=== PATIENT | female | born 1945 | race Caucasian/White ===

== ENCOUNTER 2022-12-04 11:36 | Outpatient (OUT) | payer MEDICARE, SELFPAY ==
[2022-12-04 12:27] LABS: Hematocrit 44.1 % (36.0-48.0); Hemoglobin 14.3 g/dL (12.0-16.0); Mean Corpuscular HGB Conc 32.4 g/dL (29.9-35.2); Mean Corpuscular Hemoglobin 29.9 pg (26.7-34.0); Mean Corpuscular Volume 92.3 fL (81.0-99.0); Mean Platelet Volume 10.7 fL (9.5-13.5); Platelet Count 165 10^3/uL (150-450); Red Blood Count 4.78 10^6/uL (4.20-5.40); Red Cell Distribution Width 13.1 % (11.0-15.0); White Blood Count 5.6 10^3/uL (4.0-11.0)
[2022-12-04 13:13] LABS: Bilirubin Urine NEGATIVE (NEGATIVE); Blood Urine MODERATE (NEGATIVE); Clarity Urine CLEAR (CLEAR); Color Urine YELLOW (YELLOW); Glucose Urine UA NEGATIVE (NEGATIVE); Ketones Urine NEGATIVE (NEGATIVE); Leukocyte Esterase Urine TRACE (NEGATIVE); Nitrite Urine NEGATIVE (NEGATIVE); Protein Urine NEGATIVE (NEG/TRACE); Urobilinogen Urine 0.2 EU/dL (0.2-1.0)
[2022-12-04 13:23] LABS: Bacteria Urine NONE SEEN #/HPF (NONE SEEN)
[2022-12-04 13:24] LABS: Mucus Urine NONE SEEN (NONE SEEN); Squamous Epithelial Cell Urine FEW #/LPF (NONE/RARE)
[2022-12-04 15:34] LABS: Albumin Level 3.9 g/dL (3.4-5.0); Anion Gap 12.6; BUN Creatinine Ratio 11.6; Calcium 9.3 mg/dL (8.5-10.1); Carbon Dioxide 29.3 mmol/L (21.0-32.0); Chloride 102 mmol/L (98-107); Estimated GFR (African America 57 (>=60); Estimated GFR (Non-African Ame 47 (>=60); Glucose 96 mg/dL (74-106); Phosphorus 3.5 mg/dL (2.6-4.7); Potassium 3.9 mmol/L (3.5-5.1); Sodium 140 mmol/L (136-145); Uric Acid 6.2 mg/dL (2.6-6.0)
[2022-12-05 11:09] LABS: PTH, Intact 37 pg/mL (15-65)
== END 2022-12-04 11:37 | disposition home or self-care (01) ==
LOC: LAB 11:44
PROVIDERS: PCP Family Medicine; Visit Provider Internal Medicine
DX: N18.30 Chronic kidney disease, stage 3 unspecified (principal); Q61.02 Congenital multiple renal cysts; N20.0 Calculus of kidney; I12.9 Hypertensive chronic kidney disease with stage 1 through stage 4 chronic kidney disease, or unspecified chronic kidney disease; N25.81 Secondary hyperparathyroidism of renal origin; R31.29 Other microscopic hematuria
CPT/HCPCS: 36415; 80069; 81001; 82306; 83735; 83970; 84550; 85027

== ENCOUNTER 2023-02-27 07:12 | Outpatient (RCR) | payer MEDICARE, SELFPAY ==
--- NOTE | 2023-02-20 08:43 | CR1_ITS ---
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
== END 2023-03-01 17:04 | disposition home or self-care (01) ==
LOC: CR 07:12
PROVIDERS: PCP Family Medicine; Visit Provider Internal Medicine
DX: Z95.5 Presence of coronary angioplasty implant and graft (principal)
CPT/HCPCS: 93798

== ENCOUNTER 2023-03-18 13:01 | Outpatient (OUT) | payer MEDICARE, SELFPAY ==
--- OUTSIDE RECORDS SUMMARY | 2023-03-18 13:12 | XMS_ITS | CCD ---
Author Name Unknown Address [email or web address] [place] [address] Organization [facility] Care Team Providers Care Logistics Analytics Manager Name Role Phone Jani Aguilera Unavailable Nicole Vargas Primary Care Provider China Noland Unavailable HARINI ROSA Referring Unavailable SAM, NICOLE MARTINEZ Primary Care Unavailable RUTH ANN GUTIERRES Attending Unavailable HARINI, ROSA Referring Unavailable SAM, NICOLE MARTINEZ Primary Care Unavailable SAM, DR RIVERA Primary Care Unavailable SAM, DR RIVERA Consulting Unavailable SAM, DR RIVERA Attending Unavailable SAM, DR RIVERA Admitting Unavailable ZIEBER, DR PEPPER Fuller Consulting Unavailable NADERER, DR ARY Jauregui Attending Unavailable NADERER, DR ARY Jauregui Admitting Unavailable NADERER, DR ARY Jauregui Consulting Unavailable SAM, DR RIVERA Primary Care Unavailable NEWATIA, TAMIE Consulting Unavailable DIAB ., NETTE Consulting Unavailable NEFCY, PETER Consulting Unavailable SHELLIE JENNINGS Attending Unavailable SHELLIE JENNINGS Admitting Unavailable SAM, DR RIVERA Primary Care Unavailable SHELLIE JENNINGS Consulting Unavailable SAM, DR RIVERA Consulting Unavailable SAM, DR RIVERA Attending Unavailable SAM, DR RIVERA Admitting Unavailable SAM, DR RIVERA Primary Care Unavailable HARINI, ROSA Admitting Unavailable VITORAMSALVADOR, ROSA Attending Unavailable ZIEBER, DR PEPPER Fuller Consulting Unavailable SAM, DR RIVERA Primary Care Unavailable HARINI, ROSA Consulting Unavailable Sam, MD Nicole Napier Primary Care Provider JOHANNA Jennings Attending Provider DO Tamiko Zhou Referring Provider Nicole Vargas MD Primary Care Provider Mary Dasilva RN Unavailable Unavailable Provider, Ordering Unavailable MD Nicole Vargas Primary Care Provider [phone] JOHANNA Jennings Attending Provider DO Tamiko Zhou Referring Provider MD Nani Calloway Attending Provider NANI CALLOWAY Attending Unavailable SAM, RUGEN MABALAY Primary Care Unavailable JACQUELINE CAMPOS Attending Unavailable NIRAJ ZHOU Referring Unavailable SAM, RUGEN MABALAY Primary Care Unavailable CALLOWAYNANI Referring Unavailable SAM, RUGEN MABALAY Primary Care Unavailable Mast, Wan Unavailable Nani Calloway Attending Unavailable Sam, Rugen M Primary Care Unavailable Calloway, Nani Admitting Unavailable [place], Rugen M Primary Care Unavailable Jacqueline Ellis Admitting Unavailable Jacqueline Ellis Attending Unavailable [place], Rugen M Primary Care Unavailable CallowayNani bass Admitting Unavailable Nani Calloway Attending Unavailable Shellie Jennings Attending Unavailable Sam, Rugen M Primary Care Unavailable Tamiko Zhou Referring Unavailable Shellie Jennings Admitting Unavailable BERNADINE DIAZ Attending Unavailable Allergies Allergy Classification Reported Allergen(s) Allergy Type Date of Onset Reaction(s) Facility (7 sources) Ibuprofen Drug Allergy Unknown [facility] Other (14 sources) pregabalin; 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: [PREGABALIN] Drug Allergy 1 Mental Status Change, Confusion [facility] (6 sources) Ibuprofen; 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: [IBUPROFEN] Drug Allergy 7 Intolerance, Other [facility] (3 sources) rofecoxib; 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: [ROFECOXIB] Drug Allergy 7 Swelling [facility] (6 sources) Sulfonamides (Antibiotic); 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: [SULFA (SULFONAMIDE ANTIBIOTICS)] Drug Allergy 7 Vomiting, GI Upset [facility] (1 source) Adhesive agent Drug allergy (disorder) 7 [facility] (1 source) Ibuprofen Drug Allergy 7 [facility] (1 source) pregabalin Drug Allergy 1 [facility] (1 source) rofecoxib Drug Allergy 6 [facility] (1 source) Trimethoprim Drug Allergy 1 [facility] (4 sources) Adhesive Tape Drug allergy rash [facility] Other (1 source) pregabalin Drug Allergy 3 [facility] Medications Current Medications Medication Drug Class(es) Dates Sig (Normalized) Sig (Original) acetaminophen 500 mg oral tablet (8 sources) Start: 01-15-2023 take 1 tablet by mouth once daily Acetaminophen (Tylenol Extra Strength) 500 mg Tablet Active 500 MG PO Daily January 15, 2023 12:00am take 2 tablets by mo uth every eight hours Acetaminophen ER 650 MG 2 tablets as nee ded Orally every 8 hrs Not-Taking/PRN take 2 tablets by mo uth every eight hours as needed Acetaminophen ER 650 MG 2 tablets as nee ded Orally every 8 hrs Active [id number] 200 actuat albuterol 0.09 mg/actuat metered dose inhaler (3 sources) beta2-Adrenergic Agonist Start: 05-31-2022 take 2 puff(s) by inhalation every four to six hours as needed Albuterol Sulfate HFA 108 (90 Base) MCG/ACT 2 puffs as needed Inhalation every 4-6 hours for 14 days May, Active Start: 01-02-2019 take 2 puff(s) by mo uth every six hours as needed VENTOLIN HFA 90 mcg/actuation inhaler INHALE 2 PUFFS BY MOUTH EVERY 6 HOURS NEEDED 5 01/02/2019 Active Comment on above: INHALE 2 PUFFS BY MO UTH EVERY 6 HOURS NEEDED alendronic acid 70 mg oral tablet (7 sources) Bisphosphonate Start: 3 take 70 mg by mouth every week Alendronate Active 70 MG PO every week January 15, 2023 12:00am s Start: 05-15-2021 End: 05-15-2022 take 1 tablet by mouth every week alendronate (FOSAMAX) 70 mg tablet Take 70 mg by mouth one time a week. 0 08/08/2021 Active take 75 mL by mouth in the morning alendronate (Fosamax) 70 mg/75 mL solution Take 75 mL (70 mg) by mouth every 7 days. Take in the morning with a full glass of water, on an empty stomach, and do not take anything else by mouth or lie down for the next 30 min. 0 Active Comment on above: Take 70 mg by mouth one time a week. aspirin 81 mg chewable tablet (14 sources) Platelet Aggregation Inhibitor, Nonsteroidal Anti-inflammatory Drug Start: 01-18-2023 take 1 tablet by mouth once daily Aspirin (Children's Aspirin) 81 mg Tablet,Chewable Active 81 MG PO Daily 0 January 18, 2023 12:00am Start: 01-15-2023 End: 01-22-2023 take 1 tablet by mouth once daily in the morning Aspirin (Елена Aspirin) 325 mg Tablet Discontinued 325 MG PO Every morning January 15, 2023 12:00am January 18, 2023 10:56am take 1 tablet by flori th once daily aspirin 81 mg EC tablet Take 1 tablet (81 mg) by mouth once daily. 0 Active Comment on above: Take 325 mg by mouth once daily. benzonatate 100 mg oral capsule (2 sources) Non-narcotic Antitussive Start: 3 take 1 capsule by mouth every eight hours Tessalon Perles 100 MG 1 capsule as needed Orally Three times a day for 7 days May, Active carvedilol 6.25 mg oral tablet (12 sources) alpha-Adrenergic Stas, beta-Adrenergic Stas Start: 3 take 6.125 mg by mouth twice daily Carvedilol Active 6.125 MG PO Twice daily January 15, 2023 12:00am Start: 04-29-2019 take 1 tablet by flori th twice daily carvedilol (COREG) 6.25 mg tablet Take 6.25 mg by mouth twice daily. 0 04/29/2019 Active Comment on above: Take 6.25 mg by mout h twice daily. cetirizine hydrochloride 10 mg oral tablet (8 sources) Histamine-1 Receptor Antagonist Start: 01-16-20 take 1 tablet by mouth once daily Cetirizine (Zyrtec) 10 mg Tablet Active 10 MG PO Daily January 15, 2023 12:00am 12 hr cetirizine hydrochloride 5 mg / pseudoephedrine hydrochloride 120 mg extended release oral tablet (2 sources) alpha-Adrenergic Agonist, Histamine-1 Receptor Antagonist take 1 tablet by mouth twice daily cetirizine-pseudoephed rine (ZyrTEC-D) 5-120 mg 12 hr tablet Take 1 tablet by mouth 2 times a day. 0 Active cholecalciferol 0.125 mg oral tablet (8 sources) Vitamin D Start: 01-16-20 take 1 tablet by mouth once daily Cholecalciferol (Vitamin D3) (Vitamin D3) 125 mcg (5,000 unit) Tablet Active 125 MCG PO every day at noon January 15, 2023 12:00am Vitamin D3 125 M CG (5000 UT) as directed Orally Active Vitamin D3 125 M CG (5000 UT) as directed Orally Active DULoxetine 60 mg delayed release oral capsule (12 sources) Serotonin and Norepinephrine Reuptake Inhibitor Start: 01-15-2023 take 1 capsule by mouth once daily at bedtime Duloxetine (Cymbalta) 60 mg capsule,delayed release(DR/EC) Active 60 MG PO Daily at bedtime January 15, 2023 12:00am Comment on above: Take 60 mg by mouth once daily. folic acid 1 mg oral tablet (12 sources) Start: 01-15-2023 take 1 mg by mouth once daily in the morning Folic Acid Active 1 MG PO Every morning January 15, 2023 12:00am Comment on above: Take 1 mg by mouth once daily. letrozole 2.5 mg oral tablet (14 sources) Aromatase Inhibitor Start: 01-15-2023 take 2.5 mg by mouth once daily in the morning Letrozole Active 2.5 MG PO Every morning January 15, 2023 12:00am Start: 01-24-2021 End: 05-15-2022 take 1 tablet by mouth once daily letrozole (FEMARA) 2.5 mg tablet Take 1 tablet by mouth once daily. 90 tablet 3 05/15/2022 Active Comment on above: Take 1 tablet by flori th once daily Take 1 tablet by flori th once daily. levothyroxine sodium 0.112 mg oral tablet (13 sources) l-Thyroxine Start: take 112 ug by mouth once daily in the morning Levothyroxine Active 112 MCG PO Every morning January 15, 2023 12:00am take 1 tablet by flori th once daily in the morning Levothyroxine Sodium 112 MCG 1 tablet in the morning on an empty stomach Orally Once a day Active levothyroxine (T irosint) 112 mcg capsule Take by mouth once daily in the morning. Take before meals. 0 Active End: 01-22-2023 take 1 capsule by mouth once daily before mealtime levothyroxine (Tirosint) 25 mcg capsule Take 1 capsule (25 mcg) by mouth once daily in the morning. Take before meals. 0 01/22/2023 Discontinued (Other) Comment on above: Take 112 mcg by mout h once daily. montelukast 10 mg oral tablet (12 sources) Leukotriene Receptor Antagonist Start: 07-05-19 take 10 mg by mouth once daily at bedtime Montelukast Active 10 MG PO Daily at bedtime January 15, 2023 12:00am Comment on above: Take 10 mg by mouth daily at bedtime. nitroglycerin 0.4 mg sublingual tablet (4 sources) Nitrate Vasodilator Start: 01-19-20 nitroglycerin (Nitrostat) 0.[address] 1 tablet (0.4 mg) under the tongue every 5 minutes if needed. 0 01/18/2023 Active Nitroglycerin 0. 4 MG as directed Sublingual Active [place] 3-6-9 - (3 sources) [place] 3-6-9 - as directed Orally Active omega-3 acid ethyl esters (long term) 1000 mg oral capsule (2 sources) omega-3 acid eth yl esters (Lovaza) 1 gram capsule Take 1 capsule (1 g) by mouth once daily. 0 Active [place]-3 Fatty Acids (1 source) Start: 01-16-20 take 1000 mg by mouth twice daily [place]-3 Fatty Acids Active 1000 MG PO Twice daily January 15, 2023 12:00am predniSONE 20 mg oral tablet (1 source) Start: 06-01-19 take 1 tablet by mouth every twelve hours prednisone 20 MG 1 tablet Orally Twice a day for 5 days May, Active ramipril 10 mg oral capsule (12 sources) Angiotensin Converting Enzyme Inhibitor Start: 01-16-20 take 10 mg by mouth once daily Ramipril Active 10 MG PO every day at noon January 15, 2023 12:00am Comment on above: Take 10 mg by mouth once daily. rosuvastatin calcium 20 mg oral tablet (12 sources) HMG-CoA Reductase Inhibitor Start: 05-04-19 take 20 mg by mouth once daily at bedtime Rosuvastatin Active 20 MG PO Daily at bedtime January 15, 2023 12:00am Comment on above: Take 20 mg by mouth once daily. For 30 days ticagrelor 90 mg oral tablet (4 sources) Start: 01-19-20 take 1 tablet by mouth twice daily Ticagrelor (Brilinta) 90 mg Tablet Active 90 MG PO Twice daily 180 90 January 18, 2023 12:00am traMADol hydrochloride 50 mg oral tablet (12 sources) Opioid Agonist Start: 01-16-20 take 50 mg by mouth four times daily Tramadol Active 50 MG PO Four times daily January 15, 2023 12:00am take 1 tablet by flori th every six hours as needed traMADol (Ultram) 50 mg tablet Take 1 tablet (50 mg) by mouth every 6 hours if needed for severe pain (7 - 10). 0 Active Comment on above: Take 50 mg by mouth as needed. Completed/Discontinued Medications Medication Drug Class(es) Dates Sig (Normalized) Sig (Original) amitriptyline hydrochloride 10 mg oral tablet (2 sources) Tricyclic Antidepressant Start: 10-30-2016 amitriptyline (ELAVIL) 10 mg tablet Indications: Malignant neoplasm of right female breast, unspecified estrogen receptor status, unspecified site of breast (HCC) Take 10 mg by mouth. 0 10/30/2016 Active Comment on above: Take 10 mg by mouth. amoxicillin 500 mg oral capsule (9 sources) Penicillin-class Antibacterial Amoxicillin 500 MG 4 capsules Orally BEFORE DENTAL PROCEDURE Not-Taking/PRN ASCORBIC ACID/MULTIVIT-MIN (EMERGEN-C ORAL) (2 sources) ASCORBIC ACID/MULTIVIT-MIN (EMERGEN-C ORAL) Take by mouth. 0 Active Comment on above: Take by mouth. Baclofen (2 sources) gamma-Aminobutyric Acid-ergic Agonist BACLOFEN ORAL Take by mouth. 0 Active Comment on above: Take by mouth. cholecalciferol, vitamin D3, (VITAMIN D3 ORAL) (4 sources) Start: 12-01-2020 cholecalciferol, vitamin D3, (VITAMIN D3 ORAL) Refills(s) 0 0 12/01/2020 Active take 500 [IU] by mouth once emi y cholecalciferol, vitamin D3, (VITAMIN D3 ORAL) Take 500 Units by mouth once daily. 0 Active Comment on above: Refills(s) 0 cyclobenzaprine hydrochloride 10 mg oral tablet (2 sources) Muscle Relaxant Start: 07-11-2018 cyclobenzaprine (FLEXERIL) 10 mg tablet Take 10 mg by mouth as needed. 3 07/11/2018 Active Comment on above: Take 10 mg by mouth as needed. furosemide 20 mg oral tablet (4 sources) Loop Diuretic Start: 03-15-2020 furosemide (LASIX) 20 mg tablet take 1 tablet by flori th every twenty-four hours Furosemide 40 MG 1 tablet Orally Once a day Active Magnesium (2 sources) MAGNESIUM ORAL T delia by mouth. 0 Active Comment on above: Take by mouth. oxaprozin 600 mg oral tablet (2 sources) Nonsteroidal Anti-inflammatory Drug Start: 0 take 1 tablet by mouth twice daily oxaprozin (DAYPRO) 600 mg tablet Take 600 mg by mouth twice daily. 0 04/22/2019 Active Comment on above: Take 600 mg by mouth twice daily. Potassium (2 sources) POTASSIUM ORAL T delia by mouth. 0 Active Comment on above: Take by mouth. Probiotic Acidophilus - (7 sources) Probiotic Acidophilus - as directed Orally Not-Taking/PRN Probiotic Acidop hilus - as directed Orally Active saccharomyces boulardii 250 mg oral capsule (2 sources) End: 01-22-2023 take 1 capsule by mouth once daily saccharomyces boulardii (Florastor) 250 mg capsule Take 1 capsule (250 mg) by mouth once daily. 0 01/22/2023 Discontinued (Other) Problems Active Problems Problem Classification Problem Date Documented Date Episodic/Chronic Acute bronchitis (1 source) Acute bronchitis, unspecified; 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: [ACUTE BRONCHITIS UNSPECIFIED] Onset: 3 Episodic Administrative/social admission (1 source) Persons encountering health services in other specified circumstances Episodic Calculus of urinary tract (10 sources) Kidney stone; 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: [Calculus of kidney] Onset: 3 Episodic Cancer of breast (3 sources) Malignant neoplasm of female breast; 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: [Malignant neoplasm of unspecified site of right female breast] Onset: 7 04-02-2016 Chronic Cancer of breast (3 sources) History of malignant neoplasm of breast; 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: [Personal history of malignant neoplasm of breast] Onset: 9 03-28-2018 Episodic Chronic kidney disease (7 sources) Chronic kidney disease stage 3; 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: [Chronic kidney disease, stage 3 unspecified] Chronic Chronic obstructive pulmonary disease and bronchiectasis (6 sources) Acute exacerbation of chronic obstructive airways disease; 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: [Chronic obstructive pulmonary disease with (acute) exacerbation] Chronic Chronic obstructive pulmonary disease and bronchiectasis (4 sources) Bronchitis, not specified as acute or chronic; 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: [BRONCHITIS NOT SPEC ACUTE/CHRON] Onset: 3 Episodic Congestive heart failure; nonhypertensive (1 source) Acute systolic (congestive) heart failure; 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: [ACUTE SYSTOLIC HEART FAILURE] Onset: 3 Chronic Coronary atherosclerosis and other heart disease (20 sources) Atherosclerotic heart disease of [place] coronary artery without angina pectoris; 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: [Angina pectoris] Onset: 3 12-25-2022 Chronic Diabetes mellitus without complication (1 source) Impaired fasting glucose; 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: [IMPAIRED FASTING GLUCOSE] Onset: 3 Episodic Disorders of lipid metabolism (13 sources) Pure hypercholesterolemia, unspecified; 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: [Pure hyperglyceridemia] Onset: 3 12-25-2022 Chronic Essential hypertension (9 sources) Benign essential hypertension; 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: [Essential (primary) hypertension] Onset: 3 12-25-2022 Chronic Genitourinary congenital anomalies (9 sources) Cyst of kidney; 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] Chronic Genitourinary symptoms and ill-defined conditions (2 sources) Other microscopic hematuria Episodic Hypertension with complications and secondary hypertension (14 sources) Chronic kidney disease due to hypertension; 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: [Hypertensive chronic kidney disease with stage 1 through stage 4 chronic kidney disease, or unspecified chronic kidney disease] Onset: 3 Chronic Immunizations and screening for infectious disease (7 sources) Contact with and (suspected) exposure to other viral communicable diseases; 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: [Encounter for immunization] Episodic Malaise and fatigue (1 source) Other fatigue; 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: [OTHER FATIGUE] Onset: 3 Episodic Menopausal disorders (1 source) Hormone replacement therapy; 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: [HORMONE REPLACEMENT THERAPY] Onset: 3 Episodic Open wounds of head; neck; and trunk (1 source) Laceration without foreign body of left ear, initial encounter Episodic Osteoarthritis (4 sources) Unspecified osteoarthritis, unspecified site; 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: [Degenerative joint disease involving multiple joints] Onset: 3 Chronic Other aftercare (1 source) Other prison (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; 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: [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 THERAPY] Onset: 3 Episodic Other bone disease and musculoskeletal deformities (1 source) Osteopenia; 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: [Other specified disorders of bone density and structure, unspecified site] Episodic Other circulatory disease (1 source) History of angioplasty; 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: [Peripheral vascular angioplasty status with implants and grafts] 01-22-2023 Chronic Other circulatory disease (2 sources) Peripheral vascular angioplasty status with implants and grafts; 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: [Peripheral vascular angioplasty status with implants and grafts] Onset: 3 Chronic Other connective tissue disease (1 source) Fibromyalgia; 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: [FIBROMYALGIA] Onset: 3 Episodic Other connective tissue disease (2 sources) Pain in right leg; 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: [Pain in right leg] Onset: 3 Episodic Other connective tissue disease (2 sources) Other specified soft tissue disorders; 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: [Other specified soft tissue disorders] Onset: 3 Episodic Other connective tissue disease (1 source) Pain in right lower limb; 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: [Pain in right leg] Onset: 3 Episodic Other diseases of kidney and ureters (7 sources) Secondary hyperparathyroidism; 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: [Secondary hyperparathyroidism of renal origin] Chronic Other diseases of kidney and ureters (2 sources) Secondary hyperparathyroidism of renal origin Chronic Other gastrointestinal disorders (1 source) Irritable bowel syndrome without diarrhea; 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: [IRRITABLE BOWEL SYND W/O DIARRHEA] Onset: 3 Chronic Other hereditary and degenerative nervous system conditions (1 source) Degenerative disease of nervous system, unspecified; 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: [DEGENERATIVE DZ NERVOUS SYSTEM UNS] Onset: 2 Chronic Other lower respiratory disease (1 source) Shortness of breath; 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: [SHORTNESS OF BREATH] Onset: 3 Episodic Other nutritional; endocrine; and metabolic disorders (4 sources) Body mass index 40+ - severely obese; 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: [Morbid (severe) obesity due to excess calories] Onset: 7 07-17-2016 Chronic Other nutritional; endocrine; and metabolic disorders (2 sources) Body mass index (BMI) 40.0-44.9, adult; 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: [Body mass index (BMI) 40.0-44.9, adult ([facility])] Onset: 3 Chronic Other screening for suspected conditions (not mental disorders or infectious disease) (17 sources) Patient encounter status; 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: [Encounter for other screening for malignant neoplasm of breast] Onset: 3 Episodic Residual codes; unclassified (1 source) Acquired absence of other genital organ(s); 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: [ACQUIRED ABSENCE OTH GENITAL ORGANS] Onset: 3 Episodic Residual codes; unclassified (1 source) Acquired absence of other specified parts of digestive tract; 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: [ACQ ABSENCE OTH PART DIGESTV TRACT] Onset: 3 Episodic Residual codes; unclassified (1 source) Acquired absence of both cervix and uterus; 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: [ACQUIRED ABSENCE BOTH CERVIX AND UTERUS] Onset: 3 Episodic Residual codes; unclassified (1 source) History of cardiac catheterization; 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: [Other specified postprocedural states] 01-18-2023 Episodic Residual codes; unclassified (2 sources) Other specified postprocedural states; 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: [Other postprocedural status] Onset: 3 01-18-2023 Episodic Residual codes; unclassified (2 sources) Edema, unspecified; 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: [Edema, unspecified] Onset: 3 Episodic Screening and history of mental health and substance abuse codes (1 source) Personal history of nicotine dependence; 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: [PERSONAL HISTORY OF NICOTINE DEPEND] Onset: 3 Episodic Thyroid disorders (2 sources) Thyrotoxicosis, unspecified without thyrotoxic crisis or storm; 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: [Hypothyroidism, unspecified] Onset: 3 Chronic Unclassified (1 source) CONTACT W/AND (SUSP) EXPOS COVID-19; 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: [CONTACT W/AND (SUSP) EXPOS COVID-19] Onset: 3 Unclassified (1 source) COUGH, UNSPECIFIED; 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: [COUGH, UNSPECIFIED] Onset: 3 Unclassified (1 source) Encounter for preprocedural laboratory examination; 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: [Encounter for preprocedural laboratory examination] Onset: 3 Past or Other Problems Problem Classification Problem Date Documented Da te Episodic/Chronic Chronic kidney disease (4 sources) Chronic kidney disease; 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: [CHRONIC KIDNEY DISEASE STAGE 3A] Onset: 06-13-2022 Nonspecific chest pain (5 sources) Chest pain, unspecified; 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: [CHEST PAIN UNSPECIFIED] Onset: 06-10-2022 Episodic Residual codes; unclassified (4 sources) Family history of ischemic heart disease and other diseases of the circulatory system; 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: [FAM HX ISCHEMIC HRT DZ OTH DZ CIRC] Onset: 10-31-2021 Episodic Unclassified (2 sources) Onset: 12-25-2022 Resolved: 01-22-2023 12-25-2022 Results Test Name Value Interpretation Reference Range Facility US venous duplex LE RTon US venous duplex LE RT [facility] [place] [address] Ultrasound Report Signed Patient: Katarina Camara MR#: [id number] 51 : 1945 Acct:[id number] Age/Sex: 77 / F ADM Date: 02/05/23 Loc: Room: Type: [facility] Attending Dr: Jacqueline Campos APRN Ordering Provider: Jacqueline Campos APRN Date of Service: 02/05/23 US/US venous duplex LE RT: R60.9, Z95.820, M79.604, M79.089 Copies to: Jacqueline Campos APRN RIGHT LOWER EXTREMITY VENOUS DUPLEX INDICATION: Pain and swelling in the right leg Unilateral right lower extremity venous duplex Doppler study was obtained utilizing B-mode, color- flow and spectral Doppler. FINDINGS: The right common femoral, femoral, and popliteal veins showed adequate compressibility, color-flow and augmentation. The right posterior tibial and peroneal veins were compressible, as well as proximal greater saphenous vein. The contralateral left common femoral vein was compressible with color-flow and augmentation. Technologist worksheet states that the patient had recent cardiac catheterization in the right groin. There is some hematoma noted anterior to the right common femoral artery with no evidence of pseudoaneurysm at this time. US/US venous duplex LE RT IMPRESSION: NO EVIDENCE OF DEEP VENOUS THROMBOSIS IN THE RIGHT LOWER EXTREMITY. NO SUPERFICIAL THROMBOPHLEBITIS WAS NOTED. Impression dictated by: Jose Eduardo Vallejo M.D.02/06/2023 9:55 AM Dictation Location: [place] [address] Tech: Jahaira Michelle Transcribed By: ITALO 02/06/23954 Dictated By: Jose Eduardo Vallejo MD 02/06/23953 Signed By: 02/06/23954 Normal [facility] Alanine aminotransferase [En zymatic activity/volume] in Serum or PlasmaOrdered By: Tamiko Zhou on 01-18-2023 ALT [Catalytic activity/Vol] 12 U/L 7-52 [facility] Albumin [Mass/volume] in Ser um or Plasma by Bromocresol green (BCG) dye binding methoOrdered By: Tamiko Zhou on 01-18-2023 Albumin BCG dye [Mass/Vol] 3.6 g/dL 3.5-5.7 [facility] Alkaline phosphatase [Enzyma tic activity/volume] in Serum or PlasmaOrdered By: Tamiko Zhou on 01-18-2023 ALP [Catalytic activity/Vol] 59 U/L 34-104 [facility] Aspartate aminotransferase [ Enzymatic activity/volume] in Serum or PlasmaOrdered By: Tamiko Zhou 01-18-2023 AST [Catalytic activity/Vol] 18 U/L 13-39 [facility] Bilirubin.total [Mass/volume ] in Serum or PlasmaOrdered By: Tmaiko Zhou on 01-18-2023 Bilirubin [Mass/Vol] 1.1 mg/dL 0.3-1.0 [facility] Calcium [Mass/volume] in Ser um or PlasmaOrdered By: Tamiko Zhou 01-18-2023 Calcium [Mass/Vol] 8.1 mg/dL 8.6-10.3 [facility] Carbon dioxide, total [Moles /volume] in Serum or PlasmaOrdered By: Tamiko Zhou on 01-18-2023 CO2 [Moles/Vol] 27.6 mmol/L 21.0-31.0 [facility] Chloride [Moles/volume] in S live or PlasmaOrdered By: Tamiko Zhou on 01-18-2023 Chloride [Moles/Vol] 101 mmol/L 98-107 [facility] Comprehensive Metabolic Pane tee 01-18-2023 Albumin [Mass/Vol] 3.6 g/dL Normal 3.5-5.7 [facility] Comment on above: Performed By: #### C MP ####[address] [place] [address] [facility] Albumin/Globulin [Mass ratio] 1.7 {ratio} Normal [facility] Comment on above: Performed By: #### C MP ####[address] [place] [address] [facility] ALP [Catalytic activity/Vol] 59 U/L Normal 34-104 [facility] Comment on above: Performed By: #### C MP ####[address] [place] [address] [facility] ALT [Catalytic activity/Vol] 12 U/L Normal 7-52 [facility] Comment on above: Performed By: #### C MP ####[address] [place] [address] [facility] Anion gap [Moles/Vol] 10.7 mmol/L Normal 6.0-15.0 [facility] Comment on above: Performed By: #### C MP ####[address] [address] [facility] AST [Catalytic activity/Vol] 18 U/L Normal 13-39 [facility] Comment on above: Performed By: #### C MP ####[address] [place] [address] [facility] Bilirubin [Mass/Vol] 1.1 mg/dL High 0.3-1.0 [facility] Comment on above: Performed By: #### C MP ####[address] [place] [address] [facility] Calcium [Mass/Vol] 8.1 mg/dL Low 8.6-10.3 [facility] Comment on above: Performed By: #### C MP ####[facility] [place] [address] [facility] Chloride [Moles/Vol] 101 mmol/L Normal 98-107 [facility] Comment on above: Performed By: #### C MP ####[address] [place] [id number] [facility] CO2 [Moles/Vol] 27.6 mmol/L Normal 21.0-31.0 [facility] Comment on above: Performed By: #### C MP ####[id number] [facility] Creatinine [Mass/Vol] 0.84 mg/dL Normal 0.60-1.20 [facility] Comment on above: Performed By: #### C MP ####[id number] [facility] Creatinine Clr Calc Pharmacy 64.28 [facility] Comment on above: Result Comment: PERF ORMED BY: [facility] [address] [facility] [place] [place] [address] PATHOLOGIST LACE WINDER SHELLI CHARLES M.D. Performed By: #### C MP ####[place] [id number] [facility] GFR/1.73 sq M.predicted MDRD (S/P/Bld) [Vol rate/Area] mL/min/{1.73_m2} [facility] Comment on above: Performed By: #### C MP ####[id number] [facility] Globulin (S) [Mass/Vol] 2.1 g/dL [facility] Comment on above: Performed By: #### C MP ####[place] [id number] [facility] Glucose [Mass/Vol] 115 mg/dL High 70-100 [facility] Comment on above: Result Comment: [place]ears Glucose Reference Range is dependent on time and content of last meal. Glucose of more than 200 mg/dL in a nonstressed, ambulatory subject supports the diagnosis of Diabetes Mellitus. ADA recommended reference range Performed By: #### C MP ####[address] [place] [address] [facility] Potassium [Moles/Vol] 3.3 mmol/L Low 3.5-5.1 [facility] Comment on above: Performed By: #### C MP ####[address] [place] [address] [facility] Protein [Mass/Vol] 5.7 g/dL Low 6.4-8.9 [facility] Comment on above: Performed By: #### C MP ####[address] [address] [facility] Sodium [Moles/Vol] 136 mmol/L Normal 136-145 [facility] Comment on above: Performed By: #### C MP ####[address] [place] [address] [facility] Urea nitrogen [Mass/Vol] 7 mg/dL Normal 7-25 [facility] Comment on above: Performed By: #### C MP ####[address] [address] [facility] Creatinine [Mass/volume] in Serum or PlasmaOrdered By: Tamiko Zhou on 01-18-2023 Creatinine [Mass/Vol] 0.84 mg/dL 0.60-1.20 [facility] ECG 12 lead ECGon 01-18-2023 ECG 12 lead ECG [facility] Main [place] [address] [place] [address] Electrocardiograph Report Signed Patient: Katarina Camara MR#: [id number] [birth year] : 1945 Acct:[id number] Age/Sex: 77 / F ADM Date: 01/17/23 Loc: Room: Type: [facility] Attending Dr: Nani Calloway MD Ordering Provider: Tamiko Zhou DO Date of Service: 01/18/23 ECG/ECG 12 lead ECG: Post Angioplasty Procedure in AM Copies to: Test Reason : Blood Pressure : / mmHG Vent. Rate : 081 BPM Atrial Rate : 081 BPM P-R Int : 132 ms QRS Dur : 088 ms QT Int : 378 ms P-R-T Axes : 050 -29 102 degrees QTc Int : 439 ms Normal sinus rhythm Nonspecific ST and T wave abnormality Abnormal ECG When compared with ECG of 15-JAN-2023 11:42, No significant change was found Confirmed by GARY DOLAN MD ([id number]) on 01/19/2023 7:32:33 AM Referred By: Electronically Signed By:GARY DOLAN MD Transcribed By: MUS Signed By Gary Dolan MD 1 03/21/22 0732 Normal [facility] Globulin Calc (S) [Mass/Vol] Ordered By: Tamiko Zhou on 01-18-2023 Globulin (S) [Mass/Vol] 2.1 g/dL [facility] Glucose [Mass/volume] in Ser um or PlasmaOrdered By: Tamiko Zhou on 01-18-2023 Glucose [Mass/Vol] 115 mg/dL 70-100 [facility] Comment on above: ADA recommended refe rence rangeRandom Glucose Reference Range is dependent on time and content of last meal. Glucose of more than 200 mg/dL in a nonstressed, ambulatory subject supports the diagnosis of Diabetes Mellitus. No Panel InformationOrdered By: Tamiko Zhou on 01-18-2023 Estimated GFR (CKD-EPI) > 60.0 mL/Min [facility] Creatinine Clearance (Chem 64.28 [facility] Potassium [Moles/volume] in Serum or PlasmaOrdered By: Tamiko Zhou on 01-18-2023 Potassium [Moles/Vol] 3.3 mmol/L 3.5-5.1 [facility] Protein [Mass/volume] in Ser um or PlasmaOrdered By: Tamiko Zhou on 01-18-2023 Protein [Mass/Vol] 5.7 g/dL 6.4-8.9 [facility] Serum or plasma albumin/glob ulin mass ratioOrdered By: Tamiko Zhou on 01-18-2023 Albumin/Globulin [Mass ratio] 1.7 {ratio} [facility] Serum or plasma anion gap de terminationOrdered By: Tamiko Zhou on 01-18-2023 Anion gap [Moles/Vol] 10.7 mmol/L 6.0-15.0 [facility] Sodium [Moles/volume] in Ser um or PlasmaOrdered By: Tamiko Zhou on 01-18-2023 Sodium [Moles/Vol] 136 mmol/L 136-145 [facility] Troponin I High Sensitivityo n 01-18-2023 Troponin I High Sensitivity 91.0 pg/mL Off scale high 0.0-15.0 [facility] Comment on above: Result Comment: Crit ical Result : Called to and read back by: QUIANA HUERTA at: 01/18/2023 07:02:29 by:[id number] PERFORMED BY: [address] [address] PATHOLOGIST LACE WINDER SHELLI CHARLES M.D. Performed By: #### H S TROP ####[address] [place] [address] [facility] Troponin I.cardiac [Mass/vol ume] in Serum or Plasma by Detection limit <= 0.01 ng/Ordered By: Tamiko Zhou on 01-18-2023 Troponin I.cardiac DL <= 0.01 ng/mL [Mass/Vol] 91.0 pg/mL 0.0-15.0 [facility] Comment on above: Critical Result : Ca lled to and read back by: QUIANA HUERTA at: 01/18/2023 07:02:29 by:[id number] Urea nitrogen [Mass/volume] in Serum or PlasmaOrdered By: Tamiko Zhou on 01-18-2023 Urea nitrogen [Mass/Vol] 7 mg/dL 7 [facility] ABO/Rh Retypeon 01-17-2023 ABO/RH Recheck Result Positive Normal [facility] Comment on above: Result Comment: PERF ORMED BY: [address] [place] [address] PATHOLOGIST LACE WINDER SHELLI CHARLES M.D. CT abdomen pelvis wo conon 1 03-19-2022 CT abdomen pelvis wo con [facility] Main [place] [address] [place] [address] Scan Report Signed Patient: Katarina Camara MR#: [id number] 51 : 1945 Acct:[id number] Age/Sex: 77 / F ADM Date: 01/17/23 Loc: Room: 7O1038-6 Type: [facility] Attending Dr: Nani Calloway MD Copies to: Nani Calloway MD, [facility] Ordering Provider: Nani Calloway MD, [facility] Date of Service: 01/17/23 CT/CT abdomen pelvis wo con: post cath, back/abdominal pain CT ABDOMEN AND PELVIS WITHOUT INTRAVENOUS CONTRAST: CLINICAL HISTORY: Post heart cath with right groin hematoma. Right lower back and right-sided abdominal pain. COMPARISON: None TECHNIQUE: Spiral images were obtained through the abdomen and pelvis without intravenous contrast. This CT exam was performed using one or more following dose reduction techniques: Automated exposure control, adjustment of the mA and/or kV according to patient size, or use of iterative reconstruction technique. FINDINGS: Lung Bases: [Mild bibasilar atelectasis/scarring.] Organs:Gallbladder has been removed. Liver spleen pancreas and adrenal glands appear unremarkable. Cystic changes involving both kidneys. Previously given IV contrast is seen within the collecting systems. Abdominal aorta appears normal caliber.[ GI: Stomach is grossly unremarkable. Small bowel appears nondilated. Sigmoid diverticulosis.[ Pelvis:[Suboptimal evaluation due to streak hardware artifact from the patient's bilateral hip prostheses. Presumably given IV contrast is seen within urinary bladder. Uterus appears to been removed. No adnexal mass.] Inflammatory changes are seen within the right groin consistent with the history extending superiorly along the iliopsoas muscle into the pelvis. No definitive collection is seen. Peritoneum/Retroperitoneu m:No free air, free fluid or lymphadenopathy.[ Abd wall/Bones:Abdominal wall demonstrates no acute findings. Osseous structures are demonstrate degenerative change.[ CT/CT abdomen pelvis wo con IMPRESSION: Inflammatory changes involving the right groin extending along the right iliopsoas muscle consistent with the history. No measurable collection is seen to suggest hematoma. Impression dictated by: Judd Gonzalez Jr., D.OJuan01/17/2023 7:40 PM Dictation Location: [place] [address] Transcribed By: [facility] 01/17/231939 Dictated By: Judd Gonzalez Jr, DO 01/17/231933 Signed By: 01/17/231939 Normal [facility] ECG 12 lead ECGon 01-17-2023 ECG 12 lead ECG [facility] Main [place] [id number] Electrocardiograph Report Signed Patient: Katarina Camara MR#: [id number] 51 : 1945 Acct:[id number] Age/Sex: 77 / F ADM Date: 01/17/23 Loc: Room: Type: [facility] Attending Dr: Nani Calloway MD Ordering Provider: Tamiko Zhou DO Date of Service: 01/17/23 ECG/ECG 12 lead ECG: Post Angioplasty Procedure Copies to: Test Reason : Blood Pressure : / mmHG Vent. Rate : 068 BPM Atrial Rate : 068 BPM P-R Int : 152 ms QRS Dur : 086 ms QT Int : 420 ms P-R-T Axes : 069 -13 123 degrees QTc Int : 446 ms Normal sinus rhythm Abnormal ECG No previous ECGs available Confirmed by GARY DOLAN MD ([id number]) on 01/19/2023 7:32:27 AM Referred By: Electronically Signed By:GARY DOLAN MD Transcribed By: MUS Signed By Gary Dolan MD 1 03/21/22 0732 [facility] Hematocrit Auto (Bld) [Volum e fraction]Ordered By: Tamiko Zhou on 01-17-2023 Hematocrit (Bld) [Volume fraction] 40.6 % 34.0-46.4 [facility] Hemoglobin [Mass/volume] in BloodOrdered By: Tamiko Zhou on 01-17-2023 Hemoglobin (Bld) [Mass/Vol] 13.4 g/dL 11.8-15.4 [facility] Hemoglobin and Hematocriton 01-17-2023 Hematocrit (Bld) [Volume fraction] 40.6 % Normal 34.0-46.4 [facility] Comment on above: Result Comment: PERF ORMED BY: [address] [address] PATHOLOGIST LACE WINDER SHELLI CHARLES M.D. Performed By: #### H H ####[facility] [id number] [place] [id number] [facility] Hemoglobin (Bld) [Mass/Vol] 13.4 g/dL Normal 11.8-15.4 [facility] Comment on above: Performed By: #### H H ####[facility] Type and Screenon 01-17-2023 ABO and Rh group Nom (Bld) Blood group O Rh(D) positive Normal [facility] Activated partial thrombopla stin time (aPTT) in platelet poor plasma by coagulation aOrdered By: Nani Calloway on 01-15-2023 aPTT Coag (PPP) [Time] 26.9 s 25.1-36.5 [facility] Comment on above: A hematocrit value g reater than 55% may lead to inaccurate results in coagulation testing. Patients having hematocrit values >55% require a special collection tube for coagulation studies. Please contact the laboratory at [phone] for redraw instructions. Basophils Auto (Bld) [#/Vol] Ordered By: Nani Calloway on 01-15-2023 Basophils (Bld) [#/Vol] 0.0 10*3/uL 0.0-0.2 [facility] Basophils/100 WBC Auto (Bld) Ordered By: Nani Calloway on 01-15-2023 Basophils/100 WBC (Bld) 0.6 % . [facility] Blood Urea Nitrogenon 2022 Urea nitrogen [Mass/Vol] 9 mg/dL Normal 7-25 [facility] Comment on above: Performed By: #### P P, BUN, CBC, CREAT, LIPID, LYTES #### [facility] [address] Carbon dioxide, total [Moles /volume] in Serum or PlasmaOrdered By: Nani Calloway on 01-15-2023 CO2 [Moles/Vol] 29.9 mmol/L 21.0-31.0 [facility] Chloride [Moles/volume] in S live or PlasmaOrdered By: Nani Calloway on 01-15-2023 Chloride [Moles/Vol] 105 mmol/L 98-107 [facility] Cholesterol [Mass/volume] in Serum or PlasmaOrdered By: Nani Calloway on 01-15-2023 Cholesterol [Mass/Vol] 155 mg/dL 140-200 [facility] Comment on above: Chol less than 200 m g/dl low riskChol 201-239 mg/dl borderline riskChol 240 mg/dl and greater high risk Cholesterol in LDL Calc [Mas s/Vol]Ordered By: Nani Calloway on 01-15-2023 Cholesterol in LDL [Mass/Vol] 70 mg/dL 0-100 [facility] Comment on above: LDL ATP III CLASSIFI CATIONLDL less than 100 mg/dL OptimalLDL 100-129 mg/dL Near or above optimalLDL 130-159 mg/dL Borderline highLDL 160-189 mg/dL HighLDL greater than 189 mg/dL Very high Cholesterol in VLDL Calc [Ma ss/Vol]Ordered By: Nani Calloway on 01-15-2023 Cholesterol in VLDL [Mass/Vol] 32 mg/dL [facility] Coagulation Profileon 2022 aPTT Coag (Bld) [Time] 26.9 s Normal 25.1-36.5 [facility] Comment on above: Result Comment: A he matocrit value greater than 55% may lead to inaccurate results in coagulation testing. Patients having hematocrit values >55% require a special collection tube for coagulation studies. Please contact the laboratory at [phone] for redraw instructions. PERFORMED BY: [facility] [address] [place] [address] PATHOLOGIST LACE WINDER SHELLI CHARLES M.D. Performed By: #### P P, BUN, CBC, CREAT, LIPID, LYTES ####[facility] [address] [place] [address] [facility] INR Coag (PPP) [Relative time] 0.9 {INR} Normal [facility] Comment on above: Result Comment: INR Therapeutic Range A) Pre- and Peroperative OAT started two weeks before surgery. NOT HIP SURGERY: 1.5 - 2.5 HIP SURGERY: 2 - 3 B) Primary and secondary prevention of venous THROMBOSIS: 2 - 3 C) Active venous thrombosis, pulmonary embolism and prevention of recurrent venous thrombosis: 2 - 3 D) Prevention of arterial thromboembolism including patients with mechanical heart valves: 3 - 4.5 Performed By: #### P P, BUN, CBC, CREAT, LIPID, LYTES ####[address] PT Coag (PPP) [Time] 10.3 s Normal 9.0-12.9 [facility] Comment on above: Result Comment: A he matocrit value greater than 55% may lead to inaccurate results in coagulation testing. Patients having hematocrit values >55% require a special collection tube for coagulation studies. Please contact the laboratory at [phone] for redraw instructions. Performed By: #### P P, BUN, CBC, CREAT, LIPID, LYTES ####[address] Complete Blood Count Auto Di ffon 01-15-2023 Basophils (Bld) [#/Vol] 0.0 10*3/uL Normal 0.0-0.2 [facility] Comment on above: Result Comment: PERF ORMED BY: [place] [address] PATHOLOGIST LACE WINDER SHELLI CHARLES M.D. Performed By: #### P P, BUN, CBC, CREAT, LIPID, LYTES #### [address] Basophils/100 WBC (Bld) 0.6 % Normal . [facility] Comment on above: Performed By: #### P P, BUN, CBC, CREAT, LIPID, LYTES #### [address] Eosinophils (Bld) [#/Vol] 0.2 10*3/uL Normal 0.0-0.45 [facility] Comment on above: Performed By: #### P P, BUN, CBC, CREAT, LIPID, LYTES #### [address] Eosinophils/100 WBC (Bld) 2.5 % Normal . [facility] Comment on above: Performed By: #### P P, BUN, CBC, CREAT, LIPID, LYTES #### [address] Erythrocyte distribution width (RBC) [Ratio] 14.4 % Normal 11.9-15.3 [facility] Comment on above: Performed By: #### P P, BUN, CBC, CREAT, LIPID, LYTES #### [address] Hematocrit (Bld) [Volume fraction] 41.4 % Normal 34.0-46.4 [facility] Comment on above: Performed By: #### P P, BUN, CBC, CREAT, LIPID, LYTES #### [address] Hemoglobin (Bld) [Mass/Vol] 13.8 g/dL Normal 11.8-15.4 [facility] Comment on above: Performed By: #### P P, BUN, CBC, CREAT, LIPID, LYTES #### [address] Lymphocytes (Bld) [#/Vol] 1.6 10*3/uL Normal 1.00-4.8 [facility] Comment on above: Performed By: #### P P, BUN, CBC, CREAT, LIPID, LYTES #### [address] Lymphocytes/100 WBC (Bld) 22.8 % Normal . [facility] Comment on above: Performed By: #### P P, BUN, CBC, CREAT, LIPID, LYTES #### [address] MCH (RBC) [Entitic mass] 30.5 pg Normal 24.7-34.3 [facility] Comment on above: Performed By: #### P P, BUN, CBC, CREAT, LIPID, LYTES #### [address] MCV (RBC) [Entitic vol] 91.4 fL Normal 80-100 [facility] Comment on above: Performed By: #### P P, BUN, CBC, CREAT, LIPID, LYTES #### [address] Mean Corpuscular HGB Conc 33.4 g/dL Normal 32.0-35.0 [facility] Comment on above: Performed By: #### P P, BUN, CBC, CREAT, LIPID, LYTES #### [address] Monocytes (Bld) [#/Vol] 0.6 10*3/uL Normal 0.0-0.8 [facility] Comment on above: Performed By: #### P P, BUN, CBC, CREAT, LIPID, LYTES #### [address] Monocytes/100 WBC (Bld) 8.3 % Normal . [facility] Comment on above: Performed By: #### P P, BUN, CBC, CREAT, LIPID, LYTES #### [address] Neutrophils (Bld) [#/Vol] 4.6 10*3/uL Normal 1.8-7.7 [facility] Comment on above: Performed By: #### P P, BUN, CBC, CREAT, LIPID, LYTES #### [address] Neutrophils/100 WBC (Bld) 65.8 % Normal . [facility] Comment on above: Performed By: #### P P, BUN, CBC, CREAT, LIPID, LYTES #### [address] NRBC% 0.2 /100{WBC} Normal 0-0.5 [facility] Comment on above: Performed By: #### P P, BUN, CBC, CREAT, LIPID, LYTES #### [address] Platelet mean volume (Bld) [Entitic vol] 8.8 fL Normal 6.3-10.7 [facility] Comment on above: Performed By: #### P P, BUN, CBC, CREAT, LIPID, LYTES #### [address] Platelets (Bld) [#/Vol] 181 10*3/uL Normal 150-450 [facility] Comment on above: Performed By: #### P P, BUN, CBC, CREAT, LIPID, LYTES #### [address] RBC (Bld) [#/Vol] 4.53 10*6/uL Normal 3.60-5.00 [facility] Comment on above: Performed By: #### P P, BUN, CBC, CREAT, LIPID, LYTES #### [address] WBC (Bld) [#/Vol] 7.0 10*3/uL Normal 3.8-11.6 [facility] Comment on above: Performed By: #### P P, BUN, CBC, CREAT, LIPID, LYTES #### [address] Creatinineon 01-15-2023 Creatinine [Mass/Vol] 1.02 mg/dL Normal 0.60-1.20 [facility] Comment on above: Performed By: #### P P, BUN, CBC, CREAT, LIPID, LYTES #### [address] GFR/1.73 sq M.predicted MDRD (S/P/Bld) [Vol rate/Area] 57.371 mL/min/{1.73_m2} [facility] Comment on above: Performed By: #### P P, BUN, CBC, CREAT, LIPID, LYTES #### [address] Creatinine [Mass/volume] in Serum or PlasmaOrdered By: Nani Calloway on 01-15-2023 Creatinine [Mass/Vol] 1.02 mg/dL 0.60-1.20 [facility] ECG 12 lead ECGon 01-15-2023 ECG 12 lead ECG [facility] Main [place] [address] [place] [address] Electrocardiograph Report Signed Patient: Katarina Camara MR#: [id number] 51 : 1945 Acct:[id number] Age/Sex: 77 / F ADM Date: 01/15/23 Loc: Room: Type: [facility] Attending Dr: Nani Calloway MD Ordering Provider: Nani Calloway MD, [facility] Date of Service: 01/15/23 ECG/ECG 12 lead ECG: pre op Copies to: Test Reason : Blood Pressure : / mmHG Vent. Rate : 075 BPM Atrial Rate : 075 BPM P-R Int : 144 ms QRS Dur : 084 ms QT Int : 378 ms P-R-T Axes : 063 -22 127 degrees QTc Int : 422 ms Normal sinus rhythm T wave abnormality, consider lateral ischemia Abnormal ECG No previous ECGs available Confirmed by JAD SUH [facility], SHANELL ([id number]) on 01/16/2023 12:23:08 PM Referred By: BRODIE Electronically Signed By:SHANELL ROYAL MD [facility] Transcribed By: MUS Signed By Niraj Royal MD 01/16/23 1223 Normal [facility] Electrolyteson 01-15-2023 Anion gap [Moles/Vol] 9.1 mmol/L Normal 6.0-15.0 [facility] Comment on above: Performed By: #### P P, BUN, CBC, CREAT, LIPID, LYTES #### [facility] [address] [place] [address] [place] Chloride [Moles/Vol] 105 mmol/L Normal 98-107 [facility] Comment on above: Performed By: #### P P, BUN, CBC, CREAT, LIPID, LYTES #### [facility] [address] [place] [address] [place] CO2 [Moles/Vol] 29.9 mmol/L Normal 21.0-31.0 [facility] Comment on above: Performed By: #### P P, BUN, CBC, CREAT, LIPID, LYTES #### [facility] [address] Potassium [Moles/Vol] 4.0 mmol/L Normal 3.5-5.1 [facility] Comment on above: Performed By: #### P P, BUN, CBC, CREAT, LIPID, LYTES #### [facility] [address] Sodium [Moles/Vol] 140 mmol/L Normal 136-145 [facility] Comment on above: Performed By: #### P P, BUN, CBC, CREAT, LIPID, LYTES #### [facility] [address] [address] Eosinophils Auto (Bld) [#/Vo l]Ordered By: Nain Calloway on 01-15-2023 Eosinophils (Bld) [#/Vol] 0.2 10*3/uL 0.0-0.45 [facility] Eosinophils/100 WBC Auto (Bl d)Ordered By: Nani Calloway on 01-15-2023 Eosinophils/100 WBC (Bld) 2.5 % . [facility] Erythrocyte distribution wid th Auto (RBC) [Ratio]Ordered By: Nani Calloway on 01-15-2023 Erythrocyte distribution width (RBC) [Ratio] 14.4 % 11.9-15.3 [facility] Hematocrit Auto (Bld) [Volum e fraction]Ordered By: Nani Calloway on 01-15-2023 Hematocrit (Bld) [Volume fraction] 41.4 % 34.0-46.4 [facility] Hemoglobin [Mass/volume] in BloodOrdered By: Nani Calloway on 01-15-2023 Hemoglobin (Bld) [Mass/Vol] 13.8 g/dL 11.8-15.4 [facility] INR in Platelet poor plasma by Coagulation assayOrdered By: Nani Calloway on 01-15-2023 INR Coag (PPP) [Relative time] 0.9 {INR} [facility] Comment on above: INR Therapeutic Rang e A) Pre- and Peroperative OAT started two weeks before surgery. NOT HIP SURGERY: 1.5 - 2.5 HIP SURGERY: 2 - 3B) Primary and secondary prevention of venous THROMBOSIS: 2 - 3C) Active venous thrombosis, pulmonary embolismand prevention of recurrent venous thrombosis: 2 - 3D) Prevention of arterial thromboembolismincluding patients with mechanical heart valves: 3 - 4.5 Leukocytes [#/volume] correc jamil for nucleated erythrocytes in Blood by Automated counOrdered By: Nani Calloway on 01-15-2023 WBC corrected for nucl RBC Auto (Bld) [#/Vol] 7.0 10*3/uL 3.8-11.6 [facility] Lipid Panelon 01-15-2023 Cholesterol [Mass/Vol] 155 mg/dL Normal 140-200 [facility] Comment on above: Result Comment: Chol less than 200 mg/dl low risk Chol 201-239 mg/dl borderline risk Chol 240 mg/dl and greater high risk Performed By: #### P P, BUN, CBC, CREAT, LIPID, LYTES #### [facility] [address] Cholesterol in HDL [Mass/Vol] 53 mg/dL Normal 23-92 [facility] Comment on above: Result Comment: HDL CHOL ATP-III CLASSIFICATION Cardiovascular Risk HDL > or equal to 60 mg/dL LOW HDL < 40 mg/dL HIGH Performed By: #### P P, BUN, CBC, CREAT, LIPID, LYTES #### [facility] [address] Cholesterol.total/Chol esterol in HDL [Mass ratio] 2.9 {ratio} Normal <5.0 [facility] Comment on above: Result Comment: PERF ORMED BY: [facility] [address] [place] [address] PATHOLOGIST LACE WINDER SHELLI CHARLES M.D. Performed By: #### P P, BUN, CBC, CREAT, LIPID, LYTES #### [facility] [address] LDL Cholesterol,Calculated 70 mg/dL Normal 0-100 [facility] Comment on above: Result Comment: LDL ATP III CLASSIFICATION LDL less than 100 mg/dL Optimal LDL 100-129 mg/dL Near or above optimal LDL 130-159 mg/dL Borderline high LDL 160-189 mg/dL High LDL greater than 189 mg/dL Very high Performed By: #### P P, BUN, CBC, CREAT, LIPID, LYTES #### [facility] [address] Triglyceride w/Reflex 161 mg/dL High 0-149 [facility] Comment on above: Result Comment: TRIG ATP III CLASSIFICATION TRIG less than 150 mg/dL Normal TRIG 150-199 mg/dL Borderline high TRIG 200-500 mg/dL High TRIG greater than 500 mg/dL Very high Standard traceable to the Center for Disease Conrtrol and Prevention (CDC) test method. Performed By: #### P P, BUN, CBC, CREAT, LIPID, LYTES #### [facility] [address] VLDL CHOLESTEROL 32 mg/dL Normal [facility] Comment on above: Performed By: #### P P, BUN, CBC, CREAT, LIPID, LYTES #### [facility] [address] Lymphocytes Auto (Bld) [#/Vo l]Ordered By: Nani Calloway on 01-15-2023 Lymphocytes (Bld) [#/Vol] 1.6 10*3/uL 1.00-4.8 [facility] Lymphocytes/100 WBC Auto (Bl d)Ordered By: Nani Calloway on 01-15-2023 Lymphocytes/100 WBC (Bld) 22.8 % . [facility] MCH Auto (RBC) [Entitic mass ]Ordered By: Nani Calloway on 01-15-2023 MCH (RBC) [Entitic mass] 30.5 pg 24.7-34.3 [facility] MCHC Auto (RBC) [Mass/Vol]Or dered By: Nani Calloway on 01-15-2023 MCHC (RBC) [Mass/Vol] 33.4 g/dL 32.0-35.0 [facility] MCV Auto (RBC) [Entitic vol] Ordered By: Nani Calloway on 01-15-2023 MCV (RBC) [Entitic vol] 91.4 fL 80-100 [facility] Monocytes Auto (Bld) [#/Vol] Ordered By: Nani Calloway on 01-15-2023 Monocytes (Bld) [#/Vol] 0.6 10*3/uL 0.0-0.8 [facility] Monocytes/100 WBC Auto (Bld) Ordered By: Nani Calloway on 01-15-2023 Monocytes/100 WBC (Bld) 8.3 % . [facility] Neutrophils Auto (Bld) [#/Vo l]Ordered By: Nani Calloway on 01-15-2023 Neutrophils (Bld) [#/Vol] 4.6 10*3/uL 1.8-7.7 [facility] Neutrophils/100 WBC Auto (Bl d)Ordered By: Nani Calloway on 01-15-2023 Neutrophils/100 WBC (Bld) 65.8 % . [facility] No Panel InformationOrdered By: Nani Calloway on 01-15-2023 Estimated GFR (CKD-EPI) 57.371 mL/Min [facility] Creatinine Clearance (Chem N/A [facility] Nucleated erythrocytes [Pres ence] in Blood by Automated countOrdered By: Nani Calloway on 01-15-2023 Nucleated RBC Auto Ql (Bld) 0.2 /100{WBC} 0-0.5 [facility] Platelet mean volume Auto (B ld) [Entitic vol]Ordered By: Nani Calloway on 01-15-2023 Platelet mean volume (Bld) [Entitic vol] 8.8 fL 6.3-10.7 [facility] Platelets Auto (Bld) [#/Vol] Ordered By: Nani Calloway on 01-15-2023 Platelets (Bld) [#/Vol] 181 10*3/uL 150-450 [facility] Potassium [Moles/volume] in Serum or PlasmaOrdered By: Nani Calloway on 01-15-2023 Potassium [Moles/Vol] 4.0 mmol/L 3.5-5.1 [facility] Prothrombin time (PT)Ordered By: Nani Calloway on 01-15-2023 PT Coag (PPP) [Time] 10.3 s 9.0-12.9 [facility] Comment on above: A hematocrit value g reater than 55% may lead to inaccurate results in coagulation testing. Patients having hematocrit values >55% require a special collection tube for coagulation studies. Please contact the laboratory at [phone] for redraw instructions. RBC Auto (Bld) [#/Vol]Ordere d By: Nani Calloway on 01-15-2023 RBC (Bld) [#/Vol] 4.53 10*6/uL 3.60-5.00 [facility] Serum or plasma anion gap de terminationOrdered By: Nani Calloway on 01-15-2023 Anion gap [Moles/Vol] 9.1 mmol/L 6.0-15.0 [facility] Serum or plasma high density lipoprotein (HDL) cholesterol measurementOrdered By: Nani Calloway on 01-15-2023 Cholesterol in HDL [Mass/Vol] 53 mg/dL 23-92 [facility] Comment on above: HDL CHOL ATP-III CLA SSIFICATION Cardiovascular RiskHDL > or equal to 60 mg/dL LOWHDL < 40 mg/dL HIGH Serum or plasma total choles terol/high density lipoprotein (HDL) cholesterol mass ratOrdered By: Nani Calloway on 01-15-2023 Cholesterol.total/Chol esterol in HDL [Mass ratio] 2.9 {ratio} <5.0 [facility] Sodium [Moles/volume] in Ser um or PlasmaOrdered By: Nani Calloway on 01-15-2023 Sodium [Moles/Vol] 140 mmol/L 136-145 [facility] Triglyceride [Mass/volume] i n Serum or PlasmaOrdered By: Nani Calloway on 01-15-2023 Triglyceride [Mass/Vol] 161 mg/dL 0-149 [facility] Comment on above: TRIG ATP III CLASSIF ICATIONTRIG less than 150 mg/dL NormalTRIG 150-199 mg/dL Borderline highTRIG 200-500 mg/dL High TRIG greater than 500 mg/dL Very highStandard traceable to the Center for Disease Conrtrol and Prevention (CDC) test method. Urea nitrogen [Mass/volume] in Serum or PlasmaOrdered By: Nani Calloway on 01-15-2023 Urea nitrogen [Mass/Vol] 9 mg/dL 7-25 [facility] WBC Auto (Bld) [#/Vol]Ordere d By: Nani Calloway on 01-15-2023 WBC (Bld) [#/Vol] 7.0 10*3/uL 3.8-11.6 [facility] CARDIAC STRESS TESTon 2022 Ordered by an unspec ified provider. [facility] ECG 12 Leadon 12-25-2022 ECG reveals normal s inus rhythm with diffuse nonspecific ST and T changes [facility] Work Phone: NM ag perf SPECT rest stron 11-02-2022 NM ag perf SPECT rest str [facility] [place] [address] Nuclear Medicine Report Signed Patient: Katarina Camara MR#: [id number] : 1945 Acct:[id number] Age/Sex: 77 / F ADM Date: 10/31/22 Loc: Room: Type: [facility] Attending Dr: Shellie Jennings NP-C Copies to: Nani Calloway MD, [facility] JOHANNA Nolan Ordering Provider: JOHANNA Nolan Date of Service: 10/31/22 NM/NM ag perf SPECT rest str: Chest pain ORDERED BY: Shellie Jennings NP INDICATION: A 77-year-old patient with chest pain. Resting images were obtained after intravenous administration of 28.5 mCi of Cardiolite given on 11/01/2022 and stress images were obtained after intravenous administration of 29.5 mCi of Cardiolite given after Lexiscan administration on 10/31/2022. Subsequently, gated SPECT MPI was obtained. TOMOGRAPHIC DATA: Quality of the study was good. The study demonstrated mildly reduced tracer uptake in the apical segment, which is likely attenuation artifact. No tomographic evidence of myocardial infarction or ischemia. The gated study demonstrated normal ejection fraction of 64%. TID, though, measured 1.67, which is significantly abnormal. CONCLUSION: 1. Small apical perfusion defect is suspected to be attenuation artifact with no convincing evidence of ischemia or prior myocardial infarction. 2. Normal left ventricular ejection fraction at 64%. 3. Abnormal TID at 1.67. COMMENT: Abnormal TID could reflect balanced myocardial ischemia. Please correlate clinically. Transcribed By: ESTEPHANIA 11/02/22 1321 Dictated By: Nani Calloway MD, [facility] 11/02/22 1141 Signed By: 11/10/22 1346 Normal [facility] STR cardiac stress/cardiolon 11-02-2022 STR cardiac stress/cardiol [facility] [place] [address] [place] [address] Cardiac Stress Test Signed Patient: Katarina Camara MR#: [id number] : 1945 Acct:[id number] Age/Sex: 77 / F ADM Date: 10/31/22 Loc: Room: Type: [facility] Attending Dr: Shellie SPENCER Copies to: Nani Calloway MD, [facility] JOHANNA Nolan Ordering Provider: JOHANNA Nolan Date of Service: 10/31/22 STR/STR cardiac stress/cardiol: chest pain, ER recommended stress test in 09/2022 ORDERED BY: JOHANNA Wright INDICATION: A 77-year-old patient with chest pain and ER visit. Resting EKG revealed normal sinus rhythm with diffuse repolarization abnormalities. Resting heart rate was 80 beats per minute. The patient was hypertensive at rest with a pressure of 176/92 mmHg. This was not a treadmill, it was actually a Lexiscan Cardiolite study. Following intravenous administration of 400 mcg of Lexiscan over 10 seconds, the baseline ST segment abnormalities remained unchanged. No chest pain or cardiac arrhythmias were noted. Cardiolite study followed. CONCLUSION: 1. Nondiagnostic electrocardiogram following Lexiscan administration secondary to the presence of diffuse baseline ST segment abnormalities. 2. No chest pain or cardiac arrhythmias noted following Lexiscan administration. 3. Resting hypertension is seen. 4. Cardiolite studies to be reported separately by Nuclear Cardiology. Transcribed By: ESTEPHANIA 11/02/22 1958 Dictated By: Nani Calloway MD, [facility] 11/02/22 1455 Signed By: 11/10/22 1346 Normal [facility] Consultation Noteon 06-28-19 Consultation Note [id number] Normal [facility] CBC AUTO DIFFon 06-11-2022 BASO # 0.1 103/ul Normal 0.0-0.1 [facility] Comment on above: Performed By: #### C BC #### [facility] [address] [place] [address] Dr. Mag Charles Basophils/100 WBC (Bld) 0.7 % Normal 0.2-2.0 [facility] Comment on above: Performed By: #### C BC #### [facility] [address] [place] [address] Dr. Mag Charles EO # 0.1 103/ul Normal 0.0-0.7 [facility] Comment on above: Performed By: #### C BC #### [facility] [address] [place] [address] Dr. Mag Charles Eosinophils/100 WBC (Bld) 1.1 % Normal 0.9-7.0 [facility] Comment on above: Performed By: #### C BC #### [facility] [address] [place] [address] Dr. Mag Charles Erythrocyte distribution width (RBC) [Ratio] 13.4 % Normal 11.0-15.0 [facility] Comment on above: Performed By: #### C BC #### [facility] [address] [place] [address] Dr. Mag Charles Hematocrit (Bld) [Volume fraction] 46.8 % Normal 36.0-48.0 [facility] Comment on above: Performed By: #### C BC #### [facility] [address] [place] [address] Dr. Mag Charles Hemoglobin (Bld) [Mass/Vol] 15.1 g/dL Normal 12.0-16.0 [facility] Comment on above: Performed By: #### C BC #### [facility] [address] [place] [address] Dr. Mag Charles IG # 0.09 10e3/ul Critically high 0.00-0.03 [facility] Comment on above: Performed By: #### C BC #### [facility] [address] [place] [address] Dr. Mag Charles IG % 0.8 % Critically high 0.0-0.5 [facility] Comment on above: Performed By: #### C BC #### [facility] [address] [place] [address] Dr. Mag Charles LYMPH # 3.8 103/ul Normal 1.2-3.8 [facility] Comment on above: Performed By: #### C BC #### [facility] [address] [place] [address] Dr. Mag Charles Lymphocytes/100 WBC (Bld) 32.7 % Normal 20.5-60.0 [facility] Comment on above: Performed By: #### C BC #### [facility] [address] [place] [address] Dr. Mag Charles MANUAL DIFF REQ NO Normal [facility] Comment on above: Performed By: #### C BC #### [facility] [address] [place] [address] Dr. Mag Charles MCH (RBC) [Entitic mass] 30.3 pg Normal 26.7-34.0 [facility] Comment on above: Performed By: #### C BC #### [facility] [address] [place] [address] Dr. Mag Charles MCHC (RBC) [Mass/Vol] 32.3 g/dL Normal 29.9-35.2 [facility] Comment on above: Performed By: #### C BC #### [facility] [address] [place] [address] Dr. Mag Charles MCV (RBC) [Entitic vol] 93.8 fL Normal 81.0-99.0 [facility] Comment on above: Performed By: #### C BC #### [facility] [address] [place] [address] Dr. Mag Charles MONO # 1.1 103/ul Critically high 0.3-0.8 [facility] Comment on above: Performed By: #### C BC #### [facility] [address] [place] [address] Dr. Mag Charles Monocytes/100 WBC (Bld) 9.2 % Normal 1.7-12.0 [facility] Comment on above: Performed By: #### C BC #### [facility] [address] [place] [address] Dr. Mag Charles NEUT # 6.5 103/ul Normal 1.4-6.5 [facility] Comment on above: Performed By: #### C BC #### [facility] [address] [place] [address] Dr. Mag Charles Neutrophils/100 WBC (Bld) 55.5 % Normal 43.0-75.0 [facility] Comment on above: Performed By: #### C BC #### [facility] [address] [place] [address] Dr. Mag Charles Platelet mean volume (Bld) [Entitic vol] 9.9 fL Normal 9.5-13.5 [facility] Comment on above: Performed By: #### C BC #### [facility] [address] [place] [address] Dr. Mag Charles PLT 237 103/ul Normal 150-450 [facility] Comment on above: Performed By: #### C BC #### [facility] [address] [place] [address] Dr. Mag Charles RBC 4.99 106/ul Normal 4.20-5.40 [facility] Comment on above: Performed By: #### C BC #### [facility] [address] [place] [address] Dr. Mag Charles WBC 11.6 103/ul Critically high 4.0-11.0 [facility] Comment on above: Performed By: #### C BC #### [facility] [address] [place] [address] Dr. Mag Charles PROF CHEM 8 (BAS METB)on Anion gap [Moles/Vol] 10.2 mmol/L Normal [facility] Comment on above: Performed By: #### C VDTBH #### [facility] [address] [address] [address] Mag Charles Calcium [Mass/Vol] 8.5 mg/dL Normal 8.5-10.1 [facility] Comment on above: Performed By: #### C VDTBH #### [facility] [address] [place] [address] Dr. Mag Charles Chloride [Moles/Vol] 103 mmol/L Normal 98-107 [facility] Comment on above: Performed By: #### C VDTBH #### [facility] [address] [place] [address] Dr. Mag Charles CO2 [Moles/Vol] 30.7 mmol/L Normal 21.0-32.0 [facility] Comment on above: Performed By: #### C VDTBH #### [facility] [address] [place] [address] Dr. Mag Charles Creatinine [Mass/Vol] 1.01 mg/dL Normal 0.55-1.02 [facility] Comment on above: Performed By: #### C VDTBH #### [facility] [address] [place] [address] Dr. Mag Charles EGFR-AF UKRAINIAN >60 Normal >=60 [facility] Comment on above: Performed By: #### C VDTBH #### [facility] [address] [place] [address] Dr. Mag Charles EGFR-NON AF UKRAINIAN 54 mL/min/1.73m2 Critically low >=60 [facility] Comment on above: Performed By: #### C VDTBH #### [facility] [address] [place] [address] Dr. Mag Charles Glucose [Mass/Vol] 94 mg/dL Normal 74-106 [facility] Comment on above: Performed By: #### C VDTBH #### [facility] [address] [place] [address] Dr. Mag Charles Potassium [Moles/Vol] 3.9 mmol/L Normal 3.5-5.1 [facility] Comment on above: Performed By: #### C VDTBH #### [facility] [address] [place] [address] Dr. Mag Charles Sodium [Moles/Vol] 140 mmol/L Normal 136-145 [facility] Comment on above: Performed By: #### C VDTBH #### [facility] [address] [place] [address] Dr. Mag Charles Urea nitrogen [Mass/Vol] 17.0 mg/dL Normal 7.0-18.0 [facility] Comment on above: Performed By: #### C VDTBH #### [facility] [address] [place] [address] Dr. Mag Charles Urea nitrogen/Creatinine [Mass ratio] 16.8 mg/mg Normal [facility] Comment on above: Performed By: #### C VDTBH #### [facility] [address] [place] [address] Dr. Mag Charles BNPon 06-10-2022 Natriuretic peptide B (Bld) [Mass/Vol] 51.0 pg/mL Normal <=900.0 [facility] Comment on above: Performed By: #### B CAREER PROFESSIONAL #### [facility] [address] [place] [address] Dr. Mag Charles CARDIAC NILO ADMITon 023 CK [Catalytic activity/Vol] 57 U/L Normal 26-192 [facility] Comment on above: Performed By: #### C MADM, CMP #### [facility] [address] [place] [address] Dr. Mag Charles CK.MB [Mass/Vol] 1.72 ng/mL Normal <=3.[address] [facility] Comment on above: Performed By: #### C MADM, CMP #### [facility] [address] [place] [address] Dr. Mag Charles HSTROP 11.3 pg/mL Normal 4.0-51.3 [facility] Comment on above: Result Comment: CUT- OFF POINTS HAVE BEEN ESTABLISHED BASED ON THE FOURTH UNIVERSAL DEFINITIONS OF MYOCARDIAL INFARCTION. THE UPPER REFERENCE LIMIT (URL) OF TROPONIN, DEFINED THE 99TH PERCENTILE OF cTnI DISTRIBUTION IN A REFERENCE POPULATION, HAS BEEN CONFIRMED THE DECISION THRESHOLD FOR CO DIAGNOSIS. Performed By: #### C FIONA, CMP #### [facility] [address] [place] [address] Dr. Mag Charles AG 62 ng/mL Normal 9-82 [facility] Comment on above: Performed By: #### C FIONA CMP #### [facility] [address] [place] [address] Dr. Mag Charles CBC AUTO DIFFon 06-10-2022 BASO # 0.1 103/ul Normal 0.0-0.1 [facility] Comment on above: Performed By: #### C MADISONTB #### [facility] [address] [place] [address] Dr. Mag Charles Basophils/100 WBC (Bld) 0.5 % Normal 0.2-2.0 [facility] Comment on above: Performed By: #### C FELIXH #### [facility] [address] [place] [address] Dr. Mag Charles EO # 0.1 103/ul Normal 0.0-0.7 [facility] Comment on above: Performed By: #### C MADISONTBH #### [facility] [address] [place] [address] Dr. Mag Charles Eosinophils/100 WBC (Bld) 0.8 % Critically low 0.9-7.0 [facility] Comment on above: Performed By: #### C MADISONTBH #### [facility] [address] [place] [address] Dr. Mag Charles Erythrocyte distribution width (RBC) [Ratio] 13.5 % Normal 11.0-15.0 [facility] Comment on above: Performed By: #### C MADISONTBH #### [facility] [address] [place] [address] Dr. Mag Charles Hematocrit (Bld) [Volume fraction] 49.1 % Critically high 36.0-48.0 [facility] Comment on above: Performed By: #### C VDTBH #### [facility] [address] [place] [address] Dr. Mag Charles Hemoglobin (Bld) [Mass/Vol] 15.9 g/dL Normal 12.0-16.0 [facility] [facility] Comment on above: Performed By: #### C VDTBH #### [facility] [address] [place] [address] Dr. Mag Charles IG # 0.12 10e3/ul Critically high 0.00-0.03 [facility] Comment on above: Performed By: #### C VDTBH #### [facility] [address] [place] [address] Dr. Mag Charles IG % 1.1 % Critically high 0.0-0.5 [facility] Comment on above: Performed By: #### C VDTBH #### [facility] [address] [place] [address] Dr. Mag Charles LYMPH # 1.9 103/ul Normal 1.2-3.8 [facility] Comment on above: Performed By: #### C VDTBH #### [facility] [address] [place] [address] Dr. Mag Charles Lymphocytes/100 WBC (Bld) 18.1 % Critically low 20.5-60.0 [facility] Comment on above: Performed By: #### C VDTBH #### [facility] [address] [place] [address] Dr. Mag Charles MANUAL DIFF REQ NO Normal [facility] Comment on above: Performed By: #### C VDTBH #### [facility] [address] [place] [address] Dr. Mag Charles MCH (RBC) [Entitic mass] 30.1 pg Normal 26.7-34.0 [facility] Comment on above: Performed By: #### C VDTBH #### [facility] [address] [place] [address] Dr. Mag Charles MCHC (RBC) [Mass/Vol] 32.4 g/dL Normal 29.9-35.2 [facility] Comment on above: Performed By: #### C VDTBH #### [facility] [address] [place] [address] Dr. Mag Charles MCV (RBC) [Entitic vol] 93.0 fL Normal 81.0-99.0 [facility] Comment on above: Performed By: #### C VDTBH #### [facility] [address] [place] [address] Dr. Mag Charles MONO # 0.8 103/ul Normal 0.3-0.8 [facility] Comment on above: Performed By: #### C VDTBH #### [facility] [address] [place] [address] Dr. Mag Charles Monocytes/100 WBC (Bld) 7.7 % Normal 1.7-12.0 [facility] Comment on above: Performed By: #### C VDTBH #### [facility] [address] [place] [address] Dr. Mag Charles NEUT # 7.6 103/ul Critically high 1.4-6.5 [facility] Comment on above: Performed By: #### C VDTBH #### [facility] [address] [place] [address] Dr. Mag Charles Neutrophils/100 WBC (Bld) 71.8 % Normal 43.0-75.0 [facility] Comment on above: Performed By: #### C VDTBH #### [facility] [address] [place] [address] Dr. Mag Charles Platelet mean volume (Bld) [Entitic vol] 10.4 fL Normal 9.5-13.5 [facility] Comment on above: Performed By: #### C VDTBH #### [facility] [address] [place] [address] Dr. Mag Charles PLT 165 103/ul Normal 150-450 [facility] Comment on above: Performed By: #### C VDTBH #### [facility] [address] [place] [address] Dr. Mag Charles RBC 5.28 106/ul Normal 4.20-5.40 [facility] Comment on above: Performed By: #### C VDTBH #### [facility] [address] [address] [address] Mag Charles WBC 10.6 103/ul Normal 4.0-11.0 [facility] Comment on above: Performed By: #### C VDTBH #### [facility] [address] [address] [address] Mag Charles Covid-19 PCR ([facility])on SARS-CoV-2 (COVID-19) RNA ABIODUN+probe Ql (Unsp spec) Not detected Normal NOT DETECTED [facility] Comment on above: Result Comment: When diagnostic testing is negative, the possibility of a false negative should be considered in the context of a patient's recent exposures and the presence of clinical signs and symptoms consistent with SARS-CoV-2. This test is not yet approved or cleared by the [place] FDA. When there are no FDA-approved or cleared tests available, and other criteria are met, FDA can make tests available under an emergency access mechanism called an Emergency Use Authorization (EUA). The EUA for this test is supported by the [place] of Health and Human Service's declaration that circumstances exist to justify the emergency use of in vitro diagnostics for the detection and/or diagnosis of the virus that causes COVID-19. This EUA will remain in effect for the duration of the COVID-19 declaration justifying emergency of IVDs, unless it is terminated or revoked by the FDA (after which the test may no longer be used). Performed By: #### C VDTBH #### [facility] [address] [place] [address] Dr. Mag Charles D-DIMERon 06-10-2022 D-DIMER 0.49 mg/L FEU Normal <=0.[address] [facility] Comment on above: Performed By: #### C VDTBH #### [facility] [address] [place] [address] Dr. Mag Charles D-DIMER COMMENTS SEE BELOW Normal [facility] Comment on above: Result Comment: Incr eases in D-Dimer concentration observed with thromboembolic events can be variable due to localization, size, and age of the thrombus. Therefore, a thromboembolic event cannot be diagnosed with certainty on the basis of the reference range. D-Dimers may also be elevated for a variety of disorders including: advanced age, , coronary disease, cancer, liver disease, infection, inflammation, hematoma, DIC, trauma, post-surgery, diabetes, thrombolytic or anticoagulant therapy, stress, and generalized hospitalization. Performed By: #### C VDTB #### [facility] [address] [place] [address] Dr. Mag Charles PROF 14(COMP METB)on 023 Albumin [Mass/Vol] 3.5 g/dL Normal 3.4-5.0 [facility] Comment on above: Performed By: #### C FIONA, CMP #### [facility] [address] [place] [address] Dr. Mag Charles Albumin/Globulin [Mass ratio] 1.1 {ratio} Normal [facility] Comment on above: Performed By: #### C FIONA, CMP #### [facility] [address] [place] [address] Dr. Mag Charles ALP [Catalytic activity/Vol] 108 U/L Normal 46-116 [facility] Comment on above: Performed By: #### C FIONA, CMP #### [facility] [address] [place] [address] Dr. Mag Charles ALT [Catalytic activity/Vol] 67 U/L Critically high 14-59 [facility] Comment on above: Performed By: #### C FIONA, CMP #### [facility] [address] [place] [address] Dr. Mag Charles Anion gap [Moles/Vol] 12.6 mmol/L Normal [facility] Comment on above: Performed By: #### C GEOVANIM, CMP #### [facility] [address] [place] [address] Dr. Mag Charles AST [Catalytic activity/Vol] 117 U/L Critically high 15-37 [facility] Comment on above: Performed By: #### C GEOVANIM, CMP #### [facility] [address] [place] [address] Dr. Mag Charles Bilirubin [Mass/Vol] 0.7 mg/dL Normal 0.2-1.0 [facility] Comment on above: Performed By: #### C FIONA, CMP #### [facility] [address] [place] [address] Dr. Mag Charles Calcium [Mass/Vol] 8.5 mg/dL Normal 8.5-10.1 [facility] Comment on above: Performed By: #### C FIONA, CMP #### [facility] [address] [place] [address] Dr. Mag Charles Chloride [Moles/Vol] 99 mmol/L Normal 98-107 [facility] Comment on above: Performed By: #### C FIONA, CMP #### [facility] [address] [place] [address] Dr. Mag Charles CO2 [Moles/Vol] 28.5 mmol/L Normal 21.0-32.0 [facility] Comment on above: Performed By: #### C FIONA, CMP #### [facility] [address] [place] [address] Dr. Mag Charles Creatinine [Mass/Vol] 1.23 mg/dL Critically high 0.55-1.02 [facility] Comment on above: Performed By: #### C FIONA, CMP #### [facility] [address] [place] [address] Dr. Mag Charles EGFR-AF UKRAINIAN 52 mL/min/1.73m2 Critically low >=60 [facility] Comment on above: Performed By: #### C FIONA, CMP #### [facility] [address] [place] [address] Dr. Mag Charles EGFR-NON AF UKRAINIAN 43 mL/min/1.73m2 Critically low >=60 [facility] Comment on above: Performed By: #### C FIONA, CMP #### [facility] [address] [place] [address] Dr. Mag Charles Globulin (S) [Mass/Vol] 3.3 g/dL Normal [facility] Comment on above: Performed By: #### C FIONA, CMP #### [facility] [address] [place] [address] Dr. Mag Charles Glucose [Mass/Vol] 112 mg/dL Critically high 74-106 [facility] Comment on above: Performed By: #### C FIONA, CMP #### [facility] [address] [address] [address] Mag Charles Potassium [Moles/Vol] 4.1 mmol/L Normal 3.5-5.1 [facility] Comment on above: Performed By: #### C FIONA, CMP #### [facility] [address] [address] [address] Mag Charles Protein [Mass/Vol] 6.8 g/dL Normal 6.4-8.2 [facility] Comment on above: Performed By: #### C FIONA, CMP #### [facility] [address] [address] [address] Mag Charles Sodium [Moles/Vol] 136 mmol/L Normal 136-145 [facility] Comment on above: Performed By: #### C FIONA, CMP #### [facility] [address] [address] [address] Mag Charles Urea nitrogen [Mass/Vol] 21.0 mg/dL Critically high 7.0-18.0 [facility] Comment on above: Performed By: #### C FIONA, CMP #### [facility] [address] [address] [address] Mag Charles Urea nitrogen/Creatinine [Mass ratio] 17.1 mg/mg Normal [facility] Comment on above: Performed By: #### C FIONA, CMP #### [facility] [address] [address] [address] Mag Charles TROPONIN, HIGH SENSITIVITYon 06-10-2022 HSTROP 9.3 pg/mL Normal 4.0-51.3 [facility] Comment on above: Result Comment: CUT- OFF POINTS HAVE BEEN ESTABLISHED BASED ON THE FOURTH UNIVERSAL DEFINITIONS OF MYOCARDIAL INFARCTION. THE UPPER REFERENCE LIMIT (URL) OF TROPONIN, DEFINED THE 99TH PERCENTILE OF cTnI DISTRIBUTION IN A REFERENCE POPULATION, HAS BEEN CONFIRMED THE DECISION THRESHOLD FOR CO DIAGNOSIS. Performed By: #### C VDTB #### [facility] [address] [place], [place] [address] Dr. Mag Charles HSTROP 10.4 pg/mL Normal 4.0-51.3 [facility] Comment on above: Result Comment: CUT- OFF POINTS HAVE BEEN ESTABLISHED BASED ON THE FOURTH UNIVERSAL DEFINITIONS OF MYOCARDIAL INFARCTION. THE UPPER REFERENCE LIMIT (URL) OF TROPONIN, DEFINED THE 99TH PERCENTILE OF cTnI DISTRIBUTION IN A REFERENCE POPULATION, HAS BEEN CONFIRMED THE DECISION THRESHOLD FOR CO DIAGNOSIS. Performed By: #### H STRO #### [facility] [address] [place], [place] [address] Dr. Mag Charles HSTROP 11.0 pg/mL Normal 4.0-51.3 [facility] Comment on above: Result Comment: CUT- OFF POINTS HAVE BEEN ESTABLISHED BASED ON THE FOURTH UNIVERSAL DEFINITIONS OF MYOCARDIAL INFARCTION. THE UPPER REFERENCE LIMIT (URL) OF TROPONIN, DEFINED THE 99TH PERCENTILE OF cTnI DISTRIBUTION IN A REFERENCE POPULATION, HAS BEEN CONFIRMED THE DECISION THRESHOLD FOR CO DIAGNOSIS. Performed By: #### C VDTBH #### [facility] [id number] Mag Charles XR CHEST 1 Von 06-10-2022 XR CHEST 1 V EXAM: XR CHEST 1 V HISTORY: CHEST PAIN, UNSPECIFIED COMPARISON: 06/06/2022 TECHNIQUE: Frontal view of the chest. FINDINGS: Previously seen right middle lobe opacity has resolved. Mild bilateral perihilar interstitial prominence. No pleural effusions. Borderline heart size. No acute bony abnormality noted. IMPRESSION: Mild perihilar interstitial prominence which may represent vascular congestion. Electronically authenticated by: TAMIE RICHARDSON Date: 2022-06-10 09:21 Normal [facility] XR CHEST 2 Von 06-06-2022 XR CHEST 2 V EXAM: XR CHEST 2 V HISTORY: FH: Asthma . Cough and shortness of breath for one and half weeks. COMPARISON: 10/25/2017 TECHNIQUE: Upright PA and lateral chest x-ray FINDINGS: A combination of atelectasis and subtle infiltrates are seen in the right mid and lower lung, with mild elevation of the right hemidiaphragm. A small amount of linear atelectasis or scarring is seen at the left costophrenic angle. No acute infiltrate, effusion or pneumothorax is otherwise identified. The heart is not enlarged and the vasculature is not distended. Surgical clips are seen projecting over the right axilla. The osseous structures are grossly intact. IMPRESSION: Atelectasis and subtle infiltrates are seen in the right mid and lower lung, with mild elevation of the hemidiaphragm. There is no evidence of overt cardiac decompensation. Electronically authenticated by: SUZE MARROQUIN Date: 2022-06-06 12:19 Normal [facility] COVID + FLU Quick Testingon 05-31-2022 SARS-CoV-2 (COVID-19) RNA ABIODUN+probe Ql (Unsp spec) Negative [facility] Other COVID + FLU Quick Testing Negative [employer] Other CBC W Auto Differential pane l (Bld)on 05-15-2022 Basophils (Bld) [#/Vol] 0.04 10*3/uL Normal <0.11 [facility] Comment on above: Order Comment: Speci men Type: BLOOD SPECIMEN Ordering Facility: [facility] Address: [address] [address] Performed By: #### 5 7021-8 #### [facility] CLIA [id number] [address] [place] [address] Basophils/100 WBC (Bld) 0.7 % Normal [facility] Comment on above: Order Comment: Speci men Type: BLOOD SPECIMEN Ordering Facility: [facility] Address: [address] [address] Performed By: #### 5 7021-8 #### [facility] CLIA [id number] [address] [place] [address] Differential cell count method Nom (Bld) Auto Normal [facility] Comment on above: Order Comment: Speci men Type: BLOOD SPECIMEN Ordering Facility: [facility] Address: [address] [address] Performed By: #### 5 7021-8 #### [facility] CLIA [id number] [address] [place] [address] Eosinophils (Bld) [#/Vol] 0.15 10*3/uL Normal <0.46 [facility] Comment on above: Order Comment: Speci men Type: BLOOD SPECIMEN Ordering Facility: [facility] Address: [address] [address] Performed By: #### 5 7021-8 #### [facility] CLIA [id number] [address] [place] [address] Eosinophils/100 WBC (Bld) 2.8 % Normal [facility] Comment on above: Order Comment: Speci men Type: BLOOD SPECIMEN Ordering Facility: [facility] Address: [address] [address] Performed By: #### 5 7021-8 #### [facility] CLIA [id number] [address] [place] [address] Erythrocyte distribution width (RBC) [Ratio] 12.7 % Normal 11.5-15.0 [facility] Comment on above: Order Comment: Speci men Type: BLOOD SPECIMEN Ordering Facility: [facility] Address: [address] [address] Performed By: #### 5 7021-8 #### [facility] CLIA [id number] [address] [place] [address] Hematocrit (Bld) [Volume fraction] 47.3 % High 36.0-46.0 [facility] Comment on above: Order Comment: Speci men Type: BLOOD SPECIMEN Ordering Facility: [facility] Address: [address] [address] Performed By: #### 5 7021-8 #### [facility] CLIA [id number] [address] [place] [address] Hemoglobin (Bld) [Mass/Vol] 15.4 g/dL Normal 11.5-15.5 [facility] Comment on above: Order Comment: Speci men Type: BLOOD SPECIMEN Ordering Facility: [facility] Address: [address] [address] Performed By: #### 5 7021-8 #### [facility] CLIA [id number] [address] [place] [address]317 Immature granulocytes (Bld) [#/Vol] 10*3/uL Normal <0.10 [facility] Comment on above: Order Comment: Speci men Type: BLOOD SPECIMEN Ordering Facility: [facility] Address: [address] [address] Performed By: #### 5 7021-8 #### [facility] CLIA [id number] [address] [place] [address]266 Immature granulocytes/100 WBC (Bld) 0.2 % Normal [facility] Comment on above: Order Comment: Speci men Type: BLOOD SPECIMEN Ordering Facility: [facility] Address: [address] [place] [address] Performed By: #### 5 7021-8 #### [facility] CLIA [id number] [address] [place] [address] Lymphocytes (Bld) [#/Vol] 1.42 10*3/uL Normal 1.00-4.00 [facility] Comment on above: Order Comment: Speci men Type: BLOOD SPECIMEN Ordering Facility: [facility] Address: [address] [place] [address] Performed By: #### 5 7021-8 #### [facility] CLIA [id number] [address] [place] [address] 86185 Lymphocytes/100 WBC (Bld) 26.2 % Normal [facility] Comment on above: Order Comment: Speci men Type: BLOOD SPECIMEN Ordering Facility: [facility] Address: [address] [place] [address] Performed By: #### 5 7021-8 #### [facility] CLIA [id number] [address] [place] [address] 21686 MCH (RBC) [Entitic mass] 30.3 pg Normal 26.0-34.0 [facility] Comment on above: Order Comment: Speci men Type: BLOOD SPECIMEN Ordering Facility: [facility] Address: [address] [address] Performed By: #### 5 7021-8 #### [facility] CLIA [id number] [address] [place] [address]1630 MCHC (RBC) [Mass/Vol] 32.6 g/dL Normal 30.5-36.0 [facility] Comment on above: Order Comment: Speci men Type: BLOOD SPECIMEN Ordering Facility: [facility] Address: [address] [address] Performed By: #### 5 7021-8 #### [facility] CLIA [id number] [address] [place] [address]14[address] MCV (RBC) [Entitic vol] 92.9 fL Normal 80.0-100.0 [facility] Comment on above: Order Comment: Speci men Type: BLOOD SPECIMEN Ordering Facility: [facility] Address: [address] [address] Performed By: #### 5 7021-8 #### [facility] CLIA [id number] [address] [place] [address]673 Monocytes (Bld) [#/Vol] 0.61 10*3/uL Normal <0.87 [facility] Comment on above: Order Comment: Speci men Type: BLOOD SPECIMEN Ordering Facility: [facility] Address: [address] [address] Performed By: #### 5 7021-8 #### [facility] CLIA [id number] [address] [place] [address] 78437 Monocytes/100 WBC (Bld) 11.3 % Normal [facility] Comment on above: Order Comment: Speci men Type: BLOOD SPECIMEN Ordering Facility: [facility] Address: [address] [address] Performed By: #### 5 7021-8 #### [facility] CLIA [id number] [address] [place] [address] 13259 Neutrophils (Bld) [#/Vol] 3.19 10*3/uL Normal 1.45-7.50 [facility] Comment on above: Order Comment: Speci men Type: BLOOD SPECIMEN Ordering Facility: [facility] Address: [address] [address] Performed By: #### 5 7021-8 #### [facility] CLIA [id number] [address] [place] [address] 09234 Neutrophils/100 WBC (Bld) 58.8 % Normal [facility] Comment on above: Order Comment: Speci men Type: BLOOD SPECIMEN Ordering Facility: [facility] Address: [address] [address] Performed By: #### 5 7021-8 #### [facility] CLIA [id number] [address] [place] [address] 81940 Nucleated RBC (Bld) [#/Vol] 10*3/uL Normal <0.01 [facility] Comment on above: Order Comment: Speci men Type: BLOOD SPECIMEN Ordering Facility: [facility] Address: [address] [address] Performed By: #### 5 7021-8 #### [facility] CLIA [id number] [address] [place] [address] 02822 Nucleated RBC/100 WBC (Bld) [Ratio] 0.0 /100 WBC Normal [facility] Comment on above: Order Comment: Speci men Type: BLOOD SPECIMEN Ordering Facility: [facility] Address: [address] [address] Performed By: #### 5 7021-8 #### [facility] CLIA [id number] [address] [place] [address] 18445 Platelet mean volume (Bld) [Entitic vol] 10.7 fL Normal 9.0-12.7 [facility] Comment on above: Order Comment: Speci men Type: BLOOD SPECIMEN Ordering Facility: [facility] Address: [address] Performed By: #### 5 7021-8 #### [facility] CLIA [id number] [address] [place] [address] 68541 Platelets (Bld) [#/Vol] 197 10*3/uL Normal 150-400 [facility] Comment on above: Order Comment: Speci men Type: BLOOD SPECIMEN Ordering Facility: [facility] Address: [address] [place] [address] Performed By: #### 5 7021-8 #### [facility] CLIA [id number] [address] [place] [address] 64374 RBC (Bld) [#/Vol] 5.09 10*6/uL Normal 3.90-5.20 [facility] Comment on above: Order Comment: Speci men Type: BLOOD SPECIMEN Ordering Facility: [facility] Address: [address] [place] [address] Performed By: #### 5 7021-8 #### [facility] CLIA [id number] [address] [place] [address] 45787 WBC (Bld) [#/Vol] 5.42 10*3/uL Normal 3.70-11.00 [facility] Comment on above: Order Comment: Speci men Type: BLOOD SPECIMEN Ordering Facility: [facility] Address: [address] [place] [address] Performed By: #### 5 7021-8 #### [facility] [place] [id number] [address] [place] [address] CNOVSPon 05-15-2022 CNOVSP Visit (SP) Office ([place]) ----- KATARINA CAMARA ([id number]) 1945 F Date Time Provider Department 05/15/22 3:00 PM RUTH ANN GUTIERRES During your visit today, we recorded the following information about you: Temperature Pulse Respiration Blood pressure 97.5 degrees 87/minute 18/minute 158/97 Weight Height 101 kg 1.55 m Ruth Ann Gutierres PA-C 05/15/2022 4:24 PM Signed (Elements copied from Dr. Turner's note dated May 16, 2021, have been reviewed and updated where appropriate, and all reflect current assessment and medical decision making during today's encounter, May 15, 2022) CHIEF COMPLAINT: right lower inner breast cancer HISTORY OF PRESENT ILLNESS: Katarina Camara is a 76 year old woman who presents for follow up of above. 01/2016 : Had report of symptoms from 01/2016 with discomfort of the right breast at the 3:00 position. : 01/27/16 screening mammogram with 2cm asymmetry within the posterior lower-inner quadrant. 02/14/16 : imaging with diagnostic mammogram notes 1.7 x 1.0 cm heterogeneous mass at the 3:00 position. Biopsy recommended and completed : biopsy completed 02/2016 noted invasive ductal carcinoma ER/AR positive, HER2 negative. : Lumpectomy completed 03/21/16 noted grade 2 invasive ductal carcinoma, DCIS grade 2, 14 mm : Margins negative (discussed with the pathologist who assured negative margins but that the anterior margin was within 1.0mm anteriorly). : [place] lymph node was positive for involvement. 06/25/16 : completes four cycles of TC, discussed alternative regimens including AC followed by taxol- patient deferred 09/2016 : completes adjuvant radiation : starts arimidex 10/2016 : starts letrozole and remains on therapy 07/2017 : letrozole on brief hold due to increasing symptoms but resumed 11/2017 : completes left hip replacement December 2018: Bone density with osteopenia, lowest T score of -1.4. Mar 2021: Mammogram bilateral- Negative March 2022: Mammogram bilateral -negative Returns today for follow up. Feeling well overall. Remains on femara without any complaints. Her PCP did start her on fosamax in 2021 due to her dexa scan showing osteopenia. She is feeling well and is planning on doing day care in her home. PAST MEDICAL HISTORY Diagnosis Date CHF (congestive heart failure) (HCC) Diabetes mellitus (HCC) Fibromyalgia Hypertension Hypothyroidism Invasive ductal carcinoma of right breast (HCC) ER/AR+ HER2- PAST SURGICAL HISTORY Procedure Laterality Date APPENDECTOMY BREAST BIOPSY CHOLECYSTECTOMY HX HYSTERECTOMY HX PAST SURGICAL HISTORY OF Left cyst removed from ovary TOTAL HIP REPLACEMENT Right Review of Social History includes: Social History Tobacco Use Smoking status: Former Packs/day: 1.00 Years: 15.00 Pack years: 15.00 Types: Cigarettes Quit date: 06/30/1995 Years since quittin.8 Smokeless tobacco: Never Vaping Use Vaping Use: Never used Substance Use Topics Alcohol use: No Drug use: No FAMILY HISTORY Problem Relation Age of Onset other (Bladder Cancer) Brother Current Outpatient Medications Medication Sig alendronate (FOSAMAX) 70 mg tablet Take 70 mg by mouth one time a week. cholecalciferol, vitamin D3, (VITAMIN D3 ORAL) Refills(s) 0 rosuvastatin (CRESTOR) 20 mg tablet Take 20 mg by mouth once daily. For 30 days furosemide (LASIX) 20 mg tablet POTASSIUM ORAL Take by mouth. MAGNESIUM ORAL Take by mouth. BACLOFEN ORAL Take by mouth. oxaprozin (DAYPRO) 600 mg tablet Take 600 mg by mouth twice daily. carvedilol (COREG) 6.25 mg tablet Take 6.25 mg by mouth twice daily. VENTOLIN HFA 90 mcg/actuation inhaler INHALE 2 PUFFS BY MOUTH EVERY 6 HOURS NEEDED levothyroxine (SYNTHROID) 112 mcg tablet Take 112 mcg by mouth once daily. cyclobenzaprine (FLEXERIL) 10 mg tablet Take 10 mg by mouth as needed. traMADol (ULTRAM) 50 mg tablet Take 50 mg by mouth as needed. montelukast (SINGULAIR) 10 mg tablet Take 10 mg by mouth daily at bedtime. ASCORBIC ACID/MULTIVIT-MIN (EMERGEN-C ORAL) Take by mouth. amitriptyline (ELAVIL) 10 mg tablet Take 10 mg by mouth. ramipril (ALTACE) 10 mg capsule Take 10 mg by mouth once daily. aspirin 325 mg cap Take 325 mg by mouth once daily. DULoxetine (CYMBALTA) 60 mg capsule Take 60 mg by mouth once daily. folic acid 1 mg tablet Take 1 mg by mouth once daily. letrozole (FEMARA) 2.5 mg tablet Take 1 tablet by mouth once daily. No current facility-administered medications for this visit. REVIEW OF SYSTEMS: CONSTITUTIONAL: No recent fevers or chills MUSC-SKEL: Left hip feels less painful PSY: Denies depression or anxiety Cardiovascular: No current chest pain or palpitations Pulmonary: No shortness of breath, no cough no hemoptysis Lymph no new lumps or bumps Breast: Denies changes on self breast examination HEENT: No oral sores or (more content not included)... Normal [facility] Comprehensive metabolic 2000 panelon 05-15-2022 Albumin [Mass/Vol] 4.5 g/dL Normal 3.9-4.9 [facility] Comment on above: Order Comment: Speci men Type: BLOOD SPECIMEN Ordering Facility: [facility] Address: [address] [place] [address] Performed By: #### 2 4323-8 #### [facility] CLIA [id number] [address] [place] [address] ALP [Catalytic activity/Vol] 83 U/L Normal 34-123 [facility] Comment on above: Order Comment: Speci men Type: BLOOD SPECIMEN Ordering Facility: [facility] Address: [address] [address] Performed By: #### 2 4323-8 #### [facility] CLIA [id number] [address] [place] [address] ALT [Catalytic activity/Vol] 11 U/L Normal 7-38 [facility] Comment on above: Order Comment: Speci men Type: BLOOD SPECIMEN Ordering Facility: [facility] Address: [address] [address] Performed By: #### 2 4323-8 #### [facility] CLIA [id number] [address] [place] [address] Anion gap [Moles/Vol] 9 mmol/L Normal 9-18 [facility] Comment on above: Order Comment: Speci men Type: BLOOD SPECIMEN Ordering Facility: [facility] Address: [address] [address] Performed By: #### 2 4323-8 #### [facility] CLIA [id number] [address] [place] [address] AST [Catalytic activity/Vol] 20 U/L Normal 13-35 [facility] Comment on above: Order Comment: Speci men Type: BLOOD SPECIMEN Ordering Facility: [facility] Address: [address] [address] Performed By: #### 2 4323-8 #### [facility] CLIA [id number] [address] [place] [address]83 Bilirubin [Mass/Vol] 0.7 mg/dL Normal 0.2-1.3 [facility] Comment on above: Order Comment: Speci men Type: BLOOD SPECIMEN Ordering Facility: [facility] Address: [address] [place] [address] Performed By: #### 2 4323-8 #### [facility] CLIA [id number] [address] [place] [address] Calcium [Mass/Vol] 9.5 mg/dL Normal 8.5-10.2 [facility] Comment on above: Order Comment: Speci men Type: BLOOD SPECIMEN Ordering Facility: [facility] Address: [address] [place] [address] Performed By: #### 2 4323-8 #### [facility] CLIA [id number] [address] [place] [address]83 Chloride [Moles/Vol] 99 mmol/L Normal 97-105 [facility] Comment on above: Order Comment: Speci men Type: BLOOD SPECIMEN Ordering Facility: [facility] Address: [address] [address] Performed By: #### 2 4323-8 #### [facility] CLIA [id number] [address] [place] [address] CO2 [Moles/Vol] 30 mmol/L Normal 22-30 [facility] Comment on above: Order Comment: Speci men Type: BLOOD SPECIMEN Ordering Facility: [facility] Address: [address] [place], [place] [id number] Performed By: #### 2 4323-8 #### [facility] CLIA [id number] [address] [place] [address]17 Creatinine [Mass/Vol] 1.08 mg/dL High 0.58-0.96 [facility] Comment on above: Order Comment: Speci men Type: BLOOD SPECIMEN Ordering Facility: [facility] Address: [address] [address] Performed By: #### 2 4323-8 #### [facility] CLIA [id number] [address] [place] [address] ESTIMATED GLOMERULAR FILTRATION RATE 54 mL/min/1.73m??? Low >=60 [facility] Comment on above: Order Comment: Speci men Type: BLOOD SPECIMEN Ordering Facility: [facility] Address: [address] [address] Result Comment: Cathy mated Glomerular Filtration Rate (eGFR) is calculated using the 2020 CKD-EPI creatinine equation. This equation utilizes serum creatinine, sex, and age as parameters. The creatinine assay has traceable calibration to isotope dilution-mass spectrometry. Refer to KDIGO guidelines for clinical interpretation. In patients with unstable renal function, e.g. those with acute kidney injury, the eGFR may not accurately reflect actual GFR. Performed By: #### 2 4323-8 #### [facility] CLIA [id number] [address] [place] [address]42 Glucose [Mass/Vol] 94 mg/dL Normal 74-99 [facility] Comment on above: Order Comment: Speci men Type: BLOOD SPECIMEN Ordering Facility: [facility] Address: [address] [address] Result Comment: The [place] Diabetes Association (ADA) provides guidance for cutoff values for fasting glucose and random glucose. The ADA defines fasting as no caloric intake for at least 8 hours. Fasting plasma glucose results between 100 to 125 mg/dL indicate increased risk for diabetes (prediabetes). Fasting plasma glucose results greater than or equal to 126 mg/dL meet the criteria for diagnosis of diabetes. In the absence of unequivocal hyperglycemia, results should be confirmed by repeat testing. In a patient with classic symptoms of hyperglycemia or hyperglycemic crisis, random plasma glucose results greater than or equal to 200 mg/dL meet the criteria for diagnosis of diabetes. Reference: Standards of Medical Care in Diabetes 2016, [place] Diabetes Association. Diabetes Care. 2016.39(Suppl 1). Performed By: #### 2 4323-8 #### [facility] CLIA [id number] [address] [place] [address]49 Potassium [Moles/Vol] 4.2 mmol/L Normal 3.7-5.1 [facility] Comment on above: Order Comment: Speci men Type: BLOOD SPECIMEN Ordering Facility: [facility] Address: [address] [address] Performed By: #### 2 432-8 #### [facility] CLIA [id number] [address] [place] [address] 99485 Protein [Mass/Vol] 6.7 g/dL Normal 6.3-8.0 [facility] Comment on above: Order Comment: Speci men Type: BLOOD SPECIMEN Ordering Facility: [facility] Address: [address] [address] Performed By: #### 2 4322-8 #### [facility] CLIA [id number] [address] [place] [address]6662 Sodium [Moles/Vol] 138 mmol/L Normal 136-144 [facility] Comment on above: Order Comment: Speci men Type: BLOOD SPECIMEN Ordering Facility: [facility] Address: [address] [address] Performed By: #### 2 4323-8 #### [facility] CLIA [id number] [address] [place] [address] 29768 Urea nitrogen [Mass/Vol] 15 mg/dL Normal 7-21 [facility] Comment on above: Order Comment: Speci men Type: BLOOD SPECIMEN Ordering Facility: [facility] Address: [address] [address] Performed By: #### 2 4323-8 #### [facility] CLIA [id number] [address] [place] [address] CBC AUTO DIFFon 04-24-2022 BASO # 0.0 103/ul Normal 0.0-0.1 [facility] Comment on above: Performed By: #### C BC #### [facility] [address] [address] [address] Mag Charles Basophils/100 WBC (Bld) 0.7 % Normal 0.2-2.0 [facility] Comment on above: Performed By: #### C BC #### [facility] [address] [address] [address] Mag Charles EO # 0.2 103/ul Normal 0.0-0.7 [facility] Comment on above: Performed By: #### C BC #### [facility] [address] [place] [address] Dr. Mag Charles Eosinophils/100 WBC (Bld) 3.0 % Normal 0.9-7.0 [facility] Comment on above: Performed By: #### C BC #### [facility] [address] [place] [address] Dr. Mag Charles Erythrocyte distribution width (RBC) [Ratio] 13.1 % Normal 11.0-15.0 [facility] Comment on above: Performed By: #### C BC #### [facility] [address] [place] [address] Dr. Mag Charles Hematocrit (Bld) [Volume fraction] 45.7 % Normal 36.0-48.0 [facility] Comment on above: Performed By: #### C BC #### [facility] [address] [address] [address] Mag Charles Hemoglobin (Bld) [Mass/Vol] 15.2 g/dL Normal 12.0-16.0 [facility] Comment on above: Performed By: #### C BC #### [facility] [address] [place] [address] Dr. Mag Charles IG # 0.02 10e3/ul Normal 0.00-0.03 [facility] Comment on above: Performed By: #### C BC #### [facility] [address] [place] [address] Dr. Mag Charles IG % 0.3 % Normal 0.0-0.5 [facility] Comment on above: Performed By: #### C BC #### [facility] [address] [place] [address] Dr. Mag Charles LYMPH # 1.5 103/ul Normal 1.2-3.8 [facility] Comment on above: Performed By: #### C BC #### [facility] [address] [place] [address] Dr. Mag Charles Lymphocytes/100 WBC (Bld) 25.7 % Normal 20.5-60.0 [facility] Comment on above: Performed By: #### C BC #### [facility] [address] [place] [address] Dr. Mag Charles MANUAL DIFF REQ NO Normal [facility] Comment on above: Performed By: #### C BC #### [facility] [address] [place] [address] Dr. Mag Charles MCH (RBC) [Entitic mass] 30.2 pg Normal 26.7-34.0 [facility] Comment on above: Performed By: #### C BC #### [facility] [address] [place] [address] Dr. Mag Charles MCHC (RBC) [Mass/Vol] 33.3 g/dL Normal 29.9-35.2 [facility] Comment on above: Performed By: #### C BC #### [facility] [address] [place] [address] Dr. Mag Charles MCV (RBC) [Entitic vol] 90.7 fL Normal 81.0-99.0 [facility] Comment on above: Performed By: #### C BC #### [facility] [address] [place] [address] Dr. Mag Charles MONO # 0.6 103/ul Normal 0.3-0.8 [facility] Comment on above: Performed By: #### C BC #### [facility] [address] [place] [address] Dr. Mag Charles Monocytes/100 WBC (Bld) 10.4 % Normal 1.7-12.0 [facility] Comment on above: Performed By: #### C BC #### [facility] [address] [place] [address] Dr. Mag Charles NEUT # 3.6 103/ul Normal 1.4-6.5 [facility] Comment on above: Performed By: #### C BC #### [facility] [address] [place] [address] Dr. Mag Charles Neutrophils/100 WBC (Bld) 59.9 % Normal 43.0-75.0 [facility] Comment on above: Performed By: #### C BC #### [facility] [address] [place] [address] Dr. Mag Charles Platelet mean volume (Bld) [Entitic vol] 10.2 fL Normal 9.5-13.5 [facility] Comment on above: Performed By: #### C BC #### [facility] [address] [place] [address] Dr. Mag Charles PLT 175 103/ul Normal 150-450 [facility] Comment on above: Performed By: #### C BC #### [facility] [address] [place] [address] Dr. Mag Charles RBC 5.04 106/ul Normal 4.20-5.40 [facility] Comment on above: Performed By: #### C BC #### [facility] [address] [place] [address] Dr. Mag Charles WBC 6.0 103/ul Normal 4.0-11.0 [facility] Comment on above: Performed By: #### C BC #### [facility] [address] [place] [address] Dr. Mag Charles GLYCOHEMOGLOBIN A1Con 2022 ADA RECOMMENDATION SEE BELOW Normal [facility] Comment on above: Result Comment: ADA RECOMMENDED LIMIT 4.0 - 6.0 ADA THERAPEUTIC TARGET < 7.0 ACTION SUGGESTED > 7.0 Performed By: #### C VDTBH #### [facility] [address] [address] [address] Mag Charles Glucose [Mass/Vol] 123 mg/dL Normal [facility] Comment on above: Performed By: #### C VDTBH #### [facility] [address] [address] [address] Mag Charles HbA1c (Bld) [Mass fraction] 5.9 % Normal 4.5-6.2 [facility] Comment on above: Performed By: #### C VDTBH #### [facility] [address] [address] [address] Mag Charles LIPID PROFILEon 04-24-2022 CHOL-HDL RATIO NORM SEE BELOW Normal [facility] Comment on above: Result Comment: 3.3 - 4.4 LOW RISK 4.4 - 7.1 AVERAGE RISK 7.1 - 11.0 MODERATE RISK >11.0 HIGH RISK Performed By: #### T SH, CMP, LIPID #### [facility] [address] [place] [address] Dr. Mag Charles Cholesterol [Mass/Vol] 169 mg/dL Normal <=200 [facility] Comment on above: Performed By: #### T SH, CMP, LIPID #### [facility] [address] [place] [address] Dr. Mag Charles Cholesterol in HDL [Mass/Vol] 49 mg/dL Normal 40-60 [facility] Comment on above: Performed By: #### T SH, CMP, LIPID #### [facility] [address] [place] [address] Dr. Mag Charles Cholesterol in LDL [Mass/Vol] 83.2 mg/dL Normal [facility] Comment on above: Performed By: #### T SH, CMP, LIPID #### [facility] [address] [place] [address] Dr. Mag Charles Cholesterol.total/Chol esterol in HDL [Mass ratio] 3.4 {ratio} Normal [facility] Comment on above: Performed By: #### T SH, CMP, LIPID #### [facility] [address] [place] [address] Dr. Mag Charles HDL NORMAL > or = 60 mg/dl - LO W CARDIOVASCULAR RISK <40 mg/dl - HIGH CARDIOVASCULAR RISK Normal [facility] Comment on above: Performed By: #### T SH, CMP, LIPID #### [facility] [address] [address] [address] Mag Charles LDL CALC NORMAL SEE BELOW Normal [facility] Comment on above: Result Comment: <100 mg/dl OPTIMAL 100 - 129 mg/dl NEAR OR ABOVE OPTIMAL 130 - 159 mg/dl BORDERLINE HIGH 160 - 189 mg/dl HIGH >190 mg/dl VERY HIGH Performed By: #### T SH, CMP, LIPID #### [facility] [address] [address] [address] Mag Charles Triglyceride [Mass/Vol] 184 mg/dL Critically high <=150 [facility] Comment on above: Performed By: #### T BRENDA, CMP, LIPID #### [facility] [address] [address] [address] Mag Charles VLDL CALC 36.8 mg/dL Normal [facility] Comment on above: Performed By: #### T SH, CMP, LIPID #### [facility] [address] [address] [address] Mag Charles PROF 14(COMP METB)on 023 Albumin [Mass/Vol] 3.9 g/dL Normal 3.4-5.0 [facility] Comment on above: Performed By: #### T SH, CMP, LIPID #### [facility] [address] [address] [address] Mag Charles Albumin/Globulin [Mass ratio] 1.3 {ratio} Normal [facility] Comment on above: Performed By: #### T SH, CMP, LIPID #### [facility] [address] [address] [address] Mag Charles ALP [Catalytic activity/Vol] 71 U/L Normal 46-116 [facility] Comment on above: Performed By: #### T SH, CMP, LIPID #### [facility] [address] [address] [address] Mag Charles ALT [Catalytic activity/Vol] 23 U/L Normal 14-59 [facility] Comment on above: Performed By: #### T SH, CMP, LIPID #### [facility] [address] [place] [address] Dr. Mag Charles Anion gap [Moles/Vol] 7.8 mmol/L Normal [facility] Comment on above: Performed By: #### T SH, CMP, LIPID #### [facility] [address] [place] [address] Dr. Mag Charles AST [Catalytic activity/Vol] 22 U/L Normal 15-37 [facility] Comment on above: Performed By: #### T BRENDA, CMP, LIPID #### [facility] [address] [place] [address] Dr. Mag Charles Bilirubin [Mass/Vol] 0.7 mg/dL Normal 0.2-1.0 [facility] Comment on above: Performed By: #### T SH, CMP, LIPID #### [facility] [address] [place] [address] Dr. Mag Charles Calcium [Mass/Vol] 9.2 mg/dL Normal 8.5-10.1 [facility] Comment on above: Performed By: #### T SH, CMP, LIPID #### [facility] [address] [place] [address] Dr. Mag Charles Chloride [Moles/Vol] 104 mmol/L Normal 98-107 [facility] Comment on above: Performed By: #### T SH, CMP, LIPID #### [facility] [address] [place] [address] Dr. Mag Charles CO2 [Moles/Vol] 32.0 mmol/L Normal 21.0-32.[address] [facility] Comment on above: Performed By: #### T SH, CMP, LIPID #### [facility] [address] [place] [address] Dr. Mag Charles Creatinine [Mass/Vol] 1.15 mg/dL Critically high 0.55-1.02 [facility] Comment on above: Performed By: #### T SH, CMP, LIPID #### [facility] [address] [address] [address] Mag Charles EGFR-AF UKRAINIAN 56 mL/min/1.73m2 Critically low >=60 [facility] Comment on above: Performed By: #### T SH, CMP, LIPID #### [facility] [address] [address] [address] Mag Charles EGFR-NON AF UKRAINIAN 46 mL/min/1.73m2 Critically low >=60 [facility] Comment on above: Performed By: #### T SH, CMP, LIPID #### [facility] [address] [address] [address] Mag Charles Globulin (S) [Mass/Vol] 3.1 g/dL Normal [facility] Comment on above: Performed By: #### T SH, CMP, LIPID #### [facility] [address] [place] [address] Dr. Mag Charles Glucose [Mass/Vol] 102 mg/dL Normal 74-106 [facility] Comment on above: Performed By: #### T SH, CMP, LIPID #### [facility] [address] [place] [address] Dr. Mag Charles Potassium [Moles/Vol] 4.8 mmol/L Normal 3.5-5.1 [facility] Comment on above: Performed By: #### T SH, CMP, LIPID #### [facility] [address] [place] [address] Dr. Mag Charles Protein [Mass/Vol] 7.0 g/dL Normal 6.4-8.2 [facility] Comment on above: Performed By: #### T SH, CMP, LIPID #### [facility] [address] [place] [address] Dr. Mag Charles Sodium [Moles/Vol] 139 mmol/L Normal 136-145 [facility] Comment on above: Performed By: #### T SH, CMP, LIPID #### [facility] [address] [place] [address] Dr. Mag Charles Urea nitrogen [Mass/Vol] 15.0 mg/dL Normal 7.0-18.0 [facility] Comment on above: Performed By: #### T SH, CMP, LIPID #### [facility] [address] [place], [place] [address] Dr. Mag Charles Urea nitrogen/Creatinine [Mass ratio] 13.0 mg/mg Normal [facility] Comment on above: Performed By: #### T SH, CMP, LIPID #### [facility] [address] [place], [place] [address] Dr. Mag Charles TSHon 04-24-2022 TSH 2.057 uIU/mL Normal 0.358-3.74 0 [facility] Comment on above: Performed By: #### T SH, CMP, LIPID #### [facility] [address] [place], [place] [address] Dr. Mag Charles MG MAMM SCREEN 3D DA CADon 04-03-2022 MG MAMM SCREEN 3D DA CAD Patient: KATARINA CAMARA Exam Date: 04/03/2022 : 1945 Gender:F Ordering : ROSA TURNER Admission #: [id number] Family : DR NICOLE VARGAS M.D. Order #: [id number] CLICK HERE TO VIEW EXAM RADIOLOGY REPORT PROCEDURE: MAMMOGRAM SCREENING 3D BILATERAL CAD COMPARISON: MG MAMM DA DIAG W CAD, 04/01/2020. MG MAMM DA DIAG W CAD, 03/31/2019. MG MAMM DA SCRN W CAD DIG, 10/20/2010. MG MAMM DIAGNOSTIC 3D DA CAD, 03/28/2021. INDICATIONS: Screening mammography Calculator Name NCI Breast Cancer Risk Assessment Tool 5 Year Breast Cancer Risk n/a% Lifetime Breast Cancer Risk n/a% Personal Breast Cancer Yes, 69 Personal Ovarian Cancer No Treatments radiation and chemotherapy Family Cancers None LOCATION: [facility] BREAST COMPOSITION: Scattered areas fibroglandular density. FINDINGS: DIAGNOSTIC CATEGORY 2--BENIGN FINDING: RIGHT BREAST: No significant suspicious finding. Scattered benign-appearing calcifications are present. No significant change has occurred. LEFT BREAST: No significant suspicious finding. No significant change has occurred. RECOMMENDATIONS: ROUTINE MAMMOGRAM AND CLINICAL EVALUATION IN 12 MONTHS. PLEASE NOTE: A NORMAL MAMMOGRAM DOES NOT EXCLUDE THE POSSIBILITY OF BREAST CANCER. A CLINICALLY SUSPICIOUS PALPABLE LUMP SHOULD BE BIOPSIED. Dictated by: Pepper Wood M.D. on 04/03/2022 at 15:02 Approved by: Pepper Wood M.D. on 04/03/2022 at 15:05 [facility] MRA HEAD WO CONon 10-31-2021 MRA HEAD WO CON EXAMINATION: MRA HEA D WO CON HISTORY: FH: Cardiovascular disease ; family history of aneurysms COMPARISON: MRI brain 05/07/2017 TECHNIQUE: MR angiography was performed in the usual manner. Multiplanar reconstructed 2D and 3D images of the cerebral arteries were created and interpreted. FINDINGS: INTERNAL CAROTIDS: No visible stenosis or aneurysm. ANTERIOR CEREBRALS: No visible stenosis or aneurysm. MIDDLE CEREBRALS: No visible stenosis or aneurysm. POSTERIOR CEREBRALS: No visible stenosis or aneurysm. BASILAR: No visible stenosis or aneurysm. VERTEBRALS: No visible stenosis or aneurysm. OTHER: Negative with no evidence of a vascular malformation. Brain: No hemorrhage, mass, or abnormal atrophy. IMPRESSION: 1. No aneurysm or suspicious vascular findings. 2. Age consistent atrophy and minimal chronic small vessel ischemic changes. Electronically authenticated by: PEPPER WOOD Date: 2021-10-31 11:01 [facility] Consent Formson 02-14-2021 Consent Forms [id number]#1.00OTGTI [facility] Provider Orderson 02-10-2021 Provider Orders [id number]#1.00OTGTI [facility] Coding Summaryon 02-08-2021 Coding Summary [facility] GbtozxgmMPr9wLq+PGhlYWQ+P A5BGHQzT62qgSIvtT7XQ2wBSG 7BGZVAELPKKF5CTB1jrIL5BMl nC1GatsWx ZdldwHSdUX74MCr7GUN8zPciA ZirvI2klKDfK0n2QdUtDL35fL 32SJgzTWHwIvK5YkHzscxjfXT y L7cgKqHslWFgUtj+PHRhYmxlI HdpZHRoPScxMDAlJyBzdHlsZT 7eTl4uCHPlOWOatZemwUXrQtC j e7fuAUQrRLxdYL4tpCwpM4Jhm SG2DWLtv5e4Ow40mNE+PHRkIH K0jNvxYCzsd782ZsTos1pnTCF 3 nLCfPCftMPI0T36nn6M6PIHdR ANrKRH8bYA6kP8myVzoqtmuB2 OooCYlOjO0TLW4gSQyhZ9boNl n msiwtM9mQvj+F96ALF1YQCRQM Z4UZlh9M7ZtBfixxIQ+PC90YW EhVB16mZUzgSFdj5pgoQy9PiA w WGZyWVZ8hBnsIYljf9NzLRYuT 43wgISmg2L2PQTapQsnqXAjRt FiiXQ0dH7sYCaikvkyg3vfjgm n Rbmhg0bwsi41gH58R38lMVtqZ RDyLWO6ZELwYNVwoBpubv6roJ 9wIi8+VLspt6svh5xdgDb8ToG w HOMiuwMdcJtpTMQ5e3IxHz56A 7MosOmxi6VpKmu0ob51oPPgf1 P7iQU6CMygGEQhsV2bDWpgNsF 6 GMGfSsLwfI22vRCgAZzjFi8va OlufBdaJG4rLLUgzwnsWOIjcG 5tCYFqcMPkuVwcBU1iFYKbafi m h074YbGtVXK7MTSjkMMwE7Hgq B6dXiKiCRVuQCXpH2AtvFSvNF bnQ936LSpnVxD1WQKkzpUgN9S s KZKaqZruMsW9v6G6Qv8Lr1Fua wlrKFI9TKckQOGiLzS1QuGjMu Z9R9PaZhi6DLEdbGpyWV0xV1E h GEAbzwnmamhzeRF9GVOjZFEgh W30eRJxEHdhQl0dp8N9v996DR GjNUDsmG73Og3tqWehAUUbrKN U wJ8zbcdqv2egjsseGlNdNBGiK Yu7BEk8KEMgmVpzUqXmRQX2Tx P4CWB2iGYneB8pvLigdygtbP3 w Oyc+U73inO1mBIE3UMQ5pesmB CLcstUhPO18WQ50Z2UtMonegL FibGU+KAMzmgKitXnpEN4sKrY j r5ano5NlBWyyR8KhOTUtURwlW ff5AGQiMNE9uCU7vB5vARUeOY jyo3N9bSI1V3DamhFssz6pk0s s PEQeUKqvQ18ouHWfx3S6ATTka MO3OCRfgTlgAcNgbN17Ayy+PG LexYvwb8AwEtqam5ezb4przTt 9 ZgEgGBOowpCawDmjVGA3e2MxW z28H36jSFtxDYLkXICeWDCmTN WyyDmddo3oeI9fZi2+PGNvbCB 3 vBF1pJ4bGAXrPpW8GTjtT335L gUoiZInPmbqh4ymu6gkgBs3Vu BoXACpgqUkiBobPZT9q2FgDw7 8 U23oQKyzGGAwENRgABPiOUEpy Dormt9uuO9rIp5+QG5yi7nidn 61cX58cED+FFNuCEQ6tAzmRWm w XHMynD2oVCfjMjY5IWCgRpJtj C20dXPlABfhHk4jwVknkQtqRJ 1iYJFbvfomr158SmZrz6rlBTE w nEDrNKdhWOW9K61bc4P8QTOhE UNgMCH8eUH1nV0orKnavgchfQ BaqEuacpEwdBqrLMltIVtiB29 6 IHRvcDsnPlBhdGllbnQgTmFtZ Qw3Q2XsGci6KGUzfQpvFV4ssH GcJRvmWw5czTtgcIxkRG3xPQY p ijlzu871QcVzd0loSEMjoSUjC JpkFXE5L02fm0V7GCYmCPZfCH B6uLL7dS0lbVswiiwsoATybFv g njYjhWulXKefGDtkR299QMYjt ZkhMtQrsgEgUCTlxZE5GW01MT 66xFYra6B0vSQ3R4QgFHJjcoq t xvcsiFS5RCFaXRUvyM51Rf8ue BzpSp9zKNEaQHQ5QIWlbYAxW1 QxoU6nHnRbMCUyPJVfD5AskNF t ATivH921HPqsSuQ5DOPyfjSkY 6BqATJouXocJhP6r4N0La5JQ8 P0GB08KN51kXFof6J8yKT8G3J h VDVstrmqfuwlvYF0KUTfKIRgj G14Aa6ewDvbCk9zRBMaIDR8PZ MsdQYuC4IdnQ0tNvRcIQKxBEK w U8ChwKVsGZypD122JOutCvJ2M UVbhjPsH0TiIYZbfHbfXgZ3j7 R6Dj9SFJr3LH04PZ05hHTnr5I 5 iOL3O4RfLSQqhvlndtiwqIJ5Q FQaZLTouE33Pp7eyAycUc3iTV RjYZV8HTYblKVmI4IziM0kWdA j HVTwIPUjN5CmqATmSPfxU366Y GdpDtY5LYKuigWtI8YuSPXgfZ mhFzC3l6T1Gc8XMOYrFS03PJT 5 pOK2BX65NC48O5PcRprroNDgo +PHRhYmxlIHdpZHRoPScxMD UjCdEdbOmwUM9bKj5cQWPiXXJ v pKpdnXYvUwTxx1prTUNyJCjaC Q5tcHbvT7DmoEZ3WMIvs3z1Ca 35B66nU4DrhQN+YBJouPA3iMK 0 tR9iVkMuPtO5JLckB648VmApi GVbDtigl5wgd3uusZl5MmE7HP VdwyQjbPowBIE0y1TbRt83R65 s IHdpZHRoPSIxNSUiIHZhbGlnb w5glK5cIa3+OEGlxJI7vAI2oC 4zByAhAjF2OBmwH852YtZujWK v Kqhwd3vhb0dtmBm7WdTyBIJhi xLvqQuuYEJ7y4PhYx05X7WdcS dsv5UbLor3uw52wNMtn5S5hMR 9 O9ArVCTnbatgfNUloLczOB5hV VKysvluIFEnjS9gJLNuS2m3Yu LgWsU0MEqmF6NvtuH1SGOlrJL g YGsbFYB4L16tc7R6WPXbNMBaS IJ8jQF0bW2wbXafelnvaBAhpS jbmtTsmRafDIbwICywV325IPQ v yYtnAHGmhA5vARHdrIIcuQmdT E7fSOXwdthaKo4RDZ0YSAzgJm 6OD1OuCTmdbIG+SZLkTFZ2kSy l XDzvZJPkbI0bDFIwM7w6PiDbU pA8NVpvE0EdZYSukuzuOw83eU 2gSqGjBnF9ARvfW7WrhcT1JWH w hQViMZpvHRU4L94xy1I0PDOdE HEkKQO6gMF5zR4hrCpogkhanT PpjHiesdMhsYpxFVecUXumB21 6 GCRrnIktNrS8XrWyOjZ6VIv4N 9AwRwc2TCNesFpwTS7kqSBuQN wlEa8ujVzoxHdhSE4oEMOcycj w YYVqzE8nCJOkhQTkxAsySL9nD NOzblfuo438EfSyITG9STQarV FeB8ClxQ7fSmDfJUBtTVIbI0G l bAIsNSgeC905HHueLqG1PPHoz aQbE2JvLNUlcFmyIgH2a4V4Le 43MyBZZWFyczwvdGQ+PHRkIHN 0 fXizSJehRZAxaT9cERSuS8u9B mNeDvG2FYgeY3RkCXXpuolzQa 96oM1zGiXeQwQ9UPccV3ArbqJ 6 IHDtdBErTMgnKKD5W64lh7L0V EToDFIzLYR1aNZ4vF7auAtqan ogbGVmdDsgdmVydGljYWwtYWx p S477MBDuqDuxYnXIQKBJOJiaw GQ+KDNfKLO7xLayKDjwEQWonN 8hRQWzZ3e5QgPlImX8YBjpZ6U h MEYlqnbqHe07lI5kFsKmQnX2X NttI4ZlzyD8MLJtrZJxDCytIB U6I87ff3W6KCNbAXNsQQY4eGK 4 cW3rgYkpkiajqDDsnNaogdMjh UfsOLznTKqqP051WRLcuPqfMs 9tz4QhlzL9fJ8gAN57PV49R1W y PjwvdGFibGU+PHRhYmxlIHdpZ AOkMVadDWZxYhWxgOxlDV9pWe 3cDPMpTFDglCulsQHzDfLzn7f s BAGwHXbpRX0cxGaxG2CcnLD9I DUqq5u7Ll51Z79iH0UfsEO+PG WwuSS9hIJ5yG2rUwRkIwR9RWn p I522FxVjoDZqTtwsy9vqj3mzg Bh4LhKnETOcgrQiaWcbBEH4r0 IpHc81Q63rBMfqCFZnFXMyMDP i PFRskSbgnv9dgM7mTk1+PGNvb MG2uII3eC2wZoWzXbU1PPpeC5 41UyBseACzGenrK12xR5PqrLM + JESvKag1FTCpnBteYB2ieDSnV VonUz5mPPB8IwHqEqLsMItwX1 MiEZDxluybblhjsTA9ZPKuNBW w mP40Uh7rpDrsDa8aLCWnHSH4K NHhuNTcX0CpnA4mNgOkMTNrLF MdA1OvcZNqQUddV506TIlmRmV 7 PLIvysZfK0RtANOyuXblLuR7f 5E0Fo8WpEuipEQdYV1hZsHmYD a8G5GfVsw3XZEstGrkKS9vdZO k XCmqBp2xeNiyiOjbNL1vNZFky eqgb863RaOix1tiPQPvyCOwXQ clAPI0F66zu4J5TMBnJGVwQUZ 7 aXG3hR6eaKwoxipfoOWcwBavq aHbtNoaEZblSFmzW171FDTyyW trLkSREak0V8HpBow5BISkvId s SV8sdHWeEJglLz1qnQgdcVqiP K0jNGVsxtpyh589KhIwt5avCA KyxKQwFLviXRA0L81as8U3XKP w TSSfKAC9xCK7vI0yjLtbrxabn GVmdDsgdmVydGljYWwtYWxpZ2 51EKMocHmjXd1SQfi1Q6SlBrt 0 LILfnYvcGQ5bmMTyVKcrGl3aa XdbuDpfKC1jGVWczzmav516Es Xsn4xmEMQugQEbQYqgYZK4F92 s y1G1XPAjSOLnTLA0iVJ5uX8yb GlnbjogbGVmdDsgdmVydGljYW cbCKbkY541KCQswTeoYtCcrQZ y OjwvdGQ+KF06ni01X5IzYpowF pz3ITCiVLF0oBM3cO6mGDMaNC ivv9S1oBO2T3VcczZbqz8na2e s YXB (more content not included)... [facility] Consent Formson 02-08-2021 Consent Forms [id number]#1.00OTGTI [facility] Consent Forms [id number]#1.00OTGTI FF [facility] Discharge Instructionson Discharge Instructions [id number]#1.00OTGTI FF [facility] Inpatient Patient Summaryon 02-08-2021 Inpatient Patient Summary [id number] [place] [address] Patient Discharge Instructions Name: KATARINA CAMARA : 1945 Patient Address: [address] [place] [address] Primary Care Provider: Name: NICOLE VARGAS MD After you are discharged if you find you have any questions, please, call [phone] ext [phone] to speak to a nurse. Discharge Diagnosis: Chronic right hip pain; Other chronic pain; Primary localized osteoarthritis of right hip Prescription Information: If you have been given a prescription for narcotics, seek immediate medical attention if you have any difficulty breathing or any sudden status changes such as confusion and sleepiness. If you or anyone you know is experiencing suicidal thoughts, mental health, alcohol and/or drug addiction problems; contact the [facility] 24/09 Crisis Hotline -Text 4HOPE to 623309. If you received any narcotics, sedation, or any other medication that causes drowsiness for the next 24 hours, unless otherwise directed: ? Do not drive a car. ? Do not operate machinery such as power tools, lawn mowers, drills, sewing machines, or stoves ? Avoid alcoholic beverages and drugs for allergies, nerves, or sleep ? Do not make important personal or business decisions or sign any legal documents [facility] would like to thank you for allowing us to assist you with your healthcare needs. The following includes patient education materials and information regarding your injury/illness. REGINA CAMARAYCStella Douglas has been given the following list of follow-up instructions, prescriptions, and patient education materials: Follow-up Instructions With: Address: When: Bernadine Diaz [address] [place] [id number] Business (1) 12/17/2020 11:00 AM With: Address: When: NICOLE VARGAS [address] [place] [address] [employer] (1) Medications During the course of your visit, your medication list was updated with the most current information. The details of those changes are reflected below: Medications That Were Updated - Follow Below Instructions Other Medications Updated: ramipril (ramipril 10 mg oral capsule) 1 cap(s) Oral every day. Updated: traMADol (traMADol 50 mg oral tablet) 1 tab(s) Oral Every 4 hours as needed as needed for pain. Medications to Continue That Have Not Changed Other Medications acetaminophen (Tylenol Extra Strength 500 mg oral tablet) 2 tab(s) Oral Every 4 hours as needed pain. aspirin (aspirin 81 mg oral delayed release tablet) 1 tab(s) Oral every day. carvedilol (carvedilol 6.25 mg oral tablet) 1 tab(s) Oral 2 times a day. cholecalciferol (Vitamin D3 5000 intl units oral tablet) 1 tab(s) Oral every day. DULoxetine (DULoxetine 60 mg oral delayed release capsule) TAKE 1 CAPSULE BY MOUTH ONCE DAILY. ferrous sulfate (ferrous sulfate 325 mg (65 mg elemental iron) oral tablet) 1 tab(s) Oral every day. folic acid (folic acid 1 mg oral tablet) 1 tab(s) Oral every day. letrozole (letrozole 2.5 mg oral tablet) 1 tab(s) Oral every day for 10 Days. levothyroxine (levothyroxine 112 mcg (0.112 mg) oral tablet) 2 tab(s) Oral Every Saturday. TAKE 2 TABLETS BY MOUTH ONCE DAILY IN THE MORNING ON AN EMPTY STOMACH ON SATURDAY AND 1 TAB ALL OTHER DAYS. levothyroxine (levothyroxine 112 mcg (0.112 mg) oral tablet) 1 tab(s) Oral Saturday, Saturday, Saturday, Saturday, . montelukast (montelukast 10 mg oral tablet) 1 tab(s) Oral once a day (in the evening). oxyCODONE (oxyCODONE 5 mg oral tablet) 1 tab(s) Oral Every 6 hours as needed for pain. rosuvastatin (rosuvastatin 20 mg oral tablet) 1 tab(s) Oral every day. It is important to always keep an active list of medications available so that you can share with other providers and manage your medications appropriately. As an additional courtesy, we are also providing you with your final active medications list that you can keep with you. acetaminophen (Tylenol Extra Strength 500 mg oral tablet) 2 tab(s) Oral Every 4 hours as needed pain. aspirin (aspirin 81 mg oral delayed release tablet) 1 tab(s) Oral every day. carvedilol (carvedilol 6.25 mg oral tablet) 1 tab(s) Oral 2 times a day. cholecalciferol (Vitamin D3 5000 intl units oral tablet) 1 tab(s) Oral every day. DULoxetine (DULoxetine 60 mg oral delayed release capsule) TAKE 1 CAPSULE BY MOUTH ONCE DAILY. ferrous sulfate (ferrous sulfate 325 mg (65 mg elemental iron) oral tablet) 1 tab(s) Oral every day. folic acid (folic acid 1 mg oral tablet) 1 tab(s) Oral every day. letrozole (letrozole 2.5 mg oral tablet) 1 tab(s) Oral every day for 10 Days. levothyroxine (levothyroxine 112 mcg (0.112 mg) oral tablet) 2 tab(s) Oral Every Saturday. TAKE 2 TABLETS BY MOUTH ONCE DAILY IN THE MORNING ON AN EMPTY STOMACH ON SATURDAY AND 1 TAB ALL OTHER DAYS. levothyroxine (levothyroxine 112 mcg (0.112 mg) oral tablet) 1 tab(s) Ora (more content not included)... [facility] Outside Recordson 02-08-2021 Outside Records [id number]#1.00OTGTI FF [facility] POCT Glucose Levelon 021 Glucose [Mass/Vol] 105 mg/dL Normal 74-118 [facility] Comment on above: Performed By: #### [id number] #### [facility] (DEFAULT) [address] [place] [address] Pharmacy Noteon 02-08-2021 Pharmacy Note I have personally reviewed the patient's medication list upon discharge including, prescription medications, OTC products, vitamins and supplements. Below are the following medications the patient is discharged on. Medications That Were Updated - Follow Below Instructions Other Medications Updated: ramipril (ramipril 10 mg oral capsule) 1 cap(s) Oral every day. Updated: traMADol (traMADol 50 mg oral tablet) 1 tab(s) Oral Every 4 hours as needed as needed for pain. Medications to Continue That Have Not Changed Other Medications acetaminophen (Tylenol Extra Strength 500 mg oral tablet) 2 tab(s) Oral Every 4 hours as needed pain. aspirin (aspirin 81 mg oral delayed release tablet) 1 tab(s) Oral every day. carvedilol (carvedilol 6.25 mg oral tablet) 1 tab(s) Oral 2 times a day. cholecalciferol (Vitamin D3 5000 intl units oral tablet) 1 tab(s) Oral every day. DULoxetine (DULoxetine 60 mg oral delayed release capsule) TAKE 1 CAPSULE BY MOUTH ONCE DAILY. ferrous sulfate (ferrous sulfate 325 mg (65 mg elemental iron) oral tablet) 1 tab(s) Oral every day. folic acid (folic acid 1 mg oral tablet) 1 tab(s) Oral every day. letrozole (letrozole 2.5 mg oral tablet) 1 tab(s) Oral every day for 10 Days. levothyroxine (levothyroxine 112 mcg (0.112 mg) oral tablet) 2 tab(s) Oral Every Saturday. TAKE 2 TABLETS BY MOUTH ONCE DAILY IN THE MORNING ON AN EMPTY STOMACH ON SATURDAY AND 1 TAB ALL OTHER DAYS. levothyroxine (levothyroxine 112 mcg (0.112 mg) oral tablet) 1 tab(s) Oral Saturday, Saturday, Saturday, Saturday, . montelukast (montelukast 10 mg oral tablet) 1 tab(s) Oral once a day (in the evening). oxyCODONE (oxyCODONE 5 mg oral tablet) 1 tab(s) Oral Every 6 hours as needed for pain. rosuvastatin (rosuvastatin 20 mg oral tablet) 1 tab(s) Oral every day. [Electronically Signed on: 02/08/2021 09:18 EST] Nury Soto [Verified on: 02/08/2021 09:18 EST] Nury Soto [facility] Telemetry Stripson Telemetry Strips [id number]#[id number] [facility] Consent Formson 02-07-2021 Consent Forms [id number]#1.00OTGTI [facility] Consultation/Specialist Note on 02-07-2021 Consultation/Specialis t Note Patient: KATARINA CAMARA Age: 75 years Sex: FEMALE : 1945 Associated Diagnoses: None Author: THADDEUS GAMING Basic Information 1 day s/p RT ALEA (DOS 02/06/21) Subjective Pt notes she is doing ok, she has been up with therapy, pain 06/11, she is thinking she may go home today or tomorrow depending on how therapy goes Review of Systems Denies chest pain, shortness of breath, nausea Health Status Allergies: Allergic Reactions (All) Severe Lyrica- No reactions were documented. Mild Tape- No reactions were documented. Vioxx- No reactions were documented. Objective dressing clean dry and intact to right hip, negative homans sign bilaterally, JAMIL hose on bilaterally Impression and Plan d/c home once pain well controlled and has been up with therapy at least twice more, f/u within 10 days of surgery in office, change dressing tomorrow or as needed [Electronically Signed on: 02/07/2021 07:57 EST] THADDEUS GAMING [Verified on: 02/07/2021 07:57 EST] THADDEUS GAMING [facility] MAGR Postoperative Recordon 02-07-2021 MAGR Postoperative Record MAGR Phase II Record Summary Primary Physician: Bernadine Diaz DO Finalized Date/Time: 02/07/21 09:54:12 Pt. Name: KATARINA CAMARA/Sex: 1945 FEMALE Med Rec #: [id number] Physician: Bernadine Diaz DO Financial #: [id number] Pt. Type: O Room/Bed: 235/1 Admit/Disch: 02/06/21 08:56:00 - Institution: Phase II Case Times MAGR Pre-Care Text: Patient is free from s/s of injury. Patient remains free from compromised physical state related to surgery or anesthesia. Patient comfort maintained. Patient/family verbalize understanding of discharge instructions. Entry 1 In PACU II 02/06/21 14:56:00 Discharge from PACU 02/06/21 15:45:00 II Last Modified By: Jordyn Young RN 02/07/21 09:54:08 Post-Care Text: The patient remains free from s/s of injury. Patient's vital signs stable, circulation maintained, return to preop mental and physical status, opsite/dressing intact, minimal or absent nausea and vomiting, tolerates po intake. Patient verbalizes adequate pain control. Patient/family express understanding of discharge instructions. General Comments: PHASE II COMPLETED BY 2 SOUTH Finalized By: Jordyn Young RN Document Signatures Signed By: Jordyn Young RN 02/07/21 09:54 [facility] 04-10-2020 MAGR Preoperative Record MAGR Pre-Op Record Summary Primary Physician: Bernadine Diaz DO Finalized Date/Time: 02/07/21 09:20:14 Pt. Name: KATARINA CAMARA/Sex: 1945 FEMALE Med Rec #: [id number] Physician: Bernadine Diaz DO Financial #: [id number] Pt. Type: O Room/Bed: 235/1 Admit/Disch: 02/06/21 08:56:00 - Institution: Pre-Op Case Times MAGR Pre-Care Text: Patient will be optimally prepared for surgery. Patient is free from s/s of injury. Provide information to patient/family related to plan of care. Verify patient allergies. Confirm identity and verify consent before the operative or invasive procedure. Entry 1 Patient Arrival Time 02/06/21 09:08:00 Preop Departure 02/06/21 11:37:00 Last Modified By: Kristina Schulte RN 02/07/21 09:20:05 Post-Care Text: Patient is prepared mentally and physically and is ready for surgery. The patient remains free from s/s of injury. Patient/family express understanding of plan of care and participate in decisions affecting his or her perioperrative plan of care. Allergies documented appropriately. Patient identifiers and consent correct. General Comments: Pt arrives to [facility] ambulatory. Pt has #5 pain in right hip, she denies cp, sob, cough or flu like symptoms. Pt denies pacemaker/defibilaltor or sleep apnea. Finalized By: Kristina Schulte RN Document Signatures Signed By: Kristina Schulte RN 02/07/21 09:20 Normal [facility] POCT Glucose Levelon 021 Glucose [Mass/Vol] 137 mg/dL High 74-118 [facility] [place] Comment on above: Performed By: #### [id number] #### [facility] (DEFAULT) [address] [place] [id number] Glucose [Mass/Vol] 111 mg/dL Normal [address] [place] [address] Comment on above: Performed By: #### [id number] #### [facility] (DEFAULT) [address] [place] [id number] Glucose [Mass/Vol] 151 mg/dL High 74-118 [facility] [place] Comment on above: Performed By: #### 4 [id number] #### [facility] (DEFAULT) [address] [place] [id number] Glucose [Mass/Vol] 126 mg/dL High -118 [facility] [place] Comment on above: Performed By: #### 4 [id number] #### [facility] (DEFAULT) [address] [place] [id number] Anesthesia Noteon 02-06-2021 Anesthesia Note Patient: ROCKY CAMARA Age: 75 years Sex: FEMALE : 1945 Associated Diagnoses: None Author: Jeff Bunn MD Postoperative Information Post Operative Note Health Status Allergies: Allergic Reactions (All) Severe Lyrica- No reactions were documented. Mild Tape- No reactions were documented. Vioxx- No reactions were documented. Problem list (past medical history): All Problems (Selected) Chronic obstructive pulmonary disease (COPD) / SNOMED CT [id number] / Confirmed Hypertension / SNOMED CT 8991324905 / Confirmed Hypothyroidism / SNOMED CT 73601910 / Confirmed Kidney failure / SNOMED CT 00496727 / Confirmed Diabetes type 2, controlled / SNOMED CT 306135562 / Confirmed Physical Examination VS/Measurements Vital Signs (last 24 hrs) Last Charted Heart Rate Monitored 95 bpm (FEB 06 14:50) Resp Rate L 9 br/min (FEB 06 14:50) SBP 132 mmHg (FEB 06 14:50) DBP 77 mmHg (FEB 06 14:50) Weight 98.000 kg (FEB 06 14:46) Assessment Anesthetic outcome No anesthetic complications noted. Plan Transfer/ Discharge: To nursing unit, Patient can be discharged from PACU when criteria met. Condition good. [Electronically Signed on: 02/06/2021 15:15 EST] Jeff Bunn MD [Verified on: 02/06/2021 15:15 EST] Jeff Bunn MD [facility] Anesthesia Note Patient: ROCKY CAMARA Age: 75 years Sex: FEMALE : 1945 Associated Diagnoses: None Author: Jfef Bunn MD Preoperative Information Anesthesia history: Patient history: No difficult intubation, No malignant hyperthermia. Family history: No malignant hyperthermia. Review of Systems Constitutional: Negative. Respiratory: Negative, No shortness of breath. Cardiovascular: Negative, No chest pain. Gastrointestinal: No heartburn. Health Status Allergies: Allergic Reactions (All) Severe Lyrica- No reactions were documented. Mild Tape- No reactions were documented. Vioxx- No reactions were documented. Current medications: Home Medications (15) Active aspirin 81 mg oral delayed release tablet 81 mg = 1 tab(s), PO, Daily carvedilol 6.25 mg oral tablet 6.25 mg = 1 tab(s), PO, BID DULoxetine 60 mg oral delayed release capsule ferrous sulfate 325 mg (65 mg elemental iron) oral tablet 325 mg = 1 tab(s), PO, Daily folic acid 1 mg oral tablet 1 mg = 1 tab(s), PO, Daily letrozole 2.5 mg oral tablet 2.5 mg = 1 tab(s), PO, Daily levothyroxine 112 mcg (0.112 mg) oral tablet 224 mcg = 2 tab(s), PO, qFriday levothyroxine 112 mcg (0.112 mg) oral tablet 112 mcg = 1 tab(s), PO, SuMTuWThSa montelukast 10 mg oral tablet 10 mg = 1 tab(s), PO, qPM ramipril 2.5 mg oral capsule 2.5 mg = 1 cap(s), PO, Daily rosuvastatin 20 mg oral tablet 20 mg = 1 tab(s), PO, Daily traMADol 50 mg oral tablet 50 mg = 1 tab(s), PRN, PO, q4hr traMADol 50 mg oral tablet 100 mg = 2 tab(s), PRN, PO, q4hr Tylenol Extra Strength 500 mg oral tablet 1,000 mg = 2 tab(s), PRN, PO, q4hr Vitamin D3 5000 intl units oral tablet 125 mcg = 1 tab(s), PO, Daily Problem list (past medical history): All Problems Chronic obstructive pulmonary disease (COPD) / SNOMED CT 67793220 / Confirmed Hypertension / SNOMED CT 5130766239 / Confirmed Hypothyroidism / SNOMED CT 42373414 / Confirmed Kidney failure / SNOMED CT 98845403 / Confirmed Diabetes type 2, controlled / SNOMED CT 525783798 / Confirmed Resolved: CHF (congestive heart failure) / SNOMED CT 82264943 Resolved: CAD (coronary artery disease) / SNOMED CT 70849979 Resolved: Breast cancer / SNOMED CT 043863339 Histories Family History: Aneurysm Sister Brother Brain tumor Brother Procedure history: ESWL of kidney ([id number]) on 12/29/2020 at 75 Years. Comments: 01/19/2021 13:20 ESTELA - Kristina Schulte RN Left [place] node ([id number]) in 2016 at 70 Years. Lumpectomy of breast (0151247335) in 2016 at 70 Years. Comments: 11/04/2020 13:16 Chelsi Paniagua RN right ESWL - Extracorporeal shockwave lithotripsy for renal calculus (758778258) in 2007 at 62 Years. Hysterectomy (638037686). Tubal ligation (443508466). Appendectomy (625133836). Ganglion cyst of left wrist ([id number]). Laparoscopic cholecystectomy (47225051). Colonoscopy (906868619). Social History Electronic Cigarette/Vaping Assessment Electronic Cigarette Use: Never. Alcohol Assessment Use: Current. 1-2 times per year Tobacco Assessment Former smoker, quit more than 30 days ago Tobacco Use:. 15 year(s). Stopped age 58 Years. Substance Abuse Assessment Substance use: Never. . Social & Psychosocial Habits Alcohol 01/19/2021 Alcohol Use: Current Frequency: 1-2 times per year Substance Abuse 01/19/2021 Substance use: Never Tobacco 01/19/2021 Smoking tobacco use: Former smoker, quit more Number of years: 15 Stopped at age: 58 Years Electronic Cigarette/Vaping 01/19/2021 Electronic Cigarette Use: Never . Physical Examination VS/Measurements Vital Signs (last 24 hrs) Last Charted Heart Rate Peripheral 73 bpm (FEB 06 09:10) Resp Rate 16 br/min (FEB 06 09:10) SBP 125 mmHg (FEB 06 09:10) DBP L 59 mmHg (FEB 06 09:10) Review / Management Laboratory Results Plan [place] [employer]hesiologists#(ASA) physical status classification: Class III. Anesthetic Preoperative Plan Anesthesia: General. . Anesthetic plan, risks, benefits, and alternatives discussed with the patient and/or family. Patient verbalized understanding. Anesthetic technique: General anesthesia. [Electronically Signed on: 02/06/2021 09:57 EST] Roseau Bob MD [Verified on: 02/06/2021 09:57 EST] Jeff Bunn MD [facility] Coding Summaryon 02-06-2021 Coding Summary HTMLBase 64 RpintklyGPh3zNv+PGhlYWQ+P F5DLTAoG54qiKTqzA2BM3rXUG 6HAHULMEQNLY7BQG8lmMN8VYf xD9WnqkBt QpoikLFoVQ87ERa5HLS1jMetU TwvoK6ulHFnO6x2OnXfAW47mX 06KPpbSDVpZqY1BzWhximbcWP y W9yzAuJgmEAfKce+PHRhYmxlI HdpZHRoPScxMDAlJyBzdHlsZT 5oAj7eNIGxXEYcuCvuyODiKnP j w2iaKWFeICjbRC4axEqzC1Lww EL5YIMjp8p1Uf40yBF+PHRkIH H7uYpbVMwno169YkSwf2qdAYB 3 vXKgMFlgUFI3J42vi5V7ZXGcQ FIaJQF7kEA6iA5ulIvchryzG9 SirRYcAgV4QMX6nECxxO4xtPi n fpwpsU4tDrb+Z44EYC2ZZVEDW L0VIki2B5IvFzxqjLA+PC90YW WgRX38rXFykCUtn4sdoVe3OeE w GIUfSIX1nZiwCOeot2AnYNLpX 46ezFQqq5L7DWRvpAveaZGcNj UofVN0cK6oTWexdpyrc8xjqfq n Qvbtz7vasl59hL12Z26pZTmdI XLxPDD1ZLOlBBLftYumqx3etK 9wIi8+SBccn8bwe2owlPi2HyJ w EITjasKnnGvnPTO2m8UrVi23J 0WsgEdgc5XmEzo4yd14pLCly9 F4yQJ3TGnxVFBpuG0nXScaNeE 6 RNTrVaYnpI94rBOfSXrcSd3nv JcxkEjiAQ7hBGFgdlrhUYZgbC 5kAUNnjJYdsMlqRB5gXMQldgj m k385CcRyNIL8DKYeuFMyW5Xub K0fDfTbQZYnTRCfE3BenIOmSQ vfV457GAgxRgH2TVDhsjLyN8S s SCYzdUlwUyT2x8C3Bh8Ol3Gci txdXZG4DPcwIHPiObN9AyNqOz R6Y4AzNrd4HJOjmPjyXY5nI6Z h HCMmnsiniycjpLE8QDTrBQRfd F51sSErVOzcYr1jm4M8a468NY MhBUYnaV61Ap1snNjtYYDmkTM U gY8guyrsx6srdntlQxZjSBZuF Pj3HNf5DZDvjGyxOcGkLYO5Lq G0WDK6pZErlG2wpCbilbzbcP7 w Oyc+D99uvG4tIFW1YSU2bwxxL HElkaMbWD54WH66B8NnWhpgbD FibGU+GOIpzbPmmLazMH2qYcJ j z2lvy7UxJBnuN7LpXJViNIthP yp5PUJrSGM5mBP4hK8uHDIbNM vsb4N6dRV0B3BpwwGcxd8pt8l s DIKsIFrqH58rsFFaz5I8GEEse CY5XHCzdGjnMuYvgV27Tta+PG UelIcoj8QlEemxh7wjq9fqzSm 9 UnBlXNRhfkWkoBnmFVH6p1YmO k46O03xBFbiVXPrUWFcJIWgJA QoeOhorr8tcD3qIq1+PGNvbCB 3 lMI0dU9mAHCqBnT9CHqyW319J eWlcEBrCozmo4jpv6zwcLw8Yo CnPUZfoxGnlPiuXIW6m7XkQl7 8 I33pKFxjCUUlPGFzGESxCGEpf Xvknj2cvN5zGv4+DE9zr0lyfg 60vZ07rTK+QPXgNXF3lIrbNTm w NBJtsY1nRZnmQuR6EQTtPnJzu F42rWWkJVgfNb6fiDtfdFleTX 7eHHLeildzm220YfMlp6dcORI w aOJjXYbyDGV5E92el9I0JIVoG RJoJBK1jWM5jM2vjFypytryiC OveQbnubOseLkwJLgtRLxeK36 6 IHRvcDsnPlBhdGllbnQgTmFtZ Zh9M4TfGxu8HBNlkVsfXY1axR XfCYphPf8fnDdifCuuHD0qGNC p wxxfi971ZyVau7dvLAUedCMpG FjoFSC7W31tb2D1IYGaGBGlZS F5zHB4iO4nhLbzeefxhLDjnNz g zzNouFknQQfgJIliK704PBQuu KgzAbTrumPnUXSocDN0HW21SB 86iSXzw3J6oQH7A8YnWDHffhq t pwmpfFX5YUJzLFMysZ82Jt9nj VxuOj1oPMXxQVS7IWLoiUWuS2 FpwI5eJiWqGCReENEzA6IhyNY t WEtfX077UNoyFtF3ADKzprPcO 3TpMTVziBekRqP3t3C3Qq3AO5 T6YY35XF13aJSwa5D1wSF7O6V h ZIPpeverdayglPS0LGCbEMThu S11Xf4ziOdcXy8ePIIqOAA1NE OodYQdX3IltZ7rPyUeHOZwJZC w G6QnkITtKGlrG398TOxjVsR1T YZevxFiE6PoRQMyxWymXyA4o0 X4Bs2TBWo6HS01IR13gTQzq0G 5 xEQ5Z4YlBFMuczgazonnvKS6O AMbVIRrrX46Eo8zlGgfCo2yRH CnXNF4ZMJeoZVmE7XwzH2mLaF j TFLiOKHsX9CbqSZeZLkiG447T ArpXzY5ETKzrgZkV4UwKOZqfU tuIvQ6m2X0Jh4PJWNyXP28XEQ 5 xBN4LV63DY04V2DnQesirIPxr +PHRhYmxlIHdpZHRoPScxMD LbTzSfhAcsUP8fSg2fBXWbBIK v cGlbaSAmQiCvd6fpAIDlZFukH Z5mkRadQ7IwgQL4EFEqj1p4Xn 00S56mA1NtpHJ+KBQkxUP6bRB 0 lE9fGxCbGdO0TNwmE810KoOdx XPtGzgjs9kmp2inyIm7QbU7VK MtniMtxRimXCX9r4WxCm69E69 s IHdpZHRoPSIxNSUiIHZhbGlnb l1yuN2yVk6+YJXsnJF8hLQ3vL 2lHvNoFjB8QDroK376YbNtrZZ v Ovjrc0kyv5gdaEy1YeTzAMIcq pCscPciVAG2b0MwXd99Q7BdoR aag8PvDwp1xr54kOQbw7C1oBR 9 M2ZdTJPdctdwgBNxoWdjLM0nD IAzljijTIWvtZ3rFDUiX7p5Zz EgVfZ3MRmjO9QjopJ8UXPiyIN g DKmmHIN9Y59jj2E0MZQiWILtK QT9hMU9yY9wxFypljzvxJNewT botfWjyLhkQNvwNMaxI114DQZ v uJjmFCMgnG7gZCLiwXZwmXvvY K9gUETutfabOu2WRG5WHTqjQm 0OB3FjBGavkXY+UBUcNJF1yTe l NQunDHDmyK6rRXXmG0x4WaYcC eC8CWsyF9HwBUZlgmzsNh61fX 8fXeIkSeW5VBrbR5QedpN1WXR w gQRpPWgyKTB7B07yx2N2FBDnE PElEFI8gEQ5jO4ddHtiszhckS FhwLdmgdPnbBpjFGycVJosQ04 6 LUFfzXqaSqJ8ExRkFjH2GDh3W 8NmNkh2PAYcdAorGY2irGAnTT fuSk3jdWyavDvuFH1pIBCavnq w TYRpaE8cNYJlaLSxiGxoOO5jH ZEjcoltv124MtCtACB8ZADcwF OvE3BhpP2pCgRiOMAeREKtF4Q l zDQqHZgeL333GOdhHbX8TJSeu jPvF9HfNNGivJhkXuM3e4V7Ka 43MyBZZWFyczwvdGQ+PHRkIHN 0 fTaxKZxzEOHsyG1kFJWyN7i0N cRzZeR0FWuiI3IoJAXmtdwrLw 19pI2vGjNfElN6VYyhT8DnhbN 6 STDupYBwHNdyOUL1Q16qt7W7S JDoQSWyHXU5fIM0oM1igGnibq ogbGVmdDsgdmVydGljYWwtYWx p M765WGQfmBvnEtJRQZRUXUnql GQ+NZJbGNY3bEieANgeKWJtjD 1yEMZkV0z3TuXdWaI6KSvrD3Y h KYBgjoheWm75aP2eWsTlSjB5V GziP5BeagT4WDBibXKtUNanRC W9F79ez7Z7LTMhMIQtJGC9kVB 4 xO9fsAzzoqpxhBPunGgomfHlb WckMFczYHfiO461XVGvlMicSv 9UBV83DO47I8WsSpmerDCriGV + PHRhYmxlIHdpZHRoPScxMDAlJ sMryFzxEA6wXm6qTMRwLGHbyC fhvYJyLwUih9bxAIYaVHgnEZ6 w tAmxB4VshBN1IRIpr4r8Vh15G 79cA8SdrYD+CBTztMD3yIS2gF 1yXzFmHnL3OBjiI061SzNmrJG v Artbj4wqs5fdtBo5DrVhHSAtn rXtfSvzDXZ4s2ZrDk08K34wTU dpZHRoPSIyMCUiIHZhbGlnbj0 i yE2bZh1+DLQfgVB4rWI2vL2wG kNiCzC6GWcnZ916PhThdAKlAi ayB34nU3PbpBB+OFYlUbo4BKP z xOpeUK2yeRZlHVtpNc8fGTW6K dMmXoGeVNspQ3SpKDAaxsiaww wqlJN6UTLmSEGkgW69Je8mtCe g Az5nEFIfGDF7HDSpsUKwM2Ugc P5vBsMsMZKtLVNaW1GngICuNU orN139FNkpOpN4DZYazmLtX0L s WZCjxUewLcZ7b2J1Bl7PgUsmx XNdIM0eVqUhEIr3S9EcKma1RA EblPrjMP3zsTTpLHcoNm1akKl o eXzaXF2lEPMmqxmfi716WeNvm 4jrGIPcaTXxIMdnLOW4B55ea0 R1NKDwXWWtBQI3zEJ7bH3fcQp n bjogbGVmdDsgdmVydGljYWwtY UwrC697OKGdqTjrVqHKLqh4J6 NwQdz6NMVnxFqgGK2idGPcXXo u Gt0fhCndeWoxVI2rJDJabkgbf 898JmXgy0wcBPQxyQZfDGalTU W4V64qp8N6IUXlHQKpHWN1jIP 4 lA2bkLscwuvesAMzuPrvmcSko CjaQQaxFPgkK631ZJMjdJluSb 3RXlg8G7BrFjc6STYbtXpeSS6 n hISsQMhcDm9zoFtuxGhbXY3vL UVltiqgx407YpWme0lyGVSoyP ChZDicLLV0F96cj8K7OLCsSJH w HWW7nLD6xX8kxCvdddsbfOQbi QyvgaQjkDnqWRnpFVaiS790XY RvcDsnPlBheWVyOjwvdGQ+PC9 0 tu60N3RlSlstJle9JMAzXPU5a TR2tG4gGSZhQAxzd2Q4qLS9R8 OegnObmc5ky4miMPPiMVqvO35 s bGF (more content not included)... Normal [facility] MAGR Intraoperative Recordon 02-06-2021 [facility] Intraoperative Record MAGR Intra-Op Record Summary Primary Physician: Bernadine Diaz DO Finalized Date/Time: 02/06/21 13:59:40 Pt. Name: VAHEDARINKATARINA/Sex: 1945 FEMALE Med Rec #: [id number] Physician: Bernadine Diaz DO Financial #: [id number] Pt. Type: D Room/Bed: [facility] Admit/Disch: 02/06/21 08:56:00 - Institution: Case Times MAGR Entry 1 Patient In Room Time 02/06/21 11:39:00 Out Room Time 02/06/21 13:54:00 Anesthesia Start Time 02/06/21 11:39:00 Stop Time 02/06/21 13:53:00 Surgery Start Time 02/06/21 12:11:00 Stop Time 02/06/21 13:48:00 Last Modified By: Jordyn Young RN 02/06/21 13:58:02 Case Attendance MAGR Entry 1 Entry 2 Entry 3 Case Attendee Bernadine Diaz John M MD [facility] Role Performed Surgeon - Primary Anesthesiologist of Treasury Analyst Record Time In 02/06/21 11:42:00 02/06/21 11:39:00 02/06/21 11:39:00 Time Out 02/06/21 13:35:00 02/06/21 13:54:00 02/06/21 13:54:00 Procedure Arthroplasty Total Arthroplasty Total Arthroplasty Total Hip(Right) Hip(Right) Hip(Right) Last Modified By: Jordyn Young RN 02/06/21 Jordyn Young RN 02/06/21 Jordyn Young RN 02/06/21 13:59:33 13:58:05 13:58:05 Entry 4 Entry 5 Entry 6 Case Attendee Nanci Blake Kristi L [employer] Jordyn Young RN Role Performed Treasury Analyst Scrub Personnel Scabbler Time In 02/06/21 11:39:00 02/06/21 11:39:00 02/06/21 11:39:00 Time Out 02/06/21 13:54:00 02/06/21 13:54:00 02/06/21 13:54:00 Procedure Arthroplasty Total Arthroplasty Total Arthroplasty Total Hip(Right) Hip(Right) Hip(Right) Last Modified By: Jordyn Young RN 02/06/21 Jordyn Young RN 02/06/21 Jordyn Young RN 02/06/21 13:58:05 13:58:05 13:58:05 General Comments: Julissa Velasco Rep Surgical Procedures MAGR Pre-Care Text: A.20 Verifies operative procedure, surgical site, and laterality Im.150 Develops individualized plan of care Entry 1 Procedure Arthroplasty Total Hip Primary Procedure Yes Primary Surgeon Bernadine Diaz DO Surgeon Comment RIGHT TOTAL HIP Start 02/06/21 12:11:00 Stop 02/06/21 13:48:00 Anesthesia Type General Surgical Service Orthopedics Wound Class Clean Technique Details Closure Technique Primary Entire procedure No was performed via laparoscope or robotic assistance Last Modified By: Jordyn Young RN 02/06/21 13:58:10 Post-Care Text: O.730 The patient's care is consistent with the individualized perioperative plan of care General Case Data MAGR Pre-Care Text: A.350.1 Classifies surgical wound Entry 1 Case Information OR MAGR OR 05 Case Level Level 5 Wound Class Clean Specialty Orthopedics ASA Class 3 Diagnosis Preop Diagnosis DJD RIGHT HIP Postop Same As Preop Yes Postop Diagnosis DJD RIGHT HIP Blunt or No Is the procedure No penetrating injury considered occured prior to Emergent/Urgent? the start of the procedure: Last Modified By: Jordyn Young RN 02/06/21 12:17:26 Post-Care Text: O.760 Patient receives consistent and comparable care regardless of the setting Time Out MAGR Entry 1 Time out date/time 02/06/21 12:10:00 All team members Yes have introduced themselves by name and role Surgeon, Yes Surgeon reviews Yes anesthesia, nurse critical or confirm patient, unexpected steps, site, procedure operative duration, anticipated blood loss Anesthesia team Yes Nursing team Yes reviews any reviews sterility patient-specific (including concerns indicator results) and equipment issues/concerns Antibiotic Antibiotic Yes prophylaxis given within the last 60 minutes Last Modified By: Jordyn Young RN 02/06/21 12:17:48 Patient Positioning MAGR Pre-Care Text: A.280 Identifies baseline musculoskeletal status Im.40 Positions the patient Im.80 Applies safety devices Entry 1 Procedure Arthroplasty Total Body Position Lateral Hip(Right) Left Arm Position Extended on padded arm Right Arm Position Extended board Left Leg Position Extended Right Leg Position Extended Feet Uncrossed? Yes Press Points Checked Yes Positioning Device Arm Boards, Arm Strap, Outcome Met (O.80) Yes Pillow, Peg Board Last Modified By: Jordyn Young RN 02/06/21 12:18:12 Post-Care Text: E.290 Evaluates musculoskeletal status O.80 Patient is free from signs and symptoms of injury related to positioning Skin Prep MAGR Pre-Care Text: A.30 Verifies allergies Im.270 Performs skin preparation Im.270.1 Implements protective measures to prevent skin and tissue injury due to chemical sources Entry 1 Skin Prep Syntegrity Prep Agents (Im.270) Chlorhexidine Gluconate Prep By Jordyn Young RN and Alcohol Prep Area (Im.270) Hip Prep Area Details Right Skin Prep Agent Dry Yes Without Pooling Hair Removal Syntegrity Hair Removal Methods No hair removal performed Outcome Met (O.100) Yes Last Modified By: Jordyn Young RN 02/06/21 12:18:2 (more content not included)... [facility] PACU Record MAGR PACU Record Rogelio aguilar Primary Physician: Bernadine Diaz DO Finalized Date/Time: 02/06/21 15:03:15 Pt. Name: KATARINA CAMARA /Sex: 1945 FEMALE Med Rec #: [id number] Physician: Bernadine Diaz DO Financial #: [id number] Pt. Type: D Room/Bed: [facility]/1 Admit/Disch: 02/06/21 08:56:00 - Institution: PACU Case Times MAGR Entry 1 In PACU I 02/06/21 13:55:00 Discharge from PACU 02/06/21 14:55:00 I Last Modified By: Maria Isabel Lewis RN 02/06/21 15:03:13 Finalized By: Maria sIabel Lewis RN Document Signatures Signed By: Maria Isabel Lewis RN 02/06/21 15:03 [facility] Nutrition Noteon 02-06-2021 Nutrition Note Pt admitted for Rt t otal hip surgery. Pt currently NPO. Pre-op 01/19 wt used for nutrition assessment, minimal change from Nov wt on file. Pre-op labs reviewed and unremarkable. Pt is at high nutrition risk r/t age greater than 65yr and surgery, however, no immediate nutrition concerns at this time. Will monitor need to add oral nutritional supplements, recommend post op vitamins/minerals if not ordered. H&P pending. Per medical hx, Pt positive for DM; no DM meds in place. AM BS 112mg/dl. Once diet advanced, rec'd 1800kcal DM. Will monitor need to adjust as well as for changes in wts, intake and labs. [facility] Operative Report - Surgeon/P mily 02-06-2021 Operative Report - Surgeon/Physician Preoperative diagnosis: Primary osteoarthritis right hip Postoperative diagnosis: Same Procedure: Right total hip arthroplasty Surgeon: Mynor Diaz D.O. Anesthesia: General Indications for surgery: Progressive loss of function and increasing pain with radiographic findings consistent with advanced osteoarthritis of the right hip Estimated blood loss: 200 Complications: None Findings: Tiso-yt-pjza in the right hip joint Procedure summary: Patient was brought to the operative suite she was given a general anesthetic she was then placed in the lateral decubitus position the right hip was prepped and draped in usual fashion a timeout was taken. Incision was centered over the greater trochanter. Dissection was carried down through the deep layer fat to the fascia jimmy which I incised and then I placed a Charnley retractor. The anterior one third of the gluteus medius was detached from the greater trochanter the capsule was incised and the hip was dislocated. It was raw bone on the femoral head with a large inferior osteophyte impinging on the acetabulum. The femoral neck was cut with a reciprocating saw and then the labrum and central soft tissues were excised reaming was performed sequentially up to 52 a 52 mm cup was impacted into place and it was snug and secure. Was further stabilized with 2 30 mm acetabular screws. Next a standard 36 inner diameter liner was clicked into place and checked for integrity. It was stable. My attention was turned towards the femur the canal was opened with a box osteotome and then a hand-held reamer/canal finder and then broaching sequentially up to size 11 Trial reductions were performed and ultimately an extended offset prosthesis produced the best balance with no tendency towards dislocation even at extremes. The trial components were removed and size 11 high offset Corail prosthesis was impacted into place. It was snug and secure. Of the -2 mm x 36 mm femoral head was impacted in place over this and the hip was reduced range of motion was again taken to extremes. The soft tissues were about well balanced. There was no tendency towards dislocation even at extremes. The leg lengths appeared symmetric. The joint was thoroughly irrigated and the gluteus medius was repaired with a #5 Ethibond suture and the fascia jimmy was closed with 0 Vicryl suture. The fat layers were closed with 0 Vicryl the subcutaneous layer was closed with 0 Vicryl and then a running subcuticular stitch with 3-0 Monocryl and Dermabond. Prior to closure I did infiltrate the margins of the wound with 20 cc of half percent Marcaine. Sterile dressings were applied and she was transported to the recovery room in stable condition [Electronically Signed on: 02/06/2021 15:23 EST] Bernadine Diaz DO [Verified on: 02/06/2021 15:23 EST] Bernadine Diaz DO Normal [facility] POCT Glucose Levelon 021 Glucose [Mass/Vol] 207 mg/dL High [address] [place] [address] Comment on above: Performed By: #### [id number] #### [facility] (DEFAULT) [address] [place] [address] Glucose [Mass/Vol] 179 mg/dL [address] Comment on above: Performed By: #### [id number] #### [facility] (DEFAULT) [address] [place] [address] Glucose [Mass/Vol] 112 mg/dL Normal [address] [place] [address] Comment on above: Performed By: #### [id number] #### [facility] (DEFAULT) [address] [place] [address] Patient Handouton 02-06-2021 Patient Handout POST OPERATIVE TOTAL HIP DISCHARGE INTRUCTIONS Physical Therapy: -WBAT to operative hip -focus balance, transfers and steady gait. -use a walker -Do Not Do Active Hip Abduction Exercises On Either Hip -ok to do ROM on knee. SURGEON'S WRITTEN INSTRUCTIONS: Change dressing daily. When clean and dry for 2 days may leave open to air. Jamil hose (compression stockings) for 6 weeks Physical therapy as prescribed May shower, no tub bath. Do not rub/scrub incision. Wash gently Take Aspirin 325mg daily to prevent blood clots, coated or uncoated per patient preference. WHAT YOU SHOULD KNOW AFTER YOUR OPERATION: If you need pain pills, start before the pain becomes intense. Pain pills are frequently less upsetting to your stomach if you take them with food such as crackers or bread. If you have excessive or persistent pain, swelling, bleeding, nausea, vomiting or any other problems, you should first call your surgeon for advice. If you are unable to contact your surgeon, seek help from the emergency room. FOR THE PREVENTION OF DVT AFTER LOWER EXTREMITY SURGERY What is a DVT? There is always the risk of DVT after lower extremity surgery. DVT, or deep vein thrombosis, is a blood blot in a major vein that may partially or completely block the flow of blood. The clot occurs in the legs or pelvis, in areas where blood flow is slow, or in an injured blood vessel. DVT can be life-threatening should pieces of the clot break away and travel to the lungs. This is called pulmonary embolism What are the symptoms of DVT? The area affected by the blood clot may become swollen and painful, and possibly turn red as the normal flow of blood is blocked. You may also develop edema, which is the build up of fluid in the skin tissues surrounding the clot. If the clot is somewhere other than your leg, there may be no physical signs of DVT. If the clot breaks away and travels to your lungs, you may experience shortness of breath and chest pain. If this occurs you should call your doctor immediately or go to the emergency room. How can I prevent DVT? You should keep active. Moving the ankle and foot and bending the knee as tolerated when you are in bed and walking as tolerated. Take medication, especially the Aspirin, as prescribed by your doctor. What should I do if I think I have a DVT? You should call your doctor or go to the emergency room any time you have a sudden and unusual shortness of breath that is not related to exercise, exertion or anxiety. If you have swelling with redness and pain in your leg, you should call your doctor immediately. If there is concern then a test called ?Venous Doppler? can be done to rule of a DVT. Normal [facility] XR Hip Complete Righton 12-0 XR Hip Complete Right EXAM: XR Hip Compl ete Right HISTORY: pain COMPARISON: CT pelvis study dated 12/02/2020 TECHNIQUE: AP and lateral views of the right hip were with portable technique at 2:21 PM. FINDINGS: There is right hip prosthesis which appears unremarkably positioned. Soft tissue swelling and air noted compatible with recent surgery. No definite acute fracture or dislocation. IMPRESSION: Right hip study demonstrates grossly unremarkable post arthroplasty changes as described. Follow-up as needed. Final Dictated by: Adrien SUH, Zac Tao Dictated DT/TM: 02/06/21 3:57 Signed (Electronic Signature): Adrien SUH Zac S 02/06/21 4:53 pm Technologist: AYLA CASIANO [facility] 2019 Novel Coronavirus (CoVI D-19), ABIODUN LCon 02-03-2021 SARS-CoV-2 (COVID-19) RNA ABIODUN+probe Ql (Unsp spec) Not detected Invalid Interpretation Code Not Detected [facility] Comment on above: Order Comment: [id number] Result Comment: This nucleic acid amplification test was developed and its performance characteristics determined by [facility]. Nucleic acid amplification tests include RT- PCR and TMA. This test has not been FDA cleared or approved. This test has been authorized by FDA under an Emergency Use Authorization (EUA). This test is only authorized for the duration of time the declaration that circumstances exist justifying the authorization of the emergency use of in vitro diagnostic tests for detection of SARS-CoV-2 virus and/or diagnosis of COVID-19 infection under section 564(b)(1) of the Act, 21 U.S.C. 360bbb-3(b) (1), unless the authorization is terminated or revoked sooner. When diagnostic testing is negative, the possibility of a false negative result should be considered in the context of a patient's recent exposures and the presence of clinical signs and symptoms consistent with COVID-19. An individual without symptoms of COVID-19 and who is not shedding SARS-CoV-2 virus would expect to have a negative (not detected) result in this assay. Performed At: [address] [id number] Andrews Mchugh PhD Ph:[phone] Performed By: #### 6 [id number] #### [facility] (DEFAULT) [address] [place] [address] Progress Note - Nurseon Progress Note - Nurse Spoke with pt santy vogeling arrival time of 0900 and NPO. Verbalized understanding. [Electronically Signed on: 02/03/2021 12:36 EST] Monalisa Miller RN [Verified on: 02/03/2021 12:36 EST] Paul Monalisa COTTO [facility] Coding Summaryon 01-23-2021 Coding Summary HTMLBase 64 TzzeeyczXYe7iZh+PGhlYWQ+P R1PMLUhM59liAXtoW0JS9kTEF 0CUNLKJVSHCH1ZXJ5xqXV4FEx kA0SgfeXz QppbmHObWQ62XAv9WSI8hYjbQ HoxpY9hnDBvG8e8OkUlGK64tY 12CSbiNUZgKgS5LjDbbqycnRX y C6ftPdHqsPSxIzl+PHRhYmxlI HdpZHRoPScxMDAlJyBzdHlsZT 8yVe5yDTZwHGOrlBeqzIAxVdN j s8znQYSyTHzsHR1fqWjhC3Zpo RT8UOKej9b7Jd65sIQ+PHRkIH I5yGreYMjqp409OpScu9nvHTB 3 qMBtXLzrRNP1B45kc8D5TDXwZ ZIyUOV2qKK7bX5uqBacfnzaJ8 QfdBVtRmA4EBX9fZHziS9mqXh n yknteC9jEvh+V03FFM3MKBDWL S4UQre7Z6PyGiuwvJE+PC90YW PvOA40tSNcvMLgp7yfeJz9UqY w CSXwNWC2iHhvRZqoc9FcUDLkJ 76fwMQly0M9LOTutXgmnAOyDz WqgNV8wF2iMRhvezptj4yzugd n Wcnaz7qjur80cF01C38rMHdjL CUuXGC6WOYiENEinHzuou8gtO 9wIi8+DIkiq1pdo5raaCd3AmK w YDMbhyJyaVsqJQC6n1WgTu65X 1YlzSecs1IlWrx1il50yKJgr2 B6pCQ8KPgoLIMomZ7yTGouIjT 6 BGZkCqUqyV30dPYxQLbtDt1xp KqbfUhrWC6gELHuwluyKDAmyQ 1aXAAvxIDpsDwdMM5xFPTevua m b396BhVhSYK6CLTwbRAcQ8Tlr U9dZqSgKABfMDTjW0QsvYSrNU usP017SEsiLuS3VSByacSyX6J s JPFpiPesZmE8q5K3Tk2Wf0Wnj ommIWG7NVkaGUVqGvIyJhObFb A7W2FmKiz1BSEueQvrPT0vE1Y h AFFnokjezwpbtOS9MZRwRICdi Q20bZWlCUftVm4iq7C0w788VW MvOBCcfT01Ra0gsBwxIVMnuYT U nW0sjaooq8whndjiQvJpZIFpX Ks5SCy0ULMirOawMrJjWIZ2Wv W3CZF7nIGtmL9jtGkcdlvkwA8 w Oyc+C76rzO6aKRM9EXW2cfytS YIexiIxDD45CM15A1HeCutzaG FibGU+FSSfcfWzgHunPZ8mXwN j c8hup3OrEKhaP0XxPLRmFJikS dv3GOAsNLB5uLP7bN9zLFNdZD ljo5P3bVX6W6RxzzNmgr6qe5k s JOBdLYwqU50pqYLaw2O4RWTrj CC8REXpjLfhCfAgmL88Fwu+PG AmhGbso4RfNtiln5yxx7dtvNs 9 YjDaCRLvmzRltEybOKU5w0OjU b11B58qLLhjEZLpKWDaLJYfSU IczGjsbq5swB7oKc5+PGNvbCB 3 dLJ1nL2aJETrVgJ3OVpfN516C lPmpCOeYtshn4bjb6wayMh7Cd HdATRioxCemKksEXW1n1SjIi5 8 X04fJDsxBYVoCHZoSNFeOQYpp Jjmoc0euF7gHo2+HV6pq2ejtv 07eI46sJA+JAHfCCO4eCneRKb w PTDqlH8vPKfxQnV4VXXwDjWvq K52iTHeUJgmTv4buDrcnGrvEH 8hSALcxqajo638AxUam6dmDXO w kUZnRRmeZBD9Z76ci6Y3SJXgE IDcAJZ0iHS4gB5mdMmjcqaprK OrrQgmqpNrlQfwVWqoDNdkJ72 6 IHRvcDsnPlBhdGllbnQgTmFtZ Si9S3UcEgi0FYAwnPgmVS0ryH YkVDvvIy3ylAsriPpoYE7yQCF p inywc039XjMne7nfXWEfvYZwX FzvLZO1R82zw9I2USJkVDAfQE C2wMR9gC6buWvncostkBHnzDl g bsBjcUpkKIhcQLbbW047MUSjk PbsCcUzpmAbGNKlgVC2PH34MT 49fLAag4R0zSN1W6ZcKKYzfhj t gnekxGY3RNBjZBZloB15Yb6fs CejBb6hCPCrDLK2TKAyhTViB2 PdwQ6eEkKvMRPmZQUpA9BanZZ t RWjgR979AReaUkC3GKOlmfAzU 7GfMJEuuPipDhD9e5C5Zz4ST8 K5IG48UX00jFUsq4S3kYX4R1Z h NUZoaddmzksiePR7WVAfXUQin S15Lv6xxWngCq4zDJRjPUJ3UN VhlGDoB5QviQ5bZrBuBDKgVCU w G0IpaUEhREfvF782NYnuPdX6M IGhgbRuY2HfWHKrvYbyRvE5j8 A8Tf5CPAc9QT96WP86dTJdy5J 5 iDY3J1HaSMVfpvhpzchukIW9E TAcGGGdoM73Ya4nfGyfTm1aCP DbEIY9CJOpnTTtV5HakF4oZxB j TZJtIUWmW7ZpyMWeHMitW127O TckLcI4IKVbfzBhY2UbYQNffD egUoY1o0J4Cb9CZOXnYF97ILY 5 mKM6SY13ZQ55A0XnGixnmVEgi +PHRhYmxlIHdpZHRoPScxMD ItYxBiqSyiON2eGe9uAMRjRNM v bSsjvTZnMvOxk0icKCNpOGteQ M1qiJdsM3IvcUG0GRLjl3t2Dr 80B83kX2CwvSF+VRBnoGB4dVF 0 pQ6lSfSoTlE0ZHutJ739QsAwr DVpWenjn6hsl3lheJe7NyO7NN DmziLqxIriOAY5v7YrKs23N70 s IHdpZHRoPSIxNSUiIHZhbGlnb h1lgB5sNl4+LJElhVJ7yBQ9rB 5bUiKqPfB1HIpeJ924BxJfaSY v Ailyi8lgk3vrcEi9WeUqAGAaq wAnrEzbUKE1j3NoBa55E5DsgM foa9JlVuz6xx94kBXgx6L2dAJ 9 S5CrQMAcjfpveAHeuJsoRG6cE VJhgqcdHFKnuR6vUBPrH5g9Mm ZyPmS3XBvxP0DkjaY7LASpnNP g IIcnJUP7F29xi0H4AHEmKOOsK MW9vAQ7iQ9muTmpqcuzjYBsgL qzfySuiYakCPzrSWwjO621FKO v cVweAUMhfL6lKHNmjVEayCniB H0bWYKtkgaqEw5VWY8OGTpqRy 1OQ3SlFKjhfPB+NWVwJBN3iTw l CHwwWREpyT7wANOrD4q3LzSmI hZ7TBskO0NoLHYzqpawXg03kQ 6lMzGkQkB8NEsdN0BjkiM2GVH w aLScXCwcGFP1S12cd6E7OYHsK ANgJKO6tKF2pD2liYtvzoyswV EyqMrslgGmnVsgKOevGVmzY56 6 UUIcmNiuRcH3OkMxTsJ1KJi0S 3TdSpk1MQYofKmoII5lzFCqEJ hdYy3ipOxzcRzbGR6hFFWymwf w CCFpeM7iGEIuoXIrvQamPA3oD PTjikate357GxEyVUY6MKPvrM VfZ4EnkX6gPzYfZRVmTVGlE9A l iPHzSKryP563BQwfFtY5PUEqp bUwN8VnGINwuEmdCgI4m0N5Uk 43MyBZZWFyczwvdGQ+PHRkIHN 0 rKcaBHqvHVCcpP6bCQQbU8c3F aSlTaO7POzqZ4KeLTMvvgngXz 54dN5qRkQkOrI4SMgaH3ShfbD 6 OYWqlZSbRWxfBQL2M26hv0A4B YJsFOOpUME1dJW0iC8moUbqas ogbGVmdDsgdmVydGljYWwtYWx p T179UPOtiTfjFsFBJMKHRMgze GQ+FQQbGSY0vJnuBNvqRYXqvN 7xYKGiP7a8TxRyMcC3BAywH0H h JNFlrqaeVp45tV7mWqNzAwQ8F DqlV3YsanE2UOShxWZxIIddDR Y2B74pb8E6COIbOKKrIEN6kKL 4 xC6ooTqucllhzCLvuTbrfbPak RnwEMqxIDvvL799UWSsmIpyHg 5APV45UY96R9QvGiblfQTudBH + PHRhYmxlIHdpZHRoPScxMDAlJ pHixJolVH3dOj3tVQOzYLSikQ wdrPTqOhKsn4fvCGLbIVglDY6 w vYtsV5NysPI3RCWwr9g2Sx08M 78eZ0YomVY+RXCbnHM3fZF8gU 6xNrBnBkA8ITymK803FpVckMF v Ixhkw2kth9smcHa7CzMxUWUwc mCxvHjrOLG0r6DzXq60D90tTN dpZHRoPSIyMCUiIHZhbGlnbj0 i uJ6aTe8+GCGuzMW3bMD1kN7xX oOhJtE2VMaaL798YxPffVPzAr ffS89fQ2GjyAP+NPEcQxw1FMP z dTveGV3naAUiUCnsYg6zXLY7Y yPvQeIrDChwP8SfZUHqopfngz zgmJH3IZTdZMQotH34Zr7zsBt g Rh4dBXTmZMH7ZPElrNZeY6Uqq D7pYuIpXTTsYCEnX6QnuQGsLP yoJ105XAxvMkF2RRGdvgVuE0L s ILAbjXdbGcS0t6M3Lz5HoMrts HXrIZ0dGtNeABl2P2VjSkx5XG OyiGpzLO8jyCSdMJxaNt1qfDq o gSebBM1hFIKsotyvu655SzLee 4tqQAEflKXwMDlwPAN0I58kx2 B5HYGpXPAoBKS7zTL1eA6jhTa n bjogbGVmdDsgdmVydGljYWwtY YdiH558ZEHidWubNyMXIlk4P8 CtHvh2ZKHvbXapXL4ouMZiPQg u Nh9jkCaopWvuEE6dDGVbbpmiz 826JtYqv9veTJXixZDrKUkzQZ X4U12eh4X9SBLfHDHcGMP2gOJ 4 gX8alOiqvwqlwSYdxEijjpDfk OcnIOqkTFnfS387NCZhmYvhGr 5IMvp8W0BtXwv7JGQmrVlkJJ8 n nPEqVCumNo3oqMrtbOcpWZ1lH PXhvszev062VfLof9xtESRolM JhXWqyFLG1B66wk1Z0LEMgJUR w EMU0iKZ8fF7cyWuutsigaNBly EekhcDiyUhnJMhmRGhvF749TF RvcDsnPlBheWVyOjwvdGQ+PC9 0 es54L0HkBcqjIib0UTUyRVD7g SJ7hU6aHCMqUSrvd3H6vQA4G5 RqkyTjmm3zz0qrEHQgSIekH63 s bGF (more content not included)... [facility] Consent Formson 01-23-2021 Consent Forms [id number] [facility] Progress Note - Nurseon 01-03 Progress Note - Nurse Dr Nicholson reviews p t chart and no new orders were received. [Electronically Signed on: 01/23/2021 12:10 EST] Martha Romero RN [Verified on: 01/23/2021 12:10 EST] Martha Romero RN [facility] C MRSA Screenon 01-20-2021 C MRSA Screen Negative [facility] Comment on above: Performed By: #### 4 [id number] #### [facility] (DEFAULT) [address] [place] [address] Provider Orderson 01-20-2021 Provider Orders [id number] [facility] UA Dnnem7gq 01-19-2021 UA Bacteria None [facility] Comment on above: Order Comment: Urina lysis Microscopic order added on by Dis[employer] Expert Rules system. Performed By: #### 5 [id number], [id number] ####[facility] (DEFAULT)[address] [place] [address] UA RBC 3-5 [facility] Comment on above: Order Comment: Urina lysis Microscopic order added on by [employer] Expert Rules system. Performed By: #### 5 [id number], [id number] ####[facility] (DEFAULT)[address] [place] [address]2017 UA Squam Epi Rare [facility] Comment on above: Order Comment: Urina lysis Microscopic order added on by [employer] Expert Rules system. Performed By: #### 5 [id number], [id number] ####[facility] (DEFAULT)[address] [place] [address] UA WBC 0-2 [facility] Comment on above: Order Comment: Urina lysis Microscopic order added on by [employer] Expert Rules system. Performed By: #### 5 [id number], [id number] ####[facility] (DEFAULT)[address] [place] [address] 85766 UA w Culture if Ind Standard on 01-19-2021 Culture? No [facility] Comment on above: Performed By: #### 5 [id number], [id number] ####[facility] (DEFAULT)[address] [place] [address]67 Breakpoint UA [facility] Comment on above: Performed By: #### 5 [id number], [id number] ####[facility] (DEFAULT)[address] [place] [address] 47319 Color (U) Yellow [facility] Comment on above: Performed By: #### 5 [id number], [id number] ####[facility] (DEFAULT)[address] [place] [address] 77362 Glucose (U) [Mass/Vol] Negative [facility] Comment on above: Performed By: #### 5 [id number], [id number] ####[facility] (DEFAULT)[address] [place] [address] 93632 Ketones Ql (U) Negative Normal [facility] Comment on above: Performed By: #### 5 [id number], [id number] ####[facility] (DEFAULT)[address] [place] [address] 36046 Micro? Indicated Invalid Interpretation Code [facility] Comment on above: Result Comment: Resu lt created by rule GL_MAGR_ADD_UA_MICRO Performed By: #### 5 [id number], [id number] ####[facility] (DEFAULT)[address] [place] [address] 77053 UA Bilirubin Negative Normal [facility] Comment on above: Performed By: #### 5 [id number], [id number] ####[facility] (DEFAULT)[address] [place] [address] 04031 UA Blood MODERATE Abnormal NEGATIVE [facility] Comment on above: Performed By: #### 5 [id number], [id number] ####[facility] (DEFAULT)[address] [place] [address] 08774 UA Clarity CLEAR Normal CLEAR [facility] Comment on above: Performed By: #### 5 [id number], [id number] ####[facility] (DEFAULT)[address] [place] [address] 70279 UA Leuk Est Negative Normal NEGATIVE [facility] Comment on above: Performed By: #### 5 [id number], [id number] ####[facility] (DEFAULT)[address] [place] [address] 93883 UA Nitrite Negative Normal NEGATIVE [facility] Comment on above: Performed By: #### 5 [id number], [id number] ####[facility] (DEFAULT)[address] [place] [address] 54915 UA pH 6.0 Normal 5-8 [facility] Comment on above: Performed By: #### 5 [id number], [id number] ####[facility] (DEFAULT)[address] [place] [address] 09996 UA Protein Negative Normal NEGATIVE [facility] Comment on above: Performed By: #### 5 [id number], [id number] ####[facility] (DEFAULT)[address] [place] [address] UA Spec Grav 1.025 Normal 1.001-1.03 5 [facility] Comment on above: Performed By: #### 5 [id number], [id number] ####[facility] (DEFAULT)[address] [place] [address] UA Urobilinogen <0.2 Normal 0.2-1.0 [facility] Comment on above: Performed By: #### 5 [id number], [id number] ####[facility] (DEFAULT)[address] [place] [address] Urine Source Clean Catch Normal [facility] Comment on above: Performed By: #### 5 [id number], [id number] ####[facility] (DEFAULT)[address] [place] [address]49 Coding Summaryon 11-08-2020 Coding Summary HTMLBase 64 HmehwunrABw8lSp+PGhlYWQ+P A2ZTPQzW10gqLAmyD7PD9aUHS 6KMZBUQIYGIQ4HWH4kaRM5HUv nK7MgswQu ThdapZExXK76IWo9RLQ0nZsvC UkjuN7jnSTlQ8n3WhBuPX55zP 44GPjjMKNwJxS4JiKzsimmjPC y T0yjEuNrlQUhVhl+PHRhYmxlI HdpZHRoPScxMDAlJyBzdHlsZT 8sWl7xTBHqWUPabTcdjFGmFxL j i1joUJWxMXfaPD9bgVjsO7Ptq OQ4LFBzz1h8Ci64dTX+PHRkIH M8rVonSHsva907MiJth9zlITK 3 rMUsPZqfKDE4X71rl3V1ZQDwL FFlIJK5dCM4rR3nrBqqroqmQ7 NlpMHbVjQ0BTQ2rPLzlU0dsNs n caohrY6bZgx+U08UBO2AYGCUT V4DQcb2Y7EaYityfNI+PC90YW FaAK90dKEqaKJhj8iwoQo7FnY w WGGjIAZ8xJemRXdyz5KsPOMxH 46qmKOex7L0EXIooNblcQFjJl XevOX4aB3tGNacdkvly4entld n Ljnmr1tzsc64mF98B05kLAbgZ IVxCCZ7NAXjOFYafWheni3wpW 9wIi8+VBnjx9mau2dfzTt3EbR w CTIaijCguEnsBGR0i7MtFk30B 7EpiQmeg5JaQfd1ui54rBZia4 A6aSV5FBxmEJNlfU7iMWbxAxS 6 KBPqNiOeqE00kIRvARfgLq0dr WnegGhyEJ9iZUYfjzyfAIUefW 0yZKNidOHlgLtsXO6nSJFpabp m w897EtNtXQC1ZZCgfNXkB0Fju U5dMwMsLFLfFVHtY7AorDCeIL whZ845RUnyMgZ8YSFsydKtJ2O s ODXeuXghDcY0j3S3Bd5Qt9Tbr uqbOLD4ZAajBLN3BnY6CiLaBg N5R9LnPku5CTVujIpdGJ2pA4H h BZLoldemljkjxDP5CDRsKXWuw R97uVUkIWqyYe9fh1W9f681VN RcXSXdhL54Cz2loRtbSFKvkAB U uP1iqoxhi4amxwvkIcEzBRLxQ Vd2HAk1DTXgrCiaNbNsIHJ5Nu O9BYB3cTFwkP7taGfvbuskiJ8 w Oyc+H82mhC1aRIC7MLK3ijjqN AQyfiKvNE36TR99X4LmEanxxZ FibGU+ULKvgeKjnKqaBE4aWqU j i2lbm5FsBRaiO5KkCULhGSywY ae0LLLsQFD2iFV6aR7cBZZmPZ jjk2R9cIL5T6WwyyAasz8xn9d s ZCPzBRftH18nhDOmr3L8DJDuc DO8PNQxcIjyXpGlsX26Ajm+PG RyxIrvq4JzEjuut5qni7cnhLx 9 QiWfNXByqeHgfBzlZXN3z5UlA b89G67dENurVLAlZCWgIVIzPW PzeEulyb5qnN1iIv8+PGNvbCB 3 kCJ0wE2sONCtUzP8KAykL383Q qQhvVGqXgife4pba6smcHt6Nx RcAXGpncGirJeaUAE8z4WfWf4 8 C75gKHrcYUYdQLBtUQBfIECrl Vfcro7zmI6xBe2+OZ4iu1evtl 07jD83uHP+GNKuPZP6lUelAXk w ROYdbU9rNMvmQlO2SMDaOtJgd I14tZDeZXkdAn5heSkreJhoIU 6lUKYabuzqx385XaNdb4fwVGC w qQXfCKjnCRT9C43um4J7ZCYiP AJuNLG3mNO1xE7liRrtfeveqH DwwUbomzZrlZuaFJqaKJxlB90 6 IHRvcDsnPlBhdGllbnQgTmFtZ Nf4L3VwWjk6JTYdnGqhQT7vvN SsUGiyWb2btFzjcNoeXL2gCYK p pakih937PgAfp5xnOVGjjHGoK ZahESH3Z43kh1U1FKBgFTSxCL V4rSG9hW8gtHhrlyoctUHfuLu g waQuiTszSMvuZChiS245DZXpy PrgXjNtppNjZNOlaFH9EL68AC 85jODvg2M9cLO2C4IqICZstpu t ewalxLD4GRIeKEZmcQ00Pl1su KsaZs2jYQVsOIS4IABdwHPgI8 UchZ9rVoIoMNIuEGZcQ4GdgSB t NNakF080KWxtHeB5WZNzcyFtN 8VrTRSqaGshPsL2s7K7Wr9BM2 V9AL76QH02jFNtw5U1nTA0R1X h UVHfzoxywbwxyRM2KDSpNTPsj Q24Ls2goHrmTv5tIEGnIFR7BV SwhFZrM5NigC8uRzImJUOxHYK w M0XanOOdJGypH611VLcxIcQ9P PImqaYdW4FnLLLpdBuvXjV8h6 B3Uk8JPTx6RN21LT80pCVqd7I 5 dAN9X4SxVXMzpupsdfsfgLH1K UEfBORieR99Nu3afApiEy0xWE DrIQU4DNSybYLiW3TbbF5tTtM j ZTKpGTVgK9IzlZRkQRfiU495R DauKeS5QFYblmBqV7MtIRJscG mhCyP9z2Z9Bm0RCCJxNB08XIS 5 sLK3QY57PP79D4IzQoaycCPfx +PHRhYmxlIHdpZHRoPScxMD PjTqFroMnvMK3pEr3yAXPtWBD v oBvuvQGsBxLbj2taUERrCLpdI M5anQsrK7HbiPY1RBYft9j2Ld 69D84vH0PswFZ+SMUysXB7qMZ 0 fK5tRmMlOnU4HNyyA402FbPna NAkSnxmm3ivt5vgdIu3KzA2GD NroeZlxFzsNYB7w0UiPv22P44 s IHdpZHRoPSIxNSUiIHZhbGlnb o9rkA5wGp2+EVRiqCH1tHS5wD 9cLvZwWzJ5GEfyM291IlOuxFB v Qdeyl1fhq6vycTa2UjYdWTXgf fKmnTkhLOA7k8DiXa67Y3XklC jhr7WcGlz0xb15mIZzz2Z3yIU 9 R5XxXFUbndnnkHNvmPatFE7gK YDpgyygZOTfkA8eUARbM0f8Dn KdPqS8BKobU5CgdtF2QDFzpIM g SIwqHER8A68bw7X1JTQsGHMhJ NS6fKX5jY0jzYgpswddqOIsvP uyhkHjaQbzBJccUPzlY602HGU v hCciXOYfdQ7hOENbkCKpuFeuY J3tBXFdsetoDl6IWE9QNJnlYd 1SM2DwVEidzBE+NQPlFNY3aEl l ZWyfQFUdvB9kJDXdO6d6KdKqI mV1LVryP3VrBDIvstclYn10kV 4qTdLaZnY9FZdnF9BbsxO1MMR w zPKkSUjkOGB4D46kx2W8EZTxG ROgDLY7yHT2nS7biKxpqqzcuK QsqYnuncJpjAnyZSedOPqiB83 6 BOCpdRgpKoC4FwEhFfC7UUp6S 0DhHby1VHGioRyjMG7gkQKeUC llNz4nuQxbzMgeWD9kWAZdaex w QHYnyH6bDSXveRGmqOeuYH5bU ALeyxfse365WhPmEHF2AZXuwL XtW7AwfK1cLoBaFFUhDPYfX7T l pHLbWMbzT574BGuyZcI9MYPtm yLtP9YwDVHnrRqxNdF5y8V3Pm 43MyBZZWFyczwvdGQ+PHRkIHN 0 bAdgMZktEXJulK0fOARhM9s2C nKhHfK2HZtrG0GhZEQstdbdKr 41iB6qYsDvSdC4ZMmzE4MqutH 6 RBMxxVKiLVsjXPK4O40cg5H7U USwAQMwNQN0mQP3dJ2yhAsvfq ogbGVmdDsgdmVydGljYWwtYWx p X739FEEiiNmtJoAVWQMVVAqjo GQ+ECUqVWP1uUarAOawFPRhhS 0vIVBoA4g7IsSnVlJ7HPlsF6Y h TQWrmemyKd32fN8hWaTdWuU4P OyuM6WzxzR3MAUerGAwUVkbVM S1P98cd1B6HXZmLFWuEIM2iWM 4 mW3ylCwtdhzxoAZibDvgesYbc WpzUBzwAHgiB420ZMEwiEwyYp 7WKR10ZV76V8MmGpumxCBqwLT + PHRhYmxlIHdpZHRoPScxMDAlJ bEvlEmsEN8xPq8zLCTrYYVhyJ zleTRxFkIcg9ndDEToGPccKR8 w dXouL6FjuFD2DHLel5o4Xq40Z 21jV4VgvOH+DCQaeWN7lER5tM 0mBoNcMgF2WSmgZ414LcRnnKR v Rynzq4uup7jucCl5CwVaUUIdm tAooOmhWAO0h2TxHi97Q34vIB dpZHRoPSIyMCUiIHZhbGlnbj0 i hM7gWs9+MWJyoPV8nVH8lA5fU vUwTxO7RKomI666EzBlgGQuNm qlL35zS3CbkCI+YGFrRxx5SEQ z sHalBU4dfQAzRHwyVm5qPSI5S uWvFnWiCCdxH0LzUDTimgggfo uyxKP8CMZkQIKrnK36Mk7vpHn g Br1eVZXkXYY5QTXprRKdH7Peo M8pZcPsWUAlPPJlN4CuxQUqOX kjT654OGnnUbM3JVZqdvUsP1A s QVIzmOmaRlJ7c1Q6Lt5BfOnhn NOkUM1mXbScVNj3N5UwVjm2HM UutNcjOY6zvVPiFGhuHo3wkMq o ySskUW9dWZVuxlzph945FvBxg 1pqPKVkaRHnZKmxHGZ3X05sf0 Q9KLHbXGWbJZZ8xOF4jX8sfHm n bjogbGVmdDsgdmVydGljYWwtY LxrJ250WGNqvPbuPkGLPqn2P2 MgAfd6LHJlkTumTF2xpBRmTOn u Aj1zkKlkcZkcUS2dJUInkfbla 816UsNdd1pfSUPvzKByKFcmRK G1L09kk4A8BIThRDRoVUF9bNS 4 cG5pjXxmdhipqZLygYliedOlg UtwAKckUGidJ273IGDfoZnxPk 0VKjj7Z9SpCtf1ODVijNkrIU4 n sEUnGGxqEd9pdPnrnAmbHW9nT EXqkvtvb613HqQsm8mvNSNqaZ OnLMhoTJA1T85rj0W6HEScSEX w MWS7gTO3jU6bpKxqsfukkECsn ExrgqIzsScsXYqkCXkkT326PU RvcDsnPlBheWVyOjwvdGQ+PC9 0 qe34U9WzYmukUrt2VPOiNQN2c HC2tK7wWBEwJVyoo2Q0jJO9L4 HtlwBprt3ju6pcRPUqYRrkW88 s bGF (more content not included)... [facility] Consent Formson 11-08-2020 Consent Forms [id number]#[id number] [facility] Progress Note - Nurseon Progress Note - Nurse PAT review for jennifer parra on 11-28-2020 done per anesthesiologist, Dr. Arreguin- no additional orders received. [Electronically Signed on: 11/08/2020 14:35 EDT] Kristina Schulte RN [Verified on: 11/08/2020 14:35 EDT] Kristina Schulte RN [facility] Provider Orderson 11-08-2020 Provider Orders [id number]#[id number] FF [facility] C Urineon 11-06-2020 C Urine Urine Culture ordere d as a result of parameters set on specific urine dip and urine microsopic results. <10,000 cfu/ml [facility] Comment on above: Performed By: #### 4 [id number] #### [facility] (DEFAULT) [address] [place] [address]44 .Auto Diff 1on 11-05-2020 Auto [place] % 11 % Normal 12 [facility] Comment on above: Performed By: #### 4 [id number] #### [facility] (DEFAULT) [address] [place] [address] 77047 Baso Abs# 0.0 x10 Normal 0.0-0.2 [facility] Comment on above: Performed By: #### 4 [id number] #### [facility] (DEFAULT) [address] [place] [address] 90098 Basophils/100 WBC (Bld) 0.5 % Normal 0.2-2.0 [facility] Comment on above: Performed By: #### 4 [id number] #### [facility] (DEFAULT) [address] [place] [address] 46278 Eos Abs# 0.2 x10 Normal 0.0-0.4 [facility] Comment on above: Performed By: #### 4 [id number] #### [facility] (DEFAULT) [address] [place] [address] 03670 Eosinophils/100 WBC (Bld) 4.0 % Normal 0.9-4.0 [facility] Comment on above: Performed By: #### 4 [id number] #### [facility] (DEFAULT) [address] [place] [address] 53470 Lymph Abs# 1.4 x10 Normal 1.3-2.9 [facility] Comment on above: Performed By: #### 4 [id number] #### [facility] (DEFAULT) [address] [place] [address] 31283 Lymphocytes/100 WBC (Bld) 24 % Normal 14-48 [facility] Comment on above: Performed By: #### 4 [id number] #### [facility] (DEFAULT) [address] [place] [address]115 Creek Abs# 0.6 x10 Normal 0.0-0.8 [facility] Comment on above: Performed By: #### 4 [id number] #### [facility] (DEFAULT) [address] [place] [address] 84340 Neut Abs# 3.3 x10 Normal 1.5-9.2 [facility] Comment on above: Performed By: #### 4 [id number] #### [facility] (DEFAULT) [address] [place] [address] 90760 Neutrophils/100 WBC (Bld) 60 % Normal 44-88 [facility] Comment on above: Performed By: #### 4 [id number] #### [facility] (DEFAULT) [address] [place] [address] 61965 C MRSA Screenon 11-05-2020 C MRSA Screen Negative Normal [facility] Comment on above: Performed By: #### 1 [id number] ####[facility] (DEFAULT)[address] [place] [address] 76549 CBC w/ Auto Diffon Erythrocyte distribution width (RBC) [Ratio] 13.7 % Normal 11.5-15.0 [facility] Comment on above: Performed By: #### 4 [id number] #### [facility] (DEFAULT) [address] [place] [address] 74540 Hematocrit (Bld) [Volume fraction] 45.4 % High 33.7-40.4 [facility] Comment on above: Performed By: #### 4 [id number] #### [facility] (DEFAULT) [address] [place] [address] 65110 Hemoglobin (Bld) [Mass/Vol] 14.4 g/dL Normal 11.3-15.9 [facility] Comment on above: Performed By: #### 4 [id number] #### [facility] (DEFAULT) [address] [place] [address] 73981 Instr WBC 5.5 x10 Invalid Interpretation Code [facility] Comment on above: Performed By: #### 4 [id number] #### [facility] (DEFAULT) [address] [place] [address] 10185 Man Diff? Auto Normal [facility] Comment on above: Performed By: #### 4 [id number] #### [facility] (DEFAULT) [address] [place] [address] 53766 MCH (RBC) [Entitic mass] 29 pg Normal 24-34 [facility] Comment on above: Performed By: #### 4 [id number] #### [facility] (DEFAULT) [address] [place] [address] MCHC (RBC) [Mass/Vol] 32 g/dL Normal 26-37 [facility] Comment on above: Performed By: #### 4 [id number] #### [facility] (DEFAULT) [address] [place] [address] MCV (RBC) [Entitic vol] 92 fL Normal 81-100 [facility] Comment on above: Performed By: #### 4 [id number] #### [facility] (DEFAULT) [address] [place] [address] 21616 Platelet 261 x10 Normal 138-427 [facility] Comment on above: Performed By: #### 4 [id number] #### [facility] (DEFAULT) [address] [place] [address] 90049 Platelet mean volume (Bld) [Entitic vol] 10.5 fL High 6.3-10.2 [facility] Comment on above: Performed By: #### 4 [id number] #### [facility] (DEFAULT) [address] [place] [address] 40430 RBC 4.91 x10 Normal 3.70-5.30 [facility] Comment on above: Performed By: #### 4 [id number] #### [facility] (DEFAULT) [address] [place] [address] 31852 WBC 5.5 x10 Normal 3.5-10.5 [facility] Comment on above: Performed By: #### 4 [id number] #### [facility] (DEFAULT) [address] [place] [address] 78177 [facility] Standardon 11-04-2020 eGFR Non AA >60 Invalid Interpretation Code [facility] Comment on above: Performed By: #### 4 [id number] #### [facility] (DEFAULT) [address] [place] [address] 12659 eGFR AA >60 Invalid Interpretation Code [facility] Comment on above: Result Comment: [employer] Supervisor pepper Kidney disease could be indicated at eGFRs of less than 60 ml/min/1.73m2. Kidney Failure is indicated at less than 15 ml/min/1.73m2 Performed By: #### 4 [id number] #### [facility] (DEFAULT) [address] [place] [address] 03096 Anion gap [Moles/Vol] 15.0 mmol/L Normal 5.0-19.0 [facility] Comment on above: Performed By: #### 4 [id number] #### [facility] (DEFAULT) [address] [place] [address] 99195 Calcium [Mass/Vol] 9.0 mg/dL Normal 8.9-10.3 [facility] Comment on above: Performed By: #### 4 [id number] #### [facility] (DEFAULT) [address] [place] [address] 65198 Chloride [Moles/Vol] 98 mmol/L Low 101-111 [facility] Comment on above: Performed By: #### 4 [id number] #### [facility] (DEFAULT) [address] [place] [address] [phone] CO2 [Moles/Vol] 28 mmol/L Normal 21-32 [facility] Comment on above: Performed By: #### 4 [id number] #### [facility] (DEFAULT) [address] [place] [address] [phone] Creatinine [Mass/Vol] 0.86 mg/dL Normal 0.60-1.30 [facility] Comment on above: Performed By: #### 4 [id number] #### [facility] (DEFAULT) [address] [place] [address] [phone] Glucose [Mass/Vol] 96.0 mg/dL Normal 74.0-118.0 [facility] Comment on above: Performed By: #### 4 [id number] #### [facility] (DEFAULT) [address] [place] [address] [phone] Osmolality 274 mOsm/L Invalid Interpretation Code [facility] Comment on above: Performed By: #### 4 [id number] #### [facility] (DEFAULT) [address] [place] [address] [phone] Potassium [Moles/Vol] 4.1 mmol/L Normal 3.6-5.1 [facility] Comment on above: Performed By: #### 4 [id number] #### [facility] (DEFAULT) [address] [place] [address] 08533 Sodium [Moles/Vol] 137.0 mmol/L Normal 136.0-144 . 0 [facility] Comment on above: Performed By: #### 4 [id number] #### [facility] (DEFAULT) [address] [place] [address] Urea nitrogen [Mass/Vol] 15 mg/dL Normal 8-26 [facility] Comment on above: Performed By: #### 4 [id number] #### [facility] (DEFAULT) [address] [place] [address] 86037 Urea nitrogen/Creatinine [Mass ratio] 17.0 mg/mg High 4.6-16.2 [facility] Comment on above: Performed By: #### 4 [id number] #### [facility] (DEFAULT) [address] [place] [address] 08978 UA Pwbel9si 11-04-2020 UA Bacteria Trace Normal [facility] Comment on above: Order Comment: Urina lysis Microscopic order added on by [employer] Expert Rules system. Performed By: #### 4 [id number] #### [facility] (DEFAULT) [address] [place] [address] 97893 UA RBC >100 Normal [facility] Comment on above: Order Comment: Urina lysis Microscopic order added on by [employer] Rules system. Performed By: #### 4 [id number] #### [facility] (DEFAULT) [address] [place] [address] 28505 UA Squam Epi Rare Normal [facility] Comment on above: Order Comment: Urina lysis Microscopic order added on by [employer] Expert Rules system. Performed By: #### 4 [id number] #### [facility] (DEFAULT) [address] [place] [address] UA WBC 50-60 [facility] Comment on above: Order Comment: Urina lysis Microscopic order added on by [employer] Rules system. Performed By: #### 4 [id number] #### [facility] (DEFAULT) [address] [place] [address] UA w Culture if Ind Standard on 11-04-2020 Breakpoint UA [facility] Comment on above: Performed By: #### 4 [id number] #### [facility] (DEFAULT) [address] [place] [address] Color (U) Yellow [facility] Comment on above: Performed By: #### 4 [id number] #### [facility] (DEFAULT) [address] [place] [address] Culture? Indicated Invalid Interpretation Code [facility] Comment on above: Result Comment: Resu lt created by rule GL_MAGR_ADD_UA_CULT Result created by rule GL_MAGR_ADD_UA_CULT Result created by rule GL_MAGR_ADD_UA_CULT1 Result created by rule GL_MAGR_ADD_UA_CULT Performed By: #### 4 [id number] #### [facility] (DEFAULT) [address] [place] [address] Glucose (U) [Mass/Vol] Negative [facility] Comment on above: Performed By: #### 4 [id number] #### [facility] (DEFAULT) [address] [place] [address] Ketones Ql (U) Negative [facility] Comment on above: Performed By: #### 4 [id number] #### [facility] (DEFAULT) [address] [place] [address] Micro? Indicated Normal [facility] Comment on above: Result Comment: Resu lt created by rule GL_MAGR_ADD_UA_MICRO Performed By: #### 4 [id number] #### [facility] (DEFAULT) [address] [place] [address] 45932 UA Bilirubin Negative Normal [facility] Comment on above: Performed By: #### 4 [id number] #### [facility] (DEFAULT) [address] [place] [address] 05837 UA Blood LARGE Abnormal NEGATIVE [facility] Comment on above: Performed By: #### 4 [id number] #### [facility] (DEFAULT) [address] [place] [address] 56671 UA Clarity CLOUDY Abnormal CLEAR [facility] Comment on above: Performed By: #### 4 [id number] #### [facility] (DEFAULT) [address] [place] [address] UA Leuk Est LARGE Abnormal NEGATIVE [facility] Comment on above: Performed By: #### 4 [id number] #### [facility] (DEFAULT) [address] [place] [address] UA Nitrite Negative Normal NEGATIVE [facility] Comment on above: Performed By: #### 4 [id number] #### [facility] (DEFAULT) [address] [place] [address] 12837 UA pH 7.0 Normal 5-8 [facility] Comment on above: Performed By: #### 4 [id number] #### [facility] (DEFAULT) [address] [place] [address] UA Protein Negative Normal [facility] Comment on above: Performed By: #### 4 [id number] #### [facility] (DEFAULT) [address] [place] [address] UA Spec Grav 1.015 Normal 1.001-1.[address] [place] [address] Comment on above: Performed By: #### 4 [id number] #### [facility] (DEFAULT) [address] [place] [address] 82074 UA Urobilinogen 0.2 mg/dL Normal 0.2-1.0 [facility] Comment on above: Performed By: #### 4 [id number] #### [facility] (DEFAULT) [address] [place] [address] 26854 Urine Source Clean Catch Normal [facility] Comment on above: Performed By: #### 4 [id number] #### [facility] (DEFAULT) [address] [place] [address] Vital Signs Date Time Vital Sign Value Performing Clinician Facility 02-19-2023 14:45-0500 Body height 154.94 cm Wan Mast Other [facility] Other 02-19-2023 14:45-0500 Body mass index (BMI) [Ratio] 41.36 kg/m2 Wan Mast Other [facility] Other 02-19-2023 14:45-0500 Body temperature 97.3 [degF] Wan Mast Other [facility] Other 02-19-2023 14:45-0500 Body weight 99.29 kg Wan Mast Other [facility] Other 02-19-2023 14:45-0500 Diastolic blood pressure 72 mm[Hg] Wan Mast Other [facility] Other 02-19-2023 14:45-0500 Respiratory rate 18 /min Wan Mast Other [facility] Other 02-19-2023 14:45-0500 SaO2% (BldA) [Mass fraction] 95 % Wan Mast Other [facility] Other 02-19-2023 14:45-0500 Systolic blood pressure 110 mm[Hg] Wan Mast Other [facility] Other 01-22-2023 11:00-0500 Body height 154.9 cm Jacqueline WHITLOCK Work Phone: [facility] 01-22-2023 11:00-0500 Body mass index (BMI) [Ratio] 42.89 kg/m2 Jacqueline Campos CORK INSULATOR-CREDIT CLERK Work Phone: [facility] 01-22-2023 11:00-0500 Body weight 102.97 kg Jacqueline Campos CORK INSULATOR-CREDIT CLERK Work Phone: [facility] 01-22-2023 11:00-0500 Diastolic blood pressure 80 mm[Hg] Jacqueline Campos CORK INSULATOR-CREDIT CLERK Work Phone: [facility] 01-22-2023 11:00-0500 Heart rate 76 /min Jacqueline Campos CORK INSULATOR-CREDIT CLERK Work Phone: [facility] 01-22-2023 11:00-0500 Systolic blood pressure 120 mm[Hg] Jacqueline Campos CORK INSULATOR-CREDIT CLERK Work Phone: [facility] 01-18-2023 12:02-0500 Body temperature 98.3 [degF] MD Nicole Vargas Work Phone: [facility] 01-18-2023 12:02-0500 Heart rate 75 /min MD Nicole Vargas Work Phone: [facility] 01-18-2023 12:02-0500 Respiratory rate 18 /min MD Nicole Vargas Work Phone: [facility] 01-18-2023 12:02-0500 SaO2% (BldA) [Mass fraction] 95 % MD Nicole Vargas Work Phone: [facility] 01-18-2023 07:26-0500 Diastolic blood pressure 71 mm[Hg] MD Nicole Vargas Work Phone: [facility] 01-18-2023 07:26-0500 Systolic blood pressure 141 mm[Hg] MD Nicole Vargas Work Phone: [facility] 01-18-2023 05:31-0500 Body weight 104.2 kg MD Nicole Vargas Work Phone: [facility] 01-17-2023 12:43-0500 Body height 154.94 cm MD Nicole Vargas Work Phone: [facility] 12-25-2022 10:12-0400 Body height 154.9 cm Nani Calloway MD Work Phone: [facility] 12-25-2022 10:12-0400 Body mass index (BMI) [Ratio] 42.14 kg/m2 Nani Calloway MD Work Phone: [facility] 12-25-2022 10:12-0400 Body weight 101.15 kg Nani Calloway MD Work Phone: [facility] 12-25-2022 10:12-0400 Diastolic blood pressure 88 mm[Hg] Nani Calloway MD Work Phone: [facility] 12-25-2022 10:12-0400 Heart rate 77 /min Nani Calloway MD Work Phone: [facility] 12-25-2022 10:12-0400 Systolic blood pressure 132 mm[Hg] Nani Calloway MD Work Phone: [facility] 12-10-2022 11:00-0400 Body height 154.94 cm Jani Willy Other [facility] Other 12-10-2022 11:00-0400 Body mass index (BMI) [Ratio] 42.06 kg/m2 Jani Willy Other [facility] Other 12-10-2022 11:00-0400 Body temperature 96.8 [degF] Jani Willy Other [facility] Other 12-10-2022 11:00-0400 Body weight 100.97 kg Jani Willy Other [facility] Other 12-10-2022 11:00-0400 Diastolic blood pressure 85 mm[Hg] Jani Willy Other [facility] Other 12-10-2022 11:00-0400 Respiratory rate 18 /min Jani Willy Other [facility] Other 12-10-2022 11:00-0400 SaO2% (BldA) [Mass fraction] 95 % Jani Willy Other [facility] Other 12-10-2022 11:00-0400 Systolic blood pressure 130 mm[Hg] Jani Willy Other [facility] Other 10-31-2022 14:21-0400 Body height 154.94 cm MD Nicole Vargas Work Phone: [facility] 10-31-2022 14:21-0400 Body weight 100.24 kg MD Nicole Vargas Work Phone: [facility] 10-31-2022 14:00-0400 Diastolic blood pressure 92 mm[Hg] MD Nicole Vargas Work Phone: [facility] 10-31-2022 14:00-0400 Heart rate 80 /min MD Nicole Vargas Work Phone: [facility] 10-31-2022 14:00-0400 Systolic blood pressure 176 mm[Hg] MD Nicole Vargas Work Phone: [facility] 05-31-2022 10:40-0400 Body height 154.94 cm China Noland Other [facility] Other 05-31-2022 10:40-0400 Body mass index (BMI) [Ratio] 40.81 kg/m2 China Noland Other [facility] Other 03-30-2023 10:40-0400 Body temperature 97.3 [degF] China Noland Other [facility] Other 05-31-2022 10:40-0400 Body weight 97.98 kg China Noland Other [facility] Other 05-31-2022 10:40-0400 Respiratory rate 18 /min China Noland Other [facility] Other 05-31-2022 10:40-0400 SaO2% (BldA) [Mass fraction] 94 % China Noland Other [facility] Other 05-15-2022 14:48-0400 Body height 155 cm Ruth Ann Marlin PA-C Work Phone: [facility] 05-15-2022 14:48-0400 Body temperature 97.5 [degF] Ruth Ann Marlin PA-C Work Phone: [facility] 05-15-2022 14:48-0400 Body weight 100.97 kg Ruth Ann Marlin PA-C Work Phone: [facility] 05-15-2022 14:48-0400 Diastolic blood pressure 97 mm[Hg] Ruth Ann Marlin PA-C Work Phone: [facility] 05-15-2022 14:48-0400 Heart rate 87 /min Ruth Ann Marlin PA-C Work Phone: [facility] 05-15-2022 14:48-0400 Respiratory rate 18 /min Ruth Ann Marlin PA-C Work Phone: [facility] 05-15-2022 14:48-0400 SaO2% (BldA) [Mass fraction] 95 % Ruth Ann Marlin PA-C Work Phone: [facility] 05-15-2022 14:48-0400 Systolic blood pressure 158 mm[Hg] Ruth Ann Malrin PA-C Work Phone: [facility] 03-02-2022 18:15-0500 Body height 154.94 cm China Noland Other [facility] Other 03-02-2022 18:15-0500 Body mass index (BMI) [Ratio] 40.96 kg/m2 China Noland Other [facility] Other 03-02-2022 18:15-0500 Body temperature 97.8 [degF] China Noland Other [facility] Other 03-02-2022 18:15-0500 Body weight 98.34 kg China Noland Other [facility] Other 03-02-2022 18:15-0500 Respiratory rate 18 /min China Noland Other [facility] Other 03-02-2022 18:15-0500 SaO2% (BldA) [Mass fraction] 92 % China Noland Other [facility] Other 12-06-2021 12:00-0400 Body height 154.94 cm Jani Willy Other [facility] Other 12-06-2021 12:00-0400 Body mass index (BMI) [Ratio] 42.13 kg/m2 Jani Willy Other [facility] Other 12-06-2021 12:00-0400 Body temperature 97.1 [degF] Jani Willy Other [facility] Other 12-06-2021 12:00-0400 Body weight 101.15 kg Jani Willy Other [facility] Other 12-06-2021 12:00-0400 Diastolic blood pressure 82 mm[Hg] Jani Willy Other [facility] Other 12-06-2021 12:00-0400 Respiratory rate 20 /min Jani Willy Other [facility] Other 12-06-2021 12:00-0400 SaO2% (BldA) [Mass fraction] 92 % Jani Willy Other [facility] Other 12-06-2021 12:00-0400 Systolic blood pressure 125 mm[Hg] Jani Willy Other [facility] Other Encounters Encounter Date Encounter Type Care Provider Facility Start: 03-05-2023 End: 03-05-2023 ambulatory BERNADINE DIAZ Not Available Start: 02-19-2023 End: 02-19-2023 ambulatory Wan Mast Other [facility] Other Start: 02-19-2023 Office outpatient vi sit 25 minutes Wan Mast [facility] [place] Start: 02-19-2023 Telephone encounter Wan Mast [facility] Start: 02-05-2023 End: 02-05-2023 ambulatory Nicole Minera Facility:[facility] Start: 02-05-2023 End: 02-05-2023 ambulatory [facility] Start: 01-22-2023 Telephone encounter Ordering Provide r [facility] Start: 01-22-2023 End: 01-22-2023 ambulatory JACQUELINE CAMPOS [facility] Other Start: 01-22-2023 End: 01-22-2023 Office outpatient visit 25 minutes Jacqueline Campos CORK INSULATOR-CREDIT CLERK Work Phone: [facility] Comment on above: 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 (Primary Dx); S/P angioplasty with stent; Angina pectoris (CMS/HCC); Essential hypertension, benign; Mixed hyperlipidemia; BMI 40.0-44.9, adult (CMS/HCC) Start: 01-17-2023 End: 01-18-2023 ambulatory Nicole Vargas Facility:[facility] Start: 01-17-2023 End: 01-18-2023 Admission to same day surgery center MD Nicole Vargas Work Phone: [facility] Coordinator Work Phone: Start: 01-17-2023 End: 01-18-2023 ambulatory MD Nicole Vargas Work Phone: [facility] Work Phone: Start: 01-15-2023 End: 01-15-2023 ambulatory [facility] Facility:[facility] Start: 01-15-2023 End: 01-15-2023 Patient encounter procedure MD Nicole Vargas Work Phone: [facility] Testing Work Phone: Start: 12-25-2022 End: 12-25-2022 ambulatory [facility] Start: 12-25-2022 End: 12-25-2022 Office outpatient new 60 minutes Nani Calloway MD Work Phone: [facility] Comment on above: Abnormal stress test ; Angina pectoris ([facility]/HCC); Abnormal EKG; Hyperlipidemia, unspecified hyperlipidemia type; Essential hypertension, benign Start: 12-10-2022 End: 12-10-2022 ambulatory Jani Aguilera Other [facility] Other Start: 12-10-2022 Office outpatient vi sit 15 minutes Jani Willy [facility] Start: 10-31-2022 End: 10-31-2022 ambulatory Shellie Jennings Facility:[facility] Start: 10-31-2022 End: 10-31-2022 ambulatory MD Nicole Vargas Work Phone: [facility] Work Phone: Start: 10-31-2022 End: 10-31-2022 Patient encounter procedure MD Nicole Vargas Work Phone: [facility]Electro[facility] Work Phone: Start: 10-31-2022 ambulatory Facility:[id number] Start: 06-10-2022 End: 06-11-[address] ARY DORADO Facility:[facility] Start: 06-06-2022 End: 06-07-2022 ambulatory SUZE MARROQUIN Facility:[facility] Start: 05-31-2022 End: 05-31-2022 ambulatory China Noland Other [facility] Other Start: 05-31-2022 Office outpatient vi sit 25 minutes China Noland [facility] Start: 05-15-2022 End: 05-15-2022 ambulatory Ruth Ann DIAMOND-C Work Phone: Hematology/Oncology Comment on above: Malignant neoplasm o f lower-inner quadrant of right breast of female, estrogen receptor positive (HCC) (Primary Dx); Breast screening; Encounter for screening mammogram for malignant neoplasm of breast ; Osteopenia, unspecified location Start: 05-15-2022 End: 05-15-2022 Patient encounter procedure Ruth Ann Gutierres PA-C Work Phone: [facility] Start: 04-24-2022 End: 04-25-[address] NICOLE VARGAS Facility:[facility] Start: 04-03-2022 End: 04-04-2022 ambulatory ROSA TURNER Facility:[facility] Start: 03-02-2022 End: 03-02-2022 ambulatory China Noland Other [facility] Other Start: 03-02-2022 Office outpatient vi sit 15 minutes China Noland [facility] Start: 01-23-2022 Refill Ruth Ann Gutierres PA-C Work Phone: Hematology/Oncology Comment on above: Refill Request Start: 12-06-2021 End: 12-06-2021 ambulatory Jani Aguilera Other [facility] Other Start: 12-06-2021 Office outpatient vi sit 25 minutes Jani Hardinr [facility] Start: 10-31-2021 End: 11-01-[address] NICOLE VARGAS Facility:[facility] Procedures Date Procedure Procedure Detail Performing Clinician Start: 02-05-2023 FOLLOW UP IN CARDIOLOGY NANI CALLOWAY Start: 01-22-2023 FOLLOW UP IN CARDIOLOGY NANI CALLOWAY Start: 01-17-2023 Antibody screen Nani Calloway Comment on above: Result Comment: PERF ORMED BY: [facility] [address] [place] [address] PATHOLOGIST LACE WINDER SHELLI CHARLES M.D. Start: 01-17-2023 CT of abdomen and pe lvis without contrast MD Nicole Vargas Work Phone: Start: 01-17-2023 CL Closure Device Placement 0 MD Nicole Vargas Work Phone: Start: 01-17-2023 CL Ivus Initial Vessel MD Nicole Vargas Work Phone: Start: 01-17-2023 CL LHC & COR Angio MD Jonny Vargas Work Phone: Start: 01-17-2023 CL Stent 1st Vessel CX JANICE MD Nicole Vargas Work Phone: Start: 01-17-2023 CL Stent 1st Vessel LAD JANICE MD Nicole Vargas Work Phone: Start: 01-17-2023 CL Stent Ea Add CX JANICE MD Nicole Vargas Work Phone: Start: 01-17-2023 MD Nicole sullivan Work Phone: Start: 12-25-2022 ECG 12-LEAD NANI BASS Start: 12-25-2022 CARDIAC STRESS TEST TIFFANY DIEHL Start: 12-25-2022 Ecg routine ecg w/le ast 12 lds w/i&r Nani Calloway MD Work Phone: Start: 12-25-2022 CARDIAC STRESS TEST Gen wan Provider Scanning Start: 10-31-2022 Radionuclide myocard ial perfusion stress study MD Nicole Vargas Work Phone: Start: 04-11-2018 Colonoscopy Ruth Ann quiñonez PA-C Work Phone: Plan of Treatment Date Care Activity Detail Author Start: 10-23-2025 DTaP/Tdap/Td Vaccine s (2 - Tdap) DTaP/Tdap/Td Vaccines (2 - Tdap) [facility] Start: 10-23-2025 Urine microalbumin profile DTAP,TDAP ,TD (2 - Tdap) [facility] Start: 05-15-2025 DIABETES SCREEN DIABETES SCREEN [facility] Start: 08-08-2023 End: 08-08-2023 Patient encounter procedure 08/08/2023 9:10 AM EDT Office Visit [address] [place] [address] Nani Calloway MD [address] [place] [address] 2, [facility] [address] [place] [address] [facility] Start: 04-02-2023 End: 04-02-2023 Patient encounter procedure 04/02/2023 9:20 AM EST Office Visit [address] [place] [address] Nani Calloway MD [address] [facility] 2, [address] [place] [address] [facility] Start: 01-18-2023 [facility] Start: 01-18-2023 Hospital admission [facility] Start: 01-17-2023 [facility] Start: 11-02-2022 Influenza vaccination Influenza Vacc ine (#1) [facility] Start: 10-31-2022 Radionuclide myocard ial perfusion stress study NM ag perf SPECT rest & str [facility] Start: 10-31-2022 SPECT Heart perfusio n at rest and W stress and W radionuclide IV [facility] Start: 03-04-2022 ADVANCE DIRECTIVE DISCUSSION ADVANCE DIRECTIVE DISCUSSION [facility] Start: 03-04-2022 DEPRESSION ASSESSMENT DEPRESSION ASS ESSMENT [facility] Start: 02-26-2022 COVID-19 Vaccine (3 - Booster for Nicky series) COVID-19 Vaccine (3 - Booster for Nicky series) [facility] Start: 11-02-2021 Influenza vaccination INFLUENZA (#1) [facility] Start: 05-26-2021 COVID-19 VACCINE (3 - Booster for Nicky series) COVID-19 VACCINE (3 - Booster for Nicky series) [facility] Start: 03-28-2021 DIABETES SCREEN DIABETES SCREEN [facility] Start: 03-04-2021 ADVANCE DIRECTIVE DISCUSSION ADVANCE DIRECTIVE DISCUSSION [facility] Start: 03-04-2021 DEPRESSION ASSESSMENT DEPRESSION ASS ESSMENT [facility] Start: 04-11-2019 Colonoscopy COLONOSCOPY [facility] Start: 04-11-2019 COLORECTAL CANCER SCREENING COLORECTAL CANCER SCREENING [facility] Start: 03-12-2018 PNEUMOCOCCAL: 65+ (2 - PCV) PNEUMOCOCCAL: 65+ (2 - PCV) [facility] Start: 09-12-2012 BONE DENSITY BONE DENSITY [facility] Start: 09-12-1997 SHINGRIX VACCINE (1 of 2) GUSTAFSON GRIX VACCINE (1 of 2) [facility] Start: 09-12-1997 Zoster Vaccines (1 of 2) Zoste r Vaccines (1 of 2) [facility] Start: 09-12-1992 COLOGUARD (FIT-DNA) COLOGUARD (FIT-D NA) [facility] Start: 09-12-1992 Colonoscopy COLONOSCOPY [facility] Start: 09-12-1992 COLORECTAL CANCER SCREENING COLORECTAL CANCER SCREENING [facility] Start: 09-12-[address] COLONOGRAPHY [facility] Start: 09-12-1992 FECAL OCCULT BLOOD FECAL OCCULT BLOO D [facility] Start: 09-12-1992 LIPID SCREEN LIPID SCREEN [facility] Start: 09-12-1992 SIGMOIDOSCOPY SIGMOIDOSCOPY [facility] Start: 1987 Mammography MAMMOGRAM [facility] Start: 09-12-1965 Diabetes mellitus screening Diabetes Screening [facility] Start: 09-12-1965 HEPATITIS C SCREENING HEPATITIS C [facility] Start: 09-12-1965 Hepatitis C screening Hepatitis C [facility] Start: 1947 Creatinine measurement Creatinine Le twila [facility] Start: 1947 Echocardiography Echocardiogram [facility] Start: 1947 Lipid panel Lipid Panel [facility] Start: 1947 Medicare Annual Well ness Visit Medicare Annual Wellness Visit (AWV) [facility] Start: 1947 Potassium measurement Potassium Leve l [facility] Start: 1947 Screening for malign ant neoplasm of colon [facility] Start: 1947 Thyroid stimulating hormone measurement TSH Level [facility] End: 06-14-2023 WICHO SCREENING W BETINA WICHO SCREENING W BETINA Radiology Routine Malignant neoplasm of lower-inner quadrant of right breast of female, estrogen receptor positive (HCC) Breast screening Encounter for screening mammogram for malignant neoplasm of breast 1 Occurrences starting 05/15/2022 until 06/14/2023 [facility] Work Phone: Comment on above: 1 Occurrences starti ng 05/15/2022 until 06/14/2023 Patient Education Coronary Angio plasty (DC) Coronary Stenting (DC) Angina (DC) Chest Pain (DC) Drug Eluting Stents [facility] Work Phone: Patient referral [facility] Work Phone: [facility] Immunizations Immunization Date Immunization Notes Care Provider Cindy collado 02-19-2023 influenza, injectabl e, quadrivalent, preservative free Wan Mast Other [employer] Other 01-18-2022 Pneumococcal conjuga te vaccine, 20-valent (PREVNAR 20) Nani Calloway MD Work Phone: [facility] Work Phone: 01-01-2022 Flu vaccine, quadrivalent, high-dose, preservative free, age 65y+ (FLUZONE) Nani Calloway MD Work Phone: [facility] Work Phone: 01-01-2022 Moderna COVID-19 vaccine, bivalent, blue cap/riojas label *Check age/dose* Nani Calloway MD Work Phone: [facility] 01-01-2022 influenza virus vaccine, unspecified formulation Nani Calloway MD Work Phone: [facility] Work Phone: 03-31-2021 COVID-19 original vaccine, full dose, monovalent (MODERNA) Ruth Ann Marlin PA-C Work Phone: [facility] 12-15-2020 influenza, high dose seasonal, preservative-free Ruth Ann Marlin PA-C Work Phone: [facility] 05-07-2020 COVID-19 vaccine (NICKY) Ruth Ann Marlin PA-C Work Phone: [facility] 01-10-2020 influenza, high-dose , quadrivalent vaccine (FLUZONE HIGH DOSE QUADRIVALENT) Ruth Ann Marlin PA-C Work Phone: [facility] 03-01-2019 influenza, high dose seasonal, preservative-free Ruth Ann Marlin PA-C Work Phone: [facility] 03-18-2018 influenza virus vaccine, unspecified formulation Ruth Ann Marlin PA-C Work Phone: [facility] 03-17-2018 influenza, high dose seasonal, preservative-free Ruth Ann Marlin PA-C Work Phone: [facility] 03-12-2017 pneumococcal polysaccharide vaccine, 23 valent Ruth Ann Marlin PA-C Work Phone: [facility] 02-13-2017 influenza, high dose seasonal, preservative-free Ruth Ann Marlin PA-C Work Phone: [facility] 10-24-2015 diphtheria, tetanus toxoids and acellular pertussis vaccine Ruth Ann Marlin PA-C Work Phone: [facility] 10-24-2015 influenza, high dose seasonal, preservative-free Ruth Ann Gutierres PA-C Work Phone: [facility] Payers Date Payer Category Payer Self-pay [id number] 2022 Unknown AARP AARP [id number] 2022-Present [address] [place] [address] [id number] 2013 Private Health Insurance [facility] AARP SUPPLEMENT [id number] 2013-Present [phone] [address] [place] [address] Indemnity [id number] 2012 Medicare [id number] 1959 Medicare [id number] 1959 Unknown [id number] [id number] 1947 Unknown [id number] 2.16.840.1.560447.3.579.2 .593 1947 Unknown [id number] 2.16.840.1.979955.3.579.2 .593 1947 Unknown [id number] 2.16.840.1.708934.3.579.2 .593 1947 Unknown [id number] 2.16.840.1.522869.3.579.2 .593 1947 Unknown [id number] 2.16.840.1.131336.3.579.2 .593 1947 Unknown [id number] 2.16.840.1.703981.3.579.2 .356 1947 Unknown [id number] 2.16.840.1.702999.3.579.2 .1244 1945 Unknown [id number] 2.16.840.1.362666.3.579.2 .1244 1947 Unknown [id number] 2.16.840.1.396768.3.579.2 .1244 1947 Unknown [id number] 2.16.840.1.150185.3.579.2 .1259 Unknown [id number] 2.16.840.1.260729.3.579.2 .531 Unknown [id number] 2.16.840.1.147007.3.579.2 .531 Unknown [id number] 2.16.840.1.435158.3.579.2 .531 Unknown [id number] [id number] .531 Social History Date Type Detail Facility Unknown if ever smoked [employer] Other Start: 12-25-2022 End: 01-22-2023 Sex Assigned At [employer] Other Start: 06-29-2016 End: 01-17-2023 Tobacco smoking status NHIS Ex-smoker [facility] End: 06-30-1995 History of tobacco use Current smoker [facility] End: 06-30-1995 History of tobacco use Cigarette Smoker [facility] Start: 06-29-2016 End: 01-22-2023 Cigarettes smoked current (pack per day) - Reported 1 [facility] Start: 06-29-2016 End: 12-25-2022 Tobacco use and exposure Smokeless tobacco non-user [facility] Start: 05-16-2021 End: 05-15-2022 Alcohol intake Current non-drinker of alcohol (finding) [facility] Start: 1945 Sex Assigned At Not on file [facility] History of tobacco use Passive smoker [facility] Start: 1945 Sex Assigned At Female F [facility] Start: 12-25-2022 End: 01-22-2023 Alcohol intake Lifetime non-drinker (finding) [facility] Work Phone: Start: 12-15-2022 End: 01-22-2023 Exposure to SARS-CoV-2 (event) Not sure [facility] Medical Equipment Procedure Code Equipment Code Equipment Origin al Text Equipment Identifier Dates CL STENT ZEB FRONTIER 2.75 X 18 FDA Start: 01-17-2023 CL STENT ZEB FRONTIER 3.0 X 18 FDA Start: 01-17-2023 CL STENT ZEB FRONTIER 3.5 X 12 FDA Start: 01-17-2023 Femoral artery closure plug/patch, synthetic polymer ([id number] FDA Start: 01-17-2023 Functional Status Date Assessment Result Facility 01-18-2023 Functional status Patient at [facility] Work Phone: Mental Status Date Assessment Result Facility 01-18-2023 Cognitive function Cognitive Sta tus Patient at Baseline [facility] Work Phone: Clinical Notes 02-06-2021 to 02-19-2023 Note Date & Type Note Facility 02-19-2023 Evaluation note Encounter Date Diagnosis Assessment Notes Feb, Flu vaccine need (ICD-10 - Z23) Flu vaccine provided Feb, Encounter to establish care with new doctor (ICD-10 - Z76.89) No medication changes are made today. Old records will be reviewed. I asked her to return in 2 months after I had a chance to review the record and we will identify if there are any care gaps that need addressed. 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 (ICD-10 - I25.10) Continue to follow with cardiology as she is doing, keep working at cardiac rehab and efforts at weight loss Feb, Generalized osteoarthritis (ICD-10 - M15.9) She is already plugged in with orthopedics for this, it sounds as though she may require joint replacement surgery at some point in the future Feb, Chronic kidney disease, stage 3 unspecified (ICD-10 - N18.30) Continue to follow with nephrology as she is doing, continue to avoid NSAIDs [employer] Other 11-22-2023 Evaluation + Plan note* Assessment & Plan Note - CHINYERE Michel - 01/23/2023 12:48 PM ESTAssociated Problem(s): BMI 40.0-44.9, adult (CMS/HCC) Reviewed the merits of healthy lifestyle choices on overall cardiovascular health. [facility] Work Phone: 1(915) 295-174911-22-2023 Evaluation + Plan note* Assessment & Plan Note - CHINYERE Michel - 01/23/2023 12:48 PM ESTAssociated Problem(s): Coronary artery disease involving big sandy coronary artery of big sandy heart with out angina pectoris Jan 17, 2023 cardiac cath (no ACS admit, outpt symptoms) Mid/distal CX PCI/Zeb 2.75/18mm complicated with o/p CX dissection IVUS guided oCX PCI/[place] 3.5/12mm mLAD PCI/Zbe 3/18mm [facility] Work Phone: 1(381) 473-535411-22-2023 Miscellaneous Notes* Assessment & Plan Note - CHINYERE Michel - 01/23/2023 12:48 PM ESTAssociated Problem(s): BMI 40.0-44.9, adult (CMS/HCC) Reviewed the merits of healthy lifestyle choices on overall cardiovascular health. * Assessment & Plan Note - CHINYERE Michel - 01/23/2023 12:48 PM EST Associated Problem(s): Coronary artery disease involving big sandy coronary artery of big sandy heart without angina pectoris Jan 17, 2023 cardiac cath (no ACS admit, outpt symptoms) Mid/distal CX PCI/Zeb 2.75/18mm complicated with o/p CX dissection IVUS guided oCX PCI/[place] 3.5/12mm mLAD PCI/[place] 3/18mm * Assessment & Plan Note - CHINYERE Michel - 01/23/2023 12:45 PM EST Associated Problem(s): Angina pectoris (CMS/HCC) Resolved with recent coronary intervention * Assessment & Plan Note - CHINYERE Michel - 01/23/2023 12:45 PM EST Associated Problem(s): Essential hypertension, benign Optimal in office * Assessment & Plan Note - CHINYERE Michel - 01/23/2023 12:45 PM EST Associated Problem(s): Hyperlipidemia High intensity statin documented [facility] Work Phone: [phone] 173-800311-22-2023 Evaluation + Plan note* Assessment & Plan Note - CHINYERE Michel - 01/23/2023 12:45 PM ESTAssociated Problem(s): Angina pectoris (CMS/HCC) Resolved with recent coronary intervention [facility] Work Phone: [phone]) 191-302311-22-2023 Evaluation + Plan note* Assessment & Plan Note - CHINYERE Michel - 01/23/2023 12:45 PM ESTAssociated Problem(s): Essential hypertension, benign Optimal in office [facility] Work Phone: 1(306) 443-514711-22-2023 Evaluation + Plan note* Assessment & Plan Note - CHINYERE Michel - 01/23/2023 12:45 PM ESTAssociated Problem(s): Hyperlipidemia High intensity statin [facility] Work Phone: 1(807) 898-139511-21-2023 History of Present illness Narrative* CHINYERE Michel - 01/22/2023 10:30 AM EST Chief Complaint I am feeling a little better Reason for Visit Patient presents to the office today for outpatient follow-up for cardiovascular procedure. Last evaluated in clinic by Dr. Calloway December 2022 January 17, 2023 elective cardiac catheterization with subsequent coronary intervention. She was kept overnight postprocedure due to right infrarenal inguinal hematoma, CT of the abdomen unremarkable and hemoglobin remained stable. At time of discharge she was initiated on aspirin and Brilinta. Presents today ambulatory with steady gait. History of Present Illness Patient is an extremely pleasant 77-year-old female who was initially seen in cardiology consultation by Dr. Calloway on an outpatient basis December 25, 2022. She had reported a probable 5-month history of exertional breathlessness and left-sided chest pain. She reports a significant change in exercise capacity and functional tolerance with increased fatigability. She did have in October 2022 perfusion study showing artifact with a TID ratio 1.67. EF 64%. She presents today where she reports breathlessness is a little bit better , denies any recurrenceof left-sided chest discomfort. Her right groin cath site without felt tenderness, resolving ecchymosis. She continues with very mild dyspnea, question related to Brilinta but it seems to be slowly decreasing. She was instructed to contact the office in 2 weeks if symptoms have not abated as we mayneed to transition over to Plavix. New medication: Brilinta: Unclear if current dyspnea is related but will continue to observe, otherwise has insurance coverage. 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 She agrees to begin cardiac rehab. Discussed the importance of secondary prevention. She has been educated that she should notify the office of any recurrent symptoms. Over the course of the next 6 weeks she should notice improvement in overall functional capacity. Patient reports that overall has no complaint(s) of chest pain, chest pressure/discomfort, exertional chest pressure/discomfort, irregular heart beat, near-syncope, orthopnea, and palpitations The importance of secondary prevention reviewed: HTN: Optimal in office HLD: Treated DM: Denies Smoker: Denies BMI: Reviewed the merits of healthy lifestyle choices on overall cardiovascular health. Discussed the dynamic nature of coronary artery disease and the importance of seeking medical attention if new symptoms arise. Review of Systems Cardiovascular: Negative for chest pain, dyspnea on exertion, irregular heartbeat, leg swelling, near-syncope, orthopnea, palpitations, paroxysmal nocturnal dyspnea and syncope. Visit Vitals BP 120/80 (BP Location: Left arm, Patient Position: Sitting) Pulse 76 Ht 1.549 m (5' 1 ) Wt 103 kg (227 lb) BMI 42.89 kg/m Smoking Status Former BSA 2.11 m Physical Exam Vitals and nursing note reviewed. HENT: Head: Normocephalic. Cardiovascular: Rate and Rhythm: Normal rate and regular rhythm. Heart sounds: Normal heart sounds. Pulmonary: Effort: Pulmonary effort is normal. Breath sounds: Normal breath sounds. Abdominal: Palpations: Abdomen is soft. Musculoskeletal: Right lower leg: No edema. Left lower leg: No edema. Skin: General: Skin is warm and dry. Neurological: General: No focal deficit present. Mental Status: She is alert. Psychiatric: Mood and Affect: Mood normal. Behavior: Behavior normal. Allergies Allergen Reactions Ibuprofen Other Lyrica [Pregabalin] Confusion Sulfa (Sulfonamide Antibiotics) GI Upset Current Outpatient Medications Medication Instructions alendronate (FOSAMAX) 70 mg, oral, Every 7 days, Take in the morning with a full glass of water, viridiana empty stomach, and do not take anything else by mouth or lie down for the next 30 min. amoxicillin (AMOXIL) 2,000 mg, oral, As needed aspirin 81 mg, oral, Daily benzonatate (TESSALON) 100 mg, oral, 3 times daily PRN, Do not crush or chew. carvedilol (COREG) 6.25 mg, oral, 2 times daily with meals cetirizine-pseudoephedrine (ZyrTEC-D) 5-120 mg 12 hr tablet 1 tablet, oral, 2 times daily cholecalciferol, vitamin D3, (VITAMIN D3 ORAL) 500 Units, oral, Daily DULoxetine (CYMBALTA) 60 mg, oral, Daily, Do not crush or chew. folic acid (FOLVITE) 1 mg, oral, Daily letrozole (FEMARA) 2.5 mg, oral, Daily, Take with or without food. levothyroxine (Tirosint) 112 mcg capsule oral, Daily before breakfast montelukast (SINGULAIR) 10 mg, oral, Nightly nitroglycerin (NITROSTAT) 0.4 mg, sublingual, Every 5 min PRN omega-3 acid ethyl esters (LOVAZA) 1 g, oral, Daily ramipril (ALTACE) 10 mg, oral, Daily rosuvastatin (CRESTOR) 20 mg, oral, Daily ticagrelor (BRILINTA) 90 mg, oral, 2 times daily traMADol (ULTRAM) 50 mg, oral, Every 6 hours PRN Assessment: Hyperlipidemia High intensity statin Essential hypertension, benign Optimal in office Angina pectoris (CMS/HCC) Resolved with recent coronary intervention Coronary artery disease involving big sandy coronary artery of big sandy heart without angina pectoris Jan 17, 2023 cardiac cath (no ACS admit, outpt symptoms) Mid/distal CX PCI/[place] 2.75/18mm complicated with o/p CX dissection IVUS guided oCX PCI/Zeb 3.5/12mm mLAD PCI/Zeb 3/18mm BMI 40.0-44.9, adult (CMS/HCC) Reviewed the merits of healthy lifestyle choices on overall cardiovascular health. Plan: Current treatment plan is effective, no change in therapy. Reviewed diet, exercise and weight control. Recommended sodium restriction. Use and side effects of nitroglycerine reviewed, call 911 if chest pain unrelieved by 3 tablets. Through informed decision making process incorporating patients unique circumstances, the followingtreatment plan will be initiated: 1. Prescription drug management of cardiovascular medication for efficacy, adherence to treatment, side effect assessment and polypharmacy. Current treatment clinically warranted and to continue without modifications. 2. If the shortness of breath does not resolve over next 2 weeks please call and we can change Brilinta 3. Referral to Cardiac Rehab at [facility] 4. Return for follow-up; in the interim, contact the office if new symptoms arise. Dr. Calloway 6 months Jacqueline Campos MSN, CORK INSULATOR-CREDIT CLERK, PMHNP-[facility] Please excuse any errors in grammar or translation related to this dictation. Voice recognition software was utilized to prepare this document. documented in [facility] Work Phone: 1(387) 282-159811-21-2023 Instructions* Patient Instructions* CHINYERE Michel - 01/22/2023 10:30 AM EST Please bring all medicines, vitamins, and herbal supplements with you when you come to the office. Prescriptions will not be filled unless you are compliant with your follow up appointments or have a follow up appointment scheduled as per instruction of your physician. Refills should be requested at the time of your visit. PLAN: Through informed decision making process incorporating patients unique circumstances, the followingtreatment plan will be initiated: 1. Prescription drug management of cardiovascular medication for efficacy, adherence to treatment, side effect assessment and polypharmacy. Current treatment clinically warranted and to continue without modifications. 2. If the shortness of breath does not resolve over next 2 weeks please call and we can change Brilinta 3. Referral to Cardiac Rehab at [facility] 4. Return for follow-up; in the interim, contact the office if new symptoms arise. Dr. Calloway 6 months [facility] Work Phone: 1(428) 236-640611-16-2023 Consult note Author Tamiko Zhou [facility] January 17, 2023 5:50pm Note Date/Time January 17, 2023 5:51pm [facility] [address] [place] [address] Cardiology Consult Note Signed Patient: Katarina Camara MR#: [id number] : 1945 Acct:[id number] Age/Sex: 77 / F Adm Date: 3 Loc: Room: [address] [place] [address] Type: [facility] Attending Dr: Nani Calloway MD Copies to: Nani Calloway MD, [facility] MD Tamiko Torre DO~ Cardiology HPI History of Present Illness Consult Date: 01/17/23 Reason for Consult: Unstable angina, two-vessel ASHD HPI: Ms. Camara is a 77 year old female seen in interventional cardiology consultation at the request Dr. 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 The remainder of her imaging, history are elucidated in the outpatient EMR that is been reviewed Angiograms are reviewed with Dr. Faulkner this afternoon, revealing subtotal occlusion of the aneurysmal, distal circumflex and 95% stenosis of the mid LAD with poststenotic dilation. Both these lesions are consistent with high risk anatomy especially given the amount of myocardium at risk. Plan at this time isproceed with two-vessel revascularization and possibly admit afterwards if necessary Review of Systems Review of Systems All other systems reviewed & are negative unless noted below or in HPI Constitutional Constitutional: Reports as per HPI [facility] Medical History (Updated 01/17/23 @ 17:50 by Tamiko Zhou DO) Asthma Breast cancer CHF (congestive heart failure) Chronic bronchitis COPD (chronic obstructive pulmonary disease) DDD (degenerative disc disease) Diabetes mellitus, type 2 Emphysema lung Fibromyalgia Ganglion cyst left wrist removed and came back History of cluster headache Hyperlipidemia Hypertension Hypothyroidism Irritable bowel disease Kidney failure stage 3 Kidney stones Migraine history of Osteoarthritis Osteopenia Osteoporosis Ovarian cyst Surgical History History of appendectomy History of cholecystectomy History of dilatation and curettage History of hysterectomy History of lithotripsy History of phacoemulsification of cataract of both eyes with intraocular lens implantation Family History Sister Brain aneurysm Brother Brain aneurysm Brother Brain tumor (benign) Brother Bladder cancer S/P CABG x 1 Sister Colon cancer Sister Retinal micro-aneurysm of right eye Social History Smoking Status: Former smoker Tobacco Type: cigarettes Substance Use Type: None Meds Medications and Allergies Allergies pregabalin [From Lyrica] Adverse Reaction (Verified 01/15/23 12:17) Confusion Home Medications acetaminophen 500 mg tablet (Tylenol Extra Strength) 500 mg PO DAILY PRN Pain 01/15/23 [History Confirmed 01/17/23] alendronate 70 mg tablet 70 mg PO QWEEK 01/15/23 [History Confirmed 01/17/23] aspirin 325 mg tablet (Елена Aspirin) 325 mg PO QAM 01/15/23 [History Confirmed 01/17/23] carvedilol 6.25 mg tablet 6.125 mg PO BID 01/15/23 [History Confirmed 01/17/23] cetirizine 10 mg tablet (Zyrtec) 10 mg PO DAILY PRN allergies 01/15/23 [History Confirmed 01/17/23] cholecalciferol (vitamin D3) 125 mcg (5,000 unit) tablet (Vitamin D3) 125 mcg POQNOON 01/15/23 [History Confirmed 01/17/23] duloxetine 60 mg capsule,delayed release (Cymbalta) 60 mg PO QHS 01/15/23 [History Confirmed 01/17/23] folic acid 1 mg tablet 1 mg PO QAM 01/15/23 [History Confirmed 01/17/23] letrozole 2.5 mg tablet 2.5 mg PO QAM 01/15/23 [History Confirmed 01/17/23] levothyroxine 112 mcg tablet 112 mcg PO QAM 01/15/23 [History Confirmed 01/17/23] montelukast 10 mg tablet 10 mg PO QHS 01/15/23 [History Confirmed 01/17/23] omega-3 fatty acids 1,000 mg PO BID 01/15/23 [History Confirmed 01/17/23] ramipril 10 mg capsule 10 mg PO QNOON 01/15/23 [History Confirmed 01/17/23] rosuvastatin 20 mg tablet 20 mg PO QHS 01/15/23 [History Confirmed 01/17/23] tramadol 50 mg tablet 50 mg PO QID 01/15/23 [History Confirmed 01/17/23] Exam Physical Exam Vital Signs: Temp Pulse Resp BP Pulse Ox O2 Del Method 97.8 F 77 20 156/84 H 96 Room Air 01/17/23 17:42 01/17/23 17:42 01/17/23 17:42 01/17/23 17:42 01/17/23 17:42 01/17/23 17:42 Const General: cooperative, comfortable, no acute distress, well developed and well groomed Nutritional Appearance: overweight Orientation: alert, awake and oriented x3 HEENT Head: normal to inspection Neck Neck: normal visual inspection Chest Chest palpation & inspection: normal inspection of the chest Resp Effort & Inspection: normal respiratory effort Auscultation: clear to auscultation bilaterally Cardio Palpation: normal PMI Rate: regular rate Rhythm: regular rhythm Heart Sounds: S1 normal, S2 normal and no murmurs Pulses: radial pulses present and femoral pulses present GI Inspection: obesity Palpation: soft Skin General: no rashes or lesions noted Neuro General: patient alert, patient awake and patient oriented x3 Cognition: normal cognition Speech: speech normal Extrem General: no clubbing, cyanosis or edema Results Labs Lab results: Intake and Output 01/17/23 01/17/23 01/17/23 07:59 15:59 23:59 Other: Weight 103 kg Patient Weight 01/17/23 23:59 Weight 103 kg EKG Interpretations EKG EKG results cardiology: WNL and sinus rhythm A&P - Cardiology (1) ASHD (arteriosclerotic heart disease): Code(s): I25.10 - Atherosclerotic heart disease of big sandy coronary artery without angina pectoris (2) Hyperlipidemia: Code(s): E78.5 - Hyperlipidemia, unspecified (3) Hypertension: Code(s): I10 - Essential (primary) hypertension (4) Angina pectoris: Code(s): I20.9 - Angina pectoris, unspecified Documented By: Tamiko Zhou DO 01/17/231745 Signed By: <Electronically signed by Tamiko Zhou DO> 01/17/231749 [facility] Work Phone: 1(201) 437-322011-16-2023 Procedure [facility]11-16-2023 Procedure [facility]10-24-2023 History of Present illness Narrative* Nani Calloway MD - 12/25/2022 9:50 AM EDT Subjective Katarina Camara is a 77 y.o. female Chief Complaint Establish Care Chest pain/abnormal nuclear stress test HPI 77-year-old white female with no previous cardiac history who has history of hypertension, hyperlipidemia with no diabetes but with remote history of tobacco abuse who was admitted to [facility] in October 2022 with an episode of substernal chest pain felt as tightness radiating to the neck and to the arm. She was released from the emergency department after having negative work-up subsequently had nuclear stress test which demonstrated what suggests apical attenuation artifact. The patient will continue to have symptoms of exertional chest pain along with left arm pain and dyspnea on exertion. She was advised to follow-up with cardiology for further assessment. She has no family history of premature CAD. She quit smoking in 1990. She has no syncope or vascular disease and no history of cardiac arrhythmias. She has no history of gallbladder disease, peptic ulcer disease or colon disease. She has been compliant medical therapy. Other review of system essentially unremarkable and her physical examination was remarkable for morbid obesity. ECG demonstrated sinus rhythm with diffuse ST and T changes. Assessment/recommendations: 1-symptoms of chest pain suggestive of angina pectoris with multiple risk factor for CAD, abnormal EKG and abnormal nuclear stress test. Patient was advised to proceed with invasive cardiac work-up with cardiac catheterization. She will be kept on aspirin, beta-blockers and high intensity statin. Following cardiac catheterization further recommendations to follow. Lifestyle medication and living healthy from cardiovascular standpoint was strongly recommended 2-hypertension, currently on ramipril and carvedilol under control 3-hyperlipidemia on high intensity statin with rosuvastatin 20 mg daily. Hypothyroidism on replacement therapy managed by PCP 4-morbid obesity, lifestyle changes to lose weight would recommended. Review of Systems Cardiovascular: Positive for chest pain and dyspnea on exertion. Respiratory: Positive for shortness of breath. Skin: Positive for flushing. All other systems reviewed and are negative. Visit Vitals BP 132/88 (BP Location: Left arm, Patient Position: Sitting) Pulse 77 Ht 1.549 m (5' 1 ) Wt 101 kg (223 lb) BMI 42.14 kg/m Smoking Status Former BSA 2.08 m EKG done in office today demonstrated sinus rhythm with nonspecific ST and T changes Objective Physical Exam Constitutional: Appearance: Normal appearance. She is normal weight. HENT: Nose: Nose normal. Neck: Vascular: No carotid bruit. Cardiovascular: Rate and Rhythm: Normal rate. Pulses: Normal pulses. Heart sounds: Normal heart sounds. Pulmonary: Effort: Pulmonary effort is normal. Abdominal: General: Bowel sounds are normal. Palpations: Abdomen is soft. Genitourinary: Rectum: Normal. Musculoskeletal: General: Normal range of motion. Cervical back: Normal range of motion. Right lower leg: No edema. Left lower leg: No edema. Skin: General: Skin is warm and dry. Neurological: General: No focal deficit present. Mental Status: She is alert. Psychiatric: Mood and Affect: Mood normal. Behavior: Behavior normal. Thought Content: Thought content normal. Judgment: Judgment normal. Current Medications Current Outpatient Medications: amoxicillin (Amoxil) 500 mg capsule, Take 4 capsules (2,000 mg) by mouth if needed (before dental)., Disp: , Rfl: aspirin 325 mg tablet, Take 1 tablet (325 mg) by mouth once daily., Disp: , Rfl: carvedilol (Coreg) 6.25 mg tablet, Take 1 tablet (6.25 mg) by mouth 2 times a day with meals., Disp: , Rfl: cetirizine-pseudoephedrine (ZyrTEC-D) 5-120 mg 12 hr tablet, Take 1 tablet by mouth 2 times a day.,Disp: , Rfl: cholecalciferol, vitamin D3, (VITAMIN D3 ORAL), Take 500 Units by mouth once daily., Disp: , Rfl: DULoxetine (Cymbalta) [address] capsule, Take 1 capsule (60 mg) by mouth once daily. Do not crush orchew., Disp: , Rfl: folic acid (Folvite) 1 mg tablet, Take 1 tablet (1 mg) by mouth once daily., Disp: , Rfl: letrozole (Femara) 2.5 mg tablet, Take 1 tablet (2.5 mg total) by mouth once daily. Take with or without food., Disp: , Rfl: levothyroxine (Tirosint) 25 mcg capsule, Take 1 capsule (25 mcg) by mouth once daily in the morning. Take before meals., Disp: , Rfl: montelukast (Singulair) 10 mg tablet, Take 1 tablet (10 mg) by mouth once daily at bedtime., Disp: , Rfl: omega-3 acid ethyl esters (Lovaza) 1 gram capsule, Take 1 capsule (1 g) by mouth once daily., Disp:, Rfl: ramipril (Altace) 10 mg capsule, Take 1 capsule (10 mg) by mouth once daily., Disp: , Rfl: rosuvastatin (Crestor) 20 mg tablet, Take 1 tablet (20 mg) by mouth once daily., Disp: , Rfl: saccharomyces boulardii (Florastor) 250 mg capsule, Take 1 capsule (250 mg) by mouth once daily., Disp: , Rfl: traMADol (Ultram) 50 mg tablet, Take 1 tablet (50 mg) by mouth every 6 hours if needed for severe pain (7 - 10)., Disp: , Rfl: Assessment/Plan 1. Abnormal stress test 2. Angina pectoris (CMS/HCC) 3. Abnormal EKG 4. Hyperlipidemia, unspecified hyperlipidemia type 5. Essential hypertension, benign [facility] Work Phone: [phone]) 692-790910-24-2023 Instructions* Patient Instructions* Deborah Lee LPN - 12/25/2022 9:50 AM EDT Please bring all medicines, vitamins, and herbal supplements with you when you come to the office. Prescriptions will not be filled unless you are compliant with your follow up appointments or have a follow up appointment scheduled as per instruction of your physician. Refills should be requested at the time of your visit. [facility] Work Phone: [phone]) 234-853410-09-2023 Evaluation note* Encounter Date Diagnosis Assessment Notes Treatment Notes Treatment Clinical Notes Dec, Chronic kidney disea se, stage 3 unspecified (ICD-10 - N18.30) She has CKD due to longstanding hypertension. Her b/l serum creatinine is 1.0-1.2 mg/dL. She has bilateral renal cyst on CAT scan. I discussed with the importance of good HTN control to slow down the progression of CKD. I have advised her to avoid NSAIDs or any other nephrotoxic medication. 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 Dec, Nephrolithiasis (ICD -10 - N20.0) She denies any recent passage of the kidney stones. Continue to follow with urology. 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 She appears to be euvolemic. Continue current medications. Dec, Secondary hyperparathyroidism (ICD-10 - N25.81) MBD parameters are within the goal Dec, Microscopic hematuri a (ICD-10 - R31.29) She has microscopic hematuria likely due to Nephrolithiasis [facility] Other 03-30-2023 Evaluation note* Encounter Date Diagnosis Assessment Notes Treatment Notes Treatment Clinical Notes May, Contact with and (suspected) exposure to other viral communicable diseases (ICD-10 - Z20.828) May, COPD exacerbation (ICD-10 - J44.1) Advised patient that rapid COVID/Influenza A/B test was negative today in office. Discussed diagnosis with patient in detail. Will send in rx of prednisone and albuterol inhaler to use as directed. May use rx of Tessalon Perles as needed for cough. Encouraged supportive care as directed, push fluids and rest, may use Tylenol as needed for fever/discomfort, cool mist humidifier. Patient to follow up with PCP in 2-3 days, advised that COPD needs to be managed by PCP. Immediate eval if SOB, difficulty breathing, chest pain, dizziness, or other concerning symptoms. Patient verbalizes understanding and is agreeable to treatment plan [facility] Other 03-14-2023 NoteHNO ID: [id number] Author: Ruth Ann Gutierres PA-C Service: ? Author Type: Physician Timing Inspector Type: Progress Notes Filed: 05/15/2022 4:24 PM Note Text: (Elements copied from Dr. Turner's note dated May 16, 2021, have been reviewed and updated where appropriate, and all reflect current assessment and medical decision making during today's encounter, May 15, 2022) CHIEF COMPLAINT: right lower inner breast cancer HISTORY OF PRESENT ILLNESS: Katarina Camara is a 76 year old woman who presents for follow up of above. 01/2016 : Had report of symptoms from 01/2016 with discomfort of the right breast at the 3:00 position. : 01/27/16 screening mammogram with 2cm asymmetry within the posterior lower-inner quadrant. 02/14/16 : imaging with diagnostic mammogram notes 1.7 x 1.0 cm heterogeneous mass at the 3:00 position. Biopsy recommended and completed : biopsy completed 02/2016 noted invasive ductal carcinoma ER/AR positive, HER2 negative. : Lumpectomy completed 03/21/16 noted grade 2 invasive ductal carcinoma, DCIS grade 2, 14 mm : Margins negative (discussed with the pathologist who assured negative margins but that the anterior margin was within 1.0mm anteriorly). : [place] lymph node was positive for involvement. 06/25/16 : completes four cycles of TC, discussed alternative regimens including AC followed by taxol- patient deferred 09/2016 : completes adjuvant radiation : starts arimidex 10/2016 : starts letrozole and remains on therapy 07/2017 : letrozole on brief hold due to increasing symptoms but resumed 11/2017 : completes left hip replacement December 2018: Bone density with osteopenia, lowest T score of -1.4. Mar 2021: Mammogram bilateral- Negative March 2022: Mammogram bilateral -negative Returns today for follow up. Feeling well overall. Remains on femara without any complaints. Her PCP did start her on fosamax in 2021 due to her dexa scan showing osteopenia. She is feeling well and is planning on doing day care in her home. PAST MEDICAL HISTORY Diagnosis Date CHF (congestive heart failure) (HCC) Diabetes mellitus (HCC) Fibromyalgia Hypertension Hypothyroidism Invasive ductal carcinoma of right breast (HCC) ER/AR+ HER2- PAST SURGICAL HISTORY Procedure Laterality Date APPENDECTOMY BREAST BIOPSY CHOLECYSTECTOMY HX HYSTERECTOMY HX PAST SURGICAL HISTORY OF Left cyst removed from ovary TOTAL HIP REPLACEMENT Right Review of Social History includes: Social History Tobacco Use Smoking status: Former Packs/day: 1.00 Years: 15.00 Pack years: 15.00 Types: Cigarettes Quit date: 06/30/1995 Years since quittin.8 Smokeless tobacco: Never Vaping Use Vaping Use: Never used Substance Use Topics Alcohol use: No Drug use: No FAMILY HISTORY Problem Relation Age of Onset other (Bladder Cancer) Brother Current Outpatient Medications Medication Sig alendronate (FOSAMAX) 70 mg tablet Take 70 mg by mouth one time a week. cholecalciferol, vitamin D3, (VITAMIN D3 ORAL) Refills(s) 0 rosuvastatin (CRESTOR) 20 mg tablet Take 20 mg by mouth once daily. For 30 days furosemide (LASIX) 20 mg tablet POTASSIUM ORAL Take by mouth. MAGNESIUM ORAL Take by mouth. BACLOFEN ORAL Take by mouth. oxaprozin (DAYPRO) 600 mg tablet Take 600 mg by mouth twice daily. carvedilol (COREG) 6.25 mg tablet Take 6.25 mg by mouth twice daily. VENTOLIN HFA 90 mcg/actuation inhaler INHALE 2 PUFFS BY MOUTH EVERY 6 HOURS NEEDED levothyroxine (SYNTHROID) 112 mcg tablet Take 112 mcg by mouth once daily. cyclobenzaprine (FLEXERIL) 10 mg tablet Take 10 mg by mouth as needed. traMADol (ULTRAM) 50 mg tablet Take 50 mg by mouth as needed. montelukast (SINGULAIR) 10 mg tablet Take 10 mg by mouth daily at bedtime. ASCORBIC ACID/MULTIVIT-MIN (EMERGEN-C ORAL) Take by mouth. amitriptyline (ELAVIL) 10 mg tablet Take 10 mg by mouth. ramipril (ALTACE) 10 mg capsule Take 10 mg by mouth once daily. aspirin 325 mg cap Take 325 mg by mouth once daily. DULoxetine (CYMBALTA) 60 mg capsule Take 60 mg by mouth once daily. folic acid 1 mg tablet Take 1 mg by mouth once daily. letrozole (FEMARA) 2.5 mg tablet Take 1 tablet by mouth once daily. No current facility-administered medications for this visit. REVIEW OF SYSTEMS: CONSTITUTIONAL: No recent fevers or chills MUSC-SKEL: Left hip feels less painful PSY: Denies depression or anxiety Cardiovascular: No current chest pain or palpitations Pulmonary: No shortness of breath, no cough no hemoptysis Lymph no new lumps or bumps Breast: Denies changes on self breast examination HEENT: No oral sores or thrush GI: bowel changes, alternating between diarrhea and constipation Psych no mood swings, normal mood and affect PHYSICAL EXAMINATION: BP 158/97 Pulse 87 Temp 36.4 ?C (97.5 ?F) (Temporal) Resp 18 Ht 155 cm (5' 1.02 ) Wt 101 kg (222 lb 9.6 oz) SpO2 95% BMI 42.03 kg/m? General: (more content not included)...[facility]03-14-2023 Nurse Note* Audrey Novoa MA - 05/15/2022 3:07 PM EDT Patient states her upper right breast feels tubular and intermittent pain upper right breast could it be hormonal. She also states that night sweats do come intermittent. Audrey Novoa MA documented [facility]03-[facility] History of Present illness Narrative* uRth Ann Gutierres PA-C - 05/15/2022 3:00 PM EDT Images from the original note were not included. (Elements copied from Dr. Turner's note dated May 16, 2021, have been reviewed and updated where appropriate, and all reflect current assessment and medical decision making during today's encounter, May 15, 2022) CHIEF COMPLAINT: right lower inner breast cancer HISTORY OF PRESENT ILLNESS: Katarina Camara is a 76 year old woman who presents for follow up of above. 01/2016 : Had report of symptoms from 01/2016 with discomfort of the right breast at the 3:00 position. : 01/27/16 screening mammogram with 2cm asymmetry within the posterior lower- inner quadrant. 02/14/16 : imaging with diagnostic mammogram notes 1.7 x 1.0 cm heterogeneous mass at the 3:00 position. Biopsy recommended and completed : biopsy completed 02/2016 noted invasive ductal carcinoma ER/AR positive, HER2 negative. : Lumpectomy completed 03/21/16 noted grade 2 invasive ductal carcinoma, DCIS grade 2, 14 mm : Margins negative (discussed with the pathologist who assured negative margins but that the anterior margin was within 1.0mm anteriorly). : [place] lymph node was positive for involvement. 06/25/16 : completes four cycles of TC, discussed alternative regimens including AC followed by taxol- patient deferred 09/2016 : completes adjuvant radiation : starts arimidex 10/2016 : starts letrozole and remains on therapy 07/2017 : letrozole on brief hold due to increasing symptoms but resumed 11/2017 : completes left hip replacement December 2018: Bone density with osteopenia, lowest T score of -1.4. Mar 2021: Mammogram bilateral- Negative March 2022: Mammogram bilateral -negative Returns today for follow up. Feeling well overall. Remains on femara without any complaints. Her PCP did start her on fosamax in 2021 due to her dexa scan showing osteopenia. She is feeling well and is planning on doing day care in her home. PAST MEDICAL HISTORY Diagnosis Date CHF (congestive heart failure) (HCC) Diabetes mellitus (HCC) Fibromyalgia Hypertension Hypothyroidism Invasive ductal carcinoma of right breast (HCC) ER/AR+ HER2- PAST SURGICAL HISTORY Procedure Laterality Date APPENDECTOMY BREAST BIOPSY CHOLECYSTECTOMY HX HYSTERECTOMY HX PAST SURGICAL HISTORY OF Left cyst removed from ovary TOTAL HIP REPLACEMENT Right Review of Social History includes: Social History Tobacco Use Smoking status: Former Packs/day: 1.00 Years: 15.00 Pack years: 15.00 Types: Cigarettes Quit date: 06/30/1995 Years since quittin.8 Smokeless tobacco: Never Vaping Use Vaping Use: Never used Substance Use Topics Alcohol use: No Drug use: No FAMILY HISTORY Problem Relation Age of Onset other (Bladder Cancer) Brother Current Outpatient Medications Medication Sig alendronate (FOSAMAX) 70 mg tablet Take 70 mg by mouth one time a week. cholecalciferol, vitamin D3, (VITAMIN D3 ORAL) Refills(s) 0 rosuvastatin (CRESTOR) 20 mg tablet Take 20 mg by mouth once daily. For 30 days furosemide (LASIX) 20 mg tablet POTASSIUM ORAL Take by mouth. MAGNESIUM ORAL Take by mouth. BACLOFEN ORAL Take by mouth. oxaprozin (DAYPRO) 600 mg tablet Take 600 mg by mouth twice daily. carvedilol (COREG) 6.25 mg tablet Take 6.25 mg by mouth twice daily. VENTOLIN HFA 90 mcg/actuation inhaler INHALE 2 PUFFS BY MOUTH EVERY 6 HOURS NEEDED levothyroxine (SYNTHROID) 112 mcg tablet Take 112 mcg by mouth once daily. cyclobenzaprine (FLEXERIL) 10 mg tablet Take 10 mg by mouth as needed. traMADol (ULTRAM) 50 mg tablet Take 50 mg by mouth as needed. montelukast (SINGULAIR) 10 mg tablet Take 10 mg by mouth daily at bedtime. ASCORBIC ACID/MULTIVIT-MIN (EMERGEN-C ORAL) Take by mouth. amitriptyline (ELAVIL) 10 mg tablet Take 10 mg by mouth. ramipril (ALTACE) 10 mg capsule Take 10 mg by mouth once daily. aspirin 325 mg cap Take 325 mg by mouth once daily. DULoxetine (CYMBALTA) 60 mg capsule Take 60 mg by mouth once daily. folic acid 1 mg tablet Take 1 mg by mouth once daily. letrozole (FEMARA) 2.5 mg tablet Take 1 tablet by mouth once daily. No current facility-administered medications for this visit. REVIEW OF SYSTEMS: CONSTITUTIONAL: No recent fevers or chills MUSC-SKEL: Left hip feels less painful PSY: Denies depression or anxiety Cardiovascular: No current chest pain or palpitations Pulmonary: No shortness of breath, no cough no hemoptysis Lymph no new lumps or bumps Breast: Denies changes on self breast examination HEENT: No oral sores or thrush GI: bowel changes, alternating between diarrhea and constipation Psych no mood swings, normal mood and affect PHYSICAL EXAMINATION: BP 158/97 Pulse 87 Temp 36.4 C (97.5 F) (Temporal) Resp 18 Ht 155 cm (5' 1.02 ) Wt 101 kg(222 lb 9.6 oz) SpO2 95% BMI 42.03 kg/m General: Alert and oriented, no distress, pleasant and cooperative. Heart: Regular, normal S1 and S2, no murmurs, rubs, or gallops Lungs: Clear to auscultation bilaterally Abdomen: Benign Extremities: Feet/ankles without edema, posterior tibial pulses full and symmetrical Breast: left breast without masses or skin lesions. Rght breast with tenderness over lower inner quadrant scar. No masses or skin lesions. No bilateral axillary nodes. IMAGING Mammogram PATHOLOGY BIOPSY: 02/2016 ASSESSMENT/PLAN: 1. Malignant neoplasm of lower-inner quadrant of right breast of female, estrogen receptor positive(HCC) - ICD9: 174.3, V86.0, ICD10: C50.311, Z17.0 Completed lumpectomy March 2016 [id number]. Reviewed different options for adjuvant chemotherapy andafter careful discussion patient opted for TC. Completed 4 cycles of adjuvant chemotherapy with Taxotere and cyclophosphamide last cycle given on June 26, 2016. Completed adjuvant radiation in September 2016. In September 2016 she was started on anastrozole which she did not tolerate well and since October 2016 has been on letrozole which overall she has done well with. Mammogram 03/2022 was negative, repeat in 1 year Continue femara for a total of 7 years. Return in 1 year. Osteopenia-patient on fosamax per PCP Ruth Ann Gutierres PA-C documented in this [facility]12-30-2022 Evaluation note* Encounter Date Diagnosis Assessment Notes Treatment Notes Treatment Clinical Notes Feb, Laceration of left ear canal, initial encounter (ICD-10 - S01.312A) Discussed diagnosis with patient. Advised that she has laceration in left ear canal, likely due to trauma from q-tips. Area was irrigated, bleeding stopped with silver nitrate stick. Advised to avoid use of q-tips in the future. If bleeding returns, advised patient she needs to go to ER for cauterization. Patient verbalzies understanding and is agreeable with treatment plan [facility] Other 10-05-2022 Evaluation note* Encounter Date Diagnosis Assessment Notes Treatment Notes Treatment Clinical Notes Dec, Chronic kidney disea se, stage 3 unspecified (ICD-10 - N18.30) She has CKD due to longstanding hypertension. Her b/l serum creatinine is 1.0-1.2 mg/dL. She has bilateral renal cyst on CAT scan. I discussed with the importance of good HTN control to slow down the progression of CKD. 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 Dec, Nephrolithiasis (ICD -10 - N20.0) She denies any recent passage of the kidney stones. Continue to follow with urology. 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 She appears to be euvolemic. Continue current medications. Dec, Secondary hyperparathyroidism (ICD-10 - N25.81) MBD parameters are within the goal Dec, Microscopic hematuri a (ICD-10 - R31.29) She has microscopic hematuria likely due to Nephrolithiasis [facility] Other [id number] Note [id number]12-08-2021 NoteEducation Materials POST OPERATIVE TOTAL HIP DISCHARGE INTRUCTIONS Physical Therapy: -WBAT to operative hip -focus balance, transfers and steady gait. -use a walker -Do Not Do Active Hip Abduction Exercises On Either Hip -ok to do ROM on knee. SURGEON'S WRITTEN INSTRUCTIONS: Change dressing daily. When clean and dry for 2 days may leave open to air. Jamil hose (compression stockings) for 6 weeks Physical therapy as prescribed May shower, no tub bath. Do not rub/scrub incision. Wash gently Take Aspirin 325mg daily to prevent blood clots, coated or uncoated per patient preference. WHAT YOU SHOULD KNOW AFTER YOUR OPERATION: If you need pain pills, start before the pain becomes intense. Pain pills are frequently less upsetting to your stomach if you take them with food such as crackers or bread. If you have excessive or persistent pain, swelling, bleeding, nausea, vomiting or any other problems, you should first call your surgeon for advice. If you are unable to contact your surgeon, seek help from the emergency room. FOR THE PREVENTION OF DVT AFTER LOWER EXTREMITY SURGERY What is a DVT? There is always the risk of DVT after lower extremity surgery. DVT, or deep vein thrombosis, is a blood blot in a major vein that may partially or completely block the flow of blood. The clot occurs in the legs or pelvis, in areas where blood flow is slow, or in an injured blood vessel. DVT can be life-threatening should pieces of the clot break away and travel to the lungs. This is called pulmonary embolism What are the symptoms of DVT? The area affected by the blood clot may become swollen and painful, and possibly turn red as the normal flow of blood is blocked. You may also develop edema, which is the build up of fluid in the skin tissues surrounding the clot. If the clot is somewhere other than your leg, there may be no physical signs of DVT. If the clot breaks away and travels to your lungs, you may experience shortness of breath and chest pain. If this occurs you should call your doctor immediately or go to the emergencyroom. How can I prevent DVT? You should keep active. Moving the ankle and foot and bending the knee as tolerated when you are inbed and walking as tolerated. Take medication, especially the Aspirin, as prescribed by your doctor. What should I do if I think I have a DVT? You should call your doctor or go to the emergency room any time you have a sudden and unusual shortness of breath that is not related to exercise, exertion or anxiety. If you have swelling with redness and pain in your leg, you should call your doctor immediately. If there is concern then a test called ?Venous Doppler? can be done to rule of a DVT.[facility] [id number] [facility] Clinical Discharge Summary PERSON INFORMATION Name KATARINA CAMARA Age 75 Years 1945 Sex FEMALE Language Syrian PCP NICOLE VARGAS MD Marital Status Med Service Observation Acct# Arrival 02/06/2021 08:56:00 Visit Reason SURGERY - RIGHT TOTAL HIP Acuity LOS 002 01:34 Address: [address] [place] [address] Comment: PROVIDER INFORMATION VITALS INFORMATION Vital Sign Triage Latest Temp Oral 36.9 DegC 36.7 DegC Temp Temporal Temp Intravascular Temp Axillary Temp Rectal 02 Sat 96 % 94 % Respiratory Rate 20 br/min 18 br/min Peripheral Pulse Rate 73 bpm 83 bpm Apical Heart Rate Blood Pressure 141 mmHg / 85 mmHg 125 mmHg / 60 mmHg Comment: MEDICAL INFORMATION Allergy Info: Lyrica; Tape; Vioxx Medication List: Medications That Were Updated - Follow Below Instructions Other Medications Updated: ramipril (ramipril 10 mg oral capsule) 1 cap(s) Oral every day. Updated: traMADol (traMADol 50 mg oral tablet) 1 tab(s) Oral Every 4 hours as needed as needed for pain. Medications to Continue That Have Not Changed Other Medications acetaminophen (Tylenol Extra Strength 500 mg oral tablet) 2 tab(s) Oral Every 4 hours as needed pain. aspirin (aspirin 81 mg oral delayed release tablet) 1 tab(s) Oral every day. carvedilol (carvedilol 6.25 mg oral tablet) 1 tab(s) Oral 2 times a day. cholecalciferol (Vitamin D3 5000 intl units oral tablet) 1 tab(s) Oral every day. DULoxetine (DULoxetine 60 mg oral delayed release capsule) TAKE 1 CAPSULE BY MOUTH ONCE DAILY. ferrous sulfate (ferrous sulfate 325 mg (65 mg elemental iron) oral tablet) 1 tab(s) Oral every day. folic acid (folic acid 1 mg oral tablet) 1 tab(s) Oral every day. letrozole (letrozole 2.5 mg oral tablet) 1 tab(s) Oral every day for 10 Days. levothyroxine (levothyroxine 112 mcg (0.112 mg) oral tablet) 2 tab(s) Oral Every Saturday. TAKE 2 TABLETS BY MOUTH ONCE DAILY IN THE MORNING ON AN EMPTY STOMACH ON SATURDAY AND 1 TAB ALL OTHER DAYS. levothyroxine (levothyroxine 112 mcg (0.112 mg) oral tablet) 1 tab(s) Oral Saturday, Saturday, Saturday,Saturday, . montelukast (montelukast 10 mg oral tablet) 1 tab(s) Oral once a day (in the evening). oxyCODONE (oxyCODONE 5 mg oral tablet) 1 tab(s) Oral Every 6 hours as needed for pain. rosuvastatin (rosuvastatin 20 mg oral tablet) 1 tab(s) Oral every day. Comment: Lab and Radiology Results Laboratory or Other Results This Visit (last charted value for your 02/06/2021 visit) Hematology 11/05/2020 10:50 AM Hct: 45.4 % -- Normal range between ( 33.7 and 40.4 ) Hgb: 14.4 gm/dL -- Normal range between ( 11.3 and 15.9 ) MCH: 29 pg -- Normal range between ( 24 and 34 ) MCHC: 32 gm/dL -- Normal range between ( 26 and 37 ) MCV: 92 fL -- Normal range between ( 81 and 100 ) MPV: 10.5 fL -- Normal range between ( 6.3 and 10.2 ) Platelet: 261 x103/mcL -- Normal range between ( 138 and 427 ) RBC: 4.91 x106/mcL -- Normal range between ( 3.70 and 5.30 ) RDW: 13.7 % -- Normal range between ( 11.5 and 15.0 ) WBC: 5.5 x103/mcL -- Normal range between ( 3.5 and 10.5 ) Auto Eos %: 4.0 % -- Normal range between ( 0.9 and 4.0 ) Auto Lymph %: 24 % -- Normal range between ( 14 and 48 ) Auto Neut %: 60 % -- Normal range between ( 44 and 88 ) Eos Abs#: 0.2 x103/mcL -- Normal range between ( 0.0 and 0.4 ) Lymph Abs#: 1.4 x103/mcL -- Normal range between ( 1.3 and 2.9 ) Creek Abs#: 0.6 x103/mcL -- Normal range between ( 0.0 and 0.8 ) Auto Baso %: 0.5 % -- Normal range between ( 0.2 and 2.0 ) Auto Creek %: 11 % -- Normal range between ( 1 and 12 ) Baso Abs#: 0.0 x103/mcL -- Normal range between ( 0.0 and 0.2 ) Neut Abs#: 3.3 x103/mcL -- Normal range between ( 1.5 and 9.2 ) Chemistry 02/08/2021 8:00 AM Glucose, POC: 105 mg/dL -- Normal range between ( 74 and 118 ) Diagnostic Radiology 02/06/2021 2:27 PM XR Hip Complete Right: XR Hip Complete Right Radiology Report 02/06/2021 4:53 PM Radiology Report: Radiology Report DIET & ACTIVITY Patient Activity Level: Patient Diet: Regular Patient Activity Restrictions: DISCHARGE INFORMATION Discharge Disposition: Home Discharge Location: Home DEPART REASON INCOMPLETE INFORMATION PATIENT EDUCATION INFORMATION Instructions: [facility] PT instructions ([facility]) Follow up: With: Address: When: Bernadine Diaz [address] [place] [id number] Business (1) 12/17/2020 11:00 AM With: Address: When: NICOLE VARGAS [address] [place] [id number] Business (1) DIAGNOSIS Chronic right hip pain; Other chronic pain; Primary localized osteoarthritis of right hip Comment: PHYS DOC [facility]12-06-2021 Note [id number] [facility]Dis[facility] Author Tamiko Zhou [facility] January 18, 2023 12:54pm Note Date/Time January 18, 2023 12:50pm [facility] [address] [place] [address] Discharge Summary Signed Patient: Katarina Camara MR#: [id number] : 1945 Acct:[id number] Age/Sex: 77 / F Adm Date: 3 Loc: Room: Attending Dr: Nani Calloway MD Copies to: Nani Calloway MD, [facility] MD Tamiko Torre, DO~ Providers Date of Discharge: 01/18/23 Discharging Provider: Tamiko Zhou Primary Care Provider: Nicole Vargas Discharge Diagnosis (1) S/P cardiac catheterization: (2) ASHD (arteriosclerotic heart disease): (3) Hyperlipidemia: (4) Hypertension: (5) Angina pectoris: Final Diagnosis Final Discharge Diagnosis: Severe two-vessel ASHD Two-vessel PCI Small right groin hematoma Obesity Summary Hospital Course Hospital course: 77-year-old presents for outpatient heart catheterization yesterday for unstableanginal symptomatology, abnormal stress testing with severe, critical two-vesselASHD involving mid/distal circumflex and mid LAD; underwent two-vessel revascularization of the distal circumflex with 2.75 x 18 mm [place]; ostial/proximal circumflex with 3.5 x 12 mm Zeb, and mid LAD with 3 x 18 mm [place]. She developed mild right infra inguinal hematoma postoperatively, stayed overnight. CT imaging did not reveal any suprainguinal or retroperitoneal pathology, hemoglobin was stable She has been up and ambulating in the room with moderate infrainguinal ecchymosis but otherwise soft groin. 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 Condition Condition at Discharge: Stable Status at Discharge Functional status at discharge: independent ambulation Overall status at discharge: patient is back to baseline Time Spent with Patient Time spent providing/coordinating discharge services (# min): 30 Surgeries and Procedures Operation Date: 01/17/23 14:15 Actual Procedures p CL Stent 1st Vessel CX JANICE - W Hector Zhou, DO p CL Stent Ea Add CX JANICE - W Hector Zhou, DO p CL Stent 1st Vessel LAD JANICE - W Hector Zhou, DO p CL Ivus Initial Vessel - W Hector Zhou, DO p CL LHC & COR Angio - Nani Calloway MD p CL Closure Device Placement 0 - W Hector Zhou, Complications Complications: Small right groin hematoma Diagnostic Studies Completed and Pending Studies Pending studies at discharge: 01/17/23 15:40 CPR cardiac rehab ed Routine ECG 12 lead ECG Stat Labs on day of discharge: 01/18/23 04:57: PHA Creatinine Clear 64.28, Sodium 136, Potassium 3.3 L, Chloride 101, Carbon Dioxide 27.6, Anion Gap 10.7, BUN 7, Creatinine 0.84, Est GFR (CKD- EPI) > 60.0, Glucose 115 H, Calcium 8.1 L, Total Bilirubin 1.1 H, AST 18, ALT 12, Alkaline Phosphatase 59, Total Protein 5.7 L, Albumin 3.6, Globulin 2.1, Albumin/Globulin Ratio 1.7 01/18/23 04:57: Troponin I High Sens 91.0 H* 01/17/23 20:31: Blood Type Recheck O Positive 01/17/23 18:51: Hgb 13.4, Hct 40.6 01/17/23 18:37: Blood Type O Positive, Antibody Screen Negative Exam Physical Exam Vital Signs: Temp Pulse Resp BP Pulse Ox O2 Del Method 98.3 F 75 18 141/71 H 95 Room Air 01/18/23 12:02 01/18/23 12:02 01/18/23 12:02 01/18/23 07:26 01/18/23 12:02 01/18/23 12:02 Const General: cooperative, comfortable, no acute distress, well developed and well groomed Nutritional Appearance: obese Orientation: alert, awake and oriented x3 HEENT Head: normal to inspection Neck Neck: normal visual inspection Chest Chest palpation & inspection: normal inspection of the chest Resp Effort & Inspection: normal respiratory effort Auscultation: clear to auscultation bilaterally Cardio Palpation: normal PMI Rate: regular rate Rhythm: regular rhythm Heart Sounds: S1 normal and S2 normal Pulses: radial pulses present and femoral pulses present GI Inspection: obesity Palpation: soft Skin General: ecchymosis Neuro General: patient alert, patient awake and patient oriented x3 Cognition: normal cognition Speech: speech normal Extrem General: abnormal to inspection Other: Right groin in for inguinal ecchymosis without bruit, soft, small hematoma Discharge Plan Discharge Plan Patient Disposition: Home Diet: Low-Cholesterol Additional Instructions: DISCHARGE INSTRUCTIONS FOR ANGIOPLASTY/CORONARY/PERIPHERAL/STENT IMPLANT FOR ADULT ANTICOAGULATION -Since the greatest risk of a blood clot forming with the stent occurs in the first 2-3 weeks after implantation, you will need to take anticoagulants for at least 12-18 months. ANTICOAGULATION MEDICATION Aspirin 81mg once a day, Ticagrelor (Brilinta) 90mg twice a day STATIN MEDICATION Rosuvastatin (Crestor) 40mg Drug-Eluting Stent (JANICE) DO NOT discontinue Brilinta/Aspirin during the first few months regardless of what you are advised by your family doctor or pharmacist, without first calling the shop hand who implanted the stent. If you require pain relief during this time, please take only ACETAMINOPHEN (TYLENOL)- NO additional aspirin or ibuprofen. DISCHARGE ACTIVITIES ARE FOLLOWS: First week after discharge: -Take it easy at home, no strenuous activity. -Do not lift or pull objects over 10-15 pounds, including children, and groceries for four weeks. If puncture site is at wrist do NOT lift more than three pounds for three days. - May walk up stairs. -May shower. -No excessive scrubbing of the affected site (groin). -May ride in car. -May resume sexual intercourse after 1-2 weeks. -No MRI for 12 days. -May drive in 4-7 days. -If puncture site is at the wrist do not manipulate the wrist for 24 hours, and no soaking wrist for three days. Second Week: -May take a bath -May start walking 3 times a week for 15-20 minutes at a leisurely pace. You should be able to carry on a conversation comfortably without feeling winded. -No strenuous activity as in jogging, running, weight lifting, stair steppers, etc. until the shop hand approves these activities. Check with the shop hand on your first follow-up visit. CALL YOUR PHYSICIAN at [phone]: -If bleeding should occur from the catheter insertion site- apply pressure to the site then immediately call us. -Report any fever, redness, drainage, increased swelling, or firmness at the catheter insertion site. Some bruising or slight swelling may be present at thetime of discharge. -Should arm or leg become cold, numb, white, or blue, contact the shop hand immediately. -IF you should experience episodes of angina, e.g. chest discomfort, heaviness, tightness, pressure burning with or without radiation to the neck, jaw, arms or back- use 1 Nitrostat tablet under your tongue every 5-10 minutes and up to three tablets. IF NO RELIEF, CALL 911 or GO TO THE NEAREST EMERGENCY ROOM. -Please notify our office if you have recurrent angina. -[Cardiac Rehab Education Provided. Participation in the Cardiopulmonary Rehabilitation program is recommended. Please call Central Scheduling at [phone] to schedule your appointment.] The attending shop hand or [facility] nurse clinician should provide you with specific instructions regarding activity, diet, medications, and further follow up for you. Follow the medication instructions provided on your discharge. If the dosages and instructions on this sheet differ from the dosage and instructions on the bottle, follow the instructions on the bottle. [facility] is not responsible for incorrect prescription information provided by thepatient during their visit. Do not stop your medications without consulting your health care provider. Please take the list with you to your next doctor's appointment. Instructions: Coronary Angioplasty (DC), Coronary Stenting (DC), Angina (DC), Chest Pain (DC), Drug Eluting Stents Prescriptions: New nitroglycerin 0.4 mg Tablet, Sublingual 0.4 mg sublingual Q5M PRN (Reason: Chest Pain) 30 Days Qty: 25 3RF aspirin [Children's Aspirin] 81 mg Tablet,Chewable 81 mg PO DAILY Qty: 0 0RF Brilinta 90 mg Tablet 90 mg PO BID 90 Days Qty: 180 3RF Continued carvedilol 6.25 mg tablet 6.125 mg PO BID Patient Comments: TAKE 1 TABLET BY MOUTH TWICE A DAY cetirizine [Zyrtec] 10 mg Tablet 10 mg PO DAILY PRN (Reason: allergies) alendronate 70 mg tablet 70 mg PO QWEEK Patient Comments: TAKE 1 TABLET BY MOUTH ONCE A WEEK BEFORE THE FIRST FOOD/DRINK/MEDICINE OF THE DAY WITH PLAIN WATER Rx Instructions: tramadol 50 mg Tablet 50 mg PO QID acetaminophen [Tylenol Extra Strength] 500 mg Tablet 500 mg PO DAILY PRN (Reason: Pain) folic acid 1 mg tablet 1 mg PO QAM Patient Comments: TAKE 1 TABLET BY MOUTH EVERY DAY montelukast 10 mg tablet 10 mg PO QHS Patient Comments: TAKE 1 TABLET BY MOUTH ONCE DAILY letrozole 2.5 mg tablet 2.5 mg PO QAM Patient Comments: TAKE 1 TABLET BY MOUTH EVERY DAY ramipril 10 mg Capsule 10 mg PO QNOON levothyroxine 112 mcg tablet 112 mcg PO QAM Patient Comments: TAKE 1 TALBET BY MOUTH IN THE MORNING BEFORE A MEAL omega-3 fatty acids Capsule 1,000 mg PO BID rosuvastatin 20 mg tablet 20 mg PO QHS Patient Comments: TAKE 1 TABLET BY MOUTH EVERY DAY duloxetine [Cymbalta] 60 mg capsule,delayed release(DR/EC) 60 mg PO QHS Patient Comments: TAKE 1 CAPSULE BY MOUTH ONCE DAILY cholecalciferol (vitamin D3) [Vitamin D3] 125 mcg (5,000 unit) Tablet 125 mcg PO QNOON Discontinued aspirin [Леена Aspirin] 325 mg Tablet 325 mg PO QAM Follow Up: [facility] [Outside] - 01/22/23 10:30 am Documented By: Tamiko Zhou DO 01/18/23 1249 Signed By: <Electronically signed by Tamiko Zhou DO> 01/18/23 1254 [facility] Work Phone: Evaluation note* Diagnosis Malignant neoplasm of lower-inner quadrant of right breast of female, estrogen receptor positive (HCC)- Primary Breast screening Breast screening, unspecified Encounter for screening mammogram for malignant neoplasm of breast Other screening mammogram Osteopenia, unspecified location [facility] available[facility] Work Phone: Evaluation note* Diagnosis Abnormal stress test Other nonspecific abnormal cardiovascular system function study Angina pectoris (CMS/HCC) Other and unspecified angina pectoris Abnormal EKG Nonspecific abnormal electrocardiogram (ECG) (EKG) Hyperlipidemia, unspecified hyperlipidemia type Essential hypertension, benign documented in this encounter [facility] Work Phone: Evaluation note* Diagnosis Coronary artery disease involving big sandy coronary artery of big sandy heart without angina pectoris- Primary S/P angioplasty with stent Postsurgical percutaneous transluminal coronary angioplasty status Angina pectoris (CMS/HCC) Other and unspecified angina pectoris Essential hypertension, benign Mixed hyperlipidemia BMI 40.0-44.9, adult (CMS/HCC) documented in this encounter [facility] Work Phone: Evaluation noteNo [facility] Other Evaluation note* Diagnosis Onset Date Resolution Status Angina pectoris acute ASHD (arteriosclerotic heart disease) acute Hyperlipidemia acute Hypertension acute S/P cardiac catheterization acute [facility] Work Phone: Hisqkja general Narrative - Reported* Type Description Date Medical History CHRONIC KIDNEY DISEASE STAGE 3 Medical History KIDNEY STONES Medical History BILATERAL RENAL CYSTS Medical History FAMILY HISTORY OF BLADDER CANCER Medical History STRESS INCONTINENCE Medical History HISTORY OF BREAST CANCER Medical History RIGHT HIP REPLACEMENT Surgical History RIGHT BREAST LUMPECTOMY Surgical History PORT PLACEMENT Surgical History CYST REMOVED FROM LEFT WRIST Surgical History CYST ON RIGHT OVARY Surgical History TUBES TIDED Surgical History PARTIAL HYSTERECTOMY Surgical History LEFT HIP REPLACEMENT Surgical History RIGHT HIP REPLACEMENT 02/06/2021 Hospitalization History SEE ABOVE Hospitalization History CHILD BIRTHS [employer] Other history general Narrative - Reported* Type Description Date Medical History CHRONIC KIDNEY DISEASE STAGE 3 Medical History KIDNEY STONES Medical History BILATERAL RENAL CYSTS Medical History FAMILY HISTORY OF BLADDER CANCER Medical History STRESS INCONTINENCE Medical History HISTORY OF BREAST CANCER Medical History RIGHT HIP REPLACEMENT Medical History PNEUMONIA 05/2022 Medical History URI 08/2022 Medical History URI 10/2022 Surgical History RIGHT BREAST LUMPECTOMY Surgical History PORT PLACEMENT Surgical History CYST REMOVED FROM LEFT WRIST Surgical History CYST ON RIGHT OVARY Surgical History TUBES TIDED Surgical History PARTIAL HYSTERECTOMY Surgical History LEFT HIP REPLACEMENT Surgical History RIGHT HIP REPLACEMENT 02/06/2021 Hospitalization History SEE ABOVE Hospitalization History [facility] [employer] [place] Other history general Narrative - Reported* Type Description Date Medical History CHRONIC KIDNEY DISEASE STAGE 3 Medical History KIDNEY STONES Medical History BILATERAL RENAL CYSTS Medical History FAMILY HISTORY OF BLADDER CANCER Medical History STRESS INCONTINENCE Medical History HISTORY OF BREAST CANCER Medical History RIGHT HIP REPLACEMENT Medical History PNEUMONIA 05/2022 Medical History URI 08/2022 Medical History URI 10/2022 Surgical History RIGHT BREAST LUMPECTOMY Surgical History PORT PLACEMENT Surgical History CYST REMOVED FROM LEFT WRIST Surgical History CYST ON RIGHT OVARY Surgical History TUBES TIDED Surgical History PARTIAL HYSTERECTOMY Surgical History LEFT HIP REPLACEMENT Surgical History RIGHT HIP REPLACEMENT 02/06/2021 Surgical History 3 stents 01/17/23 Surgical History APPENDECTOMY Hospitalization History SEE ABOVE Hospitalization History CHILD BIRTHS Hospitalization History Severe two-vesse l, ASHD Two-vessel, PCI Small right groin hematoma, Obesity 01/17/23-01/18/23 [employer] Other Hospital Discharge instructions Additional Instructions DISCHARGE INSTRUCTIONS FOR ANGIOPLASTY/CORONARY/PERIPHERAL/STENT IMPLANT FOR ADULT ANTICOAGULATION -Since the greatest risk of a blood clot forming with the stent occurs in the first 2-3 weeks after implantation, you will need to take anticoagulants for at least 12-18 months. ANTICOAGULATION MEDICATION Aspirin 81mg once a day, Ticagrelor (Brilinta) 90mg twice a day STATIN MEDICATION Rosuvastatin (Crestor) 40mg Drug-Eluting Stent (JANICE) DO NOT discontinue Brilinta/Aspirin during the first few months regardless of what you are advised by your family doctor or pharmacist, without first calling the shop hand who implanted the stent. If you require pain relief during this time, please take only ACETAMINOPHEN (TYLENOL)- NO additional aspirin or ibuprofen. DISCHARGE ACTIVITIES ARE FOLLOWS: First week after discharge: -Take it easy at home, no strenuous activity. -Do not lift or pull objects over 10-15 pounds, including children, and groceries for four weeks. If puncture site is at wrist do NOT lift more than three pounds for three days. - May walk up stairs. -May shower. -No excessive scrubbing of the affected site (groin). -May ride in car. -May resume sexual intercourse after 1-2 weeks. -No MRI for 12 days. -May drive in 4-7 days. -If puncture site is at the wrist do not manipulate the wrist for 24 hours, and no soaking wrist for three days. Second Week: -May take a bath -May start walking 3 times a week for 15-20 minutes at a leisurely pace. You should be able to carry on a conversation comfortably without feeling winded. -No strenuous activity as in jogging, running, weight lifting, stair steppers, etc. until the shop hand approves these activities. Check with the shop hand on your first follow-up visit. CALL YOUR PHYSICIAN at [phone]: -If bleeding should occur from the catheter insertion site- apply pressure to the site then immediately call us. -Report any fever, redness, drainage, increased swelling, or firmness at the catheter insertion site. Some bruising or slight swelling may be present at the time of discharge. -Should arm or leg become cold, numb, white, or blue, contact the shop hand immediately. -IF you should experience episodes of angina, e.g. chest discomfort, heaviness, tightness, pressure burning with or without radiation to the neck, jaw, arms or back- use 1 Nitrostat tablet under your tongue every 5-10 minutes and up to three tablets. IF NO RELIEF, CALL 911 or GO TO THE NEAREST EMERGENCY ROOM. -Please notify our office if you have recurrent angina. -[Cardiac Rehab Education Provided. Participation in the Cardiopulmonary Rehabilitation program is recommended. Please call Central Scheduling at [phone] to schedule your appointment.] The attending shop hand or [facility] nurse clinician should provide you with specific instructions regarding activity, diet, medications, and further follow up for you. Follow the medication instructions provided on your discharge. If the dosages and instructions on this sheet differ from the dosage and instructions on the bottle, follow the instructions on the bottle. [facility] is not responsible for incorrect prescription information provided by the patient during their visit. Do not stop your medications without consulting your health care provider. Please take the list with you to your next doctor's appointment.[facility] Work Phone: Progress note Author W Abelardo [facility] January 18, 2023 12:55pm Note Date/Time January 18, 2023 12:26pm [facility] [address] [place] [address] Cardiology Progress Note Signed Patient: Katarina Camara MR#: [id number] : 1945 Acct:[id number] Age/Sex: 77 / F Adm Date: 3 Loc: [facility]: [facility]: Nani Calloway MD Copies to: ~ Date of Service: 01/18/2023 Subjective Interval history: Ms. Camara is a 77 year old female seen in interventional cardiology consultation at the request Dr. 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 The remainder of her imaging, history are elucidated in the outpatient EMR that is been reviewed Angiograms are reviewed with Dr. Faulkner this afternoon, revealing subtotal occlusion of the aneurysmal, distal circumflex and 95% stenosis of the mid LAD with poststenotic dilation. Both these lesions are consistent with high risk anatomy especially given the amount of myocardium at risk. Plan at this time isproceed with two-vessel revascularization and possibly admit afterwards if necessary Interval history 01/18: Patient successfully underwent PCI of mid/distal circumflex and ostial circumflex Zeb stents with IVUS guidance, and mid LAD PCIfrom the right femoral artery, for total of 3x stents. After transitioning to the floor yesterday patient complained of right groin and abdominal pain. Stat CT and H&H required. Appropriate orders were placed and the patient improved without further complication overnight. Patient reports feeling well this morning and has been ambulatory in her room without complication. She does haveecchymosis of the right growing without signs of persistent blood loss. Her H&His stable. Plan is to discharge the patient today and have her follow-up with Dr. Hernández outpatient. Patient will be on aspirin and Brilinta. Exam Physical Exam Vital Signs: Temp Pulse Resp BP Pulse Ox O2 Del Method 98.3 F 75 18 141/71 H 95 Room Air 01/18/23 12:02 01/18/23 12:02 01/18/23 12:02 01/18/23 07:26 01/18/23 12:02 01/18/23 12:02 Const General: cooperative, comfortable, no acute distress, well developed and well groomed Nutritional Appearance: overweight Orientation: alert, awake and oriented x3 HEENT Head: normal to inspection Eyes Pupils: PERRL Neck Neck: normal visual inspection Chest Chest palpation & inspection: normal inspection of the chest Resp Effort & Inspection: normal respiratory effort Auscultation: clear to auscultation bilaterally Cardio Palpation: normal PMI Rate: regular rate Rhythm: regular rhythm Heart Sounds: S1 normal, S2 normal and no murmurs Pulses: radial pulses present and femoral pulses present GI Inspection: obesity Palpation: soft Skin General: ecchymosis Neuro General: patient alert, patient awake and patient oriented x3 Cognition: normal cognition Speech: speech normal Extrem General: no clubbing, cyanosis or edema Objective Labs 01/17/23 18:51 01/18/23 04:57 Labs: Laboratory Results - last 24 hr 01/17/23 01/17/23 01/17/23 18:37 18:51 20:31 Hgb 13.4 Hct 40.6 PHA Creatinine Clear Sodium Potassium Chloride Carbon Dioxide Anion Gap BUN Creatinine Est GFR (CKD-EPI) Glucose Calcium Total Bilirubin AST ALT Alkaline Phosphatase Troponin I High Sens Total Protein Albumin Globulin Albumin/Globulin Ratio Blood Type O Positive Blood Type Recheck O Positive Antibody Screen Negative 01/18/23 01/18/23 04:57 04:57 Hgb Hct PHA Creatinine Clear 64.28 Sodium 136 Potassium 3.3 L Chloride 101 Carbon Dioxide 27.6 Anion Gap 10.7 BUN 7 Creatinine 0.84 Est GFR (CKD-EPI) > 60.0 Glucose 115 H Calcium 8.1 L Total Bilirubin 1.1 H AST 18 ALT 12 Alkaline Phosphatase 59 Troponin I High Sens 91.0 H* Total Protein 5.7 L Albumin 3.6 Globulin 2.1 Albumin/Globulin Ratio 1.7 Blood Type Blood Type Recheck Antibody Screen A&P - Cardiology (1) S/P cardiac catheterization: Code(s): Z98.890 - Other specified postprocedural states Status: Acute (2) ASHD (arteriosclerotic heart disease): Code(s): I25.10 - Atherosclerotic heart disease of big sandy coronary artery without angina pectoris Status: Acute (3) Hyperlipidemia: Code(s): E78.5 - Hyperlipidemia, unspecified Status: Acute (4) Hypertension: Code(s): I10 - Essential (primary) hypertension Status: Acute (5) Angina pectoris: Code(s): I20.9 - Angina pectoris, unspecified Status: Acute Documented By: Florencio De La Fuente DO, RES 01/18/23 12 10 Signed By: <Electronically signed by DO FRANCISCO J Matias De La Fuente> 01/18/23 1226 <Electronically signed by Tamiko Zhou DO> 01/18/23 1255 [facility] Work Phone: Reason for referral (narrative)* Diagnostic Procedure Only (Routine) - Pending Review Specialty Diagnoses / Procedures Referred By Contac t Referred To Contact BR IMAGING Diagnoses Malignant neoplasm of lower-inner quadrant of right breast of female, estrogen receptor positive (HCC) Breast screening Encounter for screening mammogram for malignant neoplasm of breast Procedures WICHO SCREENING W BETINA SCREENING DIGITAL BREAST TOMOSYNTHESIS BI SCREENING MAMMOGRAPHY BI 2-VIEW BREAST INC CAD Ruth Ann Gutierres PA-C [address] [place] [address] [place] [address] [facility] Imaging [address] [place] [address] Referral ID Status Reason Start Date Expiration Date Visits Requested Visits Authorized [id number] Pending Review Auto-Generat ed Referral 05/15/2022 06/14/2023 1 [facility] Consultation (Routine) - Authorized Specialty Diagnoses / Procedures Referred By Contac t Referred To Contact Cardiology Diagnoses Abnormal stress test Angina pectoris (CMS/HCC) Procedures Follow Up In Cardiology Nani Calloway MD [address], [address] [address] Nani Calloway MD [address], [facility] [address] [place] [address] Referral ID Status Reason Start Date Expiration Date V isits Requested Visits Authorized [id number] Authorized 12/25/2022 12/25/2023 1 1 * Cardiovascular (Routine) - Pending Review Specialty Diagnoses / Procedures Referred By Contac t Referred To Contact Diagnoses Abnormal stress test Angina pectoris (CMS/HCC) Procedures ECG 12 Lead Nani Calloway MD [address], [address] [place] [address] Referral ID Status Reason Start Date Expiration Date V isits Requested Visits Authorized [id number] Pending Review 12/25/2022 12/25/2023 1 1 [facility] Work Phone: Reason for referral (narrative)* Consultation (Routine) - Authorized Specialty Diagnoses / Procedures Referred By Contac t Referred To Contact Cardiology Diagnoses Coronary artery disease involving big sandy coronary artery of big [place] heart without angina pectoris Procedures Follow Up In Cardiology Jacqueline Campos APRN-CNP [address] [facility] 2, [address] [place] [address] Nani Calloway MD [address] [facility] [address], [address] [place] [address] Referral ID Status Reason Start Date Expiration Date V isits Requested Visits Authorized [id number] Authorized 01/22/2023 01/22/2024 1 1 * Consultation (Routine) - Authorized Specialty Diagnoses / Procedures Referred By Contac t Referred To Contact Cardiac Rehabilitation Diagnoses S/P angioplasty with stent Coronary artery disease involving big sandy coronary artery of big [place] heart without angina pectoris Jacqueline Campos APRN-CNP [address] [facility] 2, [address] [place] [address] Referral ID Status Reason Start Date Expiration Date Visits Requested Visits Authorized [id number] Authorized Specialty Services Required 01/22/2024 1 1 [facility] Work Phone: Summary Purpose Family History No Family History Records Found Relationship Condition Age at Onset Recorded Date/T juany sister Cerebral aneurysm Unknown brother Cerebral aneurysm Unknown brother Benign neoplasm of brain Unknown brother Malignant neoplasm of urinary bladder Unk nown Status post single v essel coronary artery bypass Unknown sister Malignant neoplasm of colon Unknown sister Retinal microaneurysm of right eye Unknow n Advance Directives No Advanced Directives Records Found Advance Directive Response Recorded Date/ Time Advance Directives No September 05 12:36pm Advance Directive Response Recorded Date/ Time Advance Directives No September 05 11:36am Chief Complaint and Reason for Visit Chief Complaint R07.9 Chief Complaint R07.9 Angina, Abnormal Stress Test, Abnormal EKG Angina, Abnormal Stress Test, Abnormal EKG Reason for Visit Angina pectoris ASHD (arteriosclerotic heart disease) Hyperlipidemia Hypertension S/P cardiac catheterization Additional Source Comments INFORMATION SOURCE (unrecogn ized section and content) DATE CREATED AUTHOR 02/15/2021 [facility] DATE CREATED AUTHOR AUTHOR'S ORGANIZ ATION 05/17/2022 [facility] DATE CREATED AUTHOR AUTHOR'S ORGANIZ ATION 06/16/2022 [facility] DATE CREATED AUTHOR AUTHOR'S ORGANIZ ATION 06/28/2022 [facility] ical Center DATE CREATED AUTHOR AUTHOR'S ORGANIZ ATION 11/02/2022 [facility] Center DATE CREATED AUTHOR AUTHOR'S ORGANIZ ATION 02/08/2023 [facility] DATE CREATED AUTHOR AUTHOR'S ORGANIZ ATION 02/28/2023 [facility] DATE CREATED AUTHOR AUTHOR'S ORGANIZ ATION 03/06/2023 [facility] d[facility] Specialists EPIC REASON FOR VISIT (unrecogniz ed section and content) Reason Comments Refill Request Reason Comments Breast Cancer 1 year follow up Reason Comments Establish Care Abnormal stress & SO B Specialty Diagnoses / Procedures Referred By Andrés t Referred To Contact Diagnoses Abnormal stress test Angina pectoris (CMS/HCC) Procedures ECG 12 Lead Nani Calloawy MD [address] [facility] [address], [address] [address] Referral ID Status Reason Start Date Expiration Date V isits Requested Visits Authorized [id number] Pending Review 12/25/2022 12/25/2023 1 1 Reason Comments Follow-up [facility]cm fr, d/c Specialty Diagnoses / Procedures Referred By Andrés t Referred To Contact Cardiology Diagnoses S/P angioplasty with stent Procedures Follow Up In Cardiology Niraj Zhou DO [address] [facility] [address], [address] [place] [address] Nani Calloway MD [address] [facility] [address], [address] [place] [address] Referral ID Status Reason Start Date Expiration Date V isits Requested Visits Authorized [id number] Authorized 01/18/2023 01/18/2024 1 1 Source Comments (unrecognize d section and content) In the event this informatio n is protected by the Federal Confidentiality of Alcohol and Drug Abuse Patient Records regulations: The Federal rules restrict any use of the information to criminally investigate or prosecute any alcohol or drug abuse patient.[facility] the event this information is protected by the Federal Confidentiality of Alcohol and Drug Abuse Patient Records regulations: The Federal rules restrict any use of the information to criminally investigate or prosecute any alcohol or drug abuse patient.[facility] Care Teams (unrecognized sec tion and content) Logistics Analytics Manager Relationship Specialty Start Date End Date Nicole Vargas [address] [facility] [address] [place] [address] PCP - General Family Medicine 07/15/18 Logistics Analytics Manager Relationship Specialty Start Date End Date Nicole Vargas [address] [facility] [address] [place] [address] PCP - General Family Medicine 07/15/18 Team Status: Active Member Role Status Dates Nicole Vargas MD Primary Care Provider Active Team Status: Inactive Member Role Status Dates Nicole Vargas MD Primary Care Provider Active Shellie Jennings , CAREER PROFESSIONAL-C Attending Provider Active Tamiko Zhou DO Referring Provider Active Logistics Analytics Manager Relationship Specialty Start Date End Date Nicole Vargas MD [address] [place] [address] PCP - General Family Medicine 12/25/22 Logistics Analytics Manager Relationship Specialty Start Date End Date Nicole Vargas MD [address] [facility] [address] [place] [address] PCP - General Family Medicine 12/25/22 Mary Dasilva RN Care Ethical Hacker 01/18/23 Team Status: Inactive Member Role Status Dates Nicole Vargas MD Primary Care Provider Active Nani Calloway MD Attending Provider Active Goals (unrecognized section and content) Goals may be documented in a n alternate section FOR RECORDS PERTAINING TO PATIENTS WHO ARE OR HAVE BEEN ENROLLED IN A CHEMICAL DEPENDENCY/SUBSTANCEABUSE PROGRAM, SOME INFORMATION MAY BE OMITTED. This clinical summary was aggregated from multiple sources. Caution should be exercised in using it in the provision of clinical care. This summary normalizes information from multiple sources, and as a consequence, information in this document may materially change the coding, format and clinical context of patient data. In addition, data may be omitted in some cases. CLINICAL DECISIONS SHOULD BE BASED ON THE PRIMARY CLINICAL RECORDS. [facility]. provides no warranty or guarantee of the accuracy or completeness of information in this document.
[2023-03-18 13:14] LABS: Hemoglobin 14.2 g/dL (12.0-16.0)
--- NOTE | 2023-03-18 14:22 | RT_ITS ---
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 Findings were considered accurate and reproducible. No bronchodilator was administered due to normal spirometric values. No prior studies are currently available for comparison. Spirometry: -FEV1/FVC: Normal @ 87% -FEV1: Normal @ 117% -FVC: Normal @ 101% Lung volumes by plethysmography: -RV: Reduced @ 72% -TLC: Normal @ 92% Diffusion capacity: -DLCO: Normal @ 85% when corrected for Hb 14.2g/dL Flow-volume loop: -Normal shape Impressions: -Normal spirometry and diffusion capacity. A reduced RV with normal TLC and diffusion capacity suggests an obesity pattern based on stated BMI of 43.5. No evidence of obstructive lung disease. Clinical correlation required. Electronically Signed On 03-20-2023 18:10:47 EST by Calrence Mayes
== END 2023-03-18 13:02 | disposition home or self-care (01) ==
LOC: CARD 13:01
PROVIDERS: PCP Family Medicine; Visit Provider Family Medicine
DX: R06.02 Shortness of breath (principal)
CPT/HCPCS: 36415; 85018; 94010; 94726; 94729

== ENCOUNTER 2023-04-11 13:46 | Outpatient (OUT) | payer MEDICARE, SELFPAY ==
--- NOTE | 2023-04-11 13:49 | MM_ITS ---
Patient Name: GURJIT CAMARA MR#: [id number] : 1945 Exam Date: 04/11/2023 Ordering Doctor: Non-Staff Physician RADIOLOGY REPORT PROCEDURE: MM TOMOSYNTHESIS SCREENING BI COMPARISON: MG MAMM DIAGNOSTIC 3D DA CAD, 03/28/2021. MG MAMM SCREEN 3D DA CAD, 04/03/2022. INDICATIONS: screening Calculator Name NCI Breast Cancer Risk Assessment Tool 5 Year Breast Cancer Risk n/a% Lifetime Breast Cancer Risk n/a% Personal Breast Cancer Yes, 69 Personal Ovarian Cancer No Treatments radiation and chemotherapy Family Cancers None LOCATION: [facility] BREAST COMPOSITION: Scattered areas fibroglandular density. FINDINGS: DIAGNOSTIC CATEGORY 2--BENIGN FINDING. NO CHANGE FROM COMPARISON. Scattered benign-appearing calcifications are present. Scattered benign-appearing lymph nodes are present. RIGHT BREAST: Asymmetrically small, stable. Coarse calcifications and focal asymmetry lower inner quadrant posterior breast deep to a linear scar marker, stable, postprocedural changes are favored. LEFT BREAST: No significant suspicious finding. RECOMMENDATIONS: ROUTINE MAMMOGRAM AND CLINICAL EVALUATION IN 12 MONTHS. PLEASE NOTE: A NORMAL MAMMOGRAM DOES NOT EXCLUDE THE POSSIBILITY OF BREAST CANCER. A CLINICALLY SUSPICIOUS PALPABLE LUMP SHOULD BE BIOPSIED. Dictated by: Piter Menezes MD on 04/11/2023 at 15:24 Approved by: Piter Menezes MD on 04/11/2023 at 15:26
--- OUTSIDE RECORDS SUMMARY | 2023-04-11 13:55 | XMS_ITS | CCD ---
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 Name Role Phone Jani Aguilera Unavailable Nicole Vargas Primary Care Provider China Noland Unavailable HARINI ROSA Referring Unavailable SAM, NICOLE HOANG Primary Care Unavailable RUTH ANN GUTIERRES Attending Unavailable HARINI, ROSA Referring Unavailable SAM, NICOLE HOANG Primary Care Unavailable SAM, DR RIVERA Primary [...] Primary Care Unavailable HARINI, ROSA Admitting Unavailable ROSA TURNER Attending Unavailable ZIEBER, DR PEPPER Fuller Consulting Unavailable SAM, DR RIVERA Primary Care Unavailable HARINI, ROSA Consulting Unavailable Sam, MD Nicole Napier Primary Care Provider JOHANNA Jennings Attending Provider DO Tamiko Zhou Referring Provider Nicole Vargas MD Primary Care Provider Mary Dasilva RN Unavailable Unavailable Provider, Ordering Unavailable MD Nicole Vargas Primary Care Provider [phone] JOHANNA Jennings Attending Provider DO Tamiko Zhou Referring Provider MD Nani Calloway Attending Provider Mast, Wan Unavailable Nani Calloway Attending Unavailable [place], Rugen M Primary Care Unavailable CallowayNani Admitting Unavailable [place], Rugen M Primary Care Unavailable Jacqueline Ellis Admitting Unavailable Jacqueline Ellis Attending Unavailable [place], Rugen M Primary Care Unavailable CallowayNani Admitting Unavailable Nani Calloway Attending Unavailable Shellie Jennings Attending Unavailable Sam, Rugen M Primary Care Unavailable Tamiko Zhou Referring Unavailable Shellie Jennings Admitting Unavailable BERNADINE DIAZ Attending Unavailable Sam SUH, Nicole Hoang Primary Care Provider NANI CALLOWAY Attending Unavailable SAM, RUGEN MABALAY Primary Care Unavailable JACQUELINE CAMPOS Attending Unavailable NIRAJ ZHOU Referring Unavailable SAM, RUGEN MABALAY Primary Care Unavailable CALLOWAYNANI M Referring Unavailable SAM, RUGEN MABALAY Primary Care Unavailable NANI CALLOWAY Attending Unavailable NANI CALLOWAY Referring Unavailable SAM, RUGEN MABALAY Primary Care Unavailable Allergies Allergy Classification Reported Allergen(s) Allergy Type Date of Onset Reaction(s) Facility (7 sources) Ibuprofen Drug Allergy Unknown [facility] Other (15 sources) pregabalin; 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: [PREGABALIN] Drug Allergy 1 Mental Status Change, Confusion [facility] (7 sources) Ibuprofen; 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: [IBUPROFEN] Drug Allergy 7 Intolerance, Other [facility] (3 sources) rofecoxib; 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: [ROFECOXIB] Drug Allergy 7 Swelling [facility] (7 sources) Sulfonamides (Antibiotic); 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: [SULFA (SULFONAMIDE ANTIBIOTICS)] Drug Allergy 7 Vomiting, GI Upset [facility] (1 source) Adhesive agent Drug allergy (disorder) 7 [facility] (1 source) Ibuprofen Drug Allergy 7 [facility] (1 source) pregabalin Drug Allergy 1 [facility] (1 source) rofecoxib Drug Allergy 6 [facility] (1 source) Trimethoprim Drug Allergy 1 [facility] (4 sources) Adhesive Tape Drug allergy rash [facility] Other (1 source) pregabalin Drug Allergy 3 [facility] Medications Current Medications Medication Drug Class(es) [...] nee ded Orally every 8 hrs Active [id number] actuat albuterol 0.09 mg/actuat metered dose [...] NEEDED alendronic acid 70 mg oral tablet (8 sources) Bisphosphonate Start: 3 take 70 mg by mouth every week Alendronate Active 70 MG PO every week January 15, 2023 12:00am Start: 05-15-2021 End: 05-15-2022 take 1 tablet [...] mg by mouth one time a week. amoxicillin 500 mg oral capsule (10 sources) Penicillin-class Antibacterial amoxicillin (Amoxil) 500 mg capsule Take 4 capsules (2,000 mg) by mouth if needed (before dental). 0 Active aspirin 81 mg chewable tablet (15 sources) Platelet Aggregation Inhibitor, Nonsteroidal Anti-inflammatory Drug Start: 3 take 1 tablet by mouth once daily [...] once daily. benzonatate 100 mg oral capsule (3 sources) Non-narcotic Antitussive Start: 3 take 1 capsule by mouth every eight hours Tessalon Perles 100 MG 1 capsule as needed Orally Three times a day for 7 days May, Active carvedilol 6.25 mg oral tablet (13 sources) alpha-Adrenergic Stas, beta-Adrenergic Stas Start: 3 [...] hydrochloride 120 mg extended release oral tablet (3 sources) alpha-Adrenergic Agonist, Histamine-1 Receptor Antagonist take [...] DULoxetine 60 mg delayed release oral capsule (13 sources) Serotonin and Norepinephrine Reuptake Inhibitor Start: 01-15-2023 take 1 capsule by mouth once daily at bedtime Duloxetine (Cymbalta) 60 mg capsule,delayed release(DR/EC) Active 60 MG PO Daily at bedtime January 15, 2023 12:00am Comment on above: Take 60 mg by mouth once daily. folic acid 1 mg oral tablet (13 sources) Start: 01-15-2023 take 1 mg by mouth once daily in the morning Folic Acid Active 1 MG PO Every morning January 15, 2023 12:00am Comment on above: Take 1 mg by mouth once daily. furosemide 40 mg oral tablet (5 sources) Loop Diuretic Start: 03-06-2023 take 1 tablet by mouth once daily as needed for edema, then take 1 tablet by mouth once daily as needed for edema furosemide (Lasix) 40 mg tablet Indications: Generalized edema Take 1 tablet (40 mg) by mouth once daily as needed (for swelling). take one tablet daily as needed for edema. 90 tablet 1 03/06/2023 Active Start: 03-15-2020 furosemide (LA SIX) 20 mg tablet take 1 tablet by flori th every twenty-four hours Furosemide 40 MG 1 tablet Orally Once a day Active indapamide 1.25 mg oral tablet (1 source) Thiazide-like Diuretic Start: 04-02-2023 End: 04-01-2024 take 1 tablet by mouth once daily in the morning indapamide (Lozol) 1.25 mg tablet Indications: Essential hypertension, benign Take 1 tablet (1.25 mg) by mouth once daily in the morning. 90 tablet 3 04/02/2023 04/01/2024 Active letrozole 2.5 mg oral tablet (15 sources) Aromatase Inhibitor Start: 01-15-2023 take 2.5 [...] daily. levothyroxine sodium 0.112 mg oral tablet (14 sources) l-Thyroxine Start: 9 take 112 ug by mouth once daily in the morning Levothyroxine Active 112 MCG PO Every morning January 15, 2023 12:00am levothyroxine (T irosint) 112 mcg capsule Take by mouth once daily in the morning. Take before meals. 0 Active take 1 tablet by flori th once daily in the morning Levothyroxine Sodium 112 MCG 1 tablet in the morning on an empty stomach Orally Once a day Active End: 01-22-2023 take 1 capsule by mouth once daily before mealtime levothyroxine (Tirosint) 25 mcg capsule Take 1 capsule (25 mcg) by mouth once daily in the morning. Take before meals. 0 01/22/2023 Discontinued (Other) Comment on above: Take 112 mcg by mout h once daily. montelukast 10 mg oral tablet (13 sources) Leukotriene Receptor Antagonist Start: 07-05-19 take 10 mg by mouth once daily at bedtime Montelukast Active 10 MG PO Daily at bedtime January 15, 2023 12:00am Comment on above: Take 10 mg by mouth daily at bedtime. nitroglycerin 0.4 mg sublingual tablet (5 sources) Nitrate Vasodilator Start: 01-19-20 nitroglycerin (Nitrostat) 0.[address] 1 tablet (0.4 mg) under the tongue every 5 minutes if needed. 0 01/18/2023 Active Nitroglycerin 0. 4 MG as directed Sublingual Active [place] 3-6-9 - (3 sources) [place] 3-6-9 - as directed Orally Active omega-3 acid ethyl esters (care home) 1000 mg oral capsule (3 sources) omega-3 acid eth yl esters (Lovaza) 1 gram capsule Take 1 capsule (1 g) by mouth once daily. 0 Active Brisbane-3 Fatty Acids (1 source) Start: 01-16-20 take 1000 mg by mouth twice daily Brisbane-3 Fatty Acids Active 1000 MG PO Twice daily January 15, 2023 12:00am predniSONE 20 mg oral tablet (1 source) Start: 06-01-19 take 1 tablet by mouth every twelve hours prednisone 20 MG 1 tablet Orally Twice a day for 5 days May, Active ramipril 10 mg oral capsule (13 sources) Angiotensin Converting Enzyme Inhibitor Start: 01-16-20 take 10 mg by mouth once daily Ramipril Active 10 MG PO every day at noon January 15, 2023 12:00am Comment on above: Take 10 mg by mouth once daily. rosuvastatin calcium 20 mg oral tablet (13 sources) HMG-CoA Reductase Inhibitor Start: 05-04-19 take 20 mg by mouth once daily at bedtime Rosuvastatin Active 20 MG PO Daily at bedtime January 15, 2023 12:00am Comment on above: Take 20 mg by mouth once daily. For 30 days ticagrelor 90 mg oral tablet (5 sources) Start: 01-19-20 take 1 tablet by mouth twice daily Ticagrelor (Brilinta) 90 mg Tablet Active 90 MG PO Twice daily 180 90 January 18, 2023 12:00am traMADol hydrochloride 50 mg oral tablet (13 sources) Opioid Agonist Start: 01-16-20 take 50 [...] on above: Take 10 mg by mouth. ASCORBIC ACID/MULTIVIT-MIN (EMERGEN-C ORAL) (2 sources) ASCORBIC ACID/MULTIVIT-MIN (EMERGEN-C ORAL) Take by mouth. 0 Active Comment on above: Take by mouth. Baclofen (2 sources) gamma-Aminobutyric Acid-ergic Agonist BACLOFEN ORAL Take by mouth. 0 Active Comment on above: Take by mouth. cholecalciferol, vitamin D3, (VITAMIN D3 ORAL) (5 sources) Start: 12-01-2020 cholecalciferol, vitamin D3, (VITAMIN D3 ORAL) Refills(s) 0 0 12/01/2020 Active take 500 [IU] by mouth once emi y cholecalciferol, vitamin D3, (VITAMIN D3 ORAL) Take 500 Units by mouth once daily. 0 Active Comment on above: Refills(s) 0 cyclobenzaprine hydrochloride 10 mg oral tablet (2 sources) Muscle Relaxant Start: 019 cyclobenzaprine (FLEXERIL) 10 mg tablet Take 10 mg by mouth as needed. 3 07/11/2018 Active Comment on above: Take 10 mg by mouth as needed. Magnesium (2 sources) MAGNESIUM ORAL T delia by mouth. 0 Active Comment on above: Take by mouth. oxaprozin 600 mg oral tablet (2 sources) Nonsteroidal Anti-inflammatory Drug Start: 020 take 1 tablet by mouth twice daily oxaprozin (DAYPRO) 600 mg tablet Take 600 mg by mouth twice daily. 0 04/22/2019 Active Comment on above: Take 600 mg by mouth twice daily. Potassium (2 sources) POTASSIUM ORAL T delia by mouth. 0 Active Comment on above: Take by mouth. Probiotic Acidophilus - (7 sources) Probiotic Acidop hilus - as directed Orally Not-Taking/PRN Probiotic Acidop [...] disease (20 sources) Atherosclerotic heart disease of samish coronary artery without angina pectoris; 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: [Angina pectoris] Onset: 3 12-25-2022 Chronic Coronary atherosclerosis and other heart disease (3 sources) Stented coronary artery; 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: [Presence of coronary angioplasty implant and graft] Onset: 4 04-02-2023 Episodic Diabetes mellitus without complication (1 source) Impaired fasting glucose; 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: [IMPAIRED FASTING GLUCOSE] Onset: 3 Episodic Disorders of lipid metabolism (15 sources) Pure hypercholesterolemia, unspecified; 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: [Pure hyperglyceridemia] Onset: 3 12-25-2022 Chronic Essential hypertension (11 sources) Benign essential hypertension; 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: [Essential (primary) [...] Other prison (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; 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: [OTH 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 THERAPY] Onset: 3 Episodic Other [...] soft tissue disorders] Onset: 3 Episodic Other diseases of kidney [...] Episodic Other nutritional; endocrine; and metabolic disorders (5 sources) Body mass index 40+ - severely obese; 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: [Morbid (severe) obesity due to excess calories] Onset: 7 07-17-2016 Chronic Other nutritional; endocrine; and metabolic disorders (1 source) Morbid obesity; 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: [Morbid (severe) obesity due to excess calories] 04-02-2023 Chronic Other nutritional; endocrine; and metabolic disorders (2 sources) Morbid (severe) obesity due to excess calories; 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: [Morbid (severe) obesity due to excess calories (CMS/HCC)] Onset: 4 Chronic Other nutritional; endocrine; and metabolic disorders (2 sources) Body mass index (BMI) 40.0-44.9, adult; 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: [Body mass index (BMI) 40.0-44.9, adult (CMS/HCC)] Onset: 3 Chronic Residual codes; unclassified (1 source) Acquired absence [...] 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: [CHEST PAIN UNSPECIFIED] Onset: 06-10-2022 Episodic Other screening for suspected conditions (not mental disorders or infectious disease) (20 sources) Patient encounter status; 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: [Encounter for other screening for malignant neoplasm of breast] Onset: 04-03-2022 Episodic Residual codes; unclassified (4 sources) Family history of ischemic heart disease and other diseases of the circulatory system; 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: [FAM HX ISCHEMIC HRT DZ OTH DZ CIRC] Onset: 10-31-2021 Episodic Unclassified (3 sources) Onset: 12-25-2022 Resolved: 01-22-2023 12-25-2022 Results Test Name Value Interpretation Reference Range Facility US venous duplex LE RTon US venous duplex LE RT [facility] [place] [address] Ultrasound Report Signed Patient: Katarina Camara MR#: [id number] 49 : 1945 Acct:[id number] Age/Sex: 77 / F ADM Date: 02/05/23 Loc: Room: Type: [facility] Attending Dr: Jacqueline Campos APRN Ordering Provider: [...] Eduardo Vallejo M.D.02/06/2023 9:55 AM Dictation Location: [place] [address] Tech: Jahaira Martinez Transcribed By: ITALO 02/06/23 0900 Dictated By: Jose Eduardo Vallejo MD 02/06/23 0954 Signed By: 02/06/23 0955 Normal [facility] Alanine aminotransferase [En zymatic activity/volume] in Serum or PlasmaOrdered By: Tamiko Zhou on 01-18-2023 ALT [Catalytic activity/Vol] 12 U/L 7-52 [facility] Albumin [Mass/volume] in Ser um or Plasma by Bromocresol green (BCG) dye binding methoOrdered By: Tamiko Zhou on 01-18-2023 Albumin BCG dye [Mass/Vol] 3.6 g/dL 3.5-5.7 [facility] Alkaline phosphatase [Enzyma tic activity/volume] in Serum or PlasmaOrdered By: Tamiko Zhou on 01-18-2023 ALP [Catalytic activity/Vol] 59 U/L 34-104 [facility] Aspartate aminotransferase [ Enzymatic activity/volume] in Serum or PlasmaOrdered By: Tamiko Zhou on 01-18-2023 AST [Catalytic activity/Vol] 18 U/L 13-39 [facility] Bilirubin.total [Mass/volume ] in Serum or PlasmaOrdered By: Tamiko Zhou on 01-18-2023 Bilirubin [Mass/Vol] 1.1 mg/dL 0.3-1.0 [facility] Calcium [Mass/volume] in Ser um or PlasmaOrdered By: Tamiko Zhou on 01-18-2023 Calcium [Mass/Vol] 8.1 mg/dL 8.6-10.3 [facility] Carbon dioxide, total [Moles /volume] in Serum or PlasmaOrdered By: Tamiko Zhou on 01-18-2023 CO2 [Moles/Vol] 27.6 mmol/L 21.0-31.0 [facility] Chloride [Moles/volume] in S live or PlasmaOrdered By: Tamiko Zhou on 01-18-2023 Chloride [Moles/Vol] 101 mmol/L 98-107 [facility] Comprehensive Metabolic Pane tee 01-18-2023 Albumin [Mass/Vol] 3.6 g/dL Normal 3.5-5.7 [facility] Comment on above: Performed By: #### C MP ####[address] [address] [place] [address] [facility] Albumin/Globulin [Mass ratio] 1.7 {ratio} Normal [facility] Comment on above: Performed By: #### C MP ####[facility] [place] [address] [facility] ALP [Catalytic activity/Vol] 59 U/L Normal 34-104 [facility] Comment on above: Performed By: #### C MP ####[place] [address] [place] [address] [facility] ALT [Catalytic activity/Vol] 12 U/L Normal 7-52 [facility] Comment on above: Performed By: #### C MP ####[address] [address] [facility] Anion gap [Moles/Vol] 10.7 mmol/L Normal 6.0-15.0 [facility] Comment on above: Performed By: #### C MP ####[address] [address] [facility] AST [Catalytic activity/Vol] 18 U/L Normal 13-39 [facility] Comment on above: Performed By: #### C MP ####[address] [address] [facility] Bilirubin [Mass/Vol] 1.1 mg/dL High 0.3-1.0 [facility] Comment on above: Performed By: #### C MP ####[address] [address] [facility] Calcium [Mass/Vol] 8.1 mg/dL Low 8.6-10.3 [facility] Comment on above: Performed By: #### C MP ####[address] [address] [facility] Chloride [Moles/Vol] 101 mmol/L Normal 98-107 [facility] Comment on above: Performed By: #### C MP ####[address] [address] [facility] CO2 [Moles/Vol] 27.6 mmol/L Normal 21.0-31.0 [facility] Comment on above: Performed By: #### C MP ####[address] [place] [address] [facility] Creatinine [Mass/Vol] 0.84 mg/dL Normal 0.60-1.20 [facility] Comment on above: Performed By: #### C MP ####[place] [id number] [facility] Creatinine Clr Calc Pharmacy 64.28 [facility] Comment on above: Result Comment: PERF ORMED BY: [facility] [address] [place] [id number] PATHOLOGIST PIPE COVERER SHELLI CHARLES M.D. Performed By: #### C MP ####[address] GFR/1.73 sq M.predicted MDRD (S/P/Bld) [Vol rate/Area] mL/min/{1.73_m2} [facility] Comment on above: Performed By: #### C MP ####[place] [id number] [facility] Globulin (S) [Mass/Vol] 2.1 g/dL [facility] Comment on above: Performed By: #### C MP ####[place] [id number] [facility] Glucose [Mass/Vol] 115 mg/dL High 70-100 [facility] Comment on above: Result Comment: [place] Glucose Reference Range is dependent on time and content of last meal. Glucose of more than 200 mg/dL in a nonstressed, ambulatory subject supports the diagnosis of Diabetes Mellitus. ADA recommended reference range Performed By: #### C MP ####[place] [id number] [facility] Potassium [Moles/Vol] 3.3 mmol/L Low 3.5-5.1 [facility] Comment on above: Performed By: #### C MP ####[place] [id number] [facility] Protein [Mass/Vol] 5.7 g/dL Low 6.4-8.9 [facility] Comment on above: Performed By: #### C MP ####[place] [address] [place] [id number] [facility] Sodium [Moles/Vol] 136 mmol/L Normal 136-145 [facility] Comment on above: Performed By: #### C MP ####[facility] [place] [id number] [facility] Urea nitrogen [Mass/Vol] 7 mg/dL Normal 7-25 [facility] Comment on above: Performed By: #### C MP ####[place] [address] [place] [id number] [facility] Creatinine [Mass/volume] in Serum or PlasmaOrdered By: Tamiko Zhou on 01-18-2023 Creatinine [Mass/Vol] 0.84 mg/dL 0.60-1.20 [facility] ECG 12 lead ECGon 01-18-2023 ECG 12 lead ECG [facility] [address] [place] [address] [place] [address] Electrocardiograph Report Signed Patient: Katarina Camara MR#: [id number] [birth year] : 1945 Acct:[id number] Age/Sex: 77 / F ADM Date: 01/17/23 Loc: Room: Type: [facility] Attending Dr: Nani Calloway MD Ordering Provider: [...] Gary Dolan MD 1 03/21/22 0732 Normal [facility] Globulin Calc (S) [Mass/Vol] Ordered By: Tamiko Zhou on 01-18-2023 Globulin (S) [Mass/Vol] 2.1 g/dL [facility] Glucose [Mass/volume] in Ser um or PlasmaOrdered By: Tamiko Zhou on 01-18-2023 Glucose [Mass/Vol] 115 mg/dL 70-100 [facility] Comment on above: ADA recommended refe rence rangeRandom Glucose Reference Range is dependent on time and content of last meal. Glucose of more than 200 mg/dL in a nonstressed, ambulatory subject supports the diagnosis of Diabetes Mellitus. No Panel InformationOrdered By: Tamiko Zhou on 01-18-2023 Estimated GFR (CKD-EPI) > 60.0 mL/Min [facility] Creatinine Clearance (Chem 64.28 [facility] Potassium [Moles/volume] in Serum or PlasmaOrdered By: Tamiko Zhou on 01-18-2023 Potassium [Moles/Vol] 3.3 mmol/L 3.5-5.1 [facility] Protein [Mass/volume] in Ser um or PlasmaOrdered By: Tamiko Zhou on 01-18-2023 Protein [Mass/Vol] 5.7 g/dL 6.4-8.9 [facility] Serum or plasma albumin/glob ulin mass ratioOrdered By: Tamiko Zhou on 01-18-2023 Albumin/Globulin [Mass ratio] 1.7 {ratio} [facility] Serum or plasma anion gap de terminationOrdered By: Tamiko Zhou on 01-18-2023 Anion gap [Moles/Vol] 10.7 mmol/L 6.0-15.0 [facility] Sodium [Moles/volume] in Ser um or PlasmaOrdered By: Tamiko Zhou on 01-18-2023 Sodium [Moles/Vol] 136 mmol/L 136-145 [facility] Troponin I High Sensitivityo n 01-18-2023 Troponin I High Sensitivity 91.0 pg/mL Off scale high 0.0-15.0 [facility] Comment on above: Result Comment: Crit ical Result : Called to and read back by: QUIANAKALINA HUERTA at: 01/18/2023 07:02:29 by:[id number] PERFORMED BY: [place] [address] PATHOLOGIST PIPE COVERER SHELLI CHARLES M.D. Performed By: #### H S TROP ####[address] [place] [id number] [facility] Troponin I.cardiac [Mass/vol ume] in Serum or Plasma by Detection limit <= 0.01 ng/Ordered By: Tamiko Zhou on 01-18-2023 Troponin I.cardiac DL <= 0.01 ng/mL [Mass/Vol] 91.0 pg/mL 0.0-15.0 [facility] Comment on above: Critical Result : Ca lled to and read back by: QUIANA HUERTA at: 01/18/2023 07:02:29 by:[id number] Urea nitrogen [Mass/volume] in Serum or PlasmaOrdered By: Tamiko Zhou on 01-18-2023 Urea nitrogen [Mass/Vol] 7 mg/dL 09-25 [facility] ABO/Rh Retypeon 01-17-2023 ABO/RH Recheck Result Positive Normal [facility] Comment on above: Result Comment: PERF ORMED BY: [address] [address] PATHOLOGIST PIPE COVERER SHELLI CHARLES M.D. CT abdomen pelvis wo conon 1 03-19-2022 CT abdomen pelvis wo con [facility] Main [place] [id number] CT Scan Report Signed Patient: Katarina Camara MR#: [id number] [birth year] : 1945 Acct:[id number] Age/Sex: 77 / F ADM Date: 01/17/23 Loc: Room: [address] [place] [address] Type: REG SDC Attending Dr: Nani Calloway MD Copies to: Nani Calloway MD, [facility] Ordering Provider: Nani Calloway MD, [facility] Date of Service: 01/17/23 CT/CT abdomen pelvis [...] hematoma. Impression dictated by: Judd Gonzalez Jr., D.O.01/17/2023 7:40 PM Dictation Location: [place] [address] Transcribed By: [facility] 01/17/231939 Dictated By: Judd Gonzalez Jr, DO 01/17/231933 Signed By: 01/17/231939 Normal [facility] ECG 12 lead ECGon 01-17-2023 ECG 12 lead ECG [facility] [place] [address] Electrocardiograph Report Signed Patient: Katarina Camara MR#: [id number] [birth year] : 1945 Acct:[id number] Age/Sex: 77 / F ADM Date: 01/17/23 Loc: CL Room: Type: [facility] Attending Dr: Nani Calloway MD Ordering Provider: [...] Gary Dolan MD 1 03/21/22 0732 Normal [facility] Hematocrit Auto (Bld) [Volum e fraction]Ordered By: Tamiko Zhou on 01-17-2023 Hematocrit (Bld) [Volume fraction] 40.6 % 34.0-46.4 [facility] Hemoglobin [Mass/volume] in BloodOrdered By: Tamiko Zhou on 01-17-2023 Hemoglobin (Bld) [Mass/Vol] 13.4 g/dL 11.8-15.4 [facility] Hemoglobin and Hematocriton 01-17-2023 Hematocrit (Bld) [Volume fraction] 40.6 % Normal 34.0-46.4 [facility] Comment on above: Result Comment: PERF ORMED BY: [facility] [address] [place] [id number] PATHOLOGIST PIPE COVERER SHELLI CHARLES M.D. Performed By: #### H H ####[facility] [place] [id number] [facility] Hemoglobin (Bld) [Mass/Vol] 13.4 g/dL Normal 11.8-15.4 [facility] Comment on above: Performed By: #### H H ####[place] [address] [place] [id number] [facility] Type and Screenon 11-16-2023 ABO and Rh group Nom (Bld) Blood group O Rh(D) positive Normal [facility] Activated partial thrombopla stin time (aPTT) in platelet poor plasma by coagulation aOrdered By: Nani Calloway on 01-15-2023 aPTT Coag (PPP) [Time] 26.9 s 25.1-36.5 [facility] Comment on above: A hematocrit value g reater than 55% may lead to inaccurate results in coagulation testing. Patients having hematocrit values >55% require a special collection tube for coagulation studies. Please contact the laboratory at [phone] for redraw instructions. Basophils Auto (Bld) [#/Vol] Ordered By: Nani Calloway on 01-15-2023 Basophils (Bld) [#/Vol] 0.0 10*3/uL 0.0-0.2 [facility] Basophils/100 WBC Auto (Bld) Ordered By: Nani Calloway on 01-15-2023 Basophils/100 WBC (Bld) 0.6 % . [facility] [facility] Blood Urea Nitrogenon 2022 Urea nitrogen [Mass/Vol] 9 mg/dL Normal 7-25 [facility] Comment on above: Performed By: #### P P, BUN, CBC, CREAT, LIPID, LYTES #### [address] Carbon dioxide, total [Moles /volume] in Serum or PlasmaOrdered By: Nani Calloway on 01-15-2023 CO2 [Moles/Vol] 29.9 mmol/L 21.0-31.0 [facility] Chloride [Moles/volume] in S live or PlasmaOrdered By: Nani Calloway on 01-15-2023 Chloride [Moles/Vol] 105 mmol/L 98-107 [facility] Cholesterol [Mass/volume] in Serum or PlasmaOrdered By: Nani Calloway on 01-15-2023 Cholesterol [Mass/Vol] 155 mg/dL 140-200 [facility] Comment on above: Chol less than 200 m g/dl low riskChol 201-239 mg/dl borderline riskChol 240 mg/dl and greater high risk Cholesterol in LDL Calc [Mas s/Vol]Ordered By: Nani Calloway on 01-15-2023 Cholesterol in LDL [Mass/Vol] 70 mg/dL 0-100 [facility] Comment on above: LDL ATP III CLASSIFI CATIONLDL less than 100 mg/dL OptimalLDL 100-129 mg/dL Near or above optimalLDL 130-159 mg/dL Borderline highLDL 160-189 mg/dL HighLDL greater than 189 mg/dL Very high Cholesterol in VLDL Calc [Ma ss/Vol]Ordered By: Nani Calloway on 01-15-2023 Cholesterol in VLDL [Mass/Vol] 32 mg/dL [facility] Coagulation Profileon 2022 aPTT Coag (Bld) [Time] 26.9 s Normal 25.1-36.5 [facility] Comment on above: Result Comment: A he matocrit value greater than 55% may lead to inaccurate results in coagulation testing. Patients having hematocrit values >55% require a special collection tube for coagulation studies. Please contact the laboratory at [phone] for redraw instructions. PERFORMED BY: [facility] [address] [place] [address] PATHOLOGIST PIPE COVERER SHELLI CHARLES M.D. Performed By: #### P P, BUN, CBC, CREAT, LIPID, LYTES ####[address] [place] [address] [facility] INR Coag (PPP) [Relative time] 0.9 {INR} Normal [facility] Comment on above: Result Comment: INR Therapeutic [...] P P, BUN, CBC, CREAT, LIPID, LYTES ####[address] [address] [place] [address] [facility] PT Coag (PPP) [Time] 10.3 s Normal 9.0-12.9 [facility] Comment on above: Result Comment: A he matocrit value greater than 55% may lead to inaccurate results in coagulation testing. Patients having hematocrit values >55% require a special collection tube for coagulation studies. Please contact the laboratory at [phone] for redraw instructions. Performed By: #### P P, BUN, CBC, CREAT, LIPID, LYTES ####[facility] Complete Blood Count Auto Di ffon 01-15-2023 Basophils (Bld) [#/Vol] 0.0 10*3/uL Normal 0.0-0.2 [facility] Comment on above: Result Comment: PERF ORMED BY: [place] [address] PATHOLOGIST PIPE COVERER SHELLI CHARELS M.D. Performed By: #### P P, BUN, CBC, CREAT, LIPID, LYTES #### [address] Basophils/100 WBC (Bld) 0.6 % Normal . [facility] Comment on above: Performed By: #### P P, BUN, CBC, CREAT, LIPID, LYTES #### [address] Eosinophils (Bld) [#/Vol] 0.2 10*3/uL Normal 0.0-0.45 [facility] Comment on above: Performed By: #### P P, BUN, CBC, CREAT, LIPID, LYTES #### [address] Eosinophils/100 WBC (Bld) 2.5 % Normal . [facility] Comment on above: Performed By: #### P P, BUN, CBC, CREAT, LIPID, LYTES #### [address] Erythrocyte distribution width (RBC) [Ratio] 14.4 % Normal 11.9-15.3 [facility] Comment on above: Performed By: #### P P, BUN, CBC, CREAT, LIPID, LYTES #### [address] Hematocrit (Bld) [Volume fraction] 41.4 % Normal 34.0-46.4 [facility] Comment on above: Performed By: #### P P, BUN, CBC, CREAT, LIPID, LYTES #### [address] Hemoglobin (Bld) [Mass/Vol] 13.8 g/dL Normal 11.8-15.4 [facility] Comment on above: Performed By: #### P P, BUN, CBC, CREAT, LIPID, LYTES #### [address] Lymphocytes (Bld) [#/Vol] 1.6 10*3/uL Normal 1.00-4.8 [facility] Comment on above: Performed By: #### P P, BUN, CBC, CREAT, LIPID, LYTES #### [address] Lymphocytes/100 WBC (Bld) 22.8 % Normal . [facility] Comment on above: Performed By: #### P P, BUN, CBC, CREAT, LIPID, LYTES #### [address] MCH (RBC) [Entitic mass] 30.5 pg Normal 24.7-34.3 [facility] Comment on above: Performed By: #### P P, BUN, CBC, CREAT, LIPID, LYTES #### [address] MCV (RBC) [Entitic vol] 91.4 fL Normal 80-100 [facility] Comment on above: Performed By: #### P P, BUN, CBC, CREAT, LIPID, LYTES #### [address] Mean Corpuscular HGB Conc 33.4 g/dL Normal 32.0-35.0 [facility] Comment on above: Performed By: #### P P, BUN, CBC, CREAT, LIPID, LYTES #### [address] Monocytes (Bld) [#/Vol] 0.6 10*3/uL Normal 0.0-0.8 [facility] Comment on above: Performed By: #### P P, BUN, CBC, CREAT, LIPID, LYTES #### [address] Monocytes/100 WBC (Bld) 8.3 % Normal . [facility] Comment on above: Performed By: #### P P, BUN, CBC, CREAT, LIPID, LYTES #### [address] Neutrophils (Bld) [#/Vol] 4.6 10*3/uL Normal 1.8-7.7 [facility] Comment on above: Performed By: #### P P, BUN, CBC, CREAT, LIPID, LYTES #### [address] Neutrophils/100 WBC (Bld) 65.8 % Normal . [facility] Comment on above: Performed By: #### P P, BUN, CBC, CREAT, LIPID, LYTES #### [address] NRBC% 0.2 /100{WBC} Normal 0-0.5 [facility] Comment on above: Performed By: #### P P, BUN, CBC, CREAT, LIPID, LYTES #### [address] Platelet mean volume (Bld) [Entitic vol] 8.8 fL Normal 6.3-10.7 [facility] Comment on above: Performed By: #### P P, BUN, CBC, CREAT, LIPID, LYTES #### [address] Platelets (Bld) [#/Vol] 181 10*3/uL Normal 150-450 [facility] Comment on above: Performed By: #### P P, BUN, CBC, CREAT, LIPID, LYTES #### [address] [place] [address] [place] RBC (Bld) [#/Vol] 4.53 10*6/uL Normal 3.60-5.00 [facility] Comment on above: Performed By: #### P P, BUN, CBC, CREAT, LIPID, LYTES #### [address] WBC (Bld) [#/Vol] 7.0 10*3/uL Normal 3.8-11.6 [facility] Comment on above: Performed By: #### P P, BUN, CBC, CREAT, LIPID, LYTES #### [address] Creatinineon 01-15-2023 Creatinine [Mass/Vol] 1.02 mg/dL Normal 0.60-1.20 [facility] Comment on above: Performed By: #### P P, BUN, CBC, CREAT, LIPID, LYTES #### [address] GFR/1.73 sq M.predicted MDRD (S/P/Bld) [Vol rate/Area] 57.371 mL/min/{1.73_m2} Normal [facility] Comment on above: Performed By: #### P P, BUN, CBC, CREAT, LIPID, LYTES #### [address] Creatinine [Mass/volume] in Serum or PlasmaOrdered By: Nani Calloway on 01-15-2023 Creatinine [Mass/Vol] 1.02 mg/dL 0.60-1.20 [facility] ECG 12 lead ECGon 01-15-2023 ECG 12 lead ECG [facility] Main [place] [address] [place] [address] Electrocardiograph Report Signed Patient: Katarina Camara MR#: [id number] : 1945 Acct:[id number] Age/Sex: 77 / F ADM Date: 01/15/23 Loc: Room: Type: [facility] CLI Attending Dr: Nani Calloway MD Ordering Provider: Nani Calloway MD, [facility] Date of Service: 01/15/23 ECG/ECG 12 lead [...] previous ECGs available Confirmed by JAD SUH [facility], SHANELL ([id number]) on 01/16/2023 12:23:08 PM Referred By: BRODIE Electronically Signed By:SHANELL ROYAL MD [facility] Transcribed By: MUS Signed By Niraj Royal MD 01/16/23 1223 Normal [facility] Electrolyteson 01-15-2023 Anion gap [Moles/Vol] 9.1 mmol/L Normal 6.0-15.0 [facility] Comment on above: Performed By: #### P P, BUN, CBC, CREAT, LIPID, LYTES #### [facility] [address] [place] [address] [place] Chloride [Moles/Vol] 105 mmol/L Normal 98-107 [facility] Comment on above: Performed By: #### P P, BUN, CBC, CREAT, LIPID, LYTES #### [facility] [address] [place] [address] [place] CO2 [Moles/Vol] 29.9 mmol/L Normal 21.0-31.0 [facility] Comment on above: Performed By: #### P P, BUN, CBC, CREAT, LIPID, LYTES #### [facility] [address] [place] [address] [place] Potassium [Moles/Vol] 4.0 mmol/L Normal 3.5-5.1 [facility] Comment on above: Performed By: #### P P, BUN, CBC, CREAT, LIPID, LYTES #### [facility] [address] [place] [place] Sodium [Moles/Vol] 140 mmol/L Normal 136-145 [facility] Comment on above: Performed By: #### P P, BUN, CBC, CREAT, LIPID, LYTES #### [facility] [address] Eosinophils Auto (Bld) [#/Vo l]Ordered By: Nani Macdonaldahim on 01-15-2023 Eosinophils (Bld) [#/Vol] 0.2 10*3/uL 0.0-0.45 [facility] Eosinophils/100 WBC Auto (Bl d)Ordered By: [facility] on 01-15-2023 Eosinophils/100 WBC (Bld) 2.5 % . [facility] Erythrocyte distribution wid th Auto (RBC) [Ratio]Ordered By: [facility] on 01-15-2023 Erythrocyte distribution width (RBC) [Ratio] 14.4 % 11.9-15.3 [facility] Hematocrit Auto (Bld) [Volum e fraction]Ordered By: [facility] on 01-15-2023 Hematocrit (Bld) [Volume fraction] 41.4 % 34.0-46.4 [facility] Hemoglobin [Mass/volume] in BloodOrdered By: [facility] on 01-15-2023 Hemoglobin (Bld) [Mass/Vol] 13.8 g/dL 11.8-15.4 [facility] INR in Platelet poor plasma by Coagulation assayOrdered By: [facility] on 01-15-2023 INR Coag (PPP) [Relative time] 0.9 {INR} [facility] Comment on above: INR Therapeutic Rang e [...] erythrocytes in Blood by Automated counOrdered By: Cardoza Calloway on 01-15-2023 WBC corrected for nucl RBC Auto (Bld) [#/Vol] 7.0 10*3/uL 3.8-11.6 [facility] Lipid Panelon 01-15-2023 Cholesterol [Mass/Vol] 155 mg/dL Normal 140-200 [facility] Comment on above: Result Comment: Chol less than 200 mg/dl low risk Chol 201-239 mg/dl borderline risk Chol 240 mg/dl and greater high risk Performed By: #### P P, BUN, CBC, CREAT, LIPID, LYTES #### [facility] [address] Cholesterol in HDL [Mass/Vol] 53 mg/dL Normal 23-92 [facility] Comment on above: Result Comment: HDL CHOL ATP-III CLASSIFICATION Cardiovascular Risk HDL > or equal to 60 mg/dL LOW HDL < 40 mg/dL HIGH Performed By: #### P P, BUN, CBC, CREAT, LIPID, LYTES #### [facility] [address] Cholesterol.total/Chol esterol in HDL [Mass ratio] 2.9 {ratio} Normal <5.0 [facility] Comment on above: Result Comment: PERF ORMED BY: [place] [address] PATHOLOGIST PIPE COVERER SHELLI CHARLES M.D. Performed By: #### P P, BUN, CBC, CREAT, LIPID, LYTES #### [address] LDL Cholesterol,Calculated 70 mg/dL Normal 0-100 [facility] Comment on above: Result Comment: LDL ATP III CLASSIFICATION LDL less than 100 mg/dL Optimal LDL 100-129 mg/dL Near or above optimal LDL 130-159 mg/dL Borderline high LDL 160-189 mg/dL High LDL greater than 189 mg/dL Very high Performed By: #### P P, BUN, CBC, CREAT, LIPID, LYTES #### [facility] [address] Triglyceride w/Reflex 161 mg/dL High 0-149 [facility] Comment on above: Result Comment: TRIG ATP III CLASSIFICATION TRIG less than 150 mg/dL Normal TRIG 150-199 mg/dL Borderline high TRIG 200-500 mg/dL High TRIG greater than 500 mg/dL Very high Standard traceable to the Center for Disease Conrtrol and Prevention (CDC) test method. Performed By: #### P P, BUN, CBC, CREAT, LIPID, LYTES #### [facility] [address] VLDL CHOLESTEROL 32 mg/dL Normal [facility] Comment on above: Performed By: #### P P, BUN, CBC, CREAT, LIPID, LYTES #### [facility] [address] Lymphocytes Auto (Bld) [#/Vo l]Ordered By: Nani Calloway on 01-15-2023 Lymphocytes (Bld) [#/Vol] 1.6 10*3/uL 1.00-4.8 [facility] Lymphocytes/100 WBC Auto (Bl d)Ordered By: Nani Calloway on 01-15-2023 Lymphocytes/100 WBC (Bld) 22.8 % . [facility] MCH Auto (RBC) [Entitic mass ]Ordered By: Nani Calloway on 01-15-2023 MCH (RBC) [Entitic mass] 30.5 pg 24.7-34.3 [facility] MCHC Auto (RBC) [Mass/Vol]Or dered By: Nani Calloway on 01-15-2023 MCHC (RBC) [Mass/Vol] 33.4 g/dL 32.0-35.0 [facility] MCV Auto (RBC) [Entitic vol] Ordered By: Nani Calloway on 01-15-2023 MCV (RBC) [Entitic vol] 91.4 fL 80-100 [facility] Monocytes Auto (Bld) [#/Vol] Ordered By: Nani Calloway on 01-15-2023 Monocytes (Bld) [#/Vol] 0.6 10*3/uL 0.0-0.8 [facility] Monocytes/100 WBC Auto (Bld) Ordered By: Nani Calloway on 01-15-2023 Monocytes/100 WBC (Bld) 8.3 % . [facility] Neutrophils Auto (Bld) [#/Vo l]Ordered By: Nani Calloway on 01-15-2023 Neutrophils (Bld) [#/Vol] 4.6 10*3/uL 1.8-7.7 [facility] Neutrophils/100 WBC Auto (Bl d)Ordered By: Nani Calloway on 01-15-2023 Neutrophils/100 WBC (Bld) 65.8 % . [facility] No Panel InformationOrdered By: Nani Calloway on 01-15-2023 Estimated GFR (CKD-EPI) 57.371 mL/Min [facility] Creatinine Clearance (Chem N/A [facility] Nucleated erythrocytes [Pres ence] in Blood by Automated countOrdered By: Nani Calloway on 01-15-2023 Nucleated RBC Auto Ql (Bld) 0.2 /100{WBC} 0-0.5 [facility] Platelet mean volume Auto (B ld) [Entitic vol]Ordered By: Nani Calloway on 01-15-2023 Platelet mean volume (Bld) [Entitic vol] 8.8 fL 6.3-10.7 [facility] Platelets Auto (Bld) [#/Vol] Ordered By: Nani Calloway on 01-15-2023 Platelets (Bld) [#/Vol] 181 10*3/uL 150-450 [facility] Potassium [Moles/volume] in Serum or PlasmaOrdered By: Nani Calloway on 01-15-2023 Potassium [Moles/Vol] 4.0 mmol/L 3.5-5.1 [facility] Prothrombin time (PT)Ordered By: Nani Calloway on 01-15-2023 PT Coag (PPP) [Time] 10.3 s 9.0-12.9 [facility] Comment on above: A hematocrit value g reater than 55% may lead to inaccurate results in coagulation testing. Patients having hematocrit values >55% require a special collection tube for coagulation studies. Please contact the laboratory at [phone] for redraw instructions. RBC Auto (Bld) [#/Vol]Ordere d By: Nani Calloway on 01-15-2023 RBC (Bld) [#/Vol] 4.53 10*6/uL 3.60-5.00 [facility] Serum or plasma anion gap de terminationOrdered By: Nani Calloway on 01-15-2023 Anion gap [Moles/Vol] 9.1 mmol/L 6.0-15.0 [facility] Serum or plasma high density lipoprotein (HDL) cholesterol measurementOrdered By: Nani Calloway on 01-15-2023 Cholesterol in HDL [Mass/Vol] 53 mg/dL 23-92 [facility] Comment on above: HDL CHOL ATP-III CLA SSIFICATION Cardiovascular RiskHDL > or equal to 60 mg/dL LOWHDL < 40 mg/dL HIGH Serum or plasma total choles terol/high density lipoprotein (HDL) cholesterol mass ratOrdered By: Nani Calloway on 01-15-2023 Cholesterol.total/Chol esterol in HDL [Mass ratio] 2.9 {ratio} <5.0 [facility] Sodium [Moles/volume] in Ser um or PlasmaOrdered By: Nani Calloway on 01-15-2023 Sodium [Moles/Vol] 140 mmol/L 136-145 [facility] Triglyceride [Mass/volume] i n Serum or PlasmaOrdered By: Nani Calloway on 01-15-2023 Triglyceride [Mass/Vol] 161 mg/dL 0-149 [facility] Comment on above: TRIG ATP III CLASSIF ICATIONTRIG less than 150 mg/dL NormalTRIG 150-199 mg/dL Borderline highTRIG 200-500 mg/dL High TRIG greater than 500 mg/dL Very highStandard traceable to the Center for Disease Conrtrol and Prevention (CDC) test method. Urea nitrogen [Mass/volume] in Serum or PlasmaOrdered By: Nani Calloway on 01-15-2023 Urea nitrogen [Mass/Vol] 9 mg/dL 7-25 [facility] WBC Auto (Bld) [#/Vol]Ordere d By: Nani Calloway on 01-15-2023 WBC (Bld) [#/Vol] 7.0 10*3/uL 3.8-11.6 [facility] CARDIAC STRESS TESTon 2022 Ordered by an unspec ified provider. [facility] ECG 12 Leadon 12-25-2022 ECG reveals normal s inus rhythm with diffuse nonspecific ST and T changes [facility] Work Phone: NM ag perf SPECT rest stron 11-02-2022 NM ag perf SPECT rest str [address] [address] Nuclear Medicine Report Signed Patient: Katarina Camara MR#: [id number] : 1945 Acct:[id number] Age/Sex: 77 / F ADM Date: 10/31/22 Loc: Room: Type: [facility] Attending Dr: Shellie Jennings ACTING PROFESSOR-C Copies to: Nani Calloway MD, [facility] JOHANNA Nolan Ordering Provider: JOHANNA Nolan Date [...] myocardial ischemia. Please correlate clinically. Transcribed By: NTS 11/02/22 1321 Dictated By: Nani Calloway MD, [facility] 11/02/22 1141 Signed By: 11/10/22 1346 Normal [facility] STR cardiac stress/cardiolon 11-02-2022 STR cardiac stress/cardiol [facility] [place] [address] Cardiac Stress Test Signed Patient: Katarina Camara MR#: [id number] : 1945 Acct:[id number] Age/Sex: 77 / F ADM Date: 10/31/22 Loc: Room: Type: [facility] Attending Dr: Shellie SPENCER Copies to: Nani Calloway MD, [facility] JOHANNA Nolan Ordering Provider: JOHANNA Nolan Date [...] reported separately by Nuclear Cardiology. Transcribed By: NTS 11/02/221957 Dictated By: Nani Calloway MD, [facility] 11/02/22 1455 Signed By: 11/10/22 1346 [facility] Consultation Noteon 06-28-19 Consultation Note [id number] Normal [facility] CBC AUTO DIFFon 06-11-2022 BASO # 0.1 103/ul Normal 0.0-0.1 [facility] Comment on above: Performed By: #### C BC #### [facility] [address] [address] [address] Mag Charles Basophils/100 WBC (Bld) 0.7 % Normal 0.2-2.0 [facility] Comment on above: Performed By: #### C BC #### [facility] [address] [place] [address] Dr. Mag Charles EO # 0.1 103/ul Normal 0.0-0.7 [facility] Comment on above: Performed By: #### C BC #### [facility] [address] [place] [address] Dr. Mag Charles Eosinophils/100 WBC (Bld) 1.1 % Normal 0.9-7.0 [facility] Comment on above: Performed By: #### C BC #### [facility] [address] [place] [address] Dr. Mag Charles Erythrocyte distribution width (RBC) [Ratio] 13.4 % Normal 11.0-15.0 [facility] Comment on above: Performed By: #### C BC #### [facility] [address] [place] [address] Dr. Mag Charles Hematocrit (Bld) [Volume fraction] 46.8 % Normal 36.0-48.0 [facility] Comment on above: Performed By: #### C BC #### [facility] [address] [place] [address] Dr. Mag Charles Hemoglobin (Bld) [Mass/Vol] 15.1 g/dL Normal 12.0-16.0 [facility] Comment on above: Performed By: #### C BC #### [facility] [address] [place] [address] Dr. Mag Charles IG # 0.09 10e3/ul Critically high 0.00-0.03 [facility] Comment on above: Performed By: #### C BC #### [facility] [address] [place] [address] Dr. Mag Charles IG % 0.8 % Critically high 0.0-0.5 [facility] Comment on above: Performed By: #### C BC #### [facility] [address] [place] [address] Dr. Mag Charles LYMPH # 3.8 103/ul Normal 1.2-3.8 [facility] Comment on above: Performed By: #### C BC #### [facility] [address] [place] [address] Dr. Mag Charles Lymphocytes/100 WBC (Bld) 32.7 % Normal 20.5-60.0 [facility] Comment on above: Performed By: #### C BC #### [facility] [address] [place] [address] Dr. Mag Charles MANUAL DIFF REQ NO Normal [facility] Comment on above: Performed By: #### C BC #### [facility] [address] [place] [address] Dr. Mag Charles MCH (RBC) [Entitic mass] 30.3 pg Normal 26.7-34.0 [facility] Comment on above: Performed By: #### C BC #### [facility] [address] [place] [address] Dr. Mag Charles MCHC (RBC) [Mass/Vol] 32.3 g/dL Normal 29.9-35.2 [facility] Comment on above: Performed By: #### C BC #### [facility] [address] [place] [address] Dr. Mag Charles MCV (RBC) [Entitic vol] 93.8 fL Normal 81.0-99.0 [facility] Comment on above: Performed By: #### C BC #### [facility] [address] [place] [address] Dr. Mag Charles MONO # 1.1 103/ul Critically high 0.3-0.8 [facility] Comment on above: Performed By: #### C BC #### [facility] [address] [place] [address] Dr. Mag Charles Monocytes/100 WBC (Bld) 9.2 % Normal 1.7-12.0 [facility] Comment on above: Performed By: #### C BC #### [facility] [address] [place] [address] Dr. Mag Charles NEUT # 6.5 103/ul Normal 1.4-6.5 [facility] Comment on above: Performed By: #### C BC #### [facility] [address] [address] [address] Mag Charles Neutrophils/100 WBC (Bld) 55.5 % Normal 43.0-75.0 [facility] Comment on above: Performed By: #### C BC #### [facility] [address] [address] [address] Mag Charles Platelet mean volume (Bld) [Entitic vol] 9.9 fL Normal 9.5-13.5 [facility] Comment on above: Performed By: #### C BC #### [facility] [address] [place] [address] Dr. Mag Charles PLT 237 103/ul Normal 150-450 [facility] Comment on above: Performed By: #### C BC #### [facility] [address] [place] [address] Dr. Mag Charles RBC 4.99 106/ul Normal 4.20-5.40 [facility] Comment on above: Performed By: #### C BC #### [facility] [address] [address] [address] Mag Charles WBC 11.6 103/ul Critically high 4.0-11.0 [facility] Comment on above: Performed By: #### C BC #### [facility] [address] [place] [address] Dr. Mag Charles PROF CHEM 8 (BAS METB)on Anion gap [Moles/Vol] 10.2 mmol/L Normal [facility] Comment on above: Performed By: #### C VDTBH #### [facility] [address] [place] [address] Dr. Mag Charles Calcium [Mass/Vol] 8.5 mg/dL Normal 8.5-10.1 [facility] Comment on above: Performed By: #### C VDTBH #### [facility] [address] [address] [address] Mag Charles Chloride [Moles/Vol] 103 mmol/L Normal 98-107 [facility] Comment on above: Performed By: #### C VDTBH #### [facility] [address] [address] [address] Mag Charles CO2 [Moles/Vol] 30.7 mmol/L Normal 21.0-32.0 [facility] Comment on above: Performed By: #### C VDTBH #### [facility] [address] [address] [address] Mag Charles Creatinine [Mass/Vol] 1.01 mg/dL Normal 0.55-1.02 [facility] Comment on above: Performed By: #### C VDTBH #### [facility] [address] [place] [address] Dr. Mag Charles EGFR-AF NICARAGUAN >60 Normal >=60 [facility] Comment on above: Performed By: #### C VDTBH #### [facility] [address] [address] [address] Mag Charles EGFR-NON AF NICARAGUAN 54 mL/min/1.73m2 Critically low >=60 [facility] Comment on above: Performed By: #### C VDTBH #### [facility] [address] [place] [address] Dr. Mag Charles Glucose [Mass/Vol] 94 mg/dL Normal 74-106 [facility] Comment on above: Performed By: #### C VDTBH #### [facility] [address] [address] [address] Mag Charles Potassium [Moles/Vol] 3.9 mmol/L Normal 3.5-5.1 [facility] Comment on above: Performed By: #### C VDTBH #### [facility] [address] [address] [address] Mag Charles Sodium [Moles/Vol] 140 mmol/L Normal 136-145 [facility] Comment on above: Performed By: #### C VDTBH #### [facility] [address] [address] [address] Mag Charles Urea nitrogen [Mass/Vol] 17.0 mg/dL Normal 7.0-18.0 [facility] Comment on above: Performed By: #### C VDTBH #### [facility] [address] [address] Dr. Mag Charles Urea nitrogen/Creatinine [Mass ratio] 16.8 mg/mg Normal [facility] Comment on above: Performed By: #### C VDTBH #### [facility] [address] [place] [address] Dr. Mag Charles BNPon 06-10-2022 Natriuretic peptide B (Bld) [Mass/Vol] 51.0 pg/mL Normal <=900.0 [facility] Comment on above: Performed By: #### B ACTING PROFESSOR #### [facility] [address] [place] [address] Dr. Mag Charles CARDIAC NILO ADMITon 023 CK [Catalytic activity/Vol] 57 U/L Normal 26-192 [facility] Comment on above: Performed By: #### C FIONA, CMP #### [facility] [address] [place] [address] Dr. Mag Charles CK.MB [Mass/Vol] 1.72 ng/mL Normal <=3.60 [facility] Comment on above: Performed By: #### C FIONA, CMP #### [facility] [address] [place] [address] Dr. Mag Charles HSTROP 11.3 pg/mL Normal 4.0-51.3 [facility] Comment on above: Result Comment: CUT- OFF POINTS HAVE BEEN ESTABLISHED BASED ON THE FOURTH UNIVERSAL DEFINITIONS OF MYOCARDIAL INFARCTION. THE UPPER REFERENCE LIMIT (URL) OF TROPONIN, DEFINED THE 99TH PERCENTILE OF cTnI DISTRIBUTION IN A REFERENCE POPULATION, HAS BEEN CONFIRMED THE DECISION THRESHOLD FOR [place] DIAGNOSIS. Performed By: #### C FIONA, CMP #### [facility] [address] [place] [address] Dr. Mag Charles AG 62 ng/mL Normal 9-82 [facility] Comment on above: Performed By: #### C GEOVANIM, CMP #### [facility] [address] [place] [address] Dr. Mag Charles CBC AUTO DIFFon 06-10-2022 BASO # 0.1 103/ul Normal 0.0-0.1 [facility] Comment on above: Performed By: #### C VDTBH #### [facility] [address] [place] [address] Dr. Mag Charles Basophils/100 WBC (Bld) 0.5 % Normal 0.2-2.0 [facility] Comment on above: Performed By: #### C VDTBH #### [facility] [address] [place] [address] Dr. Mag Charles EO # 0.1 103/ul Normal 0.0-0.7 [facility] Comment on above: Performed By: #### C VDTBH #### [facility] [address] [place] [address] Dr. Mag Charles Eosinophils/100 WBC (Bld) 0.8 % Critically low 0.9-7.0 [facility] Comment on above: Performed By: #### C VDTBH #### [facility] [address] [place] [address] Dr. Mag Charles Erythrocyte distribution width (RBC) [Ratio] 13.5 % Normal 11.0-15.0 [facility] Comment on above: Performed By: #### C VDTBH #### [facility] [address] [place] [address] Dr. Mag Charles Hematocrit (Bld) [Volume fraction] 49.1 % Critically high 36.0-48.0 [facility] Comment on above: Performed By: #### C VDTBH #### [facility] [address] [place] [address] Dr. Mag Charles Hemoglobin (Bld) [Mass/Vol] 15.9 g/dL Normal 12.0-16.0 [facility] Comment on above: Performed By: #### C VDTBH #### [facility] [address] [place] [address] Dr. Mag Charles IG # 0.12 10e3/ul Critically high 0.00-0.03 [facility] Comment on above: Performed By: #### C VDTBH #### [facility] [address] [address] [address] Mag Charles IG % 1.1 % Critically high 0.0-0.5 [facility] Comment on above: Performed By: #### C VDTBH #### [facility] [address] [address] [address] Mag Charles LYMPH # 1.9 103/ul Normal 1.2-3.8 [facility] Comment on above: Performed By: #### C VDTBH #### [facility] [address] [place] [address] Dr. Mag Charles Lymphocytes/100 WBC (Bld) 18.1 % Critically low 20.5-60.0 [facility] Comment on above: Performed By: #### C VDTBH #### [facility] [address] [place] [address] Dr. Mag Charles MANUAL DIFF REQ NO Normal [facility] Comment on above: Performed By: #### C VDTBH #### [facility] [address] [place] [address] Dr. Mag Charles MCH (RBC) [Entitic mass] 30.1 pg Normal 26.7-34.0 [facility] Comment on above: Performed By: #### C VDTBH #### [facility] [address] [place] [address] Dr. Mag Charles MCHC (RBC) [Mass/Vol] 32.4 g/dL Normal 29.9-35.2 [facility] Comment on above: Performed By: #### C VDTBH #### [facility] [address] [place] [address] Dr. Mag Charles MCV (RBC) [Entitic vol] 93.0 fL Normal 81.0-99.0 [facility] Comment on above: Performed By: #### C VDTBH #### [facility] [address] [place] [address] Dr. Mag Charles MONO # 0.8 103/ul Normal 0.3-0.8 [facility] Comment on above: Performed By: #### C VDTBH #### [facility] [address] [place] [address] Dr. Mag Charles Monocytes/100 WBC (Bld) 7.7 % Normal 1.7-12.0 [facility] Comment on above: Performed By: #### C VDTBH #### [facility] [address] [place] [address] Dr. Mag Charles NEUT # 7.6 103/ul Critically high 1.4-6.5 [facility] Comment on above: Performed By: #### C VDTBH #### [facility] [address] [place] [address] Dr. Mag Charles Neutrophils/100 WBC (Bld) 71.8 % Normal 43.0-75.0 [facility] Comment on above: Performed By: #### C VDTBH #### [facility] [address] [place] [address] Dr. Mag Charles Platelet mean volume (Bld) [Entitic vol] 10.4 fL Normal 9.5-13.5 [facility] Comment on above: Performed By: #### C VDTBH #### [facility] [address] [place] [address] Dr. Mag Charles PLT 165 103/ul Normal 150-450 [facility] Comment on above: Performed By: #### C VDTBH #### [facility] [address] [place] [address] Dr. Mag Charles RBC 5.28 106/ul Normal 4.20-5.40 [facility] Comment on above: Performed By: #### C VDTBH #### [facility] [address] [place] [address] Dr. Mag Charles WBC 10.6 103/ul Normal 4.0-11.0 [facility] Comment on above: Performed By: #### C VDTBH #### [facility] [address] [place] [address] Dr. Mag Charles [facility]on SARS-CoV-2 (COVID-19) RNA ABIODUN+probe Ql (Unsp spec) Not detected Normal NOT DETECTED [facility] Comment on above: Result Comment: When diagnostic [...] for this test is supported by the [facility] of Health and Human Service's declaration that [...] used). Performed By: #### C VDTBH #### [facility] [address] [place] [address] Dr. Mag Charles D-DIMERon 06-10-2022 D-DIMER 0.49 mg/L FEU Normal <=0.59 [facility] Comment on above: Performed By: #### C VDTBH #### [facility] [address] [place] [address] Dr. Mag Charles D-DIMER COMMENTS SEE BELOW Normal [facility] Comment on above: Result Comment: Incr eases [...] and generalized hospitalization. Performed By: #### C VDTBH #### [facility] [address] [place] [address] Dr. Mag Charles PROF 14(COMP METB)on 023 Albumin [Mass/Vol] 3.5 g/dL Normal 3.4-5.0 [facility] Comment on above: Performed By: #### C MADM, CMP #### [facility] [address] [place] [address] Dr. Mag Charles Albumin/Globulin [Mass ratio] 1.1 {ratio} Normal [facility] Comment on above: Performed By: #### C MADM, CMP #### [facility] [address] [address] [address] Mag Charles ALP [Catalytic activity/Vol] 108 U/L Normal 46-116 [facility] Comment on above: Performed By: #### C MADM, CMP #### [facility] [address] [address] [address] Mag Charles ALT [Catalytic activity/Vol] 67 U/L Critically high 14-59 [facility] Comment on above: Performed By: #### C MADM, CMP #### [facility] [address] [address] [address] Mag Charles Anion gap [Moles/Vol] 12.6 mmol/L Normal [facility] Comment on above: Performed By: #### C MADM, CMP #### [facility] [address] [place] [address] Dr. Mag Charles AST [Catalytic activity/Vol] 117 U/L Critically high 15-37 [facility] Comment on above: Performed By: #### C GEOVANIM, CMP #### [facility] [address] [address] [address] Mag Charles Bilirubin [Mass/Vol] 0.7 mg/dL Normal 0.2-1.0 [facility] Comment on above: Performed By: #### C MADM, CMP #### [facility] [address] [address] [address] Mag Charles Calcium [Mass/Vol] 8.5 mg/dL Normal 8.5-10.1 [facility] Comment on above: Performed By: #### C MADM, CMP #### [facility] [address] [address] [address] Mag Charles Chloride [Moles/Vol] 99 mmol/L Normal 98-107 [facility] Comment on above: Performed By: #### C FIONA, CMP #### [facility] [address] [place] [address] Dr. Mag Charles CO2 [Moles/Vol] 28.5 mmol/L Normal 21.0-32.0 [facility] Comment on above: Performed By: #### C FIONA, CMP #### [facility] [address] [place] [address] Dr. Mag Charles Creatinine [Mass/Vol] 1.23 mg/dL Critically high 0.55-1.02 [facility] Comment on above: Performed By: #### C FIONA, CMP #### [facility] [address] [place] [address] Dr. Mag Charles EGFR-AF NICARAGUAN 52 mL/min/1.73m2 Critically low >=60 [facility] Comment on above: Performed By: #### C FIONA, CMP #### [facility] [address] [place] [address] Dr. Mag Charles EGFR-NON AF NICARAGUAN 43 mL/min/1.73m2 Critically low >=60 [facility] Comment on above: Performed By: #### C FIONA, CMP #### [facility] [address] [place] [address] Dr. Mag Charles Globulin (S) [Mass/Vol] 3.3 g/dL Normal [facility] Comment on above: Performed By: #### C FIONA, CMP #### [facility] [address] [place] [address] Dr. Mag Charles Glucose [Mass/Vol] 112 mg/dL Critically high 74-106 [facility] Comment on above: Performed By: #### C FIONA, CMP #### [facility] [address] [place] [address] Dr. Mag Charles Potassium [Moles/Vol] 4.1 mmol/L Normal 3.5-5.1 [facility] Comment on above: Performed By: #### C FIONA, CMP #### [facility] [address] [place], [place] [address] Dr. Mag Charles Protein [Mass/Vol] 6.8 g/dL Normal 6.4-8.2 [facility] Comment on above: Performed By: #### C FIONA, CMP #### [facility] [address] [place] [address] Dr. Mag Charles Sodium [Moles/Vol] 136 mmol/L Normal 136-145 [facility] Comment on above: Performed By: #### C FIONA, CMP #### [facility] [address] [place] [address] Dr. Mag Charles Urea nitrogen [Mass/Vol] 21.0 mg/dL Critically high 7.0-18.0 [facility] Comment on above: Performed By: #### C FIONA, CMP #### [facility] [address] [place] [address] Dr. Mag Charles Urea nitrogen/Creatinine [Mass ratio] 17.1 mg/mg Normal [facility] Comment on above: Performed By: #### C FIONA, CMP #### [facility] [address] [place] [address] Dr. Mag Charles TROPONIN, HIGH SENSITIVITYon 06-10-2022 HSTROP 9.3 pg/mL Normal 4.0-51.3 [facility] Comment on above: Result Comment: CUT- OFF POINTS HAVE BEEN ESTABLISHED BASED ON THE FOURTH UNIVERSAL DEFINITIONS OF MYOCARDIAL INFARCTION. THE UPPER REFERENCE LIMIT (URL) OF TROPONIN, DEFINED THE 99TH PERCENTILE OF cTnI DISTRIBUTION IN A REFERENCE POPULATION, HAS BEEN CONFIRMED THE DECISION THRESHOLD FOR [place] DIAGNOSIS. Performed By: #### C VDTB #### [facility] [address] [place] [address] Dr. Mag Charles HSTROP 10.4 pg/mL Normal 4.0-51.3 [facility] Comment on above: Result Comment: CUT- OFF POINTS HAVE BEEN ESTABLISHED BASED ON THE FOURTH UNIVERSAL DEFINITIONS OF MYOCARDIAL INFARCTION. THE UPPER REFERENCE LIMIT (URL) OF TROPONIN, DEFINED THE 99TH PERCENTILE OF cTnI DISTRIBUTION IN A REFERENCE POPULATION, HAS BEEN CONFIRMED THE DECISION THRESHOLD FOR [place] DIAGNOSIS. Performed By: #### H STRO #### [facility] [address] [place], [place] [address] Dr. Mag Charles HSTROP 11.0 pg/mL Normal 4.0-51.3 [facility] Comment on above: Result Comment: CUT- OFF POINTS HAVE BEEN ESTABLISHED BASED ON THE FOURTH UNIVERSAL DEFINITIONS OF MYOCARDIAL INFARCTION. THE UPPER REFERENCE LIMIT (URL) OF TROPONIN, DEFINED THE 99TH PERCENTILE OF cTnI DISTRIBUTION IN A REFERENCE POPULATION, HAS BEEN CONFIRMED THE DECISION THRESHOLD FOR [place] DIAGNOSIS. Performed By: #### [facility] #### [facility] [address] [address] [address] Mag Charles XR CHEST 1 Von [...] by: TAMIE RICHARDSON Date: 2022-06-10 09:21 Normal [facility] XR CHEST 2 Von 06-06-2022 XR [...] SUZE MARROQUIN Date: 2022-06-06 12:19 Normal [facility] COVID + FLU Quick Testingon 05-31-2022 SARS-CoV-2 (COVID-19) RNA ABIODUN+probe Ql (Unsp spec) Negative [employer] [facility] [employer] Other COVID + FLU Quick Testing Negative [employer] Other CBC W Auto Differential pane l (Bld)on 05-15-2022 Basophils (Bld) [#/Vol] 0.04 10*3/uL Normal <0.11 [facility] Comment on above: Order Comment: Speci men Type: BLOOD SPECIMEN Ordering Facility: [facility] Address: [address] [place] [address] Performed By: #### 5 7021-8 #### [facility] CLIA [id number] [address] [place] [address] Basophils/100 WBC (Bld) 0.7 % Normal [facility] Comment on above: Order Comment: Speci men Type: BLOOD SPECIMEN Ordering Facility: [facility] Address: [address] [place] [address] Performed By: #### 5 7021-8 #### [facility] CLIA [id number] [address] [place] [address] 15514 Differential cell count method Nom (Bld) Auto Normal [facility] Comment on above: Order Comment: Speci men Type: BLOOD SPECIMEN Ordering Facility: [facility] Address: [address] [place] [address] Performed By: #### 5 7021-8 #### [facility] CLIA [id number] [address] [place] [address]36 Eosinophils (Bld) [#/Vol] 0.15 10*3/uL Normal <0.46 [facility] Comment on above: Order Comment: Speci men Type: BLOOD SPECIMEN Ordering Facility: [facility] Address: [address] [place] [address] Performed By: #### 5 7021-8 #### [facility] CLIA [id number] [address] [place] [address]23 Eosinophils/100 WBC (Bld) 2.8 % Normal [facility] Comment on above: Order Comment: Speci men Type: BLOOD SPECIMEN Ordering Facility: [facility] Address: [address] [address] Performed By: #### 5 7021-8 #### [facility] CLIA [id number] [address] [place] [address]07 Erythrocyte distribution width (RBC) [Ratio] 12.7 % Normal 11.5-15.0 [facility] Comment on above: Order Comment: Speci men Type: BLOOD SPECIMEN Ordering Facility: [facility] Address: [address] [address] Performed By: #### 5 7021-8 #### [facility] CLIA [id number] [address] [place] [address] 01575 Hematocrit (Bld) [Volume fraction] 47.3 % High 36.0-46.0 [facility] Comment on above: Order Comment: Speci men Type: BLOOD SPECIMEN Ordering Facility: [facility] Address: [address] [address] Performed By: #### 5 7021-8 #### [facility] CLIA [id number] [address] [place] [address] 21150 Hemoglobin (Bld) [Mass/Vol] 15.4 g/dL Normal 11.5-15.5 [facility] Comment on above: Order Comment: Speci men Type: BLOOD SPECIMEN Ordering Facility: [facility] Address: [address] [address] Performed By: #### 5 7021-8 #### [facility] CLIA [id number] [address] [place] [address] 21873 Immature granulocytes (Bld) [#/Vol] 10*3/uL Normal <0.10 [facility] Comment on above: Order Comment: Speci men Type: BLOOD SPECIMEN Ordering Facility: [facility] Address: [address] [address] Performed By: #### 5 7021-8 #### [facility] CLIA [id number] [address] [place] [address] 91363 Immature granulocytes/100 WBC (Bld) 0.2 % Normal [facility] Comment on above: Order Comment: Speci men Type: BLOOD SPECIMEN Ordering Facility: [facility] Address: [address] [address] Performed By: #### 5 7021-8 #### [facility] CLIA [id number] [address] [place] [address] 79783 Lymphocytes (Bld) [#/Vol] 1.42 10*3/uL Normal 1.00-4.00 [facility] Comment on above: Order Comment: Speci men Type: BLOOD SPECIMEN Ordering Facility: [facility] Address: [address] [address] Performed By: #### 5 7021-8 #### [facility] CLIA [id number] [address] [place] [address] 16376 Lymphocytes/100 WBC (Bld) 26.2 % Normal [facility] Comment on above: Order Comment: Speci men Type: BLOOD SPECIMEN Ordering Facility: [facility] Address: [address] [address] Performed By: #### 5 7021-8 #### [facility] CLIA [id number] [address] [place] [address] 64036 MCH (RBC) [Entitic mass] 30.3 pg Normal 26.0-34.0 [facility] Comment on above: Order Comment: Speci men Type: BLOOD SPECIMEN Ordering Facility: [facility] Address: [address] [address] Performed By: #### 5 7021-8 #### [facility] CLIA [id number] [address] [place] [address] 90555 MCHC (RBC) [Mass/Vol] 32.6 g/dL Normal 30.5-36.0 [facility] Comment on above: Order Comment: Speci men Type: BLOOD SPECIMEN Ordering Facility: [facility] Address: [address] [place] [address] Performed By: #### 5 7021-8 #### [facility] CLIA [id number] [address] [place] [address] 51564 MCV (RBC) [Entitic vol] 92.9 fL Normal 80.0-100.0 [facility] Comment on above: Order Comment: Speci men Type: BLOOD SPECIMEN Ordering Facility: [facility] Address: [address] [place] [address] Performed By: #### 5 7021-8 #### [facility] CLIA [id number] [address] [place] [address] 66151 Monocytes (Bld) [#/Vol] 0.61 10*3/uL Normal <0.87 [facility] Comment on above: Order Comment: Speci men Type: BLOOD SPECIMEN Ordering Facility: [facility] Address: [address] [place] [address] Performed By: #### 5 7021-8 #### [facility] CLIA [id number] [address] [place] [address] 80365 Monocytes/100 WBC (Bld) 11.3 % Normal [facility] Comment on above: Order Comment: Speci men Type: BLOOD SPECIMEN Ordering Facility: [facility] Address: [address] [place] [address] Performed By: #### 5 7021-8 #### [facility] CLIA [id number] [address] [place] [address] 24383 Neutrophils (Bld) [#/Vol] 3.19 10*3/uL Normal 1.45-7.50 [facility] Comment on above: Order Comment: Speci men Type: BLOOD SPECIMEN Ordering Facility: [facility] Address: [address] [place] [address] Performed By: #### 5 7021-8 #### [facility] CLIA [id number] [address] [place] [address] 59160 Neutrophils/100 WBC (Bld) 58.8 % Normal [facility] Comment on above: Order Comment: Speci men Type: BLOOD SPECIMEN Ordering Facility: [facility] Address: [address] Performed By: #### 5 7021-8 #### [facility] CLIA [id number] [address] [place] [address] 02217 Nucleated RBC (Bld) [#/Vol] 10*3/uL Normal <0.01 [facility] Comment on above: Order Comment: Speci men Type: BLOOD SPECIMEN Ordering Facility: [facility] Address: [address] Performed By: #### 5 7021-8 #### [facility] CLIA [id number] [address] [place] [address] 75309 Nucleated RBC/100 WBC (Bld) [Ratio] 0.0 /100 WBC Normal [facility] Comment on above: Order Comment: Speci men Type: BLOOD SPECIMEN Ordering Facility: [facility] Address: [address] Performed By: #### 5 7021-8 #### [facility] CLIA [id number] [address] [place] [address] 14274 Platelet mean volume (Bld) [Entitic vol] 10.7 fL Normal 9.0-12.7 [facility] Comment on above: Order Comment: Speci men Type: BLOOD SPECIMEN Ordering Facility: [facility] Address: [address] Performed By: #### 5 7021-8 #### [facility] CLIA [id number] [address] [place] [address] 98147 Platelets (Bld) [#/Vol] 197 10*3/uL Normal 150-400 [facility] Comment on above: Order Comment: Speci men Type: BLOOD SPECIMEN Ordering Facility: [facility] Address: [address] Performed By: #### 5 7021-8 #### [facility] CLIA [id number] [address] [place] [address] RBC (Bld) [#/Vol] 5.09 10*6/uL Normal 3.90-5.20 [facility] Comment on above: Order Comment: Speci men Type: BLOOD SPECIMEN Ordering Facility: [facility] Address: [address] [place] [address] Performed By: #### 5 7021-8 #### [facility] IA [id number] [address] [place] [address] 46110 WBC (Bld) [#/Vol] 5.42 10*3/uL Normal 3.70-11.00 [facility] Comment on above: Order Comment: Speci men Type: BLOOD SPECIMEN Ordering Facility: [facility] Address: [address] [place] [address] Performed By: #### 5 7021-8 #### [facility] IA [id number] [address] [place] [address] 85455 CNOVSPon 05-15-2022 CNOVSP Visit (SP) Office ([place]) ----- KATARINA CAMARA ([id number]) 1945 F Date Time Provider Department 05/15/22 [...] biopsy completed 02/2016 noted invasive ductal carcinoma ER/GA positive, HER2 negative. : Lumpectomy completed 03/21/16 noted grade 2 invasive ductal carcinoma, DCIS grade 2, 14 mm : Margins negative (discussed with the pathologist who assured negative margins but that the anterior margin was within 1.0mm anteriorly). : Coin lymph node was positive for involvement. 06/25/16 [...] Invasive ductal carcinoma of right breast (HCC) ER/GA+ HER2- PAST SURGICAL HISTORY Procedure Laterality Date [...] sores or (more content not included)... Normal [facility] Comprehensive metabolic 2000 panelon 05-15-2022 Albumin [Mass/Vol] 4.5 g/dL Normal 3.9-4.9 [facility] Comment on above: Order Comment: Speci men Type: BLOOD SPECIMEN Ordering Facility: [facility] Address: [address] [address] Performed By: #### 2 4323-8 #### [facility] CLIA [id number] [address] [place] [address] ALP [Catalytic activity/Vol] 83 U/L Normal 34-123 [facility] Comment on above: Order Comment: Speci men Type: BLOOD SPECIMEN Ordering Facility: [facility] Address: [address] [address] Performed By: #### 2 4323-8 #### [facility] CLIA [id number] [address] [place] [address] 51158 ALT [Catalytic activity/Vol] 11 U/L Normal 7-38 [facility] Comment on above: Order Comment: Speci men Type: BLOOD SPECIMEN Ordering Facility: [facility] Address: [address] [address] Performed By: #### 2 4323-8 #### [facility] CLIA [id number] [address] [place] [address] 01236 Anion gap [Moles/Vol] 9 mmol/L Normal 9-18 [facility] Comment on above: Order Comment: Speci men Type: BLOOD SPECIMEN Ordering Facility: [facility] Address: [address] [address] Performed By: #### 2 4323-8 #### [facility] CLIA [id number] [address] [place] [address] 61877 AST [Catalytic activity/Vol] 20 U/L Normal 13-35 [facility] Comment on above: Order Comment: Speci men Type: BLOOD SPECIMEN Ordering Facility: [facility] Address: [address] [address] Performed By: #### 2 4323-8 #### [facility] CLIA [id number] [address] [place] [address] 86303 Bilirubin [Mass/Vol] 0.7 mg/dL Normal 0.2-1.3 [facility] Comment on above: Order Comment: Speci men Type: BLOOD SPECIMEN Ordering Facility: [facility] Address: [address] [address] Performed By: #### 2 4323-8 #### [facility] CLIA [id number] [address] [place] [address] 59463 Calcium [Mass/Vol] 9.5 mg/dL Normal 8.5-10.2 [facility] Comment on above: Order Comment: Speci men Type: BLOOD SPECIMEN Ordering Facility: [facility] Address: [address] [address] Performed By: #### 2 4323-8 #### [facility] CLIA [id number] [address] [place] [address] 57064 Chloride [Moles/Vol] 99 mmol/L Normal 97-105 [facility] Comment on above: Order Comment: Speci men Type: BLOOD SPECIMEN Ordering Facility: [facility] Address: [address] [address] Performed By: #### 2 4323-8 #### [facility] CLIA [id number] [address] [place] [address] 89149 CO2 [Moles/Vol] 30 mmol/L Normal 22-30 [facility] Comment on above: Order Comment: Speci men Type: BLOOD SPECIMEN Ordering Facility: [facility] Address: [address] [address] Performed By: #### 2 4323-8 #### [facility] CLIA [id number] [address] [place] [address] 47804 Creatinine [Mass/Vol] 1.08 mg/dL High 0.58-0.96 [facility] Comment on above: Order Comment: Speci men Type: BLOOD SPECIMEN Ordering Facility: [facility] Address: [address] [address] Performed By: #### 2 4323-8 #### [facility] CLIA [id number] [address] [place] [address] 92067 ESTIMATED GLOMERULAR FILTRATION RATE 54 mL/min/1.73m??? Low >=60 [facility] Comment on above: Order Comment: Speccharmaine men Type: BLOOD SPECIMEN Ordering Facility: [facility] Address: [address] [place] [address] Result Comment: Cathy mated Glomerular Filtration Rate [...] GFR. Performed By: #### 2 4323-8 #### [facility] CLIA [id number] [address] [place] [address] 65251 Glucose [Mass/Vol] 94 mg/dL Normal 74-99 [facility] Comment on above: Order Comment: Speci men Type: BLOOD SPECIMEN Ordering Facility: [facility] Address: [address] [place] [address] Result Comment: The [place] [employer] (ADA) provides guidance for cutoff [...] Standards of Medical Care in Diabetes 2016, [place] [employer]. Diabetes Care. 2016.39(Suppl 1). Performed By: #### 2 4323-8 #### [facility] CLIA [id number] [address] [place] [address] 27632 Potassium [Moles/Vol] 4.2 mmol/L Normal 3.7-5.1 [facility] Comment on above: Order Comment: Speci men Type: BLOOD SPECIMEN Ordering Facility: [facility] Address: [address] [address] Performed By: #### 2 4323-8 #### [facility] CLIA [id number] [address] [place] [address] 19408 Protein [Mass/Vol] 6.7 g/dL Normal 6.3-8.0 [facility] Comment on above: Order Comment: Speci men Type: BLOOD SPECIMEN Ordering Facility: [facility] Address: [address] [address] Performed By: #### 2 4323-8 #### [facility] CLIA [id number] [address] [place] [address] 21785 Sodium [Moles/Vol] 138 mmol/L Normal 136-144 [facility] Comment on above: Order Comment: Speci men Type: BLOOD SPECIMEN Ordering Facility: [facility] Address: [address] [address] Performed By: #### 2 432-8 #### [facility] CLIA [id number] [address] [place] [address] 18842 Urea nitrogen [Mass/Vol] 15 mg/dL Normal 7-21 [facility] Comment on above: Order Comment: Speci men Type: BLOOD SPECIMEN Ordering Facility: [facility] Address: [address] [address] Performed By: #### 2 4323-8 #### [facility] CLIA [id number] [address] [place] [address] 19591 CBC AUTO DIFFon 04-24-2022 BASO # 0.0 103/ul Normal 0.0-0.1 [facility] Comment on above: Performed By: #### C BC #### [facility] [address] [place], [place] [address] Dr. Mag Charles Basophils/100 WBC (Bld) 0.7 % Normal 0.2-2.0 [facility] Comment on above: Performed By: #### C BC #### [facility] [address] [place] [address] Dr. Mag Charles EO # 0.2 103/ul Normal 0.0-0.7 [facility] Comment on above: Performed By: #### C BC #### [facility] [address] [place] [address] Dr. Mag Charles Eosinophils/100 WBC (Bld) 3.0 % Normal 0.9-7.0 [facility] Comment on above: Performed By: #### C BC #### [facility] [address] [place] [address] Dr. Mag Charles Erythrocyte distribution width (RBC) [Ratio] 13.1 % Normal 11.0-15.0 [facility] Comment on above: Performed By: #### C BC #### [facility] [address] [place] [address] Dr. Mag Charles Hematocrit (Bld) [Volume fraction] 45.7 % Normal 36.0-48.0 [facility] Comment on above: Performed By: #### C BC #### [facility] [address] [place] [address] Dr. Mag Charles Hemoglobin (Bld) [Mass/Vol] 15.2 g/dL Normal 12.0-16.0 [facility] Comment on above: Performed By: #### C BC #### [facility] [address] [place] [address] Dr. Mag Charles IG # 0.02 10e3/ul Normal 0.00-0.03 [facility] Comment on above: Performed By: #### C BC #### [facility] [address] [place] [address] Dr. Mag Charles IG % 0.3 % Normal 0.0-0.5 [facility] Comment on above: Performed By: #### C BC #### [facility] [address] [place] [address] Dr. Mag Charles LYMPH # 1.5 103/ul Normal 1.2-3.8 [facility] Comment on above: Performed By: #### C BC #### [facility] [address] [address] [address] Mag Charles Lymphocytes/100 WBC (Bld) 25.7 % Normal 20.5-60.0 [facility] Comment on above: Performed By: #### C BC #### [facility] [address] [address] [address] Mag Charles MANUAL DIFF REQ NO Normal [facility] Comment on above: Performed By: #### C BC #### [facility] [address] [place] [address] Dr. Mag Charles MCH (RBC) [Entitic mass] 30.2 pg Normal 26.7-34.0 [facility] Comment on above: Performed By: #### C BC #### [facility] [address] [place] [address] Dr. Mag Charles MCHC (RBC) [Mass/Vol] 33.3 g/dL Normal 29.9-35.2 [facility] Comment on above: Performed By: #### C BC #### [facility] [address] [place] [address] Dr. Mag Charles MCV (RBC) [Entitic vol] 90.7 fL Normal 81.0-99.0 [facility] Comment on above: Performed By: #### C BC #### [facility] [address] [place] [address] Dr. Mag Charles MONO # 0.6 103/ul Normal 0.3-0.8 [facility] Comment on above: Performed By: #### C BC #### [facility] [address] [place] [address] Dr. Mag Charles Monocytes/100 WBC (Bld) 10.4 % Normal 1.7-12.0 [facility] Comment on above: Performed By: #### C BC #### [facility] [address] [place] [address] Dr. Mag Charles NEUT # 3.6 103/ul Normal 1.4-6.5 [facility] Comment on above: Performed By: #### C BC #### [facility] [address] [address] [address] Mag Charles Neutrophils/100 WBC (Bld) 59.9 % Normal 43.0-75.0 [facility] Comment on above: Performed By: #### C BC #### [facility] [address] [place] [address] Dr. Mag Charles Platelet mean volume (Bld) [Entitic vol] 10.2 fL Normal 9.5-13.5 [facility] Comment on above: Performed By: #### C BC #### [facility] [address] [address] [address] Mag Charles PLT 175 103/ul Normal 150-450 [facility] Comment on above: Performed By: #### C BC #### [facility] [address] [place] [address] Dr. Mag Charles RBC 5.04 106/ul Normal 4.20-5.40 [facility] Comment on above: Performed By: #### C BC #### [facility] [address] [place] [address] Dr. Mag Charles WBC 6.0 103/ul Normal 4.0-11.0 [facility] Comment on above: Performed By: #### C BC #### [facility] [address] [place] [address] Dr. Mag Charles GLYCOHEMOGLOBIN A1Con 2022 ADA RECOMMENDATION SEE BELOW Normal [facility] Comment on above: Result Comment: ADA RECOMMENDED LIMIT 4.0 - 6.0 ADA THERAPEUTIC TARGET < 7.0 ACTION SUGGESTED > 7.0 Performed By: #### C VDTBH #### [facility] [address] [place] [address] Dr. Mag Charles Glucose [Mass/Vol] 123 mg/dL Normal [facility] Comment on above: Performed By: #### C VDTBH #### [facility] [address] [place] [address] Dr. Mag Charles HbA1c (Bld) [Mass fraction] 5.9 % Normal 4.5-6.2 [facility] Comment on above: Performed By: #### C VDTBH #### [facility] [address] [address] [address] Mag Charles LIPID PROFILEon 04-24-2022 CHOL-HDL RATIO NORM SEE BELOW Normal [facility] Comment on above: Result Comment: 3.3 - 4.4 LOW RISK 4.4 - 7.1 AVERAGE RISK 7.1 - 11.0 MODERATE RISK >11.0 HIGH RISK Performed By: #### T SH, CMP, LIPID #### [facility] [address] [address] [address] Mag Charles Cholesterol [Mass/Vol] 169 mg/dL Normal <=200 [facility] Comment on above: Performed By: #### T SH, CMP, LIPID #### [facility] [address] [address] [address] Mag Charles Cholesterol in HDL [Mass/Vol] 49 mg/dL Normal 40-60 [facility] Comment on above: Performed By: #### T BRENDA CMP, LIPID #### [facility] [address] [address] [address] Mag Charles Cholesterol in LDL [Mass/Vol] 83.2 mg/dL Normal [facility] Comment on above: Performed By: #### T BRENDA CMP, LIPID #### [facility] [address] [address] [address] Mag Charles Cholesterol.total/Chol esterol in HDL [Mass ratio] 3.4 {ratio} Normal [facility] Comment on above: Performed By: #### T SH, CMP, LIPID #### [facility] [address] [place] [address] Dr. Mag Charles HDL NORMAL > or = 60 mg/dl - LO W CARDIOVASCULAR RISK <40 mg/dl - HIGH CARDIOVASCULAR RISK Normal [facility] Comment on above: Performed By: #### T SH, CMP, LIPID #### [facility] [address] [place] [address] Dr. Mag Charles LDL CALC NORMAL SEE BELOW Normal [facility] Comment on above: Result Comment: <100 mg/dl OPTIMAL 100 - 129 mg/dl NEAR OR ABOVE OPTIMAL 130 - 159 mg/dl BORDERLINE HIGH 160 - 189 mg/dl HIGH >190 mg/dl VERY HIGH Performed By: #### T SH, CMP, LIPID #### [facility] [address] [address] [address] Mag Charles Triglyceride [Mass/Vol] 184 mg/dL Critically high <=150 [facility] Comment on above: Performed By: #### T SH, CMP, LIPID #### [facility] [address] [address] [address] Mag Charles VLDL CALC 36.8 mg/dL Normal [facility] Comment on above: Performed By: #### T SH, CMP, LIPID #### [facility] [address] [place] [address] Dr. Mag Charles PROF 14(COMP METB)on 023 Albumin [Mass/Vol] 3.9 g/dL Normal 3.4-5.0 [facility] Comment on above: Performed By: #### T BRENDA, CMP, LIPID #### [facility] [address] [place] [address] Dr. Mag Charles Albumin/Globulin [Mass ratio] 1.3 {ratio} Normal [facility] Comment on above: Performed By: #### T SH, CMP, LIPID #### [facility] [address] [place] [address] Dr. Mag Charles ALP [Catalytic activity/Vol] 71 U/L Normal 46-116 [facility] Comment on above: Performed By: #### T SH, CMP, LIPID #### [facility] [address] [place] [address] Dr. Mag Charles ALT [Catalytic activity/Vol] 23 U/L Normal 14-59 [facility] Comment on above: Performed By: #### T SH, CMP, LIPID #### [facility] [address] [place] [address] Dr. Mag Charles Anion gap [Moles/Vol] 7.8 mmol/L Normal [facility] Comment on above: Performed By: #### T SH, CMP, LIPID #### [facility] [address] [place] [address] Dr. Mag Charles AST [Catalytic activity/Vol] 22 U/L Normal 15-37 [facility] Comment on above: Performed By: #### T SH, CMP, LIPID #### [facility] [address] [place] [address] Dr. Mag Charles Bilirubin [Mass/Vol] 0.7 mg/dL Normal 0.2-1.0 [facility] Comment on above: Performed By: #### T SH, CMP, LIPID #### [facility] [address] [place] [address] Dr. Mag Charles Calcium [Mass/Vol] 9.2 mg/dL Normal 8.5-10.1 [facility] Comment on above: Performed By: #### T SH, CMP, LIPID #### [facility] [address] [place] [address] Dr. Mag Charles Chloride [Moles/Vol] 104 mmol/L Normal 98-107 [facility] Comment on above: Performed By: #### T SH, CMP, LIPID #### [facility] [address] [place] [address] Dr. Mag Charles CO2 [Moles/Vol] 32.0 mmol/L Normal 21.0-32.0 [facility] Comment on above: Performed By: #### T SH, CMP, LIPID #### [facility] [address] [place] [address] Dr. Mag Charles Creatinine [Mass/Vol] 1.15 mg/dL Critically high 0.55-1.02 [facility] Comment on above: Performed By: #### T SH, CMP, LIPID #### [facility] [address] [place] [address] Dr. Mag Charles EGFR-AF NICARAGUAN 56 mL/min/1.73m2 Critically low >=60 [facility] Comment on above: Performed By: #### T SH, CMP, LIPID #### [facility] [address] [place] [address] Dr. Mag Charles EGFR-NON AF NICARAGUAN 46 mL/min/1.73m2 Critically low >=60 [facility] Comment on above: Performed By: #### T SH, CMP, LIPID #### [facility] [address] [address] [address] Mag Charles Globulin (S) [Mass/Vol] 3.1 g/dL Normal [facility] Comment on above: Performed By: #### T SH, CMP, LIPID #### [facility] [address] [address] [address] Mag Charles Glucose [Mass/Vol] 102 mg/dL Normal 74-106 [facility] Comment on above: Performed By: #### T SH, CMP, LIPID #### [facility] [address] [place] [address] Dr. Mag Charles Potassium [Moles/Vol] 4.8 mmol/L Normal 3.5-5.1 [facility] Comment on above: Performed By: #### T SH, CMP, LIPID #### [facility] [address] [place] [address] Dr. Mag Charles Protein [Mass/Vol] 7.0 g/dL Normal 6.4-8.2 [facility] Comment on above: Performed By: #### T BRENDA, CMP, LIPID #### [facility] [address] [place] [address] Dr. Mag Charles Sodium [Moles/Vol] 139 mmol/L Normal 136-145 [facility] Comment on above: Performed By: #### T BRENDA, CMP, LIPID #### [facility] [address] [place] [address] Dr. Mag Charles Urea nitrogen [Mass/Vol] 15.0 mg/dL Normal 7.0-18.0 [facility] Comment on above: Performed By: #### T BRENDA, CMP, LIPID #### [facility] [address] [place] [address] Dr. Mag Charles Urea nitrogen/Creatinine [Mass ratio] 13.0 mg/mg Normal [facility] Comment on above: Performed By: #### T SH, CMP, LIPID #### [facility] [address] [place] [address] Dr. Mag Charles TSHon 04-24-2022 TSH 2.057 uIU/mL Normal 0.358-3.74 0 [facility] Comment on above: Performed By: #### T SH, CMP, LIPID #### [facility] [address] [address] [address] Mag Charles MG MAMM SCREEN 3D DA CADon 04-03-2022 MG MAMM SCREEN 3D DA CAD Patient: KATARINA CAMARA Exam Date: 04/03/2022 : 1945 Gender:F Ordering : ROSA TURNER Admission #: [id number] Family : DR NICOLE VARGAS M.D. Order #: [id number] CLICK HERE TO VIEW EXAM RADIOLOGY REPORT [...] and chemotherapy Family Cancers None LOCATION: [facility] BREAST COMPOSITION: Scattered areas fibroglandular density. FINDINGS: [...] Pepper Wood M.D. on 04/03/2022 at 15:05 Normal [facility] MRA HEAD WO CONon 10-31-2021 MRA [...] authenticated by: PEPPER WOOD Date: 2021-10-31 11:01 [facility] Consent Formson 02-14-2021 Consent Forms [id number] Provider Orderson 02-10-2021 Provider Orders [id number] Coding Summaryon 02-08-2021 Coding Summary HTMLBase 64 VadtaenaYMy7nEj+PGhlYWQ+P H9ABLElI31kpWJkkY9QG9mPSZ 1GTAYRVFOVCE8QJI0aoRN5EDq mZ1KpoxWf UblbwOElTN93ZZm5LXS2lKklW SoepV5xsHRfF3s3ZdXzZC03dX 52NPwuVXIbVdW5EnLhkiwpgYR y I5njMoXeeAPqWwv+PHRhYmxlI HdpZHRoPScxMDAlJyBzdHlsZT 1wAa4iLNFpNKCinPkglYTsOgM j x9dwMVUfANrjVT0kdJliD1Sdc JO5UZJwn2h3Ib90vNP+PHRkIH K7tCwtWIrxf023ApCyk5ayGPF 3 uGAcQCetYJD8N96qj1N2ENRdK BEtVWV5yNT7dT7qrYswlavkS4 JqdRUhFoC1BHT1vORvdW0rlQk n dlorfA7nDsu+A09FWW7WHSSRI Y6AFgd6W6SfBeqtuVD+PC90YW IvSZ55rXNryVRxm3hkrKs3RrJ w ZJHiNTV0fAzlWIjij5ZaFMLeG 35kmJWet9V2GFPvpZxkmENnXz BeeFX7aF1iDTlyhtxps7kjpfx n Rzsly1invp36jK05F64dPDxwX SAlYOY3ICQvUHMcjVbvpd5qkA 9wIi8+ORuoc6blm4lvqXo6BuP w KYEnpoDpyAxhHBH2g3DwUt20M 1TpiXeuf2GpSro3od34hVDeo1 G1lJM1LRtkSUFvdV2gVXveTfD 6 KQQlVsDncJ97yDEpJGweKb0wh ByzhCcsWT9hUZNsgfkfZAXomD 0dRMZvuANprGsmGX6bYIKmprf m n491BwNvJJH7RVLlwIIiE9Hgs S3oEzFjAKAbAVUrP5GkfJQtBO cyR703ZSmxAyL7IAOyngUmI5M s RWRtfDecJlR0j0Z5Oa3Ew6Pce bilYGH4AIsbUXCxFuC7CxJlJa X4Y4DbDdx7SFBqtYnrLK9pB1A h RWZxvpmrjwqnnBF6MCGcKMIzj F25dCSbSKwoJx5ac2D7w737MI OlYPLzuS33Ll7npOnnRGGagBV U gW2glsuxv6dbyenkMtPqUEPyJ Sd1YHb5SELwwUdcNiSyTPQ3Yv D8NBB9cBTovP4miNolpebwhG0 w Oyc+M46mvF3rIES9MLB2hmhlQ CWescIfEW30LD44U2TtCuhwjK FibGU+FNEhhqJjyKnaSA2lRuF j j3zth6HdHTbhZ8QtEIGcNMynK qz1XZXgBLH0fKG2rI4eYWPqYS qys1O6zVI8P5GicbVwfr9gn5s s HNOqYNkkD08swULkt8Z2MMTaz GG0EGKaaEsfPlLxxX25Ver+PG NemKnxp5GiWceym3jtj8vwbVg 9 BfNiMCCdeuVuuMngFEZ0k3MuO b74D13zZUpnLTDzWEQyCDZhWH VouAkqas6jcR6oMt0+PGNvbCB 3 fDT4oP5hCBXwMhH2CKahW562K uMpnPVjWrtjx9pel4owmJc1Op PtGZDmseAqdGrtWCW3r4ZoGy8 8 V01bFGfeVQZoAUYkLYThZAIsg Optkf0snO1jDy6+KJ0sn7fbja 76qH59cJB+TUIbSKG2xQacQNa w MZUnvF4rBNcjMsP7DITfGrGck C23tXQoOSwkQs9teEloaOtqTS 2eINIxfhjbw512HlUnk2biMUU w dVMuBGaiQDL9P86gi3P8JIMsE CFqUSH6zPU1cA5pdNtrynkhuP EalDvbzxInxOfhTScjWMjtD80 6 IHRvcDsnPlBhdGllbnQgTmFtZ Hk6X6JrHbo6UXEziKctSH9hyQ LgHSwwCk1lbVoapFbgGG0eJCU p tvbgl608AwWwt8lmKSOvuDUjP EbhPHD1D06xi5Q9RTQtLOFqPD F4sIC7kO0erJacynghtXCwfAx g wtQaaRqsLNyfCNxmE819CUZfb WkdIvPnovHvVVImtZC4JF58QO 33mSHpb9W1eBW8U7WwPVExfuh t gbvnpSY5DMQpAVMvqH78Pt1tn HvwNe0jMPKlWFC7DQLodSBoZ3 BkpV5dLrSaAYJqUMKoV8HuxAW t FOjtU918CCsePrT8DWEausBoQ 9AmSOGwqQaiLvS2m2U7Sb4IF0 O6DP99UR93wVNyc1X0sTY0I1I h QITlfbvwjyjfoZK0SJTyXYOsp V80Ly8yqVuvUr3lHDRmCUC6RB DbpXTuX7JoqO4yTdBzWHBoORK w K6TiiTXrBFrpS162AIroUwW4A TEgjbAnT9KuCWSqvZszJiA4o9 X8Dp9LGLt2SJ65OD50yZDir5L 5 kSS6W8NmMSYeicmohxunmDN8P IThPUGwfT07Mc2zoSceRb7aOK MmBCU0WJYtkEJhR4DkfJ7yMgN j KDTjQYPcX6TgvVJyFOogM941A RfxAzB4BOZtcqRbK8QaLCVauE tgCmA4d9Z5Wd7AXOYqDR77CPU 5 hOG4YZ12PL67C1YhMhcagDAew +PHRhYmxlIHdpZHRoPScxMD SrKoYasSnuEL8rVj9kLUBhENG v kLhbfSRqKqFhv4etFKCeGMxoG A1pqJvxY1ApqPP0ORVzy2g4Rt 67M73hK3EqlYX+BSCgeBM5dGP 0 rW5rNxPcTbD4QEviA748ZkDxb FMdNksqw5oid4gibJg9TnM9PX OblkAhgUjfSTX8o2YjHx27G99 s IHdpZHRoPSIxNSUiIHZhbGlnb v9hrI2sGj8+RFRfcRY1kBM2wU 2iUpVsZrY1NJafT843RzImgES v Bllxc9wpt6ptlEk2UnWsFQCup tXprTwhGGA1y3OtZx53L2QiaO emk2YvHus5zi98oZAbb9R8fEF 9 Z6EmFRRqvpuqjHBdgPykAV4bM JYccpbyQTObyY3gYFCbS7g7Ih KtDxC5IJbpB5FlwnS5BHXvnSR g ENesEAG8A57av5Q1RIXiABRvV MK6aGT6fN0lnSatdcvftOLceE uxaoDbpMzmOGimWQtsE834HJX v kPgmYIGyoQ8cQBNbvSCmgJmcU T1cGVTitfxlLx8XJA2LAQrnLv 8AT5QmUCjvsIA+JDUkSDU7gQn l UMsxZLUjjU9lTWLdO4i9NeLaX wV8NHqkD4WsCSNkeotuZx86yJ 9mXfMgBgC0NWnwO6AmrpS6LFO w iEHsJAtpAVS7T30io6J2NFWhJ VCiTPI7wVA4kS7jqGtfuxsgyP SzwFneydNrzHjhOGhoSYphI55 6 JIHecHfwGwI8AaHwVwY3YEe3B 3IqCxr0QMRlgKrpBL7irTBjJD dzDz2lsZiikFgoET1xZPDsmaz w TFIrpO7tZORltMEmeZlkRZ7aZ YHfkpzbf412AuAaMAO8LDXycL SwE0UohJ5rApLoXJOqRSMvQ6N l hJSnIXmpJ642TLquJjZ1SXTas bYiS1ViHDGejZnzZvR3r9J2Od 43MyBZZWFyczwvdGQ+PHRkIHN 0 tOdjPOvhPOAwxY8yESEiZ7c6C oWdFkV5GYyzW1KdEZXanqprSl 82zB4qEpGsNdU4IAjnX7WgdyZ 6 BPBzlZRePGrwCGM2X19mj4K9I RPiMJLzRTA1dYC1iD1tlVpfry ogbGVmdDsgdmVydGljYWwtYWx p J671RRNbvPwqTkTTQBJBLMgcp GQ+PYOvUOY1sJusCVgxCQUkfZ 5iUDLjV1l8CuCkWnP4OEpiB6V h VZVlhywiOg88yG2bMvWaXqQ3L XjrO7YrptZ4WXWvrUDpEFuyXI H3T13ej3V8MGGtQMEiKFE9uNM 4 jB9jnVitjamdiBVkxAjhvuIth BruCBzvSImyA363FMPyfZyaZu 9ap0VfviW6uA5yNX64BC68D9D y PjwvdGFibGU+PHRhYmxlIHdpZ ZEgJIboZXCeTrDgpEdiXR6wNa 2lDVJkVGRgcZskrKCpQpTtf4n s PVYsTNdpLL1ygRpyF9DjxTV3U HPac6l8Zu09B81gI1EjbMD+PG HwlHD5vDN9rN3uKaZrNlK2XQo p N334ZdGxmYHvStkxf0usy3jts Is9ViUaAEMujxMqkPaiTVR9e3 FfOx36R06dFLjpLJPuCJQrBUN i JYQkpSngmb9kxR7iOb5+PGNvb MD9nDT2kJ1aQrChYzC4KDooZ3 21ZpOjpWLnIstrY40hV0EhlUZ + BOOfLvk9SHWheMzaIQ3bxZAvE WelOt5uVNG4FcQoRyIeOYcuW3 AsVHAmmctvlkrpeXQ4QMSiASG w oZ80Qy4yhFweGp5oZVPnVFV3M FIhbHGoG6OreP6iFbPeSKIxLK CgT1RneVCmUViqG492OSeaScZ 7 PNQawbOoX7VuDQImjBpjEfB9m 8Y9Zb4RnGsvaANkRF0jWrNoHS h9N8SmUsr2IAMwrGqnSC4dqSR k MLtiKl7ssJggoFklDE2vTVSfx icpe325QgDkw8xxVCQaaNIcZU cyDVB3E59hm4F1CFSgOZHqZKP 7 tNT4lE4adXtwpsiwlNBhfWric pSbxLjpDWmkQFthY109YFCdrT zuRmMACss2J9ZjKxv9PXKqeKd s KD1gfVYzSZkjLv5yjDkgpZehX Q8wILHppdmmb157CjGxv2rlFE UfxQTeJRdiVHL7G56sn0X6OMH w FGVpSJD2kGO2sI4ixAmdhfxul GVmdDsgdmVydGljYWwtYWxpZ2 42ISXqgLmkQg3SJfi1C1JvCtm 0 WZBygNqfZK8nkYCoXDfqPe4nq KeieMccLW6aWRJneeglv752Pm Qic4fdKOFaeXBkUEwpVON0C38 s n7Z1SNAvFZPjCFO4cZW3cI7hz GlnbjogbGVmdDsgdmVydGljYW frCEwkM942HCQtuIdzZaZdwKG y OjwvdGQ+FR55vq50D9GwJkavA da2KDPcGEK7lOI2uK0tOFPlBD ewz9C4eNY2F6WrqrFofi4ys0v s YXB (more content not included)... [facility] Consent Formson 02-08-2021 Consent Forms [id number][facility] [id number]#1.00OTGTI [facility] Discharge Instructionson Discharge Instructions [id number]#1.00OTGTI [facility] Inpatient Patient Summaryon 02-08-2021 Inpatient Patient Summary [place] [id number] Patient Discharge Instructions Name: KATARINA CAMARA : 1945 Patient Address: [address] [place] [address] Primary Care Provider: Name: NICOLE VARGAS MD After you are discharged if you find you have any questions, please, call [phone] ext [phone] to speak to a nurse. Discharge Diagnosis: [...] alcohol and/or drug addiction problems; contact the [facility] 24/09 Crisis Hotline -Text 4HZNQ io [phone]. If you received any narcotics, sedation, or [...] business decisions or sign any legal documents [facility] would like to thank you for allowing us to assist you with your healthcare needs. The following includes patient education materials and information regarding your injury/illness. KATARINA CAMARA has been given the following list of follow-up instructions, prescriptions, and patient education materials: Follow-up Instructions With: Address: When: Bernadine Diaz [address] [place] [id number] Business (1) 12/17/2020 11:00 AM With: Address: When: NICOLE VARGAS [address] [place] [address] Business (1) Medications During the course of your [...] 1 tab(s) Ora (more content not included)... [facility] Outside Recordson 02-08-2021 Outside Records [id number]#1.00OTGTI FF [facility] POCT Glucose Levelon 021 Glucose [Mass/Vol] 105 mg/dL Normal 74-118 [facility] Comment on above: Performed By: #### 4 [id number] #### [facility] (DEFAULT) [address] [place] [address] Pharmacy Noteon 02-08-2021 Pharmacy Note I have [...] [Verified on: 02/08/2021 09:18 EST] Nury Soto [facility] Telemetry Stripson Telemetry Strips [id number]#1.00OTGTI [facility] Consent Formson 02-07-2021 Consent Forms [id number]#1.00OTGTI FF [facility] Consultation/Specialist Note on 02-07-2021 Consultation/Specialis t Note Patient: KATARINA CAMARA Age: 75 years Sex: FEMALE : 1945 Associated Diagnoses: None Author: THADDEUS GAMING Basic Information 1 day s/p RT ALEA (DOS 02/06/21) Subjective Pt notes she is doing ok, she has been up with therapy, pain /10, she is thinking she may go home [...] needed [Electronically Signed on: 02/07/2021 07:57 EST] MEKHI THADDEUS [Verified on: 02/07/2021 07:57 EST] THADDEUS GAMING [facility] MAGR Postoperative Recordon 02-07-2021 MAGR Postoperative Record MAGR Phase II Record Summary Primary Physician: Bernadine Diaz DO Finalized Date/Time: 02/07/21 09:54:12 Pt. Name: KATARINA CAMARA /Sex: 1945 FEMALE Med Rec #: [id number] Physician: Bernadine Diaz DO Financial #: [id number] Pt. Type: O Room/Bed: [facility]/1 Admit/Disch: 02/06/21 08:56:00 - Institution: Phase II [...] General Comments: PHASE II COMPLETED BY 2 ASHLEY Finalized By: Jordyn Young RN Document Signatures Signed By: Jordyn Young RN 02/07/21 09:54 [facility] Pre-Op Record Summary Primary Physician: Bernadine Diaz DO Finalized Date/Time: 02/07/21 09:20:14 Pt. Name: HOA KATARINA Stella Pope/Sex: 1945 FEMALE Med Rec #: [id number] Physician: Bernadine Diaz DO Financial #: [id number] Pt. Type: O Room/Bed: [facility] Admit/Disch: 02/06/21 08:56:00 - Institution: Pre-Op Case [...] consent correct. General Comments: Pt arrives to [facility] ambulatory. Pt has #5 pain in right hip, she denies cp, sob, cough or flu like symptoms. Pt denies pacemaker/defibilaltor or sleep apnea. Finalized By: Kristina Schulte RN Document Signatures Signed By: Kristina Schulte RN 02/07/21 09:20 Normal [facility] POCT Glucose Levelon 021 Glucose [Mass/Vol] 137 mg/dL High [address] [place] [address] Comment on above: Performed By: #### 4 [id number] #### [facility] (DEFAULT) [address] [place] [address] Glucose [Mass/Vol] 111 mg/dL Normal [address] [place] [address] Comment on above: Performed By: #### 4 [id number] #### [facility] (DEFAULT) [address] [place] [address] Glucose [Mass/Vol] 151 mg/dL High [address] [place] [address] Comment on above: Performed By: #### 4 [id number] #### [facility] (DEFAULT) [address] [place] [address] Glucose [Mass/Vol] 126 mg/dL High [address] [place] [address] Comment on above: Performed By: #### 4 [id number] #### [facility] (DEFAULT) [address] [place] [address] Anesthesia Noteon 02-06-2021 Anesthesia Note Patient: ROCKY [...] obstructive pulmonary disease (COPD) / SNOMED CT 03571544 / Confirmed Hypertension / SNOMED CT 7296481208 / Confirmed Hypothyroidism / SNOMED CT 88767197 / Confirmed Kidney failure / SNOMED CT 52652356 / Confirmed Diabetes type 2, controlled / SNOMED CT 686632403 / Confirmed Physical Examination VS/Measurements Vital Signs [...] on: 02/06/2021 15:15 EST] Jeff Bunn MD [facility] Anesthesia Note Patient: ROCKY CAMARA Age: 75 years Sex: FEMALE : 1945 Associated Diagnoses: None Author: Jeff Bunn MD Preoperative Information Anesthesia history: Patient [...] obstructive pulmonary disease (COPD) / SNOMED CT 40570675 / Confirmed Hypertension / SNOMED CT 8354436848 / Confirmed Hypothyroidism / SNOMED CT 46403490 / Confirmed Kidney failure / SNOMED CT 79887148 / Confirmed Diabetes type 2, controlled / SNOMED CT 655303281 / Confirmed Resolved: CHF (congestive heart failure) / SNOMED CT 12387087 Resolved: CAD (coronary artery disease) / SNOMED CT 23812455 Resolved: Breast cancer / SNOMED CT 773959295 Histories Family History: Aneurysm Sister Brother Brain tumor Brother Procedure history: ESWL of kidney (81067479) on 12/29/2020 at 75 Years. Comments: 01/19/2021 13:20 Kristina Johnson RN Left Coin node (101385192) in 2016 at 70 Years. Lumpectomy of breast (2133472138) in 2016 at 70 Years. Comments: 11/04/2020 13:16 Chelsi Paniagua RN right ESWL - Extracorporeal shockwave lithotripsy for renal calculus (963881942) in 2008 at 62 Years. Hysterectomy (297108021). Tubal ligation (053525797). Appendectomy (912577348). Ganglion cyst of left wrist ([id number]). Laparoscopic cholecystectomy (31661456). Colonoscopy (231286955). Social History Electronic Cigarette/Vaping Assessment Electronic Cigarette [...] 09:10) Review / Management Laboratory Results Plan [place] [employer]#(ASA) physical status classification: Class III. Anesthetic Preoperative Plan Anesthesia: General. . Anesthetic plan, risks, benefits, and alternatives discussed with the patient and/or family. Patient verbalized understanding. Anesthetic technique: General anesthesia. [Electronically Signed on: 02/06/2021 09:57 EST] Jeff Bunn MD [Verified on: 02/06/2021 09:57 EST] Jeff Bunn MD [facility] Coding Summaryon 02-06-2021 Coding Summary HTMLBase 64 DcmzdaaxYGf0hEl+PGhlYWQ+P Y1UCRPrZ17sfLTdhP4UX6aHXB 1LHNKWYFCUNJ2OLB4swYE0MZt hS8MpksRk RooyuIJeKI18ZUl0WTR5zJvdW NrbeL2vkQPvV9g5OhQtCT31sG 24MYhsJIHrYtV4MnUzcexctLY y H9cvPvAbcOBbTmk+PHRhYmxlI HdpZHRoPScxMDAlJyBzdHlsZT 4vQw6pRRTnWTEbuKucyUFvSgW j n7alNJDjVXqeIJ9vuOhxP6Lez EU9ZWWdb9s4Bl45kEO+PHRkIH V5wKfcKQzpk614SkDww5wfEJM 3 sFQmOMmdUYN1G79lg1Q3BWDqR TFyHKM1uMX2gG7vmDtntocaS2 DzbMLeRyG5UXN1uNPjwR0zoIq n tmsucT6uEqp+Y74GOL9VKUFPP V0ANnl8H8QhGccmyGJ+PC90YW LmJS71jLIfpSPud9lncDk5HgV w DZNrXDV4jZokGIbmb6EySLIsW 15efNYbl0N8TPOpvHkgwXPiLt CnaND6iG6fXZgvyjawc4avzjp n Wljwg3rkef47iS85T12eFRpsR DRhGRB3ISYqVZPifZzhqh4owY 9wIi8+CIewx2wzk1nuiBv4SyV w GFMfseEbhNlxKMP6v3FuKx26V 3YlhAccd1SfXzo7si93vKPpf5 P9cMD4FAucTLFokQ0vOXzqUzL 6 ATMfCtDvlG97fLKrSYujAp8yn JsklXxjQC4cJZMqtojwURJlqO 2uYXFqgEUyoZdcCK1mROUqblr m d041YyVyJIO1UOWubPBcN4Bxz R5eHqFhLZCuNBVfK6IhxLQqRX fcC197XXqzPkG5EHDlcbGqL7L s AXWryNnyRsU0l5Y9Sr7Rh0Xeg ctxYSI4KPguBMIdZxM5TjRzIf F6O4ZlRsx9TDHmxVesRO6rS1H h VXUmsfiqwfugpFI1MLReVYElq C11tCSsAMssMw5pk4G9i299GG AcAESlnI55Bv2mxZdgSVXuuOO U mD5sayjvf7edbncaQpWvWKBvK Jf2SMv3DZTsoErnJtAhJQW2Zo G9JEV6oHZblY3sqPafpcvgpO8 w Oyc+F09lwK7hIBS0BAR8ibskB FZghtQfLF04CX97H6NlYxkfvL FibGU+WIJgwcDqvBeoXD1cBaJ j a5ezb4VdMJvdB7ZiISIyPUrsZ gv8NACqYLL5uHY9uQ3hVUSbSH uho6Y6fRU5W1VroxOdtp2rn2h s YGLmLPziF83msRDxc3K1EAOjz CH5KNWtwInzPvFfcV50Cwb+PG TtfFisu6WnEeanm2owg7kueCd 9 FdJbHCOivgCknIdaHGT7n7FnB v87D30mVYfwIKRkFGLtDWOoZD UndKnovg5gxK1bFt7+PGNvbCB 3 hOV8dP5zRYNhLcP0NImlX617P cYidECxGrmlw9jww5zhxPk1Up NjXNAbqqCmySqkDOH4g4YdFl6 8 P59oJCycPTCiNFQxYUGrLFDpx Nkeor6ugX5fTm9+KH8di6jplt 77bP47tZE+NMEnIWM6lRjnQPi w ACRmqS4fKXqmOsD9IZKeWaHxd F20rESlGHngFi8zoUjcmSnjPX 7sXHWyrbwpw935DnOob6cwAQB w eXFdELajQQD7K51gj3J1ARRmJ DItFES1wWG8xG8amXuxzvqqhN FiaSsatlGzdSqlKWedIPvmU03 6 IHRvcDsnPlBhdGllbnQgTmFtZ Nv2I5EnJot1SRLjmCxtQD0tvJ OtHTtlLn0maXvoqBsjNK2wANP p ndtjr584SeXjv7coOPWvdIFmG QffTMM7D65zk5E6DAYhCMFuJA N0fCP8rM6dbRlvqkyarKQpnJq g znUnyLuoJQurNCmqW531JDLxl VikNgMjwpVsMAWruGG7YZ61FE 18mQQvw1Y7iHK9N9SlQMIzaum t hdluxEH7KOGvUPFcxD56In9oo PrtWu0uKJOrWGR9ZZPomQErI6 TrzM4pYiIvLLAyHIGlV3GncTM t CIppK433PCotBcP5LOIgegWhN 8YrPMCcjUvhTtM0x6D9Ou4KZ4 Y0GV46OM59sATlq9J3hEV8Y0Y h YYZhokvampxgrTK2JAIyOZGwb F58Ti1bsJcdLd2dNLPwFMQ4VX EurGOdS8BxlF3gKcIcLYCtOIZ w C5NvoYZrNEnrW438JUccPmQ5J EZirbDcV7HxRJNmgHbjNlO5c1 B8Cn2PACg5IV30YJ98vKVxo8A 5 wSX9E5VdZEJahlpbtwmrqLI6O EIjMICuwW96Yd4kqSccBf7iAJ CwSTG2EGFyvFAnB8YchT5dGfA j BVMdKLIbY7ZpxXOwLOceN871V SmrHlK3FCOueqFtE2IpIJAlwE weMyJ3w2C9Sv0LPPCnWE38PUF 5 rGW0MC86BP61G2LyIhwhgVXpj +PHRhYmxlIHdpZHRoPScxMD ErFsFzlSmmIY7iLe4fGUFfUSG v dPuskQUbYiTds4bkPZFjGTsrW O9ghKpvM7YtdRV7QFNjk5a7Ay 67U86pF0WqiAE+PIWgvBP9yEY 0 nD2bKiFoKgY5LRyqS804AwKsz IJtLbdku2phc1nulZq8VzY7TN GewoRwsHpaIWV2g0LsYu46Z28 s IHdpZHRoPSIxNSUiIHZhbGlnb z9qpU3aOn8+ENQmpSB5lTV1kQ 8fBxCwLuG6BRguR395LtBauQZ v Tcumy2xdw4ctvKo7GtUvRQLrn kOjoLccFKY8f0TsEc81S9RleR gcv7GpFou2zc81rOFew3P7yMD 9 G1RxTHFiffsxdZSqmLjjNC7pB MUobzsfZQQruM7qIIEyN3h3Ey QwCzY5DIefH0IymqP0DONydEW g CHvaOSA2T74nl1M4VHKwRPMzY FA9zPJ7pP5rcMhligmzyFYedH kdbbFpvLwdVJabRLbcQ077NTD v aAziYMZbbE0hDSCmgHAxoDqeU L7yRJMcutlhTm6QRR1GLEonOy 6FJ0JqAPdwjVZ+FXIeXCQ4jVw l NAnbAWKgfP9lGEEgR8t6EgBdU xI8NIiyL0EjUVEnwvzmLg79yU 1bPjMdGoN4URafE1PtoxV9QTV w iICqCBerSBK1J38ks9N4AUScN PVkNFH4gTQ1gB2wfEyplrmoiM KyfXciavKlpMmaVGaxPLtzR00 6 BZFzqFxwVhB8AfOqRjH0PBo7V 0TkRzj6PMPpcMltYA8yvWWjOW loQb1bvPugjEvcGW7qUGHpwxp w IGVixZ0oJVWunOCqvNrqHF8qR IHivikaa223LtUvMOD1NJHhpL MmP7UfwB3vSeMgIBEzZLWpI1W l mPJfOPfnF572RMxkCbS3GBYbx oSjL7AiAIOjpBmzAmY2v2O7Ug 43MyBZZWFyczwvdGQ+PHRkIHN 0 mBhwGPpaJURapB8sSKCvU1d9Z fHjHjG8TRilZ6TvFJOnlvknNi 38zF0qMaArHbO2ZLmdY8LecvK 6 LQOctQWrHWblHCH8E29yu1Y6S VQsVEJpVGU4pGR9xQ6mhXsano ogbGVmdDsgdmVydGljYWwtYWx p I197BUCpkPbeMeBHCTIHRVazl GQ+IWAkKHB0jDojXHvcATUywY 8lMPAuY3m3ZfTpXvN2KLrmE3D h DVKttaroSy83fJ4xTwXdHfL3N WbgQ4IwtwO4PAGiqCKnNOgnIV A5X87pv7K8RRTwLEJqMNE2pZC 4 qL9emValuwtpfPTdyAnmheCcm XvjDViyJJxiC840ZGEwyZemUt 4GMY87RD13R5NgEmqhbQZkdCW + PHRhYmxlIHdpZHRoPScxMDAlJ hQyrTzrQR7cPg9vSNRhBBJzkK pxiLGrQbVag0vdAWRoUIywCQ5 w sBhoM8TgsGM5VZCbu9l2Mi32P 09gS9MdtAX+IRSqvJQ3gEJ3lL 4oMwJrWdX8CTisB063JpUmkTX v Kvfte2pvo0dorMm8ClRlXGZan uLirXapHQW5s5KsVj67S27nSY dpZHRoPSIyMCUiIHZhbGlnbj0 i uR5xRf1+HQPicIT3sOQ2fV1lM qUuZlY9DOrvS974YxTreGAzHa neN31qQ5IstAK+FNWfGlf0EUR z yEzeZH9bnFZnZDbiWx7tPQN1W vIbKiDgHRupA5AfJWLkjxysqa romWL7RYUjSUKvsZ27Kq3asLz g Kw4nEKTsDSO9NUOgpFOlT9Hlw I8cAnIdFMNvGLKjE9CibTXiDQ tqG698VMvzJrK2ASNrcfVoI9G s HIKntYsuQeP1m9D1Fo4BjGtxe OCbNT6fDrMrESp1I8RzBjt6KT OspNreRF2qyETiKRunAg9nuVi o dDbmLK0kBUKuniwup282OlAdr 9frFQAkwJHoCYwnVWD0M63ly2 I4FVSpVILvRIH8nYK3gB2vfMb n bjogbGVmdDsgdmVydGljYWwtY LgkO202NJPytMusBjBIQhz4E4 BkHda4XRTwoPdsNG2tdUKxYBu u Fm2ykFouhQlcJU9zVSPskkdxu 397OtWlq4jmMOCxxBKhFSzoZC V4G83sv5G3AZBxAKIxWFQ7uOT 4 nZ2whVushjdpxVAwnSkmldVxm AulMQpkIFwqC812TUNbpGshEg 0KYkh0W1OnGiy4WGSfoJdxOV4 n qAPdADngGs2seMtxkIgeVZ4lW TStgheqa967MnLos4doGCBkcV XrECwlTTW7Z16dk9M5ASJdXFK w IIO5rZL6wW6snShntxlafPHun OlyomDxjUdmJSnoZExuG686QR RvcDsnPlBheWVyOjwvdGQ+PC9 0 by67Q7JzBgfdLbi6ZVAmFOJ9c EF3kI3cAFNoYHfpm8N2eYA6A3 PutwMwbh1vm5zhLYKmTWjnH27 s bGF (more content not included)... [facility] MAGR Intraoperative Recordon 02-06-2021 MAGR Intraoperative Record MAGR Intra-Op Record Summary Primary Physician: Bernadine Diaz DO Finalized Date/Time: 02/06/21 13:59:40 Pt. Name: KATARINA CAMARAO.B./Sex: 1945 FEMALE Med Rec #: [id number] Physician: Bernadine Diaz DO Financial #: [id number] Pt. Type: D Room/Bed: [facility] Admit/Disch: 02/06/21 08:56:00 - Institution: Case Times MAGR Entry 1 Patient In Room Time 02/06/21 11:39:00 Out Room Time 02/06/21 13:54:00 Anesthesia Start Time 02/06/21 11:39:00 Stop Time 02/06/21 13:53:00 Surgery Start Time 02/06/21 12:11:00 Stop Time 02/06/21 13:48:00 Last Modified By: Jordyn Young RN 02/06/21 13:58:02 Case Attendance MAGR Entry 1 Entry 2 Entry 3 Case Attendee Bernadine Diaz John M MD [place] BLOGS MANAGER/CSFAGómez CST Role Performed Surgeon - Primary Anesthesiologist of Order Filler Record Time In 02/06/21 11:42:00 02/06/21 11:39:00 02/06/21 11:39:00 Time Out 02/06/21 13:35:00 02/06/21 13:54:00 02/06/21 13:54:00 Procedure Arthroplasty Total Arthroplasty Total Arthroplasty Total Hip(Right) Hip(Right) Hip(Right) Last Modified By: Jordyn Young RN 02/06/21 Jordyn Young RN 02/06/21 Jordyn Young RN 02/06/21 13:59:33 13:58:05 13:58:05 Entry 4 Entry 5 Entry 6 Case Attendee Nanci Blake Kristi L CST Scott, Ruth RN Role Performed Order Filler Scrub Personnel Continuity Coordinator Time In 02/06/21 11:39:00 02/06/21 11:39:00 02/06/21 [...] Primary Procedure Yes Primary Surgeon Bernadine Diaz Modifiers Right Gómez DO Surgeon Comment RIGHT TOTAL HIP Start [...] 02/06/21 12:18:2 (more content not included)... [facility] Primary Physician: Bernadine Diaz DO Finalized Date/Time: 02/06/21 15:03:15 Pt. Name: KATARINA CAMARA/Sex: 1945 FEMALE Med Rec #: [id number] Physician: Bernadine Diaz DO Financial #: [id number] Pt. Type: D Room/Bed: [facility]/1 Admit/Disch: 12/06/21 08:56:00 - Institution: PACU Case Times MAGR Entry 1 In PACU I 02/06/21 13:55:00 Discharge from PACU 02/06/21 14:55:00 I Last Modified By: Maria Isabel Lewis RN 02/06/21 15:03:13 Finalized By: Maria Isabel Lewis RN Document Signatures Signed By: Maria Isabel Lewis RN 02/06/21 15:03 [facility] Nutrition Noteon 02-06-2021 Nutrition Note Pt [...] for changes in wts, intake and labs. [facility] Operative Report - Surgeon/P mily 02-06-2021 Operative Report - Surgeon/Physician Preoperative diagnosis: Primary osteoarthritis right hip Postoperative diagnosis: Same Procedure: Right total hip arthroplasty Surgeon: Mynor Diaz D.O. Anesthesia: General Indications for surgery: Progressive loss of function and increasing pain with radiographic findings consistent with advanced osteoarthritis of the right hip Estimated blood loss: 200 Complications: None Findings: Ijgi-sa-tmez in the right hip joint Procedure summary: [...] 02/06/2021 15:23 EST] Bernadine Diaz DO [facility] POCT Glucose Levelon 021 Glucose [Mass/Vol] 207 mg/dL High 74-118 [facility] Comment on above: Performed By: #### [id number] #### [facility] (DEFAULT) [address] [place] [address] Glucose [Mass/Vol] 179 mg/dL High 74-118 [facility] Comment on above: Performed By: #### [id number] #### [facility] (DEFAULT) [address] [place] [address] Glucose [Mass/Vol] 112 mg/dL Normal 74-118 [facility] Comment on above: Performed By: #### 4 [id number] #### [facility] (DEFAULT) [address] [place] [address] Patient Handouton 02-06-2021 Patient Handout POST OPERATIVE [...] done to rule of a DVT. [facility] XR Hip Complete Righton 12-0 XR Hip [...] described. Follow-up as needed. Final Dictated by: Zac Jurado MD Dictated DT/TM: 02/06/21 3:57 Signed (Electronic Signature): Zac Jurado MD 02/06/21 4:53 pm Technologist: AYLA CASIANO [facility] 2019 Novel Coronavirus (CoVI D-19), ABIODUN LCon 02-03-2021 SARS-CoV-2 (COVID-19) RNA ABIODUN+probe Ql (Unsp spec) Not detected Invalid Interpretation Code Not Detected [facility] Comment on above: Order Comment: [id number] Result Comment: This nucleic acid amplification test was developed and its performance characteristics determined by [employer]. Nucleic acid amplification tests include RT- PCR [...] detected) result in this assay. Performed At: [address] [id number] Andrews Mchugh PhD Ph:[phone] Performed By: #### 6 [id number] #### [facility] (DEFAULT) [address] [place] [address] Progress Note - Nurseon Progress Note - Nurse Spoke with pt santy vogeling arrival time of 0900 and NPO. Verbalized understanding. [Electronically Signed on: 02/03/2021 12:36 EST] Monalisa Miller RN [Verified on: 02/03/2021 12:36 EST] Monalisa Miller RN [facility] Coding Summaryon 01-23-2021 Coding Summary HTMLBase 64 OrrcjevxWBy3cIg+PGhlYWQ+P A5KEXZbF26ahPAqpM0CR7iGTV 3XNZRDFZLJJP3XOJ7auAC4FSv sD5QyrmKu XorsnMMaJY52EDe2WAA1vIykL OcnyX3vcMRvR0i5EtDaUX22oG 04EGwrBEUbNqP5YkEvzvwhxCK y N7yyQlLvqGUjUck+PHRhYmxlI HdpZHRoPScxMDAlJyBzdHlsZT 3bUh4fXXUgEZAdyGxnyDZfKsF j u3miCWCyYRrkKS4kyZvzB4How DT7LIWdm9x6Zw57bMK+PHRkIH V1yXjiHKbrj856EoGmo8kxRTU 3 nOEnCKmoMDA0C04kp7Q1ACHvS HPaUHK7lLD0fO2wbPbascavS7 ZerXBeWzM8SGA0kQWuqF6iwBb n qzllaK7gDxg+D65EQI1QDWCPB U0CDvi2O8MdYrfsiHI+PC90YW TbRY51xVNzkNVwa2pfbMk5AzK w CZUwMYW4sPqxCDyty1LkFYCuO 21snHZwj5E6SCPsaKkjbOFrGt KfiSZ3pJ4xLPhttpfkt9gmvlw n Glboq0xqto12vI71J22oBIyuV QCrNRU0UAYmPGEdlErpqv7dnQ 9wIi8+ZEnnr8iee7afsFq2YfV w PZXjcvUuxGdnDWX0i8DnIx96G 3DawCyda6KyMed3ip30sASel9 E4mBF3XQklHTFfwO5kTZyaXaD 6 YUBgQyYfzO92lZNuKWnfCa3of OmwlWikSB6rZAIjzsauMOUoiO 6mVTLeqPVzyNjfHJ8oSFRllxf m b407IbOrCZX5QAQtlIHjF4Pvb S7dMvKjJSPwGFZyN9NtpFLgNX vgD985LAgeTbE3XKCtakHlD7K s YRWsvAknReK4d0O8Dc6Py2Qih hnbBFG1FCnrAGTlImHpHxEyBs H8L7RcFdd8GOEwtEudBW8hO8Z h BGIslmbigaoezRC3MQEeKHLmh N19bMYmOQhuJi8ns4T5o342UB ZcVQBotG91Yw6sqGooQESnfRF U uR2hdnhnh2lmdbehOaWsIAFbP Lq5CTf8KYLldStsLoNoTGX5Md P7QZP2qLQreY8roHxeghanxH4 w Oyc+Y97iaG1aQAZ1HQD7hipqB HGjmxJzCM71JC87D1PgEgaleT FibGU+LJNfgyXcsUplJY0eTfD j b5rju2WbBWzkC3OeQDHbOOyfG ra7IECpXPL5fYR6wF2rSDNhLT erj6N3lKF3Z3RtixOyhi0ad8u s ASWtMWuzO00eqYYlx0T6AMMmw CP2KQKelHiyIcQxuB34Dcc+PG VorQwdx8WgWtszf9ajg6kvmIi 9 PgUdQPCpqmEevIqmBDK8q8WtU e06S45dFPtuFXCeMJBdIYJgCB JguGihxu8swJ4qYh8+PGNvbCB 3 aNT4mZ0fVMGwBkM0BZneM212U dFnaZCjWacnk2wqk7kkeHk1Sx LjUATbffMylNghBHY1v2WvDj0 8 G17vXYbbSXHsTHMtMSBlFAQqr Btbeu5kdH2cOf9+CC3ul2gymd 50sB52rUB+YEFgQIT7qTdiUWd w PZLxuJ9cQCyjBfI0ILJxJmYms I11uMWrXYmcRz6nwXsmiAarCJ 4zGHGswvupy727CjEjp1qoQQS w fOYjFVweCXH0I97uu6G4LAUhC KIfTYU8tMT7gB9vrDbxdxtgwP UidKpnhbPmqXunYSmqCMujG65 6 IHRvcDsnPlBhdGllbnQgTmFtZ Xk3X3EsVxe5POYflBuxPC0xbB SbBAnwXb4xeRgvsDtcUW6eBBF p qzchp272EjXlb2aaYTGhnOOxJ XeeFDC8M16zi1I9WITxJKQxMQ F6kAT5rE0egQxpksfpvCWdiGj g lyKvvNvoCOzoBKnhV994WLOvf XjcAkUqftGjKMTsiHR6LS36SD 84hRTus6V1yUJ9K5BeLYAfouk t qizrmII3FPHrFGZosH66Gy0sb WhgNn5dWFQbBQI6TKOkjNOlH9 MobE4xYfKuOQPjPLOrI0UmnKH t ZLvsY993HCdgKjO4UUSjjaGeU 9FqZKMaaCrwGtJ0u9G0To2IX5 L7ES72NM64oSYtt0L7nZY1M2Y h UGWfqsravzhjgNR7KYXqIAWmf G15Ds2hoVwdDe0nWRJsGHZ4WW ZsuBXfB7HrfM0sRwUfLUTvMHL w K0ZjsHCaEFunN072BXlpUvU2U FWbxpOvQ6BmQNKdiQqiOeJ1w3 Y3Qt2WQNl4HC71SE24vQGeb8K 5 zAD5S5HrGCKbmkdymtxfoPJ5A VVdOHSfgO79Vd4sjQtiUm7lGS WmXWH0NDXqnRFcV9BrwT0yQlS j RSDvPYOeD4OxmRRqOGkuX973T PfqCnX4OEVrzcCpA8DfMKSqnV pdSaW6f5F3Gl4TNMDlCL77ESA 5 gLD9CD51JB06O8QjFrxmsDTtd +PHRhYmxlIHdpZHRoPScxMD RmIiZumTccZA3bPk3uTBKfOHR v iLkqdVRdUvKtz4ppCCSoSHkcE M5vaJncD4PxyIQ7TGHzw0g1Vo 87B43qH4IbyCP+HBAuqBW8yNZ 0 bG6sOaBsTyP2TEvhY427AwVyk MGsSkhzv6snq4msuVq6NbP8LA ZxgmLbvCdoTXV8k3SpZr86S72 s IHdpZHRoPSIxNSUiIHZhbGlnb c1roJ8qEy4+PCRaqWH8zTW4kD 4zAcUcOkV3RWnbX757ToVjkDD v Bgepu7scm6waaOo1MgBkKCIew xErlDzhIJU7o5QbGy96B4TliF shh5QaKyk5zb85fUYaj9Z1rIW 9 G1QyYOCogvgxwNUtxSouHA9qN ZKquihiAAHelX2nNCPuY5n6Za JqGkY1OXsrS6EvusS0LPOadYG g SWecPBG0O15dh8A9TWCyNAWnC PX6kNC8mT4inXcahqzyaNEnmX fmmrFepXzgIHfdJYilH129SMH v cRegBJBazO4rVQJtmIVchIdqC G2yJMHuvxdrUn2BSE9SMBwfOy 3SL6QyVSstsKD+CSJsDEH3yOh l EGtiPYGlqW4wCXVvD9b2IoZhK uU2OSlbL6YvXLQfmgdtEw45eT 0rUwAxVjQ3EXgjS5NwhkO1AHT w xQOrJCmhTGJ2N28ny4H4HJYhM IDuVGZ4nQV9oX9cjUtsudvdtV SsaGjxqyMqaMbtEDnuHEulR25 6 WGKzmLjeDqN2ZvJyCbF6GWh0L 1CiAwo9SQQetSdnXT4ppTSbVA pwKt7lcJowmRasMJ8kMGYerrj w QCSlpJ3iYFQddWWqvNfaBB7sT CGpefwfi065WzHtMNO4YAXanH AzC3SklO7tVfAcROFfZJJhN6O l lAZkKEieJ311BAdfOiX6IKFyb aErR3CpOAJbhGxuMoQ8c1Z9Ow 43MyBZZWFyczwvdGQ+PHRkIHN 0 uEyyKRtnWIDewA5zAFNuE1w5M eVcJwS0MOrtO3CuBEDnenssLc 31xB3iQlTfMlQ0PVzuV7TtqkN 6 SGGvlVQtHNmaNDT6K11eo2B2L PLnMOCzFCS2hXO6hR6thUdqbi ogbGVmdDsgdmVydGljYWwtYWx p Z007HTIktCxnAuJTQXUGCKsbl GQ+AXKbPUA4rPoqEVyvOZQycN 3zIFUiC9z2XfNoSwF3QStdA0M h QTXomsvsUm60xJ9uVlPhApK8D CgzA4NusyI8FIQjcOEyPRkiJY V0V53fw8B6IDGfMEOvEEA4uTW 4 sV8unBnjolfnbQUdxIovcuOam CzdPTmaCKyvL545TNWkyGpqBx 9MIA82PA47U4DvEzopiMVwfKO + PHRhYmxlIHdpZHRoPScxMDAlJ aKfnJnmKX6oTu9lUIIsOLIxhP gkhUDbZySjv8bdZVSfYNqoYO9 w oYfaZ1FddGP8YCMwl6t3Zv77L 77aP2TjwVK+KRDgjJG7xOB1uJ 2wLsIsAaC5CBjbY791VgMyxZQ v Bnnws6trv0jbsHo2WfNgNLYzr iQjyUvxBCY3b5NmWx73E95xKB dpZHRoPSIyMCUiIHZhbGlnbj0 i lW0pRx7+PDIecDB7kTV3lF2uA bDrAhY3EQhhI466WnArbFEtLw gnQ59pK7PrxRC+SPHvJkf9HJB z hTzuOF1tzDVvALupIx0dCZW5O nLxZmKqIBsfP7TkCDCzhbkvoj rjfLW1KSDdMMYllQ27Ez3duQn g Eb2oAWXnUBO7KWWynCHsU7Npy B4zZnIbXHYsPRUuD5TsdJQdGH exZ441KSoqHqS0VBByvfNsY9K s ANXkeEnlQuO3g2O8Je5XgShug IIiKN8nJuDaROp6G0FcSby2CL PlmKgiLE8haENqONyaOe1hoJk o vSygOU5nZDBnsshvo537GeSlb 2aaYJAhsDQjEKrkBDR0M22dj2 M2XCSgVYEkTAC3xIQ8hM2otWd n bjogbGVmdDsgdmVydGljYWwtY ZqdJ123KFLsvRsoIsRWPef0M7 VcZcq8MDOsiWwrSL1enERsQSm u Qu5yuSdyjCslYI2mTTZhrqoom 844TnGyp1apTRAbwJAtDPikHY G6Q37oz7A2YGPqDBNrBFN3tVF 4 nS5klNdeqvbubFWnhMvgucJpq WxrGWyyZXivV353SORxlQnxPp 6LGls3D0FcOev1ESTyzXybDN7 n iNYiVEdrUh2rgEzzrYvvOB1hA SIqcovgv549EaHjd0gzRNJweT TsRSupSCW9K39ds6H1ZGAwWIH w USH8mIW3xX4vcBvssvmhuJWzl SbxwvWfzCruZJwhNRldU804EJ RvcDsnPlBheWVyOjwvdGQ+PC9 0 xv59Z9HfOwrhJxi0QFUtVER7i UU3dG2qJFSeLDffp5N7mDQ8B7 IfgaYtbw9ol9qsLUYhWQyrF73 s [facility] (more content not included)... [facility] Consent Formson 01-23-2021 Consent Forms [id number] [facility] Progress Note - Nurseon 01-03 Progress Note - Nurse Dr Nicholson reviews p t chart and no new orders were received. [Electronically Signed on: 01/23/2021 12:10 EST] Martha Romreo RN [Verified on: 01/23/2021 12:10 EST] Martha Romero RN [facility] C MRSA Screenon 01-20-2021 C MRSA Screen Negative [facility] Comment on above: Performed By: #### 4 [id number] #### [facility] (DEFAULT) [address] [place] [address] Provider Orderson 01-20-2021 Provider Orders [id number]#1.00OTGTI [facility] UA Tmxqy1dd 01-19-2021 UA Bacteria None [facility] Comment on above: Order Comment: Urina lysis Microscopic order added on by FRM Study Course Expert Rules system. Performed By: #### 5 [id number] ####[facility] (DEFAULT)[address] [place] [address] UA RBC 3-5 [facility] Comment on above: Order Comment: Urina lysis Microscopic order added on by FRM Study Course Expert Rules system. Performed By: #### 5 [id number] ####[facility] (DEFAULT)[address] [place] [address] UA Squam Epi Rare [facility] Comment on above: Order Comment: Urina lysis Microscopic order added on by Discern Expert Rules system. Performed By: #### 5 [id number] ####[facility] (DEFAULT)[address] [place] [address] UA WBC 0-2 [facility] Comment on above: Order Comment: Urina lysis Microscopic order added on by Discern Expert Rules system. Performed By: #### 5 [id number] ####[facility] (DEFAULT)[address] [place] [address] UA w Culture if Ind Standard on 01-19-2021 Culture? No [facility] Comment on above: Performed By: #### 5 [id number] ####[facility] (DEFAULT)[address] [place] [address] Breakpoint UA [facility] Comment on above: Performed By: #### 5 [id number], [id number] ####[facility] (DEFAULT)[address] [place] [address] Color (U) Yellow [facility] Comment on above: Performed By: #### 5 [id number] ####[facility] (DEFAULT)[address] [place] [address] Glucose (U) [Mass/Vol] Negative [facility] Comment on above: Performed By: #### 5 [id number] ####[facility] (DEFAULT)[address] [place] [address] Ketones Ql (U) Negative [facility] Comment on above: Performed By: #### 5 [id number] ####[facility] (DEFAULT)[address] [place] [address] Micro? Indicated Invalid Interpretation Code [facility] Comment on above: Result Comment: Resu lt created by rule GL_MAGR_ADD_UA_MICRO Performed By: #### 5 [id number], [id number] ####[facility] (DEFAULT)[address] [place] [address] UA Bilirubin Negative Normal [facility] Comment on above: Performed By: #### 5 [id number] ####[facility] (DEFAULT)[address] [place] [address]990 UA Blood MODERATE Abnormal NEGATIVE [facility] Comment on above: Performed By: #### 5 [id number], [id number] ####[facility] (DEFAULT)[address] [place] [address]94 UA Clarity CLEAR Normal CLEAR [facility] Comment on above: Performed By: #### 5 [id number], [id number] ####[facility] (DEFAULT)[address] [place] [address] 12618 UA Leuk Est Negative Normal NEGATIVE [facility] Comment on above: Performed By: #### 5 [id number], [id number] ####[facility] (DEFAULT)[address] [place] [address]40 UA Nitrite Negative Normal NEGATIVE [facility] Comment on above: Performed By: #### 5 [id number], [id number] ####[facility] (DEFAULT)[address] [place] [address] 60940 UA pH 6.0 Normal 5-8 [facility] Comment on above: Performed By: #### 5 [id number], [id number] ####[facility] (DEFAULT)[address] [place] [address]282 UA Protein Negative Normal NEGATIVE [facility] Comment on above: Performed By: #### 5 [id number], [id number] ####[facility] (DEFAULT)[address] [place] [address]246 UA Spec Grav 1.025 Normal 1.001-1.[address] [place] [address] Comment on above: Performed By: #### 5 [id number], [id number] ####[facility] (DEFAULT)[address] [place] [address] 10077 UA Urobilinogen <0.2 Normal 0.2-1.0 [facility] Comment on above: Performed By: #### 5 [id number], [id number] ####[facility] (DEFAULT)[address] [place] [address] Urine Source Clean Catch Normal [facility] Comment on above: Performed By: #### 5 [id number], [id number] ####[facility] (DEFAULT)[address] [place] [address] Coding Summaryon 11-08-2020 Coding Summary HTMLBase 64 WjxvngycVZb1pWx+PGhlYWQ+P X5WYKUpM64fiKOhyM5IY7mLNW 8VGSMCWPLQPN3VVW4ktTW3QLs zP8HryfSr WqpcrZOmVZ54QJp5FBT4nEgaY JhchX7adHMgU4k9SnAvXV99mQ 89IZpnODTdGgE3GwZavdgavCD y Q9teRkFxyZZjVvq+PHRhYmxlI HdpZHRoPScxMDAlJyBzdHlsZT 3dSf1nDUDgNRPzmGarzJMeMbF j n5juZXUqBIyiVC3bnOfnX1Sqa NN5XSKkh2n8Ly03qJA+PHRkIH O4zKcrAMuvd261ReQhj3szKUG 3 aZIaNNniMSX4Q77ul7T7HEKcD DYdDUQ8wYN3vZ1ecUmilqviF5 CzsRYlQfY3EAE3pTYloH0gePa n owhmqU5fBce+N47UCD6IBVWSE S8KRih6B5VwPcbdaRQ+PC90YW LnLU28nXIrvMKkx4tmzMo9ZcD w UVYsOKH8gSiqBAnbf9CfCIVgR 33ovJOvh7N8UIXkxMeuuBCyOh VupTU3gF4eOWnxjvpgx3tzvuy n Civva8tbox02hR85S49lCFyvN WYwUAJ8HRBjVVRwcKwnff0twK 9wIi8+HYzir9zen0aueVi2LcT w RKWtqcIgxRaaHAW6t4RfIy45R 4TrsFolp2PtEqr3zy67lWEgs9 S3jKK5ODuaZIHibQ3lUFyeIfV 6 HRVcFnMbbH81bKXjLFqmCx4zq HkbbSfuUO7nSYRibklePNRdtZ 5uUZRfjAKdmBmjOC3zZJLzdfo m r937PxJgMKJ8GCIvrUFbQ8Czm V3oYvQhOWHhWZHbV3MamQRvSI cjD693JWsbRoQ3VVDoeqQyW8I s LERtdPhfSeM8z6A6Bb0Ux6Yub hknLLP4XXugGAM7CmH8OrNnLh S2K1AqWec8LWOdwFtiUG7tN8R h UBIfzfskrdevmEB8JQWgILCns I56bCZjWVasZl7nd1S4e264QS BvOJJryR17Yw7lcYfiNONitIW U gP2armalb9yuhrzcJmOpMLAgW Il4MUr0QCYmkPnzMqPrVLX5Gg P6JSB9qWIiiX3nyOpckshhrJ2 w Oyc+R83etJ5nZXF8GSD8istwN EIjsdNfBI57UE63I6FtEiojxS FibGU+NTCfjsLseJohXJ2dSbY j d9zfd5OoTQhbT7JkRENlFKslY ci8FGWuLRZ5mQM7cD0xAJXpZK vcu6N1nTV8R8YtnpWkql4tr1r s STBlCTpzI72gpQGnn5L3BWEev AJ6RQDvkLzsZoMfbP08Drx+PG CvaTmag6GhNuccp0enf3jxwFv 9 NaLbNPEvggJswKgiHHR9f9KeP w64L08kOHhfAVEqACMcEUPuQR JkgAeftx7mpC9wYf9+PGNvbCB 3 jYU6fB7iNSQsAlT3VGbjR206C qUrdFXhSkhrg5jhv0ccoTt9Ay HmSQQefiSvpJrmZDH2t1TuLx5 8 J58rJMemDSOaCZIjEMTdGXLzb Acmzx4umV9eIb7+FB3pd8wjgx 96jL90fQG+XLHmAFL4aFypHQj w HZVrbT5kKXuiOnH3IILhHvLil H96lYJcHBpxIw6ldDveoBlbST 5fZQLoycspn915QbTvi3jpKWF w yVGwYYfnVVT0A94yc7U6KVYjX PWmFFG3oIL1vH4uaHfvlusjwT HncFzczeDusDlgQXbeHZtgX18 6 IHRvcDsnPlBhdGllbnQgTmFtZ Lw5L1HdFty3IEBhyUnpJW5ceA XyFYbjKs2wvLiofMvyTL7yJRW p qigas452OjZkh5usDDEiaIEdD DmaJMD4H81go2U4UFSxWUJaKP G8iVU0wH3ipGyftcuarMMyaPh g tzKxyOgiNWinXYpaN786AWGwj CvkSzXsotDkXUMhwLH6JD88GK 43qBRga9I2sFR4Z6FoBHGmvep t yqmthAS6TYLuBSAanZ89Ds5ox MpcNq6sHCWxTAB6JZFhbPDnF1 KigC8cHtClBQLwINGuC6YdcUH t ZKrrI511LTsjCwR9MJJlbtVeH 5TwRLMypVikRhA8o5C2Li0QZ8 G5QU47WA79pWXhs9Z3yWM9Q7J h FJShmpayxglozVU1DYVrAXTou R51Mq8tkXqdZm0jRDPpALN4QE YiuWRqV7CuqH9pVdWwCEIkGJS w O4NhtHBcXYsjO168HDgaKpX7Y FWdyzEtH1CwEGBnhOnjAwA2w7 Y5Qi4EJCo4SQ92RP98pWCrd9B 5 dGT4T2IrMRBgqcxgqidloUY2G VGsBMYulJ42Pd6rbFjpUp3aXX ZgAZK2UPTqsSBiU0YuaE3pCvN j DMZyPJPrM3AaaNYjZIyaI400O GsePdH8VVGzrzBxI2BmWMVvrK bxYcS4d7Y8Bq6TTDSzVM68BIV 5 vJN0WI98VX70V0PcKkslxUZzc +PHRhYmxlIHdpZHRoPScxMD QrSiWvoCvcLH2aMp5dDILwMLO v eHktlWBlMhRea7cxHQYnPRkzC B9haAmhQ2XrxCE3DMCsw7y2Em 59N84wC7PsyAB+GJBpwQB5dLV 0 zH3bHjSxNaZ9DEtyL260VfSze QEhIfbzj0hiz9pbwIo0WhV4VY HhcgQukShsAUA0b4KkTj31N46 s IHdpZHRoPSIxNSUiIHZhbGlnb b5dvZ0uQx6+ATJbwWP6dMM4cR 0zLhLkOqO1SKynM991DzWkmBQ v Anpuc2bco0pstHt1DkBvNPUot cPyvIxdTSU3j3VlXl18P1NkdJ rtn3UxLmn4om42hJTle6I6wPD 9 G9EpWRSjndojeSJqxCboPA6fL QLrmanzRYHlwO3cEPRbP1v2Zu IoKuR1VDuuI2NcvxM1KDYdrDH g FIojOYK4W05ak3Z7GGAlWEHzJ ZR6zNC7pA8rwNarqzuxnRJgoF daebMaqUiyCBwwTOgoQ842JKB v bXtjDAFhxQ0jQBMixXQnlGktS O1hPOBpoofbUr4XFU7IYDlxLr 0CC2NqRBapcDT+XZApCIV8rRc l ENwnXHDxgD2yOENuP8d3MuYzB cE8UJmkZ2XfSQQkssnrTl85nY 3rDqVfRuN5FUrvU2VvmfH5TBM w lPVjZOkpOIH6I70nb9Y7QFPcI ORaZDM3jSL9gU4fhNrdziiwgI AmqQeraoMqpZvrGBnmFIskC12 6 DUQurKztZzZ6GzVnQrB6BPt8U 5SlFpv2XXCznJdbYT7igLFuCW hpZx4xqDkdgGtxKW2dWILxmpo w OKQozO4zVIZwmQVpmPloHF5tA CYlzoyth128OdIgZXV3YGGqiA AtR5UlwI2eElNsWJTxOMNfT0L l vTNwOHmwB063BRoaRrO4QQJln tFqT4WzFBDbtOwhKkC9n7E3Tp 43MyBZZWFyczwvdGQ+PHRkIHN 0 aWeiXYmmBLSkoG6yTZPqQ9e0Y eZnLtA4DMrwT8VfGSTxuacmHk 67pA8yAeHuXlY3WWnaK0DoeyS 6 KKQvnSViOUtaRPK5Z08kz1I5M TOiAWTgHAI4tTL3pU3msLlojg ogbGVmdDsgdmVydGljYWwtYWx p J759NFEcnVasFrUXEIXDVYmov GQ+WYUeWET8hQqbXCqsVKCfvA 4tKBPuI3j1WrBzNnP3IUepF6P h HHBalibeLg08uI0kYmHsAiY2Z TlyG4BnetN8CBPghMYlEWniPC R8V32pd0X4HARqVJGwHMM9uQJ 4 mX9jfCfztjstbKSxsTztcjKqf FqjLRrxAFugZ468EMQbqBmaXe 9FYV00VI51L4LaEgofsUIvsVK + PHRhYmxlIHdpZHRoPScxMDAlJ tVowFtpJK8qCz7hWNWnDENqpK gtnSMeCvGem1tpOONiXFrlYA2 w cLziT6YprGC1ILTjh0u7Iw69D 23hA2KsiJM+EROcwFR9mRS3hH 6vDvBpErC4KAmrQ610PdLrdFS v Oitvc3zim3afzEa4FmYbGGCtk zZqxFhrZBD0u0JlIy41A14hTT dpZHRoPSIyMCUiIHZhbGlnbj0 i jN4vNl4+AZYngQN3fZM7bK1gM jYdBoN4ALqoW329GhFuyZJgFu rpI58tG2WkbAN+JWZrVel0CJF z iElzOE0ctZBwUKydSh5oIBF0U hMwMhSrHMzjB1EeUPQgdpfrbt bogGI7OQVjFOPeeO89Vr8ymUn g Ln3xHFXaGLR4FSTygYNwC0Lof L8lKlWaROQoIEUhE7PslLNnAZ wxR802YFyrUzN8ZXRjwaXfW3Q s TCVleOzgZeA2i1J4So7HkCscx OGjNN5rCcIdXPm6D1IsJql0MY VurPiyGD4jaOFoEEahRt0psMg o nHjrTA0xBFYjyiafi960XfXqt 1pyYQWpfLTjAPqmEVG1M98lq2 R0LQAyFJXlSPT1vAV9lQ9ybRr n bjogbGVmdDsgdmVydGljYWwtY VldP009FSYkbOctJpQXTei9Y6 PyMdo0QEZmlHpvGU5ljYInEDr u Gv9dpMzmnTpkFT0pCKJuqjgji 550ApKqx5lmFUVpbBQrFXsjQP V2W30ls0O6MGBjKGUtJPK9fKM 4 lS1puEcpufhkkADqoEcobhLnk HpkNUhiEVmhG071QFTtrTvuIg 9JDve7J1IzTbm4XTSuhSwbKW2 n aQLnSOalDb3tuAmrlXwwHK7xY SHlsmbpa241VmQbd7fcUGQliY BeGSkjIMB7V29yu0Z8DIGkVGN w KTE6gPC6lB2jaEpnjosvlNEjt NbnqiAeaFraUGvaZJgmZ819YL RvcDsnPlBheWVyOjwvdGQ+PC9 0 du72R3AoOusuGzf8ZOVyGMR0v RG5dQ4gOKLzMUjws7U9wYR4S1 LejpLfnt3dv3ggPFEyZGknH39 s b[facility] (more content not included)... [facility] Consent Formson 11-08-2020 Consent Forms [id number]#1.00OTGTI [facility] Progress Note - Nurseon Progress Note - Nurse PAT review for jennifer parra on 11-28-2020 done per anesthesiologist, Dr. Arreguin- no additional orders received. [Electronically Signed on: 11/08/2020 14:35 EDT] Kristina Schulte RN [Verified on: 11/08/2020 14:35 EDT] Kristina Schulte RN [facility] Provider Orderson 11-08-2020 Provider Orders [id number]#1.00OTGTI [facility] C Urineon 11-06-2020 C Urine Urine Culture ordere d as a result of parameters set on specific urine dip and urine microsopic results. <10,000 cfu/ml [facility] Comment on above: Performed By: #### 4 [id number] #### [facility] (DEFAULT) [address] [place] [address] .Auto Diff 1on 11-05-2020 Auto Andrews % 11 % Normal 1-12 [facility] Comment on above: Performed By: #### 4 [id number] #### [facility] (DEFAULT) [address] [place] [address] 16496 Baso Abs# 0.0 x10 Normal 0.0-0.2 [facility] Comment on above: Performed By: #### 4 [id number] #### [facility] (DEFAULT) [address] [place] [address] 27112 Basophils/100 WBC (Bld) 0.5 % Normal 0.2-2.0 [facility] Comment on above: Performed By: #### 4 [id number] #### [facility] (DEFAULT) [address] [place] [address] 09215 Eos Abs# 0.2 x10 Normal 0.0-0.4 [facility] Comment on above: Performed By: #### 4 [id number] #### [facility] (DEFAULT) [address] [place] [address] 39924 Eosinophils/100 WBC (Bld) 4.0 % Normal 0.9-4.0 [facility] Comment on above: Performed By: #### 4 [id number] #### [facility] (DEFAULT) [address] [place] [address] 66868 Lymph Abs# 1.4 x10 Normal 1.3-2.9 [facility] Comment on above: Performed By: #### 4 [id number] #### [facility] (DEFAULT) [address] [place] [address] 21505 Lymphocytes/100 WBC (Bld) 24 % Normal 14-48 [facility] Comment on above: Performed By: #### 4 [id number] #### [facility] (DEFAULT) [address] [place] [address] 39405 Andrews Abs# 0.6 x10 Normal 0.0-0.8 [facility] Comment on above: Performed By: #### 4 [id number] #### [facility] (DEFAULT) [address] [place] [address] Neut Abs# 3.3 x10 Normal 1.5-9.2 [facility] Comment on above: Performed By: #### 4 [id number] #### [facility] (DEFAULT) [address] [place] [address] Neutrophils/100 WBC (Bld) 60 % Normal 44-88 [facility] Comment on above: Performed By: #### 4 [id number] #### [facility] (DEFAULT) [address] [place] [address] C MRSA Screenon 11-05-2020 C MRSA Screen Negative Normal [facility] Comment on above: Performed By: #### 1 [id number] ####[facility] (DEFAULT)[address] [place] [address] CBC w/ Auto Diffon Erythrocyte distribution width (RBC) [Ratio] 13.7 % Normal 11.5-15.0 [facility] Comment on above: Performed By: #### 4 [id number] #### [facility] (DEFAULT) [address] [place] [address] Hematocrit (Bld) [Volume fraction] 45.4 % High 33.7-40.4 [facility] Comment on above: Performed By: #### 4 [id number] #### [facility] (DEFAULT) [address] [place] [address] Hemoglobin (Bld) [Mass/Vol] 14.4 g/dL Normal 11.3-15.9 [facility] Comment on above: Performed By: #### 4 [id number] #### [facility] (DEFAULT) [address] [place] [address] Instr WBC 5.5 x10 Invalid Interpretation Code [facility] Comment on above: Performed By: #### 4 [id number] #### [facility] (DEFAULT) [address] [place] [address] Man Diff? Auto Normal [facility] Comment on above: Performed By: #### 4 [id number] #### [facility] (DEFAULT) [address] [place] [address] MCH (RBC) [Entitic mass] 29 pg Normal 24-34 [facility] Comment on above: Performed By: #### 4 [id number] #### [facility] (DEFAULT) [address] [place] [address] MCHC (RBC) [Mass/Vol] 32 g/dL Normal 26-37 [facility] Comment on above: Performed By: #### 4 [id number] #### [facility] (DEFAULT) [address] [place] [address] MCV (RBC) [Entitic vol] 92 fL Normal 81-100 [facility] Comment on above: Performed By: #### 4 [id number] #### [facility] (DEFAULT) [address] [place] [address] Platelet 261 x10 Normal 138-427 [facility] Comment on above: Performed By: #### 4 [id number] #### [facility] (DEFAULT) [address] [place] [address] Platelet mean volume (Bld) [Entitic vol] 10.5 fL High 6.3-10.2 [facility] Comment on above: Performed By: #### 4 [id number] #### [facility] (DEFAULT) [address] [place] [address] RBC 4.91 x10 Normal 3.70-5.30 [facility] Comment on above: Performed By: #### 4 [id number] #### [facility] (DEFAULT) [address] [place] [address] WBC 5.5 x10 Normal 3.5-10.5 [facility] Comment on above: Performed By: #### 4 [id number] #### [facility] (DEFAULT) [address] [place] [address] BMP Standardon 11-04-2020 eGFR Non AA >60 Invalid Interpretation Code [facility] Comment on above: Performed By: #### 4 [id number] #### [facility] (DEFAULT) [address] [place] [address] eGFR AA >60 Invalid Interpretation Code [facility] Comment on above: Result Comment: [employer] Worker pepper Kidney disease could be indicated at eGFRs of less than 60 ml/min/1.73m2. Kidney Failure is indicated at less than 15 ml/min/1.73m2 Performed By: #### 4 [id number] #### [facility] (DEFAULT) [address] [place] [address]181 Anion gap [Moles/Vol] 15.0 mmol/L Normal 5.0-19.0 [facility] Comment on above: Performed By: #### 4 [id number] #### [facility] (DEFAULT) [address] [place] [address]397 Calcium [Mass/Vol] 9.0 mg/dL Normal 8.9-10.3 [facility] Comment on above: Performed By: #### 4 [id number] #### [facility] (DEFAULT) [address] [place] [address]36 Chloride [Moles/Vol] 98 mmol/L Low 101-111 [facility] Comment on above: Performed By: #### 4 [id number] #### [facility] (DEFAULT) [address] [place] [address] 36855 CO2 [Moles/Vol] 28 mmol/L Normal 21-32 [facility] Comment on above: Performed By: #### 4 [id number] #### [facility] (DEFAULT) [address] [place] [address]5947 Creatinine [Mass/Vol] 0.86 mg/dL Normal 0.60-1.30 [facility] Comment on above: Performed By: #### 4 [id number] #### [facility] (DEFAULT) [address] [place] [address]457 Glucose [Mass/Vol] 96.0 mg/dL Normal 74.0-118.0 [facility] Comment on above: Performed By: #### 4 [id number] #### [facility] (DEFAULT) [address] [place] [address]284 Osmolality 274 mOsm/L Invalid Interpretation Code [facility] Comment on above: Performed By: #### 4 [id number] #### [facility] (DEFAULT) [address] [place] [address]372 Potassium [Moles/Vol] 4.1 mmol/L Normal 3.6-5.1 [facility] Comment on above: Performed By: #### 4 [id number] #### [facility] (DEFAULT) [address] [place] [address] Sodium [Moles/Vol] 137.0 mmol/L Normal 136.0-144 . 0 [facility] Comment on above: Performed By: #### 4 [id number] #### [facility] (DEFAULT) [address] [place] [address] Urea nitrogen [Mass/Vol] 15 mg/dL Normal 8-26 [facility] Comment on above: Performed By: #### 4 [id number] #### [facility] (DEFAULT) [address] [place] [address] Urea nitrogen/Creatinine [Mass ratio] 17.0 mg/mg High 4.6-16.2 [facility] Comment on above: Performed By: #### 4 [id number] #### [facility] (DEFAULT) [address] [place] [address] UA Qtusc3tk 11-04-2020 UA Bacteria Trace Normal [facility] Comment on above: Order Comment: Urina lysis Microscopic order added on by FRM Study Course Expert Rules system. Performed By: #### 4 [id number] #### [facility] (DEFAULT) [address] [place] [address] UA RBC >100 Normal [facility] Comment on above: Order Comment: Urina lysis Microscopic order added on by FRM Study Course Expert Rules system. Performed By: #### 4 [id number] #### [facility] (DEFAULT) [address] [place] [address] UA Squam Epi Rare Normal [facility] Comment on above: Order Comment: Urina lysis Microscopic order added on by FRM Study Course Expert Rules system. Performed By: #### 4 [id number] #### [facility] (DEFAULT) [address] [place] [address] UA WBC 50-60 Normal [facility] Comment on above: Order Comment: Urina lysis Microscopic order added on by FRM Study Course Expert Rules system. Performed By: #### 4 [id number] #### [facility] (DEFAULT) [address] [place] [address] UA w Culture if Ind Standard on 11-04-2020 Breakpoint UA [facility] Comment on above: Performed By: #### 4 [id number] #### [facility] (DEFAULT) [address] [place] [address] 38630 Color (U) Yellow [facility] Comment on above: Performed By: #### 4 [id number] #### [facility] (DEFAULT) [address] [place] [address]878 Culture? Indicated Invalid Interpretation Code [facility] Comment on above: Result Comment: Resu lt created by rule GL_MAGR_ADD_UA_CULT Result created by rule GL_MAGR_ADD_UA_CULT Result created by rule GL_MAGR_ADD_UA_CULT1 Result created by rule GL_MAGR_ADD_UA_CULT Performed By: #### 4 [id number] #### [facility] (DEFAULT) [address] [place] [address] [id number] Glucose (U) [Mass/Vol] Negative [facility] Comment on above: Performed By: #### [id number] #### [facility] (DEFAULT) [address] [place] [address] [phone] Ketones Ql (U) Negative [facility] Comment on above: Performed By: #### 4 [id number] #### [facility] (DEFAULT) [address] [place] [address] 59139 Micro? Indicated Normal [facility] Comment on above: Result Comment: Resu lt created by rule GL_MAGR_ADD_UA_MICRO Performed By: #### [id number] #### [facility] (DEFAULT) [address] [place] [address] 64639 UA Bilirubin Negative Normal [facility] Comment on above: Performed By: #### 4 [id number] #### [facility] (DEFAULT) [address] [place] [address] 65439 UA Blood LARGE Abnormal NEGATIVE [facility] Comment on above: Performed By: #### 4 [id number] #### [facility] (DEFAULT) [address] [place] [address] 37882 UA Clarity CLOUDY Abnormal CLEAR [facility] Comment on above: Performed By: #### 4 [id number] #### [facility] (DEFAULT) [address] [place] [address] 71424 UA Leuk Est LARGE Abnormal NEGATIVE [facility] Comment on above: Performed By: #### 4 [id number] #### [facility] (DEFAULT) [address] [place] [address] 75928 UA Nitrite Negative Normal NEGATIVE [facility] Comment on above: Performed By: #### 4 [id number] #### [facility] (DEFAULT) [address] [place] [address] 38948 UA pH 7.0 Normal 5-8 [facility] Comment on above: Performed By: #### 4 [id number] #### [facility] (DEFAULT) [address] [place] [address] 47295 UA Protein Negative Normal [facility] Comment on above: Performed By: #### 4 [id number] #### [facility] (DEFAULT) [address] [place] [address] 37396 UA Spec Grav 1.015 Normal 1.001-1.[address] [place] [address] Comment on above: Performed By: #### 4 [id number] #### [facility] (DEFAULT) [address] [place] [address] 52041 UA Urobilinogen 0.2 mg/dL Normal 0.2-1.0 [facility] Comment on above: Performed By: #### 4 [id number] #### [facility] (DEFAULT) [address] [place] [address] 51709 Urine Source Clean Catch Normal [facility] Comment on above: Performed By: #### 4 [id number] #### [facility] (DEFAULT) [address] [place] [address] 91763 Vital Signs Date Time Vital Sign Value Performing Clinician Facility 04-02-2023 09:16-0500 Body height 152.4 cm Nani Calloway MD Work Phone: [facility] 04-02-2023 09:16-0500 Body mass index (BMI) [Ratio] 42.97 kg/m2 Nani Calloway MD Work Phone: [facility] 04-02-2023 09:16-0500 Body weight 99.79 kg Nani Calloway MD Work Phone: [facility] 04-02-2023 09:16-0500 Diastolic blood pressure 94 mm[Hg] Nani Calloway MD Work Phone: [facility] 04-02-2023 09:16-0500 Heart rate 84 /min Nani Calloway MD Work Phone: [facility] 04-02-2023 09:16-0500 Systolic blood pressure 144 mm[Hg] Nani Calloway MD Work Phone: [facility] 02-19-2023 14:45-0500 Body height 154.94 cm Wan Mast Other [facility] Other 02-19-2023 14:45-0500 Body mass index (BMI) [Ratio] 41.36 kg/m2 Wan Mast Other [facility] Other 02-19-2023 14:45-0500 Body temperature 97.3 [degF] Wan Mast Other [facility] Other 02-19-2023 14:45-0500 Body weight 99.29 kg Wan Mast Other [facility] Other 02-19-2023 14:45-0500 Diastolic blood pressure 72 mm[Hg] Wan Mast Other [facility] Other 02-19-2023 14:45-0500 Respiratory rate 18 /min Wan Mast Other [facility] Other 02-19-2023 14:45-0500 SaO2% (BldA) [Mass fraction] 95 % Wan Mast Other [facility] Other 02-19-2023 14:45-0500 Systolic blood pressure 110 mm[Hg] Wan Gallo Other [facility] Other 01-22-2023 11:00-0500 Body height 154.9 cm Jacqueline Campos [employer]ODU[employer] INSPECTOR-CREDIT RISK MANAGER Work Phone: [facility] 01-22-2023 11:00-0500 Body mass index (BMI) [Ratio] 42.89 kg/m2 Jacqueline Campos [employer]ODU[employer] INSPECTOR-CREDIT RISK MANAGER Work Phone: [facility] 01-22-2023 11:00-0500 Body weight 102.97 kg Jacqueline Campos [employer] INSPECTOR-CREDIT RISK MANAGER Work Phone: [facility] 01-22-2023 11:00-0500 Diastolic blood pressure 80 mm[Hg] Jacqueline Campos [employer] INSPECTOR-CREDIT RISK MANAGER Work Phone: [facility] 01-22-2023 11:00-0500 Heart rate 76 /min Jacqueline Campos [employer] INSPECTOR-CREDIT RISK MANAGER Work Phone: [facility] 01-22-2023 11:00-0500 Systolic blood pressure 120 mm[Hg] Jacqueline Campos [employer] INSPECTOR-CREDIT RISK MANAGER Work Phone: [facility] 01-18-2023 12:02-0500 Body temperature 98.3 [degF] MD Nicole Vargas Work Phone: [facility] 01-18-2023 12:02-0500 Heart rate 75 /min MD Nicole Vargas Work Phone: [facility] 01-18-2023 12:02-0500 Respiratory rate 18 /min MD Nicole Vargas Work Phone: [facility] 01-18-2023 12:02-0500 SaO2% (BldA) [Mass fraction] 95 % MD Nicole Vargas Work Phone: [facility] 01-18-2023 07:26-0500 Diastolic blood pressure 71 mm[Hg] MD Nicole Vargas Work Phone: [facility] 01-18-2023 07:26-0500 Systolic blood pressure 141 mm[Hg] MD Nicole Vargas Work Phone: [facility] 01-18-2023 05:31-0500 Body weight 104.2 kg MD Nicole Vargas Work Phone: [facility] 01-17-2023 12:43-0500 Body height 154.94 cm MD Nicole Vargas Work Phone: [facility] 12-25-2022 10:12-0400 Body height 154.9 cm Nani Calloway MD Work Phone: [facility] 12-25-2022 10:12-0400 Body mass index (BMI) [Ratio] 42.14 kg/m2 Nani Calloway MD Work Phone: [facility] 12-25-2022 10:12-0400 Body weight 101.15 kg Nani Calloway MD Work Phone: [facility] 12-25-2022 10:12-0400 Diastolic blood pressure 88 mm[Hg] Nani Calloway MD Work Phone: [facility] 12-25-2022 10:12-0400 Heart rate 77 /min Nani Calloway MD Work Phone: [facility] 12-25-2022 10:12-0400 Systolic blood pressure 132 mm[Hg] Nani Calloway MD Work Phone: [facility] 12-10-2022 11:00-0400 Body height 154.94 cm Jani Aguilera Other [facility] Other 12-10-2022 11:00-0400 Body mass index (BMI) [Ratio] 42.06 kg/m2 Jani Willy Other [facility] Other 12-10-2022 11:00-0400 Body temperature 96.8 [degF] Jani Willy Other [facility] Other 12-10-2022 11:00-0400 Body weight 100.97 kg Jani Willy Other [facility] Other 12-10-2022 11:00-0400 Diastolic blood pressure 85 mm[Hg] Jani Willy Other [facility] Other 12-10-2022 11:00-0400 Respiratory rate 18 /min Jani Willy Other [facility] Other 12-10-2022 11:00-0400 SaO2% (BldA) [Mass fraction] 95 % Jani Willy Other [facility] Other 12-10-2022 11:00-0400 Systolic blood pressure 130 mm[Hg] Jani Willy Other [facility] Other 10-31-2022 14:21-0400 Body height 154.94 cm MD Nicole Vargas Work Phone: [facility] 10-31-2022 14:21-0400 Body weight 100.24 kg MD Nicole Vargas Work Phone: [facility] 10-31-2022 14:00-0400 Diastolic blood pressure 92 mm[Hg] MD Nicole Vargas Work Phone: [facility] 10-31-2022 14:00-0400 Heart rate 80 /min MD Nicole Vargas Work Phone: [facility] 10-31-2022 14:00-0400 Systolic blood pressure 176 mm[Hg] MD Nicole Vargas Work Phone: [facility] 05-31-2022 10:40-0400 Body height 154.94 cm China Noland Other [facility] Other 05-31-2022 10:40-0400 Body mass index (BMI) [Ratio] 40.81 kg/m2 China Noland Other [facility] Other 05-31-2022 10:40-0400 Body temperature 97.3 [degF] China Noland Other [facility] Other 05-31-2022 10:40-0400 Body weight 97.98 kg China Noland Other [facility] Other 05-31-2022 10:40-0400 Respiratory rate 18 /min China Noland Other [facility] Other 05-31-2022 10:40-0400 SaO2% (BldA) [Mass fraction] 94 % China Noland Other [facility] Other 05-15-2022 14:48-0400 Body height 155 cm Ruth Ann Marlin PA-C Work Phone: [facility] 05-15-2022 14:48-0400 Body temperature 97.5 [degF] Ruth Ann Marlin PA-C Work Phone: [facility] 05-15-2022 14:48-0400 Body weight 100.97 kg Ruth Ann Marlin PA-C Work Phone: [facility] 05-15-2022 14:48-0400 Diastolic blood pressure 97 mm[Hg] Ruth Ann Marlin PA-C Work Phone: [facility] 05-15-2022 14:48-0400 Heart rate 87 /min Ruth Ann Marlin PA-C Work Phone: [facility] 05-15-2022 14:48-0400 Respiratory rate 18 /min Ruth Ann Gutierres PA-C Work Phone: [facility] 05-15-2022 14:48-0400 SaO2% (BldA) [Mass fraction] 95 % Ruth Ann Gutierres PA-C Work Phone: [facility] 05-15-2022 14:48-0400 Systolic blood pressure 158 mm[Hg] Ruth Ann Gutierres PA-C Work Phone: [facility] 03-02-2022 18:15-0500 Body height 154.94 cm China Nloand Other [facility] Other 03-02-2022 18:15-0500 Body mass index (BMI) [Ratio] 40.96 kg/m2 China Noland Other [facility] Other 03-02-2022 18:15-0500 Body temperature 97.8 [degF] China Noland Other [facility] Other 03-02-2022 18:15-0500 Body weight 98.34 kg China Noland Other [facility] Other 03-02-2022 18:15-0500 Respiratory rate 18 /min China Noland Other [facility] Other 03-02-2022 18:15-0500 SaO2% (BldA) [Mass fraction] 92 % China Noland Other [facility] Other 12-06-2021 12:00-0400 Body height 154.94 cm Jani Aguilera Other [facility] Other 12-06-2021 12:00-0400 Body mass index (BMI) [Ratio] 42.13 kg/m2 Jani Willy Other [facility] Other 12-06-2021 12:00-0400 Body temperature 97.1 [degF] Jani Willy Other [facility] Other 12-06-2021 12:00-0400 Body weight 101.15 kg Jani Willy Other [facility] Other 12-06-2021 12:00-0400 Diastolic blood pressure 82 mm[Hg] Jani Willy Other [facility] Other 12-06-2021 12:00-0400 Respiratory rate 20 /min Jani Willy Other [facility] Other 12-06-2021 12:00-0400 SaO2% (BldA) [Mass fraction] 92 % Jani Willy Other [facility] Other 12-06-2021 12:00-0400 Systolic blood pressure 125 mm[Hg] Jani Willy Other [facility] Other Encounters Encounter Date Encounter Type Care Provider Facility Start: 04-02-2023 End: 04-02-2023 ambulatory NANI Napier [facility] Start: 04-02-2023 End: 04-02-2023 Office outpatient visit 25 minutes Nani Calloway MD Work Phone: [facility] Comment on above: Stented coronary art raul (Primary Dx); 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; Essential hypertension, benign; Mixed hyperlipidemia; Abnormal stress test; Morbid obesity ([facility]/HCC) Start: 03-05-2023 End: 01-02-2024 ambulatory BERNADINE DIAZ Not Available Start: 02-19-2023 End: 02-19-2023 ambulatory Wan Mast Other [facility] Other Start: 02-19-2023 Office outpatient vi sit 25 minutes Wan Mast [facility] Start: 02-19-2023 Telephone encounter Wan Mast [facility] [place] Start: 02-05-2023 End: 02-05-2023 ambulatory Nicole Vargas Facility:[facility] Start: 02-05-2023 End: 02-05-2023 ambulatory [facility] Ambulatory Start: 01-22-2023 Telephone encounter Ordering Provide r [facility] [place] Start: 01-22-2023 End: 01-22-2023 ambulatory JACQUELINE CAMPOS [facility] Other Start: 01-22-2023 End: 01-22-2023 Office outpatient visit 25 minutes Jacqueline Campos [employer] INSPECTOR-CREDIT RISK MANAGER Work Phone: [facility] Comment on above: Coronary artery dise ase involving samish coronary artery of samish heart without angina pectoris (Primary Dx); S/P angioplasty with stent; Angina pectoris (CMS/HCC); Essential hypertension, benign; Mixed hyperlipidemia; BMI 40.0-44.9, adult (CMS/HCC) Start: 01-17-2023 End: 01-18-2023 ambulatory Nicole Vargas Facility:[facility] Start: 01-17-2023 End: 01-18-2023 Admission to same day surgery center MD Nicole Vargas Work Phone: [facility] Work Phone: Start: 01-17-2023 End: 01-18-2023 ambulatory MD Nicole Vargas Work Phone: [facility] Work Phone: Start: 01-15-2023 End: 01-15-2023 ambulatory Cardoza Calloway Facility:[facility] Start: 01-15-2023 End: 01-15-2023 Patient encounter procedure MD Nicole Vargas Work Phone: [facility] Work Phone: Start: 12-25-2022 End: 12-25-2022 ambulatory NANI CALLOWAY [facility] Ambulatory Start: 12-25-2022 End: 12-25-2022 Office outpatient new 60 minutes Nani Calloway MD Work Phone: [facility] Comment on above: Abnormal stress test ; Angina pectoris (CMS/HCC); Abnormal EKG; Hyperlipidemia, unspecified hyperlipidemia type; Essential hypertension, benign Start: 12-10-2022 End: 12-10-2022 ambulatory Jani Willy Other [facility] Other Start: 12-10-2022 Office outpatient vi sit 15 minutes Jani Willy [facility] Start: 10-31-2022 End: 10-31-2022 ambulatory Shellie Jennings Facility:[facility] Start: 10-31-2022 End: 10-31-2022 ambulatory MD Nicole Vargas Work Phone: [facility] Work Phone: Start: 10-31-2022 End: 10-31-2022 Patient encounter procedure MD Nicole Vargas Work Phone: [facility] Work Phone: Start: 10-31-2022 ambulatory Facility:[id number] Start: 06-10-2022 End: 06-11-[address] ARY DORADO Facility:[facility] Start: 06-06-2022 End: 06-07-2022 ambulatory SUZE MARROQUIN Facility:[facility] Start: 05-31-2022 End: 05-31-2022 ambulatory China Noland Other [facility] Other Start: 05-31-2022 Office outpatient vi sit 25 minutes China Noland [facility] Start: 05-15-2022 End: 05-15-2022 ambulatory Ruth Ann Gutierres PA-C Work Phone: Hematology/Oncology Comment on above: Malignant [...] 03-02-2022 End: 03-02-2022 ambulatory China Noland Other [facility] Other Start: 03-02-2022 Office outpatient vi sit 15 minutes China Noland [facility] Start: 01-23-2022 Refill Ruth Ann Gutierres PA-C Work Phone: Hematology/Oncology Comment on above: Refill Request Start: 12-06-2021 End: 12-06-2021 ambulatory Jani Willy Other [facility] Other Start: 12-06-2021 Office outpatient vi sit 25 minutes Jani Willy [facility] Start: 10-31-2021 End: 11-01-[address] NICOLE VARGAS Facility:[facility] Procedures Date Procedure Procedure Detail Performing Clinician Start: 04-02-2023 Alanine aminotransfe rase [Enzymatic activity/volume] in Serum or Plasma NANI CALLOWAY Start: 04-02-2023 Aspartate aminotrans ferase [Enzymatic activity/volume] in Serum or Plasma NANI CALLOWAY Start: 04-02-2023 Basic metabolic 2000 panel - Serum or Plasma NANI MACDONALDAHIM Start: 04-02-2023 Lipid panel NANI [facility]DONALD [facility] Start: 04-02-2023 FOLLOW UP IN CARDIOLOGY NANI CALLOWAY Start: 02-05-2023 FOLLOW UP IN CARDIOLOGY NANI CALLOWAY Start: 01-22-2023 FOLLOW UP IN CARDIOLOGY NANI CALLOWAY Start: 01-17-2023 Antibody screen Nani Calloway Comment on above: Result Comment: PERF ORMED BY: [facility] [place] [address] PATHOLOGIST PIPE COVERER SHELLI CHARLES M.D. Start: 01-17-2023 CT of abdomen and pe lvis without contrast MD Nicole Vargas Work Phone: Start: 01-17-[address] acement 0 MD Nicole Vargas Work Phone: Start: [...] NANI BASS Start: 12-25-2022 CARDIAC STRESS TEST HAS DANIEL CALLOWAY Start: 12-25-2022 Ecg routine ecg w/le ast 12 lds w/i&r Nani Calloway MD Work Phone: Start: 12-25-2022 CARDIAC STRESS TEST Gen wan Provider Scanning Start: 10-31-2022 Radionuclide myocard ial perfusion stress study MD Nicole Vargas Work Phone: Start: 04-11-2018 Colonoscopy Ruth Ann quiñonez PA-C Work Phone: Plan of Treatment Date Care Activity Detail Author Start: 10-23-2025 DTaP/Tdap/Td Vaccines (2 - Tdap) DTaP/Tdap/Td Vaccines (2 - Tdap) [facility] Start: 10-23-2025 Urine microalbumin profile DTAP,TDAP,TD (2 - Tdap) [facility] Start: 05-15-2025 DIABETES SCREEN DIABETES SCREEN [facility] Start: 08-08-2023 End: 08-08-2023 Patient encounter procedure 08/08/2023 9:10 AM EDT Office Visit [facility] [address] [place] [id number] Nani Calloway MD [address] [place] [address] [facility] Start: 04-16-2023 End: 04-02-2024 Basic metabolic 2000 panel - Serum or Plasma Basic Metabolic Panel Lab Routine 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 Essential hypertension, benign Expected: 04/16/2023 (Approximate), Expires: 04/02/2024 [facility] Work Phone: Comment on above: Expected: 04/16/2023 (Approximate), Expi res: 04/02/2024 Start: 04-02-2023 End: 04-02-2024 Alanine aminotransferase [Enzymatic activity/volume] in Serum or Plasma by With P-5'-P Alanine Aminotransferase Lab Routine 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 Mixed hyperlipidemia Expected: 04/02/2023 (Approximate), Expires: 04/02/2024 [facility] Work Phone: Comment on above: Expected: 04/02/2023 (Approximate), Expi res: 04/02/2024 Start: 04-02-2023 End: 04-02-2024 Aspartate aminotransferase [Enzymatic activity/volume] in Serum or Plasma by With P-5'-P Aspartate Aminotransferase Lab Routine 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 Service Area Work Phone: Comment on above: Expected: 04/02/2023 (Approximate), Expi res: 04/02/2024 Start: 04-02-2023 End: 04-02-2023 Patient encounter procedure 04/02/2023 9:20 AM EST Office Visit [facility] [address] [place] [address] Nani Calloway MD [address] [place] [address] [facility] Start: 01-18-2023 [facility] Start: 01-18-2023 Hospital admission [facility] Start: 01-17-2023 [facility] Start: 11-02-2022 COVID-19 Vaccine ( season) COVID-19 Vaccine ( season) [facility] Start: 11-02-2022 Influenza vaccination Influenza Vaccine (#1) [facility] Start: 10-31-2022 Radionuclide myocardial perfusion stress study NM ag perf SPECT rest & str [facility] Start: 10-31-2022 SPECT Heart perfusion at rest and W stress and W radionuclide IV [facility] Start: 03-04-2022 ADVANCE DIRECTIVE DISCUSSION ADVANCE DIRECTIVE DISCUSSION [facility] Start: 03-04-2022 DEPRESSION ASSESSMENT DEPRESSION ASSESSMENT [facility] Start: 02-26-2022 COVID-19 Vaccine (3 - Booster for Nicky series) COVID-19 Vaccine (3 - Booster for Nicky series) [facility] Start: 11-02-2021 Influenza vaccination INFLUENZA (#1) [facility] Start: 05-26-2021 COVID-19 VACCINE (3 - Booster for Nicky series) COVID-19 VACCINE (3 - Booster for Nicky series) [facility] Start: 03-28-2021 DIABETES SCREEN DIABETES SCREEN [facility] Start: 03-04-2021 ADVANCE DIRECTIVE DISCUSSION ADVANCE DIRECTIVE DISCUSSION [facility] Start: 03-04-2021 DEPRESSION ASSESSMENT DEPRESSION ASSESSMENT [facility] Start: 04-11-2019 Colonoscopy COLONOSCOPY [facility] Start: 04-11-2019 COLORECTAL CANCER SCREENING COLORECTAL CANCER SCREENING [facility] Start: 03-12-2018 PNEUMOCOCCAL: 65+ (2 - PCV) PNEUMOCOCCAL: 65+ (2 - PCV) [facility] Start: 09-12-2012 BONE DENSITY BONE DENSITY [facility] Start: 09-12-1997 SHINGRIX VACCINE (1 of 2) SHINGRIX VACCINE (1 of 2) [facility] Start: 09-12-1997 Zoster Vaccines (1 of 2) Zoster Vaccines (1 of 2) [facility] Start: 09-12-1992 COLOGUARD (FIT-DNA) COLOGUARD (FIT-DNA) [facility] Start: 09-12-1992 Colonoscopy COLONOSCOPY [facility] Start: 09-12-1992 COLORECTAL CANCER SCREENING COLORECTAL CANCER SCREENING [facility] Start: 09-12-[address] COLONOGRAPHY [facility] Start: 09-12-1992 FECAL OCCULT BLOOD FECAL OCCULT BLOOD [facility] Start: 09-12-1992 LIPID SCREEN LIPID SCREEN [facility] Start: 09-12-1992 SIGMOIDOSCOPY SIGMOIDOSCOPY [facility] Start: 1987 Mammography MAMMOGRAM [facility] Start: 09-12-1965 Diabetes mellitus screening Diabetes Screening [facility] Start: 09-12-1965 HEPATITIS C SCREENING HEPATITIS C SCREENING [facility] Start: 09-12-1965 Hepatitis C screening Hepatitis C Screening [facility] Start: 1947 Creatinine measurement Creatinine Level [facility] Start: 1947 Echocardiography Echocardiogram [facility] Start: 1947 Lipid panel Lipid Panel [facility] Start: 1947 Medicare Annual Wellness Visit Medicare Annual Wellness Visit (AWV) [facility] Start: 1947 Potassium measurement Potassium Level [facility] Start: 1947 Screening for malignant neoplasm of colon [facility] Start: 1947 Thyroid stimulating hormone measurement TSH Level [facility] End: 06-14-2023 WICHO SCREENING W BETINA WICHO SCREENING W BETINA Radiology Routine Malignant neoplasm of lower-inner quadrant of right breast of female, estrogen receptor positive (HCC) Breast screening Encounter for screening mammogram for malignant neoplasm of breast 1 Occurrences starting 05/15/2022 until 06/14/2023 [facility] Work Phone: Comment on above: 1 Occurrences starting 05/15/2022 until 06/14/2023 Patient Education Coronary Angio plasty (DC) Coronary Stenting (DC) Angina (DC) Chest Pain (DC) Drug Eluting Stents [facility] Work Phone: Patient referral [facility] Work Phone: [facility] Immunizations Immunization Date Immunization Notes Care Provider Fa [facility] 02-19-2023 influenza, injectabl e, quadrivalent, preservative free Wan Mast Other [facility] Other 01-18-2022 Pneumococcal conjuga te vaccine, 20-valent (PREVNAR 20) Nani Calloway MD Work Phone: [facility] Work Phone: 01-01-2022 Flu vaccine, quadrivalent, high-dose, preservative free, age 65y+ (FLUZONE) Nani Calloway MD Work Phone: [facility] Work Phone: 01-01-2022 Moderna COVID-19 vaccine, bivalent, blue cap/riojas label *Check age/dose* Nani Calloway MD Work Phone: [facility] 01-01-2022 influenza virus vaccine, unspecified formulation Nani Calloway MD Work Phone: [facility] Work Phone: 03-31-2021 COVID-19 original vaccine, full dose, monovalent (MODERNA) Ruth Ann Gutierres PA-C Work Phone: [facility] 12-15-2020 influenza, high dose seasonal, preservative-free Ruth Ann Gutierres PA-C Work Phone: [facility] 05-07-2020 COVID-19 vaccine (NICKY) Ruth Ann Gutierres PA-C Work Phone: [facility] 01-10-2020 influenza, high-dose , quadrivalent vaccine (FLUZONE HIGH DOSE QUADRIVALENT) Ruth Ann Gutierres PA-C Work Phone: [facility] 03-01-2019 influenza, high dose seasonal, preservative-free Ruth Ann Floyder PA-C Work Phone: [facility] 03-18-2018 influenza virus vaccine, unspecified formulation Ruth Ann Gutierres PA-C Work Phone: [facility] 03-17-2018 influenza, high dose seasonal, preservative-free Ruth Ann Floyder PA-C Work Phone: [facility] 03-12-2017 pneumococcal polysaccharide vaccine, 23 valent Ruth Ann Gutierres PA-C Work Phone: [facility] 02-13-2017 influenza, high dose seasonal, preservative-free Ruth Ann Floyder PA-C Work Phone: [facility] 10-24-2015 diphtheria, tetanus toxoids and acellular pertussis vaccine Ruth Ann Gutierres PA-C Work Phone: [facility] 10-24-2015 influenza, high dose seasonal, preservative-free Ruth Ann Floyder PA-C Work Phone: [facility] Payers Date Payer Category Payer Self-pay [id number] 2022 Unknown AARP AARP [id number] 2022-Present [address] [place] [address] [id number] 2013 Private Health Insurance [facility] AARP SUPPLEMENT [id number] 2013-Present [phone] [address] [place] [address] Indemnity [id number] 2012 Medicare [id number] 1959 Medicare [id number] 2.16.840.1.985488.19 1959 Unknown [id number] 2.16.840.1.054658.19 1947 Unknown [id number] 2.16.840.1.869725.3.579.2 .593 1945 Unknown [id number] 2.16.840.1.026985.3.579.2 .593 1947 Unknown [id number] 2.16.840.1.523535.3.579.2 .593 1947 Unknown [id number] 2.16.840.1.855460.3.579.2 .593 1947 Unknown [id number] 2.16.840.1.423555.3.579.2 .593 1947 Unknown [id number] 2.16.840.1.860520.3.579.2 .356 1947 Unknown [id number] 2.16.840.1.883555.3.579.2 .1259 1945 Unknown [id number] 2.16.840.1.048026.3.579.2 .1244 1945 Unknown [id number] 2.16.840.1.987402.3.579.2 .1244 1947 Unknown [id number] 2.16.840.1.705896.3.579.2 .1244 1945 Unknown [id number] 2.16.840.1.202105.3.579.2 .1244 Unknown [id number] 2.16.840.1.017511.3.579.2 .531 Unknown [id number] 2.16.840.1.609509.3.579.2 .531 Unknown [id number] 2.16.840.1.535511.3.579.2 .531 Unknown [id number] 2.16.840.1.756328.3.579.2 .531 Social History Date Type Detail Facility Unknown if ever smoked [facility] [employer] Other Start: 12-25-2022 End: 01-22-2023 Sex Assigned At [facility] [employer] Other Start: 06-29-2016 End: 12-25-2022 Tobacco smoking status NHIS Ex-smoker [facility] End: 06-30-1995 History of tobacco use Current smoker [facility] End: 06-30-1995 History of tobacco use Cigarette Smoker [facility] Start: 06-29-2016 End: 01-22-2023 Cigarettes smoked current (pack per day) - Reported 1 [facility] Start: 06-29-2016 End: 12-25-2022 Tobacco use and exposure Smokeless tobacco non-user [facility] Start: 05-16-2021 End: 05-15-2022 Alcohol intake Current non-drinker of alcohol (finding) [facility] Start: 1945 Sex Assigned At Not on file [facility] History of tobacco use Passive smoker [facility] Start: 1945 Sex Assigned At Female F [facility] Start: 12-25-2022 End: 04-02-2023 Alcohol intake Lifetime non-drinker (finding) [facility] Work Phone: Start: 12-15-2022 End: 04-02-2023 Exposure to SARS-CoV-2 (event) Not sure [facility] Medical Equipment Procedure Code Equipment Code Equipment Origin al Text Equipment Identifier Dates CL STENT ZEB FRONTIER 2.75 X 18 FDA Start: 01-17-2023 CL STENT ZEB FRONTIER 3.0 X 18 FDA Start: 01-17-2023 CL STENT ZEB FRONTIER 3.5 X 12 FDA Start: 01-17-2023 Femoral artery closure plug/patch, synthetic polymer )[id number] FDA Start: 01-17-2023 Functional Status Date Assessment Result Facility 01-18-2023 Functional status Patient at Baseline [facility] Work Phone: Mental Status Date Assessment Result Facility 01-18-2023 Cognitive function Cognitive Sta tus Patient at Baseline [facility] Work Phone: Clinical Notes 02-06-2021 to 04-02-2023 Nani Calloway MD - 04/02/2023 9:20 AM ESTPatient Instructions Note Date & Type Note Facility 04-02-2023 History of Present illness Narrative Subjective Katarina Camara is a 77 y.o. female Chief Complaint Follow-up; Post-Cath HPI Patient is in the office for follow-up after having two-vessel angioplasty in January 2023 involving LAD and the left circumflex with no complications. She feels great and she has a level of energy that she did not have prior. She had no complications with dual antiplatelet therapy. Pressure is elevated today. She has no orthopnea PND or lower extremity edema. She has significant joint problem in her knees for which she follows with orthopedic surgery. Apart from obesity physical examination was remarkable for hypertension. Medical therapy was reviewed with her. The cardiac cath findings and interventions again was reviewed with her as well. Assessment/recommendations: 1-severe two-vessel coronary artery disease status post PCI of the left circumflex in the anterior descending artery in January 2023. Symptoms have resolved and the patient will continue dual antiplatelet therapy for 1 year. Aggressive modification of risk factor for CAD was emphasized today. Patient has been very compliant. 2-hypertension, currently on ramipril and carvedilol currently not under control, will add indapamide 1.25 mg daily and follow blood pressure readings in few weeks. Low-salt diet, weight control and exercise was emphasized 3-hyperlipidemia on high intensity statin with rosuvastatin 20 mg daily. Will follow lipid profile 4-Hypothyroidism on replacement therapy managed by PCP 5-morbid obesity, lifestyle changes to lose weight would recommended. Review of Systems All other systems reviewed and are negative. Visit Vitals BP (!) 144/94 (BP Location: Left arm, Patient Position: Sitting) Pulse 84 Ht 1.524 m (5') Wt 99.8 kg (220 lb) BMI 42.97 kg/m Smoking Status Former BSA 2.06 m Objective Physical Exam Constitutional: Appearance: Normal appearance. [...] Judgment normal. Current Medications Current Outpatient Medications: alendronate (Fosamax) 70 mg/75 mL solution, Take 75 mL (70 mg) by mouth every 7 days. Take in the morning with a full glass of water, on an empty stomach, and do not take anything else by mouth or lie down for the next 30 min., Disp: , Rfl: amoxicillin (Amoxil) 500 mg capsule, Take 4 capsules (2,000 mg) by mouth if needed (before dental)., Disp: , Rfl: aspirin 81 mg EC tablet, Take 1 tablet (81 mg) by mouth once daily., Disp: , Rfl: benzonatate (Tessalon) 100 mg capsule, Take 1 capsule (100 mg) by mouth 3 times a day as needed for cough. Do not crush or chew., Disp: , Rfl: carvedilol (Coreg) 6.25 mg tablet, Take 1 tablet (6.25 mg) by mouth 2 times a day with meals., Disp: , Rfl: cetirizine-pseudoephedrine (ZyrTEC-D) 5-120 mg 12 hr tablet, Take 1 tablet by mouth 2 times a day., Disp: , Rfl: cholecalciferol, vitamin D3, (VITAMIN D3 ORAL), Take 500 Units by mouth once daily., Disp: , Rfl: DULoxetine (Cymbalta) [address] capsule, Take 1 capsule (60 mg) by mouth once daily. Do not crush or chew., Disp: , Rfl: folic acid (Folvite) 1 mg tablet, Take 1 tablet (1 mg) by mouth once daily., Disp: , Rfl: furosemide (Lasix) 40 mg tablet, Take 1 tablet (40 mg) by mouth once daily as needed (for swelling). take one tablet daily as needed for edema., Disp: 90 tablet, Rfl: 1 letrozole (Femara) 2.5 mg tablet, Take 1 tablet (2.5 mg total) by mouth once daily. Take with or without food., Disp: , Rfl: levothyroxine (Tirosint) 112 mcg capsule, Take by mouth once daily in the morning. Take before meals., Disp: , Rfl: montelukast (Singulair) 10 mg tablet, Take 1 tablet (10 mg) by mouth once daily at bedtime., Disp: , Rfl: nitroglycerin (Nitrostat) 0.4 mg SL tablet, Place 1 tablet (0.4 mg) under the tongue every 5 minutes if needed., Disp: , Rfl: omega-3 acid ethyl esters (Lovaza) 1 gram capsule, Take 1 capsule (1 g) by mouth once daily., Disp: , Rfl: ramipril (Altace) 10 mg capsule, Take 1 capsule (10 mg) by mouth once daily., Disp: , Rfl: rosuvastatin (Crestor) 20 mg tablet, Take 1 tablet (20 mg) by mouth once daily., Disp: , Rfl: ticagrelor (Brilinta) 90 mg tablet, Take 1 tablet (90 mg) by mouth 2 times a day., Disp: , Rfl: traMADol (Ultram) 50 mg tablet, Take 1 tablet (50 mg) by mouth every 6 hours if needed for severe pain (7 - 10)., Disp: , Rfl: indapamide (Lozol) 1.25 mg tablet, Take 1 tablet (1.25 mg) by mouth once daily in the morning., Disp: 90 tablet, Rfl: 3 Assessment/Plan 1. Stented coronary artery 2. 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 Follow Up In Cardiology Lipid Panel Alanine Aminotransferase Aspartate Aminotransferase Basic Metabolic Panel Lipid Panel Alanine Aminotransferase Aspartate Aminotransferase Basic Metabolic Panel 3. Essential hypertension, benign Follow Up In Cardiology indapamide (Lozol) 1.25 mg tablet Follow Up In Cardiology Basic Metabolic Panel Basic Metabolic Panel 4. Mixed hyperlipidemia Lipid Panel Alanine Aminotransferase Aspartate Aminotransferase Lipid Panel Alanine Aminotransferase Aspartate Aminotransferase 5. Abnormal stress test Follow Up In Cardiology 6. Morbid obesity (CMS/HCC) documented in this encounter [facility] Work Phone: 04-02-2023 Instructions Viktoria Terrazas LPN - 04/02/2023 9:20 AM EST Please bring all medicines, vitamins, and herbal supplements with you when you come to the office. Prescriptions will not be filled unless you are compliant with your follow up appointments or have a follow up appointment scheduled as per instruction of your physician. Refills should be requested at the time of your visit. Start Lozol 1.25 mg daily Lab work Follow up 6 months B/p check 2 weeks. documented in this encounter [facility] Work Phone: 02-19-2023 Evaluation note Encounter Date Diagnosis Assessment [...] is doing Feb, 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 (ICD-10 - I25.10) [...] she is doing, continue to avoid NSAIDs [employer] Other 11-22-2023 Evaluation + Plan note* Assessment & Plan Note - CHINYERE Michel - 01/23/2023 12:48 PM ESTAssociated Problem(s): BMI 40.0-44.9, adult ([facility]) Reviewed the merits of healthy lifestyle choices on overall cardiovascular health. [facility] Work Phone: 1(714) 842-823511-22-2023 Evaluation + Plan note* Assessment & Plan Note - CHINYERE Michel - 01/23/2023 12:48 PM ESTAssociated Problem(s): Coronary artery disease involving samish coronary artery of samish heart with out angina pectoris Jan 17, 2023 cardiac cath (no ACS admit, outpt symptoms) Mid/distal CX PCI/Zeb 2.75/18mm complicated with o/p CX dissection IVUS guided oCX PCI/Zeb 3.5/12mm mLAD PCI/Zeb 3/18mm [facility] Work Phone: 1(134) 270-817711-22-2023 Miscellaneous Notes* Assessment & Plan Note - CHINYERE Michel - 01/23/2023 12:48 PM ESTAssociated Problem(s): BMI 40.0-44.9, adult (CMS/[facility]) Reviewed the merits of healthy lifestyle choices on overall cardiovascular health. * Assessment & Plan Note - CHINYERE Michel - 01/23/2023 12:48 PM EST Associated Problem(s): 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 Jan 17, 2023 cardiac cath (no ACS admit, outpt symptoms) Mid/distal CX PCI/Hancock 2.75/18mm complicated with o/p CX dissection IVUS guided oCX PCI/Zeb 3.5/12mm mLAD PCI/Zeb 3/18mm * Assessment & Plan Note - [...] Hyperlipidemia High intensity statin [facility] Phone: 1(634) 743-330911-22-2023 Evaluation + Plan note* Assessment & Plan Note - CHINYERE Michel - 01/23/2023 12:45 PM ESTAssociated Problem(s): Angina pectoris (CMS/HCC) Resolved with recent coronary intervention [facility] Work Phone: 1(225) 998-460111-22-2023 Evaluation + Plan note* Assessment & Plan Note - CHINYERE Michel - 01/23/2023 12:45 PM ESTAssociated Problem(s): Essential hypertension, benign Optimal in office [facility] Work Phone: 1(112) 904-368711-22-2023 Evaluation + Plan note* Assessment & Plan Note - CHINYERE Michel - 01/23/2023 12:45 PM ESTAssociated Problem(s): Hyperlipidemia High intensity statin [facility] Work Phone: 1(855) 223-673211-21-2023 History of Present illness Narrative* CHINYERE Michel [...] recent coronary intervention 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 Jan 17, 2023 cardiac cath (no ACS admit, outpt symptoms) Mid/distal CX PCI/Hancock 2.75/18mm complicated with o/p CX dissection IVUS guided oCX PCI/Hancock 3.5/12mm mLAD PCI/Hancock 3/18mm BMI 40.0-44.9, adult (CMS/HCC) Reviewed the [...] Brilinta 3. Referral to Cardiac Rehab at [facility] 4. Return for follow-up; in the interim, contact the office if new symptoms arise. Dr. Calloway 6 months Jacqueline Campos MSN, [employer] INSPECTOR-CREDIT RISK MANAGER, PMHNP-[facility] Please excuse any errors in grammar or translation related to this dictation. Voice recognition software was utilized to prepare this document. [facility] Work Phone: 1(510) 601-338211-21-2023 Instructions* Patient Instructions* CHINYERE Michel - 01/22/2023 [...] Brilinta 3. Referral to Cardiac Rehab at [facility] 4. Return for follow-up; in the interim, contact the office if new symptoms arise. Dr. Calloway 6 months [facility] Work Phone: 1(391) 986-866011-16-2023 Consult note Author Tamiko Zhou [facility] January 17, 2023 5:50pm Note Date/Time January 17, 2023 5:51pm [facility] [address] [place] [address] Cardiology Consult Note Signed Patient: MeiKatarina henderson MR#: [id number] : 1945 Acct:[id number] Age/Sex: 77 / F Adm Date: 3 Loc: Room: 2C0632-4 Type: [facility] Attending Dr: Nani Calloway MD Copies to: Nani Calloway MD, [facility] MD Tamiko Torre DO~ Cardiology HPI History [...] stress testing from discussion with her primary financial assistant There is no prior history of myocardial [...] HPI Constitutional Constitutional: Reports as per HPI [facility] Medical History (Updated 01/17/23 @ 17:50 by [...] Code(s): I25.10 - Atherosclerotic heart disease of samish coronary artery without angina pectoris (2) Hyperlipidemia: Code(s): E78.5 - Hyperlipidemia, unspecified (3) Hypertension: Code(s): I10 - Essential (primary) hypertension (4) Angina pectoris: Code(s): I20.9 - Angina pectoris, unspecified Documented By: Taimko Zhou DO 01/17/231745 Signed By: <Electronically signed by Tamiko Zhou DO> 01/17/231749 [facility] Work Phone: 1(108) 287-955811-16-2023 [facility]10-24-2023 History of Present illness Narrative* Nani Calloway MD - 12/25/2022 9:50 AM EDT Subjective Katarina Camara is a 77 y.o. female Chief Complaint Establish Care Chest pain/abnormal nuclear stress test HPI 77-year-old white female with no previous cardiac history who has history of hypertension, hyperlipidemia with no diabetes but with remote history of tobacco abuse who was admitted to [facility] in October 2022 with an episode of [...] 5. Essential hypertension, benign [facility] Work Phone: [phone]) 887-275610-24-2023 Instructions* Patient Instructions* Deborah Lee LPN - [...] time of your visit. [facility] Work Phone: 1(961) 372-235110-09-2023 Evaluation note* Encounter Date Diagnosis Assessment Notes [...] has microscopic hematuria likely due to Nephrolithiasis [employer] Other 03-30-2023 Evaluation note* Encounter Date Diagnosis [...] understanding and is agreeable to treatment plan [employer] Other 03-14-2023 NoteHNO ID: [id number] Author: Ruth Ann Gutierres PA-C Service: ? Author Type: Physician Hopper Filler Type: Progress Notes Filed: 05/15/2022 4:24 PM [...] biopsy completed 02/2016 noted invasive ductal carcinoma ER/GA positive, HER2 negative. : Lumpectomy completed 03/21/16 noted grade 2 invasive ductal carcinoma, DCIS grade 2, 14 mm : Margins negative (discussed with the pathologist who assured negative margins but that the anterior margin was within 1.0mm anteriorly). : Coin lymph node was positive for involvement. 06/25/16 [...] Invasive ductal carcinoma of right breast (HCC) ER/GA+ HER2- PAST SURGICAL HISTORY Procedure Laterality Date [...] BMI 42.03 kg/m? General: (more content not included)...[facility]03-14-2023 Nurse Note* Audrey Novoa MA - 05/15/2022 3:07 PM EDT Patient states her upper right breast feels tubular and intermittent pain upper right breast could it be hormonal. She also states that night sweats do come intermittent. Audrey Novoa MA [facility] History of Present illness Narrative* Ruth Ann Gutierres PA-C - 05/15/2022 3:00 PM [...] biopsy completed 02/2016 noted invasive ductal carcinoma ER/GA positive, HER2 negative. : Lumpectomy completed 03/21/16 noted grade 2 invasive ductal carcinoma, DCIS grade 2, 14 mm : Margins negative (discussed with the pathologist who assured negative margins but that the anterior margin was within 1.0mm anteriorly). : Coin lymph node was positive for involvement. 06/25/16 [...] Invasive ductal carcinoma of right breast (HCC) ER/GA+ HER2- PAST SURGICAL HISTORY Procedure Laterality Date [...] ICD10: C50.311, Z17.0 Completed lumpectomy March 2016 [id number]. Reviewed different options for adjuvant chemotherapy andafter [...] Ruth Ann Gutierres PA-C [facility]12[facility] Evaluation note* Encounter Date Diagnosis Assessment [...] understanding and is agreeable with treatment plan [facility] Other 10-05-2022 Evaluation note* Encounter Date Diagnosis [...] has microscopic hematuria likely due to Nephrolithiasis [employer] Other [id number] Note [id number]12-08-2021 NoteEducation Materials POST OPERATIVE TOTAL HIP DISCHARGE [...] can be done to rule of a DVT.[facility] [id number] [facility] Clinical Discharge Summary PERSON INFORMATION Name KATARINA CAMARA Age 75 Years 1945 Sex FEMALE Language Albanian PCP NICOLE VARGAS MD Marital Status Med Service Observation Acct# Arrival 02/06/2021 08:56:00 Visit Reason SURGERY - RIGHT TOTAL HIP Acuity LOS 002 01:34 Address: [address] [place] [address] Comment: PROVIDER INFORMATION VITALS INFORMATION Vital Sign [...] range between ( 1.3 and 2.9 ) Andrews Abs#: 0.6 x103/mcL -- Normal range between ( 0.0 and 0.8 ) Auto Baso %: 0.5 % -- Normal range between ( 0.2 and 2.0 ) Auto Andrews %: 11 % -- Normal range between [...] INCOMPLETE INFORMATION PATIENT EDUCATION INFORMATION Instructions: [facility] PT instructions ([facility]ER[facility]) Follow up: With: Address: When: Bernadine Diaz [facility] [place] [address] Business (1) 12/17/2020 11:00 AM With: Address: When: NICOLE VARGAS [address] [place] [address] Business (1) DIAGNOSIS Chronic right hip pain; Other chronic pain; Primary localized osteoarthritis of right hip Comment: PHYS DOC [place] [address]-06-2021 Note [id number] HealthDischarge summary Author Tamiko Zhou [facility] January 18, 2023 12:54pm Note Date/Time January 18, 2023 12:50pm [facility] [address] [place] [address] Discharge Summary Signed Patient: Katarina Camara MR#: [id number] : 1945 Acct:[id number] Age/Sex: 77 / F Adm Date: 3 Loc: CL Room: Attending Dr: Nani Calloway MD Copies to: Nani Calloway MD, [facility] MD Tamiko Torre, DO~ Providers Date of [...] distal circumflex with 2.75 x 18 mm Zeb; ostial/proximal circumflex with 3.5 x 12 mm Zeb, and mid LAD with 3 x 18 mm Hancock. She developed mild right infra inguinal hematoma postoperatively, stayed overnight. CT imaging did not reveal any suprainguinal or retroperitoneal pathology, hemoglobin was stable She has been up and ambulating in the room with moderate infrainguinal ecchymosis but otherwise soft groin. She will be discharged today on current therapies to follow-up with her primary financial assistant Condition Condition at Discharge: Stable Status at [...] Device Placement 0 - W Hector Zhou, DO Complications Complications: Small right groin hematoma Diagnostic [...] doctor or pharmacist, without first calling the financial assistant who implanted the stent. If you require [...] weight lifting, stair steppers, etc. until the financial assistant approves these activities. Check with the financial assistant on your first follow-up visit. CALL YOUR PHYSICIAN at [phone]: -If bleeding should occur from the catheter insertion site- apply pressure to the site then immediately call us. -Report any fever, redness, drainage, increased swelling, or firmness at the catheter insertion site. Some bruising or slight swelling may be present at thetime of discharge. -Should arm or leg become cold, numb, white, or blue, contact the financial assistant immediately. -IF you should experience episodes of [...] is recommended. Please call Central Scheduling at [phone] to schedule your appointment.] The attending financial assistant or [facility] nurse clinician should provide you with specific instructions regarding activity, diet, medications, and further follow up for you. Follow the medication instructions provided on your discharge. If the dosages and instructions on this sheet differ from the dosage and instructions on the bottle, follow the instructions on the bottle. [facility] is not responsible for incorrect prescription information [...] Tablet 125 mcg PO QNOON Discontinued aspirin [Елена Aspirin] 325 mg Tablet 325 mg PO QAM Follow Up: [facility] [Outside] - 01/22/23 10:30 am Documented By: Tamiko Zhou DO 01/18/23 1249 Signed By: <Electronically signed by Tamiko Zhou DO> 01/18/23 1254 [facility] Work Phone: Evaluation note* Diagnosis Malignant neoplasm of lower-inner quadrant of right breast of female, estrogen receptor positive (HCC)- Primary Breast screening Breast screening, unspecified Encounter for screening mammogram for malignant neoplasm of breast Other screening mammogram Osteopenia, unspecified location [facility] information available[facility] Work Phone: Evaluation note* Diagnosis Abnormal stress test Other nonspecific abnormal cardiovascular system function study Angina pectoris (CMS/HCC) Other and unspecified angina pectoris Abnormal EKG Nonspecific abnormal electrocardiogram (ECG) (EKG) Hyperlipidemia, unspecified hyperlipidemia type Essential hypertension, benign documented in this encounter [facility] Work Phone: Evaluation note* Diagnosis 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- Primary S/P angioplasty with stent Postsurgical percutaneous transluminal coronary angioplasty status Angina pectoris ([facility]/HCC) Other and unspecified angina pectoris Essential hypertension, benign Mixed hyperlipidemia BMI 40.0-44.9, adult (CMS/HCC) documented in this encounter [facility] Work Phone: Evaluation noteNo InformationLapel [employer] Other Evaluation note* Diagnosis Onset Date Resolution Status Angina pectoris acute ASHD (arteriosclerotic heart disease) acute Hyperlipidemia acute Hypertension acute S/P cardiac catheterization [facility] Work Phone: Evaluation note* Diagnosis Stented coronary artery- Primary Postsurgical percutaneous transluminal coronary angioplasty status 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 Essential hypertension, benign Mixed hyperlipidemia Abnormal stress test Other nonspecific abnormal cardiovascular system function study Morbid obesity ([facility]) Morbid obesity documented in this encounter [facility] Work Phone: Hisdiya general Narrative - Reported* Type Description Date [...] History SEE ABOVE Hospitalization History CHILD BIRTHS [facility] Other Hisgxrn general Narrative - Reported* Type Description Date [...] History SEE ABOVE Hospitalization History CHILD BIRTHS [facility] Other History general Narrative - Reported* Type Description Date [...] PCI Small right groin hematoma, Obesity 01/17/23-01/18/23 [facility] Other Hospital Discharge instructions Additional Instructions DISCHARGE [...] doctor or pharmacist, without first calling the financial assistant who implanted the stent. If you require [...] weight lifting, stair steppers, etc. until the financial assistant approves these activities. Check with the financial assistant on your first follow-up visit. CALL YOUR PHYSICIAN at [phone]: -If bleeding should occur from the catheter insertion site- apply pressure to the site then immediately call us. -Report any fever, redness, drainage, increased swelling, or firmness at the catheter insertion site. Some bruising or slight swelling may be present at the time of discharge. -Should arm or leg become cold, numb, white, or blue, contact the financial assistant immediately. -IF you should experience episodes of [...] is recommended. Please call Central Scheduling at [phone] to schedule your appointment.] The attending financial assistant or [facility] nurse clinician should provide you with specific instructions regarding activity, diet, medications, and further follow up for you. Follow the medication instructions provided on your discharge. If the dosages and instructions on this sheet differ from the dosage and instructions on the bottle, follow the instructions on the bottle. [facility] is not responsible for incorrect prescription information provided by the patient during their visit. Do not stop your medications without consulting your health care provider. Please take the list with you to your next doctor's appointment.[facility] Work Phone: Progress note Author Tamiko Zhou [facility] January 18, 2023 12:55pm Note Date/Time January 18, 2023 12:26pm [facility] [address] [place] [address] Cardiology Progress Note Signed Patient: Katarina Camara MR#: [id number] : 1945 Acct:[id number] Age/Sex: 77 / F Adm Date: 3 Loc: Room: Type: [facility] Attending Dr: Nani Calloway MD Copies to: [...] stress testing from discussion with her primary financial assistant There is no prior history of myocardial [...] PCI of mid/distal circumflex and ostial circumflex Hancock stents with IVUS guidance, and mid LAD [...] Code(s): I25.10 - Atherosclerotic heart disease of samish coronary artery without angina pectoris Status: Acute (3) Hyperlipidemia: Code(s): E78.5 - Hyperlipidemia, unspecified Status: Acute (4) Hypertension: Code(s): I10 - Essential (primary) hypertension Status: Acute (5) Angina pectoris: Code(s): I20.9 - Angina pectoris, unspecified Status: Acute Documented By: Florencio De La Fuente DO, RES 01/18/23 12 10 Signed By: <Electronically signed by DO FRANCISCO J De La Fuente> 01/18/23 1226 <Electronically signed by Tamiko Zhou DO> 01/18/23 1255 [facility] Work Phone: Reason for referral (narrative)* [...] BREAST INC CAD Ruth Ann Gutierres PA-C [address] [place] [address] [place] [address] [facility] Imaging [address] [place] [address] Referral ID Status Reason Start Date Expiration Date Visits Requested Visits Authorized [id number] Pending Review Auto-Generat ed Referral 05/15/2022 06/14/2023 1 1 [facility] for referral (narrative)* Consultation (Routine) - Authorized Specialty Diagnoses / Procedures Referred By Contac t Referred To Contact Cardiology Diagnoses Abnormal stress test Angina pectoris (CMS/HCC) Procedures Follow Up In Cardiology Nani Calloway MD [address] [facility] 2, [address] [address] Nani Calloway MD [address] [facility] [address], [address] [place] [address] Referral ID Status Reason Start Date Expiration Date V isits Requested Visits Authorized [id number] Authorized 12/25/2022 12/25/2023 1 1 * Cardiovascular (Routine) - Pending Review Specialty Diagnoses / Procedures Referred By Contac t Referred To Contact Diagnoses Abnormal stress test Angina pectoris (CMS/HCC) Procedures ECG 12 Lead Nani Calloway MD [address] [place] [address] Referral ID Status Reason Start Date Expiration Date V isits Requested Visits Authorized [id number] Pending Review 12/25/2022 12/25/2023 1 1 [facility] Work Phone: Reason for referral (narrative)* Consultation (Routine) - Authorized Specialty Diagnoses / Procedures Referred By Contac t Referred To Contact Cardiology Diagnoses 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 Procedures Follow Up In Cardiology Jacqueline Campos APRN-CREDIT RISK MANAGER [address] [place] [address] Nani Calloway MD [address] [place] [address] Referral ID Status Reason Start Date Expiration Date V isits Requested Visits Authorized [id number] Authorized 01/22/2023 01/22/2024 1 1 * Consultation (Routine) - Authorized Specialty Diagnoses / Procedures Referred By Contac t Referred To Contact Cardiac Rehabilitation Diagnoses S/P angioplasty with stent 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 Jacqueline Campos APRN-CREDIT RISK MANAGER [address] [place] [address] Referral ID Status Reason Start Date Expiration Date Visits Requested Visits Authorized [id number] Authorized Specialty Services Required 01/22/2024 1 1 [facility] Work Phone: Reason for referral (narrative)* Consultation (Routine) - Authorized Specialty Diagnoses / Procedures Referred By Andrés pereyra Referred To Contact Cardiology Diagnoses Essential hypertension, benign Procedures Follow Up In Cardiology Nani Calloway MD [address] [place] [address] 2, [address] [address] Nani Calloway MD [address] [place] [address] [address], [address] [place] [id number] Referral ID Status Reason Start Date Expiration Date V isits Requested Visits Authorized [id number] Authorized 04/02/2023 04/01/2024 1 1 * Consultation (Routine) - Authorized Specialty Diagnoses / Procedures Referred By Andrés pereyra Referred To Contact Cardiology Diagnoses 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 Essential hypertension, benign Procedures Follow Up In Cardiology Nani Calloway MD [address] [place] [address] 2, [address] [address] Referral ID Status Reason Start Date Expiration Date V isits Requested Visits Authorized [id number] Authorized 04/02/2023 04/01/2024 1 1 [facility] Work Phone: Summary Purpose Family History No [...] section and content) DATE CREATED AUTHOR 02/15/2021 [facility] DATE CREATED AUTHOR AUTHOR'S ORGANIZ ATION 05/17/2022 [facility] DATE CREATED AUTHOR AUTHOR'S ORGANIZ ATION 06/16/2022 [facility] DATE CREATED AUTHOR AUTHOR'S ORGANIZ ATION 06/28/2022 [facility] ical Center DATE CREATED AUTHOR AUTHOR'S ORGANIZ ATION 11/02/2022 [facility] DATE CREATED AUTHOR AUTHOR'S ORGANIZ ATION 02/28/2023 [facility] DATE CREATED AUTHOR AUTHOR'S ORGANIZ ATION 03/06/2023 [facility] EPIC DATE CREATED AUTHOR AUTHOR'S ORGANIZ ATION 04/05/2023 [facility] Ambulatory REASON FOR VISIT (unrecogniz ed section and content) Reason Comments Refill Request Reason Comments Breast Cancer 1 year follow up Reason Comments Establish Care Abnormal stress & SO B Specialty Diagnoses / Procedures Referred By Contac t Referred To Contact Diagnoses Abnormal stress test Angina pectoris ([facility]) Procedures ECG 12 Lead Nani Calloway MD [address] [facility] 2, [address] [address] Referral ID Status Reason Start Date Expiration Date V isits Requested Visits Authorized [id number] Pending Review 12/25/2022 12/25/2023 1 1 Reason Comments Follow-up [facility], d/c Specialty Diagnoses / Procedures Referred By Contac t Referred To Contact Cardiology Diagnoses S/P angioplasty with stent Procedures Follow Up In Cardiology Niraj Zhou DO [address] [facility] 2, [address] [address] Nani Calloway MD [address] [facility] 2, [address] [address] Referral ID Status Reason Start Date Expiration Date V isits Requested Visits Authorized [id number] Authorized 01/18/2023 01/18/2024 1 1 Reason Comments Follow-up 3 month Post-Cath Specialty Diagnoses / Procedures Referred By Contac t Referred To Contact Cardiology Diagnoses Abnormal stress test Angina pectoris ([facility]) Procedures Follow Up In Cardiology Nani Calloway MD [address] [facility] 2, [address] [place] [address] Nani Calloway MD [address] [place] [address] Referral ID Status Reason Start Date Expiration Date V isits Requested Visits Authorized [id number] Authorized 12/25/2022 12/25/2023 1 1 Source Comments (unrecognize d section and content) In the event this informatio n is protected by the Federal Confidentiality of Alcohol and Drug Abuse Patient Records regulations: The Federal rules restrict any use of the information to criminally investigate or prosecute any alcohol or drug abuse patient.[facility] the event this information is protected by the Federal Confidentiality of Alcohol and Drug Abuse Patient Records regulations: The Federal rules restrict any use of the information to criminally investigate or prosecute any alcohol or drug abuse patient.[facility] Care Teams (unrecognized sec tion and content) Dry Cans Operator Relationship Specialty Start Date End Date Nicole Vargas [address] [facility] [address] [place] [address] PCP - General Family Medicine 07/15/18 Dry Cans Operator Relationship Specialty Start Date End Date SamNicole [address] [facility] [address] [place] [address] PCP - General Family Medicine 07/15/18 Team Status: Active Member Role Status Dates Nicole Vargas MD Primary Care Provider Active Team Status: Inactive Member Role Status Dates Nicole Vargas MD Primary Care Provider Active Shellie Jennings , ACTING PROFESSOR-C Attending Provider Active Tamiko Zhou DO Referring Provider Active Dry Cans Operator Relationship Specialty Start Date End Date Nicole Vargas MD [address] [facility] [address] [place] [address] PCP - General Family Medicine 12/25/22 Dry Cans Operator Relationship Specialty Start Date End Date Nicole Vargas MD [address] [facility] [address] [place] [address] PCP - General Family Medicine 12/25/22 Mary Dasilva RN Care Elementary Instructional Coach 01/18/23 Team Status: Inactive Member Role Status Dates Nicole Vargas MD Primary Care Provider Active Nani Calloway MD Attending Provider Active Dry Cans Operator Relationship Specialty Start Date End Date Nicole Vargas MD [address] [facility] [address] [place] [address] PCP - General Family Medicine 02/05/23 Mary Dasilva RN Care Elementary Instructional Coach 01/18/23 Goals (unrecognized section and content) Goals may [...] BE BASED ON THE PRIMARY CLINICAL RECORDS. [employer] [facility]. provides no warranty or guarantee of the accuracy or completeness of information in this document.
== END 2023-04-11 13:47 | disposition home or self-care (01) ==
LOC: MAMMO 13:46
PROVIDERS: PCP Family Medicine
DX: Z12.31 Encounter for screening mammogram for malignant neoplasm of breast (principal)
CPT/HCPCS: 77063; 77067

== ENCOUNTER 2023-08-13 07:06 | Outpatient (RCR) | payer MEDICARE, SELFPAY ==
--- NOTE | 2023-03-20 13:42 | CR1_ITS ---
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
--- NOTE | 2023-04-17 11:02 | CR1_ITS ---
The [facility] Test Date: 2023-04-17 Pat Name: GURJIT CAMARA Department: Room: - Gender: Female Suction Drum Drier Operator: : 1945 Requested By: CYRIL PARKS Order Number: [id number] Mae MD: CYRLI PARKS Interpretive Statements Session Date: Electronically Signed On 04-22-2023 23:30:48 EST by CYRIL PARKS
--- NOTE | 2023-05-15 11:01 | CR1_ITS ---
The [facility] Test Date: 2023-05-15 Pat Name: GURJIT CAMARA Department: Room: - Gender: Female Reproduction Production Manager: : 1945 Requested By: CYRIL PARKS Order Number: [id number] Reading MD: CYRIL PARKS Interpretive Statements Session Date: Electronically Signed On 05-15-2023 23:18:56 EDT by CYRIL PARKS
--- NOTE | 2023-06-11 12:20 | CR1_ITS ---
The [facility] Test Date: 2023-06-11 Pat Name: GURJIT CAMARA Department: Room: - Gender: Female Post Closing Specialist: : 1945 Requested By: CYRIL PARKS Order Number: [id number] Reading MD: CYRIL PARKS Interpretive Statements Session Date: Electronically Signed On 06-11-2023 23:20:40 EDT by CYRIL PARKS
--- NOTE | 2023-07-08 14:50 | PC.NURSE ---
Called to outreach patient as she has not been seen in cardiac rehab in the better part of a month. Patient states she hasn't been feeling well the last few weeks, but does plan to come back this week. Patient does not want to be discharged from the program at this time.
--- NOTE | 2023-07-11 08:42 | CR1_ITS ---
The [facility] Test Date: 2023-07-11 Pat Name: GURJIT CAMARA Department: Room: - Gender: Female Stitcher Standard Machine: : 1945 Requested By: CYRIL PARKS Order Number: [id number] Reading MD: CYRIL PARKS Interpretive Statements Session Date: Electronically Signed On 07-13-2023 8:25:38 EDT by CYRIL PARKS
--- NOTE | 2023-08-12 13:19 | CR1_ITS ---
The [facility] Test Date: 2023-08-12 Pat Name: GURJIT CAMARA Department: Room: - Gender: Female Certified Medical Aide: : 1945 Requested By: CYRIL PARKS Order Number: [id number] Reading MD: CYRIL PARKS Interpretive Statements Session Date: Electronically Signed On 08-12-2023 22:54:37 EDT by CYRIL PARKS
--- NOTE | 2023-09-03 07:03 | PC.NURSE ---
Outreach letter due to lack of attendance and copy of attendance policy mailed to patient on this date. Patient has been outreached by phone prior to this letter to help facilitate their attendance in cardiac rehab.
--- NOTE | 2023-09-11 15:08 | CR1_ITS ---
The [facility] Test Date: 2023-09-11 Pat Name: GURJIT CAMARA Department: Room: - Gender: Female Crime Prevention Police Officer: : 1945 Requested By: CYRIL PARKS Order Number: [id number] Reading MD: CYRIL PARKS Interpretive Statements Session Date: Electronically Signed On 09-11-2023 18:38:54 EDT by CYRIL PARKS
== END 2023-09-11 15:05 | disposition home or self-care (01) ==
LOC: CR 07:06
PROVIDERS: PCP Family Medicine; Visit Provider Internal Medicine
DX: Z98.61 Coronary angioplasty status (principal)
CPT/HCPCS: 93798

== ENCOUNTER 2024-03-03 08:11 | Emergency (ER) | payer MEDICARE, SELFPAY ==
[2024-03-03] VITALS (25 sets, daily range): BP systolic 110–138; BP diastolic 59–97; PULSE 90–104; TEMP 36.9; O2SAT 88–97; BMI 40.6
--- NOTE | 2024-03-03 08:07 | XR_ITS ---
The [address] [address] Patient Name: GURJIT CAMARA MRN: [id number] date: 1945 Sex: F Assigned Patient Location: ER Current Patient Location: ER Accession/Order Number: [id number] Exam Date: 03/03/2024 08:45 Report Date: 03/03/2024 09:12 At the request of: FADUMO WEBSTER Procedure: XR knee RT 3V PROCEDURE: XR knee RT 3V COMPARISON: None. HISTORY: fall FINDINGS: BONES:No acute fracture or dislocation. Moderate tricompartmental osteoarthropathy with joint space narrowing and marginal osteophyte formation SOFT TISSUES:Negative. No visible soft tissue swelling. EFFUSION:None visible. OTHER: Negative. XR/XR knee RT 3V IMPRESSION: Moderate osteoarthritis Electronically authenticated by: JASON RAMON Date: 03/03/2024 09:12
--- NOTE | 2024-03-03 08:07 | XR_ITS ---
The [address] [address] Patient Name: GURJIT CAMARA MRN: [id number] date: 1945 Sex: F Assigned Patient Location: ER Current Patient Location: ER Accession/Order Number: [id number] Exam Date: 03/03/2024 08:45 Report Date: 03/03/2024 09:11 At the request of: FADUMO WEBSTER Procedure: XR wrist RT min 3V PROCEDURE: XR wrist RT min 3V COMPARISON: None. HISTORY: fall FINDINGS: BONES:No acute fracture or dislocation. Degenerative changes with joint space narrowing and marginal osteophyte formation SOFT TISSUES:Extensive soft tissue swelling EFFUSION:None visible. OTHER: Negative. XR/XR wrist RT min 3V IMPRESSION: Soft tissue swelling, no acute fracture Electronically authenticated by: JASON RAMON Date: 03/03/2024 09:11
--- NOTE | 2024-03-03 08:07 | CT_ITS ---
The [address] [address] Patient Name: GURJIT CAMARA MRN: [facility]:[id number] date: 1945 Sex: F Assigned Patient Location: ER Current Patient Location: Accession/Order Number: [id number] Exam Date: 03/03/2024 08:30 Report Date: 03/03/2024 09:18 At the request of: SEAN WEBSTER Procedure: CT facial bones wo con EXAM: CT head/brain wo con, CT facial bones wo con, CT cervical spine wo con HISTORY: fall COMPARISON: Cervical spine radiographs 07/11/2018, CT head 05/05/2017, MR brain 05/07/2017. TECHNIQUE: Axial noncontrast CT imaging of the head, facial bones and cervical spine was performed without intravenous contrast. Coronal and sagittal reformats were performed. This CT exam was performed using one or more of the following dose reduction techniques: Automated exposure control, adjustment of the MA and/or kV according to patient size, or use of iterative reconstruction technique. FINDINGS: CT head and facial bones Soft tissues: Unremarkable. Orbits: Globes intact. Bilateral [place] ocular lens replacements. No fractures or masses. Sinuses: Air-fluid levels involving the right greater than left maxillary sinus with diffuse mild to moderate mucosal thickening involving maxillary and ethmoid sinuses and to a lesser extent inferior frontal sinuses. Frothy material is present within the posterior right nasal passage possibly relating to blood products. Midface/nasal cavity: Acute minimally medially displaced fracture involving the anterior right nasal bone. Mandible: There is fracture involving the anterior nasal septum with mild rightward angulation along the posterior margin of the fracture with associated presumed small nasal septal hematoma. Calvarium/skull base: No evidence of acute fracture or destructive lesion. Brain: Small volume subarachnoid hemorrhage suspected along the interhemispheric fissure anteriorly. No acute large vascular territory infarct. No mass lesion or mass effect. No hydrocephalus. CT cervical spine Alignment: Reversal of normal cervical lordosis without substantial subluxation. Vertebrae: Vertebral body heights are maintained. No fracture. Craniocervical junction: No focal abnormality. Degenerative changes: Moderate degenerative change of the cervical spine with multilevel moderate disc height loss, prominent anterior and posterior osteophytic spurring and multilevel advanced uncovertebral and moderate facet arthropathy. There is multilevel bixp-ac-ipylvrwn canal stenosis. Multilevel nway-nc-mtqwqkib foraminal stenosis greater involving the lower cervical spine with moderate to advanced foraminal stenosis bilaterally at C5-C6. Additional Comments: Vascular sclerosis. CT/CT facial bones wo con IMPRESSION: 1. Small volume subarachnoid hemorrhage along the interhemispheric fissure anteriorly. 2. Mildly displaced rightward angulated fracture involving the anterior nasal septum. Minimally displaced fracture involving the anterior right nasal bone. Associated blood products within the posterior right nasal passage and presumed small nasal septum hematoma. 3. No acute fracture or traumatic malalignment of the cervical spine. Notification of Results Provider/Agent notified: Dr. Sean Webster Time/Date notified: 03/03/2024 7:17 AM MST Notifying Staff: Dr. Guzman Electronically authenticated by: DHARA GUZMAN Date: 03/03/2024 09:18
--- NOTE | 2024-03-03 08:08 | CT_ITS ---
The [address] [address] Patient Name: GURJIT CAMARA MRN: [facility]:[id number] date: 1945 Sex: F Assigned Patient Location: ER Current Patient Location: Accession/Order Number: [id number] Exam Date: 03/03/2024 08:30 Report Date: 03/03/2024 09:18 At the request of: SEAN WEBSTER Procedure: CT head/brain wo con EXAM: CT head/brain wo con, CT facial bones wo con, CT cervical spine wo con HISTORY: fall COMPARISON: Cervical spine radiographs 07/11/2018, CT head 05/05/2017, MR brain 05/07/2017. TECHNIQUE: Axial noncontrast CT imaging of the head, facial bones and cervical spine was performed without intravenous contrast. Coronal and sagittal reformats were performed. This CT exam was performed using one or more of the following dose reduction techniques: Automated exposure control, adjustment of the MA and/or kV according to patient size, or use of iterative reconstruction technique. FINDINGS: CT head and facial bones Soft tissues: Unremarkable. Orbits: Globes intact. Bilateral [place] ocular lens replacements. No fractures or masses. Sinuses: Air-fluid levels involving the right greater than left maxillary sinus with diffuse mild to moderate mucosal thickening involving maxillary and ethmoid sinuses and to a lesser extent inferior frontal sinuses. Frothy material is present within the posterior right nasal passage possibly relating to blood products. Midface/nasal cavity: Acute minimally medially displaced fracture involving the anterior right nasal bone. Mandible: There is fracture involving the anterior nasal septum with mild rightward angulation along the posterior margin of the fracture with associated presumed small nasal septal hematoma. Calvarium/skull base: No evidence of acute fracture or destructive lesion. Brain: Small volume subarachnoid hemorrhage suspected along the interhemispheric fissure anteriorly. No acute large vascular territory infarct. No mass lesion or mass effect. No hydrocephalus. CT cervical spine Alignment: Reversal of normal cervical lordosis without substantial subluxation. Vertebrae: Vertebral body heights are maintained. No fracture. Craniocervical junction: No focal abnormality. Degenerative changes: Moderate degenerative change of the cervical spine with multilevel moderate disc height loss, prominent anterior and posterior osteophytic spurring and multilevel advanced uncovertebral and moderate facet arthropathy. There is multilevel ykny-ol-fumvnmxn canal stenosis. Multilevel ofpy-hv-gutwdihl foraminal stenosis greater involving the lower cervical spine with moderate to advanced foraminal stenosis bilaterally at C5-C6. Additional Comments: Vascular sclerosis. CT/CT head/brain wo con IMPRESSION: 1. Small volume subarachnoid hemorrhage along the interhemispheric fissure anteriorly. 2. Mildly displaced rightward angulated fracture involving the anterior nasal septum. Minimally displaced fracture involving the anterior right nasal bone. Associated blood products within the posterior right nasal passage and presumed small nasal septum hematoma. 3. No acute fracture or traumatic malalignment of the cervical spine. Notification of Results Provider/Agent notified: Dr. Sean Webster Time/Date notified: 03/03/2024 7:17 AM MST Notifying Staff: Dr. Guzman Electronically authenticated by: DHARA GUZMAN Date: 03/03/2024 09:18
--- NOTE | 2024-03-03 08:08 | CT_ITS ---
The [address] [address] Patient Name: GURJIT CAMARA MRN: [facility]:[id number] date: 1945 Sex: F Assigned Patient Location: ER Current Patient Location: Accession/Order Number: [id number] Exam Date: 03/03/2024 08:30 Report Date: 03/03/2024 09:18 At the request of: SEAN WEBSTER Procedure: CT cervical spine wo con EXAM: CT head/brain wo con, CT facial bones wo con, CT cervical spine wo con HISTORY: fall COMPARISON: Cervical spine radiographs 07/11/2018, CT head 05/05/2017, MR brain 05/07/2017. TECHNIQUE: Axial noncontrast CT imaging of the head, facial bones and cervical spine was performed without intravenous contrast. Coronal and sagittal reformats were performed. This CT exam was performed using one or more of the following dose reduction techniques: Automated exposure control, adjustment of the MA and/or kV according to patient size, or use of iterative reconstruction technique. FINDINGS: CT head and facial bones Soft tissues: Unremarkable. Orbits: Globes intact. Bilateral knik ocular lens replacements. No fractures or masses. Sinuses: Air-fluid levels involving the right greater than left maxillary sinus with diffuse mild to moderate mucosal thickening involving maxillary and ethmoid sinuses and to a lesser extent inferior frontal sinuses. Frothy material is present within the posterior right nasal passage possibly relating to blood products. Midface/nasal cavity: Acute minimally medially displaced fracture involving the anterior right nasal bone. Mandible: There is fracture involving the anterior nasal septum with mild rightward angulation along the posterior margin of the fracture with associated presumed small nasal septal hematoma. Calvarium/skull base: No evidence of acute fracture or destructive lesion. Brain: Small volume subarachnoid hemorrhage suspected along the interhemispheric fissure anteriorly. No acute large vascular territory infarct. No mass lesion or mass effect. No hydrocephalus. CT cervical spine Alignment: Reversal of normal cervical lordosis without substantial subluxation. Vertebrae: Vertebral body heights are maintained. No fracture. Craniocervical junction: No focal abnormality. Degenerative changes: Moderate degenerative change of the cervical spine with multilevel moderate disc height loss, prominent anterior and posterior osteophytic spurring and multilevel advanced uncovertebral and moderate facet arthropathy. There is multilevel [id number] canal stenosis. Multilevel mkkx-os-yrbsmbti foraminal stenosis greater involving the lower cervical spine with moderate to advanced foraminal stenosis bilaterally at C5-C6. Additional Comments: Vascular sclerosis. CT/CT cervical spine wo con IMPRESSION: 1. Small volume subarachnoid hemorrhage along the interhemispheric fissure anteriorly. 2. Mildly displaced rightward angulated fracture involving the anterior nasal septum. Minimally displaced fracture involving the anterior right nasal bone. Associated blood products within the posterior right nasal passage and presumed small nasal septum hematoma. 3. No acute fracture or traumatic malalignment of the cervical spine. Notification of Results Provider/Agent notified: Dr. Sean Webster Time/Date notified: 03/03/2024 7:17 AM MST Notifying Staff: Dr. Guzman Electronically authenticated by: DHARA GUZMAN Date: 03/03/2024 09:18
--- NOTE | 2024-03-03 08:08 | ECG_ITS ---
The [facility] Test Date: 2024-03-03 Pat Name: GURJIT CAMARA Department: Room: - Gender: Female [employer]: : 1945 Requested By: NICOLE VARGAS Order Number: [id number] Reading MD: CYRIL PARKS Measurements Intervals [place] Rate: 96 P: 64 AK: 148 QRS: -43 QRSD: 88 T: 150 QT: 288 QTc: 342 Interpretive Statements 1100 Sinus rhythm 2420 RSR (QR) in lead V1/V2, consistent with right ventricular conduction delay [address] & Twave abnormality, can't exclude lateral ischemia 7200 Abnormal left axis deviation Low voltage across the precordium 8305 Short QTc interval 9150 abnormal ECG Electronically Signed On 03-05-2024 16:29:45 EST by CYRIL PARKS
--- NOTE | 2024-03-03 08:09 | ED_ITS ---
HPI HPI - General Adult General Chief complaint: Fall Stated complaint: fall Time Seen by Provider: 03/03/24 08:12 History of Present Illness HPI narrative: 78-year-old female presents to the emergency department for injuries sustained in a fall. She was in her kitchen and she leaned forward and she lost her balance and she fell hitting her face. She was then able to get herself up for about an hour and ultimately did so. She called her granddaughter and rodney trevizo brought the patient in. She lives by herself. She is complaining of pain to the right wrist and right knee and her face. She takes aspirin but no other blood thinners. Related Data Home Medications ?Medication ?Instructions ?Recorded ?Confirmed acetaminophen 500 mg capsule 500 mg PO Q6H PRN fever or pain 03/03/24 03/03/24 alendronate 70 mg tablet 70 mg PO DAILY 03/03/24 03/03/24 carvedilol 6.25 mg tablet 6.25 mg PO Q12H 03/03/24 03/03/24 duloxetine 60 mg capsule,delayed 60 mg PO DAILY 03/03/24 03/03/24 release folic acid 1 mg tablet 1 mg PO DAILY 03/03/24 03/03/24 indapamide 1.25 mg tablet 1.25 mg PO DAILY 03/03/24 03/03/24 letrozole 2.5 mg tablet 2.5 mg PO Q24H 03/03/24 03/03/24 levothyroxine 112 mcg tablet 112 mcg PO DAILY 03/03/24 03/03/24 montelukast 10 mg tablet 10 mg PO DAILY 03/03/24 03/03/24 potassium chloride 20 mEq 20 meq PO DAILY 03/03/24 03/03/24 tablet,extended release rosuvastatin 20 mg tablet 20 mg PO DAILY 03/03/24 03/03/24 ticagrelor 90 mg tablet (Brilinta) 90 mg PO Q12H 03/03/24 03/03/24 Allergies Allergy/AdvReac Type Severity Reaction Status Date / Time pregabalin (From Lyrica) Allergy Severe Confusion Verified 03/03/24 08:11 Opioid HPI Opioid Management Most Recent Opioid Data: No Data to Display Review of Systems ROS Narrative A ten point review of systems is negative except as noted above. PFSH PFSH Social History Little interest or pleasure in doing things: not at all Feeling down, depressed, or hopeless: not at all Exam Narrative Exam Narrative: Nurses note and vital signs reviewed and patient is not hypoxic. General: The patient appears well and in no apparent distress. Patient is resting comfortably on cart. Skin: Warm, dry, no pallor noted. There is no rash noted. Head: Normocephalic, bruising and swelling and dried blood present on the nose. Eye: Normal conjunctiva, no drainage Ears, Nose, Mouth, and Throat: oral mucosa is moist. Nares patent. Cardiovascular: Regular Rate and Rhythm Respiratory: Patient is in no distress, no accessory muscle use, lungs are clear to auscultation, no wheezing, rales or rhonchi Back: Cervical spine has mild tenderness GI: Soft and nontender Musculoskeletal: Swelling present in the right wrist area but the wrist has good range of motion. Right knee has no obvious deformity or swelling or abrasion but has she has pain on range of motion Neurological: A&O, normal speech Psychiatric: Cooperative Constitutional Vital Signs, click to edit/add: Last Vital Signs Temp 98.4 F 03/03/24 08:06 Pulse 96 H 03/03/24 09:04 Resp 18 03/03/24 08:06 BP 112/97 H 03/03/24 08:06 Pulse Ox 93 L 03/03/24 09:04 O2 Del Method Nasal Cannula 03/03/24 09:04 O2 Flow Rate 2 03/03/24 09:04 Course Vital Signs Vital signs: Vital Signs Temperature 98.4 F 03/03/24 08:06 Pulse Rate 100 H 03/03/24 08:06 Respiratory Rate 18 03/03/24 08:06 Blood Pressure 112/97 H 03/03/24 08:06 Pulse Oximetry 90 L 03/03/24 08:06 Oxygen Delivery Method Room Air 03/03/24 08:06 Temperature 98.4 F 03/03/24 08:06 Pulse Rate 96 H 03/03/24 09:04 Respiratory Rate 18 03/03/24 08:06 Blood Pressure 112/97 H 03/03/24 08:06 Pulse Oximetry 93 L 03/03/24 09:04 Oxygen Delivery Method Nasal Cannula 03/03/24 09:04 Oxygen Delivery Flow Rate 2 03/03/24 09:04 Medical Decision Making MDM Narrative Medical decision making narrative: Subarachnoid hemorrhage is identified as well as a displaced nasal bone fra cture. She also has mild rhabdomyolysis. She is going to be transferred to [facility]. I have spoken to Dr. Patel in the emergency department there who accepts the patient. The patient is agreeable and stable for transfer. She was given IV fluids for the rhabdomyolysis. She has a normal neurologic exam. Differential Diagnosis Differential Diagnosis: Facial contusion, facial fracture, intracranial hemorrhage Lab Data Lab results reviewed: Yes I reviewed the patient's lab results Labs: Lab Results 03/03/24 03/03/24 Range/Units 08:21 09:00 WBC 11.5 H (4.0-11.0) 10^3/uL RBC 4.69 (4.20-5.40) 10^6/uL Hgb 14.3 (12.0-16.0) g/dL Hct 43.2 (36.0-48.0) % MCV 92.1 (81.0-99.0) fL MCH 30.5 (26.7-34.0) pg MCHC 33.1 (29.9-35.2) g/dL RDW 13.2 (11.0-15.0) % Plt Count 155 (150-450) 10^3/uL MPV 10.4 (9.5-13.5) fL Neut % (Auto) 81.0 H (43.0-75.0) % Lymph % (Auto) 8.6 L (20.5-60.0) % Candler % (Auto) 9.6 (1.7-12.0) % Eos % (Auto) 0.1 L (0.9-7.0) % Baso % (Auto) 0.3 (0.2-2.0) % Neut # (Auto) 9.3 H (1.4-6.5) 10^3/uL Lymph # (Auto) 1.0 L (1.2-3.8) 10^3/uL Candler # (Auto) 1.1 H (0.3-0.8) 10^3/uL Eos # (Auto) 0.0 (0.0-0.7) 10^3/uL Baso # (Auto) 0.0 (0.0-0.1) 10^3/uL Abs Immat Gran (auto) 0.05 H (0.00-0.03) 10^3/uL Imm/Tot Granulo (auto) 0.4 (0.0-0.5) % Sodium 135 L (136-145) mmol/L Potassium 3.7 (3.5-5.1) mmol/L Chloride 96 L (98-107) mmol/L Carbon Dioxide 31.0 (21.0-32.0) mmol/L Anion Gap 11.7 BUN 12.0 (7.0-18.0) mg/dL Creatinine 1.29 H (0.55-1.02) mg/dL Est GFR ( Amer) 49 L (>=60 mL/min/1.73m^2) Est GFR (Non-Af Amer) 40 L (>=60 mL/min/1.73m^2) BUN/Creatinine Ratio 9.3 Glucose 157 H (74-106) mg/dL Calcium 8.8 (8.5-10.1) mg/dL Total Creatine Kinase 398 H* (26-192) U/L Influenza Type A Ag Negative Influenza Type B Ag Negative SARS-CoV-2 Ag (CV2AG) Negative (NEGATIVE) Imaging Data CT scan - head: Radiologist's impression: ITS Impressions Facial Bones CT 03/03/24 08:07 IMPRESSION: 1. Small volume subarachnoid hemorrhage along the interhemispheric fissure anteriorly. 2. Mildly displaced rightward angulated fracture involving the anterior nasal septum. Minimally displaced fracture involving the anterior right nasal bone. Associated blood products within the posterior right nasal passage and presumed small nasal septum hematoma. 3. No acute fracture or traumatic malalignment of the cervical spine. Notification of Results Provider/Agent notified: Dr. Sean Jose Time/Date notified: 03/03/2024 7:17 AM MST Notifying Staff: Dr. Guzman Electronically authenticated by: DHARA GUZMAN Date: 03/03/2024 09:18 Knee X-Ray 03/03/24 08:07 IMPRESSION: Moderate osteoarthritis Electronically authenticated by: JASON RAMON Date: 03/03/2024 09:12 Wrist X-Ray 03/03/24 08:07 IMPRESSION: Soft tissue swelling, no acute fracture Electronically authenticated by: JASON RAMON Date: 03/03/2024 09:[address] 03/03/24 08:08 IMPRESSION: 1. Small volume subarachnoid hemorrhage along the interhemispheric fissure anteriorly. 2. Mildly displaced rightward angulated fracture involving the anterior nasal septum. Minimally displaced fracture involving the anterior right nasal bone. Associated blood products within the posterior right nasal passage and presumed small nasal septum hematoma. 3. No acute fracture or traumatic malalignment of the cervical spine. Notification of Results Provider/Agent notified: Dr. Sean Jose Time/Date notified: 03/03/2024 7:17 AM [facility] Notifying Staff: Dr. Guzman Electronically authenticated by: DHARA GUZMAN Date: 03/03/2024 09:[address] 03/03/24 08:08 IMPRESSION: 1. Small volume subarachnoid hemorrhage along the interhemispheric fissure anteriorly. 2. Mildly displaced rightward angulated fracture involving the anterior nasal septum. Minimally displaced fracture involving the anterior right nasal bone. Associated blood products within the posterior right nasal passage and presumed small nasal septum hematoma. 3. No acute fracture or traumatic malalignment of the cervical spine. Notification of Results Provider/Agent notified: Dr. Sean Jose Time/Date notified: 03/03/2024 7:17 AM [facility] Notifying Staff: Dr. Guzman Electronically authenticated by: DHARA GUZMAN Date: 03/03/2024 09:18 Chest X-Ray 03/03/24 08:26 IMPRESSION: No acute cardiopulmonary process Electronically authenticated by: JASON RAMON Date: 03/03/2024 09:10 Critical Care Time Critical Care Time Critical Care Time: Yes Total Critical Care Time: 40 Attestation: Due to the high probability of sudden and clinically significant deterioration in the patient's condition he/she required the highest level of my preparedness to intervene urgently I provided critical care time including documentation time, medication orders and management, reevaluation, vital sign assessment, ordering and reviewing of lab tests, ordering and reviewing of x-ray studies, and admission orders. Aggregate critical care time is 40 minutes including only time during which I was engaged in work directly related to his/her care and did not include time spent treating other patients simultaneously. Discharge Plan Discharge Chief Complaint: Fall Clinical Impression: Subarachnoid hemorrhage, Fracture, nasal, Rhabdomyolysis Patient Disposition: [facility] Time of Disposition Decision: 09:51 Discharge Location: [facility] Condition: Fair Mode of Transportation: EMS
--- NOTE | 2024-03-03 08:26 | XR_ITS ---
The [address] [address] Patient Name: GURJIT CAMARA MRN: [id number] date: 1945 Sex: F Assigned Patient Location: ER Current Patient Location: ER Accession/Order Number: [id number] Exam Date: 03/03/2024 08:45 Report Date: 03/03/2024 09:10 At the request of: FADUMO WEBSTER Procedure: XR chest 1V EXAMINATION: XR chest 1V HISTORY: SOB COMPARISON: 06/10/2022 TECHNIQUE: AP portable FINDINGS: LUNGS: No significant pulmonary parenchymal abnormalities. Elevation the right hemidiaphragm VASCULATURE: No increased pulmonary vasculature. PLEURA: No pneumothorax, effusion, or pleural thickening. CARDIAC: No cardiomegaly or cardiac silhouette abnormality. MEDIASTINUM: No visible mass or adenopathy. Aortic atherosclerosis BONES: No fracture or visible bone lesion. Severe bilateral glenohumeral joint osteoarthropathy, left greater than right OTHER: Negative. XR/XR chest 1V IMPRESSION: No acute cardiopulmonary process Electronically authenticated by: JASON RAMON Date: 03/03/2024 09:10
[2024-03-03 08:31] LABS: Basophils Percent Auto 0.3 % (0.2-2.0); Eosinophils Percent Auto 0.1 % (0.9-7.0); Hematocrit 43.2 % (36.0-48.0); Hemoglobin 14.3 g/dL (12.0-16.0); Immature Granulocytes Abs Auto 0.05 10^3/uL (0.00-0.03); Immature Granulocytes Pct Auto 0.4 % (0.0-0.5); Lymphocytes Percent Auto 8.6 % (20.5-60.0); Mean Corpuscular HGB Conc 33.1 g/dL (29.9-35.2); Mean Corpuscular Hemoglobin 30.5 pg (26.7-34.0); Mean Corpuscular Volume 92.1 fL (81.0-99.0); Mean Platelet Volume 10.4 fL (9.5-13.5); Monocytes Absolute Auto 1.1 10^3/uL (0.3-0.8); Monocytes Percent Auto 9.6 % (1.7-12.0); Neutrophils Absolute Auto 9.3 10^3/uL (1.4-6.5); Platelet Count 155 10^3/uL (150-450); Red Blood Count 4.69 10^6/uL (4.20-5.40); Red Cell Distribution Width 13.2 % (11.0-15.0); White Blood Count 11.5 10^3/uL (4.0-11.0)
[2024-03-03 08:45] LABS: Anion Gap 11.7; BUN Creatinine Ratio 9.3; Calcium 8.8 mg/dL (8.5-10.1); Chloride 96 mmol/L (98-107); Estimated GFR (African America 49 (>=60 mL/min/1.73m^2); Estimated GFR (Non-African Ame 40 (>=60 mL/min/1.73m^2); Glucose 157 mg/dL (74-106); Potassium 3.7 mmol/L (3.5-5.1); Sodium 135 mmol/L (136-145)
[2024-03-03 08:54] LABS: Creatine Kinase 398 U/L (26-192)
[2024-03-03] MEDS: ALBUTEROL SULFATE 2.5 MG/3 ML VIAL NEB IH (09:04)
[2024-03-03 09:29] LABS: Influenza Virus A Antigen Negative; Influenza Virus B Antigen Negative; Internal Control Within Normal Limits; SARS-CoV-2 Ag NEGATIVE (NEGATIVE)
[2024-03-03] MEDS: 0.9 % SODIUM CHLORIDE 1,000 ML 100 ML IV (09:43)
[2024-03-03] MEDS: MORPHINE SULFATE 4 MG/ML VIAL IV (12:33)
== END 2024-03-03 13:30 | disposition short-term general hospital (02) ==
PROVIDERS: Emergency Provider Emergency Medicine; PCP Family Medicine
DX: S06.6X0A Traumatic subarachnoid hemorrhage without loss of consciousness, initial encounter (principal); S02.2XXA Fracture of nasal bones, initial encounter for closed fracture; M62.82 Rhabdomyolysis; W18.39XA Other fall on same level, initial encounter; Z79.82 Long term (current) use of aspirin
CPT/HCPCS: 36415; 70450; 70486; 71045; 72125; 73110; 73562; 80048; 82550; 85025; 87804; 87811; 93005; 94640; 96374; 99285; J2270

== ENCOUNTER 2024-03-16 18:20 | Inpatient (IN) | payer MEDICARE, SELFPAY ==
[2024-03-16] VITALS (20 sets, daily range): BP systolic 99–102; BP diastolic 38–58; PULSE 42–88; TEMP 36.5–36.6; O2SAT 89–97; BMI 39.3; BMI 39.8
--- NOTE | 2024-03-16 18:35 | XR_ITS ---
The [address] [address] Patient Name: GURJIT CAMARA MRN: [id number] date: 1945 Sex: F Assigned Patient Location: ER Current Patient Location: ER Accession/Order Number: [id number] Exam Date: 03/16/2024 19:31 Report Date: 03/16/2024 20:37 At the request of: ELAINE TURCIOS Procedure: XR chest 1V EXAMINATION: XR chest 1V HISTORY: Syncope COMPARISON: XR chest 03/03/2024 FINDINGS: LUNGS: No significant pulmonary parenchymal abnormalities. VASCULATURE: No increased pulmonary vasculature. PLEURA: No pneumothorax, effusion, or pleural thickening. CARDIAC: No cardiomegaly or cardiac silhouette abnormality. MEDIASTINUM: No visible mass or adenopathy. BONES: Marked degenerative changes of the glenohumeral joints and acromioclavicular joints. OTHER: Negative. XR/XR chest 1V IMPRESSION: 1. Underexpanded lungs. No acute cardiopulmonary process. Electronically authenticated by: PEPPER WOOD Date: 03/16/2024 20:37
--- NOTE | 2024-03-16 18:35 | CT_ITS ---
The [address] [address] Patient Name: GURJIT CAMARA MRN: [id number] date: 1945 Sex: F Assigned Patient Location: ER Current Patient Location: Accession/Order Number: [id number] Exam Date: 03/16/2024 19:31 Report Date: 03/16/2024 20:46 At the request of: ELAINE TURCIOS Procedure: CT head/brain wo con EXAMINATION: CT head/brain wo con HISTORY: Syncope COMPARISON: CT head 03/03/2024 TECHNIQUE: Axial CT images were obtained without IV contrast. Dose reduction techniques were achieved by using automated exposure control and/or adjustment of mA and/or kV according to patient size and/or use of iterative reconstruction technique. FINDINGS: BRAIN: No edema, hemorrhage, mass, acute infarction, or inappropriate atrophy. CSF SPACES: No hydrocephalus, subarachnoid hemorrhage, or mass. Chronic, prominent choroid plexus within the posterior horns of the lateral ventricles; symmetric bilaterally.. SKULL: No fracture, mass, or other significant visible lesion. SINUSES: Mucosal thickening within the small visible portion of the maxillary sinuses bilaterally. ORBITS: No appreciable abnormality on the limited views. OTHER: Negative CT/CT head/brain wo con IMPRESSION: 1. No intracranial hemorrhage or appreciable acute abnormality. 2. Age consistent atrophy and chronic small vessel ischemic changes. 3. No fracture of the calvarium or scalp hematoma. 4. Bilateral maxillary sinusitis. Very limited views on today's study. Electronically authenticated by: PEPPER WOOD Date: 03/16/2024 20:46
--- OUTSIDE RECORDS SUMMARY | 2024-03-16 18:35 | XMS_ITS | CCD ---
Author Organization [facility] Care Team Providers Care Stunt Performer Name Role Phone Jani Aguilera Unavailable Nicole Vargas Primary Care Provider China Noland Unavailable SAM, DR RIVERA Primary Care Unavailable [...] NETTE Consulting Unavailable NEFCY, PETER Consulting Unavailable MICHAELA, SHELLIE Attending Unavailable MICHAELA, SHELLIE Admitting Unavailable SAM, DR RIVERA Primary Care Unavailable MICHAELA, SHELLIE Consulting Unavailable SAM, DR RIVERA Consulting Unavailable SAM, DR RIVERA Attending Unavailable SAM, DR RIVERA Admitting Unavailable SAM, DR RIVERA Primary Care Unavailable KARAMLOU, ROSA Admitting Unavailable KARAMLOUROSA Attending Unavailable ZIEBER, DR PEPPER Fuller Consulting Unavailable SAM, DR RIVERA Primary Care Unavailable KARAMLOU, ROSA Consulting Unavailable Sam, MD Nicole Napier Primary Care Provider JOHANNA Fan Attending Provider DO Tamiko Zhou Referring Provider Nicole Vargas MD Primary Care Provider [phone] Mary Dasilva RN Unavailable Unavailable Provider, Ordering Unavailable MD Nicole Vargas Primary Care Provider [phone] JOHANNA Fan Attending Provider DO Tamiko Zhou Referring Provider MD Nani Calloway Attending Provider Mast, Hilario Unavailable Nicole Vargas MD Primary Care Provider MD Nicole Vargas Primary Care Provider MD Nani Calloway Attending Provider ANDRÉS Ellis Attending Provider Mast DO, Hilario E Primary Care Provider Nicole Vargas MD Primary Care Provider [facility] Unavailable KARAMLOU, ROSA Referring Unavailable SMA, [facility] Primary Care Unavailable VITORAMLOU, ROSA Referring Unavailable RUTH ANN GUTIERRES Attending Unavailable SAM, NICOLE [facility] Primary Care Unavailable VITORAMLOU, ROSA Referring Unavailable RUTH ANN GUTIERRES Attending Unavailable SAM, [facility] Primary Care Unavailable VITORAMLOU, ROSA Referring Unavailable MD Nicole Vargas Primary Care Provider [phone] MD Nani Calloway Attending Provider Mast, DO Hilario Primary Care Provider [phone] Mast, DO Hilario Attending Provider Mast, DO Hilario Primary Care Provider [phone] Mast, DO Hilario Attending Provider BERNADINE DIAZ Attending Unavailable PARUL PERRY Attending Unavailable BERNADINE DIAZ Attending Unavailable BERNADINE DIAZ Referring Unavailable MD Jani Aguilera Attending Provider Mast, Hilario Primary Care Unavailable Nani Calloway Attending Unavailable Nani Calloway Admitting Unavailable Mast, Hilario Primary Care Unavailable Jani Aguilera Attending Unavailable Jani Aguilera Admitting Unavailable Mast, Hilario Attending Unavailable Mast, Hilario Primary Care Unavailable Mast, Hilario Admitting Unavailable Mast, Hilario Primary Care Unavailable Mast, Hilario Admitting Unavailable Mast, Hilario Attending Unavailable Calloway, Cardoza Attending Unavailable Nani Calloway Admitting Unavailable Elmont, Rugen M Primary Care Unavailable ALFREDO STAPLES Consulting Unavailable TONA AVENDAÑO Admitting Unavailable TONA AVENDAÑO Attending Unavailable MAST, HILARIO Primary Care Unavailable JAS MAGUIRE Consulting Unavailable MASHALEH I, MOHAMMAD Consulting Unavailable YOLANDA, ALTAGRACIA L Consulting Unavailable Mast DO, Hilario Primary Care Provider NANI CALLOWAY Attending Unavailable NANI CALLOWAY Referring Unavailable SAM, RUGEN MABALAY Primary Care Unavailable NANI CALLOWAY Attending Unavailable JACQUELINE CAMPOS Referring Unavailable SAM, RUGEN MABALAY Primary Care Unavailable ALFREDO STAPLES Consulting Unavailable TONA AVENDAÑO Admitting Unavailable TONA AVENDAÑO Attending Unavailable MAST, HILARIO Primary Care Unavailable JAS MAGUIRE Consulting Unavailable MASHALEH I, MOHAMMAD Consulting Unavailable YOLANDA, ALTAGRACIA L Consulting Unavailable OBDULIA, TARIF A Consulting Unavailable Allergies Allergy Classification Reported Allergen(s) Allergy Type Date of Onset Reaction(s) Facility Adhesive Tape (1 source) Adhesive Tape Substance Allergy 4 [facility] NSAIDs (2 sources) Ibuprofen Drug Allergy 3 Anaphylaxis [facility] pregabalin (2 sources) pregabalin Drug Allergy 3 Confusion [facility] Work Phone: Sulfonamides (antibiotic) (1 source) Sulfonamides (Antibiotic) Drug Allergy 3 GI Upset [facility] Work Phone: (7 sources) Ibuprofen Drug Allergy Unknown [facility] Other (20 sources) pregabalin; 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: [PREGABALIN] Drug Allergy 1 Mental Status Change, Confusion, Other (See Comments) [facility] (16 sources) Ibuprofen; 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: [IBUPROFEN] Drug Allergy 7 Intolerance, Other [facility] (5 sources) rofecoxib; 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: [ROFECOXIB] Drug Allergy 7 Swelling [facility] (7 sources) Sulfonamides (Antibiotic); 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: [SULFA (SULFONAMIDE ANTIBIOTICS)] Drug Allergy 7 Vomiting, GI Upset [facility] (1 source) Adhesive agent Drug allergy (disorder) 7 [facility] (1 source) Ibuprofen Drug Allergy 7 [facility] (1 source) pregabalin Drug Allergy 1 [facility] (1 source) rofecoxib Drug Allergy 6 [facility] (1 source) Trimethoprim Drug Allergy 1 [facility] (4 sources) Adhesive Tape Drug allergy rash [facility] Other (8 sources) Adhesive Tape; 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: [adhesive tape] Allergy to substance 3 [facility] (4 sources) Ramipril; 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: [ramipril] Drug Allergy 4 [facility] (1 source) Ibuprofen Drug Allergy 4 [facility] (1 source) pregabalin Drug Allergy 4 [facility] Medications Current Medications Medication Drug Class(es) Dates Sig (Normalized) Sig (Original) [id number] 200 actuat albuterol 0.09 mg/actuat metered dose inhaler (5 sources) beta2-Adrenergic Agonist Start: 05-31-2022 take 2 [...] NEEDED alendronic acid 70 mg oral tablet (20 sources) Bisphosphonate Start: 3 take 70 mg by mouth every week Alendronate Active 70 MG PO every week January 15, 2023 1:00am Saturday's Start: 05-15-2021 End: 05-15-2022 take 1 tablet by mouth every week alendronate (FOSAMAX) 70 mg tablet Take 70 mg by mouth one time a week. 0 08/08/2021 Active alendronate (FOS AMAX) 70 MG tablet Take 1 tablet by mouth every 7 days Active take 75 mL by mouth in the morning alendronate (Fosamax) 70 mg/75 mL solution Take 75 mL (70 mg) by mouth every 7 days. Take in the morning with a full glass of water, on an empty stomach, and do not take anything else by mouth or lie down for the next 30 min. Active Comment on above: Take 70 mg by mouth one time a week. amoxicillin 500 mg oral capsule (11 sources) Penicillin-class Antibacterial amoxicillin (Amoxil) 500 mg capsule Take 4 capsules (2,000 mg) by mouth if needed (before dental). Active aspirin 81 mg delayed release oral tablet (20 sources) Platelet Aggregation Inhibitor, Nonsteroidal Anti-inflammatory Drug Start: take 1 tablet by mouth once daily aspirin 81 MG EC tablet Take 1 tablet by mouth daily 30 tablet 3 03/07/2024 Active Start: 03-05-2024 take 81 mg by mouth once daily 81 mg, Oral, DAILY, First dose on Annie 03/05/24 at 1015, Until Discontinued, Do not crush or break. Start: 01-18-2023 End: 03-06-2024 take 1 tablet by mouth once daily Aspirin (Children's Aspirin) 81 mg Tablet,Chewable Active 81 MG PO Daily 0 January 18, 2023 1:00am Start: 01-15-2023 End: 03-03-2024 take 1 tablet by mouth once daily in the morning Aspirin (Елена Aspirin) 325 mg Tablet Discontinued 325 MG PO Every morning January 15, 2023 1:00am January 18, 2023 11:56am take 1 tablet by flori th once daily aspirin 81 mg EC tablet Take 1 tablet (81 mg) by mouth once daily. Active aspirin 81 mg ca p Take 325 mg by mouth once daily. 0 Active Comment on above: Take 325 mg by mouth once daily. cetirizine hydrochloride 10 mg oral tablet (16 sources) Histamine-1 Receptor Antagonist Start: 01-16-20 take 1 tablet by mouth once daily Cetirizine (Zyrtec) 10 mg Tablet Active 10 MG PO Daily January 15, 2023 1:00am 12 hr cetirizine hydrochloride 5 mg / pseudoephedrine hydrochloride 120 mg extended release oral tablet (4 sources) alpha-Adrenergic Agonist, Histamine-1 Receptor Antagonist take 1 tablet by mouth twice daily cetirizine-pseudoephed rine (ZyrTEC-D) 5-120 mg 12 hr tablet Take 1 tablet by mouth 2 times a day. Active cholecalciferol 0.125 mg oral tablet (16 sources) Vitamin D Start: 01-16-20 take 1 tablet by mouth once daily Cholecalciferol (Vitamin D3) (Vitamin D3) 125 mcg (5,000 unit) Tablet Active 125 MCG PO every day at noon January 15, 2023 1:00am Vitamin D3 125 M CG (5000 UT) as directed Orally Active Vitamin D3 125 M CG (5000 UT) as directed Orally Active folic acid 1 mg oral tablet (20 sources) Start: 01-15-2023 take 1 mg by mouth once daily in the morning Folic Acid Active 1 MG PO Every morning January 15, 2023 1:00am Comment on above: Take 1 mg by mouth o nce daily. nitroglycerin 0.4 mg sublingual tablet (14 sources) Nitrate Vasodilator Start: 01-18-2023 Nitroglycerin Active 0.4 MG SUBLINGUAL Q5M 25 January 18, 2023 1:00am Nitroglycerin 0. 4 MG as directed Sublingual Active [place] 3-6-9 - (3 sources) [place] 3-6-9 - as directed Orally Active omega-3 acid ethyl esters (penitentiary) 1000 mg oral capsule (4 sources) omega-3 acid eth yl esters (Lovaza) 1 gram capsule Take 1 capsule (1 g) by mouth once daily. Active [place]-3 Fatty Acids (9 sources) Start: 01-15-2023 take 1000 mg by mouth twice daily [place]-3 Fatty Acids Active 1000 MG PO Twice daily January 15, 2023 1:00am Start: 01-15-2023 take 1000 mg by mout h twice daily [place]-3 Fatty Acids Active 1000 MG PO Twice daily January 15, 2023 12:00am ondansetron (ZOFRAN-ODT) disintegrating tablet 4 mg (1 source) Start: 03-03-2024 ondansetron (ZOFRAN-ODT) disintegrating tablet 4 mg polyethylene glycol [id number] mg powder for oral solution (1 source) Osmotic Laxative Start: 03-03-2024 17 g, Oral, DAILY, First dose on Sat03/03/24 at 1630, Until Discontinued, Stir and dissolve one packet of powder (17 g) in any 4 to 8 ounces of beverage (cold, hot or room temperature) then drink predniSONE 20 mg oral tablet (1 source) Start: 05-31-2022 take 1 tablet by mouth every twelve hours prednisone 20 MG 1 tablet Orally Twice a day for 5 days May, Active ticagrelor 90 mg oral tablet (16 sources) Start: 03-11-2024 take 90 mg by mouth twice daily 90 mg, Oral, 2 TIMES DAILY, First dose on Sat03/11/24 at 0900, Until Discontinued, ANTIPLATELET! Start: 01-18-2023 End: 03-06-2024 take 1 tablet by mouth twice daily Ticagrelor (Brilinta) 90 mg Tablet Active 90 MG PO Twice daily 180 90 January 18, 2023 1:00am traMADol hydrochloride 50 mg oral tablet (20 sources) Opioid Agonist Start: 01-15-2023 End: 12-02-2023 take 50 mg by mouth four times daily Tramadol Active 50 MG PO Four times daily December 02, 2023 1:14pm take 1 tablet by flori th every six hours as needed traMADol (Ultram) 50 mg tablet Take 1 tablet (50 mg) by mouth every 6 hours if needed for severe pain (7 - 10). Active Comment on above: Take 50 mg by mouth as needed. Completed/Discontinued Medications Medication Drug Class(es) Dates Sig (Normalized) Sig (Original) acetaminophen 500 mg oral tablet (17 sources) Start: 03-03-2024 take 1 dose by mouth three times daily, then take 4000 mg by mouth every twenty-four hours 1,000 mg, Oral, EVERY 8 HOURS SCHEDULED (3 times per day), First dose on Sat03/03/24 at 1515, Until Discontinued, Maximum dose of acetaminophen is 4000 mg from all sources in 24 hours. Start: 01-15-2023 End: 12-09-2023 take 1 tablet by mouth once daily Acetaminophen (Tylenol Extra Strength) 500 mg Tablet Discontinued 500 MG PO Daily January 15, 2023 1:00am December 09, 2023 1:09pm [facility] 2 [facility] hours Acetaminophen ER 650 MG 2 tablets as needed Orally every 8 hrs Not-Taking/PRN take 2 tablets by mo ut every eight hours as needed Acetaminophen ER 650 MG 2 tablets as needed Orally every 8 hrs Active amitriptyline hydrochloride 10 mg oral tablet (4 sources) Tricyclic Antidepressant Start: 10-30-2016 End: 05-13-2023 amitriptyline (ELAVIL) 10 mg tablet Indications: Malignant neoplasm of right female breast, unspecified estrogen receptor status, unspecified site of breast (HCC) Take 10 mg by mouth. 0 10/30/2016 05/13/2023 Discontinued (Discontinued by Patient) Comment on above: Take 10 mg by mouth. amoxicillin 875 mg / clavulanate 125 mg oral tablet (6 sources) Penicillin-class Antibacterial Start: 09-02-2023 End: 12-02-2023 take 1 tablet by mouth twice daily Amoxicillin-Pot Clavulanate Discontinued 1 TAB PO Twice daily September 02, 2023 12:00am December 02, 2023 1:12pm ASCORBIC ACID/MULTIVIT-MIN (EMERGEN-C ORAL) (4 sources) ASCORBIC ACID/MULTIVIT-MIN (EMERGEN-C ORAL) Take by mouth. 0 Active Comment on above: Take by mouth. azithromycin 250 mg oral tablet (5 sources) Macrolide Antimicrobial Start: 09-16-2023 End: 11-08-2023 Azithromycin (Zithromax Z-Rupert) 250 mg tablet Discontinued 0 PO .COMPLEX September 16, 2023 12:00am November 08, 2023 9:05am For 250 mg dose pack: take 500 mg today (day 1), then 250 mg for 4 days (days 2-5) PO Baclofen (4 sources) gamma-Aminobutyric Acid-ergic Agonist BACLOFEN ORAL Take by mouth as needed. 0 Active BACLOFEN ORAL Ta ke by mouth. 0 Active Comment on above: Take by mouth. Take by mouth as nee ded. benzocaine 15 mg / menthol 3.6 mg oral lozenge (1 source) Standardized Chemical Allergen Start: 5 1 lozenge, Oral, EVERY 2 HOURS PRN, Starting on Sat03/06/24 at 1101, Until Discontinued, Sore Throat benzonatate 200 mg oral capsule (7 sources) Non-narcotic Antitussive Start: 4 End: 4 take 200 mg by mouth three times daily Benzonatate Discontinued 200 MG PO Three times daily November 12, 2023 12:00am December 09, 2023 1:09pm Start: 05-31-2022 take 1 capsule by mo [facility] every eight hours Tessalon Perles 100 MG 1 capsule as needed Orally Three times a day for 7 days May, Active carvedilol 6.25 mg oral tablet (20 sources) alpha-Adrenergic Stas, beta-Adrenergic Stas Start: 03-03-2024 take 3.125 mg by mouth twice daily at mealtime 3.125 mg, Oral, 2 TIMES DAILY WITH MEALS, First dose on Sat03/03/24 at 2100, Until Discontinued, Administer with food to minimize the risk of orthostatic hypotension Start: 01-15-2023 take 6.125 mg by flori twice daily Carvedilol Active 6.125 MG PO Twice daily January 15, 2023 1:00am Start: 04-29-2019 take 1 tablet by flori th twice daily carvedilol (COREG) 6.25 mg tablet Take 6.25 mg by mouth twice daily. 0 04/29/2019 Active take 1 tablet by flori twice daily at mealtime carvedilol (COREG) 3.125 MG tablet Take 1 tablet by mouth 2 times daily (with meals) Active Comment on above: Take 6.25 mg by mout h twice daily. cetirizine HCl/pseudoephedrine (ZYRTEC-D ORAL) (1 source) cetirizine HCl/pseudoephedrine (ZYRTEC-D ORAL) Take by mouth. 0 Active Comment on above: Take by mouth. cholecalciferol, vitamin D3, (VITAMIN D3 ORAL) (8 sources) Start: 12-01-2020 cholecalciferol, vitamin D3, (VITAMIN D3 ORAL) Refills(s) 0 0 12/01/2020 Active take 500 [IU] by mouth once emi y cholecalciferol, vitamin D3, (VITAMIN D3 ORAL) Take 500 Units by mouth once daily. Active take 500 [IU] by mouth once emi y cholecalciferol, vitamin D3, (VITAMIN D3 ORAL) Take 500 Units by mouth once daily. 0 Active Comment on above: Refills(s) 0 cyclobenzaprine hydrochloride 10 mg oral tablet (4 sources) Muscle Relaxant Start: End: cyclobenzaprine (FLEXERIL) 10 mg tablet Take 10 mg by mouth as needed. 3 07/11/2018 05/13/2023 Discontinued (Discontinued by Patient) Comment on above: Take 10 mg by mouth as needed. DULoxetine 30 mg delayed release oral capsule (20 sources) Serotonin and Norepinephrine Reuptake Inhibitor Start: take 1 capsule by mouth once daily 60 mg, Oral, DAILY, First dose on Sat03/03/24 at 2100, Until Discontinued, Do not crush or break. May add contents of capsule to apple juice or apple sauce, but not chocolate. Start: 01-15-2023 take 1 capsule by [facility] once daily at bedtime Duloxetine (Cymbalta) 60 mg capsule,delayed release(DR/EC) Active 60 MG PO Daily at bedtime January 15, 2023 1:00am Comment on above: Take 60 mg by mouth once daily. 0.3 ml enoxaparin sodium 100 mg/ml prefilled syringe (1 source) Low Molecular Weight Heparin Start: 03-04-19 inject 30 mg by subcutaneous injection twice daily 30 mg, SubCUTAneous, 2 TIMES DAILY, First dose on Sat03/04/24 at 1400, Until Discontinued, Indication of Use: Prophylaxis-DVT/PE, Administer by deep subCUTAneous injection with pt lying down. Alternate injection sites on abdominal wall. Do not rub site after injection. Check with provider prior to any invasive procedure. famotidine 20 mg oral tablet (2 sources) Histamine-2 Receptor Antagonist Start: 03-06-19 take 20 mg by mouth once daily 20 mg, Oral, DAILY, First dose (after last modification) on Sat03/06/24 at 0900, Until Discontinued, Renal dose adjustment per P&T Guidelines Start: 03-03-2024 End: 03-05-2024 take 20 mg by mouth twice daily 20 mg, Oral, 2 TIMES DAILY, First dose on Sat03/03/24 at 2100, Until Discontinued furosemide 40 mg oral tablet (15 sources) Loop Diuretic Start: 03-03-2024 take 40 mg by mouth twice daily 40 mg, Oral, 2 TIMES DAILY, First dose on Sat03/03/24 at 2100, Until Discontinued Start: 03-06-2023 take 40 mg by mouth once daily Furosemide Active 40 MG PO Daily November 08, 2023 12:00am Start: 03-15-2020 furosemide (LA SIX) 20 mg tablet hydroCHLOROthiazide 25 mg oral tablet (1 source) Thiazide Diuretic Start: 03-03-2024 take 25 mg by mouth once daily 25 mg, Oral, DAILY, First dose on Sat03/03/24 at 2100, Until Discontinued, Substituted for Indapamide (LOZOL). indapamide 1.25 mg oral tablet (14 sources) Thiazide-like Diuretic Start: 04-02-2023 End: 04-01-2024 Indapamide Discontinued 1.25 MG PO May 06, 2023 1:00am December 02, 2023 1:15pm Comment on above: Take 1.25 mg by mout h every morning. iopamidol (ISOVUE-370) 76 % injection 130 mL (1 source) Start: 03-03-2024 End: 03-03-2024 take 1 dose intravenously once 130 mL, IntraVENous, IMG ONCE PRN, 1 dose, Starting on Sat03/03/24 at 1511, Until Sat03/03/24 at 1543, Other letrozole 2.5 mg oral tablet (20 sources) Aromatase Inhibitor Start: 01-15-2023 End: 12-02-2023 take 2.5 mg by mouth once daily in the morning Letrozole Discontinued 2.5 MG PO Every morning January 15, 2023 1:00am December 02, 2023 1:14pm Start: 01-24-2021 End: 05-15-2022 take 1 tablet by mouth once daily letrozole (FEMARA) 2.5 mg tablet Take 1 tablet by mouth once daily. 90 tablet 3 05/15/2022 Active Comment on above: Take 1 tablet by flori th once daily Take 1 tablet by flori th once daily. take 1 tablet by flori th every day levothyroxine sodium 0.112 mg oral tablet (20 sources) l-Thyroxine Start: 06-26-2018 take 112 ug by mouth once daily 112 mcg, Oral, DAILY, First dose on Sat03/04/24 at 0700, Until Discontinued, Tube feeding (TF) interaction, obtain physician order to manage, recommend holding TF for 30 minutes before and after dose. levothyroxine (T irosint) 112 mcg capsule Take by mouth once daily in the morning. Take before meals. Active take 1 tablet by flori th [...] 112 mcg by mout h once daily. Magnesium (4 sources) End: 05-13-2023 MAGNESIUM ORAL Take by mouth. 0 05/13/2023 Discontinued (Discontinued by Patient) MAGNESIUM ORAL T delia by mouth. 0 Active Comment on above: Take by mouth. montelukast 10 mg oral tablet (20 sources) Leukotriene Receptor Antagonist Start: take 10 mg by mouth once daily 10 mg, Oral, NIGHTLY, First dose on Sat03/03/24 at 2100, Until Discontinued Comment on above: Take 10 mg by mouth daily at bedtime. oxaprozin 600 mg oral tablet (4 sources) Nonsteroidal Anti-inflammatory Drug Start: 020 End: take 1 tablet by mouth twice daily oxaprozin (DAYPRO) 600 mg tablet Take 600 mg by mouth twice daily. 0 04/22/2019 05/13/2023 Discontinued (Discontinued by Patient) Comment on above: Take 600 mg by mouth twice daily. Potassium (4 sources) POTASSIUM ORAL T delia by mouth. 0 Active Comment on above: Take by mouth. potassium bicarbonate 20 meq effervescent oral tablet (1 source) Start: 025 End: take 3-4 tablets by mouth once 40 mEq, Oral, ONCE, 1 dose, On Sat03/06/24 at 0915, Do not chew or crush. Dissolve flavored tablets completely in 3 to 4 ounces of cold water; unflavored tablets may be dissolved in 3 to 4 ounces of cold juice. Patient to sip slowly over a 5 to 10 minute period. May further dilute if GI adverse effects occur. microencapsulated potassium chloride 20 meq extended release oral tablet (3 sources) Start: 025 End: 025 40 mEq, Oral, 2 TIMES DAILY, First dose on Sat03/04/24 at 0900, Until Discontinued, Do not crush or break. Do not crush, chew, or suck on tablet. Tablet may also be broken in half and each half swallowed separately. Start: 12-03-2023 take 20 mEq by mouth once emi y Potassium Chloride Active 20 MEQ PO Daily 90 December 03, 2023 12:00am take 20 mEq by mouth twice daily potassium chloride (KLOR-CON) 20 MEQ packet Take 20 mEq by mouth 2 times daily Active Probiotic Acidophilus - (7 sources) Probiotic Acidop hilus - as directed Orally Not-Taking/PRN Probiotic Acidop hilus - as directed Orally Active ramipril 10 mg oral capsule (20 sources) Angiotensin Converting Enzyme Inhibitor Start: 01-15-2023 End: 04-28-2024 take 10 mg by mouth once daily Ramipril Discontinued 10 MG PO every day at noon January 15, 2023 1:00am December 02, 2023 1:11pm Comment on above: Take 10 mg by mouth once daily. rosuvastatin calcium 20 mg oral tablet (20 sources) HMG-CoA Reductase Inhibitor Start: 05-03-2020 take 20 mg by mouth once daily 20 mg, Oral, DAILY, First dose on Sat03/03/24 at 2100, Until Discontinued Comment on above: Take 20 mg by mouth once daily. For 30 days saccharomyces boulardii 250 mg oral capsule (2 sources) End: 01-22-2023 take 1 capsule by mouth once daily saccharomyces boulardii (Florastor) 250 mg capsule Take 1 capsule (250 mg) by mouth once daily. 0 01/22/2023 Discontinued (Other) 5 ml sodium chloride 9 mg/ml injection (2 sources) Start: 03-03-2024 End: 03-05-2024 5-40 mL, IntraVENous, EVERY 12 HOURS SCHEDULED (2 times per day), First dose on Sat03/03/24 at 2100, Until Discontinued, For Line Patency: Peripheral IV = 5 mL; Midline or Central Line = 10 mL/lumen. If following IV push medication, administer flush at same rate as the IV push. Flush volume is determined by type of infusion therapy being given. For non-viscous solutions use: Peripheral IV = 5 mL Midline or Central Line = 10 mL/lumen For viscous solutions (i.e. blood components, parenteral nutrition, contrast media, or after obtaining blood sample) use: Peripheral IV = 10 mL Midline or Central Line = 20 mL/lumen Start: 03-03-2024 take 10 mL intraveno usly once as needed 10 mL, IntraVENous, PRN, Starting on Sat03/03/24 at 1612, Until Discontinued, Line Care, After every IV line use Problems Active Problems Problem Classification Problem Date Documented Date Episodic/Chronic Acute bronchitis (1 source) Acute bronchitis, unspecified; 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: [ACUTE BRONCHITIS UNSPECIFIED] Onset: 3 Episodic Acute cerebrovascular disease (5 sources) Nontraumatic subarachnoid hemorrhage, unspecified; 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: [Hemorrhage into subarachnoid space of neuraxis] Onset: 4 03-03-2024 Chronic Administrative/social admission (1 source) Persons encountering health services in other specified circumstances Episodic Calculus of urinary tract (17 sources) Kidney stone; 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: [Calculus of kidney] Onset: 3 Episodic Cancer of breast (7 sources) Malignant neoplasm of female breast; 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: [Malignant neoplasm of unspecified site of right female breast] Onset: 7 04-02-2016 Chronic Cancer of breast (7 sources) History of malignant neoplasm of breast; 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: [Personal history of malignant neoplasm of breast] Onset: 9 03-28-2018 Episodic Chronic kidney disease (13 sources) Chronic kidney disease stage 3; 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: [Chronic kidney disease, stage 3 unspecified] 12-02-2023 Chronic Chronic kidney disease (5 sources) Chronic kidney disease; 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: [CHRONIC KIDNEY DISEASE STAGE 3A] Onset: 3 Chronic obstructive pulmonary disease and bronchiectasis (6 [...] disease (20 sources) Atherosclerotic heart disease of [place] coronary artery without angina pectoris; 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: [Angina pectoris] Onset: 3 12-25-2022 Chronic Diabetes mellitus without complication (1 source) Impaired fasting glucose; 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: [IMPAIRED FASTING GLUCOSE] Onset: 3 Episodic Disorders of lipid metabolism (20 sources) Pure hypercholesterolemia, unspecified; 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: [Pure hyperglyceridemia] Onset: 3 12-25-2022 Chronic Essential hypertension (20 sources) Benign essential hypertension; 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: [Essential (primary) hypertension] Onset: 3 12-25-2022 Chronic Fluid and electrolyte disorders (2 sources) Hypokalemia; 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: [Hypokalemia] 12-03-2023 Episodic Genitourinary congenital anomalies (9 sources) Cyst of kidney; 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] Chronic Genitourinary symptoms and ill-defined conditions (9 sources) Other microscopic hematuria; 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: [Microscopic hematuria] Onset: 4 Episodic Hypertension with complications and secondary hypertension (20 sources) Chronic kidney disease due to hypertension; [...] 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: [HORMONE REPLACEMENT THERAPY] Onset: 3 Episodic Nonspecific chest pain (4 sources) Chest pain, unspecified; 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: [CHEST PAIN UNSPECIFIED] Onset: 3 Episodic Nutritional deficiencies (2 sources) Vitamin D deficiency; 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: [Vitamin D deficiency, unspecified] Onset: 3 03-05-2024 Chronic Open wounds of head; neck; and trunk (1 source) Laceration without foreign body of left ear, initial encounter Episodic Osteoarthritis (4 sources) Unspecified osteoarthritis, unspecified site; 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: [Degenerative joint disease involving multiple joints] Onset: 3 Chronic Osteoporosis (3 sources) Osteoporosis; 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: [Age-related osteoporosis without current pathological fracture] Onset: 4 05-06-2023 Chronic Other aftercare (1 source) Other 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 (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; 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: [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] Onset: 3 Episodic Other bone disease and musculoskeletal deformities (8 sources) Osteopenia; 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: [Other specified disorders of bone density and structure, unspecified site] Episodic Other bone disease and musculoskeletal deformities (5 sources) Other specified disorders of bone density and structure, unspecified site; 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: [Disorder of bone and cartilage, unspecified] 09-09-2023 Episodic Other circulatory disease (1 source) History of angioplasty; 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: [Peripheral vascular angioplasty status with implants and grafts] 01-22-2023 Chronic Other connective tissue disease (1 source) Fibromyalgia; 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: [FIBROMYALGIA] Onset: 3 Episodic Other diseases of kidney and ureters (10 sources) Secondary hyperparathyroidism; 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: [Secondary hyperparathyroidism of renal origin] 12-02-2023 Chronic Other diseases of kidney and ureters (6 sources) Secondary hyperparathyroidism of renal origin; 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: [Secondary hyperparathyroidism (of renal origin)] Onset: 4 Chronic Other diseases of kidney and ureters (3 sources) Cyst of kidney; 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: [Cyst of kidney, acquired] 12-02-2023 Episodic Other diseases of kidney and ureters (4 sources) Cyst of kidney, acquired; 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: [Cystic kidney disease, unspecified] Onset: 4 12-02-2023 Episodic Other gastrointestinal disorders (1 source) Irritable bowel syndrome without diarrhea; 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: [IRRITABLE BOWEL SYND W/O DIARRHEA] Onset: 3 Chronic Other hereditary and degenerative nervous system conditions (1 source) Degenerative disease of nervous system, unspecified; 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: [DEGENERATIVE DZ NERVOUS SYSTEM UNS] Onset: 2 Chronic Other lower respiratory disease (1 source) Shortness of breath; 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: [SHORTNESS OF BREATH] Onset: 3 Episodic Other lower respiratory disease (10 sources) Cough; 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: [Cough] 11-08-2023 Episodic Other lower respiratory disease (2 sources) Iesdnqmiehu-lfzbwuzolz-r nzyme inhibitor adverse reaction; 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: [Cough due to angiotensin-converting enzyme inhibitor] 12-09-2023 Episodic Other nutritional; endocrine; and metabolic disorders (3 sources) Morbid obesity; 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: [Morbid (severe) obesity due to excess calories] Onset: 3 04-02-2023 Chronic Other nutritional; endocrine; and metabolic disorders (3 sources) Morbid (severe) obesity due to excess calories; 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: [Obesity, Class III, BMI 40-49.9 (morbid obesity) (HCC)] Onset: 7 Chronic Other nutritional; endocrine; and metabolic disorders (2 sources) Body mass index 30+ - obesity; 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: [Body mass index (BMI) 39.0-39.9, adult] Onset: 4 08-08-2023 Chronic Other nutritional; endocrine; and metabolic disorders (1 source) Obese class II; 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: [Obesity, unspecified] 08-08-2023 Chronic Other nutritional; endocrine; and metabolic disorders (2 sources) Body mass index (BMI) 39.0-39.9, adult; 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: [Body mass index (BMI) 39.0-39.9, adult] Onset: 4 Chronic Other nutritional; endocrine; and metabolic disorders (1 source) Hyperuricemia; 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: [Hyperuricemia without signs of inflammatory arthritis and tophaceous disease] 12-03-2023 Episodic Other nutritional; endocrine; and metabolic disorders (1 source) Hyperuricemia without signs of inflammatory arthritis and tophaceous disease; 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: [Other abnormal blood chemistry] 12-02-2023 Episodic Other upper respiratory infections (13 sources) Chronic sinusitis; 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: [Chronic sinusitis, unspecified] 09-02-2023 Chronic Residual codes; unclassified (1 source) Acquired [...] UTERUS] Onset: 3 Episodic Residual codes; unclassified (9 sources) History of cardiac catheterization; 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: [Other specified postprocedural states] 01-18-2023 Episodic Residual codes; unclassified (1 source) Other specified postprocedural states; 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: [Other postprocedural status] 01-18-2023 Episodic Superficial injury; contusion (10 sources) Contusion of left eyelid and periocular area, initial encounter; 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: [Periorbital ecchymosis of left eye] 09-09-2023 Episodic Syncope (10 sources) Tussive syncope; 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: [Syncope and collapse] 09-09-2023 Episodic Thyroid disorders (4 sources) Thyrotoxicosis, unspecified without thyrotoxic crisis or storm; 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: [Hypothyroidism, unspecified] Onset: 3 03-05-2024 Chronic Unclassified (1 source) CONTACT W/AND (SUSP) EXPOS COVID-19; 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: [CONTACT W/AND (SUSP) EXPOS COVID-19] Onset: 3 Unclassified (1 source) COUGH, UNSPECIFIED; 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: [COUGH, UNSPECIFIED] Onset: 3 Unclassified (1 source) Cough, unspecified; 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: [Cough, unspecified] Onset: 4 Past or Other Problems Problem Classification Problem Date Documented Da te Episodic/Chronic Coronary atherosclerosis and other heart disease (9 sources) Stented coronary artery; 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: [Presence of coronary angioplasty implant and graft] Onset: 04-02-2023 04-02-2023 Episodic Other nutritional; endocrine; and metabolic disorders (9 sources) Body mass index 40+ - severely obese; 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: [Morbid (severe) obesity due to excess calories] Onset: 07-17-2016 Resolved: 08-08-2023 07-17-2016 Chronic Other screening for suspected conditions (not mental disorders or infectious disease) (20 sources) Patient encounter status; 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: [Encounter for other screening for malignant neoplasm of breast] Onset: 04-03-2022 Episodic Residual codes; unclassified (4 sources) Family history of ischemic heart disease and other diseases of the circulatory system; 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: [FAM HX ISCHEMIC HRT DZ OTH DZ CIRC] Onset: 10-31-2021 Episodic Screening and history of mental health and substance abuse codes (13 sources) Personal history of nicotine dependence; 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: [Ex-smoker] Onset: 06-13-2022 05-06-2023 Episodic Unclassified (4 sources) Onset: 12-25-2022 Resolved: 08-08-2023 12-25-2022 Results Test Name Value Interpretation Reference Range Facility Basic Metabolic Panelon Anion gap [Moles/Vol] 12 mmol/L 9 - 16 mmol/L [facility] [employer] [facility] Calcium [Mass/Vol] 9.4 mg/dL 8.6 - 10. 4 mg/dL [facility] Chloride [Moles/Vol] 93 mmol/L Low 98 - 10 7 mmol/L [facility] CO2 [Moles/Vol] 30 mmol/L 20 - 31 mmol/L [facility] Creatinine [Mass/Vol] 1.1 mg/dL High 0.6 - 0.9 mg/dL [facility] [employer] Est, Glom Filt Rate 52 Low - PINF [facility] Comment on above: These results are not intended for use in patients <18 years of age. eGFR results are calculated without a race factor using the 2020 CKD-EPI equation. Careful clinical correlation is recommended, particularly when comparing to results calculated using previous equations. The CKD-EPI equation is less accurate in patients with extremes of muscle mass, extra-renal metabolism of creatine, excessive creatine ingestion, or following therapy that affects renal tubular secretion. Glucose [Mass/Vol] 120 mg/dL High 74 - 99 mg/dL [facility] Interpretation and review of laboratory results Abnormal [facility] [employer] [facility] Potassium [Moles/Vol] 3.7 mmol/L 3.7 - 5.3 mmol/L [facility] Sodium [Moles/Vol] 135 mmol/L Low 136 - 145 mmol/L [facility] [employer] [facility] Urea nitrogen [Mass/Vol] 12 mg/dL 8 - 23 mg/dL [facility] Basic Metabolic Profon 03-06 Anion gap [Moles/Vol] 12 mmol/L Normal 9-16 [facility] Comment on above: Performed By: #### B MP, CDP #### [facility] [place] [address] Efficiency Engineer: Kristian Garcia MD Calcium [Mass/Vol] 9.4 mg/dL Normal 8.6-10.4 [facility] Comment on above: Performed By: #### B MISA, CDP #### [address] [address] Efficiency Engineer: Kristian Garcia MD Chloride [Moles/Vol] 93 mmol/L Low 98-107 [facility] Comment on above: Performed By: #### B MISA, CDP #### [facility] [address] [place] [address] Efficiency Engineer: Kristian Garcia MD CO2 [Moles/Vol] 30 mmol/L Normal 20-31 [facility] Comment on above: Performed By: #### B MISA, CDP #### [facility] [employer] [address] [place] [address] Efficiency Engineer: Kristian Garcia MD Creatinine [Mass/Vol] 1.1 mg/dL High 0.6-0.9 [facility] Comment on above: Performed By: #### B MISA, CDP #### [address] [address] Efficiency Engineer: Kristian Garcia MD GFR/1.73 sq M.predicted among non-blacks MDRD (S/P/Bld) [Vol rate/Area] 52 mL/min/{1.73_m2} Low >60 [facility] Comment on above: Result Comment: These results are not intended for use in patients <18 years of age. eGFR results are calculated without a race factor using the 2020 CKD-EPI equation. Careful clinical correlation is recommended, particularly when comparing to results calculated using previous equations. The CKD-EPI equation is less accurate in patients with extremes of muscle mass, extra-renal metabolism of creatine, excessive creatine ingestion, or following therapy that affects renal tubular secretion. Performed By: #### B MISA, CDP #### [facility] [employer] [address] [place] [address] Efficiency Engineer: Kristian Garcia MD Glucose [Mass/Vol] 120 mg/dL High 74-99 [facility] Comment on above: Performed By: #### B MISA, CDP #### [facility] [address] [place] [address] Efficiency Engineer: Kristian Garcia MD Potassium [Moles/Vol] 3.7 mmol/L Normal 3.7-5.3 [facility] Comment on above: Performed By: #### B MISA, CDP #### [facility] [address] [place] [address] Efficiency Engineer: Kristian Garcia MD Sodium [Moles/Vol] 135 mmol/L Low 136-145 [facility] Comment on above: Performed By: #### B MISA, CDP #### [facility] [address] [place] [address] Efficiency Engineer: Kristian Garcia MD Urea nitrogen [Mass/Vol] 12 mg/dL Normal 8-23 [facility] Comment on above: Performed By: #### B MISA, CDP #### [facility] [address] [place] [address] Efficiency Engineer: Kristian Garcia MD CBC with Auto Differentialon 03-06-2024 Basophils (Bld) [#/Vol] 0.03 10*3/uL [facility] Basophils/100 WBC (Bld) 1 % 0 - 2 % [facility] Eosinophils (Bld) [#/Vol] 0.08 10*3/uL [facility] Eosinophils/100 WBC (Bld) 1 % 1 - 4 % [facility] Erythrocyte distribution width (RBC) [Ratio] 12.6 % 11.8 - 14.4 % [facility] Hematocrit (Bld) [Volume fraction] 43.7 % 36.3 - 47.1 % [facility] Hemoglobin (Bld) [Mass/Vol] 14.2 g/dL 11.9 - 15.1 g/dL [facility] Immature granulocytes (Bld) [#/Vol] [facility] Immature granulocytes/100 WBC (Bld) 0 % 0 [facility] Interpretation and review of laboratory results Abnormal [facility] Lymphocytes/100 WBC (Bld) 20 % Low 24 - 43 % [facility] Lymphocytes/100 WBC (Bld) 1.31 % [facility] MCH (RBC) [Entitic mass] 29.9 pg 25.2 - 33.5 pg [facility] MCHC (RBC) [Mass/Vol] 32.5 g/dL 28.4 - 34.8 g/dL [facility] MCV (RBC) [Entitic vol] 92.0 fL 82.6 - 102.9 fL [facility] Monocytes/100 WBC (Bld) 10 % 3 - 12 % [facility] Monocytes/100 WBC (Bld) 0.69 % [facility] Neutrophils/100 WBC (Bld) 68 % High 36 - 65 % [facility] Nucleated RBC/100 WBC (Bld) [Ratio] 0.0 % 0.0 per 100 WBC [facility] Platelet mean volume (Bld) [Entitic vol] 10.7 fL 8.1 - 13.5 fL [facility] Platelets (Bld) [#/Vol] 200 10*3/uL [facility] RBC (Bld) [#/Vol] 4.75 10*6/uL 3.95 - 5.11 m/uL [facility] Segmented neutrophils/100 WBC (Bld) 4.49 % [facility] WBC other (Bld) [#/Vol] 6.6 [facility] CBC with Diffon 03-06-2024 Abs. Basophil 0.03 k/uL Normal 0.00-0.20 [facility] Comment on above: Performed By: #### B MP, CDP #### [facility] [address] [place], [place] [id number] Efficiency Engineer: Kristian Garcia MD Abs.Imm.Granulocyte <0.03 Normal 0.00-0.30 [facility] Comment on above: Performed By: #### B MP, CDP #### [address] [address] Efficiency Engineer: Kristian Garcia MD Abs.Neutrophil (Seg) 4.49 k/uL Normal 1.50-8.10 [facility] Comment on above: Performed By: #### B MP, CDP #### [address] [address] Efficiency Engineer: Kristian Garcia MD Basophils/100 WBC (Bld) 1 % Normal 0-2 [facility] Comment on above: Performed By: #### B MP, CDP #### [address] [address] Efficiency Engineer: Kristian Garcia MD Eosinophils (Bld) [#/Vol] 0.08 10*3/uL Normal 0.00-0.44 [facility] Comment on above: Performed By: #### B MP, CDP #### [address] [address] Efficiency Engineer: Kristian Garcia MD Eosinophils/100 WBC (Bld) 1 % Normal 1-4 [facility] Comment on above: Performed By: #### B MP, CDP #### [address] [address] Efficiency Engineer: Kristian Garcia MD Erythrocyte distribution width (RBC) [Ratio] 12.6 % Normal 11.8-14.4 [facility] Comment on above: Performed By: #### B MP, CDP #### [place] [address] Efficiency Engineer: Kristian Garcia MD Hematocrit (Bld) [Volume fraction] 43.7 % Normal 36.3-47.1 [facility] Comment on above: Performed By: #### B MP, CDP #### [address] [address] Efficiency Engineer: Kristian Garcia MD Hemoglobin (Bld) [Mass/Vol] 14.2 g/dL Normal 11.9-15.1 [facility] Comment on above: Performed By: #### B MP, CDP #### [address] [address] Efficiency Engineer: Kristian Garcia MD Immature granulocytes/100 WBC (Bld) 0 % Normal 0 [facility] Comment on above: Performed By: #### B MP, CDP #### [address] [address] Efficiency Engineer: Kristian Garcia MD Lymphocytes (Bld) [#/Vol] 1.31 10*3/uL Normal 1.10-3.70 [facility] Comment on above: Performed By: #### B MP, CDP #### [address] [address] Efficiency Engineer: Kristian Garcia MD Lymphocytes/100 WBC (Bld) 20 % Low 24-43 [facility] Comment on above: Performed By: #### B MP, CDP #### [address] [address] Efficiency Engineer: Kristian Garcia MD MCH (RBC) [Entitic mass] 29.9 pg Normal 25.2-33.5 [facility] Comment on above: Performed By: #### B MP, CDP #### [address] [address] Efficiency Engineer: Kristian Garcia MD MCHC (RBC) [Mass/Vol] 32.5 g/dL Normal 28.4-34.8 [facility] Comment on above: Performed By: #### B MP, CDP #### [address] [address] Efficiency Engineer: Kristian Garcia MD MCV (RBC) [Entitic vol] 92.0 fL Normal 82.6-102.9 [facility] Comment on above: Performed By: #### B MP, CDP #### [address] [address] Efficiency Engineer: Kristian Garcia MD Monocytes (Bld) [#/Vol] 0.69 10*3/uL Normal 0.10-1.20 [facility] Comment on above: Performed By: #### B MP, CDP #### [address] [address] Efficiency Engineer: Kristian Garcia MD Monocytes/100 WBC (Bld) 10 % Normal 3-12 [facility] Comment on above: Performed By: #### B MP, CDP #### [place] [address] Efficiency Engineer: Kristian Garcia MD Neutrophil (Seg) 68 % High 36-65 [facility] Comment on above: Performed By: #### B MP, CDP #### [address] [address] Efficiency Engineer: Kristian Garcia MD NRBC Automated 0.0 per 100 WBC Normal 0.0 [facility] Comment on above: Performed By: #### B MP, CDP #### [address] [address] Efficiency Engineer: Kristian Garcia MD Platelet mean volume (Bld) [Entitic vol] 10.7 fL Normal 8.1-13.5 [facility] Comment on above: Performed By: #### B MP, CDP #### [address] [address] Efficiency Engineer: Kristian Garcia MD Platelets (Bld) [#/Vol] 200 10*3/uL Normal 138-453 [facility] Comment on above: Performed By: #### B MP, CDP #### [facility] [address] [place] [address] Efficiency Engineer: Kristian Garcia MD RBC (Bld) [#/Vol] 4.75 10*6/uL Normal 3.95-5.11 [facility] Comment on above: Performed By: #### B MP, CDP #### [facility] [address] [place] [address] Efficiency Engineer: Kristian Garcia MD WBC (Bld) [#/Vol] 6.6 10*3/uL Normal 3.5-11.3 [facility] Comment on above: Performed By: #### B MISA, CDP #### [facility] [address] [place] [address] Efficiency Engineer: Kristian Garcia MD Basic Metabolic Panelon 0 Anion gap [Moles/Vol] 13 mmol/L 9 - 16 mmol/L [facility] Calcium [Mass/Vol] 8.9 mg/dL 8.6 - 10. 4 mg/dL [facility] Chloride [Moles/Vol] 93 mmol/L Low 98 - 10 7 mmol/L [facility] CO2 [Moles/Vol] 26 mmol/L 20 - 31 mmol/L [facility] Creatinine [Mass/Vol] 1.1 mg/dL High 0.6 - 0.9 mg/dL [facility] Est, Glom Filt Rate 52 Low - PINF [facility] [employer] Comment on above: These results are not intended for use in patients <18 years of age. eGFR results are calculated without a race factor using the 2020 CKD-EPI equation. Careful clinical correlation is recommended, particularly when comparing to results calculated using previous equations. The CKD-EPI equation is less accurate in patients with extremes of muscle mass, extra-renal metabolism of creatine, excessive creatine ingestion, or following therapy that affects renal tubular secretion. Glucose [Mass/Vol] 104 mg/dL High 74 - 99 mg/dL [facility] Interpretation and review of laboratory results Abnormal [facility] Potassium [Moles/Vol] 3.3 mmol/L Low 3.7 - 5.3 mmol/L [facility] Comment on above: Specimen hemolysis h as exceeded the interference as defined by Bal. Value may be falsely increased. Suggest recollection if clinically indicated. Sodium [Moles/Vol] 132 mmol/L Low 136 - 145 mmol/L [facility] Urea nitrogen [Mass/Vol] 14 mg/dL 8 - 23 mg/dL [facility] Basic Metabolic Profon 03-05 Anion gap [Moles/Vol] 13 mmol/L Normal 9-16 [facility] Comment on above: Performed By: #### B MP, CDP, TSHX ####[facility] RoboticsLahjffuq[address] [place] [address] Lab Director: Kristian Garcia MD Performed By: #### B MP, CDP, TSHX #### [facility] [address] [place] [address] Efficiency Engineer: Kristian Garcia MD Calcium [Mass/Vol] 8.9 mg/dL Normal 8.6-10.4 [facility] Comment on above: Performed By: #### B MP, CDP, TSHX ####[facility] [address] [place] [address] Lab Director: Kristian Garcia MD Performed By: #### B MP, CDP, TSHX #### [facility] [address] [place] [address] Efficiency Engineer: Kristian Garcia MD Chloride [Moles/Vol] 93 mmol/L Low 98-107 [facility] Comment on above: Performed By: #### B MP, CDP, TSHX ####[facility] [address] [place] [address] Lab Director: Kristian Garcia MD Performed By: #### B MP, CDP, TSHX #### [facility] [place] [address] Efficiency Engineer: Kristian Garcia MD CO2 [Moles/Vol] 26 mmol/L Normal 20-31 [facility] Comment on above: Performed By: #### B TOBIAS BYNUM, TSHX ####[facility] [address] [place] [address] Lab Director: Kristian Garcia MD Performed By: #### B TOBIAS BYNUM, TSHX #### [facility] [address] [place] [address] Efficiency Engineer: Kristian Garcia MD Creatinine [Mass/Vol] 1.1 mg/dL High 0.6-0.9 [facility] Comment on above: Performed By: #### B TOBIAS BYNUM, TSHX ####[facility] [address] [place] [address] Lab Director: Kristian Garcia MD Performed By: #### B TOBIAS BYNUM, TSHX #### [address] [address] Efficiency Engineer: Kristian Garcia MD GFR/1.73 sq M.predicted among non-blacks MDRD (S/P/Bld) [Vol rate/Area] 52 mL/min/{1.73_m2} Low >60 [facility] Comment on above: Result Comment: These results are not intended for use in patients <18 years of age. eGFR results are calculated without a race factor using the 2020 CKD-EPI equation. Careful clinical correlation is recommended, particularly when comparing to results calculated using previous equations. The CKD-EPI equation is less accurate in patients with extremes of muscle mass, extra-renal metabolism of creatine, excessive creatine ingestion, or following therapy that affects renal tubular secretion. Performed By: #### B TOBIAS BYNUM, TSHX ####[facility] [address] [place] [address] Lab Director: Kristian Garcia MD Performed By: #### B TOBIAS BYNUM, TSHX #### [place] [address] [place] [address] Efficiency Engineer: Kristian Garcia MD Glucose [Mass/Vol] 104 mg/dL High 74-99 [facility] Comment on above: Performed By: #### B MP, CDP, TSHX ####[facility] [address] [place], [place] [phone] Director: Kristian Garcia MD Performed By: #### B MP, CDP, TSHX #### [facility] [place] [address] Efficiency Engineer: Kristian Garcia MD Potassium [Moles/Vol] 3.3 mmol/L Low 3.7-5.3 [facility] Comment on above: Result Comment: Spec imen hemolysis has exceeded the interference as defined by Bal. Value may be falsely increased. Suggest recollection if clinically indicated. Performed By: #### B MP, CDP, TSHX ####[facility] [address] [place] [address] [phone] Director: Kristian Garcia MD Performed By: #### B MP, CDP, TSHX #### [facility] [address] [place] [phone] Efficiency Engineer: Kristian Garcia MD Sodium [Moles/Vol] 132 mmol/L Low 136-145 [facility] Comment on above: Performed By: #### B MP, CDP, TSHX ####[facility] [address] [place] [address] [phone] Director: Kristian Garcia MD Performed By: #### B MP, CDP, TSHX #### [facility] [address] [place] [address] Efficiency Engineer: Kristian Garcia MD Urea nitrogen [Mass/Vol] 14 mg/dL Normal 8-23 [facility] Comment on above: Performed By: #### B MP, CDP, TSHX ####[facility] [address] [place] [address] [phone] Director: Kristian Garcia MD Performed By: #### B MP, CDP, TSHX #### [facility] [address] [place] [address] Efficiency Engineer: Kristian Garcia MD CBC with Auto Differentialon 03-05-2024 Basophils (Bld) [#/Vol] 0.03 10*3/uL [facility] Basophils/100 WBC (Bld) 1 % 0 - 2 % [facility] Eosinophils (Bld) [#/Vol] 0.17 10*3/uL [facility] Eosinophils/100 WBC (Bld) 3 % 1 - 4 % [facility] Erythrocyte distribution width (RBC) [Ratio] 12.8 % 11.8 - 14.4 % [facility] Hematocrit (Bld) [Volume fraction] 39.8 % 36.3 - 47.1 % [facility] Hemoglobin (Bld) [Mass/Vol] 12.7 g/dL 11.9 - 15.1 g/dL [facility] Immature granulocytes (Bld) [#/Vol] [facility] Immature granulocytes/100 WBC (Bld) 0 % 0 [facility] Lymphocytes/100 WBC (Bld) 30 % 24 - 43 % [facility] Lymphocytes/100 WBC (Bld) 1.99 % [facility] MCH (RBC) [Entitic mass] 30.2 pg 25.2 - 33.5 pg [facility] MCHC (RBC) [Mass/Vol] 31.9 g/dL 28.4 - 34.8 g/dL [facility] MCV (RBC) [Entitic vol] 94.5 fL 82.6 - 102.9 fL [facility] Monocytes/100 WBC (Bld) 12 % 3 - 12 % [facility] Monocytes/100 WBC (Bld) 0.78 % [facility] Neutrophils/100 WBC (Bld) 54 % 36 - 65 % [facility] Nucleated RBC/100 WBC (Bld) [Ratio] 0.0 % 0.0 per 100 WBC [facility] Platelet mean volume (Bld) [Entitic vol] 11.3 fL 8.1 - 13.5 fL [facility] Platelets (Bld) [#/Vol] 167 10*3/uL [facility] RBC (Bld) [#/Vol] 4.21 10*6/uL 3.95 - 5.11 m/uL [facility] Segmented neutrophils/100 WBC (Bld) 3.57 % [facility] WBC other (Bld) [#/Vol] 6.6 [facility] CBC with Diffon 03-05-2024 Abs. Basophil 0.03 k/uL Normal 0.00-0.20 [facility] Comment on above: Performed By: #### B MP, CDP, TSHX ####[place], [place] [address])[phone] Director: Kristian Garcia MD Performed By: #### B MP, CDP, TSHX #### [facility] [employer] [address] [place] [address] Efficiency Engineer: Kristian Garcia MD Abs.Imm.Granulocyte <0.03 Normal 0.00-0.30 [facility] Comment on above: Performed By: #### B MP, CDP, TSHX ####[address] [address] Lab Director: Kristian Garcia MD Performed By: #### B MP, CDP, TSHX #### [facility] [employer] [address] [place] [address] Efficiency Engineer: Kristian Garcia MD Abs.Neutrophil (Seg) 3.57 k/uL Normal 1.50-8.10 [facility] Comment on above: Performed By: #### B MP, CDP, TSHX ####[facility] [address] [place], [place] [address])[phone] Director: Kristian Garcia MD Performed By: #### B MP, CDP, TSHX #### [facility] [employer] [address] [place] [address] Efficiency Engineer: Kristian Garcia MD Basophils/100 WBC (Bld) 1 % Normal 0-2 [facility] Comment on above: Performed By: #### B MP, CDP, TSHX ####[facility] [address] [place] [address] [phone] Director: Kristian Garcia MD Performed By: #### B MP, CDP, TSHX #### [facility] [address] [place] [address] Efficiency Engineer: Kristian Garcia MD Eosinophils (Bld) [#/Vol] 0.17 10*3/uL Normal 0.00-0.44 [facility] Comment on above: Performed By: #### B MP, CDP, TSHX ####[address] [phone] Director: Kristian Garcia MD Performed By: #### B MP, CDP, TSHX #### [address] [address] Efficiency Engineer: Kristian Garcia MD Eosinophils/100 WBC (Bld) 3 % Normal 1-4 [facility] Comment on above: Performed By: #### B MP, CDP, TSHX ####[address] [phone] Director: Kristian Garcia MD Performed By: #### B MP, CDP, TSHX #### [facility] [address] [place] [address] Efficiency Engineer: Kristian Garcia MD Erythrocyte distribution width (RBC) [Ratio] 12.8 % Normal 11.8-14.4 [facility] Comment on above: Performed By: #### B MP, CDP, TSHX ####[facility] [address] [place] [address] Lab Director: Kristian Garcia MD Performed By: #### B MP, CDP, TSHX #### [facility] [employer] [facility] [place] [address] Efficiency Engineer: Kristian Garcia MD Hematocrit (Bld) [Volume fraction] 39.8 % Normal 36.3-47.1 [facility] Comment on above: Performed By: #### B MP, CDP, TSHX ####[facility] [address] [place] [address] Lab Director: Kristian Garcia MD Performed By: #### B MP, CDP, TSHX #### [facility] [address] [place] [address] Efficiency Engineer: Kristian Garcia MD Hemoglobin (Bld) [Mass/Vol] 12.7 g/dL Normal 11.9-15.1 [facility] Comment on above: Performed By: #### B MP, CDP, TSHX ####[facility] [address] [place] [address] Lab Director: Kristian Garcia MD Performed By: #### B MP, CDP, TSHX #### [address] [address] Efficiency Engineer: Kristian Garcia MD Immature granulocytes/100 WBC (Bld) 0 % Normal 0 [facility] Comment on above: Performed By: #### B MP, CDP, TSHX ####[facility] [address] [place] [address] Lab Director: Kristian Garcia MD Performed By: #### B MP, CDP, TSHX #### [facility] [address] [place] [address] Efficiency Engineer: Kristian Garcia MD Lymphocytes (Bld) [#/Vol] 1.99 10*3/uL Normal 1.10-3.70 [facility] Comment on above: Performed By: #### B MP, CDP, TSHX ####[facility] [address] [place] [address] Lab Director: Kristian Garcia MD Performed By: #### B MP, CDP, TSHX #### [facility] [address] [place] [address] Efficiency Engineer: Kristian Garcia MD Lymphocytes/100 WBC (Bld) 30 % Normal 24-43 [facility] Comment on above: Performed By: #### B MP, CDP, TSHX ####[facility] [address] [place] [address] Lab Director: Kristian Garcia MD Performed By: #### B MP, CDP, TSHX #### [place] [address] Efficiency Engineer: Kristian Garcia MD MCH (RBC) [Entitic mass] 30.2 pg Normal 25.2-33.5 [facility] Comment on above: Performed By: #### B MP, CDP, TSHX ####[facility] [address] [place] [address] Lab Director: Kristian Garcia MD Performed By: #### B MP, CDP, TSHX #### [facility] [employer] [address] [place] [address] Efficiency Engineer: Kristian Garcia MD MCHC (RBC) [Mass/Vol] 31.9 g/dL Normal 28.4-34.8 [facility] Comment on above: Performed By: #### B MP, CDP, TSHX ####[facility] [address] [place] [address] Lab Director: Kristian Garcia MD Performed By: #### B MP, CDP, TSHX #### [facility] [employer] [address] [place] [address] Efficiency Engineer: Kristian Garcia MD MCV (RBC) [Entitic vol] 94.5 fL Normal 82.6-102.9 [facility] Comment on above: Performed By: #### B MP, CDP, TSHX ####[facility] [address] [place] [address] Lab Director: Kristian Garcia MD Performed By: #### B MP, CDP, TSHX #### [facility] [place] [address] Efficiency Engineer: Kristian Garcia MD Monocytes (Bld) [#/Vol] 0.78 10*3/uL Normal 0.10-1.20 [facility] Comment on above: Performed By: #### B MP, CDP, TSHX ####[facility] [address] [place] [address] [phone] Director: Kristian Garcia MD Performed By: #### B MP, CDP, TSHX #### [address] [address] Efficiency Engineer: Kristian Garcia MD Monocytes/100 WBC (Bld) 12 % Normal 3-12 [facility] Comment on above: Performed By: #### B MP, CDP, TSHX ####[facility] [address] [place] [address] [phone] Director: Kristian Garcia MD Performed By: #### B MP, CDP, TSHX #### [address] [address] Efficiency Engineer: Kristian Garcia MD Neutrophil (Seg) 54 % Normal 36-65 [facility] Comment on above: Performed By: #### B MP, CDP, TSHX ####[facility] [address] [place] [address] [phone] Director: Kristian Garcia MD Performed By: #### B MP, CDP, TSHX #### [facility] [address] [place] [address] Efficiency Engineer: Kristian Garcia MD NRBC Automated 0.0 per 100 WBC Normal 0.0 [facility] Comment on above: Performed By: #### B MP, CDP, TSHX ####[facility] [address] [place] [address] Lab Director: Kristian Garcia MD Performed By: #### B MP, CDP, TSHX #### [facility] [address] [place] [address] Efficiency Engineer: Kristian Garcia MD Platelet mean volume (Bld) [Entitic vol] 11.3 fL Normal 8.1-13.5 [facility] Comment on above: Performed By: #### B MP, CDP, TSHX ####[facility] [address] [place] [address] Lab Director: Krisitan Garcia MD Performed By: #### B MP, CDP, TSHX #### [address] [address] Efficiency Engineer: Kristian Garcia MD Platelets (Bld) [#/Vol] 167 10*3/uL Normal 138-453 [facility] Comment on above: Performed By: #### B MP, CDP, TSHX ####[facility] [address] [place] [address] Lab Director: Kristian Garcia MD Performed By: #### B MP, CDP, TSHX #### [facility] [address] [place] [address] Efficiency Engineer: Kristian Garcia MD RBC (Bld) [#/Vol] 4.21 10*6/uL Normal 3.95-5.11 [facility] Comment on above: Performed By: #### B MP, CDP, TSHX ####[facility] [address] [place] [address] Lab Director: Kristian Garcia MD Performed By: #### B MP, CDP, TSHX #### [facility] [address] [place] [address] [phone] Efficiency Engineer: Kristian Garcia MD WBC (Bld) [#/Vol] 6.6 10*3/uL Normal 3.5-11.3 [facility] Comment on above: Performed By: #### B TOBIAS BYNUM, TSHX ####[facility] [address] [place], [place] [phone] Lab Director: Kristian Garcia MD Performed By: #### B TOBIAS BYNUM, TSHX #### [facility] [employer] [address] [place] [address] Efficiency Engineer: Kristian Garcia MD CT CHEST ABDOMEN PELVIS W CO NTRASTon 03-05-2024 CT CHEST ABDOMEN PELVIS W CONTRAST EXAMINATION: CT OF THE CHEST, ABDOMEN, AND PELVIS WITH CONTRAST; CT OF THE THORACIC SPINE WITHOUT CONTRAST; CT OF THE LUMBAR SPINE WITHOUT CONTRAST 03/03/2024 3:20 pm TECHNIQUE: CT of the chest, abdomen and pelvis was performed with the administration of intravenous contrast. Multiplanar reformatted images are provided for review. Automated exposure control, iterative reconstruction, and/or weight based adjustment of the mA/kV was utilized to reduce the radiation dose to as low as reasonably achievable.; CT of the thoracic spine was performed without the administration of intravenous contrast. Multiplanar reformatted images are provided for review. Automated exposure control, iterative reconstruction, and/or weight based adjustment of the mA/kV was utilized to reduce the radiation dose to as low as reasonably achievable.; CT of the lumbar spine was performed without the administration of intravenous contrast. Multiplanar reformatted images are provided for review. Adjustment of mA and/or kV according to patient size was utilized. Automated exposure control, iterative reconstruction, and/or weight based adjustment of the mA/kV was utilized to reduce the radiation dose to as low as reasonably achievable. COMPARISON: None HISTORY: ORDERING SYSTEM PROVIDED HISTORY: trauma TECHNOLOGIST PROVIDED HISTORY: trauma Reason for Exam: SAH (subarachnoid hemorrhage) (HCC) FINDINGS: Chest: Mediastinum: No acute aortic abnormality identified. Calcified coronary atheromatous plaque. No mediastinal hematoma. No pericardial effusion. Lungs/pleura: No acute airspace disease, pneumothorax or effusion. Findings consistent with scarring in the anterior right upper lobe and in the left lung base. Soft Tissues/Bones: No acute osseous abnormality identified in this region. No soft tissue hematoma. Surgical clips in the right axilla and findings compatible with fat necrosis in the medial right breast. Abdomen/Pelvis: Organs: No solid organ injury identified. No acute inflammatory process. Findings compatible with hepatic steatosis. Cholecystectomy. No suspicious renal lesion identified. GI/Bowel: There is no bowel dilatation or wall thickening identified. Diverticulosis. Pelvis: No acute findings. The bladder is well distended. Peritoneum/Retroperitoneu m: No free air. No free fluid. The aorta is normal in caliber. The visceral branches are patent. Bones/Soft Tissues: Pelvic alignment maintained. No fracture identified. No soft tissue hematoma. Partially visualized bilateral total hip arthroplasties. *Unless otherwise specified, incidental findings do not require dedicated imaging follow-up. Thoracic: BONES/ALIGNMENT: There is normal alignment of the spine. The vertebral body heights are maintained. No osseous destructive lesion is seen. DEGENERATIVE CHANGES: No gross spinal canal stenosis or bony neural foraminal narrowing of the thoracic spine. Lumbar: BONES/ALIGNMENT: There is normal alignment of the spine. The vertebral body heights are maintained. No osseous destructive lesion is seen. DEGENERATIVE CHANGES: No gross spinal canal stenosis or bony neural foraminal narrowing of the lumbar spine. * Please note that the spinal canal contents are not adequately assessed on this exam. If further evaluation of the spinal canal, spinal cord or nerve roots is necessary, MRI is recommended. IMPRESSION: 1. No acute traumatic injury identified in the chest, abdomen or pelvis. 2. No acute osseous abnormality identified in the thoracic or lumbar spine. 3. Chronic findings, as described. Interpreted by: Gómez Valencia MD Signed by: Gómez Valencia MD 03/05/24 Final result Normal [facility] CT LUMBAR SPINE BONY RECONST RUCTIONon 03-05-2024 CT LUMBAR SPINE BONY RECONSTRUCTION EXAMINATION: CT OF THE CHEST, ABDOMEN, AND PELVIS WITH CONTRAST; CT OF THE THORACIC SPINE WITHOUT CONTRAST; CT OF THE LUMBAR SPINE WITHOUT CONTRAST 03/03/2024 3:20 pm TECHNIQUE: CT of the chest, abdomen and pelvis was performed with the administration of intravenous contrast. Multiplanar reformatted images are provided for review. Automated exposure control, iterative reconstruction, and/or weight based adjustment of the mA/kV was utilized to reduce the radiation dose to as low as reasonably achievable.; CT of the thoracic spine was performed without the administration of intravenous contrast. Multiplanar reformatted images are provided for review. Automated exposure control, iterative reconstruction, and/or weight based adjustment of the mA/kV was utilized to reduce the radiation dose to as low as reasonably achievable.; CT of the lumbar spine was performed without the administration of intravenous contrast. Multiplanar reformatted images are provided for review. Adjustment of mA and/or kV according to patient size was utilized. Automated exposure control, iterative reconstruction, and/or weight based adjustment of the mA/kV was utilized to reduce the radiation dose to as low as reasonably achievable. COMPARISON: None HISTORY: ORDERING SYSTEM PROVIDED HISTORY: trauma TECHNOLOGIST PROVIDED HISTORY: trauma Reason for Exam: SAH (subarachnoid hemorrhage) (HCC) FINDINGS: Chest: Mediastinum: No acute aortic abnormality identified. Calcified coronary atheromatous plaque. No mediastinal hematoma. No pericardial effusion. Lungs/pleura: No acute airspace disease, pneumothorax or effusion. Findings consistent with scarring in the anterior right upper lobe and in the left lung base. Soft Tissues/Bones: No acute osseous abnormality identified in this region. No soft tissue hematoma. Surgical clips in the right axilla and findings compatible with fat necrosis in the medial right breast. Abdomen/Pelvis: Organs: No solid organ injury identified. No acute inflammatory process. Findings compatible with hepatic steatosis. Cholecystectomy. No suspicious renal lesion identified. GI/Bowel: There is no bowel dilatation or wall thickening identified. Diverticulosis. Pelvis: No acute findings. The bladder is well distended. Peritoneum/Retroperitoneu m: No free air. No free fluid. The aorta is normal in caliber. The visceral branches are patent. Bones/Soft Tissues: Pelvic alignment maintained. No fracture identified. No soft tissue hematoma. Partially visualized bilateral total hip arthroplasties. *Unless otherwise specified, incidental findings do not require dedicated imaging follow-up. Thoracic: BONES/ALIGNMENT: There is normal alignment of the spine. The vertebral body heights are maintained. No osseous destructive lesion is seen. DEGENERATIVE CHANGES: No gross spinal canal stenosis or bony neural foraminal narrowing of the thoracic spine. Lumbar: BONES/ALIGNMENT: There is normal alignment of the spine. The vertebral body heights are maintained. No osseous destructive lesion is seen. DEGENERATIVE CHANGES: No gross spinal canal stenosis or bony neural foraminal narrowing of the lumbar spine. * Please note that the spinal canal contents are not adequately assessed on this exam. If further evaluation of the spinal canal, spinal cord or nerve roots is necessary, MRI is recommended. IMPRESSION: 1. No acute traumatic injury identified in the chest, abdomen or pelvis. 2. No acute osseous abnormality identified in the thoracic or lumbar spine. 3. Chronic findings, as described. Interpreted by: Gómez Valencia MD Signed by: Gómez Valencia MD 03/05/24 Final result Normal [facility] CT THORACIC SPINE BONY RECON STRUCTIONon 03-05-2024 CT THORACIC SPINE BONY RECONSTRUCTION EXAMINATION: CT OF THE CHEST, ABDOMEN, AND PELVIS WITH CONTRAST; CT OF THE THORACIC SPINE WITHOUT CONTRAST; CT OF THE LUMBAR SPINE WITHOUT CONTRAST 03/03/2024 3:20 pm TECHNIQUE: CT of the chest, abdomen and pelvis was performed with the administration of intravenous contrast. Multiplanar reformatted images are provided for review. Automated exposure control, iterative reconstruction, and/or weight based adjustment of the mA/kV was utilized to reduce the radiation dose to as low as reasonably achievable.; CT of the thoracic spine was performed without the administration of intravenous contrast. Multiplanar reformatted images are provided for review. Automated exposure control, iterative reconstruction, and/or weight based adjustment of the mA/kV was utilized to reduce the radiation dose to as low as reasonably achievable.; CT of the lumbar spine was performed without the administration of intravenous contrast. Multiplanar reformatted images are provided for review. Adjustment of mA and/or kV according to patient size was utilized. Automated exposure control, iterative reconstruction, and/or weight based adjustment of the mA/kV was utilized to reduce the radiation dose to as low as reasonably achievable. COMPARISON: None HISTORY: ORDERING SYSTEM PROVIDED HISTORY: trauma TECHNOLOGIST PROVIDED HISTORY: trauma Reason for Exam: SAH (subarachnoid hemorrhage) (HCC) FINDINGS: Chest: Mediastinum: No acute aortic abnormality identified. Calcified coronary atheromatous plaque. No mediastinal hematoma. No pericardial effusion. Lungs/pleura: No acute airspace disease, pneumothorax or effusion. Findings consistent with scarring in the anterior right upper lobe and in the left lung base. Soft Tissues/Bones: No acute osseous abnormality identified in this region. No soft tissue hematoma. Surgical clips in the right axilla and findings compatible with fat necrosis in the medial right breast. Abdomen/Pelvis: Organs: No solid organ injury identified. No acute inflammatory process. Findings compatible with hepatic steatosis. Cholecystectomy. No suspicious renal lesion identified. GI/Bowel: There is no bowel dilatation or wall thickening identified. Diverticulosis. Pelvis: No acute findings. The bladder is well distended. Peritoneum/Retroperitoneu m: No free air. No free fluid. The aorta is normal in caliber. The visceral branches are patent. Bones/Soft Tissues: Pelvic alignment maintained. No fracture identified. No soft tissue hematoma. Partially visualized bilateral total hip arthroplasties. *Unless otherwise specified, incidental findings do not require dedicated imaging follow-up. Thoracic: BONES/ALIGNMENT: There is normal alignment of the spine. The vertebral body heights are maintained. No osseous destructive lesion is seen. DEGENERATIVE CHANGES: No gross spinal canal stenosis or bony neural foraminal narrowing of the thoracic spine. Lumbar: BONES/ALIGNMENT: There is normal alignment of the spine. The vertebral body heights are maintained. No osseous destructive lesion is seen. DEGENERATIVE CHANGES: No gross spinal canal stenosis or bony neural foraminal narrowing of the lumbar spine. * Please note that the spinal canal contents are not adequately assessed on this exam. If further evaluation of the spinal canal, spinal cord or nerve roots is necessary, MRI is recommended. IMPRESSION: 1. No acute traumatic injury identified in the chest, abdomen or pelvis. 2. No acute osseous abnormality identified in the thoracic or lumbar spine. 3. Chronic findings, as described. Interpreted by: Gómez Valencia MD Signed by: Gómez Valencia MD 03/05/24 Final result Normal [facility] No Panel Informationon 03-05 1. No acute traumati c injury identified in the chest, abdomen or pelvis. 2. No acute osseous abnormality identified in the thoracic or lumbar spine. 3. Chronic findings, as described. [facility] RIS CONSOLIDATED EXAMINATION: CT OF THE CHEST, ABDOMEN, AND PELVIS WITH CONTRAST; CT OF THE THORACIC SPINE WITHOUT CONTRAST; CT OF THE LUMBAR SPINE WITHOUT CONTRAST 03/03/2024 3:20 pm TECHNIQUE: CT of the chest, abdomen and pelvis was performed with the administration of intravenous contrast. Multiplanar reformatted images are provided for review. Automated exposure control, iterative reconstruction, and/or weight based adjustment of the mA/kV was utilized to reduce the radiation dose to as low as reasonably achievable.; CT of the thoracic spine was performed without the administration of intravenous contrast. Multiplanar reformatted images are provided for review. Automated exposure control, iterative reconstruction, and/or weight based adjustment of the mA/kV was utilized to reduce the radiation dose to as low as reasonably achievable.; CT of the lumbar spine was performed without the administration of intravenous contrast. Multiplanar reformatted images are provided for review. Adjustment of mA and/or kV according to patient size was utilized. Automated exposure control, iterative reconstruction, and/or weight based adjustment of the mA/kV was utilized to reduce the radiation dose to as low as reasonably achievable. COMPARISON: None HISTORY: ORDERING SYSTEM PROVIDED HISTORY: trauma TECHNOLOGIST PROVIDED HISTORY: trauma Reason for Exam: SAH (subarachnoid hemorrhage) (HCC) FINDINGS: Chest: Mediastinum: No acute aortic abnormality identified. Calcified coronary atheromatous plaque. No mediastinal hematoma. No pericardial effusion. Lungs/pleura: No acute airspace disease, pneumothorax or effusion. Findings consistent with scarring in the anterior right upper lobe and in the left lung base. Soft Tissues/Bones: No acute osseous abnormality identified in this region. No soft tissue hematoma. Surgical clips in the right axilla and findings compatible with fat necrosis in the medial right breast. Abdomen/Pelvis: Organs: No solid organ injury identified. No acute inflammatory process. Findings compatible with hepatic steatosis. Cholecystectomy. No suspicious renal lesion identified. GI/Bowel: There is no bowel dilatation or wall thickening identified. Diverticulosis. Pelvis: No acute findings. The bladder is well distended. Peritoneum/Retroperitoneu m: No free air. No free fluid. The aorta is normal in caliber. The visceral branches are patent. Bones/Soft Tissues: Pelvic alignment maintained. No fracture identified. No soft tissue hematoma. Partially visualized bilateral total hip arthroplasties. *Unless otherwise specified, incidental findings do not require dedicated imaging follow-up. Thoracic: BONES/ALIGNMENT: There is normal alignment of the spine. The vertebral body heights are maintained. No osseous destructive lesion is seen. DEGENERATIVE CHANGES: No gross spinal canal stenosis or bony neural foraminal narrowing of the thoracic spine. Lumbar: BONES/ALIGNMENT: There is normal alignment of the spine. The vertebral body heights are maintained. No osseous destructive lesion is seen. DEGENERATIVE CHANGES: No gross spinal canal stenosis or bony neural foraminal narrowing of the lumbar spine. * Please note that the spinal canal contents are not adequately assessed on this exam. If further evaluation of the spinal canal, spinal cord or nerve roots is necessary, MRI is recommended. [facility] RIS CONSOLIDATED Gómez Valencia MD - 03/05/2024 EXAMINATION: CT OF THE CHEST, ABDOMEN, AND PELVIS WITH CONTRAST; CT OF THE THORACIC SPINE WITHOUT CONTRAST; CT OF THE LUMBAR SPINE WITHOUT CONTRAST 03/03/2024 3:20 pm TECHNIQUE: CT of the chest, abdomen and pelvis was performed with the administration of intravenous contrast. Multiplanar reformatted images are provided for review. Automated exposure control, iterative reconstruction, and/or weight based adjustment of the mA/kV was utilized to reduce the radiation dose to as low as reasonably achievable.; CT of the thoracic spine was performed without the administration of intravenous contrast. Multiplanar reformatted images are provided for review. Automated exposure control, iterative reconstruction, and/or weight based adjustment of the mA/kV was utilized to reduce the radiation dose to as low as reasonably achievable.; CT of the lumbar spine was performed without the administration of intravenous contrast. Multiplanar reformatted images are provided for review. Adjustment of mA and/or kV according to patient size was utilized. Automated exposure control, iterative reconstruction, and/or weight based adjustment of the mA/kV was utilized to reduce the radiation dose to as low as reasonably achievable. COMPARISON: None HISTORY: ORDERING SYSTEM PROVIDED HISTORY: trauma TECHNOLOGIST PROVIDED HISTORY: trauma Reason for Exam: SAH (subarachnoid hemorrhage) (HCC) FINDINGS: Chest: Mediastinum: No acute aortic abnormality identified. Calcified coronary atheromatous plaque. No mediastinal hematoma. No pericardial effusion. Lungs/pleura: No acute airspace disease, pneumothorax or effusion. Findings consistent with scarring in the anterior right upper lobe and in the left lung base. Soft Tissues/Bones: No acute osseous abnormality identified in this region. No soft tissue hematoma. Surgical clips in the right axilla and findings compatible with fat necrosis in the medial right breast. Abdomen/Pelvis: Organs: No solid organ injury identified. No acute inflammatory process. Findings compatible with hepatic steatosis. Cholecystectomy. No suspicious renal lesion identified. GI/Bowel: There is no bowel dilatation or wall thickening identified. Diverticulosis. Pelvis: No acute findings. The bladder is well distended. Peritoneum/Retroperitoneu m: No free air. No free fluid. The aorta is normal in caliber. The visceral branches are patent. Bones/Soft Tissues: Pelvic alignment maintained. No fracture identified. No soft tissue hematoma. Partially visualized bilateral total hip arthroplasties. *Unless otherwise specified, incidental findings do not require dedicated imaging follow-up. Thoracic: BONES/ALIGNMENT: There is normal alignment of the spine. The vertebral body heights are maintained. No osseous destructive lesion is seen. DEGENERATIVE CHANGES: No gross spinal canal stenosis or bony neural foraminal narrowing of the thoracic spine. Lumbar: BONES/ALIGNMENT: There is normal alignment of the spine. The vertebral body heights are maintained. No osseous destructive lesion is seen. DEGENERATIVE CHANGES: No gross spinal canal stenosis or bony neural foraminal narrowing of the lumbar spine. * Please note that the spinal canal contents are not adequately assessed on this exam. If further evaluation of the spinal canal, spinal cord or nerve roots is necessary, MRI is recommended. IMPRESSION: 1. No acute traumatic injury identified in the chest, abdomen or pelvis. 2. No acute osseous abnormality identified in the thoracic or lumbar spine. 3. Chronic findings, as described. [facility] No Panel InformationOrdered By: Gómez Valencia on 03-05-2024 [facility] Work Phone: TSH reflex to FT4on 03-05-19 25 TSH Qn 1.70 m[IU]/L [facility] TSH w/reflex to FT4on 2024 Thyroid Stim. Horm. 1.70 uIU/mL Normal 0.27-4.20 [facility] Comment on above: Performed By: #### B TOBIAS BYNUM, TSHX ####[id number] [place] [address] Lab Director: Kristian Garcia MD Performed By: #### B TOBIAS BYNUM, TSHX #### [address] [place] [address] Efficiency Engineer: Kristian Garcia MD Basic Metabolic Panelon Anion gap [Moles/Vol] 10 mmol/L 9 - 16 mmol/L [facility] Calcium [Mass/Vol] 8.4 mg/dL Low 8.6 - 10. 4 mg/dL [facility] Chloride [Moles/Vol] 99 mmol/L 98 - 10 7 mmol/L [facility] CO2 [Moles/Vol] 28 mmol/L 20 - 31 mmol/L [facility] Creatinine [Mass/Vol] 0.9 mg/dL 0.6 - 0.9 mg/dL [facility] Glom Filt Rate 66 - PINF [facility] Comment on above: These results are not intended for use in patients <18 years of age. eGFR results are calculated without a race factor using the 2020 CKD-EPI equation. Careful clinical correlation is recommended, particularly when comparing to results calculated using previous equations. The CKD-EPI equation is less accurate in patients with extremes of muscle mass, extra-renal metabolism of creatine, excessive creatine ingestion, or following therapy that affects renal tubular secretion. Glucose [Mass/Vol] 106 mg/dL High 74 - 99 mg/dL [facility] Interpretation and review of laboratory results Abnormal [facility] Potassium [Moles/Vol] 3.0 mmol/L Low 3.7 - 5.3 mmol/L [facility] Sodium [Moles/Vol] 137 mmol/L 136 - 145 mmol/L [facility] Urea nitrogen [Mass/Vol] 11 mg/dL 8 - 23 mg/dL [facility] Anion gap [Moles/Vol] 11 mmol/L 9 - 16 mmol/L [facility] Calcium [Mass/Vol] 8.4 mg/dL Low 8.6 - 10. 4 mg/dL [facility] Chloride [Moles/Vol] 99 mmol/L 98 - 10 7 mmol/L [facility] CO2 [Moles/Vol] 26 mmol/L 20 - 31 mmol/L [facility] Creatinine [Mass/Vol] 0.9 mg/dL 0.6 - 0.9 mg/dL [facility] Est, Glom Filt Rate 66 - PINF [facility] [place] [facility] Comment on above: These results are not intended for use in patients <18 years of age. eGFR results are calculated without a race factor using the 2020 CKD-EPI equation. Careful clinical correlation is recommended, particularly when comparing to results calculated using previous equations. The CKD-EPI equation is less accurate in patients with extremes of muscle mass, extra-renal metabolism of creatine, excessive creatine ingestion, or following therapy that affects renal tubular secretion. Glucose [Mass/Vol] 110 mg/dL High 74 - 99 mg/dL [facility] Interpretation and review of laboratory results Abnormal [facility] Potassium [Moles/Vol] 2.9 mmol/L Critically low 3.7 - 5.3 mmol/L [facility] Comment on above: Specimen hemolysis h as exceeded the interference as defined by Bal. Value may be falsely increased. Suggest recollection if clinically indicated. Sodium [Moles/Vol] 136 mmol/L 136 - 145 mmol/L [facility] Urea nitrogen [Mass/Vol] 11 mg/dL 8 - 23 mg/dL [facility] Basic Metabolic Profon 03-04 Anion gap [Moles/Vol] 10 mmol/L Normal 9-16 [facility] Comment on above: Performed By: #### P HO, MG, BMP #### [address] [place] [address] Efficiency Engineer: Kristian Garcia MD Performed By: #### P HO, BMP, MG ####[address] [place] [address] Lab Director: Kristian Garcia MD Calcium [Mass/Vol] 8.4 mg/dL Low 8.6-10.4 [facility] Comment on above: Performed By: #### P HO, MG, BMP #### [address] [place] [address] Efficiency Engineer: Kristian Garcia MD Performed By: #### P HO, BMP, MG ####[address] [place] [address] Lab Director: Kristian Garcia MD Chloride [Moles/Vol] 99 mmol/L Normal 98-107 [facility] Comment on above: Performed By: #### P HO, MG, BMP #### [address] [place] [address] Efficiency Engineer: Kristian Garcia MD Performed By: #### P HO, BMP, MG ####[facility] [id number] [place] [address] Lab Director: Kristian Garcia MD CO2 [Moles/Vol] 28 mmol/L Normal 20-31 [facility] Comment on above: Performed By: #### P HO, MG, BMP #### [facility] [address] [place] [address] Efficiency Engineer: Kristian Garcia MD Performed By: #### P HO, BMP, MG ####[facility] [id number] [place] [address] Lab Director: Kristian Garcia MD Creatinine [Mass/Vol] 0.9 mg/dL Normal 0.6-0.9 [facility] Comment on above: Performed By: #### P HO, MG, BMP #### [facility] [address] [place] [address] Efficiency Engineer: Kristian Garcia MD Performed By: #### P HO, BMP, MG ####[facility] [id number] [place] [address] Lab Director: Kristian Garcia MD GFR/1.73 sq M.predicted among non-blacks MDRD (S/P/Bld) [Vol rate/Area] 66 mL/min/{1.73_m2} Normal >60 [facility] Comment on above: Result Comment: These results are not intended for use in patients <18 years of age. eGFR results are calculated without a race factor using the 2020 CKD-EPI equation. Careful clinical correlation is recommended, particularly when comparing to results calculated using previous equations. The CKD-EPI equation is less accurate in patients with extremes of muscle mass, extra-renal metabolism of creatine, excessive creatine ingestion, or following therapy that affects renal tubular secretion. Performed By: #### P HO, MG, BMP #### [facility] [address] [place] [address] Efficiency Engineer: Kristian Garcia MD Performed By: #### P HO, BMP, MG ####[facility] [id number] [place] [address] Lab Director: Kristian Garcia MD Glucose [Mass/Vol] 106 mg/dL High 74-99 [facility] Comment on above: Performed By: #### P HO, MG, BMP #### [facility] [address] [place] [address] Efficiency Engineer: Kristian Garcia MD Performed By: #### P HO, BMP, MG ####[facility] [address] [place] [address] Lab Director: Kristian Garcia MD Potassium [Moles/Vol] 3.0 mmol/L Low 3.7-5.3 [facility] Comment on above: Performed By: #### P HO, MG, BMP #### [facility] [address] [place] [address] Efficiency Engineer: Kristian Garcia MD Performed By: #### P HO, BMP, MG ####[facility] [address] [place] [address] Lab Director: Kristian Garcia MD Sodium [Moles/Vol] 137 mmol/L Normal 136-145 [facility] Comment on above: Performed By: #### P HO, MG, BMP #### [facility] [employer] [address] [place] [address] Efficiency Engineer: Kristian Garcia MD Performed By: #### P HO, BMP, MG ####[facility] [address] [place] [address] Lab Director: Kristian Garcia MD Urea nitrogen [Mass/Vol] 11 mg/dL Normal 8-23 [facility] Comment on above: Performed By: #### P HO, MG, BMP #### [facility] [address] [place] [address] Efficiency Engineer: Kristian Garcia MD Performed By: #### P HO, BMP, MG ####[facility] [address] [place] [address] Lab Director: Kristian Garcia MD Anion gap [Moles/Vol] 11 mmol/L Normal 9-16 [facility] Comment on above: Performed By: #### B MP, CDP #### [address] [address] Efficiency Engineer: Kristian Garcia MD Performed By: #### C DP, BMP #### [facility] [address] [place] [address] Efficiency Engineer: Kristian Garcia MD Calcium [Mass/Vol] 8.4 mg/dL Low 8.6-10.4 [facility] Comment on above: Performed By: #### B MP, CDP #### [facility] [employer] [address] [place] [address] Efficiency Engineer: Kristian Garcia MD Performed By: #### C DP, BMP #### [facility] [address] [place] [address] Efficiency Engineer: Kristian Garcia MD Chloride [Moles/Vol] 99 mmol/L Normal 98-107 [facility] Comment on above: Performed By: #### B MP, CDP #### [facility] [employer] [address] [place] [address] Efficiency Engineer: Kristian Garcia MD Performed By: #### C DP, BMP #### [facility] [address] [place] [address] Efficiency Engineer: Kristian Garcia MD CO2 [Moles/Vol] 26 mmol/L Normal 20-31 [facility] Comment on above: Performed By: #### B MP, CDP #### [facility] [address] [place] [address] Efficiency Engineer: Kristian Garcia MD Performed By: #### C DP, BMP #### [address] [address] Efficiency Engineer: Kristian Garcia MD Creatinine [Mass/Vol] 0.9 mg/dL Normal 0.6-0.9 [facility] Comment on above: Performed By: #### B MP, CDP #### [address] [address] Efficiency Engineer: Kristian Garcia MD Performed By: #### C DP, BMP #### [address] [address] Efficiency Engineer: Kristian Garcia MD GFR/1.73 sq M.predicted among non-blacks MDRD (S/P/Bld) [Vol rate/Area] 66 mL/min/{1.73_m2} Normal >60 [facility] Comment on above: Result Comment: These results are not intended for use in patients <18 years of age. eGFR results are calculated without a race factor using the 2020 CKD-EPI equation. Careful clinical correlation is recommended, particularly when comparing to results calculated using previous equations. The CKD-EPI equation is less accurate in patients with extremes of muscle mass, extra-renal metabolism of creatine, excessive creatine ingestion, or following therapy that affects renal tubular secretion. Performed By: #### B MISA, CDP #### [address] [address] Efficiency Engineer: Kristian Garcia MD Performed By: #### C DP, BMP #### [address] [address] Efficiency Engineer: Kristian Garcia MD Glucose [Mass/Vol] 110 mg/dL High 74-99 [facility] Comment on above: Performed By: #### B MP, CDP #### [address] [address] Efficiency Engineer: Kristian Garcia MD Performed By: #### C DP, BMP #### [address] [address] Efficiency Engineer: Kristian Garcia MD Potassium [Moles/Vol] 2.9 mmol/L Critically low 3.7-5.3 [facility] Comment on above: Result Comment: Spec imen hemolysis has exceeded the interference as defined by Bal. Value may be falsely increased. Suggest recollection if clinically indicated. Performed By: #### B MP, CDP #### [facility] [address] [place] [address] Efficiency Engineer: Kristian Garcia MD Performed By: #### C DP, BMP #### [address] [place] [address] Efficiency Engineer: Kristian Garcia MD Sodium [Moles/Vol] 136 mmol/L Normal 136-145 [facility] Comment on above: Performed By: #### B MP, CDP #### [facility] [address] [place] [address] Efficiency Engineer: Kristian Garcia MD Performed By: #### C DP, BMP #### [facility] [address] [place] [address] Efficiency Engineer: Kristian Garcia MD Urea nitrogen [Mass/Vol] 11 mg/dL Normal 8-23 [facility] Comment on above: Performed By: #### B MP, CDP #### [facility] [address] [place] [address] Efficiency Engineer: Kristian Garcia MD Performed By: #### C DP, BMP #### [facility] [address] [place] [address] Efficiency Engineer: Kristian Garcia MD CBC with Auto Differentialon 03-04-2024 Basophils (Bld) [#/Vol] 0.03 10*3/uL [facility] Basophils/100 WBC (Bld) 1 % 0 - 2 % [facility] Eosinophils (Bld) [#/Vol] 0.09 10*3/uL [facility] Eosinophils/100 WBC (Bld) 2 % 1 - 4 % [facility] Erythrocyte distribution width (RBC) [Ratio] 13.3 % 11.8 - 14.4 % [facility] Hematocrit (Bld) [Volume fraction] 40.4 % 36.3 - 47.1 % [facility] Hemoglobin (Bld) [Mass/Vol] 12.6 g/dL 11.9 - 15.1 g/dL [facility] Immature granulocytes (Bld) [#/Vol] [facility] Immature granulocytes/100 WBC (Bld) 0 % 0 [facility] Interpretation and review of laboratory results Abnormal [facility] Lymphocytes/100 WBC (Bld) 24 % 24 - 43 % [facility] Lymphocytes/100 WBC (Bld) 1.43 % [facility] MCH (RBC) [Entitic mass] 29.9 pg 25.2 - 33.5 pg [facility] MCHC (RBC) [Mass/Vol] 31.2 g/dL 28.4 - 34.8 g/dL [facility] MCV (RBC) [Entitic vol] 95.7 fL 82.6 - 102.9 fL [facility] Monocytes/100 WBC (Bld) 17 % High 3 - 12 % [facility] Monocytes/100 WBC (Bld) 1.02 % [facility] Neutrophils/100 WBC (Bld) 57 % 36 - 65 % [facility] Nucleated RBC/100 WBC (Bld) [Ratio] 0.0 % 0.0 per 100 WBC [facility] Platelet, Fluorescence [address] [facility] Platelets (Bld) [#/Vol] See Reflexed IPF Result [facility] Platelets reticulated/100 platelets Auto (Bld) 3.9 % 1.1 - 10.3 % [facility] RBC (Bld) [#/Vol] 4.22 10*6/uL 3.95 - 5.11 m/uL [facility] Segmented neutrophils/100 WBC (Bld) 3.40 % [facility] WBC other (Bld) [#/Vol] 6.0 [facility] CBC with Diffon 03-04-2024 Abs. Basophil 0.03 k/uL Normal 0.00-0.20 [facility] Comment on above: Performed By: #### B MP, CDP #### [address] [address] Efficiency Engineer: Kristian Garcia MD Performed By: #### C DP, BMP #### [address] [address] Efficiency Engineer: Kristian Garcia MD Abs.Imm.Granulocyte <0.03 Normal 0.00-0.30 [facility] Comment on above: Performed By: #### B MP, CDP #### [address] [address] Efficiency Engineer: Kristian Garcia MD Performed By: #### C DP, BMP #### [place] [address] Efficiency Engineer: Kristian Garcia MD Abs.Neutrophil (Seg) 3.40 k/uL Normal 1.50-8.10 [facility] Comment on above: Performed By: #### B MP, CDP #### [address] [address] Efficiency Engineer: Kristian Garcia MD Performed By: #### C DP, BMP #### [address] [address] Efficiency Engineer: Kristian Garcia MD Basophils/100 WBC (Bld) 1 % Normal 0-2 [facility] Comment on above: Performed By: #### B MP, CDP #### [address] [address] Efficiency Engineer: Kristian Garcia MD Performed By: #### C DP, BMP #### [address] [address] Efficiency Engineer: Kristian Garcia MD Eosinophils (Bld) [#/Vol] 0.09 10*3/uL Normal 0.00-0.44 [facility] Comment on above: Performed By: #### B MP, CDP #### [address] [address] Efficiency Engineer: Kristian Garcia MD Performed By: #### C DP, BMP #### [address] [address] Efficiency Engineer: Kristian Garcia MD Eosinophils/100 WBC (Bld) 2 % Normal 1-4 [facility] Comment on above: Performed By: #### B MP, CDP #### [address] [address] Efficiency Engineer: Kristian Garcia MD Performed By: #### C DP, BMP #### [address] [address] Efficiency Engineer: Kristian Garcia MD Erythrocyte distribution width (RBC) [Ratio] 13.3 % Normal 11.8-14.4 [facility] Comment on above: Performed By: #### B MP, CDP #### [address] [address] Efficiency Engineer: Kristian Garcia MD Performed By: #### C DP, BMP #### [address] [address] Efficiency Engineer: Kristian Garcia MD Hematocrit (Bld) [Volume fraction] 40.4 % Normal 36.3-47.1 [facility] Comment on above: Performed By: #### B MP, CDP #### [address] [address] Efficiency Engineer: Kristian Garcia MD Performed By: #### C DP, BMP #### [address] [address] Efficiency Engineer: Kristian Garcia MD Hemoglobin (Bld) [Mass/Vol] 12.6 g/dL Normal 11.9-15.1 [facility] Comment on above: Performed By: #### B MP, CDP #### [address] [address] Efficiency Engineer: Kristian Garcia MD Performed By: #### C DP, BMP #### [address] [address] Efficiency Engineer: Kristian Garcia MD Immature granulocytes/100 WBC (Bld) 0 % Normal 0 [facility] Comment on above: Performed By: #### B MP, CDP #### [address] [address] Efficiency Engineer: Kristian Garcai MD Performed By: #### C DP, BMP #### [address] [address] Efficiency Engineer: Kristian Garcia MD Lymphocytes (Bld) [#/Vol] 1.43 10*3/uL Normal 1.10-3.70 [facility] Comment on above: Performed By: #### B MP, CDP #### [address] [address] Efficiency Engineer: Kristian Garcia MD Performed By: #### C DP, BMP #### [address] [address] Efficiency Engineer: Kristian Garcia MD Lymphocytes/100 WBC (Bld) 24 % Normal 24-43 [facility] Comment on above: Performed By: #### B MP, CDP #### [address] [address] Efficiency Engineer: Kristian Garcia MD Performed By: #### C DP, BMP #### [address] [address] Efficiency Engineer: Kristian Garcia MD MCH (RBC) [Entitic mass] 29.9 pg Normal 25.2-33.5 [facility] Comment on above: Performed By: #### B MP, CDP #### [address] [address] Efficiency Engineer: Kristian Garcia MD Performed By: #### C DP, BMP #### [address] [address] Efficiency Engineer: Kristian Garcia MD MCHC (RBC) [Mass/Vol] 31.2 g/dL Normal 28.4-34.8 [facility] Comment on above: Performed By: #### B MP, CDP #### [address] [address] Efficiency Engineer: Kristian Garcia MD Performed By: #### C DP, BMP #### [address] [address] Efficiency Engineer: Kristian Garcia MD MCV (RBC) [Entitic vol] 95.7 fL Normal 82.6-102.9 [facility] Comment on above: Performed By: #### B MP, CDP #### [address] [address] Efficiency Engineer: Kristian Garcia MD Performed By: #### C DP, BMP #### [address] [address] Efficiency Engineer: Kristian Garcia MD Monocytes (Bld) [#/Vol] 1.02 10*3/uL Normal 0.10-1.20 [facility] Comment on above: Performed By: #### B MP, CDP #### [address] [address] Efficiency Engineer: Kristian Garcia MD Performed By: #### C DP, BMP #### [address] [address] Efficiency Engineer: Kristian Garcia MD Monocytes/100 WBC (Bld) 17 % High 3-12 [facility] Comment on above: Performed By: #### B MP, CDP #### [address] [address] Efficiency Engineer: Kristian Garcia MD Performed By: #### C DP, BMP #### [address] [address] Efficiency Engineer: Kristian Garcia MD Neutrophil (Seg) 57 % Normal 36-65 [facility] Comment on above: Performed By: #### B MP, CDP #### [address] [address] Efficiency Engineer: Kristian Garcia MD Performed By: #### C DP, BMP #### [address] [address] Efficiency Engineer: Kristian Garcia MD NRBC Automated 0.0 per 100 WBC Normal 0.0 [facility] Comment on above: Performed By: #### B MP, CDP #### [address] [address] Efficiency Engineer: Kristian Garcia MD Performed By: #### C DP, BMP #### [address] [address] Efficiency Engineer: Kristian Garcia MD Platelet Count See Reflexed IPF Result Normal 138-453 [facility] Comment on above: Performed By: #### B MP, CDP #### [address] [address] Efficiency Engineer: Kristian Garcia MD Performed By: #### C DP, BMP #### [address] [address] Efficiency Engineer: Kristian Garcia MD Platelet, Fluoresc. 138 k/uL Normal 138-453 [facility] Comment on above: Performed By: #### B MP, CDP #### [address] [address] Efficiency Engineer: Kristian Garcia MD Performed By: #### C DP, BMP #### [address] [address] Efficiency Engineer: Kristian Garcia MD PLT, Immature Fract. 3.9 % Normal 1.1-10.3 [facility] Comment on above: Performed By: #### B MP, CDP #### [address] [address] Efficiency Engineer: Kristian Garcia MD Performed By: #### C DP, BMP #### [address] [address] Efficiency Engineer: Kristian Garcia MD RBC (Bld) [#/Vol] 4.22 10*6/uL Normal 3.95-5.11 [facility] Comment on above: Performed By: #### B MP, CDP #### [address] [address] Efficiency Engineer: Kristian Garcia MD Performed By: #### C DP, BMP #### [address] [address] Efficiency Engineer: Kristian Garcia MD WBC (Bld) [#/Vol] 6.0 10*3/uL Normal 3.5-11.3 [facility] Comment on above: Performed By: #### B MP, CDP #### [address] [address] Efficiency Engineer: Kristian Garcia MD Performed By: #### C DP, BMP #### [address] [address] Efficiency Engineer: Kristian Garcia MD CT HEAD WO CONTRASTon 2024 CT HEAD WO CONTRAST EXAMINATION: CT OF THE HEAD WITHOUT CONTRAST 03/04/2024 9:25 am TECHNIQUE: CT of the head was performed without the administration of intravenous contrast. Automated exposure control, iterative reconstruction, and/or weight based adjustment of the mA/kV was utilized to reduce the radiation dose to as low as reasonably achievable. COMPARISON: 03/03/2024 HISTORY: ORDERING SYSTEM PROVIDED HISTORY: FU TECHNOLOGIST PROVIDED HISTORY: FU Reason for Exam: fall, follow up subarachnoid hemorrhage FINDINGS: BRAIN/VENTRICLES: There is persistent but improving subarachnoid hemorrhage adjacent to the anterior aspect of the interhemispheric falx. There is no new hemorrhage or acute infarct. No mass effect or midline shift. No ventriculomegaly. ORBITS: Limited evaluation of the orbits is unremarkable. SINUSES: There is layering fluid within the paranasal sinuses. SOFT TISSUES/SKULL: No skull fracture. IMPRESSION: Persistent but improving small volume of subarachnoid hemorrhage. Interpreted by: Alber Dodson MD Signed by: Alber Dodson MD 03/04/24 Final result Normal [facility] CT Head WO contraston 2024 Persistent but impro ving small volume of subarachnoid hemorrhage. [facility] RIS CONSOLIDATED EXAMINATION: CT OF THE HEAD WITHOUT CONTRAST 03/04/2024 9:25 am TECHNIQUE: CT of the head was performed without the administration of intravenous contrast. Automated exposure control, iterative reconstruction, and/or weight based adjustment of the mA/kV was utilized to reduce the radiation dose to as low as reasonably achievable. COMPARISON: 03/03/2024 HISTORY: ORDERING SYSTEM PROVIDED HISTORY: FU TECHNOLOGIST PROVIDED HISTORY: FU Reason for Exam: fall, follow up subarachnoid hemorrhage FINDINGS: BRAIN/VENTRICLES: There is persistent but improving subarachnoid hemorrhage adjacent to the anterior aspect of the interhemispheric falx. There is no new hemorrhage or acute infarct. No mass effect or midline shift. No ventriculomegaly. ORBITS: Limited evaluation of the orbits is unremarkable. SINUSES: There is layering fluid within the paranasal sinuses. SOFT TISSUES/SKULL: No skull fracture. [facility] CONSOLIDATED Alber Dodson MD - 03/04/2024 EXAMINATION: CT OF THE HEAD WITHOUT CONTRAST 03/04/2024 9:25 am TECHNIQUE: CT of the head was performed without the administration of intravenous contrast. Automated exposure control, iterative reconstruction, and/or weight based adjustment of the mA/kV was utilized to reduce the radiation dose to as low as reasonably achievable. COMPARISON: 03/03/2024 HISTORY: ORDERING SYSTEM PROVIDED HISTORY: FU TECHNOLOGIST PROVIDED HISTORY: Reason for Exam: fall, follow up subarachnoid hemorrhage FINDINGS: BRAIN/VENTRICLES: There is persistent but improving subarachnoid hemorrhage adjacent to the anterior aspect of the interhemispheric falx. There is no new hemorrhage or acute infarct. No mass effect or midline shift. No ventriculomegaly. ORBITS: Limited evaluation of the orbits is unremarkable. SINUSES: There is layering fluid within the paranasal sinuses. SOFT TISSUES/SKULL: No skull fracture. IMPRESSION: Persistent but improving small volume of subarachnoid hemorrhage. [facility] Radiology Study observation (narrative) [facility] Magnesiumon 03-04-2024 Magnesium [Mass/Vol] 2.4 mg/dL 1.6 - 2 .4 mg/dL [facility] Magnesium [Mass/Vol] 2.4 mg/dL Normal 1.6-2.4 [facility] Comment on above: Performed By: #### P HO, MG, BMP #### [facility] [address] [place] [address] Efficiency Engineer: Kristian Garcia MD Performed By: #### P HO, BMP, MG ####[employer] [id number] [place] [address] Lab Director: Kristian Garcia MD No Panel Informationon 03-04 [facility] Phosphoruson 03-04-2024 Phosphate [Mass/Vol] 2.9 mg/dL 2.5 - 4 .5 mg/dL [facility] Phosphorus, Inorg.on 025 Phosphorus, Inorg. 2.9 mg/dL Normal 2.5-4.5 [facility] Comment on above: Performed By: #### P HO, MG, BMP #### [facility] [address] [place] [address] Efficiency Engineer: Kristian Garcia MD Performed By: #### P , [facility], ####[place] [id number] [place] [id number] Lab Director: Kristian Garcia MD CT HEAD WO CONTRASTon 2023 CT HEAD WO CONTRAST EXAMINATION: CT OF THE HEAD WITHOUT CONTRAST 03/03/2024 3:20 pm TECHNIQUE: CT of the head was performed without the administration of intravenous contrast. Automated exposure control, iterative reconstruction, and/or weight based adjustment of the mA/kV was utilized to reduce the radiation dose to as low as reasonably achievable. COMPARISON: The patient reportedly has known subarachnoid hemorrhage on outside imaging which is not available for direct comparison. HISTORY: ORDERING SYSTEM PROVIDED HISTORY: trauma, re eval TECHNOLOGIST PROVIDED HISTORY: trauma, re eval Reason for Exam: SAH (subarachnoid hemorrhage) (HCC) FINDINGS: BRAIN/VENTRICLES: There is a trace volume of subarachnoid hemorrhage along the anterior aspect of the interhemispheric falx. There is no mass effect or midline shift. There is no ventriculomegaly. No acute infarct. ORBITS: Limited evaluation of the orbits is unremarkable. SINUSES: There is fluid within the maxillary sinuses and a suspected nondisplaced right nasal fracture. SOFT TISSUES/SKULL: No skull fracture. IMPRESSION: Trace subarachnoid hemorrhage along the interhemispheric falx. The findings were sent to the Radiology Results Communication Center at 4:37 pm on 03/03/2024 to be communicated to a licensed caregiver. Interpreted by: Alber Dodson MD Signed by: Alber Dodson MD 03/03/24 Final result Normal [facility] CT Head WO contraston 2023 Trace subarachnoid hemorrhage along the interhemispheric falx. The findings were sent to the Radiology Results Communication Center at 4:37 pm on 03/03/2024 to be communicated to a licensed caregiver. [facility] RIS CONSOLIDATED EXAMINATION: CT OF THE HEAD WITHOUT CONTRAST 03/03/2024 3:20 pm TECHNIQUE: CT of the head was performed without the administration of intravenous contrast. Automated exposure control, iterative reconstruction, and/or weight based adjustment of the mA/kV was utilized to reduce the radiation dose to as low as reasonably achievable. COMPARISON: The patient reportedly has known subarachnoid hemorrhage on outside imaging which is not available for direct comparison. HISTORY: ORDERING SYSTEM PROVIDED HISTORY: trauma, re eval TECHNOLOGIST PROVIDED HISTORY: trauma, re eval Reason for Exam: SAH (subarachnoid hemorrhage) (HCC) FINDINGS: BRAIN/VENTRICLES: There is a trace volume of subarachnoid hemorrhage along the anterior aspect of the interhemispheric falx. There is no mass effect or midline shift. There is no ventriculomegaly. No acute infarct. ORBITS: Limited evaluation of the orbits is unremarkable. SINUSES: There is fluid within the maxillary sinuses and a suspected nondisplaced right nasal fracture. SOFT TISSUES/SKULL: No skull fracture. [facility] Alber Abdul MD - 03/03/2024 EXAMINATION: CT OF THE HEAD WITHOUT CONTRAST 03/03/2024 3:20 pm TECHNIQUE: CT of the head was performed without the administration of intravenous contrast. Automated exposure control, iterative reconstruction, and/or weight based adjustment of the mA/kV was utilized to reduce the radiation dose to as low as reasonably achievable. COMPARISON: The patient reportedly has known subarachnoid hemorrhage on outside imaging which is not available for direct comparison. HISTORY: ORDERING SYSTEM PROVIDED HISTORY: trauma, re eval TECHNOLOGIST PROVIDED HISTORY: trauma, re eval Reason for Exam: SAH (subarachnoid hemorrhage) (HCC) FINDINGS: BRAIN/VENTRICLES: There is a trace volume of subarachnoid hemorrhage along the anterior aspect of the interhemispheric falx. There is no mass effect or midline shift. There is no ventriculomegaly. No acute infarct. ORBITS: Limited evaluation of the orbits is unremarkable. SINUSES: There is fluid within the maxillary sinuses and a suspected nondisplaced right nasal fracture. SOFT TISSUES/SKULL: No skull fracture. IMPRESSION: Trace subarachnoid hemorrhage along the interhemispheric falx. The findings were sent to the Radiology Results Communication Center at 4:37 pm on 03/03/2024 to be communicated to a licensed caregiver. Gen9 CT Head WO contrastOrdered B y: Alber Dodson on 03-03-2024 Gen9 Work Phone: No Panel Informationon 03-03 Radiology Study observation (narrative) [facility] Medio TYPE AND SCREENon 03-03-2024 ABO and Rh group Nom (Bld) Blood group O Rh(D) positive [facility] Arm Band Number BE [id number] [facility] Blood Bank Sample Expiration 03/06/2024,2359 [facility] Blood group antibodies identified Nom Negative [facility] Trauma Panelon 03-03-2024 Anion gap [Moles/Vol] 11 mmol/L 9 - 16 mmol/L [facility] aPTT Coag (Bld) [Time] 25.1 s [facility] Comment on above: IV Heparin Therapy Range: 66.0-92.0 sec Blood Bank Specimen BILL FOR SERVICES PERFORMED [facility] Carboxyhemoglobin (Bld) [Mass fraction] 2.3 % 0 - 5 % [facility] Comment on above: Reference Range: Non-Smokers 0-2% Average Smoker 2-4% Heavy Smoker <10% Chloride [Moles/Vol] 95 mmol/L Low 98 - 10 7 mmol/L [facility] CO2 [Moles/Vol] 29 mmol/L 20 - 31 mmol/L [facility] Creatinine [Mass/Vol] 1.1 mg/dL High 0.6 - 0.9 mg/dL [facility] Erythrocyte distribution width (RBC) [Ratio] 13.4 % 11.8 - 14.4 % [facility] Est, Glom Filt Rate 34 Low - PINF [facility] Comment on above: These results are not intended for use in patients <18 years of age. eGFR results are calculated without a race factor using the 2020 CKD-EPI equation. Careful clinical correlation is recommended, particularly when comparing to results calculated using previous equations. The CKD-EPI equation is less accurate in patients with extremes of muscle mass, extra-renal metabolism of creatine, excessive creatine ingestion, or following therapy that affects renal tubular secretion. Ethanol percent <0.010 NINF - 0.010 % [facility] Ethanolamine [Mass/Vol] <10 NINF - 10 mg/dL [facility] Glucose [Mass/Vol] 129 mg/dL High 74 - 99 mg/dL [facility] HCG ( test) Ql Negative NEGATIVE [facility] Comment on above: Specimens with hCG l evels near the threshold of the test (25 mIU/mL) may give a negative or indeterminate result. In such cases, another test should be performed with a new specimen in 48-72 hours. If early is suspected clinically in this setting, correlation with quantitative serum b-hCG level is suggested. [facility] has confirmed the use of plasma for this test. This has not been cleared or approved by the U.S. Food and Drug Administration. The FDA has determined that such clearance is not necessary. HCO3 (Bld) [Moles/Vol] 29.9 mmol/L 24 - 30 mmol/L [facility] Hematocrit (Bld) [Volume fraction] 41.7 % 36.3 - 47.1 % [facility] Hemoglobin (Bld) [Mass/Vol] 13.7 g/dL 11.9 - 15.1 g/dL [facility] INR Coag (PPP) [Relative time] 1.0 {INR} [facility] Comment on above: Therapeutic Range: Moderate Anticoagulant Intensity: INR = 2.0-3.0 High Anticoagulant Intensity: INR = 2.5-3.5 Interpretation and review of laboratory results Abnormal [facility] MCH (RBC) [Entitic mass] 30.2 pg 25.2 - 33.5 pg [facility] MCHC (RBC) [Mass/Vol] 32.9 g/dL 28.4 - 34.8 g/dL [facility] MCV (RBC) [Entitic vol] 92.1 fL 82.6 - 102.9 fL [facility] Nucleated RBC/100 WBC (Bld) [Ratio] 0.0 % 0.0 per 100 WBC [facility] Oxygen saturation in Blood 82.7 % 60.0 - 85.0 % [facility] Oxygen/Inspired gas Respiratory system --on ventilator INFORMATION NOT PROVIDED [facility] pCO2, Michael 50.7 [facility] pH, Michael 7.389 7.320 - 7.420 [facility] Platelet mean volume (Bld) [Entitic vol] 10.3 fL 8.1 - 13.5 fL [facility] Platelets (Bld) [#/Vol] 141 10*3/uL [facility] PO2, Michael 47.8 [facility] Positive Base Excess, Michael 3.8 mmol/L High 0.0 - 2.0 mmol/L [facility] Potassium [Moles/Vol] 3.3 mmol/L Low 3.7 - 5.3 mmol/L [facility] PT Coag (PPP) [Time] 13.0 s [facility] RBC (Bld) [#/Vol] 4.53 10*6/uL 3.95 - 5.11 m/uL [facility] Sodium [Moles/Vol] 135 mmol/L Low 136 - 145 mmol/L [facility] Urea nitrogen [Mass/Vol] 11 mg/dL 8 - 23 mg/dL [facility] WBC other (Bld) [#/Vol] 8.9 [facility] Trauma Profileon 03-03-2024 Anion gap [Moles/Vol] 11 mmol/L Normal 9-16 [facility] Comment on above: Performed By: #### E RTPF #### [facility] [address] [place] [address] Efficiency Engineer: Kristian Garcia MD Performed By: #### E RTPF ####[facility] RoboticsAbttgkofuhbo[address] [place], [place] [address])[phone] Director: Kristian Garcia MD Chloride [Moles/Vol] 95 mmol/L Low 98-107 [facility] Comment on above: Performed By: #### E RTPF #### [facility] [address] [place] [address] Efficiency Engineer: Kristian Garcia MD Performed By: #### E RTPF ####[facility] RoboticsTiyhdz[address]msg[address] [place] [address] Lab Director: Kristian Garcia MD CO2 [Moles/Vol] 29 mmol/L Normal - [facility] Comment on above: Performed By: #### E RTPF #### [facility] [address] [place], [place] [id number] Efficiency Engineer: Kristian Garcia MD Performed By: #### E RTPF ####[address] [address] Lab Director: Kristian Garcia MD Creatinine [Mass/Vol] 1.1 mg/dL High 0.6-0.9 [facility] Comment on above: Performed By: #### E RTPF #### [address] [address] Efficiency Engineer: Kristian Garcia MD Performed By: #### E RTPF ####[address] [address] Lab Director: Kristian Garcia MD Ethanol [Mass/Vol] mg/dL Normal <10 [facility] Comment on above: Performed By: #### E RTPF #### [address] [address] Efficiency Engineer: Krsitian Garcia MD Performed By: #### E RTPF ####[address] [address] Lab Director: Kristian Garcia MD Ethanol percent <0.010 Normal <0.010 [facility] Comment on above: Performed By: #### E RTPF #### [address] [address] Efficiency Engineer: Kristian Garcia MD Performed By: #### E RTPF ####[facility] [address] [place] [address] Lab Director: Kristian Garcia MD GFR/1.73 sq M.predicted among non-blacks MDRD (S/P/Bld) [Vol rate/Area] 34 mL/min/{1.73_m2} Low >60 [facility] Comment on above: Result Comment: These results are not intended for use in patients <18 years of age. eGFR results are calculated without a race factor using the 2020 CKD-EPI equation. Careful clinical correlation is recommended, particularly when comparing to results calculated using previous equations. The CKD-EPI equation is less accurate in patients with extremes of muscle mass, extra-renal metabolism of creatine, excessive creatine ingestion, or following therapy that affects renal tubular secretion. Performed By: #### E RTPF #### [address] [address] Efficiency Engineer: Kristian Garcia MD Performed By: #### E RTPF ####[address] [address] Lab Director: Kristian Garcia MD Glucose [Mass/Vol] 129 mg/dL High 74-99 [facility] Comment on above: Performed By: #### E RTPF #### [address] [address] Efficiency Engineer: Kristian Garcia MD Performed By: #### E RTPF ####[address] [address] Lab Director: Kristian Garcia MD Potassium [Moles/Vol] 3.3 mmol/L Low 3.7-5.3 [facility] Comment on above: Performed By: #### E RTPF #### [address] [address] Efficiency Engineer: Kristian Garcia MD Performed By: #### E RTPF ####[address] [address] Lab Director: Kristian Garcia MD Sodium [Moles/Vol] 135 mmol/L Low 136-145 [facility] Comment on above: Performed By: #### E RTPF #### [address] [address] Efficiency Engineer: Kristian Garcia MD Performed By: #### E RTPF ####[address] [address] Lab Director: Kristian Garcia MD Urea nitrogen [Mass/Vol] 11 mg/dL Normal 8-23 [facility] Comment on above: Performed By: #### E RTPF #### [address] [address] Efficiency Engineer: Kristian Garcia MD Performed By: #### E RTPF ####[address] [phone] Director: Kristian Garcia MD aPTT Coag (Bld) [Time] 25.1 s Normal 23.0-36.5 [facility] Comment on above: Result Comment: IV Heparin Therapy Range: 66.0-92.0 sec Performed By: #### E RTPF #### [address] [address] Efficiency Engineer: Kristian Garcia MD Performed By: #### E RTPF ####[address] [phone] Director: Kristian Garcia MD INR Coag (PPP) [Relative time] 1.0 {INR} Normal [facility] Comment on above: Result Comment: Therapeutic Range: Moderate Anticoagulant Intensity: INR = 2.0-3.0 High Anticoagulant Intensity: INR = 2.5-3.5 Performed By: #### E RTPF #### [address] [address] Efficiency Engineer: Kristian Garcia MD Performed By: #### E RTPF ####[address] [phone] Director: Kristina Garcia MD PT Coag (PPP) [Time] 13.0 s Normal 11.7-14.9 [facility] Comment on above: Performed By: #### E RTPF #### [address] [place] [address] Efficiency Engineer: Kristian Garcia MD Performed By: #### E RTPF ####[address] [address] Lab Director: Kristian Garcia MD Erythrocyte distribution width (RBC) [Ratio] 13.4 % Normal 11.8-14.4 [facility] Comment on above: Performed By: #### E RTPF #### [address] [address] Efficiency Engineer: Kristian Garcia MD Performed By: #### E RTPF ####[address] [address] Lab Director: Kristian Garcia MD Hematocrit (Bld) [Volume fraction] 41.7 % Normal 36.3-47.1 [facility] Comment on above: Performed By: #### E RTPF #### [address] [address] Efficiency Engineer: Kristian Garcia MD Performed By: #### E RTPF ####[address] [address] Lab Director: Kristian Garcia MD Hemoglobin (Bld) [Mass/Vol] 13.7 g/dL Normal 11.9-15.1 [facility] Comment on above: Performed By: #### E RTPF #### [address] [address] Efficiency Engineer: Kristian Garcia MD Performed By: #### E RTPF ####[address] [address] Lab Director: Kristian Garcia MD MCH (RBC) [Entitic mass] 30.2 pg Normal 25.2-33.5 [facility] Comment on above: Performed By: #### E RTPF #### [address] [address] Efficiency Engineer: Kristian Garcia MD Performed By: #### E RTPF ####[address] [phone] Director: Kristian Garcia MD MCHC (RBC) [Mass/Vol] 32.9 g/dL Normal 28.4-34.8 [facility] Comment on above: Performed By: #### E RTPF #### [address] [address] Efficiency Engineer: Kristian Garcia MD Performed By: #### E RTPF ####[address] [phone] Director: Kristian Garcia MD MCV (RBC) [Entitic vol] 92.1 fL Normal 82.6-102.9 [facility] Comment on above: Performed By: #### E RTPF #### [address] [address] [address] Efficiency Engineer: Kristian Garcia MD Performed By: #### E RTPF ####[address] [phone] Director: Kristian Garcia MD NRBC Automated 0.0 per 100 WBC Normal 0.0 [facility] Comment on above: Performed By: #### E RTPF #### [address] [address] Efficiency Engineer: Kristian Garcia MD Performed By: #### E RTPF ####[address] [phone] Director: Kristian Garcia MD Platelet mean volume (Bld) [Entitic vol] 10.3 fL Normal 8.1-13.5 [facility] Comment on above: Performed By: #### E RTPF #### [facility] [address] [place] [address] Efficiency Engineer: Kristian Garcia MD Performed By: #### E RTPF ####[facility] [place], [place] [phone] Director: Kristian Garcia MD Platelets (Bld) [#/Vol] 141 10*3/uL Normal 138-453 [facility] Comment on above: Performed By: #### E RTPF #### [id number] [place] [address] Efficiency Engineer: Kristian Garcia MD Performed By: #### E RTPF ####[address] [phone] Director: Kristian Garcia MD RBC (Bld) [#/Vol] 4.53 10*6/uL Normal 3.95-5.11 [facility] Comment on above: Performed By: #### E RTPF #### [facility] [address] [place] [address] Efficiency Engineer: Kristian Garcia MD Performed By: #### E RTPF ####[address] [phone] Director: Kristian Garcia MD WBC (Bld) [#/Vol] 8.9 10*3/uL Normal 3.5-11.3 [facility] Comment on above: Performed By: #### E RTPF #### [facility] [address] [place] [address] Efficiency Engineer: Kristian Garcia MD Performed By: #### E RTPF ####[id number] [place], [place] [phone] Director: Kristian Garcia MD HCG Screen, Blood Negative Normal [facility] Comment on above: Result Comment: Spec imens with hCG levels near the threshold of the test (25 mIU/mL) may give a negative or indeterminate result. In such cases, another test should be performed with a new specimen in 48-72 hours. If early is suspected clinically in this setting, correlation with quantitative serum b-hCG level is suggested. [facility] has confirmed the use of plasma for this test. This has not been cleared or approved by the U.S. Food and Drug Administration. The FDA has determined that such clearance is not necessary. Performed By: #### E RTPF #### [facility] [address] [place] [address] Efficiency Engineer: Kristian Garcia MD Performed By: #### E RTPF ####[facility] [place] [address] Lab Director: Kristian Garcia MD Body Temp. 37.0 Normal [facility] Comment on above: Performed By: #### E RTPF #### [facility] [address] [place] [address] Efficiency Engineer: Kristian Garcia MD Performed By: #### E RTPF ####[facility] [place] [address] Lab Director: Kristian Garcia MD Carboxy Hgb 2.3 % Normal 0-5 [facility] Comment on above: Result Comment: Reference Range: Non-Smokers 0-2% Average Smoker 2-4% Heavy Smoker <10% Performed By: #### E RTPF #### [facility] [address] [address] Efficiency Engineer: Kristian Garcia MD Performed By: #### E RTPF ####[facility] [place] [address] Lab Director: Kristian Garcia MD FIO2 INFORMATION NOT PROVIDED Normal [facility] Comment on above: Performed By: #### E RTPF #### [facility] [address] [place] [address] [place] [address] Efficiency Engineer: Kristian Garcia MD Performed By: #### E RTPF ####[address] [address] Lab Director: Kristian Garcia MD HCO3 (Bld) [Moles/Vol] 29.9 mmol/L Normal 24-30 [facility] Comment on above: Performed By: #### E RTPF #### [address] [address] Efficiency Engineer: Kristian Garcia MD Performed By: #### E RTPF ####[address] [address] Lab Director: Kristian Garcia MD Oxygen saturation in Blood 82.7 % Normal 60.0-85.0 [facility] Comment on above: Performed By: #### E RTPF #### [address] [address] Efficiency Engineer: Kristian Garcia MD Performed By: #### E RTPF ####[address] [address] Lab Director: Kristian Garcia MD pCO2 50.7 mm Hg Normal 39-55 [facility] Comment on above: Performed By: #### E RTPF #### [address] [address] Efficiency Engineer: Kristian Garcia MD Performed By: #### E RTPF ####[address] [address] Lab Director: Kristian Garcia MD pH (Bld) 7.389 [pH] Normal 7.320-7.42 0 [facility] Comment on above: Performed By: #### E RTPF #### [address] [address] Efficiency Engineer: Kristian Garcia MD Performed By: #### E RTPF ####[address] [phone] Director: Kristian Garcia MD pO2 47.8 mm Hg Normal 30-50 [facility] Comment on above: Performed By: #### E RTPF #### [address] [address] Efficiency Engineer: Kristian Garcia MD Performed By: #### E RTPF ####[address] [address] Lab Director: Kristian Garcia MD Positive Base Excess 3.8 mmol/L High 0.0-2.0 [facility] Comment on above: Performed By: #### E RTPF #### [address] [address] Efficiency Engineer: Kristian Garcia MD Performed By: #### E RTPF ####[address] [phone] Director: Kristian Garcia MD Blood Bank BILL FOR SERVICES PERFORMED Normal [facility] Comment on above: Performed By: #### E RTPF #### [address] [address] Efficiency Engineer: Kristian Garcia MD Performed By: #### E RTPF ####[address] [phone] Director: Kristian Garcia MD Type + Screenon 03-03-2024 Type + Screen Sample Expiration 03/06/2024,2359 Arm Band Number BE [id number] ABO/Rh(D) O POSITIVE Antibody Screen NEGATIVE Normal [facility] Comment on above: Performed By: #### T YS #### [address] [address] Efficiency Engineer: Kristian Garcia MD Alanine Aminotransferaseon 1 04-12-2023 ALT [Catalytic activity/Vol] 14 U/L Normal 7-52 [facility] Comment on above: Performed By: #### B MP, ALT, AST, LIPID #### [address] Aspartate Amino Transferaseo n 02-10-2024 AST [Catalytic activity/Vol] 21 U/L Normal 13-39 [facility] Comment on above: Performed By: #### B MP, ALT, AST, LIPID #### [address] Basic Metabolic Panelon Anion gap [Moles/Vol] 10.9 mmol/L Normal 6.0-15.0 [facility] Comment on above: Performed By: #### B MP, ALT, AST, LIPID #### [address] Calcium [Mass/Vol] 9.9 mg/dL Normal 8.6-10.3 [facility] Comment on above: Performed By: #### B MP, ALT, AST, LIPID #### [address] Chloride [Moles/Vol] 98 mmol/L Normal 98-107 [facility] Comment on above: Performed By: #### B MP, ALT, AST, LIPID #### [address] CO2 [Moles/Vol] 33.9 mmol/L High 21.0-31.0 [facility] Comment on above: Performed By: #### B MP, ALT, AST, LIPID #### [place] [address] [place] Creatinine [Mass/Vol] 1.10 mg/dL Normal 0.60-1.20 [facility] Comment on above: Performed By: #### B MP, ALT, AST, LIPID #### [address] Estimated GFR 52.076 mL/Min Normal [facility] Comment on above: Performed By: #### B MP, ALT, AST, LIPID #### [address] Glucose [Mass/Vol] 116 mg/dL High 70-100 [facility] Comment on above: Result Comment: [facility] Glucose Reference Range is dependent on time and content of last meal. Glucose of more than 200 mg/dL in a nonstressed, ambulatory subject supports the diagnosis of Diabetes Mellitus. ADA recommended reference range Performed By: #### B MP, ALT, AST, LIPID #### [address] Potassium [Moles/Vol] 3.8 mmol/L Normal 3.5-5.1 [facility] Comment on above: Performed By: #### B MP, ALT, AST, LIPID #### [address] Sodium [Moles/Vol] 139 mmol/L Normal 136-145 [facility] Comment on above: Performed By: #### B MP, ALT, AST, LIPID #### [place] [address] [place] Urea nitrogen [Mass/Vol] 13 mg/dL Normal 7-25 [facility] Comment on above: Performed By: #### B MP, ALT, AST, LIPID #### [address] Complete Blood Count Auto Di ffon 02-10-2024 Basophils (Bld) [#/Vol] 0.0 10*3/uL Normal 0.0-0.2 [facility] Comment on above: Result Comment: PERF ORMED BY: [place] [address] PATHOLOGIST CATEGORY MANAGER SELIN HOYT M.D. Performed By: #### B MP, ALT, AST, LIPID #### [place] [address] [place] Basophils/100 WBC (Bld) 0.7 % Normal . [facility] Comment on above: Performed By: #### B MP, ALT, AST, LIPID #### [address] Eosinophils (Bld) [#/Vol] 0.2 10*3/uL Normal 0.0-0.45 [facility] Comment on above: Performed By: #### B MP, ALT, AST, LIPID #### [address] Eosinophils/100 WBC (Bld) 2.6 % Normal . [facility] Comment on above: Performed By: #### B MP, ALT, AST, LIPID #### [address] Erythrocyte distribution width (RBC) [Ratio] 14.0 % Normal 11.9-15.3 [facility] Comment on above: Performed By: #### B MP, ALT, AST, LIPID #### [address] Hematocrit (Bld) [Volume fraction] 46.2 % Normal 34.0-46.4 [facility] Comment on above: Performed By: #### B MP, ALT, AST, LIPID #### [address] Hemoglobin (Bld) [Mass/Vol] 15.3 g/dL Normal 11.8-15.4 [facility] Comment on above: Performed By: #### B MP, ALT, AST, LIPID #### [address] Lymphocytes (Bld) [#/Vol] 1.5 10*3/uL Normal 1.00-4.8 [facility] Comment on above: Performed By: #### B MP, ALT, AST, LIPID #### [address] Lymphocytes/100 WBC (Bld) 25.0 % Normal . [facility] Comment on above: Performed By: #### B MP, ALT, AST, LIPID #### [address] MCH (RBC) [Entitic mass] 30.6 pg Normal 24.7-34.3 [facility] Comment on above: Performed By: #### B MP, ALT, AST, LIPID #### [address] MCV (RBC) [Entitic vol] 92.2 fL Normal 80-100 [facility] Comment on above: Performed By: #### B MP, ALT, AST, LIPID #### [address] Mean Corpuscular HGB Conc 33.1 g/dL Normal 32.0-35.0 [facility] Comment on above: Performed By: #### B MP, ALT, AST, LIPID #### [address] Monocytes (Bld) [#/Vol] 0.6 10*3/uL Normal 0.0-0.8 [facility] Comment on above: Performed By: #### B MP, ALT, AST, LIPID #### [address] Monocytes/100 WBC (Bld) 9.3 % Normal . [facility] Comment on above: Performed By: #### B MP, ALT, AST, LIPID #### [address] Neutrophils (Bld) [#/Vol] 3.9 10*3/uL Normal 1.8-7.7 [facility] Comment on above: Performed By: #### B MP, ALT, AST, LIPID #### [address] Neutrophils/100 WBC (Bld) 62.4 % Normal . [facility] Comment on above: Performed By: #### B MP, ALT, AST, LIPID #### [address] NRBC% 0.1 /100{WBC} Normal 0-0.5 [facility] Comment on above: Performed By: #### B MP, ALT, AST, LIPID #### [address] [place] [address] [place] Platelet mean volume (Bld) [Entitic vol] 9.6 fL Normal 6.3-10.7 [facility] Comment on above: Performed By: #### B MP, ALT, AST, LIPID #### [facility] [address] Platelets (Bld) [#/Vol] 214 10*3/uL Normal 150-450 [facility] Comment on above: Performed By: #### B MP, ALT, AST, LIPID #### [facility] [address] RBC (Bld) [#/Vol] 5.01 10*6/uL High 3.60-5.00 [facility] Comment on above: Performed By: #### B MP, ALT, AST, LIPID #### [facility] [address] WBC (Bld) [#/Vol] 6.2 10*3/uL Normal 3.8-11.6 [facility] Comment on above: Performed By: #### B MP, ALT, AST, LIPID #### [address] Lipid Panelon 02-10-2024 Cholesterol [Mass/Vol] 135 mg/dL Low 140-200 [facility] Comment on above: Result Comment: Chol less than 200 mg/dl low risk Chol 201-239 mg/dl borderline risk Chol 240 mg/dl and greater high risk Performed By: #### B MP, ALT, AST, LIPID #### [address] Cholesterol in HDL [Mass/Vol] 49 mg/dL Normal 23-92 [facility] Comment on above: Result Comment: HDL CHOL ATP-III CLASSIFICATION Cardiovascular Risk HDL > or equal to 60 mg/dL LOW HDL < 40 mg/dL HIGH Performed By: #### B MP, ALT, AST, LIPID #### [address] Cholesterol.total/Chol esterol in HDL [Mass ratio] 2.8 {ratio} Normal <5.0 [facility] Comment on above: Result Comment: PERF ORMED BY: [place] [address] PATHOLOGIST CATEGORY MANAGER SELIN HOYT M.D. Performed By: #### B MP, ALT, AST, LIPID #### [address] LDL Cholesterol,Calculated 42 mg/dL Normal 0-100 [facility] Comment on above: Result Comment: LDL ATP III CLASSIFICATION LDL less than 100 mg/dL Optimal LDL 100-129 mg/dL Near or above optimal LDL 130-159 mg/dL Borderline high LDL 160-189 mg/dL High LDL greater than 189 mg/dL Very high Performed By: #### B MP, ALT, AST, LIPID #### [address] Triglyceride w/Reflex 218 mg/dL High 0-149 [facility] Comment on above: Result Comment: TRIG ATP III CLASSIFICATION TRIG less than 150 mg/dL Normal TRIG 150-199 mg/dL Borderline high TRIG 200-500 mg/dL High TRIG greater than 500 mg/dL Very high Standard traceable to the Center for Disease Conrtrol and Prevention (CDC) test method. Performed By: #### B MP, ALT, AST, LIPID #### [address] VLDL CHOLESTEROL 43 mg/dL Normal [facility] Comment on above: Performed By: #### B MP, ALT, AST, LIPID #### [address] Albumin [Mass/volume] in Ser um or Plasma by Bromocresol green (BCG) dye binding methoOrdered By: Jani Aguilera on 12-02-2023 Albumin BCG dye [Mass/Vol] 4.1 g/dL 3.5-5.7 [facility] Bacteria [Presence] in Urine by AutomatedOrdered By: Jani Aguilera on 12-02-2023 Bacteria Auto Ql (U) Rare [HPF] None Seen [facility] Bilirubin Test strip Ql (U)O rdered By: Jani Aguilera on 12-02-2023 Bilirubin Ql (U) Negative Negative [facility] Calcium [Mass/volume] in Ser um or PlasmaOrdered By: Jani Aguilera on 12-02-2023 Calcium [Mass/Vol] 9.1 mg/dL Normal 8.6-10.3 [facility] Comment on above: Performed By: #### M G, RENAL, CUU, [id number], CBCNO, URIC, ADDONUAPLUS, PROCRERAT, PTH #### [facility] [phone] [place] Carbon dioxide, total [Moles /volume] in Serum or PlasmaOrdered By: Jani Aguilera on 12-02-2023 CO2 [Moles/Vol] 32.3 mmol/L High 21.0-31.0 [facility] Comment on above: Performed By: #### M G, RENAL, CUU, [id number], CBCNO, URIC, ADDONUAPLUS, PROCRERAT, PTH #### [facility] [address] [phone] [place] Chloride [Moles/volume] in S live or PlasmaOrdered By: Jani Aguilera on 12-02-2023 Chloride [Moles/Vol] 101 mmol/L Normal 98-107 [facility] Comment on above: Performed By: #### M G, RENAL, CUU, [id number], CBCNO, URIC, ADDONUAPLUS, PROCRERAT, PTH #### [facility] [address] [phone] [place] Color of Urine by AutoOrdere d By: Jani Aguilera on 12-02-2023 Color (U) Light-yellow Normal Yellow [facility] Comment on above: Order Comment: Name Collection Type:: Clean-Voided Midstream Performed By: #### M G, RENAL, CUU, [id number], CBCNO, URIC, ADDONUAPLUS, PROCRERAT, PTH #### [facility] [address] [place] [address] [place] Creatinine [Mass/volume] in Serum or PlasmaOrdered By: Jani Aguilera on 12-02-2023 Creatinine [Mass/Vol] 1.12 mg/dL Normal 0.60-1.20 [facility] Comment on above: Performed By: #### M G, RENAL, CUU, [id number], CBCNO, URIC, ADDONUAPLUS, PROCRERAT, PTH #### [facility] [address] Creatinine [Mass/volume] in UrineOrdered By: Jani Aguilera on 12-02-2023 Creatinine (U) [Mass/Vol] 105.00 mg/dL [facility] Comment on above: No reference range e stablished Dipstick and Microscopicon 0 12-02-2023 Bacteria,Urine Rare Normal None Seen [facility] Comment on above: Order Comment: Name Collection Type:: Clean-Voided Midstream Performed By: #### M G, RENAL, CUU, [id number], CBCNO, URIC, ADDONUAPLUS, PROCRERAT, PTH #### [facility] [address] Bilirubin,Urine Negative Normal Negative [facility] Comment on above: Order Comment: Name Collection Type:: Clean-Voided Midstream Performed By: #### M G, RENAL, CUU, [id number], CBCNO, URIC, ADDONUAPLUS, PROCRERAT, PTH #### [facility] [address] Glucose Ql (U) Normal Normal Normal [facility] Comment on above: Order Comment: Name Collection Type:: Clean-Voided Midstream Performed By: #### M G, RENAL, CUU, [id number], CBCNO, URIC, ADDONUAPLUS, PROCRERAT, PTH #### [facility] [address] Hyaline Casts,Urine None Normal 0-8 [facility] Comment on above: Order Comment: Name Collection Type:: Clean-Voided Midstream Result Comment: PERF ORMED BY: [address] [place] [address] PATHOLOGIST CATEGORY MANAGER SHELLI CHARLES M.D. Performed By: #### M G, RENAL, CUU, [id number], CBCNO, URIC, ADDONUAPLUS, PROCRERAT, PTH #### [place] [address] [place] Nitrite,Urine Negative Normal Negative [facility] Comment on above: Order Comment: Name Collection Type:: Clean-Voided Midstream Performed By: #### M G, RENAL, CUU, [id number], CBCNO, URIC, ADDONUAPLUS, PROCRERAT, PTH #### [address] Occult Blood,Urine 2+ High Negative [facility] Comment on above: Order Comment: Name Collection Type:: Clean-Voided Midstream Performed By: #### M G, RENAL, CUU, [id number], CBCNO, URIC, ADDONUAPLUS, PROCRERAT, PTH #### [place] [address] [place] Protein,Urine Negative Normal Negative [facility] Comment on above: Order Comment: Name Collection Type:: Clean-Voided Midstream Performed By: #### M G, RENAL, CUU, [id number], CBCNO, URIC, ADDONUAPLUS, PROCRERAT, PTH #### [address] RBC,Urine 10-19 High 0-4 [facility] Comment on above: Order Comment: Name Collection Type:: Clean-Voided Midstream Performed By: #### M G, RENAL, CUU, [id number], CBCNO, URIC, ADDONUAPLUS, PROCRERAT, PTH #### [place] [address] [place] Specificy Hoffman,Urine 1.018 Normal 1.001-1.03 0 [facility] Comment on above: Order Comment: Name Collection Type:: Clean-Voided Midstream Performed By: #### M G, RENAL, CUU, [id number], CBCNO, URIC, ADDONUAPLUS, PROCRERAT, PTH #### [address] Squamous Epithelial Cell,Urine 3-4 High 0-2 [facility] Comment on above: Order Comment: Name Collection Type:: Clean-Voided Midstream Performed By: #### M G, RENAL, CUU, [id number], CBCNO, URIC, ADDONUAPLUS, PROCRERAT, PTH #### [address] Urobilinogen,Urine 2 mg/dL High Normal [facility] Comment on above: Order Comment: Name Collection Type:: Clean-Voided Midstream Performed By: #### M G, RENAL, CUU, [id number], CBCNO, URIC, ADDONUAPLUS, PROCRERAT, PTH #### [address] WBC CLUMP, Urine Occasional High None Seen [facility] Comment on above: Order Comment: Name Collection Type:: Clean-Voided Midstream Performed By: #### M G, RENAL, CUU, [id number], CBCNO, URIC, ADDONUAPLUS, PROCRERAT, PTH #### [address] WBC,Urine 10-19 High 0-4 [facility] Comment on above: Order Comment: Name Collection Type:: Clean-Voided Midstream Performed By: #### M G, RENAL, CUU, [id number], CBCNO, URIC, ADDONUAPLUS, PROCRERAT, PTH #### [address] Epithelial cells.squamous [# /area] in Urine sediment by Automated countOrdered By: Jani Hardinr on 12-02-2023 Epithelial cells.squamous Auto (Urine sed) [#/Area] 3-4 [HPF] High 0-2 [facility] Erythrocyte distribution wid th [Ratio] by Automated countOrdered By: Jani Willy on 12-02-2023 Erythrocyte distribution width (RBC) [Ratio] 13.5 % Normal 11.9-15.3 [facility] Comment on above: Performed By: #### M G, RENAL, CUU, [id number], CBCNO, URIC, ADDONUAPLUS, PROCRERAT, PTH #### [facility] [address] [phone] [place] Erythrocytes [#/area] in Uri ne sediment by Automated countOrdered By: Jani Aguilera on 12-02-2023 RBC Auto (Urine sed) [#/Area] 10-19 [HPF] High 0-4 [facility] Erythrocytes [#/volume] in B lood by Automated countOrdered By: Jani Aguilera on 12-02-2023 RBC (Bld) [#/Vol] 4.78 10*6/uL Normal 3.60-5.00 [facility] Comment on above: Performed By: #### M G, RENAL, CUU, [id number], CBCNO, URIC, ADDONUAPLUS, PROCRERAT, PTH #### [facility] [address] [place] [phone] [place] Glucose [Mass/volume] in Ser um or PlasmaOrdered By: Jani Aguilera on 12-02-2023 Glucose [Mass/Vol] 96 mg/dL Normal 70-100 [facility] Comment on above: ADA recommended refe rence rangeRandom Glucose Reference Range is dependent on time and content of last meal. Glucose of more than 200 mg/dL in a nonstressed, ambulatory subject supports the diagnosis of Diabetes Mellitus. Result Comment: [facility] Glucose Reference Range is dependent on time and content of last meal. Glucose of more than 200 mg/dL in a nonstressed, ambulatory subject supports the diagnosis of Diabetes Mellitus. ADA recommended reference range Performed By: #### M G, RENAL, CUU, [id number], CBCNO, URIC, ADDONUAPLUS, PROCRERAT, PTH #### [facility] [address] [place] [phone] [place] Glucose [Mass/volume] in Uri ne by Test stripOrdered By: Jani Aguilera on 12-02-2023 Glucose Test strip (U) [Mass/Vol] Normal mg/dL Normal [facility] Hematocrit [Volume Fraction] of Blood by Automated countOrdered By: Jani Aguilera on 12-02-2023 Hematocrit (Bld) [Volume fraction] 43.1 % Normal 34.0-46.4 [facility] Comment on above: Performed By: #### M G, RENAL, CUU, [id number], CBCNO, URIC, ADDONUAPLUS, PROCRERAT, PTH #### [address] Hemoglobin Test strip Ql (U) Ordered By: Jani Aguilera on 12-02-2023 Hemoglobin Ql (U) 2+ High Negative [facility] Hemoglobin [Mass/volume] in BloodOrdered By: Jani Aguilera on 12-02-2023 Hemoglobin (Bld) [Mass/Vol] 14.4 g/dL Normal 11.8-15.4 [facility] Comment on above: Performed By: #### M G, RENAL, CUU, [id number], CBCNO, URIC, ADDONUAPLUS, PROCRERAT, PTH #### [address] Hemogram CBC Without Diffon 12-02-2023 Mean Corpuscular HGB Conc 33.4 g/dL Normal 32.0-35.0 [facility] Comment on above: Performed By: #### M G, RENAL, CUU, [id number], CBCNO, URIC, ADDONUAPLUS, PROCRERAT, PTH #### [address] WBC (Bld) [#/Vol] 6.7 10*3/uL Normal 3.8-11.6 [facility] Comment on above: Performed By: #### M G, RENAL, CUU, [id number], CBCNO, URIC, ADDONUAPLUS, PROCRERAT, PTH #### [address] Hyaline casts [#/area] in Ur ine sediment by Automated countOrdered By: Jani Aguilera on 12-02-2023 Hyaline casts Auto (Urine sed) [#/Area] None [LPF] 0-8 [facility] Ketones [Presence] in Urine by Test stripOrdered By: Jani Aguilera on 12-02-2023 Ketones Ql (U) Negative Normal Negative [facility] Comment on above: Order Comment: Name Collection Type:: Clean-Voided Midstream Performed By: #### M G, RENAL, CUU, [id number], CBCNO, URIC, ADDONUAPLUS, PROCRERAT, PTH #### [facility] [address] Laboratory - Microbiology an d Antimicrobial susceptibilityOrdered By: Jani Aguilera on 12-02-2023 Bacteria identified Cx Nom (U) 2 Days [facility] Leukocyte clumps [Presence] in Urine by AutomatedOrdered By: Jani Aguilera on 12-02-2023 Leukocyte clumps Auto Ql (U) Occasional [LPF] High None Seen [facility] Leukocyte esterase [Presence ] in Urine by Test stripOrdered By: Jani Aguilera on 12-02-2023 Leukocyte esterase Test strip Ql (U) 3+ High Negative [facility] Comment on above: Order Comment: Name Collection Type:: Clean-Voided Midstream Performed By: #### M G, RENAL, CUU, [id number], CBCNO, URIC, ADDONUAPLUS, PROCRERAT, PTH #### [facility] [address] Leukocytes [#/area] in Urine sediment by Automated countOrdered By: Jani Aguilera on 12-02-2023 WBC Auto (Urine sed) [#/Area] 10-19 [HPF] High 0-4 [facility] Leukocytes [#/volume] correc jamil for nucleated erythrocytes in Blood by Automated counOrdered By: Jani Aguilera on 12-02-2023 WBC corrected for nucl RBC Auto (Bld) [#/Vol] 6.7 10*3/uL 3.8-11.6 [facility] MCH [Entitic mass] by Automa jamil countOrdered By: Jani Aguilera on 12-02-2023 MCH (RBC) [Entitic mass] 30.1 pg Normal 24.7-34.3 [facility] Comment on above: Performed By: #### M G, RENAL, CUU, [id number], CBCNO, URIC, ADDONUAPLUS, PROCRERAT, PTH #### [facility] [address] MCHC Auto (RBC) [Mass/Vol]Or dered By: Jani Aguilera on 12-02-2023 MCHC (RBC) [Mass/Vol] 33.4 g/dL 32.0-35.0 [facility] MCV [Entitic volume] by Auto mated countOrdered By: Jani Aguilera on 12-02-2023 MCV (RBC) [Entitic vol] 90.3 fL Normal 80-100 [facility] Comment on above: Performed By: #### M G, RENAL, CUU, [id number], CBCNO, URIC, ADDONUAPLUS, PROCRERAT, PTH #### [facility] [address] [place] [address] Magnesium [Mass/volume] in S live or PlasmaOrdered By: Jani Aguilera on 12-02-2023 Magnesium [Mass/Vol] 1.9 mg/dL Normal 1.9-2.7 [facility] Comment on above: Performed By: #### M G, RENAL, CUU, [id number], CBCNO, URIC, ADDONUAPLUS, PROCRERAT, PTH #### [facility] [address] [place] [address] Nitrite Test strip Ql (U)Ord ered By: Jani Aguilera on 12-02-2023 Nitrite Ql (U) Negative Negative [facility] No Panel InformationOrdered By: Jani Aguilera on 12-02-2023 Estimated GFR (CKD-EPI) 50.963 mL/Min [facility] Creatinine Clearance (Chem N/A [facility] Parathyrin.intact [Mass/volu me] in Serum or PlasmaOrdered By: Jani Aguilera on 12-02-2023 Parathyrin.intact [Mass/Vol] 53.6 pg/mL [facility] Parathyroid Hormone Intacton 12-02-2023 Parathyroid Hormone Intact 53.6 pg/mL Normal [facility] Comment on above: Result Comment: PERF ORMED BY: [place] [address] PATHOLOGIST CATEGORY MANAGER SHELLI CHARLES M.D. Performed By: #### M G, RENAL, CUU, [id number], CBCNO, URIC, ADDONUAPLUS, PROCRERAT, PTH #### [place] [address] [place] Phosphate [Mass/volume] in S live or PlasmaOrdered By: Jani Willy on 12-02-2023 Phosphate [Mass/Vol] 2.5 mg/dL Normal 2.5-4.5 [facility] Comment on above: Performed By: #### M G, RENAL, CUU, [id number], CBCNO, URIC, ADDONUAPLUS, PROCRERAT, PTH #### [address] Platelet mean volume [Entiti c volume] in Blood by Automated countOrdered By: Jani Willy on 12-02-2023 Platelet mean volume (Bld) [Entitic vol] 9.5 fL Normal 6.3-10.7 [facility] Comment on above: Result Comment: PERF ORMED BY: [place] [address] PATHOLOGIST CATEGORY MANAGER SHELLI CHARLES M.D. Performed By: #### M G, RENAL, CUU, [id number], CBCNO, URIC, ADDONUAPLUS, PROCRERAT, PTH #### [place] [address] [place] Platelets [#/volume] in Bloo d by Automated countOrdered By: Jani Willy on 12-02-2023 Platelets (Bld) [#/Vol] 203 10*3/uL Normal 150-450 [facility] Comment on above: Performed By: #### M G, RENAL, CUU, [id number], CBCNO, URIC, ADDONUAPLUS, PROCRERAT, PTH #### [place] [address] [place] Potassium [Moles/volume] in Serum or PlasmaOrdered By: Jani Aguilera on 12-02-2023 Potassium [Moles/Vol] 3.1 mmol/L Low 3.5-5.1 [facility] Comment on above: Performed By: #### M G, RENAL, CUU, [id number], CBCNO, URIC, ADDONUAPLUS, PROCRERAT, PTH #### [address] Protein Creat Ratio Ur Rando mon 12-02-2023 Creatinine, Urine (Random) 105.00 mg/dL Normal [facility] Comment on above: Result Comment: No r eference range established Performed By: #### M G, RENAL, CUU, [id number], CBCNO, URIC, ADDONUAPLUS, PROCRERAT, PTH #### [address] Urine Protein/Creatinine Ratio 124 mg/g{Cre} Normal 0-200 [facility] Comment on above: Result Comment: PERF ORMED BY: [place] [address] PATHOLOGIST CATEGORY MANAGER SHELLI CHARLES M.D. Performed By: #### M G, RENAL, CUU, [id number], CBCNO, URIC, ADDONUAPLUS, PROCRERAT, PTH #### [address] Protein Test strip (U) [Mass /Vol]Ordered By: Jani Aguilera on 12-02-2023 Protein (U) [Mass/Vol] Negative Negative [facility] Protein [Mass/volume] in Uri neOrdered By: Jani Aguilera on 12-02-2023 Protein (U) [Mass/Vol] 13 mg/dL High 0-9 [facility] Comment on above: Performed By: #### M G, RENAL, CUU, [id number], CBCNO, URIC, ADDONUAPLUS, PROCRERAT, PTH #### [address] Renal Function Panelon 12-01 Albumin [Mass/Vol] 4.1 g/dL Normal 3.5-5.7 [facility] Comment on above: Performed By: #### M G, RENAL, CUU, [id number], CBCNO, URIC, ADDONUAPLUS, PROCRERAT, PTH #### [facility] [address] GFR/1.73 sq M.predicted MDRD (S/P/Bld) [Vol rate/Area] 50.963 mL/min/{1.73_m2} Normal [facility] Comment on above: Performed By: #### M G, RENAL, CUU, [id number], CBCNO, URIC, ADDONUAPLUS, PROCRERAT, PTH #### [address] Serum or plasma anion gap de terminationOrdered By: Jani Aguilera on 12-02-2023 Anion gap [Moles/Vol] 10.8 mmol/L Normal 6.0-15.0 [facility] Comment on above: Performed By: #### M G, RENAL, CUU, [id number], CBCNO, URIC, ADDONUAPLUS, PROCRERAT, PTH #### [address] Sodium [Moles/volume] in Ser um or PlasmaOrdered By: Jani Aguilera on 12-02-2023 Sodium [Moles/Vol] 141 mmol/L Normal 136-145 [facility] Comment on above: Performed By: #### M G, RENAL, CUU, [id number], CBCNO, URIC, ADDONUAPLUS, PROCRERAT, PTH #### [facility] [address] [place] [address] Specific gravity Test strip (U) [Rel density]Ordered By: Jani Aguilera on 12-02-2023 Specific gravity (U) [Rel density] 1.018 1.001-1.03 0 [facility] Urate [Mass/volume] in Serum or PlasmaOrdered By: Jani Aguilera on 12-02-2023 Urate [Mass/Vol] 7.3 mg/dL High 2.3-6.6 [facility] Comment on above: Performed By: #### B MP, ALT, AST, LIPID #### [facility] [address] Urea nitrogen [Mass/volume] in Serum or PlasmaOrdered By: Jani Willy on 12-02-2023 Urea nitrogen [Mass/Vol] 12 mg/dL Normal 7-25 [facility] Comment on above: Performed By: #### M G, RENAL, CUU, [id number], CBCNO, URIC, ADDONUAPLUS, PROCRERAT, PTH #### [facility] [address] Urine Cultureon 12-02-2023 Bacteria identified Cx Nom (U) 20,000 colonies/ml mixed bacterial skin contaminants 2 Days PERFORMED BY: [place] [address] PATHOLOGIST CATEGORY MANAGER SHELLI CHARLES M.D. Normal [facility] Comment on above: Performed By: #### B MP, ALT, AST, LIPID #### [facility] [address] [place] [address] Urine appearanceOrdered By: Jani Aguilera on 12-02-2023 Appearance (U) Clear Normal Clear [facility] Comment on above: Order Comment: Name Collection Type:: Clean-Voided Midstream Performed By: #### M G, RENAL, CUU, [id number], CBCNO, URIC, ADDONUAPLUS, PROCRERAT, PTH #### [facility] [address] Urine protein/creatinine rat ioOrdered By: Jani Willy on 12-02-2023 Protein/Creatinine (U) [Ratio] 124 mg/g{Cre} 0-200 [facility] Urobilinogen Test strip (U) [Mass/Vol]Ordered By: Jani Willy on 12-02-2023 Urobilinogen (U) [Mass/Vol] 2 mg/dL High Normal [facility] Vitamin D 25 Hydroxy Totalon 12-02-2023 Vitamin D 25 Hydroxy Total 41.2 ng/mL Normal 30-100 [facility] Comment on above: Result Comment: FABRICIO MIN D STATUS 25(OH)VITAMIN D RANGE (ng/mL) Deficient <20 Insufficient 20 to <30 Sufficient 30 to 100 Reference: [place] Wells, Alber HERNANDEZ, et al. Evaluation,treatment, and prevention of vitamin D deficiency; an Endocrine Society clinical practice guideline. JCEM. 2010; 96(7):191-. PERFORMED BY: [place] [address] PATHOLOGIST CATEGORY MANAGER SHELLI CHARLES M.D. Performed By: #### B MP, ALT, AST, LIPID #### [address] Vitamin D+Metabolites [Mass/ volume] in Serum or PlasmaOrdered By: Jani Aguilera on 12-02-2023 Vitamin D+Metabolites [Mass/Vol] 41.2 ng/mL 30-100 [facility] Comment on above: VITAMIN D STATUS 25( OH)VITAMIN D RANGE (ng/mL) Deficient <20 Insufficient 20 to <30Sufficient 30 to 100Reference: [place] Wells, Alber HERNANDEZ, et al. Evaluation,treatment, and prevention of vitamin D deficiency; an Endocrine Society clinical practice guideline. JCEM. 2010; 96(7):1911-. pH of Urine by Test stripOrd ered By: Jani Aguilera on 12-02-2023 pH (U) 7.0 [pH] Normal 5.0-9.0 [facility] Comment on above: Order Comment: Name Collection Type:: Clean-Voided Midstream Performed By: #### M G, RENAL, CUU, [id number], CBCNO, URIC, ADDONUAPLUS, PROCRERAT, PTH #### [facility] [address] [place] [address] XR chest 2V*on 11-08-2023 XR chest 2V* [facility] [place] [address] [place] [address] XRay Report Signed Patient: Katarina Camara MR#: [id number] 51 : 1945 Acct:[id number] Age/Sex: 78 / F ADM Date: 11/08/23 Loc: [facility] Room: Type: [facility] Attending Dr: Hilario Gallo DO Copies to: Hilario Gallo DO Ordering Provider: Hilario Gallo DO Date of Service: 11/08/23 XR/XR chest 2V*: R05.9 - Cough, unspecified PA AND LATERAL CHEST: CLINICAL HISTORY: Nonproductive cough COMPARISON: 06/10/2022 There is no focal parenchymal consolidation, effusion or pneumothorax. The cardiac, hilar and mediastinal silhouettes are within normal limits. There is no vascular congestion. The visualized bony thorax is intact. There is slight levoscoliotic curvature and endplate spurring at this spine. Degenerative changes are present at the shoulders. XR/XR chest 2V* IMPRESSION: NO ACUTE CARDIOPULMONARY ABNORMALITY. Impression dictated by: Eloina Camacho M.D.11/08/2023 3:08 PM Dictation Location: [place] [address] Transcribed By: [facility] 11/08/23 1508 Dictated By: Eloina Camacho MD 11/08/23 1507 Signed By: 11/08/23 1508 Normal [facility] CBC W Auto Differential pane l (Bld)on 05-13-2023 Basophils (Bld) [#/Vol] 0.04 10*3/uL Normal <0.11 [facility] Comment on above: Order Comment: Hortencia harper Type: BLOOD SPECIMEN Ordering Facility: [facility] Address: [address] [place] [address] Performed By: #### 5 7021-8 #### [facility] CLIA [id number] [address] [place] [address] Basophils/100 WBC (Bld) 0.7 % Normal [facility] Comment on above: Order Comment: Hortencia harper Type: BLOOD SPECIMEN Ordering Facility: [facility] Address: [address] [place] [address] Performed By: #### 5 7021-8 #### [facility] CLIA [id number] [address] [place] [address] Differential cell count method Nom (Bld) Auto Normal [facility] Comment on above: Order Comment: Speci men Type: BLOOD SPECIMEN Ordering Facility: [facility] Address: [address] [place] [address] Performed By: #### 5 7021-8 #### [facility] CLIA [id number] [address] [place] [address] Eosinophils (Bld) [#/Vol] 0.14 10*3/uL Normal <0.46 [facility] Comment on above: Order Comment: Speci men Type: BLOOD SPECIMEN Ordering Facility: [facility] Address: [address] [place] [address] Performed By: #### 5 7021-8 #### [facility] CLIA [id number] [address] [place] [address] Eosinophils/100 WBC (Bld) 2.4 % Normal [facility] Comment on above: Order Comment: Speci men Type: BLOOD SPECIMEN Ordering Facility: [facility] Address: [address] [place] [address] Performed By: #### 5 7021-8 #### [facility] CLIA [id number] [address] [place] [address] Erythrocyte distribution width (RBC) [Ratio] 12.6 % Normal 11.5-15.0 [facility] Comment on above: Order Comment: Speci men Type: BLOOD SPECIMEN Ordering Facility: [facility] Address: [address] [place] [address] Performed By: #### 5 7021-8 #### [facility] CLIA [id number] [address] [place] [address] Hematocrit (Bld) [Volume fraction] 46.9 % High 36.0-46.0 [facility] Comment on above: Order Comment: Speci men Type: BLOOD SPECIMEN Ordering Facility: [facility] Address: [address] [place] [address] Performed By: #### 5 7021-8 #### [facility] CLIA [id number] [address] [place] [address] Hemoglobin (Bld) [Mass/Vol] 15.2 g/dL Normal 11.5-15.5 [facility] Comment on above: Order Comment: Speci men Type: BLOOD SPECIMEN Ordering Facility: [facility] Address: [address] [place] [address] Performed By: #### 5 7021-8 #### [facility] CLIA [id number] [address] [place] [address] Immature granulocytes (Bld) [#/Vol] 10*3/uL Normal <0.10 [facility] Comment on above: Order Comment: Speci men Type: BLOOD SPECIMEN Ordering Facility: [facility] Address: [address] [place] [address] Performed By: #### 5 7021-8 #### [facility] CLIA [id number] [address] [place] [address] Immature granulocytes/100 WBC (Bld) 0.2 % Normal [facility] Comment on above: Order Comment: Speci men Type: BLOOD SPECIMEN Ordering Facility: [facility] Address: [address] [place] [address] Performed By: #### 5 7021-8 #### [facility] CLIA [id number] [address] [place] [address] Lymphocytes (Bld) [#/Vol] 1.77 10*3/uL Normal 1.00-4.00 [facility] Comment on above: Order Comment: Speci men Type: BLOOD SPECIMEN Ordering Facility: [facility] Address: [address] [place] [address] Performed By: #### 5 7021-8 #### [facility] CLIA [id number] [address] [place] [address] Lymphocytes/100 WBC (Bld) 30.6 % Normal [facility] Comment on above: Order Comment: Speci men Type: BLOOD SPECIMEN Ordering Facility: [facility] Address: [address] [place] [address] Performed By: #### 5 7021-8 #### [facility] CLIA [id number] [address] [place] [address] MCH (RBC) [Entitic mass] 29.4 pg Normal 26.0-34.0 [facility] Comment on above: Order Comment: Speci men Type: BLOOD SPECIMEN Ordering Facility: [facility] Address: [address] [place] [address] Performed By: #### 5 7021-8 #### [facility] CLIA [id number] [address] [place] [address] MCHC (RBC) [Mass/Vol] 32.4 g/dL Normal 30.5-36.0 [facility] Comment on above: Order Comment: Speci men Type: BLOOD SPECIMEN Ordering Facility: [facility] Address: [address] [place] [address] Performed By: #### 5 7021-8 #### [facility] CLIA [id number] [address] [place] [address] MCV (RBC) [Entitic vol] 90.7 fL Normal 80.0-100.0 [facility] Comment on above: Order Comment: Speci men Type: BLOOD SPECIMEN Ordering Facility: [facility] Address: [address] [place] [address] Performed By: #### 5 7021-8 #### [facility] CLIA [id number] [address] [place] [address] Monocytes (Bld) [#/Vol] 0.50 10*3/uL Normal <0.87 [facility] Comment on above: Order Comment: Speci men Type: BLOOD SPECIMEN Ordering Facility: [facility] Address: [address] [place] [address] Performed By: #### 5 7021-8 #### [facility] CLIA [id number] [address] [place] [address] Monocytes/100 WBC (Bld) 8.6 % Normal [facility] Comment on above: Order Comment: Speci men Type: BLOOD SPECIMEN Ordering Facility: [facility] Address: [address] [place] [address] Performed By: #### 5 7021-8 #### [facility] CLIA [id number] [address] [place] [address] Neutrophils (Bld) [#/Vol] 3.33 10*3/uL Normal 1.45-7.50 [facility] Comment on above: Order Comment: Speci men Type: BLOOD SPECIMEN Ordering Facility: [facility] Address: [address] [place] [address] Performed By: #### 5 7021-8 #### [facility] CLIA [id number] [address] [place] [address] Neutrophils/100 WBC (Bld) 57.5 % Normal [facility] Comment on above: Order Comment: Speci men Type: BLOOD SPECIMEN Ordering Facility: [facility] Address: [address] [place] [address] Performed By: #### 5 7021-8 #### [facility] CLIA [id number] [address] [place] [address] Nucleated RBC (Bld) [#/Vol] 10*3/uL Normal <0.01 [facility] Comment on above: Order Comment: Speci men Type: BLOOD SPECIMEN Ordering Facility: [facility] Address: [address] [place] [address] Performed By: #### 5 7021-8 #### [facility] CLIA [id number] [address] [place] [address] Nucleated RBC/100 WBC (Bld) [Ratio] 0.0 /100 WBC Normal [facility] Comment on above: Order Comment: Speci men Type: BLOOD SPECIMEN Ordering Facility: [facility] Address: [address] [place] [address] Performed By: #### 5 7021-8 #### [facility] CLIA [id number] [address] [place] [address] Platelet mean volume (Bld) [Entitic vol] 10.4 fL Normal 9.0-12.7 [facility] Comment on above: Order Comment: Speci men Type: BLOOD SPECIMEN Ordering Facility: [facility] Address: [address] [place] [address] Performed By: #### 5 7021-8 #### [facility] CLIA [id number] [address] [place] [address] Platelets (Bld) [#/Vol] 216 10*3/uL Normal 150-400 [facility] Comment on above: Order Comment: Speci men Type: BLOOD SPECIMEN Ordering Facility: [facility] Address: [address] [place] [address] Performed By: #### 5 7021-8 #### [facility] CLIA [id number] [address] [place] [address] RBC (Bld) [#/Vol] 5.17 10*6/uL Normal 3.90-5.20 [facility] Comment on above: Order Comment: Speci men Type: BLOOD SPECIMEN Ordering Facility: [facility] Address: [address] [place] [address] Performed By: #### 5 7021-8 #### [facility] CLIA [id number] [address] [place] [address] WBC (Bld) [#/Vol] 5.79 10*3/uL Normal 3.70-11.00 [facility] Comment on above: Order Comment: Speci men Type: BLOOD SPECIMEN Ordering Facility: [facility] Address: [address] [place] [address] Performed By: #### 5 7021-8 #### [facility] CLIA [id number] [address] [place] [address] Basophils (Bld) [#/Vol] 0.04 10*3/uL <0.11 k/uL [facility] Basophils/100 WBC (Bld) 0.7 % [facility] Differential cell count method Nom (Bld) Auto [facility] Eosinophils (Bld) [#/Vol] 0.14 10*3/uL <0.46 k/uL [facility] Eosinophils/100 WBC (Bld) 2.4 % [facility] Erythrocyte distribution width (RBC) [Ratio] 12.6 % 11.5 - 15.0 % [facility] Hematocrit (Bld) [Volume fraction] 46.9 % High 36.0 - 46.0 % [facility] Hemoglobin (Bld) [Mass/Vol] 15.2 g/dL 11.5 - 15.5 g/dL [facility] Immature granulocytes (Bld) [#/Vol] <0.10 k/uL [facility] Immature granulocytes/100 WBC (Bld) 0.2 % [facility] Lymphocytes (Bld) [#/Vol] 1.77 10*3/uL 1.00 - 4.00 k/uL [facility] Lymphocytes/100 WBC (Bld) 30.6 % [facility] MCH (RBC) [Entitic mass] 29.4 pg 26.0 - 34.0 pg [facility] MCHC (RBC) [Mass/Vol] 32.4 g/dL 30.5 - 36.0 g/dL [facility] MCV (RBC) [Entitic vol] 90.7 fL 80.0 - 100.0 fL [facility] Monocytes (Bld) [#/Vol] 0.50 10*3/uL <0.87 k/uL [facility] Monocytes/100 WBC (Bld) 8.6 % [facility] Neutrophils (Bld) [#/Vol] 3.33 10*3/uL 1.45 - 7.50 k/uL [facility] Neutrophils/100 WBC (Bld) 57.5 % [facility] Nucleated RBC (Bld) [#/Vol] <0.01 k/uL [facility] Nucleated RBC/100 WBC (Bld) [Ratio] 0.0 /100 WBC [facility] Platelet mean volume (Bld) [Entitic vol] 10.4 fL 9.0 - 12.7 fL [facility] Platelets (Bld) [#/Vol] 216 10*3/uL 150 - 400 k/uL [facility] RBC (Bld) [#/Vol] 5.17 10*6/uL 3.90 - 5.20 m/uL [facility] WBC (Bld) [#/Vol] 5.79 10*3/uL 3.70 - 11.00 k/uL [facility] CNOVSPon 05-13-2023 CNOVSP Visit (SP) Office ([place]) ----- KATARINA CAMARA ([id number]) 1945 F Date Time Provider Department 05/13/23 1:00 PM RUTH ANN GUTIERRES During your visit today, we recorded the following information about you: Temperature Pulse Respiration Blood pressure 97.7 degrees 109/minute 18/minute 141/62 Weight Height 98.3 kg 1.55 m Ruth Ann Gutierres PA-C 05/13/2023 1:48 PM Signed (Elements copied from my note dated May 15, 2022, have been reviewed and updated where appropriate, and all reflect current assessment and medical decision making during today's encounter, May 13, 2023) CHIEF COMPLAINT: right lower inner breast cancer HISTORY OF PRESENT ILLNESS: Katarina Douglas Tyrone is a 77 year old woman who presents for follow [...] biopsy completed 02/2016 noted invasive ductal carcinoma ER/UT positive, HER2 negative. : Lumpectomy completed 03/21/16 noted grade 2 invasive ductal carcinoma, DCIS grade 2, 14 mm : Margins negative (discussed with the pathologist who assured negative margins but that the anterior margin was within 1.0mm anteriorly). : [place] lymph node was positive for involvement. 06/25/16 [...] bilateral- Negative March 2022: Mammogram bilateral -negative April 2023: mammogram bilateral-negative Katarina returns for a 1 year follow up. Since her last visit she has remained on Femara. Doing well. Generalized joint aches, but none are severe. She did require 3 cardiac stents placed in January 2023. Remains on Fosamax for her osteopenia although it makes her bones hurt every time she takes it. She is working at a [employer] program with [employer]. PAST MEDICAL HISTORY Diagnosis Date CHF (congestive heart failure) (HCC) Diabetes mellitus (HCC) Fibromyalgia Hypertension Hypothyroidism Invasive ductal carcinoma of right breast (HCC) ER/UT+ HER2- PAST SURGICAL HISTORY Procedure Laterality Date APPENDECTOMY BREAST BIOPSY CHOLECYSTECTOMY HX HYSTERECTOMY HX PAST SURGICAL HISTORY OF Left cyst removed from ovary TOTAL HIP REPLACEMENT Right Review of Social History includes: Social History Tobacco Use Smoking status: Former Packs/day: 1.00 Years: 15.00 Additional pack years: 0.00 Total pack years: 15.00 Types: Cigarettes Quit date: 06/30/1995 Years since quittin.8 Passive exposure: Past Smokeless tobacco: Never Vaping Use Vaping Use: Never used Substance Use Topics Alcohol use: No Drug use: No FAMILY HISTORY Problem Relation Age of Onset other (Bladder Cancer) Brother Current Outpatient Medications Medication Sig letrozole (FEMARA) 2.5 mg tablet take 1 tablet by mouth every day alendronate (FOSAMAX) 70 mg tablet Take 70 [...] Take 1 mg by mouth once daily. No current facility-administered medications for this visit. REVIEW OF SYSTEMS: CONSTITUTIONAL: No recent fevers or chills MUSC-SKEL: generalized aches, knees are the worse PSY: Denies depression or anxiety Cardiovasc (more content not included)... Normal [facility] Comprehensive metabolic 2000 panelon 05-13-2023 Albumin [Mass/Vol] 4.7 g/dL Normal 3.9-4.9 [facility] Comment on above: Order Comment: Speci men Type: BLOOD SPECIMEN Ordering Facility: [facility] Address: [address] [place] [address] Performed By: #### 2 4323-8 #### [facility] CLIA [id number] [address] [place] [address] ALP [Catalytic activity/Vol] 77 U/L Normal 34-123 [facility] Comment on above: Order Comment: Speci men Type: BLOOD SPECIMEN Ordering Facility: [facility] Address: [address] [place] [address] Performed By: #### 2 4323-8 #### [facility] CLIA [id number] [address] [place] [address] ALT [Catalytic activity/Vol] 19 U/L Normal 7-38 [facility] Comment on above: Order Comment: Speci men Type: BLOOD SPECIMEN Ordering Facility: [facility] Address: [address] [place] [address] Performed By: #### 2 4323-8 #### [facility] CLIA [id number] [address] [place] [address] Anion gap [Moles/Vol] 12 mmol/L Normal 9-18 [facility] Comment on above: Order Comment: Speci men Type: BLOOD SPECIMEN Ordering Facility: [facility] Address: [address] [place] [address] Performed By: #### 2 4323-8 #### [facility] CLIA [id number] [address] [place] [address] AST [Catalytic activity/Vol] 24 U/L Normal 13-35 [facility] Comment on above: Order Comment: Speci men Type: BLOOD SPECIMEN Ordering Facility: [facility] Address: [address] [place] [address] Performed By: #### 2 4323-8 #### [facility] CLIA [id number] [address] [place] [address] Bilirubin [Mass/Vol] 1.2 mg/dL Normal 0.2-1.3 [facility] Comment on above: Order Comment: Speci men Type: BLOOD SPECIMEN Ordering Facility: [facility] Address: [address] [place] [address] Performed By: #### 2 4323-8 #### [facility] CLIA [id number] [address] [place] [address] Calcium [Mass/Vol] 10.1 mg/dL Normal 8.5-10.2 [facility] Comment on above: Order Comment: Speci men Type: BLOOD SPECIMEN Ordering Facility: [facility] Address: [address] [place] [address] Performed By: #### 2 4323-8 #### [facility] CLIA [id number] [address] [place] [address] Chloride [Moles/Vol] 100 mmol/L Normal 97-105 [facility] Comment on above: Order Comment: Speci men Type: BLOOD SPECIMEN Ordering Facility: [facility] Address: [address] [place] [address] Performed By: #### 2 4323-8 #### [facility] CLIA [id number] [address] [place] [address] CO2 [Moles/Vol] 30 mmol/L Normal 22-30 [facility] Comment on above: Order Comment: Speci men Type: BLOOD SPECIMEN Ordering Facility: [facility] Address: [address] [place] [address] Performed By: #### 2 4323-8 #### [facility] CLIA [id number] [address] [place] [address] Creatinine [Mass/Vol] 1.18 mg/dL High 0.58-0.96 [facility] Comment on above: Order Comment: Speci men Type: BLOOD SPECIMEN Ordering Facility: [facility] Address: [address] [place] [address] Performed By: #### 2 4323-8 #### [facility] CLIA [id number] [address] [place] [address] Creatinine and Glomerular filtration rate.predicted panel (S/P/Bld) 48 mL/min/1.73m??? Low >=60 [facility] Comment on above: Order Comment: Speci men Type: BLOOD SPECIMEN Ordering Facility: [facility] Address: [address] [place] [address] Result Comment: Cathy mated Glomerular Filtration Rate [...] GFR. Performed By: #### 2 4323-8 #### [facility] CLIA [id number] [address] [place] [address] Glucose [Mass/Vol] 120 mg/dL High 74-99 [facility] Comment on above: Order Comment: Speci men Type: BLOOD SPECIMEN Ordering Facility: [facility] Address: [address] [place], [place] [id number] Result Comment: The [place] Diabetes Association (ADA) provides guidance for cutoff [...] Standards of Medical Care in Diabetes 2016, [place] [employer]. Diabetes Care. 2016.39(Suppl 1). Performed By: #### 2 4323-8 #### [facility] CLIA [id number] [address] [place] [address] Potassium [Moles/Vol] 3.5 mmol/L Low 3.7-5.1 [facility] Comment on above: Order Comment: Speci men Type: BLOOD SPECIMEN Ordering Facility: [facility] Address: [address] [place] [address] Performed By: #### 2 4323-8 #### [facility] CLIA [id number] [address] [place] [address] Protein [Mass/Vol] 7.1 g/dL Normal 6.3-8.0 [facility] Comment on above: Order Comment: Speci men Type: BLOOD SPECIMEN Ordering Facility: [facility] Address: [address] [place] [address] Performed By: #### 2 4323-8 #### [facility] CLIA [id number] [address] [place] [address] Sodium [Moles/Vol] 142 mmol/L Normal 136-144 [facility] Comment on above: Order Comment: Speci men Type: BLOOD SPECIMEN Ordering Facility: [facility] Address: [address] [place] [address] Performed By: #### 2 4323-8 #### [facility] CLIA [id number] [address] [place] [address] Urea nitrogen [Mass/Vol] 12 mg/dL Normal 7-21 [facility] Comment on above: Order Comment: Speci men Type: BLOOD SPECIMEN Ordering Facility: [facility] Address: [address] [place] [address] Performed By: #### 2 4323-8 #### [facility] CLIA [id number] [address] [place] [address] Albumin [Mass/Vol] 4.7 g/dL 3.9 - 4.9 g/dL [facility] ALP [Catalytic activity/Vol] 77 U/L 34 - 123 U/L [facility] ALT [Catalytic activity/Vol] 19 U/L 7 - 38 U/L [facility] Anion gap [Moles/Vol] 12 mmol/L 9 - 18 mmol/L [facility] AST [Catalytic activity/Vol] 24 U/L 13 - 35 U/L [facility] Bilirubin [Mass/Vol] 1.2 mg/dL 0.2 - 1 .3 mg/dL [facility] Calcium [Mass/Vol] 10.1 mg/dL 8.5 - 10. 2 mg/dL [facility] Chloride [Moles/Vol] 100 mmol/L 97 - 10 5 mmol/L [facility] CO2 [Moles/Vol] 30 mmol/L 22 - 30 mmol/L [facility] Creatinine [Mass/Vol] 1.18 mg/dL High 0.58 - 0.96 mg/dL [facility] Estimated Glomerular Filtration Rate 48 mL/min/1.73m Low >=60 mL/min/1.7 3m [facility] Glucose [Mass/Vol] 120 mg/dL High 74 - 99 mg/dL [facility] Potassium [Moles/Vol] 3.5 mmol/L Low 3.7 - 5.1 mmol/L [facility] Protein [Mass/Vol] 7.1 g/dL 6.3 - 8.0 g/dL [facility] Sodium [Moles/Vol] 142 mmol/L 136 - 144 mmol/L [facility] Urea nitrogen [Mass/Vol] 12 mg/dL 7 - 21 mg/dL [facility] CNPNon 05-06-2023 CNPN Telephone (HEMASA) ----- KATARINA CAMARA ([id number]) 1945 F Date Time Provider Department 05/06/23 ROSA TURNER During your visit today, we recorded the following information about you: Taylor Barnett 05/06/2023 11:[address] labs for follow up on 05/13 per last note. Taylor Barnett Allergies As of Date: 05/06/2023 Noted Allergy Reaction IBUPROFEN 03/13/2016 5 - Intolerance LYRICA (PREGABALIN) 05/13/2020 1 - Mental Status Change DELETED: SULFA (SULFONAMIDE ANTIB*03/14/2016 11 - Vomiting VIOXX (ROFECOXIB) 04/02/2016 7 - Swelling Date Reviewed: 05/06/2023 Reviewed by: Ruth Ann Gutierres PAIkerC - Fully Assessed Reason for Visit: Lab Orders [1688] Primary Visit Diagnosis:Malignant neoplasm of lower-inner quadrant of right breast of female, estrogen receptor positive (HCC) [C50.311, Z17.0] Order(s):COMP METABOLIC PANEL [SQCMP] Order #: [id number] FUTURE CBC + DIFF [SQCBCDIF] Order #: [id number] FUTURE Prescriptions as of 05/14/2023 - indapamide (LOZOL) 1.25 mg tablet Take 1.25 mg by mouth every morning. - cetirizine HCl/pseudoephedrine (ZYRTEC-D ORAL) Take by mouth. - letrozole (FEMARA) 2.5 mg tablet take 1 tablet by mouth every day - alendronate (FOSAMAX) 70 mg tablet Take 70 mg by mouth one time a week. - cholecalciferol, vitamin D3, (VITAMIN D3 ORAL) Refills(s) 0 - rosuvastatin (CRESTOR) 20 mg tablet Take 20 mg by mouth once daily. For 30 days - furosemide (LASIX) 20 mg tablet - POTASSIUM ORAL Take by mouth. - BACLOFEN ORAL Take by mouth as needed. - carvedilol (COREG) 6.25 mg tablet Take 6.25 mg by mouth twice daily. - VENTOLIN HFA 90 mcg/actuation inhaler INHALE 2 PUFFS BY MOUTH EVERY 6 HOURS NEEDED - levothyroxine (SYNTHROID) 112 mcg tablet Take 112 mcg by mouth once daily. - traMADol (ULTRAM) 50 mg tablet Take 50 mg by mouth as needed. - montelukast (SINGULAIR) 10 mg tablet Take 10 mg by mouth daily at bedtime. - ASCORBIC ACID/MULTIVIT-MIN (EMERGEN-C ORAL) Take by mouth. - ramipril (ALTACE) 10 mg capsule Take 10 mg by mouth once daily. - aspirin 81 mg cap Take 325 mg by mouth once daily. - DULoxetine (CYMBALTA) 60 mg capsule Take 60 mg by mouth once daily. - folic acid 1 mg tablet Take 1 mg by mouth once daily. Problem List As Of Date 05/06/2023 Noted Resolved Malignant neoplasm of right female breast (HCC)*04/02/2016 Obesity, Class III, BMI >= 40 (morbid obesity) *07/17/2016 History of breast cancer [Z85.3] 03/28/2018 Encounter Status:Closed by TAYLOR BANRETT on 05/14/23 Normal [facility] Alanine aminotransferase [En zymatic activity/volume] in Serum or PlasmaOrdered By: Nani Calloway on 04-16-2023 ALT [Catalytic activity/Vol] 16 U/L Normal 7 [facility] Comment on above: Performed By: #### B MP, ALT, AST, LIPID #### [facility] [address] Aspartate aminotransferase [ Enzymatic activity/volume] in Serum or PlasmaOrdered By: Nani Calloway on 04-16-2023 AST [Catalytic activity/Vol] 21 U/L Normal 13-39 [facility] Comment on above: Performed By: #### B MP, ALT, AST, LIPID #### [facility] [address] Basic Metabolic Panelon 04-04 GFR/1.73 sq M.predicted MDRD (S/P/Bld) [Vol rate/Area] 55.410 mL/min/{1.73_m2} Normal [facility] Comment on above: Performed By: #### B MP, ALT, AST, LIPID #### [facility] [address] [place] [address] Calcium [Mass/volume] in Ser um or PlasmaOrdered By: Nani Calloway on 04-16-2023 Calcium [Mass/Vol] 9.9 mg/dL Normal 8.6-10.3 [facility] Comment on above: Performed By: #### B MP, ALT, AST, LIPID #### [facility] [address] [place] [address] Carbon dioxide, total [Moles /volume] in Serum or PlasmaOrdered By: Nani Calloawy on 04-16-2023 CO2 [Moles/Vol] 33.6 mmol/L High 21.0-31.0 [facility] Comment on above: Performed By: #### B MP, ALT, AST, LIPID #### [facility] [address] [place] [address] [place] Chloride [Moles/volume] in S live or PlasmaOrdered By: Nani Calloway on 04-16-2023 Chloride [Moles/Vol] 99 mmol/L Normal 98-107 [facility] Comment on above: Performed By: #### B MP, ALT, AST, LIPID #### [facility] [address] [place] [address] Cholesterol [Mass/volume] in Serum or PlasmaOrdered By: Nani Calloway on 04-16-2023 Cholesterol [Mass/Vol] 139 mg/dL Low 140-200 [facility] Comment on above: Chol less than 200 m g/dl low riskChol 201-239 mg/dl borderline riskChol 240 mg/dl and greater high risk Result Comment: Chol less than 200 mg/dl low risk Chol 201-239 mg/dl borderline risk Chol 240 mg/dl and greater high risk Performed By: #### B MP, ALT, AST, LIPID #### [facility] [address] Cholesterol in LDL Calc [Mas s/Vol]Ordered By: Nani Calloway on 04-16-2023 Cholesterol in LDL [Mass/Vol] 52 mg/dL 0-100 [facility] Comment on above: LDL ATP III CLASSIFI CATIONLDL less than 100 mg/dL OptimalLDL 100-129 mg/dL Near or above optimalLDL 130-159 mg/dL Borderline highLDL 160-189 mg/dL HighLDL greater than 189 mg/dL Very high Cholesterol in VLDL Calc [Ma ss/Vol]Ordered By: Nani Calloway on 04-16-2023 Cholesterol in VLDL [Mass/Vol] 42 mg/dL [facility] Creatinine [Mass/volume] in Serum or PlasmaOrdered By: Nani Calloway on 04-16-2023 Creatinine [Mass/Vol] 1.05 mg/dL Normal 0.60-1.20 [facility] Comment on above: Performed By: #### B MP, ALT, AST, LIPID #### [facility] [address] Glucose [Mass/volume] in Ser um or PlasmaOrdered By: Nani Calloway on 04-16-2023 Glucose [Mass/Vol] 112 mg/dL High 70-100 [facility] Comment on above: ADA recommended refe rence rangeRandom Glucose Reference Range is dependent on time and content of last meal. Glucose of more than 200 mg/dL in a nonstressed, ambulatory subject supports the diagnosis of Diabetes Mellitus. Result Comment: [place] om Glucose Reference Range is dependent on time and content of last meal. Glucose of more than 200 mg/dL in a nonstressed, ambulatory subject supports the diagnosis of Diabetes Mellitus. ADA recommended reference range Performed By: #### B MP, ALT, AST, LIPID #### [facility] [address] Lipid Panelon 04-16-2023 LDL Cholesterol,Calculated 52 mg/dL Normal 0-100 [facility] Comment on above: Result Comment: LDL ATP III CLASSIFICATION LDL less than 100 mg/dL Optimal LDL 100-129 mg/dL Near or above optimal LDL 130-159 mg/dL Borderline high LDL 160-189 mg/dL High LDL greater than 189 mg/dL Very high Performed By: #### B MP, ALT, AST, LIPID #### [facility] [address] Triglyceride w/Reflex 212 mg/dL High 0-149 [facility] Comment on above: Result Comment: TRIG ATP III CLASSIFICATION TRIG less than 150 mg/dL Normal TRIG 150-199 mg/dL Borderline high TRIG 200-500 mg/dL High TRIG greater than 500 mg/dL Very high Standard traceable to the Center for Disease Conrtrol and Prevention (CDC) test method. Performed By: #### B MP, ALT, AST, LIPID #### [facility] [address] [place] [address] VLDL CHOLESTEROL 42 mg/dL Normal [facility] Comment on above: Performed By: #### B MP, ALT, AST, LIPID #### [facility] [address] [place] [address] No Panel InformationOrdered By: Nani Calloway on 04-16-2023 Estimated GFR (CKD-EPI) 55.410 mL/Min [facility] Creatinine Clearance (Chem N/A [facility] Potassium [Moles/volume] in Serum or PlasmaOrdered By: Nani Calloway on 04-16-2023 Potassium [Moles/Vol] 4.0 mmol/L Normal 3.5-5.1 [facility] Comment on above: Performed By: #### B MP, ALT, AST, LIPID #### [facility] [address] Serum or plasma anion gap de terminationOrdered By: Nani Calloway on 04-16-2023 Anion gap [Moles/Vol] 10.4 mmol/L Normal 6.0-15.0 [facility] Comment on above: Performed By: #### B MP, ALT, AST, LIPID #### [facility] [address] Serum or plasma high density lipoprotein (HDL) cholesterol measurementOrdered By: Nani Calloway on 04-16-2023 Cholesterol in HDL [Mass/Vol] 45 mg/dL Normal 23-92 [facility] Comment on above: HDL CHOL ATP-III CLA SSIFICATION Cardiovascular RiskHDL > or equal to 60 mg/dL LOWHDL < 40 mg/dL HIGH Result Comment: HDL CHOL ATP-III CLASSIFICATION Cardiovascular Risk HDL > or equal to 60 mg/dL LOW HDL < 40 mg/dL HIGH Performed By: #### B MP, ALT, AST, LIPID #### [facility] [address] Serum or plasma total choles terol/high density lipoprotein (HDL) cholesterol mass ratOrdered By: Nani Calloway on 04-16-2023 Cholesterol.total/Chol esterol in HDL [Mass ratio] 3.1 {ratio} Normal <5.0 [facility] Comment on above: Result Comment: PERF ORMED BY: [place] [address] PATHOLOGIST CATEGORY MANAGER SHELLI CHARLES M.D. Performed By: #### B MP, ALT, AST, LIPID #### [address] Sodium [Moles/volume] in Ser um or PlasmaOrdered By: Nani Calloway on 04-16-2023 Sodium [Moles/Vol] 139 mmol/L Normal 136-145 [facility] Comment on above: Performed By: #### B MP, ALT, AST, LIPID #### [facility] [address] Triglyceride [Mass/volume] i n Serum or PlasmaOrdered By: Nani Calloway on 04-16-2023 Triglyceride [Mass/Vol] 212 mg/dL 0-149 [facility] Comment on above: TRIG ATP III CLASSIF ICATIONTRIG less than 150 mg/dL NormalTRIG 150-199 mg/dL Borderline highTRIG 200-500 mg/dL High TRIG greater than 500 mg/dL Very highStandard traceable to the Center for Disease Conrtrol and Prevention (CDC) test method. Urea nitrogen [Mass/volume] in Serum or PlasmaOrdered By: Nani Calloway on 04-16-2023 Urea nitrogen [Mass/Vol] 16 mg/dL Normal 7-25 [facility] Comment on above: Performed By: #### B MP, ALT, AST, LIPID #### [facility] [address] Alanine aminotransferase [En zymatic activity/volume] in Serum or PlasmaOrdered By: Tamiko Zhou on 01-18-2023 ALT [Catalytic activity/Vol] 12 U/L 7-52 [facility] Albumin [Mass/volume] in Ser um or Plasma by Bromocresol green (BCG) dye binding methoOrdered By: Tamiko Zhou on 01-18-2023 Albumin BCG dye [Mass/Vol] 3.6 g/dL 3.5-5.7 [facility] Alkaline phosphatase [Enzyma tic activity/volume] in Serum or PlasmaOrdered By: Tamiko Zhou on 01-18-2023 ALP [Catalytic activity/Vol] 59 U/L 34-104 [facility] Aspartate aminotransferase [ Enzymatic activity/volume] in Serum or PlasmaOrdered By: Tamiko Zhou on 01-18-2023 AST [Catalytic activity/Vol] 18 U/L 13-39 [facility] Bilirubin.total [Mass/volume ] in Serum or PlasmaOrdered By: Tamiko Zhou on 01-18-2023 Bilirubin [Mass/Vol] 1.1 mg/dL 0.3-1.0 [facility] Calcium [Mass/volume] in Ser um or PlasmaOrdered By: Tamiko Zhou on 01-18-2023 Calcium [Mass/Vol] 8.1 mg/dL 8.6-10.3 [facility] Carbon dioxide, total [Moles /volume] in Serum or PlasmaOrdered By: Tamiko Zhou on 01-18-2023 CO2 [Moles/Vol] 27.6 mmol/L 21.0-31.0 [facility] Chloride [Moles/volume] in S live or PlasmaOrdered By: Tamiko Zhou on 01-18-2023 Chloride [Moles/Vol] 101 mmol/L 98-107 [facility] Creatinine [Mass/volume] in Serum or PlasmaOrdered By: Tamiko Zhou on 01-18-2023 Creatinine [Mass/Vol] 0.84 mg/dL 0.60-1.20 [facility] Globulin Calc (S) [Mass/Vol] Ordered By: Tamiko Zhou on 01-18-2023 Globulin (S) [Mass/Vol] 2.1 g/dL [facility] Glucose [Mass/volume] in Ser um or PlasmaOrdered By: Tamiko Zhou on 01-18-2023 Glucose [Mass/Vol] 115 mg/dL 70-100 [facility] Comment on above: ADA recommended refe rence rangeRandom Glucose Reference Range is dependent on time and content of last meal. Glucose of more than 200 mg/dL in a nonstressed, ambulatory subject supports the diagnosis of Diabetes Mellitus. No Panel InformationOrdered By: Tamiko Zhou on 01-18-2023 Estimated GFR (CKD-EPI) > 60.0 mL/Min [facility] Creatinine Clearance (Chem 64.28 [facility] Potassium [Moles/volume] in Serum or PlasmaOrdered By: Tamiko Zhou on 01-18-2023 Potassium [Moles/Vol] 3.3 mmol/L 3.5-5.1 [facility] Protein [Mass/volume] in Ser um or PlasmaOrdered By: Tamiko Zhou on 01-18-2023 Protein [Mass/Vol] 5.7 g/dL 6.4-8.9 [facility] Serum or plasma albumin/glob ulin mass ratioOrdered By: Tamiko Zhou on 01-18-2023 Albumin/Globulin [Mass ratio] 1.7 {ratio} [facility] Serum or plasma anion gap de terminationOrdered By: Tamiko Zhou on 01-18-2023 Anion gap [Moles/Vol] 10.7 mmol/L 6.0-15.0 [facility] Sodium [Moles/volume] in Ser um or PlasmaOrdered By: Tamiko Zhou on 01-18-2023 Sodium [Moles/Vol] 136 mmol/L 136-145 [facility] Troponin I.cardiac [Mass/vol ume] in Serum or Plasma by Detection limit <= 0.01 ng/Ordered By: Tamiko Zhou on 01-18-2023 Troponin I.cardiac DL <= 0.01 ng/mL [Mass/Vol] 91.0 pg/mL 0.0-15.0 [facility] Comment on above: Critical Result : Ca lled to and read back by: QUIANA HUERTA at: 01/18/2023 07:02:29 by:[id number] Urea nitrogen [Mass/volume] in Serum or PlasmaOrdered By: Tamiko Zhou on 01-18-2023 Urea nitrogen [Mass/Vol] 7 mg/dL 7-25 [facility] Hematocrit Auto (Bld) [Volum e fraction]Ordered By: Tamiko Zhou on 01-17-2023 Hematocrit (Bld) [Volume fraction] 40.6 % 34.0-46.4 [facility] Hemoglobin [Mass/volume] in BloodOrdered By: Tamiko Zhou on 01-17-2023 Hemoglobin (Bld) [Mass/Vol] 13.4 g/dL 11.8-15.4 [facility] Activated partial thrombopla stin time (aPTT) in platelet poor plasma by coagulation aOrdered By: Nani Calloway on 01-15-2023 aPTT Coag (PPP) [Time] 26.9 s 25.1-36.5 [facility] Comment on above: A hematocrit value g reater than 55% may lead to inaccurate results in coagulation testing. Patients having hematocrit values >55% require a special collection tube for coagulation studies. Please contact the laboratory at [phone] for redraw instructions. Basophils Auto (Bld) [#/Vol] Ordered By: Nani Calloway on 01-15-2023 Basophils (Bld) [#/Vol] 0.0 10*3/uL 0.0-0.2 [facility] Basophils/100 WBC Auto (Bld) Ordered By: Nani Calloway on 01-15-2023 Basophils/100 WBC (Bld) 0.6 % . [facility] Carbon dioxide, total [Moles /volume] in Serum or PlasmaOrdered By: Nani Calloway on 01-15-2023 CO2 [Moles/Vol] 29.9 mmol/L 21.0-31.0 [facility] Chloride [Moles/volume] in S live or PlasmaOrdered By: Nani Calloway on 01-15-2023 Chloride [Moles/Vol] 105 mmol/L 98-107 [facility] Cholesterol [Mass/volume] in Serum or PlasmaOrdered By: Nani Calloway on 01-15-2023 Cholesterol [Mass/Vol] 155 mg/dL 140-200 [facility] Comment on above: Chol less than 200 m g/dl low riskChol 201-239 mg/dl borderline riskChol 240 mg/dl and greater high risk Cholesterol in LDL Calc [Mas s/Vol]Ordered By: Nani Calloway on 01-15-2023 Cholesterol in LDL [Mass/Vol] 70 mg/dL 0-100 [facility] Comment on above: LDL ATP III CLASSIFI CATIONLDL less than 100 mg/dL OptimalLDL 100-129 mg/dL Near or above optimalLDL 130-159 mg/dL Borderline highLDL 160-189 mg/dL HighLDL greater than 189 mg/dL Very high Cholesterol in VLDL Calc [Ma ss/Vol]Ordered By: Nani Calloway on 01-15-2023 Cholesterol in VLDL [Mass/Vol] 32 mg/dL [facility] Creatinine [Mass/volume] in Serum or PlasmaOrdered By: Nani Calloway on 01-15-2023 Creatinine [Mass/Vol] 1.02 mg/dL 0.60-1.20 [facility] Eosinophils Auto (Bld) [#/Vo l]Ordered By: Nani Calloway on 01-15-2023 Eosinophils (Bld) [#/Vol] 0.2 10*3/uL 0.0-0.45 [facility] Eosinophils/100 WBC Auto (Bl d)Ordered By: Nani Calloway on 01-15-2023 Eosinophils/100 WBC (Bld) 2.5 % . [facility] Erythrocyte distribution wid th Auto (RBC) [Ratio]Ordered By: Nani Calloway on 01-15-2023 Erythrocyte distribution width (RBC) [Ratio] 14.4 % 11.9-15.3 [facility] Hematocrit Auto (Bld) [Volum e fraction]Ordered By: Nani Calloway on 01-15-2023 Hematocrit (Bld) [Volume fraction] 41.4 % 34.0-46.4 [facility] Hemoglobin [Mass/volume] in BloodOrdered By: Nani Calloway on 01-15-2023 Hemoglobin (Bld) [Mass/Vol] 13.8 g/dL 11.8-15.4 [facility] INR in Platelet poor plasma by Coagulation assayOrdered By: Nani Calloway on 01-15-2023 INR Coag (PPP) [Relative time] 0.9 {INR} [facility] Comment on above: INR Therapeutic Rang e [...] RBC Auto (Bld) [#/Vol] 7.0 10*3/uL 3.8-11.6 [facility] Lymphocytes Auto (Bld) [#/Vo l]Ordered By: Nani Calloway on 01-15-2023 Lymphocytes (Bld) [#/Vol] 1.6 10*3/uL 1.00-4.8 [facility] Lymphocytes/100 WBC Auto (Bl d)Ordered By: Nani Calloway on 01-15-2023 Lymphocytes/100 WBC (Bld) 22.8 % . [facility] MCH Auto (RBC) [Entitic mass ]Ordered By: Nani Calloway on 01-15-2023 MCH (RBC) [Entitic mass] 30.5 pg 24.7-34.3 [facility] MCHC Auto (RBC) [Mass/Vol]Or dered By: Nani Calloway on 01-15-2023 MCHC (RBC) [Mass/Vol] 33.4 g/dL 32.0-35.0 [facility] MCV Auto (RBC) [Entitic vol] Ordered By: Nani Calloway on 01-15-2023 MCV (RBC) [Entitic vol] 91.4 fL 80-100 [facility] Monocytes Auto (Bld) [#/Vol] Ordered By: Nani Calloway on 01-15-2023 Monocytes (Bld) [#/Vol] 0.6 10*3/uL 0.0-0.8 [facility] Monocytes/100 WBC Auto (Bld) Ordered By: Nani Calloway on 01-15-2023 Monocytes/100 WBC (Bld) 8.3 % . [facility] Neutrophils Auto (Bld) [#/Vo l]Ordered By: Nani Calloway on 01-15-2023 Neutrophils (Bld) [#/Vol] 4.6 10*3/uL 1.8-7.7 [facility] Neutrophils/100 WBC Auto (Bl d)Ordered By: Nani Calloway on 01-15-2023 Neutrophils/100 WBC (Bld) 65.8 % . [facility] No Panel InformationOrdered By: Nani Calloway on 01-15-2023 Estimated GFR (CKD-EPI) 57.371 mL/Min [facility] Creatinine Clearance (Chem N/A [facility] Nucleated erythrocytes [Pres ence] in Blood by Automated countOrdered By: Nani Calloway on 01-15-2023 Nucleated RBC Auto Ql (Bld) 0.2 /100{WBC} 0-0.5 [facility] Platelet mean volume Auto (B ld) [Entitic vol]Ordered By: Nani Calloway on 01-15-2023 Platelet mean volume (Bld) [Entitic vol] 8.8 fL 6.3-10.7 [facility] Platelets Auto (Bld) [#/Vol] Ordered By: Nani Calloway on 01-15-2023 Platelets (Bld) [#/Vol] 181 10*3/uL 150-450 [facility] Potassium [Moles/volume] in Serum or PlasmaOrdered By: Nani Calloway on 01-15-2023 Potassium [Moles/Vol] 4.0 mmol/L 3.5-5.1 [facility] Prothrombin time (PT)Ordered By: Nani Calloway on 01-15-2023 PT Coag (PPP) [Time] 10.3 s 9.0-12.9 [facility] Comment on above: A hematocrit value g reater than 55% may lead to inaccurate results in coagulation testing. Patients having hematocrit values >55% require a special collection tube for coagulation studies. Please contact the laboratory at [phone] for redraw instructions. RBC Auto (Bld) [#/Vol]Ordere d By: Nani Calloway on 01-15-2023 RBC (Bld) [#/Vol] 4.53 10*6/uL 3.60-5.00 [facility] Serum or plasma anion gap de terminationOrdered By: Nani Calloway on 01-15-2023 Anion gap [Moles/Vol] 9.1 mmol/L 6.0-15.0 [facility] Serum or plasma high density lipoprotein (HDL) cholesterol measurementOrdered By: Nani Calloway on 01-15-2023 Cholesterol in HDL [Mass/Vol] 53 mg/dL 23-92 [facility] Comment on above: HDL CHOL ATP-III CLA SSIFICATION Cardiovascular RiskHDL > or equal to 60 mg/dL LOWHDL < 40 mg/dL HIGH Serum or plasma total choles terol/high density lipoprotein (HDL) cholesterol mass ratOrdered By: Nani Calloway on 01-15-2023 Cholesterol.total/Chol esterol in HDL [Mass ratio] 2.9 {ratio} <5.0 [facility] Sodium [Moles/volume] in Ser um or PlasmaOrdered By: Nani Calloway on 01-15-2023 Sodium [Moles/Vol] 140 mmol/L 136-145 [facility] Triglyceride [Mass/volume] i n Serum or PlasmaOrdered By: Nani Calloway on 01-15-2023 Triglyceride [Mass/Vol] 161 mg/dL 0-149 [facility] Comment on above: TRIG ATP III CLASSIF ICATIONTRIG less than 150 mg/dL NormalTRIG 150-199 mg/dL Borderline highTRIG 200-500 mg/dL High TRIG greater than 500 mg/dL Very highStandard traceable to the Center for Disease Conrtrol and Prevention (CDC) test method. Urea nitrogen [Mass/volume] in Serum or PlasmaOrdered By: Nani Calloway on 01-15-2023 Urea nitrogen [Mass/Vol] 9 mg/dL 09-25 [facility] WBC Auto (Bld) [#/Vol]Ordere d By: Nani Calloway on 01-15-2023 WBC (Bld) [#/Vol] 7.0 10*3/uL 3.8-11.6 [facility] CARDIAC STRESS TESTon 2022 Ordered by an unspec ified provider. [facility] ECG 12 Leadon 12-25-2022 ECG reveals normal s inus rhythm with diffuse nonspecific ST and T changes [facility] Work Phone: Consultation Noteon 06-28-19 Consultation Note [id number]:12 [id number] Normal [facility] CBC AUTO DIFFon 06-11-2022 BASO # 0.1 103/ul Normal 0.0-0.1 [facility] Comment on above: Performed By: #### C BC #### [facility] [address] [place] [address] Dr. Mag Charles Basophils/100 WBC (Bld) 0.7 % Normal 0.2-2.0 [facility] Comment on above: Performed By: #### C BC #### [facility] [address] [place] [address] Dr. Mag Charles EO # 0.1 103/ul Normal 0.0-0.7 [facility] Comment on above: Performed By: #### C BC #### [facility] [address] [place] [address] Dr. Mag Charles Eosinophils/100 WBC (Bld) 1.1 % Normal 0.9-7.0 [facility] Comment on above: Performed By: #### C BC #### [facility] [address] [place] [address] Dr. Mag Charles Erythrocyte distribution width (RBC) [Ratio] 13.4 % Normal 11.0-15.0 [facility] Comment on above: Performed By: #### C BC #### [facility] [address] [place] [address] Dr. Mga Charles Hematocrit (Bld) [Volume fraction] 46.8 % Normal 36.0-48.0 [facility] Comment on above: Performed By: #### C BC #### [facility] [address] [place] [address] Dr. Mag Charles Hemoglobin (Bld) [Mass/Vol] 15.1 g/dL Normal 12.0-16.0 [facility] Comment on above: Performed By: #### C BC #### [facility] [address] [place] [address] Dr. Mag Charles IG # 0.09 10e3/ul Critically high 0.00-0.03 [facility] Comment on above: Performed By: #### C BC #### [facility] [address] [place] [address] Dr. Mag Charles IG % 0.8 % Critically high 0.0-0.5 [facility] Comment on above: Performed By: #### C BC #### [facility] [address] [place] [address] Dr. Mag Charles LYMPH # 3.8 103/ul Normal 1.2-3.8 [facility] Comment on above: Performed By: #### C BC #### [facility] [address] [place] [address] Dr. Mag Charles Lymphocytes/100 WBC (Bld) 32.7 % Normal 20.5-60.0 [facility] Comment on above: Performed By: #### C BC #### [facility] [address] [place] [address] Dr. Mag Charles MANUAL DIFF REQ NO Normal [facility] Comment on above: Performed By: #### C BC #### [facility] [address] [place] [address] Dr. Mag Charles MCH (RBC) [Entitic mass] 30.3 pg Normal 26.7-34.0 [facility] Comment on above: Performed By: #### C BC #### [facility] [address] [place] [address] Dr. Mag Charles MCHC (RBC) [Mass/Vol] 32.3 g/dL Normal 29.9-35.2 [facility] Comment on above: Performed By: #### C BC #### [facility] [address] [place] [address] Dr. Mag Charles MCV (RBC) [Entitic vol] 93.8 fL Normal 81.0-99.0 [facility] Comment on above: Performed By: #### C BC #### [facility] [address] [place] [address] Dr. Mag Charles MONO # 1.1 103/ul Critically high 0.3-0.8 [facility] Comment on above: Performed By: #### C BC #### [facility] [address] [place] [address] Dr. Mag Charles Monocytes/100 WBC (Bld) 9.2 % Normal 1.7-12.0 [facility] Comment on above: Performed By: #### C BC #### [facility] [address] [place] [address] Dr. Mag Charles NEUT # 6.5 103/ul Normal 1.4-6.5 [facility] Comment on above: Performed By: #### C BC #### [facility] [address] [place] [address] Dr. Mag Charles Neutrophils/100 WBC (Bld) 55.5 % Normal 43.0-75.0 [facility] Comment on above: Performed By: #### C BC #### [facility] [address] [place] [address] Dr. Mag Charles Platelet mean volume (Bld) [Entitic vol] 9.9 fL Normal 9.5-13.5 [facility] Comment on above: Performed By: #### C BC #### [facility] [address] [place] [address] Dr. Mag Charles PLT 237 103/ul Normal 150-450 [facility] Comment on above: Performed By: #### C BC #### [facility] [address] [place] [address] Dr. Mag Chrales RBC 4.99 106/ul Normal 4.20-5.40 [facility] Comment on above: Performed By: #### C BC #### [facility] [address] [place] [address] Dr. Mag Charles WBC 11.6 103/ul Critically high 4.0-11.0 [facility] Comment on above: Performed By: #### C BC #### [facility] [address] [place] [address] Dr. Mag Charles PROF CHEM 8 (BAS METB)on Anion gap [Moles/Vol] 10.2 mmol/L Normal [facility] Comment on above: Performed By: #### C VDTBH #### [facility] [address] [place] [address] Dr. Mag Charles Calcium [Mass/Vol] 8.5 mg/dL Normal 8.5-10.1 [facility] Comment on above: Performed By: #### C VDTBH #### [facility] [address] [place] [address] Dr. Mag Charles Chloride [Moles/Vol] 103 mmol/L Normal 98-107 [facility] Comment on above: Performed By: #### C VDTBH #### [facility] [address] [place] [address] Dr. Mag Charles CO2 [Moles/Vol] 30.7 mmol/L Normal 21.0-32.0 [facility] Comment on above: Performed By: #### C VDTBH #### [facility] [address] [place] [address] Dr. Mag Charles Creatinine [Mass/Vol] 1.01 mg/dL Normal 0.55-1.02 [facility] Comment on above: Performed By: #### C VDTBH #### [facility] [address] [place] [address] Dr. Mag Charles EGFR-AF AUSTRALIAN >60 Normal >=60 [facility] Comment on above: Performed By: #### C VDTBH #### [facility] [address] [place] [address] Dr. Mag Charles EGFR-NON AF AUSTRALIAN 54 mL/min/1.73m2 Critically low >=60 [facility] Comment on above: Performed By: #### C VDTBH #### [facility] [address] [place] [address] Dr. Mag Charles Glucose [Mass/Vol] 94 mg/dL Normal 74-106 [facility] Comment on above: Performed By: #### C VDTBH #### [facility] [address] [place] [address] Dr. Mag Charles Potassium [Moles/Vol] 3.9 mmol/L Normal 3.5-5.1 [facility] Comment on above: Performed By: #### C VDTBH #### [facility] [address] [place] [address] Dr. Mag Charles Sodium [Moles/Vol] 140 mmol/L Normal 136-145 [facility] Comment on above: Performed By: #### C VDTBH #### [facility] [address] [place] [address] Dr. Mag Charles Urea nitrogen [Mass/Vol] 17.0 mg/dL Normal 7.0-18.0 [facility] Comment on above: Performed By: #### C VDTBH #### [facility] [address] [place] [address] Dr. Mag Charles Urea nitrogen/Creatinine [Mass ratio] 16.8 mg/mg Normal [facility] Comment on above: Performed By: #### C VDTBH #### [facility] [address] [place] [address] Dr. Mag Charles BNPon 06-10-2022 Natriuretic peptide B (Bld) [Mass/Vol] 51.0 pg/mL Normal <=900.0 [facility] Comment on above: Performed By: #### B FINANCE ADVISOR #### [facility] [address] [place] [address] Dr. Mag Charles CARDIAC NILO ADMITon 023 CK [Catalytic activity/Vol] 57 U/L Normal 26-192 [facility] Comment on above: Performed By: #### C FIONA, CMP #### [facility] [address] [place] [address] Dr. Mag Charles CK.MB [Mass/Vol] 1.72 ng/mL Normal <=3.60 [facility] Comment on above: Performed By: #### C FIONA, CMP #### [facility] [address] [place] [address] Dr. Mag Charles HSTROP 11.3 pg/mL Normal 4.0-51.3 [facility] Comment on above: Result Comment: CUT- OFF POINTS HAVE BEEN ESTABLISHED BASED ON THE FOURTH UNIVERSAL DEFINITIONS OF MYOCARDIAL INFARCTION. THE UPPER REFERENCE LIMIT (URL) OF TROPONIN, DEFINED THE 99TH PERCENTILE OF cTnI DISTRIBUTION IN A REFERENCE POPULATION, HAS BEEN CONFIRMED THE DECISION THRESHOLD FOR RI DIAGNOSIS. Performed By: #### C FIONA, CMP #### [facility] [address] [place] [address] Dr. Mag Charles AG 62 ng/mL Normal 9-82 [facility] Comment on above: Performed By: #### C FIONA, CMP #### [facility] [address] [place] [address] Dr. Mag Charles CBC AUTO DIFFon 06-10-2022 BASO # 0.1 103/ul Normal 0.0-0.1 [facility] Comment on above: Performed By: #### C VDTBH #### [facility] [address] [place] [address] Dr. Mag Charles Basophils/100 WBC (Bld) 0.5 % Normal 0.2-2.0 [facility] Comment on above: Performed By: #### C VDTBH #### [facility] [address] [place] [address] Dr. Mag Charles EO # 0.1 103/ul Normal 0.0-0.7 [facility] Comment on above: Performed By: #### Fawn WALLACETBH #### [facility] [address] [address] [address] Mag Charles Eosinophils/100 WBC (Bld) 0.8 % Critically low 0.9-7.0 [facility] Comment on above: Performed By: #### C VDTBH #### [facility] [address] [place] [address] Dr. Mag Charles Erythrocyte distribution width (RBC) [Ratio] 13.5 % Normal 11.0-15.0 [facility] Comment on above: Performed By: #### C VDTBH #### [facility] [address] [place] [address] Dr. Mag Charles Hematocrit (Bld) [Volume fraction] 49.1 % Critically high 36.0-48.0 [facility] Comment on above: Performed By: #### C VDTBH #### [facility] [address] [place] [address] Dr. Mag Charles Hemoglobin (Bld) [Mass/Vol] 15.9 g/dL Normal 12.0-16.0 [facility] Comment on above: Performed By: #### C VDTBH #### [facility] [address] [place] [address] Dr. Mag Charles IG # 0.12 10e3/ul Critically high 0.00-0.03 [facility] Comment on above: Performed By: #### C VDTBH #### [facility] [address] [place] [address] Dr. Mag Charles IG % 1.1 % Critically high 0.0-0.5 [facility] Comment on above: Performed By: #### C VDTBH #### [facility] [address] [place] [address] Dr. Mag Charles LYMPH # 1.9 103/ul Normal 1.2-3.8 [facility] Comment on above: Performed By: #### C VDTBH #### [facility] [address] [place] [address] Dr. Mag Charles Lymphocytes/100 WBC (Bld) 18.1 % Critically low 20.5-60.0 [facility] Comment on above: Performed By: #### C VDTBH #### [facility] [address] [place] [address] Dr. Mag Charles MANUAL DIFF REQ NO Normal [facility] Comment on above: Performed By: #### C VDTBH #### [facility] [address] [place] [address] Dr. Mag Charles MCH (RBC) [Entitic mass] 30.1 pg Normal 26.7-34.0 [facility] Comment on above: Performed By: #### C VDTBH #### [facility] [address] [place] [address] Dr. Mag Charles MCHC (RBC) [Mass/Vol] 32.4 g/dL Normal 29.9-35.2 [facility] Comment on above: Performed By: #### C VDTBH #### [facility] [address] [place] [address] Dr. Mag Charles MCV (RBC) [Entitic vol] 93.0 fL Normal 81.0-99.0 [facility] Comment on above: Performed By: #### C VDTBH #### [facility] [address] [place] [address] Dr. Mag Charles MONO # 0.8 103/ul Normal 0.3-0.8 [facility] Comment on above: Performed By: #### C VDTBH #### [facility] [address] [place] [address] Dr. Mag Charles Monocytes/100 WBC (Bld) 7.7 % Normal 1.7-12.0 [facility] Comment on above: Performed By: #### C VDTBH #### [facility] [address] [place] [address] Dr. Mag Charles NEUT # 7.6 103/ul Critically high 1.4-6.5 [facility] Comment on above: Performed By: #### C VDTBH #### [facility] [address] [place] [address] Dr. Mag Charles Neutrophils/100 WBC (Bld) 71.8 % Normal 43.0-75.0 [facility] Comment on above: Performed By: #### C VDTBH #### [facility] [address] [address] [address] Mag Charles Platelet mean volume (Bld) [Entitic vol] 10.4 fL Normal 9.5-13.5 [facility] Comment on above: Performed By: #### C VDTBH #### [facility] [address] [address] [address] Mag Charles PLT 165 103/ul Normal 150-450 [facility] Comment on above: Performed By: #### C VDTBH #### [facility] [address] [address] [address] Mag Charles RBC 5.28 106/ul Normal 4.20-5.40 [facility] Comment on above: Performed By: #### C VDTBH #### [facility] [address] [place] [address] Dr. Mag Charles WBC 10.6 103/ul Normal 4.0-11.0 [facility] Comment on above: Performed By: #### C VDTBH #### [facility] [address] [address] [address] Mag Charles Covid-19 PCR ([facility])on SARS-CoV-2 (COVID-19) RNA ABIODUN+probe Ql (Unsp spec) Not detected Normal NOT DETECTED [facility] Comment on above: Result Comment: When [...] for this test is supported by the [place] of Health and Human Service's declaration that [...] used). Performed By: #### C VDTBH #### [facility] [address] [place] [address] Dr. Mag Charles D-DIMERon 06-10-2022 D-DIMER 0.49 mg/L FEU Normal <=0.59 [facility] Comment on above: Performed By: #### C VDTBH #### [facility] [address] [place] [address] Dr. Mag Charles D-DIMER COMMENTS SEE BELOW Normal [facility] Comment on above: Result Comment: [...] and generalized hospitalization. Performed By: #### C FELIX #### [facility] [address] [place] [address] Dr. Mag Charles PROF 14(COMP METB)on 023 Albumin [Mass/Vol] 3.5 g/dL Normal 3.4-5.0 [facility] Comment on above: Performed By: #### C FIONA, CMP #### [facility] [address] [place] [address] Dr. Mag Charles Albumin/Globulin [Mass ratio] 1.1 {ratio} Normal [facility] Comment on above: Performed By: #### C FIONA, CMP #### [facility] [address] [place] [address] Dr. Mag Charles ALP [Catalytic activity/Vol] 108 U/L Normal 46-116 [facility] Comment on above: Performed By: #### C FIONA, CMP #### [facility] [address] [place] [address] Dr. Mag Charles ALT [Catalytic activity/Vol] 67 U/L Critically high 14-59 [facility] Comment on above: Performed By: #### C GEOVANIM, CMP #### [facility] [address] [place] [address] Dr. Mag Charles Anion gap [Moles/Vol] 12.6 mmol/L Normal [facility] Comment on above: Performed By: #### C GEOVANIM, CMP #### [facility] [address] [place] [address] Dr. Mag Charles AST [Catalytic activity/Vol] 117 U/L Critically high 15-37 [facility] Comment on above: Performed By: #### C FIONA, CMP #### [facility] [address] [place] [address] Dr. Mag Charles Bilirubin [Mass/Vol] 0.7 mg/dL Normal 0.2-1.0 [facility] Comment on above: Performed By: #### C FIONA, CMP #### [facility] [address] [place] [address] Dr. Mag Charles Calcium [Mass/Vol] 8.5 mg/dL Normal 8.5-10.1 [facility] Comment on above: Performed By: #### C FIONA, CMP #### [facility] [address] [place] [address] Dr. Mag Charles Chloride [Moles/Vol] 99 mmol/L Normal 98-107 [facility] Comment on above: Performed By: #### C FIONA, CMP #### [facility] [address] [place] [address] Dr. Mag Charles CO2 [Moles/Vol] 28.5 mmol/L Normal 21.0-32.0 [facility] Comment on above: Performed By: #### C FIONA, CMP #### [facility] [address] [place] [address] Dr. Mag Charles Creatinine [Mass/Vol] 1.23 mg/dL Critically high 0.55-1.02 [facility] Comment on above: Performed By: #### C FIONA, CMP #### [facility] [address] [place] [address] Dr. Mag Charles EGFR-AF AUSTRALIAN 52 mL/min/1.73m2 Critically low >=60 [facility] Comment on above: Performed By: #### C GEOVANIM, CMP #### [facility] [address] [address] [address] Mag Charles EGFR-NON AF AUSTRALIAN 43 mL/min/1.73m2 Critically low >=60 [facility] Comment on above: Performed By: #### C GEOVANIM, CMP #### [facility] [address] [address] [address] Mag Charles Globulin (S) [Mass/Vol] 3.3 g/dL Normal [facility] Comment on above: Performed By: #### C FIONA, CMP #### [facility] [address] [address] [address] Mag Charles Glucose [Mass/Vol] 112 mg/dL Critically high 74-106 [facility] Comment on above: Performed By: #### C FIONA, CMP #### [facility] [address] [address] [address] Mag Charles Potassium [Moles/Vol] 4.1 mmol/L Normal 3.5-5.1 [facility] Comment on above: Performed By: #### C FIONA, CMP #### [facility] [address] [place] [address] Dr. Mag Charles Protein [Mass/Vol] 6.8 g/dL Normal 6.4-8.2 [facility] Comment on above: Performed By: #### C FIONA, CMP #### [facility] [address] [address] [address] Mag Charles Sodium [Moles/Vol] 136 mmol/L Normal 136-145 [facility] Comment on above: Performed By: #### C FIONA, CMP #### [facility] [address] [address] [address] Mag Charles Urea nitrogen [Mass/Vol] 21.0 mg/dL Critically high 7.0-18.0 [facility] [facility] Comment on above: Performed By: #### C FIONA, CMP #### [facility] [address] [address] [address] Mag Charles Urea nitrogen/Creatinine [Mass ratio] 17.1 mg/mg Normal [facility] Comment on above: Performed By: #### C FIONA, CMP #### [facility] [address] [address] [address] Mag Charles TROPONIN, HIGH SENSITIVITYon 06-10-2022 HSTROP 9.3 pg/mL Normal 4.0-51.3 [facility] Comment on above: Result Comment: CUT- OFF POINTS HAVE BEEN ESTABLISHED BASED ON THE FOURTH UNIVERSAL DEFINITIONS OF MYOCARDIAL INFARCTION. THE UPPER REFERENCE LIMIT (URL) OF TROPONIN, DEFINED THE 99TH PERCENTILE OF cTnI DISTRIBUTION IN A REFERENCE POPULATION, HAS BEEN CONFIRMED THE DECISION THRESHOLD FOR RI DIAGNOSIS. Performed By: #### C VDTB #### [facility] [address] [place] [address] Dr. Mag Charles HSTROP 10.4 pg/mL Normal 4.0-51.3 [facility] Comment on above: Result Comment: CUT- OFF POINTS HAVE BEEN ESTABLISHED BASED ON THE FOURTH UNIVERSAL DEFINITIONS OF MYOCARDIAL INFARCTION. THE UPPER REFERENCE LIMIT (URL) OF TROPONIN, DEFINED THE 99TH PERCENTILE OF cTnI DISTRIBUTION IN A REFERENCE POPULATION, HAS BEEN CONFIRMED THE DECISION THRESHOLD FOR RI DIAGNOSIS. Performed By: #### H STRO #### [facility] [address] [place] [address] Dr. Mag Charles HSTROP 11.0 pg/mL Normal 4.0-51.3 [facility] Comment on above: Result Comment: CUT- OFF POINTS HAVE BEEN ESTABLISHED BASED ON THE FOURTH UNIVERSAL DEFINITIONS OF MYOCARDIAL INFARCTION. THE UPPER REFERENCE LIMIT (URL) OF TROPONIN, DEFINED THE 99TH PERCENTILE OF cTnI DISTRIBUTION IN A REFERENCE POPULATION, HAS BEEN CONFIRMED THE DECISION THRESHOLD FOR RI DIAGNOSIS. Performed By: #### C VDTB #### [facility] [address] [place] [address] Dr. Mag Charles XR CHEST 1 Von [...] TAMIE RICHARDSON Date: 2022-06-10 09:21 Normal [facility] XR CHEST 2 Von 06-06-2022 XR [...] SUZE MARROQUIN Date: 2022-06-06 12:19 Normal [facility] COVID + FLU Quick Testingon 05-31-2022 SARS-CoV-2 (COVID-19) RNA ABIODUN+probe Ql (Unsp spec) Negative [facility] Other COVID + FLU Quick Testing Negative [facility] Other CBC W Auto Differential pane l (Bld)on 05-15-2022 Basophils (Bld) [#/Vol] 0.04 10*3/uL Normal <0.11 [facility] Comment on above: Order Comment: Speci men Type: BLOOD SPECIMEN Ordering Facility: [facility] Address: [address] [place] [address] Performed By: #### 5 7021-8 #### [facility] CLIA [id number] [address] [place] [address] Basophils/100 WBC (Bld) 0.7 % Normal [facility] Comment on above: Order Comment: Speci men Type: BLOOD SPECIMEN Ordering Facility: [facility] Address: [address] [address] Performed By: #### 5 7021-8 #### [facility] CLIA [id number] [address] [place] [address] Differential cell count method Nom (Bld) Auto Normal [facility] Comment on above: Order Comment: Speci men Type: BLOOD SPECIMEN Ordering Facility: [facility] Address: [address] [address] Performed By: #### 5 7021-8 #### [facility] CLIA [id number] [address] [place] [address] Eosinophils (Bld) [#/Vol] 0.15 10*3/uL Normal <0.46 [facility] Comment on above: Order Comment: Speci men Type: BLOOD SPECIMEN Ordering Facility: [facility] Address: [address] [address] Performed By: #### 5 7021-8 #### [facility] CLIA [id number] [address] [place] [address] Eosinophils/100 WBC (Bld) 2.8 % Normal [facility] Comment on above: Order Comment: Speci men Type: BLOOD SPECIMEN Ordering Facility: [facility] Address: [address] [address] Performed By: #### 5 7021-8 #### [facility] CLIA [id number] [address] [place] [address] Erythrocyte distribution width (RBC) [Ratio] 12.7 % Normal 11.5-15.0 [facility] Comment on above: Order Comment: Speci men Type: BLOOD SPECIMEN Ordering Facility: [facility] Address: [address] [address] Performed By: #### 5 7021-8 #### [facility] CLIA [id number] [address] [place] [address] Hematocrit (Bld) [Volume fraction] 47.3 % High 36.0-46.0 [facility] Comment on above: Order Comment: Speci men Type: BLOOD SPECIMEN Ordering Facility: [facility] Address: [address] [place] [address] Performed By: #### 5 7021-8 #### [facility] CLIA [id number] [address] [place] [address] Hemoglobin (Bld) [Mass/Vol] 15.4 g/dL Normal 11.5-15.5 [facility] Comment on above: Order Comment: Speci men Type: BLOOD SPECIMEN Ordering Facility: [facility] Address: [address] [place] [address] Performed By: #### 5 7021-8 #### [facility] CLIA [id number] [address] [place] [address] Immature granulocytes (Bld) [#/Vol] 10*3/uL Normal <0.10 [facility] Comment on above: Order Comment: Speci men Type: BLOOD SPECIMEN Ordering Facility: [facility] Address: [address] [place] [address] Performed By: #### 5 7021-8 #### [facility] CLIA [id number] [address] [place] [address] Immature granulocytes/100 WBC (Bld) 0.2 % Normal [facility] Comment on above: Order Comment: Speci men Type: BLOOD SPECIMEN Ordering Facility: [facility] Address: [address] [address] Performed By: #### 5 7021-8 #### [facility] CLIA [id number] [address] [place] [address] Lymphocytes (Bld) [#/Vol] 1.42 10*3/uL Normal 1.00-4.00 [facility] Comment on above: Order Comment: Speci men Type: BLOOD SPECIMEN Ordering Facility: [facility] Address: [address] [place] [address] Performed By: #### 5 7021-8 #### [facility] CLIA [id number] [address] [place] [address] Lymphocytes/100 WBC (Bld) 26.2 % Normal [facility] Comment on above: Order Comment: Speci men Type: BLOOD SPECIMEN Ordering Facility: [facility] Address: [address] [place] [address] Performed By: #### 5 7021-8 #### [facility] CLIA [id number] [address] [place] [address]85 MCH (RBC) [Entitic mass] 30.3 pg Normal 26.0-34.0 [facility] Comment on above: Order Comment: Speci men Type: BLOOD SPECIMEN Ordering Facility: [facility] Address: [address] [place] [address] Performed By: #### 5 7021-8 #### [facility] CLIA [id number] [address] [place] [address]663 MCHC (RBC) [Mass/Vol] 32.6 g/dL Normal 30.5-36.0 [facility] Comment on above: Order Comment: Speci men Type: BLOOD SPECIMEN Ordering Facility: [facility] Address: [address] [place] [address] Performed By: #### 5 7021-8 #### [facility] CLIA [id number] [address] [place] [address] MCV (RBC) [Entitic vol] 92.9 fL Normal 80.0-100.0 [facility] Comment on above: Order Comment: Speci men Type: BLOOD SPECIMEN Ordering Facility: [facility] Address: [address] [place] [address] Performed By: #### 5 7021-8 #### [facility] CLIA [id number] [address] [place] [address]773 Monocytes (Bld) [#/Vol] 0.61 10*3/uL Normal <0.87 [facility] Comment on above: Order Comment: Speci men Type: BLOOD SPECIMEN Ordering Facility: [facility] Address: [address] [address] Performed By: #### 5 7021-8 #### [facility] CLIA [id number] [address] [place] [address]04[address] Monocytes/100 WBC (Bld) 11.3 % Normal [facility] Comment on above: Order Comment: Speci men Type: BLOOD SPECIMEN Ordering Facility: [facility] Address: [address] [address] Performed By: #### 5 7021-8 #### [facility] CLIA [id number] [address] [place] [address]25 Neutrophils (Bld) [#/Vol] 3.19 10*3/uL Normal 1.45-7.50 [facility] Comment on above: Order Comment: Speci men Type: BLOOD SPECIMEN Ordering Facility: [facility] Address: [address] [address] Performed By: #### 5 7021-8 #### [facility] CLIA [id number] [address] [place] [address] 77568 Neutrophils/100 WBC (Bld) 58.8 % Normal [facility] Comment on above: Order Comment: Speci men Type: BLOOD SPECIMEN Ordering Facility: [facility] Address: [address] [address] Performed By: #### 5 7021-8 #### [facility] CLIA [id number] [address] [place] [address]200 Nucleated RBC (Bld) [#/Vol] 10*3/uL Normal <0.01 [facility] Comment on above: Order Comment: Speci men Type: BLOOD SPECIMEN Ordering Facility: [facility] Address: [address] [address] Performed By: #### 5 7021-8 #### [facility] CLIA [id number] [address] [place] [address]288 Nucleated RBC/100 WBC (Bld) [Ratio] 0.0 /100 WBC Normal [facility] Comment on above: Order Comment: Speci men Type: BLOOD SPECIMEN Ordering Facility: [facility] Address: [address] [place] [address] Performed By: #### 5 7021-8 #### [facility] CLIA [id number] [address] [place] [address] Platelet mean volume (Bld) [Entitic vol] 10.7 fL Normal 9.0-12.7 [facility] Comment on above: Order Comment: Speci men Type: BLOOD SPECIMEN Ordering Facility: [facility] Address: [address] [place] [address] Performed By: #### 5 7021-8 #### [facility] CLIA [id number] [address] [place] [address] 35980 Platelets (Bld) [#/Vol] 197 10*3/uL Normal 150-400 [facility] Comment on above: Order Comment: Speci men Type: BLOOD SPECIMEN Ordering Facility: [facility] Address: [address] [place] [address] Performed By: #### 5 7021-8 #### [facility] CLIA [id number] [address] [place] [address] 59273 RBC (Bld) [#/Vol] 5.09 10*6/uL Normal 3.90-5.20 [facility] Comment on above: Order Comment: Speci men Type: BLOOD SPECIMEN Ordering Facility: [facility] Address: [address] [address] Performed By: #### 5 7021-8 #### [facility] CLIA [id number] [address] [place] [address] 41152 WBC (Bld) [#/Vol] 5.42 10*3/uL Normal 3.70-11.00 [facility] Comment on above: Order Comment: Speci men Type: BLOOD SPECIMEN Ordering Facility: [facility] Address: [address] [place] [address], [place] [address] Performed By: #### 5 7021-8 #### [facility] CLIA [id number] [address] [place] [address] 16361 CNOVSPon 05-15-2022 CNOVSP Visit (SP) Office ([place]) ----- KATARINA CAMARA ([id number]) 1945 F Date Time Provider Department 05/15/22 [...] breast cancer HISTORY OF PRESENT ILLNESS: Katarina E Tyrone is a 76 year old woman who [...] biopsy completed 02/2016 noted invasive ductal carcinoma ER/UT positive, HER2 negative. : Lumpectomy completed 03/21/16 noted grade 2 invasive ductal carcinoma, DCIS grade 2, 14 mm : Margins negative (discussed with the pathologist who assured negative margins but that the anterior margin was within 1.0mm anteriorly). : [place] lymph node was positive for involvement. 06/25/16 [...] Invasive ductal carcinoma of right breast (HCC) ER/UT+ HER2- PAST SURGICAL HISTORY Procedure Laterality Date [...] sores or (more content not included)... Normal [facility] Comprehensive metabolic 2000 panelon 05-15-2022 Albumin [Mass/Vol] 4.5 g/dL Normal 3.9-4.9 [facility] Comment on above: Order Comment: Speci men Type: BLOOD SPECIMEN Ordering Facility: [facility] Address: [address] [place] [address] Performed By: #### 2 4323-8 #### [facility] CLIA [id number] [address] [place] [address] 48442 ALP [Catalytic activity/Vol] 83 U/L Normal 34-123 [facility] Comment on above: Order Comment: Speci men Type: BLOOD SPECIMEN Ordering Facility: [facility] Address: [address] [place] [address] Performed By: #### 2 4323-8 #### [facility] CLIA [id number] [address] [place] [address] 41924 ALT [Catalytic activity/Vol] 11 U/L Normal 7-38 [facility] Comment on above: Order Comment: Speci men Type: BLOOD SPECIMEN Ordering Facility: [facility] Address: [address] [address] Performed By: #### 2 4323-8 #### [facility] CLIA [id number] [address] [place] [address]15 Anion gap [Moles/Vol] 9 mmol/L Normal 9-18 [facility] Comment on above: Order Comment: Speci men Type: BLOOD SPECIMEN Ordering Facility: [facility] Address: [address] [address] Performed By: #### 2 432-8 #### [facility] CLIA [id number] [address] [place] [address]013 AST [Catalytic activity/Vol] 20 U/L Normal 13-35 [facility] Comment on above: Order Comment: Speci men Type: BLOOD SPECIMEN Ordering Facility: [facility] Address: [address] [address] Performed By: #### 2 432-8 #### [facility] CLIA [id number] [address] [place] [address]43 Bilirubin [Mass/Vol] 0.7 mg/dL Normal 0.2-1.3 [facility] Comment on above: Order Comment: Speci men Type: BLOOD SPECIMEN Ordering Facility: [facility] Address: [address] [address] Performed By: #### 2 432-8 #### [facility] CLIA [id number] [address] [place] [address]9515 Calcium [Mass/Vol] 9.5 mg/dL Normal 8.5-10.2 [facility] Comment on above: Order Comment: Speci men Type: BLOOD SPECIMEN Ordering Facility: [facility] Address: [address] [address] Performed By: #### 2 4322-8 #### [facility] CLIA [id number] [address] [place] [address] Chloride [Moles/Vol] 99 mmol/L Normal 97-105 [facility] Comment on above: Order Comment: Speci men Type: BLOOD SPECIMEN Ordering Facility: [facility] Address: [address] [place] [address] Performed By: #### 2 4323-8 #### [facility] CLIA [id number] [address] [place] [address] 37842 CO2 [Moles/Vol] 30 mmol/L Normal 22-30 [facility] Comment on above: Order Comment: Speci men Type: BLOOD SPECIMEN Ordering Facility: [facility] Address: [address] [place] [address] Performed By: #### 2 4323-8 #### [facility] CLIA [id number] [address] [place] [address]289 Creatinine [Mass/Vol] 1.08 mg/dL High 0.58-0.96 [facility] Comment on above: Order Comment: Speci men Type: BLOOD SPECIMEN Ordering Facility: [facility] Address: [address] [place] [address] Performed By: #### 2 4323-8 #### [facility] CLIA [id number] [address] [place] [address]327 ESTIMATED GLOMERULAR FILTRATION RATE 54 mL/min/1.73m??? Low >=60 [facility] Comment on above: Order Comment: Speci men Type: BLOOD SPECIMEN Ordering Facility: [facility] Address: [address] [place] [address] Result Comment: Cathy mated Glomerular Filtration Rate [...] GFR. Performed By: #### 2 4323-8 #### [facility] CLIA [id number] [address] [place] [address] Glucose [Mass/Vol] 94 mg/dL Normal 74-99 [facility] Comment on above: Order Comment: Speci men Type: BLOOD SPECIMEN Ordering Facility: [facility] Address: [address] [place] [address] Result Comment: The [place] [employer] (ADA) provides guidance for cutoff [...] Standards of Medical Care in Diabetes 2016, [place] [employer]. Diabetes Care. 2016.39(Suppl 1). Performed By: #### 2 4323-8 #### [facility] CLIA [id number] [address] [place] [address]85 Potassium [Moles/Vol] 4.2 mmol/L Normal 3.7-5.1 [facility] Comment on above: Order Comment: Speci men Type: BLOOD SPECIMEN Ordering Facility: [facility] Address: [address] [place] [address] Performed By: #### 2 4323-8 #### [facility] CLIA [id number] [address] [place] [address]9430 Protein [Mass/Vol] 6.7 g/dL Normal 6.3-8.0 [facility] Comment on above: Order Comment: Speci men Type: BLOOD SPECIMEN Ordering Facility: [facility] Address: [address] [place] [address] Performed By: #### 2 4323-8 #### [facility] CLIA [id number] [address] [place], [place] [address] Sodium [Moles/Vol] 138 mmol/L Normal 136-144 [facility] Comment on above: Order Comment: Speci men Type: BLOOD SPECIMEN Ordering Facility: [facility] Address: [address] [id number] Performed By: #### 2 4323-8 #### [facility] CLIA [id number] [address] [place] [address] Urea nitrogen [Mass/Vol] 15 mg/dL Normal 7-21 [facility] Comment on above: Order Comment: Speci men Type: BLOOD SPECIMEN Ordering Facility: [facility] Address: [address] [address] Performed By: #### 2 4323-8 #### [facility] CLIA [id number] [address] [place], [place] [address] CBC AUTO DIFFon 04-24-2022 BASO # 0.0 103/ul Normal 0.0-0.1 [facility] Comment on above: Performed By: #### C BC #### [facility] [address] [address] [address] Mag Charles Basophils/100 WBC (Bld) 0.7 % Normal 0.2-2.0 [facility] Comment on above: Performed By: #### C BC #### [facility] [address] [address] [address] Mag Charles EO # 0.2 103/ul Normal 0.0-0.7 [facility] Comment on above: Performed By: #### C BC #### [facility] [address] [address] [address] Mag Charles Eosinophils/100 WBC (Bld) 3.0 % Normal 0.9-7.0 [facility] Comment on above: Performed By: #### C BC #### [facility] [address] [address] [address] Mag Charles Erythrocyte distribution width (RBC) [Ratio] 13.1 % Normal 11.0-15.0 [facility] Comment on above: Performed By: #### C BC #### [facility] [address] [place] [address] Dr. Mag Charles Hematocrit (Bld) [Volume fraction] 45.7 % Normal 36.0-48.0 [facility] Comment on above: Performed By: #### C BC #### [facility] [address] [place] [address] Dr. Mag Charles Hemoglobin (Bld) [Mass/Vol] 15.2 g/dL Normal 12.0-16.0 [facility] Comment on above: Performed By: #### C BC #### [facility] [address] [place] [address] Dr. Mag Charles IG # 0.02 10e3/ul Normal 0.00-0.03 [facility] Comment on above: Performed By: #### C BC #### [facility] [address] [place] [address] Dr. Mag Charles IG % 0.3 % Normal 0.0-0.5 [facility] Comment on above: Performed By: #### C BC #### [facility] [address] [place] [address] Dr. Mag Charles LYMPH # 1.5 103/ul Normal 1.2-3.8 [facility] Comment on above: Performed By: #### C BC #### [facility] [address] [place] [address] Dr. Mag Charles Lymphocytes/100 WBC (Bld) 25.7 % Normal 20.5-60.0 [facility] Comment on above: Performed By: #### C BC #### [facility] [address] [place] [address] Dr. Mag Charles MANUAL DIFF REQ NO Normal [facility] Comment on above: Performed By: #### C BC #### [facility] [address] [place] [address] Dr. Mag Charles MCH (RBC) [Entitic mass] 30.2 pg Normal 26.7-34.0 [facility] Comment on above: Performed By: #### C BC #### [facility] [address] [address] [address] Mag Charles MCHC (RBC) [Mass/Vol] 33.3 g/dL Normal 29.9-35.2 [facility] Comment on above: Performed By: #### C BC #### [facility] [address] [address] [address] Mag Charles MCV (RBC) [Entitic vol] 90.7 fL Normal 81.0-99.0 [facility] Comment on above: Performed By: #### C BC #### [facility] [address] [address] [address] Mag Charles MONO # 0.6 103/ul Normal 0.3-0.8 [facility] Comment on above: Performed By: #### C BC #### [facility] [address] [place] [address] Dr. Mag Charles Monocytes/100 WBC (Bld) 10.4 % Normal 1.7-12.0 [facility] Comment on above: Performed By: #### C BC #### [facility] [address] [place] [address] Dr. Mag Charles NEUT # 3.6 103/ul Normal 1.4-6.5 [facility] Comment on above: Performed By: #### C BC #### [facility] [address] [place] [address] Dr. Mag Charles Neutrophils/100 WBC (Bld) 59.9 % Normal 43.0-75.0 [facility] Comment on above: Performed By: #### C BC #### [facility] [address] [place] [address] Dr. Mag Charles Platelet mean volume (Bld) [Entitic vol] 10.2 fL Normal 9.5-13.5 [facility] Comment on above: Performed By: #### C BC #### [facility] [address] [place] [address] Dr. Mag Charles PLT 175 103/ul Normal 150-450 [facility] Comment on above: Performed By: #### C BC #### [facility] [address] [address] [address] Mag Charles RBC 5.04 106/ul Normal 4.20-5.40 [facility] Comment on above: Performed By: #### C BC #### [facility] [address] [place] [address] Dr. Mag Charles WBC 6.0 103/ul Normal 4.0-11.0 [facility] Comment on above: Performed By: #### C BC #### [facility] [address] [place] [address] Dr. aMg Charles GLYCOHEMOGLOBIN A1Con 2022 ADA RECOMMENDATION SEE BELOW Normal [facility] Comment on above: Result Comment: ADA RECOMMENDED LIMIT 4.0 - 6.0 ADA THERAPEUTIC TARGET < 7.0 ACTION SUGGESTED > 7.0 Performed By: #### C VDTBH #### [facility] [address] [place] [address] Dr. Mag Charles Glucose [Mass/Vol] 123 mg/dL Normal [facility] Comment on above: Performed By: #### C VDTBH #### [facility] [address] [place] [address] Dr. Mag Charles HbA1c (Bld) [Mass fraction] 5.9 % Normal 4.5-6.2 [facility] Comment on above: Performed By: #### C VDTBH #### [facility] [address] [place] [address] Dr. Mag Charles LIPID PROFILEon 04-24-2022 CHOL-HDL RATIO NORM SEE BELOW Normal [facility] Comment on above: Result Comment: 3.3 - 4.4 LOW RISK 4.4 - 7.1 AVERAGE RISK 7.1 - 11.0 MODERATE RISK >11.0 HIGH RISK Performed By: #### T SH, CMP, LIPID #### [facility] [address] [place] [address] Dr. Mag Charles Cholesterol [Mass/Vol] 169 mg/dL Normal <=200 [facility] Comment on above: Performed By: #### T SH, CMP, LIPID #### [facility] Laboratory [address] [place] [address] Dr. Mag Charles Cholesterol in HDL [Mass/Vol] 49 mg/dL Normal 40-60 [facility] Comment on above: Performed By: #### T BRENDA CMP, LIPID #### [facility] Laboratory [address] [address] [address] Mag Charles Cholesterol in LDL [Mass/Vol] 83.2 mg/dL Normal [facility] Comment on above: Performed By: #### T BRENDA CMP, LIPID #### [facility] [address] [place] [address] Dr. Mag Charles Cholesterol.total/Chol esterol in HDL [Mass ratio] 3.4 {ratio} Normal [facility] Comment on above: Performed By: #### T BRENDA CMP, LIPID #### [facility] [address] [place] [address] Dr. Mag Charles HDL NORMAL > or = 60 mg/dl - LO W CARDIOVASCULAR RISK <40 mg/dl - HIGH CARDIOVASCULAR RISK Normal [facility] Comment on above: Performed By: #### T BRENDA CMP, LIPID #### [facility] [address] [place] [address] Dr. Mag Charles LDL CALC NORMAL SEE BELOW Normal [facility] Comment on above: Result Comment: <100 mg/dl OPTIMAL 100 - 129 mg/dl NEAR OR ABOVE OPTIMAL 130 - 159 mg/dl BORDERLINE HIGH 160 - 189 mg/dl HIGH >190 mg/dl VERY HIGH Performed By: #### T BRENDA CMP, LIPID #### [facility] [address] [place] [address] Dr. Mag Charles Triglyceride [Mass/Vol] 184 mg/dL Critically high <=150 [facility] Comment on above: Performed By: #### T SH, CMP, LIPID #### [facility] [address] [place] [address] Dr. Mag Charles VLDL CALC 36.8 mg/dL Normal [facility] Comment on above: Performed By: #### T SH, CMP, LIPID #### [facility] [address] [place] [address] Dr. Mag Charles PROF 14(COMP METB)on 02-21-2 023 Albumin [Mass/Vol] 3.9 g/dL Normal 3.4-5.0 [facility] Comment on above: Performed By: #### T SH, CMP, LIPID #### [facility] [address] [address] [address] Mag Charles Albumin/Globulin [Mass ratio] 1.3 {ratio} Normal [facility] Comment on above: Performed By: #### T SH, CMP, LIPID #### [facility] [address] [address] [address] Mag Charles ALP [Catalytic activity/Vol] 71 U/L Normal 46-116 [facility] Comment on above: Performed By: #### T BRENDA, CMP, LIPID #### [facility] [address] [address] [address] Mag Charles ALT [Catalytic activity/Vol] 23 U/L Normal 14-59 [facility] Comment on above: Performed By: #### T BRENDA, CMP, LIPID #### [facility] [address] [address] [address] Mag Charles Anion gap [Moles/Vol] 7.8 mmol/L Normal [facility] Comment on above: Performed By: #### T BRENDA, CMP, LIPID #### [facility] [address] [address] [address] Mag Charles AST [Catalytic activity/Vol] 22 U/L Normal 15-37 [facility] Comment on above: Performed By: #### T BRENDA, CMP, LIPID #### [facility] [address] [address] [address] Mag Charles Bilirubin [Mass/Vol] 0.7 mg/dL Normal 0.2-1.0 [facility] Comment on above: Performed By: #### T SH, CMP, LIPID #### [facility] [address] [address] [address] Mag Charles Calcium [Mass/Vol] 9.2 mg/dL Normal 8.5-10.1 [facility] Comment on above: Performed By: #### T SH, CMP, LIPID #### [facility] [address] [address] [address] Mag Charles Chloride [Moles/Vol] 104 mmol/L Normal 98-107 [facility] Comment on above: Performed By: #### T SH, CMP, LIPID #### [facility] [address] [address] [address] Mag Charles CO2 [Moles/Vol] 32.0 mmol/L Normal 21.0-32.0 [facility] Comment on above: Performed By: #### T SH, CMP, LIPID #### [facility] [address] [place] [address] Dr. Mag Charles Creatinine [Mass/Vol] 1.15 mg/dL Critically high 0.55-1.02 [facility] Comment on above: Performed By: #### T SH, CMP, LIPID #### [facility] [address] [place] [address] Dr. Mag Charles EGFR-AF AUSTRALIAN 56 mL/min/1.73m2 Critically low >=60 [facility] Comment on above: Performed By: #### T SH, CMP, LIPID #### [facility] [address] [place] [address] Dr. Mag Charles EGFR-NON AF AUSTRALIAN 46 mL/min/1.73m2 Critically low >=60 [facility] Comment on above: Performed By: #### T SH, CMP, LIPID #### [facility] [address] [place] [address] Dr. Mag Charles Globulin (S) [Mass/Vol] 3.1 g/dL Normal [facility] Comment on above: Performed By: #### T SH, CMP, LIPID #### [facility] [address] [place] [address] Dr. Mag Charles Glucose [Mass/Vol] 102 mg/dL Normal 74-106 [facility] Comment on above: Performed By: #### T SH, CMP, LIPID #### [facility] [address] [place] [address] Dr. Mag Charles Potassium [Moles/Vol] 4.8 mmol/L Normal 3.5-5.1 [facility] Comment on above: Performed By: #### T SH, CMP, LIPID #### [facility] [address] [address] [address] Mag Charles Protein [Mass/Vol] 7.0 g/dL Normal 6.4-8.2 [facility] Comment on above: Performed By: #### T SH, CMP, LIPID #### [facility] [address] [address] [address] Mag Charles Sodium [Moles/Vol] 139 mmol/L Normal 136-145 [facility] Comment on above: Performed By: #### T SH, CMP, LIPID #### [facility] [address] [place] [address] Dr. Mag Charles Urea nitrogen [Mass/Vol] 15.0 mg/dL Normal 7.0-18.0 [facility] Comment on above: Performed By: #### T SH, CMP, LIPID #### [facility] [address] [place] [address] Dr. Mag Charles Urea nitrogen/Creatinine [Mass ratio] 13.0 mg/mg Normal [facility] Comment on above: Performed By: #### T SH, CMP, LIPID #### [facility] [address] [place] [address] Dr. Mag Charles TSHon 04-24-2022 TSH 2.057 uIU/mL Normal 0.358-3.74 0 [facility] Comment on above: Performed By: #### T SH, CMP, LIPID #### [facility] [address] [place] [address] Dr. Mag Charles MG MAMM SCREEN 3D DA CADon 04-03-2022 MG MAMM SCREEN 3D DA CAD Patient: KATARINA CAMARA Exam Date: 04/03/2022 : 1945 Gender:F Ordering : ROSA TURNER Admission #: [id number] Family : DR NICOLE VARGAS M.D. Order #: [id number] CLICK HERE TO VIEW EXAM RADIOLOGY REPORT [...] and chemotherapy Family Cancers None LOCATION: [facility] BREAST COMPOSITION: Scattered areas fibroglandular density. [...] Pepper Wood M.D. on 04/03/2022 at 15:05 [facility] MRA HEAD WO CONon 10-31-2021 MRA HEAD [...] authenticated by: PEPPER WOOD Date: 2021-10-31 11:01 [facility] Consent Formson 02-14-2021 Consent Forms [id number]#1.00OTGTI FF [facility] Provider Orderson 02-10-2021 Provider Orders [id number]#1.00OTGTI [facility] Coding Summaryon 02-08-2021 Coding Summary HTMLBase 64 LkwnnmzwHUh0dMj+PGhlYWQ+P Z7ISAMjA13cjCZojF1XV9zVVK 2SUSPRNZCHIE1QKQ2mnAR1FRe uI8KjpmYz SbhgnUIyMF67HRz6NQJ0zBnqV MxdeH8hcPSyL6g7WxOgIU32sY 24FOprMVYsUtQ6ZyNhxkexgIC y M3feLsJuaSNvYcf+PHRhYmxlI HdpZHRoPScxMDAlJyBzdHlsZT 9sKp3lYGFtPMLhbHctcJFoVlY j e7pbYLVtCFxxKP7epPoxZ6Qjf KL7QFAnj9o7Do80zCE+PHRkIH K7uJyoEDzab155BnIkd5spJAK 3 zEJbFZmlQTL0D02pe9F3AEPoN VSmVJM3sUF8aH6rzMdpeutjA7 VtaFRyKpP1FFI0xHQsnX8ndXa n dsgqjM5fLde+W14XDN0TVWPJG J8HSba1O9WoYfryoVO+PC90YW JmUF82qKDxqMPph2bvkXh7IgB w HGQmGHB2cKddTXbwa6CdXULdI 16gdMSea3Q7RJOkmVmzxVIhEp HqxSQ9tH6pIAccvypnj7tyyrd n Gocvr2ydio81zM68B57dSSraI VNnNOL3CPNpIUHjiOvsre4czR 9wIi8+XVatw1vxr5ptpXb5DmP w LMRxhsHpyQuwJZU8m7YiEt00O 8RlqAvpw3SvEqg5vq89gPFbt7 J1wBY9LNwxJNPmnC2mSUhpZvB 6 SOPoSwHmuE74wNFuLWvtAq0kf FnwcQobIU3uCIIbyghoZBBhpK 6fYDRlwERopLpaZP1oOUImjag m y425ZbXiRJV0RKVfnTEvK7Myp S7iBxLzZVQxQGLhF0WezOZxOC nvA103TLfgDtB9ZKTjtaZbQ3S s IVNhhOdnDkK4r4Z6Os0Pl4Emk ewnDAD0RHhgSCDgXaL0AuLyDs L4B8IuQcz0QOIrrXkrTV6fN8L h ZZImeokwkjpycXV2WRTiPQMft U76dECmPUduKy7cy0P6u078RI XdRKUxiE85Wm3ztKxsRSYsuAO U cL1yulpom0mkdplmYyZaEQFsK Yk3GAv9AYZkkFpqRwHdEAA5Gc P2RZT6iMOpgF7juCvhffjxwA4 w Oyc+X85bvM6lPJR1YQG4qbnqO RMihqItPF63XQ24I2UjYcayeP FibGU+MDHqiuRohOamKA9aTwP j n5buu1XaACtuY7NiHZLnLWwhQ nq5FPZkJTK3uJJ2mC4iOFUsSE gjy8W0hTJ0D3HcbvOspi0et9p s GMMhXBfeA81ezVWhx1I9HQDtf GO3VEGjjFkfZrJybR68Kis+PG OqcMzcx9VaVydap2dul1peqFt 9 NmRkKYIoauAwxDfuVKQ7r0CeM s71P81tMEivAHYwMKQfNCIqCH OgoJxtef9fuU2oVs4+PGNvbCB 3 nGC0fK9cIOWmLaZ3PRyfP042P qQxkKUqKafns7hru2jcsHh3Du EvJZOxkdVqgIyqBVM9x4NdCp1 8 W44sEOxhLGYfYUWmWYMuQFWud Mcufj2rvU0iRm8+RM8ob3xjoi 40hE19wYW+VBOjVRG7mWguMOu w EYOxmN2aGNcqUqS1VVCcOnWby S57cVPcKUorZc1cbFhkxLrfAI 4dPWWgopbmh801ZcWom1tiPKG w hBKgMImoYJD5I85vo0T8QYDbP IAjPSV2hMD4oI7nbOrcbdnjdO JayGaapkKamQpyMSuvLZqiX30 6 IHRvcDsnPlBhdGllbnQgTmFtZ My2N9QcYat1NGTnkDklQC8nyY IxHQccAy5qdAdnmHgzLN7mXPW p nzelk096PeJrj6ckYWLvsBJjQ HtaFGR1I51qp8B4AMJnMRWrOE D8zUV2uF3ccMktbgdwqJKcuFk g tlMjwDamDDlaMOfrF739UHUax FbiHlYknaJeVYDpvTS2UO77LI 34mOCrl2T9vST8Y0ZaVRJslyg t bovgtSX1ECLuYTNsoX49Xe6ju PtpVz7vQIRiYVZ2JBYtrJAiG5 AdaJ6rXxWsCBZpTWJzI6WqdSF t WVglK348PUnhJfL2MFJfjfDhQ 5SaIURkpUqbGsA8i8O8Tm7OP1 A9PQ64MI35tGTvb2O4nIY8P7S h VXMrxnxikqsfgVG5WPAlNNWht Q44Ff4ypOtcWa3pFLTwKIP2LQ HvuTQjR4SgqD1gEbAvYMPkKXO w M7CpgAPbONqzV309IPubXvK4H ENixmBdA3ZpIVMvfPeyAaQ6f1 L0Ar5KATq4YZ37RP80iTCtv7L 5 pMG3V0FwXESonirmvhkldBD3N MTvGTLbcJ46Eq1uuZsfTb4qQG CuNAK5JMGiyTBlA5VyaO2dEtQ j VSNzMTToM5JcmCWlBZegI163T XivQdW2ZHByyrAeS6AuZEJyoI yeNlF5g5Y3Cr1OFHZqSG33WLP 5 tDM7ED22SS89N4EzEzcblXOxk +PHRhYmxlIHdpZHRoPScxMD SuFsZtyZsxGP5zPs0dDGLsPDH v hZmvsUGyOrGws9enOFNtLTfvL K9fgZcsV9YpmBJ3EZIfc6v0Cf 47C64gF8NfjTA+XIKceTM0uZK 0 eG6rKnEkPnY8SPkrV568CjRjd YCjIwhft8aiu0ohlWc5ZzG7GE MwmnMnuLnmJEJ9y5YkJs07Q84 s IHdpZHRoPSIxNSUiIHZhbGlnb g6dkH1hZm1+HRYmdJE9nRT1lX 0qWaVtVjE8HTmrB544EjBpxSV v Ojlyt3acr0mguDl2HxDmYGMff sDlqNzlJKU6t1RoGo87V9SufQ jub9YjNeq3ot94nRAyq7W0bWB 9 X2OtNQDcudbleREmcPpvFY0vV LEoubfxRDVcaY5rIRMuO8t8Fr IdOfT6FIwbU4KcpwL3PGEonIH g XFqbPBH5G42wc2S1QCZrQRNqZ YO5kWC8rI0jlCfvnuejgFFbcI bnntMrvWxqGZjcUCycB841NBB v bKamMQVrlL5pQCRmsWRmkUutE Y7pEMDlklspFs1GYY0LFBhyZa 2AG4VyMQsmzRT+ILVpKJQ7fLh l NOlyYXAadO2kCTHuQ0j5PiAyZ cI5UUghF0KrKMUftdmoUi92nN 5rGqSsVpO0LZcmU0MmgqE2JFZ w aAMtHFwwHZQ3I45lm5L2QGQtP UUeUVM5vRA0rG2piJcmdlqviD CmdGlgkwOwbNsaWXjhQOziY87 6 MFDzvCyeWqR8ZbDwElX3TYp8D 6CtZzf0JUJtdTtiYX9fcKYzAV mrFw7bqQuscMtaBG8aYJBkcft w IFVzqD4oUFKtuMHqbFirSZ1wT NIyalqlc616CmBsSKU0WAAmrU RtG3OvaH5fMkOsHQDyYMDpA1K l yLXbDEorC195XMypSrP7UVAyb bRwE6WsFBUnwXkgVmN6n2M2Wy 43MyBZZWFyczwvdGQ+PHRkIHN 0 rHtsPNofQGLutA8dLRYaD0q4X lZlHmO5FJelB1XfNXIqzmddKd 68vD4vVsMnHqG3LYybD2EvcnO 6 UMIfvTJkVJchGPS7Z34zi8M0N EWfITAxWWH3rPT9vV7nwWbhzz ogbGVmdDsgdmVydGljYWwtYWx p C683XVWrtUkhXzEVSNKLWDonk GQ+DZSrDGL7tOqiPKdaSLNmaC 9fBQGyA9i3OpXtHmF9TAwcJ4U h AWZjllarGg65cH1cMxAbKxM4E ZpgR7LcjmW2KROsmTXbIEeiQP G0S70ee7K3XZMtLHWkVIP5jDY 4 sT2idSqtbgzjwEBjqUnxmmOhs RdvJJbgILocN224ZRSfhLszZn 6mr1PprfU6lN2oWN07SY06D9S y PjwvdGFibGU+PHRhYmxlIHdpZ JEgULobFZVpZjLukWscHZ0fFu 0sVWPrBSHyfMpfnSDjCvArg3y s RHDgYDddEJ6ahOgcZ4OlsSG2E UYrq7m5Rg43P12pV7EacQN+PG TmdAV0yCY1sW0pXiHgJdC0NMo p K183NtBiyGMnSnzxq6rgb2qng Ja9VgGtWGSgywVdmDvcQOW5g2 MjEl16S82gJOvgMXMbAQNfLOC i IUKfoByzae4jiA3kFa7+PGNvb FM8jAW4jE3nKmFoJlZ1ORgtK1 98QuQqiAQrAuqmS55dY5EptNU + FTQmBay7CFDoyJvtAI7mbIFwY RwzJh2bQSK2IzGeVtKlAXwqC6 FtAPWvxlyllwyilJU4EEXwXHE w aG20Dq2vfYcqCo5kULFeNBQ2Y GGuqGGkF8QjdJ2kVtFuMCYjLB JqH9KksMJeKYwvX514LDiyJuG 7 FGKroyOeU8KrXVEizVnjBsY4j 7F1Db0XbOyomHCaLW2jTiQgYB g2C7JrYpz1QNGluSyfFS5gzEE k ZHqiMh2ccMkobBpnNF1wXJHxg vrnp999AjWtx5xvWWBiqQBrMO snHCU6Q39ri3U4XTVgIZBiUAL 7 dBG0sY1vdLhcxtngtBZlgWwwz jXxzWunOEqeQSyhF409LIRjsD hcPgXPIim5Y5WzUqm7XQOcjGb s WH0dkWZrKStjRu1cxTaugMvtL A9nINUnthoqo818ZmCuy5yjSV EjdIZxVDbfIIW8E96rx8L8ONV w FRGxPII1bVJ8sS5quOwvedrmc GVmdDsgdmVydGljYWwtYWxpZ2 40AYLphPeqCo8UAbl4W4ScVjr 0 DTKawWvzVH6iwOTaXSgwAb2bm PbozPqzZI2bDFFpiacct920Qt Ohr3dpOIOorUAaMAhlOXU0T70 s a2U2XURfEPNwUGK1hHK9oF2yc GlnbjogbGVmdDsgdmVydGljYW wgOGraC656CLUmzTlkPgWjlWW y OjwvdGQ+EU48pi75N9EgCxcdZ ib2VVPsJPC7xSL1sM4hMMCuXR lmz8A4hXA9B0CrjsMuzo3ic1r s YXB (more content not included)... [facility] Consent Formson 02-08-2021 Consent Forms [id number]#1.00OTGTI [facility] Consent Forms [id number]#1.00OTGTI [facility] Discharge Instructionson Discharge Instructions [id number]#1.00OTGTI [facility] Inpatient Patient Summaryon 02-08-2021 [place] [address] Patient Discharge Instructions Name: KATARINA CAMARA : 1945 Patient Address: [address] [place] [address] Primary Care Provider: Name: NICOLE VARGAS MD After you are discharged if you find you have any questions, please, call [phone] ext [phone] to speak to a nurse. Discharge Diagnosis: [...] alcohol and/or drug addiction problems; contact the [facility] 24/09 Crisis Hotline -Text 4HOPE to 695806. If you received any narcotics, sedation, or [...] business decisions or sign any legal documents [facility] would like to thank you for allowing us to assist you with your healthcare needs. The following includes patient education materials and information regarding your injury/illness. KATARINA CAMARA has been given the following list of follow-up instructions, prescriptions, and patient education materials: Follow-up Instructions With: Address: When: Bernadine Diaz [address] [place] [address] Business (1) 12/17/2020 11:00 AM With: Address: When: NICOLE MCCULLOUGH[address] [address] Business (1) Medications During the course [...] 1 tab(s) Ora (more content not included)... Normal [facility] Outside Recordson 02-08-2021 Outside Records [id number]#1.00OTGTI FF [facility] POCT Glucose Levelon 021 Glucose [Mass/Vol] 105 mg/dL Normal 74-118 [facility] Comment on above: Performed By: #### 4 [id number] #### [facility] (DEFAULT) [address] [place] [address] Pharmacy Noteon 02-08-2021 Pharmacy Note I have [...] [Verified on: 02/08/2021 09:18 EST] Nury Soto [facility] Telemetry Stripson Telemetry Strips [id number]#1.00OTGTI [facility] Consent Formson 02-07-2021 Consent Forms [id number]#1.00OTGTI [facility] Consultation/Specialist Note on 02-07-2021 Consultation/Specialis t [...] [Verified on: 02/07/2021 07:57 EST] THADDEUS GAMING [facility] MAGR Postoperative Recordon 02-07-2021 MAGR Postoperative Record MAGR Phase II Record Summary Primary Physician: Bernadine Diaz DO Finalized Date/Time: 02/07/21 09:54:12 Pt. Name: REGINA CAMARAMALINI Landry./Sex: 1945 FEMALE Med Rec #: [id number] Physician: Bernadine Diaz DO Financial #: [id number] Pt. Type: O Room/Bed: [facility] Admit/Disch: 02/06/21 08:56:00 - Institution: Phase II [...] Signed By: Jordyn Young RN 02/07/21 09:54 [facility] MAGR Preoperative Recordon 1 04-10-2020 MAGR Preoperative Record MAGR Pre-Op Record Summary Primary Physician: Bernadine Diaz DO Finalized Date/Time: 02/07/21 09:20:14 Pt. Name: KATARINA CAMARA /Sex: 1945 FEMALE Med Rec #: [id number] Physician: Bernadine Diaz DO Financial #: [id number] Pt. Type: O Room/Bed: [facility] Admit/Disch: 02/06/21 08:56:00 - Institution: Pre-Op Case [...] consent correct. General Comments: Pt arrives to [facility] ambulatory. Pt has #5 pain in right hip, she denies cp, sob, cough or flu like symptoms. Pt denies pacemaker/defibilaltor or sleep apnea. Finalized By: Kristina Schulte RN Document Signatures Signed By: Kristina Schulte RN 02/07/21 09:20 [facility] POCT Glucose Levelon 021 Glucose [Mass/Vol] 137 mg/dL High 74-118 [facility] Comment on above: Performed By: #### 4 [id number] #### [facility] (DEFAULT) [address] [place] [address] Glucose [Mass/Vol] 111 mg/dL Normal 74-118 [facility] Comment on above: Performed By: #### 4 [id number] #### [facility] (DEFAULT) [address] [place] [address] Glucose [Mass/Vol] 151 mg/dL High 74-118 [facility] Comment on above: Performed By: #### 4 [id number] #### [facility] [address] [place] [address] Glucose [Mass/Vol] 126 mg/dL High [facility]118 [facility] Comment on above: Performed By: #### 4 [id number] #### [facility] (DEFAULT) [address] [place] [address] Anesthesia Noteon 02-06-2021 Anesthesia Note Patient: ROCKY [...] obstructive pulmonary disease (COPD) / SNOMED CT 05824818 / Confirmed Hypertension / SNOMED CT 9713371377 / Confirmed Hypothyroidism / SNOMED CT 07045404 / Confirmed Kidney failure / SNOMED CT 65640335 / Confirmed Diabetes type 2, controlled / SNOMED CT 560927717 / Confirmed Physical Examination VS/Measurements Vital Signs [...] on: 02/06/2021 15:15 EST] Jeff Bunn MD [facility] Anesthesia Note Patient: ROCKY CAMARA Age: [...] obstructive pulmonary disease (COPD) / SNOMED CT 04738818 / Confirmed Hypertension / SNOMED CT 7667192168 / Confirmed Hypothyroidism / SNOMED CT 24244298 / Confirmed Kidney failure / SNOMED CT 97082813 / Confirmed Diabetes type 2, controlled / SNOMED CT 213076296 / Confirmed Resolved: CHF (congestive heart failure) / SNOMED CT 31705122 Resolved: CAD (coronary artery disease) / SNOMED CT 21036130 Resolved: Breast cancer / SNOMED CT 940242106 Histories Family History: Aneurysm Sister Brother Brain tumor Brother Procedure history: ESWL of kidney ([id number]) on 12/29/2020 at 75 Years. Comments: 01/19/2021 13:20 Kristina Johnson RN Left [place] node ([id number]) in 2016 at 70 Years. Lumpectomy of breast (9266304809) in 2016 at 70 Years. Comments: 11/04/2020 13:16 Chelsi Paniagua RN right ESWL - Extracorporeal shockwave lithotripsy for renal calculus (915669201) in 2007 at 62 Years. Hysterectomy (459329008). Tubal ligation (196403117). Appendectomy (518604738). Ganglion cyst of left wrist ([id number]). Laparoscopic cholecystectomy (67288271). Colonoscopy (303867856). Social History Electronic Cigarette/Vaping Assessment Electronic Cigarette [...] 09:10) Review / Management Laboratory Results Plan [place] [employer]#(ASA) physical status classification: Class III. Anesthetic Preoperative Plan Anesthesia: General. . Anesthetic plan, risks, benefits, and alternatives discussed with the patient and/or family. Patient verbalized understanding. Anesthetic technique: General anesthesia. [Electronically Signed on: 02/06/2021 09:57 EST] Jeff Bunn MD [Verified on: 02/06/2021 09:57 EST] Jeff Bunn MD [facility] Coding Summaryon 02-06-2021 Coding Summary HTMLBase 64 PwcusintLIz3wSe+PGhlYWQ+P Z8ZZHBlW48oxRMkwE9ZT7dBXH 3NZVPKHGSSLE1FBZ8zyFY7YHy xK5FuiqWn EdtffYZaHM99PAt6BFI1yRilA DefsY3ypNMuT8i7CqGpBE95uA 58AEofYSQuZvZ0HbYeizukfUN y J9naCwGvwRPmGzl+PHRhYmxlI HdpZHRoPScxMDAlJyBzdHlsZT 7sGz8wYMUmELFjgWdtdSSgRqY j l7nxUFXnWTggNR1fbIcrT6Sdt BM6DQOsi4h3En65lBH+PHRkIH U1fJgdDLjos694ZbKbk4leNWX 3 sYWwLTzqXFD4L22ve3N9CHKfB PFxREX5hTM7sC7syDwwesylK3 DajCNfApO0DHB5nLLgkU0rqLk n xmmaaX3mMdc+L44IWU2ZVOHSP R9FIkt2N4LlXhxksTQ+PC90YW JbQK12gUCkiWIvb3uraJm8OlZ w QCFlCLV0tClyGIzhb0OpRVCcV 77xtDXpy3I3WHEtnQdorWDdNp OckKT0hI4zEVwirnjnb8ukhnb n Zsfzk8rrbi26nI29W02aWOszZ SBsOXW1GRJhPXQksLltuu3vnU 9wIi8+ULxfv0whc3vdyHz2HfV w KGPjukDtuVebDSS2b9ImPo79J 8KsoNrjp0CmMxp7gf61aKOta2 B4hEQ2JUwwWKAzeH7kPKgcVsN 6 MUYiSqCfhN81dXOpVErnDd1tm RttgXbpMP5yWCNlqkrtJMOfmD 8zLMQekIPwaDcxTL0zYSEndfy m j159XrJkVWZ1DTBvqXToA1Dgi N0xPbJyWWUgEXMfJ8MjpTTsUE xtC624REnyQyM4VAXyvvCzD7A s VOOibGbmCuD5r5F7Yv4Wi7Mba etuWQB3HDwtZYBzXjU9HeZwVi B4W3VaJup2RMWgdOwsHC4eO2N h MXXplfyefwmjcKV0FXQyHKThu I26pAQlQMrtOf0hq1V9c627GY ZzDUNpeL32Dn6oqWoiQTOhwSO U pO9quobtx3bderowGtJxCVSbS Sc1EVt4MPOqwKbfOdIoYPH8On B5FLL8pKBowL1afRbytxwbzV4 w Oyc+N55qkM3kRSK3RJD3odniC UCokoUuIA12SR84R9WfVlhgoY FibGU+GGEjrkNxuFmzHO4bPaQ j w3lhc8PrCOqlE4VfRPInYPhhR nr1YOCaCON8sXU4aP4jZUIeHU enn4C4gCO1D8BuxnAicq4px4n s KXQuOIkxL24ayTGpy3D0UWFon EY7VJYrdJnqZnCedU33Ffs+PG AacNcyd4ImGopzd3kdv2aawNu 9 YiUbFJUfkbXwaQsaULD0l4RmS j01X83yQScxIMEkLQZkUMLwHD FxvNmxqj3ioO8zEd6+PGNvbCB 3 xWN3kB0lJOGxOlM8XQtrR428W pJvxIHlIqehr1zil5pkbIt9Yb NyXPAynnMgwBlkJCW5o1BnMu3 8 A61uLObdTVNlITHkXBEeXPQgh Fdqes4rrP1wYw4+ZY1qa7appw 31sO29fAO+HSVmQJR8iHldMDu w LFCqwL2iEWkrXhM5PEJkSwIpz N54cLWmAWptKw2bsQnukCgaLM 6eQSOuazqbk933CmOoi9daQGP w eWSdNWnqPTI0Z79xm2O7FGRkT JAnGRF7dNX8dE3nvBzldvxkcX DbwZnekpYomJipAYieCNauK42 6 IHRvcDsnPlBhdGllbnQgTmFtZ Xa4H5BfOvu7ZOQkjElgZM2ebP RrDNjmFb0onElkdIkwAN7vZXM p qdbsb155HiClp0zyDTUobZPmV UjbUNE2J68jt3J0XICvUMUsBV J7yTW4mM5srVcnuunxdOJddIs g atQvtAnwGFznLOqjH037AZShh SpdWiImdlIiKQXapPP4FL78UC 78sOSqq6X1yVE4X7UcOXMexrk t setnhZF8HQVaUKAwxC78Wu1bd AgqDw0yZFOoZAE2DFRtzSKvG6 GbhI9vZdLjGDHeDNUrZ1DotVC t OHxtB298FZblQuA2UGMcfpZvO 7VvFFUeaVazOcF8j9P7Ne8XS9 Z5WY52ES13jMJky5I5pOC4A9V h OSYydmonkmjlfMZ7BXBuMDNrz N93Fm8kvGcxOi4nIQBcDNS4PD GojADoP6TdqL1rGvWbVMSnSKI w Y5HxrHAbNAtbM632ELhyVbF3D CEddpMnN0RmHWXjcRavEsN5f5 G8Js6PUTo8EA02TM13bBNmh3Y 5 iOC0Q3YwARFpzudfiizpbFP7M TIcNIWqzF97Yp8abGbgDm2bUU NwMQA5JQMicAHvU1HixM9tBxK j TIXkOEDbB3VjgHOlWLayY966D NjfVuK3JWXfofIyQ3ZcZRZagZ ygHzD5w1J6Zc1NPZNhZC66BBW 5 cFX4IG85ZI89G6TkWwbocSXjj +PHRhYmxlIHdpZHRoPScxMD VpCvBmoMqmQB5zDe0jHOTuDMX v mOjlhGErNyQqn0noEIHiFAriP F5vuTpqU3RrgIA0GQKhp3d2Gx 31Y20dK0JqgHN+KOLarIN4bIY 0 oU7iTyUfFnG5ZKjjG554YmEay RQjSsxza8ijo9fsyCq3GfC8BP DygpIewDxxPPE8v4HlYt57N83 s IHdpZHRoPSIxNSUiIHZhbGlnb f8coV3fUr8+KODjaIA7zFO9nL 9nLeAmXyP7ZGujX467PaDrmAB v Fppba8htt6reuFx1AcOyPCIro jArtHkgBSB2m0DsMv19S5CopV htl1YpGpi5hq58qXGgp5X8xIL 9 I1VpLMMwevjwyQDgiAkfSS1bP ZSackuwROWzhH6uYZEmP1b3Tm HuMsQ0HXhyE8XgiyL6PHHgbQB g CSojBNS6R39zj6T7FGAiCLFwV SS5iNI3sO3ndKctmgxduKZsrK fvuhTgxXjjAGhlLNqaH702VQV v nNobNHYqaG6cMTTcbUUygDjzS Y8lOTFuflxiKl1WMF1MKZwgUx 1JS6VjCBtxvCN+IKTgHDZ5mLj l KAciFLXqyW9lVUYuR9g3FaGcN zN3QUshA4XgTKCdjqjvHc53dA 6jSbYzNzQ6JVwlJ0MwytY8JCC w uTDjFWspCWZ8H79kf4T6QNWiK BJiUKO5kFC5aQ2jhDjtvldyuW WehDcpcaWrvPkyFRvuSKtcD14 6 FYRxmThrAeI2RdLiKaT2OOk5D 9LwUvq0SUNgfHfeSF7jtEPmRV hdWq7nvJurjRznCE0wLUAwrcn w HQLkgW8vQYPkhEIizQwqTI6iE IVsqxvfi175SjPcWJN3XTPmbU IvJ8QdaF0xSpRhNCUvDAQpT3X l fHAcVUlwG337RBgiQoI6STHmv lUxY0SgKARveDenYwG1c3Y5Ay 43MyBZZWFyczwvdGQ+PHRkIHN 0 cOzxCYmhLCCkcZ6oUFTgB2c0N wEiBhI7FDujP3LpBCYdxxaeMe 85tD3lPlTfAfH0OBmbJ4IczkG 6 GDJecITzXBbrBWA4H94us9H9Q LTeCVZaKTG4iUF6fA5xiPiqpl ogbGVmdDsgdmVydGljYWwtYWx p H077WAMorWunMnAKBHHMAKgsl GQ+WBLmNTU1sXpiFItbHZGxaW 6sPMLoX2e0IaOpMeJ7CFphE7M h PJKpjjwxJf73cI4dBxJoTtU3Z ZgcY7UrbkK5KCYyeUWxPOgoHJ M7Q91bq8E9KAKjSQYjFDD3nUG 4 tO5sgIefounbaNWdsVpjnnFrd VwgVTfdHWnxE745ODMbnImiHx 2TRP22ID27I9CgRrscrQBcbAA + PHRhYmxlIHdpZHRoPScxMDAlJ vBowIcdSF9wJw8nXALfTJSgdS trxJShSpHlk3dmQCYaCAkrMD3 w fYzcH4SwqGB9KIDqe8i9Ca75Z 04jI8FxqUX+RIImeQV6bHA5yE 2sGeLpAgY9FRohC142CfDwpPZ v Hqrlj1hfm7ulwHp0KoTeDRPin oQfaAqdIMH8o3BoFc82M79aQI dpZHRoPSIyMCUiIHZhbGlnbj0 i nG6kMc5+NCVngWS6uUU6zJ4tV dBgJoX8FNtyA231IiYgjAVtXc brM59lX0CulEE+WDOpSxc1BXN z tGbnZY6dvNNjEApdQg6ySUT8R yFlKuSwXWaeY1KeUYEazlropq okxCV3DIBaBVGcpG87Lx6qhDz g Yj0jFWWnVMS6WLZvtJNnY3Ric X4oPiFxIWAaZMGoI3IkfQRxZR thF896BYzlMuW5LOVvasZeF0T s JHVzrSjbRrE8m1D2Xn9WaMaqz BOgAD0aCqSvLYz5D3AlDkq5MJ ZieJpoGU8wgYFtOVijWw9boFb o vVojUL3xPLCcwfhcw387JwGhz 2sqKOKuzZQuQKxyOHW8D11bp8 X2KEPzTLWwSGN7wXK9oZ7rwWu n bjogbGVmdDsgdmVydGljYWwtY LgfM348HVVjcRzpYpADLuj7Q9 DtWer0KUBuqYibNC6afFMkVYk u Aj3ogKlhwBgaAN2gDVQhjnnug 072LxFxn8aoKTBbbJFfEDjhRB H1O96dh6Z0VKLzCMNuCRA6bBR 4 kX5gaMmndlvnyJKqeGwvzjDwa QzfKQkmUVxyY923JIGvfYtnAq 5IAhn8F5KsKca3VTDjuValNQ1 n rPWkSAysTt6hbVcaeDiyCX6bD CVweecdg746PhBpz0fqYSDjkV WrNHlsTPE2X52cw1F6NOBdQUR w FBB2aQE6fM9sqVxhwodewAOfd AskwsPiwSahQWkaFHmgE802CV RvcDsnPlBheWVyOjwvdGQ+PC9 0 ki75E8EgAwcyNcw1VZUlKQM2m SV4vO6jWGXzSWaok7U2dRO8J4 RjizXiua5gs7vkLHFzWPpmG47 s bGF (more content not included)... [facility] Intraoperative Record [facility] Intra-Op Record Summary Primary Physician: Bernadine Daiz DO Finalized Date/Time: 02/06/21 13:59:40 Pt. Name: KATARINA CAMARA/Sex: 1945 FEMALE Med Rec #: [id number] Physician: Bernadine Diaz DO Financial #: [id number] Pt. Type: D Room/Bed: [facility] Admit/Disch: 02/06/21 08:56:00 - Institution: Case Times MAGR Entry 1 Patient In Room Time 02/06/21 11:39:00 Out Room Time 02/06/21 13:54:00 Anesthesia Start Time 02/06/21 11:39:00 Stop Time 02/06/21 13:53:00 Surgery Start Time 02/06/21 12:11:00 Stop Time 02/06/21 13:48:00 Last Modified By: Jordyn Young RN 02/06/21 13:58:02 Case Attendance MAGR Entry 1 Entry 2 Entry 3 Case Attendee Bernadine Diaz John M MD McMurray CST/Gómez COE MANAGER RELIABILITY Role Performed Surgeon - Primary Anesthesiologist of Elevator Dispatcher Record Time In 02/06/21 11:42:00 02/06/21 11:39:00 02/06/21 11:39:00 Time Out 02/06/21 13:35:00 02/06/21 13:54:00 02/06/21 13:54:00 Procedure Arthroplasty Total Arthroplasty Total Arthroplasty Total Hip(Right) Hip(Right) Hip(Right) Last Modified By: Jordyn Young RN 02/06/21 Jordyn Young RN 02/06/21 Jordyn Young RN 02/06/21 13:59:33 13:58:05 13:58:05 Entry 4 Entry 5 Entry 6 Case Attendee Nanci Blake Kristi L MANAGER RELIABILITY Jordyn Young RN Role Performed Elevator Dispatcher Scrub Personnel Converter Skimmer Time In 02/06/21 11:39:00 02/06/21 11:39:00 02/06/21 [...] Primary Procedure Yes Primary Surgeon Bernadine Diaz Right Gómez DO Surgeon Comment RIGHT TOTAL [...] RN 02/06/21 12:18:2 (more content not included)... [facility] MAGR PACU Recordon MAGR PACU Record MAGR PACU Record [facility] Physician: Bernadine Diaz DO Finalized Date/Time: 02/06/21 15:03:15 Pt. Name: REGINA CAMARAYCE Stella Vo/Sex: 1945 FEMALE Med Rec #: [id number] Physician: Bernadine Diaz DO Financial #: [id number] Pt. Type: D Room/Bed: [facility] Admit/Disch: 02/06/21 08:56:00 - Institution: PACU Case Times MAGR Entry 1 In PACU I 02/06/21 13:55:00 Discharge from PACU 02/06/21 14:55:00 I Last Modified By: Maria Isabel Lewis RN 02/06/21 15:03:13 Finalized By: Maria Isabel Lewis RN Document Signatures Signed By: MariaI sabel Lewis RN 02/06/21 15:03 [facility] Nutrition Noteon 02-06-2021 Nutrition Note Pt [...] for changes in wts, intake and labs. Normal [facility] Operative Report - Surgeon/P mily 02-06-2021 Operative Report - Surgeon/Physician Preoperative diagnosis: Primary osteoarthritis right hip Postoperative diagnosis: Same Procedure: Right total hip arthroplasty Surgeon: Mynor Diaz D.O. Anesthesia: General Indications for surgery: Progressive loss of function and increasing pain with radiographic findings consistent with advanced osteoarthritis of the right hip Estimated blood loss: 200 Complications: None Findings: Ohxo-xk-xizn in the right hip joint Procedure summary: [...] on: 02/06/2021 15:23 EST] Bernadine Diaz DO [facility] POCT Glucose Levelon 021 Glucose [Mass/Vol] 207 mg/dL High [address] [place] [address] Comment on above: Performed By: #### 4 [id number] #### [facility] (DEFAULT) [address] [place] [address] 38949 Glucose [Mass/Vol] 179 mg/dL High [address] [place] [address] Comment on above: Performed By: #### 4 [id number] #### [facility] (DEFAULT) [address] [place] [address] 02402 Glucose [Mass/Vol] 112 mg/dL Normal [address] [place] [address] Comment on above: Performed By: #### 4 [id number] #### [facility] (DEFAULT) [address] [place] [address] Patient Handouton 02-06-2021 Patient Handout POST OPERATIVE [...] done to rule of a DVT. Normal [facility] XR Hip Complete Righton 12-0 XR [...] 02/06/21 4:53 pm Technologist: AYLA CASIANO Normal [facility] 2018 Novel Coronavirus (CoVI D-19), ABIODUN LCon 02-03-2021 SARS-CoV-2 (COVID-19) RNA ABIODUN+probe Ql (Unsp spec) Not detected Invalid Interpretation Code Not Detected [facility] Comment on above: Order Comment: [id number] Result Comment: This nucleic acid amplification test was developed and its performance characteristics determined by [employer]. Nucleic acid amplification tests include RT- PCR [...] detected) result in this assay. Performed At: [facility] [id number] [place], [place] [id number] Andrews Mchugh PhD Ph:[phone] Performed By: #### 6 [id number] #### [facility] (DEFAULT) [address] [place] [address] Progress Note - Nurseon - Progress Note - Nurse Spoke with pt rega rding arrival time of 0900 and NPO. Verbalized understanding. [Electronically Signed on: 02/03/2021 12:36 EST] Monalisa Miller RN [Verified on: 02/03/2021 12:36 EST] Monalisa Miller RN [facility] Coding Summaryon 01-23-2021 Coding Summary HTMLBase 64 NhznhkebIXi9lKt+PGhlYWQ+P J3FGNCvV89qwZVwzJ2FU4mUID 9SPUNLQZLOEU7DRL3mjZH7DDl gT4BnnwGb YcktdSSlPZ30NXq0GWN8mJyfJ RgjzG2hmNPkM0r8BbUxXQ70gO 79GKfiQSUlGlT8KrFehrvlzCJ y K8rqJjTyxUHyOsh+PHRhYmxlI HdpZHRoPScxMDAlJyBzdHlsZT 9pIr2mEMZdRGCdaBcrjBHsVoW j u4ppWLQzWOjgML1anIkkG3Gaq VP1BZMaf9g7Wv55nQS+PHRkIH M4zNofDJpvh848QmCxk2ryCAU 3 wQIwVYuwACK4I03ac2U6RKReV LNqYJX2mZY8xQ0ccBoximrxB3 DggXJhWqO1CKJ4rOAjoE2sjDr n oshynP0tWqv+J78POS5HNVFXW K5BHis6U0XoSuyaqEW+PC90YW HcIW91kBGggFAby7fjlDr8NiN w ZOVcPJV7nXtpYImsj6ZmRAGfI 47tvSTcd2V5FCMyaOetbNJoCv VjwUJ2iG3hPMwqqkdgr1uwpzu n Mtvrn0zbiv12oW76G62mQYxmZ TOaMLS7EBCsLCDysWjako7mzL 9wIi8+ONbpk3ctv7ramFz9CaR w LEFclnMjcAioILS0h1DvOr57L 5XypKllh8ZqYcc6ix12qOXhz1 W4zJU5OMdxHVBncO1sQStmSvT 6 KYJjZjOqpO89iJNkWHttVq0tx GaesRbxBW3nDMRffsyuYQCahB 7rAFSukTLgxTivRZ7hEUFjsfh m s455ZuJnROV7QRTrrPFxS2Tgc Q9tCeGvCMBwRJCdL1TemJFrKU cfS720TOrlCkP0MNPttxDiH3X s PJNrzDjmWkZ4v0W8Ay0Ml0Hjv zudWXL4QYbyCHKhKdFhMlAbEt N2Y5HzQta7HUHywVynNZ1sH8L h MPJpwoqeqrvqyAL6GBIcFBCzi B63iSRmYWenZw7xm7I6x103GA ZuGHCwnW46Nb3qeAytZELfiJL U uM7lsitxa0xpabaiLyZhOGYmU Eb0OJu8EBRajOtyFdSjIHG7Ea E5GXF3qGWjzD6szYibvukhlB9 w Oyc+W74xbA6qPIY4FCD5cbmtY DVwcoLjJB62FG28Q3OpNpuvwA FibGU+QYOwrnMkmNczUC0cVtC j v8qml6GaGGxmL3NxXTIwSEdzZ eu5SYBdVPO1rNS9jD1uDABaQO yer4I4lVT3G1PqckXlyh6ya3o s XDCkRIssT64cwLYdx0K9HGRjl NQ7NSVjbAknUeVrxB62Ufg+PG HzrLomv2MdQttrw4mzs1cgvVr 9 QdUcOXAxuvXrxUuvIRX2o7FeG m37E21hCYgbAZGeFVTjYWGcQK ZabHxfbr3dkL7gVp7+PGNvbCB 3 uVS1zO9qXMIuSkS4YPqmT859S uFacROwWurps3lrb1ccuZg3Il HeTCFhikCfgPumGCP4m3AbQi6 8 W89vQTwiRYMcZGVyEBWpSCUqu Fqcdh5iaI0aMd5+DP6lk4qlbj 55eM95tES+ZIDaMQA4zTfuWGg w WCJjfU8dGMilUbS4JNLpRrAkm Q36sGPzRLjjHz9mkFdhiGtgCE 1xQAWtuedoa621SnSjw6daBJQ w eFGoNXmpUSQ3A63yk1S0XFPeJ CMmUBM5wWT6wJ9wmGhaaxqdgH VrdKgswoLmsHjxMKtyASzbE61 6 IHRvcDsnPlBhdGllbnQgTmFtZ Iu4X1ZbBql2RGZinRsnVR8fgT SxBCgnNy8mnTofvUevQD5sDCH p hjqgg201BxOwo1ulPVTbxOUoX IrnJUD3M97nf1Q9CNOkCELaHP R7jGB2nQ1jkYpiljtbnJDvgXb g igLowClxKTvuMJajY625HSMwt XveWaBoppLbRJUmmEB9RJ68XU 07jLDdd4Z6jVZ6T8WzXLTfqjc t kksuiVB9TZVjIUYcxU88Zb4ah OqmTm7mLHFcHFG7UBWlfIXkS9 OpwM1rOxEtCOUnMDLnR2JdlES t LKjyR291GFiyNoE6FUUknuXjP 1UoNCWjqOblJxZ3b9A4Wl1RY0 Q0XP29YX03pQJqa5C9fIL4V2T h LIAszrodifyuwDG4YBJqGCEmv S00Hx1snKfaRx1fYLFdPEJ4QI FgdTDiO2TwdU3pJfKjEJBdNMD w W0AgoWXkEIfgH269QWakMyW5V CGvipElN9RpHLYyfJnrFvX3f8 X1Sy3PAUr8YW19EB90hFPwx2N 5 jLX7O3NyBRUgpnojuzhbvLH5B ZVmZVKldX75Am6hnNytSp1dHI WkZFH7EMBriIYxA1JizC6xAhU j EFIuFPSgE6MrvMDtOWtwX651B GulJbP5KKFzgzRrG7MaQIEnmB pqNlN7t7M1Td0ZMUYmKV78MTH 5 tAU9HC40TU20B3CbGsifzPWvr +PHRhYmxlIHdpZHRoPScxMD HqMmCzxRxrIY0pJx7kZQDoDCB v wGovaACfVbSli0mnVMLoDOldN E6gdOvgA8HcgKL0TYPve9n7Rn 23X76cE9LreGP+KLCxjNT9rPX 0 sK1zHbAiFjV9JYasN062NfTux GXfAkrgc9ktv6jobLi3VsU9UG RstmSkrAteSQU1i4CmEh80X62 s IHdpZHRoPSIxNSUiIHZhbGlnb t4ngL9qBi7+YRGksVG8iZK0eE 6aVrYjBpN7LYrrR354LzOzfJE v Yuppu3qzg3bjyDe0SnCoSGExp gEirMljVCL5v9JbXr55K6IihQ qkm9JrZyo8zu83lBIwt8U5gMQ 9 N1ImVAHeoirywCLqsUogKD3sG JXkdkzwUOXhqS7zGDSzR1m1Zq MvSsG1LBuwL0ElqmW5SVKahIY g YGcuRHR2X48ft5L5CQHzCKPuX OX5jXX5uN8jzJlkuahgmZWeoB vsofPfiScwRLwlDItbP823RXE v wVzfGTCmqT4kKMYjlKZmvLafM Z8kBMHrrijyIf3EJL1ICOfvWh 6YB9EwOCykeJL+XTTwAMB3sBb l JNrpIINjkB5rITRxX7w7VsBcA cY5QTuqR7SrOEOnzsjzKt18gI 8gHfPbBwE7HOkiV1WjcxD0KWK w yRWqBLnaGUV2Z50qk2E6KJRcP LTkFHG4qMF4kF0bcUszztckwH EweLolliKfdVgjRCpiYPajB49 6 EMJuqJxdRzA6GcGlJfI9QHe3G 4StWhz2NVGiqUbwEJ2ysALjRH gkEx4gsYwroUalGR3vFJCndyg w LVOfhN1kVZUahMHooDbvMA2xP YHkrwxkb792WkCiTPN0GQOmyY MnO1TzxN7aUtXqIEEaJFNuT2L l rHLgMYstZ993LTukCvC7NWBrd pPbG6KgDJXwjJwvKbX7w7J3Qf 43MyBZZWFyczwvdGQ+PHRkIHN 0 zFduEDvfMDSgvT4eYOTgZ6q8D vBlOdK4HWzxN0VsHHUseacjXf 69jX7nJfPeNpP4SOmxJ9MvkhZ 6 MYStrQXdTOwmRDW0Y67cs9I1Q JMqVZKkPJZ5xET4sL0hlPrfdn ogbGVmdDsgdmVydGljYWwtYWx p O609EJVvzUmpKpUXFPWYAMyqj GQ+OKRmJPN7fZtrVPjmMWRcrD 0uRZLqT3c5StHaQhO7TFuvA7P h HRRbriypQo56aW2fEhTlJcP8D MtvR1FthpT3RAYxcZQoYYztQL C1L07ts6A7XGUoTCGzIUC7xXE 4 hP1wqKwukipptUYtjIdukxUba JzrXFckRZzzK805DDYbuIyvDi 0DTY73HU85J7WoNdoziLQscTY + PHRhYmxlIHdpZHRoPScxMDAlJ qEehWojQZ5eNz6lPUHrZAZzvZ fmkPCyKtKki9wnVDWeGTwhQF2 w qZggF3LqgEL4QYQcb0y3Wo86I 78jR7VxuZS+JUDhrWH2dNA6cU 8uIePvElO0WNyrI791QyRifQL v Rdsdj2zny4ptlJv6ExAsVEDtf dOxoObuYSP5h1MfDr23B66kSC dpZHRoPSIyMCUiIHZhbGlnbj0 i gK9pJo8+CLNvbWZ1iNA1mG6uG oQgQmI3BTjhJ335RcFnyGFkNr wvJ84zB5JrhQS+FNAcJoy7PXA z mJupCV1cwGMiDTrbZi2jLYV1B lZiYeDxLBpmC0TdCBPsmaiyea iekDQ3EWRoKOCnmT24Gx2wkDe g Uz3uVUCgWLP6FREkjCJdF7Aba Z6zReBpAOFfJVSnN0TuyBZhNJ taY016YIdxRhU1KIGmuyOlQ9H s YYVycKijMpI3u9I6Sz2QpRplh NBeDT7hEgZrLIb5H0WvKiz9LP QkgBxjHM6rdMKpWRdqQn3hnLa o zFmeVL3dRTRzdfgww341DqSch 8loJSDtiEQjYXjlJYC6P08iw4 B0WMTwWZEnXWA2cPD7yK1ijQw n bjogbGVmdDsgdmVydGljYWwtY YmnR478HVJfwTmsTwAEKvt8P4 VbQsr3DWThkGqwVW1kzWBwTNc u Og1yuGoflUpaFD4hPETpeanna 835SvPib5eqELMdqZZxZSccPC F4B80yj7N8GPAtEABaRNZ1jXZ 4 vB0xbAbcihsubQFkzZnwziVtg PbsWQlzCTmhN955MCCotVzoIu 4SDci4G3UuSdh4ILAhwAfoJK2 n jCToGTagYj8glAaviLigDK3wZ PLgunpqh531MwYif8pjCWTjhU JfLWdvTMF0A37ug4V1QYBzZOZ w KAJ2oTV8oU1cxIpqdxtimFNle FasqlFtcPhvVAcoMNfsU861PO RvcDsnPlBheWVyOjwvdGQ+PC9 0 ug37N8OgTckcVxd1WHMcNXD2i ZC4mK5kONMeBXtvc6G6dRB3M3 ZqjhAvrb4ze4ahPQCuQTenC33 s bGF (more content not included)... [facility] Consent Formson 01-23-2021 Consent Forms [id number] FF [facility] Progress Note - Nurseon 01-03 Progress Note - Nurse Dr Nicholson reviews p t chart and no new orders were received. [Electronically Signed on: 01/23/2021 12:10 EST] Halblaub, Sidsel RN [Verified on: 01/23/2021 12:10 EST] Martha Romero RN [facility] C MRSA Screenon 01-20-2021 C MRSA Screen Negative [facility] Comment on above: Performed By: #### 4 [id number] #### [facility] (DEFAULT) [address] [place] [address] Provider Orderson 01-20-2021 Provider Orders [id number] FF [facility] UA Qcykz4ej 01-19-2021 UA Bacteria None [facility] Comment on above: Order Comment: Urina lysis Microscopic order added on by [employer] Rules system. Performed By: #### 5 [id number], [id number] ####[facility] (DEFAULT)[address] [place] [address] UA RBC 3-5 [facility] Comment on above: Order Comment: Urina lysis Microscopic order added on by [employer] Rules system. Performed By: #### 5 [id number], [id number] ####[facility] (DEFAULT)[address] [place] [address] UA Squam Epi Rare [facility] Comment on above: Order Comment: Urina lysis Microscopic order added on by [employer] Rules system. Performed By: #### 5 [id number], [id number] ####[facility] (DEFAULT)[address] [place] [address] UA WBC 0-2 [facility] Comment on above: Order Comment: Urina lysis Microscopic order added on by [employer] Rules system. Performed By: #### 5 [id number], [id number] ####[facility] (DEFAULT)[address] [place] [address] UA w Culture if Ind Standard on 01-19-2021 Culture? No [facility] Comment on above: Performed By: #### 5 [id number], [id number] ####[facility] (DEFAULT)[address] [place] [address] Breakpoint UA Normal [facility] Comment on above: Performed By: #### 5 [id number], [id number] ####[facility] (DEFAULT)[address] [place] [address] 02935 Color (U) Yellow Normal [facility] Comment on above: Performed By: #### 5 [id number], [id number] ####[facility] (DEFAULT)[address] [place] [address] 70003 Glucose (U) [Mass/Vol] Negative Normal [facility] Comment on above: Performed By: #### 5 [id number], [id number] ####[facility] (DEFAULT)[address] [place] [address] 01515 Ketones Ql (U) Negative Normal [facility] Comment on above: Performed By: #### 5 [id number], [id number] ####[facility] (DEFAULT)[address] [place] [address] 25671 Micro? Indicated Invalid Interpretation Code [facility] Comment on above: Result Comment: Resu lt created by rule GL_MAGR_ADD_UA_MICRO Performed By: #### 5 [id number], [id number] ####[facility] (DEFAULT)[address] [place] [address] 31825 UA Bilirubin Negative Normal [facility] Comment on above: Performed By: #### 5 [id number], [id number] ####[facility] (DEFAULT)[address] [place] [address] 83895 UA Blood MODERATE Abnormal NEGATIVE [facility] Comment on above: Performed By: #### 5 [id number], [id number] ####[facility] (DEFAULT)[address] [place] [address] 67922 UA Clarity CLEAR Normal CLEAR [facility] Comment on above: Performed By: #### 5 [id number], [id number] ####[facility] (DEFAULT)[address] [place] [address] 85708 UA Leuk Est Negative Normal NEGATIVE [facility] Comment on above: Performed By: #### 5 [id number], [id number] ####[facility] (DEFAULT)[address] [place] [address] 82690 UA Nitrite Negative Normal NEGATIVE [facility] Comment on above: Performed By: #### 5 [id number], [id number] ####[facility] (DEFAULT)[address] [place] [address] 48537 UA pH 6.0 Normal 5-8 [facility] Comment on above: Performed By: #### 5 [id number], [id number] ####[facility] (DEFAULT)[address] [place] [address] 88950 UA Protein Negative Normal NEGATIVE [facility] Comment on above: Performed By: #### 5 [id number], [id number] ####[facility] (DEFAULT)[address] [place] [address]206 UA Spec Grav 1.025 Normal 1.001-1.[address] [place] [address] Comment on above: Performed By: #### 5 [id number], [id number] ####[facility] (DEFAULT)[address] [place] [address]4518 UA Urobilinogen <0.2 Normal 0.2-1.0 [facility] Comment on above: Performed By: #### 5 [id number], [id number] ####[facility] (DEFAULT)[address] [place] [address] 07936 Urine Source Clean Catch Normal [facility] Comment on above: Performed By: #### 5 [id number], [id number] ####[facility] (DEFAULT)[address] [place] [address]341 Coding Summaryon 11-08-2020 Coding Summary HTMLBase 64 SscemikeGVd2rIp+PGhlYWQ+P D1KYOElM36ooJVrqH2KE7fUYN 4KQUXJQKIJYZ8MZD0ncOR6LIb kP2OnhhNp OznukKBdAZ51FVv5PJZ8yQmcN PbjgE2yxYIsO3q0FzCuZH73mX 16WOyxPROaMrL9FfVnqtahtNA y M6phSuWfkPHrYie+PHRhYmxlI HdpZHRoPScxMDAlJyBzdHlsZT 8yIn9kWIRxFYIkeWgguCYzWxM j s4guODGfQNbsOP0dfNoiT1Thp MR3BGXcg2k9Yd62xMX+PHRkIH M5tOjkXXnqq273CmUbo9qgCBK 3 jJOdCNonTUE6V34qw6P1YBCeM WMiWGB2mHB4mX3jiAoxdkvvY9 JbhDKwAbO1VYH6tYGpfW6ktKk n cxmhpD5iQhx+Y79ORB0BOEXMN S6NDhy9N7LuXayyxOO+PC90YW ZjRT70vLEgfQNgo5npgFk3TgO w FWWjKBM3gVrgEOdri9CvYYYgZ 00pmXKhe9V5NWQqqYuylFBcRt VxtTZ0mA9hJVsggxvya2dyewu n Rinpk2ndtl96fZ93E66gBLuvZ GXzVOR7QERzTYZylWvxkz0kyC 9wIi8+QBcwv2zyl2grzHq0DcF w FISzgzZoxHmlFHV2z1GsWy97K 7BddQgqb5PmQtl1kf41pOFrm5 B0nPW9JGzeDEAoeI0sMXewFpB 6 UKAvYuOupS21qPJuTUtfCz2zh YgtwFxpHL9eHFVjvipqLUWxsO 7eNVNlnHXwiBblZU2hKISsiyf m t027YbZyHRC4WOWpeCEaZ9Oed V9yZlDqKLAfLILaN0IqwAXyLD tqI140LLagAaY4NSWapaLdV9U s IQWgaEdmBfA5d7I1Du1Xv7Lmu cdbKAT6JOzdXWJ8UkW0VlBnOs W3P6GbTzm5UFSgaRpbKE1gJ0O h OQEkzzjspclwkRF3GEYsIFRdp Z84wMHxCKdhJc3zi8P4n942WT TlJWHwrD33Qq9npJluQRXylPK U zT2eenjdb5uspcqwUiUwQZKjR Uf1KAy5UKZpaXwzNfRnLYE5Tu V7BGQ1rKOjsF2egMavbtkupK6 w Oyc+X43eqJ0wGZP4CIA6odqrU MIqexLmUZ48XJ58U9OzAsehwZ FibGU+PHOyghIjyAwmKC1vDtI j g6mch4SnBSwtL1WeWERmQVbeK ta2BEQvYRJ6xME5rK2gFMDbHM oau1L8yID5J3KdasEqgu6ts8h s TIPxAIihM38bwJQai8T2JWLbp ZX7UYGhcAnuCfWldX26Wfu+PG SeeQrkd7VoVzzra3vzg0hyzUf 9 YwEwHVYssdWziVtmHIT8i8McI q61O02uXCvgFSLoGKNgHERvOG BjqYkrks0lcZ3dWh5+PGNvbCB 3 lOT4cM6mZFIhBjO7RNbjK034Y yItlBXaIpedy6oia6srwUr1By ViVLWmuvBzuRivSVF7v8FnXu7 8 P07wYEndMYHsTCTeSEGcQFYor Fuvae2hrP2eYd5+AN2ic4nafe 05nK07uHA+YOTtYVY4aPdcZYy w GKWymF1xCZmfXfO7CVEqUtOtk Q22kGRyUHbvFv8dkKfjlOozFP 7mUJEmrlcty709EuLws9ziQPD w uGEcESenQDS6K00tu9U8VJXmF MGzBEF0gXS6rV5rmUwovamtnA JybZxbndAqjXmvLVloTVepB35 6 IHRvcDsnPlBhdGllbnQgTmFtZ Ba6L0PmEki1MITzqYgwMJ3niU MqNOpwDr1qoMbshQxkIM3tNZQ p ipdnn505QwEqk4mrBOJijJHyY FjpGDH4B43ed2S3TTMbBWExMV L1tHT8vC0ftIpjbslzsAXkpDc g agIcdStoZGqpSLrwR381YQNms QpvInAxkdKaTMZhoBV6FP13XM 38bYPia9Q3zAD2D3NtHUQeepp t ynljrSK7CEIxIATcvG13Zz3ms QbkHa5nYUUoMYD9VHZwaNOtR5 AgcQ0lShSmJOSoFXTfV8FxgGC t GJznT167VGzhOjI0ZCIuamLkX 6AsETOslQamVoM6z8O1Nj8XE0 E0VW46PV13mRYwx0Q2fYK0J8E h CNSdtqknkvfnyBP2DTTnKVKff H32Nx5xbGpiVt1fOBCuDLI5KH GkoRUvH5ExpU1oUvVgLSTqFDR w J4HjtRRmWVniM972AXbhVnR5U MOhjpEaZ4CgYNCeaJhbIoX9p4 L7Mk4WOWk3UX94YK82vDMes2I 5 bBX9W0OnZSCxglwkojqcrHF6O AWpANQkvZ75Qy8ufHnqAr2mCC SfEBN1TCMluKMpV5FcgE1pJrZ j SYCkCNJlY2OeaWIaDJtxA019C MznOpC5SFKlzsDgQ6LvMENucM zbGnQ5b4C4Lu6YTTIsHD93DQI 5 eLF7DF05MR15J9VgLubhuKNti +PHRhYmxlIHdpZHRoPScxMD NfYfEcwLfhUE8lQy7uKDLhWHI v lVhicIHsNpKli4xcLWLzAUzvB B9ocEczR8DqpOQ8EQRzs8t5Vz 23T79rG7FyfOM+DJIuvMA1aHO 0 dH4yUlOeEyW6MWczB309EgXje BCfHwkrn3sak6ziyDv4GlS5QA KbuqQpuTcwVXO3a3JuGx89W16 s IHdpZHRoPSIxNSUiIHZhbGlnb c0maL4tFn9+QQTeiKH2sAH4iL 1cFbVzSzP4FSahQ305HyOwkQX v Yohfx3caw5ceqBx2AkDtEMDik xZmsKpvEUS6p1BrZb01A4BgsR bic3YdJyg7hr30hYXfi1V1rIA 9 P3ZeYOErpefffFGpxEqkAT4oG ZObxsjxBLYpmG2fXNGyM9k7Ic JpVzV2BWmaL5OatzQ3MNBxuMW g RDnfSND2U64ti8C5HQDrJAWpJ MZ3dVN1tM2ucEjdlxqupYNaaG fumjSecOqnTMmzIIbuT387NIP v oHsqAZUhfP3yGLQppJMkxOcqM J3lWWLihthvRq0HDO3MGOhiYd 9HE1BgFXjivYE+LTZcJPL7oKl l BUyxPKKmvS6tZUFyG4a2DhPyA vI6FWujG0QtEBEzvghwQk82qX 3iDtPiOvD5HAcvS8MumaY0COJ w pMRaLLpkTXM0R46oj8L5OCCqC QXwSRU9rJR1pX2lbAhkwfvofT TftQaoqxYdsOtcHYvsFRftX33 6 IVAgbChxRfI9UoWpOyK0UEu0M 8IdYtf6WDWptRhyFY6ouHObXW ufVy9ujOokqZwtKC2zGUFosuu w UVCftH2mJMZdaXRjxIctUM5pL MDbxuumk142JqAdJOM4IFZmsF VwD8RsdW6wTmYiUWCtSXGpZ7Y l eSAzUUopV322NAayQiL5OJUta aGrT5JvIPIwjZzlJzP5j1C4Za 43MyBZZWFyczwvdGQ+PHRkIHN 0 oMxePMuhTYQsaH1dFMXnM4a7S sDwUdO2PIvzL9CdANVudxobGk 39jR1iObCiWnW9IDdxY4QymnW 6 BUAhtZBkEAewJUN8C04su3V2O OLkWWEcSLN6eBH7kB4imJdhmp ogbGVmdDsgdmVydGljYWwtYWx p E399HGCgzMhuMqCPOZZWUYgpp GQ+EYRpCGH7dHgxQKgeWVCzyM 1tQNDlH2t2MhBiFcA1VTkuS3U h PRTijxkiFe90hI4hCbXpEhU9A OqvW9PubeH5EYVsvMYjKMvwTB L8X07mo7W2PSLyHXPrYHQ6lWE 4 xJ2hzQbfebfwmKDasBgqinWrl RasXLdtXNcpB920NGFxfHvxGd 4FGQ94PD95C2MbSqetiZWgfUQ + PHRhYmxlIHdpZHRoPScxMDAlJ kPfgLxjAN4gJr6sHSUdMLOdkA faxJFsStAzv7ekKTLjFLnqLX8 w iTmoP3GybME5EJVpj9f8Hf04E 82hD1XcwOU+FVPhhST2cUR4aO 4jAcOuXeC8LZjmR891ToIkgNQ v Zqhbm7kgg5otqMa3RdAkDNIkx dGvlTwbWPP0v4YmPh84S95gVA dpZHRoPSIyMCUiIHZhbGlnbj0 i lP8tId1+SKVojMK5hSM6qR4hY oByVfO5EZkiW367OcHzaEBiAw peF90hJ9UocGZ+ATJwUnr2WLG z cUztVL5rzKLxZRnuEv0mNAU4W rJlHkXwDWnxG0XvOEMywfdtjb czmHD9LVBnSOSyeS37Ef4gfUd g Tj6zPIMfSFD6LFJteUQmH6Oos Z1hUvDaTWVbBIFgA4YmzCCaUW amV745ONydBsL4BOBuuqGnD5X s CYXgsEnoSsJ4l5D3Az5YvDhsb TEpNV0iDwTeRAv6Q4NgUzw4CS DhzWzdDI5pbWXkGGvdDr2wmAp o sNvbKR8eNUFyimuct781GoLlf 4yfZDXuwPMdCJaaXFR7Q47qx6 W7MOQaCYKePNU1qOU6dR6ynLy n bjogbGVmdDsgdmVydGljYWwtY GgdN197AMNmrAkbKzUEAef7K9 JbRdx4NRZhePtxSU9zuWSgKFi u Zl3ssFmkeCawXK8nOEOctahzb 530YoIqc1jxKFPmyYQeYLtbSG Q9O98gl2M6SDKaRWMcZLI7oHD 4 mR5unDqravitoQTaiSjyzyTjy LkdOLitESdcV558ZFMfwMrkIx 4XXua3A6BuTmh2ZSTajDniVE7 n kKJyAGaqCs2efKsugXesSB6qA DDifdlmv792YdDve0utOTPgiD IhNHoiPKZ3N70he0M2HSIrAGY w COD1yRI1kO0xqGhguhaznTAvd NmmifWieFvyLIqwXRmmX201LV RvcDsnPlBheWVyOjwvdGQ+PC9 0 lx22S9JsKaceRvy3BTIaJXH9b FK0kR3rEASvQGnty4A4aMN0S5 YkfxJiwr0kg3ehKKXhXHbcG92 s bGF (more content not included)... [facility] Consent Formson 11-08-2020 Consent Forms [id number]#1.00OTGTI [facility] Progress Note - Nurseon Progress Note - Nurse PAT review for jennifer parra on 11-28-2020 done per anesthesiologist, Dr. Arreguin- no additional orders received. [Electronically Signed on: 11/08/2020 14:35 EDT] Kristina Schulte RN [Verified on: 11/08/2020 14:35 EDT] Kristina Schulte RN [facility] Provider Orderson 11-08-2020 Provider Orders [id number]#1.00OTGTI [facility] C Urineon 11-06-2020 C Urine Urine Culture ordere d as a result of parameters set on specific urine dip and urine microsopic results. <10,000 cfu/ml [facility] Comment on above: Performed By: #### 4 [id number] #### [facility] (DEFAULT) [address] [place] [address] .Auto Diff 1on 11-05-2020 Auto Wetzel % 11 % Normal 1-12 [facility] Comment on above: Performed By: #### 4 [id number] #### [facility] (DEFAULT) [address] [place] [address] Baso Abs# 0.0 x10 Normal 0.0-0.2 [facility] Comment on above: Performed By: #### 4 [id number] #### [facility] (DEFAULT) [address] [place] [address] Basophils/100 WBC (Bld) 0.5 % Normal 0.2-2.0 [facility] Comment on above: Performed By: #### 4 [id number] #### [facility] (DEFAULT) [address] [place] [address] Eos Abs# 0.2 x10 Normal 0.0-0.4 [facility] Comment on above: Performed By: #### 4 [id number] #### [facility] (DEFAULT) [address] [place] [address] 85148 Eosinophils/100 WBC (Bld) 4.0 % Normal 0.9-4.0 [facility] Comment on above: Performed By: #### 4 [id number] #### [facility] (DEFAULT) [address] [place] [address] 33748 Lymph Abs# 1.4 x10 Normal 1.3-2.9 [facility] Comment on above: Performed By: #### 4 [id number] #### [facility] (DEFAULT) [address] [place] [address] [id number] Lymphocytes/100 WBC (Bld) 24 % Normal 14-48 [facility] Comment on above: Performed By: #### 4 [id number] #### [facility] (DEFAULT) [address] [place] [address] 29925 Wetzel Abs# 0.6 x10 Normal 0.0-0.8 [facility] Comment on above: Performed By: #### 4 [id number] #### [facility] (DEFAULT) [address] [place] [address] 76727 Neut Abs# 3.3 x10 Normal 1.5-9.2 [facility] Comment on above: Performed By: #### 4 [id number] #### [facility] (DEFAULT) [address] [place] [address] 70363 Neutrophils/100 WBC (Bld) 60 % Normal 44-88 [facility] Comment on above: Performed By: #### 4 [id number] #### [facility] (DEFAULT) [address] [place] [address]238 C MRSA Screenon 11-05-2020 C MRSA Screen Negative Normal [facility] Comment on above: Performed By: #### 1 [id number] ####[facility] (DEFAULT)[address] [place] [address] [id number] CBC w/ Auto Diffon 1 Erythrocyte distribution width (RBC) [Ratio] 13.7 % Normal 11.5-15.0 [facility] Comment on above: Performed By: #### 4 [id number] #### [facility] (DEFAULT) [address] [place] [address] Hematocrit (Bld) [Volume fraction] 45.4 % High 33.7-40.4 [facility] Comment on above: Performed By: #### 4 [id number] #### [facility] (DEFAULT) [address] [place] [address] Hemoglobin (Bld) [Mass/Vol] 14.4 g/dL Normal 11.3-15.9 [facility] Comment on above: Performed By: #### 4 [id number] #### [facility] (DEFAULT) [address] [place] [address] Instr WBC 5.5 x10 Invalid Interpretation Code [facility] Comment on above: Performed By: #### 4 [id number] #### [facility] (DEFAULT) [address] [place] [address] Man Diff? Auto Normal [facility] Comment on above: Performed By: #### 4 [id number] #### [facility] (DEFAULT) [address] [place] [address] MCH (RBC) [Entitic mass] 29 pg Normal 24-34 [facility] Comment on above: Performed By: #### 4 [id number] #### [facility] (DEFAULT) [address] [place] [address] MCHC (RBC) [Mass/Vol] 32 g/dL Normal 26-37 [facility] Comment on above: Performed By: #### 4 [id number] #### [facility] (DEFAULT) [address] [place] [address] MCV (RBC) [Entitic vol] 92 fL Normal 81-100 [facility] Comment on above: Performed By: #### 4 [id number] #### [facility] (DEFAULT) [address] [place] [address] 81746 Platelet 261 x10 Normal 138-427 [facility] Comment on above: Performed By: #### 4 [id number] #### [facility] (DEFAULT) [address] [place] [address] 99386 Platelet mean volume (Bld) [Entitic vol] 10.5 fL High 6.3-10.2 [facility] Comment on above: Performed By: #### 4 [id number] #### [facility] (DEFAULT) [address] [place] [address] 87203 RBC 4.91 x10 Normal 3.70-5.30 [facility] Comment on above: Performed By: #### 4 [id number] #### [facility] (DEFAULT) [address] [place] [address] 26136 WBC 5.5 x10 Normal 3.5-10.5 [facility] Comment on above: Performed By: #### 4 [id number] #### [facility] (DEFAULT) [address] [place] [address] [address] Standardon 11-04-2020 eGFR Non AA >60 Invalid Interpretation Code [facility] Comment on above: Performed By: #### 4 [id number] #### [facility] (DEFAULT) [address] [place] [address] 66681 eGFR AA >60 Invalid Interpretation Code [facility] Comment on above: Result Comment: Soda Dialyzer pepper Kidney disease could be indicated at eGFRs of less than 60 ml/min/1.73m2. Kidney Failure is indicated at less than 15 ml/min/1.73m2 Performed By: #### 4 [id number] #### [facility] (DEFAULT) [address] [place] [address] 55723 Anion gap [Moles/Vol] 15.0 mmol/L Normal 5.0-19.0 [facility] Comment on above: Performed By: #### 4 [id number] #### [facility] (DEFAULT) [address] [place] [address] 73984 Calcium [Mass/Vol] 9.0 mg/dL Normal 8.9-10.3 [facility] Comment on above: Performed By: #### 4 [id number] #### [facility] (DEFAULT) [address] [place] [address] 53122 Chloride [Moles/Vol] 98 mmol/L Low 101-[address] [facility] Comment on above: Performed By: #### 4 [id number] #### [facility] (DEFAULT) [address] [place] [address] 82200 CO2 [Moles/Vol] 28 mmol/L Normal 21-32 [facility] Comment on above: Performed By: #### 4 [id number] #### [facility] (DEFAULT) [address] [place] [address] 00179 Creatinine [Mass/Vol] 0.86 mg/dL Normal 0.60-1.30 [facility] Comment on above: Performed By: #### 4 [id number] #### [facility] (DEFAULT) [address] [place] [address] 11554 Glucose [Mass/Vol] 96.0 mg/dL Normal 74.0-118.0 [facility] Comment on above: Performed By: #### 4 [id number] #### [facility] (DEFAULT) [address] [place] [address] 23042 Osmolality 274 mOsm/L Invalid Interpretation Code [facility] Comment on above: Performed By: #### 4 [id number] #### [facility] (DEFAULT) [address] [place] [address] 14635 Potassium [Moles/Vol] 4.1 mmol/L Normal 3.6-5.1 [facility] Comment on above: Performed By: #### 4 [id number] #### [facility] (DEFAULT) [address] [place] [address] 82302 Sodium [Moles/Vol] 137.0 mmol/L Normal 136.0-144 . 0 [facility] Comment on above: Performed By: #### 4 [id number] #### [facility] (DEFAULT) [address] [place] [address] 00762 Urea nitrogen [Mass/Vol] 15 mg/dL Normal 8-26 [facility] Comment on above: Performed By: #### 4 [id number] #### [facility] (DEFAULT) [address] [place] [address] 17981 Urea nitrogen/Creatinine [Mass ratio] 17.0 mg/mg High 4.6-16.2 [facility] Comment on above: Performed By: #### 4 [id number] #### [facility] (DEFAULT) [address] [place] [address] UA Tohza4mt 11-04-2020 UA Bacteria Trace [facility] Comment on above: Order Comment: Urina lysis Microscopic order added on by [employer] Expert Rules system. Performed By: #### 4 [id number] #### [facility] (DEFAULT) [address] [place] [address] UA RBC >100 [facility] Comment on above: Order Comment: Urina lysis Microscopic order added on by [employer] Expert Rules system. Performed By: #### 4 [id number] #### [facility] (DEFAULT) [address] [place] [address] UA Squam Epi Rare [facility] Comment on above: Order Comment: Urina lysis Microscopic order added on by [employer] Rules system. Performed By: #### 4 [id number] #### [facility] (DEFAULT) [address] [place] [address] UA WBC 50-60 [facility] Comment on above: Order Comment: Urina lysis Microscopic order added on by [employer] Rules system. Performed By: #### 4 [id number] #### [facility] (DEFAULT) [address] [place] [address] UA w Culture if Ind Standard on 11-04-2020 Breakpoint UA [facility] Comment on above: Performed By: #### 4 [id number] #### [facility] (DEFAULT) [address] [place] [address] Color (U) Yellow [facility] Comment on above: Performed By: #### 4 [id number] #### [facility] (DEFAULT) [address] [place] [address] Culture? Indicated Invalid Interpretation Code [facility] Comment on above: Result Comment: Resu lt created by rule GL_MAGR_ADD_UA_CULT Result created by rule GL_MAGR_ADD_UA_CULT Result created by rule GL_MAGR_ADD_UA_CULT1 Result created by rule GL_MAGR_ADD_UA_CULT Performed By: #### 4 [id number] #### [facility] (DEFAULT) [address] [place] [address] 91492 Glucose (U) [Mass/Vol] Negative Normal [facility] Comment on above: Performed By: #### 4 [id number] #### [facility] (DEFAULT) [address] [place] [address] 62105 Ketones Ql (U) Negative Normal [facility] Comment on above: Performed By: #### 4 [id number] #### [facility] (DEFAULT) [address] [place] [address] 32692 Micro? Indicated Normal [facility] Comment on above: Result Comment: Resu lt created by rule GL_MAGR_ADD_UA_MICRO Performed By: #### 4 [id number] #### [facility] (DEFAULT) [address] [place] [address] 16443 UA Bilirubin Negative Normal [facility] Comment on above: Performed By: #### 4 [id number] #### [facility] (DEFAULT) [address] [place] [address] 08037 UA Blood LARGE Abnormal NEGATIVE [facility] Comment on above: Performed By: #### 4 [id number] #### [facility] (DEFAULT) [address] [place] [address] 69949 UA Clarity CLOUDY Abnormal CLEAR [facility] Comment on above: Performed By: #### 4 [id number] #### [facility] (DEFAULT) [address] [place] [address] 40070 UA Leuk Est LARGE Abnormal NEGATIVE [facility] Comment on above: Performed By: #### 4 [id number] #### [facility] (DEFAULT) [address] [place] [address] 83329 UA Nitrite Negative Normal [facility] Comment on above: Performed By: #### 4 [id number] #### [facility] (DEFAULT) [address] [place] [address] 55017 UA pH 7.0 Normal 5-8 [facility] Comment on above: Performed By: #### 4 [id number] #### [facility] (DEFAULT) [address] [place] [address] UA Protein Negative Normal NEGATIVE [facility] Comment on above: Performed By: #### 4 [id number] #### [facility] (DEFAULT) [address] [place] [address] UA Spec Grav 1.015 Normal 1.001-1.03 5 [facility] Comment on above: Performed By: #### 4 [id number] #### [facility] (DEFAULT) [address] [place] [address] UA Urobilinogen 0.2 mg/dL Normal 0.2-1.0 [facility] Comment on above: Performed By: #### 4 [id number] #### [facility] (DEFAULT) [address] [place] [address] Urine Source Clean Catch Normal [facility] Comment on above: Performed By: #### 4 [id number] #### [facility] (DEFAULT) [address] [place] [address] Vital Signs Date Time Vital Sign Value Performing Clinician Facility 03-06-2024 11:45-0500 Body temperature 97.59 [degF] Frandy Patel MD [facility] 03-06-2024 11:45-0500 Diastolic blood pressure 77 mm[Hg] Frandy Patel MD [facility] 03-06-2024 11:45-0500 Heart rate 95 /min Frandy Patel MD [facility] 03-06-2024 11:45-0500 Respiratory rate 24 /min Frandy Patel MD [facility] 03-06-2024 11:45-0500 SaO2% (BldA) [Mass fraction] 97 % Frandy Patel MD [facility] 03-06-2024 11:45-0500 Systolic blood pressure 127 mm[Hg] Frandy Patel MD [facility] 03-06-2024 06:00-0500 Body mass index (BMI) [Ratio] 41.97 kg/m2 [facility] 03-06-2024 06:00-0500 Body weight 99.1 kg [facility] 03-05-2024 18:45-0500 Body height 153.7 cm Frandy [facility]guy[facility]n [facility] 03-03-2024 15:19-0500 Body temperature 37.0 Frandy Patel MD [facility] 12-09-2023 13:07-0400 Body height 154.94 cm DO Hilario Mast Work Phone: [facility] 12-09-2023 13:07-0400 Body mass index (BMI) [Ratio] 39.9 kg/m2 DO Hilario Mast Work Phone: [facility] 12-09-2023 13:07-0400 Body temperature 96 [degF] DO Hilario Mast Work Phone: [facility] 12-09-2023 13:07-0400 Body weight 95.84 kg DO Hilario Mast Work Phone: [facility] 12-09-2023 13:07-0400 Diastolic blood pressure 64 mm[Hg] DO Hilario Mast Work Phone: [facility] 12-09-2023 13:07-0400 Heart rate 95 /min DO Hilario Mast Work Phone: [facility] 12-09-2023 13:07-0400 SaO2% (BldA) [Mass fraction] 96 % DO Hilario Mast Work Phone: [facility] 12-09-2023 13:07-0400 Systolic blood pressure 104 mm[Hg] DO Hilario Mast Work Phone: [facility] 12-02-2023 08:54-0400 Body height 154.94 cm DO Hilario Mast Work Phone: [facility] 12-02-2023 08:54-0400 Body mass index (BMI) [Ratio] 39.7 kg/m2 DO Hilario Mast Work Phone: [facility] 12-02-2023 08:54-0400 Body temperature 96.4 [degF] DO Hilario Mast Work Phone: [facility] 12-02-2023 08:54-0400 Body weight 95.48 kg DO Hilario Mast Work Phone: [facility] 12-02-2023 08:54-0400 Diastolic blood pressure 62 mm[Hg] DO Hilario Mast Work Phone: [facility] 12-02-2023 08:54-0400 Heart rate 95 /min DO Hilario Mast Work Phone: [facility] 12-02-2023 08:54-0400 Respiratory rate 16 /min DO Hilario Mast Work Phone: [facility] 12-02-2023 08:54-0400 SaO2% (BldA) [Mass fraction] 95 % DO Hilario Mast Work Phone: [facility] 12-02-2023 08:54-0400 Systolic blood pressure 94 mm[Hg] DO Hilario Mast Work Phone: [facility] 11-08-2023 09:06-0400 Body height 154.94 cm [facility] 11-08-2023 09:06-0400 Body mass index (BMI) [Ratio] 39.6 kg/m2 [facility] 11-08-2023 09:06-0400 Body temperature 96.5 [degF] [facility] 11-08-2023 09:06-0400 Body weight 95.25 kg [facility] 11-08-2023 09:06-0400 Diastolic blood pressure 72 mm[Hg] [facility] 11-08-2023 09:06-0400 Heart rate 78 /min [facility] 11-08-2023 09:06-0400 SaO2% (BldA) [Mass fraction] 97 % [facility] 11-08-2023 09:06-0400 Systolic blood pressure 114 mm[Hg] [facility] 09-09-2023 14:00-0400 Body height 154.94 cm DO Hilario Mast Work Phone: [facility] 09-09-2023 14:00-0400 Body mass index (BMI) [Ratio] 39.6 kg/m2 DO Hilario Mast Work Phone: [facility] 09-09-2023 14:00-0400 Body temperature 96.1 [degF] DO Hilario Mast Work Phone: [facility] 09-09-2023 14:00-0400 Body weight 95.25 kg DO Hilario Mast Work Phone: [facility] 09-09-2023 14:00-0400 Diastolic blood pressure 74 mm[Hg] DO Hilario Mast Work Phone: [facility] 09-09-2023 14:00-0400 Heart rate 98 /min DO Hilario Mast Work Phone: [facility] 09-09-2023 14:00-0400 SaO2% (BldA) [Mass fraction] 95 % DO Hilario Mast Work Phone: [facility] 09-09-2023 14:00-0400 Systolic blood pressure 110 mm[Hg] DO Hilario Mast Work Phone: [facility] 09-02-2023 15:50-0400 Body height 154.94 cm DO Hilario Mast Work Phone: [facility] 09-02-2023 15:50-0400 Body mass index (BMI) [Ratio] 39.5 kg/m2 DO Hilario Mast Work Phone: [facility] 09-02-2023 15:50-0400 Body temperature 97.7 [degF] DO Hilario Mast Work Phone: [facility] 09-02-2023 15:50-0400 Body weight 94.85 kg DO Hilario Mast Work Phone: [facility] 09-02-2023 15:50-0400 Diastolic blood pressure 68 mm[Hg] DO Hilario Mast Work Phone: [facility] 09-02-2023 15:50-0400 Heart rate 89 /min DO Hilario Mast Work Phone: [facility] 09-02-2023 15:50-0400 SaO2% (BldA) [Mass fraction] 97 % DO Hilario Mast Work Phone: [facility] 09-02-2023 15:50-0400 Systolic blood pressure 128 mm[Hg] DO Hilario Mast Work Phone: [facility] 08-08-2023 09:18-0400 Body height 154.9 cm Nani Calloway MD Work Phone: [facility] 08-08-2023 09:18-0400 Body mass index (BMI) [Ratio] 39.87 kg/m2 Nani Calloway MD Work Phone: [facility] 08-08-2023 09:18-0400 Body weight 95.71 kg Nani Calloway MD Work Phone: [facility] 08-08-2023 09:18-0400 Diastolic blood pressure 58 mm[Hg] Nani Calloway MD Work Phone: [facility] 08-08-2023 09:18-0400 Heart rate 72 /min Nani Calloway MD Work Phone: [facility] 08-08-2023 09:18-0400 Systolic blood pressure 102 mm[Hg] Nani Calloway MD Work Phone: [facility] 05-13-2023 12:58-0400 Body height 155 cm Ruth Ann Gutierres PA-C Work Phone: [facility] 05-13-2023 12:58-0400 Body temperature 97.7 [degF] Ruth Ann Gutierres PA-C Work Phone: [facility] 05-13-2023 12:58-0400 Body weight 98.3 kg Ruth Annbrandy Floyder PA-C Work Phone: [facility] 05-13-2023 12:58-0400 Diastolic blood pressure 62 mm[Hg] Ruth Ann Marlin PA-C Work Phone: [facility] 05-13-2023 12:58-0400 Heart rate 109 /min Ruth Ann Marlin PA-C Work Phone: [facility] 05-13-2023 12:58-0400 Respiratory rate 18 /min Ruth Ann Marlin PA-C Work Phone: [facility] 05-13-2023 12:58-0400 SaO2% (BldA) [Mass fraction] 93 % Ruth Annbrandy Floyder PA-C Work Phone: [facility] 05-13-2023 12:58-0400 Systolic blood pressure 141 mm[Hg] Ruth Ann Marlin PA-C Work Phone: [facility] 05-06-2023 14:11-0500 Body height 154.94 cm MD Nicole Vargas Work Phone: [facility] 05-06-2023 14:11-0500 Body mass index (BMI) [Ratio] 41.2 kg/m2 MD Nicole Vargas Work Phone: [facility] 05-06-2023 14:11-0500 Body temperature 97.5 [degF] MD Nicole Vargas Work Phone: [facility] 05-06-2023 14:11-0500 Body weight 98.93 kg MD Nicole Vargas Work Phone: [facility] 05-06-2023 14:11-0500 Diastolic blood pressure 68 mm[Hg] MD Nicole Vargas Work Phone: [facility] 05-06-2023 14:11-0500 Heart rate 99 /min MD Nicole Vargas Work Phone: [facility] 05-06-2023 14:11-0500 SaO2% (BldA) [Mass fraction] 97 % MD Nicole Vargas Work Phone: [facility] 05-06-2023 14:11-0500 Systolic blood pressure 132 mm[Hg] MD Nicole Vargas Work Phone: [facility] 04-02-2023 09:16-0500 Body height 152.4 cm Nani Calloway MD Work Phone: [facility] 04-02-2023 09:16-0500 Body mass index (BMI) [Ratio] 42.97 kg/m2 Nani Calloway MD Work Phone: [facility] 04-02-2023 09:16-0500 Body weight 99.79 kg Nani Calloway MD Work Phone: [facility] 04-02-2023 09:16-0500 Diastolic blood pressure 94 mm[Hg] Nani Calloway MD Work Phone: [facility] 04-02-2023 09:16-0500 Heart rate 84 /min Nani Calloway MD Work Phone: [facility] 04-02-2023 09:16-0500 Systolic blood pressure 144 mm[Hg] Nani Calloway MD Work Phone: [facility] 02-19-2023 14:45-0500 Body height 154.94 cm Hilario Mast Other [facility] 02-19-2023 14:45-0500 Body mass index (BMI) [Ratio] 41.36 kg/m2 Hilario Mast Other [facility] Other 02-19-2023 14:45-0500 Body temperature 97.3 [degF] Hilario Mast Other [facility] [employer] Other 02-19-2023 14:45-0500 Body weight 99.29 kg Hilario Mast Other [facility] 02-19-2023 14:45-0500 Diastolic blood pressure 72 mm[Hg] Hilario Mast Other [facility] 02-19-2023 14:45-0500 Respiratory rate 18 /min Hilario Mast Other [facility] [employer] Other 02-19-2023 14:45-0500 SaO2% (BldA) [Mass fraction] 95 % Hilario Mast Other [facility] [employer] Other 02-19-2023 14:45-0500 Systolic blood pressure 110 mm[Hg] Hilario Mast Other [facility] 01-22-2023 11:00-0500 Body height 154.9 cm Jacqueline Campos 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 Work Phone: [facility] 01-22-2023 11:00-0500 Body mass index (BMI) [Ratio] 42.89 kg/m2 Jacqueline Campos 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 Work Phone: [facility] 01-22-2023 11:00-0500 Body weight 102.97 kg Jacqueline Campos 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 Work Phone: [facility] 01-22-2023 11:00-0500 Diastolic blood pressure 80 mm[Hg] Jacqueline Campos 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 Work Phone: [facility] 01-22-2023 11:00-0500 Heart rate 76 /min Jacqueline Campos 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 Work Phone: [facility] 01-22-2023 11:00-0500 Systolic blood pressure 120 mm[Hg] Jacqueline Campos 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 Work Phone: [facility] 01-18-2023 12:02-0500 Body temperature 98.3 [degF] MD Nicole Vargas Work Phone: [facility] 01-18-2023 12:02-0500 Heart rate 75 /min MD Nicole Vargas Work Phone: [facility] 01-18-2023 12:02-0500 Respiratory rate 18 /min MD Nicole Vargas Work Phone: [facility] 01-18-2023 12:02-0500 SaO2% (BldA) [Mass fraction] 95 % MD Nicole Vargas Work Phone: [facility] 01-18-2023 07:26-0500 Diastolic blood pressure 71 mm[Hg] MD Nicole Vargas Work Phone: [facility] 01-18-2023 07:26-0500 Systolic blood pressure 141 mm[Hg] MD Nicole Vargas Work Phone: [facility] 01-18-2023 05:31-0500 Body weight 104.2 kg MD Nicole Vargas Work Phone: [facility] 01-17-2023 12:43-0500 Body height 154.94 cm MD Nicole Vargas Work Phone: [facility] 12-25-2022 10:12-0400 Body height 154.9 cm Nani Calloway MD Work Phone: [facility] 12-25-2022 10:12-0400 Body mass index (BMI) [Ratio] 42.14 kg/m2 Nani Calloway MD Work Phone: [facility] 12-25-2022 10:12-0400 Body weight 101.15 kg Nani Calloway MD Work Phone: [facility] 12-25-2022 10:12-0400 Diastolic blood pressure 88 mm[Hg] Nani Calloway MD Work Phone: [facility] 12-25-2022 10:12-0400 Heart rate 77 /min Nani Calloway MD Work Phone: [facility] 12-25-2022 10:12-0400 Systolic blood pressure 132 mm[Hg] Nani Calloway MD Work Phone: [facility] 12-10-2022 11:00-0400 Body height 154.94 cm Jani Willy Other [facility] Other 12-10-2022 11:00-0400 Body mass index (BMI) [Ratio] 42.06 kg/m2 Jani Willy Other [facility] Other 12-10-2022 11:00-0400 Body temperature 96.8 [degF] Jani Willy Other [facility] Other 12-10-2022 11:00-0400 Body weight 100.97 kg Jani Willy Other [facility] Other 12-10-2022 11:00-0400 Diastolic blood pressure 85 mm[Hg] Jani Willy Other [facility] Other 12-10-2022 11:00-0400 Respiratory rate 18 /min Jani Willy Other [facility] Other 12-10-2022 11:00-0400 SaO2% (BldA) [Mass fraction] 95 % Jani Willy Other [facility] Other 12-10-2022 11:00-0400 Systolic blood pressure 130 mm[Hg] Jani Willy Other [facility] Other 10-31-2022 14:21-0400 Body height 154.94 cm MD Nicole Vargas Work Phone: [facility] 10-31-2022 14:21-0400 Body weight 100.24 kg MD Nicole Vargas Work Phone: [facility] 10-31-2022 14:00-0400 Diastolic blood pressure 92 mm[Hg] MD Nicole Vargas Work Phone: [facility] 10-31-2022 14:00-0400 Heart rate 80 /min MD Nicole Vargas Work Phone: [facility] 10-31-2022 14:00-0400 Systolic blood pressure 176 mm[Hg] MD Nicole Vargas Work Phone: [facility] 05-31-2022 10:40-0400 Body height 154.94 cm China Noland Other [facility] Other 05-31-2022 10:40-0400 Body mass index (BMI) [Ratio] 40.81 kg/m2 China Noland Other [facility] Other 05-31-2022 10:40-0400 Body temperature 97.3 [degF] China Noland Other [facility] Other 05-31-2022 10:40-0400 Body weight 97.98 kg China Noland Other [facility] Other 05-31-2022 10:40-0400 Respiratory rate 18 /min China Noland Other [facility] Other 05-31-2022 10:40-0400 SaO2% (BldA) [Mass fraction] 94 % China Noland Other [facility] Other 05-15-2022 14:48-0400 Body height 155 cm Ruth Ann Floyder PA-C Work Phone: [facility] 05-15-2022 14:48-0400 Body temperature 97.5 [degF] Ruth Ann Floyder PA-C Work Phone: [facility] 05-15-2022 14:48-0400 Body weight 100.97 kg Ruth Ann Marlin PA-C Work Phone: [facility] 05-15-2022 14:48-0400 Diastolic blood pressure 97 mm[Hg] Ruth Ann Marlin PA-C Work Phone: [facility] 05-15-2022 14:48-0400 Heart rate 87 /min Ruth Ann Marlin PA-C Work Phone: [facility] 05-15-2022 14:48-0400 Respiratory rate 18 /min Ruth Ann Marlin PA-C Work Phone: [facility] 05-15-2022 14:48-0400 SaO2% (BldA) [Mass fraction] 95 % Ruth Ann Marlin PA-C Work Phone: [facility] 05-15-2022 14:48-0400 Systolic blood pressure 158 mm[Hg] Ruth Ann Marlin PA-C Work Phone: [facility] 03-02-2022 18:15-0500 Body height 154.94 cm China Noland Other [facility] Other 03-02-2022 18:15-0500 Body mass index (BMI) [Ratio] 40.96 kg/m2 China Noland Other [facility] Other 03-02-2022 18:15-0500 Body temperature 97.8 [degF] China Noland Other [facility] Other 03-02-2022 18:15-0500 Body weight 98.34 kg China Noland Other [facility] Other 03-02-2022 18:15-0500 Respiratory rate 18 /min China Noland Other [facility] Other 03-02-2022 18:15-0500 SaO2% (BldA) [Mass fraction] 92 % [place] Noland Other [facility] Other 12-06-2021 12:00-0400 Body height 154.94 cm Jani Willy Other [facility] Other 12-06-2021 12:00-0400 Body mass index (BMI) [Ratio] 42.13 kg/m2 Jani Willy Other [facility] Other 12-06-2021 12:00-0400 Body temperature 97.1 [degF] Jani Willy Other [facility] Other 12-06-2021 12:00-0400 Body weight 101.15 kg Jani Willy Other [facility] Other 12-06-2021 12:00-0400 Diastolic blood pressure 82 mm[Hg] Jani Willy Other [facility] Other 12-06-2021 12:00-0400 Respiratory rate 20 /min Jani Willy Other [facility] Other 12-06-2021 12:00-0400 SaO2% (BldA) [Mass fraction] 92 % Jani Willy Other [facility] Other 12-06-2021 12:00-0400 Systolic blood pressure 125 mm[Hg] Jani Willy Other [facility] Other Encounters Encounter Date Encounter Type Care Provider Facility Start: 03-03-2024 End: 03-06-2024 Evaluation and management of inpatient ALFREDO STAPLES [facility] Comment on above: 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 Work Phone: Start: 12-09-2023 End: 12-09-2023 Patient encounter procedure DO Hilario Mast Work Phone: [facility] Family Medicine [place] Work Phone: Start: 12-02-2023 End: 12-02-2023 ambulatory DO Hilario Mast Work Phone: [facility] Work Phone: Start: 12-02-2023 End: 12-02-2023 Patient encounter procedure DO Hilario Mast Work Phone: [facility] Nephrology [place] Work Phone: Start: 11-26-2023 End: 11-26-2023 ambulatory BERNADINE DIAZ Not Available Start: 11-18-2023 End: 11-18-2023 ambulatory PARUL PERRY Not Available Start: 11-08-2023 End: 11-08-2023 ambulatory DO Hilario Mast Work Phone: [facility] Work Phone: Start: 11-08-2023 End: 11-08-2023 Patient encounter procedure [facility] Family Medicine [place] Work Phone: Start: 09-09-2023 End: 09-09-2023 ambulatory DO Hilario Mast Work Phone: [facility] Work Phone: Start: 09-09-2023 End: 09-09-2023 Patient encounter procedure DO Hilario Mast Work Phone: [facility] Family Medicine [place] Work Phone: Start: 09-02-2023 End: 09-02-2023 Patient encounter procedure DO Hilario Mast Work Phone: [facility] [place] Work Phone: Start: 08-08-2023 End: 08-08-2023 Office outpatient visit 25 minutes Nani Calloway MD Work Phone: [facility] Comment on above: 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 (Primary Dx); S/P PTCA (percutaneous transluminal coronary angioplasty); Mixed hyperlipidemia; Essential hypertension, benign; BMI 39.0-39.9,adult; Former smoker; Class 2 obesity Start: 08-08-2023 End: 08-08-2023 ambulatory CARDOZA M [facility] Ambulatory Start: 06-24-2023 End: 06-24-2023 Patient encounter procedure MD Nicole Vargas Work Phone: [facility] Work Phone: Start: 06-24-2023 End: 06-24-2023 ambulatory MD Nicole Vargas Work Phone: [facility] Work Phone: Start: 05-13-2023 End: 05-13-2023 ambulatory Ruth Ann Gutierres PA-C Work Phone: Hematology/Oncology Comment on above: Malignant neoplasm o f lower-inner quadrant of right breast of female, estrogen receptor positive (HCC) (Primary Dx); Obesity, Class III, BMI 40-49.9 (morbid obesity) (HCC); Breast screening; Encounter for screening mammogram for malignant neoplasm of breast; Osteopenia, unspecified location Start: 05-13-2023 End: 05-13-2023 Patient encounter procedure Ruth Ann Gutierres PA-C Work Phone: [facility] Start: 05-06-2023 Telephone encounter Rosa downs MD Work Phone: Hematology/Oncology Comment on above: Lab Orders Start: 05-06-2023 End: 05-06-2023 Patient encounter procedure MD Nicole Vargas Work Phone: [facility] Family Medicine [place] Work Phone: Start: 04-16-2023 End: 04-16-2023 Patient encounter procedure MD Nicole Vargas Work Phone: [facility] [place] Work Phone: Start: 04-16-2023 End: 04-16-2023 ambulatory MD Nicole Vargas Work Phone: [facility] Work Phone: Start: 04-02-2023 End: 04-02-2023 Office outpatient visit 25 minutes Nani Calloway MD Work Phone: [facility] Comment on above: Stented coronary art raul (Primary Dx); Coronary artery disease involving swinomish coronary artery 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 angina pectoris; Essential hypertension, benign; Mixed hyperlipidemia; Abnormal stress test; Morbid obesity ([facility] Start: 04-02-2023 End: 04-02-2023 ambulatory [facility] Ambulatory Start: 03-05-2023 End: 03-05-2023 ambulatory BERNADINE DIAZ Not Available Start: 02-19-2023 End: 02-19-2023 ambulatory Hilario Mast Other [facility] Other Start: 02-19-2023 Office outpatient vi sit 25 minutes Hilario Mast [facility] Family Medicine [place] Start: 02-19-2023 Telephone encounter Hilario Mast [facility] Family [facility] [place] Start: 02-19-2023 End: 02-19-2023 Patient encounter procedure MD Nicole Vargas Work Phone: [facility] Family Medicine [place] Work Phone: Start: 02-05-2023 End: 02-05-2023 Patient encounter procedure MD Nicole Vargas Work Phone: [facility] [place] Work Phone: Start: 01-22-2023 End: 01-22-2023 ambulatory Ordering Provider Other [facility] Other Start: 01-22-2023 Telephone encounter Ordering Provide [facility] [place] Start: 01-22-2023 End: 01-22-2023 Office outpatient visit 25 minutes Jacqueline Campos [employer]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[employer] Work Phone: [facility] Comment on above: 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 (Primary Dx); S/P angioplasty with stent; Angina pectoris (CMS/HCC); Essential hypertension, benign; Mixed hyperlipidemia; BMI 40.0-44.9, adult (CMS/HCC) Start: 01-17-2023 End: 01-18-2023 Admission to same day surgery center MD Nicole Vargas Work Phone: [facility] [employer] Work Phone: Start: 01-17-2023 End: 01-18-2023 ambulatory MD Nicole Vargas Work Phone: [facility] Work Phone: Start: 01-15-2023 End: 01-15-2023 Patient encounter procedure MD Nicole Vargas Work Phone: [facility]Pre-Surgical [facility] Work Phone: Start: 12-25-2022 End: 12-25-2022 Office outpatient new 60 minutes Nani Calloway MD Work Phone: [facility] Comment on above: Abnormal stress test ; Angina pectoris (CMS/HCC); Abnormal EKG; Hyperlipidemia, unspecified hyperlipidemia type; Essential hypertension, benign Start: 12-10-2022 End: 12-10-2022 ambulatory Jani Aguilera Other [facility] Other Start: 12-10-2022 Office outpatient vi sit 15 minutes Jani Aguilera [facility] Start: 10-31-2022 End: 10-31-2022 ambulatory MD Nicole Vargas Work Phone: [facility] Work Phone: Start: 10-31-2022 End: 10-31-2022 Patient encounter procedure MD Nicole Vargas Work Phone: [facility]Electro[facility] Work Phone: Start: 10-31-2022 ambulatory Facility:[id number] Start: 06-10-2022 End: 06-11-[address] ARY DORADO Facility:[facility] Start: 06-06-2022 End: 06-07-2022 ambulatory SUZE MARROQUIN Facility:[facility] Start: 05-31-2022 End: 05-31-2022 ambulatory China Noland Other [facility] Other Start: 05-31-2022 Office outpatient vi sit [...] 03-02-2022 End: 03-02-2022 ambulatory China Noland Other [facility] Other Start: 03-02-2022 Office outpatient vi sit 15 minutes China Noland [facility] Start: 01-23-2022 Refill Ruth Ann Gutierres PA-C Work Phone: Hematology/Oncology Comment on above: Refill Request Start: 12-06-2021 End: 12-06-2021 ambulatory Jani Willy Other [facility] Other Start: 12-06-2021 Office outpatient vi sit 25 minutes Jani Willy [facility] Start: 10-31-2021 End: 11-01-[address] NICOLE VARGAS Facility: Procedures Date Procedure Procedure Detail Performing Clinician Start: 03-06-2024 Basic metabolic pane l calcium total Hanny R Baer DO Work Phone: Start: 03-05-2024 Basic metabolic pane l calcium total Hanny R Keyur DO Work Phone: Start: 03-04-2024 Ct head/brain w/o co ntrast material Hanny R Baer DO Work Phone: Start: 03-04-2024 Basic metabolic pane l calcium total Johny Ricks MD Work Phone: Start: 03-04-2024 Basic metabolic pane l calcium total Hanny R Baer DO Work Phone: Start: 03-03-2024 Ct head/brain w/o co ntrast material Hnany R Baer DO Work Phone: Start: 03-03-2024 Ct lumbar spine w/o contrast material Hanny R Baer DO Work Phone: Start: 03-03-2024 Ct thorax w/contrast material Hanny R Baer DO Work Phone: Start: 03-03-2024 Blood typing serologic abo Frandy Patel MD Start: 03-03-2024 TRAUMA PANEL Frandy Patel MD Start: 12-02-2023 Bacteria identified in Urine by Culture DO Hilario Mast Work Phone: Start: 11-08-2023 Plain chest X-ray DO Er ic Mast Work Phone: Start: 06-24-2023 Dual energy X-ray absorptiometry MD Nicole Vargas Work Phone: Start: 04-16-2023 Lipid 1996 panel - S live or Plasma Ruth Ann Gutierres PA-C Work Phone: Start: 04-02-2023 Alanine aminotransfe rase [Enzymatic activity/volume] in Serum or Plasma [facility] Start: 04-02-2023 Aspartate aminotrans ferase [Enzymatic activity/volume] in Serum or Plasma [facility]ARD[facility] Start: 04-02-2023 Basic metabolic 2000 panel - Serum or Plasma [facility] Start: 04-02-2023 Lipid panel [facility]ARD[facility]ZA [facility] Start: 04-02-2023 FOLLOW UP IN CARDIOLOGY CARDOZA [place] Start: 02-05-2023 Duplex scan of lower limb veins MD Nicole Vargas Work Phone: Start: 01-17-2023 CT of abdomen and pe [...] MD Nicole sullivan Work Phone: Start: 12-25-2022 Ecg routine ecg w/le ast 12 lds w/i&r Nani Calloway MD Work Phone: Start: 12-25-2022 CARDIAC STRESS TEST Gen hilario Provider Scanning Start: 10-31-2022 Radionuclide myocard ial perfusion stress study MD Nicole Vargas Work Phone: Start: 04-11-2018 Kevin quiñonez PA-C Work Phone: Plan of Treatment Date Care Activity Detail Author Start: 04-16-2028 Lipid panel Lipid Screening [facility] Start: 05-12-2026 Diabetes Screening Diabetes Screening [facility] Start: 10-23-2025 DTaP/Tdap/Td vaccine (2 - Tdap) DTaP/Tdap/Td vaccine (2 - Tdap) [facility] Start: 10-23-2025 DTaP/Tdap/Td Vaccines (2 - Tdap) DTaP/Tdap/Td Vaccines (2 - Tdap) [facility] Start: 10-23-2025 Urine microalbumin profile [facility] Start: 05-15-2025 DIABETES SCREEN DIABETES SCREEN [facility] Start: 05-12-2024 End: 08-11-2024 CBC W Auto Differential panel - Blood CBC + DIFF Lab Routine Obesity, Class III, BMI 40-49.9 (morbid obesity) (HCC) Malignant neoplasm of lower-inner quadrant of right breast of female, estrogen receptor positive (HCC) Breast screening Encounter for screening mammogram for malignant neoplasm of breast Osteopenia, unspecified location Expected: 05/12/2024 (Approximate), Expires: 08/11/2024 [facility] Work Phone: Comment on above: Expected: 05/12/2024 (Approximate), Expi res: 08/11/2024 Start: 05-12-2024 End: 08-11-2024 Comprehensive metabolic 2000 panel - Serum or Plasma COMP METABOLIC PANEL Lab Routine Obesity, Class III, BMI 40-49.9 (morbid obesity) (HCC) Malignant neoplasm of lower-inner quadrant of right breast of female, estrogen receptor positive (HCC) Breast screening Encounter for screening mammogram for malignant neoplasm of breast Osteopenia, unspecified location Expected: 05/12/2024 (Approximate), Expires: 08/11/2024 [facility] Work Phone: Comment on above: Expected: 05/12/2024 (Approximate), Expi res: 08/11/2024 Start: 04-14-2024 End: 06-11-2024 DBT Breast - bilateral screening WICHO SCREENING W [facility] Radiology Routine Obesity, Class III, BMI 40-49.9 (morbid obesity) (HCC) Malignant neoplasm of lower-inner quadrant of right breast of female, estrogen receptor positive (HCC) Breast screening Encounter for screening mammogram for malignant neoplasm of breast Osteopenia, unspecified location Expected: 04/14/2024, Expires: 06/11/2024 [facility] Work Phone: Comment on above: Expected: 04/14/2024, Expires: Start: 03-13-2024 End: 03-13-2024 Patient encounter procedure 03/13/2024 1:30 PM EST Office Visit [facility] [address] [place] [address] Nani Calloway MD [address] [place] [address] [facility] Start: 03-03-2024 Annual Wellness Visit (Medicare) Annual Wellness Visit (Medicare) [facility] Start: 02-07-2024 End: 08-07-2024 Alanine aminotransferase [Enzymatic activity/volume] in Serum or Plasma by With P-5'-P Alanine Aminotransferase Lab Routine Mixed hyperlipidemia Expected: 02/07/2024 (Approximate), Expires: 08/07/[address] [facility] Service Area Work Phone: Comment on above: Expected: 02/07/2024 (Approximate), Expi res: 08/07/2024 Start: 02-07-2024 End: 08-07-2024 Aspartate aminotransferase [Enzymatic activity/volume] in Serum or Plasma by With P-5'-P Aspartate Aminotransferase Lab Routine Mixed hyperlipidemia Expected: 02/07/2024 (Approximate), Expires: 08/07/2024 [facility] Work Phone: Comment on above: Expected: 02/07/2024 (Approximate), Expi res: 08/07/2024 Start: 02-07-2024 End: 08-07-2024 Basic metabolic 2000 panel - Serum or Plasma Basic Metabolic Panel Lab Routine Essential hypertension, benign Expected: 02/07/2024 (Approximate), Expires: 08/07/2024 [facility] Work Phone: Comment on above: Expected: 02/07/2024 (Approximate), Expi res: 08/07/2024 Start: 02-07-2024 End: 08-07-2024 CBC panel - Blood by Automated count CBC Lab Routine Coronary artery disease involving swinomish coronary artery 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 angina pectoris S/P PTCA (percutaneous transluminal coronary angioplasty) Expected: 02/07/2024 (Approximate), Expires: 08/07/2024 [facility] Work Phone: Comment on above: Expected: 02/07/2024 (Approximate), Expi res: 08/07/2024 Start: 02-07-2024 End: 08-07-2024 Lipid 1996 panel - Serum or Plasma Lipid Panel Lab Routine Mixed hyperlipidemia Expected: 02/07/2024 (Approximate), Expires: 08/07/2024 [facility] Work Phone: Comment on above: Expected: 02/07/2024 (Approximate), Expi res: 08/07/2024 Start: 12-02-2023 Bacteria identified in Urine by Culture [facility] Start: 11-03-2023 COVID-19 Vaccine ( season) COVID-19 Vaccine () [facility] Start: 08-08-2023 End: 08-08-2023 Patient encounter procedure 08/08/2023 9:10 AM EDT Office Visit [facility] [address] [place] [id number] Nani Calloway MD [address] [place] [address] [facility] Start: 04-16-2023 End: 04-02-2024 Basic metabolic 2000 panel - Serum or Plasma Basic Metabolic Panel Lab Routine Coronary artery disease involving swinomish coronary artery 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 angina pectoris Essential hypertension, benign Expected: 04/16/2023 (Approximate), Expires: 04/02/2024 [facility] Work Phone: Comment on above: Expected: 04/16/2023 (Approximate), Expi res: 04/02/2024 Start: 04-02-2023 End: 04-02-2024 Alanine aminotransferase [Enzymatic activity/volume] in Serum or Plasma by With P-5'-P Alanine Aminotransferase Lab Routine Coronary artery disease involving swinomish coronary artery 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 angina pectoris Mixed hyperlipidemia Expected: 04/02/2023 (Approximate), Expires: 04/02/2024 [facility] Work Phone: Comment on above: Expected: 04/02/2023 (Approximate), Expi res: 04/02/2024 Start: 04-02-2023 End: 04-02-2024 Aspartate aminotransferase [Enzymatic activity/volume] in Serum or Plasma by With P-5'-P Aspartate Aminotransferase Lab Routine Coronary artery disease involving swinomish coronary artery 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 Service Area Work Phone: Comment on above: Expected: 04/02/2023 (Approximate), Expi res: 04/02/2024 Start: 04-02-2023 End: 04-02-2023 Patient encounter procedure 04/02/2023 9:20 AM EST Office Visit [facility] [address] [place] [phone] Nani Calloway MD [address] [facility] [address] [facility] Start: 03-28-2023 Screening for osteoporosis Bone Density Scan [facility] Start: 03-04-2023 Advance Directive Discussion Advance Directive Discussion [facility] Start: 03-04-2023 Depression Assessment Depression Assessment [facility] Start: 01-18-2023 [facility] Start: 01-18-2023 Hospital admission [facility] Start: 01-17-2023 [facility] Start: 11-02-2022 COVID-19 Vaccine () COVID-19 Vaccine () [facility] Start: 11-02-2022 COVID-19 Vaccine () COVID-19 Vaccine () [facility] Start: 11-02-2022 Influenza vaccination Influenza Vaccine (#1) [facility] Start: 10-31-2022 Radionuclide myocardial perfusion stress study NM ag perf SPECT rest & str [facility] Start: 10-31-2022 SPECT Heart perfusion at rest and W stress and W radionuclide IV [facility] Start: 09-12-2022 Respiratory Syncytial Virus (RSV) or age 60 yrs+ (1 - 1-dose 75+ series) Respiratory Syncytial Virus (RSV) or age 60 yrs+ (1 - 1-dose 75+ series) [facility] Start: 03-04-2022 ADVANCE DIRECTIVE DISCUSSION ADVANCE DIRECTIVE DISCUSSION [facility] Start: 03-04-2022 DEPRESSION ASSESSMENT DEPRESSION ASSESSMENT [facility] Start: 02-26-2022 COVID-19 Vaccine (3 - Booster for Nicky series) COVID-19 Vaccine (3 - Booster for Nicky series) [facility] Start: 11-02-2021 Influenza vaccination INFLUENZA (#1) [facility] Start: 05-26-2021 COVID-19 VACCINE (3 - Booster for Nicky series) COVID-19 VACCINE (3 - Booster for Nicky series) [facility] Start: 03-28-2021 DIABETES SCREEN DIABETES SCREEN [facility] Start: 03-04-2021 ADVANCE DIRECTIVE DISCUSSION ADVANCE DIRECTIVE DISCUSSION [facility] Start: 01-01-2022 DEPRESSION ASSESSMENT DEPRESSION ASSESSMENT [facility] Start: 04-11-2019 Colonoscopy COLONOSCOPY [facility] Start: 04-11-2019 COLORECTAL CANCER SCREENING COLORECTAL CANCER SCREENING [facility] Start: 03-12-2018 PNEUMOCOCCAL: 65+ (2 - PCV) PNEUMOCOCCAL: 65+ (2 - PCV) [facility] Start: 09-12-2012 BONE DENSITY BONE DENSITY [facility] Start: 2007 RSV patients and/or patients aged 60+ years (1 - 1-dose 60+ series) RSV patients and/or patients aged 60+ years (1 - 1-dose 60+ series) [facility] Start: 2007 RSV Vaccine (1 - 1-dose 60+ series) RSV Vaccine (1 - 1-dose 60+ series) [facility] Start: 09-12-1997 Shingles vaccine (1 of 2) Shingles vaccine (1 of 2) [facility] Start: 09-12-1997 SHINGRIX VACCINE (1 of 2) SHINGRIX VACCINE (1 of 2) [facility] Start: 09-12-1997 Zoster Vaccines (1 of 2) Zoster Vaccines (1 of 2) [facility] Start: 09-12-1992 COLOGUARD (FIT-DNA) COLOGUARD (FIT-DNA) [facility] Start: 09-12-1992 Colonoscopy COLONOSCOPY [facility] Start: 09-12-1992 COLORECTAL CANCER SCREENING COLORECTAL CANCER SCREENING [facility] Start: 09-12-[address] COLONOGRAPHY [facility] Start: 09-12-1992 FECAL OCCULT BLOOD FECAL OCCULT BLOOD [facility] Start: 09-12-1992 LIPID SCREEN LIPID SCREEN [facility] Start: 09-12-1992 Screening for malignant neoplasm of colon [facility] Start: 09-12-1992 SIGMOIDOSCOPY SIGMOIDOSCOPY [facility] Start: 1987 Mammography MAMMOGRAM [facility] Start: 09-12-1965 Diabetes mellitus screening Diabetes Screening [facility] Start: 09-12-1965 HEPATITIS C SCREENING HEPATITIS C SCREENING [facility] Start: 09-12-1965 Hepatitis C screening [facility] Start: 1959 Depression Screen Depression Screen [facility]9 Start: 09-12-1957 Lipid panel Lipids [facility] Start: 1947 Creatinine measurement Creatinine Level [facility] Start: 1947 Echocardiography Echocardiogram [facility] Start: 1947 Lipid panel Lipid Panel [facility] Start: 1947 Medicare Annual Wellness Visit Medicare Annual Wellness Visit (AWV) [facility] Start: 1947 Potassium measurement Potassium Level [facility] Start: 1947 Screening for malignant neoplasm of colon [facility] Start: 1947 Thyroid stimulating hormone measurement TSH Level [facility] End: 03-08-2024 Basic metabolic 2000 panel - Serum or Plasma Basic Metabolic Panel Lab Routine Daily for 5 Days starting 03/04/2024 until 03/08/2024, 3 completed [facility]9 Comment on above: Daily for 5 Days starting 03/04/2024 unt il 03/08/2024, 3 completed End: 03-08-2024 CBC W Auto Differential panel - Blood CBC with Auto Differential Lab Routine Daily for 5 Days starting 03/04/2024 until 03/08/2024, 3 completed [facility] Work Phone: Comment on above: Daily for 5 Days starting 03/04/2024 unt il 03/08/2024, 3 completed Continuous pulse oximetry Pulse oximetry, continuous Respiratory Care Routine Every 4hr until discontinued starting 03/05/2024 Gen9 Comment on above: Every 4hr until discontinued starting Intermittent pulse oximetry Acapella Respiratory Care Routine As Needed until discontinued starting 03/03/2024 Gen9 Comment on above: As Needed until discontinued starting End: 06-14-2023 WICHO SCREENING W BETINA WICHO SCREENING W BETINA Radiology Routine Malignant neoplasm of lower-inner quadrant of right breast of female, estrogen receptor positive (HCC) Breast screening Encounter for screening mammogram for malignant neoplasm of breast 1 Occurrences starting 05/15/2022 until 06/14/2023 [facility] Work Phone: Comment on above: 1 Occurrences starting 05/15/2022 until 06/14/2023 Oxygen therapy [[facility] Initiate Oxygen Therapy Protocol Respiratory Care Routine As Needed until discontinued starting 03/03/2024 Gen9 Comment on above: As Needed until discontinued starting Oxygen therapy [[facility] Data Set] Initiate Oxygen Therapy Protocol Respiratory Care Routine Daily until discontinued starting 03/03/2024 Gen9 Comment on above: Daily until discontinued starting 2023 Patient Education Coronary Angio plasty (DC) Coronary Stenting (DC) Angina (DC) Chest Pain (DC) Drug Eluting Stents [facility] Ctr Work Phone: Patient referral [facility] Work Phone: Renal function 2000 panel - Serum or Plasma [facility] Spirometry panel Incentive althea metry Respiratory Care Routine As Needed until discontinued starting 03/03/2024 Gen9 Comment on above: As Needed until discontinued starting XR Chest 2 Views [facility] Immunizations Immunization Date Immunization Notes Care Provider Fa cility 02-19-2023 influenza, injectabl e, quadrivalent, preservative free Hilario Mast Other [facility] 01-18-2022 Pneumococcal conjuga te vaccine, 20-valent (PREVNAR 20) Nani Calloway MD Work Phone: [facility] Work Phone: 01-01-2022 Flu vaccine, quadrivalent, high-dose, preservative free, age 65y+ (FLUZONE) Nani Calloway MD Work Phone: [facility] Work Phone: 01-01-2022 Moderna COVID-19 vaccine, bivalent, blue cap/riojas label *Check age/dose* Nani Calloway MD Work Phone: [facility] 01-01-2022 influenza virus vacc ine, unspecified formulation Nani Calloway MD Work Phone: [facility] Work Phone: 03-31-2021 COVID-19 (Moderna), Age 12+ MD Nicole Vargas Work Phone: [facility] 03-31-2021 COVID-19 original vaccine, full dose, monovalent (MODERNA) Ruth Ann Marlin PA-C Work Phone: [facility] 12-15-2020 influenza, high dose seasonal, preservative-free Ruth Ann Marlin PA-C Work Phone: [facility] 05-07-2020 COVID-19 (J&J) MD Nicole Vargas Work Phone: [facility] 05-07-2020 COVID-19 vaccine (NICKY) Ruth Ann Marlin PA-C Work Phone: [facility] 01-10-2020 influenza, high-dose , quadrivalent vaccine (FLUZONE HIGH DOSE QUADRIVALENT) Ruth Ann Marlin PA-C Work Phone: [facility] 03-01-2019 influenza, high dose seasonal, preservative-free Ruth Ann Marlin PA-C Work Phone: [facility] 03-18-2018 influenza nasal, unspecified formulation Ruth Ann Marlin PA-C Work Phone: [facility] 03-18-2018 influenza virus vacc ine, unspecified formulation Ruth Ann Marlin PA-C Work Phone: [facility] 03-17-2018 influenza, high dose seasonal, preservative-free Ruth Ann Marlin PA-C Work Phone: [facility] 03-12-2017 pneumococcal polysaccharide vaccine, 23 valent Ruth Ann Marlin PA-C Work Phone: [facility] 02-13-2017 influenza, high dose seasonal, preservative-free Ruth Ann Marlin PA-C Work Phone: [facility] 11-14-2015 influenza, injectabl e, quadrivalent, preservative free Ruth Ann Marlin PA-C Work Phone: [facility] 10-24-2015 diphtheria, tetanus toxoids and acellular pertussis vaccine Ruth Ann Marlin PA-C Work Phone: [facility] 10-24-2015 influenza, high dose seasonal, preservative-free Ruth Ann Gutierres PA-C Work Phone: [facility] Payers Date Payer Category Payer Self-pay [id number] 2022 Unknown AARP AARP [id number] 2022-Present [address] [place] [address] [id number] 2013 Private Health Insurance [facility] AARP SUPPLEMENT [id number] 2013-Present [phone] [address] [place] [address] Indemnity [id number] 2012 Medicare [id number] 1959 Medicare [id number] 1959 Unknown [id number] [id number] 1947 Unknown [id number] 2.16.840.1.629720.3.579.2 .593 1947 Unknown [id number] 2.16.840.1.294669.3.579.2 .593 1947 Unknown [id number] 2.16.840.1.958172.3.579.2 .593 1947 Unknown [id number] 2.16.840.1.674428.3.579.2 .593 1947 Unknown [id number] 2.16.840.1.442591.3.579.2 .593 1947 Unknown [id number] 2.16.840.1.068613.3.579.2 .356 1947 Unknown [id number] 2.16.840.1.064686.3.579.2 .1259 1947 Unknown [id number] 2.16.840.1.533372.3.579.2 .9 1947 Unknown [id number] 2.16.840.1.648243.3.579.2 .125 1947 Unknown [id number] 2.16.840.1.196806.3.579.2 .125 1945 Unknown [id number] 2.16.840.1.858682.3.579.2 .175 1947 Unknown [id number] 2.16.840.1.411939.3.579.2 .1244 1947 Unknown [id number] 2.16.840.1.678861.3.579.2 .124 1947 Unknown [id number] 2.16.840.1.416509.3.579.2 .175 Unknown [id number] 2.16.840.1.994679.3.579.2 .531 Unknown [id number] 2.16.840.1.678274.3.579.2 .531 Unknown [id number] 2.16.840.1.922507.3.579.2 .531 Unknown [id number] 2.16.840.1.519064.3.579.2 .531 Unknown [id number] 2.16840.1.454859.3.579.2 .531 Social History Date Type Detail Facility Unknown if ever smoked [facility] Other Start: 12-25-2022 End: 03-03-2024 Sex Assigned At [facility] Start: 06-29-2016 End: 05-06-2023 Tobacco smoking status NHIS Ex-smoker [facility] End: 06-30-1995 History of tobacco use Current smoker [facility] End: 06-30-1995 History of tobacco use Cigarette Smoker [facility] Start: 06-29-2016 End: 03-03-2024 Cigarettes smoked current (pack per day) - Reported 1 [facility] Start: 06-29-2016 End: 08-08-2023 Tobacco use and exposure Smokeless tobacco non-user [facility] Start: 05-16-2021 End: 05-15-2022 Alcohol intake Current non-drinker of alcohol (finding) [facility] Start: 1945 Sex Assigned At Not on file [facility] History of tobacco use Passive smoker [facility] Start: 1945 Sex Assigned At Female [facility] Start: 12-25-2022 End: 08-08-2023 Alcohol intake Lifetime non-drinker (finding) [facility] Work Phone: Start: 12-15-2022 End: 08-08-2023 Exposure to SARS-CoV-2 (event) Not sure [facility] Adult Depression Screening Assessment 0 [facility] [employer] How often to you hav e a drink containing alcohol? [facility] Procedure Code Equipment Code Equipment Origin al Text Equipment Identifier Dates CL STENT ZEB FRONTIER 2.75 X 18 FDA Start: 01-17-2023 CL STENT ZEB FRONTIER 3.0 X 18 FDA Start: 01-17-2023 CL STENT EZB FRONTIER 3.5 X 12 FDA Start: 01-17-2023 Femoral artery closure plug/patch, synthetic polymer [id number] FDA Start: 01-17-2023 CL STENT ZEB FRONTIER 2.75 X 18 FDA Start: 01-17-2023 CL STENT ZEB FRONTIER 3.0 X 18 FDA Start: 01-17-2023 CL STENT ZEB FRONTIER 3.5 X 12 FDA Start: 01-17-2023 CL STENT ZEB FRONTIER 2.75 X 18 FDA Start: 01-17-2023 CL STENT ZEB FRONTIER 3.0 X 18 FDA Start: 01-17-2023 CL STENT ZEB FRONTIER 3.5 X 12 FDA Start: 01-17-2023 CL STENT ZEB FRONTIER 2.75 X 18 FDA Start: 01-17-2023 CL STENT ZEB FRONTIER 3.0 X 18 FDA Start: 01-17-2023 CL STENT ZEB FRONTIER 3.5 X 12 FDA Start: 01-17-2023 CL STENT ZEB FRONTIER 2.75 X 18 FDA Start: 01-17-2023 CL STENT ZEB FRONTIER 3.0 X 18 FDA Start: 01-17-2023 CL STENT ZEB FRONTIER 3.5 X 12 FDA Start: 01-17-2023 CL STENT ZEB FRONTIER 2.75 X 18 FDA Start: 01-17-2023 CL STENT ZEB FRONTIER 3.0 X 18 FDA Start: 01-17-2023 CL STENT ZEB FRONTIER 3.5 X 12 FDA Start: 01-17-2023 CL STENT ZEB FRONTIER 2.75 X 18 FDA Start: 01-17-2023 CL STENT ZEB FRONTIER 3.0 X 18 FDA Start: 01-17-2023 CL STENT ZEB FRONTIER 3.5 X 12 FDA Start: 01-17-2023 CL STENT ZEB FRONTIER 2.75 X 18 FDA Start: 01-17-2023 CL STENT ZEB FRONTIER 3.0 X 18 FDA Start: 01-17-2023 CL STENT ZEB FRONTIER 3.5 X 12 FDA Start: 01-17-2023 CL STENT ZEB FRONTIER 2.75 X 18 FDA Start: 01-17-2023 CL STENT ZEB FRONTIER 3.0 X 18 FDA Start: 01-17-2023 CL STENT ZEB FRONTIER 3.5 X 12 FDA Start: 01-17-2023 Functional Status Date Assessment Result Facility 01-18-2023 Functional status Patient at Baseline [facility] Work Phone: Mental Status Date Assessment Result Facility 01-18-2023 Cognitive function Cognitive Sta tus Patient at Baseline [facility] Work Phone: Clinical Notes 02-06-2021 to 03-06-2024 Parul Banks APRN - [facility] - 03/06/2024 10:47 AM ESTDischarge Radha - Ondina Akers MD - 03/05/2024 10:00 PM Kisha Longoria RP - 03/05/2024 3:24 PM ESTPatient Instructions Note Date & Type Note Facility 03-06-2024 Hospital course Narrative Images from the original note were not included. DISCHARGE SUMMARY: PATIENT NAME: Katarina Camara BIRTHDATE: 1945 DATE: 03/06/24 PRIMARY CARE PHYSICIAN: Hilario Gallo DO ADMIT DATE: 03/03/2024 DISCHARGE DATE: 03/06/2024 DISPOSITION: SNF ADMITTING DIAGNOSIS: Fall DIAGNOSIS: Patient Active Problem List Diagnosis Subarachnoid hemorrhage (HCC) Arteriosclerosis of coronary artery Essential hypertension, benign History of malignant neoplasm of breast Hyperlipidemia Hypothyroidism Morbid obesity S/P PTCA (percutaneous transluminal coronary angioplasty) Vitamin D deficiency CONSULTANTS: NS, IM PROCEDURES: None HOSPITAL COURSE: Katarina Camara is a 78 y.o. female who was admitted on 03/03/2024 Hospital Course: CC: FFSH, +brilinta. Injuries: SAH, nasal fracture Hospital Course: 03/03/2024:Admission to TICU 03/04/24: rCT shows improving SAH. Transfer to Stepdown 03/06: medically stable for discharge to facility Labs and imaging were followed. On day of discharge Katarina Camara was tolerating a regular diet She was deemed medically stable for discharge to Skilled Facility PHYSICAL EXAMINATION: Discharge Vitals: height is 1.537 m (5' 0.5 ) and weight is 99.1 kg (218 lb 7.6 oz). Her oral temperature is 98.2 F (36.8 C). Her blood pressure is 139/67 and her pulse is 90. Her respiration is 19 and oxygen saturation is 87% (abnormal). Exam on day of discharge: Physical Exam Constitutional: General: She is awake. HENT: Head: Normocephalic. Raccoon eyes present. Comments: Bilateral periorbital bruising Cardiovascular: Rate and Rhythm: Normal rate. Pulmonary: Effort: Pulmonary effort is normal. Neurological: Mental Status: She is alert and oriented to person, place, and time. GCS: GCS eye subscore is 4. GCS verbal subscore is 5. GCS motor subscore is 6. LABS: Recent Labs 03/04/24 0327 03/04/24 0746 03/05/24 0219 03/06/24 0624 WBC 6.0 -- 6.6 6.6 HGB 12.6 -- 12.7 14.2 HCT 40.4 -- 39.8 43.7 PLT See Reflexed IPF Result -- 167 200 NA 136 137 132* 135* K 2.9* 3.0* 3.3* 3.7 CL 99 99 93* 93* CO2 26 28 26 30 BUN 11 11 14 12 CREATININE 0.9 0.9 1.1* 1.1* DIAGNOSTIC TESTS: CT CHEST ABDOMEN PELVIS W CONTRAST Additional Contrast? None Result Date: 03/05/2024 EXAMINATION: CT OF THE CHEST, ABDOMEN, AND PELVIS WITH CONTRAST; CT OF THE THORACIC SPINE WITHOUT CONTRAST; CT OF THE LUMBAR SPINE WITHOUT CONTRAST 03/03/2024 3:20 pm TECHNIQUE: CT of the chest, abdomen and pelvis was performed with the administration of intravenous contrast. Multiplanar reformatted images are provided for review. Automated exposure control, iterative reconstruction, and/or weight based adjustment of the mA/kV was utilized to reduce the radiation dose to as low as reasonably achievable.; CT of the thoracic spine was performed without the administration of intravenous contrast. Multiplanar reformatted images are provided for review. Automated exposure control, iterative reconstruction, and/or weight based adjustment of the mA/kV was utilized to reduce the radiation dose to as low as reasonably achievable.; CT of the lumbar spine was performed without the administration of intravenous contrast. Multiplanar reformatted images are provided for review. Adjustment of mA and/or kV according to patient size was utilized. Automated exposure control, iterative reconstruction, and/or weight based adjustment of the mA/kV was utilized to reduce the radiation dose to as low as reasonably achievable. COMPARISON: None HISTORY: ORDERING SYSTEM PROVIDED HISTORY: trauma TECHNOLOGIST PROVIDED HISTORY: trauma Reason for Exam: SAH (subarachnoid hemorrhage) (HCC) FINDINGS: Chest: Mediastinum: No acute aortic abnormality identified. Calcified coronary atheromatous plaque. No mediastinal hematoma. No pericardial effusion. Lungs/pleura: No acute airspace disease, pneumothorax or effusion. Findings consistent with scarring in the anterior right upper lobe and in the left lung base. Soft Tissues/Bones: No acute osseous abnormality identified in this region. No soft tissue hematoma. Surgical clips in the right axilla and findings compatible with fat necrosis in the medial right breast. Abdomen/Pelvis: Organs: No solid organ injury identified. No acute inflammatory process. Findings compatible with hepatic steatosis. Cholecystectomy. No suspicious renal lesion identified. GI/Bowel: There is no bowel dilatation or wall thickening identified. Diverticulosis. Pelvis: No acute findings. The bladder is well distended. Peritoneum/Retroperitoneum: No free air. No free fluid. The aorta is normal in caliber. The visceral branches are patent. Bones/Soft Tissues: Pelvic alignment maintained. No fracture identified. No soft tissue hematoma. Partially visualized bilateral total hip arthroplasties. *Unless otherwise specified, incidental findings do not require dedicated imaging follow-up. Thoracic: BONES/ALIGNMENT: There is normal alignment of the spine. The vertebral body heights are maintained. No osseous destructive lesion is seen. DEGENERATIVE CHANGES: No gross spinal canal stenosis or bony neural foraminal narrowing of the thoracic spine. Lumbar: BONES/ALIGNMENT: There is normal alignment of the spine. The vertebral body heights are maintained. No osseous destructive lesion is seen. DEGENERATIVE CHANGES: No gross spinal canal stenosis or bony neural foraminal narrowing of the lumbar spine. * Please note that the spinal canal contents are not adequately assessed on this exam. If further evaluation of the spinal canal, spinal cord or nerve roots is necessary, MRI is recommended. 1. No acute traumatic injury identified in the chest, abdomen or pelvis. 2. No acute osseous abnormality identified in the thoracic or lumbar spine. 3. Chronic findings, as described. CT THORACIC SPINE BONY RECONSTRUCTION Result Date: 03/05/2024 EXAMINATION: CT OF THE CHEST, ABDOMEN, AND PELVIS WITH CONTRAST; CT OF THE THORACIC SPINE WITHOUT CONTRAST; CT OF THE LUMBAR SPINE WITHOUT CONTRAST 03/03/2024 3:20 pm TECHNIQUE: CT of the chest, abdomen and pelvis was performed with the administration of intravenous contrast. Multiplanar reformatted images are provided for review. Automated exposure control, iterative reconstruction, and/or weight based adjustment of the mA/kV was utilized to reduce the radiation dose to as low as reasonably achievable.; CT of the thoracic spine was performed without the administration of intravenous contrast. Multiplanar reformatted images are provided for review. Automated exposure control, iterative reconstruction, and/or weight based adjustment of the mA/kV was utilized to reduce the radiation dose to as low as reasonably achievable.; CT of the lumbar spine was performed without the administration of intravenous contrast. Multiplanar reformatted images are provided for review. Adjustment of mA and/or kV according to patient size was utilized. Automated exposure control, iterative reconstruction, and/or weight based adjustment of the mA/kV was utilized to reduce the radiation dose to as low as reasonably achievable. COMPARISON: None HISTORY: ORDERING SYSTEM PROVIDED HISTORY: trauma TECHNOLOGIST PROVIDED HISTORY: trauma Reason for Exam: SAH (subarachnoid hemorrhage) (HCC) FINDINGS: Chest: Mediastinum: No acute aortic abnormality identified. Calcified coronary atheromatous plaque. No mediastinal hematoma. No pericardial effusion. Lungs/pleura: No acute airspace disease, pneumothorax or effusion. Findings consistent with scarring in the anterior right upper lobe and in the left lung base. Soft Tissues/Bones: No acute osseous abnormality identified in this region. No soft tissue hematoma. Surgical clips in the right axilla and findings compatible with fat necrosis in the medial right breast. Abdomen/Pelvis: Organs: No solid organ injury identified. No acute inflammatory process. Findings compatible with hepatic steatosis. Cholecystectomy. No suspicious renal lesion identified. GI/Bowel: There is no bowel dilatation or wall thickening identified. Diverticulosis. Pelvis: No acute findings. The bladder is well distended. Peritoneum/Retroperitoneum: No free air. No free fluid. The aorta is normal in caliber. The visceral branches are patent. Bones/Soft Tissues: Pelvic alignment maintained. No fracture identified. No soft tissue hematoma. Partially visualized bilateral total hip arthroplasties. *Unless otherwise specified, incidental findings do not require dedicated imaging follow-up. Thoracic: BONES/ALIGNMENT: There is normal alignment of the spine. The vertebral body heights are maintained. No osseous destructive lesion is seen. DEGENERATIVE CHANGES: No gross spinal canal stenosis or bony neural foraminal narrowing of the thoracic spine. Lumbar: BONES/ALIGNMENT: There is normal alignment of the spine. The vertebral body heights are maintained. No osseous destructive lesion is seen. DEGENERATIVE CHANGES: No gross spinal canal stenosis or bony neural foraminal narrowing of the lumbar spine. * Please note that the spinal canal contents are not adequately assessed on this exam. If further evaluation of the spinal canal, spinal cord or nerve roots is necessary, MRI is recommended. 1. No acute traumatic injury identified in the chest, abdomen or pelvis. 2. No acute osseous abnormality identified in the thoracic or lumbar spine. 3. Chronic findings, as described. CT LUMBAR SPINE BONY RECONSTRUCTION Result Date: 03/05/2024 EXAMINATION: CT OF THE CHEST, ABDOMEN, AND PELVIS WITH CONTRAST; CT OF THE THORACIC SPINE WITHOUT CONTRAST; CT OF THE LUMBAR SPINE WITHOUT CONTRAST 03/03/2024 3:20 pm TECHNIQUE: CT of the chest, abdomen and pelvis was performed with the administration of intravenous contrast. Multiplanar reformatted images are provided for review. Automated exposure control, iterative reconstruction, and/or weight based adjustment of the mA/kV was utilized to reduce the radiation dose to as low as reasonably achievable.; CT of the thoracic spine was performed without the administration of intravenous contrast. Multiplanar reformatted images are provided for review. Automated exposure control, iterative reconstruction, and/or weight based adjustment of the mA/kV was utilized to reduce the radiation dose to as low as reasonably achievable.; CT of the lumbar spine was performed without the administration of intravenous contrast. Multiplanar reformatted images are provided for review. Adjustment of mA and/or kV according to patient size was utilized. Automated exposure control, iterative reconstruction, and/or weight based adjustment of the mA/kV was utilized to reduce the radiation dose to as low as reasonably achievable. COMPARISON: None HISTORY: ORDERING SYSTEM PROVIDED HISTORY: trauma TECHNOLOGIST PROVIDED HISTORY: trauma Reason for Exam: SAH (subarachnoid hemorrhage) (HCC) FINDINGS: Chest: Mediastinum: No acute aortic abnormality identified. Calcified coronary atheromatous plaque. No mediastinal hematoma. No pericardial effusion. Lungs/pleura: No acute airspace disease, pneumothorax or effusion. Findings consistent with scarring in the anterior right upper lobe and in the left lung base. Soft Tissues/Bones: No acute osseous abnormality identified in this region. No soft tissue hematoma. Surgical clips in the right axilla and findings compatible with fat necrosis in the medial right breast. Abdomen/Pelvis: Organs: No solid organ injury identified. No acute inflammatory process. Findings compatible with hepatic steatosis. Cholecystectomy. No suspicious renal lesion identified. GI/Bowel: There is no bowel dilatation or wall thickening identified. Diverticulosis. Pelvis: No acute findings. The bladder is well distended. Peritoneum/Retroperitoneum: No free air. No free fluid. The aorta is normal in caliber. The visceral branches are patent. Bones/Soft Tissues: Pelvic alignment maintained. No fracture identified. No soft tissue hematoma. Partially visualized bilateral total hip arthroplasties. *Unless otherwise specified, incidental findings do not require dedicated imaging follow-up. Thoracic: BONES/ALIGNMENT: There is normal alignment of the spine. The vertebral body heights are maintained. No osseous destructive lesion is seen. DEGENERATIVE CHANGES: No gross spinal canal stenosis or bony neural foraminal narrowing of the thoracic spine. Lumbar: BONES/ALIGNMENT: There is normal alignment of the spine. The vertebral body heights are maintained. No osseous destructive lesion is seen. DEGENERATIVE CHANGES: No gross spinal canal stenosis or bony neural foraminal narrowing of the lumbar spine. * Please note that the spinal canal contents are not adequately assessed on this exam. If further evaluation of the spinal canal, spinal cord or nerve roots is necessary, MRI is recommended. 1. No acute traumatic injury identified in the chest, abdomen or pelvis. 2. No acute osseous abnormality identified in the thoracic or lumbar spine. 3. Chronic findings, as described. CT HEAD WO CONTRAST Result Date: 03/04/2024 EXAMINATION: CT OF THE HEAD WITHOUT CONTRAST 03/04/2024 9:25 am TECHNIQUE: CT of the head was performed without the administration of intravenous contrast. Automated exposure control, iterative reconstruction, and/or weight based adjustment of the mA/kV was utilized to reduce the radiation dose to as low as reasonably achievable. COMPARISON: 03/03/2024 HISTORY: ORDERING SYSTEM PROVIDED HISTORY: TECHNOLOGIST PROVIDED HISTORY: Reason for Exam: fall, follow up subarachnoid hemorrhage FINDINGS: BRAIN/VENTRICLES: There is persistent but improving subarachnoid hemorrhage adjacent to the anterior aspect of the interhemispheric falx. There is no new hemorrhage or acute infarct. No mass effect or midline shift. No ventriculomegaly. ORBITS: Limited evaluation of the orbits is unremarkable. SINUSES: There is layering fluid within the paranasal sinuses. SOFT TISSUES/SKULL: No skull fracture. Persistent but improving small volume of subarachnoid hemorrhage. CT HEAD WO CONTRAST Result Date: 03/03/2024 EXAMINATION: CT OF THE HEAD WITHOUT CONTRAST 03/03/2024 3:20 pm TECHNIQUE: CT of the head was performed without the administration of intravenous contrast. Automated exposure control, iterative reconstruction, and/or weight based adjustment of the mA/kV was utilized to reduce the radiation dose to as low as reasonably achievable. COMPARISON: The patient reportedly has known subarachnoid hemorrhage on outside imaging which is not available for direct comparison. HISTORY: ORDERING SYSTEM PROVIDED HISTORY: trauma, re eval TECHNOLOGIST PROVIDED HISTORY: trauma, re eval Reason for Exam: SAH (subarachnoid hemorrhage) (HCC) FINDINGS: BRAIN/VENTRICLES: There is a trace volume of subarachnoid hemorrhage along the anterior aspect of the interhemispheric falx. There is no mass effect or midline shift. There is no ventriculomegaly. No acute infarct. ORBITS: Limited evaluation of the orbits is unremarkable. SINUSES: There is fluid within the maxillary sinuses and a suspected nondisplaced right nasal fracture. SOFT TISSUES/SKULL: No skull fracture. Trace subarachnoid hemorrhage along the interhemispheric falx. The findings were sent to the [facility]iology [facility] at 4:37 pm on 03/03/2024 to be communicated to a licensed caregiver. DISCHARGE INSTRUCTIONS Discharge Medications: Medication List START taking these medications aspirin 81 MG EC tablet Take 1 tablet by mouth daily Start taking on: March 07, 2024 Replaces: aspirin 81 MG chewable tablet CONTINUE taking these medications alendronate 70 MG tablet Commonly known as: FOSAMAX carvedilol 3.125 MG tablet Commonly known as: COREG Crestor 20 MG tablet Generic drug: rosuvastatin DULoxetine 60 MG extended release capsule Commonly known as: CYMBALTA furosemide 40 MG tablet Commonly known as: LASIX indapamide 1.25 MG tablet Commonly known as: LOZOL levothyroxine 112 MCG tablet Commonly known as: SYNTHROID montelukast 10 MG tablet Commonly known as: SINGULAIR potassium chloride 20 MEQ packet Commonly known as: KLOR-CON STOP taking these medications aspirin 81 MG chewable tablet Replaced by: aspirin 81 MG EC tablet ticagrelor 90 MG Tabs tablet Commonly known as: BRILINTA Where to Get Your Medications Information about where to get these medications is not yet available Ask your nurse or doctor about these medications aspirin 81 MG EC tablet Diet: ADULT DIET; Regular; 3 carb choices (45 gm/meal) diet as tolerated Activity: As instructed WEIGHT BEARING STATUS: Weight bearing as tolerated Wound Care: Daily and as needed. DISPOSITION: Skilled Facility Follow-up: Jas Maguire MD [address] [address] Follow up Follow up as needed Niraj Zhou, [address] [facility], [address] [place] [id number] Schedule an appointment as soon as possible for a visit to discuss need for restarting brilinta SIGNED: ANDRÉS Marin CNP 03/06/2024, 10:49 AM Time Spent for discharge: 35 minutes documented in this encounter [facility] 03-06-2024 Hospital Discharg e Bernadette Branch RN - 03/06/2024 10:47 AM EST Continuity of Care Form Patient Name: Katarina Camara : 1945 Admit date: 03/03/2024 Discharge date: 03/06/24 Code Status Order: Full Code Advance Directives: Advance Care Flowsheet Documentation Admitting Physician: Tona Avendaño MD PCP: Hilario Gallo DO Discharging Nurse: Francie Correa RN Discharging Hospital Unit/Room#: 0106/0106-01 Discharging Unit Phone Number: [phone] Emergency Contact: Extended Emergency Contact Information Primary Emergency Contact: Saundra Cunningham Relation: Child Preferred language: Guyanese Body Mechanic Apprentice needed? No Secondary Emergency Contact: Fawn Lowery Relation: Grandchild Preferred language: Guyanese Body Mechanic Apprentice needed? No Past Surgical History: No past surgical history on file. Immunization History: Immunization History Administered Date(s) Administered COVID-19, J&J, (age 18y+), IM, 0.5 mL 05/07/2020 COVID-19, MODERNA Bivalent, (age 12y+), IM, 50 mcg/0.5 mL 01/01/2022 Active Problems: Patient Active Problem List Diagnosis Code Subarachnoid hemorrhage (HCC) I60.9 Arteriosclerosis of coronary artery I25.10 Essential hypertension, benign I10 History of malignant neoplasm of breast Z85.3 Hyperlipidemia E78.5 Hypothyroidism E03.9 Morbid obesity E66.01 S/P PTCA (percutaneous transluminal coronary angioplasty) Z98.61 Vitamin D deficiency E55.9 Isolation/Infection: Isolation No Isolation Patient Infection Status None to display Nurse Assessment: Last Vital Signs: BP 139/67 Pulse 90 Temp 98.2 F (36.8 C) (Oral) Resp 19 Ht 1.537 m (5' 0.5 ) Wt 99.1 kg (218 lb 7.6 oz) SpO2 (!) 87% BMI 41.97 kg/m Last documented pain score (0-10 scale): Pain Level: 4 Last Weight: Wt Readings from Last 1 Encounters: 03/06/24 99.1 kg (218 lb 7.6 oz) Mental Status: oriented, alert, thought processes intact, and able to concentrate and follow conversation IV Access: - None Nursing Mobility/ADLs: Walking Assisted Transfer Assisted Bathing Assisted Dressing Assisted Toileting Assisted Feeding Independent Geologic Technician Assisted Med Delivery whole Wound Care Documentation and Therapy: Elimination: Continence: Bowel: Yes Bladder: Yes Urinary Catheter: None Colostomy/Ileostomy/Ileal Conduit: No Date of Last BM: 03/06/24 Intake/Output Summary (Last 24 hours) at 03/06/2024 1047 Last data filed at 03/06/2024 0405 Gross per 24 hour Intake 10 ml Output 1501 ml Net -1491 ml I/O last 3 completed shifts: In: 10 [I.V.:10] Out: 2201 [Urine:2201] Safety Concerns: History of Falls (last 30 days) and At Risk for Falls Impairments/Disabilities: None Nutrition Therapy: Current Nutrition Therapy: - Oral Diet: General Routes of Feeding: Oral Liquids: No Restrictions Daily Fluid Restriction: no Last Modified Barium Swallow with Video (Video Swallowing Test): not done Treatments at the Time of Hospital Discharge: Respiratory Treatments: no Oxygen Therapy: on 2l nc at night Ventilator: - No ventilator support Rehab Therapies: Physical Therapy and Occupational Therapy Weight Bearing Status/Restrictions: No weight bearing restrictions Other Medical Equipment (for information only, NOT a DME order): walker Other Treatments: no Patient's personal belongings (please select all that are sent with patient): None RN SIGNATURE: CASE MANAGEMENT/SOCIAL WORK SECTION Inpatient Status Date: Readmission Risk Assessment Score: [facility] RISK OF UNPLANNED READMISSION 2.0 12.4 Total Score Discharging to Facility/ Agency Name: [facility] Alexis Address: Phone: Fax: Dialysis Facility (if applicable) Name: Address: Dialysis Schedule: Phone: Fax: Full Service Vending Driver/Director Surface Transportation signature: PHYSICIAN SECTION Prognosis: Fair Condition at Discharge: Stable Rehab Potential (if transferring to Rehab): Recommended Labs or Other Treatments After Discharge: Physician Certification: I certify the above information and transfer of Katarina Camara is necessary for the continuing treatment of the diagnosis listed and that she requires [facility] Facility for less then 30 days. Update Admission H&P: No change in H&P PHYSICIAN SIGNATURE: documented in this encounter [facility] 03-05-2024 History of Presen t illness Narrative Images from the original note were not included. POST ICU TRANSFER NOTE DIAGNOSES: - Trace SDH d/t FFSH, -LOC, +Brilinta - Nondisplaced Right nasal fracture Chronic - HTN, - CAD s/p stents 01/24 on Brilinta - CKD - Asthma During admission - Nil SUBJECTIVE Patient reviewed in room, Patient is alert and oriented x 4, GCS 15/15. Patient has no complaints at this time and is in no acute distress. Patient stated she did have epistaxis earlier on blowing her nose but stopped in less than 30 seconds. Has been having intermittent epistaxis on blowing her nose since the fall. Checklist: [x] Oxygen saturation is > 90% on FiO2< 50% (exceptions may be made for patient pathophysiology) [x] Vital signs remain at or near baseline without pharmaceutical adjuncts, blood products, or > 2L fluid bolus since transfer [x] No suspicion or evidence of a new untreated infection (confusion, cool or cyanotic extremities, poor capillary refill, metabolic acidosis, low urine output) [x] Stable GCS, seizures controlled, no invasive neurological monitoring [x] No alteration in mental status after transfer from ICU [x] No deterioration in renal function since transfer [x] Patient care needs do not exceed the capabilities of the unit they were transferred to (suctioning needs, glucose monitoring, neurological monitoring, neurovascular checks, vital sign monitoring, I&O monitoring, drain management Ondina Botello MD Trauma/Surgery Service 03/05/2024 at 10:00 PM Pharmacy Note Renal Dose Adjustment Katarina Camara is a 78 y.o. female. Pharmacist assessment of renally cleared medications. Recent Labs 03/04/24 0746 03/05/24 0219 BUN 11 14 Recent Labs 03/04/24 0746 03/05/24 0219 CREATININE 0.9 1.1* Estimated Creatinine Clearance: 30 mL/min (A) (based on SCr of 1.1 mg/dL (H)). Height: Ht Readings from Last 1 Encounters: 03/03/24 0.6 m (1' 11.62 ) Weight: Wt Readings from Last 1 Encounters: 03/04/24 98.9 kg (218 lb 0.6 oz) The following medication dose has been adjusted based upon renal function per P&T Guidelines: Famotidine 20mg PO BID to daily Kisha Mcbride PharmD [facility] 03/05/2024 3:23 PM Neurosurgery ALVARO/Resident Daily Progress Note Chief Complaint Patient presents with Fall 03/05/2024 9:26 AM Chart reviewed. No acute events overnight. No new complaints. Denies headache. Ambulating. Reports she feels ready to go home. Vitals: 03/05/24 0820 03/05/24 0830 03/05/24 0858 03/05/24 0900 BP: (!) 122/102 Pulse: 91 79 83 88 Resp: 19 19 21 Temp: TempSrc: SpO2: 96% 96% 95% 95% Weight: Height: PE: AOx3 CNII-XII intact PERRL, EOMI Motor L deltoid 5/5; R deltoid 5/5 L biceps 5/5; R biceps 5/5 L triceps 5/5; R triceps 5/5 L intrinsics 5/5; R intrinsics 5/5 L iliopsoas 5/5 , R iliopsoas 5/5 L quadriceps 5/5; R quadriceps 5/5 L Dorsiflexion 5/5; R dorsiflexion 5/5 L Plantarflexion 5/5; R plantarflexion 5/5 Sensation intact Lab Results Component Value Date WBC 6.6 03/05/2024 HGB 12.7 03/05/2024 HCT 39.8 03/05/2024 PLT 167 03/05/2024 NA 132 (L) 03/05/2024 K 3.3 (L) 03/05/2024 CL 93 (L) 03/05/2024 CREATININE 1.1 (H) 03/05/2024 BUN 14 03/05/2024 CO2 26 03/05/2024 INR 1.0 03/03/[address] HEAD WO CONTRAST Result Date: 03/04/2024 EXAMINATION: CT OF THE HEAD WITHOUT CONTRAST 03/04/2024 9:25 am TECHNIQUE: CT of the head was performed without the administration of intravenous contrast. Automated exposure control, iterative reconstruction, and/or weight based adjustment of the mA/kV was utilized to reduce the radiation dose to as low as reasonably achievable. COMPARISON: 03/03/2024 HISTORY: ORDERING SYSTEM PROVIDED HISTORY: FU TECHNOLOGIST PROVIDED HISTORY: Reason for Exam: fall, follow up subarachnoid hemorrhage FINDINGS: BRAIN/VENTRICLES: There is persistent but improving subarachnoid hemorrhage adjacent to the anterior aspect of the interhemispheric falx. There is no new hemorrhage or acute infarct. No mass effect or midline shift. No ventriculomegaly. ORBITS: Limited evaluation of the orbits is unremarkable. SINUSES: There is layering fluid within the paranasal sinuses. SOFT TISSUES/SKULL: No skull fracture. Persistent but improving small volume of subarachnoid hemorrhage. CT HEAD WO CONTRAST Result Date: 03/03/2024 EXAMINATION: CT OF THE HEAD WITHOUT CONTRAST 03/03/2024 3:20 pm TECHNIQUE: CT of the head was performed without the administration of intravenous contrast. Automated exposure control, iterative reconstruction, and/or weight based adjustment of the mA/kV was utilized to reduce the radiation dose to as low as reasonably achievable. COMPARISON: The patient reportedly has known subarachnoid hemorrhage on outside imaging which is not available for direct comparison. HISTORY: ORDERING SYSTEM PROVIDED HISTORY: trauma, re eval TECHNOLOGIST PROVIDED HISTORY: trauma, re eval Reason for Exam: SAH (subarachnoid hemorrhage) ([facility]) FINDINGS: BRAIN/VENTRICLES: There is a trace volume of subarachnoid hemorrhage along the anterior aspect of the interhemispheric falx. There is no mass effect or midline shift. There is no ventriculomegaly. No acute infarct. ORBITS: Limited evaluation of the orbits is unremarkable. SINUSES: There is fluid within the maxillary sinuses and a suspected nondisplaced right nasal fracture. SOFT TISSUES/SKULL: No skull fracture. Trace subarachnoid hemorrhage along the interhemispheric falx. The findings were sent to the Radiology Results Communication Center at 4:37 pm on 03/03/2024 to be communicated to a licensed caregiver. A/P 78 y.o. female who presents with intracranial hemorrhage located within the anterior interhemispheric fissure - No neurosurgical interventions needed. F/u CTH shows stable to improving bleed - okay to resume ASA 81 mg now, resume brilinta in 1 week - follow up as needed, call with any questions Please contact neurosurgery with any changes in patients neurologic status. Ray Viera CNP 03/05/24 9:26 AM Associated attestation - Jas Maguire MD - 03/05/2024 9:57 AM EST Attending Supervising Physician s Attestation Statement I was present with the neurosurgery ALVARO during the follow up interview and exam. I discussed the findings and plans with the nurse practitioner and agree as documented in the note. Patient continues to do very well. She is sitting up in bed with no complaints. She describes no headache, nausea or vomiting. Neurologic examination remains normal. She is awake, alert, following all commands briskly with clear fluent speech. Comprehension is normal. She has good strength of the upper and lower extremities. Patient did undergo a follow-up head CT which demonstrates near complete resolution of previously noted anterior interhemispheric subdural bleed. No new hemorrhage has been noted. I did review these imaging results at the bedside with the patient. Cardiology indicated that would be fine for the patient to be off her blood thinners for 1 week's time. I have no further recommendations currently from a neurosurgical perspective. I would have the patient follow-up with her primary doctor as required. Occupational Therapy Occupational Therapy Initial Evaluation Facility/Department: [facility] Patient Name: Katarina Camara : 1945 Date of Service: 03/05/2024 Chief Complaint Patient presents with Fall Past Medical History: has no past medical history on file. Past Surgical History: has no past surgical history on file. Discharge Recommendations Discharge Recommendations: Patient would benefit from continued therapy after discharge OT Equipment Recommendations Equipment Needed: No Assessment Performance deficits / Impairments: Decreased functional mobility ;Decreased ADL status;Decreased endurance;Decreased balance;Decreased high-level IADLs Assessment: Pt agreed to occupational therapy evaluation with education provided on purpose and role of occupational therapy services in the acute care setting. OT facilitated assessing functional mobility and ADL performance to pt's tolerance this visit. Pt exhibited requiring CGA for functional sit<>stand transfers and SBA-CGA for functional moiblity. Transfers/mobility completed utilizing RW initially w/ SBA-CGA and progressing to no device w/ CGA. Increased effort and cautious walk w/out device. Greatest limitations exhibited during these activities include overall decreased endurance and high level balance. Per report, pt is typically IND for ADLs, IADLs and functional mobility tasks with cane occasionally. Based on the patients occupational performance throughout this evaluation, it is expected they are to require continued skilled OT services during their acute hospitilization to increase safety and promote increased independence throughout ADLs, IADLs and functional mobility tasks. Pt is currently unsafe to return to their prior living arrangements without 24/7 assist/supervision PRN to safely engage in all aspects of ADLs, IADLs and functional mobility tasks. Prognosis: Good Decision Making: Medium Complexity REQUIRES OT FOLLOW-UP: Yes Activity Tolerance Activity Tolerance: Patient Tolerated treatment well Safety Devices Type of Devices: Call light within reach;Gait belt;Patient at risk for falls;Left in chair;Nurse notified Restraints Restraints Initially in Place: No AM-PAC AM-PAC Daily Activity - Inpatient How much help is needed for putting on and taking off regular lower body clothing?: A Little How much help is needed for bathing (which includes washing, rinsing, drying)?: A Little How much help is needed for toileting (which includes using toilet, bedpan, or urinal)?: A Little How much help is needed for putting on and taking off regular upper body clothing?: A Little How much help is needed for taking care of personal grooming?: None How much help for eating meals?: None AM-PAC Inpatient Daily Activity Raw Score: 20 AM-PAC Inpatient ADL T-Scale Score : 42.03 ADL Inpatient CMS 0-100% Score: 38.32 ADL Inpatient CMS G-Code Modifier : CJ Restrictions/Precautions Restrictions/Precautions Restrictions/Precautions: Fall Risk Activity Level: Up as Tolerated;Up with Assist Required Braces or Orthoses?: No Subjective General Patient assessed for rehabilitation services?: Yes Family / Caregiver Present: No General Comment Comments: RN ok'd for OT evaluation today. Pt agreeable to session, pleasent/cooperative throughout. Pain Pre-Pain: 0 Post-Pain: 0 Home Setup/Prior Level of Function Social/Functional History Lives With: Alone Type of Home: House Home Layout: One level Home Access: Stairs to enter with rails Entrance Stairs - Number of Steps: 3 Entrance Stairs - Rails: Left Bathroom Shower/Tub: Walk-in shower Bathroom Toilet: Standard Bathroom Equipment: Toilet raiser;Shower chair;Tub transfer bench;Hand-held shower;Grab bars in shower;Commode Home Equipment: Cane;Lift chair;Walker - Rolling (Uses cane outside and in the community.) Has the patient had two or more falls in the past year or any fall with injury in the past year?: Yes (2 falls since may) Prior Level of Assist for ADLs: Independent Prior Level of Assist for Homemaking: Independent Homemaking Responsibilities: Yes Meal Prep Responsibility: Primary Laundry Responsibility: Primary Cleaning Responsibility: Primary Bill Paying/Finance Responsibility: Primary Shopping Responsibility: Primary Prior Level of Assist for Ambulation: Independent household ambulator, with or without device;Independent community ambulator, with or without device Prior Level of Assist for Transfers: Independent Active Accounting Software Specialist: Yes Mode of Transportation: SUV 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 Distal to WNL.) Strength: Generally decreased, functional (B shoulders 3-/5. B elbows 4-/5. B hands 4/5.) Coordination: Within functional limits Tone: Normal Sensation: Intact (Pt denies any numbness/tingling) Hand Dominance: Right Objective Orientation Overall Orientation Status: Within Functional Limits Orientation Level: Oriented X4 Cognition Overall Cognitive Status: WNL Activities of Daily Living Feeding: Independent Grooming: Independent Grooming Skilled Clinical Factors: Pt stood sinkside to complete hand hygiene, able to demo uni/B hand use w/out support for balance using device. UE Bathing: Supervision;Based on clinical judgement LE Bathing: Contact guard assistance;Increased time to complete;Based on clinical judgement UE Dressing: Supervision;Based on clinical judgement LE Dressing: Contact guard assistance;Increased time to complete;Based on clinical judgement Toileting: Contact guard assistance;Increased time to complete;Based on clinical judgement Balance Balance Sitting: Without support (SUP-static/dynamic sitting balance today EOB ~8 min) Standing: With support (Pt completed static standing balance w/ RW at SBA. Completed static/dynamic standing balance w/out device at CGA. Pt up ~15 minutes standing throughout ADLs and mobility.) Transfers/Mobility Bed mobility Bed Mobility Comments: Pt seated at bedside recliner upon therapist entrance and exit. Transfers Sit to stand: Contact guard assistance Stand to sit: Contact guard assistance Transfer Comments: Completed 1x transfer on/off EOB w/ RW ,1x w/out RW and 1x transfer on/off couch w/out. Increased time, pt cautious. No LOB. Functional Mobility: Contact guard assistance Functional Mobility Skilled Clinical Factors: Pt completed functional mobility w/ RW at SBA-CGA and w/out device at CGA .W/out RW pt exhibits more cautious mobility, but no LOB. Pt educated on benefit of using device to improve safety. Took rest break between bouts of using walker and then transitioning to no device. Patient Education Patient Education Education Given To: Patient Education Provided: Role of Therapy;Plan of Care;ADL Adaptive Strategies;Transfer Training;Energy Conservation;Equipment Education Provided Comments: activity promotion, safety awareness, home safety/setup-good return Education Method: Demonstration;Verbal Barriers to Learning: None Education Outcome: Demonstrated understanding;Continued education needed;Verbalized understanding Goals Short Term Goals Time Frame for Short Term Goals: By discharge, pt will: Short Term Goal 1: Demo functional sit<>stand transfers and functional mobility with Mod IND and use of LRAD PRN to promote increased independence throughout ADLs Short Term Goal 2: Demo reaching/retrieving 8+ objects from high/low surface levels around room at SUP to promote increased independence throughout ADLs Short Term Goal 3: Demo ADLs with Mod IND and use of DME/adaptive strategies PRN Short Term Goal 4: Identify 2+ fall risk prevention strategies to promote increased safety throughout ADLs/IADLs Plan Occupational Therapy Plan Times Per Week: 3-4x/wk Current Treatment Recommendations: Balance training, Functional mobility training, Endurance training, Safety education & training, Patient/Caregiver education & training, Equipment evaluation, education, & procurement, Self-Care / ADL, Strengthening Minutes OT Individual Minutes Time In: 0754 Time Out: 0824 Minutes: 30 Time Code Minutes Timed Code Treatment Minutes: 25 Minutes Images from the original note were not included. ICU PROGRESS NOTE PATIENT NAME: Katarina Camara DATE: 03/05/2024 HD: # 2 ACUTE DIAGNOSES/PLAN Neuro: GCS 15 SAH on Birlinta (BIG 3) Repeat Head CT 03/04/24: Persistent but improving small volume SAH Nsx: Neurochecks per protocol SBP<140 Holding anticogulants/antiplatlets Tylenol 1g TID Duloxetine 60mg QD CV SBP/DBP 101-119/44-73 MAP 67-87 HR 60-103 No pressor support Coreg 3.125mg BID Hydrochlorothiazide 25mg QD Lasix 40mg BID(hold) Crestor 20mg QD Pulm RA satting 89-96% No home oxygen H/o Asthma on Monteleukast 10mg GI/Nutrition Glycolax 17g Pepcid 20mg BID Regular diet (carb control) Renal/lytes Na/K 132/3.3(replacement ordered) Mg/Phos pending U/O -1900 I/O -1900cc Heme DVT prophylaxis-NA Hb 12.7 7. Endocrine 1. Levothyroxine 112 mcg No h/o DM, BG 104 Musculoskeletal PT/OT Skin Will continue to monitor Micro WBC 6.6 Family/dispo Transfer to stepdown if rCT head stable Lines PIV x 2 EUC CHECKLIST CAM-ICU RASS: NA RESTRAINTS: NA IVF: NA NUTRITION: Regular diet ANTIBIOTICS: NA GI: Pepcid DVT: NA GLYCEMIC CONTROL: NA HOB >45: YES MOBILITY: As tolerated SBT: NA IS: NA Wound care: NA Chief Complaint: great SUBJECTIVE Katarina Camara with a pmh of hypertension, CAD, CKD, ASthma presents to the SICU as a trauma priority s/p fall on Brilinta(BIG 3). Patient was at an outlying facility and found to have a SAH on CT scan. Repeat CT scan upon ED arrival showed Trace subarachnoid hemorrhage along the interhemispheric falx. Patient is currently being followed by Nsx, repeat CT head showed Persistent but improving small volume SAH. Plan to have patient moved to stepdown today. Overnight patient did well. VSS, afebrile tolerating diet and urinating without any difficulties, denies any bowel movements. OBJECTIVE VITALS: Vitals: 03/05/24 0400 BP: (!) 119/44 Pulse: 78 Resp: 20 Temp: 98 F (36.7 C) SpO2: 91% Physical Exam Vitals and nursing note reviewed. Constitutional: General: She is not in acute distress. Appearance: She is well-developed. She is not diaphoretic. HENT: Head: Normocephalic and atraumatic. Comments: Bilateral periorbital ecchymosis Nose: Nose normal. Eyes: Pupils: Pupils are equal, round, and reactive to light. Cardiovascular: Rate and Rhythm: Normal rate and regular rhythm. Pulses: Radial pulses are 2+ on the right side and 2+ on the left side. Dorsalis pedis pulses are 2+ on the right side and 2+ on the left side. Heart sounds: Normal heart sounds. Pulmonary: Effort: Pulmonary effort is normal. No respiratory distress. Breath sounds: Normal breath sounds. Abdominal: Palpations: Abdomen is soft. Tenderness: There is no abdominal tenderness. Musculoskeletal: General: No tenderness. Normal range of motion. Skin: General: Skin is warm and dry. Findings: No rash. Neurological: Mental Status: She is alert and oriented to person, place, and time. LAB: CBC: Recent Labs 03/03/24 1452 03/04/24 0327 03/05/24 0219 WBC 8.9 6.0 6.6 HGB 13.7 12.6 12.7 HCT 41.7 40.4 39.8 MCV 92.1 95.7 94.5 PLT 141 See Reflexed IPF Result 167 BMP: Recent Labs 03/04/24 0327 03/04/24 0746 03/05/24 0219 NA 136 137 132* K 2.9* 3.0* 3.3* CL 99 99 93* CO2 26 28 26 BUN 11 11 14 CREATININE 0.9 0.9 1.1* GLUCOSE 110* 106* 104* Vilma Ward MD 03/05/2024, 8:14 AM Associated attestation - Tona Avendaño MD - 03/05/2024 10:01 AM EST I personally evaluated the patient and directed the medical decision making with Resident/ALVARO after the physical/radiologic exam and laboratory values were reviewed and confirmed. 78yo female HTN, CAD s/p stents 01/24 (on Brillinta) CKD, asthma s/p fall with trace SAH. Neuro: N/S appreciated - improvement in SAH CV: N/S would like to hold Brillinta if able - will d/w cardio Code Status: Full Lines: PIVs Ppx: no DVT ppx, pepcid Dispo: discharge home vs facility Tona Avendaño MD 15 Variable Trauma-Specific Frailty Index Comorbidities Cancer History Yes (1) No (0) Coronary Heart Disease RI (1) CABG (0.75) Mild (0.25) No (0) Dementia Severe (1) Moderate (0.5) Mild (0.25) No (0) Daily Activities Help With Grooming Yes (1) No (0) Help with Managing Money Yes (1) No (0) Help doing Housework Yes (1) No (0) Help with Toileting Yes (1) No (0) Help Walking Wheelchair (1) Walker (0.75) Cane (0.5) No (0) Health Attitude Feel Less Useful Most Time (1) Sometimes (0.5) Never (0) Feel Sad Most Time (1) Sometimes (0.5) Never (0) Feel Effort to Do Everything Most Time (1) Sometimes (0.5) Never (0) Feels Lonely Most Time (1) Sometimes (0.5) Never (0) Falls Most Time (1) Sometimes (0.5) Never (0) Function Sexually Active Yes (0) No(1) Nutrition Albumin < 3g/dL (1) > 3g/dL Scoring Score FI (Score/15) > 0.25 = Frail *Based on 2-weeks prior to hospital admission Trauma Specific Fraility Index > or = to 4 (4/15 = 0.26) Trauma Specific Fraility Index Score: 4.75/15=.316 Images from the original note were not included. Trauma Tertiary Survey Admit Date: 03/03/2024 Hospital day 1 Chief Complaint: Fall Subjective: Katarina Camara with a pmh of hypertension, CAD, CKD, ASthma presents to the SICU as a trauma priority s/p fall on Brilinta(BIG 3). Patient was at an outlying facility and found to have a SAH on CT scan. Repeat CT scan upon ED arrival showed Trace subarachnoid hemorrhage along the interhemispheric falx. Patient is currently being followed by Nsx and has a repeat CT head shows improvement in underlying SAH. Objective: PHYSICAL EXAM: Vitals and nursing note reviewed. Constitutional: General: She is not in acute distress. Appearance: She is well-developed. She is not diaphoretic. HENT: Head: Normocephalic and atraumatic. Comments: Bilateral periorbital ecchymosis Nose: Nose normal. Eyes: Pupils: Pupils are equal, round, and reactive to light. Cardiovascular: Rate and Rhythm: Normal rate and regular rhythm. Pulses: Radial pulses are 2+ on the right side and 2+ on the left side. Dorsalis pedis pulses are 2+ on the right side and 2+ on the left side. Heart sounds: Normal heart sounds. Pulmonary: Effort: Pulmonary effort is normal. No respiratory distress. Breath sounds: Normal breath sounds. Abdominal: Palpations: Abdomen is soft. Tenderness: There is no abdominal tenderness. Musculoskeletal: General: No tenderness. Normal range of motion. Skin: General: Skin is warm and dry. Findings: No rash. Neurological: Mental Status: She is alert and oriented to person, place, and time. Spine: Spine Tenderness ROM Cervical 0 /10 Normal Thoracic 0 /10 Normal Lumbar 0 /10 Normal Musculoskeletal Joint Tenderness Swelling ROM Right shoulder absent absent normal Left shoulder absent absent normal Right elbow absent absent normal Left elbow absent absent normal Right wrist absent absent normal Left wrist absent absent normal Right hand grasp absent absent normal Left hand grasp absent absent normal Right hip absent absent normal Left hip absent absent normal Right knee absent absent normal Left knee absent absent normal Right ankle absent absent normal Left ankle absent absent normal Right foot absent absent normal Left foot absent absent normal CONSULTS: PROCEDURES: [] Reviewed radiology reports (All radiology findings correlate to diagnoses/problem list) [] Incidental findings: [] Patient/family notified and letter given Assessment/Plan: 1. SAH improvement on repeat Head CT 1. Stepdown Unit Physical Therapy Facility/Department: [facility] CAR 1- SICU Physical Therapy Initial Assessment Name: Katarina Camara : 1945 Date of Service: 03/04/2024 78 yr old female that presented to the Emergency Department following a fall. She was in her kitchen and she leaned forward and she lost her balance, fell hitting her face. She says she was able to get herself after about an hour. She does live by herself. She is on Brilinta. Discharge Recommendations: In my professional opinion, this patient could tolerate a total of 3 hours of combined therapies post-acute care. PT Equipment Recommendations Equipment Needed: No (pt has rwalker at home, normally doesn't use it) Patient Diagnosis(es): The encounter diagnosis was Subarachnoid hemorrhage (HCC). Past Medical History: has no past medical history on file. Past Surgical History: has no past surgical history on file. Assessment Pt cooperative, motivated; has had 2 falls since May of this year and frequent LOB with near misses ; transfers min A, gait w/o device min Ax 60', gait with rwalker SBA+1. Pt is currently unsafe for home DC alone she's expected to benefit from continued aggressive therapies to improve her functional independence to return home independently. Body Structures, Functions, Activity Limitations Requiring Skilled Therapeutic Intervention: Decreased functional mobility ;Decreased ROM;Decreased body mechanics;Decreased strength;Decreased safe awareness;Decreased balance;Increased pain;Decreased posture Therapy Prognosis: Good Decision Making: Medium Complexity Requires PT Follow-Up: Yes Activity Tolerance Activity Tolerance: Patient tolerated treatment well Plan Physical Therapy Plan General Plan: (5-6 visits weekly) Current Treatment Recommendations: Strengthening, ROM, Balance training, Functional mobility training, Transfer training, Endurance training, Gait training, Stair training, Pain management, Home exercise program, Safety education & training, Patient/Caregiver education & training, Equipment evaluation, education, & procurement, Positioning, Therapeutic activities Safety Devices Type of Devices: Call light within reach, Gait belt, Patient at risk for falls, Left in chair, Nurse notified Restraints Restraints Initially in Place: No Restrictions Restrictions/Precautions Restrictions/Precautions: Fall Risk Activity Level: Up as Tolerated, Up with Assist Required Braces or Orthoses?: No Subjective General Patient assessed for rehabilitation services?: Yes Response To Previous Treatment: Not applicable Family/Caregiver Present: Yes (granddaughter) Follows Commands: Within Functional Limits Subjective Subjective: c/o 06/11 R knee pain s/p fall at home; she states normally her L knee hurts more than her R (chronic) Social/Functional History Social/Functional History Lives With: Alone Type of Home: House Home Layout: One level Home Access: Stairs to enter with rails Entrance Stairs - Number of Steps: 3 Entrance Stairs - Rails: Left Bathroom Equipment: Commode Home Equipment: Cane, Lift chair, Walker - Rolling Has the patient had two or more falls in the past year or any fall with injury in the past year?: Yes (2 falls since May, and a lot of near misses per granddaughter ie fell onto the couch, fell but wall kept her from going down to the floor) Receives Help From: Family Prior Level of Assist for ADLs: Independent Prior Level of Assist for Ambulation: Independent household ambulator, with or without device, Independent community ambulator, with or without device (occasionally uses a cane, but infrequently per pt--uses more frequently when going out) Prior Level of Assist for Transfers: Independent Active Accounting Software Specialist: Yes Additional Comments: able to go to the [employer], [employer] cart; stress incontinence so uses lift chair to stand Vision/Hearing Vision Vision: Impaired Vision Exceptions: Wears glasses for reading Hearing Hearing: Within functional limits Cognition Orientation Overall Orientation Status: Within Functional Limits Orientation Level: Oriented X4 Cognition Overall Cognitive Status: Exceptions Arousal/Alertness: Appears intact Following Commands: Follows multistep commands with increased time;Follows multistep commands with repitition Attention Span: Appears intact Memory: Decreased recall of biographical Information;Decreased recall of recent events Safety Judgement: Decreased awareness of need for assistance;Decreased awareness of need for safety Problem Solving: Assistance required to generate solutions;Assistance required to correct errors made;Decreased awareness of errors Insights: Decreased awareness of deficits Initiation: Requires cues for some Sequencing: Requires cues for some Objective Temp: 98 F (36.7 C) Pulse: (!) 103 Heart Rate Source: Monitor Respirations: 22 SpO2: 94 % O2 Device: None (Room air) BP: 116/73 MAP (Calculated): 87 BP Location: Left upper arm BP Method: Automatic Patient Position: Up in chair Observation/Palpation Posture: Fair Observation: flexed posture, notable limp noted RLE when ambulating w/o device PROM RLE (degrees) RLE PROM: WFL PROM LLE (degrees) LLE PROM: WFL PROM RUE (degrees) RUE PROM: Exceptions--shoulder elevation ~90 degrees; elbow distal WFL PROM LUE (degrees) LUE PROM: Exceptions--shoulder elevation ~90 degrees; elbow flexion ~90 degrees and limited by IV, wrist/hand WFL Strength RLE Strength RLE: Exception--grossly 3+/5 Strength LLE Strength LLE: Exception--grossly 3+/5 Strength RUE Strength RUE: Exception--shoulder 2+/5; elbow distal 3+/5 Strength LUE Strength LUE: Exception--shoulder 2+/5; elbow distal 3+/5 Bed mobility Bed Mobility Comments: pt up in chair upon PT arrival and retired to chair at end of PT session Transfers Sit to Stand: Minimal Assistance Stand to Sit: Minimal Assistance Stand Pivot Transfers: Minimal Assistance Comment: pt unsteady with one LOB requiring min A to correct Ambulation Surface: Level tile Device: No Device Assistance: Minimal assistance Gait Deviations: Slow Nae;Increased RAYMUNDO;Decreased step length;Decreased step height;Decreased arm swing;Staggers Distance: 60'x1 More Ambulation?: Yes Ambulation 2 Surface - 2: level tile Device 2: Rolling Walker Assistance 2: Supervision Gait Deviations: Slow Nae Distance: 60'x2 Balance Posture: Fair Sitting - Static: Good Sitting - Dynamic: Good Standing - Static: Fair Standing - Dynamic: Fair;- Exercise Treatment: ankle pumps A/AROM Exercises: AROM x 4 AM-PAC - Mobility [facility] Basic Mobility - Inpatient How much help is needed turning from your back to your side while in a flat bed without using bedrails?: A Little How much help is needed moving from lying on your back to sitting on the side of a flat bed without using bedrails?: A Lot How much help is needed moving to and from a bed to a chair?: A Little How much help is needed standing up from a chair using your arms?: A Little How much help is needed walking in hospital room?: A Little How much help is needed climbing 3-5 steps with a railing?: A Lot [facility] Inpatient Mobility Raw Score : 16 [facility] Inpatient T-Scale Score : 40.78 Mobility Inpatient CMS 0-100% Score: 54.16 Mobility Inpatient CMS G-Code Modifier : CK Goals Short Term Goals Time Frame for Short Term Goals: 12 visits Short Term Goal 1: independent bed mobility Short Term Goal 2: independent transfers Short Term Goal 3: independent gait with appropriate device vs none x 300' Short Term Goal 4: independent stair ambulation x 3 steps with 1 HR Patient Goals Patient Goals : get stronger, move better, return home Education Patient Education Education Given To: Patient;Family Education Provided: Role of Therapy;Plan of Care;Home Exercise Program;Precautions;Transfer Training;Mobility Training;Equipment;Fall Prevention Strategies Education Method: Verbal Education Outcome: Continued education needed;Verbalized understanding Therapy Time Individual Concurrent Group Co-treatment Time In 1327 Time Out 1408 Minutes 41 Timed Code Treatment Minutes: 27 Minutes Ryne Amaro PT Images from the original note were not included. ICU PROGRESS NOTE PATIENT NAME: Katarina Camara DATE: 03/04/2024 HD: # 1 ACUTE DIAGNOSES/PLAN Neuro: GCS 15 SAH on Birlinta (BIG 3) Repeat Head CT 03/04/24: Nsx: Neurochecks per protocol SBP<140 Holding anticogulants/antiplatlets Tylenol 1g TID Duloxetine 60mg QD CV SBP/DBP 101-130/45-66 MAP 68-90 HR 60-70s No pressor support Coreg 3.125mg BID Hydrochlorothiazide 25mg QD Lasix 40mg BID(hold) Crestor 20mg QD Pulm 2l NC No home oxygen H/o Asthma on Monteleukast 10mg GI/Nutrition Glycolax 17g Pepcid 20mg BID Regular diet (carb control) Renal/lytes Na/K 136/2.9(replacement ordered) Mg/Phos U/o 1L x 12hrs I/O -600cc Heme DVT prophylaxis-NA Hb 12.6 7. Endocrine 1. Levothyroxine 112 mcg No h/o DM, BG 110 Musculoskeletal PT/OT Skin Will continue to monitor Micro WBC 6 Family/dispo Transfer to stepdown if rCT head stable Lines PIV x 2 EUC CHECKLIST CAM-ICU RASS: NA RESTRAINTS: NA IVF: NA NUTRITION: Regular diet ANTIBIOTICS: NA GI: Pepcid DVT: NA GLYCEMIC CONTROL: NA HOB >45: YES MOBILITY: As tolerated SBT: NA IS: NA Wound care: NA Chief Complaint: great SUBJECTIVE Katarina Camara with a pmh of hypertension, CAD, CKD, ASthma presents to the SICU as a trauma priority s/p fall on Brilinta(BIG 3). Patient was at an outlying facility and found to have a SAH on CT scan. Repeat CT scan upon ED arrival showed Trace subarachnoid hemorrhage along the interhemispheric falx. Patient is currently being followed by Nsx and has a repeat CT head scheduled today. Overnight patient did well. VSS, afebrile tolerating diet and urinating without any difficulties, denies any bowel movements. OBJECTIVE VITALS: Vitals: 03/04/24 0700 BP: (!) 115/45 Pulse: 68 Resp: 18 Temp: SpO2: Physical Exam Vitals and nursing note reviewed. Constitutional: General: She is not in acute distress. Appearance: She is well-developed. She is not diaphoretic. HENT: Head: Normocephalic and atraumatic. Comments: Bilateral periorbital ecchymosis Nose: Nose normal. Eyes: Pupils: Pupils are equal, round, and reactive to light. Cardiovascular: Rate and Rhythm: Normal rate and regular rhythm. Pulses: Radial pulses are 2+ on the right side and 2+ on the left side. Dorsalis pedis pulses are 2+ on the right side and 2+ on the left side. Heart sounds: Normal heart sounds. Pulmonary: Effort: Pulmonary effort is normal. No respiratory distress. Breath sounds: Normal breath sounds. Abdominal: Palpations: Abdomen is soft. Tenderness: There is no abdominal tenderness. Musculoskeletal: General: No tenderness. Normal range of motion. Skin: General: Skin is warm and dry. Findings: No rash. Neurological: Mental Status: She is alert and oriented to person, place, and time. LAB: CBC: Recent Labs 03/03/24 1452 03/04/24 0327 WBC 8.9 6.0 HGB 13.7 12.6 HCT 41.7 40.4 MCV 92.1 95.7 PLT 141 See Reflexed IPF Result BMP: Recent Labs 03/03/24 1452 03/04/24 0327 NA 135* 136 K 3.3* 2.9* CL 95* 99 CO2 29 26 BUN 11 11 CREATININE 1.1* 0.9 GLUCOSE 129* 110* Johny Ricks MD 03/04/2024, 7:31 AM Associated attestation - Tona Avendaño MD - 03/04/2024 12:36 PM EST I personally evaluated the patient and directed the medical decision making with Resident/ALVARO after the physical/radiologic exam and laboratory values were reviewed and confirmed. 78yo female HTN, CAD s/p stents 01/24 (on Brillinta) CKD, asthma s/p fall with trace SAH. Neuro: N/S appreciated - improvement in SAH - transfer to stepdown CV: N/S would like to hold Brillinta if able - will d/w cardio Code Status: Full Lines: PIVs Ppx: no DVT ppx, pepcid Dispo: transfer to stepdown Tona Avendaño MD [facility] Emergency/Trauma Note PATIENT NAME: Katarina Camara ([id number]) Shift date: 03.03.2024 Shift day: Saturday Shift # 1 Room # 1002/1002-01 Name: Michael Sterling Age: 78 y.o. Gender: female Language: Guyanese Sabianist: No christianity on file Principal Problem: SAH (subarachnoid hemorrhage) ([facility]) Trauma/Incident type: Adult Trauma Priority Admit Date & Time: 03/03/2024 2:37 PM TRAUMA NAME: JADYN ADVANCE DIRECTIVES IN CHART? No NAME OF DECISION MAKER: None RELATIONSHIP OF DECISION MAKER TO PATIENT: None EMERGENCY CONTACTS IN CHART: No emergency contact information on file. PATIENT/EVENT DESCRIPTION: Michael Sterling is a 78 y.o. female who arrived via EMT from Home as a Adult Trauma Priority due to Fall. Pt to be admitted to [facility]1001-03. SPIRITUAL ASSESSMENT: Patient Assessment: Available for assessment Patient appears to show low distress at this time, appearing Calm and Coping. Support Assessment: a congruent response Daughter appears to show low distress at this time, appearing Calm and Coping with an immediate hope of seeing the patient and ultimate hope of a medical update. Relational Resources appear average. Relational resources include daughter . Emotional Resources appear average. Emotional resources include daughter . Spiritual Resources appear unknown at this time. . Perceived Needs Assessment: Build a relationship of care and support, Receive care and concern, and Recieve hospitality. INTERVENTION: Per Diem Registered Nurse Acknowledged current situation, Actively listened, and Coordinated support with Nurse. OUTCOME: Built relationships of care and support, Calming presence provided, and Demonstrated caring concern with an incongruent response given the current situation and/or circumstances. PATIENT BELONGINGS: No belongings noted ANY BELONGINGS OF SIGNIFICANT VALUE NOTED: None REGISTRATION STAFF NOTIFIED? Yes WHAT IS YOUR SPIRITUAL CARE PLAN FOR THIS PATIENT?: [facility] will follow up as needed [facility] [phone] 03/03/24 1648 Encounter Summary Encounter Overview/Reason Crisis Service Provided For Family Referral/Consult From Multi-disciplinary team Support System Children Last Encounter 03/03/24 Complexity of Encounter High Begin Time 1437 End Time 1505 Total Time Calculated 28 min Crisis Type Trauma (Priority) Assessment/Intervention/Outcome Assessment Calm;Coping Intervention Active listening;Discussed illness injury and it s impact;Explored/Affirmed feelings, thoughts, concerns Outcome Coping;Expressed feelings, needs, and concerns;Engaged in conversation documented in this encounter [facility] 08-08-2023 History of Presen t illness Narrative Subjective Katarina Camara is a 77 y.o. female Chief Complaint Follow-up HPI Patient is in the office for follow-up for the problems noted below. 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 She denies any symptoms of angina pectoris orthopnea PND she does have occasional fatigue at the end of the day. Her medical therapy was reviewed and I did not feel a change will be necessary. She is compliant with aspirin and Brilinta with no bleeding complications. Her lab data from recent testing were reviewed and everything looks okay. Her weight is down 9 pounds from last visit which is great. She is working on getting her weight further down. Assessment/recommendations: 1-severe two-vessel coronary artery disease status post PCI of the left circumflex in the anterior descending artery in January 2023. Will continue dual antiplatelet therapy for 1 year from the angioplasty date. After that she can stop the Brilinta in preparation for the surgery. 2-essential hypertension, currently on ramipril and carvedilol and indapamide under control with normal kidney function 3-hyperlipidemia on high intensity statin with rosuvastatin 20 mg daily. Will follow lipid profile 4-Hypothyroidism on replacement therapy managed by PCP 5-class II obesity, lifestyle changes to lose weight would recommended. She has lost 9 pounds since her last visit Review of Systems Constitutional: Positive for malaise/fatigue. Respiratory: Positive for shortness of breath. Neurological: Positive for dizziness. All other systems reviewed and are negative. Vitals: 08/08/23 0918 BP: 102/58 BP Location: Left arm Patient Position: Sitting Pulse: 72 Weight: 95.7 kg (211 lb) Height: 1.549 m (5' 1 ) Objective Physical Exam Constitutional: Appearance: Normal appearance. HENT: Nose: Nose normal. Neck: Vascular: No carotid bruit. Cardiovascular: Rate and Rhythm: Normal rate. Pulses: Normal pulses. Heart sounds: Normal heart sounds. Pulmonary: Effort: Pulmonary effort is normal. Abdominal: General: Bowel sounds are normal. Palpations: Abdomen is soft. Musculoskeletal: General: Normal range of motion. Cervical back: Normal range of motion. Right lower leg: No edema. Left lower leg: No edema. Skin: General: Skin is warm and dry. Neurological: General: No focal deficit present. Mental Status: She is alert. Psychiatric: Mood and Affect: Mood normal. Behavior: Behavior normal. Thought Content: Thought content normal. Judgment: Judgment normal. Allergies Ibuprofen, Lyrica [pregabalin], and Sulfa (sulfonamide antibiotics) Current Medications Current Outpatient Medications: alendronate (Fosamax) [...] tablet (6.25 mg) by mouth 2 times daily (morning and late afternoon)., Disp: , Rfl: cetirizine-pseudoephedrine (ZyrTEC-D) 5-120 mg [...] for edema., Disp: 90 tablet, Rfl: 1 indapamide (Lozol) 1.25 mg tablet, Take 1 tablet (1.25 mg) by mouth once daily in the morning., Disp: 90 tablet, Rfl: 3 letrozole (Femara) 2.5 mg tablet, Take 1 [...] (10 mg) by mouth once daily., Disp: 90 capsule, Rfl: 3 rosuvastatin (Crestor) 20 mg tablet, Take 1 [...] - 10)., Disp: , Rfl: Assessment/Plan 1. Coronary artery disease involving swinomish coronary artery 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 angina pectoris Follow Up In Cardiology Follow Up In Cardiology CBC CBC 2. S/P PTCA (percutaneous transluminal coronary angioplasty) CBC CBC 3. Mixed hyperlipidemia Alanine Aminotransferase Aspartate Aminotransferase Lipid Panel Alanine Aminotransferase Aspartate Aminotransferase Lipid Panel 4. Essential hypertension, benign Basic Metabolic Panel Basic Metabolic Panel 5. BMI 39.0-39.9,adult 6. Former smoker Scribe Attestation By signing my name below, Tabby Quan LPN, Scribe attest that this documentation has been prepared under the direction and in the presence of Nani Calloway MD. Provider Attestation - Scribe documentation All medical record entries made by the Scribe were at my direction and personally dictated by me. I have reviewed the chart and agree that the record accurately reflects my personal performance of the history, physical exam, discussion and plan. documented in this encounter [facility] Work Phone: 08-08-2023 Instructions Tabby Lopez LPN - 08/08/2023 9:10 AM EDT Please bring all medicines, vitamins, and herbal supplements with you when you come to the office. Prescriptions will not be filled unless you are compliant with your follow up appointments or have a follow up appointment scheduled as per instruction of your physician. Refills should be requested at the time of your visit. BMI was above normal measurement. Current weight: 95.7 kg (211 lb) Weight change since last visit (-) denotes wt loss -9 lbs Weight loss needed to achieve BMI 25: 79 Lbs Weight loss needed to achieve BMI 30: 52.6 Lbs Provided instructions on dietary changes Provided instructions on exercise. The following attachments cannot be sent through Care Everywhere.Mediterranean Diet (Guyanese)documented in this encounter [facility] Work Phone: 05-13-2023 Note HNO ID: [id number] Author: RUTH ANN GUTIERRES PA-C Service: ? Author Type: Physician Plexiglas Former Type: Progress Notes Filed: 05/13/2023 13:48 Note Text: (Elements copied from my note dated May 15, 2022, have been reviewed and updated where appropriate, and all reflect current assessment and medical decision making during today's encounter, May 13, 2023) CHIEF COMPLAINT: right lower inner breast cancer HISTORY OF PRESENT ILLNESS: Katarina Camara is a 77 year old woman who presents for follow [...] biopsy completed 02/2016 noted invasive ductal carcinoma ER/UT positive, HER2 negative. : Lumpectomy completed 03/21/16 noted grade 2 invasive ductal carcinoma, DCIS grade 2, 14 mm : Margins negative (discussed with the pathologist who assured negative margins but that the anterior margin was within 1.0mm anteriorly). : [place] lymph node was positive for involvement. 06/25/16 [...] bilateral- Negative March 2022: Mammogram bilateral -negative April 2023: mammogram bilateral-negative Katarina returns for a 1 year follow up. Since her last visit she has remained on Femara. Doing well. Generalized joint aches, but none are severe. She did require 3 cardiac stents placed in January 2023. Remains on Fosamax for her osteopenia although it makes her bones hurt every time she takes it. 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 PAST MEDICAL HISTORY Diagnosis Date CHF (congestive heart failure) (HCC) Diabetes mellitus (HCC) Fibromyalgia Hypertension Hypothyroidism Invasive ductal carcinoma of right breast (HCC) ER/UT+ HER2- PAST SURGICAL HISTORY Procedure Laterality Date APPENDECTOMY BREAST BIOPSY CHOLECYSTECTOMY HX HYSTERECTOMY HX PAST SURGICAL HISTORY OF Left cyst removed from ovary TOTAL HIP REPLACEMENT Right Review of Social History includes: Social History Tobacco Use Smoking status: Former Packs/day: 1.00 Years: 15.00 Additional pack years: 0.00 Total pack years: 15.00 Types: Cigarettes Quit date: 06/30/1995 Years since quittin.8 Passive exposure: Past Smokeless tobacco: Never Vaping Use Vaping Use: Never used Substance Use Topics Alcohol use: No Drug use: No FAMILY HISTORY Problem Relation Age of Onset other (Bladder Cancer) Brother Current Outpatient Medications Medication Sig letrozole (FEMARA) 2.5 mg tablet take 1 tablet by mouth every day alendronate (FOSAMAX) 70 mg tablet Take 70 [...] Take 1 mg by mouth once daily. No current facility-administered medications for this visit. REVIEW OF SYSTEMS: CONSTITUTIONAL: No recent fevers or chills MUSC-SKEL: generalized aches, knees are the worse PSY: Denies depression or anxiety Cardiovascular: No current chest pain or palpitations Pulmonary: No shortness of breath, no cough no hemoptysis Lymph no new lumps or bumps Breast: Denies changes on self breast examination HEENT: No oral sores or thrush GI: bowel changes, alternating between diarrhea and constipation Psych no mood swings, norm (more content not included)... [facility] 05-13-2023 History of Presen t illness Narrative Images from the original note were not included. (Elements copied from my note dated May 15, 2022, have been reviewed and updated where appropriate, and all reflect current assessment and medical decision making during today's encounter, May 13, 2023) CHIEF COMPLAINT: right lower inner breast cancer HISTORY OF PRESENT ILLNESS: Katarina Camara is a 77 year old woman who presents for follow [...] biopsy completed 02/2016 noted invasive ductal carcinoma ER/UT positive, HER2 negative. : Lumpectomy completed 03/21/16 noted grade 2 invasive ductal carcinoma, DCIS grade 2, 14 mm : Margins negative (discussed with the pathologist who assured negative margins but that the anterior margin was within 1.0mm anteriorly). : [place] lymph node was positive for involvement. 06/25/16 [...] bilateral- Negative March 2022: Mammogram bilateral -negative April 2023: mammogram bilateral-negative Katarina returns for a 1 year follow up. Since her last visit she has remained on Femara. Doing well. Generalized joint aches, but none are severe. She did require 3 cardiac stents placed in January 2023. Remains on Fosamax for her osteopenia although it makes her bones hurt every time she takes it. 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 PAST MEDICAL HISTORY Diagnosis Date CHF (congestive heart failure) (HCC) Diabetes mellitus (HCC) Fibromyalgia Hypertension Hypothyroidism Invasive ductal carcinoma of right breast (HCC) ER/UT+ HER2- PAST SURGICAL HISTORY Procedure Laterality Date APPENDECTOMY BREAST BIOPSY CHOLECYSTECTOMY HX HYSTERECTOMY HX PAST SURGICAL HISTORY OF Left cyst removed from ovary TOTAL HIP REPLACEMENT Right Review of Social History includes: Social History Tobacco Use Smoking status: Former Packs/day: 1.00 Years: 15.00 Additional pack years: 0.00 Total pack years: 15.00 Types: Cigarettes Quit date: 06/30/1995 Years since quittin.8 Passive exposure: Past Smokeless tobacco: Never Vaping Use Vaping Use: Never used Substance Use Topics Alcohol use: No Drug use: No FAMILY HISTORY Problem Relation Age of Onset other (Bladder Cancer) Brother Current Outpatient Medications Medication Sig letrozole (FEMARA) 2.5 mg tablet take 1 tablet by mouth every day alendronate (FOSAMAX) 70 mg tablet Take 70 [...] Take 1 mg by mouth once daily. No current facility-administered medications for this visit. REVIEW OF SYSTEMS: CONSTITUTIONAL: No recent fevers or chills MUSC-SKEL: generalized aches, knees are the worse PSY: Denies depression or anxiety Cardiovascular: No current chest pain or palpitations Pulmonary: No shortness of breath, no cough no hemoptysis Lymph no new lumps or bumps Breast: Denies changes on self breast examination HEENT: No oral sores or thrush GI: bowel changes, alternating between diarrhea and constipation Psych no mood swings, normal mood and affect PHYSICAL EXAMINATION: BP 141/62 Pulse 109 Temp 36.5 C (97.7 F) (Temporal) Resp 18 Ht 155 cm (5' 1.02 ) Wt 98.3 kg (216 lb 11.4 oz) SpO2 93% BMI 40.92 kg/m General: Alert and oriented, no distress, pleasant and cooperative. Heart: Regular, normal S1 and S2, no murmurs, rubs, or gallops Lungs: Clear to auscultation bilaterally Abdomen: Benign Extremities: Feet/ankles without edema, posterior tibial pulses full and symmetrical Breast:Left breat without mass. Actinic keratoses on left outer quadrant. No masses. Right breast without mass of skin changes. No bilateral axillary nodes, cervical nodes, or SC nodes. IMAGING Mammogram 04/11/2023 PATHOLOGY BIOPSY: 02/2016 ASSESSMENT/PLAN: 1. Malignant neoplasm of lower-inner quadrant of right breast of female, estrogen receptor positive (HCC) - ICD9: 174.3, V86.0, ICD10: C50.311, Z17.0 Completed lumpectomy March 2016 [id number]. Reviewed different options for adjuvant chemotherapy and after careful discussion patient opted for TC. Completed 4 cycles of adjuvant chemotherapy with Taxotere and cyclophosphamide last cycle given on June 26, 2016. Completed adjuvant radiation in September 2016. In September 2016 she was started on anastrozole which she did not tolerate well and since October 2016 has been on letrozole which overall she has done well with. Mammogram 04/2023 was negative, repeat in 1 year Continue femara for a total of 7 years (September 2023). Return in 1 year. Osteopenia-patient on fosamax per PCP Ruth Ann Gutierres PA-C CC: Hilario Gallo DO documented in this encounter [facility] 05-06-[address] labs for follow up on 05/13 per last note. Taylor Barnett documented in this encounter [facility] 04-02-2023 History of Presen t illness Narrative Subjective Katarina Camara is a [...] coronary artery 2. Coronary artery disease involving swinomish coronary artery 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 angina pectoris Follow Up In [...] Morbid obesity (CMS/HCC) documented in this encounter [facility] Work Phone: 04-02-2023 Instructions Viktoria Terrazas [...] check 2 weeks. documented in this encounter [facility] Work Phone: 02-19-2023 Evaluation note Encounter [...] is doing Feb, Coronary artery disease involving swinomish coronary artery 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 angina pectoris (ICD-10 - I25.10) [...] she is doing, continue to avoid NSAIDs [facility] Other 11-22-2023 Evaluation + Plan note* Assessment & Plan Note - CHINYERE Michel - 01/23/2023 12:48 PM ESTAssociated Problem(s): BMI 40.0-44.9, adult ([facility]) Reviewed the merits of healthy lifestyle choices on overall cardiovascular health. [facility] Work Phone: 1(996) 998-907311-22-2023 Evaluation + Plan note* Assessment & Plan Note - CHINYERE Michel - 01/23/2023 12:48 PM ESTAssociated Problem(s): Coronary artery disease involving swinomish coronary artery of swinomish heart with out angina pectoris Jan 17, 2023 cardiac cath (no ACS admit, outpt symptoms) Mid/distal CX PCI/Zeb 2.75/18mm complicated with o/p CX dissection IVUS guided oCX PCI/Zeb 3.5/12mm mLAD PCI/Zeb 3/18mm [facility] Work Phone: [phone]) 620-881511-22-2023 Miscellaneous Notes* Assessment & Plan Note - CHINYERE Michel - 01/23/2023 12:48 PM ESTAssociated Problem(s): BMI 40.0-44.9, adult ([facility]) Reviewed the merits of healthy lifestyle choices on overall cardiovascular health. * Assessment & Plan Note - CHINYERE Michel - 01/23/2023 12:48 PM EST Associated Problem(s): Coronary artery disease involving swinomish coronary artery 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 angina pectoris Jan 17, 2023 cardiac cath (no ACS admit, outpt symptoms) Mid/distal CX PCI/Zeb 2.75/18mm complicated with o/p CX dissection IVUS guided oCX PCI/[place] 3.5/12mm mLAD PCI/[place] 3/18mm * Assessment & Plan Note - [...] intensity statin [facility] 1(542) 258-165811-22-2023 Evaluation + Plan note* Assessment & Plan Note - CHINYERE Michel - 01/23/2023 12:45 PM ESTAssociated Problem(s): Angina pectoris (CMS/HCC) Resolved with recent coronary intervention [facility] Work Phone: [phone]) 450-452011-22-2023 Evaluation + Plan note* Assessment & Plan Note - CHINYERE Michel - 01/23/2023 12:45 PM ESTAssociated Problem(s): Essential hypertension, benign Optimal in office [facility] Work Phone: 1(902) 775-579611-22-2023 Evaluation + Plan note* Assessment & Plan Note - CHINYERE Michel - 01/23/2023 12:45 PM ESTAssociated Problem(s): Hyperlipidemia High intensity statin [facility] Work Phone: 1(997) 503-663811-21-2023 History of Present illness Narrative* CHINYERE Michel [...] recent coronary intervention Coronary artery disease involving swinomish coronary artery 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 angina pectoris Jan 17, 2023 cardiac cath (no ACS admit, outpt symptoms) Mid/distal CX PCI/Zeb 2.75/18mm complicated with o/p CX dissection IVUS guided oCX PCI/[place] 3.5/12mm mLAD PCI/[place] 3/18mm BMI 40.0-44.9, adult (CMS/HCC) Reviewed the [...] Brilinta 3. Referral to Cardiac Rehab at [facility] 4. Return for follow-up; in the interim, contact the office if new symptoms arise. Dr. Calloway 6 months Jacqueline Campos MSN, 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, PMHNP-BC [facility] Please excuse any errors in grammar or translation related to this dictation. Voice recognition software was utilized to prepare this document. [facility]: 1(655) 290-407311-21-2023 Instructions* Patient Instructions* CHINYERE Michel - 01/22/2023 [...] Brilinta 3. Referral to Cardiac Rehab at [facility] 4. Return for follow-up; in the interim, contact the office if new symptoms arise. Dr. Calloway 6 months [facility] Phone: 1(894) 260-196011-16-2023 Consult note Author Tamiko Zhou [facility] January 17, 2023 5:50pm Note Date/Time January 17, 2023 5:51pm [facility] [address] [place] [address] Cardiology Consult Note Signed Patient: Katarina Camara MR#: [id number] : 1945 Acct:[id number] Age/Sex: 77 / F Adm Date: 3 Loc: 4P Room: [address] [place] [address] Type: [facility] SDC Attending Dr: Nani Calloway MD Copies to: Nani Calloway MD, FACC MD Tamiko Torre, DO~ Cardiology HPI History of Present Illness [...] stress testing from discussion with her primary airline reservation agent There is no prior history of myocardial [...] Constitutional: Reports as per HPI [facility] Medical History (Updated 01/17/23 @ 17:50 by [...] Code(s): I25.10 - Atherosclerotic heart disease of swinomish coronary artery without angina pectoris (2) Hyperlipidemia: Code(s): E78.5 - Hyperlipidemia, unspecified (3) Hypertension: Code(s): I10 - Essential (primary) hypertension (4) Angina pectoris: Code(s): I20.9 - Angina pectoris, unspecified Documented By: Tamiko Zhou DO 01/17/231745 Signed By: <Electronically signed by Tamiko Zhou DO> 01/17/231749 [facility] Work Phone: [phone]) 568-183711-16-2023 Procedure [facility]11-16-2023 Procedure [facility]10-24-2023 History of Present illness Narrative* Nani Calloway MD - 12/25/2022 9:50 AM EDT Alvin Camara is a 77 y.o. female Chief Complaint Establish Care Chest pain/abnormal nuclear stress test HPI 77-year-old white female with no previous cardiac history who has history of hypertension, hyperlipidemia with no diabetes but with remote history of tobacco abuse who was admitted to [facility] in October 2022 with an episode [...] hypertension, benign [facility] [phone]) 461-667910-24-2023 Instructions* Patient Instructions* Deborah Lee LPN - [...] your visit. [facility]: [phone]) 396-586210-09-2023 Evaluation note* Encounter Date Diagnosis Assessment Notes [...] has microscopic hematuria likely due to Nephrolithiasis [facility] Other 03-30-2023 Evaluation note* Encounter Date Diagnosis [...] understanding and is agreeable to treatment plan [facility] Other 03-14-2023 NoteHNO ID: [id number] Author: Ruth Ann Gutierres PA-C Service: ? Author Type: Physician Plexiglas Former Type: Progress Notes Filed: 05/15/2022 4:24 PM [...] biopsy completed 02/2016 noted invasive ductal carcinoma ER/UT positive, HER2 negative. : Lumpectomy completed 03/21/16 noted grade 2 invasive ductal carcinoma, DCIS grade 2, 14 mm : Margins negative (discussed with the pathologist who assured negative margins but that the anterior margin was within 1.0mm anteriorly). : [place] lymph node was positive for involvement. 06/25/16 [...] Invasive ductal carcinoma of right breast (HCC) ER/UT+ HER2- PAST SURGICAL HISTORY Procedure Laterality Date [...] BMI 42.03 kg/m? General: (more content not included)...[facility]03-14-2023 Nurse Note* Audrey Novoa MA - 05/15/2022 3:07 PM EDT Patient states her upper right breast feels tubular and intermittent pain upper right breast could it be hormonal. She also states that night sweats do come intermittent. Aud[facility] Novoa MA [facility] History of Present illness Narrative* Ruth [...] biopsy completed 02/2016 noted invasive ductal carcinoma ER/UT positive, HER2 negative. : Lumpectomy completed 03/21/16 noted grade 2 invasive ductal carcinoma, DCIS grade 2, 14 mm : Margins negative (discussed with the pathologist who assured negative margins but that the anterior margin was within 1.0mm anteriorly). : [place] lymph node was positive for involvement. 06/25/16 [...] Invasive ductal carcinoma of right breast (HCC) ER/UT+ HER2- PAST SURGICAL HISTORY Procedure Laterality Date [...] ICD10: C50.311, Z17.0 Completed lumpectomy March 2016 [id number]. Reviewed different options for adjuvant chemotherapy andafter [...] Ruth Ann Gutierres PA-C [facility] Evaluation note* Encounter Date Diagnosis Assessment [...] understanding and is agreeable with treatment plan [facility] Other 10-05-2022 Evaluation note* Encounter Date Diagnosis [...] has microscopic hematuria likely due to Nephrolithiasis [facility] Other 12-08-2021 Note [id number]12-08-2021 NoteEducation Materials POST OPERATIVE TOTAL HIP DISCHARGE [...] can be done to rule of a DVT.[facility] [id number] [facility] Clinical Discharge Summary PERSON INFORMATION Name KATARINA CAMARA Age 75 Years 1945 Sex FEMALE Language Guyanese PCP NICOLE VARGAS MD Marital Status Med Service Observation Acct# Arrival 02/06/2021 08:56:00 Visit Reason SURGERY - RIGHT TOTAL HIP Acuity LOS 002 01:34 Address: [address] [place] [address] Comment: PROVIDER INFORMATION VITALS INFORMATION Vital Sign [...] range between ( 1.3 and 2.9 ) Wetzel Abs#: 0.6 x103/mcL -- Normal range between ( 0.0 and 0.8 ) Auto Baso %: 0.5 % -- Normal range between ( 0.2 and 2.0 ) Auto Wetzel %: 11 % -- Normal range between [...] INCOMPLETE INFORMATION PATIENT EDUCATION INFORMATION Instructions: Emily [facility] Extended [facility] Follow up: With: Address: When: Bernadine Diaz [address] [place] [id number] Business (1) 12/17/2020 11:00 AM With: Address: When: NICOLE VARGAS [address] [place] [id number] Business (1) DIAGNOSIS Chronic right hip pain; Other chronic pain; Primary localized osteoarthritis of right hip Comment: PHYS [facility]12-06-2021 Note [id number] HospitalDischarge summary Author Tamiko Zhou [facility] January 18, 2023 12:54pm Note Date/Time January 18, 2023 12:50pm [address] [address] Discharge Summary Signed Patient: Katarina Camara MR#: [id number] : 1945 Acct:[id number] Age/Sex: 77 / F Adm Date: 3 Loc: CL Room: Attending Dr: Nani Calloway MD Copies to: Nani Calloway MD, [facility] MD Tamiko Torre DO~ Providers Date of Discharge: 01/18/23 Discharging [...] distal circumflex with 2.75 x 18 mm [place]; ostial/proximal circumflex with 3.5 x 12 mm [place], and mid LAD with 3 x 18 mm [place]. She developed mild right infra inguinal hematoma postoperatively, stayed overnight. CT imaging did not reveal any suprainguinal or retroperitoneal pathology, hemoglobin was stable She has been up and ambulating in the room with moderate infrainguinal ecchymosis but otherwise soft groin. She will be discharged today on current therapies to follow-up with her primary airline reservation agent Condition Condition at Discharge: Stable Status at Discharge Functional status at discharge: independent ambulation Overall status at discharge: patient is back to baseline Time Spent with Patient Time spent providing/coordinating discharge services (# min): 30 Surgeries and Procedures Operation Date: 01/17/23 14:15 Actual Procedures p CL Stent 1st Vessel CX JANICE - W Hector Zhou DO p CL Stent Ea Add CX JANICE - W Hector Zhou DO p CL Stent 1st Vessel LAD JANICE - W Hector Zhou DO p CL Ivus Initial Vessel - W Hector Zhou DO p CL LHC & COR Angio - Nani Calloway MD p CL Closure Device Placement 0 - W Hector Abelardo, DO Complications Complications: Small right groin hematoma [...] doctor or pharmacist, without first calling the airline reservation agent who implanted the stent. If you require [...] weight lifting, stair steppers, etc. until the airline reservation agent approves these activities. Check with the airline reservation agent on your first follow-up visit. CALL YOUR PHYSICIAN at [phone]: -If bleeding should occur from the catheter insertion site- apply pressure to the site then immediately call us. -Report any fever, redness, drainage, increased swelling, or firmness at the catheter insertion site. Some bruising or slight swelling may be present at thetime of discharge. -Should arm or leg become cold, numb, white, or blue, contact the airline reservation agent immediately. -IF you should experience episodes of [...] is recommended. Please call Central Scheduling at [phone] to schedule your appointment.] The attending airline reservation agent or [facility] nurse clinician should provide you with specific instructions regarding activity, diet, medications, and further follow up for you. Follow the medication instructions provided on your discharge. If the dosages and instructions on this sheet differ from the dosage and instructions on the bottle, follow the instructions on the bottle. [facility] is not responsible for incorrect prescription information [...] THE DAY WITH PLAIN WATER Rx Instructions: Saturday' tramadol 50 mg Tablet 50 mg PO [...] Tablet 325 mg PO QAM Follow Up: [facility] [Outside] - 01/22/23 10:30 am Documented By: Tamiko Zhou DO 01/18/23 1249 Signed By: <Electronically signed by Tamiko Zhou DO> 01/18/23 1258 [facility] Work Phone: Evaluation note* Diagnosis Malignant neoplasm of lower-inner quadrant of right breast of female, estrogen receptor positive (HCC)- Primary Breast screening Breast screening, unspecified Encounter for screening mammogram for malignant neoplasm of breast Other screening mammogram Osteopenia, unspecified location [facility] information [facility] Work Phone: Evaluation note* Diagnosis Abnormal stress test Other nonspecific abnormal cardiovascular system function study Angina pectoris (CMS/HCC) Other and unspecified angina pectoris Abnormal EKG Nonspecific abnormal electrocardiogram (ECG) (EKG) Hyperlipidemia, unspecified hyperlipidemia type Essential hypertension, benign documented in this encounter [facility] Work Phone: Evaluation note* Diagnosis Coronary artery disease involving swinomish coronary artery 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 angina pectoris- Primary S/P angioplasty with stent Postsurgical percutaneous transluminal coronary angioplasty status Angina pectoris (CMS/HCC) Other and unspecified angina pectoris Essential hypertension, benign Mixed hyperlipidemia BMI 40.0-44.9, adult (CMS/HCC) documented in this encounter [facility] Work Phone: Evaluation noteNo InformationNost. luke[facility] Other Evaluation note* Diagnosis Onset Date Resolution Status Angina pectoris acute ASHD (arteriosclerotic heart disease) acute Hyperlipidemia acute Hypertension acute S/P cardiac catheterization acute [facility] Work Phone: Evaluation note* Diagnosis Stented coronary artery- Primary Postsurgical percutaneous transluminal coronary angioplasty status Coronary artery disease involving swinomish coronary artery 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 angina pectoris Essential hypertension, benign Mixed hyperlipidemia Abnormal stress test Other nonspecific abnormal cardiovascular system function study Morbid obesity (CMS/HCC) Morbid obesity documented in this encounter [facility] Work Phone: Evaluation note* Diagnosis Malignant neoplasm of lower-inner quadrant of right breast of female, estrogen receptor positive (HCC)- Primary Obesity, Class III, BMI 40-49.9 (morbid obesity) (HCC) Morbid obesity Breast screening Breast screening, unspecified Encounter for screening mammogram for malignant neoplasm of breast Other screening mammogram Osteopenia, unspecified location [facility] Diagnosis Malignant neoplasm of lower-inner quadrant of right breast of female, estrogen receptor positive (HCC)- Primary [facility] Diagnosis Onset Date Resolution Status Coronary artery disease invo lving swinomish coronary artery of swinomish heart acute Former smoker acute Osteoporosis acute [facility] Work Phone: Evaluation note* Diagnosis Coronary artery disease involving swinomish coronary artery 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 angina pectoris- Primary S/P PTCA (percutaneous transluminal coronary angioplasty) Postsurgical percutaneous transluminal coronary angioplasty status Mixed hyperlipidemia Essential hypertension, benign BMI 39.0-39.9,adult Former smoker Personal history of tobacco use, presenting hazards to health Class 2 obesity documented in this encounter [facility] Work Phone: Evaluation note* Diagnosis Onset Date Resolution Status Sinobronchitis acute Osteopenia acute [facility] Work Phone: Evaluation note* Diagnosis Onset Date Resolution Status Sinobronchitis acute Coronary artery disease invo lving swinomish coronary artery of [place] heart acute Cough syncope acute Osteopenia acute Periorbital ecchymosis of left eye acute Sinobronchitis acute Cough acute [facility] Work Phone: Evaluation note* Diagnosis Onset Date Resolution Status Coronary artery disease invo lving sw[place] coronary artery of [place] heart acute Cough syncope acute Osteopenia acute Periorbital ecchymosis of left eye acute Sinobronchitis acute Cough acute Bilateral renal cysts acute CKD (chronic kidney disease) stage 3, GFR 30-59 ml/min acute [id number] acute Kidney stones acute Microscopic hematuria acute Secondary hyperparathyroidism [facility] Work Phone: Evaluation note* Diagnosis Onset Date Resolution Status Cough acute Bilateral renal cysts acute CKD (chronic kidney disease) stage 3, GFR 30-59 ml/min acute [id number] acute Hyperuricemia acute Hypokalemia acute Kidney stones acute Microscopic hematuria acute Secondary hyperparathyroidism acute Cough due to NIURKA inhibitor a cute [facility] Work Phone: evaluation note* Diagnosis Subarachnoid hemorrhage (HCC)- Primary Subarachnoid hemorrhage Subarachnoid hemorrhage (HCC) Subarachnoid hemorrhage Vitamin D deficiency Unspecified vitamin D deficiency S/P PTCA (percutaneous transluminal coronary angioplasty) Postsurgical percutaneous transluminal coronary angioplasty status Morbid obesity Hypothyroidism Unspecified hypothyroidism Hyperlipidemia Other and unspecified hyperlipidemia History of malignant neoplasm of breast Personal history of malignant neoplasm of breast Essential hypertension, benign Arteriosclerosis of coronary artery Coronary atherosclerosis of unspecified type of vessel, [place] or graft documented in this encounter [facility] general Narrative - Reported* Type Description Date [...] History SEE ABOVE Hospitalization History CHILD B[facility] Other [facility] general Narrative - Reported* Type Description Date [...] History SEE ABOVE Hospitalization History CHILD BIR[facility] Other History general Narrative - Reported* Type [...] PCI Small right groin hematoma, Obesity 01/17/23-01/18/23 [facility] Other Hospital Discharge instructions Additional Instructions DISCHARGE [...] doctor or pharmacist, without first calling the airline reservation agent who implanted the stent. If you require [...] weight lifting, stair steppers, etc. until the airline reservation agent approves these activities. Check with the airline reservation agent on your first follow-up visit. CALL YOUR PHYSICIAN at [phone]: -If bleeding should occur from the catheter insertion site- apply pressure to the site then immediately call us. -Report any fever, redness, drainage, increased swelling, or firmness at the catheter insertion site. Some bruising or slight swelling may be present at the time of discharge. -Should arm or leg become cold, numb, white, or blue, contact the airline reservation agent immediately. -IF you should experience episodes of [...] is recommended. Please call Central Scheduling at [phone] to schedule your appointment.] The attending airline reservation agent or [facility] nurse clinician should provide you with specific instructions regarding activity, diet, medications, and further follow up for you. Follow the medication instructions provided on your discharge. If the dosages and instructions on this sheet differ from the dosage and instructions on the bottle, follow the instructions on the bottle. [facility] is not responsible for incorrect prescription information provided by the patient during their visit. Do not stop your medications without consulting your health care provider. Please take the list with you to your next doctor's appointment.[facility] Work Phone: Progress note Author [facility] January 18, 2023 12:55pm Note Date/Time January 18, 2023 12:26pm [facility] [address] [place] [address] Cardiology Progress Note Signed Patient: Katarina Camara MR#: [id number] : 1945 Acct:[id number] Age/Sex: 77 / F Adm Date: 3 Loc: Room: Type: [facility] Attending Dr: Nani Calloway MD Copies [...] stress testing from discussion with her primary airline reservation agent There is no prior history of myocardial [...] PCI of mid/distal circumflex and ostial circumflex [place] stents with IVUS guidance, and mid LAD [...] Code(s): I25.10 - Atherosclerotic heart disease of [place] coronary artery without angina pectoris Status: Acute (3) Hyperlipidemia: Code(s): E78.5 - Hyperlipidemia, unspecified Status: Acute (4) Hypertension: Code(s): I10 - Essential (primary) hypertension Status: Acute (5) Angina pectoris: Code(s): I20.9 - Angina pectoris, unspecified Status: Acute Documented By: Florencio De La Fuente DO, RES 01/18/23 12 10 Signed By: <Electronically signed by RES Florencio De La Fuente> 01/18/23 1226 <Electronically signed by Tamiko Zhou DO> 01/18/23 1255 [facility] Work Phone: Reason for referral (narrative)* Diagnostic Procedure Only (Routine) - Pending Review Specialty Diagnoses / Procedures Referred By Andrés pereyra Referred To Contact [facility] Diagnoses Malignant neoplasm of lower-inner quadrant of right breast of female, estrogen receptor positive (HCC) Breast screening Encounter for screening mammogram for malignant neoplasm of breast Procedures WICHO SCREENING W BETINA SCREENING DIGITAL BREAST TOMOSYNTHESIS BI SCREENING MAMMOGRAPHY BI 2-VIEW BREAST INC CAD Ruth Ann Gutierres PA-C [address] [place] [address] [place] [address] [facility] [address] [place] [address] Referral ID Status Reason Start Date Expiration Date Visits Requested Visits Authorized [id number] Pending Review Auto-Generat ed Referral 05/15/2022 06/14/2023 1 1 [facility] for referral (narrative)* Consultation (Routine) - Authorized Specialty Diagnoses / Procedures Referred By Andrés pereyra Referred To Contact Cardiology Diagnoses Abnormal stress test Angina pectoris (CMS/HCC) Procedures Follow Up In Cardiology Nani Calloway MD [address] [facility] [address], [address] [address] Nani Calloway MD [address] [place] [address] Referral ID Status Reason Start Date Expiration Date V isits Requested Visits Authorized [id number] Authorized 12/25/2022 12/25/2023 1 1 * Cardiovascular (Routine) - Pending Review Specialty Diagnoses / Procedures Referred By Contac t Referred To Contact Diagnoses Abnormal stress test Angina pectoris (CMS/HCC) Procedures ECG 12 Lead Nani Calloway MD [address] [place] [address] Referral ID Status Reason Start Date Expiration Date V isits Requested Visits Authorized [id number] Pending Review 12/25/2022 12/25/2023 1 1 [facility] Work Phone: Reason for referral (narrative)* Consultation (Routine) - Authorized Specialty Diagnoses / Procedures Referred By Contac t Referred To Contact Cardiology Diagnoses Coronary artery disease involving [place] coronary artery 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 angina pectoris Procedures Follow Up In Cardiology Jacqueline Campos APRN-NUT SIFTER [address] [place] [address] Nani Calloway MD [address] [place] [address] Referral ID Status Reason Start Date Expiration Date V isits Requested Visits Authorized [id number] Authorized 01/22/2023 01/22/2024 1 1 * Consultation (Routine) - Authorized Specialty Diagnoses / Procedures Referred By Contac t Referred To Contact Cardiac Rehabilitation Diagnoses S/P angioplasty with stent Coronary artery disease involving [place] coronary artery 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 angina pectoris Jacqueline Campos APRN-NUT SIFTER [address] [place] [address] Referral ID Status Reason Start Date Expiration Date Visits Requested Visits Authorized [id number] Authorized Specialty Services Required 01/22/2024 1 1 [facility] Work Phone: [place] for referral (narrative)* Consultation (Routine) - Authorized Specialty Diagnoses / Procedures Referred By Contac t Referred To Contact Cardiology Diagnoses Essential hypertension, benign Procedures Follow Up In Cardiology Nani Calloway MD [address] [facility] 2, [address] [address] Nani Calloway MD [address] [facility] 2, [address] [address] Referral ID Status Reason Start Date Expiration Date V isits Requested Visits Authorized [id number] Authorized 04/02/2023 04/01/2024 1 1 * Consultation (Routine) - Authorized Specialty Diagnoses / Procedures Referred By Contac t Referred To Contact Cardiology Diagnoses Coronary artery disease involving [place] coronary artery 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 angina pectoris Essential hypertension, benign Procedures Follow Up In Cardiology Nani Calloway MD [address] [facility] 2, [address] [address] Referral ID Status Reason Start Date Expiration Date V isits Requested Visits Authorized [id number] Authorized 04/02/2023 04/01/2024 1 1 [facility] Work Phone: reason for referral (narrative)* Diagnostic Procedure Only (Routine) - Pending Review Specialty Diagnoses / Procedures Referred By Contac t Referred To Contact [facility] IMAGING Diagnoses Obesity, Class III, BMI 40-49.9 (morbid obesity) (HCC) Malignant neoplasm of lower-inner quadrant of right breast of female, estrogen receptor positive (HCC) Breast screening Encounter for screening mammogram for malignant neoplasm of breast Osteopenia, unspecified location Procedures WICHO SCREENING W BETINA SCREENING DIGITAL BREAST TOMOSYNTHESIS BI SCREENING MAMMOGRAPHY BI 2-VIEW BREAST INC CAD Ruth Ann Gutierres PA-C [address] [place] [address] [place] [address] [facility] [address] [place] [address] Referral ID Status Reason Start Date Expiration Date Visits Requested Visits Authorized [id number] Pending Review Auto-Generat ed Referral 04/14/2024 06/11/2024 1 1 [facility] for referral (narrative)* Consultation (Routine) - Authorized Specialty Diagnoses / Procedures Referred By Contac t Referred To Contact Cardiology Diagnoses Coronary artery disease involving [place] coronary artery 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 angina pectoris Procedures Follow Up In Cardiology Nani Calloway MD [address] [place] [address], [address] [address] Nani Calloway MD [address] [place] [address] 2, [address] [address] Referral ID Status Reason Start Date Expiration Date V isits Requested Visits Authorized [id number] Authorized 08/08/2023 08/07/2024 1 1 [facility] Work Phone: Summary Purpose Family History [...] Retinal microaneurysm of right eye Unknow n Relationship Condition Age at Onset Recorded Date/T juany sister Cerebral aneurysm Unknown brother Cerebral aneurysm Unknown brother Benign neoplasm of brain Unknown brother Malignant neoplasm of urinary bladder Unk nown Status post single v essel coronary artery bypass Unknown sister Malignant neoplasm of colon Unknown sister Retinal microaneurysm of right eye Unknow n brother Malignant neoplasm Unknown Hypertension Unknown father Unknown family member Unknown Not Specified Heart disease Unknown Unknown natural son Malignant neoplasm Unknown sister Family history of mental disorder Unknown Malignant neoplasm Unknown Relationship Condition Age at Onset Recorded Date/T juany sister Cerebral aneurysm Unknown brother Cerebral aneurysm Unknown brother Benign neoplasm of brain Unknown brother Malignant neoplasm of urinary bladder Unk nown Status post single v essel coronary artery bypass Unknown sister Malignant neoplasm of colon Unknown sister Retinal microaneurysm of right eye Unknow n brother Malignant neoplasm Unknown Hypertension Unknown father Unknown family member Unknown mother Heart disease Unknown Unknown son Malignant neoplasm Unknown sister Family history of mental disorder Unknown Malignant neoplasm Unknown Advance Directives No Advanced Directives Records Found Advance Directive Response Recorded Date/ Time Advance Directives No September 05 12:36pm Advance Directive Response Recorded Date/ Time Advance Directives No September 05 11:36am Date Activated Date Inactivated Comments 03/03/2024 3:02 PM Healthcare Agents on File Name Relationship Healthcare Agent Relationshi p Communication Saundra Octavio Child Primary Decision Maker Fawn Beverley Grandchild Secondary Decision Maker Carol Cunningham Grandchild Supplemental (Other) Ish n Maker Chief Complaint and Reason for Visit Chief Complaint R07.9 Chief Complaint R07.9 Angina, Abnormal Stress Test, Abnormal EKG Angina, Abnormal Stress Test, Abnormal EKG Reason for Visit Angina pectoris ASHD (arteriosclerotic heart disease) Hyperlipidemia Hypertension S/P cardiac catheterization Chief Complaint Angina, Abnormal Str ess Test, Abnormal EKG R60.9 Z95.820 M79.604 M79.089 Est Care Chief Complaint i10 i25.10 e78.2 8 week follow up z13.820 m81.0 Reason for Visit Coronary artery dise ase involving [place] coronary artery of [place] heart Former smoker Osteoporosis Chief Complaint z13.820 m81.0 cough 4 month follow up Reason for Visit Sinobronchitis Osteopenia Chief Complaint cough 4 month follow up Ongoing cough Reason for Visit Sinobronchitis Coronary artery disease involving [place] coronary artery of [place] heart Cough syncope Osteopenia Periorbital ecchymosis of left eye Sinobronchitis Cough Chief Complaint cough 4 month follow up Ongoing cough r05.9 Reason for Visit Sinobronchitis Coronary artery disease involving [place] coronary artery of [place] heart Cough syncope Osteopenia Periorbital ecchymosis of left eye Sinobronchitis Cough Chief Complaint 4 month follow up Ongoing cough r05.9 RENAL 1 year follow up Reason for Visit Coronary artery dise ase involving [place] coronary artery of [place] heart Cough syncope Osteopenia Periorbital ecchymosis of left eye Sinobronchitis Cough Bilateral renal cysts CKD (chronic kidney disease) stage 3, GFR 30-59 ml/min [id number] Kidney stones Microscopic hematuria Secondary hyperparathyroidism Chief Complaint 4 month follow up Ongoing cough r05.9 RENAL 1 year follow up r31.9 n25.81 i12.9 q61.02 n18.30 Reason for Visit Coronary artery dise ase involving [place] coronary artery of [place] heart Cough syncope Osteopenia Periorbital ecchymosis of left eye Sinobronchitis Cough Bilateral renal cysts CKD (chronic kidney disease) stage 3, GFR 30-59 ml/min [id number] Kidney stones Microscopic hematuria Secondary hyperparathyroidism Chief Complaint Ongoing cough r05.9 RENAL 1 year follow up r31.9 n25.81 i12.9 q61.02 n18.30 1 month follow up Reason for Visit Cough Bilateral renal cysts CKD (chronic kidney disease) stage 3, GFR 30-59 ml/min [id number] Hyperuricemia Hypokalemia Kidney stones Microscopic hematuria Secondary hyperparathyroidism Cough due to NIURKA inhibitor Additional Source Comments INFORMATION SOURCE (unrecogn ized section and content) DATE CREATED AUTHOR 02/15/2021 [facility] DATE CREATED AUTHOR AUTHOR'S ORGANIZ ATION 06/16/2022 [facility] DATE CREATED AUTHOR AUTHOR'S ORGANIZ ATION 06/28/2022 [facility] DATE CREATED AUTHOR AUTHOR'S ORGANIZ ATION 11/02/2022 [facility] DATE CREATED AUTHOR AUTHOR'S ORGANIZ ATION 05/15/2023 [facility] DATE CREATED AUTHOR AUTHOR'S ORGANIZ ATION 12/01/2023 [facility] DATE CREATED AUTHOR AUTHOR'S ORGANIZ ATION 02/18/2024 [facility] DATE CREATED AUTHOR AUTHOR'S ORGANIZ ATION 03/05/2024 [facility] DATE CREATED AUTHOR AUTHOR'S ORGANIZ ATION 03/12/2024 [facility] DATE CREATED AUTHOR AUTHOR'S ORGANIZ ATION 03/14/2024 [facility] REASON FOR VISIT (unrecogniz ed section and content) Reason Comments Refill Request Reason Comments Breast Cancer 1 year follow up Reason Comments Establish Care Abnormal stress & SO B Specialty Diagnoses / Procedures Referred By Contac t Referred To Contact Diagnoses Abnormal stress test Angina pectoris (CMS/HCC) Procedures ECG 12 Lead Nani Calloway MD [address] [place] [address] Referral ID Status Reason Start Date Expiration Date V isits Requested Visits Authorized [id number] Pending Review 12/25/2022 12/25/2023 1 1 Reason Comments Follow-up [facility], d/c Specialty Diagnoses / Procedures Referred By Contac t Referred To Contact Cardiology Diagnoses S/P angioplasty with stent Procedures Follow Up In Cardiology Niraj Zhou DO [address] [place] [address] Nani Calloway MD [address] [place] [address] Referral ID Status Reason Start Date Expiration Date V isits Requested Visits Authorized [id number] Authorized 01/18/2023 01/18/2024 1 1 Reason Comments Follow-up 3 month Post-Cath Specialty Diagnoses / Procedures Referred By Contac t Referred To Contact Cardiology Diagnoses Abnormal stress test Angina pectoris (CMS/HCC) Procedures Follow Up In Cardiology Nani Calloway MD [address] [place] [address] Nani Calloway MD [address] [place] [address] Referral ID Status Reason Start Date Expiration Date V isits Requested Visits Authorized [id number] Authorized 12/25/2022 12/25/2023 1 1 Reason Comments Breast Cancer Follow up Reason Comments Lab Orders Reason Comments Follow-up 6 month Specialty Diagnoses / Procedures Referred By Contac t Referred To Contact Cardiology Diagnoses Coronary artery disease involving [place] coronary artery 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 angina pectoris Procedures Follow Up In Cardiology Jacqueline Campos, T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NUT SIFTER [address] [facility] 2, [facility] [address] [place] [address] Nani Calloway MD [address] [facility] 2, [address] [place] [address] Referral ID Status Reason Start Date Expiration Date V isits Requested Visits Authorized [id number] Authorized 01/22/2023 01/22/2024 1 1 Reason Comments Fall Specialty Diagnoses / Procedures Referred By Contac t Referred To Contact Diagnoses SAH (subarachnoid hemorrhage) (HCC) Tona Avendaño MD [address] [place] [address] [facility] [address] [place] [address] Referral ID Status Reason Start Date Expiration Date Visits Re quested Visits Authorized [id number] 1 1 Source Comments (unrecognize d section and content) In the event this informatio n is protected by the Federal Confidentiality of Alcohol and Drug Abuse Patient Records regulations: The Federal rules restrict any use of the information to criminally investigate or prosecute any alcohol or drug abuse patient[facility] the event this information is protected by the Federal Confidentiality of Alcohol and Drug Abuse Patient Records regulations: The Federal rules restrict any use of the information to criminally investigate or prosecute any alcohol or drug abuse patient.[facility] the event this information is protected by the Federal Confidentiality of Alcohol and Drug Abuse Patient Records regulations: The Federal rules restrict any use of the information to criminally investigate or prosecute any alcohol or drug abuse patient.[facility] the event this information is protected by the Federal Confidentiality of Alcohol and Drug Abuse Patient Records regulations: The Federal rules restrict any use of the information to criminally investigate or prosecute any alcohol or drug abuse patient.[facility] Care Teams (unrecognized sec tion and content) Stunt Performer Relationship Specialty Start Date End Date Nicole Vargas [address] [address] PCP - General Family Medicine 07/15/18 Stunt Performer Relationship Specialty Start Date End Date Nicole Vargas [address] [facility] [address] [place] [address] PCP - General Family Medicine 07/15/18 Team Status: Active Member Role Status Dates Nicole Vargas MD Primary Care Provider Active Team Status: Inactive Member Role Status Dates Nicole Vargas MD Primary Care Provider Active Shellie Fan , FINANCE ADVISOR-C Attending Provider Active Tamiko Zhou DO Referring Provider Active Stunt Performer Relationship Specialty Start Date End Date Nicole Vargas MD [address] [facility] [address] [place] [address] PCP - General Family Medicine 12/25/22 Stunt Performer Relationship Specialty Start Date End Date Nicole Vargas MD [address] [facility] [address] [place] [address] PCP - General Family Medicine 12/25/22 Mary Dasilva, entry level installation technicianFinal Cigar And Box Examiner 01/18/23 Team Status: Inactive Member Role Status Dates Nicole Vargas MD Primary Care Provider Active Nani Calloway MD Attending Provider Active Stunt Performer Relationship Specialty Start Date End Date Nicole Vargas MD [address] [facility] [address] [place] [address] PCP - General Family Medicine 02/05/23 Mary Dasilva, entry level installation technicianFinal Cigar And Box Examiner 01/18/23 Team Status: Inactive Member Role Status Dates Nicole Vargas MD Primary Care Provider Active S tart: January 17, 2023 End: January 18, 2023 Nani Calloway MD Attending Provider Active St art: January 17, 2023 End: January 18, 2023 Team Status: Inactive Member Role Status Dates Nicole Vargas MD Primary Care Provider Active S tart: February 05, 2023 End: February 05, 2023 Jacqueline Campos APRN Attending Provider Active Start: February 05, 2023 End: February 05, 2023 Team Status: Inactive Member Role Status Dates Hilario Gallo DO Attending Provider Active Start: February 19, 2023 End: February 19, 2023 Team Status: Inactive Member Role Status Dates Nicole Vargas MD Primary Care Provider Active S tart: April 16, 2023 End: April 16, 2023 Nani Calloway MD Attending Provider Active St art: April 16, 2023 End: April 16, 2023 Stunt Performer Relationship Specialty Start Date End Date Mast Hilario E, DO [address] [facility] [address] PCP - General Family Medicine 05/13/23 Stunt Performer Relationship Specialty Start Date End Date Nicole Vargas MD [address] [address] PCP - General Family Medicine 07/15/18 05/12/23 Mast, Hilario E, DO [address] [place] [place] [address] PCP - General Family Medicine 05/13/23 Team Status: Active Member Role Status Dates Hilario Mast , DO Primary Care Provider Active Team Status: Inactive Member Role Status Dates Hilario Mast , DO Primary Care Provide r, Attending Provider Active Start: May 06, 2023 End: May 06, 2023 Team Status: Inactive Member Role Status Dates Hilario Mast , DO Primary Care Provide r, Attending Provider Active Start: June 24, 2023 End: June 24, 2023 Stunt Performer Relationship Specialty Start Date End Date Nicole Vargas MD [address] [facility] [address] [place] [address] PCP - General Family Medicine 02/05/23 Team Status: Inactive Member Role Status Dates Hilario Mast , DO Primary Care Provide r, Attending Provider Active Start: September 02, 2023 End: September 02, 2023 Team Status: Inactive Member Role Status Dates Hilario Mast , DO Primary Care Provide r, Attending Provider Active Start: September 09, 2023 End: September 09, 2023 Team Status: Inactive Member Role Status Dates Hilario Mast , DO Primary Care Provide r, Attending Provider Active Start: November 08, 2023 End: November 08, 2023 Team Status: Inactive Member Role Status Dates Jani Aguilera MD Attending Provider Active Start : December 02, 2023 End: December 02, 2023 Hilario Gallo DO Primary Care Provider Active Star t: December 02, 2023 End: December 02, 2023 Team Status: Inactive Member Role Status Dates Hilario Gallo DO Primary Care Provider Active Star t: December 02, 2023 End: December 02, 2023 Jani Aguilera MD Attending Provider Active Start : December 02, 2023 End: December 02, 2023 Team Status: Inactive Member Role Status Dates Hilario Gallo DO Primary Care Provide r, Attending Provider Active Start: December 09, 2023 End: December 09, 2023 Stunt Performer Relationship Specialty Start Date End Date CleoHilario [address] [place] [address], [facility] [place] [address] PCP - General Family Medicine 03/03/24 Goals (unrecognized section and content) Goals may be documented in a n alternate section Ordered Prescriptions (unrec ognized section and content) Prescription Sig Dispensed Refills Start Date End Da te aspirin 81 MG EC tablet Take 1 tablet by mouth daily 30 tablet 3 03/07/2024 Scheduled Active and Recently Administ ered Medications (unrecognized section and content) Medication Order 03/04/2024 03/05/2024 03/06/2024 acetaminophen (TYLENOL) tablet 1,000 mg 1,000 mg, Oral, EVERY 8 HOURS SCHEDULED (3 times per day), First dose on Sat03/03/24 at 1515, Until Discontinued, Maximum dose of acetaminophen is 4000 mg from all sources in 24 hours. 0638 (Given - Provider: Za Harris RN)1517 (Given - Provider: Ольга Kee RN)2100 (Given - Provider: Ольга Oliveros RN) 0624 (Given - Provider: Ольга Oliveros RN)1357 (Given - Provider: Tanya Higgins RN)2130 (Given - Provider: Maria Isabel Harris RN) 0649 (Given - Provider: Maria Isabel Harris RN)1543 (Not Given - Provider: Francie Liz RN - Reason: Other)2200 (Due) aspirin EC tablet 81 mg 81 mg, Oral, DAILY, First dose on Sat03/05/24 at 1015, Until Discontinued, Do not crush or break. 1049 (Given - Provider: Tanya Higgins RN) 0946 (Given - Provider: Francie Liz, YADIEL) carvedilol (COREG) tablet 3.125 mg 3.125 mg, Oral, 2 TIMES DAILY WITH MEALS, First dose on Sat03/03/24 at 2100, Until Discontinued, Administer with food to minimize the risk of orthostatic hypotension 0750 (Given - Provider: Ольга Kee RN)1517 (Given - Provider: Ольга Kee RN) 0756 (Given - Provider: Shayla Omalley RN)1641 (Given - Provider: Tanya Higgins RN) 0946 (Given - Provider: Francie Liz RN)1700 (Due) DULoxetine (CYMBALTA) extended release capsule 60 mg 60 mg, Oral, DAILY, First dose on Sat03/03/24 at 2100, Until Discontinued, Do not crush or break. May add contents of capsule to apple juice or apple sauce, but not chocolate. 0750 (Given - Provider: Ольга Kee RN) 0756 (Given - Provider: Shayla Omalley RN) 0947 (Given - Provider: Francie Liz, YADIEL) enoxaparin Sodium (LOVENOX) injection 30 mg 30 mg, SubCUTAneous, 2 TIMES DAILY, First dose on Sat03/04/24 at 1400, Until Discontinued, Indication of Use: Prophylaxis-DVT/PE, Administer by deep subCUTAneous injection with pt lying down. Alternate injection sites on abdominal wall. Do not rub site after injection. Check with provider prior to any invasive procedure. 1517 (Given - Provider: Ольга Kee RN)2101 (Given - Provider: Ольга Oliveros RN) 0756 (Given - Provider: Shayla Omalley RN)2137 (Given - Provider: Maria Isabel Harris RN) 0948 (Given - Provider: Francie Liz RN)2100 (Due) famotidine (PEPCID) tablet 20 mg (CANCELED) 20 mg, Oral, 2 TIMES DAILY, First dose on Sat03/03/24 at 2100, Until Discontinued 0750 (Given - Provider: Ольга Kee RN)2100 (Given - Provider: Ольга Oliveros RN) 0756 (Given - Provider: Shayla Omalley, YADIEL) famotidine (PEPCID) tablet 20 mg 20 mg, Oral, DAILY, First dose (after last modification) on Sat03/06/24 at 0900, Until Discontinued, Renal dose adjustment per P&T Guidelines 0946 (Given - Provider: Francie Liz, YADIEL) furosemide (LASIX) tablet 40 mg 40 mg, Oral, 2 TIMES DAILY, First dose on Sat03/03/24 at 2100, Until Discontinued 0750 (Given - Provider: Ольга Kee RN)0757 (Held by provider - Provider: Johny Ricks MD - Reason: Other)1730 (Automatically Held - Provider: Johny Ricks MD) 0800 (Automatically Held - Provider: Johny Ricks MD)0958 (Unheld by provider - Provider: Maria E Sweeney APRN - NUT SIFTER)1641 (Given - Provider: Tanya Higgins RN) 0947 (Given - Provider: Francie Liz RN)1730 (Due) hydroCHLOROthiazide (HYDRODIURIL) tablet 25 mg 25 mg, Oral, DAILY, First dose on Sat03/03/24 at 2100, Until Discontinued, Substituted for Indapamide (LOZOL). 0750 (Given - Provider: Ольга Kee RN) 0756 (Given - Provider: Shayla Omlaley RN) 1140 (Given - Provider: Francie Liz RN) levothyroxine (SYNTHROID) tablet 112 mcg 112 mcg, Oral, DAILY, First dose on Sat03/04/24 at 0700, Until Discontinued, Tube feeding (TF) interaction, obtain physician order to manage, recommend holding TF for 30 minutes before and after dose. 0638 (Given - Provider: Za Harris RN) 0624 (Given - Provider: Ольга Oliveros, YADIEL) 0950 (Given - Provider: Francie Liz, YADIEL) montelukast (SINGULAIR) tablet 10 mg 10 mg, Oral, NIGHTLY, First dose on Sat03/03/24 at 2100, Until Discontinued 2100 (Given - Provider: Ольга Oliveros RN) 2130 (Given - Provider: Maria Isabel Harris RN) 2100 (Due) polyethylene glycol (GLYCOLAX) packet 17 g 17 g, Oral, DAILY, First dose on Sat03/03/24 at 1630, Until Discontinued, Stir and dissolve one packet of powder (17 g) in any 4 to 8 ounces of beverage (cold, hot or room temperature) then drink 0854 (Not Given - Provider: Ольга Kee RN - Reason: Patient/family refused) 0756 (Given - Provider: Shayla Omalley RN) 0951 (Not Given - Provider: Francie Liz RN - Reason: Patient/family refused - Comment: normal bm this am) potassium bicarb-citric acid (EFFER-K) effervescent tablet 40 mEq (COMPLETED) 40 mEq, Oral, ONCE, 1 dose, On Sat03/06/24 at 0915, Do not chew or crush. Dissolve flavored tablets completely in 3 to 4 ounces of cold water; unflavored tablets may be dissolved in 3 to 4 ounces of cold juice. Patient to sip slowly over a 5 to 10 minute period. May further dilute if GI adverse effects occur. 0946 (Given - Provider: Francie Liz RN) potassium chloride (KLOR-CON M) extended release tablet 40 mEq (CANCELED) 40 mEq, Oral, 2 TIMES DAILY, First dose on Sat03/04/24 at 0900, Until Discontinued, Do not crush or break. Do not crush, chew, or suck on tablet. Tablet may also be broken in half and each half swallowed separately. 0847 (Given - Provider: Ольга Kee RN)2100 (Given - Provider: Ольга Oliveros, YADIEL) 0756 (Given - Provider: Shayla Omalley, YADIEL)2130 (Given - Provider: Maria Isabel Harris RN) rosuvastatin (CRESTOR) tablet 20 mg 20 mg, Oral, DAILY, First dose on Sat03/03/24 at 2100, Until Discontinued 0750 (Given - Provider: Ольаг Kee RN) 0756 (Given - Provider: Shayla Omalley RN) 0946 (Given - Provider: Francie Liz RN) sodium chloride flush 0.9 % injection 5-40 mL (CANCELED) 5-40 mL, IntraVENous, EVERY 12 HOURS SCHEDULED (2 times per day), First dose on Sat03/03/24 at 2100, Until Discontinued, For Line Patency: Peripheral IV = 5 mL; Midline or Central Line = 10 mL/lumen. If following IV push medication, administer flush at same rate as the IV push. Flush volume is determined by type of infusion therapy being given. For non-viscous solutions use: Peripheral IV = 5 mL Midline or Central Line = 10 mL/lumen For viscous solutions (i.e. blood components, parenteral nutrition, contrast media, or after obtaining blood sample) use: Peripheral IV = 10 mL Midline or Central Line = 20 mL/lumen 0719 (Not Given - Provider: Ольга Kee RN - Reason: IV Fluid Infusing)2100 (Given - Provider: Ольга Oliveros RN) 075 (Given - Provider: Shayla Omalley RN) ticagrelor (BRILINTA) tablet 90 mg 90 mg, Oral, 2 TIMES DAILY, First dose on Sat03/11/24 at 0900, Until Discontinued, ANTIPLATELET! PRN Medication Order 03/04/2024 03/05/2024 03/06/2024 benzocaine-menthol (CEPACOL SORE THROAT) lozenge 1 lozenge 1 lozenge, Oral, EVERY 2 HOURS PRN, Starting on Sat03/06/24 at 1101, Until Discontinued, Sore Throat 1140 (Given - Provid er: Francie Liz RN) ondansetron (ZOFRAN) injection 4 mg(Linked Group 1) 4 mg, IntraVENous, EVERY 6 HOURS PRN, Starting on Sat03/03/24 at 1612, Until Discontinued, Nausea, Vomiting, Administer if oral route cannot be used. ondansetron (ZOFRAN-ODT) disintegrating tablet 4 mg(Linked Group 1) 4 mg, Oral, EVERY 8 HOURS PRN, Starting on Sat03/03/24 at 1612, Until Discontinued, Nausea, Vomiting sodium chloride flush 0.9 % injection 10 mL 10 mL, IntraVENous, PRN, Starting on Sat03/03/24 at 1612, Until Discontinued, Line Care, After every IV line use 2129 (Given - Provider: Maria Isabel Harris RN) Linked Groups Order Group 1: ondansetron (ZOFRAN-ODT) disintegrating tablet 4 mgJump to med 4 mg, Oral, EVERY 8 HOURS PRN, Starting on 12/31/24 at 1612, Until Discontinued, Nausea, Vomiting Or ondansetron (ZOFRAN) injection 4 mgJump to med 4 mg, IntraVENous, EVERY 6 HOURS PRN, Starting on Sat03/03/24 at 1612, Until Discontinued, Nausea, Vomiting, Administer if oral route cannot be used. FOR RECORDS PERTAINING TO PATIENTS WHO ARE [...] BE BASED ON THE PRIMARY CLINICAL RECORDS. [employer] [facility]. provides no warranty or guarantee of the accuracy or completeness of information in this document.
--- NOTE | 2024-03-16 18:36 | ECG_ITS ---
The 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
--- NOTE | 2024-03-16 18:36 | ED.GENADUL1 ---
HPI HPI - General Adult General Chief complaint: Fall Stated complaint: syncope Time Seen by Provider: 03/16/24 18:31 Source: patient and medical record Mode of arrival: ambulance Limitations: physical limitation History of Present Illness HPI narrative: 78 year old female presents to the ED via EMS for a syncopal episode today. She was sitting on the commode at her nursing facility when the episode occurred. She was lowered to the floor by staff. She did not hit her head. She was responsive upon arrival to the floor, but did have another brief syncopal episode. Pt is alert and oriented at this time. Pt denies pain. Pt denies pain to her head, neck, back, chest, abdomen, extremities. Denies dizziness, vision changes. Denies SOB, N/V/D, urinary sx. Pt was evaluated 03/03/24 for a fall; she was diagnosed with a subarachnoid hemorrhage, a displaced nasal bone fracture, and mild rhabdomyolysis. Related Data Home Medications ?Medication ?Instructions ?Recorded ?Confirmed acetaminophen 500 mg capsule 500 mg PO Q6H PRN fever or pain 03/03/24 03/03/24 alendronate 70 mg tablet 70 mg PO DAILY 03/03/24 03/03/24 carvedilol 6.25 mg tablet 6.25 mg PO Q12H 03/03/24 03/03/24 duloxetine 60 mg capsule,delayed 60 mg PO DAILY 03/03/24 03/03/24 release folic acid 1 mg tablet 1 mg PO DAILY 03/03/24 03/03/24 indapamide 1.25 mg tablet 1.25 mg PO DAILY 03/03/24 03/03/24 letrozole 2.5 mg tablet 2.5 mg PO Q24H 03/03/24 03/03/24 levothyroxine 112 mcg tablet 112 mcg PO DAILY 03/03/24 03/03/24 montelukast 10 mg tablet 10 mg PO DAILY 03/03/24 03/03/24 potassium chloride 20 mEq 20 meq PO DAILY 03/03/24 03/03/24 tablet,extended release rosuvastatin 20 mg tablet 20 mg PO DAILY 03/03/24 03/03/24 ticagrelor 90 mg tablet (Brilinta) 90 mg PO Q12H 03/03/24 03/03/24 Allergies Allergy/AdvReac Type Severity Reaction Status Date / Time pregabalin (From Lyrica) Allergy Severe Confusion Verified 03/16/24 18:29 Opioid HPI Opioid Management Most Recent Opioid Data: Last Pain Scale 6 03/03/24 12:33 03/03/24 Review of Systems ROS Constitutional Denies: fever or chills Ears, nose, mouth, and throat Denies: throat pain or neck pain Cardiovascular Denies: chest pain Respiratory Denies: shortness of breath or cough Gastrointestinal Denies: abdominal pain, nausea, vomiting or diarrhea Genitourinary Denies: painful urination, urinary frequency or urinary urgency Musculoskeletal Denies: back pain or neck pain Integumentary/Breast Denies: rash Neurological Denies: headache, numbness in extremities, weakness in extremities or dizziness PFSH PFSH Social History Little interest or pleasure in doing things: not at all Feeling down, depressed, or hopeless: not at all Exam Constitutional Vital Signs, click to edit/add: Last Vital Signs Temp 97.7 F 03/16/24 18:26 Pulse 82 03/16/24 20:30 Resp 17 03/16/24 20:30 BP 101/52 03/16/24 20:01 Pulse Ox 97 03/16/24 20:30 O2 Del Method Nasal Cannula 03/16/24 18:26 O2 Flow Rate 2 03/16/24 18:26 Common normals: no apparent distress and oriented x3 General appearance: cooperative Eye Common normals: PERRL, EOMs intact bilaterally, conjunctivae normal and no scleral icterus Other: Healing bruising below both eyes. Neck & C-Spine Common normals: supple General: trachea midline Cervical spine: no cervical spine tenderness, no paracervical muscle tenderness and no paracervical muscle spasm Chest Common normals: palpation of chest normal Chest: symmetrical chest wall rise Respiratory Common normals: normal respiratory effort and clear to auscultation bilaterally Effort & inspection: able to speak in complete sentences and symmetric chest movement Cardio Common normals: regular rate and regular rhythm GI Common normals: Normal to inspection, nondistended, normoactive bowel sounds present, soft to palpation and non-tender Back & Pelvis Thoracic spine/upper back: no thoracic spinal tenderness, no paraspinal muscle tenderness and no paraspinal muscle spasm Lumbar spine/lower back: no lumbar spinal tenderness, no paraspinal muscle tenderness and no paraspinal muscle spasm Extremity Other: Bruising in various stages of healing below eyes and to right forearm/wrist. Neuro Common normals: oriented x3, CN's II-XII intact bilaterally and moves all extremities Sensorium/orientation: awake and alert Course Vital Signs Vital signs: Vital Signs Blood Pressure 102/58 03/16/24 18:25 Temperature 97.7 F 03/16/24 18:26 Pulse Rate 82 03/16/24 20:30 Respiratory Rate 17 03/16/24 20:30 Blood Pressure 101/52 03/16/24 20:01 Pulse Oximetry 97 03/16/24 20:30 Oxygen Delivery Method Nasal Cannula 03/16/24 18:26 Oxygen Delivery Flow Rate 2 03/16/24 18:26 Medical Decision Making MDM Narrative Medical decision making narrative: Imaging was negative for acute findings; see official report for additional information. Potassium was 1.9, chloride 79. Urinalysis showed infection; culture was pending. Findings were discussed with the patient and her family. The patient was started on IV potassium and IV antibiotics. I spoke with Gretel LENNON who accepted the patient for admission on behalf of Dr. Lowery. Medical Records Medical records reviewed: Yes I reviewed the patient's medical records Lab Data Lab results reviewed: Yes I reviewed the patient's lab results Labs: Lab Results 03/16/24 03/16/24 Range/Units 20:20 21:00 WBC 12.7 H (4.0-11.0) 10^3/uL RBC 4.94 (4.20-5.40) 10^6/uL Hgb 15.0 (12.0-16.0) g/dL Hct 42.5 (36.0-48.0) % MCV 86.0 (81.0-99.0) fL MCH 30.4 (26.7-34.0) pg MCHC 35.3 H (29.9-35.2) g/dL RDW 12.0 (11.0-15.0) % Plt Count 358 (150-450) 10^3/uL MPV 10.2 (9.5-13.5) fL Neut % (Auto) 77.2 H (43.0-75.0) % Lymph % (Auto) 9.7 L (20.5-60.0) % Love % (Auto) 11.8 (1.7-12.0) % Eos % (Auto) 0.6 L (0.9-7.0) % Baso % (Auto) 0.2 (0.2-2.0) % Neut # (Auto) 9.8 H (1.4-6.5) 10^3/uL Lymph # (Auto) 1.2 (1.2-3.8) 10^3/uL Love # (Auto) 1.5 H (0.3-0.8) 10^3/uL Eos # (Auto) 0.1 (0.0-0.7) 10^3/uL Baso # (Auto) 0.0 (0.0-0.1) 10^3/uL Abs Immat Gran (auto) 0.06 H (0.00-0.03) 10^3/uL Imm/Tot Granulo (auto) 0.5 (0.0-0.5) % Sodium 126 L (136-145) mmol/L Potassium 1.9 L* (3.5-5.1) mmol/L Chloride 79 L* (98-107) mmol/L Carbon Dioxide 44.7 H (21.0-32.0) mmol/L Anion Gap 4.2 BUN 25.0 H (7.0-18.0) mg/dL Creatinine 1.10 H (0.55-1.02) mg/dL Est GFR ( Amer) 58 L (>=60 mL/min/1.73m^2) Est GFR (Non-Af Amer) 48 L (>=60 mL/min/1.73m^2) BUN/Creatinine Ratio 22.7 Glucose 129 H (74-106) mg/dL Calcium 8.2 L (8.5-10.1) mg/dL Total Bilirubin 1.0 (0.2-1.0) mg/dL AST 32 (15-37) U/L ALT 28 (14-59) U/L Alkaline Phosphatase 106 (46-116) U/L Total Protein 6.6 (6.4-8.2) g/dL Albumin 3.2 L (3.4-5.0) g/dL Globulin 3.4 g/dL Albumin/Globulin Ratio 0.9 Urine Color Lt. yellow (YELLOW) Urine Clarity Clear (CLEAR) Urine pH 6.0 (5.0-9.0) Ur Specific [place] 1.015 (1.005-1.025) Urine Protein Trace (NEG/TRACE) mg/dL Urine Glucose (UA) Negative (NEGATIVE) mg/dL Urine Ketones Negative (NEGATIVE) mg/dL Urine Occult Blood Large A (NEGATIVE) Urine Nitrite Negative (NEGATIVE) Urine Bilirubin Negative (NEGATIVE) Urine Urobilinogen 0.2 (0.2-1.0) EU/dL Ur Leukocyte Esterase Moderate A (NEGATIVE) Urine RBC 0-2 (0-2) #/HPF Urine WBC 10-20 A (NONE SEEN) #/HPF Ur Squamous Epith Cells Moderate A (NONE/RARE) #/LPF Urine Crystals None seen (None Seen) #/HPF Urine Bacteria Moderate A (NONE SEEN) #/HPF Urine Casts None seen (NONE SEEN) #/LPF Urine Mucus None seen (NONE SEEN) Ur Culture Indicated? Yes Imaging Data Chest x-ray: Attestation: I have reviewed the pertinent imaging results. Radiologist's impression: ITS Impressions Chest X-Ray 03/16/24 18:35 IMPRESSION: 1. Underexpanded lungs. No acute cardiopulmonary process. Electronically authenticated by: PEPPER WOOD Date: 03/16/2024 20:[address] 03/16/24 18:35 IMPRESSION: 1. No intracranial hemorrhage or appreciable acute abnormality. 2. Age consistent atrophy and chronic small vessel ischemic changes. 3. No fracture of the calvarium or scalp hematoma. 4. Bilateral maxillary sinusitis. Very limited views on today's study. Electronically authenticated by: PEPPER WOOD Date: 03/16/2024 20:46 ECG Data Attestation: ?I have reviewed the pertinent ECG results. (EKG was reviewed by the attending physician. It showed sinus rhythm at a rate of 72. No STEMI.) Interpretation: Measurements Intervals [place] Rate: 72 P: 66 [place]: 156 QRS: -40 QRSD: 110 T: 95 QT: 492 QTc: 515 Interpretive Statements 1100 Sinus rhythm 1974 with frequent ectopic premature complexes [address] depression [address] & Twave abnormality 7200 Abnormal left axis deviation 8304 Long QTc interval 9150 abnormal ECG No previous ECG available for comparison Critical Care Time Critical Care Time Total Critical Care Time: 35 Attestation: Due to the high probability of sudden and clinically significant deterioration in the patient's condition she required the highest level of my preparedness to intervene urgently I provided critical care time including documentation time, medication orders and management, reevaluation, vital sign assessment, ordering and reviewing of lab tests, ordering and reviewing of x-ray studies, and admission orders. Discharge Plan Discharge Chief Complaint: Fall Clinical Impression: Syncope, Hypokalemia, Hypochloremia, Acute UTI Patient Disposition: Admitted As Inpatient Time of Disposition Decision: 21:31 Condition: Fair
[2024-03-16 20:39] LABS: Basophils Percent Auto 0.2 % (0.2-2.0); Eosinophils Absolute Auto 0.1 10^3/uL (0.0-0.7); Eosinophils Percent Auto 0.6 % (0.9-7.0); Hematocrit 42.5 % (36.0-48.0); Immature Granulocytes Abs Auto 0.06 10^3/uL (0.00-0.03); Immature Granulocytes Pct Auto 0.5 % (0.0-0.5); Lymphocytes Absolute Auto 1.2 10^3/uL (1.2-3.8); Lymphocytes Percent Auto 9.7 % (20.5-60.0); Mean Corpuscular HGB Conc 35.3 g/dL (29.9-35.2); Mean Corpuscular Hemoglobin 30.4 pg (26.7-34.0); Mean Platelet Volume 10.2 fL (9.5-13.5); Monocytes Absolute Auto 1.5 10^3/uL (0.3-0.8); Monocytes Percent Auto 11.8 % (1.7-12.0); Neutrophils Absolute Auto 9.8 10^3/uL (1.4-6.5); Neutrophils Percent Auto 77.2 % (43.0-75.0); Platelet Count 358 10^3/uL (150-450); Red Blood Count 4.94 10^6/uL (4.20-5.40); White Blood Count 12.7 10^3/uL (4.0-11.0)
[2024-03-16 21:20] LABS: Bilirubin Urine NEGATIVE (NEGATIVE); Blood Urine LARGE (NEGATIVE); Clarity Urine CLEAR (CLEAR); Color Urine LT. YELLOW (YELLOW); Glucose Urine UA NEGATIVE (NEGATIVE); Ketones Urine NEGATIVE (NEGATIVE); Leukocyte Esterase Urine MODERATE (NEGATIVE); Nitrite Urine NEGATIVE (NEGATIVE); Protein Urine TRACE mg/dL (NEG/TRACE); Specific Gravity Urine 1.015 (1.005-1.025); Urobilinogen Urine 0.2 EU/dL (0.2-1.0)
[2024-03-16 21:21] LABS: Alanine Aminotransferase 28 U/L (14-59); Albumin Globulin Ratio 0.9; Albumin Level 3.2 g/dL (3.4-5.0); Alkaline Phosphatase 106 U/L (46-116); Anion Gap 4.2; Aspartate Amino Transferase 32 U/L (15-37); BUN Creatinine Ratio 22.7; Calcium 8.2 mg/dL (8.5-10.1); Carbon Dioxide 44.7 mmol/L (21.0-32.0); Estimated GFR (African America 58 (>=60 mL/min/1.73m^2); Estimated GFR (Non-African Ame 48 (>=60 mL/min/1.73m^2); Globulin 3.4 g/dL; Glucose 129 mg/dL (74-106); Sodium 126 mmol/L (136-145); Total Protein 6.6 g/dL (6.4-8.2)
[2024-03-16 21:22] LABS: Chloride 79 mmol/L (98-107); Potassium 1.9 mmol/L (3.5-5.1)
[2024-03-16 21:31] LABS: Bacteria Urine MODERATE #/HPF (NONE SEEN); Cast Seen? NONE SEEN #/LPF (NONE SEEN); Crystals Seen? None Seen #/HPF (None Seen); Mucus Urine NONE SEEN (NONE SEEN); RBC Urine 0-2 #/HPF (0-2); Squamous Epithelial Cell Urine MODERATE #/LPF (NONE/RARE); Urine Culture Indicated YES
[2024-03-16] MEDS: CEFTRIAXONE 1,000 MG in 0.9 % SODIUM CHLORIDE 50 ML 100 MG IV (22:07)
--- OUTSIDE RECORDS SUMMARY | 2024-03-16 22:56 | XMS_ITS | CCD ---
Author Organization [facility] [employer] Care Team Providers Care Computer Aided Design Technician Name Role Phone Jani Aguilera Unavailable Nicole [...] Sam, MD Nicole Napier Primary Care Provider [phone] JOHANNA Fan Attending Provider DO Tamiko Zhou Referring Provider Nicole Vargas MD Primary Care Provider Mary Dasilva RN Unavailable Unavailable Provider, Ordering Unavailable MD Nicole Vargas Primary Care Provider JOHANNA Fan Attending Provider DO Tamiko Zhou Referring Provider MD Nani Calloway Attending Provider Mast, Hilario Unavailable Nicole Vargas MD Primary Care Provider MD Nicole Vargas Primary Care Provider MD Nani Calloway Attending Provider ANDRÉS Ellis Attending Provider Mast DO, Hilario E Primary Care Provider [phone] Nicole Vargas MD Primary Care Provider SAM[facility] Unavailable KARAMLOU, ROSA Referring Unavailable SAM, [facility] Primary [facility] Unavailable VITORAMLOU, ROSA Referring Unavailable RUTH ANN GUTIERRES Attending Unavailable SAM, NICOLE [facility] Primary Care Unavailable VITORAMLOU, ROSA Referring Unavailable RUTH ANN GUTIERRES Attending Unavailable SAM, [facility] Primary Care Unavailable VITORAMLOU, ROSA Referring Unavailable MD Nicole Vargas Primary Care Provider [phone] MD Nani Calloway Attending Provider Mast, DO Hilario Primary Care Provider Mast, DO Hilario Attending Provider Mast, DO Hilario Primary Care Provider [phone] Mast, DO Hilario Attending Provider [phone] BERNADINE DIAZ Attending Unavailable PARUL PERRY Attending [...] Cardoza Attending Unavailable Nani Calloway Admitting Unavailable Cache, Rugen M Primary Care Unavailable ALFREDO STAPLES [...] (1 source) Adhesive Tape Substance Allergy 4 [facility] NSAIDs (2 sources) Ibuprofen Drug Allergy 3 Anaphylaxis [facility] pregabalin (2 sources) pregabalin Drug Allergy 3 Confusion [facility] Work Phone: Sulfonamides (antibiotic) (1 source) Sulfonamides (Antibiotic) Drug Allergy 3 GI Upset [facility] Work Phone: (7 sources) Ibuprofen Drug Allergy Unknown [employer] Other (20 sources) pregabalin; 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: [PREGABALIN] Drug Allergy 1 Mental Status Change, Confusion, Other (See Comments) [facility] (16 sources) Ibuprofen; 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: [IBUPROFEN] Drug Allergy 7 Intolerance, Other [facility] (5 sources) rofecoxib; 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: [ROFECOXIB] Drug Allergy 7 Swelling [facility] (7 sources) Sulfonamides (Antibiotic); 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: [SULFA (SULFONAMIDE ANTIBIOTICS)] Drug Allergy 7 Vomiting, GI Upset [facility] (1 source) Adhesive agent Drug allergy (disorder) 7 [facility] (1 source) Ibuprofen Drug Allergy 7 [facility] (1 source) pregabalin Drug Allergy 1 [facility] (1 source) rofecoxib Drug Allergy 6 [facility] (1 source) Trimethoprim Drug Allergy 1 [facility] (4 sources) Adhesive Tape Drug allergy rash [employer] Other (8 sources) Adhesive Tape; 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: [adhesive tape] Allergy to substance 3 [facility] (4 sources) Ramipril; 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: [ramipril] Drug Allergy 4 [facility] (1 source) Ibuprofen Drug Allergy 4 [facility] (1 source) pregabalin Drug Allergy 4 [facility] Medications Current Medications Medication Drug Class(es) Dates Sig (Normalized) Sig (Original) [id number] 200 actuat albuterol 0.09 mg/actuat metered dose [...] 0. 4 MG as directed Sublingual Active [place] 3-6-9 - (3 sources) [place] 3-6-9 - as directed Orally Active omega-3 acid ethyl esters (jail) 1000 mg oral capsule (4 sources) omega-3 acid eth yl esters (Lovaza) 1 gram capsule Take 1 capsule (1 g) by mouth once daily. Active [place]-3 Fatty Acids (9 sources) Start: 01-15-2023 take 1000 mg by mouth twice daily [place]-3 Fatty Acids Active 1000 MG PO Twice daily January 15, 2023 1:00am Start: 01-15-2023 take 1000 mg by mout h twice daily [place]-3 Fatty Acids Active 1000 MG PO Twice daily January 15, 2023 12:00am ondansetron (ZOFRAN-ODT) disintegrating tablet 4 mg (1 source) Start: 03-03-2024 ondansetron (ZOFRAN-ODT) disintegrating tablet 4 mg polyethylene glycol [id number] [id number] mg powder for oral solution (1 source) [...] 09, 2023 1:09pm take 2 tablets by [facility] every eight hours Acetaminophen ER 650 MG [...] Start: 05-31-2022 take 1 capsule by [facility] every eight hours Tessalon Perles 100 [...] chocolate. 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 4 mg/dL [facility] Chloride [Moles/Vol] 93 mmol/L Low 98 - 10 7 mmol/L [facility] CO2 [Moles/Vol] 30 mmol/L 20 - 31 mmol/L [facility] Creatinine [Mass/Vol] 1.1 mg/dL High 0.6 - 0.9 mg/dL [facility] Alleantia Est, Glom Filt Rate 52 Low - PINF [facility] Comment on above: These results are not [...] 120 mg/dL High 74 - 99 mg/dL [facility] Interpretation and review of laboratory results Abnormal [facility] Potassium [Moles/Vol] 3.7 mmol/L 3.7 - 5.3 mmol/L [facility] Sodium [Moles/Vol] 135 mmol/L Low 136 - 145 mmol/L [facility] Urea nitrogen [Mass/Vol] 12 mg/dL 8 - 23 mg/dL [facility] Basic Metabolic Profon 03-06 Anion gap [Moles/Vol] 12 mmol/L Normal 9-16 [facility] Comment on above: Performed By: #### B MP, CDP #### [employer] [facility] [place] [address] Cigar Packing Examiner: Kristian Garcia MD Calcium [Mass/Vol] 9.4 mg/dL Normal 8.6-10.4 [facility] Comment on above: Performed By: #### B MISA, CDP #### [address] [address] Cigar Packing Examiner: Kristian Garcia MD Chloride [Moles/Vol] 93 mmol/L Low 98-107 [facility] Comment on above: Performed By: #### B MISA, CDP #### [facility] [address] [place] [address] Cigar Packing Examiner: Kristian Garcia MD CO2 [Moles/Vol] 30 mmol/L Normal 20-31 [facility] Comment on above: Performed By: #### B MISA, CDP #### [facility] [address] [place] [phone] Cigar Packing Examiner: Kristian Garcia MD Creatinine [Mass/Vol] 1.1 mg/dL High 0.6-0.9 [facility] Comment on above: Performed By: #### B MISA, CDP #### [address] [address] Cigar Packing Examiner: Kristian Garcia MD GFR/1.73 sq M.predicted among non-blacks MDRD (S/P/Bld) [Vol rate/Area] 52 mL/min/{1.73_m2} Low >60 [facility] Comment on above: Result Comment: These [...] Performed By: #### B MISA, CDP #### [facility] [address] [place] [address] Cigar Packing Examiner: Kristian Garcia MD Glucose [Mass/Vol] 120 mg/dL High 74-99 [facility] Comment on above: Performed By: #### B MISA, CDP #### [facility] [address] [place] [address] Cigar Packing Examiner: Kristian Garcia MD Potassium [Moles/Vol] 3.7 mmol/L Normal 3.7-5.3 [facility] Comment on above: Performed By: #### B MISA, CDP #### [facility] [address] [place] [address] Cigar Packing Examiner: Kristian Garcia MD Sodium [Moles/Vol] 135 mmol/L Low 136-145 [facility] Comment on above: Performed By: #### B MISA, CDP #### [facility] [address] [place] [address] Cigar Packing Examiner: Kristian Garcia MD Urea nitrogen [Mass/Vol] 12 mg/dL Normal 8-23 [facility] Comment on above: Performed By: #### B MISA, CDP #### [facility] [address] [place] [address] Cigar Packing Examiner: Kristian Garcia MD CBC with Auto Differentialon 03-06-2024 Basophils (Bld) [#/Vol] 0.03 10*3/uL [facility] Basophils/100 WBC (Bld) 1 % 0 - 2 % [facility] Eosinophils (Bld) [#/Vol] 0.08 10*3/uL [facility] Eosinophils/100 WBC (Bld) 1 % 1 - 4 % [facility] Erythrocyte distribution width (RBC) [Ratio] 12.6 % 11.8 - 14.4 % [facility] Hematocrit (Bld) [Volume fraction] 43.7 % 36.3 - 47.1 % [facility] Hemoglobin (Bld) [Mass/Vol] 14.2 g/dL 11.9 - 15.1 g/dL [facility] Immature granulocytes (Bld) [#/Vol] [facility] Immature granulocytes/100 WBC (Bld) 0 % 0 [facility] Interpretation and review of laboratory results Abnormal [facility] Lymphocytes/100 WBC (Bld) 20 % Low 24 - 43 % [facility] Lymphocytes/100 WBC (Bld) 1.31 % [facility] MCH (RBC) [Entitic mass] 29.9 pg 25.2 - 33.5 pg [facility] MCHC (RBC) [Mass/Vol] 32.5 g/dL 28.4 - 34.8 g/dL [facility] MCV (RBC) [Entitic vol] 92.0 fL 82.6 - 102.9 fL [facility] Monocytes/100 WBC (Bld) 10 % 3 - 12 % [facility] Monocytes/100 WBC (Bld) 0.69 % [facility] Neutrophils/100 WBC (Bld) 68 % High 36 - 65 % [facility] Nucleated RBC/100 WBC (Bld) [Ratio] 0.0 % 0.0 per 100 WBC [facility] Platelet mean volume (Bld) [Entitic vol] 10.7 fL 8.1 - 13.5 fL [facility] Platelets (Bld) [#/Vol] 200 10*3/uL [facility] RBC (Bld) [#/Vol] 4.75 10*6/uL 3.95 - 5.11 m/uL [facility] Segmented neutrophils/100 WBC (Bld) 4.49 % [facility] WBC other (Bld) [#/Vol] 6.6 [facility] CBC with Diffon 03-06-2024 Abs. Basophil 0.03 k/uL Normal 0.00-0.20 [facility] Comment on above: Performed By: #### B MP, CDP #### [employer] [address] [place], [place] [phone] Cigar Packing Examiner: Kristian Garcia MD Abs.Imm.Granulocyte <0.03 Normal 0.00-0.30 [facility] Comment on above: Performed By: #### B MP, CDP #### [address] [address] Cigar Packing Examiner: Kristian Garcia MD Abs.Neutrophil (Seg) 4.49 k/uL Normal 1.50-8.10 [facility] Comment on above: Performed By: #### B MP, CDP #### [address] [address] Cigar Packing Examiner: Kristian Garcia MD Basophils/100 WBC (Bld) 1 % Normal 0-2 [facility] Comment on above: Performed By: #### B MP, CDP #### [address] [address] Cigar Packing Examiner: Kristian Garcia MD Eosinophils (Bld) [#/Vol] 0.08 10*3/uL Normal 0.00-0.44 [facility] Comment on above: Performed By: #### B MP, CDP #### [address] [address] Cigar Packing Examiner: Kristian Garcia MD Eosinophils/100 WBC (Bld) 1 % Normal 1-4 [facility] Comment on above: Performed By: #### B MP, CDP #### [address] [address] Cigar Packing Examiner: Kristian Garcia MD Erythrocyte distribution width (RBC) [Ratio] 12.6 % Normal 11.8-14.4 [facility] Comment on above: Performed By: #### B MP, CDP #### [place] [address] Cigar Packing Examiner: Kristian Garcia MD Hematocrit (Bld) [Volume fraction] 43.7 % Normal 36.3-47.1 [facility] Comment on above: Performed By: #### B MP, CDP #### [address] [address] Cigar Packing Examiner: Kristian Garcia MD Hemoglobin (Bld) [Mass/Vol] 14.2 g/dL Normal 11.9-15.1 [facility] Comment on above: Performed By: #### B MP, CDP #### [address] [address] Cigar Packing Examiner: Kristian Garcia MD Immature granulocytes/100 WBC (Bld) 0 % Normal 0 [facility] Comment on above: Performed By: #### B MP, CDP #### [address] [address] Cigar Packing Examiner: Kristian Garcia MD Lymphocytes (Bld) [#/Vol] 1.31 10*3/uL Normal 1.10-3.70 [facility] Comment on above: Performed By: #### B MP, CDP #### [address] [address] Cigar Packing Examiner: Kristian Garcia MD Lymphocytes/100 WBC (Bld) 20 % Low 24-43 [facility] Comment on above: Performed By: #### B MP, CDP #### [address] [address] Cigar Packing Examiner: Kristian Garcia MD MCH (RBC) [Entitic mass] 29.9 pg Normal 25.2-33.5 [facility] Comment on above: Performed By: #### B MP, CDP #### [address] [address] Cigar Packing Examiner: Kristian Garcia MD MCHC (RBC) [Mass/Vol] 32.5 g/dL Normal 28.4-34.8 [facility] Comment on above: Performed By: #### B MP, CDP #### [address] [address] Cigar Packing Examiner: Kristian Garcia MD MCV (RBC) [Entitic vol] 92.0 fL Normal 82.6-102.9 [facility] Comment on above: Performed By: #### B MP, CDP #### [address] [address] Cigar Packing Examiner: Kristian Garcia MD Monocytes (Bld) [#/Vol] 0.69 10*3/uL Normal 0.10-1.20 [facility] Comment on above: Performed By: #### B MP, CDP #### [address] [address] Cigar Packing Examiner: Kristian Garcia MD Monocytes/100 WBC (Bld) 10 % Normal 3-12 [facility] Comment on above: Performed By: #### B MP, CDP #### [place] [address] Cigar Packing Examiner: Kristian Garcia MD Neutrophil (Seg) 68 % High 36-65 [facility] Comment on above: Performed By: #### B MP, CDP #### [address] [address] Cigar Packing Examiner: Kristain Garcia MD NRBC Automated 0.0 per 100 WBC Normal 0.0 [facility] Comment on above: Performed By: #### B MP, CDP #### [address] [address] Cigar Packing Examiner: Kristian Garcia MD Platelet mean volume (Bld) [Entitic vol] 10.7 fL Normal 8.1-13.5 [facility] Comment on above: Performed By: #### B MP, CDP #### [address] [address] Cigar Packing Examiner: Kristian Garcia MD Platelets (Bld) [#/Vol] 200 10*3/uL Normal 138-453 [facility] Comment on above: Performed By: #### B MP, CDP #### [facility] [address] [place] [address] Cigar Packing Examiner: Kristian Garcia MD RBC (Bld) [#/Vol] 4.75 10*6/uL Normal 3.95-5.11 [facility] Comment on above: Performed By: #### B MP, CDP #### [facility] [address] [place] [address] Cigar Packing Examiner: Kristian Garcia MD WBC (Bld) [#/Vol] 6.6 10*3/uL Normal 3.5-11.3 [facility] Comment on above: Performed By: #### B MISA, CDP #### [facility] [address] [place] [address] Cigar Packing Examiner: Kristian Garcia MD Basic Metabolic Panelon 0 Anion gap [Moles/Vol] 13 mmol/L 9 - 16 mmol/L [employer] Calcium [Mass/Vol] 8.9 mg/dL 8.6 - 10. 4 mg/dL [employer] [facility] [employer] Chloride [Moles/Vol] 93 mmol/L Low 98 - 10 7 mmol/L [employer] [facility] [employer] CO2 [Moles/Vol] 26 mmol/L 20 - 31 mmol/L [facility] Creatinine [Mass/Vol] 1.1 mg/dL High 0.6 - 0.9 mg/dL [employer] Est, Glom Filt Rate 52 Low - PINF [facility] [employer] Comment on above: These results are not [...] 104 mg/dL High 74 - 99 mg/dL [employer] Interpretation and review of laboratory results Abnormal [facility] [employer] Potassium [Moles/Vol] 3.3 mmol/L Low 3.7 - 5.3 mmol/L [facility] Comment on above: Specimen hemolysis h as exceeded the interference as defined by Bal. Value may be falsely increased. Suggest recollection if clinically indicated. Sodium [Moles/Vol] 132 mmol/L Low 136 - 145 mmol/L [facility] Urea nitrogen [Mass/Vol] 14 mg/dL 8 - 23 mg/dL [facility] Basic Metabolic Profon 03-05 Anion gap [Moles/Vol] 13 mmol/L Normal 9-16 [facility] Comment on above: Performed By: #### B MP, CDP, TSHX ####[facility] MobileNcqeayjfrckp[address] [place] [address] Lab Director: Kristian Garcia MD Performed By: #### B MP, CDP, TSHX #### [facility] [address] [place] [address] Cigar Packing Examiner: Kristian Garcia MD Calcium [Mass/Vol] 8.9 mg/dL Normal 8.6-10.4 [facility] Comment on above: Performed By: #### B MP, CDP, TSHX ####[facility] [address] [place] [address] Lab Director: Kristian Garcia MD Performed By: #### B MP, CDP, TSHX #### [facility] [address] [place] [address] Cigar Packing Examiner: Kristian Garcia MD Chloride [Moles/Vol] 93 mmol/L Low 98-107 [facility] Comment on above: Performed By: #### B MP, CDP, TSHX ####[facility] E[address] [place] [address] Lab Director: Kristian Garcia MD Performed By: #### B MP, CDP, TSHX #### [facility] [place] [address] Cigar Packing Examiner: Kristian Garcia MD CO2 [Moles/Vol] 26 mmol/L Normal 20-31 [facility] Comment on above: Performed By: #### B TOBIAS BYNUM, TSHX ####[facility] [address] [place] [address] Lab Director: Kristian Garcia MD Performed By: #### B TOBIAS BYNUM, TSHX #### [facility] [address] [place] [address] Cigar Packing Examiner: Kristian Garcia MD Creatinine [Mass/Vol] 1.1 mg/dL High 0.6-0.9 [facility] Comment on above: Performed By: #### B TOBIAS BYNUM, TSHX ####[facility] [address] [place] [address] Lab Director: Kristian Garcia MD Performed By: #### B TOBIAS BYNUM, TSHX #### [address] [address] Cigar Packing Examiner: Kristian Garcia MD GFR/1.73 sq M.predicted among non-blacks MDRD (S/P/Bld) [Vol rate/Area] 52 mL/min/{1.73_m2} Low >60 [facility] Comment on above: Result Comment: These [...] Performed By: #### B TOBIAS BYNUM, TSHX ####[facility] [address] [place] [address] Lab Director: Kristian Garcia MD Performed By: #### B TOBIAS BYNUM, TSHX #### [place] [address] [place] [address] Cigar Packing Examiner: Kristian Garcia MD Glucose [Mass/Vol] 104 mg/dL High 74-99 [facility] Comment on above: Performed By: #### B MP, CDP, TSHX ####[facility] [address] [place], [place] [phone] Director: Kristian Garcia MD Performed By: #### B MP, CDP, TSHX #### [facility] [place] [address] Cigar Packing Examiner: Kristian Garcia MD Potassium [Moles/Vol] 3.3 mmol/L Low 3.7-5.3 [facility] Comment on above: Result Comment: Spec imen hemolysis has exceeded the interference as defined by Bal. Value may be falsely increased. Suggest recollection if clinically indicated. Performed By: #### B MP, CDP, TSHX ####[facility] [address] [place] [address] [phone] Director: Kristian Garcia MD Performed By: #### B MP, CDP, TSHX #### [facility] [address] [place] [address] Cigar Packing Examiner: Kristian Garcia MD Sodium [Moles/Vol] 132 mmol/L Low 136-145 [facility] Comment on above: Performed By: #### B MP, CDP, TSHX ####[facility] [address] [place] [address] [phone] Director: Kristian Garcia MD Performed By: #### B MP, CDP, TSHX #### [facility] [address] [place] [address] Cigar Packing Examiner: Kristian Garcia MD Urea nitrogen [Mass/Vol] 14 mg/dL Normal 8-23 [facility] Comment on above: Performed By: #### B MP, CDP, TSHX ####[facility] [address] [place] [address] [phone] Director: Kristian Garcia MD Performed By: #### B MP, CDP, TSHX #### [facility] [address] [place] [address] Cigar Packing Examiner: Kristian Garcia MD CBC with Auto Differentialon [...] vol] 11.3 fL 8.1 - 13.5 fL [facility] Platelets (Bld) [#/Vol] 167 10*3/uL [facility] RBC (Bld) [#/Vol] 4.21 10*6/uL 3.95 - 5.11 m/uL [facility] Segmented neutrophils/100 WBC (Bld) 3.57 % [facility] WBC other (Bld) [#/Vol] 6.6 [facility] CBC with Diffon 03-05-2024 Abs. Basophil 0.03 k/uL Normal 0.00-0.20 [facility] Comment on above: Performed By: #### B MP, CDP, TSHX ####[place], [place] [address])[phone] Director: Kristian Garcia MD Performed By: #### B MP, CDP, TSHX #### [facility] [address] [place] [address] Cigar Packing Examiner: Kristian Garcia MD Abs.Imm.Granulocyte <0.03 Normal 0.00-0.30 [facility] Comment on above: Performed By: #### B MP, CDP, TSHX ####[address] [address] Lab Director: Kristian Garcia MD Performed By: #### B MP, CDP, TSHX #### [facility] [address] [place] [address] Cigar Packing Examiner: Kristian Garcia MD Abs.Neutrophil (Seg) 3.57 k/uL Normal 1.50-8.10 [facility] Comment on above: Performed By: #### B MP, CDP, TSHX ####[facility] [address] [place], [place] [address])[phone] Director: Kristian Garcia MD Performed By: #### B MP, CDP, TSHX #### [facility] [address] [place] [address] Cigar Packing Examiner: Kristian Garcia MD Basophils/100 WBC (Bld) 1 % Normal 0-2 [facility] Comment on above: Performed By: #### B MP, CDP, TSHX ####[facility] [address] [place] [address] [phone] Director: Kristian Garcia MD Performed By: #### B MP, CDP, TSHX #### [facility] [address] [place] [address] Cigar Packing Examiner: Kristian Garcia MD Eosinophils (Bld) [#/Vol] 0.17 10*3/uL Normal 0.00-0.44 [facility] Comment on above: Performed By: #### B MP, CDP, TSHX ####[address] [phone] Director: Kristian Garcia MD Performed By: #### B MP, CDP, TSHX #### [address] [address] Cigar Packing Examiner: Kristian Garcia MD Eosinophils/100 WBC (Bld) 3 % Normal 1-4 [facility] Comment on above: Performed By: #### B MP, CDP, TSHX ####[address] [phone] Director: Kristian Garcia MD Performed By: #### B MP, CDP, TSHX #### [facility] [address] [place] [phone] Cigar Packing Examiner: Kristian Garcia MD Erythrocyte distribution width (RBC) [Ratio] 12.8 % Normal 11.8-14.4 [facility] Comment on above: Performed By: #### B MP, CDP, TSHX ####[facility] [address] [place] [address] Lab Director: Kristian Garcia MD Performed By: #### B MP, CDP, TSHX #### [facility] [place] [address] Cigar Packing Examiner: Kristian Garcia MD Hematocrit (Bld) [Volume fraction] 39.8 % Normal 36.3-47.1 [facility] Comment on above: Performed By: #### B MP, CDP, TSHX ####[facility] [address] [place] [address] Lab Director: Kristian Garcia MD Performed By: #### B MP, CDP, TSHX #### [facility] [address] [place] [address] Cigar Packing Examiner: Kristian Garcia MD Hemoglobin (Bld) [Mass/Vol] 12.7 g/dL Normal 11.9-15.1 [facility] Comment on above: Performed By: #### B MP, CDP, TSHX ####[facility] [address] [place] [address] 32717 Lab Director: Kristian Garcia MD Performed By: #### B MP, CDP, TSHX #### [address] [address] Cigar Packing Examiner: Kristian Garcia MD Immature granulocytes/100 WBC (Bld) 0 % Normal 0 [facility] Comment on above: Performed By: #### B MP, CDP, TSHX ####[facility] [address] [place] [address] Lab Director: Kristian Garcia MD Performed By: #### B MP, CDP, TSHX #### [facility] [address] [place] [address] Cigar Packing Examiner: Kristian Garcia MD Lymphocytes (Bld) [#/Vol] 1.99 10*3/uL Normal 1.10-3.70 [facility] Comment on above: Performed By: #### B MP, CDP, TSHX ####[facility] [address] [place] [address] 27882 Lab Director: Kristian Garcia MD Performed By: #### B MP, CDP, TSHX #### [facility] [address] [place] [address] Cigar Packing Examiner: Kristian Garcia MD Lymphocytes/100 WBC (Bld) 30 % Normal 24-43 [facility] Comment on above: Performed By: #### B MP, CDP, TSHX ####[facility] [address] [place] [address] Lab Director: Kristian Garcia MD Performed By: #### B MP, CDP, TSHX #### [place] [address] Cigar Packing Examiner: Kristian Garcia MD MCH (RBC) [Entitic mass] 30.2 pg Normal 25.2-33.5 [facility] Comment on above: Performed By: #### B MP, CDP, TSHX ####[facility] [address] [place] [address] Lab Director: Kristian Garcia MD Performed By: #### B MP, CDP, TSHX #### [facility] [address] [place] [address] Cigar Packing Examiner: Kristian Garcia MD MCHC (RBC) [Mass/Vol] 31.9 g/dL Normal 28.4-34.8 [facility] Comment on above: Performed By: #### B MP, CDP, TSHX ####[facility] [address] [place] [address] 43855 Lab Director: Kristian Garcia MD Performed By: #### B MP, CDP, TSHX #### [facility] [address] [place] [address] Cigar Packing Examiner: Kristian Garcia MD MCV (RBC) [Entitic vol] 94.5 fL Normal 82.6-102.9 [facility] Comment on above: Performed By: #### B MP, CDP, TSHX ####[facility] [address] [place] [address] Lab Director: Kristian Garcia MD Performed By: #### B MP, CDP, TSHX #### [facility] [place] [address] Cigar Packing Examiner: Kristian Garcia MD Monocytes (Bld) [#/Vol] 0.78 10*3/uL Normal 0.10-1.20 [facility] Comment on above: Performed By: #### B MP, CDP, TSHX ####[facility] [address] [place] [address] [phone] Director: Kristian Garcia MD Performed By: #### B MP, CDP, TSHX #### [address] [address] Cigar Packing Examiner: Kristian Garcia MD Monocytes/100 WBC (Bld) 12 % Normal 3-12 [facility] Comment on above: Performed By: #### B MP, CDP, TSHX ####[facility] [address] [place] [address] [phone] Director: Kristian Garcia MD Performed By: #### B MP, CDP, TSHX #### [address] [address] Cigar Packing Examiner: Kristian Garcia MD Neutrophil (Seg) 54 % Normal 36-65 [facility] Comment on above: Performed By: #### B MP, CDP, TSHX ####[facility] [address] [place] [address] [phone] Director: Kristian Garcia MD Performed By: #### B MP, CDP, TSHX #### [facility] [address] [place] [address] Cigar Packing Examiner: Kristian Garcia MD NRBC Automated 0.0 per 100 WBC Normal 0.0 [facility] Comment on above: Performed By: #### B MP, CDP, TSHX ####[facility] [address] [place] [address] Lab Director: Kristian Garcia MD Performed By: #### B MP, CDP, TSHX #### [facility] [address] [place] [address] Cig[employer] Packing Examiner: Kristian Garcia MD Platelet mean volume (Bld) [Entitic vol] 11.3 fL Normal 8.1-13.5 [facility] Comment on above: Performed By: #### B MP, CDP, TSHX ####[facility] [address] [place] [address] Lab Director: Kristian Garcia MD Performed By: #### B MP, CDP, TSHX #### [address] [address] Cigar Packing Examiner: Kristian Garcia MD Platelets (Bld) [#/Vol] 167 10*3/uL Normal 138-453 [facility] Comment on above: Performed By: #### B MP, CDP, TSHX ####[facility] [address] [place] [address] Lab Director: Kristian Garcia MD Performed By: #### B MP, CDP, TSHX #### [facility] [address] [place] [address] Cigar Packing Examiner: Kristian Garcia MD RBC (Bld) [#/Vol] 4.21 10*6/uL Normal 3.95-5.11 [facility] Comment on above: Performed By: #### B MP, CDP, TSHX ####[facility] [address] [place] [address] Lab Director: Kristian Garcia MD Performed By: #### B MP, CDP, TSHX #### [facility] [address] [place] [address] [phone] Cigar Packing Examiner: Kristian Garcia MD WBC (Bld) [#/Vol] 6.6 10*3/uL Normal 3.5-11.3 [facility] Comment on above: Performed By: #### B TOBIAS BYNUM, TSHX ####[facility] [address] [place], [place] [phone] Lab Director: Kristian Garica MD Performed By: #### B TOBIAS BYNUM, TSHX #### [facility] [place] [address] Cigar Packing Examiner: Kristian Garcia MD CT CHEST ABDOMEN PELVIS [...] Gómez Valencia MD 03/05/24 Final result Normal [facility] CT LUMBAR SPINE BONY RECONST RUCTIONon [...] Gómez Valencia MD 03/05/24 Final result Normal [facility] CT THORACIC SPINE BONY RECON STRUCTIONon [...] Gómez Valencia MD 03/05/24 Final result Normal [facility] No Panel Informationon 03-05 1. No [...] nerve roots is necessary, MRI is recommended. [facility] RIS CONSOLIDATED Gómez Valencia MD - [...] lumbar spine. 3. Chronic findings, as described. [facility] No Panel InformationOrdered By: Gómez Valencia on 03-05-2024 [facility] Work Phone: TSH reflex to FT4on 03-05-19 25 TSH Qn 1.70 m[IU]/L [facility] TSH w/reflex to FT4on 2024 Thyroid Stim. Horm. 1.70 uIU/mL Normal 0.27-4.20 [facility] Comment on above: Performed By: #### B TOBIAS BYNUM, TSHX ####[employer] [place] [address] Lab Director: Kristian Garcia MD Performed By: #### B TOBIAS BYNUM, TSHX #### [employer] [address] [place] [address] Cigar Packing Examiner: Kristian Garcia MD Basic Metabolic Panelon Anion gap [Moles/Vol] 10 mmol/L 9 - 16 mmol/L [facility] Calcium [Mass/Vol] 8.4 mg/dL Low 8.6 - 10. 4 mg/dL [facility] Chloride [Moles/Vol] 99 mmol/L 98 - 10 7 mmol/L [facility] CO2 [Moles/Vol] 28 mmol/L 20 - 31 mmol/L [facility] Creatinine [Mass/Vol] 0.9 mg/dL 0.6 - 0.9 mg/dL [facility] Glom Filt Rate 66 - PINF [employer] [facility] Comment on above: These results are not [...] 106 mg/dL High 74 - 99 mg/dL [facility] Interpretation and review of laboratory results Abnormal [facility] Potassium [Moles/Vol] 3.0 mmol/L Low 3.7 - 5.3 mmol/L [facility] Sodium [Moles/Vol] 137 mmol/L 136 - 145 mmol/L [facility] Urea nitrogen [Mass/Vol] 11 mg/dL 8 - 23 mg/dL [facility] Anion gap [Moles/Vol] 11 mmol/L 9 - 16 mmol/L [facility] Calcium [Mass/Vol] 8.4 mg/dL Low 8.6 - 10. 4 mg/dL [facility] Chloride [Moles/Vol] 99 mmol/L 98 - 10 7 mmol/L [facility] CO2 [Moles/Vol] 26 mmol/L 20 - 31 mmol/L [facility] Creatinine [Mass/Vol] 0.9 mg/dL 0.6 - 0.9 mg/dL [facility] Est, Glom Filt Rate 66 - PINF [facility] [facility] Comment on above: These results are [...] 110 mg/dL High 74 - 99 mg/dL [facility] Interpretation and review of laboratory results Abnormal [facility] Potassium [Moles/Vol] 2.9 mmol/L Critically low 3.7 - 5.3 mmol/L [facility] Comment on above: Specimen hemolysis h as exceeded the interference as defined by Bal. Value may be falsely increased. Suggest recollection if clinically indicated. Sodium [Moles/Vol] 136 mmol/L 136 - 145 mmol/L [facility] Urea nitrogen [Mass/Vol] 11 mg/dL 8 - 23 mg/dL [facility] Basic Metabolic Profon 03-04 Anion gap [Moles/Vol] 10 mmol/L Normal 9-16 [facility] Comment on above: Performed By: #### P HO, MG, BMP #### [employer] [address] [place] [phone] Cigar Packing Examiner: Kristian Garcia MD Performed By: #### P HO, BMP, MG ####[employer] [place] [address] Lab Director: Kristian Garcia MD Calcium [Mass/Vol] 8.4 mg/dL Low 8.6-10.4 [facility] Comment on above: Performed By: #### P HO, MG, BMP #### [employer] [address] [place] [address] Cigar Packing Examiner: Kristian Garcia MD Performed By: #### P HO, BMP, MG ####[employer] [place] [address] 478[address] Lab Director: Kristian Garcia MD Chloride [Moles/Vol] 99 mmol/L Normal 98-107 [facility] Comment on above: Performed By: #### P HO, MG, BMP #### [employer] [address] [place] [phone] Cigar Packing Examiner: Kristian Garcia MD Performed By: #### P HO, BMP, MG ####[facility] [address] [place] [address] Lab Director: Kristian Garcia MD CO2 [Moles/Vol] 28 mmol/L Normal 20-31 [facility] Comment on above: Performed By: #### P HO, MG, BMP #### [facility] [address] [place] [address] Cigar Packing Examiner: Kristian Garcia MD Performed By: #### P HO, BMP, MG ####[facility] [address] [place] [address] Lab Director: Kristian Garcia MD Creatinine [Mass/Vol] 0.9 mg/dL Normal 0.6-0.9 [facility] Comment on above: Performed By: #### P HO, MG, BMP #### [facility] [address] [place] [address] Cigar Packing Examiner: Kristian Garcia MD Performed By: #### P HO, BMP, MG ####[facility] [address] [place] [address] Lab Director: Kristian Garcia MD GFR/1.73 sq M.predicted among non-blacks MDRD (S/P/Bld) [Vol rate/Area] 66 mL/min/{1.73_m2} Normal >60 [facility] Comment on above: Result Comment: These [...] HO, MG, BMP #### [facility] [address] [place] [address] Cigar Packing Examiner: Kristian Garcia MD Performed By: #### P HO, BMP, MG ####[facility] [address] [place] [address] Lab Director: Kristian Garcia MD Glucose [Mass/Vol] 106 mg/dL High 74-99 [facility] Comment on above: Performed By: #### P HO, MG, BMP #### [facility] [address] [place] [address] Cigar Packing Examiner: Kristian Garcia MD Performed By: #### P HO, BMP, MG ####[facility] [address] [place] [address] 82865 Lab Director: Kristian Garcia MD Potassium [Moles/Vol] 3.0 mmol/L Low 3.7-5.3 [facility] Comment on above: Performed By: #### P HO, MG, BMP #### [facility] [address] [place] [address] Cigar Packing Examiner: Kristian Garcia MD Performed By: #### P HO, BMP, MG ####[facility] [address] [place] [address] Lab Director: Kristian Garcia MD Sodium [Moles/Vol] 137 mmol/L Normal 136-145 [facility] Comment on above: Performed By: #### P HO, MG, BMP #### [facility] [address] [place] [address] Cigar Packing Examiner: Kristian Garcia MD Performed By: #### P HO, BMP, MG ####[facility] [address] [place] [address] Lab Director: Kristian Garcia MD Urea nitrogen [Mass/Vol] 11 mg/dL Normal 8-23 [facility] Comment on above: Performed By: #### P HO, MG, BMP #### [facility] [address] [place] [address] Cigar Packing Examiner: Kristian Garcia MD Performed By: #### P HO, BMP, MG ####[facility] [address] [place] [address] Lab Director: Kristian Garcia MD Anion gap [Moles/Vol] 11 mmol/L Normal 9-16 [facility] Comment on above: Performed By: #### B MP, CDP #### [address] [address] Cigar Packing Examiner: Kristian Garcia MD Performed By: #### C DP, BMP #### [facility] [address] [place] [address] Cigar Packing Examiner: Kristian Garcia MD Calcium [Mass/Vol] 8.4 mg/dL Low 8.6-10.4 [facility] Comment on above: Performed By: #### B MP, CDP #### [facility] [address] [place] [address] Cigar Packing Examiner: Kristian Garcia MD Performed By: #### C DP, BMP #### [facility] [address] [place] [address] Cigar Packing Examiner: Kristian Garcia MD Chloride [Moles/Vol] 99 mmol/L Normal 98-107 [facility] Comment on above: Performed By: #### B MP, CDP #### [facility] [address] [place] [address] Cigar Packing Examiner: Kristian Garcia MD Performed By: #### C DP, BMP #### [facility] [address] [place] [address] Cigar Packing Examiner: Kristian Garcia MD CO2 [Moles/Vol] 26 mmol/L Normal 20-31 [facility] Comment on above: Performed By: #### B MP, CDP #### [facility] [address] [place] [address] Cigar Packing Examiner: Kristian Garcia MD Performed By: #### C DP, BMP #### [address] [address] Cigar Packing Examiner: Kristian Garcia MD Creatinine [Mass/Vol] 0.9 mg/dL Normal 0.6-0.9 [facility] Comment on above: Performed By: #### B MP, CDP #### [address] [address] Cigar Packing Examiner: Kristian Garcia MD Performed By: #### C DP, BMP #### [address] [address] Cig[employer] Packing Examiner: Kristian Garcia MD GFR/1.73 sq M.predicted among non-blacks MDRD (S/P/Bld) [Vol rate/Area] 66 mL/min/{1.73_m2} Normal >60 [facility] Comment on above: Result Comment: These [...] Performed By: #### B MISA, CDP #### [address] [address] Cigar Packing Examiner: Kristian Garcia MD Performed By: #### C DP, BMP #### [address] [address] Cigar Packing Examiner: Kristian Garcia MD Glucose [Mass/Vol] 110 mg/dL High 74-99 [facility] Comment on above: Performed By: #### B MP, CDP #### [address] [address] Cigar Packing Examiner: Kristian Garcia MD Performed By: #### C DP, BMP #### [address] [address] Cigar Packing Examiner: Kristian Garcia MD Potassium [Moles/Vol] 2.9 mmol/L Critically low 3.7-5.3 [facility] Comment on above: Result Comment: Spec imen hemolysis has exceeded the interference as defined by Bal. Value may be falsely increased. Suggest recollection if clinically indicated. Performed By: #### B MP, CDP #### [facility] [address] [place] [phone] Cigar Packing Examiner: Kristian Garcia MD Performed By: #### C DP, BMP #### [employer] [address] [place] [address] Cig[employer] Packing Examiner: Kristian Garcia MD Sodium [Moles/Vol] 136 mmol/L Normal 136-145 [facility] Comment on above: Performed By: #### B MP, CDP #### [facility] [address] [place] [address] Cigar Packing Examiner: Kristian Garcia MD Performed By: #### C DP, BMP #### [employer] [address] [place] [address] Cigar Packing Examiner: Kristian Garcia MD Urea nitrogen [Mass/Vol] 11 mg/dL Normal 8-23 [facility] Comment on above: Performed By: #### B MP, CDP #### [employer] [address] [place] [address] Cigar Packing Examiner: Kristian Garcia MD Performed By: #### C DP, BMP #### [employer] [address] [place] [address] Cigar Packing Examiner: Kristian aGrcia MD CBC with Auto Differentialon 03-04-2024 Basophils (Bld) [#/Vol] 0.03 10*3/uL [facility] Basophils/100 WBC (Bld) 1 % 0 - 2 % [facility] Eosinophils (Bld) [#/Vol] 0.09 10*3/uL [facility] Eosinophils/100 WBC (Bld) 2 % 1 - 4 % [facility] Erythrocyte distribution width (RBC) [Ratio] 13.3 % 11.8 - 14.4 % [facility] Hematocrit (Bld) [Volume fraction] 40.4 % 36.3 - 47.1 % [facility] Hemoglobin (Bld) [Mass/Vol] 12.6 g/dL 11.9 - 15.1 g/dL [facility] Immature granulocytes (Bld) [#/Vol] [facility] Immature granulocytes/100 WBC (Bld) 0 % 0 [facility] Interpretation and review of laboratory results Abnormal [facility] Lymphocytes/100 WBC (Bld) 24 % 24 - 43 % [facility] Lymphocytes/100 WBC (Bld) 1.43 % [facility] MCH (RBC) [Entitic mass] 29.9 pg 25.2 - 33.5 pg [facility] MCHC (RBC) [Mass/Vol] 31.2 g/dL 28.4 - 34.8 g/dL [facility] MCV (RBC) [Entitic vol] 95.7 fL 82.6 - 102.9 fL [facility] Monocytes/100 WBC (Bld) 17 % High 3 - 12 % [facility] Monocytes/100 WBC (Bld) 1.02 % [facility] Neutrophils/100 WBC (Bld) 57 % 36 - 65 % [facility] Nucleated RBC/100 WBC (Bld) [Ratio] 0.0 % 0.0 per 100 WBC [facility] Platelet, Fluorescence 138 [facility] Platelets (Bld) [#/Vol] See Reflexed IPF Result [facility] Platelets reticulated/100 platelets Auto (Bld) 3.9 % 1.1 - 10.3 % [facility] RBC (Bld) [#/Vol] 4.22 10*6/uL 3.95 - 5.11 m/uL [facility] Segmented neutrophils/100 WBC (Bld) 3.40 % [facility] WBC other (Bld) [#/Vol] 6.0 [facility] CBC with Diffon 03-04-2024 Abs. Basophil 0.03 k/uL Normal 0.00-0.20 [facility] Comment on above: Performed By: #### B MP, CDP #### [address] [address] Cigar Packing Examiner: Kristian Garcia MD Performed By: #### C DP, BMP #### [address] [address] Cig[employer] Packing Examiner: Kristian Garcia MD Abs.Imm.Granulocyte <0.03 Normal 0.00-0.30 [facility] Comment on above: Performed By: #### B MP, CDP #### [address] [address] Cigar Packing Examiner: Kristian Garcia MD Performed By: #### C DP, BMP #### [place] [address] Cigar Packing Examiner: Kristian Garcia MD Abs.Neutrophil (Seg) 3.40 k/uL Normal 1.50-8.10 [facility] Comment on above: Performed By: #### B MP, CDP #### [address] [address] Cigar Packing Examiner: Kristian Garcia MD Performed By: #### C DP, BMP #### [address] [address] Cig[employer] Packing Examiner: Kristian Garcia MD Basophils/100 WBC (Bld) 1 % Normal 0-2 [facility] Comment on above: Performed By: #### B MP, CDP #### [address] [address] Cig[employer] Packing Examiner: Kristian Garcia MD Performed By: #### C DP, BMP #### [address] [address] Cig[employer] Packing Examiner: Kristian Garcia MD Eosinophils (Bld) [#/Vol] 0.09 10*3/uL Normal 0.00-0.44 [facility] Comment on above: Performed By: #### B MP, CDP #### [address] [address] Cigar Packing Examiner: Kristian Garcia MD Performed By: #### C DP, BMP #### [address] [address] Cig[employer] Packing Examiner: Kristian Garcia MD Eosinophils/100 WBC (Bld) 2 % Normal 1-4 [facility] Comment on above: Performed By: #### B MP, CDP #### [address] [address] Cigar Packing Examiner: Kristian Garcia MD Performed By: #### C DP, BMP #### [address] [address] Cig[employer] Packing Examiner: Kristian Garcia MD Erythrocyte distribution width (RBC) [Ratio] 13.3 % Normal 11.8-14.4 [facility] Comment on above: Performed By: #### B MP, CDP #### [address] [address] Cig[employer] Packing Examiner: Kristian Garcia MD Performed By: #### C DP, BMP #### [address] [address] Cig[employer] Packing Examiner: Kristian Garcia MD Hematocrit (Bld) [Volume fraction] 40.4 % Normal 36.3-47.1 [facility] Comment on above: Performed By: #### B MP, CDP #### [address] [address] Cig[employer] Packing Examiner: Kristian Garcia MD Performed By: #### C DP, BMP #### [address] [address] Cig[employer] Packing Examiner: Kristian Garcia MD Hemoglobin (Bld) [Mass/Vol] 12.6 g/dL Normal 11.9-15.1 [facility] Comment on above: Performed By: #### B MP, CDP #### [address] [address] Cigar Packing Examiner: Kristian Garcia MD Performed By: #### C DP, BMP #### [address] [address] Cig[employer] Packing Examiner: Kristian Garcia MD Immature granulocytes/100 WBC (Bld) 0 % Normal 0 [facility] Comment on above: Performed By: #### B MP, CDP #### [address] [address] Cigar Packing Examiner: Kristian Garcia MD Performed By: #### C DP, BMP #### [address] [address] Cig[employer] Packing Examiner: Kristian Garcia MD Lymphocytes (Bld) [#/Vol] 1.43 10*3/uL Normal 1.10-3.70 [facility] Comment on above: Performed By: #### B MP, CDP #### [address] [address] Cigar Packing Examiner: Kristian Garcia MD Performed By: #### C DP, BMP #### [address] [address] Cig[employer] Packing Examiner: Kristian Garcia MD Lymphocytes/100 WBC (Bld) 24 % Normal 24-43 [facility] Comment on above: Performed By: #### B MP, CDP #### [address] [address] Cig[employer] Packing Examiner: Kristian Garcia MD Performed By: #### C DP, BMP #### [address] [address] Cig[employer] Packing Examiner: Kristian Garcia MD MCH (RBC) [Entitic mass] 29.9 pg Normal 25.2-33.5 [facility] Comment on above: Performed By: #### B MP, CDP #### [address] [address] Cigar Packing Examiner: Kristian Garcia MD Performed By: #### C DP, BMP #### [address] [address] Cigar Packing Examiner: Kristian Garcia MD MCHC (RBC) [Mass/Vol] 31.2 g/dL Normal 28.4-34.8 [facility] Comment on above: Performed By: #### B MP, CDP #### [address] [address] Cigar Packing Examiner: Kristian Garcia MD Performed By: #### C DP, BMP #### [address] [address] Cigar Packing Examiner: Kristian Garcia MD MCV (RBC) [Entitic vol] 95.7 fL Normal 82.6-102.9 [facility] Comment on above: Performed By: #### B MP, CDP #### [address] [address] Cigar Packing Examiner: Kristian Garcia MD Performed By: #### C DP, BMP #### [address] [address] Cigar Packing Examiner: Kristian Garcia MD Monocytes (Bld) [#/Vol] 1.02 10*3/uL Normal 0.10-1.20 [facility] Comment on above: Performed By: #### B MP, CDP #### [address] [address] Cigar Packing Examiner: Kristian Garcia MD Performed By: #### C DP, BMP #### [address] [address] Cigar Packing Examiner: Kristian Garcia MD Monocytes/100 WBC (Bld) 17 % High 3-12 [facility] Comment on above: Performed By: #### B MP, CDP #### [address] [address] Cigar Packing Examiner: Kristian Garcia MD Performed By: #### C DP, BMP #### [address] [address] Cigar Packing Examiner: Kristian Garcia MD Neutrophil (Seg) 57 % Normal 36-65 [facility] Comment on above: Performed By: #### B MP, CDP #### [address] [address] Cigar Packing Examiner: Kristian Garcia MD Performed By: #### C DP, BMP #### [address] [address] Cigar Packing Examiner: Kristian Garcia MD NRBC Automated 0.0 per 100 WBC Normal 0.0 [facility] Comment on above: Performed By: #### B MP, CDP #### [address] [address] Cigar Packing Examiner: Kristian Garcia MD Performed By: #### C DP, BMP #### [address] [address] Cigar Packing Examiner: Kristian Garcia MD Platelet Count See Reflexed IPF Result Normal 138-453 [facility] Comment on above: Performed By: #### B MP, CDP #### [address] [address] Cigar Packing Examiner: Kristian Garcia MD Performed By: #### C DP, BMP #### [address] [address] Cigar Packing Examiner: Kristian Garcia MD Platelet, Fluoresc. 138 k/uL Normal 138-453 [facility] Comment on above: Performed By: #### B MP, CDP #### [address] [address] Cigar Packing Examiner: Kristian Garcia MD Performed By: #### C DP, BMP #### [address] [address] Cigar Packing Examiner: Kristian Garcia MD PLT, Immature Fract. 3.9 % Normal 1.1-10.3 [facility] Comment on above: Performed By: #### B MP, CDP #### [address] [address] Cigar Packing Examiner: Kristian Garcia MD Performed By: #### C DP, BMP #### [address] [address] Cigar Packing Examiner: Kristian Garcia MD RBC (Bld) [#/Vol] 4.22 10*6/uL Normal 3.95-5.11 [facility] Comment on above: Performed By: #### B MP, CDP #### [address] [address] Cigar Packing Examiner: Kristian Garcia MD Performed By: #### C DP, BMP #### [address] [address] Cigar Packing Examiner: Kristian Garcia MD WBC (Bld) [#/Vol] 6.0 10*3/uL Normal 3.5-11.3 [facility] Comment on above: Performed By: #### B MP, CDP #### [address] [address] Cigar Packing Examiner: Kristian Garcia MD Performed By: #### C DP, BMP #### [address] [address] Cigar Packing Examiner: Kristian Garcia MD CT HEAD WO CONTRASTon [...] Alber Dodson MD 03/04/24 Final result Normal [facility] CT Head WO contraston 2024 Persistent but impro ving small volume of subarachnoid hemorrhage. [facility] RIS CONSOLIDATED EXAMINATION: CT OF THE [...] paranasal sinuses. SOFT TISSUES/SKULL: No skull fracture. [facility] CONSOLIDATED Alber Dodson MD - [...] but improving small volume of subarachnoid hemorrhage. [facility] Radiology Study observation (narrative) [facility] Magnesiumon 03-04-2024 Magnesium [Mass/Vol] 2.4 mg/dL 1.6 - 2 .4 mg/dL [facility] Magnesium [Mass/Vol] 2.4 mg/dL Normal 1.6-2.4 [facility] Comment on above: Performed By: #### P HO, MG, BMP #### [employer] [address] [place] [address] Cigar Packing Examiner: Kristian Garcia MD Performed By: #### P HO, BMP, MG ####[employer] [address] [place] [address] Lab Director: Kristian Garcia MD No Panel Informationon 03-04 [facility] Phosphoruson 03-04-2024 Phosphate [Mass/Vol] 2.9 mg/dL 2.5 - 4 .5 mg/dL [facility] Phosphorus, Inorg.on 025 Phosphorus, Inorg. 2.9 mg/dL Normal 2.5-4.5 [facility] Comment on above: Performed By: #### P HO, MG, BMP #### [employer] [address] [place] [address] Cigar Packing Examiner: Kristian Garcia MD Performed By: #### P , [facility], ####[place] [address] [place] [phone] Lab Director: Kristian Garcia MD CT HEAD [...] Alber Dodson MD 03/03/24 Final result Normal [facility] CT Head WO contraston 2023 Trace subarachnoid hemorrhage along the interhemispheric falx. The findings were sent to the Radiology Results Communication Center at 4:37 pm on 03/03/2024 to be communicated to a licensed caregiver. [facility] RIS CONSOLIDATED EXAMINATION: CT OF THE [...] nasal fracture. SOFT TISSUES/SKULL: No skull fracture. [facility] Alber Abdul MD - 03/03/2024 [...] to be communicated to a licensed caregiver. [facility] CT Head WO contrastOrdered B y: Alber Dodson on 03-03-2024 [employer] Work Phone: No Panel Informationon 03-03 Radiology Study observation (narrative) [facility] XATA TYPE AND SCREENon 03-03-2024 ABO and Rh group Nom (Bld) Blood group O Rh(D) positive [facility] Arm Band Number [id number] [facility] Blood Bank Sample Expiration 03/06/2024,2359 [facility] Blood group antibodies identified Nom Negative [facility] Trauma Panelon 03-03-2024 Anion gap [Moles/Vol] 11 mmol/L 9 - 16 mmol/L [facility] aPTT Coag (Bld) [Time] 25.1 s [facility] Comment on above: IV Heparin Therapy Range: 66.0-92.0 sec Blood Bank Specimen BILL FOR SERVICES PERFORMED [facility] Carboxyhemoglobin (Bld) [Mass fraction] 2.3 % 0 - 5 % [facility] Comment on above: Reference Range: Non-Smokers 0-2% Average Smoker 2-4% Heavy Smoker <10% Chloride [Moles/Vol] 95 mmol/L Low 98 - 10 7 mmol/L [facility] CO2 [Moles/Vol] 29 mmol/L 20 - 31 mmol/L [facility] Creatinine [Mass/Vol] 1.1 mg/dL High 0.6 - 0.9 mg/dL [facility] Erythrocyte distribution width (RBC) [Ratio] 13.4 % 11.8 - 14.4 % [facility] Est, Glom Filt Rate 34 Low - PINF [facility] Comment on above: These results are not [...] Ethanol percent <0.010 NINF - 0.010 % [facility] Ethanolamine [Mass/Vol] <10 NINF - 10 mg/dL [facility] Glucose [Mass/Vol] 129 mg/dL High 74 - 99 mg/dL [facility] HCG ( test) Ql Negative NEGATIVE [facility] Comment on above: Specimens with hCG l evels near the threshold of the test (25 mIU/mL) may give a negative or indeterminate result. In such cases, another test should be performed with a new specimen in 48-72 hours. If early is suspected clinically in this setting, correlation with quantitative serum b-hCG level is suggested. [employer] has confirmed the use of plasma for this test. This has not been cleared or approved by the U.S. Food and Drug Administration. The FDA has determined that such clearance is not necessary. HCO3 (Bld) [Moles/Vol] 29.9 mmol/L 24 - 30 mmol/L [facility] Hematocrit (Bld) [Volume fraction] 41.7 % 36.3 - 47.1 % [facility] Hemoglobin (Bld) [Mass/Vol] 13.7 g/dL 11.9 - 15.1 g/dL [facility] INR Coag (PPP) [Relative time] 1.0 {INR} [facility] Comment on above: Therapeutic Range: Moderate Anticoagulant Intensity: INR = 2.0-3.0 High Anticoagulant Intensity: INR = 2.5-3.5 Interpretation and review of laboratory results Abnormal [facility] MCH (RBC) [Entitic mass] 30.2 pg 25.2 - 33.5 pg [facility] MCHC (RBC) [Mass/Vol] 32.9 g/dL 28.4 - 34.8 g/dL [facility] MCV (RBC) [Entitic vol] 92.1 fL 82.6 - 102.9 fL [facility] Nucleated RBC/100 WBC (Bld) [Ratio] 0.0 % 0.0 per 100 WBC [facility] Oxygen saturation in Blood 82.7 % 60.0 - 85.0 % [facility] Oxygen/Inspired gas Respiratory system --on ventilator INFORMATION NOT PROVIDED [facility] pCO2, Michael 50.7 [facility] pH, Michael 7.389 7.320 - 7.420 [facility] Platelet mean volume (Bld) [Entitic vol] 10.3 fL 8.1 - 13.5 fL [facility] Platelets (Bld) [#/Vol] 141 10*3/uL [facility] PO2, Michael 47.8 [facility] Positive Base Excess, Michael 3.8 mmol/L High 0.0 - 2.0 mmol/L [facility] Potassium [Moles/Vol] 3.3 mmol/L Low 3.7 - 5.3 mmol/L [facility] PT Coag (PPP) [Time] 13.0 s [facility] RBC (Bld) [#/Vol] 4.53 10*6/uL 3.95 - 5.11 m/uL [facility] Sodium [Moles/Vol] 135 mmol/L Low 136 - 145 mmol/L [facility] Urea nitrogen [Mass/Vol] 11 mg/dL 8 - 23 mg/dL [facility] WBC other (Bld) [#/Vol] 8.9 [facility] Trauma Profileon 03-03-2024 Anion gap [Moles/Vol] 11 mmol/L Normal 9-16 [facility] Comment on above: Performed By: #### E RTPF #### [facility] [address] [place] [address] Cigar Packing Examiner: Kristian Garcia MD Performed By: #### E RTPF ####[facility] Mobile[address]ln[address] [place], [place] [address])[phone] Director: Kristian Garcia MD Chloride [Moles/Vol] 95 mmol/L Low 98-107 [facility] Comment on above: Performed By: #### E RTPF #### [facility] [address] [place] [address] Cigar Packing Examiner: Kristian Garcia MD Performed By: #### E RTPF ####[facility] MobileL[address] [place] [address] Lab Director: Kristian Garcia MD CO2 [Moles/Vol] 29 mmol/L Normal - [facility] Comment on above: Performed By: #### E RTPF #### [facility] [address] [place], [place] [phone] Cigar Packing Examiner: Kristian Garcia MD Performed By: #### E RTPF ####[address] [address] Lab Director: Kristian Garcia MD Creatinine [Mass/Vol] 1.1 mg/dL High 0.6-0.9 [facility] Comment on above: Performed By: #### E RTPF #### [address] [address] Cigar Packing Examiner: Kristian Garcia MD Performed By: #### E RTPF ####[address] [address] Lab Director: Kristian Garcia MD Ethanol [Mass/Vol] mg/dL Normal <10 [facility] Comment on above: Performed By: #### E RTPF #### [address] [address] Cigar Packing Examiner: Kristian Garcia MD Performed By: #### E RTPF ####[address] [address] Lab Director: Kristian Garcia MD Ethanol percent <0.010 Normal <0.010 [facility] Comment on above: Performed By: #### E RTPF #### [address] [address] Cigar Packing Examiner: Kristian Garcia MD Performed By: #### E RTPF ####[facility] [address] [place] [address] Lab Director: Kristian Garcia MD GFR/1.73 sq M.predicted among non-blacks MDRD (S/P/Bld) [Vol rate/Area] 34 mL/min/{1.73_m2} Low >60 [facility] Comment on above: Result Comment: These [...] secretion. Performed By: #### E RTPF #### [address] [address] Cigar Packing Examiner: Kristian Garcia MD Performed By: #### E RTPF ####[address] [address] Lab Director: Kristian Garcia MD Glucose [Mass/Vol] 129 mg/dL High 74-99 [facility] Comment on above: Performed By: #### E RTPF #### [address] [address] Cigar Packing Examiner: Kristian Garcia MD Performed By: #### E RTPF ####[address] [address] Lab Director: Kristian Garcia MD Potassium [Moles/Vol] 3.3 mmol/L Low 3.7-5.3 [facility] Comment on above: Performed By: #### E RTPF #### [address] [address] Cigar Packing Examiner: Kristian Garcia MD Performed By: #### E RTPF ####[address] [address] Lab Director: Kristian Garcia MD Sodium [Moles/Vol] 135 mmol/L Low 136-145 [facility] Comment on above: Performed By: #### E RTPF #### [address] [address] Cigar Packing Examiner: Kristian Garcia MD Performed By: #### E RTPF ####[address] [address] Lab Director: Kristian Garcia MD Urea nitrogen [Mass/Vol] 11 mg/dL Normal 8-23 [facility] Comment on above: Performed By: #### E RTPF #### [address] [address] Cigar Packing Examiner: Kristian Garcia MD Performed By: #### E RTPF ####[address] [phone] Director: Kristian Garcia MD aPTT Coag (Bld) [Time] 25.1 s Normal 23.0-36.5 [facility] Comment on above: Result Comment: IV Heparin Therapy Range: 66.0-92.0 sec Performed By: #### E RTPF #### [address] [address] Cigar Packing Examiner: Kristian Garcia MD Performed By: #### E RTPF ####[address] [phone] Director: Kristian Garcia MD INR Coag (PPP) [Relative time] 1.0 {INR} Normal [facility] Comment on above: Result Comment: Therapeutic Range: Moderate Anticoagulant Intensity: INR = 2.0-3.0 High Anticoagulant Intensity: INR = 2.5-3.5 Performed By: #### E RTPF #### [address] [address] Cigar Packing Examiner: Kristian Garcia MD Performed By: #### E RTPF ####[address] [phone] Director: Kristian Garcia MD PT Coag (PPP) [Time] 13.0 s Normal 11.7-14.9 [facility] Comment on above: Performed By: #### E RTPF #### [address] [place] [address] Cigar Packing Examiner: Kristian Garcia MD Performed By: #### E RTPF ####[address] [address] Lab Director: Kristian Garcia MD Erythrocyte distribution width (RBC) [Ratio] 13.4 % Normal 11.8-14.4 [facility] Comment on above: Performed By: #### E RTPF #### [address] [address] Cigar Packing Examiner: Kristian Garcia MD Performed By: #### E RTPF ####[address] [address] Lab Director: Kristian Garcia MD Hematocrit (Bld) [Volume fraction] 41.7 % Normal 36.3-47.1 [facility] Comment on above: Performed By: #### E RTPF #### [address] [address] Cigar Packing Examiner: Kristian Garcia MD Performed By: #### E RTPF ####[address] [address] Lab Director: Kristian Garcia MD Hemoglobin (Bld) [Mass/Vol] 13.7 g/dL Normal 11.9-15.1 [facility] Comment on above: Performed By: #### E RTPF #### [address] [address] Cigar Packing Examiner: Kristian Garcia MD Performed By: #### E RTPF ####[address] [address] Lab Director: Kristian Garcia MD MCH (RBC) [Entitic mass] 30.2 pg Normal 25.2-33.5 [facility] Comment on above: Performed By: #### E RTPF #### [address] [address] Cigar Packing Examiner: Kristian Garcia MD Performed By: #### E RTPF ####[address] [phone] Director: Kristian Garcia MD MCHC (RBC) [Mass/Vol] 32.9 g/dL Normal 28.4-34.8 [facility] Comment on above: Performed By: #### E RTPF #### [address] [address] Cigar Packing Examiner: Kristian Garcia MD Performed By: #### E RTPF ####[address] [phone] Director: Kristian Garcia MD MCV (RBC) [Entitic vol] 92.1 fL Normal 82.6-102.9 [facility] Comment on above: Performed By: #### E RTPF #### [address] [address] Cigar Packing Examiner: Kristian Garcia MD Performed By: #### E RTPF ####[address] [phone] Director: Kristian Garcia MD NRBC Automated 0.0 per 100 WBC Normal 0.0 [facility] Comment on above: Performed By: #### E RTPF #### [address] [address] Cigar Packing Examiner: Kristian Garcia MD Performed By: #### E RTPF ####[address] [phone] Director: Kristian Garcia MD Platelet mean volume (Bld) [Entitic vol] 10.3 fL Normal 8.1-13.5 [facility] Comment on above: Performed By: #### E RTPF #### [facility] [address] [place] [address] Cigar Packing Examiner: Kristian Garcia MD Performed By: #### E RTPF ####[facility] [place], [place] [phone] Director: Kristian Garcia MD Platelets (Bld) [#/Vol] 141 10*3/uL Normal 138-453 [facility] Comment on above: Performed By: #### E RTPF #### [place] [address] [place] [address] Cigar Packing Examiner: Kristian Garica MD Performed By: #### E RTPF ####[address] [phone] Director: Kristian Garcia MD RBC (Bld) [#/Vol] 4.53 10*6/uL Normal 3.95-5.11 [facility] Comment on above: Performed By: #### E RTPF #### [facility] [address] [place] [address] Cigar Packing Examiner: Kristian Garcia MD Performed By: #### E RTPF ####[address] [phone] Director: Kristian Garcia MD WBC (Bld) [#/Vol] 8.9 10*3/uL Normal 3.5-11.3 [facility] Comment on above: Performed By: #### E RTPF #### [facility] [address] [place] [address] Cigar Packing Examiner: Kristian Garcia MD Performed By: #### E RTPF ####[place] [address] [place], [place] [phone] Director: Kristian Garcia MD HCG Screen, Blood Negative Normal [facility]G [facility] Comment on above: Result Comment: Spec imens with hCG levels near the threshold of the test (25 mIU/mL) may give a negative or indeterminate result. In such cases, another test should be performed with a new specimen in 48-72 hours. If early is suspected clinically in this setting, correlation with quantitative serum b-hCG level is suggested. [employer] has confirmed the use of plasma for this test. This has not been cleared or approved by the U.S. Food and Drug Administration. The FDA has determined that such clearance is not necessary. Performed By: #### E RTPF #### [employer] [address] [place] [address] Cigar Packing Examiner: Kristian Garcia MD Performed By: #### E RTPF ####[employer] [place] [address] Lab Director: Kristian Garcia MD Body Temp. 37.0 Normal [facility] Comment on above: Performed By: #### E RTPF #### [employer] [address] [place] [address] Cigar Packing Examiner: Kristian Garcia MD Performed By: #### E RTPF ####[employer] [place] [address] Lab Director: Kristian Garcia MD Carboxy Hgb 2.3 % Normal 0-5 [facility] Comment on above: Result Comment: Reference Range: Non-Smokers 0-2% Average Smoker 2-4% Heavy Smoker <10% Performed By: #### E RTPF #### [facility] [address] [address] Cigar Packing Examiner: Kristian Garcia MD Performed By: #### E RTPF ####[employer] [place] [address] Lab Director: Kristian Garcia MD FIO2 INFORMATION NOT PROVIDED Normal [facility] Comment on above: Performed By: #### E RTPF #### [employer] [address] [place] [address] [place] [address] Cigar Packing Examiner: Kristian Garcia MD Performed By: #### E RTPF ####[address] [address] Lab Director: Kristian Garcia MD HCO3 (Bld) [Moles/Vol] 29.9 mmol/L Normal 24-30 [facility] Comment on above: Performed By: #### E RTPF #### [address] [address] Cigar Packing Examiner: Kristian Garcia MD Performed By: #### E RTPF ####[address] [address] Lab Director: Kristian Garcia MD Oxygen saturation in Blood 82.7 % Normal 60.0-85.0 [facility] Comment on above: Performed By: #### E RTPF #### [address] [address] Cigar Packing Examiner: Kristian Garcia MD Performed By: #### E RTPF ####[address] [address] Lab Director: Kristian Garcia MD pCO2 50.7 mm Hg Normal 39-55 [facility] Comment on above: Performed By: #### E RTPF #### [address] [address] Cigar Packing Examiner: Kristian Garcia MD Performed By: #### E RTPF ####[address] [address] Lab Director: Krisitan Garcia MD pH (Bld) 7.389 [pH] Normal 7.320-7.42 0 [facility] Comment on above: Performed By: #### E RTPF #### [address] [address] Cigar Packing Examiner: Kristian Garcia MD Performed By: #### E RTPF ####[address] [phone] Director: Kristian Garcia MD pO2 47.8 mm Hg Normal 30-50 [facility] Comment on above: Performed By: #### E RTPF #### [address] [address] Cigar Packing Examiner: Kristian Garcia MD Performed By: #### E RTPF ####[address] [address] Lab Director: Kristian Garcia MD Positive Base Excess 3.8 mmol/L High 0.0-2.0 [facility] Comment on above: Performed By: #### E RTPF #### [address] [address] Cigar Packing Examiner: Kristian Garcia MD Performed By: #### E RTPF ####[address] [phone] Director: Kristian Garcia MD Blood Bank BILL FOR SERVICES PERFORMED Normal [facility] Comment on above: Performed By: #### E RTPF #### [address] [address] Cigar Packing Examiner: Kristian Garcia MD Performed By: #### E RTPF ####[address] [phone] Director: Kristian Garcia MD Type + Screenon 03-03-2024 Type + Screen Sample Expiration 03/06/2024,2359 Arm Band Number [id number] ABO/Rh(D) O POSITIVE Antibody Screen NEGATIVE Normal [facility] Comment on above: Performed By: #### T YS #### [address] [address] Cigar Packing Examiner: Kristian Garcia MD Alanine Aminotransferaseon 1 04-12-2023 ALT [Catalytic activity/Vol] 14 U/L Normal 7-52 [facility] Comment on above: Performed By: #### B MP, ALT, AST, LIPID #### [address] Aspartate Amino Transferaseo n 02-10-2024 AST [Catalytic activity/Vol] 21 U/L Normal 13-39 [facility] Comment on above: Performed By: #### B MP, ALT, AST, LIPID #### [address] Basic Metabolic Panelon Anion gap [Moles/Vol] 10.9 mmol/L Normal 6.0-15.0 [facility] Comment on above: Performed By: #### B MP, ALT, AST, LIPID #### [address] Calcium [Mass/Vol] 9.9 mg/dL Normal 8.6-10.3 [facility] Comment on above: Performed By: #### B MP, ALT, AST, LIPID #### [address] Chloride [Moles/Vol] 98 mmol/L Normal 98-107 [facility] Comment on above: Performed By: #### B MP, ALT, AST, LIPID #### [address] CO2 [Moles/Vol] 33.9 mmol/L High 21.0-31.0 [facility] Comment on above: Performed By: #### B MP, ALT, AST, LIPID #### [place] [address] [place] Creatinine [Mass/Vol] 1.10 mg/dL Normal 0.60-1.20 [facility] Comment on above: Performed By: #### B MP, ALT, AST, LIPID #### [address] Estimated GFR 52.076 mL/Min Normal [facility] Comment on above: Performed By: #### B MP, ALT, AST, LIPID #### [address] Glucose [Mass/Vol] 116 mg/dL High 70-100 [facility] Comment on above: Result Comment: [facility] Glucose Reference Range is dependent on time and content of last meal. Glucose of more than 200 mg/dL in a nonstressed, ambulatory subject supports the diagnosis of Diabetes Mellitus. ADA recommended reference range Performed By: #### B MP, ALT, AST, LIPID #### [address] Potassium [Moles/Vol] 3.8 mmol/L Normal 3.5-5.1 [facility] Comment on above: Performed By: #### B MP, ALT, AST, LIPID #### [address] Sodium [Moles/Vol] 139 mmol/L Normal 136-145 [facility] Comment on above: Performed By: #### B MP, ALT, AST, LIPID #### [place] [address] [place] Urea nitrogen [Mass/Vol] 13 mg/dL Normal 7-25 [facility] Comment on above: Performed By: #### B MP, ALT, AST, LIPID #### [address] Complete Blood Count Auto Di ffon 02-10-2024 Basophils (Bld) [#/Vol] 0.0 10*3/uL Normal 0.0-0.2 [facility] Comment on above: Result Comment: PERF ORMED BY: [place] [address] PATHOLOGIST PREFORMS LAMINATOR SELIN HOYT M.D. Performed By: #### B MP, ALT, AST, LIPID #### [place] [address] [place] Basophils/100 WBC (Bld) 0.7 % Normal . [facility] Comment on above: Performed By: #### B MP, ALT, AST, LIPID #### [address] Eosinophils (Bld) [#/Vol] 0.2 10*3/uL Normal 0.0-0.45 [facility] Comment on above: Performed By: #### B MP, ALT, AST, LIPID #### [address] Eosinophils/100 WBC (Bld) 2.6 % Normal . [facility] Comment on above: Performed By: #### B MP, ALT, AST, LIPID #### [address] Erythrocyte distribution width (RBC) [Ratio] 14.0 % Normal 11.9-15.3 [facility] Comment on above: Performed By: #### B MP, ALT, AST, LIPID #### [address] Hematocrit (Bld) [Volume fraction] 46.2 % Normal 34.0-46.4 [facility] Comment on above: Performed By: #### B MP, ALT, AST, LIPID #### [address] Hemoglobin (Bld) [Mass/Vol] 15.3 g/dL Normal 11.8-15.4 [facility] Comment on above: Performed By: #### B MP, ALT, AST, LIPID #### [address] Lymphocytes (Bld) [#/Vol] 1.5 10*3/uL Normal 1.00-4.8 [facility] Comment on above: Performed By: #### B MP, ALT, AST, LIPID #### [address] Lymphocytes/100 WBC (Bld) 25.0 % Normal . [facility] Comment on above: Performed By: #### B MP, ALT, AST, LIPID #### [address] MCH (RBC) [Entitic mass] 30.6 pg Normal 24.7-34.3 [facility] Comment on above: Performed By: #### B MP, ALT, AST, LIPID #### [address] MCV (RBC) [Entitic vol] 92.2 fL Normal 80-100 [facility] Comment on above: Performed By: #### B MP, ALT, AST, LIPID #### [address] Mean Corpuscular HGB Conc 33.1 g/dL Normal 32.0-35.0 [facility] Comment on above: Performed By: #### B MP, ALT, AST, LIPID #### [address] Monocytes (Bld) [#/Vol] 0.6 10*3/uL Normal 0.0-0.8 [facility] Comment on above: Performed By: #### B MP, ALT, AST, LIPID #### [address] Monocytes/100 WBC (Bld) 9.3 % Normal . [facility] Comment on above: Performed By: #### B MP, ALT, AST, LIPID #### [address] Neutrophils (Bld) [#/Vol] 3.9 10*3/uL Normal 1.8-7.7 [facility] Comment on above: Performed By: #### B MP, ALT, AST, LIPID #### [address] Neutrophils/100 WBC (Bld) 62.4 % Normal . [facility] Comment on above: Performed By: #### B MP, ALT, AST, LIPID #### [address] NRBC% 0.1 /100{WBC} Normal 0-0.5 [facility] Comment on above: Performed By: #### B MP, ALT, AST, LIPID #### [address] [place] [address] [place] Platelet mean volume (Bld) [Entitic vol] 9.6 fL Normal 6.3-10.7 [facility] Comment on above: Performed By: #### B MP, ALT, AST, LIPID #### [facility] [address] Platelets (Bld) [#/Vol] 214 10*3/uL Normal 150-450 [facility] Comment on above: Performed By: #### B MP, ALT, AST, LIPID #### [facility] [address] RBC (Bld) [#/Vol] 5.01 10*6/uL High 3.60-5.00 [facility] Comment on above: Performed By: #### B MP, ALT, AST, LIPID #### [facility] [address] WBC (Bld) [#/Vol] 6.2 10*3/uL Normal 3.8-11.6 [facility] Comment on above: Performed By: #### B MP, ALT, AST, LIPID #### [address] Lipid Panelon 02-10-2024 Cholesterol [Mass/Vol] 135 mg/dL Low 140-200 [facility] Comment on above: Result Comment: Chol less than 200 mg/dl low risk Chol 201-239 mg/dl borderline risk Chol 240 mg/dl and greater high risk Performed By: #### B MP, ALT, AST, LIPID #### [address] Cholesterol in HDL [Mass/Vol] 49 mg/dL Normal 23-92 [facility] Comment on above: Result Comment: HDL CHOL ATP-III CLASSIFICATION Cardiovascular Risk HDL > or equal to 60 mg/dL LOW HDL < 40 mg/dL HIGH Performed By: #### B MP, ALT, AST, LIPID #### [address] Cholesterol.total/Chol esterol in HDL [Mass ratio] 2.8 {ratio} Normal <5.0 [facility] Comment on above: Result Comment: PERF ORMED BY: [place] [address] PATHOLOGIST PREFORMS LAMINATOR SELIN HOYT M.D. Performed By: #### B MP, ALT, AST, LIPID #### [address] LDL Cholesterol,Calculated 42 mg/dL Normal 0-100 [facility] Comment on above: Result Comment: LDL ATP III CLASSIFICATION LDL less than 100 mg/dL Optimal LDL 100-129 mg/dL Near or above optimal LDL 130-159 mg/dL Borderline high LDL 160-189 mg/dL High LDL greater than 189 mg/dL Very high Performed By: #### B MP, ALT, AST, LIPID #### [address] Triglyceride w/Reflex 218 mg/dL High 0-149 [facility] Comment on above: Result Comment: TRIG ATP III CLASSIFICATION TRIG less than 150 mg/dL Normal TRIG 150-199 mg/dL Borderline high TRIG 200-500 mg/dL High TRIG greater than 500 mg/dL Very high Standard traceable to the Center for Disease Conrtrol and Prevention (CDC) test method. Performed By: #### B MP, ALT, AST, LIPID #### [address] VLDL CHOLESTEROL 43 mg/dL Normal [facility] Comment on above: Performed By: #### B MP, ALT, AST, LIPID #### [address] Albumin [Mass/volume] in Ser um or Plasma by Bromocresol green (BCG) dye binding methoOrdered By: Jani Aguilera on 12-02-2023 Albumin BCG dye [Mass/Vol] 4.1 g/dL 3.5-5.7 [facility] Bacteria [Presence] in Urine by AutomatedOrdered By: Jani Aguilera on 12-02-2023 Bacteria Auto Ql (U) Rare [HPF] None Seen [facility] Bilirubin Test strip Ql (U)O rdered By: Jani Aguilera on 12-02-2023 Bilirubin Ql (U) Negative Negative [facility] Calcium [Mass/volume] in Ser um or PlasmaOrdered By: Jani Aguilera on 12-02-2023 Calcium [Mass/Vol] 9.1 mg/dL Normal 8.6-10.3 [facility] Comment on above: Performed By: #### M G, RENAL, CUU, [id number], CBCNO, URIC, ADDONUAPLUS, PROCRERAT, PTH #### [facility] [address] [place] [id number] [place] Carbon dioxide, total [Moles /volume] in Serum or PlasmaOrdered By: Jani Aguilera on 12-02-2023 CO2 [Moles/Vol] 32.3 mmol/L High 21.0-31.0 [facility] Comment on above: Performed By: #### M G, RENAL, CUU, [id number], CBCNO, URIC, ADDONUAPLUS, PROCRERAT, PTH #### [facility] [address] [place] [id number] [place] Chloride [Moles/volume] in S live or PlasmaOrdered By: Jani Aguilera on 12-02-2023 Chloride [Moles/Vol] 101 mmol/L Normal 98-107 [facility] Comment on above: Performed By: #### M G, RENAL, CUU, [id number], CBCNO, URIC, ADDONUAPLUS, PROCRERAT, PTH #### [facility] [address] [place] [id number] [place] Color of Urine by AutoOrdere d By: Jani Aguilera on 12-02-2023 Color (U) Light-yellow Normal Yellow [facility] Comment on above: Order Comment: Name Collection Type:: Clean-Voided Midstream Performed By: #### M G, RENAL, CUU, [id number], CBCNO, URIC, ADDONUAPLUS, PROCRERAT, PTH #### [facility] [address] [place] [address] [place] Creatinine [Mass/volume] in Serum or PlasmaOrdered By: Jani Aguilera on 12-02-2023 Creatinine [Mass/Vol] 1.12 mg/dL Normal 0.60-1.20 [facility] Comment on above: Performed By: #### M G, RENAL, CUU, [id number], CBCNO, URIC, ADDONUAPLUS, PROCRERAT, PTH #### [facility] [address] Creatinine [Mass/volume] in UrineOrdered By: Jani Aguilera on 12-02-2023 Creatinine (U) [Mass/Vol] 105.00 mg/dL [facility] Comment on above: No reference range e stablished Dipstick and Microscopicon 0 12-02-2023 Bacteria,Urine Rare Normal None Seen [facility] Comment on above: Order Comment: Name Collection Type:: Clean-Voided Midstream Performed By: #### M G, RENAL, CUU, [id number], CBCNO, URIC, ADDONUAPLUS, PROCRERAT, PTH #### [facility] [address] Bilirubin,Urine Negative Normal Negative [facility] Comment on above: Order Comment: Name Collection Type:: Clean-Voided Midstream Performed By: #### M G, RENAL, CUU, [id number], CBCNO, URIC, ADDONUAPLUS, PROCRERAT, PTH #### [facility] [address] Glucose Ql (U) Normal Normal Normal [facility] Comment on above: Order Comment: Name Collection Type:: Clean-Voided Midstream Performed By: #### M G, RENAL, CUU, [id number], CBCNO, URIC, ADDONUAPLUS, PROCRERAT, PTH #### [facility] [address] Hyaline Casts,Urine None Normal 0-8 [facility] Comment on above: Order Comment: Name Collection Type:: Clean-Voided Midstream Result Comment: PERF ORMED BY: [address] [place] [address] PATHOLOGIST PREFORMS LAMINATOR SHELLI CHARLES M.D. Performed By: #### M G, RENAL, CUU, [id number], CBCNO, URIC, ADDONUAPLUS, PROCRERAT, PTH #### [place] [address] [place] Nitrite,Urine Negative Normal Negative [facility] Comment on above: Order Comment: Name Collection Type:: Clean-Voided Midstream Performed By: #### M G, RENAL, CUU, [id number], CBCNO, URIC, ADDONUAPLUS, PROCRERAT, PTH #### [address] Occult Blood,Urine 2+ High Negative [facility] Comment on above: Order Comment: Name Collection Type:: Clean-Voided Midstream Performed By: #### M G, RENAL, CUU, [id number], CBCNO, URIC, ADDONUAPLUS, PROCRERAT, PTH #### [place] [address] [place] Protein,Urine Negative Normal Negative [facility] Comment on above: Order Comment: Name Collection Type:: Clean-Voided Midstream Performed By: #### M G, RENAL, CUU, [id number], CBCNO, URIC, ADDONUAPLUS, PROCRERAT, PTH #### [address] RBC,Urine 10-19 High 0-4 [facility] Comment on above: Order Comment: Name Collection Type:: Clean-Voided Midstream Performed By: #### M G, RENAL, CUU, [id number], CBCNO, URIC, ADDONUAPLUS, PROCRERAT, PTH #### [place] [address] [place] Specificy [place],Urine 1.018 Normal 1.001-1.03 0 [facility] Comment on above: Order Comment: Name Collection Type:: Clean-Voided Midstream Performed By: #### M G, RENAL, CUU, [id number], CBCNO, URIC, ADDONUAPLUS, PROCRERAT, PTH #### [address] Squamous Epithelial Cell,Urine 3-4 High 0-2 [facility] Comment on above: Order Comment: Name Collection Type:: Clean-Voided Midstream Performed By: #### M G, RENAL, CUU, [id number], CBCNO, URIC, ADDONUAPLUS, PROCRERAT, PTH #### [address] Urobilinogen,Urine 2 mg/dL High Normal [facility] Comment on above: Order Comment: Name Collection Type:: Clean-Voided Midstream Performed By: #### M G, RENAL, CUU, [id number], CBCNO, URIC, ADDONUAPLUS, PROCRERAT, PTH #### [address] WBC CLUMP, Urine Occasional High None Seen [facility] Comment on above: Order Comment: Name Collection Type:: Clean-Voided Midstream Performed By: #### M G, RENAL, CUU, [id number], CBCNO, URIC, ADDONUAPLUS, PROCRERAT, PTH #### [address] WBC,Urine 10-19 High 0-4 [facility] Comment on above: Order Comment: Name Collection Type:: Clean-Voided Midstream Performed By: #### M G, RENAL, CUU, [id number], CBCNO, URIC, ADDONUAPLUS, PROCRERAT, PTH #### [address] Epithelial cells.squamous [# /area] in Urine sediment by Automated countOrdered By: Jani Hardinr on 12-02-2023 Epithelial cells.squamous Auto (Urine sed) [#/Area] 3-4 [HPF] High 0-2 [facility] Erythrocyte distribution wid th [Ratio] by Automated countOrdered By: Jani Willy on 12-02-2023 Erythrocyte distribution width (RBC) [Ratio] 13.5 % Normal 11.9-15.3 [facility] Comment on above: Performed By: #### M G, RENAL, CUU, [id number], CBCNO, URIC, ADDONUAPLUS, PROCRERAT, PTH #### [facility] [address] [place] [id number] [place] Erythrocytes [#/area] in Uri ne sediment by Automated countOrdered By: Jani Aguilera on 12-02-2023 RBC Auto (Urine sed) [#/Area] 10-19 [HPF] High 0-4 [facility] Erythrocytes [#/volume] in B lood by Automated countOrdered By: Jani Aguilera on 12-02-2023 RBC (Bld) [#/Vol] 4.78 10*6/uL Normal 3.60-5.00 [facility] Comment on above: Performed By: #### M G, RENAL, CUU, [id number], CBCNO, URIC, ADDONUAPLUS, PROCRERAT, PTH #### [facility] [address] [place] [id number] [place] Glucose [Mass/volume] in Ser um or PlasmaOrdered By: Jani Aguilera on 12-02-2023 Glucose [Mass/Vol] 96 mg/dL Normal 70-100 [facility] Comment on above: ADA recommended refe rence rangeRandom Glucose Reference Range is dependent on time and content of last meal. Glucose of more than 200 mg/dL in a nonstressed, ambulatory subject supports the diagnosis of Diabetes Mellitus. Result Comment: [place] om Glucose Reference Range is dependent on time and content of last meal. Glucose of more than 200 mg/dL in a nonstressed, ambulatory subject supports the diagnosis of Diabetes Mellitus. ADA recommended reference range Performed By: #### M G, RENAL, CUU, [id number], CBCNO, URIC, ADDONUAPLUS, PROCRERAT, PTH #### [facility] [address] [place] [phone] [place] Glucose [Mass/volume] in Uri ne by Test stripOrdered By: Jani Agiulera on 12-02-2023 Glucose Test strip (U) [Mass/Vol] Normal mg/dL Normal [facility] Hematocrit [Volume Fraction] of Blood by Automated countOrdered By: Jani Aguilera on 12-02-2023 Hematocrit (Bld) [Volume fraction] 43.1 % Normal 34.0-46.4 [facility] Comment on above: Performed By: #### M G, RENAL, CUU, [id number], CBCNO, URIC, ADDONUAPLUS, PROCRERAT, PTH #### [address] Hemoglobin Test strip Ql (U) Ordered By: Jani Aguilera on 12-02-2023 Hemoglobin Ql (U) 2+ High Negative [facility] Hemoglobin [Mass/volume] in BloodOrdered By: Jani Aguilera on 12-02-2023 Hemoglobin (Bld) [Mass/Vol] 14.4 g/dL Normal 11.8-15.4 [facility] Comment on above: Performed By: #### M G, RENAL, CUU, [id number], CBCNO, URIC, ADDONUAPLUS, PROCRERAT, PTH #### [address] Hemogram CBC Without Diffon 12-02-2023 Mean Corpuscular HGB Conc 33.4 g/dL Normal 32.0-35.0 [facility] Comment on above: Performed By: #### M G, RENAL, CUU, [id number], CBCNO, URIC, ADDONUAPLUS, PROCRERAT, PTH #### [address] WBC (Bld) [#/Vol] 6.7 10*3/uL Normal 3.8-11.6 [facility] Comment on above: Performed By: #### M G, RENAL, CUU, [id number], CBCNO, URIC, ADDONUAPLUS, PROCRERAT, PTH #### [address] Hyaline casts [#/area] in Ur ine sediment by Automated countOrdered By: Jani Aguilera on 12-02-2023 Hyaline casts Auto (Urine sed) [#/Area] None [LPF] 0-8 [facility] Ketones [Presence] in Urine by Test stripOrdered By: Jani Aguilera on 12-02-2023 Ketones Ql (U) Negative Normal Negative [facility] Comment on above: Order Comment: Name Collection Type:: Clean-Voided Midstream Performed By: #### M G, RENAL, CUU, [id number], CBCNO, URIC, ADDONUAPLUS, PROCRERAT, PTH #### [facility] [address] Laboratory - Microbiology an d Antimicrobial susceptibilityOrdered By: Jani Aguilera on 12-02-2023 Bacteria identified Cx Nom (U) 2 Days [facility] Leukocyte clumps [Presence] in Urine by AutomatedOrdered By: Jani Aguilera on 12-02-2023 Leukocyte clumps Auto Ql (U) Occasional [LPF] High None Seen [facility] Leukocyte esterase [Presence ] in Urine by Test stripOrdered By: Jani Aguilera on 12-02-2023 Leukocyte esterase Test strip Ql (U) 3+ High Negative [facility] Comment on above: Order Comment: Name Collection Type:: Clean-Voided Midstream Performed By: #### M G, RENAL, CUU, [id number], CBCNO, URIC, ADDONUAPLUS, PROCRERAT, PTH #### [facility] [address] Leukocytes [#/area] in Urine sediment by Automated countOrdered By: Jani Aguilera on 12-02-2023 WBC Auto (Urine sed) [#/Area] 10-19 [HPF] High 0-4 [facility] Leukocytes [#/volume] correc jamil for nucleated erythrocytes in Blood by Automated counOrdered By: Jani Aguilera on 12-02-2023 WBC corrected for nucl RBC Auto (Bld) [#/Vol] 6.7 10*3/uL 3.8-11.6 [facility] MCH [Entitic mass] by Automa jamil countOrdered By: Jani Aguilera on 12-02-2023 MCH (RBC) [Entitic mass] 30.1 pg Normal 24.7-34.3 [facility] Comment on above: Performed By: #### M G, RENAL, CUU, [id number], CBCNO, URIC, ADDONUAPLUS, PROCRERAT, PTH #### [facility] [address] MCHC Auto (RBC) [Mass/Vol]Or dered By: Jani Aguilera on 12-02-2023 MCHC (RBC) [Mass/Vol] 33.4 g/dL 32.0-35.0 [facility] MCV [Entitic volume] by Auto mated countOrdered By: Jani Aguilera on 12-02-2023 MCV (RBC) [Entitic vol] 90.3 fL Normal 80-100 [facility] Comment on above: Performed By: #### M G, RENAL, CUU, [id number], CBCNO, URIC, ADDONUAPLUS, PROCRERAT, PTH #### [facility] [address] [place] [address] Magnesium [Mass/volume] in S live or PlasmaOrdered By: Jani Aguilera on 12-02-2023 Magnesium [Mass/Vol] 1.9 mg/dL Normal 1.9-2.7 [facility] Comment on above: Performed By: #### M G, RENAL, CUU, [id number], CBCNO, URIC, ADDONUAPLUS, PROCRERAT, PTH #### [facility] [address] [place] [address] Nitrite Test strip Ql (U)Ord ered By: Jani Aguilera on 12-02-2023 Nitrite Ql (U) Negative Negative [facility] No Panel InformationOrdered By: Jani Aguilera on 12-02-2023 Estimated GFR (CKD-EPI) 50.963 mL/Min [facility] Creatinine Clearance (Chem N/A [facility] Parathyrin.intact [Mass/volu me] in Serum or PlasmaOrdered By: Jani Aguilera on 12-02-2023 Parathyrin.intact [Mass/Vol] 53.6 pg/mL [facility] Parathyroid Hormone Intacton 12-02-2023 Parathyroid Hormone Intact 53.6 pg/mL Normal [facility] Comment on above: Result Comment: PERF ORMED BY: [place] [address] PATHOLOGIST PREFORMS LAMINATOR SHELLI CHARLES M.D. Performed By: #### M G, RENAL, CUU, [id number], CBCNO, URIC, ADDONUAPLUS, PROCRERAT, PTH #### [place] [address] [place] Phosphate [Mass/volume] in S live or PlasmaOrdered By: Jani Willy on 12-02-2023 Phosphate [Mass/Vol] 2.5 mg/dL Normal 2.5-4.5 [facility] Comment on above: Performed By: #### M G, RENAL, CUU, [id number], CBCNO, URIC, ADDONUAPLUS, PROCRERAT, PTH #### [address] Platelet mean volume [Entiti c volume] in Blood by Automated countOrdered By: Jani Willy on 12-02-2023 Platelet mean volume (Bld) [Entitic vol] 9.5 fL Normal 6.3-10.7 [facility] Comment on above: Result Comment: PERF ORMED BY: [place] [address] PATHOLOGIST PREFORMS LAMINATOR SHELLI CHARLES M.D. Performed By: #### M G, RENAL, CUU, [id number], CBCNO, URIC, ADDONUAPLUS, PROCRERAT, PTH #### [place] [address] [place] Platelets [#/volume] in Bloo d by Automated countOrdered By: Jani Willy on 12-02-2023 Platelets (Bld) [#/Vol] 203 10*3/uL Normal 150-450 [facility] Comment on above: Performed By: #### M G, RENAL, CUU, [id number], CBCNO, URIC, ADDONUAPLUS, PROCRERAT, PTH #### [place] [address] [place] Potassium [Moles/volume] in Serum or PlasmaOrdered By: Jani Aguilera on 12-02-2023 Potassium [Moles/Vol] 3.1 mmol/L Low 3.5-5.1 [facility] Comment on above: Performed By: #### M G, RENAL, CUU, [id number], CBCNO, URIC, ADDONUAPLUS, PROCRERAT, PTH #### [address] Protein Creat Ratio Ur Rando mon 12-02-2023 Creatinine, Urine (Random) 105.00 mg/dL Normal [facility] Comment on above: Result Comment: No r eference range established Performed By: #### M G, RENAL, CUU, [id number], CBCNO, URIC, ADDONUAPLUS, PROCRERAT, PTH #### [address] Urine Protein/Creatinine Ratio 124 mg/g{Cre} Normal 0-200 [facility] Comment on above: Result Comment: PERF ORMED BY: [place] [address] PATHOLOGIST PREFORMS LAMINATOR SHELLI CHARLES M.D. Performed By: #### M G, RENAL, CUU, [id number], CBCNO, URIC, ADDONUAPLUS, PROCRERAT, PTH #### [address] Protein Test strip (U) [Mass /Vol]Ordered By: Jani Aguilera on 12-02-2023 Protein (U) [Mass/Vol] Negative Negative [facility] Protein [Mass/volume] in Uri neOrdered By: Jani Aguilera on 12-02-2023 Protein (U) [Mass/Vol] 13 mg/dL High 0-9 [facility] Comment on above: Performed By: #### M G, RENAL, CUU, [id number], CBCNO, URIC, ADDONUAPLUS, PROCRERAT, PTH #### [address] Renal Function Panelon 12-01 Albumin [Mass/Vol] 4.1 g/dL Normal 3.5-5.7 [facility] Comment on above: Performed By: #### M G, RENAL, CUU, [id number], CBCNO, URIC, ADDONUAPLUS, PROCRERAT, PTH #### [facility] [address] GFR/1.73 sq M.predicted MDRD (S/P/Bld) [Vol rate/Area] 50.963 mL/min/{1.73_m2} Normal [facility] Comment on above: Performed By: #### M G, RENAL, CUU, [id number], CBCNO, URIC, ADDONUAPLUS, PROCRERAT, PTH #### [address] Serum or plasma anion gap de terminationOrdered By: Jani Aguilera on 12-02-2023 Anion gap [Moles/Vol] 10.8 mmol/L Normal 6.0-15.0 [facility] Comment on above: Performed By: #### M G, RENAL, CUU, [id number], CBCNO, URIC, ADDONUAPLUS, PROCRERAT, PTH #### [address] Sodium [Moles/volume] in Ser um or PlasmaOrdered By: Jani Aguilera on 12-02-2023 Sodium [Moles/Vol] 141 mmol/L Normal 136-145 [facility] Comment on above: Performed By: #### M G, RENAL, CUU, [id number], CBCNO, URIC, ADDONUAPLUS, PROCRERAT, PTH #### [facility] [address] [place] [address] Specific gravity Test strip (U) [Rel density]Ordered By: Jani Aguilera on 12-02-2023 Specific gravity (U) [Rel density] 1.018 1.001-1.03 0 [facility] Urate [Mass/volume] in Serum or PlasmaOrdered By: Jani Aguilera on 12-02-2023 Urate [Mass/Vol] 7.3 mg/dL High 2.3-6.6 [facility] Comment on above: Performed By: #### B MP, ALT, AST, LIPID #### [facility] [address] Urea nitrogen [Mass/volume] in Serum or PlasmaOrdered By: Jani Willy on 12-02-2023 Urea nitrogen [Mass/Vol] 12 mg/dL Normal 7-25 [facility] Comment on above: Performed By: #### M G, RENAL, CUU, [id number], CBCNO, URIC, ADDONUAPLUS, PROCRERAT, PTH #### [facility] [address] Urine Cultureon 12-02-2023 Bacteria identified Cx Nom (U) 20,000 colonies/ml mixed bacterial skin contaminants 2 Days PERFORMED BY: [place] [address] PATHOLOGIST PREFORMS LAMINATOR SHELLI CHARLES M.D. Normal [facility] Comment on above: Performed By: #### B MP, ALT, AST, LIPID #### [facility] [address] [place] [address] Urine appearanceOrdered By: Jani Aguilera on 12-02-2023 Appearance (U) Clear Normal Clear [facility] Comment on above: Order Comment: Name Collection Type:: Clean-Voided Midstream Performed By: #### M G, RENAL, CUU, [id number], CBCNO, URIC, ADDONUAPLUS, PROCRERAT, PTH #### [facility] [address] Urine protein/creatinine rat ioOrdered By: Jani Willy on 12-02-2023 Protein/Creatinine (U) [Ratio] 124 mg/g{Cre} 0-200 [facility] Urobilinogen Test strip (U) [Mass/Vol]Ordered By: Jani Willy on 12-02-2023 Urobilinogen (U) [Mass/Vol] 2 mg/dL High Normal [facility] Vitamin D 25 Hydroxy Totalon 12-02-2023 Vitamin D 25 Hydroxy Total 41.2 ng/mL Normal 30-100 [facility] Comment on above: Result Comment: FABRICIO MIN D STATUS 25(OH)VITAMIN D RANGE (ng/mL) Deficient <20 Insufficient 20 to <30 Sufficient 30 to 100 Reference: [place] Wells, Alber HERNANDEZ, et al. Evaluation,treatment, and prevention of vitamin D deficiency; an Endocrine Society clinical practice guideline. JCEM. 2010; 96(7):191-. PERFORMED BY: [place] [address] PATHOLOGIST PREFORMS LAMINATOR SHELLI CHARLES M.D. Performed By: #### B MP, ALT, AST, LIPID #### [address] Vitamin D+Metabolites [Mass/ volume] in Serum or PlasmaOrdered By: Jani Aguilera on 12-02-2023 Vitamin D+Metabolites [Mass/Vol] 41.2 ng/mL 30-100 [facility] Comment on above: VITAMIN D STATUS 25( [place])VITAMIN D RANGE (ng/mL) Deficient <20 Insufficient 20 to <30Sufficient 30 to 100Reference: Socorro Wells, Alber HERNANDEZ, et al. Evaluation,treatment, and prevention of vitamin D deficiency; an Endocrine Society clinical practice guideline. JCEM. 2010; 96(7):1911-. pH of Urine by Test stripOrd ered By: Jani Aguilera on 12-02-2023 pH (U) 7.0 [pH] Normal 5.0-9.0 [facility] Comment on above: Order Comment: Name Collection Type:: Clean-Voided Midstream Performed By: #### M G, RENAL, CUU, [id number], CBCNO, URIC, ADDONUAPLUS, PROCRERAT, PTH #### [facility] [address] [place] [address] XR chest 2V*on 11-08-2023 XR chest 2V* [facility] [address] [place] [address] [place] [address] XRay Report Signed Patient: Katarina Camara MR#: [id number] 49 : 1945 Acct:[id number] Age/Sex: 78 / F ADM Date: 11/08/23 Loc: [facility] Room: Type: [facility] Attending Dr: Hilario Gallo DO Copies to: [...] Eloina Camacho M.D.11/08/2023 3:08 PM Dictation Location: [place] [address] Transcribed By: [facility] 11/08/23 1508 Dictated By: Eloina Camacho MD 11/08/23 1507 Signed By: 11/08/23 1508 Normal [facility] CBC W Auto Differential pane l (Bld)on 05-13-2023 Basophils (Bld) [#/Vol] 0.04 10*3/uL Normal <0.11 [facility] Comment on above: Order Comment: Hortencia harper Type: BLOOD SPECIMEN Order[facility] Address: [address] [place] [address] Performed By: #### 5 7021-8 #### [facility] CLIA [id number] [address] [place] [address] Basophils/100 WBC (Bld) 0.7 % Normal [facility] Comment on above: Order Comment: Hortencia harper Type: BLOOD SPECIMEN Ordering Facility: [facility] Address: [address] [place] [address] Performed By: #### 5 7021-8 #### [facility] CLIA [id number] [address] [place] [address] Differential cell count method Nom (Bld) Auto Normal [facility] Comment on above: Order Comment: Speci men Type: BLOOD SPECIMEN Ordering Facility[facility] Address: [address] [place] [address] Performed By: #### 5 7021-8 #### [facility] CLIA [id number] [address] [place] [address] Eosinophils (Bld) [#/Vol] 0.14 10*3/uL Normal <0.46 [facility] Comment on above: Order Comment: Speci men Type: BLOOD SPECIMEN Ordering Facility: [facility] Address: [address] [place] [address] Performed By: #### 5 7021-8 #### [facility] CLIA [id number] [address] [place] [address]1353 Eosinophils/100 WBC (Bld) 2.4 % Normal [facility] Comment on above: Order Comment: Speci men Type: BLOOD SPECIMEN Ordering Facility: [facility] Address: [address] [place] [address] Performed By: #### 5 7021-8 #### [facility] CLIA [id number] [address] [place] [address]605 Erythrocyte distribution width (RBC) [Ratio] 12.6 % Normal 11.5-15.0 [facility] Comment on above: Order Comment: Speci men Type: BLOOD SPECIMEN Order[facility] Address: [address] [place] [address] Performed By: #### 5 7021-8 #### [facility] CLIA [id number] [address] [place] [address] 47688 Hematocrit (Bld) [Volume fraction] 46.9 % High 36.0-46.0 [facility] Comment on above: Order Comment: Speci men Type: BLOOD SPECIMEN Ordering Facility[facility] Address: [address] [place] [address] Performed By: #### 5 7021-8 #### [facility] CLIA [id number] [address] [place] [address]32 Hemoglobin (Bld) [Mass/Vol] 15.2 g/dL Normal 11.5-15.5 [facility] Comment on above: Order Comment: Speci men Type: BLOOD SPECIMEN [facility] Address: [address] [place] [address] Performed By: #### 5 7021-8 #### [facility] CLIA [id number] [address] [place] [address] 79934 Immature granulocytes (Bld) [#/Vol] 10*3/uL Normal <0.10 [facility] Comment on above: Order Comment: Speci men Type: BLOOD SPECIMEN [facility] Address: [address] [place] [address] Performed By: #### 5 7021-8 #### [facility] CLIA [id number] [address] [place] [address] 69355 Immature granulocytes/100 WBC (Bld) 0.2 % Normal [facility] Comment on above: Order Comment: Speci men Type: BLOOD SPECIMEN Order[facility] Address: [address] [place] [address] Performed By: #### 5 7021-8 #### [facility] CLIA [id number] [address] [place] [address] 51162 Lymphocytes (Bld) [#/Vol] 1.77 10*3/uL Normal 1.00-4.00 [facility] Comment on above: Order Comment: Speci men Type: BLOOD SPECIMEN [facility] Address: [address] [place] [address] Performed By: #### 5 7021-8 #### [facility] CLIA [id number] [address] [place] [address] 20025 Lymphocytes/100 WBC (Bld) 30.6 % Normal [facility] Comment on above: Order Comment: Speci men Type: BLOOD SPECIMEN Order[facility] Address: [address] [place] [address] Performed By: #### 5 7021-8 #### [facility] CLIA [id number] [address] [place] [address] MCH (RBC) [Entitic mass] 29.4 pg Normal 26.0-34.0 [facility] Comment on above: Order Comment: Speci men Type: BLOOD SPECIMEN Ordering Facility[facility] Address: [address] [place] [address] Performed By: #### 5 7021-8 #### [facility] CLIA [id number] [address] [place] [address] 41827 MCHC (RBC) [Mass/Vol] 32.4 g/dL Normal 30.5-36.0 [facility] Comment on above: Order Comment: Speci men Type: BLOOD SPECIMEN Order[facility] Address: [address] [place] [address] Performed By: #### 5 7021-8 #### [facility] CLIA [id number] [address] [place] [address]508 MCV (RBC) [Entitic vol] 90.7 fL Normal 80.0-100.0 [facility] Comment on above: Order Comment: Speci men Type: BLOOD SPECIMEN Ordering Facility[facility] Address: [address] [place] [address] Performed By: #### 5 7021-8 #### [facility] CLIA [id number] [address] [place] [address] 74866 Monocytes (Bld) [#/Vol] 0.50 10*3/uL Normal <0.87 [facility] Comment on above: Order Comment: Speci men Type: BLOOD SPECIMEN [facility] Address: [address] [place] [address] Performed By: #### 5 7021-8 #### [facility] CLIA [id number] [address] [place] [address] 51820 Monocytes/100 WBC (Bld) 8.6 % Normal [facility] Comment on above: Order Comment: Speci men Type: BLOOD SPECIMEN Order[facility] Address: [address] [place] [address] Performed By: #### 5 7021-8 #### [facility] CLIA [id number] [address] [place] [address] 81669 Neutrophils (Bld) [#/Vol] 3.33 10*3/uL Normal 1.45-7.50 [facility] Comment on above: Order Comment: Speci men Type: BLOOD SPECIMEN [facility] Address: [address] [place] [address] Performed By: #### 5 7021-8 #### [facility] CLIA [id number] [address] [place] [address] 70873 Neutrophils/100 WBC (Bld) 57.5 % Normal [facility] Comment on above: Order Comment: Speci men Type: BLOOD SPECIMEN [facility] Address: [address] [place] [address] Performed By: #### 5 7021-8 #### [facility] CLIA [id number] [address] [place] [address] 44970 Nucleated RBC (Bld) [#/Vol] 10*3/uL Normal <0.01 [facility] Comment on above: Order Comment: Speci men Type: BLOOD SPECIMEN [facility] Address: [address] [place] [address] Performed By: #### 5 7021-8 #### [facility] CLIA [id number] [address] [place] [address] 12594 Nucleated RBC/100 WBC (Bld) [Ratio] 0.0 /100 WBC Normal [facility] Comment on above: Order Comment: Speci men Type: BLOOD SPECIMEN [facility] Address: [address] [place] [address] Performed By: #### 5 7021-8 #### [facility] CLIA [id number] [address] [place] [address] Platelet mean volume (Bld) [Entitic vol] 10.4 fL Normal 9.0-12.7 [facility] Comment on above: Order Comment: Speci men Type: BLOOD SPECIMEN [facility] Address: [address] [place] [address] Performed By: #### 5 7021-8 #### [facility] CLIA [id number] [address] [place] [address] 22436 Platelets (Bld) [#/Vol] 216 10*3/uL Normal 150-400 [facility] Comment on above: Order Comment: Speci men Type: BLOOD SPECIMEN [facility] Address: [address] [place] [address] Performed By: #### 5 7021-8 #### [facility] CLIA [id number] [address] [place] [address] 41878 RBC (Bld) [#/Vol] 5.17 10*6/uL Normal 3.90-5.20 [facility] Comment on above: Order Comment: Speci men Type: BLOOD SPECIMEN [facility] Address: [address] [place] [address] Performed By: #### 5 7021-8 #### [facility] CLIA [id number] [address] [place] [address] 10278 WBC (Bld) [#/Vol] 5.79 10*3/uL Normal 3.70-11.00 [facility] Comment on above: Order Comment: Speci men Type: BLOOD SPECIMEN [facility] Address: [address] [place] [address] Performed By: #### 5 7021-8 #### [facility] CLIA [id number] [address] [place] [address] 10499 Basophils (Bld) [#/Vol] 0.04 10*3/uL <0.11 k/uL [facility] Basophils/100 WBC (Bld) 0.7 % [facility] Differential cell count method Nom (Bld) Auto [facility] Eosinophils (Bld) [#/Vol] 0.14 10*3/uL <0.46 k/uL [facility] Eosinophils/100 WBC (Bld) 2.4 % [facility] Erythrocyte distribution width (RBC) [Ratio] 12.6 % 11.5 - 15.0 % [facility] Hematocrit (Bld) [Volume fraction] 46.9 % High 36.0 - 46.0 % [facility] Hemoglobin (Bld) [Mass/Vol] 15.2 g/dL 11.5 - 15.5 g/dL [facility] Immature granulocytes (Bld) [#/Vol] <0.10 k/uL [facility] Immature granulocytes/100 WBC (Bld) 0.2 % [facility] Lymphocytes (Bld) [#/Vol] 1.77 10*3/uL 1.00 - 4.00 k/uL [facility] Lymphocytes/100 WBC (Bld) 30.6 % [facility] MCH (RBC) [Entitic mass] 29.4 pg 26.0 - 34.0 pg [facility] MCHC (RBC) [Mass/Vol] 32.4 g/dL 30.5 - 36.0 g/dL [facility] MCV (RBC) [Entitic vol] 90.7 fL 80.0 - 100.0 fL [facility] Monocytes (Bld) [#/Vol] 0.50 10*3/uL <0.87 k/uL [facility] Monocytes/100 WBC (Bld) 8.6 % [facility] Neutrophils (Bld) [#/Vol] 3.33 10*3/uL 1.45 - 7.50 k/uL [facility] Neutrophils/100 WBC (Bld) 57.5 % [facility] Nucleated RBC (Bld) [#/Vol] <0.01 k/uL [facility] Nucleated RBC/100 WBC (Bld) [Ratio] 0.0 /100 WBC [facility] Platelet mean volume (Bld) [Entitic vol] 10.4 fL 9.0 - 12.7 fL [facility] Platelets (Bld) [#/Vol] 216 10*3/uL 150 - 400 k/uL [facility] RBC (Bld) [#/Vol] 5.17 10*6/uL 3.90 - 5.20 m/uL [facility] WBC (Bld) [#/Vol] 5.79 10*3/uL 3.70 - 11.00 k/uL [facility] CNOVSPon 05-13-2023 CNOVSP Visit (SP) Office ([facility]) ----- KATARINA CAMARA ([id number]) 1945 F Date Time Provider Department 05/13/23 [...] biopsy completed 02/2016 noted invasive ductal carcinoma ER/WV positive, HER2 negative. : Lumpectomy completed 03/21/16 noted grade 2 invasive ductal carcinoma, DCIS grade 2, 14 mm : Margins negative (discussed with the pathologist who assured negative margins but that the anterior margin was within 1.0mm anteriorly). : Robeline lymph node was positive for involvement. 06/25/16 [...] takes it. She is working at a [employer] program with [employer]. PAST MEDICAL HISTORY Diagnosis Date CHF (congestive heart failure) (HCC) Diabetes mellitus (HCC) Fibromyalgia Hypertension Hypothyroidism Invasive ductal carcinoma of right breast (HCC) ER/WV+ HER2- PAST SURGICAL HISTORY Procedure Laterality Date [...] anxiety Cardiovasc (more content not included)... Normal [facility] Comprehensive metabolic 2000 panelon 05-13-2023 Albumin [Mass/Vol] 4.7 g/dL Normal 3.9-4.9 [facility] Comment on above: Order Comment: Speci men Type: BLOOD SPECIMEN [facility] Address: [address] [place] [address] Performed By: #### 2 4323-8 #### [facility] CLIA [id number] [address] [place] [address] 38252 ALP [Catalytic activity/Vol] 77 U/L Normal 34-123 [facility] Comment on above: Order Comment: Speci men Type: BLOOD SPECIMEN Order[facility] Address: [address] [place] [address] Performed By: #### 2 4323-8 #### [facility] CLIA [id number] [address] [place] [address] 00290 ALT [Catalytic activity/Vol] 19 U/L Normal 7-38 [facility] Comment on above: Order Comment: Speci men Type: BLOOD SPECIMEN [facility] Address: [address] [place] [address] Performed By: #### 2 4323-8 #### [facility] CLIA [id number] [address] [place] [address] Anion gap [Moles/Vol] 12 mmol/L Normal 9-18 [facility] Comment on above: Order Comment: Speci men Type: BLOOD SPECIMEN [facility] Address: [address] [place] [address] Performed By: #### 2 4323-8 #### [facility] CLIA [id number] [address] [place] [address] 40170 AST [Catalytic activity/Vol] 24 U/L Normal 13-35 [facility] Comment on above: Order Comment: Speci men Type: BLOOD SPECIMEN [facility] Address: [address] [place] [address] Performed By: #### 2 4323-8 #### [facility] CLIA [id number] [address] [place] [address] 90676 Bilirubin [Mass/Vol] 1.2 mg/dL Normal 0.2-1.3 [facility] Comment on above: Order Comment: Speci men Type: BLOOD SPECIMEN [facility] Address: [address] [place] [address] Performed By: #### 2 4323-8 #### [facility] CLIA [id number] [address] [place] [address] Calcium [Mass/Vol] 10.1 mg/dL Normal 8.5-10.2 [facility] Comment on above: Order Comment: Speci men Type: BLOOD SPECIMEN [facility] Address: [address] [place] [address] Performed By: #### 2 4323-8 #### [facility] CLIA [id number] [address] [place] [address] Chloride [Moles/Vol] 100 mmol/L Normal 97-105 [facility] Comment on above: Order Comment: Speci men Type: BLOOD SPECIMEN [facility] Address: [address] [place] [address] Performed By: #### 2 4323-8 #### [facility] CLIA [id number] [address] [place] [address] CO2 [Moles/Vol] 30 mmol/L Normal 22-30 [facility] Comment on above: Order Comment: Speci men Type: BLOOD SPECIMEN [facility] Address: [address] [place] [address] Performed By: #### 2 4323-8 #### [facility] CLIA [id number] [address] [place] [address] Creatinine [Mass/Vol] 1.18 mg/dL High 0.58-0.96 [facility] Comment on above: Order Comment: Speci men Type: BLOOD SPECIMEN [facility] Address: [address] [place] [address] Performed By: #### 2 4323-8 #### [facility] CLIA [id number] [address] [place] [address] Creatinine and Glomerular filtration rate.predicted panel (S/P/Bld) 48 mL/min/1.73m??? Low >=60 [facility] Comment on above: Order Comment: Speci men Type: BLOOD SPECIMEN [facility] Address: [address] [place] [address] Result Comment: Cathy mated Glomerular Filtration Rate [...] GFR. Performed By: #### 2 4323-8 #### [facility] CLIA [id number] [address] [place] [address] Glucose [Mass/Vol] 120 mg/dL High 74-99 [facility] Comment on above: Order Comment: Speci men Type: BLOOD SPECIMEN [facility] Address: [address] [place], [place] [address] Result Comment: The [place] [employer] (ADA) provides guidance for cutoff [...] Standards of Medical Care in Diabetes 2016, [place] [employer]. Diabetes Care. 2016.39(Suppl 1). Performed By: #### 2 4323-8 #### [facility] CLIA [id number] [address] [place] [address]69 Potassium [Moles/Vol] 3.5 mmol/L Low 3.7-5.1 [facility] Comment on above: Order Comment: Speci men Type: BLOOD SPECIMEN [facility] Address: [address] [place] [address] Performed By: #### 2 4323-8 #### [facility] CLIA [id number] [address] [place] [address] 12600 Protein [Mass/Vol] 7.1 g/dL Normal 6.3-8.0 [facility] Comment on above: Order Comment: Speci men Type: BLOOD SPECIMEN [facility] Address: [address] [place] [address] Performed By: #### 2 4323-8 #### [facility] CLIA [id number] [address] [place] [address] 45085 Sodium [Moles/Vol] 142 mmol/L Normal 136-144 [facility] Comment on above: Order Comment: Speci men Type: BLOOD SPECIMEN [facility] Address: [address] [place] [address] Performed By: #### 2 4323-8 #### [facility] CLIA [id number] [address] [place] [address] Urea nitrogen [Mass/Vol] 12 mg/dL Normal 7-21 [facility] Comment on above: Order Comment: Speci men Type: BLOOD SPECIMEN [facility] Address: [address] [place] [address] Performed By: #### 2 4323-8 #### [facility] CLIA [id number] [address] [place] [address] 15335 Albumin [Mass/Vol] 4.7 g/dL 3.9 - 4.9 g/dL [facility] ALP [Catalytic activity/Vol] 77 U/L 34 - 123 U/L [facility] ALT [Catalytic activity/Vol] 19 U/L 7 - 38 U/L [facility] Anion gap [Moles/Vol] 12 mmol/L 9 - 18 mmol/L [facility] AST [Catalytic activity/Vol] 24 U/L 13 - 35 U/L [facility] Bilirubin [Mass/Vol] 1.2 mg/dL 0.2 - 1 .3 mg/dL [facility] Calcium [Mass/Vol] 10.1 mg/dL 8.5 - 10. 2 mg/dL [facility] Chloride [Moles/Vol] 100 mmol/L 97 - 10 5 mmol/L [facility] CO2 [Moles/Vol] 30 mmol/L 22 - 30 mmol/L [facility] Creatinine [Mass/Vol] 1.18 mg/dL High 0.58 - 0.96 mg/dL [facility] Estimated Glomerular Filtration Rate 48 mL/min/1.73m Low >=60 mL/min/1.7 3m [facility] Glucose [Mass/Vol] 120 mg/dL High 74 - 99 mg/dL [facility] Potassium [Moles/Vol] 3.5 mmol/L Low 3.7 - 5.1 mmol/L [facility] Protein [Mass/Vol] 7.1 g/dL 6.3 - 8.0 g/dL [facility] Sodium [Moles/Vol] 142 mmol/L 136 - 144 mmol/L [facility] Urea nitrogen [Mass/Vol] 12 mg/dL 7 - 21 mg/dL [facility] CNPNon 05-06-2023 CNPN Telephone ([facility]) ----- KATARINA CAMARA ([id number]) 1945 F Date Time Provider Department 05/06/23 [...] Z17.0] Order(s):COMP METABOLIC PANEL [SQCMP] Order #: [id number] FUTURE CBC + DIFF [SQCBCDIF] Order #: [id number] FUTURE Prescriptions as of 05/14/2023 - indapamide [...] cancer [Z85.3] 03/28/2018 Encounter Status:Closed by TAYLOR BARNETT on 05/14/23 Normal [facility] Alanine aminotransferase [En zymatic activity/volume] in Serum or PlasmaOrdered By: Nani Calloway on 04-16-2023 ALT [Catalytic activity/Vol] 16 U/L Normal 7 [facility] Comment on above: Performed By: #### B MP, ALT, AST, LIPID #### [facility] [address] Aspartate aminotransferase [ Enzymatic activity/volume] in Serum or PlasmaOrdered By: Nani Calloway on 04-16-2023 AST [Catalytic activity/Vol] 21 U/L Normal 13-39 [facility] Comment on above: Performed By: #### B MP, ALT, AST, LIPID #### [facility] [address] Basic Metabolic Panelon 04-04 GFR/1.73 sq M.predicted MDRD (S/P/Bld) [Vol rate/Area] 55.410 mL/min/{1.73_m2} Normal [facility] Comment on above: Performed By: #### B MP, ALT, AST, LIPID #### [facility] [address] [place] [address] Calcium [Mass/volume] in Ser um or PlasmaOrdered By: Nani Calloway on 04-16-2023 Calcium [Mass/Vol] 9.9 mg/dL Normal 8.6-10.3 [facility] Comment on above: Performed By: #### B MP, ALT, AST, LIPID #### [facility] [address] [place] [address] Carbon dioxide, total [Moles /volume] in Serum or PlasmaOrdered By: Nani Calloway on 04-16-2023 CO2 [Moles/Vol] 33.6 mmol/L High 21.0-31.0 [facility] Comment on above: Performed By: #### B MP, ALT, AST, LIPID #### [facility] [address] [place] [address] [place] Chloride [Moles/volume] in S live or PlasmaOrdered By: Nani Calloway on 04-16-2023 Chloride [Moles/Vol] 99 mmol/L Normal 98-107 [facility] Comment on above: Performed By: #### B MP, ALT, AST, LIPID #### [facility] [address] [place] [address] Cholesterol [Mass/volume] in Serum or PlasmaOrdered By: Nani Calloway on 04-16-2023 Cholesterol [Mass/Vol] 139 mg/dL Low 140-200 [facility] Comment on above: Chol less than 200 m g/dl low riskChol 201-239 mg/dl borderline riskChol 240 mg/dl and greater high risk Result Comment: Chol less than 200 mg/dl low risk Chol 201-239 mg/dl borderline risk Chol 240 mg/dl and greater high risk Performed By: #### B MP, ALT, AST, LIPID #### [facility] [address] Cholesterol in LDL Calc [Mas s/Vol]Ordered By: Nani Calloway on 04-16-2023 Cholesterol in LDL [Mass/Vol] 52 mg/dL 0-100 [facility] Comment on above: LDL ATP III CLASSIFI CATIONLDL less than 100 mg/dL OptimalLDL 100-129 mg/dL Near or above optimalLDL 130-159 mg/dL Borderline highLDL 160-189 mg/dL HighLDL greater than 189 mg/dL Very high Cholesterol in VLDL Calc [Ma ss/Vol]Ordered By: Nani Calloway on 04-16-2023 Cholesterol in VLDL [Mass/Vol] 42 mg/dL [facility] Creatinine [Mass/volume] in Serum or PlasmaOrdered By: Nani Calloway on 04-16-2023 Creatinine [Mass/Vol] 1.05 mg/dL Normal 0.60-1.20 [facility] Comment on above: Performed By: #### B MP, ALT, AST, LIPID #### [facility] [address] Glucose [Mass/volume] in Ser um or PlasmaOrdered By: Nani Calloway on 04-16-2023 Glucose [Mass/Vol] 112 mg/dL High 70-100 [facility] Comment on above: ADA recommended refe rence rangeRandom Glucose Reference Range is dependent on time and content of last meal. Glucose of more than 200 mg/dL in a nonstressed, ambulatory subject supports the diagnosis of Diabetes Mellitus. Result Comment: [place] om Glucose Reference Range is dependent on time and content of last meal. Glucose of more than 200 mg/dL in a nonstressed, ambulatory subject supports the diagnosis of Diabetes Mellitus. ADA recommended reference range Performed By: #### B MP, ALT, AST, LIPID #### [facility] [address] Lipid Panelon 04-16-2023 LDL Cholesterol,Calculated 52 mg/dL Normal 0-100 [facility] Comment on above: Result Comment: LDL ATP III CLASSIFICATION LDL less than 100 mg/dL Optimal LDL 100-129 mg/dL Near or above optimal LDL 130-159 mg/dL Borderline high LDL 160-189 mg/dL High LDL greater than 189 mg/dL Very high Performed By: #### B MP, ALT, AST, LIPID #### [facility] [address] Triglyceride w/Reflex 212 mg/dL High 0-149 [facility] Comment on above: Result Comment: TRIG ATP III CLASSIFICATION TRIG less than 150 mg/dL Normal TRIG 150-199 mg/dL Borderline high TRIG 200-500 mg/dL High TRIG greater than 500 mg/dL Very high Standard traceable to the Center for Disease Conrtrol and Prevention (CDC) test method. Performed By: #### B MP, ALT, AST, LIPID #### [facility] [address] [place] [address] VLDL CHOLESTEROL 42 mg/dL Normal [facility] Comment on above: Performed By: #### B MP, ALT, AST, LIPID #### [facility] [address] [place] [address] No Panel InformationOrdered By: Nani Calloway on 04-16-2023 Estimated GFR (CKD-EPI) 55.410 mL/Min [facility] Creatinine Clearance (Chem N/A [facility] Potassium [Moles/volume] in Serum or PlasmaOrdered By: Nani Calloway on 04-16-2023 Potassium [Moles/Vol] 4.0 mmol/L Normal 3.5-5.1 [facility] Comment on above: Performed By: #### B MP, ALT, AST, LIPID #### [facility] [address] Serum or plasma anion gap de terminationOrdered By: Nani Calloway on 04-16-2023 Anion gap [Moles/Vol] 10.4 mmol/L Normal 6.0-15.0 [facility] Comment on above: Performed By: #### B MP, ALT, AST, LIPID #### [facility] [address] Serum or plasma high density lipoprotein (HDL) cholesterol measurementOrdered By: Nani Calloway on 04-16-2023 Cholesterol in HDL [Mass/Vol] 45 mg/dL Normal 23-92 [facility] Comment on above: HDL CHOL ATP-III CLA SSIFICATION Cardiovascular RiskHDL > or equal to 60 mg/dL LOWHDL < 40 mg/dL HIGH Result Comment: HDL CHOL ATP-III CLASSIFICATION Cardiovascular Risk HDL > or equal to 60 mg/dL LOW HDL < 40 mg/dL HIGH Performed By: #### B MP, ALT, AST, LIPID #### [facility] [address] Serum or plasma total choles terol/high density lipoprotein (HDL) cholesterol mass ratOrdered By: Nani Calloway on 04-16-2023 Cholesterol.total/Chol esterol in HDL [Mass ratio] 3.1 {ratio} Normal <5.0 [facility] Comment on above: Result Comment: PERF ORMED BY: [place] [address] PATHOLOGIST PREFORMS LAMINATOR SHELLI CHARLES M.D. Performed By: #### B MP, ALT, AST, LIPID #### [address] Sodium [Moles/volume] in Ser um or PlasmaOrdered By: Nani Calloway on 04-16-2023 Sodium [Moles/Vol] 139 mmol/L Normal 136-145 [facility] Comment on above: Performed By: #### B MP, ALT, AST, LIPID #### [facility] [address] Triglyceride [Mass/volume] i n Serum or PlasmaOrdered By: Nani Calloway on 04-16-2023 Triglyceride [Mass/Vol] 212 mg/dL 0-149 [facility] Comment on above: TRIG ATP III CLASSIF ICATIONTRIG less than 150 mg/dL NormalTRIG 150-199 mg/dL Borderline highTRIG 200-500 mg/dL High TRIG greater than 500 mg/dL Very highStandard traceable to the Center for Disease Conrtrol and Prevention (CDC) test method. Urea nitrogen [Mass/volume] in Serum or PlasmaOrdered By: Nani Calloway on 04-16-2023 Urea nitrogen [Mass/Vol] 16 mg/dL Normal 7-25 [facility] Comment on above: Performed By: #### B MP, ALT, AST, LIPID #### [facility] [address] Alanine aminotransferase [En zymatic activity/volume] in Serum or PlasmaOrdered By: Tamiko Zhou on 01-18-2023 ALT [Catalytic activity/Vol] 12 U/L 7-52 [facility] Albumin [Mass/volume] in Ser um or Plasma by Bromocresol green (BCG) dye binding methoOrdered By: aTmiko Zhou on 01-18-2023 Albumin BCG dye [Mass/Vol] 3.6 g/dL 3.5-5.7 [facility] Alkaline phosphatase [Enzyma tic activity/volume] in Serum or PlasmaOrdered By: Tamiko Zhou on 01-18-2023 ALP [Catalytic activity/Vol] 59 U/L 34-104 [facility] Aspartate aminotransferase [ Enzymatic activity/volume] in Serum or PlasmaOrdered By: Tamiko Zhou on 01-18-2023 AST [Catalytic activity/Vol] 18 U/L 13-39 [facility] Bilirubin.total [Mass/volume ] in Serum or PlasmaOrdered By: Tamiko Zhou on 01-18-2023 Bilirubin [Mass/Vol] 1.1 mg/dL 0.3-1.0 [facility] Calcium [Mass/volume] in Ser um or PlasmaOrdered By: Tamiko Zhou on 01-18-2023 Calcium [Mass/Vol] 8.1 mg/dL 8.6-10.3 [facility] Carbon dioxide, total [Moles /volume] in Serum or PlasmaOrdered By: Tamiko Zhou on 01-18-2023 CO2 [Moles/Vol] 27.6 mmol/L 21.0-31.0 [facility] Chloride [Moles/volume] in S live or PlasmaOrdered By: Tamiko Zhou on 01-18-2023 Chloride [Moles/Vol] 101 mmol/L 98-107 [facility] Creatinine [Mass/volume] in Serum or PlasmaOrdered By: Tamiko Zhou on 01-18-2023 Creatinine [Mass/Vol] 0.84 mg/dL 0.60-1.20 [facility] Globulin Calc (S) [Mass/Vol] Ordered By: Tamiko Zhou on 01-18-2023 Globulin (S) [Mass/Vol] 2.1 g/dL [facility] Glucose [Mass/volume] in Ser um or PlasmaOrdered By: Tamiko Zhou on 01-18-2023 Glucose [Mass/Vol] 115 mg/dL 70-100 [facility] Comment on above: ADA recommended refe rence rangeRandom Glucose Reference Range is dependent on time and content of last meal. Glucose of more than 200 mg/dL in a nonstressed, ambulatory subject supports the diagnosis of Diabetes Mellitus. No Panel InformationOrdered By: Tamiko Zhou on 01-18-2023 Estimated GFR (CKD-EPI) > 60.0 mL/Min [facility] Creatinine Clearance (Chem 64.28 [facility] Potassium [Moles/volume] in Serum or PlasmaOrdered By: Tamiko Zhou on 01-18-2023 Potassium [Moles/Vol] 3.3 mmol/L 3.5-5.1 [facility] Protein [Mass/volume] in Ser um or PlasmaOrdered By: Tamiko Zhou on 01-18-2023 Protein [Mass/Vol] 5.7 g/dL 6.4-8.9 [facility] Serum or plasma albumin/glob ulin mass ratioOrdered By: Tamiko Zhou on 01-18-2023 Albumin/Globulin [Mass ratio] 1.7 {ratio} [facility] Serum or plasma anion gap de terminationOrdered By: Tamiko Zhou on 01-18-2023 Anion gap [Moles/Vol] 10.7 mmol/L 6.0-15.0 [facility] Sodium [Moles/volume] in Ser um or PlasmaOrdered By: Tamiko Zhou on 01-18-2023 Sodium [Moles/Vol] 136 mmol/L 136-145 [facility] Troponin I.cardiac [Mass/vol ume] in Serum or Plasma by Detection limit <= 0.01 ng/Ordered By: Tamiko Zhou on 01-18-2023 Troponin I.cardiac DL <= 0.01 ng/mL [Mass/Vol] 91.0 pg/mL 0.0-15.0 [facility] Comment on above: Critical Result : Ca lled to and read back by: QUIANA HUERTA at: 01/18/2023 07:02:29 by:[id number] Urea nitrogen [Mass/volume] in Serum or PlasmaOrdered By: Tamiko Zhou on 01-18-2023 Urea nitrogen [Mass/Vol] 7 mg/dL 7-25 [facility] Hematocrit Auto (Bld) [Volum e fraction]Ordered By: Tamiko Zhou on 01-17-2023 Hematocrit (Bld) [Volume fraction] 40.6 % 34.0-46.4 [facility] Hemoglobin [Mass/volume] in BloodOrdered By: Tamiko Zhou on 01-17-2023 Hemoglobin (Bld) [Mass/Vol] 13.4 g/dL 11.8-15.4 [facility] Activated partial thrombopla stin time (aPTT) in platelet poor plasma by coagulation aOrdered By: Nani Calloway on 01-15-2023 aPTT Coag (PPP) [Time] 26.9 s 25.1-36.5 [facility] Comment on above: A hematocrit value g reater than 55% may lead to inaccurate results in coagulation testing. Patients having hematocrit values >55% require a special collection tube for coagulation studies. Please contact the laboratory at [phone] for redraw instructions. Basophils Auto (Bld) [#/Vol] Ordered By: Nani Calloway on 01-15-2023 Basophils (Bld) [#/Vol] 0.0 10*3/uL 0.0-0.2 [facility] Basophils/100 WBC Auto (Bld) Ordered By: Nani Calloway on 01-15-2023 Basophils/100 WBC (Bld) 0.6 % . [facility] Carbon dioxide, total [Moles /volume] in Serum or PlasmaOrdered By: Nani Calloway on 01-15-2023 CO2 [Moles/Vol] 29.9 mmol/L 21.0-31.0 [facility] Chloride [Moles/volume] in S live or PlasmaOrdered By: Nani Calloway on 01-15-2023 Chloride [Moles/Vol] 105 mmol/L 98-107 [facility] Cholesterol [Mass/volume] in Serum or PlasmaOrdered By: Nani Calloway on 01-15-2023 Cholesterol [Mass/Vol] 155 mg/dL 140-200 [facility] Comment on above: Chol less than 200 m g/dl low riskChol 201-239 mg/dl borderline riskChol 240 mg/dl and greater high risk Cholesterol in LDL Calc [Mas s/Vol]Ordered By: Nani Calloway on 01-15-2023 Cholesterol in LDL [Mass/Vol] 70 mg/dL 0-100 [facility] Comment on above: LDL ATP III CLASSIFI CATIONLDL less than 100 mg/dL OptimalLDL 100-129 mg/dL Near or above optimalLDL 130-159 mg/dL Borderline highLDL 160-189 mg/dL HighLDL greater than 189 mg/dL Very high Cholesterol in VLDL Calc [Ma ss/Vol]Ordered By: Nani Calloway on 01-15-2023 Cholesterol in VLDL [Mass/Vol] 32 mg/dL [facility] Creatinine [Mass/volume] in Serum or PlasmaOrdered By: Nani Calloway on 01-15-2023 Creatinine [Mass/Vol] 1.02 mg/dL 0.60-1.20 [facility] Eosinophils Auto (Bld) [#/Vo l]Ordered By: Nani Calloway on 01-15-2023 Eosinophils (Bld) [#/Vol] 0.2 10*3/uL 0.0-0.45 [facility] Eosinophils/100 WBC Auto (Bl d)Ordered By: Nani Calloway on 01-15-2023 Eosinophils/100 WBC (Bld) 2.5 % . [facility] Erythrocyte distribution wid th Auto (RBC) [Ratio]Ordered By: Nani Calloway on 01-15-2023 Erythrocyte distribution width (RBC) [Ratio] 14.4 % 11.9-15.3 [facility] Hematocrit Auto (Bld) [Volum e fraction]Ordered By: Nani Calloway on 01-15-2023 Hematocrit (Bld) [Volume fraction] 41.4 % 34.0-46.4 [facility] Hemoglobin [Mass/volume] in BloodOrdered By: Nani Calloway on 01-15-2023 Hemoglobin (Bld) [Mass/Vol] 13.8 g/dL 11.8-15.4 [facility] INR in Platelet poor plasma by Coagulation assayOrdered By: Nani Calloway on 01-15-2023 INR Coag (PPP) [Relative time] 0.9 {INR} [facility] Comment on above: INR Therapeutic Rang e [...] RBC Auto (Bld) [#/Vol] 7.0 10*3/uL 3.8-11.6 [facility] Lymphocytes Auto (Bld) [#/Vo l]Ordered By: Nani Calloway on 01-15-2023 Lymphocytes (Bld) [#/Vol] 1.6 10*3/uL 1.00-4.8 [facility] Lymphocytes/100 WBC Auto (Bl d)Ordered By: Nani Calloway on 01-15-2023 Lymphocytes/100 WBC (Bld) 22.8 % . [facility] MCH Auto (RBC) [Entitic mass ]Ordered By: Nani Calloway on 01-15-2023 MCH (RBC) [Entitic mass] 30.5 pg 24.7-34.3 [facility] MCHC Auto (RBC) [Mass/Vol]Or dered By: Nani Calloway on 01-15-2023 MCHC (RBC) [Mass/Vol] 33.4 g/dL 32.0-35.0 [facility] MCV Auto (RBC) [Entitic vol] Ordered By: Nani Calloway on 01-15-2023 MCV (RBC) [Entitic vol] 91.4 fL 80-100 [facility] Monocytes Auto (Bld) [#/Vol] Ordered By: Nani Calloway on 01-15-2023 Monocytes (Bld) [#/Vol] 0.6 10*3/uL 0.0-0.8 [facility] Monocytes/100 WBC Auto (Bld) Ordered By: Nani Calloway on 01-15-2023 Monocytes/100 WBC (Bld) 8.3 % . [facility] Neutrophils Auto (Bld) [#/Vo l]Ordered By: Nani Calloway on 01-15-2023 Neutrophils (Bld) [#/Vol] 4.6 10*3/uL 1.8-7.7 [facility] Neutrophils/100 WBC Auto (Bl d)Ordered By: Nani Calloway on 01-15-2023 Neutrophils/100 WBC (Bld) 65.8 % . [facility] No Panel InformationOrdered By: Nani Calloway on 01-15-2023 Estimated GFR (CKD-EPI) 57.371 mL/Min [facility] Creatinine Clearance (Chem N/A [facility] Nucleated erythrocytes [Pres ence] in Blood by Automated countOrdered By: Nani Calloway on 01-15-2023 Nucleated RBC Auto Ql (Bld) 0.2 /100{WBC} 0-0.5 [facility] Platelet mean volume Auto (B ld) [Entitic vol]Ordered By: Nani Calloway on 01-15-2023 Platelet mean volume (Bld) [Entitic vol] 8.8 fL 6.3-10.7 [facility] Platelets Auto (Bld) [#/Vol] Ordered By: Nani Calloway on 01-15-2023 Platelets (Bld) [#/Vol] 181 10*3/uL 150-450 [facility] Potassium [Moles/volume] in Serum or PlasmaOrdered By: Nani Calloway on 01-15-2023 Potassium [Moles/Vol] 4.0 mmol/L 3.5-5.1 [facility] Prothrombin time (PT)Ordered By: Nani Calloway on 01-15-2023 PT Coag (PPP) [Time] 10.3 s 9.0-12.9 [facility] Comment on above: A hematocrit value g reater than 55% may lead to inaccurate results in coagulation testing. Patients having hematocrit values >55% require a special collection tube for coagulation studies. Please contact the laboratory at [phone] for redraw instructions. RBC Auto (Bld) [#/Vol]Ordere d By: Nani Calloway on 01-15-2023 RBC (Bld) [#/Vol] 4.53 10*6/uL 3.60-5.00 [facility] Serum or plasma anion gap de terminationOrdered By: Nani Calloway on 01-15-2023 Anion gap [Moles/Vol] 9.1 mmol/L 6.0-15.0 [facility] Serum or plasma high density lipoprotein (HDL) cholesterol measurementOrdered By: Nani Calloway on 01-15-2023 Cholesterol in HDL [Mass/Vol] 53 mg/dL 23-92 [facility] Comment on above: HDL CHOL ATP-III CLA SSIFICATION Cardiovascular RiskHDL > or equal to 60 mg/dL LOWHDL < 40 mg/dL HIGH Serum or plasma total choles terol/high density lipoprotein (HDL) cholesterol mass ratOrdered By: Nani Calloway on 01-15-2023 Cholesterol.total/Chol esterol in HDL [Mass ratio] 2.9 {ratio} <5.0 [facility] Sodium [Moles/volume] in Ser um or PlasmaOrdered By: Nani Calloway on 01-15-2023 Sodium [Moles/Vol] 140 mmol/L 136-145 [facility] Triglyceride [Mass/volume] i n Serum or PlasmaOrdered By: Nani Calloway on 01-15-2023 Triglyceride [Mass/Vol] 161 mg/dL 0-149 [facility] Comment on above: TRIG ATP III CLASSIF ICATIONTRIG less than 150 mg/dL NormalTRIG 150-199 mg/dL Borderline highTRIG 200-500 mg/dL High TRIG greater than 500 mg/dL Very highStandard traceable to the Center for Disease Conrtrol and Prevention (CDC) test method. Urea nitrogen [Mass/volume] in Serum or PlasmaOrdered By: Nani Calloway on 01-15-2023 Urea nitrogen [Mass/Vol] 9 mg/dL 09-25 [facility] WBC Auto (Bld) [#/Vol]Ordere d By: Nani Calloway on 01-15-2023 WBC (Bld) [#/Vol] 7.0 10*3/uL 3.8-11.6 [facility] CARDIAC STRESS TESTon 2022 Ordered by an unspec ified provider. [facility] ECG 12 Leadon 12-25-2022 ECG reveals normal s inus rhythm with diffuse nonspecific ST and T changes [facility] Work Phone: Consultation Noteon 06-28-19 Consultation Note [id number] Normal [facility] CBC AUTO DIFFon 06-11-2022 BASO # 0.1 103/ul Normal 0.0-0.1 [facility] Comment on above: Performed By: #### C BC #### [facility] [address] [place] [address] Dr. Mag Charles Basophils/100 WBC (Bld) 0.7 % Normal 0.2-2.0 [facility] Comment on above: Performed By: #### C BC #### [facility] [address] [place] [address] Dr. Mag Charles EO # 0.1 103/ul Normal 0.0-0.7 [facility] Comment on above: Performed By: #### C BC #### [facility] [address] [place] [address] Dr. Mag Charles Eosinophils/100 WBC (Bld) 1.1 % Normal 0.9-7.0 [facility] Comment on above: Performed By: #### C BC #### [facility] [address] [place] [address] Dr. Mag Charles Erythrocyte distribution width (RBC) [Ratio] 13.4 % Normal 11.0-15.0 [facility] Comment on above: Performed By: #### C BC #### [facility] [address] [place] [address] Dr. Mag Charles Hematocrit (Bld) [Volume fraction] 46.8 % Normal 36.0-48.0 [facility] Comment on above: Performed By: #### C BC #### [facility] [address] [place] [address] Dr. Mag Charles Hemoglobin (Bld) [Mass/Vol] 15.1 g/dL Normal 12.0-16.0 [facility] Comment on above: Performed By: #### C BC #### [facility] [address] [place] [address] Dr. Mag Charles IG # 0.09 10e3/ul Critically high 0.00-0.[address] [facility] Comment on above: Performed By: #### C BC #### [facility] [address] [place] [address] Dr. Mag Charles IG % 0.8 % Critically high 0.0-0.5 [facility] Comment on above: Performed By: #### C BC #### [facility] [address] [place] [address] Dr. Mag Charles LYMPH # 3.8 103/ul Normal 1.2-3.8 [facility] Comment on above: Performed By: #### C BC #### [facility] [address] [place] [address] Dr. Mag Charles Lymphocytes/100 WBC (Bld) 32.7 % Normal 20.5-60.0 [facility] Comment on above: Performed By: #### C BC #### [facility] [address] [place] [address] Dr. Mag Charles MANUAL DIFF REQ NO Normal [facility] Comment on above: Performed By: #### C BC #### [facility] [address] [place] [address] Dr. Mag Charles MCH (RBC) [Entitic mass] 30.3 pg Normal 26.7-34.0 [facility] Comment on above: Performed By: #### C BC #### [facility] [address] [place] [address] Dr. Mag Charles MCHC (RBC) [Mass/Vol] 32.3 g/dL Normal 29.9-35.2 [facility] Comment on above: Performed By: #### C BC #### [facility] [address] [place] [address] Dr. Mag Charles MCV (RBC) [Entitic vol] 93.8 fL Normal 81.0-99.0 [facility] Comment on above: Performed By: #### C BC #### [facility] [address] [place] [address] Dr. Mag Charles MONO # 1.1 103/ul Critically high 0.3-0.8 [facility] Comment on above: Performed By: #### C BC #### [facility] [address] [place] [address] Dr. Mag Charles Monocytes/100 WBC (Bld) 9.2 % Normal 1.7-12.0 [facility] Comment on above: Performed By: #### C BC #### [facility] [address] [place] [address] Dr. Mag Charles NEUT # 6.5 103/ul Normal 1.4-6.5 [facility] Comment on above: Performed By: #### C BC #### [facility] [address] [place] [address] Dr. Mag Charles Neutrophils/100 WBC (Bld) 55.5 % Normal 43.0-75.0 [facility] Comment on above: Performed By: #### C BC #### [facility] [address] [place] [address] Dr. Mag Charles Platelet mean volume (Bld) [Entitic vol] 9.9 fL Normal 9.5-13.5 [facility] Comment on above: Performed By: #### C BC #### [facility] [address] [place] [address] Dr. Mag Charles PLT 237 103/ul Normal 150-450 [facility] Comment on above: Performed By: #### C BC #### [facility] [address] [place] [address] Dr. Mag Charles RBC 4.99 106/ul Normal 4.20-5.40 [facility] Comment on above: Performed By: #### C BC #### [facility] [address] [place] [address] Dr. Mag Charles WBC 11.6 103/ul Critically high 4.0-11.0 [facility] Comment on above: Performed By: #### C BC #### [facility] [address] [place] [address] Dr. Mag Charles PROF CHEM 8 (BAS METB)on Anion gap [Moles/Vol] 10.2 mmol/L Normal [facility] Comment on above: Performed By: #### C VDTBH #### [facility] [address] [place] [address] Dr. Mag Charles Calcium [Mass/Vol] 8.5 mg/dL Normal 8.5-10.1 [facility] Comment on above: Performed By: #### C VDTBH #### [facility] [address] [place] [address] Dr. Mag Charles Chloride [Moles/Vol] 103 mmol/L Normal 98-107 [facility] Comment on above: Performed By: #### C VDTBH #### [facility] [address] [place] [address] Dr. Mag Charles CO2 [Moles/Vol] 30.7 mmol/L Normal 21.0-32.0 [facility] Comment on above: Performed By: #### C VDTBH #### [facility] [address] [place] [address] Dr. Mag Charles Creatinine [Mass/Vol] 1.01 mg/dL Normal 0.55-1.02 [facility] Comment on above: Performed By: #### C VDTBH #### [facility] [address] [place] [address] Dr. Mag Charles EGFR-AF ERITREAN >60 Normal >=60 [facility] Comment on above: Performed By: #### C VDTBH #### [facility] [address] [place] [address] Dr. Mag Charles EGFR-NON AF ERITREAN 54 mL/min/1.73m2 Critically low >=60 [facility] Comment on above: Performed By: #### C VDTBH #### [facility] [address] [place] [address] Dr. Mag Charles Glucose [Mass/Vol] 94 mg/dL Normal 74-106 [facility] Comment on above: Performed By: #### C VDTBH #### [facility] [address] [place] [address] Dr. Mag Charles Potassium [Moles/Vol] 3.9 mmol/L Normal 3.5-5.1 [facility] Comment on above: Performed By: #### C VDTBH #### [facility] [address] [place] [address] Dr. Mag Charles Sodium [Moles/Vol] 140 mmol/L Normal 136-145 [facility] Comment on above: Performed By: #### C VDTBH #### [facility] [address] [place] [address] Dr. Mag Charles Urea nitrogen [Mass/Vol] 17.0 mg/dL Normal 7.0-18.0 [facility] Comment on above: Performed By: #### C VDTBH #### [facility] [address] [place] [address] Dr. Mag Charles Urea nitrogen/Creatinine [Mass ratio] 16.8 mg/mg Normal [facility] Comment on above: Performed By: #### C VDTBH #### [facility] [address] [place] [address] Dr. Mag Charles BNPon 06-10-2022 Natriuretic peptide B (Bld) [Mass/Vol] 51.0 pg/mL Normal <=900.0 [facility] Comment on above: Performed By: #### B ECHO TECH #### [facility] [address] [place] [address] Dr. Mag Charles CARDIAC NILO ADMITon 023 CK [Catalytic activity/Vol] 57 U/L Normal 26-192 [facility] Comment on above: Performed By: #### C FIONA, CMP #### [facility] [address] [place] [address] Dr. Mag Charles CK.MB [Mass/Vol] 1.72 ng/mL Normal <=3.60 [facility] Comment on above: Performed By: #### C FIONA, CMP #### [facility] [address] [place] [address] Dr. Mag Charles HSTROP 11.3 pg/mL Normal 4.0-51.3 [facility] Comment on above: Result Comment: CUT- OFF POINTS HAVE BEEN ESTABLISHED BASED ON THE FOURTH UNIVERSAL DEFINITIONS OF MYOCARDIAL INFARCTION. THE UPPER REFERENCE LIMIT (URL) OF TROPONIN, DEFINED THE 99TH PERCENTILE OF cTnI DISTRIBUTION IN A REFERENCE POPULATION, HAS BEEN CONFIRMED THE DECISION THRESHOLD FOR GA DIAGNOSIS. Performed By: #### C FIONA, CMP #### [facility] [address] [place] [address] Dr. Mag Charles AG 62 ng/mL Normal 9-82 [facility] [facility] Comment on above: Performed By: #### C FIONA, CMP #### [facility] [address] [place] [address] Dr. Mag Charles CBC AUTO DIFFon 06-10-2022 BASO # 0.1 103/ul Normal 0.0-0.1 [facility] Comment on above: Performed By: #### C VDTBH #### [facility] [address] [place] [address] Dr. Mag Charles Basophils/100 WBC (Bld) 0.5 % Normal 0.2-2.0 [facility] Comment on above: Performed By: #### C VDTBH #### [facility] [address] [place] [address] Dr. Mag Charles EO # 0.1 103/ul Normal 0.0-0.7 [facility] Comment on above: Performed By: #### Fawn WALLACETBH #### [facility] [address] [address] [address] Mag Charles Eosinophils/100 WBC (Bld) 0.8 % Critically low 0.9-7.0 [facility] Comment on above: Performed By: #### C VDTBH #### [facility] [address] [place] [address] Dr. Mag Charles Erythrocyte distribution width (RBC) [Ratio] 13.5 % Normal 11.0-15.0 [facility] Comment on above: Performed By: #### C VDTBH #### [facility] [address] [place] [address] Dr. Mag Charles Hematocrit (Bld) [Volume fraction] 49.1 % Critically high 36.0-48.0 [facility] Comment on above: Performed By: #### C VDTBH #### [facility] [address] [place] [address] Dr. Mag Charles Hemoglobin (Bld) [Mass/Vol] 15.9 g/dL Normal 12.0-16.0 [facility] Comment on above: Performed By: #### C VDTBH #### [facility] [address] [place] [address] Dr. Mag Charles IG # 0.12 10e3/ul Critically high 0.00-0.[address] [facility] Comment on above: Performed By: #### C VDTBH #### [facility] [address] [place] [address] Dr. Mag Charles IG % 1.1 % Critically high 0.0-0.5 [facility] Comment on above: Performed By: #### C VDTBH #### [facility] [address] [place] [address] Dr. Mag Charles LYMPH # 1.9 103/ul Normal 1.2-3.8 [facility] Comment on above: Performed By: #### C VDTBH #### [facility] [address] [place] [address] Dr. Mag Charles Lymphocytes/100 WBC (Bld) 18.1 % Critically low 20.5-60.0 [facility] Comment on above: Performed By: #### C VDTBH #### [facility] [address] [place] [address] Dr. Mag Charles MANUAL DIFF REQ NO Normal [facility] Comment on above: Performed By: #### C VDTBH #### [facility] [address] [place] [address] Dr. Mag Charles MCH (RBC) [Entitic mass] 30.1 pg Normal 26.7-34.0 [facility] Comment on above: Performed By: #### C VDTBH #### [facility] [address] [place] [address] Dr. Mag Charles MCHC (RBC) [Mass/Vol] 32.4 g/dL Normal 29.9-35.2 [facility] Comment on above: Performed By: #### C VDTBH #### [facility] [address] [place] [address] Dr. Mag Charles MCV (RBC) [Entitic vol] 93.0 fL Normal 81.0-99.0 [facility] Comment on above: Performed By: #### C VDTBH #### [facility] [address] [place] [address] Dr. Mag Charles MONO # 0.8 103/ul Normal 0.3-0.8 [facility] Comment on above: Performed By: #### C VDTBH #### [facility] [address] [place] [address] Dr. Mag Charles Monocytes/100 WBC (Bld) 7.7 % Normal 1.7-12.0 [facility] Comment on above: Performed By: #### C VDTBH #### [facility] [address] [place] [address] Dr. Mag Charles NEUT # 7.6 103/ul Critically high 1.4-6.5 [facility] Comment on above: Performed By: #### C VDTBH #### [facility] [address] [place] [address] Dr. Mag Charles Neutrophils/100 WBC (Bld) 71.8 % Normal 43.0-75.0 [facility] Comment on above: Performed By: #### C VDTBH #### [facility] [address] [address] [address] Mag Charles Platelet mean volume (Bld) [Entitic vol] 10.4 fL Normal 9.5-13.5 [facility] Comment on above: Performed By: #### C VDTBH #### [facility] [address] [address] [address] Mag Charles PLT 165 103/ul Normal 150-450 [facility] Comment on above: Performed By: #### C VDTBH #### [facility] [address] [address] [address] Mag Charles RBC 5.28 106/ul Normal 4.20-5.40 [facility] Comment on above: Performed By: #### C VDTBH #### [facility] [address] [place] [address] Dr. Mag Cahrles WBC 10.6 103/ul Normal 4.0-11.0 [facility] Comment on above: Performed By: #### C VDTBH #### [facility] [address] [address] [address] Mag Charles Covid-19 PCR ([facility])on SARS-CoV-2 (COVID-19) RNA ABIODUN+probe Ql (Unsp spec) Not detected Normal NOT DETECTED [facility] Comment on above: Result Comment: When diagnostic [...] for this test is supported by the [place] of Health and Human Service's declaration that [...] used). Performed By: #### C VDTBH #### [facility] [address] [place] [address] Dr. Mag Charles D-DIMERon 06-10-2022 D-DIMER 0.49 mg/L FEU Normal <=0.59 [facility] Comment on above: Performed By: #### C VDTBH #### [facility] [address] [place] [address] Dr. Mag Charles D-DIMER COMMENTS SEE BELOW Normal [facility] Comment on above: Result Comment: Incr [...] hospitalization. Performed By: #### C FELIX #### [facility] [address] [place] [address] Dr. Mag Charles PROF 14(COMP METB)on 023 Albumin [Mass/Vol] 3.5 g/dL Normal 3.4-5.0 [facility] Comment on above: Performed By: #### C FIONA, CMP #### [facility] [address] [place] [address] Dr. Mag Charles Albumin/Globulin [Mass ratio] 1.1 {ratio} Normal [facility] Comment on above: Performed By: #### C FIONA, CMP #### [facility] [address] [place] [address] Dr. Mag Charles ALP [Catalytic activity/Vol] 108 U/L Normal 46-116 [facility] Comment on above: Performed By: #### C FIONA, CMP #### [facility] [address] [place] [address] Dr. Mag Charles ALT [Catalytic activity/Vol] 67 U/L Critically high 14-59 [facility] Comment on above: Performed By: #### C GEOVANIM, CMP #### [facility] [address] [place] [address] Dr. Mag Charles Anion gap [Moles/Vol] 12.6 mmol/L Normal [facility] Comment on above: Performed By: #### C GEOVANIM, CMP #### [facility] [address] [place] [address] Dr. Mag Charles AST [Catalytic activity/Vol] 117 U/L Critically high 15-37 [facility] Comment on above: Performed By: #### C FIONA, CMP #### [facility] [address] [place] [address] Dr. Mag Charles Bilirubin [Mass/Vol] 0.7 mg/dL Normal 0.2-1.0 [facility] Comment on above: Performed By: #### C FIONA, CMP #### [facility] [address] [place] [address] Dr. Mag Charles Calcium [Mass/Vol] 8.5 mg/dL Normal 8.5-10.1 [facility] Comment on above: Performed By: #### C FIONA, CMP #### [facility] [address] [place] [address] Dr. Mag Charles Chloride [Moles/Vol] 99 mmol/L Normal 98-107 [facility] Comment on above: Performed By: #### C FIONA, CMP #### [facility] [address] [place] [address] Dr. Mag Charles CO2 [Moles/Vol] 28.5 mmol/L Normal 21.0-32.0 [facility] Comment on above: Performed By: #### C FIONA, CMP #### [facility] [address] [place] [address] Dr. Mag Charles Creatinine [Mass/Vol] 1.23 mg/dL Critically high 0.55-1.02 [facility] Comment on above: Performed By: #### C FIONA, CMP #### [facility] [address] [place] [address] Dr. Mag Charles EGFR-AF ERITREAN 52 mL/min/1.73m2 Critically low >=60 [facility] Comment on above: Performed By: #### C GEOVANIM, CMP #### [facility] [address] [address] [address] Mag Charles EGFR-NON AF ERITREAN 43 mL/min/1.73m2 Critically low >=60 [facility] Comment on above: Performed By: #### C GEOVANIM, CMP #### [facility] [address] [address] [address] Mag Charles Globulin (S) [Mass/Vol] 3.3 g/dL Normal [facility] Comment on above: Performed By: #### C FIONA, CMP #### [facility] [address] [address] [address] Mag Charles Glucose [Mass/Vol] 112 mg/dL Critically high 74-[address] [facility] Comment on above: Performed By: #### C FIONA, CMP #### [facility] [address] [address] [address] Mag Charles Potassium [Moles/Vol] 4.1 mmol/L Normal 3.5-5.1 [facility] Comment on above: Performed By: #### C FIONA, CMP #### [facility] [address] [place] [address] Dr. Mag Charles Protein [Mass/Vol] 6.8 g/dL Normal 6.4-8.2 [facility] Comment on above: Performed By: #### C FIONA, CMP #### [facility] [address] [address] [address] Mag Charles Sodium [Moles/Vol] 136 mmol/L Normal 136-145 [facility] Comment on above: Performed By: #### C FIONA, CMP #### [facility] [address] [address] [address] Mag Charles Urea nitrogen [Mass/Vol] 21.0 mg/dL Critically high 7.0-18.0 [facility] Comment on above: Performed By: #### C FIONA, CMP #### [facility] [address] [address] [address] Mag Charles Urea nitrogen/Creatinine [Mass ratio] 17.1 mg/mg Normal [facility] Comment on above: Performed By: #### C FIONA, CMP #### [facility] [address] [address] [address] Mag Charles TROPONIN, HIGH SENSITIVITYon 06-10-2022 HSTROP 9.3 pg/mL Normal 4.0-51.3 [facility] Comment on above: Result Comment: CUT- OFF POINTS HAVE BEEN ESTABLISHED BASED ON THE FOURTH UNIVERSAL DEFINITIONS OF MYOCARDIAL INFARCTION. THE UPPER REFERENCE LIMIT (URL) OF TROPONIN, DEFINED THE 99TH PERCENTILE OF cTnI DISTRIBUTION IN A REFERENCE POPULATION, HAS BEEN CONFIRMED THE DECISION THRESHOLD FOR [place] DIAGNOSIS. Performed By: #### C VDTB #### [facility] [address] [place] [address] Dr. Mag Charles HSTROP 10.4 pg/mL Normal 4.0-51.3 [facility] Comment on above: Result Comment: CUT- OFF POINTS HAVE BEEN ESTABLISHED BASED ON THE FOURTH UNIVERSAL DEFINITIONS OF MYOCARDIAL INFARCTION. THE UPPER REFERENCE LIMIT (URL) OF TROPONIN, DEFINED THE 99TH PERCENTILE OF cTnI DISTRIBUTION IN A REFERENCE POPULATION, HAS BEEN CONFIRMED THE DECISION THRESHOLD FOR [place] DIAGNOSIS. Performed By: #### H STRO #### [facility] [address] [place] [address] Dr. Mag Charles HSTROP 11.0 pg/mL Normal 4.0-51.3 [facility] Comment on above: Result Comment: CUT- OFF POINTS HAVE BEEN ESTABLISHED BASED ON THE FOURTH UNIVERSAL DEFINITIONS OF MYOCARDIAL INFARCTION. THE UPPER REFERENCE LIMIT (URL) OF TROPONIN, DEFINED THE 99TH PERCENTILE OF cTnI DISTRIBUTION IN A REFERENCE POPULATION, HAS BEEN CONFIRMED THE DECISION THRESHOLD FOR [place] DIAGNOSIS. Performed By: #### C VDTB #### [facility] [address] [place] [address] Dr. Mag Charles XR CHEST 1 Von [...] TAMIE RICHARDSON Date: 2022-06-10 09:21 Normal [facility] XR CHEST 2 Von 06-06-2022 XR CHEST [...] SUZE MARROQUIN Date: 2022-06-06 12:19 Normal [facility] COVID + FLU Quick Testingon 05-31-2022 SARS-CoV-2 (COVID-19) RNA ABIODUN+probe Ql (Unsp spec) Negative [employer] Other COVID + FLU Quick Testing Negative [employer] Other CBC W Auto Differential pane l (Bld)on 05-15-2022 Basophils (Bld) [#/Vol] 0.04 10*3/uL Normal <0.11 [facility] Comment on above: Order Comment: Speci men Type: BLOOD SPECIMEN [facility] Address: [address] [place] [address] Performed By: #### 5 7021-8 #### [facility] CLIA [id number] [address] [place] [address] Basophils/100 WBC (Bld) 0.7 % Normal [facility] Comment on above: Order Comment: Speci men Type: BLOOD SPECIMEN Ordering Facility: [facility] Address: [address] [address] Performed By: #### 5 7021-8 #### [facility] CLIA [id number] [address] [place] [address] Differential cell count method Nom (Bld) Auto Normal [facility] Comment on above: Order Comment: Speci men Type: BLOOD SPECIMEN Ordering Facility: [facility] Address: [address] [address] Performed By: #### 5 7021-8 #### [facility] CLIA [id number] [address] [place] [address] Eosinophils (Bld) [#/Vol] 0.15 10*3/uL Normal <0.46 [facility] Comment on above: Order Comment: Speci men Type: BLOOD SPECIMEN Ordering Facility[facility] Address: [address] [address] Performed By: #### 5 7021-8 #### [facility] CLIA [id number] [address] [place] [address] Eosinophils/100 WBC (Bld) 2.8 % Normal [facility] Comment on above: Order Comment: Speci men Type: BLOOD SPECIMEN Ordering Facility[facility] Address: [address] [address] Performed By: #### 5 7021-8 #### [facility] CLIA [id number] [address] [place] [address] Erythrocyte distribution width (RBC) [Ratio] 12.7 % Normal 11.5-15.0 [facility] Comment on above: Order Comment: Speci men Type: BLOOD SPECIMEN Order[facility] Facility[facility] Address: [address] [address] Performed By: #### 5 7021-8 #### [facility] CLIA [id number] [address] [place] [address] Hematocrit (Bld) [Volume fraction] 47.3 % High 36.0-46.0 [facility] Comment on above: Order Comment: Speci men Type: BLOOD SPECIMEN Ordering Facility[facility] Address: [address] [place] [address] Performed By: #### 5 7021-8 #### [facility] CLIA [id number] [address] [place] [address] Hemoglobin (Bld) [Mass/Vol] 15.4 g/dL Normal 11.5-15.5 [facility] Comment on above: Order Comment: Speci men Type: BLOOD SPECIMEN Order[facility] Address: [address] [place] [address] Performed By: #### 5 7021-8 #### [facility] CLIA [id number] [address] [place] [address] Immature granulocytes (Bld) [#/Vol] 10*3/uL Normal <0.10 [facility] Comment on above: Order Comment: Speci men Type: BLOOD SPECIMEN Order[facility] Address: [address] [place] [address] Performed By: #### 5 7021-8 #### [facility] CLIA [id number] [address] [place] [address] Immature granulocytes/100 WBC (Bld) 0.2 % Normal [facility] Comment on above: Order Comment: Speci men Type: BLOOD SPECIMEN Order[facility] Address: [address] [address] Performed By: #### 5 7021-8 #### [facility] CLIA [id number] [address] [place] [address] Lymphocytes (Bld) [#/Vol] 1.42 10*3/uL Normal 1.00-4.00 [facility] Comment on above: Order Comment: Speci men Type: BLOOD SPECIMEN Order[facility] Address: [address] [place] [address] Performed By: #### 5 7021-8 #### [facility] CLIA [id number] [address] [place] [address] Lymphocytes/100 WBC (Bld) 26.2 % Normal [facility] Comment on above: Order Comment: Speci men Type: BLOOD SPECIMEN Order[facility] Address: [address] [place] [address] Performed By: #### 5 7021-8 #### [facility] CLIA [id number] [address] [place] [address]2892 MCH (RBC) [Entitic mass] 30.3 pg Normal 26.0-34.0 [facility] Comment on above: Order Comment: Speci men Type: BLOOD SPECIMEN Order[facility] Address: [address] [place] [address] Performed By: #### 5 7021-8 #### [facility] CLIA [id number] [address] [place] [address] MCHC (RBC) [Mass/Vol] 32.6 g/dL Normal 30.5-36.0 [facility] Comment on above: Order Comment: Speci men Type: BLOOD SPECIMEN [facility] Address: [address] [place] [address] Performed By: #### 5 7021-8 #### [facility] CLIA [id number] [address] [place] [address] MCV (RBC) [Entitic vol] 92.9 fL Normal 80.0-100.0 [facility] Comment on above: Order Comment: Speci men Type: BLOOD SPECIMEN Order[facility] Address: [address] [place] [address] Performed By: #### 5 7021-8 #### [facility] CLIA [id number] [address] [place] [address] Monocytes (Bld) [#/Vol] 0.61 10*3/uL Normal <0.87 [facility] Comment on above: Order Comment: Speci men Type: BLOOD SPECIMEN Order[facility] Address: [address] [address] Performed By: #### 5 7021-8 #### [facility] CLIA [id number] [address] [place] [address]80 Monocytes/100 WBC (Bld) 11.3 % Normal [facility] Comment on above: Order Comment: Speci men Type: BLOOD SPECIMEN Order[facility] Address: [address] [address] Performed By: #### 5 7021-8 #### [facility] CLIA [id number] [address] [place] [address] Neutrophils (Bld) [#/Vol] 3.19 10*3/uL Normal 1.45-7.50 [facility] Comment on above: Order Comment: Speci men Type: BLOOD SPECIMEN Order[facility] Address: [address] [address] Performed By: #### 5 7021-8 #### [facility] CLIA [id number] [address] [place] [address] 01896 Neutrophils/100 WBC (Bld) 58.8 % Normal [facility] Comment on above: Order Comment: Speci men Type: BLOOD SPECIMEN Order[facility] Address: [address] [address] Performed By: #### 5 7021-8 #### [facility] CLIA [id number] [address] [place] [address]14 Nucleated RBC (Bld) [#/Vol] 10*3/uL Normal <0.01 [facility] Comment on above: Order Comment: Speci men Type: BLOOD SPECIMEN Order[facility] Address: [address] [address] Performed By: #### 5 7021-8 #### [facility] CLIA [id number] [address] [place] [address] 55453 Nucleated RBC/100 WBC (Bld) [Ratio] 0.0 /100 WBC Normal [facility] Comment on above: Order Comment: Speci men Type: BLOOD SPECIMEN [facility] Address: [address] [place] [address] Performed By: #### 5 7021-8 #### [facility] CLIA [id number] [address] [place] [address] Platelet mean volume (Bld) [Entitic vol] 10.7 fL Normal 9.0-12.7 [facility] Comment on above: Order Comment: Speci men Type: BLOOD SPECIMEN [facility] Address: [address] [place] [address] Performed By: #### 5 7021-8 #### [facility] CLIA [id number] [address] [place] [address] 10284 Platelets (Bld) [#/Vol] 197 10*3/uL Normal 150-400 [facility] Comment on above: Order Comment: Speci men Type: BLOOD SPECIMEN [facility] Address: [address] [place] [address] Performed By: #### 5 7021-8 #### [facility] CLIA [id number] [address] [place] [address] 30718 RBC (Bld) [#/Vol] 5.09 10*6/uL Normal 3.90-5.20 [facility] Comment on above: Order Comment: Speci men Type: BLOOD SPECIMEN Order[facility] Address: [address] [address] Performed By: #### 5 7021-8 #### [facility] CLIA [id number] [address] [place] [address] 30965 WBC (Bld) [#/Vol] 5.42 10*3/uL Normal 3.70-11.00 [facility] Comment on above: Order Comment: Speci men Type: BLOOD SPECIMEN Order[facility] Address: [address] [place], [place] [address] [address] Performed By: #### 5 7021-8 #### [facility] CLIA [id number] [address] [place] [address] 37756 CNOVSPon 05-15-2022 CNOVSP Visit (SP) Office ([facility]) ----- KATARINA CAMARA ([id number]) 1945 F Date Time Provider Department 05/15/22 [...] biopsy completed 02/2016 noted invasive ductal carcinoma ER/WV positive, HER2 negative. : Lumpectomy completed 03/21/16 noted grade 2 invasive ductal carcinoma, DCIS grade 2, 14 mm : Margins negative (discussed with the pathologist who assured negative margins but that the anterior margin was within 1.0mm anteriorly). : Robeline lymph node was positive for involvement. 06/25/16 [...] Invasive ductal carcinoma of right breast (HCC) ER/WV+ HER2- PAST SURGICAL HISTORY Procedure Laterality Date [...] sores or (more content not included)... Normal [facility] Comprehensive metabolic 2000 panelon 05-15-2022 Albumin [Mass/Vol] 4.5 g/dL Normal 3.9-4.9 [facility] Comment on above: Order Comment: Speci men Type: BLOOD SPECIMEN [facility] Address: [address] [place] [address] Performed By: #### 2 4323-8 #### [facility] CLIA [id number] [address] [place] [address] 59496 ALP [Catalytic activity/Vol] 83 U/L Normal 34-123 [facility] Comment on above: Order Comment: Speci men Type: BLOOD SPECIMEN Order[facility] Address: [address] [place] [address] Performed By: #### 2 4323-8 #### [facility] CLIA [id number] [address] [place] [address] 50438 ALT [Catalytic activity/Vol] 11 U/L Normal 7-38 [facility] Comment on above: Order Comment: Speci men Type: BLOOD SPECIMEN Ordering [facility] Address: [address] [address] Performed By: #### 2 4323-8 #### [facility] CLIA [id number] [address] [place] [address]9601 Anion gap [Moles/Vol] 9 mmol/L Normal 9-18 [facility] Comment on above: Order Comment: Speci men Type: BLOOD SPECIMEN Order[facility] Address: [address] [address] Performed By: #### 2 432-8 #### [facility] CLIA [id number] [address] [place] [address] 69535 AST [Catalytic activity/Vol] 20 U/L Normal 13-35 [facility] Comment on above: Order Comment: Speci men Type: BLOOD SPECIMEN Order[facility] Address: [address] [address] Performed By: #### 2 432-8 #### [facility] CLIA [id number] [address] [place] [address]7688 Bilirubin [Mass/Vol] 0.7 mg/dL Normal 0.2-1.3 [facility] [facility] Comment on above: Order Comment: Speci men Type: BLOOD SPECIMEN [facility]ing Facility[facility] Address: [address] [address] Performed By: #### 2 432-8 #### [facility] CLIA [id number] [address] [place] [address] Calcium [Mass/Vol] 9.5 mg/dL Normal 8.5-10.2 [facility] Comment on above: Order Comment: Speci men Type: BLOOD SPECIMEN Ordering Facility: [facility] Address: [address] [address] Performed By: #### 2 4322-8 #### [facility] CLIA [id number] [address] [place] [address] Chloride [Moles/Vol] 99 mmol/L Normal 97-105 [facility] Comment on above: Order Comment: Speci men Type: BLOOD SPECIMEN Ordering Facility[facility] Address: [address] [place] [address] Performed By: #### 2 4323-8 #### [facility] CLIA [id number] [address] [place] [address] CO2 [Moles/Vol] 30 mmol/L Normal 22-30 [facility] Comment on above: Order Comment: Speci men Type: BLOOD SPECIMEN [facility]ing Facility[facility] Address: [address] [place] [address] Performed By: #### 2 4323-8 #### [facility] CLIA [id number] [address] [place] [address] Creatinine [Mass/Vol] 1.08 mg/dL High 0.58-0.96 [facility] Comment on above: Order Comment: Speci men Type: BLOOD SPECIMEN [facility]ing [facility] Address: [address] [place] [address] Performed By: #### 2 4323-8 #### [facility] CLIA [id number] [address] [place] [address] ESTIMATED GLOMERULAR FILTRATION RATE 54 mL/min/1.73m??? Low >=60 [facility] Comment on above: Order Comment: Speci men Type: BLOOD SPECIMEN [facility]ing [facility] Address: [address] [place] [address] Result Comment: Cathy mated Glomerular Filtration Rate [...] GFR. Performed By: #### 2 4323-8 #### [facility] CLIA [id number] [address] [place] [address] Glucose [Mass/Vol] 94 mg/dL Normal 74-99 [facility] Comment on above: Order Comment: Speci men Type: BLOOD SPECIMEN [facility]ing [facility] Address: [address] [place] [address] Result Comment: The [place] [employer] (ADA) provides guidance for cutoff [...] Standards of Medical Care in Diabetes 2016, [place] [employer]. Diabetes Care. 2016.39(Suppl 1). Performed By: #### 2 4323-8 #### [facility] CLIA [id number] [address] [place] [address] Potassium [Moles/Vol] 4.2 mmol/L Normal 3.7-5.1 [facility] Comment on above: Order Comment: Speci men Type: BLOOD SPECIMEN [facility] Address: [address] [place] [address] Performed By: #### 2 4323-8 #### [facility] CLIA [id number] [address] [place] [address] Protein [Mass/Vol] 6.7 g/dL Normal 6.3-8.0 [facility] Comment on above: Order Comment: Speci men Type: BLOOD SPECIMEN [facility] Address: [address] [place] [address] Performed By: #### 2 4323-8 #### [facility] CLIA [id number] [address] [place], [place] [id number] Sodium [Moles/Vol] 138 mmol/L Normal 136-144 [facility] Comment on above: Order Comment: Speci men Type: BLOOD SPECIMEN Ordering Facility[facility] Address: [address] [id number] Performed By: #### 2 4323-8 #### [facility] CLIA [id number] [address] [place] [address] Urea nitrogen [Mass/Vol] 15 mg/dL Normal 7-21 [facility] Comment on above: Order Comment: Speci men Type: BLOOD SPECIMEN Ordering Facility[facility] Address: [address] [address] Performed By: #### 2 4323-8 #### [facility] CLIA [id number] [address] [place], [place] [id number] CBC AUTO DIFFon 04-24-2022 BASO # 0.0 103/ul Normal 0.0-0.1 [facility] Comment on above: Performed By: #### C BC #### [facility] [address] [address] [address] Mag Charles Basophils/100 WBC (Bld) 0.7 % Normal 0.2-2.0 [facility] Comment on above: Performed By: #### C BC #### [facility] [address] [address] [address] Mag Charles EO # 0.2 103/ul Normal 0.0-0.7 [facility] Comment on above: Performed By: #### C BC #### [facility] [address] [address] [address] Mag Charles Eosinophils/100 WBC (Bld) 3.0 % Normal 0.9-7.0 [facility] Comment on above: Performed By: #### C BC #### [facility] [address] [address] [address] Mag Charles Erythrocyte distribution width (RBC) [Ratio] 13.1 % Normal 11.0-15.0 [facility] Comment on above: Performed By: #### C BC #### [facility] [address] [place] [address] Dr. Mag Charles Hematocrit (Bld) [Volume fraction] 45.7 % Normal 36.0-48.0 [facility] Comment on above: Performed By: #### C BC #### [facility] [address] [place] [address] Dr. Mag Charles Hemoglobin (Bld) [Mass/Vol] 15.2 g/dL Normal 12.0-16.0 [facility] Comment on above: Performed By: #### C BC #### [facility] [address] [place] [address] Dr. Mag Charles IG # 0.02 10e3/ul Normal 0.00-0.03 [facility] Comment on above: Performed By: #### C BC #### [facility] [address] [place] [address] Dr. Mag Charles IG % 0.3 % Normal 0.0-0.5 [facility] Comment on above: Performed By: #### C BC #### [facility] [address] [place] [address] Dr. Mag Charles LYMPH # 1.5 103/ul Normal 1.2-3.8 [facility] Comment on above: Performed By: #### C BC #### [facility] [address] [place] [address] Dr. Mag Charles Lymphocytes/100 WBC (Bld) 25.7 % Normal 20.5-60.0 [facility] Comment on above: Performed By: #### C BC #### [facility] [address] [place] [address] Dr. Mag Charles MANUAL DIFF REQ NO Normal [facility] Comment on above: Performed By: #### C BC #### [facility] [address] [place] [address] Dr. Mag Charles MCH (RBC) [Entitic mass] 30.2 pg Normal 26.7-34.0 [facility] Comment on above: Performed By: #### C BC #### [facility] [address] [address] [address] Mag Charles MCHC (RBC) [Mass/Vol] 33.3 g/dL Normal 29.9-35.2 [facility] Comment on above: Performed By: #### C BC #### [facility] [address] [address] [address] Mag Charles MCV (RBC) [Entitic vol] 90.7 fL Normal 81.0-99.0 [facility] Comment on above: Performed By: #### C BC #### [facility] [address] [address] [address] Mag Charles MONO # 0.6 103/ul Normal 0.3-0.8 [facility] Comment on above: Performed By: #### C BC #### [facility] [address] [place] [address] Dr. Mag Charles Monocytes/100 WBC (Bld) 10.4 % Normal 1.7-12.0 [facility] Comment on above: Performed By: #### C BC #### [facility] [address] [place] [address] Dr. Mag Charles NEUT # 3.6 103/ul Normal 1.4-6.5 [facility] Comment on above: Performed By: #### C BC #### [facility] [address] [place] [address] Dr. Mag Charles Neutrophils/100 WBC (Bld) 59.9 % Normal 43.0-75.0 [facility] Comment on above: Performed By: #### C BC #### [facility] [address] [place] [address] Dr. Mag Charles Platelet mean volume (Bld) [Entitic vol] 10.2 fL Normal 9.5-13.5 [facility] Comment on above: Performed By: #### C BC #### [facility] [address] [place] [address] Dr. Mag Charles PLT 175 103/ul Normal 150-450 [facility] Comment on above: Performed By: #### C BC #### [facility] [address] [address] [address] Mag hCarles RBC 5.04 106/ul Normal 4.20-5.40 [facility] Comment on above: Performed By: #### C BC #### [facility] [address] [place] [address] Dr. Mag Charles WBC 6.0 103/ul Normal 4.0-11.0 [facility] Comment on above: Performed By: #### C BC #### [facility] [address] [place] [address] Dr. Mag Charles GLYCOHEMOGLOBIN A1Con 2022 ADA RECOMMENDATION SEE BELOW Normal [facility] Comment on above: Result Comment: ADA RECOMMENDED LIMIT 4.0 - 6.0 ADA THERAPEUTIC TARGET < 7.0 ACTION SUGGESTED > 7.0 Performed By: #### C VDTBH #### [facility] [address] [place] [address] Dr. Mag Charles Glucose [Mass/Vol] 123 mg/dL Normal [facility] Comment on above: Performed By: #### C VDTBH #### [facility] [address] [place] [address] Dr. Mag Charles HbA1c (Bld) [Mass fraction] 5.9 % Normal 4.5-6.2 [facility] Comment on above: Performed By: #### C VDTBH #### [facility] [address] [place] [address] Dr. Mag Charles LIPID PROFILEon 04-24-2022 CHOL-HDL RATIO NORM SEE BELOW Normal [facility] Comment on above: Result Comment: 3.3 - 4.4 LOW RISK 4.4 - 7.1 AVERAGE RISK 7.1 - 11.0 MODERATE RISK >11.0 HIGH RISK Performed By: #### T SH, CMP, LIPID #### [facility] [address] [place] [address] Dr. Mag Charles Cholesterol [Mass/Vol] 169 mg/dL Normal <=200 [facility] Comment on above: Performed By: #### T SH, CMP, LIPID #### [facility] [address] [place] [address] Dr. Mag Charles Cholesterol in HDL [Mass/Vol] 49 mg/dL Normal 40-60 [facility] Comment on above: Performed By: #### T BRENDA CMP, LIPID #### [facility] [address] [address] [address] Mag Charles Cholesterol in LDL [Mass/Vol] 83.2 mg/dL Normal [facility] Comment on above: Performed By: #### T BRENDA CMP, LIPID #### [facility] [address] [place] [address] Dr. Mag Charles Cholesterol.total/Chol esterol in HDL [Mass ratio] 3.4 {ratio} Normal [facility] Comment on above: Performed By: #### T BRENDA CMP, LIPID #### [facility] [address] [place] [address] Dr. Mag Charles HDL NORMAL > or = 60 mg/dl - LO W CARDIOVASCULAR RISK <40 mg/dl - HIGH CARDIOVASCULAR RISK Normal [facility] Comment on above: Performed By: #### T BRENDA CMP, LIPID #### [facility] [address] [place] [address] Dr. Mag Charles LDL CALC NORMAL SEE BELOW Normal [facility] Comment on above: Result Comment: <100 mg/dl OPTIMAL 100 - 129 mg/dl NEAR OR ABOVE OPTIMAL 130 - 159 mg/dl BORDERLINE HIGH 160 - 189 mg/dl HIGH >190 mg/dl VERY HIGH Performed By: #### T BRENDA CMP, LIPID #### [facility] [address] [place] [address] Dr. Mag Charles Triglyceride [Mass/Vol] 184 mg/dL Critically high <=150 [facility] Comment on above: Performed By: #### T SH, CMP, LIPID #### [facility] [address] [place] [address] Dr. Mag Charles VLDL CALC 36.8 mg/dL Normal [facility] Comment on above: Performed By: #### T SH, CMP, LIPID #### [facility] [address] [place] [address] Dr. Mag Charles PROF 14(COMP METB)on 02-21-2 023 Albumin [Mass/Vol] 3.9 g/dL Normal 3.4-5.0 [facility] Comment on above: Performed By: #### T SH, CMP, LIPID #### [facility] [address] [address] [address] Mag Charles Albumin/Globulin [Mass ratio] 1.3 {ratio} Normal [facility] Comment on above: Performed By: #### T SH, CMP, LIPID #### [facility] [address] [address] [address] Mag Charles ALP [Catalytic activity/Vol] 71 U/L Normal 46-116 [facility] Comment on above: Performed By: #### T BRENDA, CMP, LIPID #### [facility] [address] [address] [address] Mag Charles ALT [Catalytic activity/Vol] 23 U/L Normal 14-59 [facility] Comment on above: Performed By: #### T BRENDA, CMP, LIPID #### [facility] [address] [address] [address] Mag Charles Anion gap [Moles/Vol] 7.8 mmol/L Normal [facility] Comment on above: Performed By: #### T BRENDA, CMP, LIPID #### [facility] [address] [address] [address] Mag Charles AST [Catalytic activity/Vol] 22 U/L Normal 15-37 [facility] Comment on above: Performed By: #### T BRENDA, CMP, LIPID #### [facility] [address] [address] [address] Mag Charles Bilirubin [Mass/Vol] 0.7 mg/dL Normal 0.2-1.0 [facility] Comment on above: Performed By: #### T SH, CMP, LIPID #### [facility] [address] [address] [address] Mag Charles Calcium [Mass/Vol] 9.2 mg/dL Normal 8.5-10.1 [facility] Comment on above: Performed By: #### T SH, CMP, LIPID #### [facility] [address] [address] [address] Mag Charles Chloride [Moles/Vol] 104 mmol/L Normal 98-107 [facility] Comment on above: Performed By: #### T SH, CMP, LIPID #### [facility] [address] [address] [address] Mag Charles CO2 [Moles/Vol] 32.0 mmol/L Normal 21.0-32.0 [facility] Comment on above: Performed By: #### T SH, CMP, LIPID #### [facility] [address] [place] [address] Dr. Mag Charles Creatinine [Mass/Vol] 1.15 mg/dL Critically high 0.55-1.02 [facility] Comment on above: Performed By: #### T SH, CMP, LIPID #### [facility] [address] [place] [address] Dr. Mag Charles EGFR-AF ERITREAN 56 mL/min/1.73m2 Critically low >=60 [facility] Comment on above: Performed By: #### T SH, CMP, LIPID #### [facility] [address] [place] [address] Dr. Mag Charles EGFR-NON AF ERITREAN 46 mL/min/1.73m2 Critically low >=60 [facility] Comment on above: Performed By: #### T SH, CMP, LIPID #### [facility] [address] [place] [address] Dr. Mag Charles Globulin (S) [Mass/Vol] 3.1 g/dL Normal [facility] Comment on above: Performed By: #### T SH, CMP, LIPID #### [facility] [address] [place] [address] Dr. Mag Charles Glucose [Mass/Vol] 102 mg/dL Normal 74-106 [facility] Comment on above: Performed By: #### T SH, CMP, LIPID #### [facility] [address] [place] [address] Dr. Mag Charles Potassium [Moles/Vol] 4.8 mmol/L Normal 3.5-5.1 [facility] Comment on above: Performed By: #### T SH, CMP, LIPID #### [facility] [address] [address] [address] Mag Charles Protein [Mass/Vol] 7.0 g/dL Normal 6.4-8.2 [facility] Comment on above: Performed By: #### T SH, CMP, LIPID #### [facility] [address] [address] [address] Mag Charles Sodium [Moles/Vol] 139 mmol/L Normal 136-145 [facility] Comment on above: Performed By: #### T SH, CMP, LIPID #### [facility] [address] [place] [address] Dr. Mag Charles Urea nitrogen [Mass/Vol] 15.0 mg/dL Normal 7.0-18.0 [facility] Comment on above: Performed By: #### T SH, CMP, LIPID #### [facility] [address] [place] [address] Dr. Mag Charles Urea nitrogen/Creatinine [Mass ratio] 13.0 mg/mg Normal [facility] Comment on above: Performed By: #### T SH, CMP, LIPID #### [facility] [address] [place] [address] Dr. Mag Charles TSHon 04-24-2022 TSH 2.057 uIU/mL Normal 0.358-3.74 0 [facility] Comment on above: Performed By: #### T SH, CMP, LIPID #### [facility] [address] [place] [address] Dr. Mag Charles MG MAMM SCREEN 3D DA CADon 04-03-2022 MG MAMM SCREEN 3D DA CAD Patient: KATARINA CAMARA Exam Date: 04/03/2022 : 1945 Gender:F Ordering : ROSA TURNER Admission #: [id number] Family : DR NICOLE VARGAS M.D. Order #: [id number] CLICK HERE TO VIEW EXAM RADIOLOGY REPORT [...] and chemotherapy Family Cancers None LOCATION: [facility] BREAST COMPOSITION: Scattered areas fibroglandular density. FINDINGS: [...] Pepper Wood M.D. on 04/03/2022 at 15:05 [facility] MRA HEAD WO CONon 10-31-2021 MRA [...] authenticated by: PEPPER WOOD Date: 2021-10-31 11:01 [facility] Consent Formson 02-14-2021 Consent Forms [id number]#[id number] FF [facility] Provider Orderson 02-10-2021 Provider Orders [id number]#1.00OTGTI [facility] Coding Summaryon 02-08-2021 Coding Summary HTMLBase 64 HihepvikFQo6cIx+PGhlYWQ+P M7AXKRgJ85gxICqjE6GQ1pBJB 0DQIREGILSAR8ZRC8ikVK3NMv hC6IorsHn JxkcgNHaFU00QLi3BRW7wGheO BiqcA1ufKGqO3s6FfPySO50kQ 72GSsyFOKhVpY6AgIxnrsxvDA y Y1ciFzJgaLOyEem+PHRhYmxlI HdpZHRoPScxMDAlJyBzdHlsZT 6oLj3wPTSsGONmwAziuTLtSpB j z7tePFBbXZknYI4veQnmS4Iui WU1OEWge8x5Ai87wHL+PHRkIH Z8fSxsDDmxp835RmFyh8inBML 3 uEHnKFxiLWT9F41lc0R4ESRyL CPoUWK4qKH4cP5mdMswgihuS1 AozKXhVaY9LEW7yFTvlB9vsZu n mbyxhC0yPrk+D89WZU8LOTBZC W4ABxh4Y2XnDwpcnBF+PC90YW BrMF41aGJbyYGxx9zgqKi5PkV w IKErTZP4wZitOBwfb7FaDWPkI 91lxTLze3D5SHNtfTlbxCOmLh JdjAB5zU7yQXhhpduwd1vuccl n Kjmjr5mpeq36gV91B03jSFetX KKaUYF7PYUtSOKulNrgeq9lqJ 9wIi8+CWujh8hnl0fsmTy2FdW w LITmweJwcQorTXI6z9OdVk39Z 4AjtKurw0EsSws8eg45hFNxx8 G9sTS9NIgbSGZboU5oOJrgKcW 6 TJOsVuPxgL39zTEwQAwiBz4pi WmmfRtcPQ8hWEAhlzeaGRDakX 7tYLRpdIVvkPwbCR2hBPFrtcl m k225MgOxBGC2HZXgvDFqO8Cwm M7gRkSmERYuIUHeQ2PipIXhQF gzL064YRebQiR0SMQkxbIgS9W s YAZewOpcUpY0l7I3Si2Zt4Wak snzBJY2JLaxDSLwOlN0OiXnVt N4I6RdApl3BTRwaLlcZP6hE1D h TZQekishgwaqeWT9GXPqNHWlg V74tANkAGhdAu1vx7J1b560RA HuPMUyyC52Ty2ewKmdPTGvvTK U hR8jmzbnl8yxucgxSyStREXeJ Lh2RVr9DICwjNlfJkHjXLA5Ni X2BXZ1fNMhkJ4vsNtiolirnV9 w Oyc+N62wmE2fZWN7OSU9mhzzC ETnagIpOP54HI33H5BePhxzkT FibGU+DIVgfrPnbEuuGO8sKrT j c5lkw8NfDQgbV7ZaNGKwHMumQ pa1UDGdOBL7mMV4pO2lLTEdHJ nyk7Q4cMG2K0QfytNufo7uo0c s DRPgPQcbS51wfNEgt2V2XHFud HF1OTHhfKmeVlSkfW95Eoe+PG EcnQynr6QlJjikv0thf1ntyDm 9 FgUoDHXifyCxaXmsOHL5u3GgL o64V28lIVweQLIaDSAzMYVwSK DqhQszvd1ulN2xWz1+PGNvbCB 3 tOK8dL5yQKDpYfE3BYtxO558A gSvdITiNpcor9fpc7jbyFq5Yl ZbCHSwkaEzuKqhXHL9v4StNj8 8 V61gJZaeKLHkFBOfJJMyYZTzz Bnjrd0swE6cNx3+YP4uz6vuta 33sQ97pBD+CWWwAYS5gYclKOh w GXJndS0tAJapJaY9RZYnGfSqv J37lLFyOPunCw0kyOkjbZthQO 3tRZHkgoxho298OoJfp3izIMI w xDFhZYocLZD9U59qd4Y7MSOdW QCjXCB6mNK1oI1esFtshihsxW CmxPqyfoCdfDgxUQtlGHsiV66 6 IHRvcDsnPlBhdGllbnQgTmFtZ Wz6V3VhBsq7XKTxvZqzJM2svM ExQOptEj5dmLybzDdvLU7sRCZ p cqrke702OrWig1caWYKwiOXhI IjtPQU4T35cw7F6UARzKTLqSO U6xOT3yC5klWtswgrtvJOmtPr g siLawRznCAcpYYzaM223CMJsq LalFqRvzfMuNMVqoMY7WZ88LX 41eNKaj4O5bBG2V6KiWJElxkk t tcejmOQ3KAUcYMZtkR35Gj0iw JsqTy7kKETlQAS7QUQfrMFeM9 NttO1wXkPjTOHfKIIqL6LatHA t LBorC184MUbsGpV6QXDgfpHqT 5JrZIGivMocFvM2z6N3Jv3PA2 I9LG97OG98tCXro1I6oID3H0Q h QOXcndpjbwugrLT5WIVjITPql B82Dm6fhOulWd5tZNNrHCL4GN MprSNzL6UvrO9fFaVrYWCvHPA w U2KaiCAaLNeoY181XApuNtZ2D XBxglRfB5WeTFHzvLqfOsW2y7 R4Fh5NXLy8SD25KI64xCKld9U 5 fEE7G7OkXOWcwmvhzuvokPU1M DNjQYOwfY35Lw9lyUwwSy4hUH XuMDA3TXUxaPAgA5MvhT7pUmQ j XJPxNPPoD8UrmFWqFVqvE744L CucKsT9ETMwweTpL0DdSDAhxN toGnG8f7D4Tr2LRONrZW00SSX 5 zIC5UQ41QL74W1UbWrkplIVdf +PHRhYmxlIHdpZHRoPScxMD IpGwHcwVmpAH1vCy8dAAJrIGO v wEgpaRQjTwXdp1vpYTZeMSsjS R9fuBacS9KhsER2VJPsy4l0Jt 52I93vN2BmbJG+YFUavCK5jIN 0 aO0aSuRxCaR9RHprS700RlJcv JSwIvzrp2veb8qsnMe6EvK2UX VgswAzaDoeIZX8w2TvUy73I39 s IHdpZHRoPSIxNSUiIHZhbGlnb f2iyS9mRv1+THVwcMI5oMD1eI 4kQnYrFmA5ZKcjS882PnFkyRN v Nnxsy4kvs1lpcDd8SaDsIUEfd lOhdUqeSSG7y1GbVf14Z6IlgC tao8VrIja6pp85sTQtq8M9mUR 9 C1PpJMFxbcxubLAhaGxyUA8rU TOstwanEMHxfP2hWTSxI7s7La UzTqD2YVbcO3BjwlS3UGQnrCQ g BMmcOPL9Z90oz0I3DASyGJAvN SE5uXO2oO9ncVwqoohlrWKdcN ydwhOnvAtpLFyrCUopG250ISP v yNjbFEMazT2xBWRqtDTwwQrsO L6uHVQzuvrmRu1DNW9UOBtaIl 2GX2YoILqvqFI+FJGgRKX7oMg l AEtaIDInpL4bLMMyU7w9SuRpB fT7BRbsQ0ZjEGLdmhidLl46iE 7sFtSeDyB9TNmpG8MkpsQ6HRP w iSXnQDukEHV7O10rf9D9HSSuQ KGiQBH1cMO4iQ8drMidnprtbI WukLexzqVyjGbvSLhePCcgM93 6 DPYbmWsyWaO7JhAgKzB3MFt8L 3QxRym6MEFlwJczHW5alKIrNF cvNm8roStjzJzsUM0wFUOrzeb w LETvdN4lIVOdzUMtfGwrOE2lE ZDmjwxak491YeJnAWI3ONWdaW SuH2MwwS3cFaAbFPVhMPUmZ4V l hBLfXYnpE138YGzoUrX1FTHwf sQoH3MjRDAmhRvwCeX1i2P9Vu 43MyBZZWFyczwvdGQ+PHRkIHN 0 eSyoVEjjOKEwiS0yBLEfU5j9E qTcAlH2WTdwS3AmHPDfluvwSw 86yG2nUoQqTpG5TMobM7YvcnZ 6 IQZsrCXaFHeuFSE5T49az2K2F ZIiXLQtDNC4nZU4dY1yoDtbwi ogbGVmdDsgdmVydGljYWwtYWx p E972CHKtbHvaIdDDMEATWYpac GQ+KSXoCDI8yBtoVCnsMHKcbH 9vRIXiB1m9KqWuUsH2KPveY0T h QQXoezgcWj26yG9vGjFeDaS2L UlgO0QlctS5OXHvfBXvBErzCO V8C61sr4D9WUEgWSPkBNA3zYZ 4 jM0kzMbyeidxcEOaqOprnyIiw OnwYVizUWefH023GNEptAhvXm 6un0FaqhG2gR4qAK60MK02J6Z y PjwvdGFibGU+PHRhYmxlIHdpZ WBbLThxRNRnZwSwdVhxGD5cIa 8bEBFaKJTzzEommCHlVzGme6a s ZDVkQRpmJQ6dtVssB5VebDD9R IEwx5o9Vc81F07nO7MbkPU+PG HkzHQ8cIU9nS8uWqQjKjW0HHz p L699ZkZztOVzKetqr2wsb8ihf Wn3YoDcDJUwpaDmbLeyLZV9q4 ZeEf25C26qCTmsUGVbECYmZFO i PTZixHdnjs4cnB2wPg7+PGNvb VK0lAJ5vG1tKjTwKlL3JExfU8 52ZcFjxMIbFdaeK58rL3ZeuRB + VXTaPoj2PUXkyXzrRK8mcFOrB VumAt5bSJO0HyJdWvFgWJjtQ7 YwWIXzcmvjplgahGW1KKZeIJK w qC29Du4dqWnqPz7cSTIkCNJ3Q JNsyKWlL4PulJ3nNtLuCNOdBA NlK1QmlRCvOUfxO987HPucOjT 7 FGHftsUqT0XfGZIgjMiwGqX3u 6P8Ri4XsYljiBDlVA4dUwIaCC o9J4NbZxf4MFLclGfbII2arYX k CEciQl4xkUsuzMilVH7fPURld dfrv098KkMfu2paNRKrqFErEH mmOYG4D48xh9K2QCOtYFPvHJW 7 wIK0zJ4dvIaxnukuzEHndMixj aGoxLybKDaxGQzfI647DZCibY fjQyRGEuz0R3XsRtt0HHEzoUy s UK6bcSNnGRfiQz9piLedvEjbF Z5aZAIhxhjby706EbWha6tnPB ClfZMrXMiuPBY8B99tx8W5YHX w ZUQyAVF9nBA1iO5caEebunkzx GVmdDsgdmVydGljYWwtYWxpZ2 09RBLrdOknOj6XGzs2W4SnJzn 0 UMWqtTtwUS2noGJxENrxGe9vw JgqtBodDV7uBKIxdgzdz797Uo Uuj7gvEDNodLLsNTftOBD0W45 s u1O5KNYrWAXdRWO5nKQ0jS9mi GlnbjogbGVmdDsgdmVydGljYW cgVFiqU949TYMtkXknCnRlvAN y OjwvdGQ+LN70na95B7DtYolxT yu3WGDhTSH0zBZ4uJ8iUXNxHR lwk5A6mLS0G7RgnlYroj7ns3b s YXB (more content not included)... [facility] Consent Formson 02-08-2021 Consent Forms [id number]#1.00OTGTI [facility] Consent Forms [id number]#1.00OTGTI [facility] Discharge Instructionson Discharge Instructions [id number]#1.00OTGTI [facility] Inpatient Patient Summaryon 02-08-2021 [place] [address] Patient Discharge Instructions Name: KATARINA CAMARA : 1945 Patient Address: [address] [place] [address] Primary Care Provider: Name: NICOLE VARGAS MD After you are discharged if you find you have any questions, please, call [phone] ext [phone] to speak to a nurse. Discharge Diagnosis: [...] alcohol and/or drug addiction problems; contact the [facility] 24/09 Crisis Hotline -Text 4HOPE to 322798. If you received any narcotics, sedation, or [...] business decisions or sign any legal documents [facility] would like to thank you for allowing us to assist you with your healthcare needs. The following includes patient education materials and information regarding your injury/illness. KATARINA CAMARA has been given the following list of follow-up instructions, prescriptions, and patient education materials: Follow-up Instructions With: Address: When: Bernadine Diaz [address] [place] [address] Business (1) 12/17/2020 11:00 AM With: Address: When: NICOLE MCCULLOUGH[address] [address] Business (1) Medications During the [...] tab(s) Ora (more content not included)... Normal [facility] Outside Recordson 02-08-2021 Outside Records [id number] FF [facility] POCT Glucose Levelon 021 Glucose [Mass/Vol] 105 mg/dL Normal 74-118 [facility] Comment on above: Performed By: #### 4 [id number] #### [facility] (DEFAULT) [address] [place] [address] Pharmacy Noteon 02-08-2021 Pharmacy Note I have [...] [Verified on: 02/08/2021 09:18 EST] Nury Soto [facility] Telemetry Stripson Telemetry Strips [id number] [facility] Consent Formson 02-07-2021 Consent Forms [id number] [facility] Consultation/Specialist Note on 02-07-2021 Consultation/Specialis t [...] [Verified on: 02/07/2021 07:57 EST] THADDEUS GAMING [facility] MAGR Postoperative Recordon 02-07-2021 MAGR Postoperative Record MAGR Phase II Record Summary Primary Physician: Bernadine Diaz DO Finalized Date/Time: 02/07/21 09:54:12 Pt. Name: REGINA CAMARAMALINI Landry./Sex: 1945 FEMALE Med Rec #: [id number] Physician: Bernadine Diaz DO Financial #: [id number] Pt. Type: O Room/Bed: [facility] Admit/Disch: 02/06/21 08:56:00 - Institution: Phase II [...] Signed By: Jordyn Young RN 02/07/21 09:54 [facility] MAGR Preoperative Recordon 1 04-10-2020 MAGR Preoperative Record MAGR Pre-Op Record Summary Primary Physician: Bernadine Diaz DO Finalized Date/Time: 02/07/21 09:20:14 Pt. Name: KATARINA CAMARA /Sex: 1945 FEMALE Med Rec #: [id number] Physician: Bernadine Diaz DO Financial #: [id number] Pt. Type: O Room/Bed: [facility] Admit/Disch: 02/06/21 08:56:00 - Institution: Pre-Op Case [...] consent correct. General Comments: Pt arrives to [facility] ambulatory. Pt has #5 pain in right hip, she denies cp, sob, cough or flu like symptoms. Pt denies pacemaker/defibilaltor or sleep apnea. Finalized By: Kristina Schulte RN Document Signatures Signed By: Kristina Schulte RN 02/07/21 09:20 [facility] POCT Glucose Levelon 021 Glucose [Mass/Vol] 137 mg/dL High 74-118 [facility] Comment on above: Performed By: #### 4 [id number] #### [facility] (DEFAULT) [address] [place] [address] Glucose [Mass/Vol] 111 mg/dL Normal 74-118 [facility] Comment on above: Performed By: #### 4 [id number] #### [facility] (DEFAULT) [address] [place] [address] Glucose [Mass/Vol] 151 mg/dL High 74-118 [facility] Comment on above: Performed By: #### 4 [id number] #### [facility] (DEFAULT) [address] [place] [address] Glucose [Mass/Vol] 126 mg/dL High [facility]118 [facility] Comment on above: Performed By: #### 4 [id number] #### [facility] (DEFAULT) [address] [place] [address] Anesthesia Noteon 02-06-2021 Anesthesia Note Patient: ROCKY [...] obstructive pulmonary disease (COPD) / SNOMED CT 21894225 / Confirmed Hypertension / SNOMED CT 5221957571 / Confirmed Hypothyroidism / SNOMED CT 98994751 / Confirmed Kidney failure / SNOMED CT 54883662 / Confirmed Diabetes type 2, controlled / SNOMED CT 721617867 / Confirmed Physical Examination VS/Measurements Vital Signs [...] on: 02/06/2021 15:15 EST] Jeff Bunn MD [facility] Anesthesia Note Patient: ROCKY CAMARA Age: 75 [...] obstructive pulmonary disease (COPD) / SNOMED CT 23771118 / Confirmed Hypertension / SNOMED CT 1569221163 / Confirmed Hypothyroidism / SNOMED CT 59370814 / Confirmed Kidney failure / SNOMED CT 38324971 / Confirmed Diabetes type 2, controlled / SNOMED CT 872076654 / Confirmed Resolved: CHF (congestive heart failure) / SNOMED CT 38496032 Resolved: CAD (coronary artery disease) / SNOMED CT 49704178 Resolved: Breast cancer / SNOMED CT 674520491 Histories Family History: Aneurysm Sister Brother Brain tumor Brother Procedure history: ESWL of kidney ([id number]) on 12/29/2020 at 75 Years. Comments: 01/19/2021 13:20 Kristina Johnson RN Left Robeline node ([id number]) in 2016 at 70 Years. Lumpectomy of breast (1151261041) in 2016 at 70 Years. Comments: 11/04/2020 13:16 Chelsi Paniagua RN right ESWL - Extracorporeal shockwave lithotripsy for renal calculus (521382392) in 2007 at 62 Years. Hysterectomy (522183983). Tubal ligation (709459124). Appendectomy (855382429). Ganglion cyst of left wrist ([id number]). Laparoscopic cholecystectomy (54475471). Colonoscopy (045590213). Social History Electronic Cigarette/Vaping Assessment Electronic Cigarette [...] 09:10) Review / Management Laboratory Results Plan [employer]#(ASA) physical status classification: Class III. Anesthetic Preoperative Plan Anesthesia: General. . Anesthetic plan, risks, benefits, and alternatives discussed with the patient and/or family. Patient verbalized understanding. Anesthetic technique: General anesthesia. [Electronically Signed on: 02/06/2021 09:57 EST] Jeff Bunn MD [Verified on: 02/06/2021 09:57 EST] Jeff Bunn MD [facility] Coding Summaryon 02-06-2021 Coding Summary HTMLBase 64 AvzbjvfpGEd7sXk+PGhlYWQ+P V5NIVDjV90ocOAtmE5HO3fIWS 7WOVVWXRXZVU1TAD4mxPP1OTh gG6UvmrGp AbapjYFjEY49LZn0AHX4xEzdR IzzjI7awULjA0a8KqWhKP08eU 44WSzvUTRsDrW3CaHnxqfbbXE y R1tiIkAroMQpYgn+PHRhYmxlI HdpZHRoPScxMDAlJyBzdHlsZT 9oJm5wIYZxPDNdvWnafDNlSiV j i9qfBMFsBSjxFA6qsAxdP1Bgs YZ0ASUjs9a9Ex73kBD+PHRkIH N6dPdjKQgiu457DbBwc3hqLOF 3 kXYhEYbfWKW8W47bp9Z4GDHsR IHnTYQ1uCT1lA9zvEbhahetO5 NdsBIlKcP7DFE2eIBzwA1oqVt n iddrdO3oYqm+F97DPK8TYNEQT U6TXis6M7CdDkujqMA+PC90YW FeBZ12uHDnkTWlc7wgnLp8DpR w FYGxZLA5nNuuKUmss5ElKKVjN 13zyNHxj2O1XZGjpKsghWArDn XjrGS1xQ3qUDpxzbtan1mvzsy n Lgice5nyok68gI52L72yDOtmX CXrQFJ0CNUwTTZhzMtgey9grY 9wIi8+JWvgc5thc0uxqRa8VhY w KSBrllHdbPjwAGW2z0KbMd78H 3OkzBgit5HhGjf3sf03lGDxz5 G4lVJ1LTnaMVYdhC1aEJemQuG 6 XBYwXrUfrR58tTVxKShrUg7pr GurbUkmYG0aQXPkocxkDBZpjV 7pDOOivOCjnIgoIT8aRKVvbcp m r364RsWwMRN9EGYqlINcM3Zib P4qCnLkNEJlGVQkD7HyeJWlVB mpL370PUlsZuH8WYNfnqVeZ1O s STLseUxuOoZ9x5L6Ma4Xk3Com uqhSBO7TEzdJRBcWvJ9KjHiOg S9O8TiGou6HDGdiUedXE4eF2P h VKXevpqzbgkmqIC9PMZuAUIpz G18mUNnADviZs4cc3T9a762VF StSQBbjT72Sh9exOcfQXGrvEK U rI2zpxvxz8zdndloGmNnDOJkS Hx0BYc4BZXtrBqyYyRlDVJ8Xp N0TDO0bUUjoZ0ujXkogyovfC1 w Oyc+R22jgX8eDFG5ZRP6jlrzD YCbveSyXK91PY94H8ZoQvpuoO FibGU+YNBrtbMgcCouZH4tZdI j h3tzc6PzHCmuB0CcTFOeGKigT dn9VWWfUFA4fZA5nX5yZYRgSN oyk0Q1pAJ8X9VjkkOedh8gd4w s GKMiUFibN03ntWXvb6Q2UGVkt KH1EDMwrLpgMrRdcV58Rsv+PG XemHomy0WjHkxop6igt4lmmTc 9 XqRmUWHfevXrfHpfQKD4i9GeL g69S77zQZvqJEExAWJrNLQiMZ NjfQgbce7rgN5fMz0+PGNvbCB 3 mRF0bU3wYKKyOgQ5YHjoU961M mVmrIZvAscsz7egl5plqUj3Jq GnQUHtyrCvlTbeAKI4y5AtRl0 8 S12aUVoaAGXhAQJwXXXeWCUer Ctxzw7xpZ0pYd5+TN1kp2kgvl 21hQ50hIO+DXPsFFD7dAkvMFk w QPUkwE0uYKxuBgJ4JJQdAqZjj Y43qRUnNWpoAh3ujVrwrLxhGE 4tTWRlumuol095XhFul8zpYKI w zTTaCPjxLZQ8P02px8X3LOTtW CEmEQT2qNU8vZ5vmSzukurbkG LpaPcajkJkhRacAVimHNliY00 6 IHRvcDsnPlBhdGllbnQgTmFtZ Pj7G0DqLam4FTDnmYloPT0siH PgPWjhGh6xeDktaZewQH2mGPT p bnhcx862BnFba1dcVUYxqRNqG MbjLOL7T69nj1H3ZHBtLLNlXN F9jTZ9yF8fxKghhyhbkGMvuVf g jcZtyWlkPQalOMfsA430CBFfu OhmGjSpswJnCOKjmEI6XP83RB 97gSHlp1Y7fAL3Z9OtZXBcxjn t obfncKS0EIQyKODoyG37Wq6on VycVe2rWHOsHRI8BQXdxHDlQ8 IwgY3xFgLnPJCgJVSkW7TzrLZ t MOcrI529XZhfRhO9IZOnbaXgQ 7QeLOMwlXlxWdH5m3L3Dp9QX4 L3JT78BD22gNCez8B2oVB1I9B h ROHcsifbedmzqAL1BEHiOGXen I35Te3jbIrhVh5cSRBnGJF2SD TeiCNdS2EgfC5mYzLlPLFwFEN w R2LdvWUuHEbbU584DZecOvS3E BKnpzIjP6BjPAUheOizCbS0k6 L7Ij7JJUl6TB95CK58jEIpi0G 5 rXD1R1UvBCVmtozguomfsEQ0V GNlANFrqL38Wp4dkQjhVa2pRL TzUNV5REGuuIMjH3GqmY0tQkR j IOSbWTFgA9SizGRjDVwcZ160E MhjHaH6HFPlbmHqY5VyYUWraA bwBiA4g0J7Wx1LUOLzZT96JMC 5 oNZ2NK76YJ54R1UzGjfexPMcd +PHRhYmxlIHdpZHRoPScxMD QrWrVqvDlrMI8eEr3rDEDnIGV v iLhifARqEqVlw0vrZWLtJFexE E9ljDqyB9PrqZX1HIEnk4t0Rp 32E93pL0RysQZ+PVQhrSD9kAZ 0 tJ6iNdItKaZ1NSarS244ArZgc YKmTlzji0tlr9pfgWf9JqE9CM HyatAjxDiuPXC2d6DmMt25O03 s IHdpZHRoPSIxNSUiIHZhbGlnb q5swN8aZo0+DFCfkYB0cFX4zY 5zJuXnElH2UYbdS917MtCnoUM v Rhhnn6gwh6kvdJa4BfSfQEHcs xXqhMblMAB8x9PxBc85Q0MpuE lbq3CgGop8kr18eOXcy0J6pJM 9 D9PyBIWvlpzbdOPcyNvwRL5qF DWftujyOTMkaP1uXRNeY9z6Vo OxJbH4MIgoY1XyzpC1IQFlgHJ g PXprDGM1K59be3A3IWTqYTFlB DI7jVT3rU6fiRfzlqvwhVCbkA ssnpLjpHwlXVcaKQxmW096QLH v aIttRVQkiO9dODTqqJKwzQmnW I9gFGUokmbtSq4PGP6RZXkfMd 8IZ4TnVXzxkVU+ZNQaDNK5qHg l FTffDPDvzQ3zSSGxU9d1DvSeH mM4IOutT7AwRWCytbteEk38wI 8cGaTzFfS4AIioZ1EkzfG6VUH w eUEeWZtvHIV3R17zo4K3SCRxL BKyUQA1sRB3eT4leAvihxmshS QgiNddmxLniJicQIhzIXruJ36 6 AVNfqMgoXvC5EgFsBwC2HZg7J 1FyCqt1MNAjaBbcSP3uaPKbHZ joBg5flSnecXggPI5fJHEkdxs w KFNqyF1fFIFpaOSvxNnvGN7uI SGlcjniq600ByImIBM3DOGopO IhK8ShgW1jQdItTVLoYZFyH3I l gKOsRLqhN841WApfQkA0LQIhv nFcK1NbFRPvfZvyCwB9v5O7Qk 43MyBZZWFyczwvdGQ+PHRkIHN 0 aAfnTJkoQUClwL5nNEChS9j6T vBpNxB2IShiU1StIUKjgzadBy 92pP5cWxHtHcV7TYatX7MupsF 6 TPApoFOwZOapUTA9D15wb0T5S HNgXEEmWKS5aEY6lR2zmYqdrc ogbGVmdDsgdmVydGljYWwtYWx p N117EKTjcKocAsGNKNYCTAzgn GQ+IYYxFFH0eSvaFDexUPKrnJ 2oEBOyV2m4KqKqAmV5WNfmP9Z h LEPbqpthGh83qD9gFyXhNmJ0W AekA4CqyjX4VUSiuPPkNBdwOC K3Q94da0J9BGZwUNFoKMP8lRG 4 lS8nhUqojvrupGBicQzjpzApp XcoMHllGLtiQ920QSDxxHptKd 1UAJ57JD90N0TiGuagpWJgwSC + PHRhYmxlIHdpZHRoPScxMDAlJ aYlcEgiLJ0mCo5fBDDePJOfsN tliHJsOwVag6zbJRRsVYnzIA8 w bYsbG6NcgVL5TDDbd9d2Sf92K 50yV7ReyGE+FDZleSZ7eBZ1oS 5iCpXwWkV1CFuwP028MiEprWZ v Jogmt5goh5djbTz5CiYwIZBam yCkdDtlSYZ4h8FbJk14L21nOI dpZHRoPSIyMCUiIHZhbGlnbj0 i aW6xDi5+CXNdkUK6eDL2dN3hI uTlQxL8ONxcS032BsKnkYDtUh jsV17lF9GoiDF+TIEpRmg9PHY z jBxyQR9jxJCfLTidWa2hDGX7U dCfDeDiFPwyQ9QnWJXncwuuxh hixMK4DSSmJZPzvI76Gv7gzTi g Ad0yDNSaEEI1PXSpuYQdS7Vmm D7oHfVaTZYzATDuK0AucFZoXO fxX308LRutVaV7JKVusoXoQ8S s CDVjiBhnLvI1r6W3Vz1CuLnha JTqJU3uDuYvIMt8N1GjQaw6CW PibEnvDT7geBMqQFpgSo1koWp o uSxlQE9uIUEvyfcjz196JjIpc 2kcUMEggPJwWPoeEKL2K53qa2 O0QBWzAYVxREY1uUC1aN7yaNf n bjogbGVmdDsgdmVydGljYWwtY AvtS287CVXgcLxqMpKIIne9Z8 HcXpy7OBSutVrlQT9ezSBvRVi u Kt5bnYwxxNhsOE1zQTHjzavjs 795RdTsr1lrKIQfpQQgNDonAF Y4D24bt5G0DCWqHMOlBVJ2nVI 4 nI7yqHjpakutrJCkpZcanyZbg GskDGxjDHbxO991OXOuwWspGs 8OSkj4F7NnKdr7IBXruYcfYG9 n dRXfNAanYa2yeYfriHgpFS6pV CWjqjsys414TkYdv1uyONEuhT XiOOraGJK9J79ew8V5MFSrJOF w PWW2oKF6oA0pxMilzcapzJLob QrcruZxlZikKKzcXYxdX793KM RvcDsnPlBheWVyOjwvdGQ+PC9 0 is81S6KxWntaNjw6RKPyVDR5f UI0wC6jAKUySRiuv2M4tSL0E7 YtidGrzo4cx6jsMFLtFFcxC00 s bGF (more content not included)... [facility] [place] [facility] [place] Summary Primary Physician: Bernadine Diaz DO Finalized Date/Time: 02/06/21 13:59:40 Pt. Name: KATARINA CAMARA/Sex: 1945 FEMALE Med Rec #: [id number] Physician: Bernadine Diaz DO Financial #: [id number] Pt. Type: D Room/Bed: [facility] Admit/Disch: 02/06/21 08:56:00 - Institution: Case Times [...] Diaz John M MD McMurray CST/Gómez COE PROVIDER RELATIONS MANAGER Role Performed Surgeon - Primary Anesthesiologist of Creamery Worker Record Time In 02/06/21 11:42:00 02/06/21 11:39:00 02/06/21 11:39:00 Time Out 02/06/21 13:35:00 02/06/21 13:54:00 02/06/21 13:54:00 Procedure Arthroplasty Total Arthroplasty Total Arthroplasty Total Hip(Right) Hip(Right) Hip(Right) Last Modified By: Jordyn Young RN 02/06/21 Jordyn Young RN 02/06/21 Jordyn Young RN 02/06/21 13:59:33 13:58:05 13:58:05 Entry 4 Entry 5 Entry 6 Case Attendee Nanci Blake Kristi L PROVIDER RELATIONS MANAGER Jordyn Young RN Role Performed Creamery Worker Scrub Personnel Refrigeration Plant Cork Insulator Time In 02/06/21 11:39:00 02/06/21 11:39:00 02/06/21 [...] RN 02/06/21 12:18:2 (more content not included)... [facility] MAGR PACU Recordon MAGR PACU Record MAGR PACU Record [facility] Physician: Bernadine Diaz DO Finalized Date/Time: 02/06/21 15:03:15 Pt. Name: REGINA CAMARAYCE Stella Vo/Sex: 1945 FEMALE Med Rec #: [id number] Physician: Bernadine Diaz DO Financial #: [id number] Pt. Type: D Room/Bed: [facility] Admit/Disch: 02/06/21 08:56:00 - Institution: PACU Case Times MAGR Entry 1 In PACU I 02/06/21 13:55:00 Discharge from PACU 02/06/21 14:55:00 I Last Modified By: Maria Isabel Lewis RN 02/06/21 15:03:13 Finalized By: Maria Isabel Lewis RN Document Signatures Signed By: Maria Isabel Lewis RN 02/06/21 15:03 [facility] Nutrition Noteon 02-06-2021 Nutrition Note Pt admitted [...] changes in wts, intake and labs. Normal [facility] Operative Report - Surgeon/P mily 02-06-2021 Operative Report - Surgeon/Physician Preoperative diagnosis: Primary osteoarthritis right hip Postoperative diagnosis: Same Procedure: Right total hip arthroplasty Surgeon: Mynor Diaz D.O. Anesthesia: General Indications for surgery: Progressive loss of function and increasing pain with radiographic findings consistent with advanced osteoarthritis of the right hip Estimated blood loss: 200 Complications: None Findings: Zcrd-tw-mrlj in the right hip joint Procedure summary: [...] on: 02/06/2021 15:23 EST] Bernadine Diaz DO [facility] POCT Glucose Levelon 021 Glucose [Mass/Vol] 207 mg/dL High [address] [place] [address] Comment on above: Performed By: #### 4 [id number] #### [facility] (DEFAULT) [address] [place] [address] Glucose [Mass/Vol] 179 mg/dL High [address] [place] [address] Comment on above: Performed By: #### 4 [id number] #### [facility] (DEFAULT) [address] [place] [address] Glucose [Mass/Vol] 112 mg/dL Normal [address] [place] [address] Comment on above: Performed By: #### 4 [id number] #### [facility] (DEFAULT) [address] [place] [address] Patient Handouton 02-06-2021 Patient Handout POST OPERATIVE [...] done to rule of a DVT. Normal [facility] XR Hip Complete Righton 12-0 XR [...] 02/06/21 4:53 pm Technologist: AYLA CASIANO Normal [facility] 2018 Novel Coronavirus (CoVI D-19), [facility] LCon 02-03-2021 SARS-CoV-2 (COVID-19) RNA ABIODUN+probe Ql (Unsp spec) Not detected Invalid Interpretation Code Not Detected [facility] Comment on above: Order Comment: [id number] Result Comment: This nucleic acid amplification test was developed and its performance characteristics determined by [employer]. Nucleic acid amplification tests include RT- PCR [...] detected) result in this assay. Performed At: [facility] [id number] [place], [place] [id number] Andrews Mchugh PhD Ph:[phone] Performed By: #### 6 [id number] #### [facility] (DEFAULT) [address] [place] [address] Progress Note - Nurseon - Progress Note - Nurse Spoke with pt rega rding arrival time of 0900 and NPO. Verbalized understanding. [Electronically Signed on: 02/03/2021 12:36 EST] Monalisa Miller RN [Verified on: 02/03/2021 12:36 EST] Monalisa Miller RN [facility] Coding Summaryon 01-23-2021 Coding Summary HTMLBase 64 GonwgpxeRQv5gEh+PGhlYWQ+P W9LNBGtY05ryWRiqI8FB8jNPH 0GGRBLAOSPRD2KRD3eiJA7CGs qL4VfidDf TpnifVEzJM05UZe5QJP0sWylG IhzqA2fvHCkE5b3ZtHjKE62mC 57PZydTEQdJaS6HgJgyrpujNE y G5fnYcWedBIpTst+PHRhYmxlI HdpZHRoPScxMDAlJyBzdHlsZT 4uYk4wBOIcRXOivFskqBIuBmU j d3bbUZFrMNpeOS3tuQyyZ5Ymp RP7NXCpb9o7Nw64dMG+PHRkIH U1kYxiHJkqv010RtQkw9dwSVJ 3 cINnXWukYNO0M86da8K4JYPsS UTqZWB7zNN7uH1xoYrjqllbU7 TziJLdMpP3WAJ2nWBtsQ0oqDx n caqubV6qQqj+O39AUQ5QXSKWH W1VLtf4S3JuHkbhtYZ+PC90YW UvWL54wADjqOSzi9ypbMo3FdR w WSIvLCC2dTfdNXuml2DeMJWhN 02njYLft7B1XXWohWwdcIEdCk JkkWO3sN1jVLugnurlh5amlbp n Hmfmb8yuxp67mZ94O80zHXpcB NRcIIB6CLDvVQWgeNytwf3vyA 9wIi8+GPnie3tjp8nkqRo8YoN w TQTwduNwcRfrIEB8b6AqSp79K 6BpcQmbd9FjJbk0iv28bYSfy7 B8vCH6ZNhkZLGftX3hDEucHfI 6 OQVlAmNceU16kZWgELfxLh5qw LwekMywBC3zLDOotwmyUZUlpK 7tUPSzqFIllOixZS9dYOPoiiq m p998LmMcRIL2UXGlqFGjU2Mnh R7yJcJaSUKmOXZwQ2OqaLAlQH adA362NOovFpL0NHEhxsZdA0T s GCYoqTkkFnK4m9U0Ix0Hc9Qth ohySCN4NNdrGETgLoIeJlUtDc B1L7VjWil3OJPaqVhfFA4fM7F h MYWkqsmipclgzLZ6CSEjNBKtj K41fFBsTXkdEp1wk4D7p638BE MaEPObiI59Jm9cbJpxRJDxeNX U zO6tkqxnf2shkoluJzXtGKYcY Bu5SJr0KYCmkZmkCvPmRDB9Ec H4ZNH2nJRdlO7lkPgtzjmqyM3 w Oyc+C22viE9uBSX8XGE5ncfwU RRidiDuYJ44QV68W7FoLcmpjO FibGU+ODBavmLzeUjpRO7lBlQ j t6qnz5TaGDlbC8PqMQXkGIneR uj8UOXuECX8cWV1sO1gQIBaDV emy5M6yRA6K8XbwoHkki5eu2f s WFSmURinZ01zpNTxl6Y9SWChl XD5RIGdgKyhPcXoqD42Eku+PG PmfFvfa4IfXhnvx3tdl3tszDy 9 HoIyEJMtgpNutYtmWRH3o7BgA m46G21nFOiqCQVaAZBbFFBjDZ NqaVztog7oyK6zXp9+PGNvbCB 3 aUN1pU2mDGFwFyN4UMucL643O dVytZOnZsjcs5hyd0rmxVx6Cm WhENIqueXsfSieFKY0p5SsFa4 8 H48hUEmqQKFlRQMrCOIvUBNgt Qwydr3cwB5fCz2+AR5cv8cdoj 52mK40kXJ+FZCxDFE0bZktARr w ENCtoZ1xNRfgGxP2ZNDoAjYie Y21lZMpEHemOm3tiXgjmEaxEN 9gYLGlisucn906XsSvr1ybFKL w vMCiIMgeXRO1F20xh1I2PVHyF BLzBLN8eWU7tT8edIpwlbrboS UrtSqcbxKcpUbqGPmrTQabP31 6 IHRvcDsnPlBhdGllbnQgTmFtZ Rv7G6UvHwk4FDPmeKlzKX1niW NmMDcdAr0mpXwpgAzmQX8nAVD p krofo055KmAcz8asAQPiuZVmP MujOEM6N82ye1C6LFLaWNDbTW U6zCF4cJ7alJcbabholWCgyFj g bgDetLqfGRbkWIqnR607KDVzm EfmEeHfznNsSHDkhGV5MG11NV 67gDOdz2A5jBP3Y1DqCPIjgmh t bkanuNT3ZUBbDTMuoY33Ek8wz RxdKg6cYBGfDXT8GWYnxLMqR7 UuuR1jZjWrPOXxOLQnX2MmfUG t CYdcM210GTjfKkB6ZRIevqZgK 0NsDVRxkDmtWcZ9c8G0Pk0KQ2 Y6UD26BK51qYRak6S4gOM2M4C h YMUpkonnitsoxMF5JOZeREFfx E69Ek3fdFxdZh8nYBTiOSX6ON KfvKPnS8FkjN4nAjOjDUUrVWT w X6XvvYFfJZpfM895UFftRgO1J ZComhRlY4SjGTKxzVyjDkS7i6 O6Tb3ADXr1JJ87PT29yLFrw5E 5 fZN9B4IuLNYchcgetfmyzQF4C ZXjJTQmwD17Ly4deDxiDd6nGW ObCUG9RUBhnEElV7PxyN5qRaB j QHDbRAWjP0ZjaVRgZHfgD630F ScaZsZ2FMFtbzUyA3AzYYBepU vpKwW7d2Q6Cn2BTMBbGA39NUY 5 uQY2ET41ML66M1DsYimdnYOou +PHRhYmxlIHdpZHRoPScxMD HoIyAciPiwHU3yUm7kRIZiIAQ v nYyglNWcXbVay8eaSPLxZEfxR B2zjYznL8WxwAV1NAQnd0j8Gf 04I74vH3AidWV+WLSjpNE1aDK 0 mS8vNmDsHcA8PFgvE019JwYmo PCgLezap6ubp3fhjGe0NrH5RP TnjlNmlPhbOEO1p0UwGi11X51 s IHdpZHRoPSIxNSUiIHZhbGlnb f1zdV1iAb0+FCOubZM4mNU2dD 2eHyDbZeX8JTsmR842HeTzsVS v Ifhwj4hgo4dqgUa5WbUyXIJwq yJadZtcTIH7v9OsWe13U3FydB alt0OxBqv2xv61bWNec8O2fSA 9 C6DlDNGrcrywtELecEgdNU9eH CLcjskzCDKzeB8hXCEtL2u0Yk MnEdM4FFnsQ2IxhpC6WYTfjHX g QNwdZCK6O84vw2Y2VGQbWXWtC XI2xBW9uA1tlOvzwftxwZHveL jbqwWqlWmeMMgbCPrwF430OHP v yDseSMVvxB3pXTIacQGrqFemQ Q7cNQQwuaevBh8LND0HGUwcVl 5ZJ9TjKKnlsRW+GZXqGKA2vZb l GVijAPLuzM8rLQNbZ4r4AlSuY wT7HTcgF4SaBAFujinhYj87cC 9xLpOeMyE0HKczN8WxeqK5RMU w xNTiBEtwBON6H05pq6M1LQVwE DHwBNB8gFF3qZ8xaQfskkireJ TbgEeqypPdhBwlUCyeMIdgT38 6 SKTnhNohPpI2RkNgIeL6RIz4U 7ZgWnk6LFLwpDamEM2qoNUyKS hvKs8pwQvhqWvaTL7rHVCfscr w OAAibD9nKYRfoHMujYcqLP0dD NXigsjuh630VlIkRVK6HFYtwV LjD2IzcL6wEiCsTBKjUQAdD9Q l hPHxGSynM670EQziTkX9TFCwb tNkK1RoWWPaqKioVpW9x2D4Vh 43MyBZZWFyczwvdGQ+PHRkIHN 0 kZpdJSijUKIioW6tSYQkW6w5C aAzQwF4YEarV3BqABEykberGi 15pH3kBuPhXoP5PGveY5DdqkT 6 ZNOkmXXsOVygWCI0G59zp4J7F JWqUPNdRRV9hKV0dO0jnHmgrb ogbGVmdDsgdmVydGljYWwtYWx p Y732TDCsiKfsAnEJJOLLGZnqk GQ+CVWuYEI9wZuvPSulPMBrhT 5lDROdA6t7PtLfGfN2QXyyN5U h TPHejlduLe82gF4cDbBfAlN3T VryK9CfjrF4JUArpYItOAzjKC P5H11dy4V6GHFwYJTuHZS1rCY 4 vM0sqBkwjtjzcFZewCuyxoWko AjaBEimFHdlY267WPDbjSnmIm 5FBP32AY15A9WuPmtdoBAptYK + PHRhYmxlIHdpZHRoPScxMDAlJ hUosRlaNO1fPp4aTBRfXPIjkE rrtMNjDdQcy4lqSJMsIUowDU7 w nDkkE4WfqMT6DQAhw2v1Kr49Q 08qW0XoxEV+EQDbdDN0nYC1hM 3lUqGdTsI4LFqyZ859UlOwiVK v Niptz8amw2ohyLx2XkOdPSJfh mQonMcuZBK6h1ZmRf56C94mDZ dpZHRoPSIyMCUiIHZhbGlnbj0 i dD7yPi1+EGByqWV5dLM6sA4qE bHpZaV5OZmvM317CxIuoXEsNh hdV30dW2TcjAU+XIOkNou2KMH z dNorBA9moBHhQGjdOw5aUYO7S aZiYhJaFAgpL5HwGSDggehloj ztePR0JZAjOTTauW90Wr9bdRt g Zl0fROQdCBY0BFSalMIaE2Txb G8kFePqRDLcPLFfV4HsgTCuLM psE801YKibGwF9WOBfiaCvY1E s YKPucVocCrC9i6J7Wk2GmMcck EWeAK0jZfRsHCb5A3PoMzg7IS VpfLljGO3afHIeDKvfZp3boJo o bQpvQH7vFWZrwgmcm548OvQfe 5ezLMVjaYUjSEnjHLQ4J93bm1 W9COHdESHtBSJ1gDL7jH7qwOb n bjogbGVmdDsgdmVydGljYWwtY ZjlQ445WEXsqHafHbIURtd0U8 CjUnw0MCHtbBmtWO5ibKBaBDh u Hn0xqZfxcDfeCU0tVEOlhiort 396RbKzr5ydQMNkyNUoQQlqMK V4X40am5W7PLIeKFJxNPW4fVO 4 sB9ehRrqiqxsdRCjkJuwwrQwk FodFFhcWOnyT691XZEcmUefBh 8LDce2G1NkFev4PNAzrMasZW0 n aEKjYSgqRv0mhUyjnOgxOU2bG XJnikswc332WaLrk7phXRWhuU AsLBiqREH2J56jo6U9WDHoBBM w KGX4bRE9wC5qxAkgqwkqmZFwm BkjbnEzcYhvWLwkIIwiV927FU RvcDsnPlBheWVyOjwvdGQ+PC9 0 dk52J8EyUieuUey2PAZwVLN7g LQ1rL3fQEUsBIjos7G2rYE5T4 ChcpDqei9gr1qmAENzKQvyZ99 s bGF (more content not included)... [facility] Consent Formson 01-23-2021 Consent Forms [id number] FF [facility] Progress Note - Nurseon 01-03 Progress Note - Nurse Dr Nicholson reviews p t chart and no new orders were received. [Electronically Signed on: 01/23/2021 12:10 EST] Halblaub, Sidsel RN [Verified on: 01/23/2021 12:10 EST] Martha Romero RN [facility] C MRSA Screenon 01-20-2021 C MRSA Screen Negative [facility] Comment on above: Performed By: #### 4 [id number] #### [facility] (DEFAULT) [address] [place] [address] Provider Orderson 01-20-2021 Provider Orders [id number] FF [facility] UA Inxqu0wg 01-19-2021 UA Bacteria None [facility] Comment on above: Order Comment: Urina lysis Microscopic order added on by [employer] system. Performed By: #### 5 [id number] ####[facility] (DEFAULT)[address] [place] [address] UA RBC 3-5 [facility] Comment on above: Order Comment: Urina lysis Microscopic order added on by [employer] system. Performed By: #### 5 [id number] ####[facility] (DEFAULT)[address] [place] [address] UA Squam Epi Rare [facility] Comment on above: Order Comment: Urina lysis Microscopic order added on by [employer] system. Performed By: #### 5 [id number] ####[facility] (DEFAULT)[address] [place] [address] UA WBC 0-2 [facility] Comment on above: Order Comment: Urina lysis Microscopic order added on by [employer] system. Performed By: #### 5 [id number], [id number] ####[facility] (DEFAULT)[address] [place] [address] UA w Culture if Ind Standard on 01-19-2021 Culture? No [facility] Comment on above: Performed By: #### 5 [id number] ####[facility] (DEFAULT)[address] [place] [address] Breakpoint UA Normal [facility] Comment on above: Performed By: #### 5 [id number] ####[facility] (DEFAULT)[address] [place] [address] Color (U) Yellow Normal [facility] Comment on above: Performed By: #### 5 [id number], [id number] ####[facility] (DEFAULT)[address] [place] [address] 18065 Glucose (U) [Mass/Vol] Negative Normal [facility] Comment on above: Performed By: #### 5 [id number] ####[facility] (DEFAULT)[address] [place] [address]160 Ketones Ql (U) Negative Normal [facility] Comment on above: Performed By: #### 5 [id number] ####[facility] (DEFAULT)[address] [place] [address]376 Micro? Indicated Invalid Interpretation Code [facility] Comment on above: Result Comment: Resu lt created by rule GL_MAGR_ADD_UA_MICRO Performed By: #### 5 [id number], [id number] ####[facility] (DEFAULT)[address] [place] [address]334 UA Bilirubin Negative Normal [facility] Comment on above: Performed By: #### 5 [id number], [id number] ####[facility] (DEFAULT)[address] [place] [address] 33256 UA Blood MODERATE Abnormal NEGATIVE [facility] Comment on above: Performed By: #### 5 [id number] ####[facility] (DEFAULT)[address] [place] [address] 29818 UA Clarity CLEAR Normal CLEAR [facility] Comment on above: Performed By: #### 5 [id number] ####[facility] (DEFAULT)[address] [place] [address] 02532 UA Leuk Est Negative Normal NEGATIVE [facility] Comment on above: Performed By: #### 5 [id number] ####[facility] (DEFAULT)[address] [place] [address] 96932 UA Nitrite Negative Normal NEGATIVE [facility] Comment on above: Performed By: #### 5 [id number] ####[facility] (DEFAULT)[address] [place] [address] 41453 UA pH 6.0 Normal 5-8 [facility] Comment on above: Performed By: #### 5 [id number] ####[facility] (DEFAULT)[address] [place] [address] 90449 UA Protein Negative Normal NEGATIVE [facility] Comment on above: Performed By: #### 5 [id number] ####[facility] (DEFAULT)[address] [place] [address] 96025 UA Spec Grav 1.025 Normal 1.001-1.[address] [place] [address] Comment on above: Performed By: #### 5 [id number] ####[facility] (DEFAULT)[address] [place] [address] 21593 UA Urobilinogen <0.2 Normal 0.2-1.0 [facility] Comment on above: Performed By: #### 5 [id number] ####[facility] (DEFAULT)[address] [place] [address] 20133 Urine Source Clean Catch Normal [facility] Comment on above: Performed By: #### 5 [id number] ####[facility] (DEFAULT)[address] [place] [address] 68522 Coding Summaryon 11-08-2020 Coding Summary HTMLBase 64 CftxjhmzSWi7fDl+PGhlYWQ+P Z7QUWTxD60qdEYyaC3XO1uYRK 5SGVDDFOVLQF9XGA0rvOM1COy qT9OneoEl ZchoqVBtPC49DKf2IPE9oTklB EeoqO4gwWXhB1h5QaDvDX05xW 16IApdQTArKgP2XoEnwbwbcON y G0tpHtUviFJeSkz+PHRhYmxlI HdpZHRoPScxMDAlJyBzdHlsZT 6bMc0zYGTbDFYkpEpxtUEoDkK j f4jsYYIhOBmrEN0fiBqwK6Kkw AY3UNCln8q5Bo80hYR+PHRkIH P5fQctSXrri912JeEwz3qgFHG 3 uJZzTQjeHSY2V80gg1S7KRTsJ JDvZDA8yTG7yQ1mnVkxmqoyO1 PbzBSjYnU5JSG6iTRudZ6wpAk n slfnsF6dBbh+U23BQX9HVIBZM D2OPbq1I9RmQqvbxXA+PC90YW TgET13cXZgjWPzj9orbYj3GfR w LBAbGFY1hFefWOssb3ZmJZSkS 39swLKyu9X2SCGabCwqtHZeUi ZgxOW2fJ8jHLvcgmbgd6umybi n Ujjmt0fpiq12qT10Z44nQWtsR HUbPUI2TBZgKGIxsEodxm5ekN 9wIi8+DPqyj1rmm9mtcGl6JfC w FHNlreMrsQyvDCY6p5BpLx58Z 3VsvUqis1MnPtv5hp19bEGyo9 I1dYI9JDyyLKUxlH9mLKzuAmG 6 SSTyMcWayF02pGSkLLmeDt0tm NskrBpoYB4vYUOfccpxTNItpY 6wJZSmeTQdoNydYL4qLREktfv m u112FdFyMEJ7AEKefPKsU2Lan B2uMoWdJJNmIHYdU8XikUDgCM jaX154YIkcCxF8ZCPlwqJgP0K s IPMbpJqsEaZ4h1G4Si9Du8Izt gqlLLY5ZAkgTNM5WtN0PaJmUw F3V7YtDwm0DVNzeVluDQ8yM6R h ZTCjffjyttpfiFY3WQXcLGEuk J85cANlOYqpMp3lb4Z4d687OS IzQKQgmV04Kz2juFuoDCAkdWE U jL9asgrgu2nrkhswToGwJTPgV Cy9YXf1BSJdwNjeQqVwZVM2Lp J2BPJ2lTOyuC3muKxhlzyawV0 w Oyc+P59fxK8vHBG1HIA6pbpvZ QVcpeYrQC25HW61T0DoRhdkaT FibGU+RLGdnlVkhMgkEB6gNsI j m6dlx5NiWVmlF1KkERVyFFqoJ ka4PGQjRRN7rHY9mA5xPFHwBV wwa8K1gON7D3XzdbYihb1lg8s s TLVzMWyeY11zpAFke5Y5OCGfs JT6XJLqjDalPiIluK15Zue+PG RjbZcrd3XaLldbt6mis9lgaRp 9 UxLkSMLvuhVetOfbDCK0q9PpB o76M47mSJlfZSKzAOEsFIZqSU LmvEqqll1opO3lYr6+PGNvbCB 3 pBA1lT6aWHUpKqV1MEgyS048B cUywMTaMljhf8wqv2txkVv5Nt ZuWPFxruYdiKleNNG5t3MyRr5 8 A15eIIzoAQSeBCChYJYgFTOrw Phaaa6zjA9hGs2+YE7nq8hnvw 60gH80xCF+SDUsWVJ1zIbhUEx w GIQtjD0dDOpaPcT5QTIsFwOpl T32zCGkVOlvZi9xvUpohHkoWG 8rOHCwqhumi458LnXqs1zpGAK w qOKoNEznNNZ2J61lp9D6XXFrW BGrIPI6lMM7cA4vnGlrgtsjqJ ZqiVdmcvFdhFenYYyrXVsjV02 6 IHRvcDsnPlBhdGllbnQgTmFtZ Lz8T9QcYnt3ZSOchPfnPA1mnL PaXPwmEu5cwHadbUwpNW7rDBJ p kseiu226BeVvt0rbMQYqcORvI ZieVPQ2B63bi2J5LPPdZOXqWB L2zWY8oL4hwHeqobwnhQUuaIn g ttKtlFgoQNfsJPljL742UBLaa JdsGuRyqwNoDUBmxRK7PQ88EY 00nSHoj8P1qUZ9Q3NaYHBgzxb t ailyeBQ1AMCdRQNcgZ37Eb7fk GytKz4qCMWlUUW3QCDcgTSxI4 ApqO8cZfFkPIXnPYSgJ5HrxPO t GZdpJ639QAhhReC5KKEgxaXfF 7XvYWKbxRtyHsF2h4M5Af9GJ7 D4YQ75PK45sRJno4H0cKD4C5D h AYGtxjuhqgojoFB1EFSzUDArf T21Gg7oeIxsAl2aDMGsQLB1QC IaqHGrQ7IqhW1uAvCaSWBjJZU w N8IkvPPtAEcpS661FGhrCnY7I LGzeoFwX3GwEBJfbOmhRfV0a3 F9Na1GDDh4XJ46GB21bDVnu5Z 5 gHP5H4CnIAMgdynnubtdjUM3C VXyRYEoeQ35Ot3joGxbUp6uLP AyWVV7TTKgvHZxV9XhcS1xAnI j AIYlWZQcX1TweEFsWNpuI528M DhuCkH8ILOtjvVuW3AgLFNtaQ fvZaZ9k4M7Ub2HRLRnYD17KCN 5 rSR3HW54PS35Z5LsUlblqFGcj +PHRhYmxlIHdpZHRoPScxMD EdGcVkoYtfNZ2sRw2xXFMnUTZ v uNwloHGqIwTmv7bkEHQcBJcfD M5egMoyP7DlvBL0MQMrt2u0Re 79R45nI2RhtQV+QKQlwDD0sQG 0 uJ9gYsGnMoE4MVdsQ976XlAvz KMoUtvas5usf2vowKk2OxX2LG WyypDdwXafDMB3l1KtJo30D49 s IHdpZHRoPSIxNSUiIHZhbGlnb x9vjT5kWe5+ILSysTW3kYY8vE 0tAcEzNyN6TLwhM108JnRiuSU v Nhkhu3czl2qnnRh7LeWvOKXqz jFboDskETJ1s9DaCy79G2QpsF qsp5DsPkh1qh22fYPgf4I2qFD 9 D7CeKCTspeczjJUapPvxRA0cG GQdjpzkULTdsB0qRCOlW7v9Gf DiKgU0ELijC8SxvtI6IMHbjFT g URnoCGO2G88aq6C7IHBxLTTnG RZ7rFN4fO4jtIukmoxucHFqgF yavtJadLfkKHfgDGqoM259JQK v qUjiNSRvpX5dAVNarKRxoPnhU B5kHCJmnyciCe2EDV8KJOrlYf 6UI3VbGXxbyHZ+JGOaFYS6hUj l NZvwVSPrsO0vSMNlS4e3WlXuQ cC4NHtwR2IxQUUnijzkFh72fR 3jAjOrCjP1MWteB8WezpI7TDU w sCAoAXfxQIB7R47pn8Z9NUDfQ QLwEYK3rCX4oU8mlCplcpzabZ LmuEowdwFrgMaqVMnhDAhiR08 6 CMDemTipHhL7TdFvNzY3URq6H 9PsLqx8ZWOivRnaLP9pqZGyAG bhDg4vtBqtvXntHO6jHLHztxp w LULyyS3dKPNgvTXppUepTE9cH ONupunda410QdKaVPB8ENQogH DnI5UkpQ5dEbNyIJUaMSBnC8O l aLBqVMxqX012DWbnHzM9EETps nTrD1HuNQOaqXnuTeF2i3X4Hj 43MyBZZWFyczwvdGQ+PHRkIHN 0 zYvzECspRBPpvP0fEPRlK1p1Z qOvGxI4PXndK7ZgVACsbwbsLn 12sP9pSdMrNmG0GWnnQ3IropH 6 DQOlfOChFDjhZIQ2J01fs3U9V XAdJZFmWNJ3qSG0uK2mcEqhjv ogbGVmdDsgdmVydGljYWwtYWx p W056ZXSquMxbAmETFBBBEAlxm GQ+DZZkROS6sPfxDVycCKMdnZ 2vOOMsH9d1VmBmHaN8WXxmA3K h TBTzdgjoWb35sT5fPtHjKlZ4E CoaI4TrjgJ5BHXmrRXeTNrkQV E6H67uh4N8BUQzEVMdSMX1kDR 4 aL3nqBcjoiedjBAwdFdrrdJkq LywXKgsZCjfX225GUQzkImzEt 6CCJ40FC69G7IgRxtsvDSotOY + PHRhYmxlIHdpZHRoPScxMDAlJ vMisZrcQX9oVm0tGQQhCEKcaO citHNrUyWfu0loNKMtTAohRK2 w yGotW5MvaUY4YURoy6a0Qj92B 93cN9KgdDQ+EYEcbNZ4vIS7mK 0vFzCpEqQ8EDrdL809EbEznFT v Kntss7lhy7emkNs2DhQtWCLob aFzoPfnMVU1k2ObTu72G75fQJ dpZHRoPSIyMCUiIHZhbGlnbj0 i aC8zLz7+PZWutPI6sKG7gC1qK lKqBjV4UBjjQ980RgCzjIVzDj gfB78mP7VlrTJ+WMDzEnl7TFZ z mRbpYC0okVRoTBehVk0cOPF9V bKbEnBgRPdkQ7QwMRIuxkemeu fouHW4GNZpQJZheB32Az3miHw g Mi7cOVNpRNE9DZCrlYKtZ9Con M4fUhDeWYRyLYSbA7MmePBtDG flY056TRfpYaI4BHHgaaBqE5U s DRWkmVrcLcP3s6V3Kk4DwDril CFxON7fRfIkEPh9Q1FhShw3YG BrxOkrLX3cvGLcLOrtWw7xcEs o cRejYH1eUZBqgeiwe805PePxf 2eoZVXzaAJrFYqnZXD5F59ph8 O5TGAwONXqGWY5kIY9kB1ngSt n bjogbGVmdDsgdmVydGljYWwtY RbsP685JXSzwIqjIkCMJtg7N3 NeWii5VUOqkOrwAW6lgQIiSAi u Mj6icKtelAhrLU6iOUEmbshzh 334XnFwx2dxVASatCEzOLodBL M7O45vu2X2CUPnREIfTYK3hQM 4 tW4wcKvflrlekQTifQpcclVzi KcxFJqrLNjeI124SMDwsQtsCm 5WVzs4X7OyXdh1YXYdsFxpXL3 n gRFmEMfgOh4jdYamsObdBK0uM WQyfyidg063ZiPlt3ukKAUfsN HnMCmvPYB0R76fa0D1OGFgGEP w CTA8gOR5oI7ezTsrafmvqAXbg NanilYrgGrtXBhpLQnnI568TC RvcDsnPlBheWVyOjwvdGQ+PC9 0 ew29X7LeEjxdXep4ICYmPWF9z TA1iI6gBOXnPZlti7H6lKV1T3 IdnsSxhe9eh6zuQQNpQJkjK46 s bGF (more content not included)... [facility] Consent Formson 11-08-2020 Consent Forms [id number] [facility] Progress Note - Nurseon Progress Note - Nurse PAT review for jennifer parra on 11-28-2020 done per anesthesiologist, Dr. Arreguin- no additional orders received. [Electronically Signed on: 11/08/2020 14:35 EDT] Kristina Schulte RN [Verified on: 11/08/2020 14:35 EDT] Kristina Schulte RN [facility] Provider Orderson 11-08-2020 Provider Orders [id number] [facility] C Urineon 11-06-2020 C Urine Urine Culture ordere d as a result of parameters set on specific urine dip and urine microsopic results. <10,000 cfu/ml [facility] Comment on above: Performed By: #### 4 [id number] #### [facility] (DEFAULT) [address] [place] [address] .Auto Diff 1on 11-05-2020 Auto Cataño % 11 % Normal 1-12 [facility] Comment on above: Performed By: #### 4 [id number] #### [facility] (DEFAULT) [address] [place] [address] Baso Abs# 0.0 x10 Normal 0.0-0.2 [facility] Comment on above: Performed By: #### 4 [id number] #### [facility] (DEFAULT) [address] [place] [address] Basophils/100 WBC (Bld) 0.5 % Normal 0.2-2.0 [facility] Comment on above: Performed By: #### 4 [id number] #### [facility] (DEFAULT) [address] [place] [address] 37747 Eos Abs# 0.2 x10 Normal 0.0-0.4 [facility] Comment on above: Performed By: #### 4 [id number] #### [facility] (DEFAULT) [address] [place] [address] 34154 Eosinophils/100 WBC (Bld) 4.0 % Normal 0.9-4.0 [facility] Comment on above: Performed By: #### 4 [id number] #### [facility] (DEFAULT) [address] [place] [address] 74733 Lymph Abs# 1.4 x10 Normal 1.3-2.9 [facility] Comment on above: Performed By: #### 4 [id number] #### [facility] (DEFAULT) [address] [place] [address] 62722 Lymphocytes/100 WBC (Bld) 24 % Normal 14-48 [facility] Comment on above: Performed By: #### 4 [id number] #### [facility] (DEFAULT) [address] [place] [address] 19601 Cataño Abs# 0.6 x10 Normal 0.0-0.8 [facility] Comment on above: Performed By: #### 4 [id number] #### [facility] (DEFAULT) [address] [place] [address] 19355 Neut Abs# 3.3 x10 Normal 1.5-9.2 [facility] Comment on above: Performed By: #### 4 [id number] #### [facility] (DEFAULT) [address] [place] [address] 30912 Neutrophils/100 WBC (Bld) 60 % Normal 44-88 [facility] Comment on above: Performed By: #### 4 [id number] #### [facility] (DEFAULT) [address] [place] [address] 47173 C MRSA Screenon 11-05-2020 C MRSA Screen Negative Normal [facility] Comment on above: Performed By: #### 1 [id number] ####[facility] (DEFAULT)[address] [place] [address] 30933 CBC w/ Auto Diffon 1 Erythrocyte distribution width (RBC) [Ratio] 13.7 % Normal 11.5-15.0 [facility] Comment on above: Performed By: #### 4 [id number] #### [facility] (DEFAULT) [address] [place] [address] Hematocrit (Bld) [Volume fraction] 45.4 % High 33.7-40.4 [facility] Comment on above: Performed By: #### 4 [id number] #### [facility] (DEFAULT) [address] [place] [address] Hemoglobin (Bld) [Mass/Vol] 14.4 g/dL Normal 11.3-15.9 [facility] Comment on above: Performed By: #### 4 [id number] #### [facility] (DEFAULT) [address] [place] [address] Instr WBC 5.5 x10 Invalid Interpretation Code [facility] Comment on above: Performed By: #### 4 [id number] #### [facility] (DEFAULT) [address] [place] [address] Man Diff? Auto Normal [facility] Comment on above: Performed By: #### 4 [id number] #### [facility] (DEFAULT) [address] [place] [address] MCH (RBC) [Entitic mass] 29 pg Normal 24-34 [facility] Comment on above: Performed By: #### 4 [id number] #### [facility] (DEFAULT) [address] [place] [address] MCHC (RBC) [Mass/Vol] 32 g/dL Normal 26-37 [facility] Comment on above: Performed By: #### 4 [id number] #### [facility] (DEFAULT) [address] [place] [address] MCV (RBC) [Entitic vol] 92 fL Normal 81-100 [facility] Comment on above: Performed By: #### 4 [id number] #### [facility] (DEFAULT) [address] [place] [address] 39781 Platelet 261 x10 Normal 138-427 [facility] Comment on above: Performed By: #### 4 [id number] #### [facility] (DEFAULT) [address] [place] [address] 67488 Platelet mean volume (Bld) [Entitic vol] 10.5 fL High 6.3-10.2 [facility] Comment on above: Performed By: #### 4 [id number] #### [facility] (DEFAULT) [address] [place] [address] 81180 RBC 4.91 x10 Normal 3.70-5.30 [facility] Comment on above: Performed By: #### 4 [id number] #### [facility] (DEFAULT) [address] [place] [address] 06865 WBC 5.5 x10 Normal 3.5-10.5 [facility] Comment on above: Performed By: #### 4 [id number] #### [facility] (DEFAULT) [address] [place] [address] Standardon 11-04-2020 eGFR Non AA >60 Invalid Interpretation Code [facility] Comment on above: Performed By: #### 4 [id number] #### [facility] (DEFAULT) [address] [place] [address] 13987 eGFR AA >60 Invalid Interpretation Code [facility] Comment on above: Result Comment: Card Hand pepper Kidney disease could be indicated at eGFRs of less than 60 ml/min/1.73m2. Kidney Failure is indicated at less than 15 ml/min/1.73m2 Performed By: #### 4 [id number] #### [facility] (DEFAULT) [address] [place] [address] 73485 Anion gap [Moles/Vol] 15.0 mmol/L Normal 5.0-19.0 [facility] Comment on above: Performed By: #### 4 [id number] #### [facility] (DEFAULT) [address] [place] [address] 05528 Calcium [Mass/Vol] 9.0 mg/dL Normal 8.9-10.3 [facility] Comment on above: Performed By: #### 4 [id number] #### [facility] (DEFAULT) [address] [place] [address] 16525 Chloride [Moles/Vol] 98 mmol/L Low 101-111 [facility] Comment on above: Performed By: #### 4 [id number] #### [facility] (DEFAULT) [address] [place] [address] 72917 CO2 [Moles/Vol] 28 mmol/L Normal 21-32 [facility] Comment on above: Performed By: #### 4 [id number] #### [facility] (DEFAULT) [address] [place] [address] 76498 Creatinine [Mass/Vol] 0.86 mg/dL Normal 0.60-1.30 [facility] Comment on above: Performed By: #### 4 [id number] #### [facility] (DEFAULT) [address] [place] [address] 25787 Glucose [Mass/Vol] 96.0 mg/dL Normal 74.0-118.0 [facility] Comment on above: Performed By: #### 4 [id number] #### [facility] (DEFAULT) [address] [place] [address] 86597 Osmolality 274 mOsm/L Invalid Interpretation Code [facility] Comment on above: Performed By: #### 4 [id number] #### [facility] (DEFAULT) [address] [place] [address] 88305 Potassium [Moles/Vol] 4.1 mmol/L Normal 3.6-5.1 [facility] Comment on above: Performed By: #### 4 [id number] #### [facility] (DEFAULT) [address] [place] [address] 37160 Sodium [Moles/Vol] 137.0 mmol/L Normal 136.0-144 . 0 [facility] Comment on above: Performed By: #### 4 [id number] #### [facility] (DEFAULT) [address] [place] [address] 62565 Urea nitrogen [Mass/Vol] 15 mg/dL Normal 8-26 [facility] Comment on above: Performed By: #### 4 [id number] #### [facility] (DEFAULT) [address] [place] [address] 23419 Urea nitrogen/Creatinine [Mass ratio] 17.0 mg/mg High 4.6-16.2 [facility] Comment on above: Performed By: #### 4 [id number] #### [facility] (DEFAULT) [address] [place] [address] UA Huzuy7be 11-04-2020 UA Bacteria Trace [facility] Comment on above: Order Comment: Urina lysis Microscopic order added on by [employer] Rules system. Performed By: #### 4 [id number] #### [facility] (DEFAULT) [address] [place] [address] UA RBC >100 [facility] Comment on above: Order Comment: Urina lysis Microscopic order added on by [employer] system. Performed By: #### 4 [id number] #### [facility] (DEFAULT) [address] [place] [address] UA Squam Epi Rare [facility] Comment on above: Order Comment: Urina lysis Microscopic order added on by [employer] system. Performed By: #### 4 [id number] #### [facility] (DEFAULT) [address] [place] [address] UA WBC 50-60 [facility] Comment on above: Order Comment: Urina lysis Microscopic order added on by [employer] system. Performed By: #### 4 [id number] #### [facility] (DEFAULT) [address] [place] [address] UA w Culture if Ind Standard on 11-04-2020 Breakpoint UA [facility] Comment on above: Performed By: #### 4 [id number] #### [facility] (DEFAULT) [address] [place] [address] Color (U) Yellow [facility] Comment on above: Performed By: #### 4 [id number] #### [facility] (DEFAULT) [address] [place] [address] Culture? Indicated Invalid Interpretation Code [facility] Comment on above: Result Comment: Resu lt created by rule GL_MAGR_ADD_UA_CULT Result created by rule GL_MAGR_ADD_UA_CULT Result created by rule GL_MAGR_ADD_UA_CULT1 Result created by rule GL_MAGR_ADD_UA_CULT Performed By: #### 4 [id number] #### [facility] (DEFAULT) [address] [place] [address] 60205 Glucose (U) [Mass/Vol] Negative Normal [facility] Comment on above: Performed By: #### 4 [id number] #### [facility] (DEFAULT) [address] [place] [address] 09820 Ketones Ql (U) Negative Normal [facility] Comment on above: Performed By: #### 4 [id number] #### [facility] (DEFAULT) [address] [place] [phone] Micro? Indicated Normal [facility] Comment on above: Result Comment: Resu lt created by rule [id number]_ADD_UA_MICRO Performed By: #### [id number] #### [facility] (DEFAULT) [address] [place] [phone] UA Bilirubin Negative Normal [facility] Comment on above: Performed By: #### [id number] #### [facility] (DEFAULT) [address] [place] [id number] UA Blood LARGE Abnormal NEGATIVE [facility] Comment on above: Performed By: #### [id number] #### [facility] (DEFAULT) [address] [place] [phone] UA Clarity CLOUDY Abnormal CLEAR [facility] Comment on above: Performed By: #### [id number] #### [facility] (DEFAULT) [address] [place] [id number] UA Leuk Est LARGE Abnormal NEGATIVE [facility] Comment on above: Performed By: #### [id number] #### [facility] (DEFAULT) [address] [place] [id number] UA Nitrite Negative Normal [facility] Comment on above: Performed By: #### 4 [id number] #### [facility] (DEFAULT) [address] [place] [address] [id number] UA pH 7.0 Normal 5-8 [facility] Comment on above: Performed By: #### [id number] #### [facility] (DEFAULT) [address] [place] [address] UA Protein Negative Normal NEGATIVE [facility] Comment on above: Performed By: #### [id number] #### [facility] (DEFAULT) [address] [place] [address] UA Spec Grav 1.015 Normal 1.001-1.03 5 [facility] Comment on above: Performed By: #### 4 [id number] #### [facility] (DEFAULT) [address] [place] [address] UA Urobilinogen 0.2 mg/dL Normal 0.2-1.0 [facility] Comment on above: Performed By: #### 4 [id number] #### [facility] (DEFAULT) [address] [place] [address] Urine Source Clean Catch Normal [facility] Comment on above: Performed By: #### 4 [id number] #### [facility] (DEFAULT) [address] [place] [address] Vital Signs Date Time Vital Sign Value Performing Clinician Facility 03-06-2024 11:45-0500 Body temperature 97.59 [degF] Frandy Patel MD [facility] 03-06-2024 11:45-0500 Diastolic blood pressure 77 mm[Hg] Frandy Patel MD [facility] 03-06-2024 11:45-0500 Heart rate 95 /min Frandy Patel MD [facility] 03-06-2024 11:45-0500 Respiratory rate 24 /min Frandy Patel MD [facility] 03-06-2024 11:45-0500 SaO2% (BldA) [Mass fraction] 97 % Frandy Patel MD [facility] 03-06-2024 11:45-0500 Systolic blood pressure 127 mm[Hg] Frandy Patel MD [facility] 03-06-2024 06:00-0500 Body mass index (BMI) [Ratio] 41.97 kg/m2 [facility] 03-06-2024 06:00-0500 Body weight 99.1 kg [facility] 03-05-2024 18:45-0500 Body height 153.7 cm Frandy [facility]guyễn [facility] 03-03-2024 15:19-0500 Body temperature 37.0 Frandy Patel MD [facility] 12-09-2023 13:07-0400 Body height 154.94 cm DO Hilario Mast Work Phone: [facility] 12-09-2023 13:07-0400 Body mass index (BMI) [Ratio] 39.9 kg/m2 DO Hilario Mast Work Phone: [facility] 12-09-2023 13:07-0400 Body temperature 96 [degF] DO Hilario Mast Work Phone: [facility] 12-09-2023 13:07-0400 Body weight 95.84 kg DO Hilario Mast Work Phone: [facility] 12-09-2023 13:07-0400 Diastolic blood pressure 64 mm[Hg] DO Hilario Mast Work Phone: [facility] 12-09-2023 13:07-0400 Heart rate 95 /min DO Hilario Mast Work Phone: [facility] 12-09-2023 13:07-0400 SaO2% (BldA) [Mass fraction] 96 % DO Hilario Mast Work Phone: [facility] 12-09-2023 13:07-0400 Systolic blood pressure 104 mm[Hg] DO Hilario Mast Work Phone: [facility] 12-02-2023 08:54-0400 Body height 154.94 cm DO Hilario Mast Work Phone: [facility] 12-02-2023 08:54-0400 Body mass index (BMI) [Ratio] 39.7 kg/m2 DO Hilario Mast Work Phone: [facility] 12-02-2023 08:54-0400 Body temperature 96.4 [degF] DO Hilario Mast Work Phone: [facility] 12-02-2023 08:54-0400 Body weight 95.48 kg DO Hilario Mast Work Phone: [facility] 12-02-2023 08:54-0400 Diastolic blood pressure 62 mm[Hg] DO Hilario Mast Work Phone: [facility] 12-02-2023 08:54-0400 Heart rate 95 /min DO Hilario Mast Work Phone: [facility] 12-02-2023 08:54-0400 Respiratory rate 16 /min DO Hilario Mast Work Phone: [facility] 12-02-2023 08:54-0400 SaO2% (BldA) [Mass fraction] 95 % DO Hilario Mast Work Phone: [facility] 12-02-2023 08:54-0400 Systolic blood pressure 94 mm[Hg] DO Hilario Mast Work Phone: [facility] 11-08-2023 09:06-0400 Body height 154.94 cm [facility] 11-08-2023 09:06-0400 Body mass index (BMI) [Ratio] 39.6 kg/m2 [facility] 11-08-2023 09:06-0400 Body temperature 96.5 [degF] [facility] 11-08-2023 09:06-0400 Body weight 95.25 kg [facility] 11-08-2023 09:06-0400 Diastolic blood pressure 72 mm[Hg] [facility] 11-08-2023 09:06-0400 Heart rate 78 /min [facility] 11-08-2023 09:06-0400 SaO2% (BldA) [Mass fraction] 97 % [facility] 11-08-2023 09:06-0400 Systolic blood pressure 114 mm[Hg] [facility] 09-09-2023 14:00-0400 Body height 154.94 cm DO Hilario Mast Work Phone: [facility] 09-09-2023 14:00-0400 Body mass index (BMI) [Ratio] 39.6 kg/m2 DO Hilario Mast Work Phone: [facility] 09-09-2023 14:00-0400 Body temperature 96.1 [degF] DO Hilario Mast Work Phone: [facility] 09-09-2023 14:00-0400 Body weight 95.25 kg DO Hilario Mast Work Phone: [facility] 09-09-2023 14:00-0400 Diastolic blood pressure 74 mm[Hg] DO Hilario Mast Work Phone: [facility] 09-09-2023 14:00-0400 Heart rate 98 /min DO Hilario Mast Work Phone: [facility] 09-09-2023 14:00-0400 SaO2% (BldA) [Mass fraction] 95 % DO Ihlario Mast Work Phone: [facility] 09-09-2023 14:00-0400 Systolic blood pressure 110 mm[Hg] DO Hilario Mast Work Phone: [facility] 09-02-2023 15:50-0400 Body height 154.94 cm DO Hilario Mast Work Phone: [facility] 09-02-2023 15:50-0400 Body mass index (BMI) [Ratio] 39.5 kg/m2 DO Hilario Mast Work Phone: [facility] 09-02-2023 15:50-0400 Body temperature 97.7 [degF] DO Hilario Mast Work Phone: [facility] 09-02-2023 15:50-0400 Body weight 94.85 kg DO Hilario Mast Work Phone: [facility] 09-02-2023 15:50-0400 Diastolic blood pressure 68 mm[Hg] DO Hilario Mast Work Phone: [facility] 09-02-2023 15:50-0400 Heart rate 89 /min DO Hilario Mast Work Phone: [facility] 09-02-2023 15:50-0400 SaO2% (BldA) [Mass fraction] 97 % DO Hilairo Mast Work Phone: [facility] 09-02-2023 15:50-0400 Systolic blood pressure 128 mm[Hg] DO Hilario Mast Work Phone: [facility] 08-08-2023 09:18-0400 Body height 154.9 cm Nani Calloway MD Work Phone: [facility] 08-08-2023 09:18-0400 Body mass index (BMI) [Ratio] 39.87 kg/m2 Nani Calloway MD Work Phone: [facility] 08-08-2023 09:18-0400 Body weight 95.71 kg Nani Calloway MD Work Phone: [facility] 08-08-2023 09:18-0400 Diastolic blood pressure 58 mm[Hg] Nani Calloway MD Work Phone: [facility] 08-08-2023 09:18-0400 Heart rate 72 /min Nani Calloway MD Work Phone: [facility] 08-08-2023 09:18-0400 Systolic blood pressure 102 mm[Hg] Nani Calloway MD Work Phone: [facility] 05-13-2023 12:58-0400 Body height 155 cm Ruth Ann Gutierres PA-C Work Phone: [facility] 05-13-2023 12:58-0400 Body temperature 97.7 [degF] Ruth Ann Gutierres PA-C Work Phone: [facility] 05-13-2023 12:58-0400 Body weight 98.3 kg Ruth Annbrandy Floyder PA-C Work Phone: [facility] 05-13-2023 12:58-0400 Diastolic blood pressure 62 mm[Hg] Ruth Ann Marlin PA-C Work Phone: [facility] 05-13-2023 12:58-0400 Heart rate 109 /min Ruth Ann Marlin PA-C Work Phone: [facility] 05-13-2023 12:58-0400 Respiratory rate 18 /min Ruth Ann Marlin PA-C Work Phone: [facility] 05-13-2023 12:58-0400 SaO2% (BldA) [Mass fraction] 93 % Ruth Annbrandy Floyder PA-C Work Phone: [facility] 05-13-2023 12:58-0400 Systolic blood pressure 141 mm[Hg] Ruth Ann Marlin PA-C Work Phone: [facility] 05-06-2023 14:11-0500 Body height 154.94 cm MD Nicole Vargas Work Phone: [facility] 05-06-2023 14:11-0500 Body mass index (BMI) [Ratio] 41.2 kg/m2 MD Nicole Vargas Work Phone: [facility] 05-06-2023 14:11-0500 Body temperature 97.5 [degF] MD Nicole Vargas Work Phone: [facility] 05-06-2023 14:11-0500 Body weight 98.93 kg MD Nicole Vargas Work Phone: [facility] 05-06-2023 14:11-0500 Diastolic blood pressure 68 mm[Hg] MD Nicole Vargas Work Phone: [facility] 05-06-2023 14:11-0500 Heart rate 99 /min MD Nicole Vargas Work Phone: [facility] 05-06-2023 14:11-0500 SaO2% (BldA) [Mass fraction] 97 % MD Nicole Vargas Work Phone: [facility] 05-06-2023 14:11-0500 Systolic blood pressure 132 mm[Hg] MD Nicole Vargas Work Phone: [facility] 04-02-2023 09:16-0500 Body height 152.4 cm Nani [...] Body height 154.94 cm Hilario Mast Other [facility] 02-19-2023 14:45-0500 Body mass index (BMI) [Ratio] 41.36 kg/m2 Hilario Mast Other [employer] Other 02-19-2023 14:45-0500 Body temperature 97.3 [degF] Hilario Mast Other [facility] Other 02-19-2023 14:45-0500 Body weight 99.29 kg Hilario Mast Other [facility] 02-19-2023 14:45-0500 Diastolic blood pressure 72 mm[Hg] Hilario Mast Other [facility] 02-19-2023 14:45-0500 Respiratory rate 18 /min Hilario Mast Other [facility] [employer] Other 02-19-2023 14:45-0500 SaO2% (BldA) [Mass fraction] 95 % Hilario Mast Other [facility] [employer] Other 02-19-2023 14:45-0500 Systolic blood pressure 110 mm[Hg] Hilario Mast Other [facility] 01-22-2023 11:00-0500 Body height 154.9 cm Jacqueline Campos PROJECT MANAGER-MOTION STUDY ANALYST Work Phone: [facility] 01-22-2023 11:00-0500 Body mass index (BMI) [Ratio] 42.89 kg/m2 Jacqueline Campos PROJECT MANAGER-MOTION STUDY ANALYST Work Phone: [facility] 01-22-2023 11:00-0500 Body weight 102.97 kg Jacqueline Campos PROJECT MANAGER-MOTION STUDY ANALYST Work Phone: [facility] 01-22-2023 11:00-0500 Diastolic blood pressure 80 mm[Hg] Jacqueline Campos PROJECT MANAGER-MOTION STUDY ANALYST Work Phone: [facility] 01-22-2023 11:00-0500 Heart rate 76 /min Jacqueline Campos PROJECT MANAGER-MOTION STUDY ANALYST Work Phone: [facility] 01-22-2023 11:00-0500 Systolic blood pressure 120 mm[Hg] Jacqueline Campos PROJECT MANAGER-MOTION STUDY ANALYST Work Phone: [facility] 01-18-2023 12:02-0500 Body temperature 98.3 [degF] MD Nicole Vargas Work Phone: [facility] 01-18-2023 12:02-0500 Heart rate 75 /min MD Nicole Vargas Work Phone: [facility] 01-18-2023 12:02-0500 Respiratory rate 18 /min MD Nicole Vargas Work Phone: [facility] 01-18-2023 12:02-0500 SaO2% (BldA) [Mass fraction] 95 % MD Nicole Vargas Work Phone: [facility] 01-18-2023 07:26-0500 Diastolic blood pressure 71 mm[Hg] MD Nicole Vargas Work Phone: [facility] 01-18-2023 07:26-0500 Systolic blood pressure 141 mm[Hg] MD Nicole Vargas Work Phone: [facility] 01-18-2023 05:31-0500 Body weight 104.2 kg MD Nicole Vargas Work Phone: [facility] 01-17-2023 12:43-0500 Body height 154.94 cm MD Nicole Vargas Work Phone: [facility] 12-25-2022 10:12-0400 Body height 154.9 cm Nani [...] Body height 154.94 cm Jani Willy Other [employer] Other 12-10-2022 11:00-0400 Body mass index (BMI) [Ratio] 42.06 kg/m2 Jani Willy Other [employer] Other 12-10-2022 11:00-0400 Body temperature 96.8 [degF] Jani Willy Other [employer] Other 12-10-2022 11:00-0400 Body weight 100.97 kg Jani Willy Other [employer] Other 12-10-2022 11:00-0400 Diastolic blood pressure 85 mm[Hg] Jani Willy Other [employer] Other 12-10-2022 11:00-0400 Respiratory rate 18 /min Jani Willy Other [employer] Other 12-10-2022 11:00-0400 SaO2% (BldA) [Mass fraction] 95 % Jani Willy Other [employer] Other 12-10-2022 11:00-0400 Systolic blood pressure 130 mm[Hg] Jani Willy Other [employer] Other 10-31-2022 14:21-0400 Body height 154.94 cm MD Nicole Vargas Work Phone: [facility] 10-31-2022 14:21-0400 Body weight 100.24 kg MD Nicole Vargas Work Phone: [facility] 10-31-2022 14:00-0400 Diastolic blood pressure 92 mm[Hg] MD Nicole Vargas Work Phone: [facility] 10-31-2022 14:00-0400 Heart rate 80 /min MD Nicole Vargas Work Phone: [facility] 10-31-2022 14:00-0400 Systolic blood pressure 176 mm[Hg] MD Nicole Vargas Work Phone: [facility] 05-31-2022 10:40-0400 Body height 154.94 cm China Noland Other [employer] Other 05-31-2022 10:40-0400 Body mass index (BMI) [Ratio] 40.81 kg/m2 China Noland Other [employer] Other 05-31-2022 10:40-0400 Body temperature 97.3 [degF] China Noland Other [employer] Other 05-31-2022 10:40-0400 Body weight 97.98 kg China Noland Other [employer] Other 05-31-2022 10:40-0400 Respiratory rate 18 /min China Noland Other [employer] Other 05-31-2022 10:40-0400 SaO2% (BldA) [Mass fraction] 94 % China Noland Other [employer] Other 05-15-2022 14:48-0400 Body height 155 cm Ruth Ann Floyder PA-C Work Phone: [facility] 05-15-2022 14:48-0400 Body temperature 97.5 [degF] Ruth Ann Floyder PA-C Work Phone: [facility] 05-15-2022 14:48-0400 Body weight 100.97 kg Ruth Ann Marlin PA-C Work Phone: [facility] 05-15-2022 14:48-0400 Diastolic blood pressure 97 mm[Hg] Ruth Ann Marlin PA-C Work Phone: [facility] 05-15-2022 14:48-0400 Heart rate 87 /min Ruth Ann Marlin PA-C Work Phone: [facility] 05-15-2022 14:48-0400 Respiratory rate 18 /min Ruth Ann Marlin PA-C Work Phone: [facility] 05-15-2022 14:48-0400 SaO2% (BldA) [Mass fraction] 95 % Ruth Ann Marlin PA-C Work Phone: [facility] 05-15-2022 14:48-0400 Systolic blood pressure 158 mm[Hg] Ruth Ann Marlin PA-C Work Phone: [facility] 03-02-2022 18:15-0500 Body height 154.94 cm China Noland Other [employer] Other 03-02-2022 18:15-0500 Body mass index (BMI) [Ratio] 40.96 kg/m2 China Noland Other [employer] Other 03-02-2022 18:15-0500 Body temperature 97.8 [degF] China Noland Other [employer] Other 03-02-2022 18:15-0500 Body weight 98.34 kg China Noland Other [employer] Other 03-02-2022 18:15-0500 Respiratory rate 18 /min China Noland Other [employer] Other 03-02-2022 18:15-0500 SaO2% (BldA) [Mass fraction] 92 % China Noland Other [employer] Other 12-06-2021 12:00-0400 Body height 154.94 cm Jani Willy Other [employer] Other 12-06-2021 12:00-0400 Body mass index (BMI) [Ratio] 42.13 kg/m2 Jani Willy Other [employer] Other 12-06-2021 12:00-0400 Body temperature 97.1 [degF] Jani Willy Other [employer] Other 12-06-2021 12:00-0400 Body weight 101.15 kg Jani Willy Other [employer] Other 12-06-2021 12:00-0400 Diastolic blood pressure 82 mm[Hg] Jani Willy Other [employer] Other 12-06-2021 12:00-0400 Respiratory rate 20 /min Jani Willy Other [employer] Other 12-06-2021 12:00-0400 SaO2% (BldA) [Mass fraction] 92 % Jani Willy Other [employer] Other 12-06-2021 12:00-0400 Systolic blood pressure 125 mm[Hg] Jani Willy Other [employer] Other Encounters Encounter Date Encounter Type Care Provider Facility Start: 03-03-2024 End: 03-06-2024 Evaluation and management of inpatient ALFREDO STAPLES [facility] Comment on above: 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 Family Medicine [place] Work Phone: Start: 12-02-2023 End: 12-02-2023 ambulatory DO Hilario Mast Work Phone: [facility] Work Phone: Start: 12-02-2023 End: 12-02-2023 Patient encounter procedure DO Hilario Mast Work Phone: [facility] Nephrology [place] Work Phone: Start: 11-26-2023 End: 11-26-2023 ambulatory BERNADINE DIAZ Not Available Start: 11-18-2023 End: 11-18-2023 ambulatory PARUL PERRY Not Available Start: 11-08-2023 End: 11-08-2023 ambulatory DO Hilario Mast Work Phone: [facility] Work Phone: Start: 11-08-2023 End: 11-08-2023 Patient encounter procedure [facility] [place] Work Phone: Start: 09-09-2023 End: 09-09-2023 ambulatory DO Hilario Mast Work Phone: [facility] Work Phone: Start: 09-09-2023 End: 09-09-2023 Patient encounter procedure DO Hilario Mast Work Phone: [facility] [place] Work Phone: Start: 09-02-2023 End: 09-02-2023 Patient encounter procedure DO Hilario Mast Work Phone: [facility] [place] Work Phone: Start: 08-08-2023 End: 08-08-2023 Office outpatient visit 25 minutes Nani Calloway MD Work Phone: [facility] Comment on above: Coronary artery dise ase involving [place] coronary artery of [place] heart without angina pectoris (Primary Dx); S/P PTCA (percutaneous transluminal coronary angioplasty); Mixed hyperlipidemia; Essential hypertension, benign; BMI 39.0-39.9,adult; Former smoker; Class 2 obesity Start: 08-08-2023 End: 08-08-[address] [facility] Ambulatory Start: 06-24-2023 End: 06-24-2023 Patient encounter procedure MD Nicole Vargas Work Phone: [facility] Work Phone: Start: 06-24-2023 End: 06-24-2023 ambulatory MD Nicole Vargas Work Phone: [facility] Work Phone: Start: 05-13-2023 End: 05-13-2023 [...] encounter procedure MD Nicole Vargas Work Phone: [facility] [place] Work Phone: Start: 04-16-2023 End: 04-16-2023 Patient encounter procedure MD Nicole Vargas Work Phone: [facility]Lab [place] Work Phone: Start: 04-16-2023 End: 04-16-2023 ambulatory MD Nicole Vargas Work Phone: [facility] Work Phone: Start: 04-02-2023 End: 04-02-2023 Office outpatient visit 25 minutes Nani Calloway MD Work Phone: [facility] Comment on above: Stented coronary art raul (Primary Dx); Coronary artery disease involving [place] coronary artery of [place] heart without angina pectoris; Essential hypertension, benign; Mixed hyperlipidemia; Abnormal stress test; Morbid obesity ([facility]) Start: 04-02-2023 End: 04-02-2023 ambulatory [facility] Ambulatory Start: 03-05-2023 End: 03-05-2023 ambulatory BERNADINE DIAZ Not Available Start: 02-19-2023 End: 02-19-2023 ambulatory Hilario Mast Other [employer] Other Start: 02-19-2023 Office outpatient vi sit [address] [facility] [place] Start: 02-19-2023 [address]ilario Mast [facility] [place] Start: 02-19-2023 End: 02-19-2023 Patient encounter procedure MD Nicole Vargas Work Phone: [facility] [place] Work Phone: Start: 02-05-2023 End: 02-05-2023 Patient encounter procedure MD Nicole Vargas Work Phone: [facility]-Ultrasound Main [place] Work Phone: Start: 01-22-2023 End: 01-22-2023 ambulatory Ordering Provider Other [employer] Other Start: 01-22-2023 Telephone encounter Ordering Provide [facility] [place] Start: 01-22-2023 End: 01-22-2023 Office outpatient visit 25 minutes Jacqueline Campos PROJECT MANAGER-MOTION STUDY ANALYST Work Phone: [facility] Comment on above: Coronary artery dise ase involving [place] coronary artery of [place] heart without angina pectoris (Primary Dx); S/P angioplasty with stent; Angina pectoris (CMS/HCC); Essential hypertension, benign; Mixed hyperlipidemia; BMI 40.0-44.9, adult (CMS/HCC) Start: 01-17-2023 End: 01-18-2023 Admission to same day surgery center MD Nicole Vargas Work Phone: [facility]-[employer] Work Phone: Start: 01-17-2023 End: 01-18-2023 ambulatory MD Nicole Vargas Work Phone: [facility] Work Phone: Start: 01-15-2023 End: 01-15-2023 Patient encounter procedure MD Nicole Vargas Work Phone: [facility]-Pre-Surgical Testing Work Phone: Start: 12-25-2022 End: 12-25-2022 Office outpatient new 60 minutes Nani Calloway MD Work Phone: [facility] Comment on above: Abnormal stress test ; Angina pectoris (CMS/HCC); Abnormal EKG; Hyperlipidemia, unspecified hyperlipidemia type; Essential hypertension, benign Start: 12-10-2022 End: 12-10-2022 ambulatory Jani Aguilera Other [employer] Other Start: 12-10-2022 Office outpatient vi sit 15 minutes Jani Aguilera [facility] Start: 10-31-2022 End: 10-31-2022 ambulatory MD Nicole Vargas Work Phone: [facility] Work Phone: Start: 10-31-2022 End: 10-31-2022 Patient encounter procedure MD Nicole Vargas Work Phone: [facility]-Electrodiagnostics Work Phone: Start: 10-31-2022 ambulatory Facility:[id number] Start: 06-10-2022 End: 06-11-[address] ARY DORADO Facility:[facility] Start: 06-06-2022 End: 06-07-2022 ambulatory SUZE MARROQUIN Facility:[facility] Start: 05-31-2022 End: 05-31-2022 ambulatory China Noland Other [employer] Other Start: 05-31-2022 Office outpatient vi sit [...] 03-02-2022 End: 03-02-2022 ambulatory China Noland Other [employer] Other Start: 03-02-2022 Office outpatient vi sit 15 minutes China Noland [facility] Start: 01-23-2022 Refill Ruth Ann Gutierres PA-C Work Phone: Hematology/Oncology Comment on above: Refill Request Start: 12-06-2021 End: 12-06-2021 ambulatory Jani Willy Other [employer] Other Start: 12-06-2021 Office outpatient vi sit [...] 03-03-2024 Ct head/brain w/o co ntrast material Hanny [...] [Enzymatic activity/volume] in Serum or Plasma CARDOZA [facility] Start: 04-02-2023 Aspartate aminotrans ferase [Enzymatic activity/volume] in Serum or Plasma CARDOZA [facility] Start: 04-02-2023 Basic metabolic 2000 panel - Serum or Plasma CARDOZA [facility] Start: 04-02-2023 Lipid panel CARDOZA [facility] Start: 04-02-2023 FOLLOW UP IN CARDIOLOGY CARDOZA [...] Author Start: 04-16-2028 Lipid panel Lipid Screening [facility] Start: 05-12-2026 Diabetes Screening Diabetes Screening [facility] Start: 10-23-2025 DTaP/Tdap/Td vaccine (2 - Tdap) DTaP/Tdap/Td vaccine (2 - Tdap) [facility] Start: 10-23-2025 DTaP/Tdap/Td Vaccines (2 - Tdap) DTaP/Tdap/Td Vaccines (2 - Tdap) [facility] Start: 10-23-2025 Urine microalbumin profile [facility] Start: 05-15-2025 DIABETES SCREEN DIABETES SCREEN [facility] Start: 05-12-2024 End: 08-11-2024 CBC W Auto Differential panel - Blood CBC + DIFF Lab Routine Obesity, Class III, BMI 40-49.9 (morbid obesity) (HCC) Malignant neoplasm of lower-inner quadrant of right breast of female, estrogen receptor positive (HCC) Breast screening Encounter for screening mammogram for malignant neoplasm of breast Osteopenia, unspecified location Expected: 05/12/2024 (Approximate), Expires: 08/11/2024 [facility] Work Phone: Comment on above: [...] unspecified location Expected: 05/12/2024 (Approximate), Expires: 08/11/2024 [facility] Work Phone: Comment on above: [...] Osteopenia, unspecified location Expected: 04/14/2024, Expires: 06/11/2024 [facility] Work Phone: Comment on above: Expected: 04/14/2024, Expires: Start: 03-13-2024 End: 03-13-2024 Patient encounter procedure 03/13/2024 1:30 PM EST Office Visit [facility] [address] [place] [address] Nani Calloway MD [address] [place] [address] [facility] Start: 03-03-2024 Annual Wellness Visit (Medicare) Annual Wellness Visit (Medicare) [facility] Start: 02-07-2024 End: 08-07-2024 Alanine aminotransferase [Enzymatic activity/volume] in Serum or Plasma by With P-5'-P Alanine Aminotransferase Lab Routine Mixed hyperlipidemia Expected: 02/07/2024 (Approximate), Expires: 08/07/2024 [facility] Service Area Work Phone: Comment on above: Expected: 02/07/2024 (Approximate), Expi res: 08/07/2024 Start: 02-07-2024 End: 08-07-2024 Aspartate aminotransferase [Enzymatic activity/volume] in Serum or Plasma by With P-5'-P Aspartate Aminotransferase Lab Routine Mixed hyperlipidemia Expected: 02/07/2024 (Approximate), Expires: 08/07/2024 [facility] Work Phone: Comment on above: Expected: 02/07/2024 (Approximate), Expi res: 08/07/2024 Start: 02-07-2024 End: 08-07-2024 Basic metabolic 2000 panel - Serum or Plasma Basic Metabolic Panel Lab Routine Essential hypertension, benign Expected: 02/07/2024 (Approximate), Expires: 08/07/2024 [facility] Work Phone: Comment on above: Expected: 02/07/2024 (Approximate), Expi res: 08/07/2024 Start: 02-07-2024 End: 08-07-2024 CBC panel - Blood by Automated count CBC Lab Routine Coronary artery disease involving [place] coronary artery of [place] heart without angina pectoris S/P PTCA (percutaneous transluminal coronary angioplasty) Expected: 02/07/2024 (Approximate), Expires: 08/07/2024 [facility] Work Phone: Comment on above: Expected: 02/07/2024 (Approximate), Expi res: 08/07/2024 Start: 02-07-2024 End: 08-07-2024 Lipid 1996 panel - Serum or Plasma Lipid Panel Lab Routine Mixed hyperlipidemia Expected: 02/07/2024 (Approximate), Expires: 08/07/2024 [facility] Work Phone: Comment on above: Expected: 02/07/2024 (Approximate), Expi res: 08/07/2024 Start: 12-02-2023 Bacteria identified in Urine by Culture [facility] Start: 11-03-2023 COVID-19 Vaccine ( season) COVID-19 Vaccine () [facility] Start: 08-08-2023 End: 08-08-2023 Patient encounter procedure 08/08/2023 9:10 AM EDT Office Visit [facility] [address] [place] [id number] Nani Calloway MD [address] [place] [address] [facility] Start: 04-16-2023 End: 04-02-2024 Basic metabolic 2000 panel - Serum or Plasma Basic Metabolic Panel Lab Routine Coronary artery disease involving [place] coronary artery of [place] heart without angina pectoris Essential hypertension, benign Expected: 04/16/2023 (Approximate), Expires: 04/02/2024 [facility] Work Phone: Comment on above: Expected: 04/16/2023 (Approximate), Expi res: 04/02/2024 Start: 04-02-2023 End: 04-02-2024 Alanine aminotransferase [Enzymatic activity/volume] in Serum or Plasma by With P-5'-P Alanine Aminotransferase Lab Routine Coronary artery disease involving [place] coronary artery of [place] heart without angina pectoris Mixed hyperlipidemia Expected: 04/02/2023 (Approximate), Expires: 04/02/2024 [facility] Work Phone: Comment on above: Expected: 04/02/2023 (Approximate), Expi res: 04/02/2024 Start: 04-02-2023 End: 04-02-2024 Aspartate aminotransferase [Enzymatic activity/volume] in Serum or Plasma by With P-5'-P Aspartate Aminotransferase Lab Routine Coronary artery disease involving potter [place] coronary artery of [place]ter [place] heart without angina pectoris Mixed hyperlipidemia Expected: 04/02/2023 (Approximate), Expires: 04/02/2024 [facility] Work Phone: Comment on above: Expected: 04/02/2023 (Approximate), Expi res: 04/02/2024 Start: 04-02-2023 End: 04-02-2024 Lipid 1996 panel - Serum or Plasma Lipid Panel Lab Routine Coronary artery disease involving potter [place] coronary artery of [place] heart without angina pectoris Mixed hyperlipidemia Expected: 04/02/2023 (Approximate), Expires: 04/02/2024 [facility] Service Area Work Phone: Comment on above: Expected: 04/02/2023 (Approximate), Expi res: 04/02/2024 Start: 04-02-2023 End: 04-02-2023 Patient encounter procedure 04/02/2023 9:20 AM EST Office Visit [facility] [address] [facility] [address] [place] [id number] Nani Calloway MD [facility] [facility], [address] [address] [facility] Start: 03-28-2023 Screening for osteoporosis Bone Density Scan [facility] Start: 03-04-2023 Advance Directive Discussion Advance Directive Discussion [facility] Start: 03-04-2023 Depression Assessment Depression Assessment [facility] Start: 01-18-2023 [facility] Start: 01-18-2023 Hospital admission [facility] Start: 01-17-2023 [facility] Start: 11-02-2022 COVID-19 Vaccine () COVID-19 Vaccine () [facility] Start: 11-02-2022 COVID-19 Vaccine () COVID-19 Vaccine () [facility] Start: 11-02-2022 Influenza vaccination Influenza Vaccine (#1) [facility] Start: 10-31-2022 Radionuclide myocardial perfusion stress study NM ag perf SPECT rest & str [facility] Start: 10-31-2022 SPECT Heart perfusion at rest and W stress and W radionuclide IV [facility] Start: 09-12-2022 Respiratory Syncytial Virus (RSV) or age 60 yrs+ (1 - 1-dose 75+ series) Respiratory Syncytial Virus (RSV) or age 60 yrs+ (1 - 1-dose 75+ series) [facility] Start: 03-04-2022 ADVANCE DIRECTIVE DISCUSSION ADVANCE DIRECTIVE DISCUSSION [facility] Start: 03-04-2022 DEPRESSION ASSESSMENT DEPRESSION ASSESSMENT [facility] Start: 02-26-2022 COVID-19 Vaccine (3 - Booster for Nicky series) COVID-19 Vaccine (3 - Booster for Nicky series) [facility] Start: 11-02-2021 Influenza vaccination INFLUENZA (#1) [facility] Start: 05-26-2021 COVID-19 VACCINE (3 - Booster for Nicky series) COVID-19 VACCINE (3 - Booster for Nicky series) [facility] Start: 03-28-2021 DIABETES SCREEN DIABETES SCREEN [facility] Start: 03-04-2021 ADVANCE DIRECTIVE DISCUSSION ADVANCE DIRECTIVE DISCUSSION [facility] Start: 01-01-2022 DEPRESSION ASSESSMENT DEPRESSION ASSESSMENT [facility] Start: 04-11-2019 Colonoscopy COLONOSCOPY [facility] Start: 04-11-2019 COLORECTAL CANCER SCREENING COLORECTAL CANCER SCREENING [facility] Start: 03-12-2018 PNEUMOCOCCAL: 65+ (2 - PCV) PNEUMOCOCCAL: 65+ (2 - PCV) [facility] Start: 09-12-2012 BONE DENSITY BONE DENSITY [facility] Start: 2007 RSV patients and/or patients aged 60+ years (1 - 1-dose 60+ series) RSV patients and/or patients aged 60+ years (1 - 1-dose 60+ series) [facility] Start: 2007 RSV Vaccine (1 - 1-dose 60+ series) RSV Vaccine (1 - 1-dose 60+ series) [facility] Start: 09-12-1997 Shingles vaccine (1 of 2) Shingles vaccine (1 of 2) [facility] Start: 09-12-1997 SHINGRIX VACCINE (1 of 2) SHINGRIX VACCINE (1 of 2) [facility] Start: 09-12-1997 Zoster Vaccines (1 of 2) Zoster Vaccines (1 of 2) [facility] Start: 09-12-1992 COLOGUARD (FIT-DNA) COLOGUARD (FIT-DNA) [facility] Start: 09-12-1992 Colonoscopy COLONOSCOPY [facility] Start: 09-12-1992 COLORECTAL CANCER SCREENING COLORECTAL CANCER SCREENING [facility] Start: 09-12-[address] COLONOGRAPHY [facility] Start: 09-12-1992 FECAL OCCULT BLOOD FECAL OCCULT BLOOD [facility] Start: 09-12-1992 LIPID SCREEN LIPID SCREEN [facility] Start: 09-12-1992 Screening for malignant neoplasm of colon [facility] Start: 09-12-1992 SIGMOIDOSCOPY SIGMOIDOSCOPY [facility] Start: 1987 Mammography MAMMOGRAM [facility] Start: 09-12-1965 Diabetes mellitus screening Diabetes Screening [facility] Start: 09-12-1965 HEPATITIS C SCREENING HEPATITIS C SCREENING [facility] Start: 09-12-1965 Hepatitis C screening [facility] Start: 1959 Depression Screen Depression Screen [facility] Start: 09-12-1957 Lipid panel Lipids [facility] Start: 1945 Creatinine measurement Creatinine Level [facility] [...] TSH Level [facility] End: 03-08-2024 Basic metabolic 2000 panel - Serum or Plasma Basic Metabolic Panel Lab Routine Daily for 5 Days starting 03/04/2024 until 03/08/2024, 3 completed [facility] Comment on above: Daily for 5 Days starting 03/04/2024 unt il 03/08/2024, 3 completed End: 03-08-2024 CBC W Auto Differential panel - Blood CBC with Auto Differential Lab Routine Daily for 5 Days starting 03/04/2024 until 03/08/2024, 3 completed [facility] Work Phone: Comment on above: Daily for 5 Days starting 03/04/2024 unt il 03/08/2024, 3 completed Continuous pulse oximetry Pulse oximetry, continuous Respiratory Care Routine Every 4hr until discontinued starting 03/05/2024 [facility] Comment on above: Every 4hr until discontinued starting Intermittent pulse oximetry [employer] Respiratory Care Routine As Needed until discontinued starting 03/03/2024 [facility] Comment on above: As Needed until discontinued starting End: 06-14-2023 WICHO SCREENING W BETINA WICHO SCREENING W BETINA Radiology Routine Malignant neoplasm of lower-inner quadrant of right breast of female, estrogen receptor positive (HCC) Breast screening Encounter for screening mammogram for malignant neoplasm of breast 1 Occurrences starting 05/15/2022 until 06/14/2023 [facility] Work Phone: Comment on above: 1 Occurrences starting 05/15/2022 until 06/14/2023 Oxygen therapy [[facility] Data Set] Initiate Oxygen Therapy Protocol Respiratory Care Routine As Needed until discontinued starting 03/03/2024 [facility] Comment on above: As Needed until discontinued starting Oxygen therapy [[facility] Data Set] Initiate Oxygen Therapy Protocol Respiratory Care Routine Daily until discontinued starting 03/03/2024 [facility] Comment on above: Daily until discontinued starting 2023 Patient Education Coronary Angio plasty (DC) Coronary Stenting (DC) Angina (DC) Chest Pain (DC) Drug Eluting Stents [facility] Work Phone: Patient referral [facility] Work Phone: Renal function 2000 panel - Serum or Plasma [facility] Spirometry panel Incentive althea metry Respiratory Care Routine As Needed until discontinued starting 03/03/2024 [facility] Comment on above: As Needed until discontinued starting XR Chest 2 Views [facility] Immunizations Immunization Date Immunization Notes Care Provider Fa cility 02-19-2023 influenza, injectabl e, quadrivalent, preservative free Hilario Mast Other [facility] 01-18-2022 Pneumococcal conjuga te vaccine, 20-valent (PREVNAR 20) Nani Calloway MD Work Phone: [facility] Work Phone: 01-01-2022 Flu vaccine, quadrivalent, high-dose, preservative free, age 65y+ (FLUZONE) Nani Calloway MD Work Phone: [facility] Work Phone: 01-01-2022 Moderna COVID-19 vaccine, bivalent, blue cap/riojas label *Check age/dose* Nani Calloway MD Work Phone: [facility] 01-01-2022 influenza virus vacc ine, unspecified formulation Nani Callwoay MD Work Phone: [facility] Work Phone: 03-31-2021 COVID-19 (Moderna), Age 12+ MD Nicole Vargas Work Phone: [facility] 03-31-2021 COVID-19 original vaccine, full dose, monovalent (MODERNA) Ruth Ann Marlin PA-C Work Phone: [facility] 12-15-2020 influenza, high dose seasonal, preservative-free Ruth Ann Marlin PA-C Work Phone: [facility] 05-07-2020 COVID-19 (J&J) MD Nicole Vargas Work Phone: [facility] 05-07-2020 COVID-19 vaccine (NICKY) Ruth Ann Marlin PA-C Work Phone: [facility] 01-10-2020 influenza, high-dose , quadrivalent vaccine (FLUZONE HIGH DOSE QUADRIVALENT) Ruth Ann Marlin PA-C Work Phone: [facility] 03-01-2019 influenza, high dose seasonal, preservative-free Ruth Ann Marlin PA-C Work Phone: [facility] 03-18-2018 influenza nasal, unspecified formulation Ruth Ann Marlin PA-C Work Phone: [facility] 03-18-2018 influenza virus vacc ine, unspecified formulation Ruth Ann Marlin PA-C Work Phone: [facility] 03-17-2018 influenza, high dose seasonal, preservative-free Ruth Ann Marlin PA-C Work Phone: [facility] 03-12-2017 pneumococcal polysaccharide vaccine, 23 valent Ruth Ann Marlin PA-C Work Phone: [facility] 02-13-2017 influenza, high dose seasonal, preservative-free Ruth Ann Marlin PA-C Work Phone: [facility] 11-14-2015 influenza, injectabl e, quadrivalent, preservative free Ruth Ann Marlin PA-C Work Phone: [facility] 10-24-2015 diphtheria, tetanus toxoids and acellular pertussis vaccine Ruth Ann Marlin PA-C Work Phone: [facility] 10-24-2015 influenza, high dose seasonal, preservative-free Ruth Ann Gutierres PA-C Work Phone: [facility] Payers Date Payer Category Payer Self-pay [id number] 2022 Unknown AARP AARP [id number] 2022-Present [address] [place] [address] [id number] 2013 Private Health Insurance [facility] AARP SUPPLEMENT [id number] 2013-Present [phone] [address] [place] [address] Indemnity [id number] 2012 Medicare [id number] 1959 Medicare [id number] [id number] 1959 Unknown [id number] 2.16.840.1.249695.19 1947 Unknown [id number] 2.16.840.1.314810.3.579.2 .593 1947 Unknown [id number] 2.16.840.1.998842.3.579.2 .593 1947 Unknown [id number] 2.16.840.1.215902.3.579.2 .593 1947 Unknown [id number] 2.16.840.1.354074.3.579.2 .593 1947 Unknown [id number] 2.16.840.1.421093.3.579.2 .593 1947 Unknown [id number] 2.16.840.1.981355.3.579.2 .356 1947 Unknown [id number] 2.16.840.1.112494.3.579.2 .1259 1947 Unknown [id number] 2.16.840.1.059089.3.579.2 .9 1947 Unknown [id number] 2.16.840.1.792134.3.579.2 .125 1947 Unknown [id number] 2.16.840.1.496828.3.579.2 .125 1947 Unknown [id number] 2.16.840.1.060634.3.579.2 .175 1947 Unknown [id number] 2.16.840.1.629767.3.579.2 .1244 1947 Unknown [id number] 2.16.840.1.793906.3.579.2 .124 1947 Unknown [id number] 2.16.840.1.425598.3.579.2 .175 Unknown [id number] 2.16.840.1.123603.3.579.2 .531 Unknown [id number] 2.16.840.1.904562.3.579.2 .531 Unknown [id number] 2.16.840.1.365435.3.579.2 .531 Unknown [id number] 2.16.840.1.348375.3.579.2 .531 Unknown [id number] 2.16840.1.748358.3.579.2 .531 Social History Date Type Detail Facility Unknown if ever smoked [facility] Other Start: 12-25-2022 End: 03-03-2024 Sex Assigned At [facility] Start: 06-29-2016 End: 05-06-2023 Tobacco smoking status NHIS Ex-smoker [facility] End: 06-30-1995 History of tobacco use Current smoker [facility] End: 06-30-1995 History of tobacco use Cigarette Smoker [facility] Start: 06-29-2016 End: 03-03-2024 Cigarettes smoked current (pack per day) - Reported 1 [facility] Start: 06-29-2016 End: 08-08-2023 Tobacco use and exposure Smokeless tobacco non-user [facility] Start: 05-16-2021 End: 05-15-2022 Alcohol intake Current non-drinker of alcohol (finding) [facility] Start: 1945 Sex Assigned At Not on file [facility] History of tobacco use Passive smoker [facility] Start: 1945 Sex Assigned At Female [facility] Start: 12-25-2022 End: 08-08-2023 Alcohol intake Lifetime non-drinker (finding) [facility] Work Phone: Start: 12-15-2022 End: 08-08-2023 Exposure to SARS-CoV-2 (event) Not sure [facility] Adult Depression Screening Assessment 0 [facility] consumption unknown [facility] Alleantia How often to you hav e a drink containing alcohol? [facility] Procedure Code Equipment Code Equipment Origin al Text Equipment Identifier Dates CL STENT ZEB FRONTIER 2.75 X 18 FDA Start: 01-17-2023 CL STENT ZEB FRONTIER 3.0 X 18 FDA Start: 01-17-2023 CL STENT ZEB FRONTIER 3.5 X 12 FDA Start: 01-17-2023 Femoral artery closure plug/patch, synthetic polymer ()[id number] FDA Start: 01-17-2023 CL STENT ZEB FRONTIER [...] Facility 01-18-2023 Functional status Patient at Baseline [facility] Work Phone: Mental Status Date Assessment Result Facility 01-18-2023 Cognitive function Cognitive Sta tus Patient at Baseline [facility] Work Phone: Clinical Notes 02-06-2021 to [...] DISPOSITION: Skilled Facility Follow-up: Jas Maguire MD [address] [address] Follow up Follow up as needed Niraj Zhou, [address] [facility], [address] [place] [address] Schedule an appointment as soon as possible for a visit to discuss need for restarting brilinta SIGNED: ANDRÉS Marin CNP 03/06/2024, 10:49 AM Time Spent for discharge: 35 minutes documented in this encounter [facility] 03-06-2024 Hospital Discharg e Bernadette Branch RN - 03/06/2024 10:47 AM EST Continuity of Care Form Patient Name: Katarina Camara : 1945 Admit date: 03/03/2024 Discharge date: 03/06/24 Code Status Order: Full Code Advance Directives: Advance Care Flowsheet Documentation Admitting Physician: Tona Avendaño MD PCP: Hilario Gallo DO Discharging Nurse: Francie Correa RN Discharging Hospital Unit/Room#: 0106/0106-01 Discharging Unit Phone Number: [phone] Emergency Contact: Extended Emergency Contact Information Primary Emergency Contact: Saundra Cunningham Relation: Child Preferred language: Guamanian Production Team Advisor needed? No Secondary Emergency Contact: Fawn Lowery Relation: Grandchild Preferred language: Guamanian Production Team Advisor needed? No Past Surgical History: No past [...] Assisted Dressing Assisted Toileting Assisted Feeding Independent Custom Stock Maker Assisted Med Delivery whole Wound Care Documentation [...] Inpatient Status Date: Readmission Risk Assessment Score: [facility] RISK OF UNPLANNED READMISSION 2.0 12.4 Total Score Discharging to Facility/ Agency Name: Jerry Alexis Address: Phone: Fax: Dialysis Facility (if applicable) Name: Address: Dialysis Schedule: Phone: Fax: Internship Coordinator/Paper Finisher signature: PHYSICIAN SECTION Prognosis: Fair Condition at Discharge: Stable Rehab Potential (if transferring to Rehab): Recommended Labs or Other Treatments After Discharge: Physician Certification: I certify the above information and transfer of Katarina Camara is necessary for the continuing treatment of the diagnosis listed and that she requires Jail Facility for less then 30 days. Update Admission H&P: No change in H&P PHYSICIAN SIGNATURE: documented in this encounter [facility] 03-05-2024 History of Presen t illness Narrative [...] BID to daily Kisha Mcbride PharmD BCPS [facility] 03/05/2024 3:23 PM Neurosurgery ALVARO/Resident Daily Progress [...] eval Reason for Exam: SAH (subarachnoid hemorrhage) ([facility]) FINDINGS: BRAIN/VENTRICLES: There is a trace volume [...] Occupational Therapy Occupational Therapy Initial Evaluation Facility/Department: 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 ICU PROGRESS NOTE PATIENT NAME: Ktaarina Camara DATE: 03/05/2024 HD: # 2 ACUTE [...] Yes (1) No (0) Coronary Heart Disease [place] (1) CABG (0.75) Mild (0.25) No (0) [...] CT 1. Stepdown Unit Physical Therapy Facility/Department: [facility] CAR 1- SICU Physical [...] Level of Assist for Transfers: Independent Active Marking Room Supervisor: Yes Additional Comments: able to go to the [employer] cart; stress incontinence so uses lift chair [...] Exercises: AROM x 4 AM-PAC - Mobility AM-[facility] Basic Mobility - Inpatient How much help [...] 3-5 steps with a railing?: A Lot AM-[facility] Inpatient Mobility Raw Score : 16 AM-[facility] Inpatient T-Scale Score : 40.78 Mobility Inpatient [...] Dispo: transfer to stepdown Tona Avendaño MD [facility] Emergency/Trauma Note PATIENT NAME: Katarina Camara ([birth year]) Shift date: 03.03.2024 Shift day: Saturday Shift # 1 Room # 1002/1002-01 Name: Michael Sterling Age: 78 y.o. Gender: female Language: Guamanian Sikhism: No orthodox on file Principal Problem: SAH (subarachnoid hemorrhage) ([facility]) Trauma/Incident type: Adult Trauma Priority Admit Date [...] to Fall. Pt to be admitted [facility]-03. SPIRITUAL ASSESSMENT: Patient Assessment: Available for assessment [...] care and concern, and Recieve hospitality. INTERVENTION: Inspector Agricultural Commodities Acknowledged current situation, Actively listened, and Coordinated [...] PATIENT?: Chaplains will follow up as needed [facility] [phone] 03/03/24 1643 Encounter Summary Encounter Overview/Reason Crisis Service Provided [...] in conversation documented in this encounter Bon [facility] 08-08-2023 History of Presen t illness Narrative [...] Rfl: Assessment/Plan 1. Coronary artery disease involving potter [place] coronary artery of [place] heart without angina pectoris Follow Up In [...] discussion and plan. documented in this encounter [facility] Work Phone: 08-08-2023 Instructions Tabby Lopez [...] cannot be sent through Care Everywhere.Mediterranean Diet (Guamanian)documented in this encounter [facility] Work Phone: 05-13-2023 Note HNO ID: [id number] Author: RUTH ANN GUTIERRES PA-C Service: ? Author Type: Physician Communications Associate Type: Progress Notes Filed: 05/13/2023 13:48 Note [...] biopsy completed 02/2016 noted invasive ductal carcinoma ER/WV positive, HER2 negative. : Lumpectomy completed 03/21/16 noted grade 2 invasive ductal carcinoma, DCIS grade 2, 14 mm : Margins negative (discussed with the pathologist who assured negative margins but that the anterior margin was within 1.0mm anteriorly). : Robeline lymph node was positive for involvement. 06/25/16 [...] Invasive ductal carcinoma of right breast (HCC) ER/WV+ HER2- PAST SURGICAL HISTORY Procedure Laterality Date [...] mood swings, norm (more content not included)... [facility] 05-13-2023 History of Presen t illness [...] biopsy completed 02/2016 noted invasive ductal carcinoma ER/WV positive, HER2 negative. : Lumpectomy completed 03/21/16 noted grade 2 invasive ductal carcinoma, DCIS grade 2, 14 mm : Margins negative (discussed with the pathologist who assured negative margins but that the anterior margin was within 1.0mm anteriorly). : Robeline lymph node was positive for involvement. 06/25/16 [...] Invasive ductal carcinoma of right breast (HCC) ER/WV+ HER2- PAST SURGICAL HISTORY Procedure Laterality Date [...] ICD10: C50.311, Z17.0 Completed lumpectomy March 2016 [id number]. Reviewed different options for adjuvant chemotherapy and [...] Hilario Gallo DO documented in this encounter [facility] 05-06-[address] Please [address] labs for follow up on 05/13 per last note. Taylor Barnett documented in this encounter [facility] 04-02-2023 History of Presen t illness [...] coronary artery 2. Coronary artery disease involving pot[place] coronary artery of [place] heart without angina pectoris Follow Up In [...] is doing Feb, Coronary artery disease involving [place] coronary artery of [place] heart without angina pectoris (ICD-10 - I25.10) [...] she is doing, continue to avoid NSAIDs [facility] Other 11-22-2023 Evaluation + Plan note* Assessment & Plan Note - CHINYERE Michel - 01/23/2023 12:48 PM ESTAssociated Problem(s): BMI 40.0-44.9, adult ([facility]) Reviewed the merits of healthy lifestyle choices on overall cardiovascular health. 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 * Assessment & Plan Note - CHINYERE Michel - 01/23/2023 12:48 PM EST Associated Problem(s): Coronary artery disease involving [place] coronary artery of [place] heart without angina pectoris Jan 17, 2023 cardiac cath (no ACS admit, outpt symptoms) Mid/distal CX PCI/Zeb 2.75/18mm complicated with o/p CX dissection IVUS guided oCX PCI/Thorndike 3.5/12mm mLAD PCI/Thorndike 3/18mm * Assessment & Plan Note - [...] [facility] Phone: 1(462) 427-688311-22-2023 Evaluation + Plan note* Assessment & Plan Note - CHINYERE Michel - 01/23/2023 12:45 PM ESTAssociated Problem(s): Angina pectoris (CMS/HCC) Resolved with recent coronary intervention [facility] Work Phone: 1(437) 476-274911-22-2023 Evaluation + Plan note* Assessment & Plan Note - CHINYERE Michel - 01/23/2023 12:45 PM ESTAssociated Problem(s): Essential hypertension, benign Optimal in office [facility] Work Phone: 1(950) 658-803011-22-2023 Evaluation + Plan note* Assessment & Plan Note - CHINYERE Michel - 01/23/2023 12:45 PM ESTAssociated Problem(s): Hyperlipidemia High intensity statin [facility] Work Phone: 1(631) 379-547111-21-2023 History of Present illness Narrative* CHINYERE Michel [...] recent coronary intervention Coronary artery disease involving [place] coronary artery of [place] heart without angina pectoris Jan 17, 2023 cardiac cath (no ACS admit, outpt symptoms) Mid/distal CX PCI/Zeb 2.75/18mm complicated with o/p CX dissection IVUS guided oCX PCI/Thorndike 3.5/12mm mLAD PCI/Thorndike 3/18mm BMI 40.0-44.9, adult (CMS/HCC) Reviewed the [...] Brilinta 3. Referral to Cardiac Rehab at [facility] 4. Return for follow-up; in the interim, contact the office if new symptoms arise. Dr. Calloway 6 months Jacqueline Campos MSN, PROJECT MANAGER-MOTION STUDY ANALYST, PMHNP-BC [facility] Please excuse any errors in grammar or translation related to this dictation. Voice recognition software was utilized to prepare this document. [facility] Work Phone: 1(672) 622-193911-21-2023 Instructions* Patient Instructions* CHINYERE Michel - 01/22/2023 [...] Brilinta 3. Referral to Cardiac Rehab at [facility] 4. Return for follow-up; in the interim, contact the office if new symptoms arise. Dr. Calloway 6 months [facility] Work Phone: 1(293) 940-648911-16-2023 Consult note Author Tamiko Zhou [facility] January 17, 2023 5:50pm Note Date/Time January 17, 2023 5:51pm [facility] [address] [place] [address] Cardiology Consult Note Signed Patient: Katarina Camara MR#: [id number] : 1945 Acct:[id number] Age/Sex: 77 / F Adm Date: 3 Loc: 4P Room: [address] [place] [address] Type: [facility] SDC Attending Dr: Nani Calloway MD [...] stress testing from discussion with her primary allied health professional There is no prior history of myocardial [...] HPI Constitutional Constitutional: Reports as per HPI [facility] Medical History (Updated 01/17/23 @ 17:50 by [...] Code(s): I25.10 - Atherosclerotic heart disease of [place] coronary artery without angina pectoris (2) Hyperlipidemia: Code(s): E78.5 - Hyperlipidemia, unspecified (3) Hypertension: Code(s): I10 - Essential (primary) hypertension (4) Angina pectoris: Code(s): I20.9 - Angina pectoris, unspecified Documented By: Tamiko Zhou DO 01/17/231745 Signed By: <Electronically signed by Tamiko Zhou DO> 01/17/231749 [facility] Work Phone: 1(395) 355-832111-16-2023 Procedure [facility]11-16-2023 Procedure [facility]10-24-2023 History of Present illness Narrative* Nani Calloway MD - 12/25/2022 9:50 AM EDT Alvin Camara is a 77 y.o. female Chief Complaint Establish Care Chest pain/abnormal nuclear stress test HPI 77-year-old white female with no previous cardiac history who has history of hypertension, hyperlipidemia with no diabetes but with remote history of tobacco abuse who was admitted to [facility] in October 2022 with an episode of [...] [facility] Work Phone: 1(875) 892-899710-24-2023 Instructions* Patient Instructions* Deborah Lee LPN - [...] this encounterC[facility] Work Phone: 1(496) 328-302410-09-2023 Evaluation note* Encounter Date Diagnosis Assessment Notes [...] has microscopic hematuria likely due to Nephrolithiasis [facility] Other 03-30-2023 Evaluation note* Encounter Date Diagnosis [...] understanding and is agreeable to treatment plan [facility] Other 03-14-2023 NoteHNO ID: [id number] Author: Ruth Ann Gutierres PA-C Service: ? Author Type: Physician Communications Associate Type: Progress Notes Filed: 05/15/2022 4:24 PM [...] biopsy completed 02/2016 noted invasive ductal carcinoma ER/WV positive, HER2 negative. : Lumpectomy completed 03/21/16 noted grade 2 invasive ductal carcinoma, DCIS grade 2, 14 mm : Margins negative (discussed with the pathologist who assured negative margins but that the anterior margin was within 1.0mm anteriorly). : Robeline lymph node was positive for involvement. 06/25/16 [...] Invasive ductal carcinoma of right breast (HCC) ER/WV+ HER2- PAST SURGICAL HISTORY Procedure Laterality Date [...] BMI 42.03 kg/m? General: (more content not included)...[facility]03-14-2023 Nurse Note* Audrey Novoa MA - 05/15/2022 3:07 PM EDT Patient states her upper right breast feels tubular and intermittent pain upper right breast could it be hormonal. She also states that night sweats do come intermittent. Audrey Novoa MA [facility] History of Present illness Narrative* Ruth [...] biopsy completed 02/2016 noted invasive ductal carcinoma ER/WV positive, HER2 negative. : Lumpectomy completed 03/21/16 noted grade 2 invasive ductal carcinoma, DCIS grade 2, 14 mm : Margins negative (discussed with the pathologist who assured negative margins but that the anterior margin was within 1.0mm anteriorly). : Robeline lymph node was positive for involvement. 06/25/16 [...] Invasive ductal carcinoma of right breast (HCC) ER/WV+ HER2- PAST SURGICAL HISTORY Procedure Laterality Date [...] ICD10: C50.311, Z17.0 Completed lumpectomy March 2016 [id number]. Reviewed different options for adjuvant chemotherapy andafter [...] Ruth Ann Gutierres PA-C documented [facility] Evaluation note* Encounter Date Diagnosis Assessment [...] understanding and is agreeable with treatment plan [facility] 10-05-2022 Evaluation note* Encounter Date Diagnosis [...] has microscopic hematuria likely due to Nephrolithiasis [facility] Other 12-08-2021 Note [id number]12-08-2021 NoteEducation Materials POST OPERATIVE TOTAL HIP [...] can be done to rule of a DVT.[facility] [id number] [facility] 2[facility] Dis[facility] Summary PERSON INFORMATION Name KATARINA CAMARA Age 75 Years 1945 Sex FEMALE Language Guamanian PCP NICOLE VARGAS MD Marital Status Med Service Observation Acct# Arrival 02/06/2021 08:56:00 Visit Reason SURGERY - RIGHT TOTAL HIP Acuity LOS 002 01:34 Address: [address] [place] [address] Comment: PROVIDER INFORMATION VITALS INFORMATION Vital Sign [...] range between ( 1.3 and 2.9 ) Cataño Abs#: 0.6 x103/mcL -- Normal range between ( 0.0 and 0.8 ) Auto Baso %: 0.5 % -- Normal range between ( 0.2 and 2.0 ) Auto Cataño %: 11 % -- Normal range between [...] INCOMPLETE INFORMATION PATIENT EDUCATION INFORMATION Instructions: Emily [facility] Extended Care PT instructions ([id number]) Follow up: With: Address: When: Bernadine Diaz [address] [place] [address] Business (1) 12/17/2020 11:00 AM With: Address: When: NICOLE VARGAS [address] [place] [address] Business (1) DIAGNOSIS Chronic right hip pain; Other chronic pain; Primary localized osteoarthritis of right hip Comment: PHYS [facility]12-06-2021 Note [id number] HospitalDis[facility] summary Author Tamiko Zhou [facility] January 18, 2023 12:54pm Note Date/Time January 18, 2023 12:50pm [address] [address] Discharge Summary Signed Patient: Katarina Camara MR#: [id number] : 1945 Acct:[id number] Age/Sex: 77 / F Adm Date: 3 Loc: CL Room: Attending Dr: Nani Calloway MD Copies to: Nani Calloway MD, [facility] MD Tamiko Torre DO~ Providers Date of [...] distal circumflex with 2.75 x 18 mm Thorndike; ostial/proximal circumflex with 3.5 x 12 mm Thorndike, and mid LAD with 3 x 18 mm Thorndike. She developed mild right infra inguinal hematoma postoperatively, stayed overnight. CT imaging did not reveal any suprainguinal or retroperitoneal pathology, hemoglobin was stable She has been up and ambulating in the room with moderate infrainguinal ecchymosis but otherwise soft groin. She will be discharged today on current therapies to follow-up with her primary allied health professional Condition Condition at Discharge: Stable Status at [...] doctor or pharmacist, without first calling the allied health professional who implanted the stent. If you require [...] weight lifting, stair steppers, etc. until the allied health professional approves these activities. Check with the allied health professional on your first follow-up visit. CALL YOUR PHYSICIAN at [phone]: -If bleeding should occur from the catheter insertion site- apply pressure to the site then immediately call us. -Report any fever, redness, drainage, increased swelling, or firmness at the catheter insertion site. Some bruising or slight swelling may be present at thetime of discharge. -Should arm or leg become cold, numb, white, or blue, contact the allied health professional immediately. -IF you should experience episodes of [...] is recommended. Please call Central Scheduling at [phone] to schedule your appointment.] The attending allied health professional or [facility] nurse clinician should provide you with specific instructions regarding activity, diet, medications, and further follow up for you. Follow the medication instructions provided on your discharge. If the dosages and instructions on this sheet differ from the dosage and instructions on the bottle, follow the instructions on the bottle. [facility] is not responsible for incorrect prescription information [...] Tablet 325 mg PO QAM Follow Up: [facility] [Outside] - 01/22/23 10:30 am Documented By: Tamiko Zhou DO 01/18/23 1249 Signed By: <Electronically signed by Tamiko Zhou DO> 01/18/23 125 [facility] Work Phone: Evaluation note* Diagnosis Malignant neoplasm of lower-inner quadrant of right breast of female, estrogen receptor positive (HCC)- Primary Breast screening Breast screening, unspecified Encounter for screening mammogram for malignant neoplasm of breast Other screening mammogram Osteopenia, unspecified location documented in this encounter [facility] assessment information [facility] Work Phone: Evaluation note* Diagnosis Abnormal stress test Other nonspecific abnormal cardiovascular system function study Angina pectoris (CMS/HCC) Other and unspecified angina pectoris Abnormal EKG Nonspecific abnormal electrocardiogram (ECG) (EKG) Hyperlipidemia, unspecified hyperlipidemia type Essential hypertension, benign documented in this encounter [facility] Work Phone: Evaluation note* Diagnosis Coronary artery disease involving [place] coronary artery of [place] heart without angina pectoris- Primary S/P angioplasty with stent Postsurgical percutaneous transluminal coronary angioplasty status Angina pectoris (CMS/HCC) Other and unspecified angina pectoris Essential hypertension, benign Mixed hyperlipidemia BMI 40.0-44.9, adult (CMS/HCC) documented in this encounter [facility] Work Phone: Evaluation noteNo InformationNonorth [facility] [employer] Other Evaluation note* Diagnosis Onset Date Resolution Status Angina pectoris acute ASHD (arteriosclerotic heart disease) acute Hyperlipidemia acute Hypertension acute S/P cardiac catheterization acute [facility] Work Phone: Evaluation note* Diagnosis Stented coronary artery- Primary Postsurgical percutaneous transluminal coronary angioplasty status Coronary artery disease involving [place] coronary artery of [place] heart without angina pectoris Essential hypertension, benign Mixed hyperlipidemia Abnormal stress test Other nonspecific abnormal cardiovascular system function study Morbid obesity (CMS/HCC) Morbid obesity documented in this encounter [facility] Work Phone: Evaluation note* Diagnosis Malignant neoplasm of lower-inner quadrant of right breast of female, estrogen receptor positive (HCC)- Primary Obesity, Class III, BMI 40-49.9 (morbid obesity) (HCC) Morbid obesity Breast screening Breast screening, unspecified Encounter for screening mammogram for malignant neoplasm of breast Other screening mammogram Osteopenia, unspecified location [facility] Diagnosis Malignant neoplasm of lower-inner quadrant of right breast of female, estrogen receptor positive (HCC)- Primary [facility]* Diagnosis Onset Date Resolution Status Coronary artery disease invo lving [place] coronary artery of [place] heart acute Former smoker acute Osteoporosis acute [facility] Work Phone: Evaluation note* Diagnosis Coronary artery disease involving [place] coronary artery of [place] heart without angina pectoris- Primary S/P PTCA (percutaneous transluminal coronary angioplasty) Postsurgical percutaneous transluminal coronary angioplasty status Mixed hyperlipidemia Essential hypertension, benign BMI 39.0-39.9,adult Former smoker Personal history of tobacco use, presenting hazards to health Class 2 obesity documented in this encounter [facility] Work Phone: Evaluation note* Diagnosis Onset Date Resolution Status Sinobronchitis acute Osteopenia acute [facility] Work Phone: Evaluation note* Diagnosis Onset Date Resolution Status Sinobronchitis acute Coronary artery disease invo lving [place] coronary artery of [place] heart acute Cough syncope acute Osteopenia acute Periorbital ecchymosis of left eye acute Sinobronchitis acute Cough acute [facility] Work Phone: Evaluation note* Diagnosis Onset Date Resolution Status Coronary artery disease invo lving [place] coronary artery of [place] heart acute Cough syncope acute Osteopenia acute Periorbital ecchymosis of left eye acute Sinobronchitis acute Cough acute Bilateral renal cysts acute CKD (chronic kidney disease) stage 3, GFR 30-59 ml/min acute [id number] acute Kidney stones acute Microscopic hematuria acute Secondary hyperparathyroidism [facility] Work Phone: Evaluation note* Diagnosis Onset Date Resolution Status Cough acute Bilateral renal cysts acute CKD (chronic kidney disease) stage 3, GFR 30-59 ml/min acute [id number] acute Hyperuricemia acute Hypokalemia acute Kidney stones acute Microscopic hematuria acute Secondary hyperparathyroidism acute Cough due to NIURKA inhibitor a cute [facility] Work Phone: evaluation note* Diagnosis Subarachnoid hemorrhage [...] Coronary atherosclerosis of unspecified type of vessel, [place] or graft documented in this encounter Gopi Fernando [facility] general Narrative - Reported* Type Description [...] History SEE ABOVE Hospitalization History CHILD BIRTHS [facility] Other [facility] general Narrative - Reported* Type Description Date [...] History SEE ABOVE Hospitalization History CHILD BIRTHS [facility] Other History general Narrative - Reported* Type [...] PCI Small right groin hematoma, Obesity 01/17/23-01/18/23 [facility] Other Hospital Discharge instructions Additional Instructions DISCHARGE [...] doctor or pharmacist, without first calling the allied health professional who implanted the stent. If you require [...] weight lifting, stair steppers, etc. until the allied health professional approves these activities. Check with the allied health professional on your first follow-up visit. CALL YOUR PHYSICIAN at [phone]: -If bleeding should occur from the catheter insertion site- apply pressure to the site then immediately call us. -Report any fever, redness, drainage, increased swelling, or firmness at the catheter insertion site. Some bruising or slight swelling may be present at the time of discharge. -Should arm or leg become cold, numb, white, or blue, contact the allied health professional immediately. -IF you should experience episodes of [...] is recommended. Please call Central Scheduling at [phone] to schedule your appointment.] The attending allied health professional or [facility] nurse clinician should provide you with specific instructions regarding activity, diet, medications, and further follow up for you. Follow the medication instructions provided on your discharge. If the dosages and instructions on this sheet differ from the dosage and instructions on the bottle, follow the instructions on the bottle. [facility] is not responsible for incorrect prescription information provided by the patient during their visit. Do not stop your medications without consulting your health care provider. Please take the list with you to your next doctor's appointment.[facility] Work Phone: Progress note Author W Abelardo [facility] January 18, 2023 12:55pm Note Date/Time January 18, 2023 12:26pm [facility] [address] [place] [address] Cardiology Progress Note Signed Patient: Katarina Camara MR#: [id number] : 1945 Acct:[id number] Age/Sex: 77 / F Adm Date: 3 Loc: Room: Type: [facility] Attending Dr: Nani Calloway [...] stress testing from discussion with her primary allied health professional There is no prior history of myocardial [...] PCI of mid/distal circumflex and ostial circumflex Thorndike stents with IVUS guidance, and mid LAD [...] Code(s): I25.10 - Atherosclerotic heart disease of [place] coronary artery without angina pectoris Status: Acute [...] signed by Tamiko Zhou DO> 01/18/23 1255 [facility] Work Phone: Reason for referral [...] BREAST INC CAD Ruth Ann Gutierres PA-C [address] [place] [address] [place] [address] [facility] Imaging [address] [place] [address] Referral ID Status Reason Start Date Expiration Date Visits Requested Visits Authorized [id number] Pending Review Auto-Generat ed Referral 05/15/2022 06/14/2023 1 1 [facility] for referral (narrative)* Consultation (Routine) - Authorized Specialty Diagnoses / Procedures Referred By Andrés pereyra Referred To Contact Cardiology Diagnoses Abnormal stress test Angina pectoris (CMS/HCC) Procedures Follow Up In Cardiology Nani Calloway MD [address] [facility] 2, [address] [address] Nani Calloway MD [address] [place] [address] Referral ID Status Reason Start Date Expiration Date V isits Requested Visits Authorized [id number] Authorized 12/25/2022 12/25/2023 1 1 * Cardiovascular (Routine) - Pending Review Specialty Diagnoses / Procedures Referred By Contac t Referred To Contact Diagnoses Abnormal stress test Angina pectoris (CMS/HCC) Procedures ECG 12 Lead Nani Calloway MD [address] [place] [address] Referral ID Status Reason Start Date Expiration Date V isits Requested Visits Authorized [id number] Pending Review 12/25/2022 12/25/2023 1 1 [facility] Work Phone: Reason for referral (narrative)* Consultation (Routine) - Authorized Specialty Diagnoses / Procedures Referred By Contac t Referred To Contact Cardiology Diagnoses Coronary artery disease involving [place] coronary artery of [place] heart without angina pectoris Procedures Follow Up In Cardiology Jacqueline Campos APRN-MOTION STUDY ANALYST [address] [place] [address] Nani Calloway MD [address] [place] [address] Referral ID Status Reason Start Date Expiration Date V isits Requested Visits Authorized [id number] Authorized 01/22/2023 01/22/2024 1 1 * Consultation (Routine) - Authorized Specialty Diagnoses / Procedures Referred By Contac t Referred To Contact Cardiac Rehabilitation Diagnoses S/P angioplasty with stent Coronary artery disease involving [place] coronary artery of [place] heart without angina pectoris Jacqueline Campos APRN-MOTION STUDY ANALYST [address] [place] [address] Referral ID Status Reason Start Date Expiration Date Visits Requested Visits Authorized [id number] Authorized Specialty Services Required 01/22/2024 1 1 [facility] Work Phone: [facility] for referral (narrative)* Consultation (Routine) - Authorized Specialty Diagnoses / Procedures Referred By Contac t Referred To Contact Cardiology Diagnoses Essential hypertension, benign Procedures Follow Up In Cardiology Nani Calloway MD [address] [facility] 2, [address] [address] Nani Calloway MD 7[address] [facility] 2, [address] [address] Referral ID Status Reason Start Date Expiration Date V isits Requested Visits Authorized [id number] Authorized 04/02/2023 04/01/2024 1 1 * Consultation (Routine) - Authorized Specialty Diagnoses / Procedures Referred By Contac t Referred To Contact Cardiology Diagnoses Coronary artery disease involving [place] coronary artery of [place] heart without angina pectoris Essential hypertension, benign Procedures Follow Up In Cardiology Nani Calloway MD 7[address] [facility] 2, [address] [address] Referral ID Status Reason Start Date Expiration Date V isits Requested Visits Authorized [id number] Authorized 04/02/2023 04/01/2024 1 1 [facility] Work Phone: reason for referral (narrative)* [...] BREAST INC CAD Ruth Ann Gutierres PA-C [address] [place] [address] [place] [address] [facility] Imaging [address] [place] [address] Referral ID Status Reason Start Date Expiration Date Visits Requested Visits Authorized [id number] Pending Review Auto-Generat ed Referral 04/14/2024 06/11/2024 1 1 [facility] for referral (narrative)* Consultation (Routine) - Authorized Specialty Diagnoses / Procedures Referred By Contac t Referred To Contact Cardiology Diagnoses Coronary artery disease involving [place] coronary artery of [place] heart without angina pectoris Procedures Follow Up In Cardiology Nani Calloway MD [address] [place] [address], [address] [address] Nani Calloway MD [address] [place] [address] 2, [address] [address] Referral ID Status Reason Start Date Expiration Date V isits Requested Visits Authorized [id number] Authorized 08/08/2023 08/07/2024 1 1 [facility] Work [...] for Visit Coronary artery dise ase involving [place] coronary artery of [place] heart Former smoker Osteoporosis Chief Complaint z13.820 m81.0 cough 4 month follow up Reason for Visit Sinobronchitis Osteopenia Chief Complaint cough 4 month follow up Ongoing cough Reason for Visit Sinobronchitis Coronary artery disease involving [place] coronary artery of [place] heart Cough syncope Osteopenia Periorbital ecchymosis of left eye Sinobronchitis Cough Chief Complaint cough 4 month follow up Ongoing cough r05.9 Reason for Visit Sinobronchitis Coronary artery disease involving [place] coronary artery of [place] heart Cough syncope Osteopenia Periorbital ecchymosis of left eye Sinobronchitis Cough Chief Complaint 4 month follow up Ongoing cough r05.9 RENAL 1 year follow up Reason for Visit Coronary artery dise ase involving [place] coronary artery of [place] heart Cough syncope Osteopenia Periorbital ecchymosis of left eye Sinobronchitis Cough Bilateral renal cysts CKD (chronic kidney disease) stage 3, GFR 30-59 ml/min [id number] Kidney stones Microscopic hematuria Secondary hyperparathyroidism Chief Complaint 4 month follow up Ongoing cough r05.9 RENAL 1 year follow up r31.9 n25.81 i12.9 q61.02 n18.30 Reason for Visit Coronary artery dise ase involving [place] coronary artery of [place] heart Cough syncope Osteopenia Periorbital ecchymosis of left eye Sinobronchitis Cough Bilateral renal cysts CKD (chronic kidney disease) stage 3, GFR 30-59 ml/min [id number] Kidney stones Microscopic hematuria Secondary hyperparathyroidism Chief Complaint Ongoing cough r05.9 RENAL 1 year follow up r31.9 n25.81 i12.9 q61.02 n18.30 1 month follow up Reason for Visit Cough Bilateral renal cysts CKD (chronic kidney disease) stage 3, GFR 30-59 ml/min [id number] Hyperuricemia Hypokalemia Kidney stones Microscopic hematuria Secondary hyperparathyroidism Cough due to NIURKA inhibitor Additional Source Comments INFORMATION SOURCE (unrecogn ized section and content) DATE CREATED AUTHOR 02/15/2021 [facility] DATE CREATED AUTHOR AUTHOR'S ORGANIZ ATION 06/16/2022 [facility] DATE CREATED AUTHOR AUTHOR'S ORGANIZ ATION 06/28/2022 [facility] DATE CREATED AUTHOR AUTHOR'S ORGANIZ ATION 11/02/2022 [facility] ical Center DATE CREATED AUTHOR AUTHOR'S ORGANIZ ATION 05/15/2023 [facility] DATE CREATED AUTHOR AUTHOR'S ORGANIZ ATION 12/01/2023 [facility] DATE CREATED AUTHOR AUTHOR'S ORGANIZ ATION 02/18/2024 [facility] DATE CREATED AUTHOR AUTHOR'S ORGANIZ ATION 03/05/2024 [facility] DATE CREATED AUTHOR AUTHOR'S ORGANIZ ATION 03/12/2024 [facility] DATE CREATED AUTHOR AUTHOR'S ORGANIZ ATION 03/14/2024 [facility] REASON FOR VISIT (unrecogniz ed section and content) Reason Comments Refill Request Reason Comments Breast Cancer 1 year follow up Reason Comments Establish Care Abnormal stress & SO B Specialty Diagnoses / Procedures Referred By Contac t Referred To Contact Diagnoses Abnormal stress test Angina pectoris (CMS/HCC) Procedures ECG 12 Lead Nani Calloway MD [address] [place] [address] Referral ID Status Reason Start Date Expiration Date V isits Requested Visits Authorized [id number] Pending Review 12/25/2022 12/25/2023 1 1 Reason Comments Follow-up [facility], d/c Specialty Diagnoses / Procedures Referred By Contac t Referred To Contact Cardiology Diagnoses S/P angioplasty with stent Procedures Follow Up In Cardiology Niraj Zhou DO [address] [place] [address] Nani Calloway MD [address] [place] [address] Referral ID Status Reason Start Date Expiration Date V isits Requested Visits Authorized [id number] Authorized 01/18/2023 01/18/2024 1 1 Reason Comments Follow-up 3 month Post-Cath Specialty Diagnoses / Procedures Referred By Contac t Referred To Contact Cardiology Diagnoses Abnormal stress test Angina pectoris (CMS/HCC) Procedures Follow Up In Cardiology Nani Calloway MD [address] [place] [address] Nani Calloway MD [address] [place] [address] Referral ID Status Reason Start Date Expiration Date V isits Requested Visits Authorized [id number] Authorized 12/25/2022 12/25/2023 1 1 Reason Comments Breast Cancer Follow up Reason Comments Lab Orders Reason Comments Follow-up 6 month Specialty Diagnoses / Procedures Referred By Contac t Referred To Contact Cardiology Diagnoses Coronary artery disease involving [place] coronary artery of [place] heart without angina pectoris Procedures Follow Up In Cardiology Jacqueline Campos, PROJECT MANAGER-MOTION STUDY ANALYST [address] [facility] [address], [facility] [address] [place] [address] Nani Calloway MD [address] [facility] [address] [place] [address] Referral ID Status Reason Start Date Expiration Date V isits Requested Visits Authorized [id number] Authorized 01/22/2023 01/22/2024 1 1 Reason Comments Fall Specialty Diagnoses / Procedures Referred By Contac t Referred To Contact Diagnoses SAH (subarachnoid hemorrhage) (HCC) Tona Avendaño MD [address] [place] [address] [facility] [address] [place] [address] Referral ID Status Reason Start Date Expiration Date Visits Re quested Visits Authorized [id number] 1 1 Source Comments (unrecognize d section and content) In the event this informatio n is protected by the Federal Confidentiality of Alcohol and Drug Abuse Patient Records regulations: The Federal rules restrict any use of the information to criminally investigate or prosecute any alcohol or drug abuse patient.[facility] the event this information is protected by the Federal Confidentiality of Alcohol and Drug Abuse Patient Records regulations: The Federal rules restrict any use of the information to criminally investigate or prosecute any alcohol or drug abuse patient.[facility] the event this information is protected by the Federal Confidentiality of Alcohol and Drug Abuse Patient Records regulations: The Federal rules restrict any use of the information to criminally investigate or prosecute any alcohol or drug abuse patient.[facility] the event this information is protected by the Federal Confidentiality of Alcohol and Drug Abuse Patient Records regulations: The Federal rules restrict any use of the information to criminally investigate or prosecute any alcohol or drug abuse patient.[facility] Care Teams (unrecognized sec tion and content) Computer Aided Design Technician Relationship Specialty Start Date End Date Nicole Vargas [address] [address] PCP - General Family Medicine 07/15/18 Computer Aided Design Technician Relationship Specialty Start Date End Date Nicole Vargas [address] [facility] [address] [place] [address] PCP - General Family Medicine 07/15/18 Team Status: Active Member Role Status Dates Nicole Vargas MD Primary Care Provider Active Team Status: Inactive Member Role Status Dates Nicole Vargas MD Primary Care Provider Active Shellie Fan , ECHO TECH-C Attending Provider Active Tamiko Zhou DO Referring Provider Active Computer Aided Design Technician Relationship Specialty Start Date End Date Nicole Vargas MD [address] [facility] [address] [place] [address] PCP - General Family Medicine 12/25/22 Computer Aided Design Technician Relationship Specialty Start Date End Date Nicole Vargas MD [address] [facility] [address] [place] [address] PCP - General Family Medicine 12/25/22 Mary Dasilva, instructor trainer canine serviceLife Skills Instructor 01/18/23 Team Status: Inactive Member Role Status Dates Nicole Vargas MD Primary Care Provider Active Nani Calloway MD Attending Provider Active Computer Aided Design Technician Relationship Specialty Start Date End Date Nicole Vargas MD [address] [facility] [address] [place] [address] PCP - General Family Medicine 02/05/23 Mary Dasilva, instructor trainer canine serviceLife Skills Instructor 01/18/23 Team Status: Inactive Member Role Status [...] April 16, 2023 End: April 16, 2023 Computer Aided Design Technician Relationship Specialty Start Date End Date Mast Hilario E, DO [address] [facility] [place] [address] PCP - General Family Medicine 05/13/23 Computer Aided Design Technician Relationship Specialty Start Date End Date Nicole Vargas MD [address] [address] PCP - General Family Medicine 07/15/18 05/12/23 Mast, Hilario E, DO [address] [facility] [place] [address] PCP - General Family Medicine 05/13/23 Team [...] June 24, 2023 End: June 24, 2023 Computer Aided Design Technician Relationship Specialty Start Date End Date Nicole Vargas MD [address] [facility] [address] [place] [address] PCP - General Family Medicine 02/05/23 Team [...] December 09, 2023 End: December 09, 2023 Computer Aided Design Technician Relationship Specialty Start Date End Date CleoHilario [address] [place] [address], [facility] [address] PCP - General Family Medicine 03/03/24 Goals [...] - Provider: Maria E Sweeney APRN - MOTION STUDY ANALYST)1641 (Given - Provider: Tanya Higgins RN) 0947 (Given - Provider: Francie Liz RN)1730 (Due) hydroCHLOROthiazide (HYDRODIURIL) tablet 25 mg 25 mg, Oral, DAILY, First dose on Sat03/03/24 at 2100, Until Discontinued, Substituted for Indapamide (LOZOL). 0750 (Given - Provider: Ольга Kee RN) 0756 (Given - Provider: Shayla Omalley RN) 1140 (Given - Provider: Francie Liz [...] Discontinued 0750 (Given - Provider: Ольга Kee RN) [...] BE BASED ON THE PRIMARY CLINICAL RECORDS. [employer] [facility]. provides no warranty or guarantee of the accuracy or completeness of information in this document."
[2024-03-16] MEDS: POTASSIUM CHLORIDE IN WATER 10 MEQ/100 ML PREMIX 100 MEQ IV (23:14)
[2024-03-17] VITALS (23 sets, daily range): BP systolic 54–114; BP diastolic 38–71; PULSE 72–101; TEMP 36.4–36.6; O2SAT 90–95
[2024-03-17] MEDS: POTASSIUM CHLORIDE IN WATER 10 MEQ/100 ML PREMIX 100 MEQ IV ×3 (00:24→02:38)
[2024-03-17] MEDS: POTASSIUM CHLORIDE/D5-0.9%NACL 1,000 ML 100 ML IV (04:07)
[2024-03-17 05:20] LABS: Basophils Absolute Auto 0.1 10^3/uL (0.0-0.1); Basophils Percent Auto 0.4 % (0.2-2.0); Eosinophils Absolute Auto 0.1 10^3/uL (0.0-0.7); Eosinophils Percent Auto 0.8 % (0.9-7.0); Hematocrit 43.4 % (36.0-48.0); Hemoglobin 15.1 g/dL (12.0-16.0); Immature Granulocytes Abs Auto 0.07 10^3/uL (0.00-0.03); Immature Granulocytes Pct Auto 0.6 % (0.0-0.5); Lymphocytes Absolute Auto 1.8 10^3/uL (1.2-3.8); Lymphocytes Percent Auto 14.9 % (20.5-60.0); Mean Corpuscular HGB Conc 34.8 g/dL (29.9-35.2); Mean Corpuscular Hemoglobin 29.9 pg (26.7-34.0); Mean Corpuscular Volume 85.9 fL (81.0-99.0); Mean Platelet Volume 10.2 fL (9.5-13.5); Monocytes Absolute Auto 1.4 10^3/uL (0.3-0.8); Monocytes Percent Auto 12.2 % (1.7-12.0); Neutrophils Absolute Auto 8.4 10^3/uL (1.4-6.5); Neutrophils Percent Auto 71.1 % (43.0-75.0); Platelet Count 323 10^3/uL (150-450); Red Blood Count 5.05 10^6/uL (4.20-5.40); Red Cell Distribution Width 12.1 % (11.0-15.0); White Blood Count 11.7 10^3/uL (4.0-11.0)
[2024-03-17 05:39] LABS: Alanine Aminotransferase 25 U/L (14-59); Albumin Globulin Ratio 0.9; Albumin Level 3.1 g/dL (3.4-5.0); Alkaline Phosphatase 98 U/L (46-116); Anion Gap 5.8; Aspartate Amino Transferase 30 U/L (15-37); BUN Creatinine Ratio 21.4; Bilirubin Total 0.9 mg/dL (0.2-1.0); Calcium 8.6 mg/dL (8.5-10.1); Carbon Dioxide 42.5 mmol/L (21.0-32.0); Estimated GFR (African America >60 (>=60 mL/min/1.73m^2); Estimated GFR (Non-African Ame 52 (>=60 mL/min/1.73m^2); Globulin 3.3 g/dL; Glucose 136 mg/dL (74-106); Magnesium 2.5 mg/dL (1.8-2.4); Total Protein 6.4 g/dL (6.4-8.2)
[2024-03-17 05:59] LABS: Chloride 78 mmol/L (98-107); Potassium 2.3 mmol/L (3.5-5.1); Sodium 124 mmol/L (136-145)
--- NOTE | 2024-03-17 08:47 | PM.HP ---
HPI H&P: HPI History of Present Illness Chief complaint: syncope, hypokalemia, hypochloremia, uti Narrative: Patient is a 78 y.o white female with past medical history of Hypertension, hypothyroidism, osteoporosis, depression, CAD and hyperlipidemia who presented to the ER last night with syncopal event while toileting. Of note patient was seen in the ER on 03/03/25 after a fall and had nasal fracture had a Small subarachnoid Hemorrhage and was sent to [facility] in [place] where she was discharged on 03/06/24 and was sent to the [facility]. Her daughter is present at bedside, she notes she has not been doing well with rehab. No improvement in functional status since being admitted to the [facility] several weeks ago. patient reports when she bends over is when she gets dizzy and passes out. I have reviewed finding from [email or web address] They stopped Brilinta and aspirin due to the SAH. CT of abd/pelvis showed no acute findings and normal Aorta. She has been having diarrhea. ER findings: repeat CT head did not show any acute hemorrhages, chest X-ray showed no acute processes, She had several severe electrolyte abnormalities, potassium was 1.9, Sodium 124, Creatinine 1.10, WBC's 11.7, UA was positive for UTI. She was given IV potassium and fluids. Also given Rocephin for UTI and was admitted to the hospital service for further plan of care. Opioid HPI Opioid Management Most Recent Pain and Opioid Data: Last Pain Scale 6 03/03/24 12:33 03/03/24 Last Pain Assessment 03/17/24 13:38 Last ORT Total Score 0 03/16/24 22:53 03/16/24 Last ORT Risk Category Low Risk 03/16/24 22:53 03/16/24 Review of Systems ROS Narrative ROS: a complete review of systems were reviewed with patient and are positive as below or listed in History of Chief Complaint. General: no fever, chills, night sweats Head: no headache, trauma, visual changes, nausea or vomiting Skin: no reported rashes, itching or sores Eyes: no blurriness of vision Ears: no reported hearing loss, vertigo, earache, or tinnitus Throat: no sore throat, hoarseness, swelling of neck, or tongue pain Heart: no chest pain Lungs: no shortness of breath or cough GI: no diarrhea or vomiting/nausea Urinary: no urinary urgency, frequency or pain Neuro: no numbness or tingling HEM: no bleeding issues or bruising ENDO: no thyroid problems Psych: no anxiety or depression PFSH PFS Medical History (Updated 03/17/24 @ 14:24 by Shayla Lowery DO) Hyperlipidemia ?E78.5 - Hyperlipidemia, unspecified (ICD-10) Malignant neoplasm of right breast ?C50.911 - Malignant neoplasm of unspecified site of right female breast (ICD-10) Primary hypertension ?I10 - Essential (primary) hypertension (ICD-10) Hypothyroidism ?E03.9 - Hypothyroidism, unspecified (ICD-10) Fibromyalgia ?M79.7 - Fibromyalgia (ICD-10) Surgical History Presence of left artificial hip joint ?Z96.642 - Presence of left artificial hip joint (ICD-10) Social History Within the past year, how often did you have a drink containing alcohol: never Score interpretation: A score less than 3 is consistent with normal alcohol consumption. Smoking status: Former smoker Non-prescribed substance use: denies use Previous occupational history: retired Little interest or pleasure in doing things: not at all Feeling down, depressed, or hopeless: not at all Feel stressed/tense/nervous/anxious/difficulty sleeping: not at all Do you think of yourself as: straight/heterosexual Gender Identity: female Meds Home Medications and Allergies Home Medications ?Medication ?Instructions ?Recorded ?Confirmed ?Type acetaminophen 500 mg capsule 500 mg PO Q6H PRN fever or pain 03/03/24 03/16/24 History alendronate 70 mg tablet 70 mg PO .QWEEKLY 03/03/24 03/17/24 History carvedilol 6.25 mg tablet 3.125 mg PO Q12H 03/03/24 03/17/24 History duloxetine 60 mg capsule,delayed 60 mg PO DAILY 03/03/24 03/17/24 History release indapamide 1.25 mg tablet 1.25 mg PO DAILY 03/03/24 03/16/24 History levothyroxine 112 mcg tablet 112 mcg PO DAILY 03/03/24 03/16/24 History montelukast 10 mg tablet 10 mg PO DAILY 03/03/24 03/17/24 History potassium chloride 20 mEq 20 meq PO Q12H 03/03/24 03/17/24 History tablet,extended release rosuvastatin 20 mg tablet 20 mg PO DAILY 03/03/24 03/16/24 History aspirin 81 mg capsule 81 mg PO DAILY 03/16/24 03/16/24 History furosemide 40 mg tablet 40 mg PO Q12H edema 03/16/24 03/17/24 History albuterol sulfate 90 mcg/actuation 1 puff inhalation Q6H PRN 03/17/24 03/17/24 History aerosol inhaler shortness of breath or wheezing Allergies Allergy/AdvReac Type Severity Reaction Status Date / Time pregabalin (From Lyrica) Allergy Severe Confusion Verified 03/16/24 18:29 ibuprofen Allergy CKD Verified 03/17/24 10:07 Exam Narrative Exam Narrative: General: Patient is alert, and oriented to person, place and time with normal affect, proper hygiene Skin: some bruising under eyes residual from nasal fracture Eyes: PERRLA, no nystagmus present, conjunctiva clear, no scleral icterus Ears: normal gross auditory acuity Nose: symmetric, no discharge, no maxillary or frontal sinus tenderness Neck: no masses palpated, normal thyroid, no JVD or audible carotid bruits Heart: Normal rate and rhythm, no murmurs/rubs/gallops Lungs: no audible wheezes, crackles and normal breath sounds all lung weller Abdomen: Normal audible bowel sounds, no distension, No palpable masses, no organomegaly, no rebound/guarding/ or rigidity Musculoskeletal: no swelling bilateral lower extremities Neuro: CN II-X grossly intact Constitutional Vital Signs, click to edit/add: Last Vital Signs Temp 97.8 F 03/17/24 07:50 Pulse 74 03/17/24 08:00 Resp 24 H 03/17/24 07:50 BP 105/71 03/17/24 07:50 Pulse Ox 91 L 03/17/24 07:50 O2 Del Method Nasal Cannula 03/17/24 07:50 O2 Flow Rate 3 03/17/24 07:50 Results Labs Labs: Short CBC 03/16/24 03/17/24 Range/Units 20:20 05:06 WBC 12.7 H 11.7 H (4.0-11.0) 10^3/uL Hgb 15.0 15.1 (12.0-16.0) g/dL Hct 42.5 43.4 (36.0-48.0) % Plt Count 358 323 (150-450) 10^3/uL BMP 03/16/24 03/17/24 20:20 05:06 Sodium 126 L 124 L* Potassium 1.9 L* 2.3 L* Chloride 79 L* 78 L* Carbon Dioxide 44.7 H 42.5 H BUN 25.0 H 22.0 H Creatinine 1.10 H 1.03 H Glucose 129 H 136 H Calcium 8.2 L 8.6 Liver Function 03/16/24 03/17/24 Range/Units 20:20 05:06 Total Bilirubin 1.0 0.9 (0.2-1.0) mg/dL AST 32 30 (15-37) U/L ALT 28 25 (14-59) U/L Alkaline Phosphatase 106 98 (46-116) U/L Albumin 3.2 L 3.1 L (3.4-5.0) g/dL Urine 03/16/24 Range/Units 21:00 Urine Color Lt. yellow (YELLOW) Urine Clarity Clear (CLEAR) Urine pH 6.0 (5.0-9.0) Ur Specific [place] 1.015 (1.005-1.025) Urine Protein Trace (NEG/TRACE) mg/dL Urine Glucose (UA) Negative (NEGATIVE) mg/dL Assessment and Plan Assessment and Plan (1) Syncope and collapse: Assessment and Plan: check Caroid dopplers and Echo. I have requested information from [facility] to see what work up showed there and after review it was just CT's that i received. She has many factors that can be contributing to this including electrolyte abnormalities, acute UTI, hypothyrodisim, CELSA. Repeat CT head showed no acute bleeds or acute strokes. Will need Event or holter monitor at discharge. PT/OT evaluations (2) Hypokalemia: Assessment and Plan: replace IV and orally, hold diuretics for now, recheck bmp. Diarrhea related, possible C Diff, check stool cultures (3) Hyponatremia: Assessment and Plan: monitor for fluid overload. elevated proBNP, would improve with diuretics but have to monitor potassium carefully (4) CELSA (acute kidney injury): Assessment and Plan: check CK level, treat UTI. avoid nephrotoxins (5) Acute UTI: Assessment and Plan: continue treatment with Rocephin, urine culture pending (6) Hypochloremia: (7) Hyperlipidemia: Assessment and Plan: will hold statin for now, recheck CK level Qualifiers: Hyperlipidemia type: unspecified Qualified Code(s): E78.5 - Hyperlipidemia, unspecified (8) Primary hypertension: Assessment and Plan: will check orthostatics, decrease Coreg, Hold lasix and Indapamide for potassium issues (9) Hypothyroidism: Assessment and Plan: recheck TFT's, continue levothyroxine Qualifiers: Hypothyroidism type: unspecified Qualified Code(s): E03.9 - Hypothyroidism, unspecified (10) Fibromyalgia: Assessment and Plan: Hold cymbalta for electrolyte abnormalities (11) Diarrhea: Assessment and Plan: check cultures Qualifiers: Diarrhea type: unspecified type Qualified Code(s): R19.7 - Diarrhea, unspecified Plan patient is a full code continue SCD's Patient is inpatient status and is expected to cross 2 midnights for her severe electrolyte abnormalities, work up of syncope and high risk of deterioration and cardiac complications.
--- NOTE | 2024-03-17 09:04 | US_ITS ---
[address] [address] Patient Name: GURJIT CAMARA MRN: [id number] date: 1945 Sex: F Assigned Patient Location: [place] Current Patient Location: [place] Accession/Order Number: [id number] Exam Date: 03/17/2024 09:26 Report Date: 03/17/2024 10:08 At the request of: BEAR TRAN Procedure: US carotid duplex BI EXAMINATION: US carotid duplex BI HISTORY: syncope with collapse COMPARISON: No relevant comparison available. TECHNIQUE: Duplex Doppler ultrasound analysis of carotid and vertebral arteries. . Bilateral carotid arterial duplex examination was performed using B-mode, color flow and spectral analysis. Carotid stenosis is reported according to validated velocity parameters, similar to NASCET criteria. FINDINGS: RIGHT CAROTID ARTERY : Moderate plaque within bulb. Subclavian: 143.12 cm/s / 0 cm/s CCA: Prox: 135.03 cm/s / 18.74 cm/s Mid: 136.65 cm/s / 18.74 cm/s Distal: 104.34 cm/s / 17.12 cm/s BULB: 65.58 cm/s / 10.66 cm/s ICA: Prox: 115.51 cm/s / 9.07 cm/s Mid: 53.42 cm/s / 12.75 cm/s Distal: 55.62 cm/s / 11.65 cm/s ECA: 149.01 cm/s / 9.07 cm/s VERTEBRAL: 48.47 cm/s / 7.09 cm/s ICA/CCA ratio: 1.1 LEFT CAROTID ARTERY: Moderate plaque within bulb. Subclavian: 169.80 cm/s / 5.90 cm/s CCA: Prox: 130.19 cm/s / 18.74 cm/s Mid: 128.57 cm/s / 18.74 cm/s Distal: 118.88 cm/s / 17.12 cm/s BULB: 57.50 cm/s / 10.66 cm/s ICA: Prox: 68.81 cm/s / 13.89 cm/s Mid: 96.27 cm/s / 17.12 cm/s Distal: 93.04 cm/s / 21.97 cm/s ECA: 115.65 cm/s / 5.81 cm/s VERTEBRAL: 39.57 cm/s / 7.54 cm/s ICA/CCA ratio: 0.8 US/US carotid duplex BI IMPRESSION: 1. 0-49% flow stenosis within the right left carotid arteries. 2. Moderate amount of atherosclerotic plaque within carotid bulb bilaterally. Electronically authenticated by: PEPPER WOOD Date: 03/17/2024 10:08
--- NOTE | 2024-03-17 09:04 | CA_ITS ---
Patient Name: GURJIT CAMARA MR#: [id number] : 1945 Exam Date: 03/17/2024 Ordering Doctor: BEAR TRAN . ECHOCARDIOGRAM REPORT PROCEDURE: CA ECHO DOPPLER COMPLETE INDICATIONS: syncope with collapse, hypertension COMPARISON: None. DESCRIPTION: COMPLETE ECHOCARDIOGRAM Real-time transthoracic echocardiography with 2D, M-mode, spectral and color flow Doppler performed. QUALITY: Technically difficult due to patients condition. LEFT VENTRICLE: Small chamber size. Mild concentric left ventricular hypertrophy. Hyperdynamic systolic function. LV EF: Hyperdynamic left ventricular ejection fraction, (75%). DIASTOLIC: ATRIAL SEPTUM: LEFT ATRIUM: Normal chamber size. RIGHT ATRIUM: Normal chamber size. RIGHT VENTRICLE: Normal chamber size. Normal right ventricular systolic function. TRICUSPID VALVE: Normal mobility and thickness. No stenosis with trivial regurgitation. MITRAL VALVE: Normal mobility and thickness. No evidence of mitral valve stenosis. There is no mitral annular calcification. No mitral regurgitation. AORTIC VALVE: Not well visualized. No evidence of aortic valve stenosis. No aortic regurgitation. AORTIC ROOT: Normal diameter and appearance. Ascending aorta is normal in size. PULMONIC VALVE: Not well visualized. PERICARDIUM: No evidence of pericardial effusion. IVC: Collapses with inspirations. IVC is normal in size. PLEURA: CONCLUSION: 1. The left ventricle is small in size with hyperdynamic systolic function. LVEF is 75%. 2. Normal right ventricular size and systolic function. 3. No significant valvular dysfunction. 4. No pericardial effusion. Adult Echocardiography Procedure Report Left Ventricle LVEDD (3.7 - 5.6 cm): 3.10 cm LVESD (2.2 - 4.0 cm): 2.35 cm LVIVS thickness (0.6 - 1.2 cm): 1.31 cm LVPW thickness (0.5 - 1.0 cm): 1.34 cm LVOT Max Gradient: 3.81 mm[Hg] LVOT Area (cm2): 0.98 m/s Peak Velocity (LVOT): 0.98 m/s Mean Velocity (LVOT): 0.63 m/s LVOT Diameter 1.97 cm Left Atrium LA Volume Index (2D A2C): 19.05 ml/m2 Left Atrium Systolic Dimension: 2.62 cm Mitral Valve MV E to A Ratio: 0.64 Mitral Valve A-Wave Peak Velocity: 0.52 m/s Mitral Valve E-Wave Peak Velocity: 0.33 m/s Right Ventricle Aorta AO Root Diam: 2.60 cm Ascending Ao Diam: 2.57 cm Aortic Valve AoV Area (Peak Akbar): 2.90 cm2, 2.90 cm2 AoV Area (VTI): 2.91 cm2, 2.91 cm2 Peak Velocity(Antegrade Flow): 1.02 m/s Peak Gradient(Antegrade Flow): 4.20 mm[Hg] Mean Velocity(Antegrade Flow): 0.72 m/s Mean Gradient(Antegrade Flow): 2.43 mm[Hg] Velocity Time Integral: 19.17 cm Tricuspid Valve Pulmonic Valve Mean Gradient: 1.27 mm[Hg] Mean Velocity: 0.52 m/s Peak Velocity: 0.78 m/s, 0.93 m/s Peak Gradient: 3.49 mm[Hg], 2.44 mm[Hg] Right Atrium Right Atrium Systolic Pressure: 26.69 ml, 26.69 ml Dictated by: Crescencio Rinaldi M.D. on 03/21/2024 at 13:09 Approved by: Crescencio Rinaldi M.D. on 03/21/2024 at 13:17
[2024-03-17] MEDS: CARVEDILOL 6.25 MG TABLET 3.125 MG PO ×2 (09:22→21:29)
[2024-03-17 09:38] LABS: Chol HDL Ratio 3.2; Cholesterol 175 mg/dL (<=200); Creatine Kinase 82 U/L (26-192); HDL Cholesterol 55 mg/dL (40-60); Triglycerides 120 mg/dL (<=150)
[2024-03-17 10:00] LABS: TSH W/ REFLEX FT4 2.289 uIU/mL (0.358-3.740)
--- NOTE | 2024-03-17 10:07 | CM.NOTE ---
Rounds made with Dr. Lowery, plan of care discussed with pt and daughter. No discharge today. Pt came from [facility] bed. SW at bedside answering questions about bed hold at [facility] and discharge planning.
--- NOTE | 2024-03-17 10:12 | SWNOTE1 ---
Pt is from the [facility]. SW, doctor, case management, and nurse in room speaking with daughter and patient. Pt's daughter did get phone call from [facility] about paying to hold the bed. SW and case management did explain that they do nothave to pay to hold the bed, but there is a chance they will not have a bed available for her once she is stable for discharge. Paying to hold the bed guarantees she will have a bed at [facility] once she is stable for discharge. If they don't pay and [facility] does not have a bed, SW will be able to find her a [facility] facility that will have a bed for rehab. Daughter voiced understanding.
--- NOTE | 2024-03-17 13:19 | SWNOTE1 ---
SW did send updates to [facility]. As of now that is families first choice for rehab. [facility] will keep an eye on bed status and SW to evaluate closer to discharge.
[2024-03-17] MEDS: POTASSIUM CHLORIDE 10 MEQ ER TABLET 20 MEQ PO ×2 (13:38→21:29)
[2024-03-17 14:23] LABS: Anion Gap 2.7; Calcium 8.6 mg/dL (8.5-10.1); Carbon Dioxide 44.4 mmol/L (21.0-32.0); Estimated GFR (African America >60 (>=60 mL/min/1.73m^2); Estimated GFR (Non-African Ame 54 (>=60 mL/min/1.73m^2); Glucose 158 mg/dL (74-106); Sodium 125 mmol/L (136-145)
[2024-03-17 14:26] LABS: Chloride 80 mmol/L (98-107); Potassium 2.1 mmol/L (3.5-5.1)
--- NOTE | 2024-03-17 14:33 | CM.NOTE ---
Important Message From Medicare discussed with pt, pt verbalizes understanding and signs paper. Original given to pt and copy placed on pt's chart.
[2024-03-17] MEDS: POTASSIUM CHLORIDE 40 MEQ in 0.9 % SODIUM CHLORIDE 250 ML 67.5 MEQ IV (15:04)
[2024-03-17 18:44] LABS: Creatinine Urine Random 78.17 mg/dL (20.00-300.00); Sodium Urine Random 19 mmol/L (30-90)
[2024-03-17 21:21] LABS: Anion Gap 6.9; BUN Creatinine Ratio 18.4; Calcium 8.7 mg/dL (8.5-10.1); Carbon Dioxide 36.4 mmol/L (21.0-32.0); Estimated GFR (African America >60 (>=60 mL/min/1.73m^2); Estimated GFR (Non-African Ame 55 (>=60 mL/min/1.73m^2); Glucose 122 mg/dL (74-106); Potassium 3.3 mmol/L (3.5-5.1)
[2024-03-17 21:24] LABS: Sodium 124 mmol/L (136-145)
[2024-03-17 21:25] LABS: Chloride 84 mmol/L (98-107)
[2024-03-17] MEDS: CEFTRIAXONE 1,000 MG in 0.9 % SODIUM CHLORIDE 50 ML 100 MG IV (21:29)
[2024-03-17] MEDS: POTASSIUM CHLORIDE 10 MEQ ER TABLET 40 MEQ PO (23:30)
[2024-03-18] VITALS (18 sets, daily range): BP systolic 93–121; BP diastolic 60–69; PULSE 54–94; TEMP 36.1–36.7; O2SAT 90–96
[2024-03-18] MEDS: POTASSIUM CHLORIDE 10 MEQ ER TABLET 20 MEQ PO ×2 (06:06→09:30)
[2024-03-18 06:46] LABS: Basophils Absolute Auto 0.1 10^3/uL (0.0-0.1); Basophils Percent Auto 0.9 % (0.2-2.0); Eosinophils Absolute Auto 0.2 10^3/uL (0.0-0.7); Eosinophils Percent Auto 2.3 % (0.9-7.0); Hematocrit 43.4 % (36.0-48.0); Hemoglobin 14.7 g/dL (12.0-16.0); Immature Granulocytes Abs Auto 0.02 10^3/uL (0.00-0.03); Immature Granulocytes Pct Auto 0.3 % (0.0-0.5); Lymphocytes Absolute Auto 1.6 10^3/uL (1.2-3.8); Lymphocytes Percent Auto 20.3 % (20.5-60.0); Mean Corpuscular HGB Conc 33.9 g/dL (29.9-35.2); Mean Corpuscular Hemoglobin 30.1 pg (26.7-34.0); Mean Corpuscular Volume 88.8 fL (81.0-99.0); Mean Platelet Volume 9.9 fL (9.5-13.5); Monocytes Percent Auto 12.6 % (1.7-12.0); Neutrophils Absolute Auto 4.9 10^3/uL (1.4-6.5); Neutrophils Percent Auto 63.6 % (43.0-75.0); Platelet Count 304 10^3/uL (150-450); Red Blood Count 4.89 10^6/uL (4.20-5.40); Red Cell Distribution Width 12.6 % (11.0-15.0); White Blood Count 7.7 10^3/uL (4.0-11.0)
[2024-03-18 07:01] LABS: Alanine Aminotransferase 25 U/L (14-59); Albumin Globulin Ratio 0.9; Alkaline Phosphatase 90 U/L (46-116); Anion Gap 5.2; Aspartate Amino Transferase 26 U/L (15-37); BUN Creatinine Ratio 14.7; Bilirubin Total 0.9 mg/dL (0.2-1.0); Carbon Dioxide 40.7 mmol/L (21.0-32.0); Chloride 87 mmol/L (98-107); Estimated GFR (African America >60 (>=60 mL/min/1.73m^2); Estimated GFR (Non-African Ame 57 (>=60 mL/min/1.73m^2); Globulin 3.2 g/dL; Glucose 134 mg/dL (74-106); Magnesium 2.6 mg/dL (1.8-2.4); Sodium 130 mmol/L (136-145); Total Protein 6.2 g/dL (6.4-8.2)
[2024-03-18 07:02] LABS: Potassium 2.9 mmol/L (3.5-5.1)
--- NOTE | 2024-03-18 09:00 | PM.PN ---
Progress Note: Subjective Subjective Interval history: Patient is more alert today and seems less tired. She denies any issues or complaints. Still with diarrhea. No fevers or chills. C Diff came back positive. Patient placed in contact precautions and started on Oral Vancomycin. We discussed Carotid artery ultrasounds. She got dizzy when standing yesterday. Positive orthostatic blood pressures. I have also stopped Coreg today. Exam Narrative Exam Narrative: General: Patient is alert, and oriented to person, place and time with normal affect, proper hygiene Skin: some bruising under eyes residual from nasal fracture Eyes: PERRLA, no nystagmus present, conjunctiva clear, no scleral icterus Ears: normal gross auditory acuity Nose: symmetric, no discharge, no maxillary or frontal sinus tenderness Neck: no masses palpated, normal thyroid, no JVD or audible carotid bruits Heart: Normal rate and rhythm, no murmurs/rubs/gallops Lungs: no audible wheezes, crackles and normal breath sounds all lung weller Abdomen: Normal audible bowel sounds, no distension, No palpable masses, no organomegaly, no rebound/guarding/ or rigidity Musculoskeletal: no swelling bilateral lower extremities Neuro: CN II-X grossly intact Constitutional Vital Signs, click to edit/add: Last Vital Signs Temp 98.0 F 03/18/24 04:00 Pulse 81 03/18/24 08:00 Resp 18 03/18/24 07:53 BP 99/64 03/18/24 07:53 Pulse Ox 95 03/18/24 07:53 O2 Del Method Room Air 03/18/24 07:53 O2 Flow Rate 0.5 03/18/24 04:00 Progress Note: Objective Labs Labs: Short CBC 03/18/24 Range/Units 06:40 WBC 7.7 (4.0-11.0) 10^3/uL Hgb 14.7 (12.0-16.0) g/dL Hct 43.4 (36.0-48.0) % Plt Count 304 (150-450) 10^3/uL BMP 03/17/24 03/17/24 03/18/24 14:01 20:41 06:40 Sodium 125 L 124 L* 130 L Potassium 2.1 L* 3.3 L 2.9 L* Chloride 80 L* 84 L* 87 L Carbon Dioxide 44.4 H 36.4 H 40.7 H BUN 19.0 H 18.0 14.0 Creatinine 1.00 0.98 0.95 Glucose 158 H 122 H 134 H Calcium 8.6 8.7 9.0 Cardiac Enzymes 03/17/24 Range/Units 05:06 Total Creatine Kinase 82 (26-192) U/L Liver Function 03/18/24 Range/Units 06:40 Total Bilirubin 0.9 (0.2-1.0) mg/dL AST 26 (15-37) U/L ALT 25 (14-59) U/L Alkaline Phosphatase 90 (46-116) U/L Albumin 3.0 L (3.4-5.0) g/dL Progress Note: A&P Assessment and Plan (1) Syncope and collapse: Assessment and Plan: Caroid dopplers showed some plaque formation but < 50% stenosis and Echo is pending. She has many factors that can be contributing to this including electrolyte abnormalities, acute UTI, hypothyroidism, CELSA and now C Diff infection. Repeat CT head showed no acute bleeds or acute strokes. Will need Event or holter monitor at discharge. I have also ordered a Cardiology consult but we have no one doing consults until saturday. (2) Clostridial infection: Assessment and Plan: contact precautions, start Oral Vancomycin 125mg QID x 10 days (3) Hypokalemia: Assessment and Plan: replace IV and orally, hold diuretics for now. Diarrhea related, C Diff from GI losses (4) Hyponatremia: Assessment and Plan: improving on oral fluid restriction. was 130 today. FENA calculated at 0.2% Showing pre-renal cause, hypovolemia, or chronic heart failure. She is not fluid overloaded on exam. (5) CELSA (acute kidney injury): Assessment and Plan: Cr was normal 0.95. (6) Acute UTI: Assessment and Plan: awaiting urine culture but most likely from Cdiff infection. Continue rocephin for now, WBC's normal. (7) Hypochloremia: Assessment and Plan: improving on fluid restriction (8) Hyperlipidemia: Assessment and Plan: history of rhabdo, CK normal this admission. Will restart statin once patient's diarrhea has improved. Qualifiers: Hyperlipidemia type: unspecified Qualified Code(s): E78.5 - Hyperlipidemia, unspecified (9) Primary hypertension: Assessment and Plan: holding BP meds due to hypotension. (10) Hypothyroidism: Assessment and Plan: Normal TSH, continue levothyroxine Qualifiers: Hypothyroidism type: unspecified Qualified Code(s): E03.9 - Hypothyroidism, unspecified (11) Fibromyalgia: Assessment and Plan: Holding Cymbalta for now due to electrolyte disturbances Plan patient is a full code continue SCD's Patient is inpatient status and expected to stay 1-2 more days
[2024-03-18] MEDS: LEVOTHYROXINE SODIUM 112 MCG TABLET PO (09:30)
--- NOTE | 2024-03-18 10:00 | CM.NOTE ---
Rounds made with Dr. Lowery, discussed with pt about medication changes and orthostatic hypotension. Dr. Lowery continues to adjust medications and awaiting c-diff culture. No discharge today.
--- NOTE | 2024-03-18 11:35 | PT.DAILY ---
Physical Therapy Daily Note PT Daily Note/Assess Start: 03/18/24 11:30 Freq: Status: Active Protocol: Document 03/18/24 11:30 LUKE (Rec: 03/18/24 11:35 LUKE [id number]) Physical Therapy Daily Note/Assessment Time In/Time Out Time In 10:03 Time Out 10:20 Pain In Pain N/A Pain Out Pain N/A Subjective Subjective Pt is sitting in BS chair upon arrival. Just walked with OT to get to chair. Pt agrees to chair level and and will go from there. Therapeutic Exercise Time Therapeutic Exercise 5 Minutes (minutes) Therapeutic Exercise 0 Units Therapeutic Exercise Treatment Therapeutic Exercise Pt instructed to complete bilat LE strengthening ex 10x Treatment while sitting in BS chair. Therapeutic Activity Time Therapeutic Activity 7 Minutes (minutes) Therapeutic Activity 1 Units Therapeutic Activity Treatment Chair Transfer Contact Guard Assist,Minimum Assist Ability Therapeutic Activity Pt sit>stand 5x with static standing 1-1.5 min first 3 Comments standing attempts. Takes f-b stepping 3x with RW, CGA/ ELELN with last 2 standing attempts. Pt returned to BS chair upon completion with call light within reach and needs met. Total Physical Therapy Time Total Therapy 12 Minutes Total Physical 1 Therapy Units Summary Daily Note Summary Improved sit>stand transfer ability and static standing tolerance. Ellen with retro stepping.
[2024-03-18 11:58] LABS: C. Difficile PCR POSITIVE
[2024-03-18] MEDS: VANCOMYCIN HCL 7,500 MG/150 ML BOTTLE 125 MG PO ×3 (12:24→21:42)
[2024-03-18] MEDS: POTASSIUM CHLORIDE 10 MEQ ER TABLET 40 MEQ PO ×2 (13:06→21:42)
--- NOTE | 2024-03-18 13:46 | SWNOTE1 ---
MIRIAM spoke to Jacklyn at [facility] and family did not pay to hold the bed. Jacklyn voiced they do have some discharges tomorrow and Saturday so more than likely they will have a bed. MIRIAM to send updates.
--- NOTE | 2024-03-18 15:26 | SWNOTE1 ---
MIRIAM spoke with Arin from the [facility] and she also voiced they do have a bed for patient when she is ready for dc. MIRIAM sent updates to Arin and Ray at [facility].
[2024-03-19] VITALS (19 sets, daily range): BP systolic 110–118; BP diastolic 66–75; PULSE 79–96; TEMP 36.6–36.9; O2SAT 94–98
[2024-03-19] MEDS: POTASSIUM CHLORIDE 10 MEQ ER TABLET 40 MEQ PO ×3 (05:28→21:34)
[2024-03-19] MEDS: VANCOMYCIN HCL 7,500 MG/150 ML BOTTLE 125 MG PO ×4 (05:28→21:35)
[2024-03-19] MEDS: LEVOTHYROXINE SODIUM 112 MCG TABLET PO (05:30)
[2024-03-19 05:46] LABS: Basophils Percent Auto 0.5 % (0.2-2.0); Eosinophils Absolute Auto 0.2 10^3/uL (0.0-0.7); Eosinophils Percent Auto 2.8 % (0.9-7.0); Hematocrit 43.8 % (36.0-48.0); Hemoglobin 14.6 g/dL (12.0-16.0); Immature Granulocytes Abs Auto 0.03 10^3/uL (0.00-0.03); Immature Granulocytes Pct Auto 0.4 % (0.0-0.5); Lymphocytes Absolute Auto 1.8 10^3/uL (1.2-3.8); Lymphocytes Percent Auto 23.1 % (20.5-60.0); Mean Corpuscular HGB Conc 33.3 g/dL (29.9-35.2); Mean Corpuscular Hemoglobin 30.3 pg (26.7-34.0); Mean Corpuscular Volume 90.9 fL (81.0-99.0); Mean Platelet Volume 9.9 fL (9.5-13.5); Monocytes Percent Auto 12.5 % (1.7-12.0); Neutrophils Absolute Auto 4.6 10^3/uL (1.4-6.5); Neutrophils Percent Auto 60.7 % (43.0-75.0); Platelet Count 302 10^3/uL (150-450); Red Blood Count 4.82 10^6/uL (4.20-5.40); Red Cell Distribution Width 12.9 % (11.0-15.0); White Blood Count 7.6 10^3/uL (4.0-11.0)
[2024-03-19 05:57] LABS: Anion Gap 4.7; BUN Creatinine Ratio 15.2; Calcium 9.4 mg/dL (8.5-10.1); Carbon Dioxide 39.1 mmol/L (21.0-32.0); Chloride 93 mmol/L (98-107); Estimated GFR (African America >60 (>=60 mL/min/1.73m^2); Estimated GFR (Non-African Ame 51 (>=60 mL/min/1.73m^2); Glucose 122 mg/dL (74-106); Potassium 3.8 mmol/L (3.5-5.1); Sodium 133 mmol/L (136-145)
--- NOTE | 2024-03-19 08:26 | PM.PN ---
Progress Note: Subjective Subjective Interval history: Patient is sitting up in chair this morning. I observed her getting up with PT, still unsteady on her feet and with walker. She denies any issues or complaints. diarrhea has slowed down, discussed positive C diff. No fevers or chills. Still awaiting Echo results. Exam Narrative Exam Narrative: General: Patient is alert, and oriented to person, place and time with normal affect, proper hygiene Skin: some bruising under eyes residual from nasal fracture Eyes: PERRLA, no nystagmus present, conjunctiva clear, no scleral icterus Ears: normal gross auditory acuity Nose: symmetric, no discharge, no maxillary or frontal sinus tenderness Neck: no masses palpated, normal thyroid, no JVD or audible carotid bruits Heart: Normal rate and rhythm, no murmurs/rubs/gallops Lungs: no audible wheezes, crackles and normal breath sounds all lung weller Abdomen: Normal audible bowel sounds, no distension, No palpable masses, no organomegaly, no rebound/guarding/ or rigidity Musculoskeletal: no swelling bilateral lower extremities Neuro: CN II-X grossly intact Constitutional Vital Signs, click to edit/add: Last Vital Signs Temp 97.8 F 03/19/24 07:42 Pulse 88 03/19/24 08:00 Resp 18 03/19/24 07:49 BP 111/71 03/19/24 07:42 Pulse Ox 96 03/19/24 07:42 O2 Del Method Room Air 03/19/24 07:42 O2 Flow Rate 0.5 03/18/24 04:00 Progress Note: Objective Labs Labs: Short CBC 03/19/24 Range/Units 05:14 WBC 7.6 (4.0-11.0) 10^3/uL Hgb 14.6 (12.0-16.0) g/dL Hct 43.8 (36.0-48.0) % Plt Count 302 (150-450) 10^3/uL BMP 03/19/24 05:14 Sodium 133 L Potassium 3.8 Chloride 93 L Carbon Dioxide 39.1 H BUN 16.0 Creatinine 1.05 H Glucose 122 H Calcium 9.4 Progress Note: A&P Assessment and Plan (1) Syncope and collapse: Assessment and Plan: Caroid dopplers showed some plaque formation but < 50% stenosis and Echo is pending. She has many factors that can be contributing to this. Repeat CT head showed no acute bleeds or acute strokes. Will need Event or holter monitor at discharge. (2) Clostridial infection: Assessment and Plan: contact precautions, start Oral Vancomycin 125mg QID x 10 days (3) Hypokalemia: Assessment and Plan: replace orally, hold diuretics for now. Diarrhea related, C Diff from GI losses; up to 3.8 today (4) Hyponatremia: Assessment and Plan: improving on oral fluid restriction. was 133 today. FENA calculated at 0.2% Showing pre-renal cause, hypovolemia, or chronic heart failure. She is not fluid overloaded on exam (5) CELSA (acute kidney injury): Assessment and Plan: Cr to baseline at 1.05 (6) Acute UTI: Assessment and Plan: due to Ecoli, Continue rocephin for now, WBC's normal. total of 3 days of rocephin. I may consider very short treatment at discharge given acute C Diff infection and the risks outweigh the benefits of oral treatment for this. Keflex 500mg BID x 5 more days. (7) Hypochloremia: Assessment and Plan: improving on fluid restriction (8) Hyperlipidemia: Assessment and Plan: Will restart statin Qualifiers: Hyperlipidemia type: unspecified Qualified Code(s): E78.5 - Hyperlipidemia, unspecified (9) Primary hypertension: Assessment and Plan: holding BP meds due to hypotension. (10) Hypothyroidism: Assessment and Plan: Normal TSH, continue levothyroxine Qualifiers: Hypothyroidism type: unspecified Qualified Code(s): E03.9 - Hypothyroidism, unspecified (11) Fibromyalgia: Assessment and Plan: Holding Cymbalta for now due to electrolyte disturbances Plan patient is a full code continue SCD's awaiting echo results, otherwise medically stable for inpatient rehab once approved. Will need Holter/event monitor and follow up with Cardiology at discharge.
--- NOTE | 2024-03-19 09:53 | SWNOTE1 ---
SW had message from nurse and daughter wants pt to go to [facility]. SW called and left voicemail for admissions at [facility] to see if they have opening, waiting to hear back.
--- NOTE | 2024-03-19 09:54 | SWNOTE1 ---
SW called daughter. She did voice she was surprised pt was being discharged. MIRIAM did review with her the facilities in [place] and surrounding area. She would like [facility] and [facility] as last choice.
--- NOTE | 2024-03-19 10:45 | SWNOTE1 ---
MIRIAM spoke to Yanely at [facility] and she will review, but only 2 pages went through on fax. MIRIAM sent to her email securely.
--- NOTE | 2024-03-19 11:50 | CM.NOTE ---
Rounds made with Dr. Lowery. Potential plan for discharge to [facility].
--- NOTE | 2024-03-19 12:49 | REH.PTDLY ---
Physical Therapy Daily Note PT Daily Note/Assess Start: 03/18/24 11:30 Freq: Status: Active Protocol: Document 03/19/24 11:05 [email or web address] ([facility]24 12[id number] Physical Therapy Daily Note/Assessment Time In 10:44 Time Out 11:05 Subjective Pt up in chair upon arrival, states she is feeling better today. Denies any dizziness sitting in chair. Therapeutic Exercise 7 Minutes (minutes) Therapeutic Exercise 0 Units Therapeutic Exercise Instructed in B LE seated exs 12-15x ea with cues and Treatment demo. Exs included AP, LAQ, marching, hip add squeeze and hip abd step outs Therapeutic Activity 11 Minutes (minutes) Therapeutic Activity 1 Units Therapeutic Activity Sit to stand transfers 2x with cues for hand placement Comments for safety. Pt needs Min A to stand from chair. Pt denies dizziness upon standing. Gait training with RW CGA and occasional Min A to turn RW, with pt ambulating 15 feet around bed and sits on side of bed to rest. Pt reports a bit of a head alejandre upon sitting down. Pt took brief rest break and then ambulated another 15 feet back around bed CGA-Min A and pt denying any increase in dizziness. Pt ambulates at slower pace and is easily fatigued. Total Therapy 18 Minutes Total Physical 1 Therapy Units Daily Note Summary Progressed gait distance today with pt denying any dizziness once standing and ambulating. Does have some when returning to sit. Pt will need SNF stay as she needs assistance with transfers and gait for safety. Pt easily becomes fatigued as well with gait.
--- NOTE | 2024-03-19 12:50 | SWNOTE1 ---
MIRIAM called Yanely at [facility] and she did not receive, SW confirmed email, but it was not right as there was an extra S added. SW sent to the correct email and they will review and let SW know rut.
--- NOTE | 2024-03-19 15:08 | SWNOTE1 ---
MIRIAM spoke to Yanely at [facility] and she had a few questions, MIRIAM answered questions and she will report back to her clinical team and call MIRIAM back once she has an answer.
--- NOTE | 2024-03-19 16:14 | OT.DAILY ---
Occupational Therapy Daily Note OT Inpatient Daily Visit Note Start: 03/17/24 10:08 Freq: Status: Active Protocol: Document 03/19/24 16:06 [id number] (Rec: 03/19/24 16:14 [id number]) OT Visit Details Time In/Time Out Time In 03:30 Time Out 04:04 OT Treatment Plan Subjective Subjective Pt sitting up in bed doing well, maintaining O2 on RA. Reports body aches and generalized weakness. Objective Objective Pt agreeable to self-care tasks while sitting up in bed . Min A UB bathing due to frequent fatigue. Min A LB bathing at ankles/feet. Hair hygiene completed I, combed correctly. Able to maintain seated balance and posture reaching outside RAYMUNDO. Pt required assist to open bottle of lotion, poor hand strength. With set-up Pt applied anti-perspirant, no complications twisting the opening. Pt reports she feels better after completing tasks. Pt reports that she is generally feeling unsteady when seated on EOB and ambulating with walker. Assessment Assessment Pt tolerated treatment well. Agreeable and cooperative with all tasks. She is comfortable returning to SNF. Continue OT POC. OT [place] Timed Codes Self-Jail 34 Management minutes ( minutes) Self-Jail 2 Management units
--- NOTE | 2024-03-19 16:29 | SWNOTE1 ---
MIRIAM spoke to Yanely at [facility] and they are good to accept. MIRIAM asked if pt medically stable for discharge today can she come tonight? June stated no as they do not have the staff. MIRIAM to let doctor know. MIRIAM let Dr. Lowery know. Pt's Echo has not been read at this time either.
--- NOTE | 2024-03-19 16:31 | SWNOTE1 ---
SW called and updated daughter.
--- NOTE | 2024-03-19 19:43 | PC.NURSE ---
urine mixed with soft stool
[2024-03-20] VITALS (9 sets, daily range): BP systolic 112–128; BP diastolic 64–77; PULSE 85–97; TEMP 36.2–36.6; O2SAT 92–95
--- NOTE | 2024-03-20 03:27 | PC.NURSE ---
soft stool mixed with urine
[2024-03-20 05:43] LABS: Basophils Percent Auto 0.4 % (0.2-2.0); Eosinophils Absolute Auto 0.2 10^3/uL (0.0-0.7); Eosinophils Percent Auto 2.1 % (0.9-7.0); Hematocrit 44.7 % (36.0-48.0); Hemoglobin 14.6 g/dL (12.0-16.0); Immature Granulocytes Abs Auto 0.04 10^3/uL (0.00-0.03); Immature Granulocytes Pct Auto 0.4 % (0.0-0.5); Lymphocytes Absolute Auto 1.5 10^3/uL (1.2-3.8); Lymphocytes Percent Auto 14.9 % (20.5-60.0); Mean Corpuscular HGB Conc 32.7 g/dL (29.9-35.2); Mean Corpuscular Hemoglobin 30.3 pg (26.7-34.0); Mean Corpuscular Volume 92.7 fL (81.0-99.0); Mean Platelet Volume 9.7 fL (9.5-13.5); Monocytes Percent Auto 9.3 % (1.7-12.0); Neutrophils Absolute Auto 7.4 10^3/uL (1.4-6.5); Neutrophils Percent Auto 72.9 % (43.0-75.0); Platelet Count 291 10^3/uL (150-450); Red Blood Count 4.82 10^6/uL (4.20-5.40); Red Cell Distribution Width 13.2 % (11.0-15.0); White Blood Count 10.2 10^3/uL (4.0-11.0)
[2024-03-20 05:58] LABS: Anion Gap 5.5; BUN Creatinine Ratio 15.9; Calcium 9.6 mg/dL (8.5-10.1); Carbon Dioxide 35.2 mmol/L (21.0-32.0); Chloride 98 mmol/L (98-107); Estimated GFR (African America 57 (>=60 mL/min/1.73m^2); Estimated GFR (Non-African Ame 47 (>=60 mL/min/1.73m^2); Glucose 130 mg/dL (74-106); Potassium 4.7 mmol/L (3.5-5.1); Sodium 134 mmol/L (136-145)
[2024-03-20] MEDS: VANCOMYCIN HCL 7,500 MG/150 ML BOTTLE 125 MG PO ×2 (06:54→12:23)
[2024-03-20] MEDS: LEVOTHYROXINE SODIUM 112 MCG TABLET PO (06:55)
[2024-03-20] MEDS: POTASSIUM CHLORIDE 10 MEQ ER TABLET 40 MEQ PO (06:55)
--- NOTE | 2024-03-20 09:28 | CM.NOTE ---
2nd Notice of Important Message From Medicare discussed with pt, pt denies any questions or concerns.
--- NOTE | 2024-03-20 10:30 | CM.NOTE ---
Rounds made with Dr. Foley, pt will discharge today to [facility] for skilled therapy.
--- NOTE | 2024-03-20 11:24 | PT.DAILY ---
Physical Therapy Daily Note PT Daily Note/Assess Start: 03/18/24 11:30 Freq: Status: Active Protocol: Document 03/20/24 11:18 LUKE (Rec: 03/20/24 11:24 [id number]) Physical Therapy Daily Note/Assessment Time In/Time Out Time In 11:02 Time Out 11:15 Pain In Pain N/A Pain Out Pain N/A Subjective Subjective Pt sitting in BS chair upon arrival. Agrees to PT. Planned dc to SNF sometime today. Therapeutic Exercise Time Therapeutic Exercise 3 Minutes (minutes) Therapeutic Exercise 0 Units Therapeutic Exercise Treatment Therapeutic Exercise Seated bilat LE strengthening ex complete in BS chair Treatment 10x ea to improve functional mobility prior to gait and transfers. Therapeutic Activity Time Therapeutic Activity 8 Minutes (minutes) Therapeutic Activity 1 Units Therapeutic Activity Treatment Chair Transfer Contact Guard Assist Ability Therapeutic Activity Sit>stand 5x from BS chair with focus on pushing from Comments arm rest vs pulling RW. Pt then amb 10' with CGA using RW - very short step length noticed with increased time required. Sits EOB for seated rest break. Sit>stand from EOB CGA and amb 10' back to BS chair. Pt remains in BS chair upon completion with call light within reach. Total Physical Therapy Time Total Therapy 11 Minutes Total Physical 1 Therapy Units Summary Daily Note Summary Improved gait and transfer ability on this date.
--- NOTE | 2024-03-20 12:26 | SWNOTE1 ---
Pt is stable for discharge today to [facility]. MIRIAM spoke to daughter and she is in agreement. She would like transport set up. MIRIAM called trips and they will be here between 1:45-2:15. MIRIAM notified daughter, [facility], and nurse of time. MIRIAM took packet to the floor. Pt is going skilled to [facility]. MIRIAM emailed and faxed [place] med rec to June at [facility]. MIRIAM completed HENS online.
--- NOTE | 2024-03-20 13:49 | P.DS_ITS ---
DS: Providers Provider Date of admission: 03/16/24 22:49 Primary care physician: Warren Gallo DO Consults: 03/17/24 09:05 Occupational Therapy Eval and Treat Routine Reason for consultation: syncope with collapse Has provider been notified: No Physical Therapy Eval and Treat Routine Reason for consultation: syncope with collapse Has provider been notified: No 03/18/24 11:14 Consult to Cardiology Routine Reason for consultation: syncope with collapse, orthostatic hypotension Has provider been notified: No DS: Diagnosis Discharge Diagnosis (1) Syncope and collapse: (2) Clostridial infection: (3) Hyponatremia: (4) Hypokalemia: (5) Acute UTI: (6) CELSA (acute kidney injury): (7) Primary hypertension: (8) Subarachnoid hemorrhage: DS: Summary Hospital Course Hospital Course: Reason for admission: See ER note and H&P for details. Patient fell at SNF and c/o dizziness. Fell 03/03 and developed subarachnoid hemorrhage and nasal fracture. Admitted at [facility] then sent to SNF. Not doing well at SNF and c/o dizziness and weakness. To ER and labs showed abnormal electrolytes. UA with UTI and admitted. Hospital course: Started rocephin for UTI. Replaced electrolytes and started PT. Resumed home medication. Continued to have diarrhea and C. diff positive. Started oral vancomycin. Improved and BP stable. Working with PT for weakness. Not as lightheaded or dizzy. Carotid doppler without significant stenosis. Echo pending. Transferred to SNF in stable condition. Will take oral vanco and keflex x 8 days. Resume home medication as directed. Time Spent with Patient Time attestation: Total time spent providing and/or coordinating discharge services: Time spent: greater than 30 minutes Exam Constitutional Vital Signs, click to edit/add: Last Vital Signs Temp 97.1 F L 03/20/24 08:00 Pulse 94 H 03/20/24 11:57 Resp 18 03/20/24 08:00 BP 128/65 03/20/24 08:00 Pulse Ox 95 03/20/24 11:17 O2 Del Method Room Air 03/20/24 11:17 O2 Flow Rate 0.5 03/18/24 04:00 Documenting provider has reviewed patient's vital signs: yes Common normals: no apparent distress, oriented x3 and alert HENMT Common normals: normocephalic Eye Common normals: PERRL and EOMs intact bilaterally Respiratory Common normals: normal respiratory effort and clear to auscultation bilaterally Cardio Common normals: regular rate, regular rhythm, no gallops, no murmurs and no rub GI Common normals: Normal to inspection, nondistended, normoactive bowel sounds present and non-tender Extremity Common normals: no pedal edema DS: Data Data Completed and Pending Labs on day of discharge: Labs from last 24 hours 03/20/24 05:18 WBC 10.2 RBC 4.82 Hgb 14.6 Hct 44.7 MCV 92.7 MCH 30.3 MCHC 32.7 RDW 13.2 Plt Count 291 MPV 9.7 Neut % (Auto) 72.9 Lymph % (Auto) 14.9 L [place] % (Auto) 9.3 Eos % (Auto) 2.1 Baso % (Auto) 0.4 Neut # (Auto) 7.4 H Lymph # (Auto) 1.5 [place] # (Auto) 1.0 H Eos # (Auto) 0.2 Baso # (Auto) 0.0 Abs Immat Gran (auto) 0.04 H Imm/Tot Granulo (auto) 0.4 Sodium 134 L Potassium 4.7 Chloride 98 Carbon Dioxide 35.2 H Anion Gap 5.5 BUN 18.0 Creatinine 1.13 H Est GFR ( Amer) 57 L Est GFR (Non-Af Amer) 47 L BUN/Creatinine Ratio 15.9 Glucose 130 H Calcium 9.6 Discharge Plan Discharge Disposition: er SNF Condition: Fair Discharge Medications: New vancomycin [Firvanq] 50 mg/mL Recon Soln 125 mg PO QID 8 Days Qty: 80 0RF cephalexin 500 mg capsule 500 mg PO QID 7 Days Qty: 28 0RF Continued alendronate 70 mg tablet 70 mg PO .QWEEKLY Patient Comments: saturdays only carvedilol 6.25 mg tablet 3.125 mg PO Q12H duloxetine 60 mg capsule,delayed release(DR/EC) 60 mg PO DAILY indapamide 1.25 mg tablet 1.25 mg PO DAILY levothyroxine 112 mcg tablet 112 mcg PO DAILY montelukast 10 mg tablet 10 mg PO DAILY potassium chloride 20 mEq tablet extended release 20 meq PO Q12H rosuvastatin 20 mg tablet 20 mg PO DAILY acetaminophen 500 mg capsule 500 mg PO Q6H PRN (Reason: fever or pain) furosemide 40 mg tablet 40 mg PO Q12H aspirin 81 mg capsule 81 mg PO DAILY albuterol sulfate 90 mcg/actuation HFA aerosol inhaler 1 puff INHALATION Q6H PRN (Reason: shortness of breath or wheezing) Print Language: Uzbek Aerodynamic Consultant/Radio Program Director Instructions: Discharge to [facility] skilled. Forms: Portal Instructions Follow Up Appointments: Please call Dr. Greenwood (cardiology) to schedule a follow up appt. [phone]
[2024-03-22 01:06] LABS: Osmolality, Urine 371 mOsmol/kg (.)
== END 2024-03-20 14:25 | DRG 641 ==
LOC: ER 21:31 → MS 03-20 08:55
PROVIDERS: Nurse Practitioner Family; Registered Nurse; Admitting Provider Family Medicine; Emergency Provider Emergency Medicine; PCP Family Medicine; Visit Provider Family Medicine
DX: E87.6 Hypokalemia (principal); N39.0 Urinary tract infection, site not specified; N17.9 Acute kidney failure, unspecified; A04.72 Enterocolitis due to Clostridium difficile, not specified as recurrent; E87.8 Other disorders of electrolyte and fluid balance, not elsewhere classified; Z91.81 History of falling; E87.1 Hypo-osmolality and hyponatremia; I10 Essential (primary) hypertension; E03.9 Hypothyroidism, unspecified; M81.0 Age-related osteoporosis without current pathological fracture; I25.10 Atherosclerotic heart disease of native coronary artery without angina pectoris; E78.5 Hyperlipidemia, unspecified; C50.911 Malignant neoplasm of unspecified site of right female breast; M79.7 Fibromyalgia; Z96.642 Presence of left artificial hip joint; Z87.891 Personal history of nicotine dependence; Z79.890 Hormone replacement therapy; Z79.82 Long term (current) use of aspirin; S02.2XXD Fracture of nasal bones, subsequent encounter for fracture with routine healing; W19.XXXD Unspecified fall, subsequent encounter; B96.20 Unspecified Escherichia coli [E. coli] as the cause of diseases classified elsewhere; I95.1 Orthostatic hypotension; Z87.898 Personal history of other specified conditions
CPT/HCPCS: 36415; 70450; 71045; 80048; 80053; 80061; 81001; 82550; 82570; 83735; 83880; 83935; 84300; 84443; 85025; 87045; 87046; 87086; 87150; 87186; 87427; 87493; 93005; 93306; 93880; 94761; 96365; 97165; 97530; 97535; 99285; J0696; J3480

== ENCOUNTER 2024-06-03 12:50 | Outpatient (OUT) | payer MEDICARE, SELFPAY ==
--- NOTE | 2024-06-03 13:06 | MM_ITS ---
Patient Name: GURJIT CAMARA MR#: [id number] : 1945 Exam Date: 06/03/2024 Ordering Doctor: DR Ruth Ann Isaac TEAM SUPERVISOR RADIOLOGY REPORT PROCEDURE: MM TOMOSYNTHESIS SCREENING BI COMPARISON: MM TOMOSYNTHESIS SCREENING BI, 04/11/2023. MG MAMM SCREEN 3D DA CAD, 04/03/2022. MG MAMM DIAGNOSTIC 3D DA CAD, 03/28/2021. MG MAMM DA SCRN W CAD DIG, 10/20/2010. INDICATIONS: Screening Calculator Name NCI Breast Cancer Risk Assessment Tool 5 Year Breast Cancer Risk n/a% Lifetime Breast Cancer Risk n/a% Personal Breast Cancer Yes, 69 Personal Ovarian Cancer No Treatments radiation and chemotherapy Family Cancers None LOCATION: [facility] BREAST COMPOSITION: The breasts are almost entirely fatty. FINDINGS: DIAGNOSTIC CATEGORY 1--NEGATIVE. LEFT BREAST: No significant suspicious finding. RIGHT BREAST: No significant suspicious finding. RECOMMENDATIONS: ROUTINE MAMMOGRAM AND CLINICAL EVALUATION IN 12 MONTHS. PLEASE NOTE: A NORMAL MAMMOGRAM DOES NOT EXCLUDE THE POSSIBILITY OF BREAST CANCER. A CLINICALLY SUSPICIOUS PALPABLE LUMP SHOULD BE BIOPSIED. Dictated by: Judd Gonzalez DO on 06/03/2024 at 16:02 Approved by: Judd Gonzalez DO on 06/03/2024 at 16:04
[2024-06-03 13:47] LABS: Basophils Percent Auto 0.6 % (0.2-2.0); Eosinophils Absolute Auto 0.2 10^3/uL (0.0-0.7); Eosinophils Percent Auto 2.3 % (0.9-7.0); Hematocrit 44.5 % (36.0-48.0); Hemoglobin 14.8 g/dL (12.0-16.0); Immature Granulocytes Abs Auto 0.01 10^3/uL (0.00-0.03); Immature Granulocytes Pct Auto 0.2 % (0.0-0.5); Lymphocytes Absolute Auto 1.7 10^3/uL (1.2-3.8); Mean Corpuscular HGB Conc 33.3 g/dL (29.9-35.2); Mean Corpuscular Hemoglobin 30.1 pg (26.7-34.0); Mean Corpuscular Volume 90.4 fL (81.0-99.0); Mean Platelet Volume 10.1 fL (9.5-13.5); Monocytes Absolute Auto 0.9 10^3/uL (0.3-0.8); Monocytes Percent Auto 13.5 % (1.7-12.0); Neutrophils Absolute Auto 3.7 10^3/uL (1.4-6.5); Neutrophils Percent Auto 57.4 % (43.0-75.0); Platelet Count 269 10^3/uL (150-450); Red Blood Count 4.92 10^6/uL (4.20-5.40); Red Cell Distribution Width 13.3 % (11.0-15.0); White Blood Count 6.5 10^3/uL (4.0-11.0)
[2024-06-03 15:04] LABS: Alanine Aminotransferase 15 U/L (14-59); Albumin Globulin Ratio 1.1; Albumin Level 3.7 g/dL (3.4-5.0); Alkaline Phosphatase 93 U/L (46-116); Aspartate Amino Transferase 21 U/L (15-37); Bilirubin Total 0.9 mg/dL (0.2-1.0); Calcium 9.2 mg/dL (8.5-10.1); Carbon Dioxide 36.6 mmol/L (21.0-32.0); Chloride 96 mmol/L (98-107); Estimated GFR (African America 57 (>=60 mL/min/1.73m^2); Estimated GFR (Non-African Ame 47 (>=60 mL/min/1.73m^2); Globulin 3.4 g/dL; Glucose 75 mg/dL (74-106); Sodium 140 mmol/L (136-145); Total Protein 7.1 g/dL (6.4-8.2)
[2024-06-03 15:16] LABS: Potassium 2.6 mmol/L (3.5-5.1)
== END 2024-06-03 12:51 | disposition home or self-care (01) ==
LOC: MAMMO 12:52
PROVIDERS: PCP Family Medicine; Visit Provider Physician Assistant Medical
DX: Z12.31 Encounter for screening mammogram for malignant neoplasm of breast (principal); E66.01 Morbid (severe) obesity due to excess calories; C50.311 Malignant neoplasm of lower-inner quadrant of right female breast; Z17.0 Estrogen receptor positive status [ER+]; M85.80 Other specified disorders of bone density and structure, unspecified site
CPT/HCPCS: 36415; 77063; 77067; 80053; 85025

== ENCOUNTER 2024-06-03 16:01 | Observation (INO) | payer MEDICARE, SELFPAY ==
[2024-06-03 16:09] VITALS: BP 110/74; PULSE 96; TEMP 36.8; O2SAT 94
--- NOTE | 2024-06-03 16:24 | ECG_ITS ---
[facility] Test Date: 2024-06-03 Pat Name: GURJIT CAMARA Department: Room: - Gender: Female Clinical Reimbursement Specialist: : 1945 Requested By: [id number] Order Number: [id number] Reading MD: BUCK MARI M.D. Measurements Intervals [place] Rate: 90 P: 63 WV: 136 QRS: -47 QRSD: 98 T: 72 QT: 402 QTc: 449 Interpretive Statements 1100 Sinus rhythm 2440 Incomplete right bundle branch block 4068 Nonspecific Twave abnormality 7200 Abnormal left axis deviation 9130 borderline ECG Compared to ECG 03/16/2024 18:29:21 Premature ventricular complexes are no longer seen Electronically Signed On 06-03-2024 17:31:27 EDT by BUCK MARI M.D.
--- NOTE | 2024-06-03 16:25 | ED_ITS ---
HPI HPI - General Adult General Chief complaint: Recheck/Abnormal Lab/Rx Stated complaint: low potassium levels Time Seen by Provider: 06/03/24 16:04 Source: patient Mode of arrival: walk-in History of Present Illness HPI narrative: Patient is a 78-year-old female with a history of chronic kidney disease who presents to the emergency department for evaluation of critically low potassium that was noted on a blood draw today. She states she was having routine outpatient labs and her primary care office called her. She has had ongoing issues with low potassium since March. She states ibuprofen caused her c hronic kidney disease. She does also take Lasix. Her granddaughter at bedside states that the patient has been adjusted on multiple different medications and oral potassium, her physician determined that her Lasix was not the cause of her low potassium and no explanation has been found. She currently takes potassium supplementation. She has no significant focal medical complaints today although she states she felt slightly lightheaded. She has no chest pain or shortness of breath. No upper respiratory illness. She has chronic pain to the shoulders and knees that she attributes to arthritis. Related Data Home Medications ?Medication ?Instructions ?Recorded ?Confirmed acetaminophen 500 mg capsule 500 mg PO Q6H PRN fever or pain 03/03/24 06/03/24 carvedilol 6.25 mg tablet 3.125 mg PO Q12H 03/03/24 06/03/24 duloxetine 60 mg capsule,delayed 60 mg PO DAILY 03/03/24 06/03/24 release indapamide 1.25 mg tablet 1.25 mg PO DAILY 03/03/24 06/03/24 levothyroxine 112 mcg tablet 112 mcg PO DAILY 03/03/24 06/03/24 montelukast 10 mg tablet 10 mg PO DAILY 03/03/24 06/03/24 potassium chloride 20 mEq 20 meq PO Q12H 03/03/24 06/03/24 tablet,extended release rosuvastatin 20 mg tablet 20 mg PO DAILY 03/03/24 06/03/24 aspirin 81 mg capsule 81 mg PO DAILY 03/16/24 06/03/24 furosemide 40 mg tablet 40 mg PO Q12H edema 03/16/24 06/03/24 albuterol sulfate 90 mcg/actuation 1 puff inhalation Q6H PRN 03/17/24 06/03/24 aerosol inhaler shortness of breath or wheezing Allergies Allergy/AdvReac Type Severity Reaction Status Date / Time pregabalin (From Lyrica) Allergy Severe Confusion Verified 06/03/24 16:08 ibuprofen Allergy CKD Verified 06/03/24 16:08 Opioid HPI Opioid Management Most Recent Opioid Data: Last Pain Scale 6 03/03/24 12:33 03/03/24 Last ORT Total Score 0 03/16/24 22:53 03/16/24 Last ORT Risk Category Low Risk 03/16/24 22:53 03/16/24 Review of Systems ROS Constitutional Denies: fever or chills Ears, nose, mouth, and throat Denies: throat pain or nasal congestion Cardiovascular Reports: lightheadedness; Denies: chest pain Respiratory Denies: shortness of breath Gastrointestinal Denies: nausea or vomiting Integumentary/Breast Denies: rash Neurological Denies: numbness in extremities or weakness in extremities Hematologic/Lymphatic Denies: easy bruising or easy bleeding PFSH PFSH Medical History (Updated 06/03/24 @ 17:23 by LOBO Lewis) Hyponatremia ?E87.1 - Hypo-osmolality and hyponatremia (ICD-10) Primary hypertension ?I10 - Essential (primary) hypertension (ICD-10) Hypokalemia ?E87.6 - Hypokalemia (ICD-10) Hypochloremia ?E87.8 - Other disorders of electrolyte and fluid balance, not elsewhere classified (ICD-10) Diarrhea ?R19.7 - Diarrhea, unspecified (ICD-10) Fracture, nasal ?S02.2XXA - Fracture of nasal bones, initial encounter for closed fracture (ICD-10) Rhabdomyolysis ?M62.82 - Rhabdomyolysis (ICD-10) Syncope ?R55 - Syncope and collapse (ICD-10) Hyperlipidemia ?E78.5 - Hyperlipidemia, unspecified (ICD-10) Malignant neoplasm of right breast ?C50.911 - Malignant neoplasm of unspecified site of right female breast (ICD-10) Hypothyroidism ?E03.9 - Hypothyroidism, unspecified (ICD-10) Fibromyalgia ?M79.7 - Fibromyalgia (ICD-10) Surgical History Presence of left artificial hip joint ?Z96.642 - Presence of left artificial hip joint (ICD-10) Social History Within the past year, how often did you have a drink containing alcohol: never Score interpretation: A score less than 3 is consistent with normal alcohol consumption. Smoking status: Former smoker Non-prescribed substance use: denies use Previous occupational history: retired Little interest or pleasure in doing things: not at all Feeling down, depressed, or hopeless: not at all Feel stressed/tense/nervous/anxious/difficulty sleeping: not at all Do you think of yourself as: straight/heterosexual Gender Identity: female Exam Narrative Exam Narrative: Gen.: Awake, alert, in no distress Head: Normocephalic, atraumatic ENT: Moist mucous membranes Respiratory: No respiratory distress, lungs clear bilaterally Cardio: Regular rate and rhythm Gastrointestinal: Abdomen is soft, nondistended and nontender to palpation Extremities: Moves extremities equally Psych: Normal mood and affect Neuro: No focal neuro deficit Skin: Warm, dry, intact Constitutional Vital Signs, click to edit/add: Last Vital Signs Temp 98.2 F 06/03/24 16:09 Pulse 96 H 06/03/24 16:09 Resp 18 06/03/24 16:09 BP 110/74 06/03/24 16:09 Pulse Ox 94 L 06/03/24 16:09 O2 Del Method Room Air 06/03/24 16:09 Course Vital Signs Vital signs: Vital Signs Temperature 98.2 F 06/03/24 16:09 Pulse Rate 96 H 06/03/24 16:09 Respiratory Rate 18 06/03/24 16:09 Blood Pressure 110/74 06/03/24 16:09 Pulse Oximetry 94 L 06/03/24 16:09 Oxygen Delivery Method Room Air 06/03/24 16:09 Temperature 98.2 F 06/03/24 16:09 Pulse Rate 96 H 06/03/24 16:09 Respiratory Rate 18 06/03/24 16:09 Blood Pressure 110/74 06/03/24 16:09 Pulse Oximetry 94 L 06/03/24 16:09 Oxygen Delivery Method Room Air 06/03/24 16:09 Medical Decision Making MDM Narrative Medical decision making narrative: Labs, EKG and chest x-ray were obtained due to the patient's lightheadedness and critical potassium from earlier today. On recheck, the potassium is 2.2. Patient has no EKG changes or complaints of shortness of breath or chest pain. 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 We went over the patient's medications, she is currently prescribed indapamide, furosemide and potassium supplementation. He recommended stopping the indapamide and switching her to spironolactone 25 mg daily. He recommended with a potassium of 2.2 that the patient be admitted for observation. Oral and IV potassium were initiated for the patient and she is admitted to the hospitalist service with telemetry overnight for observation. She is stable at this time. SUPERVISED APC VISIT, PHYSICIAN ATTESTATION: Based on the medical record the care appears appropriate. ? Medical Records Medical records reviewed: Yes I reviewed the patient's medical records Lab Data Lab results reviewed: Yes I reviewed the patient's lab results Labs: Lab Results 06/03/24 Range/Units 16:30 WBC 6.7 (4.0-11.0) 10^3/uL RBC 4.65 (4.20-5.40) 10^6/uL Hgb 14.1 (12.0-16.0) g/dL Hct 42.0 (36.0-48.0) % MCV 90.3 (81.0-99.0) fL MCH 30.3 (26.7-34.0) pg MCHC 33.6 (29.9-35.2) g/dL RDW 13.3 (11.0-15.0) % Plt Count 255 (150-450) 10^3/uL MPV 10.4 (9.5-13.5) fL Neut % (Auto) 65.0 (43.0-75.0) % Lymph % (Auto) 22.7 (20.5-60.0) % Mitchell % (Auto) 9.2 (1.7-12.0) % Eos % (Auto) 2.4 (0.9-7.0) % Baso % (Auto) 0.6 (0.2-2.0) % Neut # (Auto) 4.4 (1.4-6.5) 10^3/uL Lymph # (Auto) 1.5 (1.2-3.8) 10^3/uL Mitchell # (Auto) 0.6 (0.3-0.8) 10^3/uL Eos # (Auto) 0.2 (0.0-0.7) 10^3/uL Baso # (Auto) 0.0 (0.0-0.1) 10^3/uL Abs Immat Gran (auto) 0.01 (0.00-0.03) 10^3/uL Imm/Tot Granulo (auto) 0.1 (0.0-0.5) % Sodium 137 (136-145) mmol/L Potassium 2.2 L* (3.5-5.1) mmol/L Chloride 96 L (98-107) mmol/L Carbon Dioxide 35.7 H (21.0-32.0) mmol/L Anion Gap 7.5 BUN 17.0 (7.0-18.0) mg/dL Creatinine 1.32 H (0.55-1.02) mg/dL Est GFR ( Amer) 47 L (>=60 mL/min/1.73m^2) Est GFR (Non-Af Amer) 39 L (>=60 mL/min/1.73m^2) BUN/Creatinine Ratio 12.9 Glucose 156 H (74-106) mg/dL Calcium 9.1 (8.5-10.1) mg/dL Magnesium 2.1 (1.8-2.4) mg/dL Total Bilirubin 0.8 (0.2-1.0) mg/dL AST 19 (15-37) U/L ALT 18 (14-59) U/L Alkaline Phosphatase 90 (46-116) U/L Troponin I High Sens 10.4 (4.0-51.3) pg/mL Total Protein 6.6 (6.4-8.2) g/dL Albumin 3.3 L (3.4-5.0) g/dL Globulin 3.3 g/dL Albumin/Globulin Ratio 1.0 Imaging Data Chest x-ray: Attestation: I have reviewed the pertinent imaging results. ECG Data Attestation: I personally reviewed and interpreted this ECG as follows: (Sinus rhythm at a rate of 90 with an incomplete right bundle branch block, no acute ST elevation or ectopy. Artifact noted. EKG reviewed by attending physician) Discharge Plan Discharge Chief Complaint: Recheck/Abnormal Lab/Rx Clinical Impression: Acute hypokalemia, Chronic kidney disease Patient Disposition: Admitted as Observation Time of Disposition Decision: 17:23 Condition: Good
[2024-06-03 16:43] LABS: Basophils Percent Auto 0.6 % (0.2-2.0); Eosinophils Absolute Auto 0.2 10^3/uL (0.0-0.7); Eosinophils Percent Auto 2.4 % (0.9-7.0); Hemoglobin 14.1 g/dL (12.0-16.0); Immature Granulocytes Abs Auto 0.01 10^3/uL (0.00-0.03); Immature Granulocytes Pct Auto 0.1 % (0.0-0.5); Lymphocytes Absolute Auto 1.5 10^3/uL (1.2-3.8); Lymphocytes Percent Auto 22.7 % (20.5-60.0); Mean Corpuscular HGB Conc 33.6 g/dL (29.9-35.2); Mean Corpuscular Hemoglobin 30.3 pg (26.7-34.0); Mean Corpuscular Volume 90.3 fL (81.0-99.0); Mean Platelet Volume 10.4 fL (9.5-13.5); Monocytes Absolute Auto 0.6 10^3/uL (0.3-0.8); Monocytes Percent Auto 9.2 % (1.7-12.0); Neutrophils Absolute Auto 4.4 10^3/uL (1.4-6.5); Platelet Count 255 10^3/uL (150-450); Red Blood Count 4.65 10^6/uL (4.20-5.40); Red Cell Distribution Width 13.3 % (11.0-15.0); White Blood Count 6.7 10^3/uL (4.0-11.0)
[2024-06-03 17:01] LABS: Alanine Aminotransferase 18 U/L (14-59); Albumin Level 3.3 g/dL (3.4-5.0); Alkaline Phosphatase 90 U/L (46-116); Anion Gap 7.5; Aspartate Amino Transferase 19 U/L (15-37); BUN Creatinine Ratio 12.9; Bilirubin Total 0.8 mg/dL (0.2-1.0); Calcium 9.1 mg/dL (8.5-10.1); Carbon Dioxide 35.7 mmol/L (21.0-32.0); Chloride 96 mmol/L (98-107); Estimated GFR (African America 47 (>=60 mL/min/1.73m^2); Estimated GFR (Non-African Ame 39 (>=60 mL/min/1.73m^2); Globulin 3.3 g/dL; Glucose 156 mg/dL (74-106); Magnesium 2.1 mg/dL (1.8-2.4); Sodium 137 mmol/L (136-145); Total Protein 6.6 g/dL (6.4-8.2); Troponin I High Sensitivity 10.4 pg/mL (4.0-51.3)
[2024-06-03 17:06] LABS: Potassium 2.2 mmol/L (3.5-5.1)
[2024-06-03] MEDS: POTASSIUM CHLORIDE IN 0.9%NACL 1,000 ML 250 ML IV (17:19)
[2024-06-03] MEDS: POTASSIUM BICARBONATE/CIT 25 MEQ TABLET EFF 50 MEQ PO (17:21)
[2024-06-03 17:30] VITALS: BP 109/58; PULSE 84; O2SAT 95
[2024-06-03 18:07] LABS: Bilirubin Urine NEGATIVE (NEGATIVE); Blood Urine SMALL (NEGATIVE); Clarity Urine CLEAR (CLEAR); Color Urine LT. YELLOW (YELLOW); Glucose Urine UA NEGATIVE (NEGATIVE); Ketones Urine NEGATIVE (NEGATIVE); Leukocyte Esterase Urine NEGATIVE (NEGATIVE); Nitrite Urine NEGATIVE (NEGATIVE); Protein Urine NEGATIVE (NEG/TRACE); Urobilinogen Urine 0.2 EU/dL (0.2-1.0)
[2024-06-03 18:32] LABS: WBC Urine 0-2 #/HPF (NONE SEEN)
[2024-06-03 18:33] LABS: Bacteria Urine TRACE #/HPF (NONE SEEN); Cast Seen? NONE SEEN #/LPF (NONE SEEN); Crystals Seen? None Seen #/HPF (None Seen); Mucus Urine NONE SEEN (NONE SEEN); Squamous Epithelial Cell Urine FEW #/LPF (NONE/RARE); Urine Culture Indicated NO
[2024-06-03 18:51] VITALS: BP 107/67; PULSE 88; TEMP 36.8; O2SAT 93; BMI 39.2
--- OUTSIDE RECORDS SUMMARY | 2024-06-03 19:02 | XMS_ITS | CCD ---
Author Organization [facility] Care Team Providers Care Anatomy Teacher Name Role Phone Jani Aguilera Unavailable Nicole [...] Primary Care Unavailable KARAMLOU, ROSA Admitting Unavailable KARAMLOUMOERA Attending Unavailable ZIEBER, DR PEPPER Fuller Consulting Unavailable SAM, DR RIVERA Primary Care Unavailable KARAMLOU, ROSA Consulting Unavailable MD Nicole Vargas Primary Care Provider [...] Provider MD Nicole Vargas Primary Care Provider [phone] MD Nani Calloway Attending Provider ANDRÉS Ellis Attending Provider [phone] Mast DO, Hilario E Primary Care Provider [phone] Nicole Vargas MD Primary Care Provider NICOLE VARGAS MIGUELJLUIS Primary Care Unavailable KARAMLOU, ROSA Referring Unavailable [facility] Primary [facility] Unavailable JOSLYNLOU, ROSA Referring Unavailable RUTH ANN GUTIERRES Attending Unavailable SAM [facility] Primary Care Unavailable VITORAMLOU, ROSA Referring Unavailable RUTH ANN GUTIERRES Attending Unavailable SAM [facility]LE [facility] Primary Care Unavailable VITORAMLOU, ROSA Referring Unavailable MD Nicole Vargas Primary Care Provider MD Nani Calloway Attending Provider Mast, DO Hilario Primary Care Provider Mast, DO Hilario Attending Provider Mast, DO Hilario Primary Care Provider Mast, DO Hilario Attending Provider [phone] BERNADINE DIAZ Attending Unavailable PARUL FREEMAN Attending Unavailable BERNADINE DIAZ Attending Unavailable BERNADINE DIAZ Referring Unavailable MD Jani Aguilera Attending Provider Nicole Vargas MD Unavailable Hilario Gallo MD Primary Care Provider [phone] ALFREDO STAPLES Consulting Unavailable TONA AVENDAÑO Admitting Unavailable TONA AVENDAÑO Attending Unavailable MAST, HILARIO Primary Care Unavailable JAS MAGUIRE Consulting Unavailable MASHALEH I, MOHAMMAD Consulting Unavailable YOLANDA, ALTAGRACIA L Consulting Unavailable Mast DO, Hilario Primary Care Provider ALFREDO STAPLES Consulting Unavailable TONA AVENDAÑO Admitting Unavailable TONA AVENDAÑO Attending Unavailable MAST, HILARIO Primary Care Unavailable JAS MAGUIRE Consulting Unavailable MASHALEH I, MOHAMMAD Consulting Unavailable YOLANDA, ALTAGRACIA L Consulting Unavailable CARMEN STEINER Consulting Unavailable Mast DO, Hilario Primary Care Provider Nani Calloway MD Attending Provider Bunting DO, Wesley R Attending Provider Jeremiah Rodriguez DO Emergency Provider [phone] Bunting DO, Wesley Primary Care Provider [phone] Kb Tavares MD Admit Provider Kb Tavares MD Attending Provider NANI CALLOWAY Attending Unavailable JACQUELINE CAMPOS Referring Unavailable SAMNICOLE Primary Care Unavailable Roberto Carlos Mohr MD Other Provider Mast DO, Hilario E Primary Care Provider Nani Calloway Admitting Unavailable Nani Calloway Attending Unavailable Mast, Hilario Primary Care Unavailable Chaitanya, Kb Admitting Unavailable Chaitanya, bK Attending Unavailable Roberto Carlos Mohr Consulting Unavailable Bunting, Wesley Primary Care Unavailable Bunting, Wesley R Admitting Unavailable Bunting, Wesley R Attending Unavailable Bunting, Wesley R Admitting Unavailable Bunting, Wesley R Attending Unavailable Mast, Hilario Admitting Unavailable Mast, Hilario Primary Care Unavailable Mast, Hilario Attending Unavailable Mast, Hilario Primary Care Unavailable Mast, Hilario Attending Unavailable Mast, Hilario Admitting Unavailable Willy, Jani Admitting Unavailable Willy, Jani Attending Unavailable Mast, Hilario Primary Care Unavailable Bunting DO, Wesley R Attending Provider [phone] Jeremiah Rodriguez DO Emergency Provider [phone] Bunting DO, Wesley Primary Care Provider [phone] Kb Tavares MD Admit Provider Kb Tavares MD Attending Provider Roberto Carlos Mohr MD Other Provider Allergies Allergy Classification Reported Allergen(s) Allergy Type Date of Onset Reaction(s) Facility Adhesive Tape (1 source) Adhesive Tape Substance Allergy 09-09-19 24 [facility] NSAIDs (2 sources) Ibuprofen Drug Allergy 12-26-19 23 Anaphylaxis [facility] pregabalin (2 sources) pregabalin Drug Allergy 12-26-19 23 Confusion [facility] Work Phone: Sulfonamides (antibiotic) (1 source) Sulfonamides (Antibiotic) Drug Allergy 12-26-19 23 GI Upset [facility] Work Phone: (7 sources) Ibuprofen Drug Allergy Unknown [employer] Other (20 sources) pregabalin; 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: [PREGABALIN] Drug Allergy 05-14-19 21 Mental Status Change, Confusion, Other (See Comments) [facility] (20 sources) Ibuprofen; 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: [IBUPROFEN] Drug Allergy 03-13-19 17 Intolerance, Other [facility] (6 sources) rofecoxib; 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: [ROFECOXIB] Drug Allergy 04-02-19 17 Swelling [facility] (14 sources) Sulfonamides (Antibiotic); 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: [SULFA (SULFONAMIDE ANTIBIOTICS)] Drug Allergy 03-14-19 17 Vomiting, GI Upset, GI intolerance [facility] (1 source) Adhesive agent Drug allergy (disorder) 03-13-19 17 [facility] (1 source) Ibuprofen Drug Allergy 03-13-19 17 [facility] (1 source) pregabalin Drug Allergy 12-28-19 21 [facility] (1 source) rofecoxib Drug Allergy 02-13-20 16 [facility] (1 source) Trimethoprim Drug Allergy 12-28-19 21 [facility] (4 sources) Adhesive Tape Drug allergy rash [facility] [employer] Other (13 sources) Adhesive Tape; 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: [adhesive tape] Allergy to substance 02-20-20 23 rash [facility] (9 sources) Ramipril; 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: [ramipril] Drug Allergy 12-02-19 24 Cough [facility] (7 sources) Pregabalin Propensity to adverse reactions 05-13-19 21 [facility] Work Phone: (7 sources) rofecoxib Drug Allergy 02-12-20 16 Swelling, Unknown [facility] (7 sources) Sulfamethoxazole / Trimethoprim Drug Allergy 10-11-19 23 [facility] (7 sources) Wound Dressing Adhesive Drug Allergy 10-11-19 23 [facility] (1 source) Ibuprofen Drug Allergy 04-14-19 [facility] (1 source) pregabalin Drug Allergy 04-14-19 [facility] Medications Current Medications Medication Drug Class(es) Dates Sig (Normalized) Sig (Original) acetaminophen 500 mg oral tablet (20 sources) Start: 04-14-2024 take 1 tablet by mouth every six hours as needed for pain Acetaminophen 500 mg tablet Active 500 MG PO Every 6 hours as needed for pain April 14, 2024 1:00am Start: 03-03-2024 take 1 dose by mouth [...] by mouth once daily as needed for pain Acetaminophen (Tylenol Extra Strength) 500 mg Tablet Discontinued 500 MG PO Daily as needed for Pain January 15, 2023 1:00am December 09, 2023 1:09pm take 2 tablets by mo uth every eight hours Acetaminophen ER 650 MG 2 tablets as needed Orally every 8 hrs Not-Taking/PRN take 2 tablets by mo uth every eight hours as needed Acetaminophen ER 650 MG 2 tablets as needed Orally every 8 hrs Active [id number] 200 actuat albuterol 0.09 mg/actuat metered dose inhaler (20 sources) beta2-Adrenergic Agonist Start: 04-14-2024 take 1 puff(s) by inhalation every six hours as needed for wheezing Albuterol Sulfate 90 mcg/actuation HFA aerosol inhaler Active 1 PUFF INHALATION Every 6 hours as needed for shortness of breath or wheezing April 14, 2024 1:00am Start: 12-09-2023 End: 04-14-2024 take 1 puff(s) by inhalation every four to six hours as needed for wheezing Albuterol Sulfate 90 mcg/actuation HFA aerosol inhaler Discontinued 2 PUFF INHALATION EVERY 4-6 HOURS as needed for shortness of breath or wheezing 8.5 December 09, 2023 12:00am April 14, 2024 2:31pm Start: 01-04-2023 take 2 puff(s) by mo uth every four to six hours as needed albuterol HFA 90 mcg/act inhaler Indications: Acute bronchitis, unspecified organism INHALE 2 PUFFS BY MOUTH EVERY 4 TO 6 HOURS NEEDED FOR 14 DAYS 18 g 3 01/04/2023 Active Start: 05-31-2022 take 2 puff(s) by in halation every four to six hours as needed [...] mg oral tablet (20 sources) Bisphosphonate Start: 01-15-2023 Alendronate 70 mg tablet Active 70 MG PO FR@899January 15, 2023 1:00am Start: 05-15-2021 End: 05-15-2022 Alendronate 70 mg tablet Act valentin 70 MG PO FR@899January 15, 2023 12:00am alendronate (FOS AMAX) 70 MG tablet Take [...] by mouth if needed (before dental). Active ASCORBIC ACID/MULTIVIT-MIN (EMERGEN-C ORAL) (5 sources) ASCORBIC ACID/MU LTIVIT-MIN (EMERGEN-C ORAL) Take by mouth. Active ASCORBIC ACID/MU LTIVIT-MIN (EMERGEN-C ORAL) Take by mouth. 0 Active Comment on above: Take by mouth. aspirin 81 mg delayed release oral tablet (20 sources) Platelet Aggregation Inhibitor, Nonsteroidal Anti-inflammatory Drug Start: 04-14-2024 Aspirin (Adult Low Dose Aspirin) 81 mg tablet,delayed release (DR/EC) Active 81 MG PO Daily April 14, 2024 1:00am Start: 03-07-2024 take 1 tablet by flori th once daily aspirin 81 MG EC tablet Take 1 tablet by mouth daily 30 tablet 3 03/07/2024 Active Start: 03-05-2024 take 81 mg by mouth once daily 81 mg, Oral, DAILY, First dose on Annie 03/05/24 at 1015, Until Discontinued, Do not crush or break. Start: 01-18-2023 End: 04-14-2024 take 1 tablet by mouth once daily Aspirin (Children's Aspirin) 81 mg Tablet,Chewable Discontinued 81 MG PO Daily 0 January 18, 2023 1:00am April 14, 2024 1:45pm Start: 01-15-2023 End: 03-03-2024 take 1 tablet by mouth once daily in the morning Aspirin (Елена Aspirin) 325 mg Tablet Discontinued 325 MG PO Every morning January 15, 2023 1:00am January 18, 2023 11:56am aspirin 81 mg ca p Take 325 mg by mouth once daily. Active take 1 tablet by flori th once daily aspirin 81 mg EC tablet Take 1 tablet (81 mg) by mouth once daily. Active Comment on above: Take 325 mg by mouth once daily. Baclofen (5 sources) gamma-Aminobutyric Acid-ergic Agonist BACLOFEN ORAL Take b y mouth as needed. Active BACLOFEN ORAL Ta ke by mouth as needed. 0 Active BACLOFEN ORAL Ta ke by mouth. 0 Active Comment on above: Take by mouth. Take by mouth as nee ded. carvedilol 3.125 mg oral tablet (20 sources) alpha-Adrenergic Stas, beta-Adrenergic Stas Start: 04-14-2024 take 1 tablet by mouth twice daily at mealtime Carvedilol 3.125 mg tablet Active 3.125 MG PO Twice daily April 14, 2024 1:00am must administer with a meal/food Start: 03-03-2024 take 3.125 mg by flori th twice daily at mealtime 3.125 mg, Oral, 2 TIMES DAILY WITH MEALS, First dose on Sat03/03/24 at 2100, Until Discontinued, Administer with food to minimize the risk of orthostatic hypotension Start: 01-15-2023 End: 04-14-2024 take 6.125 mg by mouth twice daily Carvedilol 6.25 mg tablet Discontinued 6.125 MG PO Twice daily January 15, 2023 1:00am April 14, 2024 2:27pm Start: 01-15-2023 take 6.125 mg by flori th twice daily Carvedilol Active 6.125 MG PO Twice daily January 15, 2023 1:00am Start: 04-29-2019 take 1 tablet by flori th twice daily carvedilol (Coreg) 6.25 MG tablet Indications: Secondary hypertension (CMS/HCC) TAKE 1 TABLET BY MOUTH TWICE A DAY 180 tablet 1 03/16/2024 Active take 1 tablet by flori th twice daily at mealtime carvedilol (COREG) 3.125 MG tablet Take 1 tablet by mouth 2 times daily (with meals) Active Comment on above: Take 6.25 mg by mout h twice daily. 12 hr cetirizine hydrochloride 5 mg / pseudoephedrine hydrochloride 120 mg extended release oral tablet (4 sources) alpha-Adrenergic Agonist, Histamine-1 Receptor Antagonist take 1 tablet by mouth twice daily cetirizine-pseudoeph edrine (ZyrTEC-D) 5-120 mg 12 hr tablet Take 1 tablet by mouth 2 times a day. Active cetirizine HCl/pseudoephedrine (ZYRTEC-D ORAL) (2 sources) cetirizine HCl/pseudoephedrine (ZYRTEC-D ORAL) Take by mouth. Active cetirizine HCl/p seudoephedrine (ZYRTEC-D ORAL) Take by mouth. 0 Active Comment on above: Take by mouth. cholecalciferol, vitamin D3, (VITAMIN D3 ORAL) (9 sources) Start: 12-01-2020 cholecalcifero l, vitamin D3, (VITAMIN D3 ORAL) Refills(s) 0 12/01/2020 Active Start: 12-01-2020 cholecalcifero l, vitamin D3, (VITAMIN D3 ORAL) Refills(s) 0 0 12/01/2020 Active take 500 [IU] by flori th once daily cholecalciferol, vitamin D3, (VITAMIN D3 ORAL) Take 500 Units by mouth once daily. Active take 500 [IU] by flori th once daily cholecalciferol, vitamin D3, (VITAMIN D3 ORAL) Take 500 Units by mouth once daily. 0 Active Comment on above: Refills(s) 0 ergocalciferol 1.25 mg oral capsule (7 sources) Provitamin D2 Compound ergocalciferol (Vitamin D-2) 1.25 MG (21708 UT) capsule 1 capsule. Active furosemide 20 mg oral tablet (20 sources) Loop Diuretic Start: 05-15-19 take 1 tablet by mouth once daily Furosemide 20 mg tablet Active 20 MG PO Daily May 14, 2024 12:00am Start: 04-14-2024 End: 05-14-2024 take 1 tablet by mouth twice daily Furosemide (Lasix) 40 mg tablet Discontinued 40 MG PO Twice daily April 14, 2024 1:00am May 14, 2024 2:10pm On Hold: Resume on 04/25/24. Please hold Lasix until seen by your PCP/clinical laboratory director. Start: 03-03-2024 take 40 mg by mouth twice daily 40 mg, Oral, 2 TIMES DAILY, First dose on Sat03/03/24 at 2100, Until Discontinued Start: 03-06-2023 End: 04-14-2024 take 1 tablet by mouth once daily as needed Furosemide 40 mg tablet Discontinued 40 MG PO Daily as needed November 08, 2023 12:00am April 14, 2024 1:47pm Start: 03-15-2020 furosemide (LA SIX) 20 mg tablet 03/15/2020 Active levothyroxine sodium 0.112 mg oral tablet (20 sources) l-Thyroxine Start: 06-26-2018 take 1 tablet by mouth once daily in the morning Levothyroxine 112 mcg tablet Active 112 MCG PO Every morning January 15, 2023 1:00am levothyroxine (T irosint) 112 mcg capsule Take [...] once daily. montelukast 10 mg oral tablet (20 sources) Leukotriene Receptor Antagonist Start: take 1 tablet by mouth once daily at bedtime Montelukast 10 mg tablet Active 10 MG PO Daily at bedtime January 15, 2023 1:00am Comment on above: Take 10 mg by mouth daily at bedtime. [place] 3-6-9 - (3 sources) [place] 3-6-9 - as directed Orally Active omega-3 acid ethyl esters (half-way) 1000 mg oral capsule (4 sources) omega-3 acid eth yl esters (Lovaza) 1 gram capsule Take 1 capsule (1 g) by mouth once daily. Active [place]-3 Fatty Acids (9 sources) Start: take 1000 mg by mouth twice daily [place]-3 Fatty Acids Active 1000 MG PO Twice daily January 15, 2023 1:00am Start: 01-15-2023 take 1000 mg by mout h twice daily [place]-3 Fatty Acids Active 1000 MG PO Twice daily January 15, 2023 12:00am ondansetron (ZOFRAN-ODT) disintegrating tablet 4 mg (1 source) Start: 03-03-2024 ondansetron (Z OFRAN-ODT) disintegrating tablet 4 mg polyethylene glycol [id number] mg powder for oral solution (1 source) Osmotic Laxative Start: 03-03-2024 17 g, Oral, D AILColette, First dose on Sat03/03/24 at 1630, Until Discontinued, Stir and dissolve one packet of powder (17 g) in any 4 to 8 ounces of beverage (cold, hot or room temperature) then drink Potassium (5 sources) POTASSIUM ORAL T delia by mouth. Active POTASSIUM ORAL T delia by mouth. 0 Active Comment on above: Take by mouth. potassium chloride 20 meq extended release oral tablet (12 sources) Start: 04-14-2024 take 1 tablet by mouth twice daily Potassium Chloride 20 mEq tablet extended release Active 20 MEQ PO Twice daily April 14, 2024 1:00am Start: 03-04-2024 End: 03-06-2024 40 mEq, Oral, 2 TIMES DAILY, First dose on Sat03/04/24 at 0900, Until Discontinued, Do not crush or break. Do not crush, chew, or suck on tablet. Tablet may also be broken in half and each half swallowed separately. Start: 12-03-2023 End: 04-14-2024 take 1 tablet by mouth once daily Potassium Chloride 20 mEq tablet extended release Discontinued 20 MEQ PO Daily December 03, 2023 12:00am April 14, 2024 2:31pm take 20 mEq by mouth twice daily potassium chloride (KLOR-CON) 20 MEQ packet Take 20 mEq by mouth 2 times daily Active predniSONE 20 mg oral tablet (1 source) Start: 05-31-2022 take 1 tablet by mouth every twelve hours prednisone 20 MG 1 tablet Orally Twice a day for 5 days May, Active rosuvastatin calcium 20 mg oral tablet (20 sources) HMG-CoA Reductase Inhibitor Start: 05-03-2020 take 1 tablet by mouth once daily at bedtime Rosuvastatin 20 mg tablet Active 20 MG PO Daily at bedtime January 15, 2023 1:00am Comment on above: Take 20 mg by mouth once daily. For 30 days saccharomyces boulardii 250 mg oral capsule (5 sources) Start: 04-18-2024 take 1 capsule by mouth once daily Saccharomyces Boulardii 250 mg Capsule Active 250 MG PO Daily April 18, 2024 1:00am End: 01-22-2023 take 1 capsule by mouth once daily saccharomyces boulardii (Florastor) 250 mg capsule Take 1 capsule (250 mg) by mouth once daily. 0 01/22/2023 Discontinued (Other) ticagrelor 90 mg oral tablet (20 sources) Start: 03-11-2024 take 90 mg by mouth twice daily 90 mg, Oral, 2 TIMES DAILY, First dose on Sat03/11/24 at 0900, Until Discontinued, ANTIPLATELET! Start: 01-18-2023 End: 04-14-2024 take 1 tablet by mouth twice daily Ticagrelor (Brilinta) 90 mg Tablet Discontinued 90 MG PO Twice daily 180 90 January 18, 2023 1:00am April 14, 2024 1:52pm triamcinolone acetonide 1 mg/ml topical cream (5 sources) Corticosteroid Start: 04-14-2024 End: 05-14-2024 Triamcinolone Acetonide 0.1 % cream Active 1 APPLIC TOPICAL Three times daily as needed May 14, 2024 2:12pm Completed/Discontinued Medications Medication Drug Class(es) Dates Sig (Normalized) Sig (Original) amitriptyline hydrochloride 10 mg oral tablet (4 [...] mg / clavulanate 125 mg oral tablet (11 sources) Penicillin-class Antibacterial Start: 09-02-2023 End: 12-02-2023 take 1 tablet by mouth twice daily Amoxicillin-Pot Clavulanate 875-125 mg tablet Discontinued 1 TAB PO Twice daily September 02, 2023 12:00am December 02, 2023 1:12pm azithromycin 250 mg oral tablet (10 sources) Macrolide Antimicrobial Start: 09-16-2023 End: 11-08-2023 Azithromycin (Zithromax Z-Rupert) 250 mg tablet Discontinued 0 PO .COMPLEX 6 September 16, 2023 12:00am November 08, 2023 9:05am For 250 mg dose pack: take 500 mg today (day 1), then 250 mg for 4 days (days 2-5) PO benzocaine 15 mg / menthol 3.6 mg oral lozenge (1 source) Standardized Chemical Allergen Start: 03-06-2024 1 lozenge, Oral, EVERY 2 HOURS PRN, Starting on Sat03/06/24 at 1101, Until Discontinued, Sore Throat benzonatate 200 mg oral capsule (19 sources) Non-narcotic Antitussive Start: 11-12-2023 End: 12-09-2023 take 1 capsule by mouth three times daily as needed for cough Benzonatate 200 mg capsule Discontinued 200 MG PO Three times daily as needed for cough November 12, 2023 12:00am December 09, 2023 1:09pm Start: 05-31-2022 take 1 capsule by [facility] three times daily as needed benzonatate (Tessalon) 100 MG capsule Indications: Acute cough TAKE 1 CAPSULE BY MOUTH THREE TIMES A DAY NEEDED FOR 10 DAYS 30 capsule 01/07/2023 Active cetirizine hydrochloride 10 mg oral tablet (20 sources) Histamine-1 Receptor Antagonist Start: 01-15-2023 End: 04-14-2024 take 1 tablet by mouth once daily as needed Cetirizine (Zyrtec) 10 mg Tablet Discontinued 10 MG PO Daily as needed for allergies January 15, 2023 1:00am April 14, 2024 2:31pm Cetirizine HCl ( ZyrTEC ALLERGY) 10 MG capsule Active cholecalciferol 0.125 mg oral tablet (20 sources) Vitamin D Start: 01-15-2023 End: 04-14-2024 take 1 tablet by mouth once daily Cholecalciferol (Vitamin D3) (Vitamin D3) 125 mcg (5,000 unit) Tablet Discontinued 125 MCG PO every day at noon January 15, 2023 1:00am April 14, 2024 2:31pm Vitamin D3 125 M CG (5000 UT) as directed Orally Active Vitamin D3 125 M CG (5000 UT) as directed Orally Active cyclobenzaprine hydrochloride 10 mg oral tablet (4 sources) Muscle Relaxant Start: 07-11-2018 End: 05-13-2023 cyclobenzaprine (FLEXERIL) 10 mg tablet Take 10 mg by mouth as needed. 3 07/11/2018 05/13/2023 Discontinued (Discontinued by Patient) Comment on above: Take 10 mg by mouth as needed. DULoxetine 30 mg delayed release oral capsule (20 sources) Serotonin and Norepinephrine Reuptake Inhibitor Start: 03-03-2024 take 1 capsule by mouth once daily 60 mg, Oral, DAILY, First dose on Sat03/03/24 at 2100, Until Discontinued, Do not crush or break. May add contents of capsule to apple juice or apple sauce, but not chocolate. Start: 01-15-2023 take 1 capsule by [facility] once daily Duloxetine (Cymbalta) 60 mg capsule,delayed release(DR/EC) Active 60 MG PO Daily January 15, 2023 1:00am Comment on above: [...] dose on Sat03/03/24 at 2100, Until Discontinued folic acid 1 mg oral tablet (20 sources) Start: 01-02-2023 End: 04-14-2024 take 1 tablet by mouth once daily in the morning Folic Acid 1 mg tablet Discontinued 1 MG PO Every morning January 15, 2023 1:00am April 14, 2024 2:28pm Comment on above: Take 1 mg by mouth o nce daily. hydroCHLOROthiazide 25 mg oral tablet (1 source) Thiazide Diuretic Start: 03-03-2024 take 25 mg by mouth once daily 25 mg, Oral, DAILY, First dose on Sat03/03/24 at 2100, Until Discontinued, Substituted for Indapamide (LOZOL). indapamide 1.25 mg oral tablet (20 sources) Thiazide-like Diuretic Start: 04-02-2023 End: 01-29-2025 Indapamide 1.25 mg tablet Discontinued 1.25 MG PO May 06, 2023 [...] oral tablet (20 sources) Aromatase Inhibitor Start: 01-24-2021 End: 12-02-2023 take 1 tablet by mouth once daily in the morning Letrozole 2.5 mg tablet Discontinued 2.5 MG PO Every morning January 15, 2023 1:00am December 02, 2023 1:14pm Comment on above: Take 1 tablet by flori th once daily Take 1 tablet by flori th once daily. take 1 tablet by flori th every day Magnesium (4 sources) End: 05-13-2023 MAGNESIUM ORAL Take by mouth. 0 05/13/2023 Discontinued (Discontinued by Patient) MAGNESIUM ORAL T delia by mouth. 0 Active Comment on above: Take by mouth. 1 ml methylPREDNISolone acetate 40 mg/ml injection (4 sources) Corticosteroid Start: 11-27-2023 End: 11-27-2023 methylPREDNISolone acetate (DEPO-Medrol) injection 40 mg Start: 11-27-2023 End: 11-27-2023 40 mg, Intra-articular, Once PRN Procedure, Starting on Sat11/27/23 at 0718, For 1 dose nitroglycerin 0.4 mg sublingual tablet (19 sources) Nitrate Vasodilator Start: 01-18-2023 End: 04-14-2024 Nitroglycerin 0.4 mg Tablet, Sublingual Discontinued 0.4 MG SUBLINGUAL Q5M as needed for Chest Pain January 18, 2023 1:00am April 14, 2024 2:29pm Nitroglycerin 0. 4 MG as directed Sublingual Active [place]-3 Fatty Acids Capsule (5 sources) Start: 01-15-2023 End: 04-14-2024 take 1 capsule by mouth twice daily [place]-3 Fatty Acids Capsule Discontinued 1000 MG PO Twice daily January 15, 2023 1:00am April 14, 2024 1:43pm Start: 01-15-2023 End: 04-14-2024 take 1 capsule by mouth twice daily [place]-3 Fatty Acids Capsule Discontinued 1000 MG PO Twice daily January 15, 2023 12:00am April 14, 2024 12:43pm Start: 01-15-2023 take 1 capsule by mo [facility] twice daily [place]-3 Fatty Acids Capsule Active 1000 MG PO Twice daily January 15, 2023 12:00am oxaprozin 600 mg oral tablet (4 sources) Nonsteroidal Anti-inflammatory Drug Start: 04-22-2019 End: 05-13-2023 take 1 tablet by mouth twice daily oxaprozin (DAYPRO) 600 mg tablet Take 600 mg by mouth twice daily. 0 04/22/2019 05/13/2023 Discontinued (Discontinued by Patient) Comment on above: Take 600 mg by mouth twice daily. potassium bicarbonate 20 meq effervescent oral tablet (1 source) Start: 03-06-2024 End: 03-06-2024 take 3-4 tablets by mouth once 40 [...] further dilute if GI adverse effects occur. Probiotic Acidophilus - (7 sources) Probiotic Acidophilus - as directed Orally Not-Taking/PRN Probiotic Acidop hilus - as directed Orally Active ramipril 10 mg oral capsule (20 sources) Angiotensin Converting Enzyme Inhibitor Start: 01-15-2023 End: 04-28-2024 Ramipril 10 mg capsule Discontinued MG April 14, 2024 1:00am April 14, 2024 1:49pm Comment on above: Take 10 mg by mouth once daily. 5 ml sodium chloride 9 mg/ml injection [...] Line Care, After every IV line use traMADol hydrochloride 50 mg oral tablet (20 sources) Opioid Agonist Start: 01-15-2023 End: 04-14-2024 take 1 tablet by mouth four times daily as needed Tramadol 50 mg tablet Discontinued 50 MG PO Four times daily as needed December 02, 2023 1:14pm April 14, 2024 12:49pm Start: 10-24-2021 traMADol (Ultr am) 50 MG tablet every 6 (six) hours. 10/24/2021 Active Comment on above: Take 50 mg by mouth as needed. vancomycin 125 mg oral capsule (4 sources) Glycopeptide Antibacterial Start: 5 End: 5 take 1 capsule by mouth three times daily Vancomycin 125 mg capsule Discontinued 125 MG PO Three times daily April 14, 2024 1:00am May 14, 2024 2:12pm Problems Active Problems Problem Classification Problem Date Documented Date Episodic/Chronic Acute and unspecified renal failure (7 sources) Acute renal failure syndrome; 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: [Acute kidney failure, unspecified] Onset: 5 04-15-2024 Episodic Acute bronchitis (1 source) Acute bronchitis, unspecified; 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: [ACUTE BRONCHITIS UNSPECIFIED] Onset: 3 Episodic Acute cerebrovascular disease (5 sources) Nontraumatic subarachnoid hemorrhage, unspecified; 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: [Hemorrhage into subarachnoid space of neuraxis] Onset: 4 03-03-2024 Chronic Administrative/social admission (1 source) Persons encountering health services in other specified circumstances Episodic Calculus of urinary tract (20 sources) Kidney stone; 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: [Calculus of kidney] Onset: 3 Resolved: 3 Episodic Comment on above: Problem List clean-u p per request of Phys. EHR Cmte Cancer of breast (20 sources) Malignant neoplasm of female breast; 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: [Malignant neoplasm of unspecified site of right female breast] Onset: 6 Resolved: 3 04-02-2016 Chronic Chronic kidney disease (20 sources) Chronic kidney disease stage 3; 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: [Chronic kidney disease, stage 3 unspecified] Onset: 7 12-02-2023 Chronic Chronic kidney disease (5 sources) Chronic kidney disease; 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: [CHRONIC KIDNEY DISEASE STAGE 3A] Onset: 3 Chronic obstructive pulmonary disease and bronchiectasis (13 sources) Acute exacerbation of chronic obstructive airways disease; 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: [Chronic obstructive pulmonary disease with (acute) exacerbation] Onset: 3 Chronic Chronic obstructive pulmonary disease and bronchiectasis (4 sources) Bronchitis, not specified as acute or chronic; 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: [BRONCHITIS NOT SPEC ACUTE/CHRON] Onset: 3 Episodic Congestive heart failure; nonhypertensive (8 sources) Acute systolic (congestive) heart failure; 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: [Acute systolic heart failure] Onset: 3 10-10-2022 Chronic Coronary atherosclerosis and other heart disease (20 sources) Atherosclerotic heart disease of [place] coronary artery without angina pectoris; 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: [Angina pectoris] Onset: 3 12-25-2022 Chronic Comment on above: Problem List clean-u p per request of Phys. EHR Cmte Diseases of white blood cells (7 sources) Leukopenia; 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: [Decreased white blood cell count, unspecified] Onset: 3 10-10-2022 Chronic Disorders of lipid metabolism (20 sources) Pure hypercholesterolemia, unspecified; 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: [Pure hyperglyceridemia] Onset: 3 12-25-2022 Chronic Comment on above: Problem List clean-u p per request of Phys. EHR Cmte Diverticulosis and diverticulitis (7 sources) Diverticulosis of colon; 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: [Diverticulosis of large intestine without perforation or abscess without bleeding] Onset: 3 10-10-2022 Chronic Essential hypertension (20 sources) Benign essential hypertension; 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: [Essential (primary) hypertension] Onset: 3 12-25-2022 Chronic Comment on above: Problem List clean-u p per request of Phys. 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] Chronic Genitourinary symptoms and ill-defined conditions (14 sources) Other microscopic hematuria; 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: [Microscopic hematuria] Onset: 4 Episodic Hypertension with complications and secondary hypertension (20 sources) Chronic kidney disease due to hypertension; 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: [Hypertensive chronic kidney disease with stage 1 through stage 4 chronic kidney disease, or unspecified chronic kidney disease] Onset: 1 Chronic Immunizations and screening for infectious disease (7 sources) Contact with and (suspected) exposure to other viral communicable diseases; 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: [Encounter for immunization] Episodic Malaise and fatigue (7 sources) Fatigue; 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: [Chronic fatigue, unspecified] Onset: 3 10-10-2022 Chronic Malaise and fatigue (1 source) Other fatigue; 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: [OTHER FATIGUE] Onset: 3 Episodic Menopausal disorders (1 source) Hormone replacement therapy; 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: [HORMONE REPLACEMENT THERAPY] Onset: 3 Episodic Miscellaneous mental health disorders (7 sources) Primary insomnia; 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: [Primary insomnia] Onset: 3 10-10-2022 Chronic Neoplasms of unspecified nature or uncertain behavior (2 sources) Neoplastic disease; 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: [Neoplasm of unspecified behavior of bone, soft tissue, and skin] 11-18-2023 Episodic Nonspecific chest pain (4 sources) Chest pain, unspecified; 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: [CHEST PAIN UNSPECIFIED] Onset: 3 Episodic Nutritional deficiencies (9 sources) Vitamin D deficiency; 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: [Vitamin D deficiency, unspecified] Onset: 3 10-10-2022 Chronic Open wounds of head; neck; and trunk (1 source) Laceration without foreign body of left ear, initial encounter Episodic Osteoarthritis (20 sources) Unspecified osteoarthritis, unspecified site; 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: [Degenerative joint disease involving multiple joints] Onset: 8 Chronic Osteoporosis (3 sources) Osteoporosis; 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: [Age-related osteoporosis without current pathological fracture] Onset: 4 05-06-2023 Chronic Other aftercare (1 source) Other terminal make up operator (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; 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: [OTH BILINGUAL SCHOOL PSYCHOLOGIST CURRENT DRUG THERAPY] Onset: 3 Episodic Other aftercare (1 source) Long-term current use of aspirin; 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: [[facility] (current) use of aspirin] 04-23-2024 Episodic Other and unspecified benign neoplasm (2 sources) Melanocytic nevus of trunk; 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: [Melanocytic nevi of trunk] 11-18-2023 Episodic Other bone disease and musculoskeletal deformities (20 sources) Osteopenia; 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: [Other specified disorders of bone density and structure, unspecified site] Onset: 3 Episodic Comment on above: Problem List clean-u p per request of Phys. EHR Cmte Other bone disease and musculoskeletal deformities (5 sources) Other specified disorders of bone density and structure, unspecified site; 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: [Disorder of bone and cartilage, unspecified] 09-09-2023 Episodic Other circulatory disease (1 source) History of angioplasty; 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: [Peripheral vascular angioplasty status with implants and grafts] 01-22-2023 Chronic Other circulatory disease (1 source) Abnormal foot pulse; 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: [Other specified symptoms and signs involving the circulatory and respiratory systems] 04-23-2024 Episodic Other connective tissue disease (9 sources) History of repair of hip joint; 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: [Presence of right artificial hip joint] Onset: 3 10-10-2022 Chronic Other connective tissue disease (7 sources) History of total replacement of left hip joint; 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: [Presence of left artificial hip joint] Onset: 3 10-10-2022 Chronic Other connective tissue disease (1 source) Fibromyalgia; 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: [FIBROMYALGIA] Onset: 3 Episodic Other diseases of kidney and ureters (15 sources) Secondary hyperparathyroidism; 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: [Secondary hyperparathyroidism of renal origin] 12-02-2023 Chronic Other diseases of kidney and ureters (9 sources) Secondary hyperparathyroidism of renal origin; 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: [Secondary hyperparathyroidism (of renal origin)] Onset: 5 Chronic Other diseases of kidney and ureters (7 sources) Hyperparathyroidism due to renal insufficiency; 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: [Secondary hyperparathyroidism of renal origin] Onset: 3 10-10-2022 Chronic Other diseases of kidney and ureters (15 sources) Cyst of kidney; 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: [Cyst of kidney, acquired] Onset: 3 12-02-2023 Episodic Other gastrointestinal disorders (1 source) Irritable bowel syndrome without diarrhea; 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: [IRRITABLE BOWEL SYND W/O DIARRHEA] Onset: 3 Chronic Other hereditary and degenerative nervous system conditions (1 source) Degenerative disease of nervous system, unspecified; 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: [DEGENERATIVE DZ NERVOUS SYSTEM UNS] Onset: 2 Chronic Other hereditary and degenerative nervous system conditions (7 sources) Restless legs; 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: [Restless legs syndrome] Onset: 3 10-10-2022 Chronic Other lower respiratory disease (1 source) Shortness of breath; 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: [SHORTNESS OF BREATH] Onset: 3 Episodic Other lower respiratory disease (20 sources) Cough; 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: [Cough] Onset: 3 11-08-2023 Episodic Other lower respiratory disease (7 sources) Usiyaufnezh-[id number] nzyme inhibitor adverse reaction; 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: [Cough due to angiotensin-converting enzyme inhibitor] 12-09-2023 Episodic Other nervous system disorders (7 sources) Bilateral carpal tunnel syndrome; 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: [Carpal tunnel syndrome, bilateral upper limbs] Onset: 3 10-10-2022 Chronic Other nervous system disorders (7 sources) Difficulty walking; 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: [Difficulty in walking, not elsewhere classified] Onset: 3 10-10-2022 Chronic Other nervous system disorders (7 sources) Chronic pain; 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: [Other chronic pain] Onset: 3 10-10-2022 Chronic Other non-traumatic joint disorders (2 sources) Pain in left knee; 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: [Pain in joint, lower leg] 11-26-2023 Episodic Other nutritional; endocrine; and metabolic disorders (10 sources) Body mass index 40+ - severely obese; 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: [Morbid (severe) obesity due to excess calories] Onset: 7 Resolved: 4 07-17-2016 Chronic Other nutritional; endocrine; and metabolic disorders (10 sources) Morbid obesity; 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: [Morbid (severe) obesity due to excess calories] Onset: 3 04-02-2023 Chronic Other nutritional; endocrine; and metabolic disorders (1 source) Morbid (severe) obesity due to excess calories; [...] Chronic Other nutritional; endocrine; and metabolic disorders (7 sources) Insulin resistance; 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: [Insulin resistance] Onset: 3 10-10-2022 Chronic Other nutritional; endocrine; and metabolic disorders (2 sources) Body mass index (BMI) 39.0-39.9, adult; 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: [Body mass index (BMI) 39.0-39.9, adult] Onset: 4 Chronic Other nutritional; endocrine; and metabolic disorders (6 sources) Hyperuricemia; Translations: [Hyperuricemia without signs of inflammatory arthritis and tophaceous disease] 12-03-2023 Episodic Other nutritional; endocrine; and metabolic disorders (1 source) Hyperuricemia without signs of inflammatory arthritis and tophaceous disease; Translations: [Other abnormal blood chemistry] 12-02-2023 Episodic Other skin disorders (2 sources) Lentiginosis; Translations: [Other melanin hyperpigmentation] 11-18-2023 Episodic Other skin disorders (2 sources) Seborrheic keratosis; Translations: [Other seborrheic keratosis] 11-18-2023 Episodic Other skin disorders (1 source) Dystrophia unguium; Translations: [Nail dystrophy] 04-23-2024 Episodic Other upper respiratory disease (7 sources) Seasonal allergy; Translations: [Other seasonal allergic rhinitis] Onset: 3 10-10-2022 Chronic Other upper respiratory infections (18 sources) Chronic sinusitis; Translations: [Chronic sinusitis, unspecified] 09-02-2023 Chronic Peripheral and visceral atherosclerosis (7 sources) Abdominal aortic atherosclerosis; Translations: [Atherosclerosis of aorta] Onset: 3 10-10-2022 Chronic Residual codes; unclassified (1 source) Acquired [...] UTERUS] Onset: 3 Episodic Residual codes; unclassified (14 sources) History of cardiac catheterization; Translations: [Other specified postprocedural states] 01-18-2023 Episodic Comment on above: Problem List clean-u p per request of Phys. EHR Cmte Residual codes; unclassified (1 source) Other specified postprocedural states; Translations: [Other postprocedural status] 01-18-2023 Episodic Residual codes; unclassified (1 source) Localized edema; Translations: [Localized edema] 04-23-2024 Episodic Screening and history of mental health and substance abuse codes (18 sources) Personal history of nicotine dependence; Translations: [Ex-smoker] Onset: 3 05-06-2023 Episodic Spondylosis; intervertebral disc disorders; other back problems (7 sources) Lumbar spondylosis; Translations: [Spondylosis without myelopathy or radiculopathy, lumbar region] Onset: 3 10-10-2022 Chronic Superficial injury; contusion (15 sources) Contusion of left eyelid and periocular area, initial encounter; Translations: [Periorbital ecchymosis of left eye] 09-09-2023 Episodic Syncope (20 sources) Tussive syncope; Translations: [Syncope and collapse] Onset: 5 09-09-2023 Episodic Thyroid disorders (12 sources) Thyrotoxicosis, unspecified without thyrotoxic crisis or storm; Translations: [Hypothyroidism, unspecified] Onset: 3 08-29-2022 Chronic Unclassified (1 source) CONTACT W/AND (SUSP) EXPOS COVID-19; Translations: [CONTACT W/AND (SUSP) EXPOS COVID-19] Onset: 3 Unclassified (1 source) COUGH, UNSPECIFIED; Translations: [COUGH, UNSPECIFIED] Onset: 3 Unclassified (3 sources) A [facility] screening has identified you as FRAIL or AT RISK FOR FRAILTY. This puts you at a higher risk for infection, illness, falls, and other injuries. Here are four ways to help you reduce your risk of frailty: 1. IDENTIFY EARLY SIGNS OF FRAILTY Discuss contributing factors and concerns with your doctor 2. BE ACTIVE Walking and light strengthening exercises will help reduce weakness 3. EAT WELL Aim for three healthy meals a day that are high in protein 4. THINK POSITIVE Keep your mind active by being sociable and continuing to learn References: Stay Strong: Four Ways to Beat the Frailty Risk [email or web address] 04-18-2024 Unclassified (1 source) Cough, unspecified; Translations: [Cough, unspecified] Onset: 4 Past or Other Problems Problem Classification Problem Date Documented Da te Episodic/Chronic Cancer of breast (8 sources) History of malignant neoplasm of breast; Translations: [Personal history of malignant neoplasm of breast] Onset: 03-28-2018 03-28-2018 Episodic Coronary atherosclerosis and other heart disease (7 sources) Stented coronary artery; Translations: [Presence of coronary angioplasty implant and graft] Onset: 08-08-2023 04-02-2023 Episodic Diabetes mellitus without complication (8 sources) Impaired fasting glucose; Translations: [Impaired fasting glycemia] Onset: 04-27-2022 10-10-2022 Episodic Other connective tissue disease (7 sources) Fibromyalgia; Translations: [Fibromyalgia] Onset: 10-10-2022 10-10-2022 Episodic Other diseases of kidney and ureters (4 sources) Cyst of kidney, acquired; Translations: [Cystic kidney disease, unspecified] Onset: 12-02-2023 12-02-2023 Episodic Other diseases of kidney and ureters (7 sources) Renal impairment; Translations: [Disorder of kidney and ureter, unspecified] Onset: 10-10-2022 10-10-2022 Episodic Other gastrointestinal disorders (7 sources) Constipation; Translations: [Constipation, unspecified] Onset: 10-10-2022 10-10-2022 Episodic Other liver diseases (7 sources) Alkaline phosphatase raised; Translations: [Abnormal levels of other serum enzymes] Onset: 10-10-2022 10-10-2022 Episodic Other lower respiratory disease (7 sources) Dyspnea; Translations: [Shortness of breath] Onset: 11-19-2022 11-19-2022 Episodic Other nervous system disorders (7 sources) Antalgic gait; Translations: [Other abnormalities of gait and mobility] Onset: 10-10-2022 10-10-2022 Episodic Other nervous system disorders (7 sources) White matter disease; Translations: [White matter disease, unspecified] Onset: 10-10-2022 10-10-2022 Episodic Other screening for suspected conditions (not mental disorders or infectious disease) (20 sources) Patient encounter status; Translations: [Encounter for other screening for malignant neoplasm of breast] Onset: 04-03-2022 Episodic Residual codes; unclassified (4 sources) Family history of ischemic heart disease and other diseases of the circulatory system; Translations: [FAM HX ISCHEMIC HRT DZ OTH DZ CIRC] Onset: 10-31-2021 Episodic Residual codes; unclassified (7 sources) Amnesia; Translations: [Other amnesia] Onset: 10-10-2022 10-10-2022 Episodic Unclassified (4 sources) Onset: 12-25-2022 Resolved: 08-08-2023 12-25-2022 Results Test Name Value Interpretation Reference Range Facility Basophils Auto (Bld) [#/Vol] Ordered By: Wesley Tena on 05-01-2024 Basophils (Bld) [#/Vol] Automated basophil count 0.0-0.2 [facility] Basophils/100 WBC Auto (Bld) Ordered By: Wesley Tena on 05-01-2024 Basophils/100 WBC (Bld) Automated basophil % . [facility] Complete Blood Count Auto Di ffon 05-01-2024 Basophils (Bld) [#/Vol] 0.0 10*3/uL Normal 0.0-0.2 [facility] Comment on above: Result Comment: PERF ORMED BY: [place] [address] PATHOLOGIST SHOE CLEANER SELIN HOYT M.D. Performed By: #### P HOS, BMP, MG #### [address] Basophils/100 WBC (Bld) 0.9 % Normal . [facility] Comment on above: Performed By: #### P HOS, BMP, MG #### [address] Eosinophils (Bld) [#/Vol] 0.2 10*3/uL Normal 0.0-0.45 [facility] Comment on above: Performed By: #### P HOS, BMP, MG #### [address] Eosinophils/100 WBC (Bld) 5.4 % Normal . [facility] Comment on above: Performed By: #### P HOS, BMP, MG #### [address] Erythrocyte distribution width (RBC) [Ratio] 15.6 % High 11.9-15.3 [facility] Comment on above: Performed By: #### P HOS, BMP, MG #### [address] Hematocrit (Bld) [Volume fraction] 43.0 % Normal 34.0-46.4 [facility] Comment on above: Performed By: #### P HOS, BMP, MG #### [address] Hemoglobin (Bld) [Mass/Vol] 14.4 g/dL Normal 11.8-15.4 [facility] Comment on above: Performed By: #### P HOS, BMP, MG #### [address] Lymphocytes (Bld) [#/Vol] 1.1 10*3/uL Normal 1.00-4.8 [facility] Comment on above: Performed By: #### P HOS, BMP, MG #### [address] Lymphocytes/100 WBC (Bld) 27.9 % Normal . [facility] Comment on above: Performed By: #### P HOS, BMP, MG #### [address] MCH (RBC) [Entitic mass] 31.0 pg Normal 24.7-34.3 [facility] Comment on above: Performed By: #### P HOS, BMP, MG #### [address] MCV (RBC) [Entitic vol] 92.5 fL Normal 80-100 [facility] Comment on above: Performed By: #### P HOS, BMP, MG #### [address] Mean Corpuscular HGB Conc 33.6 g/dL Normal 32.0-35.0 [facility] Comment on above: Performed By: #### P HOS, BMP, MG #### [place] [address] [place] Monocytes (Bld) [#/Vol] 0.5 10*3/uL Normal 0.0-0.8 [facility] Comment on above: Performed By: #### P HOS, BMP, MG #### [place] [address] [place] Monocytes/100 WBC (Bld) 11.5 % Normal . [facility] Comment on above: Performed By: #### P HOS, BMP, MG #### [place] [address] [place] Neutrophils (Bld) [#/Vol] 2.2 10*3/uL Normal 1.8-7.7 [facility] Comment on above: Performed By: #### P HOS, BMP, MG #### [address] Neutrophils/100 WBC (Bld) 54.3 % Normal . [facility] Comment on above: Performed By: #### P HOS, BMP, MG #### [facility] [address] NRBC% 0.1 /100{WBC} Normal 0-0.5 [facility] Comment on above: Performed By: #### P HOS, BMP, MG #### [facility] [address] Platelet mean volume (Bld) [Entitic vol] 8.7 fL Normal 6.3-10.7 [facility] Comment on above: Performed By: #### P HOS, BMP, MG #### [facility] [address] [place] [address] [place] Platelets (Bld) [#/Vol] 240 10*3/uL Normal 150-450 [facility] Comment on above: Performed By: #### P HOS, BMP, MG #### [facility] [address] [place] [address] [place] RBC (Bld) [#/Vol] 4.64 10*6/uL Normal 3.60-5.00 [facility] Comment on above: Performed By: #### P HOS, BMP, MG #### [facility] [address] [place] [address] [place] WBC (Bld) [#/Vol] 4.1 10*3/uL Normal 3.8-11.6 [facility] Comment on above: Performed By: #### P HOS, BMP, MG #### [facility] [address] [place] [address] [place] Eosinophils Auto (Bld) [#/Vo l]Ordered By: Wesley Bunting on 05-01-2024 Eosinophils (Bld) [#/Vol] Automated eosinophil count 0.0-0.45 [facility] Eosinophils/100 WBC Auto (Bl d)Ordered By: Wesley Bunting on 05-01-2024 Eosinophils/100 WBC (Bld) Automated eosinophil % . [facility] Erythrocyte distribution wid th Auto (RBC) [Ratio]Ordered By: Wesley Bunting on 05-01-2024 Erythrocyte distribution width (RBC) [Ratio] Erythrocyte distribution width [Ratio] by Automated count High 11.9-15.3 [facility] Hematocrit Auto (Bld) [Volum e fraction]Ordered By: Wesley Bunting on 05-01-2024 Hematocrit (Bld) [Volume fraction] Hematocrit [Volume Fraction] of Blood by Automated count 34.0-46.4 [facility] Hemoglobin [Mass/volume] in BloodOrdered By: Wesley Bunting on 05-01-2024 Hemoglobin (Bld) [Mass/Vol] Hemoglobin [Mass/volume] in Blood 11.8-15.4 [facility] Leukocytes [#/volume] correc jamil for nucleated erythrocytes in Blood by Automated counOrdered By: Wesley Bunting on 05-01-2024 WBC corrected for nucl RBC Auto (Bld) [#/Vol] Leukocytes [#/volume] corrected for nucleated erythrocytes in Blood by Automated coun 3.8-11.6 [facility] Lymphocytes Auto (Bld) [#/Vo l]Ordered By: Wesley Bunting on 05-01-2024 Lymphocytes (Bld) [#/Vol] Lymphocytes [#/volume] in Blood by Automated count 1.00-4.8 [facility] Lymphocytes/100 WBC Auto (Bl d)Ordered By: Wesley Bunting on 05-01-2024 Lymphocytes/100 WBC (Bld) Lymphocytes/100 leukocytes in Blood by Automated count . [facility] MCH Auto (RBC) [Entitic mass ]Ordered By: Wesley Bunting on 05-01-2024 MCH (RBC) [Entitic mass] MCH [Entitic mass] by Automated count 24.7-34.3 [facility] MCHC Auto (RBC) [Mass/Vol]Or dered By: Wesley Bunting on 05-01-2024 MCHC (RBC) [Mass/Vol] MCHC [Mass/volume] by Automated count 32.0-35.0 [facility] MCV Auto (RBC) [Entitic vol] Ordered By: Wesley Bunting on 05-01-2024 MCV (RBC) [Entitic vol] MCV [Entitic volume] by Automated count 80-100 [facility] Monocytes Auto (Bld) [#/Vol] Ordered By: Wesley Bunting on 05-01-2024 Monocytes (Bld) [#/Vol] Automated blood monocyte count 0.0-0.8 [facility] Monocytes/100 WBC Auto (Bld) Ordered By: Wesley Bunting on 05-01-2024 Monocytes/100 WBC (Bld) Automated monocyte % . [facility] Neutrophils Auto (Bld) [#/Vo l]Ordered By: Wesley Bunting on 05-01-2024 Neutrophils (Bld) [#/Vol] Neutrophils [#/volume] in Blood by Automated count 1.8-7.7 [facility] Neutrophils/100 WBC Auto (Bl d)Ordered By: Wesley Bunting on 05-01-2024 Neutrophils/100 WBC (Bld) Automated neutrophil % . [facility] Nucleated erythrocytes [Pres ence] in Blood by Automated countOrdered By: Wesley Bunting on 05-01-2024 Nucleated RBC Auto Ql (Bld) Nucleated erythrocytes [Presence] in Blood by Automated count 0-0.5 [facility] Platelet mean volume Auto (B ld) [Entitic vol]Ordered By: Wesley Bunting on 05-01-2024 Platelet mean volume (Bld) [Entitic vol] Platelet mean volume [Entitic volume] in Blood by Automated count 6.3-10.7 [facility] Platelets Auto (Bld) [#/Vol] Ordered By: Wesley Bunting on 05-01-2024 Platelets (Bld) [#/Vol] Platelets [#/volume] in Blood by Automated count 150-450 [facility] RBC Auto (Bld) [#/Vol]Ordere d By: Wesley Bunting on 05-01-2024 RBC (Bld) [#/Vol] Erythrocytes [#/volu me] in Blood by Automated count 3.60-5.00 [facility] WBC Auto (Bld) [#/Vol]Ordere d By: Wesley Bunting on 05-01-2024 WBC (Bld) [#/Vol] Leukocytes [#/volume ] in Blood by Automated count 3.8-11.6 [facility] Alanine aminotransferase [En zymatic activity/volume] in Serum or PlasmaOrdered By: Kb Tavares on 04-18-2024 ALT [Catalytic activity/Vol] Alanine aminotransferase [Enzymatic activity/volume] in Serum or Plasma 7-52 [facility] Albumin [Mass/volume] in Ser um or Plasma by Bromocresol green (BCG) dye binding methoOrdered By: Kb Tavares on 04-18-2024 Albumin BCG dye [Mass/Vol] Albumin [Mass/volume] in Serum or Plasma by Bromocresol green (BCG) dye binding metho Low 3.5-5.7 [facility] Alkaline phosphatase [Enzyma tic activity/volume] in Serum or PlasmaOrdered By: Kb Tavares on 04-18-2024 ALP [Catalytic activity/Vol] Alkaline phosphatase [Enzymatic activity/volume] in Serum or Plasma 34-104 [facility] Aspartate aminotransferase [ Enzymatic activity/volume] in Serum or PlasmaOrdered By: Kb Tavares on 04-18-2024 AST [Catalytic activity/Vol] Aspartate aminotransferase [Enzymatic activity/volume] in Serum or Plasma 13-39 [facility] Basophils Auto (Bld) [#/Vol] Ordered By: Kb Tavares on 04-18-2024 Basophils (Bld) [#/Vol] Automated basophil count 0.0-0.2 [facility] Basophils/100 WBC Auto (Bld) Ordered By: Kb Tavares on 04-18-2024 Basophils/100 WBC (Bld) Automated basophil % . [facility] Bilirubin.total [Mass/volume ] in Serum or PlasmaOrdered By: Kb Tavares on 04-18-2024 Bilirubin [Mass/Vol] Bilirubin.total [Mass/volume] in Serum or Plasma 0.3-1.0 [facility] Calcium [Mass/volume] in Ser um or PlasmaOrdered By: Kb Tavares 04-18-2024 Calcium [Mass/Vol] Calcium [Mass/volume ] in Serum or Plasma Low 8.6-10.3 [facility] Carbon dioxide, total [Moles /volume] in Serum or PlasmaOrdered By: Kb Tavares 04-18-2024 CO2 [Moles/Vol] Carbon dioxide, tota l [Moles/volume] in Serum or Plasma 21.0-31.0 [facility] Chloride [Moles/volume] in S live or PlasmaOrdered By: Kb Tavares on 04-18-2024 Chloride [Moles/Vol] Chloride [Moles/vol ume] in Serum or Plasma High 98-107 [facility] Complete Blood Count Auto Di ffon 04-18-2024 Basophils (Bld) [#/Vol] 0.1 10*3/uL Normal 0.0-0.2 [facility] Comment on above: Result Comment: PERF ORMED BY: [place] [address] PATHOLOGIST SH[employer] CLEANER SELIN HOYT M.D. Performed By: #### P HOS, BMP, MG #### [address] Basophils/100 WBC (Bld) 1.2 % Normal . [facility] Comment on above: Performed By: #### P HOS, BMP, MG #### [address] Eosinophils (Bld) [#/Vol] 0.3 10*3/uL Normal 0.0-0.45 [facility] Comment on above: Performed By: #### P HOS, BMP, MG #### [address] Eosinophils/100 WBC (Bld) 5.7 % Normal . [facility] Comment on above: Performed By: #### P HOS, BMP, MG #### [address] Erythrocyte distribution width (RBC) [Ratio] 15.1 % Normal 11.9-15.3 [facility] Comment on above: Performed By: #### P HOS, BMP, MG #### [address] Hematocrit (Bld) [Volume fraction] 43.9 % Normal 34.0-46.4 [facility] Comment on above: Performed By: #### P HOS, BMP, MG #### [address] Hemoglobin (Bld) [Mass/Vol] 14.4 g/dL Normal 11.8-15.4 [facility] Comment on above: Performed By: #### P HOS, BMP, MG #### [address] Lymphocytes (Bld) [#/Vol] 1.3 10*3/uL Normal 1.00-4.8 [facility] Comment on above: Performed By: #### P HOS, BMP, MG #### [address] Lymphocytes/100 WBC (Bld) 24.6 % Normal . [facility] Comment on above: Performed By: #### P HOS, BMP, MG #### [address] MCH (RBC) [Entitic mass] 30.7 pg Normal 24.7-34.3 [facility] Comment on above: Performed By: #### P HOS, BMP, MG #### [address] MCV (RBC) [Entitic vol] 93.4 fL Normal 80-100 [facility] Comment on above: Performed By: #### P HOS, BMP, MG #### [address] Mean Corpuscular HGB Conc 32.9 g/dL Normal 32.0-35.0 [facility] Comment on above: Performed By: #### P HOS, BMP, MG #### [address] Monocytes (Bld) [#/Vol] 0.6 10*3/uL Normal 0.0-0.8 [facility] Comment on above: Performed By: #### P HOS, BMP, MG #### [place] [address] [place] Monocytes/100 WBC (Bld) 11.2 % Normal . [facility] Comment on above: Performed By: #### P HOS, BMP, MG #### [address] Neutrophils (Bld) [#/Vol] 3.1 10*3/uL Normal 1.8-7.7 [facility] Comment on above: Performed By: #### P HOS, BMP, MG #### [address] Neutrophils/100 WBC (Bld) 57.3 % Normal . [facility] Comment on above: Performed By: #### P HOS, BMP, MG #### [facility] [address] [place] [address] NRBC% 0.3 /100{WBC} Normal 0-0.5 [facility] Comment on above: Performed By: #### P HOS, BMP, MG #### [address] Platelet mean volume (Bld) [Entitic vol] 8.6 fL Normal 6.3-10.7 [facility] Comment on above: Performed By: #### P HOS, BMP, MG #### [address] Platelets (Bld) [#/Vol] 146 10*3/uL Low 150-450 [facility] Comment on above: Performed By: #### P HOS, BMP, MG #### [address] RBC (Bld) [#/Vol] 4.69 10*6/uL Normal 3.60-5.00 [facility] Comment on above: Performed By: #### P HOS, BMP, MG #### [address] WBC (Bld) [#/Vol] 5.3 10*3/uL Normal 3.8-11.6 [facility] Comment on above: Performed By: #### P HOS, BMP, MG #### [address] Comprehensive Metabolic Pane tee 04-18-2024 Albumin [Mass/Vol] 3.2 g/dL Low 3.5-5.7 [facility] Comment on above: Performed By: #### P HOS, BMP, MG #### [address] Albumin/Globulin [Mass ratio] 1.7 {ratio} Normal [facility] Comment on above: Performed By: #### P HOS, BMP, MG #### [address] ALP [Catalytic activity/Vol] 67 U/L Normal 34-104 [facility] Comment on above: Performed By: #### P HOS, BMP, MG #### [address] ALT [Catalytic activity/Vol] 14 U/L Normal 7-52 [facility] Comment on above: Performed By: #### P HOS, BMP, MG #### [address] Anion gap [Moles/Vol] 13.0 mmol/L Normal 6.0-15.0 [facility] Comment on above: Performed By: #### P HOS, BMP, MG #### [address] AST [Catalytic activity/Vol] 24 U/L Normal 13-39 [facility] Comment on above: Performed By: #### P HOS, BMP, MG #### [address] Bilirubin [Mass/Vol] 1.0 mg/dL Normal 0.3-1.0 [facility] Comment on above: Performed By: #### P HOS, BMP, MG #### [place] [address] [place] Calcium [Mass/Vol] 8.3 mg/dL Low 8.6-10.3 [facility] Comment on above: Performed By: #### P HOS, BMP, MG #### [place] [address] [place] Chloride [Moles/Vol] 108 mmol/L High 98-107 [facility] Comment on above: Performed By: #### P HOS, BMP, MG #### [place] [address] [place] CO2 [Moles/Vol] 22.9 mmol/L Normal 21.0-31.0 [facility] Comment on above: Performed By: #### P HOS, BMP, MG #### [address] Creatinine [Mass/Vol] 0.95 mg/dL Normal 0.60-1.20 [facility] Comment on above: Performed By: #### P HOS, BMP, MG #### [place] [address] [place] Creatinine Clr Calc Pharmacy 57.68 Normal [facility] Comment on above: Result Comment: PERF ORMED BY: [place] [address] PATHOLOGIST [employer] SELIN HOYT M.D. Performed By: #### P HOS, BMP, MG #### [address] GFR/1.73 sq M.predicted MDRD (S/P/Bld) [Vol rate/Area] mL/min/{1.73_m2} Normal [facility] Comment on above: Performed By: #### P HOS, BMP, MG #### [address] Globulin (S) [Mass/Vol] 1.9 g/dL Normal [facility] Comment on above: Performed By: #### P HOS, BMP, MG #### [address] Glucose [Mass/Vol] 100 mg/dL Normal 70-100 [facility] Comment on above: Result Comment: [place] Glucose Reference Range is dependent on time and content of last meal. Glucose of more than 200 mg/dL in a nonstressed, ambulatory subject supports the diagnosis of Diabetes Mellitus. ADA recommended reference range Performed By: #### P HOS, BMP, MG #### [address] Potassium [Moles/Vol] 3.9 mmol/L Normal 3.5-5.1 [facility] Comment on above: Performed By: #### P HOS, BMP, MG #### [facility] [address] [place] [address] [place] Protein [Mass/Vol] 5.1 g/dL Low 6.4-8.9 [facility] Comment on above: Performed By: #### P HOS, BMP, MG #### [facility] [address] [place] [address] [place] Sodium [Moles/Vol] 140 mmol/L Normal 136-145 [facility] Comment on above: Performed By: #### P HOS, BMP, MG #### [facility] [address] Urea nitrogen [Mass/Vol] 5 mg/dL Low 7-25 [facility] Comment on above: Performed By: #### P HOS, BMP, MG #### [facility] [address] [place] [address] [place] Creatinine [Mass/volume] in Serum or PlasmaOrdered By: Kb Tavares on 04-18-2024 Creatinine [Mass/Vol] Creatinine [Mass/v olume] in Serum or Plasma 0.60-1.20 [facility] Eosinophils Auto (Bld) [#/Vo l]Ordered By: Kb Tavares on 04-18-2024 Eosinophils (Bld) [#/Vol] Automated eosinophil count 0.0-0.45 [facility] Eosinophils/100 WBC Auto (Bl d)Ordered By: Kb Tavares on 04-18-2024 Eosinophils/100 WBC (Bld) Automated eosinophil % . [facility] Erythrocyte distribution wid th Auto (RBC) [Ratio]Ordered By: Kb Tavares on 04-18-2024 Erythrocyte distribution width (RBC) [Ratio] Erythrocyte distribution width [Ratio] by Automated count 11.9-15.3 [facility] Globulin Calc (S) [Mass/Vol] Ordered By: Kb Tavares on 04-18-2024 Globulin (S) [Mass/Vol] Serum globulin measurement by calculation (mass/volume) [facility] Glucose [Mass/volume] in Ser um or PlasmaOrdered By: Kb Tavares on 04-18-2024 Glucose [Mass/Vol] Glucose [Mass/volume ] in Serum or Plasma 70-100 [facility] Comment on above: ADA recommended refe rence rangeRandom Glucose Reference Range is dependent on time and content of last meal. Glucose of more than 200 mg/dL in a nonstressed, ambulatory subject supports the diagnosis of Diabetes Mellitus. Hematocrit Auto (Bld) [Volum e fraction]Ordered By: Kb Tavares on 04-18-2024 Hematocrit (Bld) [Volume fraction] Hematocrit [Volume Fraction] of Blood by Automated count 34.0-46.4 [facility] Hemoglobin [Mass/volume] in BloodOrdered By: Kb Tavares on 04-18-2024 Hemoglobin (Bld) [Mass/Vol] Hemoglobin [Mass/volume] in Blood 11.8-15.4 [facility] Leukocytes [#/volume] correc jamil for nucleated erythrocytes in Blood by Automated counOrdered By: Kb Tavares on 04-18-2024 WBC corrected for nucl RBC Auto (Bld) [#/Vol] Leukocytes [#/volume] corrected for nucleated erythrocytes in Blood by Automated coun 3.8-11.6 [facility] Lymphocytes Auto (Bld) [#/Vo l]Ordered By: Kb Tavares on 04-18-2024 Lymphocytes (Bld) [#/Vol] Lymphocytes [#/volume] in Blood by Automated count 1.00-4.8 [facility] Lymphocytes/100 WBC Auto (Bl d)Ordered By: Kb Tavares on 04-18-2024 Lymphocytes/100 WBC (Bld) Lymphocytes/100 leukocytes in Blood by Automated count . [facility] MCH Auto (RBC) [Entitic mass ]Ordered By: Kb Tavares on 04-18-2024 MCH (RBC) [Entitic mass] MCH [Entitic mass] by Automated count 24.7-34.3 [facility] MCHC Auto (RBC) [Mass/Vol]Or dered By: Kb Tavares on 04-18-2024 MCHC (RBC) [Mass/Vol] MCHC [Mass/volume] by Automated count 32.0-35.0 [facility] MCV Auto (RBC) [Entitic vol] Ordered By: Kb Tavares on 04-18-2024 MCV (RBC) [Entitic vol] MCV [Entitic volume] by Automated count 80-100 [facility] Monocytes Auto (Bld) [#/Vol] Ordered By: Kb Tavares on 04-18-2024 Monocytes (Bld) [#/Vol] Automated blood monocyte count 0.0-0.8 [facility] Monocytes/100 WBC Auto (Bld) Ordered By: Kb Tavares on 04-18-2024 Monocytes/100 WBC (Bld) Automated monocyte % . [facility] Neutrophils Auto (Bld) [#/Vo l]Ordered By: Kb Tavares on 04-18-2024 Neutrophils (Bld) [#/Vol] Neutrophils [#/volume] in Blood by Automated count 1.8-7.7 [facility] Neutrophils/100 WBC Auto (Bl d)Ordered By: Kb Tavares on 04-18-2024 Neutrophils/100 WBC (Bld) Automated neutrophil % . [facility] No Panel InformationOrdered By: Kb Tavares on 04-18-2024 Estimated GFR (CKD-EPI) > 60.0 mL/Min [facility] Creatinine Clearance (Chem 57.68 [facility] Nucleated erythrocytes [Pres ence] in Blood by Automated countOrdered By: Kb Tavares on 04-18-2024 Nucleated RBC Auto Ql (Bld) Nucleated erythrocytes [Presence] in Blood by Automated count 0-0.5 [facility] Platelet mean volume Auto (B ld) [Entitic vol]Ordered By: Kb Tavares on 04-18-2024 Platelet mean volume (Bld) [Entitic vol] Platelet mean volume [Entitic volume] in Blood by Automated count 6.3-10.7 [facility] Platelets Auto (Bld) [#/Vol] Ordered By: Kb Tavares on 04-18-2024 Platelets (Bld) [#/Vol] Platelets [#/volume] in Blood by Automated count Low 150-450 [facility] Potassium [Moles/volume] in Serum or PlasmaOrdered By: Kb Tavares on 04-18-2024 Potassium [Moles/Vol] Potassium [Moles/v olume] in Serum or Plasma 3.5-5.1 [facility] Protein [Mass/volume] in Ser um or PlasmaOrdered By: Kb Tavares on 04-18-2024 Protein [Mass/Vol] Protein [Mass/volume ] in Serum or Plasma Low 6.4-8.9 [facility] RBC Auto (Bld) [#/Vol]Ordere d By: Kb Tavares on 04-18-2024 RBC (Bld) [#/Vol] Erythrocytes [#/volu me] in Blood by Automated count 3.60-5.00 [facility] Serum or plasma albumin/glob ulin mass ratioOrdered By: Kb Tavares on 04-18-2024 Albumin/Globulin [Mass ratio] Serum or plasma albumin/globulin mass ratio [facility] Serum or plasma anion gap de terminationOrdered By: Kb Tavares on 04-18-2024 Anion gap [Moles/Vol] Serum or plasma an ion gap determination 6.0-15.0 [facility] Sodium [Moles/volume] in Ser um or PlasmaOrdered By: Kb Tavares on 04-18-2024 Sodium [Moles/Vol] Sodium [Moles/volume ] in Serum or Plasma 136-145 [facility] Urea nitrogen [Mass/volume] in Serum or PlasmaOrdered By: Kb Tavares on 04-18-2024 Urea nitrogen [Mass/Vol] Urea nitrogen [Mass/volume] in Serum or Plasma Low 7-25 [facility] WBC Auto (Bld) [#/Vol]Ordere d By: Kb Tavares on 04-18-2024 WBC (Bld) [#/Vol] Leukocytes [#/volume ] in Blood by Automated count 3.8-11.6 [facility] Basic Metabolic Panelon 04-04 Anion gap [Moles/Vol] 6.3 mmol/L Normal 6.0-15.0 [facility] Comment on above: Performed By: #### P HOS, BMP, MG #### [facility] [address] [place] [address] [place] Calcium [Mass/Vol] 8.1 mg/dL Low 8.6-10.3 [facility] Comment on above: Performed By: #### P HOS, BMP, MG #### [facility] [address] [place] [address] [place] Chloride [Moles/Vol] 107 mmol/L Normal 98-107 [facility] Comment on above: Performed By: #### P HOS, BMP, MG #### [facility] [address] CO2 [Moles/Vol] 26.6 mmol/L Normal 21.0-31.0 [facility] Comment on above: Performed By: #### P HOS, BMP, MG #### [facility] [address] [place] [address] [place] Creatinine [Mass/Vol] 0.90 mg/dL Normal 0.60-1.20 [facility] Comment on above: Performed By: #### P HOS, BMP, MG #### [facility] [address] [place] [address] [place] Creatinine Clr Calc Pharmacy 60.68 Normal [facility] Comment on above: Result Comment: PERF ORMED BY: [place] [address] PATHOLOGIST [employer] CLE[employer]ER SELIN HOYT M.D. Performed By: #### P HOS, BMP, MG #### [place] [address] [place] GFR/1.73 sq M.predicted MDRD (S/P/Bld) [Vol rate/Area] mL/min/{1.73_m2} Normal [facility] Comment on above: Performed By: #### P HOS, BMP, MG #### [facility] [address] [place] [address] [place] Glucose [Mass/Vol] 97 mg/dL Normal 70-100 [facility] Comment on above: Result Comment: [place] Glucose Reference Range is dependent on time and content of last meal. Glucose of more than 200 mg/dL in a nonstressed, ambulatory subject supports the diagnosis of Diabetes Mellitus. ADA recommended reference range Performed By: #### P HOS, BMP, MG #### [facility] [address] [place] [address] [place] Potassium [Moles/Vol] 3.9 mmol/L Normal 3.5-5.1 [facility] Comment on above: Performed By: #### P HOS, BMP, MG #### [address] Sodium [Moles/Vol] 136 mmol/L Normal 136-145 [facility] Comment on above: Performed By: #### P HOS, BMP, MG #### [address] Urea nitrogen [Mass/Vol] 7 mg/dL Normal 7-25 [facility] Comment on above: Performed By: #### P HOS, BMP, MG #### [address] Complete Blood Count Auto Di ffon 04-17-2024 Basophils (Bld) [#/Vol] 0.0 10*3/uL Normal 0.0-0.2 [facility] Comment on above: Order Comment: BLOOD Result Comment: PERF ORMED BY: [place] [address] PATHOLOGIST [employer] CLE[employer] SELIN HOYT M.D. Performed By: #### P T, MG, HS TROP, CBC, HEPATIC, BMP, CK, PHOS, BNP #### [address] Basophils/100 WBC (Bld) 0.9 % Normal . [facility] Comment on above: Order Comment: BLOOD Performed By: #### P T, MG, HS TROP, CBC, HEPATIC, BMP, CK, PHOS, BNP #### [address] Eosinophils (Bld) [#/Vol] 0.2 10*3/uL Normal 0.0-0.45 [facility] Comment on above: Order Comment: BLOOD Performed By: #### P T, MG, HS TROP, CBC, HEPATIC, BMP, CK, PHOS, BNP #### [address] Eosinophils/100 WBC (Bld) 4.2 % Normal . [facility] Comment on above: Order Comment: BLOOD Performed By: #### P T, MG, HS TROP, CBC, HEPATIC, BMP, CK, PHOS, BNP #### [address] Erythrocyte distribution width (RBC) [Ratio] 15.2 % Normal 11.9-15.3 [facility] Comment on above: Order Comment: BLOOD Performed By: #### P T, MG, HS TROP, CBC, HEPATIC, BMP, CK, PHOS, BNP #### [address] Hematocrit (Bld) [Volume fraction] 42.5 % Normal 34.0-46.4 [facility] Comment on above: Order Comment: BLOOD Performed By: #### P T, MG, HS TROP, CBC, HEPATIC, BMP, CK, PHOS, BNP #### [address] Hemoglobin (Bld) [Mass/Vol] 14.2 g/dL Normal 11.8-15.4 [facility] Comment on above: Order Comment: BLOOD Performed By: #### P T, MG, HS TROP, CBC, HEPATIC, BMP, CK, PHOS, BNP #### [address] Lymphocytes (Bld) [#/Vol] 0.8 10*3/uL Low 1.00-4.8 [facility] Comment on above: Order Comment: BLOOD Performed By: #### P T, MG, HS TROP, CBC, HEPATIC, BMP, CK, PHOS, BNP #### [address] Lymphocytes/100 WBC (Bld) 16.5 % Normal . [facility] Comment on above: Order Comment: BLOOD Performed By: #### P T, MG, HS TROP, CBC, HEPATIC, BMP, CK, PHOS, BNP #### [address] MCH (RBC) [Entitic mass] 30.9 pg Normal 24.7-34.3 [facility] Comment on above: Order Comment: BLOOD Performed By: #### P T, MG, HS TROP, CBC, HEPATIC, BMP, CK, PHOS, BNP #### [address] MCV (RBC) [Entitic vol] 92.7 fL Normal 80-100 [facility] Comment on above: Order Comment: BLOOD Performed By: #### P T, MG, HS TROP, CBC, HEPATIC, BMP, CK, PHOS, BNP #### [address] Mean Corpuscular HGB Conc 33.4 g/dL Normal 32.0-35.0 [facility] Comment on above: Order Comment: BLOOD Performed By: #### P T, MG, HS TROP, CBC, HEPATIC, BMP, CK, PHOS, BNP #### [address] Monocytes (Bld) [#/Vol] 0.3 10*3/uL Normal 0.0-0.8 [facility] Comment on above: Order Comment: BLOOD Performed By: #### P T, MG, HS TROP, CBC, HEPATIC, BMP, CK, PHOS, BNP #### [address] Monocytes/100 WBC (Bld) 6.0 % Normal . [facility] Comment on above: Order Comment: BLOOD Performed By: #### P T, MG, HS TROP, CBC, HEPATIC, BMP, CK, PHOS, BNP #### [address] Neutrophils (Bld) [#/Vol] 3.6 10*3/uL Normal 1.8-7.7 [facility] Comment on above: Order Comment: BLOOD Performed By: #### P T, MG, HS TROP, CBC, HEPATIC, BMP, CK, PHOS, BNP #### [address] Neutrophils/100 WBC (Bld) 72.4 % Normal . [facility] Comment on above: Order Comment: BLOOD Performed By: #### P T, MG, HS TROP, CBC, HEPATIC, BMP, CK, PHOS, BNP #### [address] [address] [place] NRBC% 0.2 /100{WBC} Normal 0-0.5 [facility] Comment on above: Order Comment: BLOOD Performed By: #### P T, MG, HS TROP, CBC, HEPATIC, BMP, CK, PHOS, BNP #### [address] Platelet mean volume (Bld) [Entitic vol] 9.3 fL Normal 6.3-10.7 [facility] Comment on above: Order Comment: BLOOD Performed By: #### P T, MG, HS TROP, CBC, HEPATIC, BMP, CK, PHOS, BNP #### [address] Platelets (Bld) [#/Vol] 170 10*3/uL Normal 150-450 [facility] Comment on above: Order Comment: BLOOD Performed By: #### P T, MG, HS TROP, CBC, HEPATIC, BMP, CK, PHOS, BNP #### [address] RBC (Bld) [#/Vol] 4.58 10*6/uL Normal 3.60-5.00 [facility] Comment on above: Order Comment: BLOOD Performed By: #### P T, MG, HS TROP, CBC, HEPATIC, BMP, CK, PHOS, BNP #### [address] WBC (Bld) [#/Vol] 4.9 10*3/uL Normal 3.8-11.6 [facility] Comment on above: Order Comment: BLOOD Performed By: #### P T, MG, HS TROP, CBC, HEPATIC, BMP, CK, PHOS, BNP #### [address] Comprehensive Metabolic Pane tee 04-17-2024 Albumin [Mass/Vol] 3.3 g/dL Low 3.5-5.7 [facility] Comment on above: Order Comment: BLOOD Performed By: #### P T, MG, HS TROP, CBC, HEPATIC, BMP, CK, PHOS, BNP #### [address] Albumin/Globulin [Mass ratio] 1.7 {ratio} Normal [facility] Comment on above: Order Comment: BLOOD Performed By: #### P T, MG, HS TROP, CBC, HEPATIC, BMP, CK, PHOS, BNP #### [address] ALP [Catalytic activity/Vol] 63 U/L Normal 34-104 [facility] Comment on above: Order Comment: BLOOD Performed By: #### P T, MG, HS TROP, CBC, HEPATIC, BMP, CK, PHOS, BNP #### [address] [address] ALT [Catalytic activity/Vol] 17 U/L Normal 7-52 [facility] Comment on above: Order Comment: BLOOD Performed By: #### P T, MG, HS TROP, CBC, HEPATIC, BMP, CK, PHOS, BNP #### [address] Anion gap [Moles/Vol] 7.1 mmol/L Normal 6.0-15.0 [facility] Comment on above: Order Comment: BLOOD Performed By: #### P T, MG, HS TROP, CBC, HEPATIC, BMP, CK, PHOS, BNP #### [address] AST [Catalytic activity/Vol] 32 U/L Normal 13-39 [facility] Comment on above: Order Comment: BLOOD Performed By: #### P T, MG, HS TROP, CBC, HEPATIC, BMP, CK, PHOS, BNP #### [address] Bilirubin [Mass/Vol] 1.0 mg/dL Normal 0.3-1.0 [facility] Comment on above: Order Comment: BLOOD Performed By: #### P T, MG, HS TROP, CBC, HEPATIC, BMP, CK, PHOS, BNP #### [address] Calcium [Mass/Vol] 8.2 mg/dL Low 8.6-10.3 [facility] Comment on above: Order Comment: BLOOD Performed By: #### P T, MG, HS TROP, CBC, HEPATIC, BMP, CK, PHOS, BNP #### [facility] [address] Chloride [Moles/Vol] 104 mmol/L Normal 98-107 [facility] Comment on above: Order Comment: BLOOD Performed By: #### P T, MG, HS TROP, CBC, HEPATIC, BMP, CK, PHOS, BNP #### [address] CO2 [Moles/Vol] 30.3 mmol/L Normal 21.0-31.0 [facility] Comment on above: Order Comment: BLOOD Performed By: #### P T, MG, HS TROP, CBC, HEPATIC, BMP, CK, PHOS, BNP #### [address] Creatinine [Mass/Vol] 1.02 mg/dL Normal 0.60-1.20 [facility] Comment on above: Order Comment: BLOOD Performed By: #### P T, MG, HS TROP, CBC, HEPATIC, BMP, CK, PHOS, BNP #### [address] Creatinine Clr Calc Pharmacy 53.54 Normal [facility] Comment on above: Order Comment: BLOOD Performed By: #### P T, MG, HS TROP, CBC, HEPATIC, BMP, CK, PHOS, BNP #### [address] Estimated GFR 57.015 mL/Min Normal [facility] Comment on above: Order Comment: BLOOD Performed By: #### P T, MG, HS TROP, CBC, HEPATIC, BMP, CK, PHOS, BNP #### [address] Globulin (S) [Mass/Vol] 2.0 g/dL Normal [facility] Comment on above: Order Comment: BLOOD Performed By: #### P T, MG, HS TROP, CBC, HEPATIC, BMP, CK, PHOS, BNP #### [facility] [address] Glucose [Mass/Vol] 168 mg/dL High 70-100 [facility] Comment on above: Order Comment: BLOOD Result Comment: [facility] Glucose Reference Range is dependent on time and content of last meal. Glucose of more than 200 mg/dL in a nonstressed, ambulatory subject supports the diagnosis of Diabetes Mellitus. ADA recommended reference range Performed By: #### P T, MG, HS TROP, CBC, HEPATIC, BMP, CK, PHOS, BNP #### [address] Potassium [Moles/Vol] 3.4 mmol/L Low 3.5-5.1 [facility] Comment on above: Order Comment: BLOOD Result Comment: Hemo lysis is present at a level that could interfere with the result. Contact lab if redraw is required Performed By: #### P T, MG, HS TROP, CBC, HEPATIC, BMP, CK, PHOS, BNP #### [address] Protein [Mass/Vol] 5.3 g/dL Low 6.4-8.9 [facility] Comment on above: Order Comment: BLOOD Performed By: #### P T, MG, HS TROP, CBC, HEPATIC, BMP, CK, PHOS, BNP #### [address] Sodium [Moles/Vol] 138 mmol/L Normal 136-145 [facility] Comment on above: Order Comment: BLOOD Performed By: #### P T, MG, HS TROP, CBC, HEPATIC, BMP, CK, PHOS, BNP #### [place] [address] [place] Urea nitrogen [Mass/Vol] 5 mg/dL Low 7-25 [facility] Comment on above: Order Comment: BLOOD Performed By: #### P T, MG, HS TROP, CBC, HEPATIC, BMP, CK, PHOS, BNP #### [place] [address] [place] Phosphate [Mass/volume] in S live or PlasmaOrdered By: Kb Tavares on 04-17-2024 Phosphate [Mass/Vol] Phosphate [Mass/vol ume] in Serum or Plasma Low 2.5-4.5 [facility] Phosphoruson 04-17-2024 Phosphate [Mass/Vol] 2.1 mg/dL Low 2.5-4.5 [facility] Comment on above: Order Comment: BLOOD Result Comment: PERF ORMED BY: [place] [address] PATHOLOGIST SHOE CLEANER SELIN HOYT M.D. Performed By: #### P T, MG, HS TROP, CBC, HEPATIC, BMP, CK, PHOS, BNP #### [address] Basic Metabolic Panelon 04-04 Anion gap [Moles/Vol] 7.3 mmol/L Normal 6.0-15.0 [facility] Comment on above: Performed By: #### P HOS, BMP, MG #### [address] Calcium [Mass/Vol] 8.7 mg/dL Normal 8.6-10.3 [facility] Comment on above: Performed By: #### P HOS, BMP, MG #### [place] [address] [place] Chloride [Moles/Vol] 100 mmol/L Normal 98-107 [facility] Comment on above: Performed By: #### P HOS, BMP, MG #### [address] CO2 [Moles/Vol] 33.0 mmol/L High 21.0-31.0 [facility] Comment on above: Performed By: #### P HOS, BMP, MG #### [address] Creatinine [Mass/Vol] 1.19 mg/dL Normal 0.60-1.20 [facility] Comment on above: Performed By: #### P HOS, BMP, MG #### [address] Creatinine Clr Calc Pharmacy 44.93 Normal [facility] Comment on above: Result Comment: PERF ORMED BY: [place] [address] PATHOLOGIST SHOE CLEANER SELIN HOYT M.D. Performed By: #### P HOS, BMP, MG #### [address] Estimated GFR 47.387 mL/Min Normal [facility] Comment on above: Performed By: #### P HOS, BMP, MG #### [address] Glucose [Mass/Vol] 89 mg/dL Normal 70-100 [facility] Comment on above: Result Comment: [facility] Glucose Reference Range is dependent on time and content of last meal. Glucose of more than 200 mg/dL in a nonstressed, ambulatory subject supports the diagnosis of Diabetes Mellitus. ADA recommended reference range Performed By: #### P HOS, BMP, MG #### [address] Potassium [Moles/Vol] 3.3 mmol/L Low 3.5-5.1 [facility] Comment on above: Result Comment: Hemo lysis is present at a level that could interfere with the result. Contact lab if redraw is required Performed By: #### P HOS, BMP, MG #### [address] Sodium [Moles/Vol] 137 mmol/L Normal 136-145 [facility] Comment on above: Performed By: #### P HOS, BMP, MG #### [address] Urea nitrogen [Mass/Vol] 10 mg/dL Normal 7-25 [facility] Comment on above: Performed By: #### P HOS, BMP, MG #### [address] Complete Blood Count Auto Di ffon 02-13-2025 Basophils (Bld) [#/Vol] 0.0 10*3/uL Normal 0.0-0.2 [facility] Comment on above: Result Comment: PERF ORMED BY: [place] [address] PATHOLOGIST SHOE CLEANER SELIN HOYT M.D. Performed By: #### P T, MG, HS TROP, CBC, HEPATIC, BMP, CK, PHOS, BNP #### [address] Basophils/100 WBC (Bld) 0.8 % Normal . [facility] Comment on above: Performed By: #### P T, MG, HS TROP, CBC, HEPATIC, BMP, CK, PHOS, BNP #### [address] Eosinophils (Bld) [#/Vol] 0.3 10*3/uL Normal 0.0-0.45 [facility] Comment on above: Performed By: #### P T, MG, HS TROP, CBC, HEPATIC, BMP, CK, PHOS, BNP #### [address] Eosinophils/100 WBC (Bld) 5.4 % Normal . [facility] Comment on above: Performed By: #### P T, MG, HS TROP, CBC, HEPATIC, BMP, CK, PHOS, BNP #### [address] Erythrocyte distribution width (RBC) [Ratio] 14.9 % Normal 11.9-15.3 [facility] Comment on above: Performed By: #### P T, MG, HS TROP, CBC, HEPATIC, BMP, CK, PHOS, BNP #### [address] Hematocrit (Bld) [Volume fraction] 40.2 % Normal 34.0-46.4 [facility] Comment on above: Performed By: #### P T, MG, HS TROP, CBC, HEPATIC, BMP, CK, PHOS, BNP #### [address] [address] [place] Hemoglobin (Bld) [Mass/Vol] 13.6 g/dL Normal 11.8-15.4 [facility] Comment on above: Performed By: #### P T, MG, HS TROP, CBC, HEPATIC, BMP, CK, PHOS, BNP #### [address] Lymphocytes (Bld) [#/Vol] 1.1 10*3/uL Normal 1.00-4.8 [facility] Comment on above: Performed By: #### P T, MG, HS TROP, CBC, HEPATIC, BMP, CK, PHOS, BNP #### [address] Lymphocytes/100 WBC (Bld) 24.2 % Normal . [facility] Comment on above: Performed By: #### P T, MG, HS TROP, CBC, HEPATIC, BMP, CK, PHOS, BNP #### [address] MCH (RBC) [Entitic mass] 31.1 pg Normal 24.7-34.3 [facility] Comment on above: Performed By: #### P T, MG, HS TROP, CBC, HEPATIC, BMP, CK, PHOS, BNP #### [address] MCV (RBC) [Entitic vol] 91.9 fL Normal 80-100 [facility] Comment on above: Performed By: #### P T, MG, HS TROP, CBC, HEPATIC, BMP, CK, PHOS, BNP #### [address] Mean Corpuscular HGB Conc 33.8 g/dL Normal 32.0-35.0 [facility] Comment on above: Performed By: #### P T, MG, HS TROP, CBC, HEPATIC, BMP, CK, PHOS, BNP #### [address] Monocytes (Bld) [#/Vol] 0.5 10*3/uL Normal 0.0-0.8 [facility] Comment on above: Performed By: #### P T, MG, HS TROP, CBC, HEPATIC, BMP, CK, PHOS, BNP #### [address] Monocytes/100 WBC (Bld) 10.4 % Normal . [facility] Comment on above: Performed By: #### P T, MG, HS TROP, CBC, HEPATIC, BMP, CK, PHOS, BNP #### [address] Neutrophils (Bld) [#/Vol] 2.8 10*3/uL Normal 1.8-7.7 [facility] Comment on above: Performed By: #### P T, MG, HS TROP, CBC, HEPATIC, BMP, CK, PHOS, BNP #### [address] Neutrophils/100 WBC (Bld) 59.2 % Normal . [facility] Comment on above: Performed By: #### P T, MG, HS TROP, CBC, HEPATIC, BMP, CK, PHOS, BNP #### [address] NRBC% 0.2 /100{WBC} Normal 0-0.5 [facility] Comment on above: Performed By: #### P T, MG, HS TROP, CBC, HEPATIC, BMP, CK, PHOS, BNP #### [address] Platelet mean volume (Bld) [Entitic vol] 9.2 fL Normal 6.3-10.7 [facility] Comment on above: Performed By: #### P T, MG, HS TROP, CBC, HEPATIC, BMP, CK, PHOS, BNP #### [address] Platelets (Bld) [#/Vol] 172 10*3/uL Normal 150-450 [facility] Comment on above: Performed By: #### P T, MG, HS TROP, CBC, HEPATIC, BMP, CK, PHOS, BNP #### [place] [address] RBC (Bld) [#/Vol] 4.37 10*6/uL Normal 3.60-5.00 [facility] Comment on above: Performed By: #### P T, MG, HS TROP, CBC, HEPATIC, BMP, CK, PHOS, BNP #### [address] WBC (Bld) [#/Vol] 4.7 10*3/uL Normal 3.8-11.6 [facility] Comment on above: Performed By: #### P T, MG, HS TROP, CBC, HEPATIC, BMP, CK, PHOS, BNP #### [address] Comprehensive Metabolic Pane tee 04-16-2024 Albumin [Mass/Vol] 3.0 g/dL Low 3.5-5.7 [facility] Comment on above: Performed By: #### P T, MG, HS TROP, CBC, HEPATIC, BMP, CK, PHOS, BNP #### [address] Albumin/Globulin [Mass ratio] 1.6 {ratio} Normal [facility] Comment on above: Performed By: #### P T, MG, HS TROP, CBC, HEPATIC, BMP, CK, PHOS, BNP #### [address] ALP [Catalytic activity/Vol] 62 U/L Normal 34-104 [facility] Comment on above: Performed By: #### P T, MG, HS TROP, CBC, HEPATIC, BMP, CK, PHOS, BNP #### [address] ALT [Catalytic activity/Vol] 13 U/L Normal 7-52 [facility] Comment on above: Performed By: #### P T, MG, HS TROP, CBC, HEPATIC, BMP, CK, PHOS, BNP #### [address] Anion gap [Moles/Vol] 6.4 mmol/L Normal 6.0-15.0 [facility] Comment on above: Performed By: #### P T, MG, HS TROP, CBC, HEPATIC, BMP, CK, PHOS, BNP #### [address] AST [Catalytic activity/Vol] 24 U/L Normal 13-39 [facility] Comment on above: Performed By: #### P T, MG, HS TROP, CBC, HEPATIC, BMP, CK, PHOS, BNP #### [address] Bilirubin [Mass/Vol] 1.0 mg/dL Normal 0.3-1.0 [facility] Comment on above: Performed By: #### P T, MG, HS TROP, CBC, HEPATIC, BMP, CK, PHOS, BNP #### [address] Calcium [Mass/Vol] 8.2 mg/dL Low 8.6-10.3 [facility] Comment on above: Performed By: #### P T, MG, HS TROP, CBC, HEPATIC, BMP, CK, PHOS, BNP #### [address] Chloride [Moles/Vol] 98 mmol/L Normal 98-107 [facility] Comment on above: Performed By: #### P T, MG, HS TROP, CBC, HEPATIC, BMP, CK, PHOS, BNP #### [address] CO2 [Moles/Vol] 34.4 mmol/L High 21.0-31.0 [facility] Comment on above: Performed By: #### P T, MG, HS TROP, CBC, HEPATIC, BMP, CK, PHOS, BNP #### [address] Creatinine [Mass/Vol] 1.30 mg/dL High 0.60-1.20 [facility] Comment on above: Performed By: #### P T, MG, HS TROP, CBC, HEPATIC, BMP, CK, PHOS, BNP #### [address] Creatinine Clr Calc Pharmacy 41.13 Normal [facility] Comment on above: Result Comment: PERF ORMED BY: [place] [address] PATHOLOGIST SHOE CLEANER SELIN HOYT M.D. Performed By: #### P T, MG, HS TROP, CBC, HEPATIC, BMP, CK, PHOS, BNP #### [address] Estimated GFR 42.617 mL/Min Normal [facility] Comment on above: Performed By: #### P T, MG, HS TROP, CBC, HEPATIC, BMP, CK, PHOS, BNP #### [address] Globulin (S) [Mass/Vol] 1.9 g/dL Normal [facility] Comment on above: Performed By: #### P T, MG, HS TROP, CBC, HEPATIC, BMP, CK, PHOS, BNP #### [address] Glucose [Mass/Vol] 113 mg/dL High 70-100 [facility] Comment on above: Result Comment: [place] Glucose Reference Range is dependent on time and content of last meal. Glucose of more than 200 mg/dL in a nonstressed, ambulatory subject supports the diagnosis of Diabetes Mellitus. ADA recommended reference range Performed By: #### P T, MG, HS TROP, CBC, HEPATIC, BMP, CK, PHOS, BNP #### [address] Potassium [Moles/Vol] 2.8 mmol/L Off scale low 3.5-5.1 [facility] Comment on above: Result Comment: Crit ical Result Called to and read back by: HILARY AMATO/Jennifer at: 04/16/2024 08:07:18 by:[id number] Performed By: #### P T, MG, HS TROP, CBC, HEPATIC, BMP, CK, PHOS, BNP #### [address] Protein [Mass/Vol] 4.9 g/dL Low 6.4-8.9 [facility] Comment on above: Performed By: #### P T, MG, HS TROP, CBC, HEPATIC, BMP, CK, PHOS, BNP #### [address] Sodium [Moles/Vol] 136 mmol/L Normal 136-145 [facility] Comment on above: Performed By: #### P T, MG, HS TROP, CBC, HEPATIC, BMP, CK, PHOS, BNP #### [address] Urea nitrogen [Mass/Vol] 11 mg/dL Normal 7-25 [facility] Comment on above: Performed By: #### P T, MG, HS TROP, CBC, HEPATIC, BMP, CK, PHOS, BNP #### [address] Clostridioides difficile tox in B tcdB gene [Presence] in Stool by ABIODUN with probe deteOrdered By: Roberto Carlos Mohr on 04-15-2024 C. difficile toxin B tcdB gene ABIODUN+probe Ql (Stl) Clostridioides difficile toxin B tcdB gene [Presence] in Stool by ABIODUN with probe dete Negative [facility] Comment on above: Testing performed by RT-PCR Clostridium Difficileon 04-04 Clostridium Difficile Negative Normal Negative [facility] Comment on above: Order Comment: > or = to 3 loose/watery stools in the last 24 HRS? Y Is patient on promotility agents or tube feeding? N Result Comment: Test ing performed by RT-PCR PERFORMED BY: [place] [address] PATHOLOGIST SHOE CLEANER SELIN HOYT M.D. Performed By: #### C DT #### [address] Complete Blood Count Auto Di ffon 04-15-2024 Basophils (Bld) [#/Vol] 0.0 10*3/uL Normal 0.0-0.2 [facility] Comment on above: Result Comment: PERF ORMED BY: [place] [address] PATHOLOGIST SHOE CLEANER SELIN HOYT M.D. Performed By: #### C DT #### [address] Basophils/100 WBC (Bld) 0.8 % Normal . [facility] Comment on above: Performed By: #### C DT #### [address] Eosinophils (Bld) [#/Vol] 0.2 10*3/uL Normal 0.0-0.45 [facility] Comment on above: Performed By: #### C DT #### [address] Eosinophils/100 WBC (Bld) 4.6 % Normal . [facility] Comment on above: Performed By: #### C DT #### [address] Erythrocyte distribution width (RBC) [Ratio] 14.6 % Normal 11.9-15.3 [facility] Comment on above: Performed By: #### C DT #### [address] Hematocrit (Bld) [Volume fraction] 39.8 % Normal 34.0-46.4 [facility] Comment on above: Performed By: #### C DT #### [address] Hemoglobin (Bld) [Mass/Vol] 13.8 g/dL Normal 11.8-15.4 [facility] Comment on above: Performed By: #### C DT #### [address] Lymphocytes (Bld) [#/Vol] 1.0 10*3/uL Normal 1.00-4.8 [facility] Comment on above: Performed By: #### C DT #### [address] Lymphocytes/100 WBC (Bld) 19.5 % Normal . [facility] Comment on above: Performed By: #### C DT #### [address] MCH (RBC) [Entitic mass] 31.3 pg Normal 24.7-34.3 [facility] Comment on above: Performed By: #### C DT #### [address] MCV (RBC) [Entitic vol] 90.1 fL Normal 80-100 [facility] Comment on above: Performed By: #### C DT #### [address] Mean Corpuscular HGB Conc 34.7 g/dL Normal 32.0-35.0 [facility] Comment on above: Performed By: #### C DT #### [address] Monocytes (Bld) [#/Vol] 0.8 10*3/uL Normal 0.0-0.8 [facility] Comment on above: Performed By: #### C DT #### [address] Monocytes/100 WBC (Bld) 14.2 % Normal . [facility] Comment on above: Performed By: #### C DT #### [address] Neutrophils (Bld) [#/Vol] 3.2 10*3/uL Normal 1.8-7.7 [facility] Comment on above: Performed By: #### C DT #### [address] Neutrophils/100 WBC (Bld) 60.9 % Normal . [facility] Comment on above: Performed By: #### C DT #### [address] NRBC% 0.1 /100{WBC} Normal 0-0.5 [facility] Comment on above: Performed By: #### C DT #### [address] Platelet mean volume (Bld) [Entitic vol] 8.6 fL Normal 6.3-10.7 [facility] Comment on above: Performed By: #### C DT #### [address] Platelets (Bld) [#/Vol] 187 10*3/uL Normal 150-450 [facility] Comment on above: Performed By: #### C DT #### [address] RBC (Bld) [#/Vol] 4.41 10*6/uL Normal 3.60-5.00 [facility] Comment on above: Performed By: #### C DT #### [address] WBC (Bld) [#/Vol] 5.3 10*3/uL Normal 3.8-11.6 [facility] Comment on above: Performed By: #### C DT #### [address] Comprehensive Metabolic Pane tee 04-15-2024 Albumin [Mass/Vol] 3.2 g/dL Low 3.5-5.7 [facility] Comment on above: Performed By: #### C DT #### [address] Albumin/Globulin [Mass ratio] 1.6 {ratio} Normal [facility] Comment on above: Performed By: #### C DT #### [address] ALP [Catalytic activity/Vol] 67 U/L Normal 34-104 [facility] Comment on above: Performed By: #### C DT #### [address] ALT [Catalytic activity/Vol] 12 U/L Normal 7-52 [facility] Comment on above: Performed By: #### C DT #### [address] Anion gap [Moles/Vol] 8.9 mmol/L Normal 6.0-15.0 [facility] Comment on above: Performed By: #### C DT #### [address] AST [Catalytic activity/Vol] 30 U/L Normal 13-39 [facility] Comment on above: Performed By: #### C DT #### [address] Bilirubin [Mass/Vol] 1.4 mg/dL High 0.3-1.0 [facility] Comment on above: Result Comment: Samp les from patients who have taken Naproxen have shown spurious elevation in Total Bilirubin levels. A metabolite of Naproxen, O-desmethylnaproxen, has been shown to interfere with the Jendrassik-Grof method for measuring Total Bilirubin. Performed By: #### C DT #### [address] Calcium [Mass/Vol] 8.7 mg/dL Normal 8.6-10.3 [facility] Comment on above: Performed By: #### C DT #### [address] Chloride [Moles/Vol] 90 mmol/L Low 98-107 [facility] Comment on above: Performed By: #### C DT #### [address] CO2 [Moles/Vol] 37.8 mmol/L High 21.0-31.0 [facility] Comment on above: Performed By: #### C DT #### [address] Creatinine [Mass/Vol] 1.46 mg/dL High 0.60-1.20 [facility] Comment on above: Performed By: #### C DT #### [address] Creatinine Clr Calc Pharmacy 32.94 Normal [facility] Comment on above: Performed By: #### C DT #### [address] Estimated GFR 37.076 mL/Min Normal [facility] Comment on above: Performed By: #### C DT #### [address] Globulin (S) [Mass/Vol] 2.0 g/dL Normal [facility] Comment on above: Performed By: #### C DT #### [address] Glucose [Mass/Vol] 112 mg/dL High 70-100 [facility] Comment on above: Result Comment: [place] Glucose Reference Range is dependent on time and content of last meal. Glucose of more than 200 mg/dL in a nonstressed, ambulatory subject supports the diagnosis of Diabetes Mellitus. ADA recommended reference range Performed By: #### C DT #### [address] Potassium [Moles/Vol] 2.7 mmol/L Off scale low 3.5-5.1 [facility] Comment on above: Result Comment: Crit ical Result Called to and read back by: ZEESHAN OLMSTEAD/Jennifer at: 04/15/2024 08:40:11 by:[id number] Performed By: #### C DT #### [address] Protein [Mass/Vol] 5.2 g/dL Low 6.4-8.9 [facility] Comment on above: Performed By: #### C DT #### [address] Sodium [Moles/Vol] 134 mmol/L Low 136-145 [facility] Comment on above: Performed By: #### C DT #### [address] Urea nitrogen [Mass/Vol] 13 mg/dL Normal 7-25 [facility] Comment on above: Performed By: #### C DT #### [place] [id number] [facility] Magnesiumon 04-15-2024 Magnesium [Mass/Vol] 2.5 mg/dL Normal 1.9-2.7 [facility] Comment on above: Result Comment: PERF ORMED BY: [place] [address] PATHOLOGIST SHOE CLEANER SELIN HOYT M.D. Performed By: #### C DT #### [address] Magnesium [Mass/volume] in S live or PlasmaOrdered By: Kb Tavares on 04-15-2024 Magnesium [Mass/Vol] Magnesium [Mass/vol ume] in Serum or Plasma 1.9-2.7 [facility] Phosphoruson 04-15-2024 Phosphate [Mass/Vol] 2.5 mg/dL Normal 2.5-4.5 [facility] Comment on above: Performed By: #### C DT #### [address] Potassiumon 04-15-2024 Potassium [Moles/Vol] 2.1 mmol/L Off scale low 3.5-5.1 [facility] Comment on above: Result Comment: Crit ical Result Called to and read back by: EMELYN WADE at: 04/15/2024 01:46:47 by:[id number] PERFORMED BY: [place] [address] PATHOLOGIST SHOE CLEANER SELIN HOYT M.D. Performed By: #### P HOS, BMP, MG #### [facility] [address] [place] [address] Alanine aminotransferase [En zymatic activity/volume] in Serum or PlasmaOrdered By: Jeremiah Rodriguez on 04-14-2024 ALT [Catalytic activity/Vol] Alanine aminotransferase [Enzymatic activity/volume] in Serum or Plasma [facility] Albumin [Mass/volume] in Ser um or Plasma by Bromocresol green (BCG) dye binding methoOrdered By: Jeremiah Rodriguez on 04-14-2024 Albumin BCG dye [Mass/Vol] Albumin [Mass/volume] in Serum or Plasma by Bromocresol green (BCG) dye binding metho 3.5-5.7 [facility] Alkaline phosphatase [Enzyma tic activity/volume] in Serum or PlasmaOrdered By: Jeremiah Jennifer on 04-14-2024 ALP [Catalytic activity/Vol] Alkaline phosphatase [Enzymatic activity/volume] in Serum or Plasma 34-104 [facility] Appearance of UrineOrdered B y: Jeremiah Rodriguez on 04-14-2024 Appearance (U) Urine appearance Clear [facility] Aspartate aminotransferase [ Enzymatic activity/volume] in Serum or PlasmaOrdered By: Jeremiah Rodriguez on 04-14-2024 AST [Catalytic activity/Vol] Aspartate aminotransferase [Enzymatic activity/volume] in Serum or Plasma 13-39 [facility] B-Type Natriuretic Peptideon 04-14-2024 Natriuretic peptide B (Bld) [Mass/Vol] 171.0 pg/mL High 5-100 [facility] Comment on above: Result Comment: PERF ORMED BY: [place] [address] PATHOLOGIST SHOE CLEANER SELIN HOYT M.D. Performed By: #### P T, MG, HS TROP, CBC, HEPATIC, BMP, CK, PHOS, BNP #### [facility] [address] [place] [address] [place] Bacteria [Presence] in Urine by AutomatedOrdered By: Jeremiah Rodriguez on 04-14-2024 Bacteria Auto Ql (U) Bacteria [Presence] in Urine by Automated None Seen [facility] Basic Metabolic Panelon 04-04 Anion gap [Moles/Vol] 9.2 mmol/L Normal 6.0-15.0 [facility] Comment on above: Order Comment: PT ON MASK ISOLATION Performed By: #### P HOS, BMP, MG #### [facility] [address] [place] [address] [place] Calcium [Mass/Vol] 8.9 mg/dL Normal 8.6-10.3 [facility] Comment on above: Order Comment: PT ON MASK ISOLATION Performed By: #### P HOS, BMP, MG #### [facility] [address] [place] [address] [place] Chloride [Moles/Vol] 79 mmol/L Low 98-107 [facility] Comment on above: Order Comment: PT ON MASK ISOLATION Performed By: #### P HOS, BMP, MG #### [facility] [address] CO2 [Moles/Vol] 45.0 mmol/L High 21.0-31.0 [facility] Comment on above: Order Comment: PT ON MASK ISOLATION Performed By: #### P HOS, BMP, MG #### [facility] [address] [place] [address] [place] Creatinine [Mass/Vol] 1.52 mg/dL High 0.60-1.20 [facility] Comment on above: Order Comment: PT ON MASK ISOLATION Performed By: #### P HOS, BMP, MG #### [place] [address] [place] Creatinine Clr Calc Pharmacy 31.86 Normal [facility] Comment on above: Order Comment: PT ON MASK ISOLATION Performed By: #### P HOS, BMP, MG #### [facility] [address] [place] [address] [place] Estimated GFR 35.326 mL/Min Normal [facility] Comment on above: Order Comment: PT ON MASK ISOLATION Performed By: #### P HOS, BMP, MG #### [place] [address] [place] Glucose [Mass/Vol] 114 mg/dL High 70-100 [facility] Comment on above: Order Comment: PT ON MASK ISOLATION Result Comment: [place] om Glucose Reference Range is dependent on time and content of last meal. Glucose of more than 200 mg/dL in a nonstressed, ambulatory subject supports the diagnosis of Diabetes Mellitus. ADA recommended reference range Performed By: #### P HOS, BMP, MG #### [facility] [address] Potassium [Moles/Vol] 2.2 mmol/L Off scale low 3.5-5.1 [facility] Comment on above: Order Comment: PT ON MASK ISOLATION Result Comment: Crit ical Result Called to and read back by: TAVO HERBERT at: 04/14/2024 18:46:16 by:[id number] Performed By: #### P HOS, BMP, MG #### [address] Sodium [Moles/Vol] 131 mmol/L Low 136-145 [facility] Comment on above: Order Comment: PT ON MASK ISOLATION Performed By: #### P HOS, BMP, MG #### [address] Urea nitrogen [Mass/Vol] 13 mg/dL Normal 7-25 [facility] Comment on above: Order Comment: PT ON MASK ISOLATION Performed By: #### P HOS, BMP, MG #### [address] Anion gap [Moles/Vol] 10.8 mmol/L Normal 6.0-15.0 [facility] Comment on above: Performed By: #### P T, MG, HS TROP, CBC, HEPATIC, BMP, CK, PHOS, BNP #### [address] Calcium [Mass/Vol] 9.3 mg/dL Normal 8.6-10.3 [facility] Comment on above: Performed By: #### P T, MG, HS TROP, CBC, HEPATIC, BMP, CK, PHOS, BNP #### [place] [address] [place] Chloride [Moles/Vol] 77 mmol/L Low 98-107 [facility] Comment on above: Performed By: #### P T, MG, HS TROP, CBC, HEPATIC, BMP, CK, PHOS, BNP #### [address] CO2 [Moles/Vol] 44.2 mmol/L High 21.0-31.0 [facility] Comment on above: Performed By: #### P T, MG, HS TROP, CBC, HEPATIC, BMP, CK, PHOS, BNP #### [place] [address] Creatinine [Mass/Vol] 1.70 mg/dL High 0.60-1.20 [facility] Comment on above: Performed By: #### P T, MG, HS TROP, CBC, HEPATIC, BMP, CK, PHOS, BNP #### [address] Creatinine Clr Calc Pharmacy 27.96 Normal [facility] Comment on above: Result Comment: PERF ORMED BY: [place] [address] PATHOLOGIST SHOE CLEANER SELIN HOYT M.D. Performed By: #### P T, MG, HS TROP, CBC, HEPATIC, BMP, CK, PHOS, BNP #### [address] Estimated GFR 30.887 mL/Min Normal [facility] Comment on above: Performed By: #### P T, MG, HS TROP, CBC, HEPATIC, BMP, CK, PHOS, BNP #### [address] Glucose [Mass/Vol] 117 mg/dL High 70-100 [facility] Comment on above: Result Comment: [place] Glucose Reference Range is dependent on time and content of last meal. Glucose of more than 200 mg/dL in a nonstressed, ambulatory subject supports the diagnosis of Diabetes Mellitus. ADA recommended reference range Performed By: #### P T, MG, HS TROP, CBC, HEPATIC, BMP, CK, PHOS, BNP #### [address] Potassium [Moles/Vol] 2.0 mmol/L Off scale low 3.5-5.1 [facility] Comment on above: Result Comment: Crit ical Result Called to and read back by: CHINA GOLDEN at: 04/14/2024 12:37:20 by:[id number] Performed By: #### P T, MG, HS TROP, CBC, HEPATIC, BMP, CK, PHOS, BNP #### [address] Sodium [Moles/Vol] 130 mmol/L Low 136-145 [facility] Comment on above: Performed By: #### P T, MG, HS TROP, CBC, HEPATIC, BMP, CK, PHOS, BNP #### [facility] [address] Urea nitrogen [Mass/Vol] 15 mg/dL Normal 7-25 [facility] Comment on above: Performed By: #### P T, MG, HS TROP, CBC, HEPATIC, BMP, CK, PHOS, BNP #### [facility] [address] Basophils Auto (Bld) [#/Vol] Ordered By: Jeremiah Rodriguez on 04-14-2024 Basophils (Bld) [#/Vol] Automated basophil count 0.0-0.2 [facility] Basophils/100 WBC Auto (Bld) Ordered By: Jeremiah Rodriguez on 04-14-2024 Basophils/100 WBC (Bld) Automated basophil % . [facility] Bilirubin Test strip Ql (U)O rdered By: Jeremiah Rodriguez on 04-14-2024 Bilirubin Ql (U) Bilirubin.total [Presence] in Urine by Test strip Negative [facility] Bilirubin.direct [Mass/volum e] in Serum or PlasmaOrdered By: Jeremiah Rodriguez on 04-14-2024 Bilirubin.direct [Mass/Vol] Bilirubin.direct [Mass/volume] in Serum or Plasma High 0.03-0.18 [facility] Bilirubin.total [Mass/volume ] in Serum or PlasmaOrdered By: Jeremiah Rodriguez on 04-14-2024 Bilirubin [Mass/Vol] Bilirubin.total [Mass/volume] in Serum or Plasma High 0.3-1.0 [facility] Comment on above: Samples from patient s who have taken Naproxen have shown spurious elevation in Total Bilirubin levels. A metabolite of Naproxen, O-desmethylnaproxen, has been shown to interfere with the Eliana-Yariel method for measuring Total Bilirubin. Calcium [Mass/volume] in Ser um or PlasmaOrdered By: Jeremiah Rodriguez on 04-14-2024 Calcium [Mass/Vol] Calcium [Mass/volume ] in Serum or Plasma 8.6-10.3 [facility] Carbon dioxide, total [Moles /volume] in Serum or PlasmaOrdered By: Jeremiah Rodriguez on 04-14-2024 CO2 [Moles/Vol] Carbon dioxide, tota l [Moles/volume] in Serum or Plasma High 21.0-31.0 [facility] Chloride [Moles/volume] in S live or PlasmaOrdered By: Jeremiah Rodriguez on 04-14-2024 Chloride [Moles/Vol] Chloride [Moles/vol ume] in Serum or Plasma Low 98-107 [facility] Color Auto (U)Ordered By: Mehran red Jennifer on 04-14-2024 Color (U) Color of Urine by Auto Yellow Fi relaCount includes the [facility] Complete Blood Count Auto Di ffon 04-14-2024 Basophils (Bld) [#/Vol] 0.1 10*3/uL Normal 0.0-0.2 [facility] Comment on above: Result Comment: PERF ORMED BY: [place] [address] PATHOLOGIST SHOE CLEANER SELIN HOYT M.D. Performed By: #### P T, MG, HS TROP, CBC, HEPATIC, BMP, CK, PHOS, BNP #### [address] Basophils/100 WBC (Bld) 0.6 % Normal . [facility] Comment on above: Performed By: #### P T, MG, HS TROP, CBC, HEPATIC, BMP, CK, PHOS, BNP #### [place] [address] [place] Eosinophils (Bld) [#/Vol] 0.2 10*3/uL Normal 0.0-0.45 [facility] Comment on above: Performed By: #### P T, MG, HS TROP, CBC, HEPATIC, BMP, CK, PHOS, BNP #### [place] [address] [place] Eosinophils/100 WBC (Bld) 2.3 % Normal . [facility] Comment on above: Performed By: #### P T, MG, HS TROP, CBC, HEPATIC, BMP, CK, PHOS, BNP #### [address] Erythrocyte distribution width (RBC) [Ratio] 14.4 % Normal 11.9-15.3 [facility] Comment on above: Performed By: #### P T, MG, HS TROP, CBC, HEPATIC, BMP, CK, PHOS, BNP #### [address] Hematocrit (Bld) [Volume fraction] 44.5 % Normal 34.0-46.4 [facility] Comment on above: Performed By: #### P T, MG, HS TROP, CBC, HEPATIC, BMP, CK, PHOS, BNP #### [address] Hemoglobin (Bld) [Mass/Vol] 15.7 g/dL High 11.8-15.4 [facility] Comment on above: Performed By: #### P T, MG, HS TROP, CBC, HEPATIC, BMP, CK, PHOS, BNP #### [address] Lymphocytes (Bld) [#/Vol] 1.0 10*3/uL Normal 1.00-4.8 [facility] Comment on above: Performed By: #### P T, MG, HS TROP, CBC, HEPATIC, BMP, CK, PHOS, BNP #### [address] Lymphocytes/100 WBC (Bld) 11.5 % Normal . [facility] Comment on above: Performed By: #### P T, MG, HS TROP, CBC, HEPATIC, BMP, CK, PHOS, BNP #### [address] MCH (RBC) [Entitic mass] 31.7 pg Normal 24.7-34.3 [facility] Comment on above: Performed By: #### P T, MG, HS TROP, CBC, HEPATIC, BMP, CK, PHOS, BNP #### [address] MCV (RBC) [Entitic vol] 89.7 fL Normal 80-100 [facility] Comment on above: Performed By: #### P T, MG, HS TROP, CBC, HEPATIC, BMP, CK, PHOS, BNP #### [address] Mean Corpuscular HGB Conc 35.3 g/dL High 32.0-35.0 [facility] Comment on above: Performed By: #### P T, MG, HS TROP, CBC, HEPATIC, BMP, CK, PHOS, BNP #### [address] Monocytes (Bld) [#/Vol] 1.0 10*3/uL High 0.0-0.8 [facility] Comment on above: Performed By: #### P T, MG, HS TROP, CBC, HEPATIC, BMP, CK, PHOS, BNP #### [address] Monocytes/100 WBC (Bld) 20.68 % High 0.00-20.00 [facility] Comment on above: Result Comment: For adults in ED, MDW > 20.0 may be associated with a higher risk of sepsis during the first 12 hrs of hospital admission Performed By: #### P T, MG, HS TROP, CBC, HEPATIC, BMP, CK, PHOS, BNP #### [address] Monocytes/100 WBC (Bld) 11.9 % Normal . [facility] Comment on above: Performed By: #### P T, MG, HS TROP, CBC, HEPATIC, BMP, CK, PHOS, BNP #### [address] Neutrophils (Bld) [#/Vol] 6.4 10*3/uL Normal 1.8-7.7 [facility] Comment on above: Performed By: #### P T, MG, HS TROP, CBC, HEPATIC, BMP, CK, PHOS, BNP #### [place] [address] Neutrophils/100 WBC (Bld) 73.7 % Normal . [facility] Comment on above: Performed By: #### P T, MG, HS TROP, CBC, HEPATIC, BMP, CK, PHOS, BNP #### [address] NRBC% 0.1 /100{WBC} Normal 0-0.5 [facility] Comment on above: Performed By: #### P T, MG, HS TROP, CBC, HEPATIC, BMP, CK, PHOS, BNP #### [address] Platelet mean volume (Bld) [Entitic vol] 8.6 fL Normal 6.3-10.7 [facility] Comment on above: Performed By: #### P T, MG, HS TROP, CBC, HEPATIC, BMP, CK, PHOS, BNP #### [address] Platelets (Bld) [#/Vol] 208 10*3/uL Normal 150-450 [facility] Comment on above: Performed By: #### P T, MG, HS TROP, CBC, HEPATIC, BMP, CK, PHOS, BNP #### [address] RBC (Bld) [#/Vol] 4.96 10*6/uL Normal 3.60-5.00 [facility] Comment on above: Performed By: #### P T, MG, HS TROP, CBC, HEPATIC, BMP, CK, PHOS, BNP #### [address] WBC (Bld) [#/Vol] 8.7 10*3/uL Normal 3.8-11.6 [facility] Comment on above: Performed By: #### P T, MG, HS TROP, CBC, HEPATIC, BMP, CK, PHOS, BNP #### [address] Creatine Kinaseon 04-14-2024 CK [Catalytic activity/Vol] 151 U/L Normal 30[address] [facility] Comment on above: Performed By: #### P HOS, BMP, MG #### [facility] [address] [place] [id number] [place] Creatine kinase [Enzymatic a ctivity/volume] in Serum or PlasmaOrdered By: Jeremiah Rodriguez on 04-14-2024 CK [Catalytic activity/Vol] Creatine kinase [Enzymatic activity/volume] in Serum or Plasma [facility] Creatinine [Mass/volume] in Serum or PlasmaOrdered By: Jeremiah Rodriguez on 04-14-2024 Creatinine [Mass/Vol] Creatinine [Mass/v olume] in Serum or Plasma High 0.60-1.20 [facility] Dipstick and Microscopicon 0 04-14-2024 Appearance (U) Clear Normal Clear [facility] Comment on above: Order Comment: PT ON MASK ISOLATION Performed By: #### P HOS, BMP, MG #### [facility] [address] [place] [address] [place] Bacteria,Urine Rare Normal None Seen [facility] Comment on above: Order Comment: PT ON MASK ISOLATION Performed By: #### P HOS, BMP, MG #### [facility] [address] [place] [address] [place] Bilirubin,Urine Negative Normal Negative [facility] Comment on above: Order Comment: PT ON MASK ISOLATION Performed By: #### P HOS, BMP, MG #### [facility] [address] [place] [id number] [place] Color (U) Colorless Normal Yellow [facility] Comment on above: Order Comment: PT ON MASK ISOLATION Performed By: #### P HOS, BMP, MG #### [facility] [address] [place] [address] [place] Glucose Ql (U) Normal Normal Normal [facility] Comment on above: Order Comment: PT ON MASK ISOLATION Performed By: #### P HOS, BMP, MG #### [facility] [address] [place] [address] [place] Hyaline Casts,Urine 0-8 Normal 0-8 [facility] Comment on above: Order Comment: PT ON MASK ISOLATION Performed By: #### P HOS, BMP, MG #### [facility] [address] Ketones Ql (U) Negative Normal Negative [facility] Comment on above: Order Comment: PT ON MASK ISOLATION Performed By: #### P HOS, BMP, MG #### [place] [id number] [facility] Leukocyte esterase Test strip Ql (U) 3+ High Negative [facility] Comment on above: Order Comment: PT ON MASK ISOLATION Performed By: #### P HOS, BMP, MG #### [place] [address] [place] Mucus,Urine Rare Normal [facility] Comment on above: Order Comment: PT ON MASK ISOLATION Result Comment: PERF ORMED BY: [place] [address] PATHOLOGIST SHOE CLEANER SELIN HOYT M.D. Performed By: #### P HOS, BMP, MG #### [address] Nitrite,Urine Negative Normal Negative [facility] Comment on above: Order Comment: PT ON MASK ISOLATION Performed By: #### P HOS, BMP, MG #### [address] Occult Blood,Urine 1+ High Negative [facility] Comment on above: Order Comment: PT ON MASK ISOLATION Result Comment: PERF ORMED BY: [place] [address] PATHOLOGIST SHOE CLEANER SELIN HOYT M.D. Performed By: #### P HOS, BMP, MG #### [place] [address] [place] pH (U) 7.0 [pH] Normal 5.0-9.0 [facility] Comment on above: Order Comment: PT ON MASK ISOLATION Performed By: #### P HOS, BMP, MG #### [place] [address] [place] Protein,Urine Negative Normal Negative [facility] Comment on above: Order Comment: PT ON MASK ISOLATION Performed By: #### P HOS, BMP, MG #### [facility] [address] [place] [address] [place] RBC,Urine 1-2 Normal 0-4 [facility] Comment on above: Order Comment: PT ON MASK ISOLATION Performed By: #### P HOS, BMP, MG #### [facility] [address] [place] [address] [place] Specificy [place],Urine 1.006 Normal 1.001-1.03 0 [facility] Comment on above: Order Comment: PT ON MASK ISOLATION Performed By: #### P HOS, BMP, MG #### [facility] [address] Squamous Epithelial Cell,Urine 1-2 Normal 0-2 [facility] Comment on above: Order Comment: PT ON MASK ISOLATION Performed By: #### P HOS, BMP, MG #### [address] Urobilinogen,Urine Normal Normal Normal [facility] Comment on above: Order Comment: PT ON MASK ISOLATION Performed By: #### P HOS, BMP, MG #### [place] [id number] [place] WBC,Urine 1-2 Normal 0-4 [facility] Comment on above: Order Comment: PT ON MASK ISOLATION Performed By: #### P HOS, BMP, MG #### [address] ECG 12 lead ECGon 04-14-2024 ECG 12 lead ECG [facility] [place] [address] Electrocardiograph Report Signed Patient: Katarina Camara MR#: [id number] 51 : 1945 Acct:[id number] Age/Sex: 78 / F ADM Date: 04/14/24 Loc: Room: [address] [place] [address] Type: ADM IN Attending Dr: Kb Tavares MD Ordering Provider: Jeremiah Rodriguez DO Date of Service: 04/14/2401/27/1040 ECG/ECG 12 lead ECG: Syncope Copies to: Test Reason : Blood Pressure : 102/51 mmHG Vent. Rate : 75 BPM Atrial Rate : 75 BPM P-R Int : 156 ms QRS Dur : 104 ms QT Int : 362 ms P-R-T Axes : 64 -45 142 degrees QTcB Int : 404 ms Sinus rhythm with occasional premature ventricular complexes Left axis deviation Incomplete right bundle branch block Left ventricular hypertrophy with repolarization abnormality Abnormal ECG When compared with ECG of 18-Jan-2023 07:53, premature ventricular complexes are now present Incomplete right bundle branch block is now present Confirmed by Jeremiah Rodriguez DO ([id number]) on 04/14/2024 3:31:50 PM Referred By: Electronically Signed By: Jeremiah Rodriguez DO Transcribed By: MUS Signed By Jeremiah Rodriguez DO 5 1531 Normal [facility] Eosinophils Auto (Bld) [#/Vo l]Ordered By: Jeremiah Rodriguez on 04-14-2024 Eosinophils (Bld) [#/Vol] Automated eosinophil count 0.0-0.45 [facility] Eosinophils/100 WBC Auto (Bl d)Ordered By: Jeremiah Rodriguez on 04-14-2024 Eosinophils/100 WBC (Bld) Automated eosinophil % . [facility] Epithelial cells.squamous [# /area] in Urine sediment by Automated countOrdered By: Jeremiah Rodriguez on 04-14-2024 Epithelial cells.squamous Auto (Urine sed) [#/Area] Epithelial cells.squamous [#/area] in Urine sediment by Automated count 0-2 [facility] Erythrocyte distribution wid th Auto (RBC) [Ratio]Ordered By: Jeremiah Rodriguez on 04-14-2024 Erythrocyte distribution width (RBC) [Ratio] Erythrocyte distribution width [Ratio] by Automated count 11.9-15.3 [facility] Erythrocytes [#/area] in Uri ne sediment by Automated countOrdered By: Jeremiah Rodriguez on 04-14-2024 RBC Auto (Urine sed) [#/Area] Erythrocytes [#/area] in Urine sediment by Automated count 0-4 [facility] Globulin Calc (S) [Mass/Vol] Ordered By: Jeremiah Rodriguez on 04-14-2024 Globulin (S) [Mass/Vol] Serum globulin measurement by calculation (mass/volume) [facility] Glucose [Mass/volume] in Ser um or PlasmaOrdered By: Jeremiah Rodriguez on 04-14-2024 Glucose [Mass/Vol] Glucose [Mass/volume ] in Serum or Plasma High 70-100 [facility] Comment on above: ADA recommended refe rence rangeRandom Glucose Reference Range is dependent on time and content of last meal. Glucose of more than 200 mg/dL in a nonstressed, ambulatory subject supports the diagnosis of Diabetes Mellitus. Glucose [Mass/volume] in Uri ne by Test stripOrdered By: Jeremiah Rodriguez on 04-14-2024 Glucose Test strip (U) [Mass/Vol] Glucose [Mass/volume] in Urine by Test strip Normal [facility] Hematocrit Auto (Bld) [Volum e fraction]Ordered By: Jeremiah Rodriguez on 04-14-2024 Hematocrit (Bld) [Volume fraction] Hematocrit [Volume Fraction] of Blood by Automated count 34.0-46.4 [facility] Hemoglobin Test strip Ql (U) Ordered By: Jeremiah Rodriguez on 04-14-2024 Hemoglobin Ql (U) Hemoglobin [Presence ] in Urine by Test strip High Negative [facility] Hemoglobin [Mass/volume] in BloodOrdered By: Jeremiah Rodriguez on 04-14-2024 Hemoglobin (Bld) [Mass/Vol] Hemoglobin [Mass/volume] in Blood High 11.8-15.4 [facility] Hepatic Panelon 04-14-2024 Albumin [Mass/Vol] 3.9 g/dL Normal 3.5-5.7 [facility] Comment on above: Performed By: #### P T, MG, HS TROP, CBC, HEPATIC, BMP, CK, PHOS, BNP #### [facility] [address] [place] [address] [place] Albumin/Globulin [Mass ratio] 1.6 {ratio} Normal [facility] Comment on above: Performed By: #### P T, MG, HS TROP, CBC, HEPATIC, BMP, CK, PHOS, BNP #### [facility] [address] ALP [Catalytic activity/Vol] 86 U/L Normal 34-104 [facility] Comment on above: Performed By: #### P T, MG, HS TROP, CBC, HEPATIC, BMP, CK, PHOS, BNP #### [address] ALT [Catalytic activity/Vol] 17 U/L Normal 7-52 [facility] Comment on above: Performed By: #### P T, MG, HS TROP, CBC, HEPATIC, BMP, CK, PHOS, BNP #### [address] AST [Catalytic activity/Vol] 33 U/L Normal 13-39 [facility] Comment on above: Performed By: #### P T, MG, HS TROP, CBC, HEPATIC, BMP, CK, PHOS, BNP #### [address] Bilirubin [Mass/Vol] 1.5 mg/dL High 0.3-1.0 [facility] Comment on above: Result Comment: Samp les from patients who have taken Naproxen have shown spurious elevation in Total Bilirubin levels. A metabolite of Naproxen, O-desmethylnaproxen, has been shown to interfere with the Jendrassik-Grof method for measuring Total Bilirubin. Performed By: #### P T, MG, HS TROP, CBC, HEPATIC, BMP, CK, PHOS, BNP #### [address] Bilirubin,Indirect 1.3 mg/dL Normal [facility] Comment on above: Performed By: #### P T, MG, HS TROP, CBC, HEPATIC, BMP, CK, PHOS, BNP #### [address] Bilirubin.indirect [Mass/Vol] 0.20 mg/dL High 0.03-0.18 [facility] Comment on above: Performed By: #### P T, MG, HS TROP, CBC, HEPATIC, BMP, CK, PHOS, BNP #### [address] Globulin (S) [Mass/Vol] 2.4 g/dL Normal [facility] Comment on above: Performed By: #### P T, MG, HS TROP, CBC, HEPATIC, BMP, CK, PHOS, BNP #### [facility] [address] Protein [Mass/Vol] 6.3 g/dL Low 6.4-8.9 [facility] Comment on above: Performed By: #### P T, MG, HS TROP, CBC, HEPATIC, BMP, CK, PHOS, BNP #### [facility] [address] Hyaline casts [#/area] in Ur ine sediment by Automated countOrdered By: Jeremiah Rodriguez on 04-14-2024 Hyaline casts Auto (Urine sed) [#/Area] Hyaline casts [#/area] in Urine sediment by Automated count 0-8 [facility] INR in Platelet poor plasma by Coagulation assayOrdered By: Jeremiah Rodriguez on 04-14-2024 INR Coag (PPP) [Relative time] INR in Platelet poor plasma by Coagulation assay [facility] Comment on above: INR Therapeutic Rang [...] with mechanical heart valves: 3 - 4.5 Ketones Test strip Ql (U)Ord ered By: Jeremiah Rodriguez on 04-14-2024 Ketones Ql (U) Ketones [Presence] i n Urine by Test strip Negative [facility] Leukocyte esterase [Presence ] in Urine by Test stripOrdered By: Jeremiah Rodriguez on 04-14-2024 Leukocyte esterase Test strip Ql (U) Leukocyte esterase [Presence] in Urine by Test strip High Negative [facility] Leukocytes [#/area] in Urine sediment by Automated countOrdered By: Jeremiah Rodriguez on 04-14-2024 WBC Auto (Urine sed) [#/Area] Leukocytes [#/area] in Urine sediment by Automated count 0-4 [facility] Leukocytes [#/volume] correc jamil for nucleated erythrocytes in Blood by Automated counOrdered By: Jeremiah Rodriguez on 04-14-2024 WBC corrected for nucl RBC Auto (Bld) [#/Vol] Leukocytes [#/volume] corrected for nucleated erythrocytes in Blood by Automated coun 3.8-11.6 [facility] Lymphocytes Auto (Bld) [#/Vo l]Ordered By: Jeremiah Rodriguez on 04-14-2024 Lymphocytes (Bld) [#/Vol] Lymphocytes [#/volume] in Blood by Automated count 1.00-4.8 [facility] Lymphocytes/100 WBC Auto (Bl d)Ordered By: Jeremiah Rodriguez on 04-14-2024 Lymphocytes/100 WBC (Bld) Lymphocytes/100 leukocytes in Blood by Automated count . [facility] MCH Auto (RBC) [Entitic mass ]Ordered By: Jeremiah Rodriguez on 04-14-2024 MCH (RBC) [Entitic mass] MCH [Entitic mass] by Automated count 24.7-34.3 [facility] MCHC Auto (RBC) [Mass/Vol]Or dered By: Jeremiah Rodriguez on 04-14-2024 MCHC (RBC) [Mass/Vol] MCHC [Mass/volume] by Automated count High 32.0-35.0 [facility] MCV Auto (RBC) [Entitic vol] Ordered By: Jeremiah Rodriguez on 04-14-2024 MCV (RBC) [Entitic vol] MCV [Entitic volume] by Automated count 80-100 [facility] Magnesiumon 04-14-2024 Magnesium [Mass/Vol] 2.6 mg/dL Normal 1.9-2.7 [facility] Comment on above: Order Comment: PT ON MASK ISOLATION Result Comment: PERF ORMED BY: [place] [address] PATHOLOGIST [employer] CLEANER SELIN HOYT M.D. Performed By: #### P HOS, BMP, MG #### [address] Magnesium [Mass/Vol] 2.2 mg/dL Normal 1.9-2.7 [facility] Comment on above: Result Comment: PERF ORMED BY: [place] [address] PATHOLOGIST [employer] CLE[employer]ER SELIN HOYT M.D. Performed By: #### P T, MG, HS TROP, CBC, HEPATIC, BMP, CK, PHOS, BNP #### [facility] [address] Performed By: #### P HOS, BMP, MG #### [facility] [address] Magnesium [Mass/volume] in S live or PlasmaOrdered By: Jeremiah Rodriguez on 04-14-2024 Magnesium [Mass/Vol] Magnesium [Mass/vol ume] in Serum or Plasma 1.9-2.7 [facility] Monocyte distribution width [Entitic volume] in Blood by AutomatedOrdered By: Jeremiah Rodriguez on 04-14-2024 Monocyte distribution width Auto (Bld) [Entitic vol] Monocyte distribution width [Entitic volume] in Blood by Automated High 0.00-20.00 [facility] Comment on above: For adults in ED, MD W > 20.0 may be associated with a higher risk of sepsis during the first 12 hrs of hospital admission Monocytes Auto (Bld) [#/Vol] Ordered By: Jeremiah Rodriguez on 04-14-2024 Monocytes (Bld) [#/Vol] Automated blood monocyte count High 0.0-0.8 [facility] Monocytes/100 WBC Auto (Bld) Ordered By: Jeremiah Rodriguez on 04-14-2024 Monocytes/100 WBC (Bld) Automated monocyte % . [facility] Mucus [Presence] in Urine by AutomatedOrdered By: Jeremiah Rodriguez on 04-14-2024 Mucus Auto Ql (U) Mucus [Presence] in Urine by Automated [facility] Natriuretic peptide B [Mass/ Vol]Ordered By: Jeremiah Rodriguez on 04-14-2024 Natriuretic peptide B (Bld) [Mass/Vol] BNP ser/plas High 5-100 [facility] Neutrophils Auto (Bld) [#/Vo l]Ordered By: Jeremiah Rodriguez on 04-14-2024 Neutrophils (Bld) [#/Vol] Neutrophils [#/volume] in Blood by Automated count 1.8-7.7 [facility] Neutrophils/100 WBC Auto (Bl d)Ordered By: Jeremiah Rodriguez on 04-14-2024 Neutrophils/100 WBC (Bld) Automated neutrophil % . [facility] Nitrite Test strip Ql (U)Ord ered By: Jeremiah Rodriguez on 04-14-2024 Nitrite Ql (U) Nitrite [Presence] i n Urine by Test strip Negative [facility] No Panel InformationOrdered By: Jeremiah Rodriguez on 04-14-2024 Estimated GFR (CKD-EPI) 30.887 mL/Min [facility] Creatinine Clearance (Chem 27.96 [facility] Nucleated erythrocytes [Pres ence] in Blood by Automated countOrdered By: Jeremiah Rodriguez on 04-14-2024 Nucleated RBC Auto Ql (Bld) Nucleated erythrocytes [Presence] in Blood by Automated count 0-0.5 [facility] Phosphoruson 04-14-2024 Phosphate [Mass/Vol] 3.0 mg/dL Normal 2.5-4.5 [facility] Comment on above: Order Comment: PT ON MASK ISOLATION Performed By: #### P HOS, BMP, MG #### [facility] [address] Phosphate [Mass/Vol] 3.2 mg/dL Normal 2.5-4.5 [facility] Comment on above: Performed By: #### P HOS, BMP, MG #### [facility] [address] Platelet mean volume Auto (B ld) [Entitic vol]Ordered By: Jeremiah Rodriguez on 04-14-2024 Platelet mean volume (Bld) [Entitic vol] Platelet mean volume [Entitic volume] in Blood by Automated count 6.3-10.7 [facility] Platelets Auto (Bld) [#/Vol] Ordered By: Jeremiah Rodriguez on 04-14-2024 Platelets (Bld) [#/Vol] Platelets [#/volume] in Blood by Automated count 150-450 [facility] Potassium [Moles/volume] in Serum or PlasmaOrdered By: Jeremiah Rodriguez on 04-14-2024 Potassium [Moles/Vol] Potassium [Moles/v olume] in Serum or Plasma Critically low 3.5-5.1 [facility] Comment on above: Critical Result Call ed to and read back by: CHINA GOLDEN at: 04/14/2024 12:37:20 by:MLG Protein Test strip (U) [Mass /Vol]Ordered By: Jeremiah Rodriguez on 04-14-2024 Protein (U) [Mass/Vol] Protein [Mass/vol ume] in Urine by Test strip Negative [facility] Protein [Mass/volume] in Ser um or PlasmaOrdered By: Jeremiah Rodriguez on 04-14-2024 Protein [Mass/Vol] Protein [Mass/volume ] in Serum or Plasma Low 6.4-8.9 [facility] Prothrombin Time INRon 04-14 INR Coag (PPP) [Relative time] 1.0 {INR} Normal [facility] Comment on above: Result Comment: INR Therapeutic [...] with mechanical heart valves: 3 - 4.5 PERFORMED BY: [place] [address] PATHOLOGIST SH[employer] CLEANER SELIN HOYT M.D. Performed By: #### P T, MG, HS TROP, CBC, HEPATIC, BMP, CK, PHOS, BNP #### [facility] [address] [place], [place] [id number] [facility] PT Coag (PPP) [Time] 10.9 s Normal 9.0-12.9 [facility] Comment on above: Result Comment: A he matocrit value greater than 55% may lead to inaccurate results in coagulation testing. Patients having hematocrit values >55% require a special collection tube for coagulation studies. Please contact the laboratory at [phone] for redraw instructions. Performed By: #### P T, MG, HS TROP, CBC, HEPATIC, BMP, CK, PHOS, BNP #### [facility] [address] [place] [id number] [facility] Prothrombin time (PT)Ordered By: Jeremiah Rodriguez on 04-14-2024 PT Coag (PPP) [Time] Prothrombin time (PT) 9.0- 12.9 [facility] Comment on above: A hematocrit value g reater than 55% may lead to inaccurate results in coagulation testing. Patients having hematocrit values >55% require a special collection tube for coagulation studies. Please contact the laboratory at [phone] for redraw instructions. RBC Auto (Bld) [#/Vol]Ordere d By: Jeremiah Rodriguez on 04-14-2024 RBC (Bld) [#/Vol] Erythrocytes [#/volu me] in Blood by Automated count 3.60-5.00 [facility] Serum or plasma albumin/glob ulin mass ratioOrdered By: Jeremiah Rodriguez on 04-14-2024 Albumin/Globulin [Mass ratio] Serum or plasma albumin/globulin mass ratio [facility] Serum or plasma anion gap de terminationOrdered By: Jeremiah Rodriguez on 04-14-2024 Anion gap [Moles/Vol] Serum or plasma an ion gap determination 6.0-15.0 [facility] Serum or plasma non-glucuron idated bilirubin measurement (mass/volume)Ordered By: Jeremiah Rodriguez on 04-14-2024 Bilirubin.indirect [Mass/Vol] Serum or plasma non-glucuronidated bilirubin measurement (mass/volume) [facility] Sodium [Moles/volume] in Ser um or PlasmaOrdered By: Jeremiah Rodriguez on 04-14-2024 Sodium [Moles/Vol] Sodium [Moles/volume ] in Serum or Plasma Low 136-145 [facility] Specific gravity Test strip (U) [Rel density]Ordered By: Jeremiah Rodriguez on 04-14-2024 Specific gravity (U) [Rel density] Specific gravity of Urine by Test strip 1.001-1.03 0 [facility] Troponin I High Sensitivityo n 04-14-2024 Troponin I High Sensitivity 81 Off scale high 0-15 [facility] Comment on above: Result Comment: Crit ical Result : Called to and read back by: KOREY HONG at: 04/14/2024 13:11:12 by:MARGARITA The Troponin units of report have been changed to meet the Chest Pain Accreditation requirement, element EC5.M1l2. Troponin units are changed from pg/ml to ng/L. Also, the decimal is removed and results are in whole numbers. PERFORMED BY: [place] [address] PATHOLOGIST [employer] CLE[employer]ER SELIN HOYT M.D. Performed By: #### P HOS, BMP, MG #### [address] Troponin I.cardiac [Mass/vol ume] in Serum or Plasma by Detection limit <= 0.01 ng/Ordered By: Jeremiah Rodriguez on 04-14-2024 Troponin I.cardiac DL <= 0.01 ng/mL [Mass/Vol] Troponin I.cardiac [Mass/volume] in Serum or Plasma by Detection limit <= 0.01 ng/ Critically high 0-15 [facility] Comment on above: Critical Result : Ca lled to and read back by: KOREY HONG at: 04/14/2024 13:11:12 by:MLGThe Troponin units of report have been changed to meet the Chest Pain Accreditation requirement, element EC5.M1l2. Troponin units are changed from pg/ml to ng/L. Also, the decimal is removed and results are in whole numbers. Urea nitrogen [Mass/volume] in Serum or PlasmaOrdered By: Jeremiah Rodriguez on 04-14-2024 Urea nitrogen [Mass/Vol] Urea nitrogen [Mass/volume] in Serum or Plasma 7-25 [facility] Urobilinogen Test strip (U) [Mass/Vol]Ordered By: Jeremiah Rodriguez on 04-14-2024 Urobilinogen (U) [Mass/Vol] Urobilinogen [Mass/volume] in Urine by Test strip Normal [facility] WBC Auto (Bld) [#/Vol]Ordere d By: Jeremiah Rodriguez on 04-14-2024 WBC (Bld) [#/Vol] Leukocytes [#/volume ] in Blood by Automated count 3.8-11.6 [facility] X-ray reportOrdered By: Sami Gonzalez on 04-14-2024 Study report [facility] Main [place] [address] [place] [id number] XRay Report Signed Patient: Katarina Camara MR#: [id number] : 1945 Acct:[id number] Age/Sex: 78 / F ADM Date: 5 Loc: ER Room: Type: PRE ER Attending Dr: Copies to: Jeremiah Rodriguez DO~ Ordering Provider: Jeremiah Rodriguez DO Date of Service: 04/14/24 XR/XR chest 1V portable: Syncope SINGLE VIEW CHEST CLINICAL HISTORY: Syncopal episodes. COMPARISON: Chest 11/08/2023 FINDINGS: Heart normal in size. Lungs are clear. No free air. Chronic elevation of the right hemidiaphragm. XR/XR chest 1V portable IMPRESSION: NO ACUTE FINDINGS Impression dictated by: Yoni Membreno Jr..OJuan04/14/2024 11:11 AM Dictation Location: [place] [address] Transcribed By: [facility] 04/14/24 1111 Dictated By: Judd Gonzalez Jr, DO 04/14/24 1107 Signed By: 04/14/24 1111 [facility] XR chest 1V portableon 04-14 XR chest 1V portable [facility] Main [place] [id number] XRay Report Signed Patient: Katarina Camara MR#: [id number] : 1945 Acct:[id number] Age/Sex: 78 / F ADM Date: 04/14/24 Loc: ER Room: Type: PRE ER Attending Dr: Copies to: Jeremiah Rodriguez DO Ordering Provider: Jeremiah Rodriguez DO Date of Service: 04/14/24 XR/XR chest 1V portable: Syncope SINGLE VIEW CHEST CLINICAL HISTORY: Syncopal episodes. COMPARISON: Chest 11/08/2023 FINDINGS: Heart normal in size. Lungs are clear. No free air. Chronic elevation of the right hemidiaphragm. XR/XR chest 1V portable IMPRESSION: NO ACUTE FINDINGS Impression dictated by: Judd Gonzalez Jr. D.O.04/14/2024 11:11 AM Dictation Location: [place] [address] Transcribed By: [facility] 04/14/24 1111 Dictated By: Judd Gonzalez Jr, DO 04/14/24 1107 Signed By: 04/14/24 1111 Normal [facility] pH Test strip (U)Ordered By: Jeremiah Rodriguez on 04-14-2024 pH (U) pH of Urine by Test strip 5.0-9.0 [facility] Basophils Auto (Bld) [#/Vol] Ordered By: Wesley Tena on 03-26-2024 Basophils (Bld) [#/Vol] Automated basophil count 0.0-0.2 [facility] Basophils/100 WBC Auto (Bld) Ordered By: Wesley Tena on 03-26-2024 Basophils/100 WBC (Bld) Automated basophil % . [facility] Complete Blood Count Auto Di ffon 03-26-2024 Basophils (Bld) [#/Vol] 0.0 10*3/uL Normal 0.0-0.2 [facility] Comment on above: Result Comment: PERF ORMED BY: [place] [address] PATHOLOGIST SH[employer] CLEANER SELIN HOYT M.D. Performed By: #### P T, MG, HS TROP, CBC, HEPATIC, BMP, CK, PHOS, BNP #### [facility] [address] [place] [address] [place] Basophils/100 WBC (Bld) 0.9 % Normal . [facility] Comment on above: Performed By: #### P T, MG, HS TROP, CBC, HEPATIC, BMP, CK, PHOS, BNP #### [facility] [address] [place] [address] [place] Eosinophils (Bld) [#/Vol] 0.1 10*3/uL Normal 0.0-0.45 [facility] Comment on above: Performed By: #### P T, MG, HS TROP, CBC, HEPATIC, BMP, CK, PHOS, BNP #### [facility] [address] [place] [address] [place] Eosinophils/100 WBC (Bld) 2.0 % Normal . [facility] Comment on above: Performed By: #### P T, MG, HS TROP, CBC, HEPATIC, BMP, CK, PHOS, BNP #### [address] Erythrocyte distribution width (RBC) [Ratio] 14.2 % Normal 11.9-15.3 [facility] Comment on above: Performed By: #### P T, MG, HS TROP, CBC, HEPATIC, BMP, CK, PHOS, BNP #### [address] Hematocrit (Bld) [Volume fraction] 44.5 % Normal 34.0-46.4 [facility] Comment on above: Performed By: #### P T, MG, HS TROP, CBC, HEPATIC, BMP, CK, PHOS, BNP #### [address] Hemoglobin (Bld) [Mass/Vol] 15.3 g/dL Normal 11.8-15.4 [facility] Comment on above: Performed By: #### P T, MG, HS TROP, CBC, HEPATIC, BMP, CK, PHOS, BNP #### [address] Lymphocytes (Bld) [#/Vol] 1.1 10*3/uL Normal 1.00-4.8 [facility] Comment on above: Performed By: #### P T, MG, HS TROP, CBC, HEPATIC, BMP, CK, PHOS, BNP #### [address] Lymphocytes/100 WBC (Bld) 30.1 % Normal . [facility] Comment on above: Performed By: #### P T, MG, HS TROP, CBC, HEPATIC, BMP, CK, PHOS, BNP #### [address] MCH (RBC) [Entitic mass] 30.7 pg Normal 24.7-34.3 [facility] Comment on above: Performed By: #### P T, MG, HS TROP, CBC, HEPATIC, BMP, CK, PHOS, BNP #### [address] MCV (RBC) [Entitic vol] 89.6 fL Normal 80-100 [facility] Comment on above: Performed By: #### P T, MG, HS TROP, CBC, HEPATIC, BMP, CK, PHOS, BNP #### [address] Mean Corpuscular HGB Conc 34.3 g/dL Normal 32.0-35.0 [facility] Comment on above: Performed By: #### P T, MG, HS TROP, CBC, HEPATIC, BMP, CK, PHOS, BNP #### [address] Monocytes (Bld) [#/Vol] 0.6 10*3/uL Normal 0.0-0.8 [facility] Comment on above: Performed By: #### P T, MG, HS TROP, CBC, HEPATIC, BMP, CK, PHOS, BNP #### [address] Monocytes/100 WBC (Bld) 15.6 % Normal . [facility] Comment on above: Performed By: #### P T, MG, HS TROP, CBC, HEPATIC, BMP, CK, PHOS, BNP #### [address] Neutrophils (Bld) [#/Vol] 1.9 10*3/uL Normal 1.8-7.7 [facility] Comment on above: Performed By: #### P T, MG, HS TROP, CBC, HEPATIC, BMP, CK, PHOS, BNP #### [address] Neutrophils/100 WBC (Bld) 51.4 % Normal . [facility] Comment on above: Performed By: #### P T, MG, HS TROP, CBC, HEPATIC, BMP, CK, PHOS, BNP #### [address] NRBC% 0.2 /100{WBC} Normal 0-0.5 [facility] Comment on above: Performed By: #### P T, MG, HS TROP, CBC, HEPATIC, BMP, CK, PHOS, BNP #### [facility] [address] Platelet mean volume (Bld) [Entitic vol] 8.1 fL Normal 6.3-10.7 [facility] Comment on above: Performed By: #### P T, MG, HS TROP, CBC, HEPATIC, BMP, CK, PHOS, BNP #### [facility] [address] Platelets (Bld) [#/Vol] 205 10*3/uL Normal 150-450 [facility] Comment on above: Performed By: #### P T, MG, HS TROP, CBC, HEPATIC, BMP, CK, PHOS, BNP #### [facility] [address] RBC (Bld) [#/Vol] 4.97 10*6/uL Normal 3.60-5.00 [facility] Comment on above: Performed By: #### P T, MG, HS TROP, CBC, HEPATIC, BMP, CK, PHOS, BNP #### [facility] [address] WBC (Bld) [#/Vol] 3.7 10*3/uL Low 3.8-11.6 [facility] Comment on above: Performed By: #### P T, MG, HS TROP, CBC, HEPATIC, BMP, CK, PHOS, BNP #### [address] Eosinophils Auto (Bld) [#/Vo l]Ordered By: Wesley Tena on 03-26-2024 Eosinophils (Bld) [#/Vol] Automated eosinophil count 0.0-0.45 [facility] Eosinophils/100 WBC Auto (Bl d)Ordered By: Wesley Tena on 03-26-2024 Eosinophils/100 WBC (Bld) Automated eosinophil % . [facility] Erythrocyte distribution wid th Auto (RBC) [Ratio]Ordered By: Wesley Tena on 03-26-2024 Erythrocyte distribution width (RBC) [Ratio] Erythrocyte distribution width [Ratio] by Automated count 11.9-15.3 [facility] Hematocrit Auto (Bld) [Volum e fraction]Ordered By: Wesley Bunting on 03-26-2024 Hematocrit (Bld) [Volume fraction] Hematocrit [Volume Fraction] of Blood by Automated count 34.0-46.4 [facility] Hemoglobin [Mass/volume] in BloodOrdered By: Wesley Bunting on 03-26-2024 Hemoglobin (Bld) [Mass/Vol] Hemoglobin [Mass/volume] in Blood 11.8-15.4 [facility] Leukocytes [#/volume] correc jamil for nucleated erythrocytes in Blood by Automated counOrdered By: Wesley Bunting on 03-26-2024 WBC corrected for nucl RBC Auto (Bld) [#/Vol] Leukocytes [#/volume] corrected for nucleated erythrocytes in Blood by Automated coun Low 3.8-11.6 [facility] Lymphocytes Auto (Bld) [#/Vo l]Ordered By: Wesley Bunting on 03-26-2024 Lymphocytes (Bld) [#/Vol] Lymphocytes [#/volume] in Blood by Automated count 1.00-4.8 [facility] Lymphocytes/100 WBC Auto (Bl d)Ordered By: Wesley Bunting on 03-26-2024 Lymphocytes/100 WBC (Bld) Lymphocytes/100 leukocytes in Blood by Automated count . [facility] MCH Auto (RBC) [Entitic mass ]Ordered By: Wesley Bunting on 03-26-2024 MCH (RBC) [Entitic mass] MCH [Entitic mass] by Automated count 24.7-34.3 [facility] MCHC Auto (RBC) [Mass/Vol]Or dered By: Wesley Bunting on 03-26-2024 MCHC (RBC) [Mass/Vol] MCHC [Mass/volume] by Automated count 32.0-35.0 [facility] MCV Auto (RBC) [Entitic vol] Ordered By: Wesley Bunting on 03-26-2024 MCV (RBC) [Entitic vol] MCV [Entitic volume] by Automated count 80-100 [facility] Monocytes Auto (Bld) [#/Vol] Ordered By: Wesley Bunting on 03-26-2024 Monocytes (Bld) [#/Vol] Automated blood monocyte count 0.0-0.8 [facility] Monocytes/100 WBC Auto (Bld) Ordered By: Wesley Bunting on 03-26-2024 Monocytes/100 WBC (Bld) Automated monocyte % . [facility] Neutrophils Auto (Bld) [#/Vo l]Ordered By: Wesley Bunting on 03-26-2024 Neutrophils (Bld) [#/Vol] Neutrophils [#/volume] in Blood by Automated count 1.8-7.7 [facility] Neutrophils/100 WBC Auto (Bl d)Ordered By: Wesley Bunting on 03-26-2024 Neutrophils/100 WBC (Bld) Automated neutrophil % . [facility] Nucleated erythrocytes [Pres ence] in Blood by Automated countOrdered By: Wesley Bunting on 03-26-2024 Nucleated RBC Auto Ql (Bld) Nucleated erythrocytes [Presence] in Blood by Automated count 0-0.5 [facility] Platelet mean volume Auto (B ld) [Entitic vol]Ordered By: Wesley Bunting on 03-26-2024 Platelet mean volume (Bld) [Entitic vol] Platelet mean volume [Entitic volume] in Blood by Automated count 6.3-10.7 [facility] Platelets Auto (Bld) [#/Vol] Ordered By: Wesley Bunting on 03-26-2024 Platelets (Bld) [#/Vol] Platelets [#/volume] in Blood by Automated count 150-450 [facility] RBC Auto (Bld) [#/Vol]Ordere d By: Wesley Bunting on 03-26-2024 RBC (Bld) [#/Vol] Erythrocytes [#/volu me] in Blood by Automated count 3.60-5.00 [facility] WBC Auto (Bld) [#/Vol]Ordere d By: Wesley Bunting on 03-26-2024 WBC (Bld) [#/Vol] Leukocytes [#/volume ] in Blood by Automated count Low 3.8-11.6 [facility] Basic Metabolic Panelon Anion gap [Moles/Vol] 12 mmol/L 9 - 16 mmol/L [facility] Calcium [Mass/Vol] 9.4 mg/dL 8.6 - 10. 4 mg/dL [facility] Chloride [Moles/Vol] 93 mmol/L Low 98 - 10 7 mmol/L [facility] CO2 [Moles/Vol] 30 mmol/L 20 - 31 mmol/L [facility] Creatinine [Mass/Vol] 1.1 mg/dL High 0.6 - 0.9 mg/dL [facility] Est, Glom Filt Rate 52 Low - PINF [facility] Comment on above: These results [...] 120 mg/dL High 74 - 99 mg/dL [facility] Interpretation and review of laboratory results Abnormal [facility] Potassium [Moles/Vol] 3.7 mmol/L 3.7 - 5.3 mmol/L [facility] Sodium [Moles/Vol] 135 mmol/L Low 136 - 145 mmol/L [facility] Urea nitrogen [Mass/Vol] 12 mg/dL 8 - 23 mg/dL [facility] Basic Metabolic Profon 03-06 Anion gap [Moles/Vol] 12 mmol/L Normal 9-16 [facility] Comment on above: Performed By: #### B MISA, CDP #### [facility] [address] [place] [address] Medical Scribe: Kristian Garcia MD Calcium [Mass/Vol] 9.4 mg/dL Normal 8.6-10.4 [facility] Comment on above: Performed By: #### B MISA, CDP #### [facility] [employer] [address] [place], [place] [phone] Medical Scribe: Kristian Garcia MD Chloride [Moles/Vol] 93 mmol/L Low 98-107 [facility] Comment on above: Performed By: #### B MISA, CDP #### [facility] [address] [place] [address] Medical Scribe: Kristian Garcia MD CO2 [Moles/Vol] 30 mmol/L Normal 20-31 [facility] Comment on above: Performed By: #### B MISA, CDP #### [facility] [address] [place] [address] Medical Scribe: Kristian Garcia MD Creatinine [Mass/Vol] 1.1 mg/dL High 0.6-0.9 [facility] Comment on above: Performed By: #### B MISA, CDP #### [address] [address] Medical Scribe: Kristian Garcia MD GFR/1.73 sq M.predicted among non-blacks MDRD (S/P/Bld) [Vol rate/Area] 52 mL/min/{1.73_m2} Low >60 [facility] Comment on above: Result Comment: These [...] Performed By: #### B MISA, CDP #### [facility] [employer] [address] [place] [address] Medical Scribe: Kristian Garcia MD Glucose [Mass/Vol] 120 mg/dL High 74-99 [facility] Comment on above: Performed By: #### B MISA, CDP #### [facility] [employer] [address] [place] [address] Medical Scribe: Kristian Garcia MD Potassium [Moles/Vol] 3.7 mmol/L Normal 3.7-5.3 [facility] Comment on above: Performed By: #### B MISA, CDP #### [facility] [address], [place] [phone] Medical Scribe: Kristian Garcia MD Sodium [Moles/Vol] 135 mmol/L Low 136-145 [facility] Comment on above: Performed By: #### B MISA, CDP #### [facility] [address], [place] [phone] Medical Scribe: Kristian Garcia MD Urea nitrogen [Mass/Vol] 12 mg/dL Normal 8-23 [facility] Comment on above: Performed By: #### B MISA, CDP #### [facility] [address], [place] [phone] Medical Scribe: Kristian Garcia MD CBC with Auto Differentialon 03-06-2024 Basophils (Bld) [#/Vol] 0.03 10*3/uL [facility] Basophils/100 WBC (Bld) 1 % 0 - 2 % [facility] Eosinophils (Bld) [#/Vol] 0.08 10*3/uL [facility] Eosinophils/100 WBC (Bld) 1 % 1 - 4 % [facility] Erythrocyte distribution width (RBC) [Ratio] 12.6 % 11.8 - 14.4 % [facility] Hematocrit (Bld) [Volume fraction] 43.7 % 36.3 - 47.1 % [facility] Hemoglobin (Bld) [Mass/Vol] 14.2 g/dL 11.9 - 15.1 g/dL [facility] Immature granulocytes (Bld) [#/Vol] [facility] Immature granulocytes/100 WBC (Bld) 0 % [address] [facility] Interpretation and review of laboratory results Abnormal [facility] Lymphocytes/100 WBC (Bld) 20 % Low 24 - 43 % [facility] Lymphocytes/100 WBC (Bld) 1.31 % [facility] MCH (RBC) [Entitic mass] 29.9 pg 25.2 - 33.5 pg [facility] MCHC (RBC) [Mass/Vol] 32.5 g/dL 28.4 - 34.8 g/dL [facility] MCV (RBC) [Entitic vol] 92.0 fL 82.6 - 102.9 fL [facility] Monocytes/100 WBC (Bld) 10 % 3 - 12 % [facility] Monocytes/100 WBC (Bld) 0.69 % [facility] Neutrophils/100 WBC (Bld) 68 % High 36 - 65 % [facility] Nucleated RBC/100 WBC (Bld) [Ratio] 0.0 % 0.0 per 100 WBC [facility] Platelet mean volume (Bld) [Entitic vol] 10.7 fL 8.1 - 13.5 fL [facility] Platelets (Bld) [#/Vol] 200 10*3/uL [facility] RBC (Bld) [#/Vol] 4.75 10*6/uL 3.95 - 5.11 m/uL [facility] Segmented neutrophils/100 WBC (Bld) 4.49 % [facility] WBC other (Bld) [#/Vol] 6.6 [facility] CBC with Diffon 03-06-2024 Abs. Basophil 0.03 k/uL Normal 0.00-0.20 [facility] Comment on above: Performed By: #### B MISA CDP #### [facility] [address] [place] [address] Medical Scribe: Kristian Garcia MD Abs.Imm.Granulocyte <0.03 Normal 0.00-0.30 [facility] Comment on above: Performed By: #### B MISA, CDP #### [employer] [address] [place] [address] Medical Scribe: Kristian Garcia MD Abs.Neutrophil (Seg) 4.49 k/uL Normal 1.50-8.10 [facility] Comment on above: Performed By: #### B MP, CDP #### [facility] [place] [address] Medical Scribe: Kristian Garcia MD Basophils/100 WBC (Bld) 1 % Normal 0-2 [facility] Comment on above: Performed By: #### B MP, CDP #### [facility] [address] [place] [address] Medical Scribe: Kristian Garcia MD Eosinophils (Bld) [#/Vol] 0.08 10*3/uL Normal 0.00-0.44 [facility] Comment on above: Performed By: #### B MP, CDP #### [facility] [employer] [address] [place] [address] Medical Scribe: Kristian Garcia MD Eosinophils/100 WBC (Bld) 1 % Normal 1-4 [facility] Comment on above: Performed By: #### B MP, CDP #### [address] [address] Medical Scribe: Kristian Garcia MD Erythrocyte distribution width (RBC) [Ratio] 12.6 % Normal 11.8-14.4 [facility] Comment on above: Performed By: #### B MP, CDP #### [facility] [employer] [address] [place] [address] Medical Scribe: Kristian Garcia MD Hematocrit (Bld) [Volume fraction] 43.7 % Normal 36.3-47.1 [facility] Comment on above: Performed By: #### B MP, CDP #### [facility] [employer] [address] [place] [address] Medical Scribe: Kristian Garcia MD Hemoglobin (Bld) [Mass/Vol] 14.2 g/dL Normal 11.9-15.1 [facility] Comment on above: Performed By: #### B MP, CDP #### [facility] [employer] [address] [place] [address] Medical Scribe: Kristian Garcia MD Immature granulocytes/100 WBC (Bld) 0 % Normal 0 [facility] Comment on above: Performed By: #### B MP, CDP #### [address] [address] Medical Scribe: Kristian Garcia MD Lymphocytes (Bld) [#/Vol] 1.31 10*3/uL Normal 1.10-3.70 [facility] Comment on above: Performed By: #### B MP, CDP #### [address] [address] Medical Scribe: Kristian Garcia MD Lymphocytes/100 WBC (Bld) 20 % Low 24-43 [facility] Comment on above: Performed By: #### B MP, CDP #### [address] [address] Medical Scribe: Kristian Garcia MD MCH (RBC) [Entitic mass] 29.9 pg Normal 25.2-33.5 [facility] Comment on above: Performed By: #### B MISA, CDP #### [address] [address] Medical Scribe: Kristian Garcia MD MCHC (RBC) [Mass/Vol] 32.5 g/dL Normal 28.4-34.8 [facility] Comment on above: Performed By: #### B MP, CDP #### [address] [address] Medical Scribe: Kristian Garcia MD MCV (RBC) [Entitic vol] 92.0 fL Normal 82.6-102.9 [facility] Comment on above: Performed By: #### B MP, CDP #### [address] [address] Medical Scribe: Kristian Garcia MD Monocytes (Bld) [#/Vol] 0.69 10*3/uL Normal 0.10-1.20 [facility] Comment on above: Performed By: #### B MP, CDP #### [facility] [employer] [address] [place] [address] Medical Scribe: Kristian Garcia MD Monocytes/100 WBC (Bld) 10 % Normal 3-12 [facility] Comment on above: Performed By: #### B MP, CDP #### [facility] [employer] [address] [place] [address] Medical Scribe: Kristian Garcia MD Neutrophil (Seg) 68 % High 36-65 [facility] Comment on above: Performed By: #### B MP, CDP #### [facility] [employer] [address] [place] [address] Medical Scribe: Kristian Garcia MD NRBC Automated 0.0 per 100 WBC Normal 0.0 [facility] Comment on above: Performed By: #### B MP, CDP #### [address] [address] Medical Scribe: Kristian Garcia MD Platelet mean volume (Bld) [Entitic vol] 10.7 fL Normal 8.1-13.5 [facility] Comment on above: Performed By: #### B MISA, CDP #### [address] [address] Medical Scribe: Kristian Garcia MD Platelets (Bld) [#/Vol] 200 10*3/uL Normal 138-453 [facility] Comment on above: Performed By: #### B MP, CDP #### [facility] [employer] [address] [place] [address] Medical Scribe: Kristian Garcia MD RBC (Bld) [#/Vol] 4.75 10*6/uL Normal 3.95-5.11 [facility] Comment on above: Performed By: #### B MP, CDP #### [facility] [facility] [address] [place] [address] Medical Scribe: Kristian Garcia MD WBC (Bld) [#/Vol] 6.6 10*3/uL Normal 3.5-11.3 [facility] Comment on above: Performed By: #### B MISA, CDP #### [employer] [address] [place] [address] Medical Scribe: Kristian Garcia MD Basic Metabolic Panelon Anion gap [Moles/Vol] 13 mmol/L 9 - 16 mmol/L [facility] Calcium [Mass/Vol] 8.9 mg/dL 8.6 - 10. 4 mg/dL [facility] [employer] Chloride [Moles/Vol] 93 mmol/L Low 98 - 10 7 mmol/L [facility] [employer] CO2 [Moles/Vol] 26 mmol/L 20 - 31 mmol/L [facility] [employer] Creatinine [Mass/Vol] 1.1 mg/dL High 0.6 - 0.9 mg/dL [facility] Est, Glom Filt Rate 52 Low - PINF [facility] [employer] Comment on above: These results are not [...] 104 mg/dL High 74 - 99 mg/dL [facility] [employer] Interpretation and review of laboratory results Abnormal [facility] Potassium [Moles/Vol] 3.3 mmol/L Low 3.7 - 5.3 mmol/L [facility] Comment on above: Specimen hemolysis h as exceeded the interference as defined by Bal. Value may be falsely increased. Suggest recollection if clinically indicated. Sodium [Moles/Vol] 132 mmol/L Low 136 - 145 mmol/L [employer] Urea nitrogen [Mass/Vol] 14 mg/dL 8 - 23 mg/dL [facility] Basic Metabolic Profon 03-05 Anion gap [Moles/Vol] 13 mmol/L Normal 9-16 [facility] Comment on above: Performed By: #### B MP, CDP, TSHX ####[facility] [address] [place] [address] Lab Director: Kristian Garcia MD Performed By: #### B MP, CDP, TSHX #### [facility] [address] [place] [address] Medical Scribe: Kristian Garcia MD Calcium [Mass/Vol] 8.9 mg/dL Normal 8.6-10.4 [facility] Comment on above: Performed By: #### B MP, CDP, TSHX ####[facility] [address] [place] [address] Lab Director: Kristian Garcia MD Performed By: #### B MP, CDP, TSHX #### [facility] [address] [place] [address] Medical Scribe: Kristian Garcia MD Chloride [Moles/Vol] 93 mmol/L Low 98-107 [facility] Comment on above: Performed By: #### B MP, CDP, TSHX ####[facility] [address] [place] [address] Lab Director: Kristian Garcia MD Performed By: #### B MP, CDP, TSHX #### [facility] [address] [place] [address] Medical Scribe: Kristian Garcia MD CO2 [Moles/Vol] 26 mmol/L Normal 20-31 [facility] Comment on above: Performed By: #### B MP, CDP, TSHX ####[facility] [address] [place] [address] Lab Director: Kristian Garcia MD Performed By: #### B MP, CDP, TSHX #### [facility] [address] [place] [address] Medical Scribe: Kristian Garcia MD Creatinine [Mass/Vol] 1.1 mg/dL High 0.6-0.9 [facility] Comment on above: Performed By: #### B MP, CDP, TSHX ####[facility] [address] [place] [address] Lab Director: Kristian Garcia MD Performed By: #### B MP, CDP, TSHX #### [facility] [address] [place] [address] Medical Scribe: Kristian Garcia MD GFR/1.73 sq M.predicted among non-blacks MDRD (S/P/Bld) [Vol rate/Area] 52 mL/min/{1.73_m2} Low >60 [facility] Comment on above: Result Comment: These [...] renal tubular secretion. Performed By: #### B MP, CDP, TSHX ####[facility] [address] [place] [address] Lab Director: Kristian Garcia MD Performed By: #### B MP, CDP, TSHX #### [facility] [place] [address] Medical Scribe: Kristian Garcia MD Glucose [Mass/Vol] 104 mg/dL High 74-99 [facility] Comment on above: Performed By: #### B MP, CDP, TSHX ####[facility] [address] [place] [address] Lab Director: Kristian Garcia MD Performed By: #### B MP, CDP, TSHX #### [facility] [place] [address] Medical Scribe: Kristian Garcia MD Potassium [Moles/Vol] 3.3 mmol/L Low 3.7-5.3 [facility] Comment on above: Result Comment: Spec imen hemolysis has exceeded the interference as defined by Bal. Value may be falsely increased. Suggest recollection if clinically indicated. Performed By: #### B MP CDP, TSHX ####[facility] [address] [place] [address] Lab Director: Kristian Garcia MD Performed By: #### B TOBIAS BYNUM, TSHX #### [facility] [address] [place] [address] Medical Scribe: Kristian Garcia MD Sodium [Moles/Vol] 132 mmol/L Low 136-145 [facility] Comment on above: Performed By: #### B TOBIAS BYNUM, TSHX ####[facility] [place] [address] Lab Director: Kristian Garcia MD Performed By: #### B TOBIAS BYNUM, TSHX #### [facility] [address] [place] [address] Medical Scribe: Kristian Garcia MD Urea nitrogen [Mass/Vol] 14 mg/dL Normal 8-23 [facility] Comment on above: Performed By: #### B TOBIAS BYNUM, TSHX ####[facility]yke[address] [place] [address] Lab Director: Kristian Garcia MD Performed By: #### B TOBIAS BYNUM, TSHX #### [facility] [employer] [address] [place] [address] Medical Scribe: Kristian Garcia MD CBC with Auto Differentialon 03-05-2024 Basophils (Bld) [#/Vol] 0.03 10*3/uL [facility] Basophils/100 WBC (Bld) 1 % 0 - 2 % [facility] Eosinophils (Bld) [#/Vol] 0.17 10*3/uL [facility] Eosinophils/100 WBC (Bld) 3 % 1 - 4 % [facility] Erythrocyte distribution width (RBC) [Ratio] 12.8 % 11.8 - 14.4 % [facility] Hematocrit (Bld) [Volume fraction] 39.8 % 36.3 - 47.1 % [facility] Hemoglobin (Bld) [Mass/Vol] 12.7 g/dL 11.9 - 15.1 g/dL [facility] Immature granulocytes (Bld) [#/Vol] [facility] Immature granulocytes/100 WBC (Bld) 0 % [address] [facility] Lymphocytes/100 WBC (Bld) 30 % 24 - 43 % [facility] Lymphocytes/100 WBC (Bld) 1.99 % [facility] MCH (RBC) [Entitic mass] 30.2 pg 25.2 - 33.[address] [facility] MCHC (RBC) [Mass/Vol] 31.9 g/dL 28.4 - 34.8 g/dL [facility] MCV (RBC) [Entitic vol] 94.5 fL 82.6 - 102.[address] [facility] Monocytes/100 WBC (Bld) 12 % 3 - 12 % [facility] Monocytes/100 WBC (Bld) 0.78 % [facility] Neutrophils/100 WBC (Bld) 54 % 36 - 65 % [facility] Nucleated RBC/100 WBC (Bld) [Ratio] 0.0 % 0.0 per [address] [facility] Platelet mean volume (Bld) [Entitic vol] 11.3 fL 8.1 - 13.[address] [facility] Platelets (Bld) [#/Vol] 167 10*3/uL [facility] RBC (Bld) [#/Vol] 4.21 10*6/uL 3.95 - 5.11 m/uL [facility] Segmented neutrophils/100 WBC (Bld) 3.57 % [facility] WBC other (Bld) [#/Vol] 6.6 [facility] CBC with Diffon 03-05-2024 Abs. Basophil 0.03 k/uL Normal 0.00-0.20 [facility] Comment on above: Performed By: #### B MP, CDP, TSHX ####[facility] [address] [place], [place] [phone] Director: Kristian Garcia MD Performed By: #### B MP, CDP, TSHX #### [facility] [address] [place] [address] Medical Scribe: Kristian Garcia MD Abs.Imm.Granulocyte <0.03 Normal 0.00-0.30 [facility] Comment on above: Performed By: #### B MP, CDP, TSHX ####[facility] [address] [place] [address] [phone] Director: Kristian Garcia MD Performed By: #### B MP, CDP, TSHX #### [facility] [employer] [address] [place] [address] Medical Scribe: Kristian Garcia MD Abs.Neutrophil (Seg) 3.57 k/uL Normal 1.50-8.10 [facility] Comment on above: Performed By: #### B MP, CDP, TSHX ####[facility] [address] [place] [address] [phone] Director: Kristian Garcia MD Performed By: #### B MP, CDP, TSHX #### [facility] [employer] [address] [place] [address] Medical Scribe: Kristian Garcia MD Basophils/100 WBC (Bld) 1 % Normal 0-2 [facility] Comment on above: Performed By: #### B MP, CDP, TSHX ####[facility] [address] [place] [address] [phone] Director: Kristian Garcia MD Performed By: #### B MP, CDP, TSHX #### [address] [address] Medical Scribe: Kristian Garcia MD Eosinophils (Bld) [#/Vol] 0.17 10*3/uL Normal 0.00-0.44 [facility] Comment on above: Performed By: #### B MP, CDP, TSHX ####[facility] [address] [place], [place] [address])[phone] Director: Kristian Garcia MD Performed By: #### B MP, CDP, TSHX #### [place] [address] Medical Scribe: Kristian Garcia MD Eosinophils/100 WBC (Bld) 3 % Normal 1-4 [facility] Comment on above: Performed By: #### B MP, CDP, TSHX ####[facility] [address] [place], [place] [address])[phone] Director: Kristian Garcia MD Performed By: #### B MP, CDP, TSHX #### [place] [address] Medical Scribe: Kristian Garcia MD Erythrocyte distribution width (RBC) [Ratio] 12.8 % Normal 11.8-14.4 [facility] Comment on above: Performed By: #### B MP, CDP, TSHX ####[facility] [address] [place], [place] [address])[phone] Director: Kristian Garcia MD Performed By: #### B MP, CDP, TSHX #### [facility] [employer] [address] [place] [address] Medical Scribe: Kristian Garcia MD Hematocrit (Bld) [Volume fraction] 39.8 % Normal 36.3-47.1 [facility] Comment on above: Performed By: #### B MP, CDP, TSHX ####[facility] [address] [place] [address], [place] [phone] Director: Kristian Garcia MD Performed By: #### B MP, CDP, TSHX #### [address] [address] Medical Scribe: Kristian Garcia MD Hemoglobin (Bld) [Mass/Vol] 12.7 g/dL Normal 11.9-15.1 [facility] Comment on above: Performed By: #### B MP, CDP, TSHX ####[facility] [address] [place] [address] [phone] Director: Kristian Garcia MD Performed By: #### B MP, CDP, TSHX #### [address] [address] Medical Scribe: Kristian Garcia MD Immature granulocytes/100 WBC (Bld) 0 % Normal 0 [facility] Comment on above: Performed By: #### B MP, CDP, TSHX ####[facility] [address] [place] [address] [phone] Director: Kristian Garcia MD Performed By: #### B MP, CDP, TSHX #### [address] [address] Medical Scribe: Kristian Garcia MD Lymphocytes (Bld) [#/Vol] 1.99 10*3/uL Normal 1.10-3.70 [facility] Comment on above: Performed By: #### B MP, CDP, TSHX ####[facility] [address] [place] [address] [phone] Director: Kristian Garcia MD Performed By: #### B MP, CDP, TSHX #### [facility] [address] [place] [address] Medical Scribe: Kristian Garcia MD Lymphocytes/100 WBC (Bld) 30 % Normal 24-43 [facility] Comment on above: Performed By: #### B MP, CDP, TSHX ####[facility] [address] [place], [place] [phone] Director: Kristian Garcia MD Performed By: #### B MP, CDP, TSHX #### [facility] [address] [place] [phone] Medical Scribe: Kristian Garcia MD MCH (RBC) [Entitic mass] 30.2 pg Normal 25.2-33.5 [facility] Comment on above: Performed By: #### B MP, CDP, TSHX ####[facility] [address] [place] [address] [phone] Director: Kristian Garcia MD Performed By: #### B MP, CDP, TSHX #### [facility] [address] [place] [address] Medical Scribe: Kristian Garcia MD MCHC (RBC) [Mass/Vol] 31.9 g/dL Normal 28.4-34.8 [facility] Comment on above: Performed By: #### B MP, CDP, TSHX ####[facility] [facility] [address] [place] [address] [phone] Director: Kristian Garcia MD Performed By: #### B MP, CDP, TSHX #### [facility] [address] [place] [phone] Medical Scribe: Kristian Garcia MD MCV (RBC) [Entitic vol] 94.5 fL Normal 82.6-102.9 [facility] Comment on above: Performed By: #### B MP, CDP, TSHX ####[facility] [address] [place] [address] [phone] Director: Kristian Garcia MD Performed By: #### B MP, CDP, TSHX #### [facility] [address] [place] [address] Medical Scribe: Kristian Garcia MD Monocytes (Bld) [#/Vol] 0.78 10*3/uL Normal 0.10-1.20 [facility] Comment on above: Performed By: #### B MP, CDP, TSHX ####[address] [phone] Director: Kristian Garcia MD Performed By: #### B MP, CDP, TSHX #### [address] [address] Medical Scribe: Kristian Garcia MD Monocytes/100 WBC (Bld) 12 % Normal 3-12 [facility] Comment on above: Performed By: #### B MP, CDP, TSHX ####[address] [phone] Director: Kristian Garcia MD Performed By: #### B MP, CDP, TSHX #### [address] [address] Medical Scribe: Kristian Garcia MD Neutrophil (Seg) 54 % Normal 36-65 [facility] Comment on above: Performed By: #### B MP, CDP, TSHX ####[address] [phone] Director: Kristian Garcia MD Performed By: #### B MP, CDP, TSHX #### [address] [address] Medical Scribe: Kristian Garcia MD NRBC Automated 0.0 per 100 WBC Normal 0.0 [facility] Comment on above: Performed By: #### B MP, CDP, TSHX ####[address] [phone] Director: Kristian Garcia MD Performed By: #### B MP, CDP, TSHX #### [address] [address] Medical Scribe: Kristian Garcia MD Platelet mean volume (Bld) [Entitic vol] 11.3 fL Normal 8.1-13.5 [facility] Comment on above: Performed By: #### B MP, CDP, TSHX ####[facility] [address] [place] [address] Lab Director: Kristian Garcia MD Performed By: #### B MP, CDP, TSHX #### [facility] [address] [place] [address] Medical Scribe: Kristian Garcia MD Platelets (Bld) [#/Vol] 167 10*3/uL Normal 138-453 [facility] Comment on above: Performed By: #### B MP, CDP, TSHX ####[facility] [address] [place] [address] [phone] Director: Kristian Garcia MD Performed By: #### B MP, CDP, TSHX #### [facility] [address] [place] [address] Medical Scribe: Kristian Garcia MD RBC (Bld) [#/Vol] 4.21 10*6/uL Normal 3.95-5.11 [facility] Comment on above: Performed By: #### B MP, CDP, TSHX ####[facility] [address] [place] [address] Lab Director: Kristian Garcia MD Performed By: #### B MP, CDP, TSHX #### [facility] [address] [place] [address] Medical Scribe: Kristian Garcia MD WBC (Bld) [#/Vol] 6.6 10*3/uL Normal 3.5-11.3 [facility] Comment on above: Performed By: #### B MP, CDP, TSHX ####[facility] [address] [place] [address] Lab Director: Kristian Garcia MD Performed By: #### B MP, CDP, TSHX #### [place] [id number] [place] [phone] Medical Scribe: Kristian Garcia MD CT CHEST ABDOMEN PELVIS [...] Gómez Valencia MD 03/05/24 Final result Normal [facility] CT LUMBAR SPINE BONY RECONST RUCTIONon [...] Gómez Valencia MD 03/05/24 Final result Normal [facility] CT THORACIC SPINE BONY RECON STRUCTIONon 01-02-2025 CT THORACIC SPINE BONY RECONSTRUCTION EXAMINATION: CT [...] Gómez Valencia MD 03/05/24 Final result Normal [facility] No Panel Informationon 03-05 1. No acute traumati c injury identified in the chest, abdomen or pelvis. 2. No acute osseous abnormality identified in the thoracic or lumbar spine. 3. Chronic findings, as described. [facility] RIS CONSOLIDATED EXAMINATION: CT OF THE CHEST, [...] nerve roots is necessary, MRI is recommended. [facility] RIS CONSOLIDATED Gómez Valencia MD - [...] lumbar spine. 3. Chronic findings, as described. [facility] No Panel InformationOrdered By: Gómez Valencia on 03-05-2024 [facility] Work Phone: TSH reflex to FT4on 03-05-19 25 TSH Qn 1.70 m[IU]/L [facility] TSH w/reflex to FT4on 2024 Thyroid Stim. Horm. 1.70 uIU/mL Normal 0.27-4.20 [facility] Comment on above: Performed By: #### B MP, CDP, TSHX ####[email or web address] [address] [place], [place] [phone] Lab Director: Kristian Garcia MD Performed By: #### B MP, CDP, TSHX #### [employer] [address] [place] [address] Medical Scribe: Kristian Garcia MD Basic Metabolic Panelon Anion gap [Moles/Vol] 10 mmol/L 9 - 16 mmol/L [facility] Calcium [Mass/Vol] 8.4 mg/dL Low 8.6 - 10. 4 mg/dL [facility] Chloride [Moles/Vol] 99 mmol/L 98 - 10 7 mmol/L [facility] CO2 [Moles/Vol] 28 mmol/L 20 - 31 mmol/L [facility] Creatinine [Mass/Vol] 0.9 mg/dL 0.6 - 0.9 mg/dL [facility] Est, Glom Filt Rate 66 - PINF [facility] Comment on above: These results are not intended for use in patients <18 years of age. eGFR results are calculated without a race factor using the 2021 CKD-EPI equation. Careful clinical correlation is recommended, particularly when comparing to results calculated using previous equations. The CKD-EPI equation is less accurate in patients with extremes of muscle mass, extra-renal metabolism of creatine, excessive creatine ingestion, or following therapy that affects renal tubular secretion. Glucose [Mass/Vol] 106 mg/dL High 74 - 99 mg/dL [facility] Interpretation and review of laboratory results Abnormal [facility] [employer] Potassium [Moles/Vol] 3.0 mmol/L Low 3.7 - 5.3 mmol/L [facility] Sodium [Moles/Vol] 137 mmol/L 136 - 145 mmol/L [facility] Urea nitrogen [Mass/Vol] 11 mg/dL 8 - 23 mg/dL [facility] Anion gap [Moles/Vol] 11 mmol/L 9 - 16 mmol/L [facility] [employer] Calcium [Mass/Vol] 8.4 mg/dL Low 8.6 - 10. 4 mg/dL [facility] [employer] Chloride [Moles/Vol] 99 mmol/L 98 - 10 7 mmol/L [facility] CO2 [Moles/Vol] 26 mmol/L 20 - 31 mmol/L [facility] Creatinine [Mass/Vol] 0.9 mg/dL 0.6 - 0.9 mg/dL [facility] [employer] Est, Glom Filt Rate 66 - PINF [facility] Comment on above: These results are not intended for use in patients <18 years of age. eGFR results are calculated without a race factor using the 1 CKD-EPI equation. Careful clinical correlation is recommended, particularly when comparing to results calculated using previous equations. The CKD-EPI equation is less accurate in patients with extremes of muscle mass, extra-renal metabolism of creatine, excessive creatine ingestion, or following therapy that affects renal tubular secretion. Glucose [Mass/Vol] 110 mg/dL High 74 - 99 mg/dL [facility] Interpretation and review of laboratory results Abnormal [facility] Potassium [Moles/Vol] 2.9 mmol/L Critically low 3.7 - 5.3 mmol/L [facility] [employer] Comment on above: Specimen hemolysis h as exceeded the interference as defined by Bal. Value may be falsely increased. Suggest recollection if clinically indicated. Sodium [Moles/Vol] 136 mmol/L 136 - 145 mmol/L [facility] Urea nitrogen [Mass/Vol] 11 mg/dL 8 - 23 mg/dL [facility] Basic Metabolic Profon 03-04 Anion gap [Moles/Vol] 10 mmol/L Normal 9-16 [facility] Comment on above: Performed By: #### P HO, MG, BMP #### [facility] [employer] [address] [place] [phone] Medical Scribe: Kristian Garcia MD Performed By: #### P HO, BMP, MG ####[employer] [address] [place] [address] Lab Director: Kristian Garcia MD Calcium [Mass/Vol] 8.4 mg/dL Low 8.6-10.4 [facility] Comment on above: Performed By: #### P HO, MG, BMP #### [employer] [address] [place] [address] Medical Scribe: Kristian Garcia MD Performed By: #### P HO, BMP, MG ####[employer] [address] [place] [address] Lab Director: Kristian Garcia MD Chloride [Moles/Vol] 99 mmol/L Normal 98-107 [facility] Comment on above: Performed By: #### P HO, MG, BMP #### [employer] [address] [place] [address] Medical Scribe: Kristian Garcia MD Performed By: #### P HO, BMP, MG ####[employer] [address] [place] [address] Lab Director: Kristian Garcia MD CO2 [Moles/Vol] 28 mmol/L Normal 20-31 [facility] Comment on above: Performed By: #### P HO, MG, BMP #### [employer] [address] [place] [address] Medical Scribe: Kristian Garcia MD Performed By: #### P HO, BMP, MG ####[facility] [address] [place] [address] Lab Director: Kristian Garcia MD Creatinine [Mass/Vol] 0.9 mg/dL Normal 0.6-0.9 [facility] Comment on above: Performed By: #### P HO, MG, BMP #### [facility] [address] [place] [address] Medical Scribe: Kristian Garcia MD Performed By: #### P HO, BMP, MG ####[facility] [address] [place] [address] Lab Director: Kristian Garcia MD GFR/1.73 sq M.predicted among non-blacks MDRD (S/P/Bld) [Vol rate/Area] 66 mL/min/{1.73_m2} Normal >60 [facility] Comment on above: Result Comment: These [...] By: #### P HO, MG, BMP #### [facility] [address] [place] [address] Medical Scribe: Kristian Garcia MD Performed By: #### P HO, BMP, MG ####[facility] [address] [place] [address] Lab Director: Kristian Garcia MD Glucose [Mass/Vol] 106 mg/dL High 74-99 [facility] Comment on above: Performed By: #### P HO, MG, BMP #### [facility] [employer] [address] [place] [address] [phone] Medical Scribe: Kristian Garcia MD Performed By: #### P HO, BMP, MG ####[facility] [address] [place] [address] Lab Director: Kristian Garcia MD Potassium [Moles/Vol] 3.0 mmol/L Low 3.7-5.3 [facility] Comment on above: Performed By: #### P HO, MG, BMP #### [facility] [address] [place] [address] Medical Scribe: Kristian Garcia MD Performed By: #### P HO, BMP, MG ####[facility] [address] [place] [address] Lab Director: Kristian Garcia MD Sodium [Moles/Vol] 137 mmol/L Normal 136-145 [facility] Comment on above: Performed By: #### P HO, MG, BMP #### [facility] [address] [place] [address] Medical Scribe: Kristian Garcia MD Performed By: #### P HO, BMP, MG ####[facility] [address] [place] [address] Lab Director: Kristian Garcia MD Urea nitrogen [Mass/Vol] 11 mg/dL Normal 8-23 [facility] Comment on above: Performed By: #### P HO, MG, BMP #### [facility] [address] [place] [address] Medical Scribe: Kristian Garcia MD Performed By: #### P HO, BMP, MG ####[facility] [address] [place] [address] Lab Director: Kristian Garcia MD Anion gap [Moles/Vol] 11 mmol/L Normal 9-16 [facility] Comment on above: Performed By: #### B MP, CDP #### [facility] [address] [place] [address] Medical Scribe: Kristian Garcia MD Performed By: #### C DP, BMP #### [address] [address] Medical Scribe: Kristian Garcia MD Calcium [Mass/Vol] 8.4 mg/dL Low 8.6-10.4 [facility] Comment on above: Performed By: #### B MP, CDP #### [address] [address] Medical Scribe: Kristian Garcia MD Performed By: #### C DP, BMP #### [address] [address] Medical Scribe: Kristian Garcia MD Chloride [Moles/Vol] 99 mmol/L Normal 98-107 [facility] Comment on above: Performed By: #### B MP, CDP #### [address] [address] Medical Scribe: Kristian Garcia MD Performed By: #### C DP, BMP #### [address] [address] Medical Scribe: Kristian Garcia MD CO2 [Moles/Vol] 26 mmol/L Normal 20-31 [facility] Comment on above: Performed By: #### B MP, CDP #### [address] [address] Medical Scribe: Kristian Garcia MD Performed By: #### C DP, BMP #### [address] [address] Medical Scribe: Kristian Garcia MD Creatinine [Mass/Vol] 0.9 mg/dL Normal 0.6-0.9 [facility] Comment on above: Performed By: #### B MP, CDP #### [address] [address] Medical Scribe: Kristian Garcia MD Performed By: #### C DP, BMP #### [address] [phone] Medical Scribe: Kristian Garcia MD GFR/1.73 sq M.predicted among non-blacks MDRD (S/P/Bld) [Vol rate/Area] 66 mL/min/{1.73_m2} Normal >60 [facility] Comment on above: Result Comment: These [...] renal tubular secretion. Performed By: #### B MP, CDP #### [address] [phone] Medical Scribe: Kristian Garcia MD Performed By: #### C DP, BMP #### [facility] [address] [address] Medical Scribe: Kristian Garcia MD Glucose [Mass/Vol] 110 mg/dL High 74-99 [facility] Comment on above: Performed By: #### B MP, CDP #### [facility] [address] [address] Medical Scribe: Kristian Garcia MD Performed By: #### C DP, BMP #### [facility] [address] [place] [address] Medical Scribe: Kristian Garcia MD Potassium [Moles/Vol] 2.9 mmol/L Critically low 3.7-5.3 [facility] Comment on above: Result Comment: Spec imen hemolysis has exceeded the interference as defined by Bal. Value may be falsely increased. Suggest recollection if clinically indicated. Performed By: #### B MP, CDP #### [address] [address] Medical Scribe: Kristian Garcia MD Performed By: #### C DP, BMP #### [address] [address] Medical Scribe: Kristian Garcia MD Sodium [Moles/Vol] 136 mmol/L Normal 136-145 [facility] Comment on above: Performed By: #### B MP, CDP #### [address] [address] Medical Scribe: Kristian Garcia MD Performed By: #### C DP, BMP #### [address] [address] Medical Scribe: Kristian Garcia MD Urea nitrogen [Mass/Vol] 11 mg/dL Normal 8-23 [facility] Comment on above: Performed By: #### B MP, CDP #### [address] [address] Medical Scribe: Kristian Garcia MD Performed By: #### C DP, BMP #### [address] [address] Medical Scribe: Kristian Garcia MD CBC with Auto Differentialon 03-04-2024 Basophils (Bld) [#/Vol] 0.03 10*3/uL [facility] Basophils/100 WBC (Bld) 1 % 0 - 2 % [facility] Eosinophils (Bld) [#/Vol] 0.09 10*3/uL [facility] Eosinophils/100 WBC (Bld) 2 % 1 - 4 % [facility] Erythrocyte distribution width (RBC) [Ratio] 13.3 % 11.8 - 14.4 % [facility] Hematoc[facility] (Bld) [Volume fraction] 40.4 % 36.3 - 47.1 % [facility] Hemoglobin (Bld) [Mass/Vol] 12.6 g/dL 11.9 - 15.1 g/dL [facility] Immature granulocytes (Bld) [#/Vol] [facility] Immature granulocytes/100 WBC (Bld) 0 % 0 [facility] Interpretation and review of laboratory results Abnormal [facility] Lymphocytes/100 WBC (Bld) 24 % 24 - 43 % [facility] Lymphocytes/100 WBC (Bld) 1.43 % [facility] MCH (RBC) [Entitic mass] 29.9 pg 25.2 - 33.5 pg [facility] MCHC (RBC) [Mass/Vol] 31.2 g/dL 28.4 - 34.8 g/dL [facility] MCV (RBC) [Entitic vol] 95.7 fL 82.6 - 102.9 fL [facility] Monocytes/100 WBC (Bld) 17 % High 3 - 12 % [facility] Monocytes/100 WBC (Bld) 1.02 % [facility] Neutrophils/100 WBC (Bld) 57 % 36 - 65 % [facility] Nucleated RBC/100 WBC (Bld) [Ratio] 0.0 % 0.0 per 100 WBC [facility] Platelet, Fluorescence [address] [facility] Platelets (Bld) [#/Vol] See Reflexed IPF Result [facility] Platelets reticulated/100 platelets Auto (Bld) 3.9 % 1.1 - 10.3 % [facility] RBC (Bld) [#/Vol] 4.22 10*6/uL 3.95 - 5.11 m/uL [facility] Segmented neutrophils/100 WBC (Bld) 3.40 % [facility] WBC other (Bld) [#/Vol] 6.0 [facility] CBC with Diffon 03-04-2024 Abs. Basophil 0.03 k/uL Normal 0.00-0.20 [facility] Comment on above: Performed By: #### B MP, CDP #### [employer] [address] [place] [address] Medical Scribe: Kristian Garcia MD Performed By: #### C DP, BMP #### [address] [address] Medical Scribe: Kristian Garcia MD Abs.Imm.Granulocyte <0.03 Normal 0.00-0.30 [facility] Comment on above: Performed By: #### B MP, CDP #### [address] [address] Medical Scribe: Kristian Garcia MD Performed By: #### C DP, BMP #### [address] [address] Medical Scribe: Kristian Garcia MD Abs.Neutrophil (Seg) 3.40 k/uL Normal 1.50-8.10 [facility] Comment on above: Performed By: #### B MP, CDP #### [address] [address] Medical Scribe: Kristian Garcia MD Performed By: #### C DP, BMP #### [address] [address] Medical Scribe: Kristian Garcia MD Basophils/100 WBC (Bld) 1 % Normal 0-2 [facility] Comment on above: Performed By: #### B MP, CDP #### [address] [address] Medical Scribe: Kristian Garcia MD Performed By: #### C DP, BMP #### [facility] [employer] [address] [place] [address] Medical Scribe: Kristian Garcia MD Eosinophils (Bld) [#/Vol] 0.09 10*3/uL Normal 0.00-0.44 [facility] Comment on above: Performed By: #### B MP, CDP #### [facility] [employer] [address] [place] [address] Medical Scribe: Kristian Garcia MD Performed By: #### C DP, BMP #### [facility] [employer] [address] [place] [address] Medical Scribe: Kristian Garcia MD Eosinophils/100 WBC (Bld) 2 % Normal 1-4 [facility] Comment on above: Performed By: #### B MP, CDP #### [address] [address] Medical Scribe: Kristian Garcia MD Performed By: #### C DP, BMP #### [address] [address] Medical Scribe: Kristian Garcia MD Erythrocyte distribution width (RBC) [Ratio] 13.3 % Normal 11.8-14.4 [facility] Comment on above: Performed By: #### B MP, CDP #### [address] [address] Medical Scribe: Kristian Garcia MD Performed By: #### C DP, BMP #### [address] [address] Medical Scribe: Kristian Garcia MD Hematocrit (Bld) [Volume fraction] 40.4 % Normal 36.3-47.1 [facility] Comment on above: Performed By: #### B MP, CDP #### [address] [address] Medical Scribe: Kristian Garcia MD Performed By: #### C DP, BMP #### [facility] [employer] [address] [place] [address] Medical Scribe: Kristian Garcia MD Hemoglobin (Bld) [Mass/Vol] 12.6 g/dL Normal 11.9-15.1 [facility] Comment on above: Performed By: #### B MP, CDP #### [facility] [employer] [address] [place] [address] Medical Scribe: Kristian Garcia MD Performed By: #### C DP, BMP #### [facility] [employer] [address] [place] [address] Medical Scribe: Kristian Garcia MD Immature granulocytes/100 WBC (Bld) 0 % Normal 0 [facility] Comment on above: Performed By: #### B MP, CDP #### [address] [address] Medical Scribe: Kristian Garcia MD Performed By: #### C DP, BMP #### [facility] [employer] [address] [place] [address] Medical Scribe: Kristian Garcia MD Lymphocytes (Bld) [#/Vol] 1.43 10*3/uL Normal 1.10-3.70 [facility] Comment on above: Performed By: #### B MP, CDP #### [address] [address] Medical Scribe: Kristian Garcia MD Performed By: #### C DP, BMP #### [facility] [employer] [address] [place] [address] Medical Scribe: Kristian Garcia MD Lymphocytes/100 WBC (Bld) 24 % Normal 24-43 [facility] Comment on above: Performed By: #### B MP, CDP #### [address] [address] Medical Scribe: Kristian Garcia MD Performed By: #### C DP, BMP #### [facility] [employer] [address] [place] [address] Medical Scribe: Kristian Garcia MD MCH (RBC) [Entitic mass] 29.9 pg Normal 25.2-33.5 [facility] Comment on above: Performed By: #### B MP, CDP #### [facility] [employer] [address] [place] [address] Medical Scribe: Kristian Garcia MD Performed By: #### C DP, BMP #### [address] [address] Medical Scribe: Kristian Garcia MD MCHC (RBC) [Mass/Vol] 31.2 g/dL Normal 28.4-34.8 [facility] Comment on above: Performed By: #### B MP, CDP #### [address] [address] Medical Scribe: Kristian Gracia MD Performed By: #### C DP, BMP #### [address] [address] Medical Scribe: Kristian Garcia MD MCV (RBC) [Entitic vol] 95.7 fL Normal 82.6-102.9 [facility] Comment on above: Performed By: #### B MP, CDP #### [address] [address] Medical Scribe: Kristian Garcia MD Performed By: #### C DP, BMP #### [address] [address] Medical Scribe: Kristian Garcia MD Monocytes (Bld) [#/Vol] 1.02 10*3/uL Normal 0.10-1.20 [facility] Comment on above: Performed By: #### B MP, CDP #### [address] [address] Medical Scribe: Kristian Garcia MD Performed By: #### C DP, BMP #### [address] [address] Medical Scribe: Kristian Garcia MD Monocytes/100 WBC (Bld) 17 % High 3-12 [facility] Comment on above: Performed By: #### B MP, CDP #### [address] [address] Medical Scribe: Kristian Garcia MD Performed By: #### C DP, BMP #### [facility] [employer] [address] [place] [address] Medical Scribe: Kristian Garcia MD Neutrophil (Seg) 57 % Normal 36-65 [facility] Comment on above: Performed By: #### B MP, CDP #### [address] [address] Medical Scribe: Kristian Garcia MD Performed By: #### C DP, BMP #### [facility] [address] [place] [address] Medical Scribe: Kristian Garcia MD NRBC Automated 0.0 per 100 WBC Normal 0.0 [facility] Comment on above: Performed By: #### B MP, CDP #### [address] [address] Medical Scribe: Kristian Garcia MD Performed By: #### C DP, BMP #### [facility] [employer] [address] [place] [address] Medical Scribe: Kristian Garcia MD Platelet Count See Reflexed IPF Result Normal 138-453 [facility] Comment on above: Performed By: #### B MP, CDP #### [address] [address] Medical Scribe: Kristian Garcia MD Performed By: #### C DP, BMP #### [facility] [employer] [employer] [address] [place] [address] Medical Scribe: Kristian Garcia MD Platelet, Fluoresc. 138 k/uL Normal 138-453 [facility] Comment on above: Performed By: #### B MP, CDP #### [address] [address] Medical Scribe: Kristian Garcia MD Performed By: #### C DP, BMP #### [facility] [employer] [address] [place] [address] Medical Scribe: Kristian Garcia MD PLT, Immature Fract. 3.9 % Normal 1.1-10.3 [facility] Comment on above: Performed By: #### B MP, CDP #### [address] [address] Medical Scribe: Kristian Garcia MD Performed By: #### C DP, BMP #### [address] [address] Medical Scribe: Kristian Garcia MD RBC (Bld) [#/Vol] 4.22 10*6/uL Normal 3.95-5.11 [facility] Comment on above: Performed By: #### B MP, CDP #### [address] [address] Medical Scribe: Kristian Garcia MD Performed By: #### C DP, BMP #### [address] [address] Medical Scribe: Kristian Garcai MD WBC (Bld) [#/Vol] 6.0 10*3/uL Normal 3.5-11.3 [facility] Comment on above: Performed By: #### B MP, CDP #### [address] [address] Medical Scribe: Kristian Garcia MD Performed By: #### C DP, BMP #### [address] [address] Medical Scribe: Kristian Garcia MD CT HEAD WO CONTRASTon [...] Alber Dodson MD 03/04/24 Final result Normal [facility] CT Head WO contraston 2024 Persistent but impro ving small volume of subarachnoid hemorrhage. [facility] CONSOLID[facility] EXAMINATION: CT OF THE HEAD WITHOUT [...] paranasal sinuses. SOFT TISSUES/SKULL: No skull fracture. [facility] Alber Dodson MD - 03/04/2024 EXAMINATION: [...] but improving small volume of subarachnoid hemorrhage. [facility] Radiology Study observation (narrative) [facility] Magnesiumon 03-04-2024 Magnesium [Mass/Vol] 2.4 mg/dL 1.6 - 2 .4 mg/dL [facility] Magnesium [Mass/Vol] 2.4 mg/dL Normal 1.6-2.4 [facility] Comment on above: Performed By: #### P HO, MG, BMP #### [employer] [address] [place], [place] [phone] Medical Scribe: Kristian Garcia MD Performed By: #### P HO, BMP, MG ####[employer] [place], [place] [phone] Lab Director: Kristian Garcia MD No Panel Informationon 03-04 [facility] Phosphoruson 03-04-2024 Phosphate [Mass/Vol] 2.9 mg/dL 2.5 - 4 .5 mg/dL [facility] Phosphorus, Inorg.on 025 Phosphorus, Inorg. 2.9 mg/dL Normal 2.5-4.5 [facility] Comment on above: Performed By: #### P HO, MG, BMP #### [employer] [address] [place], [place] [phone] Medical Scribe: Kristian Garcia MD Performed By: #### P HO, BMP, MG ####[email or web address] [address] [place], [place] [phone] Lab Director: Kristian Garcia MD CT HEAD [...] Alber Dodson MD 03/03/24 Final result Normal [facility] CT Head WO contraston 2023 Trace subarachnoid hemorrhage along the interhemispheric falx. The findings were sent to the Radiology Results Communication Center at 4:37 pm on 03/03/2024 to be communicated to a licensed caregiver. [facility] RIS CONSOLIDATED EXAMINATION: CT OF THE [...] nasal fracture. SOFT TISSUES/SKULL: No skull fracture. [facility] Alber Merchant MD - 03/03/2024 EXAMINATION: CT OF THE [...] eval Reason for Exam: SAH (subarachnoid hemorrhage) ([facility]) FINDINGS: BRAIN/VENTRICLES: There is a trace volume [...] to be communicated to a licensed caregiver. [facility] CT Head WO contrastOrdered B y: Alber Dodson on 03-03-2024 [facility] Work Phone: No Panel Informationon 03-03 Radiology Study observation (narrative) [facility] TYPE AND SCREENon 03-03-2024 ABO and Rh group Nom (Bld) Blood group O Rh(D) positive [facility] Arm Band Number [id number] [facility] Blood Bank Sample Expiration 03/06/2024,9766 [facility] Blood group antibodies identified Nom Negative [facility] Trauma Panelon 03-03-2024 Anion gap [Moles/Vol] 11 mmol/L 9 - 16 mmol/L [facility] aPTT Coag (Bld) [Time] 25.1 s Barrett n [facility] Comment on above: IV Heparin Therapy Range: 66.0-92.0 sec Blood Bank Specimen BILL FOR SERVICES PERFORMED [facility] Carboxyhemoglobin (Bld) [Mass fraction] 2.3 % 0 - 5 % [facility] Comment on above: Reference Range: Non-Smokers 0-2% Average Smoker 2-4% Heavy Smoker <10% Chloride [Moles/Vol] 95 mmol/L Low 98 - 10 7 mmol/L [facility] CO2 [Moles/Vol] 29 mmol/L 20 - 31 mmol/L [facility] Creatinine [Mass/Vol] 1.1 mg/dL High 0.6 - 0.9 mg/dL [facility] Erythrocyte distribution width (RBC) [Ratio] 13.4 % 11.8 - 14.4 % [facility] Est, Glom Filt Rate 34 Low - PINF [facility] Comment on above: These results [...] Ethanol percent <0.010 NINF - 0.010 % [facility] Ethanolamine [Mass/Vol] <10 NINF - 10 mg/dL [facility] Glucose [Mass/Vol] 129 mg/dL High 74 - 99 mg/dL [facility] HCG ( test) Ql Negative NEGATIVE [facility] Comment on above: Specimens with hCG l evels near the threshold of the test (25 mIU/mL) may give a negative or indeterminate result. In such cases, another test should be performed with a new specimen in 48-72 hours. If early is suspected clinically in this setting, correlation with quantitative serum b-hCG level is suggested. [employer] has confirmed the use of plasma for this test. This has not been cleared or approved by the U.S. Food and Drug Administration. The FDA has determined that such clearance is not necessary. HCO3 (Bld) [Moles/Vol] 29.9 mmol/L 24 - 30 mmol/L [facility] Hematocrit (Bld) [Volume fraction] 41.7 % 36.3 - 47.1 % [facility] Hemoglobin (Bld) [Mass/Vol] 13.7 g/dL 11.9 - 15.1 g/dL [facility] INR Coag (PPP) [Relative time] 1.0 {INR} [facility] Comment on above: Therapeutic Range: Moderate Anticoagulant Intensity: INR = 2.0-3.0 High Anticoagulant Intensity: INR = 2.5-3.5 Interpretation and review of laboratory results Abnormal [facility] MCH (RBC) [Entitic mass] 30.2 pg 25.2 - 33.5 pg [facility] MCHC (RBC) [Mass/Vol] 32.9 g/dL 28.4 - 34.8 g/dL [facility] MCV (RBC) [Entitic vol] 92.1 fL 82.6 - 102.9 fL [facility] Nucleated RBC/100 WBC (Bld) [Ratio] 0.0 % 0.0 per 100 WBC [facility] Oxygen saturation in Blood 82.7 % 60.0 - 85.0 % [facility] Oxygen/Inspired gas Respiratory system --on ventilator INFORMATION NOT PROVIDED [facility] pCO2, Michael 50.7 [facility] pH, Michael 7.389 7.320 - 7.420 [facility] Platelet mean volume (Bld) [Entitic vol] 10.3 fL 8.1 - 13.5 fL [facility] Platelets (Bld) [#/Vol] 141 10*3/uL [facility] PO2, Michael 47.8 [facility] Positive Base Excess, Michael 3.8 mmol/L High 0.0 - 2.0 mmol/L [facility] Potassium [Moles/Vol] 3.3 mmol/L Low 3.7 - 5.3 mmol/L [facility] PT Coag (PPP) [Time] 13.0 s [facility] RBC (Bld) [#/Vol] 4.53 10*6/uL 3.95 - 5.11 m/uL [facility] Sodium [Moles/Vol] 135 mmol/L Low 136 - 145 mmol/L [facility] Urea nitrogen [Mass/Vol] 11 mg/dL 8 - 23 mg/dL [facility] WBC other (Bld) [#/Vol] 8.9 [facility] Trauma Profileon 03-03-2024 Anion gap [Moles/Vol] 11 mmol/L Normal 9-16 [facility] Comment on above: Performed By: #### E RTPF #### [facility] [place] [address] Medical Scribe: Kristian Garcia MD Performed By: #### E RTPF ####[facility] [place] [address] [phone] Director: Kristian Garcia MD Chloride [Moles/Vol] 95 mmol/L Low 98-107 [facility] Comment on above: Performed By: #### E RTPF #### [facility] [place] [address] Medical Scribe: Kristian Garcia MD Performed By: #### E RTPF ####[facility] [place] [address] Lab Director: Kristian Garcia MD CO2 [Moles/Vol] 29 mmol/L Normal [facility] Comment on above: Performed By: #### E RTPF #### [facility] [place] [address] Medical Scribe: Kristian Garcia MD Performed By: #### E RTPF ####[facility] [place] [address] Lab Director: Kristian Garcia MD Creatinine [Mass/Vol] 1.1 mg/dL High 0.6-0.9 [facility] Comment on above: Performed By: #### E RTPF #### [facility] [employer] [facility] [place] [address] Medical Scribe: Kristian Garcia MD Performed By: #### E RTPF ####[facility] [address] [place], [place] [phone] Director: Kristian Garcia MD Ethanol [Mass/Vol] mg/dL Normal <10 [facility] Comment on above: Performed By: #### E RTPF #### [address] [address] Medical Scribe: Kristian Garcia MD Performed By: #### E RTPF ####[address] [address] Lab Director: Kristian Garcia MD Ethanol percent <0.010 Normal <0.010 [facility] Comment on above: Performed By: #### E RTPF #### [address] [address] Medical Scribe: Kristian Garcia MD Performed By: #### E RTPF ####[address] [address] Lab Director: Kristian Garcia MD GFR/1.73 sq M.predicted among non-blacks MDRD (S/P/Bld) [Vol rate/Area] 34 mL/min/{1.73_m2} Low >60 [facility] Comment on above: Result Comment: These [...] secretion. Performed By: #### E RTPF #### [facility] [employer] [address] [place] [address] Medical Scribe: Kristian Garcia MD Performed By: #### E RTPF ####[address] [address] Lab Director: Kristian Garcia MD Glucose [Mass/Vol] 129 mg/dL High 74-99 [facility] Comment on above: Performed By: #### E RTPF #### [address] [address] Medical Scribe: Kristian Garcia MD Performed By: #### E RTPF ####[address] [address] Lab Director: Kristian Garcia MD Potassium [Moles/Vol] 3.3 mmol/L Low 3.7-5.3 [facility] Comment on above: Performed By: #### E RTPF #### [address] [address] Medical Scribe: Kristian Garcia MD Performed By: #### E RTPF ####[address] [address] Lab Director: Kristian Garcia MD Sodium [Moles/Vol] 135 mmol/L Low 136-145 [facility] Comment on above: Performed By: #### E RTPF #### [address] [address] Medical Scribe: Kristian Garcia MD Performed By: #### E RTPF ####[address] [address] Lab Director: Kristian Garcia MD Urea nitrogen [Mass/Vol] 11 mg/dL Normal 8-23 [facility] Comment on above: Performed By: #### E RTPF #### [address] [address] Medical Scribe: Kristian Garcia MD Performed By: #### E RTPF ####[address] [address] Lab Director: Kristian Garcia MD aPTT Coag (Bld) [Time] 25.1 s Normal 23.0-36.5 [facility] Comment on above: Result Comment: IV Heparin Therapy Range: 66.0-92.0 sec Performed By: #### E RTPF #### [address] [address] Medical Scribe: Kristian Garcia MD Performed By: #### E RTPF ####[address] [address] Lab Director: Kristian Garcia MD INR Coag (PPP) [Relative time] 1.0 {INR} Normal [facility] Comment on above: Result Comment: Therapeutic Range: Moderate Anticoagulant Intensity: INR = 2.0-3.0 High Anticoagulant Intensity: INR = 2.5-3.5 Performed By: #### E RTPF #### [address] [address] Medical Scribe: Kristian Garcia MD Performed By: #### E RTPF ####[address] [phone] Director: Kristian Garcia MD PT Coag (PPP) [Time] 13.0 s Normal 11.7-14.9 [facility] Comment on above: Performed By: #### E RTPF #### [address] [address] Medical Scribe: Kristian Garcia MD Performed By: #### E RTPF ####[address] [phone] Director: Kristian Garcia MD Erythrocyte distribution width (RBC) [Ratio] 13.4 % Normal 11.8-14.4 [facility] Comment on above: Performed By: #### E RTPF #### [address] [place] [address] Medical Scribe: Kristian Garcia MD Performed By: #### E RTPF ####[address] [address] Lab Director: Kristian Garcia MD Hematocrit (Bld) [Volume fraction] 41.7 % Normal 36.3-47.1 [facility] Comment on above: Performed By: #### E RTPF #### [address] [address] Medical Scribe: Kristian Garcia MD Performed By: #### E RTPF ####[address] [address] Lab Director: Kristian Garcia MD Hemoglobin (Bld) [Mass/Vol] 13.7 g/dL Normal 11.9-15.1 [facility] Comment on above: Performed By: #### E RTPF #### [address] [address] Medical Scribe: Kristian Garcia MD Performed By: #### E RTPF ####[address] [address] Lab Director: Kristian Garcia MD MCH (RBC) [Entitic mass] 30.2 pg Normal 25.2-33.5 [facility] Comment on above: Performed By: #### E RTPF #### [address] [place] [address] Medical Scribe: Krisitan Garcia MD Performed By: #### E RTPF ####[address] [address] Lab Director: Kristian Garcia MD MCHC (RBC) [Mass/Vol] 32.9 g/dL Normal 28.4-34.8 [facility] Comment on above: Performed By: #### E RTPF #### [address] [address] Medical Scribe: Kristian Garcia MD Performed By: #### E RTPF ####[address] [address] Lab Director: Kristian Garcia MD MCV (RBC) [Entitic vol] 92.1 fL Normal 82.6-102.9 [facility] Comment on above: Performed By: #### E RTPF #### [place] [address] Medical Scribe: Kristian Garcia MD Performed By: #### E RTPF ####[place], [place] [phone] Director: Kristian Garcia MD NRBC Automated 0.0 per 100 WBC Normal 0.0 [facility] Comment on above: Performed By: #### E RTPF #### [place] [address] Medical Scribe: Kristian Garcia MD Performed By: #### E RTPF ####[place] [address] Lab Director: Kristian Garcia MD Platelet mean volume (Bld) [Entitic vol] 10.3 fL Normal 8.1-13.5 [facility] Comment on above: Performed By: #### E RTPF #### [place] [address] Medical Scribe: Kristian Garcia MD Performed By: #### E RTPF ####[address] [address] Lab Director: Kristian Garcia MD Platelets (Bld) [#/Vol] 141 10*3/uL Normal 138-453 [facility] Comment on above: Performed By: #### E RTPF #### [address] [place] [address] Medical Scribe: Kristian Garcia MD Performed By: #### E RTPF ####[address] [place] [address] Lab Director: Kristian Garcia MD RBC (Bld) [#/Vol] 4.53 10*6/uL Normal 3.95-5.11 [facility] Comment on above: Performed By: #### E RTPF #### [address] [address] Medical Scribe: Kristian Garcia MD Performed By: #### E RTPF ####[address] [address] Lab Director: Kristian Garcia MD WBC (Bld) [#/Vol] 8.9 10*3/uL Normal 3.5-11.3 [facility] Comment on above: Performed By: #### E RTPF #### [address] [place] [address] Medical Scribe: Kristian Garcia MD Performed By: #### E RTPF ####[address] [phone] Director: Kristian Garcia MD HCG Screen, Blood Negative Normal [facility] Comment on above: Result Comment: Spec imens with hCG levels near the threshold of the test (25 mIU/mL) may give a negative or indeterminate result. In such cases, another test should be performed with a new specimen in 48-72 hours. If early is suspected clinically in this setting, correlation with quantitative serum b-hCG level is suggested. [employer] has confirmed the use of plasma for this test. This has not been cleared or approved by the U.S. Food and Drug Administration. The FDA has determined that such clearance is not necessary. Performed By: #### E RTPF #### [address] [address] Medical Scribe: Kristian Garcia MD Performed By: #### E RTPF ####[address] [address] Lab Director: Kristian Garcia MD Body Temp. 37.0 Normal [facility] Comment on above: Performed By: #### E RTPF #### [address] [address] Medical Scribe: Kristian Garcia MD Performed By: #### E RTPF ####[address] [address] Lab Director: Kristian Garcia MD Carboxy Hgb 2.3 % Normal 0-5 [facility] Comment on above: Result Comment: Reference Range: Non-Smokers 0-2% Average Smoker 2-4% Heavy Smoker <10% Performed By: #### E RTPF #### [address] [address] Medical Scribe: Kristian Garcia MD Performed By: #### E RTPF ####[address] [address] Lab Director: Kristian Garcia MD FIO2 INFORMATION NOT PROVIDED Normal [facility] Comment on above: Performed By: #### E RTPF #### [address] [address] Medical Scribe: Kristian Garcia MD Performed By: #### E RTPF ####[address] [address] Lab Director: Kristian Garcia MD HCO3 (Bld) [Moles/Vol] 29.9 mmol/L Normal 24-30 [facility] Comment on above: Performed By: #### E RTPF #### [facility] [employer] [address] [place] [address] Medical Scribe: Kristian Garcia MD Performed By: #### E RTPF ####[address] [place], [place] [phone] Director: Kristian Garcia MD Oxygen saturation in Blood 82.7 % Normal 60.0-85.0 [facility] Comment on above: Performed By: #### E RTPF #### [address] [address] Medical Scribe: Kristian Garcia MD Performed By: #### E RTPF ####[address] [phone] Director: Kristian Garcia MD pCO2 50.7 mm Hg Normal 39-55 [facility] Comment on above: Performed By: #### E RTPF #### [address] [address] Medical Scribe: Kristian Garcia MD Performed By: #### E RTPF ####[address] [phone] Director: Kristian Garcia MD pH (Bld) 7.389 [pH] Normal 7.320-7.42 0 [facility] Comment on above: Performed By: #### E RTPF #### [facility] [employer] [address] [place] [address] Medical Scribe: Kristian Garcia MD Performed By: #### E RTPF ####[address] [phone] Director: Kristian Garcia MD pO2 47.8 mm Hg Normal 30-50 [facility] Comment on above: Performed By: #### E RTPF #### [facility] [employer] [facility] [place] [address] Medical Scribe: Kristian Garcia MD Performed By: #### E RTPF ####[address] [phone] Director: Kristian Garcia MD Positive Base Excess 3.8 mmol/L High 0.0-2.0 [facility] Comment on above: Performed By: #### E RTPF #### [address] [address] Medical Scribe: Kristian Garcia MD Performed By: #### E RTPF ####[address] [address] Lab Director: Kristian Garcia MD Blood Bank BILL FOR SERVICES PERFORMED Normal [facility] Comment on above: Performed By: #### E RTPF #### [address] [address] Medical Scribe: Kristian Garcia MD Performed By: #### E RTPF ####[address] [address] Lab Director: Kristian Garcia MD Type + Screenon 03-03-2024 Type + Screen Sample Expiration 03/06/2024,2359 Arm Band Number [id number] ABO/Rh(D) O POSITIVE Antibody Screen NEGATIVE Normal [facility] Comment on above: Performed By: #### T YS #### [address] [address] Medical Scribe: Kristian Garcia MD Alanine Aminotransferaseon 1 04-12-2023 ALT [Catalytic activity/Vol] 14 U/L Normal [facility] Comment on above: Performed By: #### C DT #### [facility] [address] Alanine aminotransferase [En zymatic activity/volume] in Serum or PlasmaOrdered By: Nani Calloway on 02-10-2024 ALT [Catalytic activity/Vol] Alanine aminotransferase [Enzymatic activity/volume] in Serum or Plasma [facility] Aspartate Amino Transferaseo n 02-10-2024 AST [Catalytic activity/Vol] 21 U/L Normal 39 [facility] Comment on above: Performed By: #### C DT #### [facility] [address] [place] [phone] [facility] Aspartate aminotransferase [ Enzymatic activity/volume] in Serum or PlasmaOrdered By: Nani Calloway on 02-10-2024 AST [Catalytic activity/Vol] Aspartate aminotransferase [Enzymatic activity/volume] in Serum or Plasma 39 [facility] Basic Metabolic Panelon Anion gap [Moles/Vol] 10.9 mmol/L Normal 6.0-15.0 [facility] Comment on above: Performed By: #### C DT #### [facility] [address] Calcium [Mass/Vol] 9.9 mg/dL Normal 8.6-10.3 [facility] Comment on above: Performed By: #### C DT #### [facility] [address] [place] [address] [place] Chloride [Moles/Vol] 98 mmol/L Normal 98-107 [facility] Comment on above: Performed By: #### C DT #### [facility] [address] [place] [address] [place] CO2 [Moles/Vol] 33.9 mmol/L High 21.0-31.0 [facility] Comment on above: Performed By: #### C DT #### [facility] [address] [place] [phone] [place] Creatinine [Mass/Vol] 1.10 mg/dL Normal 0.60-1.20 [facility] Comment on above: Performed By: #### C DT #### [facility] [address] Estimated GFR 52.076 mL/Min Normal [facility] Comment on above: Performed By: #### C DT #### [facility] [address] Glucose [Mass/Vol] 116 mg/dL High 70-100 [facility] Comment on above: Result Comment: [place] Glucose Reference Range is dependent on time and content of last meal. Glucose of more than 200 mg/dL in a nonstressed, ambulatory subject supports the diagnosis of Diabetes Mellitus. ADA recommended reference range Performed By: #### C DT #### [facility] [address] Potassium [Moles/Vol] 3.8 mmol/L Normal 3.5-5.1 [facility] Comment on above: Performed By: #### C DT #### [facility] [address] Sodium [Moles/Vol] 139 mmol/L Normal 136-145 [facility] Comment on above: Performed By: #### C DT #### [address] Urea nitrogen [Mass/Vol] 13 mg/dL Normal 7-25 [facility] Comment on above: Performed By: #### C DT #### [address] Basophils Auto (Bld) [#/Vol] Ordered By: Nani Calloway on 02-10-2024 Basophils (Bld) [#/Vol] Automated basophil count 0.0-0.2 [facility] Basophils/100 WBC Auto (Bld) Ordered By: Nani Calloway on 02-10-2024 Basophils/100 WBC (Bld) Automated basophil % . [facility] Calcium [Mass/volume] in Ser um or PlasmaOrdered By: Nani Calloway on 02-10-2024 Calcium [Mass/Vol] Calcium [Mass/volume ] in Serum or Plasma 8.6-10.3 [facility] Carbon dioxide, total [Moles /volume] in Serum or PlasmaOrdered By: Nani Calloway on 02-10-2024 CO2 [Moles/Vol] Carbon dioxide, tota l [Moles/volume] in Serum or Plasma High 21.0-31.0 [facility] Chloride [Moles/volume] in S live or PlasmaOrdered By: Nani Calloway on 02-10-2024 Chloride [Moles/Vol] Chloride [Moles/vol ume] in Serum or Plasma 98-107 [facility] Cholesterol [Mass/volume] in Serum or PlasmaOrdered By: Nani Calloway on 02-10-2024 Cholesterol [Mass/Vol] Cholesterol [Mass /volume] in Serum or Plasma Low 140-200 [facility] Comment on above: Chol less than 200 m g/dl low riskChol 201-239 mg/dl borderline riskChol 240 mg/dl and greater high risk Cholesterol in HDL [Mass/vol ume] in Serum or PlasmaOrdered By: Nani Calloway on 02-10-2024 Cholesterol in HDL [Mass/Vol] Serum or plasma high density lipoprotein (HDL) cholesterol measurement 23-92 [facility] Comment on above: HDL CHOL ATP-III CLA SSIFICATION Cardiovascular RiskHDL > or equal to 60 mg/dL LOWHDL < 40 mg/dL HIGH Cholesterol in LDL Calc [Mas s/Vol]Ordered By: Nani Calloway on 02-10-2024 Cholesterol in LDL [Mass/Vol] Cholesterol in LDL [Mass/volume] in Serum or Plasma by calculation 0-100 [facility] Comment on above: LDL ATP III CLASSIFI CATIONLDL less than 100 mg/dL OptimalLDL 100-129 mg/dL Near or above optimalLDL 130-159 mg/dL Borderline highLDL 160-189 mg/dL HighLDL greater than 189 mg/dL Very high Cholesterol in VLDL Calc [Ma ss/Vol]Ordered By: Nani Calloway on 02-10-2024 Cholesterol in VLDL [Mass/Vol] Cholesterol in VLDL [Mass/volume] in Serum or Plasma by calculation [facility] Complete Blood Count Auto Di ffon 02-10-2024 Basophils (Bld) [#/Vol] 0.0 10*3/uL Normal 0.0-0.2 [facility] Comment on above: Result Comment: PERF ORMED BY: [facility] [address] [place] [address] PATHOLOGIST SHOE CLEANER SELIN HOYT M.D. Performed By: #### C DT #### [address] Basophils/100 WBC (Bld) 0.7 % Normal . [facility] Comment on above: Performed By: #### C DT #### [address] Eosinophils (Bld) [#/Vol] 0.2 10*3/uL Normal 0.0-0.45 [facility] Comment on above: Performed By: #### C DT #### [address] Eosinophils/100 WBC (Bld) 2.6 % Normal . [facility] Comment on above: Performed By: #### C DT #### [address] Erythrocyte distribution width (RBC) [Ratio] 14.0 % Normal 11.9-15.3 [facility] Comment on above: Performed By: #### C DT #### [address] Hematocrit (Bld) [Volume fraction] 46.2 % Normal 34.0-46.4 [facility] Comment on above: Performed By: #### C DT #### [address] Hemoglobin (Bld) [Mass/Vol] 15.3 g/dL Normal 11.8-15.4 [facility] Comment on above: Performed By: #### C DT #### [address] Lymphocytes (Bld) [#/Vol] 1.5 10*3/uL Normal 1.00-4.8 [facility] Comment on above: Performed By: #### C DT #### [address] Lymphocytes/100 WBC (Bld) 25.0 % Normal . [facility] Comment on above: Performed By: #### C DT #### [address] MCH (RBC) [Entitic mass] 30.6 pg Normal 24.7-34.3 [facility] Comment on above: Performed By: #### C DT #### [address] MCV (RBC) [Entitic vol] 92.2 fL Normal 80-100 [facility] Comment on above: Performed By: #### C DT #### [address] Mean Corpuscular HGB Conc 33.1 g/dL Normal 32.0-35.0 [facility] Comment on above: Performed By: #### C DT #### [address] Monocytes (Bld) [#/Vol] 0.6 10*3/uL Normal 0.0-0.8 [facility] Comment on above: Performed By: #### C DT #### [address] Monocytes/100 WBC (Bld) 9.3 % Normal . [facility] Comment on above: Performed By: #### C DT #### [address] Neutrophils (Bld) [#/Vol] 3.9 10*3/uL Normal 1.8-7.7 [facility] Comment on above: Performed By: #### C DT #### [address] Neutrophils/100 WBC (Bld) 62.4 % Normal . [facility] Comment on above: Performed By: #### C DT #### [address] NRBC% 0.1 /100{WBC} Normal 0-0.5 [facility] Comment on above: Performed By: #### C DT #### [address] Platelet mean volume (Bld) [Entitic vol] 9.6 fL Normal 6.3-10.7 [facility] Comment on above: Performed By: #### C DT #### [facility] [address] [id number] [place] Platelets (Bld) [#/Vol] 214 10*3/uL Normal 150-450 [facility] Comment on above: Performed By: #### C DT #### [facility] [address] [id number] [facility] RBC (Bld) [#/Vol] 5.01 10*6/uL High 3.60-5.00 [facility] Comment on above: Performed By: #### C DT #### [facility] [address] [place] [address] [place] WBC (Bld) [#/Vol] 6.2 10*3/uL Normal 3.8-11.6 [facility] Comment on above: Performed By: #### C DT #### [facility] [address] Creatinine [Mass/volume] in Serum or PlasmaOrdered By: Nani Calloway on 02-10-2024 Creatinine [Mass/Vol] Creatinine [Mass/v olume] in Serum or Plasma 0.60-1.20 [facility] Eosinophils Auto (Bld) [#/Vo l]Ordered By: Nani Calloway on 02-10-2024 Eosinophils (Bld) [#/Vol] Automated eosinophil count 0.0-0.45 [facility] Eosinophils/100 WBC Auto (Bl d)Ordered By: Nani Calloway on 02-10-2024 Eosinophils/100 WBC (Bld) Automated eosinophil % . [facility] Erythrocyte distribution wid th Auto (RBC) [Ratio]Ordered By: Nani Calloway on 02-10-2024 Erythrocyte distribution width (RBC) [Ratio] Erythrocyte distribution width [Ratio] by Automated count 11.9-15.3 [facility] Glucose [Mass/volume] in Ser um or PlasmaOrdered By: Nani Calloway on 02-10-2024 Glucose [Mass/Vol] Glucose [Mass/volume ] in Serum or Plasma High 70-100 [facility] Comment on above: ADA recommended refe rence rangeRandom Glucose Reference Range is dependent on time and content of last meal. Glucose of more than 200 mg/dL in a nonstressed, ambulatory subject supports the diagnosis of Diabetes Mellitus. Hematocrit Auto (Bld) [Volum e fraction]Ordered By: Nani Calloway on 02-10-2024 Hematocrit (Bld) [Volume fraction] Hematocrit [Volume Fraction] of Blood by Automated count 34.0-46.4 [facility] Hemoglobin [Mass/volume] in BloodOrdered By: Nani Calloway on 02-10-2024 Hemoglobin (Bld) [Mass/Vol] Hemoglobin [Mass/volume] in Blood 11.8-15.4 [facility] Leukocytes [#/volume] correc jamli for nucleated erythrocytes in Blood by Automated counOrdered By: Nani Calloway on 02-10-2024 WBC corrected for nucl RBC Auto (Bld) [#/Vol] Leukocytes [#/volume] corrected for nucleated erythrocytes in Blood by Automated coun 3.8-11.6 [facility] Lipid Panelon 02-10-2024 Cholesterol [Mass/Vol] 135 mg/dL Low 140-200 [facility] Comment on above: Result Comment: Chol less than 200 mg/dl low risk Chol 201-239 mg/dl borderline risk Chol 240 mg/dl and greater high risk Performed By: #### C DT #### [facility] [address] [place] [address] Cholesterol in HDL [Mass/Vol] 49 mg/dL Normal 23-92 [facility] Comment on above: Result Comment: HDL CHOL ATP-III CLASSIFICATION Cardiovascular Risk HDL > or equal to 60 mg/dL LOW HDL < 40 mg/dL HIGH Performed By: #### C DT #### [facility] [address] Cholesterol.total/Chol esterol in HDL [Mass ratio] 2.8 {ratio} Normal <5.0 [facility] Comment on above: Result Comment: PERF ORMED BY: [place] [address] PATHOLOGIST SHOE CLEANER SELIN HOYT M.D. Performed By: #### C DT #### [address] LDL Cholesterol,Calculated 42 mg/dL Normal 0-100 [facility] Comment on above: Result Comment: LDL ATP III CLASSIFICATION LDL less than 100 mg/dL Optimal LDL 100-129 mg/dL Near or above optimal LDL 130-159 mg/dL Borderline high LDL 160-189 mg/dL High LDL greater than 189 mg/dL Very high Performed By: #### C DT #### [facility] [address] Triglyceride w/Reflex 218 mg/dL High 0-149 [facility] Comment on above: Result Comment: TRIG ATP III CLASSIFICATION TRIG less than 150 mg/dL Normal TRIG 150-199 mg/dL Borderline high TRIG 200-500 mg/dL High TRIG greater than 500 mg/dL Very high Standard traceable to the Center for Disease Conrtrol and Prevention (CDC) test method. Performed By: #### C DT #### [address] VLDL CHOLESTEROL 43 mg/dL Normal [facility] Comment on above: Performed By: #### C DT #### [facility] [address] Lymphocytes Auto (Bld) [#/Vo l]Ordered By: Nani Calloway on 02-10-2024 Lymphocytes (Bld) [#/Vol] Lymphocytes [#/volume] in Blood by Automated count 1.00-4.8 [facility] Lymphocytes/100 WBC Auto (Bl d)Ordered By: Nani Calloway on 02-10-2024 Lymphocytes/100 WBC (Bld) Lymphocytes/100 leukocytes in Blood by Automated count . [facility] MCH Auto (RBC) [Entitic mass ]Ordered By: Nani Calloway on 02-10-2024 MCH (RBC) [Entitic mass] MCH [Entitic mass] by Automated count 24.7-34.3 [facility] MCHC Auto (RBC) [Mass/Vol]Or dered By: Nani Calloway on 02-10-2024 MCHC (RBC) [Mass/Vol] MCHC [Mass/volume] by Automated count 32.0-35.0 [facility] MCV Auto (RBC) [Entitic vol] Ordered By: Nani Calloway on 02-10-2024 MCV (RBC) [Entitic vol] MCV [Entitic volume] by Automated count 80-100 [facility] Monocytes Auto (Bld) [#/Vol] Ordered By: Nani Calloway on 02-10-2024 Monocytes (Bld) [#/Vol] Automated blood monocyte count 0.0-0.8 [facility] Monocytes/100 WBC Auto (Bld) Ordered By: Nani Calloway on 02-10-2024 Monocytes/100 WBC (Bld) Automated monocyte % . [facility] Neutrophils Auto (Bld) [#/Vo l]Ordered By: Nani Calloway on 02-10-2024 Neutrophils (Bld) [#/Vol] Neutrophils [#/volume] in Blood by Automated count 1.8-7.7 [facility] Neutrophils/100 WBC Auto (Bl d)Ordered By: Nani Calloway on 02-10-2024 Neutrophils/100 WBC (Bld) Automated neutrophil % . [facility] No Panel InformationOrdered By: Nani Calloway on 02-10-2024 Estimated GFR (CKD-EPI) 52.076 mL/Min [facility] Creatinine Clearance (Chem N/A [facility] Nucleated erythrocytes [Pres ence] in Blood by Automated countOrdered By: Nani Calloway on 02-10-2024 Nucleated RBC Auto Ql (Bld) Nucleated erythrocytes [Presence] in Blood by Automated count 0-0.5 [facility] Platelet mean volume Auto (B ld) [Entitic vol]Ordered By: Nani Calloway on 02-10-2024 Platelet mean volume (Bld) [Entitic vol] Platelet mean volume [Entitic volume] in Blood by Automated count 6.3-10.7 [facility] Platelets Auto (Bld) [#/Vol] Ordered By: Nani Calloway on 02-10-2024 Platelets (Bld) [#/Vol] Platelets [#/volume] in Blood by Automated count 150-450 [facility] Potassium [Moles/volume] in Serum or PlasmaOrdered By: Nani Calloway on 02-10-2024 Potassium [Moles/Vol] Potassium [Moles/v olume] in Serum or Plasma 3.5-5.1 [facility] RBC Auto (Bld) [#/Vol]Ordere d By: Nani Calloway on 02-10-2024 RBC (Bld) [#/Vol] Erythrocytes [#/volu me] in Blood by Automated count High 3.60-5.00 [facility] Serum or plasma anion gap de terminationOrdered By: Nani Calloway on 02-10-2024 Anion gap [Moles/Vol] Serum or plasma an ion gap determination 6.0-15.0 [facility] Serum or plasma total choles terol/high density lipoprotein (HDL) cholesterol mass ratOrdered By: Nani Calloway on 02-10-2024 Cholesterol.total/Chol esterol in HDL [Mass ratio] Serum or plasma total cholesterol/high density lipoprotein (HDL) cholesterol mass rat <5.0 [facility] Sodium [Moles/volume] in Ser um or PlasmaOrdered By: Nani Calloway on 02-10-2024 Sodium [Moles/Vol] Sodium [Moles/volume ] in Serum or Plasma 136-145 [facility] Triglyceride [Mass/volume] i n Serum or PlasmaOrdered By: Nani Calloway on 02-10-2024 Triglyceride [Mass/Vol] Triglyceride [Mass/volume] in Serum or Plasma High 0-149 [facility] Comment on above: TRIG ATP III CLASSIF ICATIONTRIG less than 150 mg/dL NormalTRIG 150-199 mg/dL Borderline highTRIG 200-500 mg/dL High TRIG greater than 500 mg/dL Very highStandard traceable to the Center for Disease Conrtrol and Prevention (CDC) test method. Urea nitrogen [Mass/volume] in Serum or PlasmaOrdered By: Nani Calloway on 02-10-2024 Urea nitrogen [Mass/Vol] Urea nitrogen [Mass/volume] in Serum or Plasma 7-25 [facility] WBC Auto (Bld) [#/Vol]Ordere d By: Nani Calloway on 02-10-2024 WBC (Bld) [#/Vol] Leukocytes [#/volume ] in Blood by Automated count 3.8-11.6 [facility] Albumin [Mass/volume] in Ser um or Plasma by Bromocresol green (BCG) dye binding methoOrdered By: Jani Aguilera on 12-02-2023 Albumin BCG dye [Mass/Vol] 4.1 g/dL 3.5-5.7 [facility] Bacteria [Presence] in Urine by AutomatedOrdered By: Jani Aguilera on 12-02-2023 Bacteria Auto Ql (U) Rare [HPF] None Seen [facility] Bilirubin Test strip Ql (U)O rdered By: Jani Aguilera on 12-02-2023 Bilirubin Ql (U) Negative Negative [facility] Calcium [Mass/volume] in Ser um or PlasmaOrdered By: Jani Aguilera on 12-02-2023 Calcium [Mass/Vol] 9.1 mg/dL Normal 8.6-10.3 [facility] Comment on above: Performed By: #### P HOS, BMP, MG #### [facility] [address] [place] [address] [place] Carbon dioxide, total [Moles /volume] in Serum or PlasmaOrdered By: Jani Aguilera on 12-02-2023 CO2 [Moles/Vol] 32.3 mmol/L High 21.0-31.0 [facility] Comment on above: Performed By: #### P HOS, BMP, MG #### [facility] [address] [place] [address] [place] Chloride [Moles/volume] in S live or PlasmaOrdered By: Jani Aguilera on 12-02-2023 Chloride [Moles/Vol] 101 mmol/L Normal 98-107 [facility] Comment on above: Performed By: #### P HOS, BMP, MG #### [facility] [address] [place] [address] [place] Color of Urine by AutoOrdere d By: Jani Aguilera on 12-02-2023 Color (U) Light-yellow Normal Yellow [facility] Comment on above: Order Comment: PT ON MASK ISOLATION Performed By: #### P HOS, BMP, MG #### [facility] [address] [place] [address] [place] Creatinine [Mass/volume] in Serum or PlasmaOrdered By: Jani Aguilera on 12-02-2023 Creatinine [Mass/Vol] 1.12 mg/dL Normal 0.60-1.20 [facility] Comment on above: Performed By: #### P HOS, BMP, MG #### [facility] [address] Creatinine [Mass/volume] in UrineOrdered By: Jani Aguilera on 12-02-2023 Creatinine (U) [Mass/Vol] 105.00 mg/dL [facility] Comment on above: No reference range e stablished Dipstick and Microscopicon 0 12-02-2023 Bacteria,Urine Rare Normal None Seen [facility] Comment on above: Order Comment: PT ON MASK ISOLATION Performed By: #### P HOS, BMP, MG #### [place] [address] [place] Bilirubin,Urine Negative Normal Negative [facility] Comment on above: Order Comment: PT ON MASK ISOLATION Performed By: #### P HOS, BMP, MG #### [place] [address] [place] Glucose Ql (U) Normal Normal Normal [facility] Comment on above: Order Comment: PT ON MASK ISOLATION Performed By: #### P HOS, BMP, MG #### [address] Hyaline Casts,Urine None Normal 0-8 [facility] Comment on above: Order Comment: PT ON MASK ISOLATION Result Comment: PERF ORMED BY: [place] [address] PATHOLOGIST SHOE CLEANER SHELLI CHARLES M.D. Performed By: #### P HOS, BMP, MG #### [place] [address] [place] Nitrite,Urine Negative Normal Negative [facility] Comment on above: Order Comment: PT ON MASK ISOLATION Performed By: #### P HOS, BMP, MG #### [place] [address] [place] Occult Blood,Urine 2+ High Negative [facility] Comment on above: Order Comment: PT ON MASK ISOLATION Performed By: #### P HOS, BMP, MG #### [facility] [address] [place] [address] [place] Protein,Urine Negative Normal Negative [facility] Comment on above: Order Comment: PT ON MASK ISOLATION Performed By: #### P HOS, BMP, MG #### [facility] [address] [place] [id number] [place] RBC,Urine 10-19 High 0-4 [facility] Comment on above: Order Comment: PT ON MASK ISOLATION Performed By: #### P HOS, BMP, MG #### [facility] [address] [place] [address] [place] Specificy [place],Urine 1.018 Normal 1.001-1.03 0 [facility] Comment on above: Order Comment: PT ON MASK ISOLATION Performed By: #### P HOS, BMP, MG #### [place] [address] [place] Squamous Epithelial Cell,Urine 3-4 High 0-2 [facility] Comment on above: Order Comment: PT ON MASK ISOLATION Performed By: #### P HOS, BMP, MG #### [facility] [address] [place] [address] [place] Urobilinogen,Urine 2 mg/dL High Normal [facility] Comment on above: Order Comment: PT ON MASK ISOLATION Performed By: #### P HOS, BMP, MG #### [facility] [address] [place] [address] [place] WBC CLUMP, Urine Occasional High None Seen [facility] Comment on above: Order Comment: PT ON MASK ISOLATION Performed By: #### P HOS, BMP, MG #### [facility] [address] [place] [address] [place] WBC,Urine 10-19 High 0-4 [facility] Comment on above: Order Comment: PT ON MASK ISOLATION Performed By: #### P HOS, BMP, MG #### [facility] [address] [place], [place] [id number] [facility] Epithelial cells.squamous [# /area] in Urine sediment by Automated countOrdered By: Jani Aguilera on 12-02-2023 Epithelial cells.squamous Auto (Urine sed) [#/Area] 3-4 [HPF] High 0-2 [facility] Erythrocyte distribution wid th [Ratio] by Automated countOrdered By: Jani Aguilera on 12-02-2023 Erythrocyte distribution width (RBC) [Ratio] 13.5 % Normal 11.9-15.3 [facility] Comment on above: Performed By: #### P HOS, BMP, MG #### [facility] [address] [place] [address] [place] Erythrocytes [#/area] in Uri ne sediment by Automated countOrdered By: Jani Aguilera on 12-02-2023 RBC Auto (Urine sed) [#/Area] 10-19 [HPF] High 0-4 [facility] Erythrocytes [#/volume] in B lood by Automated countOrdered By: Jani Aguilera on 12-02-2023 RBC (Bld) [#/Vol] 4.78 10*6/uL Normal 3.60-5.00 [facility] Comment on above: Performed By: #### P HOS, BMP, MG #### [facility] [address] [place] [address] [place] Glucose [Mass/volume] in Ser um or PlasmaOrdered By: Jani Aguilera on 12-02-2023 Glucose [Mass/Vol] 96 mg/dL Normal 70-100 [facility] Comment on above: ADA recommended refe rence rangeRandom Glucose Reference Range is dependent on time and content of last meal. Glucose of more than 200 mg/dL in a nonstressed, ambulatory subject supports the diagnosis of Diabetes Mellitus. Result Comment: [place] om Glucose Reference Range is dependent on time and content of last meal. Glucose of more than 200 mg/dL in a nonstressed, ambulatory subject supports the diagnosis of Diabetes Mellitus. ADA recommended reference range Performed By: #### P HOS, BMP, MG #### [facility] [address] [place] [id number] [place] Glucose [Mass/volume] in Uri ne by Test stripOrdered By: Jani Aguilera on 12-02-2023 Glucose Test strip (U) [Mass/Vol] Normal mg/dL Normal [facility] Hematocrit [Volume Fraction] of Blood by Automated countOrdered By: Jani Aguilera on 12-02-2023 Hematocrit (Bld) [Volume fraction] 43.1 % Normal 34.0-46.4 [facility] Comment on above: Performed By: #### P HOS, BMP, MG #### [address] Hemoglobin Test strip Ql (U) Ordered By: Jani Aguilera on 12-02-2023 Hemoglobin Ql (U) 2+ High Negative [facility] Hemoglobin [Mass/volume] in BloodOrdered By: Jani Aguilera on 12-02-2023 Hemoglobin (Bld) [Mass/Vol] 14.4 g/dL Normal 11.8-15.4 [facility] Comment on above: Performed By: #### P HOS, BMP, MG #### [address] Hemogram CBC Without Diffon 12-02-2023 Mean Corpuscular HGB Conc 33.4 g/dL Normal 32.0-35.0 [facility] Comment on above: Performed By: #### P HOS, BMP, MG #### [address] WBC (Bld) [#/Vol] 6.7 10*3/uL Normal 3.8-11.6 [facility] Comment on above: Performed By: #### P HOS, BMP, MG #### [address] Hyaline casts [#/area] in Ur ine sediment by Automated countOrdered By: Jani Aguilera on 12-02-2023 Hyaline casts Auto (Urine sed) [#/Area] None [LPF] 0-8 [facility] Ketones [Presence] in Urine by Test stripOrdered By: Jani Aguilera on 12-02-2023 Ketones Ql (U) Negative Normal Negative [facility] Comment on above: Order Comment: PT ON MASK ISOLATION Performed By: #### P HOS, BMP, MG #### [address] [place] [address] [place] Laboratory - Microbiology an d Antimicrobial susceptibilityOrdered By: Jani Aguilera on 12-02-2023 Bacteria identified Cx Nom (U) 2 Days [facility] Leukocyte clumps [Presence] in Urine by AutomatedOrdered By: Jani Aguilera on 12-02-2023 Leukocyte clumps Auto Ql (U) Occasional [LPF] High None Seen [facility] Leukocyte esterase [Presence ] in Urine by Test stripOrdered By: Jani Aguilera on 12-02-2023 Leukocyte esterase Test strip Ql (U) 3+ High Negative [facility] Comment on above: Order Comment: PT ON MASK ISOLATION Performed By: #### P HOS, BMP, MG #### [facility] [address] [place] [address] Leukocytes [#/area] in Urine sediment by Automated countOrdered By: Jani Aguilera on 12-02-2023 WBC Auto (Urine sed) [#/Area] 10-19 [HPF] High 0-4 [facility] Leukocytes [#/volume] correc jamil for nucleated erythrocytes in Blood by Automated counOrdered By: Jani Aguilera on 12-02-2023 WBC corrected for nucl RBC Auto (Bld) [#/Vol] 6.7 10*3/uL 3.8-11.6 [facility] MCH [Entitic mass] by Automa jamil countOrdered By: Jani Aguilera on 12-02-2023 MCH (RBC) [Entitic mass] 30.1 pg Normal 24.7-34.3 [facility] Comment on above: Performed By: #### P HOS, BMP, MG #### [facility] [address] [place] [address] MCHC Auto (RBC) [Mass/Vol]Or dered By: Jani Aguilera on 12-02-2023 MCHC (RBC) [Mass/Vol] 33.4 g/dL 32.0-35.0 [facility] MCV [Entitic volume] by Auto mated countOrdered By: Jani Aguilera on 12-02-2023 MCV (RBC) [Entitic vol] 90.3 fL Normal 80-100 [facility] Comment on above: Performed By: #### P HOS, BMP, MG #### [facility] [address] [place] [address] Magnesium [Mass/volume] in S live or PlasmaOrdered By: Jani Aguilera on 12-02-2023 Magnesium [Mass/Vol] 1.9 mg/dL Normal 1.9-2.7 [facility] Comment on above: Performed By: #### P HOS, BMP, MG #### [address] Nitrite Test strip Ql (U)Ord ered By: Jani Aguilera on 12-02-2023 Nitrite Ql (U) Negative Negative [facility] No Panel InformationOrdered By: Jani Aguilera on 12-02-2023 Estimated GFR (CKD-EPI) 50.963 mL/Min [facility] Creatinine Clearance (Chem N/A [facility] Parathyrin.intact [Mass/volu me] in Serum or PlasmaOrdered By: Jani Aguilera on 12-02-2023 Parathyrin.intact [Mass/Vol] 53.6 pg/mL [facility] Parathyroid Hormone Intacton 12-02-2023 Parathyroid Hormone Intact 53.6 pg/mL Normal [facility] Comment on above: Result Comment: PERF ORMED BY: [place] [address] PATHOLOGIST SHOE CLEANER SHELLI CHARLES M.D. Performed By: #### P HOS, BMP, MG #### [place] [address] [place] Phosphate [Mass/volume] in S live or PlasmaOrdered By: Jani Aguilera on 12-02-2023 Phosphate [Mass/Vol] 2.5 mg/dL Normal 2.5-4.5 [facility] Comment on above: Performed By: #### P HOS, BMP, MG #### [facility] [address] [place] [address] Platelet mean volume [Entiti c volume] in Blood by Automated countOrdered By: Jani Aguilera on 12-02-2023 Platelet mean volume (Bld) [Entitic vol] 9.5 fL Normal 6.3-10.7 [facility] Comment on above: Result Comment: PERF ORMED BY: [place] [address] PATHOLOGIST SHOE CLEANER SHELLI CHARLES M.D. Performed By: #### P HOS, BMP, MG #### [place] [address] [place] Platelets [#/volume] in Bloo d by Automated countOrdered By: Jani Aguilera on 12-02-2023 Platelets (Bld) [#/Vol] 203 10*3/uL Normal 150-450 [facility] Comment on above: Performed By: #### P HOS, BMP, MG #### [address] Potassium [Moles/volume] in Serum or PlasmaOrdered By: Jani Aguilera on 12-02-2023 Potassium [Moles/Vol] 3.1 mmol/L Low 3.5-5.1 [facility] Comment on above: Performed By: #### P HOS, BMP, MG #### [address] Protein Creat Ratio Ur Rando mon 12-02-2023 Creatinine, Urine (Random) 105.00 mg/dL Normal [facility] Comment on above: Result Comment: No r eference range established Performed By: #### P HOS, BMP, MG #### [address] Urine Protein/Creatinine Ratio 124 mg/g{Cre} Normal 0-200 [facility] Comment on above: Result Comment: PERF ORMED BY: [place] [address] PATHOLOGIST SHOE CLEANER SHELLI CHARLES M.D. Performed By: #### P HOS, BMP, MG #### [address] Protein Test strip (U) [Mass /Vol]Ordered By: Jani Aguilera on 12-02-2023 Protein (U) [Mass/Vol] Negative Negative [facility] Protein [Mass/volume] in Uri neOrdered By: Jani Willy on 12-02-2023 Protein (U) [Mass/Vol] 13 mg/dL High 0-9 [facility] Comment on above: Performed By: #### P HOS, BMP, MG #### [address] Renal Function Panelon 12-01 Albumin [Mass/Vol] 4.1 g/dL Normal 3.5-5.7 [facility] Comment on above: Performed By: #### P HOS, BMP, MG #### [address] GFR/1.73 sq M.predicted MDRD (S/P/Bld) [Vol rate/Area] 50.963 mL/min/{1.73_m2} Normal [facility] Comment on above: Performed By: #### P HOS, BMP, MG #### [address] Serum or plasma anion gap de terminationOrdered By: Jani Willy on 12-02-2023 Anion gap [Moles/Vol] 10.8 mmol/L Normal 6.0-15.0 [facility] Comment on above: Performed By: #### P HOS, BMP, MG #### [place] [address] [place] Sodium [Moles/volume] in Ser um or PlasmaOrdered By: Jani Willy on 12-02-2023 Sodium [Moles/Vol] 141 mmol/L Normal 136-145 [facility] Comment on above: Performed By: #### P HOS, BMP, MG #### [address] Specific gravity Test strip (U) [Rel density]Ordered By: Jani Willy on 12-02-2023 Specific gravity (U) [Rel density] 1.018 1.001-1.03 0 [facility] Urate [Mass/volume] in Serum or PlasmaOrdered By: Jani Willy on 12-02-2023 Urate [Mass/Vol] 7.3 mg/dL High 2.3-6.6 [facility] Comment on above: Performed By: #### P HOS, BMP, MG #### [facility] [address] [place] [address] Urea nitrogen [Mass/volume] in Serum or PlasmaOrdered By: Jani Willy on 12-02-2023 Urea nitrogen [Mass/Vol] 12 mg/dL Normal 7-25 [facility] Comment on above: Performed By: #### P HOS, BMP, MG #### [facility] [address] [place] [address] Urine Cultureon 12-02-2023 Bacteria identified Cx Nom (U) 20,000 colonies/ml mixed bacterial skin contaminants 2 Days PERFORMED BY: [place] [address] PATHOLOGIST SHOE CLEANER SHELLI [place] [facility] Comment on above: Performed By: #### P HOS, BMP, MG #### [facility] [address] [place] [address] Urine appearanceOrdered By: Jani Willy on 12-02-2023 Appearance (U) Clear Normal Clear [facility] Comment on above: Order Comment: PT ON MASK ISOLATION Performed By: #### P HOS, BMP, MG #### [facility] [address] [place] [address] Urine protein/creatinine rat ioOrdered By: Jani Willy on 12-02-2023 Protein/Creatinine (U) [Ratio] 124 mg/g{Cre} 0-200 [facility] Urobilinogen Test strip (U) [Mass/Vol]Ordered By: Jani Willy on 12-02-2023 Urobilinogen (U) [Mass/Vol] 2 mg/dL High Normal [facility] Vitamin D 25 Hydroxy Totalon 12-02-2023 Vitamin D 25 Hydroxy Total 41.2 ng/mL Normal 30-100 [facility] Comment on above: Result Comment: FABRICIO MIN D STATUS 25(OH)VITAMIN D RANGE (ng/mL) Deficient <20 Insufficient 20 to <30 Sufficient 30 to 100 Reference: Socorro Wells, Alber HERNANDEZ et al. Evaluation,treatment, and prevention of vitamin D deficiency; an Endocrine Society clinical practice guideline. JCEM. 2010; 96(7):1911-. PERFORMED BY: [place] [address] PATHOLOGIST SHOE CLEANER SHELLI CHARLES M.D. Performed By: #### P HOS, BMP, MG #### [address] Vitamin D+Metabolites [Mass/ volume] in Serum or PlasmaOrdered By: Jani Aguilera on 12-02-2023 Vitamin D+Metabolites [Mass/Vol] 41.2 ng/mL 30-100 [facility] Comment on above: VITAMIN D STATUS 25( [place])VITAMIN D RANGE (ng/mL) Deficient <20 Insufficient 20 to <30Sufficient 30 to 100Reference: Socorro Wells, Alber HERNANDEZ, et al. Evaluation,treatment, and prevention of vitamin D deficiency; an Endocrine Society clinical practice guideline. JCEM. 2010; 96(7):1911-30. pH of Urine by Test stripOrd ered By: Jani Aguilera on 12-02-2023 pH (U) 7.0 [pH] Normal 5.0-9.0 [facility] Comment on above: Order Comment: PT ON MASK ISOLATION Performed By: #### P HOS, BMP, MG #### [address] No Panel Informationon 11-26 Bernadine Diaz, 11/27/2023 2:15 PM L Inj/Asp: L knee on 11/27/2023 7:18 AM Indications: pain Details: 22 G needle, anterolateral approach Medications: 40 mg methylPREDNISolone acetate 40 MG/ML Outcome: tolerated well, no immediate complications UTILIZING ASEPTIC TECHNIQUE PT GIVEN INJECTION IN LEFT KNEE, NEUROVASC INTACT S/P INJ, TOLERATED WELL Procedure, treatment alternatives, risks and benefits explained, specific risks discussed. Consent was given by the patient. [facility] XR Hip - left 3 Viewson 11-03 Imaging Result: November 26, 2023 x-rays AP and lateral left hip demonstrate a Press-Fit knee hip replacement in good position alignment without signs of loosening fracture or failure. 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 [facility] Radiology Study observation (narrative) [facility] No Panel Informationon 11-17 Type of biopsy: tangential Informed consent: discussed and consent obtained Informed consent comment: The risks and benefits of the biopsy were discussed. Risks include but are not limited to bleeding, infection, scarring, pain, and nerve damage. An opportunity to ask questions prior to the procedure was permitted and all questions were answered. Patient was prepped and draped in usual sterile fashion: area cleansed with alcohol. Anesthesia: the lesion was anesthetized in a standard fashion Anesthetic: 1% lidocaine w/ epinephrine 1-100,000 buffered w/ 8.4% NaHCO3 Instrument used: DermaBlade Hemostasis achieved with: electrodesiccation Outcome: patient tolerated procedure well Outcome comment: The specimen was placed in a prelabeled formalin container to be sent for pathology Post-procedure details: sterile dressing applied and wound care instructions given Post-procedure details comment: Emphasized need to contact clinic for any signs of infection, uncontrollable bleeding, or complications. Dressing type: bandage Additional details: Photo taken yes Amount of lidocaine used: 1.0 cc [facility] XR chest 2V*on 11-08-2023 XR chest 2V* [facility] [place] [address] XRay Report Signed Patient: Katarina Camara MR#: [id number] 51 : 1945 Acct:[id number] Age/Sex: 78 / F ADM Date: 11/08/23 Loc: [facility] Room: Type: [facility] Attending Dr: Hilario Gallo DO Copies to: [...] Eloina Camacho M.D.11/08/2023 3:08 PM Dictation Location: [place] [address] Transcribed By: ITALO 11/08/23 1508 Dictated By: Eloina Camacho MD 11/08/23 1507 Signed By: 11/08/23 1508 Normal [facility] CBC W Auto Differential pane l (Bld)on 05-13-2023 Basophils (Bld) [#/Vol] 0.04 10*3/uL Normal <0.11 [facility] Comment on above: Order Comment: Speci men Type: BLOOD SPECIMEN Ordering Facility: [facility] Address: [address] [place] [address] Performed By: #### 5 7021-8 #### [facility] CLIA [id number] [address] [place] [address] Basophils/100 WBC (Bld) 0.7 % Normal [facility] Comment on above: Order Comment: Speci men Type: BLOOD SPECIMEN Ordering Facility: [facility] Address: [address] [place] [address] Performed By: #### 5 7021-8 #### [facility] CLIA [id number] [address] [place] [address] Differential cell count method Nom (Bld) Auto Normal [facility] Comment on above: Order Comment: Speci men Type: BLOOD SPECIMEN Ordering Facility: [facility] Address: [address] [place] [address] Performed By: #### 5 7021-8 #### [facility] CLIA [id number] [address] [place] [address] Eosinophils (Bld) [#/Vol] 0.14 10*3/uL Normal <0.46 [facility] Comment on above: Order Comment: Speci men Type: BLOOD SPECIMEN Ordering Facility: [facility] Address: [address] [place] [address] Performed By: #### 5 7021-8 #### [facility] CLIA [id number] [address] [place] [address]25[address] Eosinophils/100 WBC (Bld) 2.4 % Normal [facility] Comment on above: Order Comment: Speci men Type: BLOOD SPECIMEN Ordering Facility: [facility] Address: [address] [place] [address] Performed By: #### 5 7021-8 #### [facility] CLIA [id number] [address] [place] [address] Erythrocyte distribution width (RBC) [Ratio] 12.6 % Normal 11.5-15.0 [facility] Comment on above: Order Comment: Speci men Type: BLOOD SPECIMEN Ordering Facility: [facility] Address: [address] [place] [address] Performed By: #### 5 7021-8 #### [facility] CLIA [id number] [address] [place] [address] Hematocrit (Bld) [Volume fraction] 46.9 % High 36.0-46.0 [facility] Comment on above: Order Comment: Speci men Type: BLOOD SPECIMEN Ordering Facility: [facility] Address: [address] [place] [address] Performed By: #### 5 7021-8 #### [facility] CLIA [id number] [address] [place] [address]647 Hemoglobin (Bld) [Mass/Vol] 15.2 g/dL Normal 11.5-15.5 [facility] Comment on above: Order Comment: Speci men Type: BLOOD SPECIMEN Ordering Facility: [facility] Address: [address] [place] [address] Performed By: #### 5 7021-8 #### [facility] CLIA [id number] [address] [place] [address] Immature granulocytes (Bld) [#/Vol] 10*3/uL Normal <0.10 [facility] Comment on above: Order Comment: Speci men Type: BLOOD SPECIMEN Ordering Facility: [facility] Address: [address] [place] [address] Performed By: #### 5 7021-8 #### [facility] CLIA [id number] [address] [place] [address] Immature granulocytes/100 WBC (Bld) 0.2 % Normal [facility] Comment on above: Order Comment: Speci men Type: BLOOD SPECIMEN Ordering Facility: [facility] Address: [address] [place] [address] Performed By: #### 5 7021-8 #### [facility] CLIA [id number] [address] [place] [address]63 Lymphocytes (Bld) [#/Vol] 1.77 10*3/uL Normal 1.00-4.00 [facility] Comment on above: Order Comment: Speci men Type: BLOOD SPECIMEN Ordering Facility: [facility] Address: [address] [place] [address] Performed By: #### 5 7021-8 #### [facility] CLIA [id number] [address] [place] [address] 09668 Lymphocytes/100 WBC (Bld) 30.6 % Normal [facility] Comment on above: Order Comment: Speci men Type: BLOOD SPECIMEN Ordering Facility: [facility] Address: [address] [place] [address] Performed By: #### 5 7021-8 #### [facility] CLIA [id number] [address] [place] [address] 26508 MCH (RBC) [Entitic mass] 29.4 pg Normal 26.0-34.0 [facility] Comment on above: Order Comment: Speci men Type: BLOOD SPECIMEN Ordering Facility: [facility] Address: [address] [place] [address] Performed By: #### 5 7021-8 #### [facility] CLIA [id number] [address] [place] [address] 06787 MCHC (RBC) [Mass/Vol] 32.4 g/dL Normal 30.5-36.0 [facility] Comment on above: Order Comment: Speci men Type: BLOOD SPECIMEN Ordering Facility: [facility] Address: [address] [place] [address] Performed By: #### 5 7021-8 #### [facility] CLIA [id number] [address] [place] [address] 40164 MCV (RBC) [Entitic vol] 90.7 fL Normal 80.0-100.0 [facility] Comment on above: Order Comment: Speci men Type: BLOOD SPECIMEN Ordering Facility: [facility] Address: [address] [place] [address] Performed By: #### 5 7021-8 #### [facility] CLIA [id number] [address] [place] [address] 43925 Monocytes (Bld) [#/Vol] 0.50 10*3/uL Normal <0.87 [facility] Comment on above: Order Comment: Speci men Type: BLOOD SPECIMEN Ordering Facility: [facility] Address: [address] [place] [address] Performed By: #### 5 7021-8 #### [facility] CLIA [id number] [address] [place] [address] 43267 Monocytes/100 WBC (Bld) 8.6 % Normal [facility] Comment on above: Order Comment: Speci men Type: BLOOD SPECIMEN Ordering Facility: [facility] Address: [address] [place] [address] Performed By: #### 5 7021-8 #### [facility] CLIA [id number] [address] [place] [address] 23417 Neutrophils (Bld) [#/Vol] 3.33 10*3/uL Normal 1.45-7.50 [facility] Comment on above: Order Comment: Speci men Type: BLOOD SPECIMEN Ordering Facility: [facility] Address: [address] [place] [address] Performed By: #### 5 7021-8 #### [facility] CLIA [id number] [address] [place] [address] 99474 Neutrophils/100 WBC (Bld) 57.5 % Normal [facility] Comment on above: Order Comment: Speci men Type: BLOOD SPECIMEN Ordering Facility: [facility] Address: [address] [place], [place] [address] Performed By: #### 5 7021-8 #### [facility] CLIA [id number] [address] [place] [address] 24828 Nucleated RBC (Bld) [#/Vol] 10*3/uL Normal <0.01 [facility] Comment on above: Order Comment: Speci men Type: BLOOD SPECIMEN Ordering Facility: [facility] Address: [address] [place] [address] Performed By: #### 5 7021-8 #### [facility] CLIA [id number] [address] [place] [address] 62885 Nucleated RBC/100 WBC (Bld) [Ratio] 0.0 /100 WBC Normal [facility] Comment on above: Order Comment: Speci men Type: BLOOD SPECIMEN Ordering Facility: [facility] Address: [address] [place] [address] Performed By: #### 5 7021-8 #### [facility] CLIA [id number] [address] [place] [address] 76166 Platelet mean volume (Bld) [Entitic vol] 10.4 fL Normal 9.0-12.7 [facility] Comment on above: Order Comment: Speci men Type: BLOOD SPECIMEN Ordering Facility: [facility] Address: [address] [place] [address] Performed By: #### 5 7021-8 #### [facility] CLIA [id number] [address] [place] [address] Platelets (Bld) [#/Vol] 216 10*3/uL Normal 150-400 [facility] Comment on above: Order Comment: Speci men Type: BLOOD SPECIMEN Ordering Facility: [facility] Address: [address] [place] [address] Performed By: #### 5 7021-8 #### [facility] CLIA [id number] [address] [place] [address]776 RBC (Bld) [#/Vol] 5.17 10*6/uL Normal 3.90-5.20 [facility] Comment on above: Order Comment: Speci men Type: BLOOD SPECIMEN Ordering Facility: [facility] Address: [address] [place] [address] Performed By: #### 5 7021-8 #### [facility] CLIA [id number] [address] [place] [address] 26035 WBC (Bld) [#/Vol] 5.79 10*3/uL Normal 3.70-11.00 [facility] Comment on above: Order Comment: Speci men Type: BLOOD SPECIMEN Ordering Facility: [facility] Address: [address] [place] [address] Performed By: #### 5 7021-8 #### [facility] CLIA [id number] [address] [place] [address]14 Basophils (Bld) [#/Vol] 0.04 10*3/uL <0.11 k/uL [facility] Basophils/100 WBC (Bld) 0.7 % [facility] Differential cell count method Nom (Bld) Auto [facility] Eosinophils (Bld) [#/Vol] 0.14 10*3/uL <0.46 k/uL [facility] Eosinophils/100 WBC (Bld) 2.4 % [facility] Erythrocyte distribution width (RBC) [Ratio] 12.6 % 11.5 - 15.0 % [facility] Hematocrit (Bld) [Volume fraction] 46.9 % High 36.0 - 46.0 % [facility] Hemoglobin (Bld) [Mass/Vol] 15.2 g/dL 11.5 - 15.5 g/dL [facility] Immature granulocytes (Bld) [#/Vol] <0.10 k/uL [facility] Immature granulocytes/100 WBC (Bld) 0.2 % [facility] Lymphocytes (Bld) [#/Vol] 1.77 10*3/uL 1.00 - 4.00 k/uL [facility] Lymphocytes/100 WBC (Bld) 30.6 % [facility] MCH (RBC) [Entitic mass] 29.4 pg 26.0 - 34.0 pg [facility] MCHC (RBC) [Mass/Vol] 32.4 g/dL 30.5 - 36.0 g/dL [facility] MCV (RBC) [Entitic vol] 90.7 fL 80.0 - 100.0 fL [facility] Monocytes (Bld) [#/Vol] 0.50 10*3/uL <0.87 k/uL [facility] Monocytes/100 WBC (Bld) 8.6 % [facility] Neutrophils (Bld) [#/Vol] 3.33 10*3/uL 1.45 - 7.50 k/uL [facility] Neutrophils/100 WBC (Bld) 57.5 % [facility] Nucleated RBC (Bld) [#/Vol] <0.01 k/uL [facility] Nucleated RBC/100 WBC (Bld) [Ratio] 0.0 /100 WBC [facility] Platelet mean volume (Bld) [Entitic vol] 10.4 fL 9.0 - 12.7 fL [facility] Platelets (Bld) [#/Vol] 216 10*3/uL 150 - 400 k/uL [facility] RBC (Bld) [#/Vol] 5.17 10*6/uL 3.90 - 5.20 m/uL [facility] WBC (Bld) [#/Vol] 5.79 10*3/uL 3.70 - 11.00 k/uL [facility] CNOVSPon 05-13-2023 CNOVSP Visit (SP) Office ([facility]) ----- KATARINA CAMARA ([id number]) 1945 F Date Time Provider Department 05/13/23 [...] biopsy completed 02/2016 noted invasive ductal carcinoma [place] positive, HER2 negative. : Lumpectomy completed 03/21/16 noted grade 2 invasive ductal carcinoma, DCIS grade 2, 14 mm : Margins negative (discussed with the pathologist who assured negative margins but that the anterior margin was within 1.0mm anteriorly). : [place] lymph node was positive for involvement. 06/25/16 [...] Invasive ductal carcinoma of right breast (HCC) [place]+ HER2- PAST SURGICAL HISTORY Procedure Laterality Date [...] anxiety Cardiovasc (more content not included)... Normal [facility] Comprehensive metabolic 2000 panelon 05-13-2023 Albumin [Mass/Vol] 4.7 g/dL Normal 3.9-4.9 [facility] Comment on above: Order Comment: Speci men Type: BLOOD SPECIMEN Ordering Facility: [facility] Address: [address] [place] [address] Performed By: #### 2 4323-8 #### [facility] CLIA [id number] [address] [place] [address] 69859 ALP [Catalytic activity/Vol] 77 U/L Normal 34-123 [facility] Comment on above: Order Comment: Speci men Type: BLOOD SPECIMEN Ordering Facility: [facility] Address: [address] [place] [address] Performed By: #### 2 4323-8 #### [facility] CLIA [id number] [address] [place] [address] 17368 ALT [Catalytic activity/Vol] 19 U/L Normal 7-38 [facility] Comment on above: Order Comment: Speci men Type: BLOOD SPECIMEN Ordering Facility: [facility] Address: [address] [place] [address] Performed By: #### 2 4323-8 #### [facility] CLIA [id number] [address] [place] [address] 40797 Anion gap [Moles/Vol] 12 mmol/L Normal 9-18 [facility] Comment on above: Order Comment: Speci men Type: BLOOD SPECIMEN Ordering Facility: [facility] Address: [address] [place] [id number] Performed By: #### 2 4323-8 #### [facility] CLIA [id number] [address] [place] [address] AST [Catalytic activity/Vol] 24 U/L Normal 13-35 [facility] Comment on above: Order Comment: Speci men Type: BLOOD SPECIMEN Ordering Facility: [facility] Address: [address] [place] [address] Performed By: #### 2 4323-8 #### [facility] CLIA [id number] [address] [place] [address] 92102 Bilirubin [Mass/Vol] 1.2 mg/dL Normal 0.2-1.3 [facility] Comment on above: Order Comment: Speci men Type: BLOOD SPECIMEN Ordering Facility: [facility] Address: [address] [place] [address] Performed By: #### 2 4323-8 #### [facility] CLIA [id number] [address] [place] [address] 10035 Calcium [Mass/Vol] 10.1 mg/dL Normal 8.5-10.2 [facility] Comment on above: Order Comment: Speci men Type: BLOOD SPECIMEN Ordering Facility: [facility] Address: [address] [place] [address] Performed By: #### 2 4323-8 #### [facility] CLIA [id number] [address] [place] [address] 32984 Chloride [Moles/Vol] 100 mmol/L Normal 97-105 [facility] Comment on above: Order Comment: Speci men Type: BLOOD SPECIMEN Ordering Facility: [facility] Address: [address] [place] [address] Performed By: #### 2 4323-8 #### [facility] CLIA [id number] [address] [place] [address] 21535 CO2 [Moles/Vol] 30 mmol/L Normal 22-30 [facility] Comment on above: Order Comment: Speci men Type: BLOOD SPECIMEN Ordering Facility: [facility] Address: [address] [place] [address] Performed By: #### 2 4323-8 #### [facility] CLIA [id number] [address] [place] [address] Creatinine [Mass/Vol] 1.18 mg/dL High 0.58-0.96 [facility] Comment on above: Order Comment: Speci men Type: BLOOD SPECIMEN Ordering Facility: [facility] Address: [address] [place] [address] Performed By: #### 2 4323-8 #### [facility] CLIA [id number] [address] [place] [address] Creatinine and Glomerular filtration rate.predicted panel (S/P/Bld) 48 mL/min/1.73m??? Low >=60 [facility] Comment on above: Order Comment: Speci men Type: BLOOD SPECIMEN Ordering Facility: [facility] Address: [address] [place] [address] Result Comment: Cathy mated Glomerular Filtration Rate [...] GFR. Performed By: #### 2 4323-8 #### [facility] CLIA [id number] [address] [place] [address] Glucose [Mass/Vol] 120 mg/dL High 74-99 [facility] Comment on above: Order Comment: Speci men Type: BLOOD SPECIMEN Ordering Facility: [facility] Address: [address] [place] [address] Result Comment: The [employer]eless Diabetes Association (ADA) provides guidance for cutoff [...] Standards of Medical Care in Diabetes 2016, Stateless Diabetes Association. Diabetes Care. 2016.39(Suppl 1). Performed By: #### 2 4323-8 #### [facility] CLIA [id number] [address] [place] [address] Potassium [Moles/Vol] 3.5 mmol/L Low 3.7-5.1 [facility] Comment on above: Order Comment: Speci men Type: BLOOD SPECIMEN Ordering Facility: [facility] Address: [address] [place] [address] Performed By: #### 2 4323-8 #### [facility] CLIA [id number] [address] [place] [address] Protein [Mass/Vol] 7.1 g/dL Normal 6.3-8.0 [facility] Comment on above: Order Comment: Speci men Type: BLOOD SPECIMEN Ordering Facility: [facility] Address: [address] [place] [address] Performed By: #### 2 4323-8 #### [facility] CLIA [id number] [address] [place] [address] Sodium [Moles/Vol] 142 mmol/L Normal 136-144 [facility] Comment on above: Order Comment: Speci men Type: BLOOD SPECIMEN Ordering Facility: [facility] Address: [address] [place] [address] Performed By: #### 2 4323-8 #### [facility] CLIA [id number] [address] [place] [address] Urea nitrogen [Mass/Vol] 12 mg/dL Normal 7-21 [facility] Comment on above: Order Comment: Speci men Type: BLOOD SPECIMEN Ordering Facility: [facility] Address: [address] [place] [address] Performed By: #### 2 4323-8 #### [facility] CLIA [id number] [address] [place] [address] Albumin [Mass/Vol] 4.7 g/dL 3.9 - 4.9 g/dL [facility] ALP [Catalytic activity/Vol] 77 U/L 34 - 123 U/L [facility] ALT [Catalytic activity/Vol] 19 U/L 7 - 38 U/L [facility] Anion gap [Moles/Vol] 12 mmol/L 9 - 18 mmol/L [facility] AST [Catalytic activity/Vol] 24 U/L 13 - 35 U/L [facility] Bilirubin [Mass/Vol] 1.2 mg/dL 0.2 - 1 .3 mg/dL [facility] Calcium [Mass/Vol] 10.1 mg/dL 8.5 - 10. 2 mg/dL [facility] Chloride [Moles/Vol] 100 mmol/L 97 - 10 5 mmol/L [facility] CO2 [Moles/Vol] 30 mmol/L 22 - 30 mmol/L [facility] Creatinine [Mass/Vol] 1.18 mg/dL High 0.58 - 0.96 mg/dL [facility] Estimated Glomerular Filtration Rate 48 mL/min/1.73m Low >=60 mL/min/1.7 3m [facility] Glucose [Mass/Vol] 120 mg/dL High 74 - 99 mg/dL [facility] Potassium [Moles/Vol] 3.5 mmol/L Low 3.7 - 5.1 mmol/L [facility] Protein [Mass/Vol] 7.1 g/dL 6.3 - 8.0 g/dL [facility] Sodium [Moles/Vol] 142 mmol/L 136 - 144 mmol/L [facility] Urea nitrogen [Mass/Vol] 12 mg/dL 7 - 21 mg/dL [facility] CNPNon 05-06-2023 MAG Telephone (HEMASA) ----- KATARINA CAMARA ([id number]) 1945 F Date Time Provider Department 05/06/23 [...] Reviewed: 05/06/2023 Reviewed by: Ruth Ann Gutierres PA-C - Fully Assessed Reason for Visit: Lab Orders [1688] Primary Visit Diagnosis:Malignant neoplasm of lower-inner quadrant of right breast of female, estrogen receptor positive (HCC) [C50.311, Z17.0] Order(s):COMP METABOLIC PANEL [SQCMP] Order #: [id number] FUTURE CBC + DIFF [SQCBCDIF] Order #: [id number] FUTURE Prescriptions as of 05/14/2023 - indapamide [...] Status:Closed by TAYLOR BARNETT on 05/14/23 Normal [facility] Alanine aminotransferase [En zymatic activity/volume] in Serum or PlasmaOrdered By: Nani Calloway on 04-16-2023 ALT [Catalytic activity/Vol] 16 U/L 7-52 [facility] Aspartate aminotransferase [ Enzymatic activity/volume] in Serum or PlasmaOrdered By: Nani Calloway on 04-16-2023 AST [Catalytic activity/Vol] 21 U/L 13-39 [facility] Calcium [Mass/volume] in Ser um or PlasmaOrdered By: Nani Calloway on 04-16-2023 Calcium [Mass/Vol] 9.9 mg/dL 8.6-10.3 [facility] Carbon dioxide, total [Moles /volume] in Serum or PlasmaOrdered By: Nani Calloway on 04-16-2023 CO2 [Moles/Vol] 33.6 mmol/L 21.0-31.0 [facility] Chloride [Moles/volume] in S live or PlasmaOrdered By: Nani Calloway on 04-16-2023 Chloride [Moles/Vol] 99 mmol/L 98-107 [facility] Cholesterol [Mass/volume] in Serum or PlasmaOrdered By: Nani Calloway on 04-16-2023 Cholesterol [Mass/Vol] 139 mg/dL 140-200 [facility] Comment on above: Chol less than 200 m g/dl low riskChol 201-239 mg/dl borderline riskChol 240 mg/dl and greater high risk Cholesterol in LDL Calc [Mas s/Vol]Ordered By: Nani Calloway on 04-16-2023 Cholesterol in LDL [Mass/Vol] 52 mg/dL 0-100 [facility] Comment on above: LDL ATP III CLASSIFI CATIONLDL less than 100 mg/dL OptimalLDL 100-129 mg/dL Near or above optimalLDL 130-159 mg/dL Borderline highLDL 160-189 mg/dL HighLDL greater than 189 mg/dL Very high Cholesterol in VLDL Calc [Ma ss/Vol]Ordered By: Nani Calloway on 04-16-2023 Cholesterol in VLDL [Mass/Vol] 42 mg/dL [facility] Creatinine [Mass/volume] in Serum or PlasmaOrdered By: Nani Calloway on 04-16-2023 Creatinine [Mass/Vol] 1.05 mg/dL 0.60-1.20 [facility] Glucose [Mass/volume] in Ser um or PlasmaOrdered By: Nani Calloway on 04-16-2023 Glucose [Mass/Vol] 112 mg/dL 70-100 [facility] Comment on above: ADA recommended refe rence rangeRandom Glucose Reference Range is dependent on time and content of last meal. Glucose of more than 200 mg/dL in a nonstressed, ambulatory subject supports the diagnosis of Diabetes Mellitus. No Panel InformationOrdered By: Nani Calloway on 04-16-2023 Estimated GFR (CKD-EPI) 55.410 mL/Min [facility] Creatinine Clearance (Chem N/A [facility] Potassium [Moles/volume] in Serum or PlasmaOrdered By: Nani Calloway on 04-16-2023 Potassium [Moles/Vol] 4.0 mmol/L 3.5-5.1 [facility] Serum or plasma anion gap de terminationOrdered By: Nani Calloway on 04-16-2023 Anion gap [Moles/Vol] 10.4 mmol/L 6.0-15.0 [facility] Serum or plasma high density lipoprotein (HDL) cholesterol measurementOrdered By: Nani Calloway on 04-16-2023 Cholesterol in HDL [Mass/Vol] 45 mg/dL 23-92 [facility] Comment on above: HDL CHOL ATP-III CLA SSIFICATION Cardiovascular RiskHDL > or equal to 60 mg/dL LOWHDL < 40 mg/dL HIGH Serum or plasma total choles terol/high density lipoprotein (HDL) cholesterol mass ratOrdered By: Nani Calloway on 04-16-2023 Cholesterol.total/Chol esterol in HDL [Mass ratio] 3.1 {ratio} <5.0 [facility] Sodium [Moles/volume] in Ser um or PlasmaOrdered By: Nani Calloway on 04-16-2023 Sodium [Moles/Vol] 139 mmol/L 136-145 [facility] Triglyceride [Mass/volume] i n Serum or PlasmaOrdered By: Nani Calloway on 04-16-2023 Triglyceride [Mass/Vol] 212 mg/dL 0-149 [facility] Comment on above: TRIG ATP III CLASSIF ICATIONTRIG less than 150 mg/dL NormalTRIG 150-199 mg/dL Borderline highTRIG 200-500 mg/dL High TRIG greater than 500 mg/dL Very highStandard traceable to the Center for Disease Conrtrol and Prevention (CDC) test method. Urea nitrogen [Mass/volume] in Serum or PlasmaOrdered By: Nani Calloway on 04-16-2023 Urea nitrogen [Mass/Vol] 16 mg/dL 09-25 [facility] Alanine aminotransferase [En zymatic activity/volume] in Serum or PlasmaOrdered By: Tamiko Zhou on 01-18-2023 ALT [Catalytic activity/Vol] 12 U/L [facility] Albumin [Mass/volume] in Ser um or Plasma by Bromocresol green (BCG) dye binding methoOrdered By: Tamiko Zhou on 01-18-2023 Albumin BCG dye [Mass/Vol] 3.6 g/dL 3.5-5.7 [facility] Alkaline phosphatase [Enzyma tic activity/volume] in Serum or PlasmaOrdered By: Tamiko Zhou on 01-18-2023 ALP [Catalytic activity/Vol] 59 U/L 34-104 [facility] Aspartate aminotransferase [ Enzymatic activity/volume] in Serum or PlasmaOrdered By: Tamiko Zhou on 01-18-2023 AST [Catalytic activity/Vol] 18 U/L 13-39 [facility] Bilirubin.total [Mass/volume ] in Serum or PlasmaOrdered By: Tamiko Zhou on 01-18-2023 Bilirubin [Mass/Vol] 1.1 mg/dL 0.3-1.0 [facility] Calcium [Mass/volume] in Ser um or PlasmaOrdered By: Tamiko Zhou on 01-18-2023 Calcium [Mass/Vol] 8.1 mg/dL 8.6-10.3 [facility] Carbon dioxide, total [Moles /volume] in Serum or PlasmaOrdered By: Tamiko Zhou 01-18-2023 CO2 [Moles/Vol] 27.6 mmol/L 21.0-31.0 [facility] Chloride [Moles/volume] in S live or PlasmaOrdered By: Tamiko Zhou 01-18-2023 Chloride [Moles/Vol] 101 mmol/L 98-107 [facility] Creatinine [Mass/volume] in Serum or PlasmaOrdered By: Tamiko Zhou 01-18-2023 Creatinine [Mass/Vol] 0.84 mg/dL 0.60-1.20 [facility] Globulin Calc (S) [Mass/Vol] Ordered By: Tamiko Zhou 01-18-2023 Globulin (S) [Mass/Vol] 2.1 g/dL [facility] Glucose [Mass/volume] in Ser um or PlasmaOrdered By: Tamiko Zhou 01-18-2023 Glucose [Mass/Vol] 115 mg/dL 70-100 [facility] Comment on above: ADA recommended refe rence rangeRandom Glucose Reference Range is dependent on time and content of last meal. Glucose of more than 200 mg/dL in a nonstressed, ambulatory subject supports the diagnosis of Diabetes Mellitus. No Panel InformationOrdered By: Tamiko Zhou on 01-18-2023 Estimated GFR (CKD-EPI) > 60.0 mL/Min [facility] Creatinine Clearance (Chem 64.28 [facility] Potassium [Moles/volume] in Serum or PlasmaOrdered By: Tamiko Zhou on 01-18-2023 Potassium [Moles/Vol] 3.3 mmol/L 3.5-5.1 [facility] Protein [Mass/volume] in Ser um or PlasmaOrdered By: Tamiko Zhou on 01-18-2023 Protein [Mass/Vol] 5.7 g/dL 6.4-8.9 [facility] Serum or plasma albumin/glob ulin mass ratioOrdered By: Tamiko Zhou on 01-18-2023 Albumin/Globulin [Mass ratio] 1.7 {ratio} [facility] Serum or plasma anion gap de terminationOrdered By: Tamiko Zhou on 01-18-2023 Anion gap [Moles/Vol] 10.7 mmol/L 6.0-15.0 [facility] Sodium [Moles/volume] in Ser um or PlasmaOrdered By: Tamiko Zhou on 01-18-2023 Sodium [Moles/Vol] 136 mmol/L 136-145 [facility] Troponin I.cardiac [Mass/vol ume] in Serum or Plasma by Detection limit <= 0.01 ng/Ordered By: Tamiko Zhou on 01-18-2023 Troponin I.cardiac DL <= 0.01 ng/mL [Mass/Vol] 91.0 pg/mL 0.0-15.0 [facility] Comment on above: Critical Result : Ca lled to and read back by: QUIANA SHOOK/Carolyn at: 01/18/2023 07:02:29 by:[id number] Urea nitrogen [Mass/volume] in Serum or PlasmaOrdered By: Tamiko Zhou on 01-18-2023 Urea nitrogen [Mass/Vol] 7 mg/dL 7-25 [facility] Hematocrit Auto (Bld) [Volum e fraction]Ordered By: Tamiko Zhou on 01-17-2023 Hematocrit (Bld) [Volume fraction] 40.6 % 34.0-46.4 [facility] Hemoglobin [Mass/volume] in BloodOrdered By: Tamiko Zhou on 01-17-2023 Hemoglobin (Bld) [Mass/Vol] 13.4 g/dL 11.8-15.4 [facility] Activated partial thrombopla stin time (aPTT) in platelet poor plasma by coagulation aOrdered By: Nani Calloway on 01-15-2023 aPTT Coag (PPP) [Time] 26.9 s 25.1-36.5 [facility] Comment on above: A hematocrit value g reater than 55% may lead to inaccurate results in coagulation testing. Patients having hematocrit values >55% require a special collection tube for coagulation studies. Please contact the laboratory at [phone] for redraw instructions. Basophils Auto (Bld) [#/Vol] Ordered By: Nani Calloway on 01-15-2023 Basophils (Bld) [#/Vol] 0.0 10*3/uL 0.0-0.2 [facility] Basophils/100 WBC Auto (Bld) Ordered By: Nani Calloway on 01-15-2023 Basophils/100 WBC (Bld) 0.6 % . [facility] Carbon dioxide, total [Moles /volume] in Serum or PlasmaOrdered By: Nani Calloway on 01-15-2023 CO2 [Moles/Vol] 29.9 mmol/L 21.0-31.0 [facility] Chloride [Moles/volume] in S live or PlasmaOrdered By: Nani Calloway on 01-15-2023 Chloride [Moles/Vol] 105 mmol/L 98-107 [facility] Cholesterol [Mass/volume] in Serum or PlasmaOrdered By: Nani Calloway on 01-15-2023 Cholesterol [Mass/Vol] 155 mg/dL 140-200 [facility] Comment on above: Chol less than 200 m g/dl low riskChol 201-239 mg/dl borderline riskChol 240 mg/dl and greater high risk Cholesterol in LDL Calc [Mas s/Vol]Ordered By: Nani Calloway on 01-15-2023 Cholesterol in LDL [Mass/Vol] 70 mg/dL 0-100 [facility] Comment on above: LDL ATP III CLASSIFI CATIONLDL less than 100 mg/dL OptimalLDL 100-129 mg/dL Near or above optimalLDL 130-159 mg/dL Borderline highLDL 160-189 mg/dL HighLDL greater than 189 mg/dL Very high Cholesterol in VLDL Calc [Ma ss/Vol]Ordered By: Nani Calloway on 01-15-2023 Cholesterol in VLDL [Mass/Vol] 32 mg/dL [facility] Creatinine [Mass/volume] in Serum or PlasmaOrdered By: Nani Calloway 01-15-2023 Creatinine [Mass/Vol] 1.02 mg/dL 0.60-1.20 [facility] Eosinophils Auto (Bld) [#/Vo l]Ordered By: Nani Calloway on 01-15-2023 Eosinophils (Bld) [#/Vol] 0.2 10*3/uL 0.0-0.45 [facility] Eosinophils/100 WBC Auto (Bl d)Ordered By: Nani Pardoim on 01-15-2023 Eosinophils/100 WBC (Bld) 2.5 % . [facility] Erythrocyte distribution wid th Auto (RBC) [Ratio]Ordered By: Nani Calloway on 01-15-2023 Erythrocyte distribution width (RBC) [Ratio] 14.4 % 11.9-15.3 [facility] Hematocrit Auto (Bld) [Volum e fraction]Ordered By: Nani Calloway 01-15-2023 Hematocrit (Bld) [Volume fraction] 41.4 % 34.0-46.4 [facility] Hemoglobin [Mass/volume] in BloodOrdered By: Nani Calloway 01-15-2023 Hemoglobin (Bld) [Mass/Vol] 13.8 g/dL 11.8-15.4 [facility] INR in Platelet poor plasma by Coagulation assayOrdered By: Nani Calloway on 01-15-2023 INR Coag (PPP) [Relative time] 0.9 {INR} [facility] Comment on above: INR Therapeutic Rang [...] RBC Auto (Bld) [#/Vol] 7.0 10*3/uL 3.8-11.6 [facility] Lymphocytes Auto (Bld) [#/Vo l]Ordered By: Nani Calloway on 01-15-2023 Lymphocytes (Bld) [#/Vol] 1.6 10*3/uL 1.00-4.8 [facility] Lymphocytes/100 WBC Auto (Bl d)Ordered By: Nani Calloway on 01-15-2023 Lymphocytes/100 WBC (Bld) 22.8 % . [facility] MCH Auto (RBC) [Entitic mass ]Ordered By: Nani Calloway on 01-15-2023 MCH (RBC) [Entitic mass] 30.5 pg 24.7-34.3 [facility] MCHC Auto (RBC) [Mass/Vol]Or dered By: Nani Calloway on 01-15-2023 MCHC (RBC) [Mass/Vol] 33.4 g/dL 32.0-35.0 [facility] MCV Auto (RBC) [Entitic vol] Ordered By: Nani Calloway on 01-15-2023 MCV (RBC) [Entitic vol] 91.4 fL 80-100 [facility] Monocytes Auto (Bld) [#/Vol] Ordered By: Nani Calloway on 01-15-2023 Monocytes (Bld) [#/Vol] 0.6 10*3/uL 0.0-0.8 [facility] Monocytes/100 WBC Auto (Bld) Ordered By: Nani Calloway on 01-15-2023 Monocytes/100 WBC (Bld) 8.3 % . [facility] Neutrophils Auto (Bld) [#/Vo l]Ordered By: Nani Calloway on 01-15-2023 Neutrophils (Bld) [#/Vol] 4.6 10*3/uL 1.8-7.7 [facility] Neutrophils/100 WBC Auto (Bl d)Ordered By: Nani Calloway on 01-15-2023 Neutrophils/100 WBC (Bld) 65.8 % . [facility] No Panel InformationOrdered By: Nani Calloway on 01-15-2023 Estimated GFR (CKD-EPI) 57.371 mL/Min [facility] Creatinine Clearance (Chem N/A [facility] Nucleated erythrocytes [Pres ence] in Blood by Automated countOrdered By: Nani Calloway on 01-15-2023 Nucleated RBC Auto Ql (Bld) 0.2 /100{WBC} 0-0.5 [facility] Platelet mean volume Auto (B ld) [Entitic vol]Ordered By: Nani Calloway on 01-15-2023 Platelet mean volume (Bld) [Entitic vol] 8.8 fL 6.3-10.7 [facility] Platelets Auto (Bld) [#/Vol] Ordered By: Nani Calloway on 01-15-2023 Platelets (Bld) [#/Vol] 181 10*3/uL 150-450 [facility] Potassium [Moles/volume] in Serum or PlasmaOrdered By: Nani Calloway on 01-15-2023 Potassium [Moles/Vol] 4.0 mmol/L 3.5-5.1 [facility] Prothrombin time (PT)Ordered By: Nani Calloway on 01-15-2023 PT Coag (PPP) [Time] 10.3 s 9.0-12.9 [facility] Comment on above: A hematocrit value g reater than 55% may lead to inaccurate results in coagulation testing. Patients having hematocrit values >55% require a special collection tube for coagulation studies. Please contact the laboratory at [phone] for redraw instructions. RBC Auto (Bld) [#/Vol]Ordere d By: Nani Calloway on 01-15-2023 RBC (Bld) [#/Vol] 4.53 10*6/uL 3.60-5.00 [facility] Serum or plasma anion gap de terminationOrdered By: Nani Calloway on 01-15-2023 Anion gap [Moles/Vol] 9.1 mmol/L 6.0-15.0 [facility] Serum or plasma high density lipoprotein (HDL) cholesterol measurementOrdered By: Nani Calloway on 01-15-2023 Cholesterol in HDL [Mass/Vol] 53 mg/dL 23- [facility] Comment on above: HDL CHOL ATP-III CLA SSIFICATION Cardiovascular RiskHDL > or equal to 60 mg/dL LOWHDL < 40 mg/dL HIGH Serum or plasma total choles terol/high density lipoprotein (HDL) cholesterol mass ratOrdered By: Nani Calloway on 01-15-2023 Cholesterol.total/Chol esterol in HDL [Mass ratio] 2.9 {ratio} <5.0 [facility] Sodium [Moles/volume] in Ser um or PlasmaOrdered By: Nani Calloway on 01-15-2023 Sodium [Moles/Vol] 140 mmol/L 136-145 [facility] Triglyceride [Mass/volume] i n Serum or PlasmaOrdered By: Nani Calloway on 01-15-2023 Triglyceride [Mass/Vol] 161 mg/dL 0-149 [facility] Comment on above: TRIG ATP III CLASSIF ICATIONTRIG less than 150 mg/dL NormalTRIG 150-199 mg/dL Borderline highTRIG 200-500 mg/dL High TRIG greater than 500 mg/dL Very highStandard traceable to the Center for Disease Conrtrol and Prevention (CDC) test method. Urea nitrogen [Mass/volume] in Serum or PlasmaOrdered By: Nani Calloway on 01-15-2023 Urea nitrogen [Mass/Vol] 9 mg/dL 7-25 [facility] WBC Auto (Bld) [#/Vol]Ordere d By: Nani Calloway on 01-15-2023 WBC (Bld) [#/Vol] 7.0 10*3/uL 3.8-11.6 [facility] CARDIAC STRESS TESTon 2022 Ordered by an unspec ified provider. [facility] ECG 12 Leadon 12-25-2022 ECG reveals normal s inus rhythm with diffuse nonspecific ST and T changes [facility] Work Phone: Consultation Noteon 06-28-19 Consultation Note [id number]:12 7 Normal [facility] CBC AUTO DIFFon 06-11-2022 BASO # 0.1 103/ul Normal 0.0-0.1 [facility] Comment on above: Performed By: #### C BC #### [facility] [address] [address] [address] Mag Charles Basophils/100 WBC (Bld) 0.7 % Normal 0.2-2.0 [facility] Comment on above: Performed By: #### C BC #### [facility] [address] [address] [address] Mag Charles EO # 0.1 103/ul Normal 0.0-0.7 [facility] Comment on above: Performed By: #### C BC #### [facility] [address] [place] [address] Dr. Mag Charles Eosinophils/100 WBC (Bld) 1.1 % Normal 0.9-7.0 [facility] Comment on above: Performed By: #### C BC #### [facility] [address] [place] [address] Dr. Mag Charles Erythrocyte distribution width (RBC) [Ratio] 13.4 % Normal 11.0-15.0 [facility] Comment on above: Performed By: #### C BC #### [facility] [address] [place] [address] Dr. Mag Charles Hematocrit (Bld) [Volume fraction] 46.8 % Normal 36.0-48.0 [facility] Comment on above: Performed By: #### C BC #### [facility] [address] [place] [address] Dr. Mag Charles Hemoglobin (Bld) [Mass/Vol] 15.1 g/dL Normal 12.0-16.0 [facility] Comment on above: Performed By: #### C BC #### [facility] [address] [place] [address] Dr. Mag Charles IG # 0.09 10e3/ul Critically high 0.00-0.03 [facility] Comment on above: Performed By: #### C BC #### [facility] [address] [place] [address] Dr. Mag Charles IG % 0.8 % Critically high 0.0-0.5 [facility] Comment on above: Performed By: #### C BC #### [facility] [address] [place] [address] Dr. Mag Charles LYMPH # 3.8 103/ul Normal 1.2-3.8 [facility] Comment on above: Performed By: #### C BC #### [facility] [address] [place] [address] Dr. Mag Charles Lymphocytes/100 WBC (Bld) 32.7 % Normal 20.5-60.0 [facility] Comment on above: Performed By: #### C BC #### [facility] [address] [place] [address] Dr. Mag Charles MANUAL DIFF REQ NO Normal [facility] Comment on above: Performed By: #### C BC #### [facility] [address] [place] [address] Dr. Mag Charles MCH (RBC) [Entitic mass] 30.3 pg Normal 26.7-34.0 [facility] Comment on above: Performed By: #### C BC #### [facility] [address] [place] [address] Dr. Mag Charles MCHC (RBC) [Mass/Vol] 32.3 g/dL Normal 29.9-35.2 [facility] Comment on above: Performed By: #### C BC #### [facility] [address] [place] [address] Dr. Mag Charles MCV (RBC) [Entitic vol] 93.8 fL Normal 81.0-99.0 [facility] Comment on above: Performed By: #### C BC #### [facility] [address] [place] [address] Dr. Mag Charles MONO # 1.1 103/ul Critically high 0.3-0.[address] [facility] Comment on above: Performed By: #### C BC #### [facility] [address] [place], [place] [id number] Dr. Mag Charles Monocytes/100 WBC (Bld) 9.2 % Normal 1.7-12.0 [facility] Comment on above: Performed By: #### C BC #### [facility] [address] [place] [address] Dr. Mag Charles NEUT # 6.5 103/ul Normal 1.4-6.5 [facility] Comment on above: Performed By: #### C BC #### [facility] [address] [place] [address] Dr. Mag Charles Neutrophils/100 WBC (Bld) 55.5 % Normal 43.0-75.0 [facility] Comment on above: Performed By: #### C BC #### [facility] [address] [place] [address] Dr. Mag Charles Platelet mean volume (Bld) [Entitic vol] 9.9 fL Normal 9.5-13.5 [facility] Comment on above: Performed By: #### C BC #### [facility] [address] [place] [address] Dr. Mag Charles PLT 237 103/ul Normal 150-450 [facility] Comment on above: Performed By: #### C BC #### [facility] [address] [place] [address] Dr. Mag Charles RBC 4.99 106/ul Normal 4.20-5.40 [facility] Comment on above: Performed By: #### C BC #### [facility] [address] [place] [address] Dr. Mag Cahrles WBC 11.6 103/ul Critically high 4.0-11.[address] [facility] [facility] Comment on above: Performed By: #### C BC #### [facility] [address] [place] [address] Dr. Mag Charles PROF CHEM 8 (BAS METB)on Anion gap [Moles/Vol] 10.2 mmol/L Normal Th [facility] Comment on above: Performed By: #### C VDTBH #### [facility] [address] [address] [address] Mag Charles Calcium [Mass/Vol] 8.5 mg/dL Normal 8.5-10.[address] [facility] Comment on above: Performed By: #### C VDTBH #### [facility] [address] [address] [address] Mag Charles Chloride [Moles/Vol] 103 mmol/L Normal 98-107 [facility] Comment on above: Performed By: #### C VDTBH #### [facility] [address] [address] [address] Mag Charles CO2 [Moles/Vol] 30.7 mmol/L Normal 21.0-32.[address] [facility] Comment on above: Performed By: #### C VDTBH #### [facility] [address] [address] [address] Mag Charles Creatinine [Mass/Vol] 1.01 mg/dL Normal 0.55-1.02 [facility] Comment on above: Performed By: #### C VDTBH #### [facility] [address] [address] [address] Mag Charles EGFR-AF GIBRALTARIAN >60 Normal >=[address] [facility] Comment on above: Performed By: #### C VDTBH #### [facility] [address] [address] [address] Mag Charles EGFR-NON AF GIBRALTARIAN 54 mL/min/1.73m2 Critically low >=60 [facility] Comment on above: Performed By: #### C VDTBH #### [facility] [address] [address] [address] Mag Charles Glucose [Mass/Vol] 94 mg/dL Normal 74-[address] [facility] Comment on above: Performed By: #### C VDTBH #### [facility] [address] [address] [address] Mag Charles Potassium [Moles/Vol] 3.9 mmol/L Normal 3.5-5.1 [facility] Comment on above: Performed By: #### C VDTBH #### [facility] [address] [address] [address] Mag Charles Sodium [Moles/Vol] 140 mmol/L Normal 136-145 [facility] Comment on above: Performed By: #### C VDTBH #### [facility] [address] [place] [address] Dr. Mag Charles Urea nitrogen [Mass/Vol] 17.0 mg/dL Normal 7.0-18.0 [facility] Comment on above: Performed By: #### C VDTBH #### [facility] [address] [address] [address] Mag Charles Urea nitrogen/Creatinine [Mass ratio] 16.8 mg/mg Normal [facility] Comment on above: Performed By: #### C VDTBH #### [facility] [address] [place] [address] Dr. Mag Charles BNPon 06-10-2022 Natriuretic peptide B (Bld) [Mass/Vol] 51.0 pg/mL Normal <=900.0 [facility] Comment on above: Performed By: #### B DATA COLLECTION INTERVIEWER #### [facility] [address] [place] [address] Dr. Mag Charles CARDIAC NILO ADMITon 023 CK [Catalytic activity/Vol] 57 U/L Normal 26-192 [facility] Comment on above: Performed By: #### C MADM, CMP #### [facility] [address] [place] [address] Dr. Mag Charles CK.MB [Mass/Vol] 1.72 ng/mL Normal <=3.60 [facility] Comment on above: Performed By: #### C MADM, CMP #### [facility] [address] [place] [address] Dr. Mag Charles HSTROP 11.3 pg/mL Normal 4.0-51.3 [facility] Comment on above: Result Comment: CUT- OFF POINTS HAVE BEEN ESTABLISHED BASED ON THE FOURTH UNIVERSAL DEFINITIONS OF MYOCARDIAL INFARCTION. THE UPPER REFERENCE LIMIT (URL) OF TROPONIN, DEFINED THE 99TH PERCENTILE OF cTnI DISTRIBUTION IN A REFERENCE POPULATION, HAS BEEN CONFIRMED THE DECISION THRESHOLD FOR [place] DIAGNOSIS. Performed By: #### C MADM, CMP #### [facility] [address] [address] [address] Mag Charles AG 62 ng/mL Normal 9-82 [facility] Comment on above: Performed By: #### C MADM, CMP #### [facility] [address] [address] [address] Mag Charles CBC AUTO DIFFon 06-10-2022 BASO # 0.1 103/ul Normal 0.0-0.1 [facility] Comment on above: Performed By: #### C VDTBH #### [facility] [address] [address] [address] Mag Charles Basophils/100 WBC (Bld) 0.5 % Normal 0.2-2.0 [facility] Comment on above: Performed By: #### C VDTBH #### [facility] [address] [place] [address] Dr. Mag Charles EO # 0.1 103/ul Normal 0.0-0.7 [facility] Comment on above: Performed By: #### C VDTBH #### [facility] [address] [address] [address] Mag Charles Eosinophils/100 WBC (Bld) 0.8 % Critically low 0.9-7.0 [facility] Comment on above: Performed By: #### C VDTBH #### [facility] [address] [place] [address] Dr. Mag Charles Erythrocyte distribution width (RBC) [Ratio] 13.5 % Normal 11.0-15.0 [facility] Comment on above: Performed By: #### C VDTBH #### [facility] [address] [place] [address] Dr. Mag Charles Hematocrit (Bld) [Volume fraction] 49.1 % Critically high 36.0-48.0 [facility] Comment on above: Performed By: #### C VDTBH #### [facility] [address] [address] [address] Mag Charles Hemoglobin (Bld) [Mass/Vol] 15.9 g/dL Normal 12.0-16.0 [facility] Comment on above: Performed By: #### C VDTBH #### [facility] [address] [place] [address] Dr. Mag Charles IG # 0.12 10e3/ul Critically high 0.00-0.03 [facility] Comment on above: Performed By: #### C VDTBH #### [facility] [address] [place] [address] Dr. Mag Charles IG % 1.1 % Critically high 0.0-0.5 [facility] Comment on above: Performed By: #### C VDTBH #### [facility] [address] [place] [address] Dr. Mag Charles LYMPH # 1.9 103/ul Normal 1.2-3.8 [facility] Comment on above: Performed By: #### C VDTBH #### [facility] [address] [place] [address] Dr. Mag Charles Lymphocytes/100 WBC (Bld) 18.1 % Critically low 20.5-60.0 [facility] Comment on above: Performed By: #### C VDTBH #### [facility] [address] [place] [address] Dr. Mag Charles MANUAL DIFF REQ NO Normal [facility] Comment on above: Performed By: #### C VDTBH #### [facility] [address] [place] [address] Dr. Mag Charles MCH (RBC) [Entitic mass] 30.1 pg Normal 26.7-34.0 [facility] Comment on above: Performed By: #### C VDTBH #### [facility] [address] [place] [address] Dr. Mag Charles MCHC (RBC) [Mass/Vol] 32.4 g/dL Normal 29.9-35.2 [facility] Comment on above: Performed By: #### C VDTBH #### [facility] [address] [place] [address] Dr. Mag Charles MCV (RBC) [Entitic vol] 93.0 fL Normal 81.0-99.0 [facility] Comment on above: Performed By: #### C VDTBH #### [facility] [address] [place] [address] Dr. Mag Chalres MONO # 0.8 103/ul Normal 0.3-0.8 [facility] Comment on above: Performed By: #### C VDTBH #### [facility] [address] [place] [address] Dr. Mag Charles Monocytes/100 WBC (Bld) 7.7 % Normal 1.7-12.0 [facility] Comment on above: Performed By: #### C VDTBH #### [facility] [address] [place] [address] Dr. Mag Charles NEUT # 7.6 103/ul Critically high 1.4-6.[address] [facility] Comment on above: Performed By: #### C VDTBH #### [facility] [address] [place] [address] Dr. Mag Charles Neutrophils/100 WBC (Bld) 71.8 % Normal 43.0-75.0 [facility] Comment on above: Performed By: #### C VDTBH #### [facility] [address] [place] [address] Dr. Mag Charles Platelet mean volume (Bld) [Entitic vol] 10.4 fL Normal 9.5-13.5 [facility] Comment on above: Performed By: #### C VDTBH #### [facility] [address] [place] [address] Dr. Mag Charles PLT 165 103/ul Normal 150-450 [facility] Comment on above: Performed By: #### C VDTBH #### [facility] [address] [place] [address] Dr. aMg Charles RBC 5.28 106/ul Normal 4.20-5.40 [facility] Comment on above: Performed By: #### C VDTBH #### [facility] [address] [place] [address] Dr. Mag Charles WBC 10.6 103/ul Normal 4.0-11.0 [facility] Comment on above: Performed By: #### C VDTBH #### [facility] [address] [place] [address] Dr. Mag Charles Covid-19 PCR ([facility])on SARS-CoV-2 (COVID-19) RNA ABIODUN+probe Ql (Unsp spec) Not detected Normal NOT DETECTED [facility] Comment on above: Result Comment: When diagnostic [...] for this test is supported by the [place] [employer] and [employer] Service's declaration that [...] used). Performed By: #### C VDTBH #### [facility] [address] [place] [address] [address] [address] Mag Charles D-DIMERon 06-10-2022 D-DIMER 0.49 mg/L FEU Normal <=0.59 [facility] Comment on above: Performed By: #### C VDTBH #### [facility] [address] [place] [address] [address] [address] Mag Charles D-DIMER COMMENTS SEE BELOW Normal [facility] Comment on above: Result Comment: [...] hospitalization. Performed By: #### C VDTB #### [facility] [address] [place] [address] Dr. Mag Charles PROF 14(COMP METB)on 023 Albumin [Mass/Vol] 3.5 g/dL Normal 3.4-5.0 [facility] Comment on above: Performed By: #### C GEOVANIM, CMP #### [facility] [address] [place] [address] Dr. Mag Charles Albumin/Globulin [Mass ratio] 1.1 {ratio} Normal [facility] Comment on above: Performed By: #### C FIONA, CMP #### [facility] [address] [place] [address] Dr. Mag Charles ALP [Catalytic activity/Vol] 108 U/L Normal 46-116 [facility] Comment on above: Performed By: #### C FIONA, CMP #### [facility] [address] [place] [address] Dr. Mag Charles ALT [Catalytic activity/Vol] 67 U/L Critically high 14-59 [facility] Comment on above: Performed By: #### C FIONA, CMP #### [facility] [address] [place] [address] Dr. Mag Charles Anion gap [Moles/Vol] 12.6 mmol/L Normal [facility] Comment on above: Performed By: #### C FIONA, CMP #### [facility] [address] [place] [address] Dr. Mag Charles AST [Catalytic activity/Vol] 117 U/L Critically high 15-37 [facility] Comment on above: Performed By: #### C GEOVANIM, CMP #### [facility] [address] [place] [address] Dr. Mag Charles Bilirubin [Mass/Vol] 0.7 mg/dL Normal 0.2-1.0 [facility] Comment on above: Performed By: #### C MADM, CMP #### [facility] [address] [address] [address] Mag Charles Calcium [Mass/Vol] 8.5 mg/dL Normal 8.5-10.1 [facility] Comment on above: Performed By: #### C MADM, CMP #### [facility] [address] [address] [address] Mag Charles Chloride [Moles/Vol] 99 mmol/L Normal 98-107 [facility] Comment on above: Performed By: #### C MADM, CMP #### [facility] [address] [address] [address] Mag Charles CO2 [Moles/Vol] 28.5 mmol/L Normal 21.0-32.0 [facility] Comment on above: Performed By: #### C MADM, CMP #### [facility] [address] [address] [address] Mag Charles Creatinine [Mass/Vol] 1.23 mg/dL Critically high 0.55-1.02 [facility] Comment on above: Performed By: #### C MADM, CMP #### [facility] [address] [address] [address] Mag Charles EGFR-AF GIBRALTARIAN 52 mL/min/1.73m2 Critically low >=60 [facility] Comment on above: Performed By: #### C MADM, CMP #### [facility] [address] [address] [address] Mag Charles EGFR-NON AF GIBRALTARIAN 43 mL/min/1.73m2 Critically low >=60 [facility] Comment on above: Performed By: #### C MADM, CMP #### [facility] [address] [address] [address] Mag Charles Globulin (S) [Mass/Vol] 3.3 g/dL Normal [facility] Comment on above: Performed By: #### C MADM, CMP #### [facility] [address] [address] [address] Mag Charles Glucose [Mass/Vol] 112 mg/dL Critically high 74-106 [facility] Comment on above: Performed By: #### C MADM, CMP #### [facility] [address] [address] [address] Mag Charles Potassium [Moles/Vol] 4.1 mmol/L Normal 3.5-5.1 [facility] Comment on above: Performed By: #### C MADM, CMP #### [facility] [address] [place] [address] Dr. Mag Charles Protein [Mass/Vol] 6.8 g/dL Normal 6.4-8.[address] [facility] Comment on above: Performed By: #### C MADM, CMP #### [facility] [address] [place] [address] Dr. Mag Charles Sodium [Moles/Vol] 136 mmol/L Normal 136-145 [facility] Comment on above: Performed By: #### C MADM, CMP #### [facility] [address] [place] [address] Dr. Mag Charles Urea nitrogen [Mass/Vol] 21.0 mg/dL Critically high 7.0-18.0 [facility] Comment on above: Performed By: #### C MADM, CMP #### [facility] [address] [place] [address] Dr. Mag Charles Urea nitrogen/Creatinine [Mass ratio] 17.1 mg/mg Normal [facility] Comment on above: Performed By: #### C MADM, CMP #### [facility] [address] [place] [address] Dr. Mag Charles TROPONIN, HIGH SENSITIVITYon 06-10-2022 HSTROP 9.3 pg/mL Normal 4.0-51.3 [facility] Comment on above: Result Comment: CUT- OFF POINTS HAVE BEEN ESTABLISHED BASED ON THE FOURTH UNIVERSAL DEFINITIONS OF MYOCARDIAL INFARCTION. THE UPPER REFERENCE LIMIT (URL) OF TROPONIN, DEFINED THE 99TH PERCENTILE OF cTnI DISTRIBUTION IN A REFERENCE POPULATION, HAS BEEN CONFIRMED THE DECISION THRESHOLD FOR [place] DIAGNOSIS. Performed By: #### C VDTBH #### [facility] [address] [place] [address] Dr. Mag Charles HSTROP 10.4 pg/mL Normal 4.0-51.3 [facility] Comment on above: Result Comment: CUT- OFF POINTS HAVE BEEN ESTABLISHED BASED ON THE FOURTH UNIVERSAL DEFINITIONS OF MYOCARDIAL INFARCTION. THE UPPER REFERENCE LIMIT (URL) OF TROPONIN, DEFINED THE 99TH PERCENTILE OF cTnI DISTRIBUTION IN A REFERENCE POPULATION, HAS BEEN CONFIRMED THE DECISION THRESHOLD FOR KS DIAGNOSIS. Performed By: #### H STROPN #### [facility] [address] [place], [place] [address] Dr. Mag Charles HSTROP 11.0 pg/mL Normal 4.0-51.3 [facility] Comment on above: Result Comment: CUT- OFF POINTS HAVE BEEN ESTABLISHED BASED ON THE FOURTH UNIVERSAL DEFINITIONS OF MYOCARDIAL INFARCTION. THE UPPER REFERENCE LIMIT (URL) OF TROPONIN, DEFINED THE 99TH PERCENTILE OF cTnI DISTRIBUTION IN A REFERENCE POPULATION, HAS BEEN CONFIRMED THE DECISION THRESHOLD FOR KS DIAGNOSIS. Performed By: #### C VDTBH #### [facility] [id number] Mag Charles XR CHEST 1 Von [...] by: TAMIE RICHARDSON Date: 2022-06-10 09:21 Normal [facility] XR CHEST 2 Von 06-06-2022 [...] by: SUZE MARROQUIN Date: 2022-06-06 12:19 Normal [facility] COVID + FLU Quick Testingon 05-31-2022 SARS-CoV-2 (COVID-19) RNA ABIODUN+probe Ql (Unsp spec) Negative [employer] [facility] [employer] Other COVID + FLU Quick Testing Negative [employer] Other CBC W Auto Differential pane l (Bld)on 05-15-2022 Basophils (Bld) [#/Vol] 0.04 10*3/uL Normal <0.11 [facility] Comment on above: Order Comment: Speci men Type: BLOOD SPECIMEN Ordering Facility: [facility] Address: [address] [address] Performed By: #### 5 7021-8 #### [facility] CLIA [id number] [address] [place] [address] Basophils/100 WBC (Bld) 0.7 % Normal [facility] Comment on above: Order Comment: Speci men Type: BLOOD SPECIMEN Ordering Facility: [facility] Address: [address] [address] Performed By: #### 5 7021-8 #### [facility] CLIA [id number] [address] [place] [address] Differential cell count method Nom (Bld) Auto Normal [facility] Comment on above: Order Comment: Speci men Type: BLOOD SPECIMEN Ordering Facility: [facility] Address: [address] [place] [address] Performed By: #### 5 7021-8 #### [facility] CLIA [id number] [address] [place] [address] Eosinophils (Bld) [#/Vol] 0.15 10*3/uL Normal <0.46 [facility] Comment on above: Order Comment: Speci men Type: BLOOD SPECIMEN Ordering Facility: [facility] Address: [address] [address] Performed By: #### 5 7021-8 #### [facility] CLIA [id number] [address] [place] [address] Eosinophils/100 WBC (Bld) 2.8 % Normal [facility] Comment on above: Order Comment: Speci men Type: BLOOD SPECIMEN Ordering Facility: [facility] Address: [address] [address] Performed By: #### 5 7021-8 #### [facility] CLIA [id number] [address] [place] [address] Erythrocyte distribution width (RBC) [Ratio] 12.7 % Normal 11.5-15.0 [facility] Comment on above: Order Comment: Speci men Type: BLOOD SPECIMEN Ordering Facility: [facility] Address: [address] [address] Performed By: #### 5 7021-8 #### [facility] CLIA [id number] [address] [place] [address] Hematocrit (Bld) [Volume fraction] 47.3 % High 36.0-46.0 [facility] Comment on above: Order Comment: Speci men Type: BLOOD SPECIMEN Ordering Facility: [facility] Address: [address] [address] Performed By: #### 5 7021-8 #### [facility] CLIA [id number] [address] [place] [address] Hemoglobin (Bld) [Mass/Vol] 15.4 g/dL Normal 11.5-15.5 [facility] Comment on above: Order Comment: Speci men Type: BLOOD SPECIMEN Ordering Facility: [facility] Address: [address] [address] Performed By: #### 5 7021-8 #### [facility] CLIA [id number] [address] [place] [address] Immature granulocytes (Bld) [#/Vol] 10*3/uL Normal <0.10 [facility] Comment on above: Order Comment: Speci men Type: BLOOD SPECIMEN Ordering Facility: [facility] Address: [address] [address] Performed By: #### 5 7021-8 #### [facility] CLIA [id number] [address] [place] [address]142 Immature granulocytes/100 WBC (Bld) 0.2 % Normal [facility] Comment on above: Order Comment: Speci men Type: BLOOD SPECIMEN Ordering Facility: [facility] Address: [address] [address] Performed By: #### 5 7021-8 #### [facility] CLIA [id number] [address] [place] [address] 839[address] Lymphocytes (Bld) [#/Vol] 1.42 10*3/uL Normal 1.00-4.00 [facility] Comment on above: Order Comment: Speci men Type: BLOOD SPECIMEN Ordering Facility: [facility] Address: [address] [address] Performed By: #### 5 7021-8 #### [facility] CLIA [id number] [address] [place] [address] 18115 Lymphocytes/100 WBC (Bld) 26.2 % Normal [facility] Comment on above: Order Comment: Speci men Type: BLOOD SPECIMEN Ordering Facility: [facility] Address: [address] [address] Performed By: #### 5 7021-8 #### [facility] CLIA [id number] [address] [place] [address] 94084 MCH (RBC) [Entitic mass] 30.3 pg Normal 26.0-34.0 [facility] Comment on above: Order Comment: Speci men Type: BLOOD SPECIMEN Ordering Facility: [facility] Address: [address] [address] Performed By: #### 5 7021-8 #### [facility] CLIA [id number] [address] [place] [address]007 MCHC (RBC) [Mass/Vol] 32.6 g/dL Normal 30.5-36.0 [facility] Comment on above: Order Comment: Speci men Type: BLOOD SPECIMEN Ordering Facility: [facility] Address: [address] [place] [address] Performed By: #### 5 7021-8 #### [facility] CLIA [id number] [address] [place] [address] 41884 MCV (RBC) [Entitic vol] 92.9 fL Normal 80.0-100.0 [facility] Comment on above: Order Comment: Speci men Type: BLOOD SPECIMEN Ordering Facility: [facility] Address: [address] [place] [address] Performed By: #### 5 7021-8 #### [facility] CLIA [id number] [address] [place] [address] 13106 Monocytes (Bld) [#/Vol] 0.61 10*3/uL Normal <0.87 [facility] Comment on above: Order Comment: Speci men Type: BLOOD SPECIMEN Ordering Facility: [facility] Address: [address] [place] [address] Performed By: #### 5 7021-8 #### [facility] CLIA [id number] [address] [place] [address] 78911 Monocytes/100 WBC (Bld) 11.3 % Normal [facility] Comment on above: Order Comment: Speci men Type: BLOOD SPECIMEN Ordering Facility: [facility] Address: [address] [place] [address] Performed By: #### 5 7021-8 #### [facility] CLIA [id number] [address] [place] [address] 58447 Neutrophils (Bld) [#/Vol] 3.19 10*3/uL Normal 1.45-7.50 [facility] Comment on above: Order Comment: Speci men Type: BLOOD SPECIMEN Ordering Facility: [facility] Address: [address] [address] Performed By: #### 5 7021-8 #### [facility] CLIA [id number] [address] [place] [address] 98597 Neutrophils/100 WBC (Bld) 58.8 % Normal [facility] Comment on above: Order Comment: Speci men Type: BLOOD SPECIMEN Ordering Facility: [facility] Address: [address] [address] Performed By: #### 5 7021-8 #### [facility] CLIA [id number] [address] [place] [address] 70845 Nucleated RBC (Bld) [#/Vol] 10*3/uL Normal <0.01 [facility] Comment on above: Order Comment: Speci men Type: BLOOD SPECIMEN Ordering Facility: [facility] Address: [address] [address] Performed By: #### 5 7021-8 #### [facility] CLIA [id number] [address] [place] [address] 64610 Nucleated RBC/100 WBC (Bld) [Ratio] 0.0 /100 WBC Normal [facility] Comment on above: Order Comment: Speci men Type: BLOOD SPECIMEN Ordering Facility: [facility] Address: [address] [address] Performed By: #### 5 7021-8 #### [facility] CLIA [id number] [address] [place] [address] 87812 Platelet mean volume (Bld) [Entitic vol] 10.7 fL Normal 9.0-12.7 [facility] Comment on above: Order Comment: Speci men Type: BLOOD SPECIMEN Ordering Facility: [facility] Address: [address] [address] Performed By: #### 5 7021-8 #### [facility] CLIA [id number] [address] [place] [address] 04349 Platelets (Bld) [#/Vol] 197 10*3/uL Normal 150-400 [facility] Comment on above: Order Comment: Speci men Type: BLOOD SPECIMEN Ordering Facility: [facility] Address: [address] [address] Performed By: #### 5 7021-8 #### [facility] CLIA [id number] [address] [place] [address] RBC (Bld) [#/Vol] 5.09 10*6/uL Normal 3.90-5.20 [facility] Comment on above: Order Comment: Speci men Type: BLOOD SPECIMEN Ordering Facility: [facility] Address: [address] [address] Performed By: #### 5 7021-8 #### [facility] CLIA [id number] [address] [place] [address] WBC (Bld) [#/Vol] 5.42 10*3/uL Normal 3.70-11.00 [facility] Comment on above: Order Comment: Speci men Type: BLOOD SPECIMEN Ordering Facility: [facility] Address: [address] [place] [address] Performed By: #### 5 7021-8 #### [facility] CLIA [id number] [address] [place] [address] 566[address] CNOVSPon 05-15-2022 CNOVS Visit (SP) Office ([place]) ----- KATARINA CAMARA ([id number]) 1945 F Date Time Provider Department 05/15/22 [...] biopsy completed 02/2016 noted invasive ductal carcinoma ER/[place] positive, HER2 negative. : Lumpectomy completed 03/21/16 noted grade 2 invasive ductal carcinoma, DCIS grade 2, 14 mm : Margins negative (discussed with the pathologist who assured negative margins but that the anterior margin was within 1.0mm anteriorly). : [place] lymph node was positive for involvement. 06/25/16 [...] Invasive ductal carcinoma of right breast (HCC) ER/[place]+ HER2- PAST SURGICAL HISTORY Procedure Laterality Date [...] sores or (more content not included)... Normal [facility] Comprehensive metabolic 2000 panelon 05-15-2022 Albumin [Mass/Vol] 4.5 g/dL Normal 3.9-4.9 [facility] Comment on above: Order Comment: Speci men Type: BLOOD SPECIMEN Ordering Facility: [facility] Address: [address] [address] Performed By: #### 2 4323-8 #### [facility] CLIA [id number] [address] [place] [address]11 ALP [Catalytic activity/Vol] 83 U/L Normal 34-123 [facility] Comment on above: Order Comment: Speci men Type: BLOOD SPECIMEN Ordering Facility: [facility] Address: [address] [address] Performed By: #### 2 4323-8 #### [facility] CLIA [id number] [address] [place] [address] 95494 ALT [Catalytic activity/Vol] 11 U/L Normal 7-38 [facility] Comment on above: Order Comment: Speci men Type: BLOOD SPECIMEN Ordering Facility: [facility] Address: [address] [place] [address] Performed By: #### 2 4323-8 #### [facility] CLIA [id number] [address] [place] [address] 30878 Anion gap [Moles/Vol] 9 mmol/L Normal 9-18 [facility] Comment on above: Order Comment: Speci men Type: BLOOD SPECIMEN Ordering Facility: [facility] Address: [address] [place] [address] Performed By: #### 2 4323-8 #### [facility] CLIA [id number] [address] [place] [address] 78073 AST [Catalytic activity/Vol] 20 U/L Normal 13-35 [facility] Comment on above: Order Comment: Speci men Type: BLOOD SPECIMEN Ordering Facility: [facility] Address: [address] [address] Performed By: #### 2 4323-8 #### [facility] CLIA [id number] [address] [place] [address] 90157 Bilirubin [Mass/Vol] 0.7 mg/dL Normal 0.2-1.3 [facility] Comment on above: Order Comment: Speci men Type: BLOOD SPECIMEN Ordering Facility: [facility] Address: [address] [address] Performed By: #### 2 4323-8 #### [facility] CLIA [id number] [address] [place] [address] 13218 Calcium [Mass/Vol] 9.5 mg/dL Normal 8.5-10.2 [facility] Comment on above: Order Comment: Speci men Type: BLOOD SPECIMEN Ordering Facility: [facility] Address: [address] [address] Performed By: #### 2 4323-8 #### [facility] CLIA [id number] [address] [place] [address] 35875 Chloride [Moles/Vol] 99 mmol/L Normal 97-105 [facility] Comment on above: Order Comment: Speci men Type: BLOOD SPECIMEN Ordering Facility: [facility] Address: [address] [address] Performed By: #### 2 4323-8 #### [facility] CLIA [id number] [address] [place] [address] 69927 CO2 [Moles/Vol] 30 mmol/L Normal 22-30 [facility] Comment on above: Order Comment: Speci men Type: BLOOD SPECIMEN Ordering Facility: [facility] Address: [address] [address] Performed By: #### 2 4323-8 #### [facility] CLIA [id number] [address] [place] [address] 05398 Creatinine [Mass/Vol] 1.08 mg/dL High 0.58-0.96 [facility] Comment on above: Order Comment: Hortencia harper Type: BLOOD SPECIMEN Ordering Facility: [facility] Address: [address] [address] Performed By: #### 2 4323-8 #### [facility] CLIA [id number] [address] [place], [place] [address] ESTIMATED GLOMERULAR FILTRATION RATE 54 mL/min/1.73m??? Low >=60 [facility] Comment on above: Order Comment: Hortencia harper Type: BLOOD SPECIMEN Ordering Facility: [facility] Address: [address] [place] [address] Result Comment: Cathy mated Glomerular Filtration Rate [...] GFR. Performed By: #### 2 4323-8 #### [facility] CLIA [id number] [address] [place] [address] 64112 Glucose [Mass/Vol] 94 mg/dL Normal 74-99 [facility] Comment on above: Order Comment: Hortencia harper Type: BLOOD SPECIMEN Ordering Facility: [facility] Address: [address] [place] [address] Result Comment: The [employer]eless Diabetes Association (ADA) provides guidance for cutoff [...] Standards of Medical Care in Diabetes 2016, Stateless Diabetes Association. Diabetes Care. 2016.39(Suppl 1). Performed By: #### 2 4323-8 #### [facility] CLIA [id number] [address] [place] [address] 98258 Potassium [Moles/Vol] 4.2 mmol/L Normal 3.7-5.1 [facility] Comment on above: Order Comment: Speci men Type: BLOOD SPECIMEN Ordering Facility: [facility] Address: [address] [address] Performed By: #### 2 4323-8 #### [facility] CLIA [id number] [address] [place] [address] 48641 Protein [Mass/Vol] 6.7 g/dL Normal 6.3-8.0 [facility] Comment on above: Order Comment: Speci men Type: BLOOD SPECIMEN Ordering Facility: [facility] Address: [address] [address] Performed By: #### 2 4323-8 #### [facility] CLIA [id number] [address] [place] [address] 54650 Sodium [Moles/Vol] 138 mmol/L Normal 136-144 [facility] Comment on above: Order Comment: Speci men Type: BLOOD SPECIMEN Ordering Facility: [facility] Address: [address] [address] Performed By: #### 2 4323-8 #### [facility] CLIA [id number] [address] [place] [address] 79505 Urea nitrogen [Mass/Vol] 15 mg/dL Normal 7-21 [facility] Comment on above: Order Comment: Speci men Type: BLOOD SPECIMEN Ordering Facility: [facility] Address: [address] [address] Performed By: #### 2 4323-8 #### [facility] CLIA [id number] [address] [place] [address] 33717 CBC AUTO DIFFon 04-24-2022 BASO # 0.0 103/ul Normal 0.0-0.1 [facility] Comment on above: Performed By: #### C BC #### [facility] [address] [place] [address] Dr. Mag Charles Basophils/100 WBC (Bld) 0.7 % Normal 0.2-2.0 [facility] Comment on above: Performed By: #### C BC #### [facility] [address] [place] [address] Dr. Mag Charles EO # 0.2 103/ul Normal 0.0-0.7 [facility] Comment on above: Performed By: #### C BC #### [facility] [address] [place] [address] Dr. Mag Charles Eosinophils/100 WBC (Bld) 3.0 % Normal 0.9-7.0 [facility] Comment on above: Performed By: #### C BC #### [facility] [address] [place] [address] Dr. Mag Charles Erythrocyte distribution width (RBC) [Ratio] 13.1 % Normal 11.0-15.0 [facility] Comment on above: Performed By: #### C BC #### [facility] [address] [place] [address] Dr. Mag Charles Hematocrit (Bld) [Volume fraction] 45.7 % Normal 36.0-48.0 [facility] Comment on above: Performed By: #### C BC #### [facility] [address] [place] [address] Dr. Mag Charles Hemoglobin (Bld) [Mass/Vol] 15.2 g/dL Normal 12.0-16.0 [facility] Comment on above: Performed By: #### C BC #### [facility] [address] [place] [address] Dr. Mag Charles IG # 0.02 10e3/ul Normal 0.00-0.03 [facility] Comment on above: Performed By: #### C BC #### [facility] [address] [place] [address] Dr. Mag Charles IG % 0.3 % Normal 0.0-0.5 [facility] Comment on above: Performed By: #### C BC #### [facility] [address] [place] [address] Dr. Mag Charles LYMPH # 1.5 103/ul Normal 1.2-3.8 [facility] Comment on above: Performed By: #### C BC #### [facility] [address] [place] [address] Dr. Mag Charles Lymphocytes/100 WBC (Bld) 25.7 % Normal 20.5-60.0 [facility] Comment on above: Performed By: #### C BC #### [facility] [address] [place] [address] Dr. Mag Charles MANUAL DIFF REQ NO Normal [facility] Comment on above: Performed By: #### C BC #### [facility] [address] [place] [address] Dr. Mag Charles MCH (RBC) [Entitic mass] 30.2 pg Normal 26.7-34.0 [facility] Comment on above: Performed By: #### C BC #### [facility] [address] [place] [address] Dr. Mag Charles MCHC (RBC) [Mass/Vol] 33.3 g/dL Normal 29.9-35.2 [facility] Comment on above: Performed By: #### C BC #### [facility] [address] [place] [address] Dr. Mag Charles MCV (RBC) [Entitic vol] 90.7 fL Normal 81.0-99.0 [facility] Comment on above: Performed By: #### C BC #### [facility] [address] [place] [address] Dr. Mag Charles MONO # 0.6 103/ul Normal 0.3-0.8 [facility] Comment on above: Performed By: #### C BC #### [facility] [address] [place] [address] Dr. Mag Charles Monocytes/100 WBC (Bld) 10.4 % Normal 1.7-12.0 [facility] Comment on above: Performed By: #### C BC #### [facility] [address] [place] [address] Dr. Mag Charles NEUT # 3.6 103/ul Normal 1.4-6.5 [facility] Comment on above: Performed By: #### C BC #### [facility] [address] [place] [address] Dr. Mag Charles Neutrophils/100 WBC (Bld) 59.9 % Normal 43.0-75.0 [facility] Comment on above: Performed By: #### C BC #### [facility] [address] [place] [address] Dr. Mag Charles Platelet mean volume (Bld) [Entitic vol] 10.2 fL Normal 9.5-13.5 [facility] Comment on above: Performed By: #### C BC #### [facility] [address] [place] [address] Dr. Mag Charles PLT 175 103/ul Normal 150-450 [facility] Comment on above: Performed By: #### C BC #### [facility] [address] [place] [address] Dr. Mag Charles RBC 5.04 106/ul Normal 4.20-5.40 [facility] Comment on above: Performed By: #### C BC #### [facility] [address] [place] [address] Dr. Mag Charles WBC 6.0 103/ul Normal 4.0-11.0 [facility] Comment on above: Performed By: #### C BC #### [facility] [address] [place] [address] Dr. Mag Charles GLYCOHEMOGLOBIN A1Con 2022 ADA RECOMMENDATION SEE BELOW Normal [facility] Comment on above: Result Comment: ADA RECOMMENDED LIMIT 4.0 - 6.0 ADA THERAPEUTIC TARGET < 7.0 ACTION SUGGESTED > 7.0 Performed By: #### C VDTBH #### [facility] [address] [place] [address] Dr. Mag Charles Glucose [Mass/Vol] 123 mg/dL Normal [facility] Comment on above: Performed By: #### C VDTBH #### [facility] [address] [address] [address] Mag Charles HbA1c (Bld) [Mass fraction] 5.9 % Normal 4.5-6.2 [facility] Comment on above: Performed By: #### C VDTBH #### [facility] [address] [address] [address] Mag Charles LIPID PROFILEon 04-24-2022 CHOL-HDL RATIO NORM SEE BELOW Normal [facility] Comment on above: Result Comment: 3.3 - 4.4 LOW RISK 4.4 - 7.1 AVERAGE RISK 7.1 - 11.0 MODERATE RISK >11.0 HIGH RISK Performed By: #### T SH, CMP, LIPID #### [facility] [address] [address] [address] Mag Charles Cholesterol [Mass/Vol] 169 mg/dL Normal <=200 [facility] Comment on above: Performed By: #### T SH, CMP, LIPID #### [facility] [address] [address] [address] Mag Charles Cholesterol in HDL [Mass/Vol] 49 mg/dL Normal 40-60 [facility] Comment on above: Performed By: #### T SH, CMP, LIPID #### [facility] [address] [address] [address] Mag Charles Cholesterol in LDL [Mass/Vol] 83.2 mg/dL Normal [facility] Comment on above: Performed By: #### T SH, CMP, LIPID #### [facility] [address] [address] [address] Mag Charles Cholesterol.total/Chol esterol in HDL [Mass ratio] 3.4 {ratio} Normal [facility] Comment on above: Performed By: #### T SH, CMP, LIPID #### [facility] [address] [address] [address] Mag Charles HDL NORMAL > or = 60 mg/dl - LO W CARDIOVASCULAR RISK <40 mg/dl - HIGH CARDIOVASCULAR RISK Normal [facility] Comment on above: Performed By: #### T SH, CMP, LIPID #### [facility] [address] [address] [address] Mag Charles LDL CALC NORMAL SEE BELOW Normal [facility] Comment on above: Result Comment: <100 mg/dl OPTIMAL 100 - 129 mg/dl NEAR OR ABOVE OPTIMAL 130 - 159 mg/dl BORDERLINE HIGH 160 - 189 mg/dl HIGH >190 mg/dl VERY HIGH Performed By: #### T SH, CMP, LIPID #### [facility] [address] [address] [address] Mag Charles Triglyceride [Mass/Vol] 184 mg/dL Critically high <=150 [facility] Comment on above: Performed By: #### T SH, CMP, LIPID #### [facility] [address] [address] [address] Mag Charles VLDL CALC 36.8 mg/dL Normal [facility] Comment on above: Performed By: #### T SH, CMP, LIPID #### [facility] [address] [address] [address] Mag Charles PROF 14(COMP METB)on 023 Albumin [Mass/Vol] 3.9 g/dL Normal 3.4-5.0 [facility] Comment on above: Performed By: #### T SH, CMP, LIPID #### [facility] [address] [address] [address] Mag Charles Albumin/Globulin [Mass ratio] 1.3 {ratio} Normal [facility] Comment on above: Performed By: #### T SH, CMP, LIPID #### [facility] [address] [address] [address] Mag Charles ALP [Catalytic activity/Vol] 71 U/L Normal 46-116 [facility] Comment on above: Performed By: #### T SH, CMP, LIPID #### [facility] [address] [address] [address] Mag Charles ALT [Catalytic activity/Vol] 23 U/L Normal 14-59 [facility] Comment on above: Performed By: #### T SH, CMP, LIPID #### [facility] [address] [address] [address] Mag Charles Anion gap [Moles/Vol] 7.8 mmol/L Normal [facility] Comment on above: Performed By: #### T SH, CMP, LIPID #### [facility] [address] [address] [address] Mag Charles AST [Catalytic activity/Vol] 22 U/L Normal 15-37 [facility] Comment on above: Performed By: #### T SH, CMP, LIPID #### [facility] [address] [address] [address] Mag Charles Bilirubin [Mass/Vol] 0.7 mg/dL Normal 0.2-1.0 [facility] Comment on above: Performed By: #### T SH, CMP, LIPID #### [facility] [address] [address] [address] Mag Charles Calcium [Mass/Vol] 9.2 mg/dL Normal 8.5-10.1 [facility] Comment on above: Performed By: #### T SH, CMP, LIPID #### [facility] [address] [address] [address] Mag Charles Chloride [Moles/Vol] 104 mmol/L Normal 98-107 [facility] Comment on above: Performed By: #### T SH, CMP, LIPID #### [facility] [address] [address] [address] Mag Charles CO2 [Moles/Vol] 32.0 mmol/L Normal 21.0-32.[address] [facility] Comment on above: Performed By: #### T SH, CMP, LIPID #### [facility] [address] [address] [address] Mag Charles Creatinine [Mass/Vol] 1.15 mg/dL Critically high 0.55-1.02 [facility] Comment on above: Performed By: #### T SH, CMP, LIPID #### [facility] [address] [address] [address] Mag Charles EGFR-AF GIBRALTARIAN 56 mL/min/1.73m2 Critically low >=60 [facility] Comment on above: Performed By: #### T SH, CMP, LIPID #### [facility] [address] [address] [address] Mag Charles EGFR-NON AF GIBRALTARIAN 46 mL/min/1.73m2 Critically low >=60 [facility] Comment on above: Performed By: #### T SH, CMP, LIPID #### [facility] [address] [place] [address] Dr. Mag Charles Globulin (S) [Mass/Vol] 3.1 g/dL Normal [facility] Comment on above: Performed By: #### T SH, CMP, LIPID #### [facility] [address] [place] [address] Dr. Mag Charles Glucose [Mass/Vol] 102 mg/dL Normal 74-106 [facility] Comment on above: Performed By: #### T SH, CMP, LIPID #### [facility] [address] [place] [address] Dr. Mag Charles Potassium [Moles/Vol] 4.8 mmol/L Normal 3.5-5.1 [facility] Comment on above: Performed By: #### T SH, CMP, LIPID #### [facility] [address] [place] [address] Dr. Mag Charles Protein [Mass/Vol] 7.0 g/dL Normal 6.4-8.[address] [facility] Comment on above: Performed By: #### T SH, CMP, LIPID #### [facility] [address] [place] [address] Dr. Mag Charles Sodium [Moles/Vol] 139 mmol/L Normal 136-[address] [facility] Comment on above: Performed By: #### T SH, CMP, LIPID #### [facility] [address] [place] [address] Dr. Mag Charles Urea nitrogen [Mass/Vol] 15.0 mg/dL Normal 7.0-18.0 [facility] Comment on above: Performed By: #### T SH, CMP, LIPID #### [facility] [address] [place] [address] Dr. Mag Charles Urea nitrogen/Creatinine [Mass ratio] 13.0 mg/mg Normal [facility] Comment on above: Performed By: #### T SH, CMP, LIPID #### [facility] [address] [address] [address] Mag Charles TSHon 04-24-2022 TSH 2.057 uIU/mL Normal 0.358-3.74 0 [facility] Comment on above: Performed By: #### T SH, CMP, LIPID #### [facility] [address] [address] [address] Mag Charles MG MAMM SCREEN 3D DA CADon 04-03-2022 MG MAMM SCREEN 3D DA CAD Patient: KATARINA CAMARA Exam Date: 04/03/2022 : 1945 Gender:F Ordering : ROSA TURNER Admission #: [id number] Family : DR NICOLE VARGAS M.D. Order #: [id number] CLICK HERE TO VIEW EXAM RADIOLOGY REPORT [...] and chemotherapy Family Cancers None LOCATION: [facility] BREAST COMPOSITION: Scattered areas fibroglandular density. FINDINGS: [...] Wood M.D. on 04/03/2022 at 15:05 Normal [facility] MRA HEAD WO CONon 10-31-2021 [...] authenticated by: PEPPER WOOD Date: 2021-10-31 11:01 Normal [facility] Consent Formson 02-14-2021 Consent Forms [id number]#1.00OTGTI [facility] Provider Orderson 02-10-2021 Provider Orders [id number]#1.00OTGTI [facility] Coding Summaryon 02-08-2021 Coding Summary [facility] MphvbyxwKKq2cYq+PGhlYWQ+P O6KWTSgK19hoBXhvF3SN6oTWV 3SRCAIUFZKOA5YOQ9kjKQ0KVj yY1WpdxFu NjudpZDaCP27NFp4XOK5eFklK JusuY7tgIZuR3g9RuPxBK27oG 65DBmzCMYfPnK9LeRwhdiakIK y F3roLiRpcQXtZbs+PHRhYmxlI HdpZHRoPScxMDAlJyBzdHlsZT 4fPm1bVLNcXMPxnMzhuXZiBaC j j0jaIPHtUAejGO4oaXihA1Rtg UL6EMHyr2x9Mm75cTW+PHRkIH B9fNoxZSywh364MqJce9mwCVX 3 jPItTAyjQIH1U60fp0X3TERhY CLlKUX1tWH5uU5psIbpsymbK1 DbrEFsMeV6YMS2xRHrvB3xyIy n sixutI7gQbq+L68VMO9KAKBHG G4XLsg4O8QjMlblvUR+PC90YW OpPF71dCOkoYDdf0oicWm5UoY w QBIiTKZ1kGpzQObil2SyKDZvT 68oxMKuo6X0RFKgoAzrwNKwIv UkdCK1aE6oEXhmzyotw4oaucq n Nfcft0cobe01oT28E90eAQgnE SVuPFO2QGSvLSCzgGsanm2ofE 9wIi8+MHfsk2hma8kfjTj9VsW w TCObsxXatXmwMAC3c9JhDp50E 5KucTcmf9MnJwd2tt44kLJac7 K9zIU5GPkiYANscF6rOQubAfG 6 ACPyMiHnrS39aSNnEXvbCf3dx GtgzIusIB3bUMEqlkuaOOItuI 7sFLOssWHrcOekPW0cMHJllgq m y974MfXzITX2APZpdHRoZ5Ezm F6aLbJmDMAbVJHzU9HbwAQgXM wjP852TLuvZjV8MHHoymTmF9D s LLTixCzxWzJ0e2R7Jt0Sd9Vqd inxWJH2FBalVCCzMyE3FlAoIw F1H2OfSrh7OBMhfLsyWN4jR4H h ONLupllvpeaioHH8SXKwZHOwm B16sPCyGJmnPf1ns4Z1o594QT QhXPPrfQ82Qx7ayWcjEOEzeXM U aM5qpuqgc6eojbfcXwYpFREdG Ps4ZSp4HYBdlCyzGdPeOUY5Ri P8VGG3hBTivN3jnXnjsukyvZ8 w Oyc+N39ksU4jUZD2RSR3onfhP RObfeMzIE89MK87D5TpNshpbO FibGU+KBZpqcPamKmoER7hPfW j b6muk2QsIKwlD6BrXQDfWXavU xr0TREvYXU0eUT7hD0uLFEtFQ cov0U1gMZ4K2PtlcHgtj0ut3d s CHFqWGysK98boYFpf6J0PVVpq DQ4QEGmoAigJrDofM35Oum+PG RvdZwzb6NwQaffe3bor2fkjYe 9 WrOyXPBmxqPqrDsjSOS7f5UdV e49W87lUFpeKQYeGDJcGHOhUV CjaWjsxt9xtV1dOt9+PGNvbCB 3 cPB2fM4aTFEfUfD5IGxaR019R zRppETsDvlxl7hkl3duuMv8Ig FjMPZagtTglRxgQXM0k0FdKg5 8 J01lFMsyWVDiHPQiGAImUPRek Holqe1imY0aUv8+AK9xl5cbdm 18pT70tYJ+JRDtYTC7pCbzHLs w UEXzpB2eETyuCaM2QJIxFcKpf I84dKVwCYyzLy0nbDhyaDroXR 7sWZHsbcgja626PyKto4xqMQW w kNAkRLezNFV4Q11zd1K1MZVrT HSiXHR8tIN5dK4pbGmwkzhxzD DxnRmjwmUvhMgvEPxbTMhcC18 6 IHRvcDsnPlBhdGllbnQgTmFtZ Kc3B6PmLmz1AIDslTbkXJ1ikM ItVSxaEy3myRqoyNjsCS7tTTV p loanb908PbUhf8tgQWCfyGMsM IesSIN3D80bi9R7NCKqHAJmLE K2vKD9iJ8cgHwhnokhzSRylQo g fxYrfTlbIAgcBSisZ003SUUav YzcPkCqkuEdCQFsgXE6GV45JD 40bDXst6L9qQN2B6ThTQIexkc t qjaxgQW4CYNcMPBzdQ67Sl2fl VwmAi3bFTDxHPP0JVUtgJRgX3 WedG1dAtXvPGDeAJQpB2HcoTD t QYxaJ933GGeyBpO1YWCnqzQbN 9KjHAPomKccKeI4n6M8Ru0FH8 C4FO01FB83wPVje7H0yAD7O2V h BENwoomjkhvbzDB6EGLaNZWhq Y62Cc7jbXezLj8qFDPkEWV1XY EmdALqP0QmeP3xWqLnWFNbGTL w U4KgeMIpVFmjE135LQgbHnM7A HMnkpVkL9NyLSHevAgvHgN9s9 N7Bl4XHDb9MC00EI30iKUet2P 5 tJD4G7FxZDBnpzrtewpunEB4E DJzZVVkbX17Ea7paNnbEk0iBU FvYRF9HQLhhOKfL2UnzU5yHoS j OFTzUBQdN6BtwDMeCWjvM985A XgqKlT5LCLlqjVsX0WqUDIupX pqCsT1k8S5Sq3WJNViIC97BUA 5 qQC0LB20HJ71Z8XdYwzfwQDqp +PHRhYmxlIHdpZHRoPScxMD ReFfBhgCbmNT8gSf8zTUZdQKC v oFpsaAYeReByj9amIEPcGQcfO V5xiEieK6ZrpWJ4PNBil1j2Fd 72J03cT4KqbWV+JKNdpNT8zDK 0 dJ4oSfIsGmO9FPvrQ108NqWla XXsJxsam7dbo3wevHk5XiS6WR OtpgHnkDjqLEH3l2ZnMn85G39 s IHdpZHRoPSIxNSUiIHZhbGlnb k8jeZ2tUh7+RQBxuRL5hWQ7aD 2yQiHeOvC0EXxgV371KwDomII v Oeixn8ixk4warMf5NsSkBQAdm oRedTdoHBU0w2UgKi86D5MhlU ckc2HaUlb2ap41fAYrt0B8yWO 9 I7QfJILthooxxLMnyFapPJ2cK UYyyhqnSMDvdY5nLHEuQ9c5Qb AjJaX3OKukS1DukoG8RLAqpGF g OIdkRDI3C72sp2D2BAMxPNMcM JN7tWW2tO7mmQrehjomnBVwtG xecgMczDhwMIuiIFhyL318UYI v jUbnZAXurI9mMSXdrYPrhWwdB F3oWQUkscwrCd6NXR8NANnlQu 6GM6PvQNxqxDM+VWDlYKO4bYe l BGmaGRMddP2sDUZzC2y5NyVdE oO1PFohR1MsOLMhxturVy83eC 2uEwKmUkI2IGogB3SnspQ0ARV w jOFyPSuxMVR8G99lh2L6VNJcI IEbMSA9aOG3bF4zbRgzmqtsqD OsfEvoagMgmBcxCSvrWZyfI91 6 BUMyuSnoSzN2IhWzFyQ4EMl7H 7WpNmc3RXMbhZzlXN8lnHCmGF zwDy6whAuaxZhdHP5wARPpnlb w CGHisM8uQTEwcBSalSlwEB6dF QTamvbgj858MbVlISR5UWGriJ KeT2RrdW0mJkPnOCGzYEYfV0L l rBUuFBerD155TYtaBgW5KWZbh hVdL8ZgGAJcaShoChB0f8X2Xy 43MyBZZWFyczwvdGQ+PHRkIHN 0 rObpORagNOOisI5tOHWpP0s7M nPjOqB6SWprM1LmCMEqznraQe 72aM5cRqKdEfG7PSluF0QfdoF 6 MGFhwCHtTCzqGVV1F95xm5R1I XZsHKKqKTJ2sOB7cW2gkGlgvc ogbGVmdDsgdmVydGljYWwtYWx p K896ZPGwtNptMrXYNSOZEQhlf GQ+GJMqDJQ8oPblVQwoDJBhnO 0oFYWeU9e5KiYbRoZ2GNirU8U h HJEiuxlxVk80nO6sLqCcXvE2H IgfE4PucqY5YIHvqDRqJFscJU V2K85zl2D0RXRtNVDoREM2cRN 4 gI6thHmcfjnovQBnpBkdrkRwr BvtCSimOClxK870AGLztNocQq 8qx4QknuF7wN7aPV82XH98N3T y PjwvdGFibGU+PHRhYmxlIHdpZ KQkVHtjYTZlXwIsuJpwJY2jPu 2lFGThFMBlvGohnTPbRfSrq9e s WHImSHsdKV7sjVpgR5HniDJ1C LYpu9x1Sc04J07gG7QaqOF+PG NdpUZ0rFW7fW6gFfXhKiI6UQs p M929ExHiaRGpLcezb3hxo0ylm Un2CiPsIZRtrgCxiKrhLRN4o0 MqYu71O29uKGzqLKDnQHYyNJF i HWBnyEdhcq1eqZ8aOg9+PGNvb WD8eXF9oX4uDfImJcQ3OCanM7 51HoIhlTYiWgxrS65jD0MpbWQ + KFBaWcs6SHZxwVrfSJ4flEUaT XciEm8oOAG9FlYyIsUsATqjB6 CoIGJfefbgrdbhkGJ5PPUpFLP w aT14Cn6hqNlpNx1nHZUpICT1D SXcbTFiY1FtsF5dEsSwJIOdBX IdK3VnaQMcVPasI796QFoqXqJ 7 YHQelkIrU7SzTOKlaDroOnN9j 7R9Vq6GzEdxkNVdCO2aAyTmIO f7X2ExTmk0RAQntGzeUY9gvOE k OBbcNj1qlKjtxVyhCT8nCXChf dlgq398PtStz1fwVFVtvDVyKO rdTUQ3W21nk5G8HUEwVTYyVWR 7 iZC1jK3yaOmhjfqnmVPofYige zHuuZjhUYhsCNneR460YJDbgV jbBxMCJcg4C4AgCyh0OJWfuDg s JF8ruEMpMOpqRt1sfAjaaQwxZ U5tMVNlohmsl122KtQnk3sxHL LleEDaOZsrLZW6Y51sg5K7RNR w FOYqKCQ6qEJ0dP4izYhqjjent GVmdDsgdmVydGljYWwtYWxpZ2 45RPOgwEvcHb6AUyg8A4HfOmv 0 ZPCxmXadUU4nnDIePIieFb3uw PfpmXfgTY5uWOQznudef460Tu Vab3itRCHxyKWpCYpuHQQ5Y32 s f5T3CCDuMYHfLUL7jCX8dM3hz GlnbjogbGVmdDsgdmVydGljYW shWHneC655IDNbcQviPuBdiLR y OjwvdGQ+JW92kl07P7PlPwygM rf7ISIdKEU3jGQ0iL1dPAPlSJ xhl2V9oIC4S1WeqsYjez0og5s s YXB (more content not included)... [facility] Consent Formson 02-08-2021 Consent Forms [id number]#1.00OTGTI FF [facility] Consent Forms [id number]#1.00OTGTI FF [facility] Discharge Instructionson Discharge Instructions [id number]#1.00OTGTI FF Normal [facility] Inpatient Patient Summaryon 02-08-2021 Inpatient Patient Summary [address] [address] Patient Discharge Instructions Name: KATARINA CAMARA : 1945 Patient Address: [address] [place] [address] Primary Care Provider: Name: NICOLE VARGAS MD After you are discharged if you find you have any questions, please, call [phone] ext [phone] to speak to a nurse. Discharge Diagnosis: [...] alcohol and/or drug addiction problems; contact the [facility] 24/09 Crisis Hotline -text 4hope to [phone]. If you received any narcotics, sedation, or [...] business decisions or sign any legal documents [facility] would like to thank you for allowing us to assist you with your healthcare needs. The following includes patient education materials and information regarding your injury/illness. KATARINA CAMARA has been given the following list of follow-up instructions, prescriptions, and patient education materials: Follow-up Instructions With: Address: When: Bernadine Diaz [address] [place] [address] Business (1) 12/17/2020 11:00 AM With: Address: When: NICOLE VARGAS [address] [place], [place] [phone] [facility] (1) Medications During the course of your [...] tab(s) Ora (more content not included)... Normal [facility] Outside Recordson 02-08-2021 Outside Records [id number]#1.00OTGTI FF Normal [facility] POCT Glucose Levelon 021 Glucose [Mass/Vol] 105 mg/dL Normal 74-118 [facility] Comment on above: Performed By: #### 4 [id number] #### [facility] (DEFAULT) [address] [place] [address] Pharmacy Noteon 02-08-2021 Pharmacy Note I have [...] [Verified on: 02/08/2021 09:18 EST] Nury Soto [facility] Telemetry Stripson Telemetry Strips [id number]#1.00OTGTI [facility] Consent Formson 02-07-2021 Consent Forms [id number]#1.00OTGTI [facility] Consultation/Specialist Note on 02-07-2021 Consultation/Specialis t Note Patient: KATARINA CAMARA Age: 75 years Sex: FEMALE : 1945 Associated Diagnoses: None Author: THADDEUS GAMING Basic Information 1 day s/p RT ALEA (DOS 02/06/21) Subjective Pt notes she is doing ok, she has been up with therapy, pain 4/10, she is thinking she may go home [...] [Verified on: 02/07/2021 07:57 EST] THADDEUS GAMING [facility] MAGR Postoperative Recordon 02-07-2021 MAGR Postoperative Record MAGR Phase II Record Summary Primary Physician: Bernadine Diaz DO Finalized Date/Time: 02/07/21 09:54:12 Pt. Name: KATARINA CAMARA/Sex: 1945 FEMALE Med Rec #: [id number] Physician: Bernadine Diaz DO Financial #: [id number] Pt. Type: O Room/Bed: 235/1 Admit/Disch: 02/06/21 [...] Signed By: Jordyn Young RN 02/07/21 09:54 [facility]2020 [facility] Pre-Op Record Summary Primary Physician: Bernadine Diaz DO Finalized Date/Time: 02/07/21 09:20:14 Pt. Name: KATARINA CAMARA/Sex: 1945 FEMALE Med Rec #: [id number] Physician: Bernadine Diaz DO Financial #: [id number] Pt. Type: O Room/Bed: 235/1 Admit/Disch: 02/06/21 [...] consent correct. General Comments: Pt arrives to [facility] ambulatory. Pt has #5 pain in right hip, she denies cp, sob, cough or flu like symptoms. Pt denies pacemaker/defibilaltor or sleep apnea. Finalized By: Kristina Schulte RN Document Signatures Signed By: Kristina Schulte RN 02/07/21 09:20 Normal [facility] POCT Glucose Levelon 021 Glucose [Mass/Vol] 137 mg/dL High -118 [facility] Comment on above: Performed By: #### 4 [id number] #### [facility] (DEFAULT) [address] [place] [address] Glucose [Mass/Vol] 111 mg/dL Normal -[address] [place] [address] Comment on above: Performed By: #### 4 [id number] #### [facility] (DEFAULT) [address] [place] [address] Glucose [Mass/Vol] 151 mg/dL High 74-118 [facility] Comment on above: Performed By: #### 4 [id number] #### [facility] (DEFAULT) [address] [place] [address] Glucose [Mass/Vol] 126 mg/dL High -118 [facility] Comment on above: Performed By: #### 4 [id number] #### [facility] (DEFAULT) [address] [place] [address] Anesthesia Noteon 02-06-2021 Anesthesia Note Patient: ROCKY [...] obstructive pulmonary disease (COPD) / SNOMED CT 96189695 / Confirmed Hypertension / SNOMED CT 9861496793 / Confirmed Hypothyroidism / SNOMED CT 62807829 / Confirmed Kidney failure / SNOMED CT 21570153 / Confirmed Diabetes type 2, controlled / SNOMED CT 627626833 / Confirmed Physical Examination VS/Measurements Vital Signs [...] on: 02/06/2021 15:15 EST] Jeff Bunn MD [facility] Anesthesia Note Patient: ROCKY CAMARA Age: [...] obstructive pulmonary disease (COPD) / SNOMED CT 54370976 / Confirmed Hypertension / SNOMED CT 2899246302 / Confirmed Hypothyroidism / SNOMED CT 06950954 / Confirmed Kidney failure / SNOMED CT 27197639 / Confirmed Diabetes type 2, controlled / SNOMED CT 454896427 / Confirmed Resolved: CHF (congestive heart failure) / SNOMED CT 02245725 Resolved: CAD (coronary artery disease) / SNOMED CT 72398826 Resolved: Breast cancer / SNOMED CT 024999777 Histories Family History: Aneurysm Sister Brother Brain tumor Brother Procedure history: ESWL of kidney ([id number]) on 12/29/2020 at 75 Years. Comments: 01/19/2021 13:20 EST - Kristina Schulte RN Left [place] node ([id number]) in 2016 at 70 Years. Lumpectomy of breast (8463395454) in 2016 at 70 Years. Comments: 11/04/2020 13:16 TREVA - Chelsi Alicia RN right ESWL - Extracorporeal shockwave lithotripsy for renal calculus (325806188) in 2007 at 62 Years. Hysterectomy (488683739). Tubal ligation (383453773). Appendectomy (946441596). Ganglion cyst of left wrist ([id number]). Laparoscopic cholecystectomy (83904784). Colonoscopy (651620180). Social History Electronic Cigarette/Vaping Assessment Electronic Cigarette [...] 09:10) Review / Management Laboratory Results Plan [employer] Anesthesiologists#(ASA) physical status classification: Class III. Anesthetic Preoperative Plan Anesthesia: General. . Anesthetic plan, risks, benefits, and alternatives discussed with the patient and/or family. Patient verbalized understanding. Anesthetic technique: General anesthesia. [Electronically Signed on: 02/06/2021 09:57 EST] Sepideh, Jeff Napier MD [Verified on: 02/06/2021 09:57 EST] Jeff Bunn MD [facility] Coding Summaryon 02-06-2021 Coding Summary HTMLBase 64 FokzokguYGl3yOj+PGhlYWQ+P R2FWGPhF76vaDFhyV0AT2lPGP 1KYFTXQSWWBF5HTJ4qiDC4YRy gH1YyyfAm TbzabRZcKC63SJa1PAP1gQfdP TnmyK9ucDFfR8g0HjGbNK69vX 79TAvlMIXdYcV4EkKchodznCW y L2hvQjUcyVOqLti+PHRhYmxlI HdpZHRoPScxMDAlJyBzdHlsZT 8sOm3vSANwSEHmtEqvhENnTuS j l4opJOZcEFqxCT9syQjbS8Drw ZG2HIGrr7h1Ka02dWI+PHRkIH K1zNleJIsvl484MhVdf4tjHSO 3 nQTpADcqFBQ2B99ql6F6XNIsD NDvEON7vMO3dQ7hmFwnojvcY0 ErxVXwVrQ2UIE7zXKnoB7ovNc n asrurI6yMlc+Z17QTU0SZFITY Z2ETka2A3AjJuuwhBS+PC90YW TlWE66aHXedHIzo5svrXz9NiR w MKObNVC6nMtwPSsjr3CxPJZaW 86egKFhp4H5PNZglQvxqDEdIh LhhNM2gZ1hKQxgkyrvs6cbzbh n Rxrcj5qfvz93zP30T33mYKwdN ZEqAXA9LZDdVLBhrPlbtz5wfE 9wIi8+ZHzgw5qhw8ynyHn5KdL w YGLkxuVixXljTLA4u5BkEd15A 3VfgOixv0EcAbw1cn75wUAca1 O4xEH9KBisINZijX3yGWryZlU 6 MCDfYiVtmL84cMHeBKydSp3xa VagpXljRK1uIXYgkmqvITMveP 5vVBNosDJxvCmwAK3vRBFufhw m b706FgSkJKK2MABjlZWmX0Sur W5sNyGwFLUnQAYxO5GmtXGbBX egM493YKtdApX8OCSlznRqU0W s YLXalIilVnR9o9I8Po2Xq1Cko lvxWDA5UIwmBGNvZiR8DuHjOm D6O8UrNis8EMInoSvwHA3yA2W h KQCxmntdyrgcuUN4RKZyXSRtm H90gCKyDTowEk7yu2W8b336GQ OzJNQhqV45Xi3ckGxqRGQfxVQ U yG1rfnrhv4rhmhbxMxMvGREzH Hh2TRt4RRPmlVasHtElWTE6Bc G5HHW7lEYefU6xpQyxfyvzlI7 w Oyc+V08ipX5qFRA6HWM3ypbfO UFlzvFkNH51YR46C7KgHfjroF FibGU+KWIvzjCdrKchYN8jDzX j b8iqh2JaWRorF5InDPVgRPayQ hr4JDUbZFN3wLQ1fB7aXOVoVT ijf2S7qZT2W9GlduZosz4ka9t s UEJeSUehC89dsKPuh6F0PGBuo KR2FKDfeHatFwGnkB49Rjs+PG GbnTxog9OwYrndv7agd3ejqTn 9 BrAxKLPomjHksLnwTGK7i7MgZ j82S22hFTviUUGsSWEaWDXpHX JveSrefi6guR1qFf9+PGNvbCB 3 wHH0iG1tLWDqKwE8DLneN773Z dEfoLKxVwxxg2xke0bnrXb5Sv CoPXMmrrSmnCctMCX4z5YmOv5 8 E85pUAlvFTIjGDCaMJNlUMCif Doatk8erR3fQm6+XN7yp3xwnj 31uH25sRJ+JWGqBQJ9vWscIEp w LIFivS4zSCwtTzL5PHToVcYgf Z23cBZyPTqfOy3bjLeskVakNT 6hDQQwyjtfw432DeQvc5wzSUK w oCDdFUuiFQY4K04gh4P6ZDQhC BQwRLJ2hXG6qW1ohYwozpxrlX XfbPftlwYblBgwVVybLEqiI58 6 IHRvcDsnPlBhdGllbnQgTmFtZ Vp8I2QpAky9SDClvVufOH1lfF EiTDqvIi8imWetfKmbSW0aDEY p oxief138TyNkc1nsTKDppFJlS XolAHO3B37hz5F4EOKjYMAaSJ R6qRE1nH9loRmmfbuxoRLcbFg g fvXbuYckZJasHPafX781PJHgp GadXzNailLiFTUdwYO8BR08KX 62jHAeu4G8cGK7V5PjZFCcfwp t votqxHQ9TYEpKAKndJ48Mv7pj JhzZa1xFIBzTDX6KVNugGNiD3 QacV9aLrFfPPWrMSUyI6XgpVW t AEnnI272YIkgHwT3KSNytsDzX 7LgSUFanKbvGkC2m3Q2Me4TX6 F8TL80PB88gTCkp0B5bBX2U6K h JKSnpunjkfhasOD4ORTyYWTgz F61Ja2jgIivPe1xABCgQAG8EY RtlTVqR6AczS5dBjSiXXHrGVS w S5WvnERvGBxeD045HZbnFfB3I ENztmGnM0ZkECSgwPeiDqQ6b5 Y8Xl6RGPo0ON42TP71mBVvy0V 5 dSD2I6LdRGRyktqiptposVD6A DTnLCSghB60Mv3zhIkxLj6xAU WdLZC7OVJufWIxR9BurY1eOoF j UJYvFNZnU5QvpXYnXQieH954Y LmnJsN7VYUyfnAnB7GpGJGzyG xoNiO3y4E7Tf6BSUEgGE87FCS 5 mVA1IZ85QK69G7GjPrsqrGUal +PHRhYmxlIHdpZHRoPScxMD HoBcEwwKyoPU2xRn2hGKInKMP v uGzbgPXbAzOfm4vuMLVvZQduC O8hpVvzK6ZknDW5QWBtg6e1Ct 63V07yZ8BgmWJ+DPCukJS7wNN 0 wK5eAiJyZlV1GEofU095TaUuw SWfBlajq8okr7krdUw0JrX3EK BvxmGeqByiRFP7p9MvEh82Z31 s IHdpZHRoPSIxNSUiIHZhbGlnb h2jxT8mTn5+ETCkeJU9aXQ9gX 2eYsKsAeN4XJwnS633HfSnuGS v Dnvih0hxw2bapNf9CoDjRDKca oSnpRryZEK8h1WdFs37P0AodE ogb6FiBti1ct08vHVxa4S1vML 9 K3MlYMBgpqsknUMucUuwSE9rD JUfirmtNESrnS2jBGFbI2r9Fj NgGpP9JRvnF3PyhzI7RBFzkKD g QQpsZNK2S41fd0A5VWCtBUBrJ WJ4tIM2uB4mkIjytmavvZZmyQ lkdhVixFzyPIfhPXkyI462BLJ v kHywKLDpoP5pFAWkoHQhbOmbY V1iGUIucbinCe1FBD3PZMxeQa 0XI1TqNGurqCV+DHMeGJK4xBs l SHnxNMIkgM3wJGYpM7c8GcDzD hO4QQqtW2KuJSZpqmwlYb16pW 8lXpYzBnN2HIhuE9NnpsM0MMF w eJMkIIgtFXI8G23ql9E7BBBdU YHmFAX5eLX5sX4oqZcgkmamyE UosDvkctRlcQlfLJxoNGgyN54 6 AGQpeMzeVcB2GpOiHuM2CTp1P 0DkKdv8KMXhuCahLW8hwFOuXD iePh7wwItsbWzjGX5mEFRbutp w DZEdlU5oTDHmzLPcjHuuFH6tO MNclnxmh496GaEtBCI9GYUbkV ShA8VwlP1bClCcZXHgVNGpP5F l zUBdTXwlV498FAudYoI6FJAtg nVyW4ZqUZWitOsrYpZ4r5J0Zq 43MyBZZWFyczwvdGQ+PHRkIHN 0 wQjwZNtjKRZrvM5tOSLmC7r3H eIzLpY5LVorH0JhOIBgpccwWy 99dQ1bFnHmCrQ4CWhvB3RmwxE 6 TTWwcVZxYGnhVCX0K92xa7P4F DJzGVLgXSU9aSX8tB3nzIfkoj ogbGVmdDsgdmVydGljYWwtYWx p F174BLXulFqwPnOBZSJQPExtx GQ+OAQhPLI2oBysTVzcYYCnxM 1eJPItJ1a9IpQlGpO2OOocV0M h FXXstyeyWc60pU6mMyWnXgO3K SryH6EhypJ9DEAlkBHyRDctIS H7R01ku8B0LFThRESaKLK1fUS 4 wL4nsSkkhfurkWMaiToiuqSfx HvvRRwyCZxmI660QHDblAczLc 4RXD25MN42D6SbQruvyDQrqCV + PHRhYmxlIHdpZHRoPScxMDAlJ jVmeNduNT1qWb2iZKFrQTYmbG hfyEVhYiOgz4jhFGHxRHfyAD4 w dTgtD7JkyUZ5XJUqb4o7Nu77V 52bZ5YerWN+WTKbiJF5nMJ8zA 0uRiEyXuS3XPkeG562OqKduZS v Lefiw9kvk9hdhCz3CeVpFVYca wChkCtyVLH6i5AcWj61M79cBG dpZHRoPSIyMCUiIHZhbGlnbj0 i fG0pVw3+TKPhjUM3lEC5dG5lG yKiRkN0KEqcB493PwFrhFVjEm gpP20gV3AkbHA+PVPiErq6QUQ z aNztNZ9oyHNnUJerFx5lAYB6N nVcJaRdVPiiN5WnQUWbeuxvrp jwzXS2IRAyXTUsoQ93Xu6grLo g Nf9hLVBkHNM9NXKycTZcK6Oph V0kOePgWFZcQGMpJ6EjnHPcFW eqR195YFveSxG9GFMmxeUnS6N s TVEkdZjrRlS3e5G3Lr4PeEzjn YEfXW5rHmYvOEp4H4BqRwe2KM RrdVaaKJ5zzAPxCBxrYm3igKq o iNbnMY9vUHHqqinjt144IhWjh 9xcXTJlqAGzNXpkHQK3Z49fx8 S1NLKhGDIlZPB2cFW2nP9pnJy n bjogbGVmdDsgdmVydGljYWwtY BwgS401ENFwgXqnRhEIHqk5G3 DrYhx3YGPznNxtYI0thTBxSWg u Jk5qpVjqwWtlAB0bHUUvvulkr 088DwYwe3zvOJCwgOKjCEcpKV E3Y52zt9E0BEKpIBMiTBW7aTW 4 dW5rtWlsceimeGEukLuuggEaa GbdEFugFUtaP730EGYabPjfOa 4WXvc3J9XcInl8RKIrzDdoRY2 n zDSkFPgiZv3bzJwgfFoiKA5bU BPfghqqi745NuTnq3ytDEDogR SwFSdlUUK1G86np1L6GIBcSWH w DPL4vCN0vK0klOxmvdxcaXEny XeddhZweMtpGQwgBIwrV420UR RvcDsnPlBheWVyOjwvdGQ+PC9 0 cq94I0MxBximPqj2VVNhILV5w FL6kL4cJHAuBHuwi9T6ySO3Z7 TgraKbkf2iz7zeFPUjPSreJ46 s bGF (more content not included)... [facility] MAGR Intraoperative Recordon 02-06-2021 MAGR Intraoperative Record MAGR Intra-Op Record Summary Primary Physician: Bernadine Diaz DO Finalized Date/Time: 02/06/21 13:59:40 Pt. Name: VAHEDARINKATARINA D.O.B./Sex: 1945 FEMALE Med Rec #: [id number] Physician: Bernadine Diaz DO Financial #: [id number] Pt. Type: D Room/Bed: [facility] Admit/Disch: 02/06/21 08:56:00 - Institution: Case Times [...] Diaz John M MD McMurray CST/Gómez COE CST Role Performed Surgeon - Primary Anesthesiologist of Handle Assembler Record Time In 02/06/21 11:42:00 02/06/21 11:39:00 02/06/21 11:39:00 Time Out 02/06/21 13:35:00 02/06/21 13:54:00 02/06/21 13:54:00 Procedure Arthroplasty Total Arthroplasty Total Arthroplasty Total Hip(Right) Hip(Right) Hip(Right) Last Modified By: Jordyn Young RN 02/06/21 Jordyn Young RN 02/06/21 Jordyn Young RN 02/06/21 13:59:33 13:58:05 13:58:05 Entry 4 Entry 5 Entry 6 Case Attendee Nanci Blake Kristi L CST Scott, Ruth RN Role Performed Handle Assembler Scrub Personnel Housekeeper Caregiver Time In 02/06/21 11:39:00 02/06/21 11:39:00 02/06/21 [...] 02/06/21 12:18:2 (more content not included)... [facility] Primary Physician: Bernadine Diaz DO Finalized Date/Time: 02/06/21 15:03:15 Pt. Name: KATARINA CAMARA /Sex: 1945 FEMALE Med Rec #: [id number] Physician: Bernadine Diaz DO Financial #: [id number] Pt. Type: D [facility] Admit/Disch: 02/06/21 08:56:00 - Institution: PACU Case Times MAGR Entry 1 In PACU I 02/06/21 13:55:00 Discharge from PACU 02/06/21 14:55:00 I Last Modified By: Maria Isabel Lewis RN 02/06/21 15:03:13 Finalized By: Maria Isabel Lewis RN Document Signatures Signed By: Maria Isabel Lewis RN 02/06/21 15:03 [facility] Nutrition Noteon 02-06-2021 Nutrition Note Pt [...] for changes in wts, intake and labs. [facility] Operative Report - Surgeon/P mily 02-06-2021 Operative Report - Surgeon/Physician Preoperative diagnosis: Primary osteoarthritis right hip Postoperative diagnosis: Same Procedure: Right total hip arthroplasty Surgeon: Mynor Diaz D.O. Anesthesia: General Indications for surgery: Progressive loss of function and increasing pain with radiographic findings consistent with advanced osteoarthritis of the right hip Estimated blood loss: 200 Complications: None Findings: Nhyp-di-hkai in the right hip joint Procedure summary: [...] 02/06/2021 15:23 EST] Bernadine Diaz DO Normal [facility] POCT Glucose Levelon 021 Glucose [Mass/Vol] 207 mg/dL High [address] [place] [address] Comment on above: Performed By: #### 4 [id number] #### [facility] (DEFAULT) [address] [place] [address] Glucose [Mass/Vol] 179 mg/dL High [address] [place] [address] Comment on above: Performed By: #### 4 [id number] #### [facility] (DEFAULT) [address] [place] [address] Glucose [Mass/Vol] 112 mg/dL Normal [address] [place] [address] Comment on above: Performed By: #### 4 [id number] #### [facility] (DEFAULT) [address] [place] [address] Patient Handouton 02-06-2021 Patient Handout POST OPERATIVE [...] be done to rule of a DVT. [facility] XR Hip Complete Righton 12-0 XR [...] Zac Jurado MD 02/06/21 4:53 pm Technologist: MS,EG [facility] 2019 Novel Coronavirus (CoVI D-19), ABIODUN LCon 02-03-2021 SARS-CoV-2 (COVID-19) RNA ABIODUN+probe Ql (Unsp spec) Not detected Invalid Interpretation Code Not Detected [facility] Comment on above: Order Comment: [id number] Result Comment: This nucleic acid amplification test was developed and its performance characteristics determined by [employer]. Nucleic acid amplification tests include RT- PCR [...] detected) result in this assay. Performed At: [address] [id number] Andrews Mchugh PhD Ph:[phone] Performed By: #### 6 [id number] #### [facility] (DEFAULT) [address] [place] [address] Progress Note - Nurseon Progress Note - Nurse Spoke with pt santy vogeling arrival time of 0900 and NPO. Verbalized understanding. [Electronically Signed on: 02/03/2021 12:36 EST] Monalisa Miller RN [Verified on: 02/03/2021 12:36 EST] Paul , Monalisa A [facility] Coding Summaryon 01-23-2021 Coding Summary HTMLBase 64 XjgurpexZPa5tDs+PGhlYWQ+P H8HUAFiI26qbHGrjG4PZ3tVTL 8AZXJTMMLGEG0MPH5fzWQ7BSr vM0BbqbAs HztydLYwMC21BRv3RWU1aTsiX YuzxE0xpXXrL0c6QqEqQG81iS 85ARqyIOHwEdD9WgBbgpioyYM y R4lzExThgYLuRyl+PHRhYmxlI HdpZHRoPScxMDAlJyBzdHlsZT 4uZg1zGTEfPWKmnLqxbXSyRcN j x6soBPPbPYswHN0cmQiyP3Lya UD6ZIFdq6h1Yx15kJF+PHRkIH R8qHxyTJfku224HgLvn5wwUDC 3 wSIvQGheVBX2V41tf1K1BQPvP YTiRDO1vDY1oF2owMefbywnD7 XekPWiQhY7TZE7bGIucS4bqCm n lvdgwV1bYbz+Z61KXE5YKDPNH X2MMqm7Y2TbLnhleDT+PC90YW PiKW86qFOktHVng4jncEl4YkJ w OSGiVUB0jKilOSndn7SjQVWpU 97icIZac8C4OETfcOrjmKSlOt OrxJK7mL0vHPapwkpqg3wqixz n Xvcmu9inxc36yZ93M65vEMbdA JWkIXD6HWRiSDAshMgoco8bdE 9wIi8+SIehq2ulc3qllMu0PcM w DPKmpcVxtRqdNLC5u8AdZu07S 2LxnXipc0WnFbv0ud96bLGit4 V1cTK5GLccNMTweR7tKNlvZjO 6 ZATnKhTmnD93pXFjUKxoMi1pf VoktFfzJP3cAXKwinkkDDOugB 8xVKXctWGojDfhQW3uWRIrexn m v052AbLxYDE4PNBpxTTuS9Wsd R3sJyAwIFMlYCVrD8UetFAzXO xnU460BSexMrB7GUOcihScQ0P s GTFpnSfoHxW2v3T0Yn5Gh7Nua xmqZVM3BCcyGUEwAaWtNvEtJk P0I9VwVtu0CRBkeLetDD6iH0P h SCDnugqfebcpxWN3KAKzLOPnh R50lRRyMDukDn8vg4R3n618EP LzXLRivK76Lo7jtWnyMNBdwDO U yT9yrelgu0zhoeviZcRwFCGqS Uv7DZs3BITqsYkgJnIoGLK1Ux E3JQI7uGLucB8wlAliabpysZ5 w Oyc+M31hjU1zJEY3AFR9rgnkJ HQicnBtFQ29BH73M7PlSxoenW FibGU+MJZqenCmpWkuSU9yEsR j k1ltj4JvRTwyT2GeHCTrDUknJ ej2YTIeNSL1xHK2qZ5jQEFpHQ def7B0oHP4F4XfayNzkh3gy5d s DBJeJJgxU33qjQHul3N1WXRlu AH5MQCkmKfcWtOryZ73Qjz+PG RgfLsmq0FvXtvbu0smg1mwmIb 9 DaRgUHDgpaTsqPolIUJ9m2BcP w48P17bHDimFRHzBFUlDLEdYQ BazFnsox8pkT3yCu2+PGNvbCB 3 zYJ7iU9mTCMsGnY2BPtnL659I fXeeLHtLyizl8jhn5xrbSs4Ju FgSULlkqThcIhtMKC9q9QuVz9 8 L46pKGewMEUvDSUfHORlRAPxm Epbyq0dtX5sTy3+LN0zl3krde 57xR07hCM+ZKJaNER9xTbqGCs w KNWaxZ8aIYlkOdJ1PINpZeSph W09xYNtBLloDz3kjIfapJoyCP 3wTGEeosbze347DzDhg0uzHNL w lPSeWHphHHJ0C40zb2M4HBGnO DBnDAV3tHJ3eP6wwWnenrnlfT RbzXkczbKddVoeXYoqVOjkO88 6 IHRvcDsnPlBhdGllbnQgTmFtZ Qt4Y1GqThy0FCTddKguXW4cuL QbISjaQn0coYmveTcwGR3hIBV p qzoxi925HeGch3cdNJBraIKzF BgzOCA4H36oa6B0JOWcWKCpFS C7vHF8uK3ssTeoiqkyyYRkrWe g jxAlhOfjLDivZZphE797YFTtr SdjBkCscpGiUUCoaSI4OK06HP 47zBKzx9M9wAR4Y8SpTUSoscb t lzjvvCO4WUBpKNQsgI18Ls3qd KegIq0oRKYpSKJ2UAVgmEEeQ5 StuT8oIeXnGJUoVZUqC4ClrBU t WSrsQ093FHvgCwY5TFLrayVhZ 5JtWACviQlpYnF5z8F8Mq2QD7 U9EZ67DR61lGAxn9L0lLL3W1X h BBGwyneskqbpuJK8TTMpHJKne E32Ge0biSouYm7kLCAfLHQ1II IwfORuM1CicD0uOkRdJWOlEER w F1GgmTLuVCheB109POkcEnN8H TYpbrTxB9KlNXGmbMvcBpL8o2 E4Tb2MYZh8OK24JU60xVJvw2A 5 kBL9I1VlMUXnlfheoiofwAR1J KQoXTRkvT27Jh6giLyiNs7kDE XcIBW5OMOznBHtM7IyaW3zPmU j FHZbZIJgG8JkkBGyVAonQ097P YopVgO0RFEidcQdP6DhZIJuwA uzYrF6t2J8Qb0TZKTcOM49HPE 5 aZZ2YX93MJ44G0BrYutdyJZuk +PHRhYmxlIHdpZHRoPScxMD HjKyFvqQleVX1hEq8mYGOdMKV v zXlzrVBmJaCtk7eqIYVqJIiiA R2qyNntZ7LkhNH1PEPgz7a4Wb 47D19rS8CmfTS+CQBiqHO0xSF 0 iO2oEtIjJbG4XBgdH865CkVmr TCbAgiwe9rry6qlfUb5FqL0QR FniiZdoGubYQM5w4MwDg19M35 s IHdpZHRoPSIxNSUiIHZhbGlnb a7raF7qKw0+SNOtrDI0pKQ1bD 1kTeErLjF4PPgnU013ByWbyHN v Pgsfx8csa7lqnTx8LkIaZYWjm wJcfPvrQAQ2b4BxQt47R1ZblD mcy2KuEib3nm28wCHxs6X6uMM 9 B9AaBFEcpzmiePRudUqsDL1oW TJqezkuWEYdvN4gTTVpU9o8Ol WnSsN1PUgsZ0FhzyL2EJOehHB g ZZivUGP7P73iw4Z7VSVbVZLfE AN1sHY4rH9dmShrhiyqgUTqsD liuhJytDgsKTarVTifX661RQG v wBbiDEKmzC0vAJDyaVShwOqyS B4oWRDfdqafFp2UQD7RACwgHs 2NZ9AfQPzksFS+SVXeIGM7dYw l LYfzYXCgfB7jVKHyS4z1ReHeT oN3ALkfO7LnAEWwfpokOq57rS 2fBdUuVmN1BVmlV5OhhyJ7MIV w mFHfGUbbEEW5D94mm8A2XSGhS WRtHAH9iII5uR0bkKenaeycvK WegZwwojFajMcuSYfoHLwdG52 6 VWRgoTinIiK1XlPxLiZ7KCa8D 2RmUqk5SRIpcZzcYE9dlSKnXK sxCq1cdRffhVtuST8bEZXiyyf w IOBgqD3mUOWnaYBxmXvvSZ8uV CBbavyhs491ErCoMXU3AZHucU GhC9IobT2vEnEvAAXaELOeV9M l eLSuWGryF613JMvnWuF4XDZvj tZtT2TlQWTfiQyyYaC0b2B6Rx 43MyBZZWFyczwvdGQ+PHRkIHN 0 vVhlLCnsPLSitR0mVVKhP3x3Y tIwXuE9TOidG1LvEJIznmtoJn 45xO9yIeYjIlC4XWrvE5ZqltK 6 HEJvxEYhOSvzRSP8I18us7U2I DEoECJlPVW9oYW7dT1zgOvbhb ogbGVmdDsgdmVydGljYWwtYWx p G994PUDofYmuAuIZHPMQNJful GQ+GVKuZJI5gCjiWYwkESRjsX 5hHFVbH1w4FgAfXfW2DYggD9R h EQVyqoytKc93gK5zDzJiJjK5F ScrS8ZmgdN5HAVpzYCaVLwnCN U8N22wl5X4ZDJbCNViJSK1zDP 4 sW4vuAytcexziDNujClvhoIck DplTRwxXPdhM342FUGymYifAd 7TOV03OC49N7NwJuhqfXCoaNG + PHRhYmxlIHdpZHRoPScxMDAlJ kWsyAqtQR8uJx9gWQQwVYUemC mhzDSgXtKqs3ouUYSkNOuzUU4 w rVviU7EgmXG3YJPdz5x1Hl68M 41gT6SnqWM+VTMdoUB3tOP3aU 0xWaEfZbC9FOnsA643GyJqnQX v Tqlyc5yrk3uigVf0LzBsPBOxg eGthXvhNOC0r1QwXe39Q58zHS dpZHRoPSIyMCUiIHZhbGlnbj0 i hF9aUn5+QNZgbSC3uYT4wM7dL dTzRwS2HOuyP037EbNytOStWg avW85nR8PqcDF+LDGaCjw3BOB z aNllQV6vgDEwJLkrJl9eNZM6F sFcYjVdLAhiL6MqRAPmtryryk lofOQ2WVVvMKAkqL84Zz0vzQo g Wz4vGUEhJRX1PGBtbLGuA9Fwf U1lJkZoTFJxABNvO4JiyLQvZB txB954MUuaTnQ5KVKpyqAhB1M s WJLrrUdbZhI2f5C2Pd9EuCrzs FVaVR9xJvAcXWy2G6WkXvo8OP OluPhoRM3ahTRmHFrbJg0wxZk o yUfvXT0mDRFirxpwr438UkHel 8avMWNtqIQySDzmHDD2D74pv6 E2EKDtXVSiMAK2hQD5eT0egSe n bjogbGVmdDsgdmVydGljYWwtY CvcY091TAJorWdfRdKEDba6F0 JyLxu8HJQypOwrAT9dbIHhZEy u Ev6szYjwgAoeBE3wGHMrifcfi 891YlPxs9uvLZPexJEnZRqkTL Y3H76ej8A5JGNoFIWaKNV2qRV 4 pK0faVixnwzmkRCwtGkwizYib UcqNFegSJpkS611PBGvkKrdPz 4CVyk7I9PwFol3NTEwhOwiCN6 n oWMrMTagTs9edOsyvNcjAU1iE IXlhsmbw444OqBfg3fvUPQrqG MeOOlbKGZ8J28ai3T8WMPrCKC w HLC3wGJ3yH6mpYuprffuaACnh PybhaSvjQjkPDyrFBoeG198CM RvcDsnPlBheWVyOjwvdGQ+PC9 0 sf68C8DoEipyFzy9WLJtGRA5r QP2rF5nAZTmUNgxo0W4fSJ9P5 JguiPaoc9dy7hrBTJcYNnbQ96 s bGF (more content not included)... [facility] Consent Formson 01-23-2021 Consent Forms [id number] [facility] Progress Note - Nurseon 01-03 Progress Note - Nurse Dr Nicholson reviews p t chart and no new orders were received. [Electronically Signed on: 01/23/2021 12:10 EST] Martha Romero RN [Verified on: 01/23/2021 12:10 EST] Martha Romero RN [facility] C MRSA Screenon 01-20-2021 C MRSA Screen Negative [facility] Comment on above: Performed By: #### [id number] #### [facility] (DEFAULT) [address] [place] [address] Provider Orderson 01-20-2021 Provider Orders [id number] [facility] UA Lpvjx4bs 01-19-2021 UA Bacteria None [facility] Comment on above: Order Comment: Urina lysis Microscopic order added on by [employer] Rules system. Performed By: #### [id number] ####[facility] (DEFAULT)[address] [place] [id number] UA RBC 3-5 [facility] Comment on above: Order Comment: Urina lysis Microscopic order added on by [employer] Expert Rules system. Performed By: #### [id number] ####[facility] (DEFAULT)[address] [place] [id number] UA Squam Epi Rare [facility] Comment on above: Order Comment: Urina lysis Microscopic order added on by [employer] system. Performed By: #### 5 [id number] ####[facility] (DEFAULT)[address] [place] [address] UA WBC 0-2 [facility] Comment on above: Order Comment: Urina lysis Microscopic order added on by [employer] Expert Rules system. Performed By: #### 5 [id number] ####[facility] (DEFAULT)[address] [place] [address] UA w Culture if Ind Standard on 01-19-2021 Culture? No [facility] Comment on above: Performed By: #### 5 [id number] ####[facility] (DEFAULT)[address] [place] [address] [facility] Comment on above: Performed By: #### 5 [id number], [id number] ####[facility] (DEFAULT)[address] [address] Color (U) Yellow [facility] Comment on above: Performed By: #### 5 [id number] ####[facility] (DEFAULT)[address] [place] [address] Glucose (U) [Mass/Vol] Negative [facility] Comment on above: Performed By: #### 5 [id number], [id number] ####[facility] (DEFAULT)[address] [place] [address] 45334 Ketones Ql (U) Negative [facility] Comment on above: Performed By: #### 5 [id number], [id number] ####[facility] (DEFAULT)[address] [place] [address] 39702 Micro? Indicated Invalid Interpretation Code [facility] Comment on above: Result Comment: Resu lt created by rule GL_MAGR_ADD_UA_MICRO Performed By: #### 5 [id number], [id number] ####[facility] (DEFAULT)[address] [place] [address] UA Bilirubin Negative Normal [facility] Comment on above: Performed By: #### 5 [id number] ####[facility] (DEFAULT)[address] [place] [address] 09502 UA Blood MODERATE Abnormal NEGATIVE [facility] Comment on above: Performed By: #### 5 [id number], [id number] ####[facility] (DEFAULT)[address] [place] [address] 00943 UA Clarity CLEAR Normal CLEAR [facility] Comment on above: Performed By: #### 5 [id number], [id number] ####[facility] (DEFAULT)[address] [place] [address] 58426 UA Leuk Est Negative Normal NEGATIVE [facility] Comment on above: Performed By: #### 5 [id number], [id number] ####[facility] (DEFAULT)[address] [place] [address] 89212 UA Nitrite Negative Normal NEGATIVE [facility] Comment on above: Performed By: #### 5 [id number] ####[facility] (DEFAULT)[address] [place] [address] 13632 UA pH 6.0 Normal 5-8 [facility] Comment on above: Performed By: #### 5 [id number], [id number] ####[facility] (DEFAULT)[address] [place] [address] 50216 UA Protein Negative Normal NEGATIVE [facility] Comment on above: Performed By: #### 5 [id number], [id number] ####[facility] (DEFAULT)[address] [place] [address] 92597 UA Spec Grav 1.025 Normal 1.001-1.[address] [place] [address] Comment on above: Performed By: #### 5 [id number], [id number] ####[facility] (DEFAULT)[address] [place] [address] UA Urobilinogen <0.2 Normal 0.2-1.0 [facility] Comment on above: Performed By: #### 5 [id number], [id number] ####[facility] (DEFAULT)[address] [place] [address] Urine Source Clean Catch Normal [facility] Comment on above: Performed By: #### 5 [id number], [id number] ####[facility] (DEFAULT)[address] [place] [address] Coding Summaryon 11-08-2020 Coding Summary HTMLBase 64 QgfetacbDWe1oQr+PGhlYWQ+P X7PWOTmS05pyEOggL5RV2oHUX 3TERFAKLDPQH7XRP3fpOP3BCk sO7MoqmPg VcdvhUYmQU66RJf2NAY8hPshJ OklwF9bvCDlO8k1YqXwGC28nX 00INjpRBMtKlE1CsQaxrnoaHC y V7ocTqIwiCUrVct+PHRhYmxlI HdpZHRoPScxMDAlJyBzdHlsZT 2cGw0pBWHwEBKwwDtzaCDhWjW j o9uuMAYnXWbuFO9cuPkcE8Pgi VF0UZVtf0h9Sv72rAZ+PHRkIH E5tBzdQEysw460XxYuf3plCZT 3 lNEnLHysCYE3P20md3S2YXBuJ RApRNY2xYG7oI2usUfyloceY7 HuxIMfTjC8BCS6jAWirM7nsMu n adnpqN2lQgy+B38SHF9FCYBSR K0ICym1H6KhBduhlOP+PC90YW CeJI60yQZzhFZnz9pytSv9MiL w VLEoBUW4tNyeSNkcf8FgEKJwC 16aqOYct8B0JZUdwOmmsTUuEg WnwUP9mV6pVBmdbisnu6kunzg n Datoo5uoda23vX94J19lMHseV EBdYDR2BTHsMGBdhMonnx1upX 9wIi8+ESzzb8lxu2xgqFq9QaS w HRBqaaSenQtkJGT6v2RpGw71Y 0YalQyaf5MiPfq5lh22dXTzu6 V9pCZ7SAbbXIUzoE5qLTveAwP 6 MAMxHgZnjJ66yEXiAEqeGu3zd WbyxLpfCF4nSAFackjfIGIoiM 7oSSYutANhcHewRH0wZEYsqtm m a227PxDgMAI7CWBxjFPdU0Bdt X6dYbRpNIHzJTSrC9QvlYUdAM llS827NHufDpJ1GXPdcuAdD1V s ROTstLewNqO2v0Z7Mr3Sh3Vmc rbjPEL5XRgwKKN1ElE3CqTvSu S1K1WgUvz7SPUonWmvDY8pP7J h IPEmbudpyuttzVE0NKEaRJRyo Z68aXQeNTknJe4zw9V5d559MQ EnVSLfgG39En5nhCsqHUJoiZE U cD5kksaeq4ouxrfuWdXoTVDsY Nq6YKe6FAVaqMxeSnAoDSL6In M3RCE2nNIumR8vsTzbsicngQ2 w Oyc+Z05afA8kTZC8RKB9gshuU MLjznAyIY05LC08D5YwOanqlR FibGU+MRFgmxNaxDxeSS9eOaP j j1djp4HaNUblY0AeOKPeVNkxI vm1QGRjYEO4cOL5qH5xLZBxCO zcd3Q6eAZ9J3CdgzLdyb5yz6u s NWChWEwoZ06gxNWui5S7IFQbp WI6WPTiiKqrYkZohI46Zew+PG WhuHdjs2QbVjkle2osu8wryQg 9 BqUmDUDscmEytGedANC6s6OlO v54V35oBWcePRWiDLOuIAUyPX YksPivjm3jeY3hFm7+PGNvbCB 3 jWE1zX5fFMPyLbH7CFhmD406O jYwhAKkGqfpk4xaa2obkQn5Bg YgSWJpzeVgdKpuCEV6f8IaMy3 8 K85cPUjcGZFgZVGsBOJzMYIdp Qecle9cfM7uNw2+PH3ga8xzra 50iB19uOG+CXVtBSI2oCmeHTq w FWGeiQ0eEIxfTtY2LNMtWpRmd D01qGPpTNmvBb1odHwddNwiFO 2kVCUkbcbyh592JyKpm5crOHU w eKNcEYcbSUD2G86la7F5HPGvE VMqUMZ2rFG3cI7hzKiqbjljdW WmrTqunsEccKtbPNtgWQopJ32 6 IHRvcDsnPlBhdGllbnQgTmFtZ Vh3R8DsRfq5EKEzdKjoZQ8vdA TxMHmlOg5auXoofBxgDS7rYMY p mrsrr110VhBic5cuBMMvtKJkR JfeGUZ5L35ei0P3YVYmOQMjXD Q0nFS1cT5qxIjlmkmwjUEydOm g omScoFtiRPimSMdwL513FIYkt CkuUxEppjHoQVRuxTG4PV92OQ 43wXVys6X2kUD1P0KeQFPpjsp t frawqFB4AQEcRHDeeV62Yk1vr QlvAk6tNCPyLHO8KESkcOBuK9 SkvA0fQmRxXHLiVROmE3RhhFA t LWtvJ950MBixObN7PJJgapPeU 6LfTFUsnQkbPiM2s6Z1Pr7MR7 X7VQ43EM20lUPhm3Q8mLU4H8N h LUIjizthpmqzpFV4SFPgLONzj E26Hk2wkZxjJb8nCOIfKNW6NJ IooGVlA0WdpO7mOaKdOBSgQZJ w T5CbkEYkETnlR405DAnlByL9Q ROmkfOsF0VbGNDxdBbySyA6g9 S1Mv0RSPt4XF80FO53eEUel9O 5 bYZ8U7XqEEYtxaergieerGM3H WMzOWDoyE65Le4emKbuBy1fPC UuOXH2FMDxjANkD6PstT1wIpJ j ELCpJESyW2JumZJhEPyuY738W TqxXnT6LZNhxzLoL9RvFHRojI rxGgM6l7P3Ua6TLOBlXE53WCY 5 aGR4TI05XU83H2XfZmulrENny +PHRhYmxlIHdpZHRoPScxMD SkNcVokQivVB4qAh3rRPCwNCL v yEjxaNNaIxCdu2wjELRhFCscU H2anUpsN3CuuQG4YXXfj1c1Hw 36F40mF2GitMP+FFFejRI3wAP 0 eA8jTdUxZhD2CVqoD367WhBxe HDuQrtkn8fsu7pikYl5ZbL9LI OnczKbrMnhEEO6q5NdHp36V43 s IHdpZHRoPSIxNSUiIHZhbGlnb w4yfD7lTy5+FIGjtOD3qYC9xX 0yVvGhXdC1DXslM297UsUwoMN v Exdat1chf1rfcCk3DhQgGSTly cIthTkuAIA5p7FqOm10H3AzeE mfy7RpWak0na60gJSni0W9iIM 9 S8DkAVQmkzlqvYUawWliXD0eB KQgddugZCZdfX9nMAQkY8s6Fo FzLsI5TSliX4NlxgA4SHXgqNN g ZTtwNEG2I73xa4Y7ROAxKBTjE JE5cOV6gR9soGkwielmhMWbbB tmxvVjdAoaLSxkPPjgJ154IVV v mOwbLVPykJ4eJMYtwJFxbGnkB R4pRLRnmzntSk2TBM2ADZwdCs 1ID3VhVVlwbDX+RONdVYX1kKx l FFqePDHomR6lOVAlT7s5ClYlX gI5RTvhA6IsEZJileuyXq48mT 9nBdHcSmT7SScfU6XefbS8NZJ w wVMkRKrfUIQ9W58kv6C0ZMSgY TOwLGR3oSP8iP2auPujslffzV DodMbpthIzeNssFNnqREyfG14 6 SZOsnMlxOcX1OwZdLfQ9LMx1Z 7TsPxh4QEOxeIdfDH2qrPCdYT gwIw6kuWylsQklRH0vRMChthz w EWRgfT2qEYMjtKQsuUksRH6gZ WZcbfpbr803ThRbRCW4WFQfmJ DqQ0KhgL7aRwMtWCDqWVGqJ6P l rHTeETqtJ314VPbwHvP4EMDzu jKdB4PnYJNrlTgsFvZ6e9V0Xa 43MyBZZWFyczwvdGQ+PHRkIHN 0 fHprJMzqLJOweP5jFWNhI7x4K qAwGoV0JSxdD4FvYDAsdvwzWs 33qY7uPuTrUxJ6NWyeU8QxseS 6 SQMupFYlNCyiFXF2H81zb5B4K WGgNWCbDMJ9lTV3bA4amLfkto ogbGVmdDsgdmVydGljYWwtYWx p B278MSEkpGubLyFWSFXVBKrqd GQ+UFNxXCS6zQrtNBdgONRabV 4vCAEwP2t4OyNuXyP6ROmbB2A h VYVadotuAk02mN9sTwYtMiM8V LhrE1SlenR1HZXezQPmMNuoDB C9Z31nm6U8PMAmXPPhQQM8jBP 4 iW7yzTujyatecXXdlIcmboIjj ZceAAgoJZqnZ686DWLanEcwIe 2EDJ10GA45G9PuUiqyzFCxjUP + PHRhYmxlIHdpZHRoPScxMDAlJ jBpuCwiOD3yKb8bKEZrRVGqrG bfyAIqRbSrk6yrUYSoEFjlVG9 w oGylH8JooGP7QWIyd4j7Xf14P 31tC5MyzWS+JBJfkAH4bZM3eF 6jXqFdYzN4ENecG749DxOcbUL v Hwpeb3yqy7xjnNg6EeVbKWXue iThrVcoUVD8k0BnPf90N42eEI dpZHRoPSIyMCUiIHZhbGlnbj0 i cW4bOi6+JDCjsBM5wLU9vT2bT kMxApZ2TSpfM221JiKxhLQeYs mzG39cN1HpbYY+PMPnGyt1AXH z tRipPY1gqXAbUXpjNu1jZKO2P aIcYvNbGFbiR6WyFWInlkaspz ofyTG3BMOuOOUfyJ78Rs3nbXp g Ht7gYFMiZIV8BKImvMVrH5Vwr A2lJaEuCNHgISVlN9SwaVChLF kwS726CIszZtE9JVIoblRrS0U s XUKqyXslImY8y2V7Hl0QmGrmp PRiWX8wTpKgRCw8L1QbXxz7WB NfaGjyQV4lnGIwIQbtPo0ptRy o oTncJE3hJQGyuwxvw212QiYoa 0siQAPfiPVmYJirGHX6Q54lr8 N7VXThNLRxONO5oAA6wN9nwFk n bjogbGVmdDsgdmVydGljYWwtY NahH048XAUqwYihLmXHRef5I2 EcLvf6CMFpvWaqZB8pgHWlKXn u Rc0aqFuwtBbaQL4dONNrnlfye 219EmMho6lyREMtkMNyVGiwWN H7D21nq3A4NNGxQGArRUG1sSI 4 yV9cnVoxcizguCZhzEnqzgLdn SdtQVyfTLahI690SQGyzTcaPu 5JKhx8R5LwEar3RTUctGimAI3 n xLIeJBbvVz1kpQgwnLakPA9eD SEokvipt848CgHvd9eiQNFvvG DdAWueNGW3K80ps4K4BDSyYZC w TTU2dGO9tS5noFrzyztveVBnf AxnjlGywBsvXZacNLruN474OZ RvcDsnPlBheWVyOjwvdGQ+PC9 0 zh38V2ZaBkuoAod6QCDhFEE7y LO4cW3eADEuJQjlh7Q5uZX6G3 NyixKchh0ee3viWWFoEThwR05 s bGF (more content not included)... [facility] Consent Formson 11-08-2020 Consent Forms [id number] FF [facility] Progress Note - Nurseon Progress Note - Nurse PAT review for jennifer parra on 11-28-2020 done per anesthesiologist, Dr. Arreguin- no additional orders received. [Electronically Signed on: 11/08/2020 14:35 EDT] Kristina Schulte RN [Verified on: 11/08/2020 14:35 EDT] Kristina Schulte RN [facility] Provider Orderson 11-08-2020 Provider Orders [id number]#[id number] FF Normal [facility] C Urineon 11-06-2020 C Urine Urine Culture ordere d as a result of parameters set on specific urine dip and urine microsopic results. <10,000 cfu/ml Normal [facility] Comment on above: Performed By: #### 4 [id number] #### [facility] (DEFAULT) [address] [place] [address] .Auto Diff 1on 11-05-2020 Auto Emmons % 11 % Normal 1-12 [facility] Comment on above: Performed By: #### 4 [id number] #### [facility] (DEFAULT) [address] [place] [address] Baso Abs# 0.0 x10 Normal 0.0-0.2 [facility] Comment on above: Performed By: #### 4 [id number] #### [facility] (DEFAULT) [address] [place] [address] Basophils/100 WBC (Bld) 0.5 % Normal 0.2-2.0 [facility] Comment on above: Performed By: #### 4 [id number] #### [facility] (DEFAULT) [address] [place] [address] Eos Abs# 0.2 x10 Normal 0.0-0.4 [facility] Comment on above: Performed By: #### 4 [id number] #### [facility] (DEFAULT) [address] [place] [address] Eosinophils/100 WBC (Bld) 4.0 % Normal 0.9-4.0 [facility] Comment on above: Performed By: #### 4 [id number] #### [facility] (DEFAULT) [address] [place] [address] Lymph Abs# 1.4 x10 Normal 1.3-2.9 [facility] Comment on above: Performed By: #### 4 [id number] #### [facility] (DEFAULT) [address] [place] [address] Lymphocytes/100 WBC (Bld) 24 % Normal 14-48 [facility] Comment on above: Performed By: #### 4 [id number] #### [facility] (DEFAULT) [address] [place] [address] Emmons Abs# 0.6 x10 Normal 0.0-0.8 [facility] Comment on above: Performed By: #### 4 [id number] #### [facility] (DEFAULT) [address] [place] [address] Neut Abs# 3.3 x10 Normal 1.5-9.2 [facility] Comment on above: Performed By: #### 4 [id number] #### [facility] (DEFAULT) [address] [place] [address] Neutrophils/100 WBC (Bld) 60 % Normal 44-88 [facility] Comment on above: Performed By: #### 4 [id number] #### [facility] (DEFAULT) [address] [place] [address] C MRSA Screenon 11-05-2020 C MRSA Screen Negative Normal [facility] Comment on above: Performed By: #### 1 [id number] ####[facility] (DEFAULT)[address] [place] [address] 99934 CBC w/ Auto Diffon Erythrocyte distribution width (RBC) [Ratio] 13.7 % Normal 11.5-15.0 [facility] Comment on above: Performed By: #### 4 [id number] #### [facility] (DEFAULT) [address] [place] [address] 40924 Hematocrit (Bld) [Volume fraction] 45.4 % High 33.7-40.4 [facility] Comment on above: Performed By: #### 4 [id number] #### [facility] (DEFAULT) [address] [place] [address] 14666 Hemoglobin (Bld) [Mass/Vol] 14.4 g/dL Normal 11.3-15.9 [facility] Comment on above: Performed By: #### 4 [id number] #### [facility] (DEFAULT) [address] [place] [address] Instr WBC 5.5 x10 Invalid Interpretation Code [facility] Comment on above: Performed By: #### 4 [id number] #### [facility] (DEFAULT) [address] [place] [address] Man Diff? Auto Normal [facility] Comment on above: Performed By: #### 4 [id number] #### [facility] (DEFAULT) [address] [place] [address] 42414 MCH (RBC) [Entitic mass] 29 pg Normal 24-34 [facility] Comment on above: Performed By: #### 4 [id number] #### [facility] (DEFAULT) [address] [place] [address] MCHC (RBC) [Mass/Vol] 32 g/dL Normal 26-37 [facility] Comment on above: Performed By: #### 4 [id number] #### [facility] (DEFAULT) [address] [place] [address] MCV (RBC) [Entitic vol] 92 fL Normal 81-100 [facility] Comment on above: Performed By: #### 4 [id number] #### [facility] (DEFAULT) [address] [place] [address] Platelet 261 x10 Normal 138-427 [facility] Comment on above: Performed By: #### 4 [id number] #### [facility] (DEFAULT) [address] [place] [address] Platelet mean volume (Bld) [Entitic vol] 10.5 fL High 6.3-10.2 [facility] Comment on above: Performed By: #### 4 [id number] #### [facility] (DEFAULT) [address] [place] [address] 12700 RBC 4.91 x10 Normal 3.70-5.30 [facility] Comment on above: Performed By: #### 4 [id number] #### [facility] (DEFAULT) [address] [place] [address] WBC 5.5 x10 Normal 3.5-10.5 [facility] Comment on above: Performed By: #### 4 [id number] #### [facility] (DEFAULT) [address] [place] [address] BMP Standardon 11-04-2020 eGFR Non AA >60 Invalid Interpretation Code [facility] Comment on above: Performed By: #### 4 [id number] #### [facility] (DEFAULT) [address] [place] [address] 37348 eGFR AA >60 Invalid Interpretation Code [facility] Comment on above: Result Comment: Supervisor Hot Dip Tinning pepper Kidney disease could be indicated at eGFRs of less than 60 ml/min/1.73m2. Kidney Failure is indicated at less than 15 ml/min/1.73m2 Performed By: #### 4 [id number] #### [facility] (DEFAULT) [address] [place] [address] 57820 Anion gap [Moles/Vol] 15.0 mmol/L Normal 5.0-19.0 [facility] Comment on above: Performed By: #### 4 [id number] #### [facility] (DEFAULT) [address] [place] [address] 29138 Calcium [Mass/Vol] 9.0 mg/dL Normal 8.9-10.3 [facility] Comment on above: Performed By: #### 4 [id number] #### [facility] (DEFAULT) [address] [place] [address] 21877 Chloride [Moles/Vol] 98 mmol/L Low 101-111 [facility] Comment on above: Performed By: #### 4 [id number] #### [facility] (DEFAULT) [address] [place] [address] 07624 CO2 [Moles/Vol] 28 mmol/L Normal 21-32 [facility] Comment on above: Performed By: #### 4 [id number] #### [facility] (DEFAULT) [address] [place] [address] 14783 Creatinine [Mass/Vol] 0.86 mg/dL Normal 0.60-1.30 [facility] Comment on above: Performed By: #### 4 [id number] #### [facility] (DEFAULT) [address] [place] [address] 95443 Glucose [Mass/Vol] 96.0 mg/dL Normal 74.0-118.0 [facility] Comment on above: Performed By: #### 4 [id number] #### [facility] (DEFAULT) [address] [place] [address] 28795 Osmolality 274 mOsm/L Invalid Interpretation Code [facility] Comment on above: Performed By: #### 4 [id number] #### [facility] (DEFAULT) [address] [place] [address] 22609 Potassium [Moles/Vol] 4.1 mmol/L Normal 3.6-5.1 [facility] Comment on above: Performed By: #### 4 [id number] #### [facility] (DEFAULT) [address] [place] [address] 34571 Sodium [Moles/Vol] 137.0 mmol/L Normal 136.0-144 . 0 [facility] Comment on above: Performed By: #### 4 [id number] #### [facility] (DEFAULT) [address] [place] [address] 19284 Urea nitrogen [Mass/Vol] 15 mg/dL Normal 8- [facility] Comment on above: Performed By: #### 4 [id number] #### [facility] (DEFAULT) [address] [place] [address] 55984 Urea nitrogen/Creatinine [Mass ratio] 17.0 mg/mg High 4.6-16.2 [facility] Comment on above: Performed By: #### 4 [id number] #### [facility] (DEFAULT) [address] [place] [address] 05189 UA [id number] 11-04-2020 UA Bacteria Trace Normal [facility] Comment on above: Order Comment: Urina lysis Microscopic order added on by [employer] Expert Rules system. Performed By: #### 4 [id number] #### [facility] (DEFAULT) [address] [place] [address] 93180 UA RBC >100 Normal [facility] Comment on above: Order Comment: Urina lysis Microscopic order added on by [employer] Expert [employer] system. Performed By: #### 4 [id number] #### [facility] (DEFAULT) [address] [place] [address] 55026 UA Squam Epi Rare Normal [facility] Comment on above: Order Comment: Urina lysis Microscopic order added on by [employer] Expert Rules system. Performed By: #### 4 [id number] #### [facility] (DEFAULT) [address] [place] [address] 90964 UA WBC 50-60 [facility] Comment on above: Order Comment: Urina lysis Microscopic order added on by [employer] system. Performed By: #### 4 [id number] #### [facility] (DEFAULT) [address] [place] [address] 21811 UA w Culture if Ind Standard on 11-04-2020 Breakpoint UA [facility] Comment on above: Performed By: #### 4 [id number] #### [facility] (DEFAULT) [address] [place] [address] 44919 Color (U) Yellow [facility] Comment on above: Performed By: #### 4 [id number] #### [facility] (DEFAULT) [address] [place] [address] 02324 Culture? Indicated Invalid Interpretation Code [facility] Comment on above: Result Comment: Resu lt created by rule GL_MAGR_ADD_UA_CULT Result created by rule GL_MAGR_ADD_UA_CULT Result created by rule GL_MAGR_ADD_UA_CULT1 Result created by rule GL_MAGR_ADD_UA_CULT Performed By: #### 4 [id number] #### [facility] (DEFAULT) [address] [place] [address] 97729 Glucose (U) [Mass/Vol] Negative [facility] Comment on above: Performed By: #### 4 [id number] #### [facility] (DEFAULT) [address] [place] [address] Ketones Ql (U) Negative [facility] Comment on above: Performed By: #### 4 [id number] #### [facility] (DEFAULT) [address] [place] [address] 88413 Micro? Indicated Normal [facility] Comment on above: Result Comment: Resu lt created by rule GL_MAGR_ADD_UA_MICRO Performed By: #### 4 [id number] #### [facility] (DEFAULT) [address] [place] [address] 48224 UA Bilirubin Negative [facility] Comment on above: Performed By: #### 4 [id number] #### [facility] (DEFAULT) [address] [place] [address] 79477 UA Blood LARGE Abnormal NEGATIVE [facility] Comment on above: Performed By: #### 4 [id number] #### [facility] (DEFAULT) [address] [place] [address] 89385 UA Clarity CLOUDY Abnormal CLEAR [facility] Comment on above: Performed By: #### 4 [id number] #### [facility] (DEFAULT) [address] [place] [address] 74235 UA Leuk Est LARGE Abnormal NEGATIVE [facility] Comment on above: Performed By: #### 4 [id number] #### [facility] (DEFAULT) [address] [place] [address] 06294 UA Nitrite Negative Normal [facility] Comment on above: Performed By: #### [id number] #### [facility] (DEFAULT) [address] [place] [id number] UA pH 7.0 Normal 5-8 [facility] Comment on above: Performed By: #### [id number] #### [facility] (DEFAULT) [address] [place] [address] UA Protein Negative Normal NEGATIVE [facility] Comment on above: Performed By: #### [id number] #### [facility] (DEFAULT) [address] [place] [id number] UA Spec Grav 1.015 Normal 1.001-1.[address] [place] [address] Comment on above: Performed By: #### [id number] #### [facility] (DEFAULT) [address] [place] [address] [id number] UA Urobilinogen 0.2 mg/dL Normal 0.2-1.0 [facility] Comment on above: Performed By: #### [id number] #### [facility] (DEFAULT) [address] [place] [address]341 Urine Source Clean Catch Normal [facility] Comment on above: Performed By: #### [id number] #### [facility] (DEFAULT) [address] [place] [address]998 Vital Signs Date Time Vital Sign Value Performing Clinician Facility 05-14-2024 14:16-0400 Body height 152.4 cm Jeremiah Jennifer DO Work Phone: [facility] 05-14-2024 14:16-0400 Body mass index (BMI) [Ratio] 39 kg/m2 Jeremaih Jennifer DO Work Phone: [facility] 05-14-2024 14:16-0400 Body temperature 97.4 [degF] Jeremiah Jennifer DO Work Phone: [facility] 05-14-2024 14:16-0400 Body weight 90.74 kg Jeremiah Jennifer DO Work Phone: [facility] 05-14-2024 14:16-0400 Diastolic blood pressure 80 mm[Hg] Jeremiah Jennifer DO Work Phone: [facility] 05-14-2024 14:16-0400 Heart rate 87 /min Jeremiah Jennifer DO Work Phone: [facility] 05-14-2024 14:16-0400 SaO2% (BldA) [Mass fraction] 92 % Jeremiah Jennifer DO Work Phone: [facility] 05-14-2024 14:16-0400 Systolic blood pressure 110 mm[Hg] Jeremiah Jennifer DO Work Phone: [facility] 04-23-2024 12:11-0500 Body temperature 98.49 [degF] Duglas Dumas DPM Work Phone: [facility] 04-23-2024 12:11-0500 Diastolic blood pressure 70 mm[Hg] Duglas Dumas DPM Work Phone: [facility] 04-23-2024 12:11-0500 Heart rate 74 /min Duglas Dumas DPM Work Phone: [facility] 04-23-2024 12:11-0500 Respiratory rate 18 /min Duglas Dumas DPM Work Phone: [facility] 04-23-2024 12:11-0500 SaO2% (BldA) [Mass fraction] 98 % Duglas Dumas DPM Work Phone: [facility] 04-23-2024 12:11-0500 Systolic blood pressure 140 mm[Hg] Duglas Dumas DPM Work Phone: [facility] 04-18-2024 12:00-0500 Body temperature 97.8 [degF] Hilario Mast DO Work Phone: [facility] 04-18-2024 12:00-0500 Diastolic blood pressure 73 mm[Hg] Hilario Mast DO Work Phone: [facility] 04-18-2024 12:00-0500 Heart rate 80 /min Hilario Mast DO Work Phone: [facility] 04-18-2024 12:00-0500 Respiratory rate 18 /min Hilario Mast DO Work Phone: [facility] 04-18-2024 12:00-0500 SaO2% (BldA) [Mass fraction] 97 % Hilario Mast DO Work Phone: [facility] 04-18-2024 12:00-0500 Systolic blood pressure 119 mm[Hg] Hilario Mast DO Work Phone: [facility] 04-18-2024 06:40-0500 Body weight 95.8 kg Hilario Mast DO Work Phone: [facility] 04-15-2024 15:24-0500 Body height 165.1 cm Hilario Mast DO Work Phone: [facility] 04-14-2024 15:12-0500 Body height 12.7 cm Hilario Mast DO Work Phone: [facility] 04-14-2024 15:12-0500 Body temperature 98 [degF] Hilario Mast DO Work Phone: [facility] 04-14-2024 15:12-0500 Body weight 92 kg Hilario Mast DO Work Phone: [facility] 04-14-2024 15:12-0500 Diastolic blood pressure 69 mm[Hg] Hilario Mast DO Work Phone: [facility] 04-14-2024 15:12-0500 Heart rate 85 /min Hilario Mast DO Work Phone: [facility] 04-14-2024 15:12-0500 Respiratory rate 20 /min Hilario Mast DO Work Phone: [facility] 04-14-2024 15:12-0500 SaO2% (BldA) [Mass fraction] 93 % Hilario Mast DO Work Phone: [facility] 04-14-2024 15:12-0500 Systolic blood pressure 111 mm[Hg] Hilario Mast DO Work Phone: [facility] 03-06-2024 11:45-0500 Body temperature 97.59 [degF] Frandy Patel MD [facility] [employer] 03-06-2024 11:45-0500 Diastolic blood pressure 77 mm[Hg] Frandy Patel MD [facility] [employer] 03-06-2024 11:45-0500 Heart rate 95 /min Frandy Patel MD [facility] [employer] 03-06-2024 11:45-0500 Respiratory rate 24 /min Frandy Patel MD [facility] [employer] 03-06-2024 11:45-0500 SaO2% (BldA) [Mass fraction] 97 % Frandy Patel MD [facility] [employer] 03-06-2024 11:45-0500 Systolic blood pressure 127 mm[Hg] Frandy Patel MD [facility] [employer] 03-06-2024 06:00-0500 Body mass index (BMI) [Ratio] 41.97 kg/m2 Frandy Patel MD [facility] [employer] 03-06-2024 06:00-0500 Body weight 99.1 kg Frandy Patel MD [facility] [employer] 03-05-2024 18:45-0500 Body height 153.7 cm [facility] 03-03-2024 15:19-0500 Body temperature 37.0 [facility] 12-09-2023 13:07-0400 Body height 154.94 cm DO Hilario Mast Work Phone: [facility] 12-09-2023 13:07-0400 Body mass index (BMI) [Ratio] 39.9 kg/m2 DO Hilario Mast Work Phone: [facility] 12-09-2023 13:07-0400 Body temperature 96 [degF] DO Hialrio Mast Work Phone: [facility] 12-09-2023 13:07-0400 Body weight 95.84 kg DO Hilario Mast Work Phone: [facility] 12-09-2023 13:07-0400 Diastolic blood pressure 64 mm[Hg] DO Hilario Mast Work Phone: [facility] 12-09-2023 13:07-0400 Heart rate 95 /min DO Hilario Mast Work Phone: [facility] 12-09-2023 13:07-0400 SaO2% (BldA) [Mass fraction] 96 % DO Hilario Mast Work Phone: [facility] 12-09-2023 13:07-0400 Systolic blood pressure 104 mm[Hg] DO Hilario Mast Work Phone: [facility] 12-02-2023 08:54-0400 Body height 154.94 cm DO Hilario Mast Work Phone: [facility] 12-02-2023 08:54-0400 Body mass index (BMI) [Ratio] 39.7 kg/m2 DO Hilario Mast Work Phone: [facility] 12-02-2023 08:54-0400 Body temperature 96.4 [degF] DO Hilario Mast Work Phone: [facility] 12-02-2023 08:54-0400 Body weight 95.48 kg DO Hilario Mast Work Phone: [facility] 12-02-2023 08:54-0400 Diastolic blood pressure 62 mm[Hg] DO Hilario Mast Work Phone: [facility] 12-02-2023 08:54-0400 Heart rate 95 /min DO Hilario Mast Work Phone: [facility] 12-02-2023 08:54-0400 Respiratory rate 16 /min DO Hilario Mast Work Phone: [facility] 12-02-2023 08:54-0400 SaO2% (BldA) [Mass fraction] 95 % DO Hilario Mast Work Phone: [facility] 12-02-2023 08:54-0400 Systolic blood pressure 94 mm[Hg] DO Hilario Mast Work Phone: [facility] 11-08-2023 09:06-0400 Body height 154.94 cm [facility] 11-08-2023 09:06-0400 Body mass index (BMI) [Ratio] 39.6 kg/m2 [facility] 11-08-2023 09:06-0400 Body temperature 96.5 [degF] [facility] 11-08-2023 09:06-0400 Body weight 95.25 kg [facility] 11-08-2023 09:06-0400 Diastolic blood pressure 72 mm[Hg] [facility] 11-08-2023 09:06-0400 Heart rate 78 /min [facility] 11-08-2023 09:06-0400 SaO2% (BldA) [Mass fraction] 97 % [facility] 11-08-2023 09:06-0400 Systolic blood pressure 114 mm[Hg] [facility] 09-09-2023 14:00-0400 Body height 154.94 cm DO Hilario Mast Work Phone: [facility] 09-09-2023 14:00-0400 Body mass index (BMI) [Ratio] 39.6 kg/m2 DO Hilario Mast Work Phone: [facility] 09-09-2023 14:00-0400 Body temperature 96.1 [degF] DO Hilario Mast Work Phone: [facility] 09-09-2023 14:00-0400 Body weight 95.25 kg DO Hilario Mast Work Phone: [facility] 09-09-2023 14:00-0400 Diastolic blood pressure 74 mm[Hg] DO Hilario Mast Work Phone: [facility] 09-09-2023 14:00-0400 Heart rate 98 /min DO Hilario Mast Work Phone: [facility] 09-09-2023 14:00-0400 SaO2% (BldA) [Mass fraction] 95 % DO Hilario Mast Work Phone: [facility] 09-09-2023 14:00-0400 Systolic blood pressure 110 mm[Hg] DO Hilario Mast Work Phone: [facility] 09-02-2023 15:50-0400 Body height 154.94 cm DO Hilario Mast Work Phone: [facility] 09-02-2023 15:50-0400 Body mass index (BMI) [Ratio] 39.5 kg/m2 DO Hilario Mast Work Phone: [facility] 09-02-2023 15:50-0400 Body temperature 97.7 [degF] DO Hilario Mast Work Phone: [facility] 09-02-2023 15:50-0400 Body weight 94.85 kg DO Hilario Mast Work Phone: [facility] 09-02-2023 15:50-0400 Diastolic blood pressure 68 mm[Hg] DO Hilario Mast Work Phone: [facility] 09-02-2023 15:50-0400 Heart rate 89 /min DO Hilario Mast Work Phone: [facility] 09-02-2023 15:50-0400 SaO2% (BldA) [Mass fraction] 97 % DO Hilario Mast Work Phone: [facility] 09-02-2023 15:50-0400 Systolic blood pressure 128 mm[Hg] DO Hilario Mast Work Phone: [facility] 08-08-2023 09:18-0400 Body height 154.9 cm Nani Calloway MD Work Phone: [facility] 08-08-2023 09:18-0400 Body mass index (BMI) [Ratio] 39.87 kg/m2 Nani Calloway MD Work Phone: [facility] 08-08-2023 09:18-0400 Body weight 95.71 kg Nani Calloway MD Work Phone: [facility] 08-08-2023 09:18-0400 Diastolic blood pressure 58 mm[Hg] Nani Calloway MD Work Phone: [facility] 08-08-2023 09:18-0400 Heart rate 72 /min Nani Calloway MD Work Phone: [facility] 08-08-2023 09:18-0400 Systolic blood pressure 102 mm[Hg] Nani Calloway MD Work Phone: [facility] 05-13-2023 12:58-0400 Body height 155 cm Ruth Ann Gutierres PA-C Work Phone: [facility] 05-13-2023 12:58-0400 Body temperature 97.7 [degF] Ruth Ann Gutierres PA-C Work Phone: [facility] 05-13-2023 12:58-0400 Body weight 98.3 kg Ruth Ann Marlin PA-C Work Phone: [facility] 05-13-2023 12:58-0400 Diastolic blood pressure 62 mm[Hg] Ruth Ann Marlin PA-C Work Phone: [facility] 05-13-2023 12:58-0400 Heart rate 109 /min Ruth Ann Marlin PA-C Work Phone: [facility] 05-13-2023 12:58-0400 Respiratory rate 18 /min Ruth Ann Marlin PA-C Work Phone: [facility] 05-13-2023 12:58-0400 SaO2% (BldA) [Mass fraction] 93 % Ruth Ann Marlin PA-C Work Phone: [facility] 05-13-2023 12:58-0400 Systolic blood pressure 141 mm[Hg] Ruth Ann Marlin PA-C Work Phone: [facility] 05-06-2023 14:11-0500 Body height 154.94 cm MD Nicole Vargas Work Phone: [facility] 05-06-2023 14:11-0500 Body mass index (BMI) [Ratio] 41.2 kg/m2 MD Nicole Vargas Work Phone: [facility] 05-06-2023 14:11-0500 Body temperature 97.5 [degF] MD Nicole Vargas Work Phone: [facility] 05-06-2023 14:11-0500 Body weight 98.93 kg MD Nicole Vargas Work Phone: [facility] 05-06-2023 14:11-0500 Diastolic blood pressure 68 mm[Hg] MD Nicole Vargas Work Phone: [facility] 05-06-2023 14:11-0500 Heart rate 99 /min MD Nicole Vargas Work Phone: [facility] 05-06-2023 14:11-0500 SaO2% (BldA) [Mass fraction] 97 % MD Nicole Vargas Work Phone: [facility] 05-06-2023 14:11-0500 Systolic blood pressure 132 mm[Hg] MD Nicole Vargas Work Phone: [facility] 04-02-2023 09:16-0500 Body height 152.4 cm Nani Calloway MD Work Phone: [facility] 04-02-2023 09:16-0500 Body mass index (BMI) [Ratio] 42.97 kg/m2 Nani Calloway MD Work Phone: [facility] 04-02-2023 09:16-0500 Body weight 99.79 kg Nani Calloway MD Work Phone: [facility] 04-02-2023 09:16-0500 Diastolic blood pressure 94 mm[Hg] Nani Calloway MD Work Phone: [facility] 04-02-2023 09:16-0500 Heart rate 84 /min Nani Calloway MD Work Phone: [facility] 04-02-2023 09:16-0500 Systolic blood pressure 144 mm[Hg] Nani Calloway MD Work Phone: [facility] 02-19-2023 14:45-0500 Body height 154.94 cm Hilario Mast Other [facility] 02-19-2023 14:45-0500 Body mass index (BMI) [Ratio] 41.36 kg/m2 Hilario Mast Other [employer] Other 02-19-2023 14:45-0500 Body temperature 97.3 [degF] Hilario Mast Other [employer] [facility] [employer] Other 02-19-2023 14:45-0500 Body weight 99.29 kg Hilario Mast Other [facility] 02-19-2023 14:45-0500 Diastolic blood pressure 72 mm[Hg] Hilario Mast Other [facility] 02-19-2023 14:45-0500 Respiratory rate 18 /min Hilario Mast Other [facility] [employer] Other 02-19-2023 14:45-0500 SaO2% (BldA) [Mass fraction] 95 % Hilario Mast Other [facility] [employer] Other 02-19-2023 14:45-0500 Systolic blood pressure 110 mm[Hg] Hilario Mast Other [facility] 01-22-2023 11:00-0500 Body height 154.9 cm Jacqueline Campos 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 ASSESSOR-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 Work Phone: [facility] 01-22-2023 11:00-0500 Body mass index (BMI) [Ratio] 42.89 kg/m2 Jacqueline Campos 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 ASSESSOR-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 Work Phone: [facility] 01-22-2023 11:00-0500 Body weight 102.97 kg Jacqueline Campos 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 ASSESSOR-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 Work Phone: [facility] 01-22-2023 11:00-0500 Diastolic blood pressure 80 mm[Hg] Jacqueline Campos 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 ASSESSOR-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 Work Phone: [facility] 01-22-2023 11:00-0500 Heart rate 76 /min Jacqueline Campos 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 ASSESSOR-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 Work Phone: [facility] 01-22-2023 11:00-0500 Systolic blood pressure 120 mm[Hg] Jacqueline Campos 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 ASSESSOR-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 Work Phone: [facility] 01-18-2023 12:02-0500 Body temperature 98.3 [degF] MD Nicole Vargas Work Phone: [facility] 01-18-2023 12:02-0500 Heart rate 75 /min MD Nicole Vargas Work Phone: [facility] 01-18-2023 12:02-0500 Respiratory rate 18 /min MD Nicole Vargas Work Phone: [facility] 01-18-2023 12:02-0500 SaO2% (BldA) [Mass fraction] 95 % MD Nicole Vargas Work Phone: [facility] 01-18-2023 07:26-0500 Diastolic blood pressure 71 mm[Hg] MD Nicole Vargas Work Phone: [facility] 01-18-2023 07:26-0500 Systolic blood pressure 141 mm[Hg] MD Nicole Vargas Work Phone: [facility] 01-18-2023 05:31-0500 Body weight 104.2 kg MD Nicole Vargas Work Phone: [facility] 01-17-2023 12:43-0500 Body height 154.94 cm MD Nicole Vargas Work Phone: [facility] 12-25-2022 10:12-0400 Body height 154.9 cm Nani Calloway MD Work Phone: [facility] 12-25-2022 10:12-0400 Body mass index (BMI) [Ratio] 42.14 kg/m2 Nani Calloway MD Work Phone: [facility] 12-25-2022 10:12-0400 Body weight 101.15 kg Nani Calloway MD Work Phone: [facility] 12-25-2022 10:12-0400 Diastolic blood pressure 88 mm[Hg] Nani Calloway MD Work Phone: [facility] 12-25-2022 10:12-0400 Heart rate 77 /min Nani Calloway MD Work Phone: [facility] 12-25-2022 10:12-0400 Systolic blood pressure 132 mm[Hg] Nani Calloway MD Work Phone: [facility] 12-10-2022 11:00-0400 Body height 154.94 cm Jani Willy Other [employer] Other 12-10-2022 11:00-0400 Body mass index (BMI) [Ratio] 42.06 kg/m2 Jani Willy Other [employer] Other 12-10-2022 11:00-0400 Body temperature 96.8 [degF] Jani Willy Other [employer] Other 12-10-2022 11:00-0400 Body weight 100.97 kg Jani Willy Other [employer] Other 12-10-2022 11:00-0400 Diastolic blood pressure 85 mm[Hg] Jani Willy Other [employer] Other 12-10-2022 11:00-0400 Respiratory rate 18 /min Jani Willy Other [employer] Other 12-10-2022 11:00-0400 SaO2% (BldA) [Mass fraction] 95 % Jani Willy Other [employer] Other 12-10-2022 11:00-0400 Systolic blood pressure 130 mm[Hg] Jani Willy Other [employer] Other 10-31-2022 14:21-0400 Body height 154.94 cm MD Nicole Vargas Work Phone: [facility] 10-31-2022 14:21-0400 Body weight 100.24 kg MD Nicole Vargas Work Phone: [facility] 10-31-2022 14:00-0400 Diastolic blood pressure 92 mm[Hg] MD Nicole Vargas Work Phone: [facility] 10-31-2022 14:00-0400 Heart rate 80 /min MD Nicole Vargas Work Phone: [facility] 10-31-2022 14:00-0400 Systolic blood pressure 176 mm[Hg] MD Nicole Vargas Work Phone: [facility] 05-31-2022 10:40-0400 Body height 154.94 cm China Noland Other [employer] Other 05-31-2022 10:40-0400 Body mass index (BMI) [Ratio] 40.81 kg/m2 [employer] Other [employer] Other 05-31-2022 10:40-0400 Body temperature 97.3 [degF] [employer] Other [employer] Other 05-31-2022 10:40-0400 Body weight 97.98 kg [employer] Other [employer] Other 05-31-2022 10:40-0400 Respiratory rate 18 /min [employer] Other [employer] Other 05-31-2022 10:40-0400 SaO2% (BldA) [Mass fraction] 94 % [employer] Other [employer] Other 05-15-2022 14:48-0400 Body height 155 cm Ruth Ann DIAMOND-C Work Phone: [facility] 05-15-2022 14:48-0400 Body temperature 97.5 [degF] Ruth Ann Marlin PA-C Work Phone: [facility] 05-15-2022 14:48-0400 Body weight 100.97 kg Ruth Ann Marlin PA-C Work Phone: [facility] 05-15-2022 14:48-0400 Diastolic blood pressure 97 mm[Hg] Ruth Ann Marlin PA-C Work Phone: [facility] 05-15-2022 14:48-0400 Heart rate 87 /min Ruth Ann Marlin PA-C Work Phone: [facility] 05-15-2022 14:48-0400 Respiratory rate 18 /min Ruth Ann Marlin PA-C Work Phone: [facility] 05-15-2022 14:48-0400 SaO2% (BldA) [Mass fraction] 95 % Ruth Ann Marlin PA-C Work Phone: [facility] 05-15-2022 14:48-0400 Systolic blood pressure 158 mm[Hg] Ruth Ann Marlin PA-C Work Phone: [facility] 03-02-2022 18:15-0500 Body height 154.94 cm [employer] Other [employer] Other 03-02-2022 18:15-0500 Body mass index (BMI) [Ratio] 40.96 kg/m2 [employer] Other [employer] Other 03-02-2022 18:15-0500 Body temperature 97.8 [degF] [employer] Other [employer] Other 03-02-2022 18:15-0500 Body weight 98.34 kg [employer] Other [employer] Other 03-02-2022 18:15-0500 Respiratory rate 18 /min [employer] Other [employer] Other 03-02-2022 18:15-0500 SaO2% (BldA) [Mass fraction] 92 % [employer] Other [employer] Other 12-06-2021 12:00-0400 Body height 154.94 cm Jani Willy Other [employer] Other 12-06-2021 12:00-0400 Body mass index (BMI) [Ratio] 42.13 kg/m2 Jani Willy Other [employer] Other 12-06-2021 12:00-0400 Body temperature 97.1 [degF] Jani Willy Other [employer] Other 12-06-2021 12:00-0400 Body weight 101.15 kg Jani Willy Other [employer] Other 12-06-2021 12:00-0400 Diastolic blood pressure 82 mm[Hg] Jani Willy Other [employer] Other 12-06-2021 12:00-0400 Respiratory rate 20 /min Jani Willy Other [employer] Other 12-06-2021 12:00-0400 SaO2% (BldA) [Mass fraction] 92 % Jani Willy Other [employer] Other 12-06-2021 12:00-0400 Systolic blood pressure 125 mm[Hg] Jani Willy Other [employer] Other Encounters Encounter Date Encounter Type Care Provider Facility Start: 05-14-2024 End: 05-14-2024 ambulatory Jeremiah Karthikeyan Rodriguez DO Work Phone: [facility] Work Phone: Start: 05-14-2024 End: 05-14-2024 Patient encounter procedure Jeremiahallyson Rodriguez DO Work Phone: [facility] [place] Work Phone: Start: 05-11-2024 Non-patient / Non-visit Jeremiah Jennifer DO Work Phone: [facility] [place] Work Phone: Start: 05-01-2024 End: 05-01-2024 ambulatory Hilario Mast DO Work Phone: [facility] Work Phone: Start: 05-01-2024 End: 05-01-2024 Patient encounter procedure Hilario Mast DO Work Phone: [facility] Work Phone: Start: 04-23-2024 End: 04-23-2024 Initial nursing facility care/day 25 minutes Duglas GRAHAMM Work Phone: [facility] Randolph Hir[facility] Comment on above: Onychodystrophy (Suzanna jeff Dx); Localized edema; Decreased pedal pulses; Aspirin long-term use Start: 04-15-2024 Non-patient / Non-visit Hilario M ast DO Work Phone: [facility] Work Phone: Start: 04-14-2024 End: 04-18-2024 Evaluation and management of inpatient Hilario Mast DO Work Phone: [facility] Work Phone: Start: 03-26-2024 End: 03-26-2024 ambulatory Hilario Mast DO Work Phone: [facility] Work Phone: Start: 03-26-2024 End: 03-26-2024 Departed Referred Hilario Mast DO Work Phone: [facility] Work Phone: Start: 03-26-2024 End: 03-26-2024 Patient encounter procedure Hilario Mast DO Work Phone: [facility] Work Phone: Start: 03-16-2024 End: 03-19-2024 Clinisync Result Encounter Generic External Data Provider [facility] External Department Unsolicited Start: 03-16-2024 End: 03-19-2024 Clinisync Result Encounter Generic External Data Provider [facility] External Department Unsolicited Start: 03-05-2024 Non-patient / Non-visit Hilario M ast DO Work Phone: [facility] Work Phone: Start: 03-03-2024 End: 03-06-2024 Evaluation and management of inpatient ALFREDO [facility] Comment on above: 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) Start: 03-03-2024 Emergency department patient visit ALFREDO [facility] Start: 02-10-2024 End: 02-10-2024 Patient encounter procedure Hilario Mast DO Work Phone: [facility] [place] Work Phone: Start: 02-10-2024 End: 02-10-2024 ambulatory Cardoza Calloway Facility:[facility] Start: 12-09-2023 End: 12-09-2023 ambulatory DO Hilario Mast Work Phone: [facility] Work Phone: Start: 12-09-2023 End: 12-09-2023 Patient encounter procedure DO [facility] Work Phone: Start: 12-02-2023 End: 12-02-2023 ambulatory DO Hilario Mast Work Phone: [facility] Work Phone: Start: 12-02-2023 End: 12-02-2023 Patient encounter procedure DO Hilario Mast Work Phone: [facility] [place] Work Phone: Start: 11-26-2023 End: 11-26-2023 Bamboo flowsheet Bernadine Diaz DO Work Phone: [facility] Start: 11-26-2023 End: 11-26-2023 Bamboo flowsheet Bernadine Diaz DO Work Phone: [facility] Start: 11-26-2023 End: 11-26-2023 Office outpatient visit 25 minutes Bernadine Diaz DO Work Phone: [facility] Comment on above: Primary osteoarthrit is of left hip (Primary Dx); History of left hip replacement; Chronic pain of left knee; Primary osteoarthritis of left knee Start: 11-26-2023 End: 11-26-2023 ambulatory BERNADINE DIAZ Not Available Start: 11-18-2023 End: 11-18-2023 ambulatory PARUL FREEMAN Not Available Start: 11-18-2023 End: 11-18-2023 Office outpatient visit 15 minutes Parul Freeman 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 ASSESSOR-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 Work Phone: [facility] Comment on above: Melanocytic nevus of trunk; Lentigines; Seborrheic keratosis; Neoplasm of unspecified behavior of bone, soft tissue, and skin Start: 11-18-2023 End: 11-18-2023 Bamboo flowsheet Parul A Ebenezerer 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 ASSESSOR-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 Work Phone: [facility] Start: 11-18-2023 End: 11-18-2023 Bamboo flowsheet Parul A Felter 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 ASSESSOR-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 Work Phone: [facility] Start: 11-08-2023 End: 11-08-2023 ambulatory DO Hilario Mast Work Phone: [facility] Work Phone: Start: 11-08-2023 End: 11-08-2023 Patient encounter procedure [facility] [place] Work Phone: Start: 09-09-2023 End: 09-09-2023 ambulatory DO Hilario Mast Work Phone: [facility] Work Phone: Start: 09-09-2023 End: 09-09-2023 Patient encounter procedure DO Hilario Mast Work Phone[facility] [place] Work Phone: Start: 09-02-2023 End: 09-02-2023 Patient encounter procedure DO Hilario Mast Work Phone: [facility] [place] Work Phone: Start: 08-08-2023 End: 08-08-2023 Office outpatient visit 25 minutes Nani Calloway MD Work Phone: [facility] Comment on above: Coronary artery dise ase involving [place] coronary artery of [place] heart without angina pectoris (Primary Dx); S/P PTCA (percutaneous transluminal coronary angioplasty); Mixed hyperlipidemia; Essential hypertension, benign; BMI 39.0-39.9,adult; Former smoker; Class 2 obesity Start: 08-08-2023 End: 08-08-2023 ambulatory NANI Napier [facility] Start: 06-24-2023 End: 06-24-2023 Patient encounter procedure MD Nicole Vargas Work Phone: [facility] Work Phone: Start: 06-24-2023 End: 06-24-2023 ambulatory MD Nicole Vargas Work Phone: [facility] Work Phone: Start: 05-13-2023 End: 05-13-2023 ambulatory [...] encounter procedure MD Nicole Vargas Work Phone: [facility] Work Phone: Start: 04-16-2023 End: 04-16-2023 ambulatory MD Nicole Vargas Work Phone: [facility] Work Phone: Start: 04-16-2023 End: 04-16-2023 Patient encounter procedure MD Nicole Vargas Work Phone: [facility] [place] Work Phone: Start: 04-02-2023 End: 04-02-2023 Office outpatient visit 25 minutes Nani Calloway MD Work Phone: [facility] Comment on above: Stented coronary art raul (Primary Dx); Coronary artery disease involving [place] coronary artery of [place] heart without angina pectoris; Essential hypertension, benign; Mixed hyperlipidemia; Abnormal stress test; Morbid obesity (CMS/HCC) Start: 03-05-2023 End: 03-05-2023 ambulatory BERNADINE DIAZ Not Available Start: 02-19-2023 End: 02-19-2023 ambulatory Hilario Mast Other [employer] Other Start: 02-19-2023 Office outpatient vi sit 25 minutes Hilario Mast [facility] Start: 02-19-2023 Telephone encounter Hilario Mast [facility] Start: 02-19-2023 End: 02-19-2023 Patient encounter procedure MD Nicole Vargas Work Phone: [facility] Work Phone: Start: 02-05-2023 End: 02-05-2023 Patient encounter procedure MD Nicole Vargas Work Phone: [facility] [place] Work Phone: Start: 01-22-2023 End: 01-22-2023 ambulatory Ordering Provider Other [employer] Other Start: 01-22-2023 Telephone encounter Ordering Provide r [facility] Start: 01-22-2023 End: 01-22-2023 Office outpatient visit 25 minutes Jacqueline WHITLOCK Work Phone: [facility] Comment on above: Coronary artery dise ase involving [place] coronary artery of [place] heart without angina pectoris (Primary Dx); S/P angioplasty with stent; Angina pectoris (CMS/HCC); Essential hypertension, benign; Mixed hyperlipidemia; BMI 40.0-44.9, adult (CMS/HCC) Start: 01-17-2023 End: 01-18-2023 Admission to same day surgery center MD Nicole Vargas Work Phone: [facility] Work Phone: Start: 01-17-2023 End: 01-18-2023 ambulatory MD Nicole Vargas Work Phone: [facility] Work Phone: Start: 01-15-2023 End: 01-15-2023 Patient encounter procedure MD Nicole Vargas Work Phone: [facility] Work Phone: Start: 12-25-2022 End: 12-25-2022 Office outpatient new 60 minutes Nani Calloway MD Work Phone: [facility] Comment on above: Abnormal stress test ; Angina pectoris (CMS/HCC); Abnormal EKG; Hyperlipidemia, unspecified hyperlipidemia type; Essential hypertension, benign Start: 12-10-2022 End: 12-10-2022 ambulatory Jani Willy Other [employer] Other Start: 12-10-2022 Office outpatient vi sit 15 minutes Jani Willy [facility] Start: 11-19-2022 Assay of hemosiderin , quant Parul Freeman 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 ASSESSOR-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 Work Phone: [facility] Start: 10-31-2022 End: 10-31-2022 ambulatory MD Nicole Vargas Work Phone: [facility] Work Phone: Start: 10-31-2022 End: 10-31-2022 Patient encounter procedure MD Nicole Vargas Work Phone: [facility] Work Phone: Start: 10-31-2022 ambulatory Facility:[id number] Start: 06-10-2022 End: 06-11-[address] ARY DORADO Facility:H1 Start: 06-06-2022 End: 06-07-2022 ambulatory SUZE MARROQUIN Facility:H1 Start: 05-31-2022 End: 05-31-2022 ambulatory China Noland Other [employer] Other Start: 05-31-2022 Office outpatient vi sit [...] Facility:H1 Start: 04-03-2022 End: 04-04-2022 ambulatory ROSA ADLERMARYELLENSALVADOR Facility:H1 Start: 03-02-2022 End: 03-02-2022 ambulatory China Noland Other [employer] Other Start: 03-02-2022 Office outpatient vi sit 15 minutes China Noland [facility] Start: 01-23-2022 Refill Ruth Ann Gutierres PA-C Work Phone: Hematology/Oncology Comment on above: Refill Request Start: 12-06-2021 End: 12-06-2021 ambulatory Jani Willy Other [employer] Other Start: 12-06-2021 Office outpatient vi sit 25 minutes Jani Willy [facility] Start: 10-31-2021 End: 11-01-[address] NICOLE VARGAS Facility:H1 Procedures Date Procedure Procedure Detail Performing Clinician Start: 04-14-2024 Plain chest X-ray Hilario Mast DO Work Phone: Start: 03-16-2024 Bacteria identified in Urine by Culture Generic External Data Provider Start: 03-06-2024 Basic metabolic panel calcium total Hanny Baer DO Work Phone: Start: 03-05-2024 Basic metabolic panel calcium total Hanny Baer DO Work Phone: Start: 03-04-2024 Ct head/brain w/o contrast material Hanny Baer DO Work Phone: Start: 03-04-2024 Basic metabolic panel calcium total Johny Ricks MD Work Phone: Start: 03-04-2024 Basic metabolic panel calcium total Hanny Baer DO Work Phone: Start: 03-03-2024 Ct head/brain w/o contrast material Hanny Baer DO Work Phone: Start: 03-03-2024 Ct lumbar spine w/o contrast material Hanny Baer DO Work Phone: Start: 03-03-2024 Ct thorax w/contrast material Hanny Baer DO Work Phone: Start: 03-03-2024 Blood typing serologic abo Frandy Patel MD Start: 03-03-2024 TRAUMA PANEL Frandy Patel MD Start: 12-02-2023 Bacteria identified in Urine by Culture DO HilarioConjunct Work Phone: Start: 11-27-2023 Arthrocentesis aspir&/inj major jt/bursa w/o us Bernadine Diaz DO Work Phone: Start: 11-26-2023 Radex hip unilateral with pelvis 2-3 views Bernadine Diaz DO Work Phone: Start: 11-18-2023 SKIN / NAIL BIOPSY Parul Freeman 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 ASSESSOR-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 Work Phone: Start: 11-08-2023 Plain chest X-ray DO Hilario Mast Work Phone: Start: 06-24-2023 Dual energy X-ray absorptiometry MD Nicole Vargas Work Phone: Start: 04-16-2023 Lipid 1996 panel - Serum or Plasma Ruth Ann DIAMOND-Fawn Work Phone: Start: 02-05-2023 Duplex scan of lower limb veins MD Nicole Vargas Work Phone: Start: 01-17-2023 CT of abdomen and pelvis without contrast MD Nicole Vargas Work Phone: Start: 01-17-2023 CL Closure Device Placement 0 MD Nicole Vargas Work Phone: Start: 01-17-2023 CL Ivus Initial Vessel MD Nicole Vargas Work Phone: Start: 01-17-2023 CL LHC & COR Angio MD Nicole Vargas Work Phone: Start: 01-17-2023 CL Stent 1st Vessel CX JANICE MD Nicole Vargas Work Phone: Start: 01-17-2023 CL Stent 1st Vessel LAD JANICE MD Nicole Vargas Work Phone: Start: 01-17-2023 CL Stent Ea Add CX JANICE MD Nicole Vargas Work Phone: Start: 01-17-2023 MD Nicole Vargas Work Phone: Start: 12-25-2022 Ecg routine ecg w/least 12 lds w/i&r Nani Calloway MD Work Phone: Start: 12-25-2022 CARDIAC STRESS TEST Generic Provider Scanning Start: 10-31-2022 Radionuclide myocardial perfusion stress study MD Nicole Vargas Work Phone: Start: 10-10-2022 H/O: hysterectomy History of partial hysterectomy Parul Freeman APRN-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 Work Phone: Start: 04-11-2018 Colonoscopy Ruth Ann Gutierres PA-C Work Phone: Plan of Treatment Date Care Activity Detail Author Start: 04-16-2028 Lipid panel Lipid Screening [facility] Start: 05-12-2026 Diabetes Screening Diabetes Screening [facility] Start: 10-23-2025 DTaP/Tdap/Td vaccine (2 - Tdap) DTaP/Tdap/Td vaccine (2 - Tdap) [facility] Start: 10-23-2025 DTaP/Tdap/Td Vaccines (2 - Tdap) DTaP/Tdap/Td Vaccines (2 - Tdap) [facility] Start: 10-23-2025 Urine microalbumin profile [facility] Start: 05-15-2025 DIABETES SCREEN DIABETES SCREEN [facility] Start: 11-17-2024 End: 11-17-2024 Patient encounter procedure 11/17/2024 2:40 PM EDT Office Visit [facility] [address] [place] [id number] EbenezerParul quiñonez, 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 ASSESSOR-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 [address] [place] [address] [facility] Start: 08-28-2024 Glaucoma screening Diabetes: Retinopathy Screening [facility] Start: 05-12-2024 End: 05-12-2024 Follow-up encounter 05/12/2024 3:00 PM EDT Visit (SP) Office Hematology/Oncology [address] [place] [address] Rosa Turner MD [address] [place] [id number] 1 year follow up Hematology/Oncology Comment on above: 1 year follow up Start: 05-12-2024 End: 05-12-2024 Patient encounter procedure 05/12/2024 2:45 PM EDT Office Visit [facility] [address] [place] [address] [place] [address] 1 year follow up [facility] Comment on above: 1 year follow up Start: 05-12-2024 End: 08-11-2024 CBC W Auto Differential panel - Blood CBC + DIFF Lab Routine Obesity, Class III, BMI 40-49.9 (morbid obesity) (HCC) Malignant neoplasm of lower-inner quadrant of right breast of female, estrogen receptor positive (HCC) Breast screening Encounter for screening mammogram for malignant neoplasm of breast Osteopenia, unspecified location Expected: 05/12/2024 (Approximate), Expires: 08/11/2024 [facility] Work Phone: Comment on above: Expected: [...] unspecified location Expected: 05/12/2024 (Approximate), Expires: 08/11/2024 [facility] Work Phone: Comment on above: Expected: 05/12/2024 (Approximate), Expi res: 08/11/2024 Start: 04-24-2024 [facility] Start: 04-23-2024 [facility] Start: 04-22-2024 [facility] Start: 04-21-2024 [facility] Start: 04-20-2024 [facility] Start: 04-19-2024 [facility] Start: 04-18-2024 [facility] Start: 04-15-2024 Referral to clinical laboratory director [facility] Start: 04-14-2024 [facility] Start: 04-14-2024 End: 06-11-2024 DBT Breast - bilateral screening WICHO SCREENING W BETINA Radiology Routine Obesity, Class III, BMI 40-49.9 (morbid obesity) (HCC) Malignant neoplasm of lower-inner quadrant of right breast of female, estrogen receptor positive (HCC) Breast screening Encounter for screening mammogram for malignant neoplasm of breast Osteopenia, unspecified location Expected: 04/14/2024, Expires: 06/11/2024 [facility] Work Phone: Comment on above: Expected: 04/14/2024, Expires: Start: 04-14-2024 Hospital admission [facility] Start: 03-13-2024 End: 03-13-2024 Patient encounter procedure 03/13/2024 1:30 PM EST Office Visit [facility] [address] [place] [address] Nani Calloway MD [address] [place] [address] [facility] Start: 03-04-2024 Advance Directive Discussion Advance Directive Discussion [facility] Start: 03-03-2024 Annual Wellness Visit (Medicare) Annual Wellness Visit (Medicare) [facility] Start: 02-07-2024 End: 08-07-2024 Alanine aminotransferase [Enzymatic activity/volume] in Serum or Plasma by With P-5'-P Alanine Aminotransferase Lab Routine Mixed hyperlipidemia Expected: 02/07/2024 (Approximate), Expires: 08/07/2024 [facility] Service Area Work Phone: Comment on above: Expected: 02/07/2024 (Approximate), Expi res: 08/07/2024 Start: 02-07-2024 End: 08-07-2024 Aspartate aminotransferase [Enzymatic activity/volume] in Serum or Plasma by With P-5'-P Aspartate Aminotransferase Lab Routine Mixed hyperlipidemia Expected: 02/07/2024 (Approximate), Expires: 08/07/2024 [facility] Work Phone: Comment on above: Expected: 02/07/2024 (Approximate), Expi res: 08/07/2024 Start: 02-07-2024 End: 08-07-2024 Basic metabolic 2000 panel - Serum or Plasma Basic Metabolic Panel Lab Routine Essential hypertension, benign Expected: 02/07/2024 (Approximate), Expires: 08/07/2024 [facility] Work Phone: Comment on above: Expected: 02/07/2024 (Approximate), Expi res: 08/07/2024 Start: 02-07-2024 End: 08-07-2024 CBC panel - Blood by Automated count CBC Lab Routine Coronary artery disease involving [place] coronary artery of [place] heart without angina pectoris S/P PTCA (percutaneous transluminal coronary angioplasty) Expected: 02/07/2024 (Approximate), Expires: 08/07/2024 [facility] Work Phone: Comment on above: Expected: 02/07/2024 (Approximate), Expi res: 08/07/2024 Start: 02-07-2024 End: 08-07-2024 Lipid 1996 panel - Serum or Plasma Lipid Panel Lab Routine Mixed hyperlipidemia Expected: 02/07/2024 (Approximate), Expires: 08/07/2024 [facility] Work Phone: Comment on above: Expected: 02/07/2024 (Approximate), Expi res: 08/07/2024 Start: 12-02-2023 Bacteria identified in Urine by Culture [facility] Start: 11-26-2023 End: 11-26-2023 Patient encounter procedure [facility] Comment on above: Primary osteoarthritis of left hip (Prim janette Dx); History of left hip replacement Start: 11-03-2023 COVID-19 Vaccine () COVID-19 Vaccine () [facility] Start: 11-03-2023 Covid-19 Vaccine () Covid-19 Vaccine () [facility] Start: 11-03-2023 Influenza vaccination Influenza Vaccine (#1) [facility] Start: 08-08-2023 End: 08-08-2023 Patient encounter procedure 08/08/2023 9:10 AM EDT Office Visit [facility] [address] [facility] [address] [place] [phone] Nani Calloway MD [address] [facility] [address] [place] [address] [facility] Start: 06-12-2023 Urine screening for protein Diabetes: Urine Protein Screening [facility] Start: 04-16-2023 End: 04-02-2024 Basic metabolic 2000 panel - Serum or Plasma Basic Metabolic Panel Lab Routine Coronary artery disease involving [place] coronary artery of [place] heart without angina pectoris Essential hypertension, benign Expected: 04/16/2023 (Approximate), Expires: 04/02/2024 [facility] Work Phone: Comment on above: Expected: 04/16/2023 (Approximate), Expi res: 04/02/2024 Start: 04-02-2023 End: 04-02-2024 Alanine aminotransferase [Enzymatic activity/volume] in Serum or Plasma by With P-5'-P Alanine Aminotransferase Lab Routine Coronary artery disease involving [place] coronary artery of [place] heart without angina pectoris Mixed hyperlipidemia Expected: 04/02/2023 (Approximate), Expires: 04/02/2024 [facility] Work Phone: Comment on above: Expected: 04/02/2023 (Approximate), Expi res: 04/02/2024 Start: 04-02-2023 End: 04-02-2024 Aspartate aminotransferase [Enzymatic activity/volume] in Serum or Plasma by With P-5'-P Aspartate Aminotransferase Lab Routine Coronary artery disease involving [place] coronary artery of [place] heart without angina pectoris Mixed hyperlipidemia Expected: 04/02/2023 (Approximate), Expires: 04/02/2024 [facility] Work Phone: Comment on above: Expected: 04/02/2023 (Approximate), Expi res: 04/02/2024 Start: 04-02-2023 End: 04-02-2024 Lipid 1996 panel - Serum or Plasma Lipid Panel Lab Routine Coronary artery disease involving [place] coronary artery of [place] heart without angina pectoris Mixed hyperlipidemia Expected: 04/02/2023 (Approximate), Expires: 04/02/2024 [facility] Service Area Work Phone: Comment on above: Expected: 04/02/2023 (Approximate), Expi res: 04/02/2024 Start: 04-02-2023 End: 04-02-2023 Patient encounter procedure 04/02/2023 9:20 AM EST Office Visit [facility] [address] [phone] Nani Calloway MD [address] [facility] [address] [place] [id number] [facility] Start: 03-28-2023 Screening for osteoporosis Bone Density Scan [facility] Start: 03-04-2023 Advance Directive Discussion Advance Directive Discussion [facility] Start: 03-04-2023 Depression Assessment Depression Assessment [facility] Start: 02-18-2023 Hemoglobin A1c measurement Diabetes: Hemoglobin A1C [facility] Start: 01-18-2023 [facility] Start: 01-18-2023 Hospital admission [facility] Start: 01-17-2023 [facility] Start: 11-02-2022 COVID-19 Vaccine ( season) COVID-19 Vaccine ( season) [facility] Start: 11-02-2022 COVID-19 Vaccine () COVID-19 Vaccine () [facility] Start: 11-02-2022 Influenza vaccination Influenza Vaccine (#1) [facility] Start: 10-31-2022 Radionuclide myocardial perfusion stress study NM ag perf SPECT rest & str [facility] Start: 10-31-2022 SPECT Heart perfusion at rest and W stress and W radionuclide IV [facility] Start: 09-12-2022 Respiratory Syncytial Virus (RSV) or age 60 yrs+ (1 - 1-dose 75+ series) Respiratory Syncytial Virus (RSV) or age 60 yrs+ (1 - 1-dose 75+ series) [facility] Start: 09-12-2022 RSV Vaccine (1 - 1-dose 75+ series) RSV Vaccine (1 - 1-dose 75+ series) [facility] Start: 03-04-2022 ADVANCE DIRECTIVE DISCUSSION ADVANCE DIRECTIVE DISCUSSION [facility] Start: 03-04-2022 DEPRESSION ASSESSMENT DEPRESSION ASSESSMENT [facility] Start: 02-26-2022 COVID-19 Vaccine (3 - Booster for Nicky series) COVID-19 Vaccine (3 - Booster for Nicky series) [facility] Start: 11-02-2021 Influenza vaccination INFLUENZA (#1) [facility] Start: 05-26-2021 COVID-19 VACCINE (3 - Booster for Nicky series) COVID-19 VACCINE (3 - Booster for Nicky series) [facility] Start: 03-28-2021 DIABETES SCREEN DIABETES SCREEN [facility] Start: 03-04-2021 ADVANCE DIRECTIVE DISCUSSION ADVANCE DIRECTIVE DISCUSSION [facility] Start: 03-04-2021 DEPRESSION ASSESSMENT DEPRESSION ASSESSMENT [facility] Start: 04-11-2019 Colonoscopy COLONOSCOPY [facility] Start: 04-11-2019 COLORECTAL CANCER SCREENING COLORECTAL CANCER SCREENING [facility] Start: 03-12-2018 PNEUMOCOCCAL: 65+ (2 - PCV) PNEUMOCOCCAL: 65+ (2 - PCV) [facility] Start: 09-12-2012 BONE DENSITY BONE DENSITY [facility] Start: 2007 RSV patients and/or patients aged 60+ years (1 - 1-dose 60+ series) RSV patients and/or patients aged 60+ years (1 - 1-dose 60+ series) [facility] Start: 2007 RSV Vaccine (1 - 1-dose 60+ series) RSV Vaccine (1 - 1-dose 60+ series) [facility] Start: 09-12-1997 Shingles vaccine (1 of 2) Shingles vaccine (1 of 2) [facility] Start: 09-12-1997 SHINGRIX VACCINE (1 of 2) SHINGRIX VACCINE (1 of 2) [facility] Start: 09-12-1997 Zoster Vaccines (1 of 2) Zoster Vaccines (1 of 2) [facility] Start: 09-12-1992 COLOGUARD (FIT-DNA) COLOGUARD (FIT-DNA) [facility] Start: 09-12-1992 Colonoscopy COLONOSCOPY [facility] Start: 09-12-1992 COLORECTAL CANCER SCREENING COLORECTAL CANCER SCREENING [facility] Start: 09-12-[address] COLONOGRAPHY [facility] Start: 09-12-1992 FECAL OCCULT BLOOD FECAL OCCULT BLOOD [facility] Start: 09-12-1992 LIPID SCREEN LIPID SCREEN [facility] Start: 09-12-1992 Screening for malignant neoplasm of colon [facility] Start: 09-12-1992 SIGMOIDOSCOPY SIGMOIDOSCOPY [facility] Start: 1987 Mammography MAMMOGRAM [facility] Start: 09-12-1965 Anxiety Screening Anxiety Screening [facility] Start: 09-12-1965 Depression Screening Depression Screening [facility] Start: 09-12-1965 Diabetes mellitus screening Diabetes Screening [facility] Start: 09-12-1965 HEPATITIS C SCREENING HEPATITIS C SCREENING [facility] Start: 09-12-1965 Hepatitis C screening [facility] Start: 1959 Depression Screen Depression Screen [facility] Start: 09-12-1957 Lipid panel Lipids [facility] Start: 1947 Creatinine measurement Creatinine Level [facility] Start: 1947 Echocardiography Echocardiogram [facility] Start: 1947 Lipid panel Lipid Panel [facility] Start: 1947 Medicare Annual Wellness Visit Medicare Annual Wellness Visit (AWV) [facility] Start: 1947 Potassium measurement Potassium Level [facility] Start: 1947 Screening for malignant neoplasm of colon [facility] Start: 1947 Thyroid stimulating hormone measurement TSH Level [facility] Bacteria identified in Urine by Culture URINE CULTURE, ROUTINE Lab Routine 03/16/2024 9:00 PM EST 2U End: 03-08-2024 Basic metabolic 2000 panel - Serum or Plasma Basic Metabolic Panel Lab Routine Daily for 5 Days starting 03/04/2024 until 03/08/2024, 3 completed [facility] Comment on above: Daily for 5 Days starting 03/04/2024 unt il 03/08/2024, 3 completed End: 03-08-2024 CBC W Auto Differential panel - Blood CBC with Auto Differential Lab Routine Daily for 5 Days starting 03/04/2024 until 03/08/2024, 3 completed [facility] Work Phone: Comment on above: Daily for 5 Days starting 03/04/2024 unt il 03/08/2024, 3 completed Continuous pulse oximetry Pulse oximetry, continuous Respiratory Care Routine Every 4hr until discontinued starting 03/05/2024 [facility] Comment on above: Every 4hr until discontinued starting Debridement nail any method 1-5 DEBRIDEMENT OF NAIL(S), 1-5 Procedures Routine Onychodystrophy Localized edema Decreased pedal pulses Aspirin long-term use Ordered: 04/23/[address] RANDOLPH HIRSCH [facility] Work Phone: Comment on above: Ordered: 04/23/2024 Dermatopathology exam Dermatopat hology exam Pathology and Cytology Timed Neoplasm of unspecified behavior of bone, soft tissue, and skin Release Upon Ordering for 1 Occurrences starting 11/18/2023 [employer] Work Phone: Comment on above: Release Upon Ordering for 1 Occurrences starting 11/18/2023 Intermittent pulse oximetry Acapella Respiratory Care Routine As Needed until discontinued starting 03/03/2024 [facility] Comment on above: As Needed until discontinued starting End: 06-14-2023 WICHO SCREENING W BETINA WICHO SCREENING W BETINA Radiology Routine Malignant neoplasm of lower-inner quadrant of right breast of female, estrogen receptor positive (HCC) Breast screening Encounter for screening mammogram for malignant neoplasm of breast 1 Occurrences starting 05/15/2022 until 06/14/2023 [facility] Work Phone: Comment on above: 1 Occurrences starting 05/15/2022 until 06/14/2023 Oxygen therapy [Mini mum Data Set] Initiate Oxygen Therapy Protocol Respiratory Care Routine As Needed until discontinued starting 03/03/2024 [facility] Comment on above: As Needed until discontinued starting Oxygen therapy [Mini mum Data Set] Initiate Oxygen Therapy Protocol Respiratory Care Routine Daily until discontinued starting 03/03/2024 [facility] Comment on above: Daily until discontinued starting 2023 Patient Education Coronary Angio plasty (DC) Coronary Stenting (DC) Angina (DC) Chest Pain (DC) Drug Eluting Stents [facility] Work Phone: Patient referral [facility] Work Phone: Renal function 2000 panel - Serum or Plasma [facility] Spirometry panel Incentive althea metry Respiratory Care Routine As Needed until discontinued starting 03/03/2024 [facility] Comment on above: As Needed until discontinued starting XR Chest 2 Views [facility] Immunizations Immunization Date Immunization Notes Care Provider Cindy collado 10-25-2023 influenza, high dose seasonal, preservative-free Hilario Mast DO Work Phone: [facility] 02-19-2023 influenza, injectabl e, quadrivalent, preservative free Hilario Mast Other [facility] 02-19-2023 influenza virus vacc ine, unspecified formulation Duglas Dumas DPM Work Phone: [facility] 01-18-2022 Pneumococcal conjuga te vaccine, 20-valent (PREVNAR 20) Nani Calloway MD Work Phone: [facility] Work Phone: 01-01-2022 Flu vaccine, quadrivalent, high-dose, preservative free, age 65y+ (FLUZONE) Nani Calloway MD Work Phone: [facility] Work Phone: 01-01-2022 influenza, high dose seasonal, preservative-free Parul Freeman 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-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 Work Phone: [facility] 01-01-2022 Moderna COVID-19 vaccine, bivalent, blue cap/riojas label *Check age/dose* Nani Calloway MD Work Phone: [facility] 01-01-2022 influenza virus vacc ine, unspecified formulation Nani Calloway MD Work Phone: [facility] Work Phone: 03-31-2021 COVID-19 (Moderna), Age 12+ MD Nicole Vargas Work Phone: [facility] 03-31-2021 COVID-19 original vaccine, full dose, monovalent (MODERNA) Ruth Ann Gutierres PA-C Work Phone: [facility] 12-15-2020 influenza, high dose seasonal, preservative-free Ruth Ann Floyder PA-C Work Phone: [facility] 05-07-2020 COVID-19 (J&J) MD Nicole Vargas Work Phone: [facility] 05-07-2020 COVID-19 vaccine (NICKY) Ruth Ann Gutierres PA-C Work Phone: [facility] 01-10-2020 influenza, high-dose , quadrivalent vaccine (FLUZONE HIGH DOSE QUADRIVALENT) Ruth Ann Floyder PA-C Work Phone: [facility] 03-01-2019 influenza, high dose seasonal, preservative-free Ruth Ann Floyder PA-C Work Phone: [facility] 03-18-2018 influenza nasal, unspecified formulation Ruth Ann Floyder PA-C Work Phone: [facility] 03-18-2018 influenza virus vacc ine, unspecified formulation Ruth Ann Floyder PA-C Work Phone: [facility] 03-17-2018 influenza, high dose seasonal, preservative-free Ruth Ann Floyder PA-C Work Phone: [facility] 03-12-2017 pneumococcal polysaccharide vaccine, 23 valent Ruth Ann Gutierres PA-C Work Phone: [facility] 02-13-2017 influenza, high dose seasonal, preservative-free Ruth Ann Marlin PA-C Work Phone: [facility] 11-14-2015 influenza, injectabl e, quadrivalent, preservative free Ruth Ann Floyder PA-C Work Phone: [facility] 10-24-2015 diphtheria, tetanus toxoids and acellular pertussis vaccine Ruth Ann Marlin PA-C Work Phone: [facility] 10-24-2015 influenza, high dose seasonal, preservative-free Ruth Ann Marlin PA-C Work Phone: [facility] Payers Date Payer Category Payer Self-pay [id number] 2022 Unknown [id number] 2013 Private Health Insurance 1.2 [id number] 2012 Medicare [id number] 1959 Medicare [id number] 2.1 6.840.1.558187.19 1959 Unknown [id number] 2.1 6.840.1.865019.19 1947 Unknown [id number] 2.16.84 0.1.187018.3.579.2.593 1947 Unknown [id number] 2.16.84 0.1.720861.3.579.2.593 1947 Unknown [id number] 2.16.84 0.1.746983.3.579.2.593 1947 Unknown [id number] 2.16.84 0.1.991063.3.579.2.593 1947 Unknown [id number] 2.16.84 0.1.632125.3.579.2.593 1947 Unknown [id number] 2.16. 840.1.274099.3.579.2.356 1947 Unknown [id number] 2.16.84 0.1.772127.3.579.2.1259 1947 Unknown [id number] 2.16.84 0.1.919934.3.579.2.1259 1947 Unknown [id number] 2.16.84 0.1.437269.3.579.2.1259 1947 Unknown [id number] 2.16.840 .1.774941.3.579.2.1259 1947 Unknown [id number] 2.16. 840.1.368990.3.579.2.175 1947 Unknown [id number] 2.16. 840.1.808429.3.579.2.175 1947 Unknown [id number] 2.16.8 40.1.480389.3.579.2.1244 Unknown [id number] 2.16.8 40.1.078801.3.579.2.531 Unknown [id number] 2.16.8 40.1.463261.3.579.2.531 Unknown [id number] 2.16.8 40.1.440737.3.579.2.531 Unknown [id number] 2.16.8 40.1.994328.3.579.2.531 Unknown [id number] 2.16.8 40.1.321389.3.579.2.531 Unknown [id number] 2.16.8 40.1.293347.3.579.2.531 Unknown [id number] 2.16.8 40.1.078640.3.579.2.531 Social History Date Type Detail Facility Unknown if ever smoked [employer] Other Start: 12-25-2022 End: 05-13-2023 Sex Assigned At [facility] Start: 06-29-2016 End: 05-15-2022 Tobacco smoking status NHIS Ex-smoker [facility] Start: 06-29-1980 End: 06-30-1995 History of tobacco use Current smoker [facility] Start: 06-29-1980 End: 06-30-1995 History of tobacco use Cigarette Smoker [facility] Start: 06-29-2016 End: 05-13-2023 Cigarettes smoked current (pack per day) - Reported 1 [facility] Start: 06-29-2016 End: 05-15-2022 Tobacco use and exposure Smokeless tobacco non-user [facility] Start: 05-16-2021 End: 04-23-2024 Alcohol intake Current non-drinker of alcohol (finding) [facility] Start: 1945 Sex Assigned At Not on file [facility] History of tobacco use Passive smoker [facility] Start: 1945 Sex Assigned At Female [facility] Start: 12-25-2022 End: 11-18-2023 Alcohol intake Lifetime non-drinker (finding) [facility] Work Phone: Start: 12-15-2022 End: 08-08-2023 Exposure to SARS-CoV-2 (event) Not sure [facility] Adult Depression Screening Assessment 0 [facility] Start: 06-10-2023 End: 04-15-2024 Tobacco smoking status NHIS Never smoked tobacco [facility] Start: 12-16-2022 Education 21 [facility] Start: 06-10-2023 Tobacco Comment Not smoked in 30 yrs [facility] Start: 10-10-2022 Gender identity Identifies as female gender (finding) [facility] Tobacco smoking stat us [facility]VIS Tobacco smoking consumption unknown [facility] How often to you hav e a drink containing alcohol? Never [facility] Start: 03-27-2024 End: 05-14-2024 Sex Female (finding) [facility] Start: 04-16-2024 SDWV Follow up SDOH Follow up [facility] Work Phone: Medical Equipment Procedure Code Equipment Code Equipment Origin al Text Equipment Identifier Dates CL STENT ZEB FRONTIER 2.75 X 18 FDA Start: 01-17-2023 CL STENT ZEB FRONTIER 3.0 X 18 FDA Start: 01-17-2023 CL STENT ZEB FRONTIER 3.5 X 12 FDA Start: 01-17-2023 Femoral artery closure plug/patch, synthetic polymer [id number] FDA Start: 01-17-2023 CL STENT ZEB FRONTIER [...] FRONTIER 3.5 X 12 FDA Start: 01-17-2023 Goals Date Patient Goal Desired Activity /State Functional Status Date Assessment Result Facility 04-18-2024 Functional status Patient at Baseline [facility] Work Phone: 02-11-2025 Functional status Patient at Baseline [facility] Work Phone: 01-18-2023 Functional status Patient at Baseline [facility] Work Phone: Mental Status Date Assessment Result Facility 04-18-2024 Cognitive function Cognitive Sta tus Patient at Baseline [facility] Work Phone: 04-14-2024 Cognitive function Cognitive Sta tus Patient at Baseline [facility] Work Phone: 01-18-2023 Cognitive function Cognitive Sta tus Patient at Baseline [facility] Work Phone: Clinical Notes 02-06-2021 to 04-23-2024 Duglas Dumas DPM - 04/23/2024 4:41 PM ESTPatient Instructions Note Date & Type Note Facility 04-23-2024 History of Presen t illness Narrative Katarina Camara : 1945 [place]: [facility] PCP: dr. Tena Date last seen: 04/14/2024 pt id by name PAST MEDICAL HISTORY Diagnosis Date CAD (coronary artery disease) CHF (congestive heart failure) (HCC) Diabetes mellitus (HCC) Fibromyalgia Hypertension Hypothyroidism Invasive ductal carcinoma of right breast (HCC) ER/[place]+ HER2- Current Outpatient Medications Medication Sig indapamide (LOZOL) 1.25 mg tablet Take 1.25 mg by mouth every morning. cetirizine HCl/pseudoephedrine (ZYRTEC-D ORAL) Take by mouth. letrozole (FEMARA) 2.5 mg tablet take 1 tablet by mouth every day alendronate (FOSAMAX) 70 mg tablet Take 70 mg by mouth one time a week. cholecalciferol, vitamin D3, (VITAMIN D3 ORAL) Refills(s) 0 rosuvastatin (CRESTOR) 20 mg tablet Take 20 mg by mouth once daily. For 30 days furosemide (LASIX) 20 mg tablet POTASSIUM ORAL Take by mouth. BACLOFEN ORAL Take by mouth as needed. carvedilol (COREG) 6.25 mg tablet Take 6.25 mg by mouth twice daily. VENTOLIN HFA 90 mcg/actuation inhaler INHALE 2 PUFFS BY MOUTH EVERY 6 HOURS NEEDED levothyroxine (SYNTHROID) 112 mcg tablet Take 112 mcg by mouth once daily. traMADol (ULTRAM) 50 mg tablet Take 50 mg by mouth as needed. montelukast (SINGULAIR) 10 mg tablet Take 10 mg by mouth daily at bedtime. ASCORBIC ACID/MULTIVIT-MIN (EMERGEN-C ORAL) Take by mouth. ramipril (ALTACE) 10 mg capsule Take 10 mg by mouth once daily. aspirin 81 mg cap Take 325 mg by mouth once daily. DULoxetine (CYMBALTA) 60 mg capsule Take 60 mg by mouth once daily. folic acid 1 mg tablet Take 1 mg by mouth once daily. No current facility-administered medications for this visit. ALLERGIES Allergen Reactions Ibuprofen Intolerance Lyrica [Pregabalin] Mental Status Change Vioxx [Rofecoxib] Swelling Pt seen for initial visit in room this morning. Signed consent form provided. Pt agreed to visit Subjective: Katarina is a 78 year old female who is not diabetic. Presents today for evaluation and treatment of painful digital nail deformity as well as generalized foot care . Patient has been unable to provide self nail care due to the severe nature of deformity which causes pain and pressure and limits the patients abilty to wear shoe gear without pain. Patient is advised not to attempt self care. Class B Findings: Decrease or absence of hair growth, Pigmentary changes, Skin texture (thin, shiny), and Nail changes (thickening) Objective: Each digital nail on the right 1 and the left 1 is elongated, thickened, ridged, & brittle. There is no surrounding cellulitis, deep incurvation, or evidence of bacterial infection. Class findings include diminished pedal pulses, lack of digital pedal hair growth, the above noted nail changes, and lower leg edema bilaterally. Lower Extremity Edema: yes: mild b/l Assessment: Symptomatic onychodystrophic digital nails toes 1 Rt 1 Lt. Examination of individual toenails: R5 is normal. R4 is normal. R3 is normal. R2 is normal. R1 is brittle, discolored, dystrophic, elongated, painful, L1 is brittle, discolored, dystrophic, elongated, painful, L2 is normal. L3 is normal. L4 is normal. L5 is normal. Plan: The offending nail margins were mechanically and electrically debrided to the level of normal underlying nail bed with good relief obtained as evidenced by pain free palpation of the digits. The patient will be followed to maintain the length and thickness of their nails as best as possible. Patient relates painful ambulation/tx. We will see her back on an as needed basis or sooner should problems arise. Patient was recommended walking, exercise Recommended: No Anti Fungal Onychodystrophy (primary encounter diagnosis) Localized edema Decreased pedal pulses Aspirin long-term use Duglas Dumas DPM documented in this encounter [facility] 04-23-2024 Instructions Duglas Dumas DPM - 04/23/2024 4:41 PM EST Pt not to attempt self care due to high risk. documented in this encounter [facility] 04-18-2024 Progress note Note Date/Time April 18, 2024 10:52am [facility] [address] [place] [address] Nephrology Progress Note Signed Patient: Katarina Camara MR#: [id number] : 1945 Acct:[id number] Age/Sex: 78 / F Adm Date: 5 Loc: Room: [address] [place] [address] Type: ADM IN Attending Dr: Kb Tavares MD Copies to: ~ Date of Service: 04/18/2024 Subjective Subjective Narrative: Patient this is 78-year-old female patient with past medical history of hypertension, hyperlipidemia, chronic disease status post stent placement last year, hypothyroidism, morbid obesity, recent subarachnoid hemorrhage. Patient was sent from [facility] to [facility] for syncopal episode. In the emergency room she was found to be hypotensive above revealed hyponatremia with sodium 130mmol/L, hypokalemia with initial potassium level 2.0, acute kidney injury with creatinine up to 1.7 mg deciliter from baseline around 1.0, serum bicarb 45. Patient had recent admission of C. difficile colitis and she she just finished oral vancomycin course. Patient continues to have diarrhea I reviewed the patient's home medications. She is on indapamide and Lasix for hypertension and volume management.. Patient follows with the cardiology clinicDr. Calloway. Patient was given 2 L of normal saline with improvement in blood pressure. Potassium was replaced with oral and IV KCl. Repeated lab this morning showed creatinine 1.46 mg deciliter, potassium 2.7 mmol/L, bicarb 27.8 mmol/L and sodium 134 mmol/L. Patient says she is feeling better. Does not feel dizziness. Blood pressure monisha encounter 109/72 Patient said that she continues to have diarrhea. She had 3 BM so far today. Denied cramps. No chest pain. No shortness of breath. She is currently on room air. Interval history : Patient was seen and examined in her room. She is awake alert oriented x 3. Blood pressure is well-controlled. Currently off IV fluid Repeated lab this morning showed better creatinine 0.95 mg deciliter, potassium remains is better at 3.39 mmol/L . Patient is currently on oral KCl 20 mill equivalent p.o. twice daily She continues to have 1 to twice daily diarrhea bowel movement, recent C. difficile. She is able to eat regular food without nausea or vomiting. Denied cough. No shortness of breath. No dizziness. Exam Physical Exam Vital Signs: Temp Pulse Resp BP Pulse Ox O2 Del Method 97.7 F 81 18 131/79 96 Room Air 04/18/24 08:00 04/18/24 08:00 04/18/24 08:00 04/18/24 08:00 04/18/24 08:00 04/18/24 08:00 Narrative: General: No acute distress Head :atraumatic normocephalic Eyes: PERRLA. Neck: no JVD no bruit. Heart: S1-S2. RRR Respiratory: Clear to auscultation. No wheezing. No crackles Abdomen: Soft, positive bowel sounds,no tenderness. Neurology: Awake alert oriented x3. No focal deficits Extremity. No cyanosis. No edema Skin: No skin rash Objective Intake and Output I&O: Intake & Output 04/15/24 04/16/24 04/17/24 04/18/24 23:59 23:59 23:59 23:59 Intake Total 3090 / 3090 3470 / 3470 3220 / 3220 1200 / 1200 Balance 3090 / 3090 3470 / 3470 3220 / 3220 1200 / 1200 Weight 90.9 kg 91.4 kg 95.2 kg 95.8 kg Meds and Allergies Meds: Active Medications Acetaminophen (Acetaminophen 500 Mg Tablet) 500 mg PO Q6HR PRN PRN Reason: pain Stop: 04/14/25 16:19 Acetaminophen (Acetaminophen 325 Mg Tablet) 650 mg PO Q6HR PRN PRN Reason: Pain Scale 1 - 3 or fever Stop: 04/14/25 16:23 Albuterol (Albuterol Hfa 60 Puff/8 Gram Inhaler) 1 puff INHALATION Q6HR PRN PRN Reason: shortness of breath or wheezing Stop: 04/14/25 16:19 Atorvastatin Calcium (Atorvastatin 40 Mg Tablet) 40 mg PO QHS [facility] Stop: 04/14/25 21:59 Last Admin: 04/17/24 22:26 Dose: 40 mg Carvedilol (Carvedilol 3.125 Mg Tablet) 3.125 mg PO BID.WITH.MEALS [facility] Stop: 04/14/25 16:59 Last Admin: 04/18/24 08:48 Dose: 3.125 mg Duloxetine HCl (Duloxetine 60 Mg Capsule.Dr) 60 mg PO DAILY [facility] Stop: 04/15/25 08:59 Last Admin: 04/18/24 08:48 Dose: 60 mg Levothyroxine Sodium (Levothyroxine 112 Mcg Tablet) 112 mcg PO DAILY.0630 [facility] Stop: 04/15/25 06:29 Last Admin: 04/18/24 06:28 Dose: 112 mcg Montelukast Sodium (Montelukast 10 Mg Tablet) 10 mg PO QHS [facility] Stop: 04/14/25 21:59 Last Admin: 04/17/24 22:26 Dose: 10 mg Ondansetron HCl (Ondansetron 4 Mg/2 Ml Vial) 4 mg IV-PUSH Q8H PRN PRN Reason: Nausea And Vomiting Stop: 04/14/25 16:23 Oxycodone/Acetaminophen (Oxycodone/Acetaminophen 5-325 Mg Tablet) 1 tab PO Q4H PRN PRN Reason: Pain Scale 4 - 7 Potassium Chloride (Potassium Chloride Er 20 Meq Tab.Er.Prt) 20 meq PO BID [facility] Stop: 04/14/25 20:59 Last Admin: 04/18/24 08:48 Dose: 20 meq Potassium Phos/Sodium Phos (Sodium, Potassium Phosphates 1 Each Powd.Pack) 1 each PO TID.PC.HS [facility] Stop: 04/16/25 15:59 Last Admin: 04/18/24 08:48 Dose: 1 each Rivaroxaban (Rivaroxaban 10 Mg Tablet) 10 mg PO DAILY [facility] Stop: 04/15/25 08:59 Last Admin: 04/18/24 08:48 Dose: 10 mg Saccharomyces Boulardii (Saccharomyces Boulardii 250 Mg Capsule) 250 mg PO BID [facility] Stop: 04/16/25 09:29 Last Admin: 04/18/24 08:48 Dose: 250 mg Sodium Chloride (Sodium Chloride 0.9 % 10 Ml Syringe) 0 ml IV-PUSH PRN PRN PRN Reason: Flush Stop: 04/14/25 10:35 Last Admin: 04/16/24 09:50 Dose: 10 ml Sodium Chloride (Sodium Chloride 0.9 % 10 Ml Syringe) 0 ml IV-PUSH QSHIFT [facility]TH[facility] Stop: 04/14/25 21:59 Last Admin: 04/18/24 06:52 Dose: Not Given Vitamin A/Vitamin D (Vitamin A & D Oint 113 Gm Tube) 1 applic TOPICAL PRN PRN PRN Reason: rash Stop: 04/15/25 10:31 Allergies adhesive tape Allergy (Unknown, Verified 04/14/24 10:36) rash ibuprofen (Motrin) Allergy (Unknown, Verified 04/14/24 10:36) Unknown Reaction pregabalin (From Lyrica) Allergy (Unknown, Verified 04/14/24 10:36) Confusion, CONFUSIONAL STATE ramipril Allergy (Verified 04/14/24 10:36) Cough Results - Nephrology Labs 04/18/24 06:57 04/18/24 06:57 Labs: 04/17/24 04/17/24 04/18/24 11:50 21:00 06:57 BUN 5 L 7 5 L Creatinine 1.02 0.90 0.95 Phosphorus 2.1 L Albumin 3.3 L 3.2 L Radiology Impressions Impressions - last 24 hours: Any impression(s) listed above is documentation that was entered by the reading physician into a diagnostic report(s) for Katarina Camara. I have reviewed the report(s) and am incorporating any findings in the treatment plan of this patient where applicable. A&P - Nephrology Assessment/Plan (1) Acute kidney injury: Assessment/Problem Details: Acute kidney injury likely prerenal from deplete intravascular volume and low blood pressure at presentation. Blood pressure in the emergency room was 102/51. UA is benign (2) Hypokalemia: Assessment/Problem Details: This is likely related to GI potassium loss in addition to diuretics. Patient presented with a potassium of 2.0 mmol/L. Currently home diuretics are on hold (3) Hyponatremia: Assessment/Problem Details: This is likely from deplete intravascular volume. Serum sodium level improved with intravascular volume expansion (4) Dehydration: Assessment/Problem Details: Patient presented with syncope from low blood pressure. Patient has been on diuretics and has been having diarrhea with reduced oral intake. Blood pressureimproved with intravascular volume expansion (5) Metabolic alkalosis: Assessment/Problem Details: Patient might have baseline metabolic alkalosis compensating for respiratory acidosis from COPD. Worsening metabolic alkalosis likely from contraction. Serum bicarb level improved with intravascular volume expansion Plan * Kidney function improved with intravascular volume expansion. Blood pressure remains borderline low. * Continue oral potassium supplement. Will continue to monitor potassium level and replace as needed. * Will continue to monitor electrolytes and replace as needed * Continue to hold home diuretics Lasix and indapamide due to borderline low blood pressure. No peripheral edema. Okay to continue carvedilol. Continue to monitor blood pressure * Check CBC along with renal function panel in a.m. Renal team will sign off the case Patient can be discharged from nephrology standpoint. Discharge the patient offhome diuretics. Patient needs follow-up with her PCP with repeated renal function panel to decide about resuming diuretics. Documented By: Roberto Carlos Mohr MD 04/18/24 1051 Signed By: <Electronically signed by Roberto Carlos Mohr MD> 04/18/24 1052 [facility] Work Phone: [phone]) 716-587502-15-2025 [place] [address] Discharge Summary Signed Patient: Katarina Camara MR#: [id number] : 1945 Acct:[id number] Age/Sex: 78 / F Adm Date: 5 Loc: Room: [address] [place] [address]: Kb Tavares MD Copies to: MD Wesley Lanza,DO~ Providers Date of Discharge: 04/18/24 Discharging Provider: Kb Tavares Primary Care Provider: Wesley Tena Consults: 04/14/24 16:24 Consult to Occupational Therapy Routine Comment: Physician Instructions: Consult to OT for:: Evaluation and Treat Consult to Physical Therapy Routine Comment: Physician Instructions: Consult to PT for:: Evaluation and Treat 04/15/24 09:51 Consult to Nephrology Routine Comment: Consulting Provider: Roberto Carlos Mohr Has Provider Been Notified: Yes Date of Notification: 04/15/24 Time of Notification: 09:58 Reason for Consult: Hyper/Hypo Kalemia Discharge Diagnosis (1) Acute kidney injury: (2) Hypokalemia: (3) Hyponatremia: (4) Dehydration: (5) Metabolic alkalosis: Final Diagnosis Final Discharge Diagnosis: Syncope in setting of dehydration with prerenal CELSA hyponatremia and severe hypokalemia Summary Hospital Course Hospital course: (1) Dehydration: (2) Syncope: (3) Hypokalemia: (4) Secondary hyperparathyroidism: (5) Hypertensive chronic kidney disease with stage 1 through stage 4 chronic kidney disease, or unspecified chronic kidney disease: (6) CKD (chronic kidney disease) stage 3, GFR 30-59 ml/min: This is a 78-year-old female with significant past medical history of hypertension, hyperlipidemia,CAD status post stent placement on January 2023, hypothyroidism, morbid obesity, vitamin D deficiency, recent admission in outside hospital for subarachnoid hemorrhage and was discharged to [facility] facility from where she was sent home few days ago. 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 She presented with a chief complaints of syncope. Patient mentions that she was trying to get up from the wheelchair and shepassed out. She denies any nausea or vomiting or abdominal pain. She mentions is not having any loose stools. Lab work shows no leukocytosis, sodium of 130, potassium of 2, chloride of 77, creatinineof 1.7 troponin of 81, BNP 171 urinalysis not suggestive of UTI Chest x-ray shows no acute findings, EKG shows normal sinus rhythm with some repeat orthostatic vitals was negative. Her hypokalemia was persistent even after replacing potassium. Her repeat phosphorus was 2.1 and was replaced. Yesterday evening her potassium numbers were normal and her numbers today morning was also within normal limit. I recommend to hold on her Lasix and indapamide until results are PCP and continuerest of her medications. I also added Florastor to help improve her GI laith. She is recommended to have outpatient BMP in 3 to 5 days and follow-up with her PCP and clinical laboratory director. Condition Condition at Discharge: Stable Time Spent with Patient Time spent providing/coordinating discharge services (# min): 37 Discharge Plan Discharge Plan Patient Disposition: Senior Living Facility Prescriptions: New Saccharomyces boulardii 250 mg Capsule 250 mg PO DAILY 30 Days Qty: 30 0RF Continued alendronate 70 mg tablet 70 mg PO FR@0900 montelukast 10 mg tablet 10 mg PO QHS levothyroxine 112 mcg tablet 112 mcg PO QAM rosuvastatin 20 mg tablet 20 mg PO QHS duloxetine [Cymbalta] 60 mg capsule,delayed release(DR/EC) 60 mg PO DAILY aspirin [Adult Low Dose Aspirin] 81 mg tablet,delayed release (DR/EC) 81 mg PO DAILY acetaminophen 500 mg tablet 500 mg PO Q6HR PRN (Reason: pain) carvedilol 3.125 mg tablet 3.125 mg PO BID Rx Instructions: must administer with a meal/food triamcinolone acetonide 0.1 % cream 1 applic topical TID vancomycin 125 mg capsule 125 mg PO TID Patient Comments: through 04/15/24 albuterol sulfate 90 mcg/actuation HFA aerosol inhaler 1 puff inhalation Q6HR PRN (Reason: shortness of breath or wheezing) potassium chloride 20 mEq tablet extended release 20 meq PO BID Held furosemide [Lasix] 40 mg tablet 40 mg PO BID Hold Instructions: Resume on 04/25/24. Please hold Lasix until seen by your PCP/clinical laboratory director. indapamide 1.25 mg tablet 1.25 mg PO DAILY Hold Instructions: Resume on 04/25/24. Please hold indapamide until seen by your PCP/clinical laboratory director. Other Ambulatory Orders: Basic Metabolic Panel (Routine) Timeframe: 3 Days Location: Determined by Patient Ordered By: Kb Tavares Continuity of Care Document Health Concerns: A [facility] screening has identified you as FRAIL or AT RISK FOR FRAILTY. This puts you at a higher risk for infection, illness, falls, and other injuries. Here are four ways to help you reduce your risk of frailty: 1. IDENTIFY EARLY SIGNS OF FRAILTY ? Discuss contributing factors and concerns with your doctor 2. BE ACTIVE ? Walking and light strengthening exercises will help reduce weakness 3. EAT WELL ? Aim for three healthy meals a day that are high in protein 4. THINK POSITIVE ? Keep your mind active by being sociable and continuing to learn References: Stay Strong: Four Ways to Beat the Frailty Risk [email or web address] Exam Physical Exam Vital Signs: Temp Pulse Resp BP Pulse Ox O2 Del Method 97.7 F 81 18 131/79 96 Room Air 04/18/24 08:00 04/18/24 08:00 04/18/24 08:00 04/18/24 08:00 04/18/24 08:00 04/18/24 08:00 Narrative: General: Awake alert, no acute distress HEENT: head atraumatic, normocephalic, moist mucous membranes Neck: supple no masses, no lymphadenopathy CVS: regular rate and rhythm, no murmurs or gallops Respiratory: clear to auscultation bilaterally, no wheezing or crackles, symmetric expansion GI: soft, nondistended, nontender, positive bowel sounds with no organomegaly Extremity: moves all extremities, no restrictions of movements, no calf tenderness Neuro: AOx3, CN II-VII intact. Moves all extremities in all planes of motion. Skin: intact no rashes or lesions Diagnostic Studies Completed and Pending Studies Pending studies at discharge: 04/19/24 05:00 Complete Blood Count Auto Diff IN AM 04/20/24 05:00 Complete Blood Count Auto Diff IN AM 04/21/24 05:00 Complete Blood Count Auto Diff IN AM 04/22/24 05:00 Complete Blood Count Auto Diff IN AM 04/23/24 05:00 Complete Blood Count Auto Diff IN AM 04/24/24 05:00 Complete Blood Count Auto Diff IN AM Labs on day of discharge: 04/18/24 06:57: Corrected WBC 5.3, Uncorrected WBC Count 5.3, RBC 4.69, Hgb 14.4, Hct 43.9, MCV 93.4, MCH 30.7, MCHC 32.9, RDW 15.1, Plt Count 146 L, MPV 8.6, Neut % (Auto) 57.3, Lymph % (Auto) 24.6,Emmons % (Auto) 11.2, Eos % (Auto) 5.7, Baso % (Auto) 1.2, Nucleat RBC Rel Count 0.3, Neut # (Auto) 3.1, Lymph # (Auto) 1.3, Emmons # (Auto) 0.6, Eos # (Auto) 0.3, Baso # (Auto) 0.1, PHA Creatinine Clear57.68, Sodium 140, Potassium 3.9, Chloride 108 H, Carbon Dioxide 22.9, Anion Gap 13.0, BUN 5 L, Creatinine 0.95, Est GFR (CKD-EPI) > 60.0, Glucose 100, Calcium 8.3 L, Total Bilirubin 1.0, AST 24, ALT 14, Alkaline Phosphatase 67, Total Protein 5.1 L, Albumin 3.2 L, Globulin 1.9, Albumin/Globulin Ratio 1.7 04/17/24 21:00: PHA Creatinine Clear 60.68, Sodium 136, Potassium 3.9, Chloride 107, Carbon Krnblhe54.6, Anion Gap 6.3, BUN 7, Creatinine 0.90, Est GFR (CKD- EPI) > 60.0, Glucose 97, Calcium 8.1 L 04/17/24 11:50: Corrected WBC 4.9, Uncorrected WBC Count 4.9, RBC 4.58, Hgb 14.2, Hct 42.5, MCV 92.7, MCH 30.9, MCHC 33.4, RDW 15.2, Plt Count 170, MPV 9.3, Neut % (Auto) 72.4, Lymph % (Auto) 16.5, Emmons % (Auto) 6.0, Eos % (Auto) 4.2, Baso % (Auto) 0.9, Nucleat RBC Rel Count 0.2, Neut # (Auto) 3.6,Lymph # (Auto) 0.8 L, Emmons # (Auto) 0.3, Eos # (Auto) 0.2, Baso # (Auto) 0.0, PHA Creatinine Clear 53.54, Sodium 138, Potassium 3.4 L, Chloride 104, Carbon Dioxide 30.3, Anion Gap 7.1, BUN 5 L, Creatinine 1.02, Est GFR (CKD-EPI) 57.015, Glucose 168 H, Calcium 8.2 L, Phosphorus 2.1 L, Total Bilirubin 1.0, AST 32, ALT 17, Alkaline Phosphatase 63, Total Protein 5.3 L, Albumin 3.3 L, Globulin 2.0, Alb umin/Globulin Ratio 1.7 Documented By: Kb Tavares MD 04/18/241124 Signed By: 04/18/241128 [facility]02-15-2025 [place] [address] Nephrology Progress Note Signed Patient: Katarina Camara MR#: [id number] : 1945 Acct:[id number] Age/Sex: 78 / F Adm Date: 5 Loc: Room: [address] [place] [address] Type: ADM IN Attending Dr: Kb Tavares MD Copies to: ~ Date of Service: 04/18/2024 Subjective Subjective Narrative: Patient this is 78-year-old female patient with past medical history of hypertension, hyperlipidemia, chronic disease status post stent placement last year, hypothyroidism, morbid obesity, recent subarachnoid hemorrhage. Patient was sent from [facility] to [facility] for syncopal episode. In the emergency room she was found to be hypotensive above revealed hyponatremia with sodium 130mmol/L, hypokalemia with initial potassium level 2.0, acute kidney injury with creatinine up to 1.7 mg deciliter from baseline around 1.0, serum bicarb 45. Patient had recent admission of C. difficile colitis and she she just finished oral vancomycin course. Patient continues to have diarrhea I reviewed the patient's home medications. She is on indapamide and Lasix for hypertension and volume management.. Patient follows with the cardiology clinicDr. Calloway. Patient was given 2 L of normal saline with improvement in blood pressure. Potassium was replaced with oral and IV KCl. Repeated lab this morning showed creatinine 1.46 mg deciliter, potassium 2.7 mmol/L, bicarb 27.8 mmol/L and sodium 134 mmol/L. Patient says she is feeling better. Does not feel dizziness. Blood pressure monisha encounter 109/72 Patient said that she continues to have diarrhea. She had 3 BM so far today. Denied cramps. No chest pain. No shortness of breath. She is currently on room air. Interval history : Patient was seen and examined in her room. She is awake alert oriented x 3. Blood pressure is well-controlled. Currently off IV fluid Repeated lab this morning showed better creatinine 0.95 mg deciliter, potassium remains is better at 3.39 mmol/L . Patient is currently on oral KCl 20 mill equivalent p.o. twice daily She continues to have 1 to twice daily diarrhea bowel movement, recent C. difficile. She is able toeat regular food without nausea or vomiting. Denied cough. No shortness of breath. No dizziness. Exam Physical Exam Vital Signs: Temp Pulse Resp BP Pulse Ox O2 Del Method 97.7 F 81 18 131/79 96 Room Air 04/18/24 08:00 04/18/24 08:00 04/18/24 08:00 04/18/24 08:00 04/18/24 08:00 04/18/24 08:00 Narrative: General: No acute distress Head :atraumatic normocephalic Eyes: PERRLA. Neck: no JVD no bruit. Heart: S1-S2. RRR Respiratory: Clear to auscultation. No wheezing. No crackles Abdomen: Soft, positive bowel sounds,no tenderness. Neurology: Awake alert oriented x3. No focal deficits Extremity. No cyanosis. No edema Skin: No skin rash Objective Intake and Output I&O: Intake & Output 04/15/24 04/16/24 04/17/24 04/18/24 23:59 23:59 23:59 23:59 Intake Total 3090 / 3090 3470 / 3470 3220 / 3220 1200 / 1200 Balance 3090 / 3090 3470 / 3470 3220 / 3220 1200 / 1200 Weight 90.9 kg 91.4 kg 95.2 kg 95.8 kg Meds and Allergies Meds: Active Medications Acetaminophen (Acetaminophen 500 Mg Tablet) 500 mg PO Q6HR PRN PRN Reason: pain Stop: 04/14/25 16:19 Acetaminophen (Acetaminophen 325 Mg Tablet) 650 mg PO Q6HR PRN PRN Reason: Pain Scale 1 - 3 or fever Stop: 04/14/25 16:23 Albuterol (Albuterol Hfa 60 Puff/8 Gram Inhaler) 1 puff INHALATION Q6HR PRN PRN Reason: shortness of breath or wheezing Stop: 04/14/25 16:19 Atorvastatin Calcium (Atorvastatin 40 Mg Tablet) 40 mg PO QHS [facility] Stop: 04/14/25 21:59 Last Admin: 04/17/24 22:26 Dose: 40 mg Carvedilol (Carvedilol 3.125 Mg Tablet) 3.125 mg PO BID.WITH.MEALS MARTHA Stop: 04/14/25 16:59 Last Admin: 04/18/24 08:48 Dose: 3.125 mg Duloxetine HCl (Duloxetine 60 Mg Capsule.Dr) 60 mg PO DAILY MRATHA Stop: 04/15/25 08:59 Last Admin: 04/18/24 08:48 Dose: 60 mg Levothyroxine Sodium (Levothyroxine 112 Mcg Tablet) 112 mcg PO DAILY.0630 [facility] Stop: 04/15/25 06:29 Last Admin: 04/18/24 06:28 Dose: 112 mcg Montelukast Sodium (Montelukast 10 Mg Tablet) 10 mg PO QHS [facility] Stop: 04/14/25 21:59 Last Admin: 04/17/24 22:26 Dose: 10 mg Ondansetron HCl (Ondansetron 4 Mg/2 Ml Vial) 4 mg IV-PUSH Q8H PRN PRN Reason: Nausea And Vomiting Stop: 04/14/25 16:23 Oxycodone/Acetaminophen (Oxycodone/Acetaminophen 5-325 Mg Tablet) 1 tab PO Q4H PRN PRN Reason: Pain Scale 4 - 7 Potassium Chloride (Potassium Chloride Er 20 Meq Tab.Er.Prt) 20 meq PO BID [facility] Stop: 04/14/25 20:59 Last Admin: 04/18/24 08:48 Dose: 20 meq Potassium Phos/Sodium Phos (Sodium, Potassium Phosphates 1 Each Powd.Pack) 1 each PO TID.PC.HS [facility] Stop: 04/16/25 15:59 Last Admin: 04/18/24 08:48 Dose: 1 each Rivaroxaban (Rivaroxaban 10 Mg Tablet) 10 mg PO DAILY [facility] Stop: 04/15/25 08:59 Last Admin: 04/18/24 08:48 Dose: 10 mg Saccharomyces Boulardii (Saccharomyces Boulardii 250 Mg Capsule) 250 mg PO BID MARTHA Stop: 04/16/25 09:29 Last Admin: 04/18/24 08:48 Dose: 250 mg Sodium Chloride (Sodium Chloride 0.9 % 10 Ml Syringe) 0 ml IV-PUSH PRN PRN PRN Reason: Flush Stop: 04/14/25 10:35 Last Admin: 04/16/24 09:50 Dose: 10 ml Sodium Chloride (Sodium Chloride 0.9 % 10 Ml Syringe) 0 ml IV-PUSH QSHIFT MARTHA Stop: 04/14/25 21:59 Last Admin: 04/18/24 06:52 Dose: Not Given Vitamin A/Vitamin D (Vitamin A & D Oint 113 Gm Tube) 1 applic TOPICAL PRN PRN PRN Reason: rash Stop: 04/15/25 10:31 Allergies adhesive tape Allergy (Unknown, Verified 04/14/24 10:36) rash ibuprofen (Motrin) Allergy (Unknown, Verified 04/14/24 10:36) Unknown Reaction pregabalin (From Lyrica) Allergy (Unknown, Verified 04/14/24 10:36) Confusion, CONFUSIONAL STATE ramipril Allergy (Verified 04/14/24 10:36) Cough Results - Nephrology Labs 04/18/24 06:57 04/18/24 06:57 Labs: 04/17/24 04/17/24 04/18/24 11:50 21:00 06:57 BUN 5 L 7 5 L Creatinine 1.02 0.90 0.95 Phosphorus 2.1 L Albumin 3.3 L 3.2 L Radiology Impressions Impressions - last 24 hours: Any impression(s) listed above is documentation that was entered by the reading physician into a diagnostic report(s) for Katarina Camara. I have reviewed the report(s) and am incorporating any findings in the treatment plan of this patient where applicable. A&P - Nephrology Assessment/Plan (1) Acute kidney injury: Assessment/Problem Details: Acute kidney injury likely prerenal from deplete intravascular volume and low blood pressure at presentation. Blood pressure in the emergency room was 102/51. UA is benign (2) Hypokalemia: Assessment/Problem Details: This is likely related to GI potassium loss in addition to diuretics. Patient presented with a potassium of 2.0 mmol/L. Currently home diuretics are on hold (3) Hyponatremia: Assessment/Problem Details: This is likely from deplete intravascular volume. Serum sodium level improved with intravascular volume expansion (4) Dehydration: Assessment/Problem Details: Patient presented with syncope from low blood pressure. Patient has been on diuretics and has been having diarrhea with reduced oral intake. Blood pressureimproved with intravascular volume expansion (5) Metabolic alkalosis: Assessment/Problem Details: Patient might have baseline metabolic alkalosis compensating for respiratory acidosis from COPD. Worsening metabolic alkalosis likely from contraction. Serum bicarb level improved with intravascular volume expansion Plan * Kidney function improved with intravascular volume expansion. Blood pressure remains borderline low. * Continue oral potassium supplement. Will continue to monitor potassium level and replace as needed. * Will continue to monitor electrolytes and replace as needed * Continue to hold home diuretics Lasix and indapamide due to borderline low blood pressure. No peripheral edema. Okay to continue carvedilol. Continue to monitor blood pressure * Check CBC along with renal function panel in a.m. Renal team will sign off the case Patient can be discharged from nephrology standpoint. Discharge the patient offhome diuretics. Patient needs follow-up with her PCP with repeated renal function panel to decide about resuming diuretics. Documented By: Roberto Carlos Mohr MD 04/18/241050 Signed By: 04/18/24 1052 [facility]02-14-2025 Progress note Author Kb Tavares [facility] Note Date/Time April 17, 2024 2:07pm [facility] ENTER [address] [place] [address] Hospitalist Progress Note Signed Patient: Katarina Camara MR#: [id number] : 1945 Acct:[id number] Age/Sex: 78 / F Adm Date: 5 Loc: Room: [address] [place] [address] Type: ADM IN Attending Dr: Kb Tavares MD Copies to: ~ Date of Service: 04/17/2024 Subjective Subjective Narrative: Patient was having her physical therapy done and was tolerating it well. Deniesany complaints. Potassium was 3.4 this morning with sodium of 138 and phosphorus of 2.1. Exam Physical Exam Vital Signs: Temp Pulse Resp BP Pulse Ox O2 Del Method 97.7 F 82 20 92/67 L 93 L Room Air 04/17/24 12:00 04/17/24 12:04/17/24 12:04/17/24 12:04/17/24 12:00 04/17/24 12:00 Narrative: General: Awake alert, no acute distress HEENT: head atraumatic, normocephalic, moist mucous membranes Neck: supple no masses, no lymphadenopathy CVS: regular rate and rhythm, no murmurs or gallops Respiratory: clear to auscultation bilaterally, no wheezing or crackles, symmetric expansion GI: soft, nondistended, nontender, positive bowel sounds with no organomegaly Extremity: moves all extremities, no restrictions of movements, no calf tenderness Neuro: AOx3, CN II-VII intact. Moves all extremities in all planes of motion. Skin: intact no rashes or lesions Objective Lab Results 04/17/24 11:50 04/17/24 11:50 Meds Allergies and Active Meds Allergies adhesive tape Allergy (Unknown, Verified 04/14/24 10:36) rash ibuprofen (Motrin) Allergy (Unknown, Verified 04/14/24 10:36) Unknown Reaction pregabalin (From Lyrica) Allergy (Unknown, Verified 04/14/24 10:36) Confusion, CONFUSIONAL STATE ramipril Allergy (Verified 04/14/24 10:36) Cough Active Meds: Active Medications Generic Name Dose Route Start Last Admin Trade Name Freq PRN Reason Stop Dose Admin Acetaminophen 500 mg 04/14/24 16:20 Acetaminophen 500 Mg Tablet PO 04/14/25 16:19 Q6HR PRN pain Acetaminophen 650 mg 04/14/24 16:24 Acetaminophen 325 Mg Tablet PO 04/14/25 16:23 Q6HR PRN Pain Scale 1 - 3 or fever Albuterol 1 puff 04/14/24 16:20 Albuterol Hfa 60 Puff/8 Gram Inhaler INHALATION 04/14/25 16:19 Q6HR PRN shortness of breath or wheezing Atorvastatin Calcium 40 mg 04/14/24 22:00 04/16/24 22:22 Atorvastatin 40 Mg Tablet PO 04/14/25 21:59 40 mg QHS MARTHA Administration Carvedilol 3.125 mg 04/14/24 17:00 04/17/24 08:22 Carvedilol 3.125 Mg Tablet PO 04/14/25 16:59 3.125 mg BID.WITH.MEALS MARTHA Administration Duloxetine HCl 60 mg 04/15/24 09:00 04/17/24 08:22 Duloxetine 60 Mg Capsule.Dr PO 04/15/25 08:59 60 mg DAILY MARTHA Administration Potassium Chloride 20 meq/ 260 mls @ 130 mls/hr 04/17/24 13:15 04/17/24 13:34 Sodium Chloride IV 04/17/24 19:14 130 mls/hr Q2H MARTHA Administration Levothyroxine Sodium 112 mcg 04/15/24 06:30 04/17/24 05:57 Levothyroxine 112 Mcg Tablet PO 04/15/25 06:29 112 mcg DAILY.0630 MARTHA Administration Montelukast Sodium 10 mg 04/14/24 22:00 04/16/24 22:22 Montelukast 10 Mg Tablet PO 04/14/25 21:59 10 mg QHS MARTHA Administration Ondansetron HCl 4 mg 04/14/24 16:24 Ondansetron 4 Mg/2 Ml Vial IV-PUSH 04/14/25 16:23 Q8H PRN Nausea And Vomiting Oxycodone/Acetaminophen 1 tab 04/14/24 16:24 Oxycodone/Acetaminophen 5-325 Mg Tablet PO Q4H PRN Pain Scale 4 - 7 Potassium Chloride 20 meq 04/14/24 21:00 04/17/24 08:22 Potassium Chloride Er 20 Meq Tab.Er.Prt PO 04/14/25 20:59 20 meq BID MARTHA Administration Potassium Phos/Sodium Phos 1 each 04/16/24 16:00 04/17/24 12:58 Sodium, Potassium Phosphates 1 Each Powd.Pack PO 04/16/25 15:59 1 each TID.PC.HS MARTHA Administration Rivaroxaban 10 mg 04/15/24 09:00 04/17/24 08:22 Rivaroxaban 10 Mg Tablet PO 04/15/25 08:59 10 mg DAILY MARTHA Administration Saccharomyces Boulardii 250 mg 04/16/24 09:30 04/17/24 08:22 Saccharomyces Boulardii 250 Mg Capsule PO 04/16/25 09:29 250 mg BID MARTHA Administration Sodium Chloride 0 ml 04/14/24 10:36 04/16/24 09:50 Sodium Chloride 0.9 % 10 Ml Syringe IV-PUSH 04/14/25 10:35 10 ml PRN PRN Administration Flush Sodium Chloride 0 ml 04/14/24 22:00 04/17/24 13:34 Sodium Chloride 0.9 % 10 Ml Syringe IV-PUSH 04/14/25 21:59 10 ml QSHIFT MARTHA Administration Vitamin A/Vitamin D 1 applic 04/15/24 10:32 Vitamin A & D Oint 113 Gm Tube TOPICAL 04/15/25 10:31 PRN PRN rash A&P - Hospitalist Assessment/Plan (1) Dehydration: (2) Syncope: (3) Hypokalemia: (4) Secondary hyperparathyroidism: (5) Hypertensive chronic kidney disease with stage 1 through stage 4 chronic kidney disease, or unspecified chronic kidney disease: (6) CKD (chronic kidney disease) stage 3, GFR 30-59 ml/min: Plan This is a 78-year-old female with significant past medical history of hypertension, hyperlipidemia, CAD status post stent placement on January 2023, hypothyroidism, morbid obesity, vitamin D deficiency, recent admission in outside hospital for subarachnoid hemorrhage and was discharged to care home facility from where she was sent home few days ago. 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 She presented with a chief complaints of syncope. Patient mentions that she was trying to get up from the wheelchair and she passed out. She denies any nausea or vomiting or abdominal pain. She mentions is not having any loose stools. Lab work shows no leukocytosis, sodium of 130, potassium of 2, chloride of 77, creatinine of 1.7 troponin of 81, BNP 171 urinalysis not suggestive of UTI Chest x-ray shows no acute findings, EKG shows normal sinus rhythm with some PVC orthostatic vitals done again was negative. Assessment-hypokalemia likely in setting of GI loss and/or medication Plan: -Admit to regular nursing floor -Hold on Lasix and indapamide -Potassium and phosphorus replaced -Follow-up morning labs -Continue POA medications-Lipitor, carvedilol, Cymbalta, levothyroxine, Singulair, potassium -Florastor also added to improve her GI laith in setting of recent C. difficile infection -Patient mentions aspirin was discontinued recently after she had subarachnoid hemorrhage. -Nephrology also consulted-appreciate recommendation Heart healthy diet -Full code Documented By: Kb Tavares MD 04/17/24 7593 Signed By: <Electronically signed by Kb Tavares MD> 04/17/24 4849 [facility] Work Phone: [phone]) 893-253602-14-2025 [place] [address] Hospitalist Progress Note Signed Patient: Katarina Camara MR#: [id number] : 1945 Acct:[id number] Age/Sex: 78 / F Adm Date: Loc: Room: [address] [place] [address] Type: ADM IN Attending Dr: Kb Tavares MD Copies to: ~ Date of Service: 04/17/2024 Subjective Subjective Narrative: Patient was having her physical therapy done and was tolerating it well. Deniesany complaints. Potassium was 3.4 this morning with sodium of 138 and phosphorus of 2.1. Exam Physical Exam Vital Signs: Temp Pulse Resp BP Pulse Ox O2 Del Method 97.7 F 82 20 92/67 L 93 L Room Air 04/17/24 12:00 04/17/24 12:00 04/17/24 12:00 04/17/24 12:00 04/17/24 12:00 04/17/24 12:00 Narrative: General: Awake alert, no acute distress HEENT: head atraumatic, normocephalic, moist mucous membranes Neck: supple no masses, no lymphadenopathy CVS: regular rate and rhythm, no murmurs or gallops Respiratory: clear to auscultation bilaterally, no wheezing or crackles, symmetric expansion GI: soft, nondistended, nontender, positive bowel sounds with no organomegaly Extremity: moves all extremities, no restrictions of movements, no calf tenderness Neuro: AOx3, CN II-VII intact. Moves all extremities in all planes of motion. Skin: intact no rashes or lesions Objective Lab Results 04/17/24 11:50 04/17/24 11:50 Meds Allergies and Active Meds Allergies adhesive tape Allergy (Unknown, Verified 04/14/24 10:36) rash ibuprofen (Motrin) Allergy (Unknown, Verified 04/14/24 10:36) Unknown Reaction pregabalin (From Lyrica) Allergy (Unknown, Verified 04/14/24 10:36) Confusion, CONFUSIONAL STATE ramipril Allergy (Verified 04/14/24 10:36) Cough Active Meds: Active Medications Generic Name Dose Route Start Last Admin Trade Name Freq PRN Reason Stop Dose Admin Acetaminophen 500 mg 04/14/24 16:20 Acetaminophen 500 Mg Tablet PO 04/14/25 16:19 Q6HR PRN pain Acetaminophen 650 mg 04/14/24 16:24 Acetaminophen 325 Mg Tablet PO 04/14/25 16:23 Q6HR PRN Pain Scale 1 - 3 or fever Albuterol 1 puff 04/14/24 16:20 Albuterol Hfa 60 Puff/8 Gram Inhaler INHALATION 04/14/25 16:19 Q6HR PRN shortness of breath or wheezing Atorvastatin Calcium 40 mg 04/14/24 22:00 04/16/24 22:22 Atorvastatin 40 Mg Tablet PO 04/14/25 21:59 40 mg QHS MARTHA Administration Carvedilol 3.125 mg 04/14/24 17:00 04/17/24 08:22 Carvedilol 3.125 Mg Tablet PO 04/14/25 16:59 3.125 mg BID.WITH.MEALS MARTHA Administration Duloxetine HCl 60 mg 04/15/24 09:00 04/17/24 08:22 Duloxetine 60 Mg Capsule.Dr PO 04/15/25 08:59 60 mg DAILY MARTHA Administration Potassium Chloride 20 meq/ 260 mls @ 130 mls/hr 04/17/24 13:15 04/17/24 13:34 Sodium Chloride IV 04/17/24 19:14 130 mls/hr Q2H MARTHA Administration Levothyroxine Sodium 112 mcg 04/15/24 06:30 04/17/24 05:57 Levothyroxine 112 Mcg Tablet PO 04/15/25 06:29 112 mcg DAILY.0630 MARTHA Administration Montelukast Sodium 10 mg 04/14/24 22:00 04/16/24 22:22 Montelukast 10 Mg Tablet PO 04/14/25 21:59 10 mg QHS MARTHA Administration Ondansetron HCl 4 mg 04/14/24 16:24 Ondansetron 4 Mg/2 Ml Vial IV-PUSH 04/14/25 16:23 Q8H PRN Nausea And Vomiting Oxycodone/Acetaminophen 1 tab 04/14/24 16:24 Oxycodone/Acetaminophen 5-325 Mg Tablet PO Q4H PRN Pain Scale 4 - 7 Potassium Chloride 20 meq 04/14/24 21:00 04/17/24 08:22 Potassium Chloride Er 20 Meq Tab.Er.Prt PO 04/14/25 20:59 20 meq BID MARTHA Administration Potassium Phos/Sodium Phos 1 each 04/16/24 16:00 04/17/24 12:58 Sodium, Potassium Phosphates 1 Each Powd.Pack PO 04/16/25 15:59 1 each TID.PC.HS MARTHA Administration Rivaroxaban 10 mg 04/15/24 09:00 04/17/24 08:22 Rivaroxaban 10 Mg Tablet PO 04/15/25 08:59 10 mg DAILY MARTHA Administration Saccharomyces Boulardii 250 mg 04/16/24 09:30 04/17/24 08:22 Saccharomyces Boulardii 250 Mg Capsule PO 04/16/25 09:29 250 mg BID MARTHA Administration Sodium Chloride 0 ml 04/14/24 10:36 04/16/24 09:50 Sodium Chloride 0.9 % 10 Ml Syringe IV-PUSH 04/14/25 10:35 10 ml PRN PRN Administration Flush Sodium Chloride 0 ml 04/14/24 22:00 04/17/24 13:34 Sodium Chloride 0.9 % 10 Ml Syringe IV-PUSH 04/14/25 21:59 10 ml QSHIFT MARTHA Administration Vitamin A/Vitamin D 1 applic 04/15/24 10:32 Vitamin A & D Oint 113 Gm Tube TOPICAL 04/15/25 10:31 PRN PRN rash A&P - Hospitalist Assessment/Plan (1) Dehydration: (2) Syncope: (3) Hypokalemia: (4) Secondary hyperparathyroidism: (5) Hypertensive chronic kidney disease with stage 1 through stage 4 chronic kidney disease, or unspecified chronic kidney disease: (6) CKD (chronic kidney disease) stage 3, GFR 30-59 ml/min: Plan This is a 78-year-old female with significant past medical history of hypertension, hyperlipidemia,CAD status post stent placement on January 2023, hypothyroidism, morbid obesity, vitamin D deficiency, recent admission in outside hospital for subarachnoid hemorrhage and was discharged to skilled n ursing facility from where she was sent home few days ago. 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 She presented with a chief complaints of syncope. Patient mentions that she was trying to get up from the wheelchair and shepassed out. She denies any nausea or vomiting or abdominal pain. She mentions is not having any loose stools. Lab work shows no leukocytosis, sodium of 130, potassium of 2, chloride of 77, creatinineof 1.7 troponin of 81, BNP 171 urinalysis not suggestive of UTI Chest x-ray shows no acute findings, EKG shows normal sinus rhythm with some PVC orthostatic vitals done again was negative. Assessment-hypokalemia likely in setting of GI loss and/or medication Plan: -Admit to regular nursing floor -Hold on Lasix and indapamide -Potassium and phosphorus replaced -Follow-up morning labs -Continue POA medications-Lipitor, carvedilol, Cymbalta, levothyroxine, Singulair, potassium -Florastor also added to improve her GI laith in setting of recent C. difficile infection -Patient mentions aspirin was discontinued recently after she had subarachnoid hemorrhage. -Nephrology also consulted-appreciate recommendation Heart healthy diet -Full code Documented By: Kb Tavares MD 04/17/241404 Signed By: 04/17/24 1407 [facility]02-14-2025 Progress note Author Roberto Carlos Mohr [facility] Note Date/Time April 17, 2024 11:48am [facility] ENTER [address] [place] [address] Nephrology Progress Note Signed Patient: Katarina Camara MR#: [id number] : 1945 Acct:[id number] Age/Sex: 78 / F Adm Date: 5 Loc: Room: [address] [place] [address] Type: ADM IN Attending Dr: Kb Tavares MD Copies to: ~ Date of Service: 04/17/2024 Subjective Subjective Narrative: Patient this is 78-year-old female patient with past medical history of hypertension, hyperlipidemia, chronic disease status post stent placement last year, hypothyroidism, morbid obesity, recent subarachnoid hemorrhage. Patient was sent from [facility] to [facility] for syncopal episode. In the emergency room she was found to be hypotensive above revealed hyponatremia with sodium 130mmol/L, hypokalemia with initial potassium level 2.0, acute kidney injury with creatinine up to 1.7 mg deciliter from baseline around 1.0, serum bicarb 45. Patient had recent admission of C. difficile colitis and she she just finished oral vancomycin course. Patient continues to have diarrhea I reviewed the patient's home medications. She is on indapamide and Lasix for hypertension and volume management.. Patient follows with the cardiology clinicDr. Calloway. Patient was given 2 L of normal saline with improvement in blood pressure. Potassium was replaced with oral and IV KCl. Repeated lab this morning showed creatinine 1.46 mg deciliter, potassium 2.7 mmol/L, bicarb 27.8 mmol/L and sodium 134 mmol/L. Patient says she is feeling better. Does not feel dizziness. Blood pressure monisha encounter 109/72 Patient said that she continues to have diarrhea. She had 3 BM so far today. Denied cramps. No chest pain. No shortness of breath. She is currently on room air. Interval history : Patient was seen and examined in her room. Patient continues to feel better. She is awake alert oriented x 3. Blood pressure remains borderline low. Currently off IV fluid normal saline 100 cc/h. Repeated lab this morning showedbetter creatinine at 1.1, serum bicarb is better at 33, potassium remains is better at 3.3 mmol/L after IV and oral replacement. Patient is currently on oral KCl 20 mill equivalent p.o. twice daily Patient said diarrhea has improved. She is able to eat regular food without nausea or vomiting. Denied cough. No shortness of breath. No dizziness. Exam Physical Exam Vital Signs: Temp Pulse Resp BP Pulse Ox O2 Del Method 97.7 F 91 20 107/50 L 99 Room Air 04/17/24 08:00 04/17/24 08:00 04/17/24 08:00 04/17/24 08:00 04/17/24 08:00 04/17/24 08:00 Narrative: General: No acute distress Head :atraumatic normocephalic Eyes: PERRLA. Neck: no JVD no bruit. Heart: S1-S2. RRR Respiratory: Clear to auscultation. No wheezing. No crackles Abdomen: Soft, positive bowel sounds,no tenderness. Neurology: Awake alert oriented x3. No focal deficits Extremity. No cyanosis. No edema Skin: No skin rash Objective Intake and Output I&O: Intake & Output 04/14/24 04/15/24 04/16/24 04/17/24 23:59 23:59 23:59 23:59 Intake Total 2280 / 2280 3090 / 3090 3470 / 3470 2200 / 2200 Balance 2280 / 2280 3090 / 3090 3470 / 3470 2200 / 2200 Weight 92 kg 90.9 kg 91.4 kg 95.2 kg Meds and Allergies Meds: Active Medications Acetaminophen (Acetaminophen 500 Mg Tablet) 500 mg PO Q6HR PRN PRN Reason: pain Stop: 04/14/25 16:19 Acetaminophen (Acetaminophen 325 Mg Tablet) 650 mg PO Q6HR PRN PRN Reason: Pain Scale 1 - 3 or fever Stop: 04/14/25 16:23 Albuterol (Albuterol Hfa 60 Puff/8 Gram Inhaler) 1 puff INHALATION Q6HR PRN PRN Reason: shortness of breath or wheezing Stop: 04/14/25 16:19 Atorvastatin Calcium (Atorvastatin 40 Mg Tablet) 40 mg PO QHS [facility] Stop: 04/14/25 21:59 Last Admin: 04/16/24 22:22 Dose: 40 mg Carvedilol (Carvedilol 3.125 Mg Tablet) 3.125 mg PO BID.WITH.MEALS [facility] Stop: 04/14/25 16:59 Last Admin: 04/17/24 08:22 Dose: 3.125 mg Duloxetine HCl (Duloxetine 60 Mg Capsule.Dr) 60 mg PO DAILY [facility] Stop: 04/15/25 08:59 Last Admin: 04/17/24 08:22 Dose: 60 mg Sodium Chloride (0.9% Sodium Chloride 1,000 Ml) 1,000 mls @ 100 mls/hr IV .[id number] Stop: 04/16/25 08:59 Last Admin: 04/17/24 09:36 Dose: 100 mls/hr Levothyroxine Sodium (Levothyroxine 112 Mcg Tablet) 112 mcg PO DAILY.0630 [facility] Stop: 04/15/25 06:29 Last Admin: 04/17/24 05:57 Dose: 112 mcg Montelukast Sodium (Montelukast 10 Mg Tablet) 10 mg PO QHS [facility] Stop: 04/14/25 21:59 Last Admin: 04/16/24 22:22 Dose: 10 mg Ondansetron HCl (Ondansetron 4 Mg/2 Ml Vial) 4 mg IV-PUSH Q8H PRN PRN Reason: Nausea And Vomiting Stop: 04/14/25 16:23 Oxycodone/Acetaminophen (Oxycodone/Acetaminophen 5-325 Mg Tablet) 1 tab PO Q4H PRN PRN Reason: Pain Scale 4 - 7 Potassium Chloride (Potassium Chloride Er 20 Meq Tab.Er.Prt) 20 meq PO BID [facility] Stop: 04/14/25 20:59 Last Admin: 04/17/24 08:22 Dose: 20 meq Potassium Phos/Sodium Phos (Sodium, Potassium Phosphates 1 Each Powd.Pack) 1 each PO TID.PC.HS [facility] Stop: 04/16/25 15:59 Last Admin: 04/17/24 08:22 Dose: 1 each Rivaroxaban (Rivaroxaban 10 Mg Tablet) 10 mg PO DAILY [facility] Stop: 04/15/25 08:59 Last Admin: 04/17/24 08:22 Dose: 10 mg Saccharomyces Boulardii (Saccharomyces Boulardii 250 Mg Capsule) 250 mg PO BID [facility] Stop: 04/16/25 09:29 Last Admin: 04/17/24 08:22 Dose: 250 mg Sodium Chloride (Sodium Chloride 0.9 % 10 Ml Syringe) 0 ml IV-PUSH PRN PRN PRN Reason: Flush Stop: 04/14/25 10:35 Last Admin: 04/16/24 09:50 Dose: 10 ml Sodium Chloride (Sodium Chloride 0.9 % 10 Ml Syringe) 0 ml IV-PUSH QSHIFT [facility] Stop: 04/14/25 21:59 Last Admin: 04/17/24 05:58 Dose: 10 ml Vitamin A/Vitamin D (Vitamin A & D Oint 113 Gm Tube) 1 applic TOPICAL PRN PRN PRN Reason: rash Stop: 04/15/25 10:31 Allergies adhesive tape Allergy (Unknown, Verified 04/14/24 10:36) rash ibuprofen (Motrin) Allergy (Unknown, Verified 04/14/24 10:36) Unknown Reaction pregabalin (From Lyrica) Allergy (Unknown, Verified 04/14/24 10:36) Confusion, CONFUSIONAL STATE ramipril Allergy (Verified 04/14/24 10:36) Cough Results - Nephrology Labs 04/16/24 06:26 04/16/24 16:47 Labs: 04/16/24 16:47 BUN 10 Creatinine 1.19 Radiology Impressions Impressions - last 24 hours: Any impression(s) listed above is documentation that was entered by the reading physician into a diagnostic report(s) for Katarina Stella Camara. I have reviewed the report(s) and am incorporating any findings in the treatment plan of this patient where applicable. A&P - Nephrology Assessment/Plan (1) Acute kidney injury: Assessment/Problem Details: Acute kidney injury likely prerenal from deplete intravascular volume and low blood pressure at presentation. Blood pressure in the emergency room was 102/51. UA is benign (2) Hypokalemia: Assessment/Problem Details: This is likely related to GI potassium loss in addition to diuretics. Patient presented with a potassium of 2.0 mmol/L. Currently home diuretics are on hold (3) Hyponatremia: Assessment/Problem Details: This is likely from deplete intravascular volume. Serum sodium level improved with intravascular volume expansion (4) Dehydration: Assessment/Problem Details: Patient presented with syncope from low blood pressure. Patient has been on diuretics and has been having diarrhea with reduced oral intake. Blood pressureimproved with intravascular volume expansion (5) Metabolic alkalosis: Assessment/Problem Details: Patient might have baseline metabolic alkalosis compensating for respiratory acidosis from COPD. Worsening metabolic alkalosis likely from contraction. Serum bicarb level improved with intravascular volume expansion Plan * Kidney function improved with intravascular volume expansion. Blood pressure remains borderline low. * Will order to stop IV fluid * Continue oral potassium supplement. Will continue to monitor potassium level and replace as needed. * Will continue to monitor electrolytes and replace as needed * Continue to hold home diuretics Lasix and indapamide due to borderline low blood pressure. No peripheral edema. Okay to continue carvedilol. Continue to monitor blood pressure * Check CBC along with renal function panel in a.m. Patient can be discharged from nephrology standpoint. Discharge the patient offhome diuretics. Patient needs follow-up with her PCP with repeated renal function panel to decide about resuming diuretics. Renal team will continue to follow. Call if any question or concern Documented By: Roberto Carlos Mohr MD 04/17/24 5999 Signed By: <Electronically signed by Roberto Carlos Mohr MD> 04/17/24 0438 [facility] Work Phone: [phone]) 977-628202-14-2025 [place] [id number] Nephrology Progress Note Signed Patient: Katarina Camara MR#: [id number] : 1945 Acct:[id number] Age/Sex: 78 / F Adm Date: 5 Loc: 3T Room: [address] [place] [address] Type: ADM IN Attending Dr: Kb Tavares MD Copies to: ~ Date of Service: 04/17/2024 Subjective Subjective Narrative: Patient this is 78-year-old female patient with past medical history of hypertension, hyperlipidemia, chronic disease status post stent placement last year, hypothyroidism, morbid obesity, recent subarachnoid hemorrhage. Patient was sent from [facility] to [facility] for syncopal episode. In the emergency room she was found to be hypotensive above revealed hyponatremia with sodium 130mmol/L, hypokalemia with initial potassium level 2.0, acute kidney injury with creatinine up to 1.7 mg deciliter from baseline around 1.0, serum bicarb 45. Patient had recent admission of C. difficile colitis and she she just finished oral vancomycin course. Patient continues to have diarrhea I reviewed the patient's home medications. She is on indapamide and Lasix for hypertension and volume management.. Patient follows with the cardiology clinicDr. Calloway. Patient was given 2 L of normal saline with improvement in blood pressure. Potassium was replaced with oral and IV KCl. Repeated lab this morning showed creatinine 1.46 mg deciliter, potassium 2.7 mmol/L, bicarb 27.8 mmol/L and sodium 134 mmol/L. Patient says she is feeling better. Does not feel dizziness. Blood pressure monisha encounter 109/72 Patient said that she continues to have diarrhea. She had 3 BM so far today. Denied cramps. No chest pain. No shortness of breath. She is currently on room air. Interval history : Patient was seen and examined in her room. Patient continues to feel better. She is awake alert oriented x 3. Blood pressure remains borderline low. Currently off IV fluid normal saline 100 cc/h. Repeated lab this morning showedbetter creatinine at 1.1, serum bicarb is betterat 33, potassium remains is better at 3.3 mmol/L after IV and oral replacement. Patient is currently on oral KCl 20 mill equivalent p.o. twice daily Patient said diarrhea has improved. She is able to eat regular food without nausea or vomiting. Denied cough. No shortness of breath. No dizziness. Exam Physical Exam Vital Signs: Temp Pulse Resp BP Pulse Ox O2 Del Method 97.7 F 91 20 107/50 L 99 Room Air 04/17/24 08:00 04/17/24 08:00 04/17/24 08:00 04/17/24 08:00 04/17/24 08:00 04/17/24 08:00 Narrative: General: No acute distress Head :atraumatic normocephalic Eyes: PERRLA. Neck: no JVD no bruit. Heart: S1-S2. RRR Respiratory: Clear to auscultation. No wheezing. No crackles Abdomen: Soft, positive bowel sounds,no tenderness. Neurology: Awake alert oriented x3. No focal deficits Extremity. No cyanosis. No edema Skin: No skin rash Objective Intake and Output I&O: Intake & Output 04/14/24 04/15/24 04/16/24 04/17/24 23:59 23:59 23:59 23:59 Intake Total 2280 / 2280 3090 / 3090 3470 / 3470 2200 / 2200 Balance 2280 / 2280 3090 / 3090 3470 / 3470 2200 / 2200 Weight 92 kg 90.9 kg 91.4 kg 95.2 kg Meds and Allergies Meds: Active Medications Acetaminophen (Acetaminophen 500 Mg Tablet) 500 mg PO Q6HR PRN PRN Reason: pain Stop: 04/14/25 16:19 Acetaminophen (Acetaminophen 325 Mg Tablet) 650 mg PO Q6HR PRN PRN Reason: Pain Scale 1 - 3 or fever Stop: 04/14/25 16:23 Albuterol (Albuterol Hfa 60 Puff/8 Gram Inhaler) 1 puff INHALATION Q6HR PRN PRN Reason: shortness of breath or wheezing Stop: 04/14/25 16:19 Atorvastatin Calcium (Atorvastatin 40 Mg Tablet) 40 mg PO QHS [facility] Stop: 04/14/25 21:59 Last Admin: 04/16/24 22:22 Dose: 40 mg Carvedilol (Carvedilol 3.125 Mg Tablet) 3.125 mg PO BID.WITH.MEALS [facility] Stop: 04/14/25 16:59 Last Admin: 04/17/24 08:22 Dose: 3.125 mg Duloxetine HCl (Duloxetine 60 Mg Capsule.Dr) 60 mg PO DAILY [facility] Stop: 04/15/25 08:59 Last Admin: 04/17/24 08:22 Dose: 60 mg Sodium Chloride (0.9% Sodium Chloride 1,000 Ml) 1,000 mls @ 100 mls/hr IV .[id number] Stop: 04/16/25 08:59 Last Admin: 04/17/24 09:36 Dose: 100 mls/hr Levothyroxine Sodium (Levothyroxine 112 Mcg Tablet) 112 mcg PO DAILY.0630 [facility] Stop: 04/15/25 06:29 Last Admin: 04/17/24 05:57 Dose: 112 mcg Montelukast Sodium (Montelukast 10 Mg Tablet) 10 mg PO QHS [facility] Stop: 04/14/25 21:59 Last Admin: 04/16/24 22:22 Dose: 10 mg Ondansetron HCl (Ondansetron 4 Mg/2 Ml Vial) 4 mg IV-PUSH Q8H PRN PRN Reason: Nausea And Vomiting Stop: 04/14/25 16:23 Oxycodone/Acetaminophen (Oxycodone/Acetaminophen 5-325 Mg Tablet) 1 tab PO Q4H PRN PRN Reason: Pain Scale 4 - 7 Potassium Chloride (Potassium Chloride Er 20 Meq Tab.Er.Prt) 20 meq PO BID [facility] Stop: 04/14/25 20:59 Last Admin: 04/17/24 08:22 Dose: 20 meq Potassium Phos/Sodium Phos (Sodium, Potassium Phosphates 1 Each Powd.Pack) 1 each PO TID.PC.HS [facility] Stop: 04/16/25 15:59 Last Admin: 04/17/24 08:22 Dose: 1 each Rivaroxaban (Rivaroxaban 10 Mg Tablet) 10 mg PO DAILY [facility] Stop: 04/15/25 08:59 Last Admin: 04/17/24 08:22 Dose: 10 mg Saccharomyces Boulardii (Saccharomyces Boulardii 250 Mg Capsule) 250 mg PO BID [facility] Stop: 04/16/25 09:29 Last Admin: 04/17/24 08:22 Dose: 250 mg Sodium Chloride (Sodium Chloride 0.9 % 10 Ml Syringe) 0 ml IV-PUSH PRN PRN PRN Reason: Flush Stop: 04/14/25 10:35 Last Admin: 04/16/24 09:50 Dose: 10 ml Sodium Chloride (Sodium Chloride 0.9 % 10 Ml Syringe) 0 ml IV-PUSH QSHIFT [facility] Stop: 04/14/25 21:59 Last Admin: 04/17/24 05:58 Dose: 10 ml Vitamin A/Vitamin D (Vitamin A & D Oint 113 Gm Tube) 1 applic TOPICAL PRN PRN PRN Reason: rash Stop: 04/15/25 10:31 Allergies adhesive tape Allergy (Unknown, Verified 04/14/24 10:36) rash ibuprofen (Motrin) Allergy (Unknown, Verified 04/14/24 10:36) Unknown Reaction pregabalin (From Lyrica) Allergy (Unknown, Verified 04/14/24 10:36) Confusion, CONFUSIONAL STATE ramipril Allergy (Verified 04/14/24 10:36) Cough Results - Nephrology Labs 04/16/24 06:26 04/16/24 16:47 Labs: 04/16/24 16:47 BUN 10 Creatinine 1.19 Radiology Impressions Impressions - last 24 hours: Any impression(s) listed above is documentation that was entered by the reading physician into a diagnostic report(s) for Katarina Camara. I have reviewed the report(s) and am incorporating any findings in the treatment plan of this patient where applicable. A&P - Nephrology Assessment/Plan (1) Acute kidney injury: Assessment/Problem Details: Acute kidney injury likely prerenal from deplete intravascular volume and low blood pressure at presentation. Blood pressure in the emergency room was 102/51. UA is benign (2) Hypokalemia: Assessment/Problem Details: This is likely related to GI potassium loss in addition to diuretics. Patient presented with a potassium of 2.0 mmol/L. Currently home diuretics are on hold (3) Hyponatremia: Assessment/Problem Details: This is likely from deplete intravascular volume. Serum sodium level improved with intravascular volume expansion (4) Dehydration: Assessment/Problem Details: Patient presented with syncope from low blood pressure. Patient has been on diuretics and has been having diarrhea with reduced oral intake. Blood pressureimproved with intravascular volume expansion (5) Metabolic alkalosis: Assessment/Problem Details: Patient might have baseline metabolic alkalosis compensating for respiratory acidosis from COPD. Worsening metabolic alkalosis likely from contraction. Serum bicarb level improved with intravascular volume expansion Plan * Kidney function improved with intravascular volume expansion. Blood pressure remains borderline low. * Will order to stop IV fluid * Continue oral potassium supplement. Will continue to monitor potassium level and replace as needed. * Will continue to monitor electrolytes and replace as needed * Continue to hold home diuretics Lasix and indapamide due to borderline low blood pressure. No peripheral edema. Okay to continue carvedilol. Continue to monitor blood pressure * Check CBC along with renal function panel in a.m. Patient can be discharged from nephrology standpoint. Discharge the patient offhome diuretics. Patient needs follow-up with her PCP with repeated renal function panel to decide about resuming diuretics. Renal team will continue to follow. Call if any question or concern Documented By: Roberto Carlos Mohr MD 04/17/241145 Signed By: 04/17/24 1148 [facility]02-13-2025 Progress note Author Kb Tavares [facility] Note Date/Time April 16, 2024 3:56pm [facility] [address] [place] [address] Hospitalist Progress Note Signed Patient: Katarina Cmaara MR#: [id number] : 1945 Acct:[id number] Age/Sex: 78 / F Adm Date: 5 Loc: Room: [address] [place] [address] Type: ADM IN Attending Dr: Kb Tavares MD Copies to: ~ Date of Service: 04/16/2024 Subjective Subjective Narrative: Comfortably lying in bed. Denies any complaints. Potassium was 2.8 today. Sodium is 136. Creatinine 1.3. Exam Physical Exam Vital Signs: Temp Pulse Resp BP Pulse Ox O2 Del Method 97.5 F L 77 18 91/61 L 97 Room Air 04/16/24 11:36 04/16/24 11:36 04/16/24 11:36 04/16/24 11:36 04/16/24 11:36 04/16/24 11:36 Narrative: General: Awake alert, no acute distress HEENT: head atraumatic, normocephalic, moist mucous membranes Neck: supple no masses, no lymphadenopathy CVS: regular rate and rhythm, no murmurs or gallops Respiratory: clear to auscultation bilaterally, no wheezing or crackles, symmetric expansion GI: soft, nondistended, nontender, positive bowel sounds with no organomegaly Extremity: moves all extremities, no restrictions of movements, no calf tenderness Neuro: AOx3, CN II-VII intact. Moves all extremities in all planes of motion. Skin: intact no rashes or lesions Objective Lab Results 04/16/24 06:26 04/16/24 06:26 Meds Allergies and Active Meds Allergies adhesive tape Allergy (Unknown, Verified 04/14/24 10:36) rash ibuprofen (Motrin) Allergy (Unknown, Verified 04/14/24 10:36) Unknown Reaction pregabalin (From Lyrica) Allergy (Unknown, Verified 04/14/24 10:36) Confusion, CONFUSIONAL STATE ramipril Allergy (Verified 04/14/24 10:36) Cough Active Meds: Active Medications Generic Name Dose Route Start Last Admin Trade Name Freq PRN Reason Stop Dose Admin Acetaminophen 500 mg 04/14/24 16:20 Acetaminophen 500 Mg Tablet PO 04/14/25 16:19 Q6HR PRN pain Acetaminophen 650 mg 04/14/24 16:24 Acetaminophen 325 Mg Tablet PO 04/14/25 16:23 Q6HR PRN Pain Scale 1 - 3 or fever Albuterol 1 puff 04/14/24 16:20 Albuterol Hfa 60 Puff/8 Gram Inhaler INHALATION 04/14/25 16:19 Q6HR PRN shortness of breath or wheezing Atorvastatin Calcium 40 mg 04/14/24 22:00 04/15/24 21:32 Atorvastatin 40 Mg Tablet PO 04/14/25 21:59 40 mg QHS [facility] Administration Carvedilol 3.125 mg 04/14/24 17:00 04/16/24 09:00 Carvedilol 3.125 Mg Tablet PO 04/14/25 16:59 Not Given BID.WITH.MEALS [facility] Duloxetine HCl 60 mg 04/15/24 09:00 04/16/24 09:48 Duloxetine 60 Mg Capsule.Dr PO 04/15/25 08:59 60 mg DAILY [facility] Administration Sodium Chloride 1,000 mls @ 100 mls/hr 04/16/24 09:00 04/16/24 09:50 0.9% Sodium Chloride 1,000 Ml IV 04/16/25 08:59 100 mls/hr .Q10H [facility] Administration Levothyroxine Sodium 112 mcg 04/15/24 06:30 04/16/24 05:35 Levothyroxine 112 Mcg Tablet PO 04/15/25 06:29 112 mcg DAILY.0630 [facility] Administration Montelukast Sodium 10 mg 04/14/24 22:00 04/15/24 21:31 Montelukast 10 Mg Tablet PO 04/14/25 21:59 10 mg QHS [facility] Administration Ondansetron HCl 4 mg 04/14/24 16:24 Ondansetron 4 Mg/2 Ml Vial IV-PUSH 04/14/25 16:23 Q8H PRN Nausea And Vomiting Oxycodone/Acetaminophen 1 tab 04/14/24 16:24 Oxycodone/Acetaminophen 5-325 Mg Tablet PO Q4H PRN Pain Scale 4 - 7 Potassium Chloride 20 meq 04/14/24 21:00 04/16/24 09:48 Potassium Chloride Er 20 Meq Tab.Er.Prt PO 04/14/25 20:59 20 meq BID [facility] Administration Rivaroxaban 10 mg 04/15/24 09:00 04/16/24 09:48 Rivaroxaban 10 Mg Tablet PO 04/15/25 08:59 10 mg DAILY [facility] Administration Saccharomyces Boulardii 250 mg 04/16/24 09:30 04/16/24 09:48 Saccharomyces Boulardii 250 Mg Capsule PO 04/16/25 09:29 250 mg BID [facility] Administration Sodium Chloride 0 ml 04/14/24 10:36 04/16/24 09:50 Sodium Chloride 0.9 % 10 Ml Syringe IV-PUSH 04/14/25 10:35 10 ml PRN PRN Administration Flush Sodium Chloride 0 ml 04/14/24 22:00 04/16/24 14:25 Sodium Chloride 0.9 % 10 Ml Syringe IV-PUSH 04/14/25 21:59 Not Given QSHIFT [facility] Vitamin A/Vitamin D 1 applic 04/15/24 10:32 Vitamin A & D Oint 113 Gm Tube TOPICAL 04/15/25 10:31 PRN PRN rash A&P - Hospitalist Assessment/Plan (1) Dehydration: (2) Syncope: (3) Hypokalemia: (4) Secondary hyperparathyroidism: (5) Hypertensive chronic kidney disease with stage 1 through stage 4 chronic kidney disease, or unspecified chronic kidney disease: (6) CKD (chronic kidney disease) stage 3, GFR 30-59 ml/min: Plan This is a 78-year-old female with significant past medical history of hypertension, hyperlipidemia, CAD status post stent placement on January 2023, hypothyroidism, morbid obesity, vitamin D deficiency, recent admission in outside hospital for subarachnoid hemorrhage and was discharged to care home facility from where she was sent home few days ago. 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 She presented with a chief complaints of syncope. Patient mentions that she was trying to get up from the wheelchair and she passed out. She denies any nausea or vomiting or abdominal pain. She mentions is not having any loose stools. Lab work shows no leukocytosis, sodium of 130, potassium of 2, chloride of 77, creatinine of 1.7 troponin of 81, BNP 171 urinalysis not suggestive of UTI Chest x-ray shows no acute findings, EKG shows normal sinus rhythm with some PVC orthostatic vitals done again was negative. Assessment-hypokalemia likely in setting of GI loss and/or medication Plan: -Admit to regular nursing floor -Patient got 2 L of NS in the ED and is currently on IV maintenance fluid. -Monitor orthostatic vitals -Hold on Lasix and indapamide -Follow-up morning labs -Continue POA medications-Lipitor, carvedilol, Cymbalta, levothyroxine, Singulair, potassium -Patient mentions aspirin was discontinued recently after she had subarachnoid hemorrhage. -Nephrology also consulted-appreciate recommendation Heart healthy diet -Full code I talked to her daughter around 10 to 15 minutes minutes and explained to her and updated her about her current status. Documented By: Kb Tavares MD 04/16/24 1537 Signed By: <Electronically signed by Kb Tavares MD> 04/16/24 4166 [facility] Work Phone: 1(295) 186-979902-13-[address] [address] Hospitalist Progress Note Signed Patient: Katarina Camara MR#: [id number] : 1945 Acct:[id number] Age/Sex: 78 / F Adm Date: 5 Loc: 3T Room: 9I5108-0 Type: ADM IN Attending Dr: Kb Tavares MD Copies to: ~ Date of Service: 04/16/2024 Subjective Subjective Narrative: Comfortably lying in bed. Denies any complaints. Potassium was 2.8 today. Sodium is 136. Creatinine1.3. Exam Physical Exam Vital Signs: Temp Pulse Resp BP Pulse Ox O2 Del Method 97.5 F L 77 18 91/61 L 97 Room Air 04/16/24 11:36 04/16/24 11:36 04/16/24 11:36 04/16/24 11:36 04/16/24 11:36 04/16/24 11:36 Narrative: General: Awake alert, no acute distress HEENT: head atraumatic, normocephalic, moist mucous membranes Neck: supple no masses, no lymphadenopathy CVS: regular rate and rhythm, no murmurs or gallops Respiratory: clear to auscultation bilaterally, no wheezing or crackles, symmetric expansion GI: soft, nondistended, nontender, positive bowel sounds with no organomegaly Extremity: moves all extremities, no restrictions of movements, no calf tenderness Neuro: AOx3, CN II-VII intact. Moves all extremities in all planes of motion. Skin: intact no rashes or lesions Objective Lab Results 04/16/24 06:26 04/16/24 06:26 Meds Allergies and Active Meds Allergies adhesive tape Allergy (Unknown, Verified 04/14/24 10:36) rash ibuprofen (Motrin) Allergy (Unknown, Verified 04/14/24 10:36) Unknown Reaction pregabalin (From Lyrica) Allergy (Unknown, Verified 04/14/24 10:36) Confusion, CONFUSIONAL STATE ramipril Allergy (Verified 04/14/24 10:36) Cough Active Meds: Active Medications Generic Name Dose Route Start Last Admin Trade Name Freq PRN Reason Stop Dose Admin Acetaminophen 500 mg 04/14/24 16:20 Acetaminophen 500 Mg Tablet PO 04/14/25 16:19 Q6HR PRN pain Acetaminophen 650 mg 04/14/24 16:24 Acetaminophen 325 Mg Tablet PO 04/14/25 16:23 Q6HR PRN Pain Scale 1 - 3 or fever Albuterol 1 puff 04/14/24 16:20 Albuterol Hfa 60 Puff/8 Gram Inhaler INHALATION 04/14/25 16:19 Q6HR PRN shortness of breath or wheezing Atorvastatin Calcium 40 mg 04/14/24 22:00 04/15/24 21:32 Atorvastatin 40 Mg Tablet PO 04/14/25 21:59 40 mg QHS [facility] Administration Carvedilol 3.125 mg 04/14/24 17:00 04/16/24 09:00 Carvedilol 3.125 Mg Tablet PO 04/14/25 16:59 Not Given BID.WITH.MEALS [facility] Duloxetine HCl 60 mg 04/15/24 09:00 04/16/24 09:48 Duloxetine 60 Mg Capsule.Dr PO 04/15/25 08:59 60 mg DAILY [facility] Administration Sodium Chloride 1,000 mls @ 100 mls/hr 04/16/24 09:00 04/16/24 09:50 0.9% Sodium Chloride 1,000 Ml IV 04/16/25 08:59 100 mls/hr .Q10H [facility] Administration Levothyroxine Sodium 112 mcg 04/15/24 06:30 04/16/24 05:35 Levothyroxine 112 Mcg Tablet PO 04/15/25 06:29 112 mcg DAILY.0630 [facility] Administration Montelukast Sodium 10 mg 04/14/24 22:00 04/15/24 21:31 Montelukast 10 Mg Tablet PO 04/14/25 21:59 10 mg QHS [facility] Administration Ondansetron HCl 4 mg 04/14/24 16:24 Ondansetron 4 Mg/2 Ml Vial IV-PUSH 04/14/25 16:23 Q8H PRN Nausea And Vomiting Oxycodone/Acetaminophen 1 tab 04/14/24 16:24 Oxycodone/Acetaminophen 5-325 Mg Tablet PO Q4H PRN Pain Scale 4 - 7 Potassium Chloride 20 meq 04/14/24 21:00 04/16/24 09:48 Potassium Chloride Er 20 Meq Tab.Er.Prt PO 04/14/25 20:59 20 meq BID MARTHA Administration Rivaroxaban 10 mg 04/15/24 09:00 04/16/24 09:48 Rivaroxaban 10 Mg Tablet PO 04/15/25 08:59 10 mg DAILY MARHTA Administration Saccharomyces Boulardii 250 mg 04/16/24 09:30 04/16/24 09:48 Saccharomyces Boulardii 250 Mg Capsule PO 04/16/25 09:29 250 mg BID MARTHA Administration Sodium Chloride 0 ml 04/14/24 10:36 04/16/24 09:50 Sodium Chloride 0.9 % 10 Ml Syringe IV-PUSH 04/14/25 10:35 10 ml PRN PRN Administration Flush Sodium Chloride 0 ml 04/14/24 22:00 04/16/24 14:25 Sodium Chloride 0.9 % 10 Ml Syringe IV-PUSH 04/14/25 21:59 Not Given QSHIFT MARTHA Vitamin A/Vitamin D 1 applic 04/15/24 10:32 Vitamin A & D Oint 113 Gm Tube TOPICAL 04/15/25 10:31 PRN PRN rash A&P - Hospitalist Assessment/Plan (1) Dehydration: (2) Syncope: (3) Hypokalemia: (4) Secondary hyperparathyroidism: (5) Hypertensive chronic kidney disease with stage 1 through stage 4 chronic kidney disease, or unspecified chronic kidney disease: (6) CKD (chronic kidney disease) stage 3, GFR 30-59 ml/min: Plan This is a 78-year-old female with significant past medical history of hypertension, hyperlipidemia,CAD status post stent placement on January 2023, hypothyroidism, morbid obesity, vitamin D deficiency, recent admission in outside hospital for subarachnoid hemorrhage and was discharged to [facility] facility from where she was sent home few days ago. 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 She presented with a chief complaints of syncope. Patient mentions that she was trying to get up from the wheelchair and shepassed out. She denies any nausea or vomiting or abdominal pain. She mentions is not having any loose stools. Lab work shows no leukocytosis, sodium of 130, potassium of 2, chloride of 77, creatinineof 1.7 troponin of 81, BNP 171 urinalysis not suggestive of UTI Chest x-ray shows no acute findings, EKG shows normal sinus rhythm with some PVC orthostatic vitals done again was negative. Assessment-hypokalemia likely in setting of GI loss and/or medication Plan: -Admit to regular nursing floor -Patient got 2 L of NS in the ED and is currently on IV maintenance fluid. -Monitor orthostatic vitals -Hold on Lasix and indapamide -Follow-up morning labs -Continue POA medications-Lipitor, carvedilol, Cymbalta, levothyroxine, Singulair, potassium -Patient mentions aspirin was discontinued recently after she had subarachnoid hemorrhage. -Nephrology also consulted-appreciate recommendation Heart healthy diet -Full code I talked to her daughter around 10 to 15 minutes minutes and explained to her and updated her abouther current status. Documented By: Kb Tavares MD 04/16/24 1537 Signed By: 04/16/24 1556 [facility]02-13-2025 Progress note Author Roberto Carlos Mohr [facility] Note Date/Time April 16, 2024 12:08pm [facility] ENTER [address] [place] [address] Nephrology Progress Note Signed Patient: Katarina Camara MR#: [id number] : 1945 Acct:[id number] Age/Sex: 78 / F Adm Date: 5 Loc: Room: [address] [place] [address] Type: ADM IN Attending Dr: Kb Tavares MD Copies to: ~ Date of Service: 04/16/2024 Subjective Subjective Narrative: Patient this is 78-year-old female patient with past medical history of hypertension, hyperlipidemia, chronic disease status post stent placement last year, hypothyroidism, morbid obesity, recent subarachnoid hemorrhage. Patient was sent from [facility] to [facility] for syncopal episode. In the emergency room she was found to be hypotensive above revealed hyponatremia with sodium 130mmol/L, hypokalemia with initial potassium level 2.0, acute kidney injury with creatinine up to 1.7 mg deciliter from baseline around 1.0, serum bicarb 45. Patient had recent admission of C. difficile colitis and she she just finished oral vancomycin course. Patient continues to have diarrhea I reviewed the patient's home medications. She is on indapamide and Lasix for hypertension and volume management.. Patient follows with the cardiology clinicDr. Calloway. Patient was given 2 L of normal saline with improvement in blood pressure. Potassium was replaced with oral and IV KCl. Repeated lab this morning showed creatinine 1.46 mg deciliter, potassium 2.7 mmol/L, bicarb 27.8 mmol/L and sodium 134 mmol/L. Patient says she is feeling better. Does not feel dizziness. Blood pressure monisha encounter 109/72 Patient said that she continues to have diarrhea. She had 3 BM so far today. Denied cramps. No chest pain. No shortness of breath. She is currently on room air. Interval history : Patient was seen and examined in her room. Patient is feeling better. She is awake alert oriented x 3. Blood pressure remains borderline low. Currently off IV fluid. Repeated lab this morning showed better creatinine at 1.3, serum bicarb is better at 34, potassium remains low at 2.8 mmol/L. Patientis currently on oral KCl 20 mill equivalent p.o. twice daily Patient said diarrhea has improved. She is able to eat regular food without nausea or vomiting. Denied cough. No shortness of breath. No dizziness. Exam Physical Exam Vital Signs: Temp Pulse Resp BP Pulse Ox O2 Del Method 97.5 F L 77 18 91/61 L 97 Room Air 04/16/24 11:36 04/16/24 11:36 04/16/24 11:36 04/16/24 11:36 04/16/24 11:36 04/16/24 11:36 Narrative: General: No acute distress Head :atraumatic normocephalic Eyes: PERRLA. Neck: no JVD no bruit. Heart: S1-S2. RRR Respiratory: Clear to auscultation. No wheezing. No crackles Abdomen: Soft, positive bowel sounds,no tenderness. Neurology: Awake alert oriented x3. No focal deficits Extremity. No cyanosis. No edema Skin: No skin rash Objective Intake and Output I&O: Intake & Output 04/13/24 04/14/24 04/15/24 04/16/24 23:59 23:59 23:59 23:59 Intake Total 2280 / 2280 3090 / 3090 1350 / 1350 Balance 2280 / 2280 3090 / 3090 1350 / 1350 Weight 92 kg 90.9 kg 91.4 kg Meds and Allergies Meds: Active Medications Acetaminophen (Acetaminophen 500 Mg Tablet) 500 mg PO Q6HR PRN PRN Reason: pain Stop: 04/14/25 16:19 Acetaminophen (Acetaminophen 325 Mg Tablet) 650 mg PO Q6HR PRN PRN Reason: Pain Scale 1 - 3 or fever Stop: 04/14/25 16:23 Albuterol (Albuterol Hfa 60 Puff/8 Gram Inhaler) 1 puff INHALATION Q6HR PRN PRN Reason: shortness of breath or wheezing Stop: 04/14/25 16:19 Atorvastatin Calcium (Atorvastatin 40 Mg Tablet) 40 mg PO QHS [facility] Stop: 04/14/25 21:59 Last Admin: 04/15/24 21:32 Dose: 40 mg Carvedilol (Carvedilol 3.125 Mg Tablet) 3.125 mg PO BID.WITH.MEALS [facility] Stop: 04/14/25 16:59 Last Admin: 04/16/24 09:00 Dose: Not Given Duloxetine HCl (Duloxetine 60 Mg Capsule.Dr) 60 mg PO DAILY MARTHA Stop: 04/15/25 08:59 Last Admin: 04/16/24 09:48 Dose: 60 mg Potassium Chloride 20 meq/ (Sodium Chloride) 260 mls @ 130 mls/hr IV Q2H MARTHA Stop: 04/16/24 15:29 Last Admin: 04/16/24 09:49 Dose: 130 mls/hr Sodium Chloride (0.9% Sodium Chloride 1,000 Ml) 1,000 mls @ 100 mls/hr IV .[id number] Stop: 04/16/25 08:59 Last Admin: 04/16/24 09:50 Dose: 100 mls/hr Levothyroxine Sodium (Levothyroxine 112 Mcg Tablet) 112 mcg PO DAILY.0630 [facility] Stop: 04/15/25 06:29 Last Admin: 04/16/24 05:35 Dose: 112 mcg Montelukast Sodium (Montelukast 10 Mg Tablet) 10 mg PO QHS [facility] Stop: 04/14/25 21:59 Last Admin: 04/15/24 21:31 Dose: 10 mg Ondansetron HCl (Ondansetron 4 Mg/2 Ml Vial) 4 mg IV-PUSH Q8H PRN PRN Reason: Nausea And Vomiting Stop: 04/14/25 16:23 Oxycodone/Acetaminophen (Oxycodone/Acetaminophen 5-325 Mg Tablet) 1 tab PO Q4H PRN PRN Reason: Pain Scale 4 - 7 Potassium Chloride (Potassium Chloride Er 20 Meq Tab.Er.Prt) 20 meq PO BID MARTHA Stop: 04/14/25 20:59 Last Admin: 04/16/24 09:48 Dose: 20 meq Rivaroxaban (Rivaroxaban 10 Mg Tablet) 10 mg PO DAILY [facility] Stop: 04/15/25 08:59 Last Admin: 04/16/24 09:48 Dose: 10 mg Saccharomyces Boulardii (Saccharomyces Boulardii 250 Mg Capsule) 250 mg PO BID MARTHA Stop: 04/16/25 09:29 Last Admin: 04/16/24 09:48 Dose: 250 mg Sodium Chloride (Sodium Chloride 0.9 % 10 Ml Syringe) 0 ml IV-PUSH PRN PRN PRN Reason: Flush Stop: 04/14/25 10:35 Last Admin: 04/16/24 09:50 Dose: 10 ml Sodium Chloride (Sodium Chloride 0.9 % 10 Ml Syringe) 0 ml IV-PUSH QSHIFT MARTHA Stop: 04/14/25 21:59 Last Admin: 04/16/24 05:35 Dose: 10 ml Vitamin A/Vitamin D (Vitamin A & D Oint 113 Gm Tube) 1 applic TOPICAL PRN PRN PRN Reason: rash Stop: 04/15/25 10:31 Allergies adhesive tape Allergy (Unknown, Verified 04/14/24 10:36) rash ibuprofen (Motrin) Allergy (Unknown, Verified 04/14/24 10:36) Unknown Reaction pregabalin (From Lyrica) Allergy (Unknown, Verified 04/14/24 10:36) Confusion, CONFUSIONAL STATE ramipril Allergy (Verified 04/14/24 10:36) Cough Results - Nephrology Labs 04/16/24 06:26 04/16/24 06:26 Labs: 04/16/24 06:26 BUN 11 Creatinine 1.30 H Albumin 3.0 L Radiology Impressions Impressions - last 24 hours: Any impression(s) listed above is documentation that was entered by the reading physician into a diagnostic report(s) for Katarina Camara. I have reviewed the report(s) and am incorporating any findings in the treatment plan of this patient where applicable. A&P - Nephrology Assessment/Plan (1) Acute kidney injury: Assessment/Problem Details: Acute kidney injury likely prerenal from deplete intravascular volume and low blood pressure at presentation. Blood pressure in the emergency room was 102/51. UA is benign (2) Hypokalemia: Assessment/Problem Details: This is likely related to GI potassium loss in addition to diuretics. Patient presented with a potassium of 2.0 mmol/L. Currently home diuretics are on hold (3) Hyponatremia: Assessment/Problem Details: This is likely from deplete intravascular volume. Serum sodium level improved with intravascular volume expansion (4) Dehydration: Assessment/Problem Details: Patient presented with syncope from low blood pressure. Patient has been on diuretics and has been having diarrhea with reduced oral intake. Blood pressureimproved with intravascular volume expansion (5) Metabolic alkalosis: Assessment/Problem Details: Patient might have baseline metabolic alkalosis compensating for respiratory acidosis from COPD. Worsening metabolic alkalosis likely from contraction. Serum bicarb level improved with intravascular volume expansion Plan * Kidney function improved with intravascular volume expansion. Blood pressure remains borderline low. Will resume normal saline at 100 cc/h * I will give the patient 60 mill equivalent IV KCl today. Continue oral potassium supplement. Will continue to monitor potassium level and replace as needed. * Will continue to monitor electrolytes and replace as needed * Continue to hold home diuretics Lasix and indapamide. Okay to continue carvedilol. Continue to monitor blood pressure * Check CBC along with renal function panel in a.m. Plan of the care was discussed with the patient's daughter Saundra over phone. Renal team will continue to follow. Call if any question or concern Documented By: Roberto Carlos Mohr MD 04/16/241204 Signed By: <Electronically signed by Roberto Carlos Mohr MD> 04/16/[address] [place] [address] Work Phone: [phone]) 765-941102-13-2025 [place] [address] Nephrology Progress Note Signed Patient: Katarina Camara MR#: [id number] : 1945 Acct:[id number] Age/Sex: 78 / F Adm Date: 5 Loc: Room: [address] [place] [address] Type: ADM IN Attending Dr: Kb Tavares MD Copies to: ~ Date of Service: 04/16/2024 Subjective Subjective Narrative: Patient this is 78-year-old female patient with past medical history of hypertension, hyperlipidemia, chronic disease status post stent placement last year, hypothyroidism, morbid obesity, recent subarachnoid hemorrhage. Patient was sent from [facility] to [facility] for syncopal episode. In the emergency room she was found to be hypotensive above revealed hyponatremia with sodium 130mmol/L, hypokalemia with initial potassium level 2.0, acute kidney injury with creatinine up to 1.7 mg deciliter from baseline around 1.0, serum bicarb 45. Patient had recent admission of C. difficile colitis and she she just finished oral vancomycin course. Patient continues to have diarrhea I reviewed the patient's home medications. She is on indapamide and Lasix for hypertension and volume management.. Patient follows with the cardiology clinicDr. Calloway. Patient was given 2 L of normal saline with improvement in blood pressure. Potassium was replaced with oral and IV KCl. Repeated lab this morning showed creatinine 1.46 mg deciliter, potassium 2.7 mmol/L, bicarb 27.8 mmol/L and sodium 134 mmol/L. Patient says she is feeling better. Does not feel dizziness. Blood pressure monisha encounter 109/72 Patient said that she continues to have diarrhea. She had 3 BM so far today. Denied cramps. No chest pain. No shortness of breath. She is currently on room air. Interval history : Patient was seen and examined in her room. Patient is feeling better. She is awake alert oriented x 3. Blood pressure remains borderline low. Currently off IV fluid. Repeated lab this morning showed better creatinine at 1.3, serum bicarb is better at 34, potassium remains low at 2.8 mmol/L. Patientis currently on oral KCl 20 mill equivalent p.o. twice daily Patient said diarrhea has improved. She is able to eat regular food without nausea or vomiting. Denied cough. No shortness of breath. No dizziness. Exam Physical Exam Vital Signs: Temp Pulse Resp BP Pulse Ox O2 Del Method 97.5 F L 77 18 91/61 L 97 Room Air 04/16/24 11:36 04/16/24 11:36 04/16/24 11:36 04/16/24 11:36 04/16/24 11:36 04/16/24 11:36 Narrative: General: No acute distress Head :atraumatic normocephalic Eyes: PERRLA. Neck: no JVD no bruit. Heart: S1-S2. RRR Respiratory: Clear to auscultation. No wheezing. No crackles Abdomen: Soft, positive bowel sounds,no tenderness. Neurology: Awake alert oriented x3. No focal deficits Extremity. No cyanosis. No edema Skin: No skin rash Objective Intake and Output I&O: Intake & Output 04/13/24 04/14/24 04/15/24 04/16/24 23:59 23:59 23:59 23:59 Intake Total 2280 / 2280 3090 / 3090 1350 / 1350 Balance 2280 / 2280 3090 / 3090 1350 / 1350 Weight 92 kg 90.9 kg 91.4 kg Meds and Allergies Meds: Active Medications Acetaminophen (Acetaminophen 500 Mg Tablet) 500 mg PO Q6HR PRN PRN Reason: pain Stop: 04/14/25 16:19 Acetaminophen (Acetaminophen 325 Mg Tablet) 650 mg PO Q6HR PRN PRN Reason: Pain Scale 1 - 3 or fever Stop: 04/14/25 16:23 Albuterol (Albuterol Hfa 60 Puff/8 Gram Inhaler) 1 puff INHALATION Q6HR PRN PRN Reason: shortness of breath or wheezing Stop: 04/14/25 16:19 Atorvastatin Calcium (Atorvastatin 40 Mg Tablet) 40 mg PO QHS MARTHA Stop: 04/14/25 21:59 Last Admin: 04/15/24 21:32 Dose: 40 mg Carvedilol (Carvedilol 3.125 Mg Tablet) 3.125 mg PO BID.WITH.MEALS [facility] Stop: 04/14/25 16:59 Last Admin: 04/16/24 09:00 Dose: Not Given Duloxetine HCl (Duloxetine 60 Mg Capsule.Dr) 60 mg PO DAILY MARTHA Stop: 04/15/25 08:59 Last Admin: 04/16/24 09:48 Dose: 60 mg Potassium Chloride 20 meq/ (Sodium Chloride) 260 mls @ 130 mls/hr IV Q2H MARTHA Stop: 04/16/24 15:29 Last Admin: 04/16/24 09:49 Dose: 130 mls/hr Sodium Chloride (0.9% Sodium Chloride 1,000 Ml) 1,000 mls @ 100 mls/hr IV .[id number] Stop: 04/16/25 08:59 Last Admin: 04/16/24 09:50 Dose: 100 mls/hr Levothyroxine Sodium (Levothyroxine 112 Mcg Tablet) 112 mcg PO DAILY.0630 [facility] Stop: 04/15/25 06:29 Last Admin: 04/16/24 05:35 Dose: 112 mcg Montelukast Sodium (Montelukast 10 Mg Tablet) 10 mg PO QHS [facility] Stop: 04/14/25 21:59 Last Admin: 04/15/24 21:31 Dose: 10 mg Ondansetron HCl (Ondansetron 4 Mg/2 Ml Vial) 4 mg IV-PUSH Q8H PRN PRN Reason: Nausea And Vomiting Stop: 04/14/25 16:23 Oxycodone/Acetaminophen (Oxycodone/Acetaminophen 5-325 Mg Tablet) 1 tab PO Q4H PRN PRN Reason: Pain Scale 4 - 7 Potassium Chloride (Potassium Chloride Er 20 Meq Tab.Er.Prt) 20 meq PO BID [facility] Stop: 04/14/25 20:59 Last Admin: 04/16/24 09:48 Dose: 20 meq Rivaroxaban (Rivaroxaban 10 Mg Tablet) 10 mg PO DAILY [facility] Stop: 04/15/25 08:59 Last Admin: 04/16/24 09:48 Dose: 10 mg Saccharomyces Boulardii (Saccharomyces Boulardii 250 Mg Capsule) 250 mg PO BID [facility] Stop: 04/16/25 09:29 Last Admin: 04/16/24 09:48 Dose: 250 mg Sodium Chloride (Sodium Chloride 0.9 % 10 Ml Syringe) 0 ml IV-PUSH PRN PRN PRN Reason: Flush Stop: 04/14/25 10:35 Last Admin: 04/16/24 09:50 Dose: 10 ml Sodium Chloride (Sodium Chloride 0.9 % 10 Ml Syringe) 0 ml IV-PUSH QSHIFT [facility] Stop: 04/14/25 21:59 Last Admin: 04/16/24 05:35 Dose: 10 ml Vitamin A/Vitamin D (Vitamin A & D Oint 113 Gm Tube) 1 applic TOPICAL PRN PRN PRN Reason: rash Stop: 04/15/25 10:31 Allergies adhesive tape Allergy (Unknown, Verified 04/14/24 10:36) rash ibuprofen (Motrin) Allergy (Unknown, Verified 04/14/24 10:36) Unknown Reaction pregabalin (From Lyrica) Allergy (Unknown, Verified 04/14/24 10:36) Confusion, CONFUSIONAL STATE ramipril Allergy (Verified 04/14/24 10:36) Cough Results - Nephrology Labs 04/16/24 06:26 04/16/24 06:26 Labs: 04/16/24 06:26 BUN 11 Creatinine 1.30 H Albumin 3.0 L Radiology Impressions Impressions - last 24 hours: Any impression(s) listed above is documentation that was entered by the reading physician into a diagnostic report(s) for Katarina Camara. I have reviewed the report(s) and am incorporating any findings in the treatment plan of this patient where applicable. A&P - Nephrology Assessment/Plan (1) Acute kidney injury: Assessment/Problem Details: Acute kidney injury likely prerenal from deplete intravascular volume and low blood pressure at presentation. Blood pressure in the emergency room was 102/51. UA is benign (2) Hypokalemia: Assessment/Problem Details: This is likely related to GI potassium loss in addition to diuretics. Patient presented with a potassium of 2.0 mmol/L. Currently home diuretics are on hold (3) Hyponatremia: Assessment/Problem Details: This is likely from deplete intravascular volume. Serum sodium level improved with intravascular volume expansion (4) Dehydration: Assessment/Problem Details: Patient presented with syncope from low blood pressure. Patient has been on diuretics and has been having diarrhea with reduced oral intake. Blood pressureimproved with intravascular volume expansion (5) Metabolic alkalosis: Assessment/Problem Details: Patient might have baseline metabolic alkalosis compensating for respiratory acidosis from COPD. Worsening metabolic alkalosis likely from contraction. Serum bicarb level improved with intravascular volume expansion Plan * Kidney function improved with intravascular volume expansion. Blood pressure remains borderline low. Will resume normal saline at 100 cc/h * I will give the patient 60 mill equivalent IV KCl today. Continue oral potassium supplement. Willcontinue to monitor potassium level and replace as needed. * Will continue to monitor electrolytes and replace as needed * Continue to hold home diuretics Lasix and indapamide. Okay to continue carvedilol. Continue to monitor blood pressure * Check CBC along with renal function panel in a.m. Plan of the care was discussed with the patient's daughter Saundra over phone. Renal team will continue to follow. Call if any question or concern Documented By: Roberto Carlos Mohr MD 04/16/241204 Signed By: 04/16/24 1208 [facility]02-12-2025 Progress note Author Kb Tavares [facility] Note Date/Time April 15, 2024 4:04pm [facility] ENTER [address] [place] [address] Hospitalist Progress Note Signed Patient: Katarina Camara MR#: [id number] : 1945 Acct:[id number] Age/Sex: 78 / F Adm Date: 5 Loc: 3T Room: [address] [place] [address] Type: ADM IN Attending Dr: Kb Tavares MD Copies to: ~ Date of Service: 04/15/2024 Subjective Subjective Narrative: Comfortably lying in bed. Denies any complaints. Potassium was 2.7 today. Sodium was 134 slightly improved. Creatinine 1.46. Orthostatic vitals was doneagain which was positive and patient was symptomatic. Exam Physical Exam Vital Signs: Temp Pulse Resp BP Pulse Ox O2 Del Method 97.6 F 80 14 92/54 L 93 L Room Air 04/15/24 15:16 04/15/24 15:16 04/15/24 15:16 04/15/24 15:16 04/15/24 15:16 04/15/24 15:16 Narrative: General: Awake alert, no acute distress HEENT: head atraumatic, normocephalic, moist mucous membranes Neck: supple no masses, no lymphadenopathy CVS: regular rate and rhythm, no murmurs or gallops Respiratory: clear to auscultation bilaterally, no wheezing or crackles, symmetric expansion GI: soft, nondistended, nontender, positive bowel sounds with no organomegaly Extremity: moves all extremities, no restrictions of movements, no calf tenderness Neuro: AOx3, CN II-VII intact. Moves all extremities in all planes of motion. Skin: intact no rashes or lesions Objective Lab Results 04/15/24 07:26 04/15/24 07:26 Meds Allergies and Active Meds Allergies adhesive tape Allergy (Unknown, Verified 04/14/24 10:36) rash ibuprofen (Motrin) Allergy (Unknown, Verified 04/14/24 10:36) Unknown Reaction pregabalin (From Lyrica) Allergy (Unknown, Verified 04/14/24 10:36) Confusion, CONFUSIONAL STATE ramipril Allergy (Verified 04/14/24 10:36) Cough Active Meds: Active Medications Generic Name Dose Route Start Last Admin Trade Name Freq PRN Reason Stop Dose Admin Acetaminophen 500 mg 04/14/24 16:20 Acetaminophen 500 Mg Tablet PO 04/14/25 16:19 Q6HR PRN pain Acetaminophen 650 mg 04/14/24 16:24 Acetaminophen 325 Mg Tablet PO 04/14/25 16:23 Q6HR PRN Pain Scale 1 - 3 or fever Albuterol 1 puff 04/14/24 16:20 Albuterol Hfa 60 Puff/8 Gram Inhaler INHALATION 04/14/25 16:19 Q6HR PRN shortness of breath or wheezing Atorvastatin Calcium 40 mg 04/14/24 22:00 04/14/24 21:43 Atorvastatin 40 Mg Tablet PO 04/14/25 21:59 40 mg QHS MARTHA Administration Carvedilol 3.125 mg 04/14/24 17:00 04/15/24 08:44 Carvedilol 3.125 Mg Tablet PO 04/14/25 16:59 3.125 mg BID.WITH.MEALS MARTHA Administration Duloxetine HCl 60 mg 04/15/24 09:00 04/15/24 08:45 Duloxetine 60 Mg Capsule.Dr PO 04/15/25 08:59 60 mg DAILY MARTHA Administration Potassium Chloride 20 meq/ 260 mls @ 130 mls/hr 04/15/24 10:30 04/15/24 13:47 Sodium Chloride IV 04/15/24 16:29 130 mls/hr Q2H MARTHA Administration Sodium Chloride 1,000 mls @ 100 mls/hr 04/15/24 13:00 04/15/24 14:38 0.9% Sodium Chloride 1,000 Ml IV 04/15/24 22:59 100 mls/hr .Q10H MARTHA Administration Levothyroxine Sodium 112 mcg 04/15/24 06:30 04/15/24 06:45 Levothyroxine 112 Mcg Tablet PO 04/15/25 06:29 112 mcg DAILY.0630 MARTHA Administration Montelukast Sodium 10 mg 04/14/24 22:00 04/14/24 21:43 Montelukast 10 Mg Tablet PO 04/14/25 21:59 10 mg QHS MARTHA Administration Ondansetron HCl 4 mg 04/14/24 16:24 Ondansetron 4 Mg/2 Ml Vial IV-PUSH 04/14/25 16:23 Q8H PRN Nausea And Vomiting Oxycodone/Acetaminophen 1 tab 04/14/24 16:24 Oxycodone/Acetaminophen 5-325 Mg Tablet PO Q4H PRN Pain Scale 4 - 7 Potassium Chloride 20 meq 04/14/24 21:00 04/15/24 08:45 Potassium Chloride Er 20 Meq Tab.Er.Prt PO 04/14/25 20:59 20 meq BID MARTHA Administration Rivaroxaban 10 mg 04/15/24 09:00 04/15/24 08:45 Rivaroxaban 10 Mg Tablet PO 04/15/25 08:59 10 mg DAILY MARTHA Administration Sodium Chloride 0 ml 04/14/24 10:36 04/15/24 02:02 Sodium Chloride 0.9 % 10 Ml Syringe IV-PUSH 04/14/25 10:35 10 ml PRN PRN Administration Flush Sodium Chloride 0 ml 04/14/24 22:00 04/15/24 14:39 Sodium Chloride 0.9 % 10 Ml Syringe IV-PUSH 04/14/25 21:59 Not Given QSHIFT MARTHA Vitamin A/Vitamin D 1 applic 04/15/24 10:32 Vitamin A & D Oint 113 Gm Tube TOPICAL 04/15/25 10:31 PRN PRN rash A&P - Hospitalist Assessment/Plan (1) Dehydration: (2) Syncope: (3) Hypokalemia: (4) Secondary hyperparathyroidism: (5) Hypertensive chronic kidney disease with stage 1 through stage 4 chronic kidney disease, or unspecified chronic kidney disease: (6) CKD (chronic kidney disease) stage 3, GFR 30-59 ml/min: Plan This is a 78-year-old female with significant past medical history of hypertension, hyperlipidemia, CAD status post stent placement on January 2023, hypothyroidism, morbid obesity, vitamin D deficiency, recent admission in outside hospital for subarachnoid hemorrhage and was discharged to care home facility from where she was sent home few days ago. 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 She presented with a chief complaints of syncope. Patient mentions that she was trying to get up from the wheelchair and she passed out. She denies any nausea or vomiting or abdominal pain. She mentions is not having any loose stools. Lab work shows no leukocytosis, sodium of 130, potassium of 2, chloride of 77, creatinine of 1.7 troponin of 81, BNP 171 urinalysis not suggestive of UTI Chest x-ray shows no acute findings, EKG shows normal sinus rhythm with some PVC Assessment-hypokalemia likely in setting of GI loss and/or medication Plan: -Admit to regular nursing floor -Patient got 2 L of NS in the ED and is currently on IV maintenance fluid. -Monitor orthostatic vitals -Hold on Lasix and indapamide -Follow-up morning labs -Continue POA medications-Lipitor, carvedilol, Cymbalta, levothyroxine, Singulair, potassium -Patient mentions aspirin was discontinued recently after she had subarachnoid hemorrhage. -Nephrology also consulted-appreciate recommendation Heart healthy diet -Full code Documented By: Kb Tavares MD 04/15/24 1603 Signed By: <Electronically signed by Kb Tavares MD> 04/15/24 1607 [facility] Work Phone: 1(842) 710-242102-12-2025 [place] [address] Hospitalist Progress Note Signed Patient: Katarina Camara MR#: [id number] : 1945 Acct:[id number] Age/Sex: 78 / F Adm Date: 5 Loc: Room: [address] [place] [address] Type: ADM IN Attending Dr: Kb Tavares MD Copies to: ~ Date of Service: 04/15/2024 Subjective Subjective Narrative: Comfortably lying in bed. Denies any complaints. Potassium was 2.7 today. Sodium was 134 slightly improved. Creatinine 1.46. Orthostatic vitals was doneagain which was positive and patient was symptomatic. Exam Physical Exam Vital Signs: Temp Pulse Resp BP Pulse Ox O2 Del Method 97.6 F 80 14 92/54 L 93 L Room Air 04/15/24 15:16 04/15/24 15:16 04/15/24 15:16 04/15/24 15:16 04/15/24 15:16 04/15/24 15:16 Narrative: General: Awake alert, no acute distress HEENT: head atraumatic, normocephalic, moist mucous membranes Neck: supple no masses, no lymphadenopathy CVS: regular rate and rhythm, no murmurs or gallops Respiratory: clear to auscultation bilaterally, no wheezing or crackles, symmetric expansion GI: soft, nondistended, nontender, positive bowel sounds with no organomegaly Extremity: moves all extremities, no restrictions of movements, no calf tenderness Neuro: AOx3, CN II-VII intact. Moves all extremities in all planes of motion. Skin: intact no rashes or lesions Objective Lab Results 04/15/24 07:26 04/15/24 07:26 Meds Allergies and Active Meds Allergies adhesive tape Allergy (Unknown, Verified 04/14/24 10:36) rash ibuprofen (Motrin) Allergy (Unknown, Verified 04/14/24 10:36) Unknown Reaction pregabalin (From Lyrica) Allergy (Unknown, Verified 04/14/24 10:36) Confusion, CONFUSIONAL STATE ramipril Allergy (Verified 04/14/24 10:36) Cough Active Meds: Active Medications Generic Name Dose Route Start Last Admin Trade Name Freq PRN Reason Stop Dose Admin Acetaminophen 500 mg 04/14/24 16:20 Acetaminophen 500 Mg Tablet PO 04/14/25 16:19 Q6HR PRN pain Acetaminophen 650 mg 04/14/24 16:24 Acetaminophen 325 Mg Tablet PO 04/14/25 16:23 Q6HR PRN Pain Scale 1 - 3 or fever Albuterol 1 puff 04/14/24 16:20 Albuterol Hfa 60 Puff/8 Gram Inhaler INHALATION 04/14/25 16:19 Q6HR PRN shortness of breath or wheezing Atorvastatin Calcium 40 mg 04/14/24 22:00 04/14/24 21:43 Atorvastatin 40 Mg Tablet PO 04/14/25 21:59 40 mg QHS MARTHA Administration Carvedilol 3.125 mg 04/14/24 17:00 04/15/24 08:44 Carvedilol 3.125 Mg Tablet PO 04/14/25 16:59 3.125 mg BID.WITH.MEALS MARTHA Administration Duloxetine HCl 60 mg 04/15/24 09:00 04/15/24 08:45 Duloxetine 60 Mg Capsule.Dr PO 04/15/25 08:59 60 mg DAILY MARTHA Administration Potassium Chloride 20 meq/ 260 mls @ 130 mls/hr 04/15/24 10:30 04/15/24 13:47 Sodium Chloride IV 04/15/24 16:29 130 mls/hr Q2H MARTHA Administration Sodium Chloride 1,000 mls @ 100 mls/hr 04/15/24 13:00 04/15/24 14:38 0.9% Sodium Chloride 1,000 Ml IV 04/15/24 22:59 100 mls/hr .Q10H MARTHA Administration Levothyroxine Sodium 112 mcg 04/15/24 06:30 04/15/24 06:45 Levothyroxine 112 Mcg Tablet PO 04/15/25 06:29 112 mcg DAILY.0630 MARTHA Administration Montelukast Sodium 10 mg 04/14/24 22:00 04/14/24 21:43 Montelukast 10 Mg Tablet PO 04/14/25 21:59 10 mg QHS MARTHA Administration Ondansetron HCl 4 mg 04/14/24 16:24 Ondansetron 4 Mg/2 Ml Vial IV-PUSH 04/14/25 16:23 Q8H PRN Nausea And Vomiting Oxycodone/Acetaminophen 1 tab 04/14/24 16:24 Oxycodone/Acetaminophen 5-325 Mg Tablet PO Q4H PRN Pain Scale 4 - 7 Potassium Chloride 20 meq 04/14/24 21:00 04/15/24 08:45 Potassium Chloride Er 20 Meq Tab.Er.Prt PO 04/14/25 20:59 20 meq BID MARTHA Administration Rivaroxaban 10 mg 04/15/24 09:00 04/15/24 08:45 Rivaroxaban 10 Mg Tablet PO 04/15/25 08:59 10 mg DAILY MARTHA Administration Sodium Chloride 0 ml 04/14/24 10:36 04/15/24 02:02 Sodium Chloride 0.9 % 10 Ml Syringe IV-PUSH 04/14/25 10:35 10 ml PRN PRN Administration Flush Sodium Chloride 0 ml 04/14/24 22:00 04/15/24 14:39 Sodium Chloride 0.9 % 10 Ml Syringe IV-PUSH 04/14/25 21:59 Not Given QSHIFT MARTHA Vitamin A/Vitamin D 1 applic 04/15/24 10:32 Vitamin A & D Oint 113 Gm Tube TOPICAL 04/15/25 10:31 PRN PRN rash A&P - Hospitalist Assessment/Plan (1) Dehydration: (2) Syncope: (3) Hypokalemia: (4) Secondary hyperparathyroidism: (5) Hypertensive chronic kidney disease with stage 1 through stage 4 chronic kidney disease, or unspecified chronic kidney disease: (6) CKD (chronic kidney disease) stage 3, GFR 30-59 ml/min: Plan This is a 78-year-old female with significant past medical history of hypertension, hyperlipidemia,CAD status post stent placement on January 2023, hypothyroidism, morbid obesity, vitamin D deficiency, recent admission in outside hospital for subarachnoid hemorrhage and was discharged to [facility] from where she was sent home few days ago. 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 She presented with a chief complaints of syncope. Patient mentions that she was trying to get up from the wheelchair and shepassed out. She denies any nausea or vomiting or abdominal pain. She mentions is not having any loose stools. Lab work shows no leukocytosis, sodium of 130, potassium of 2, chloride of 77, creatinineof 1.7 troponin of 81, BNP 171 urinalysis not suggestive of UTI Chest x-ray shows no acute findings, EKG shows normal sinus rhythm with some PVC Assessment-hypokalemia likely in setting of GI loss and/or medication Plan: -Admit to regular nursing floor -Patient got 2 L of NS in the ED and is currently on IV maintenance fluid. -Monitor orthostatic vitals -Hold on Lasix and indapamide -Follow-up morning labs -Continue POA medications-Lipitor, carvedilol, Cymbalta, levothyroxine, Singulair, potassium -Patient mentions aspirin was discontinued recently after she had subarachnoid hemorrhage. -Nephrology also consulted-appreciate recommendation Heart healthy diet -Full code Documented By: Kb Tavares MD 04/15/24 1603 Signed By: 04/15/24 1604 [facility]02-12-2025 Consult note Author Roberto Carlos Mohr [facility] Note Date/Time April 15, 2024 12:25pm [facility] ENTER [address] [place] [address] Nephrology Consult Note Signed Patient: Katarina Camara MR#: [id number] : 1945 Acct:[id number] Age/Sex: 78 / F Adm Date: 5 Loc: Room: [address] [place] [address] Type: ADM IN Attending Dr: Kb Tavares MD Copies to: MD Roberto Carlos Lanza MD Darrin R Bunting, DO~ Providers Consult Date: 04/15/24 Requesting Provider: Kb Tavares MD Primary Care Provider: Wesley Tena DO [facility] Reason for Consult: Acute kidney injury with electrolytes imbalance History of Present Illness: Patient this is 78-year-old female patient with past medical history of hypertension, hyperlipidemia, chronic disease status post stent placement last year, hypothyroidism, morbid obesity, recent subarachnoid hemorrhage. Patient was sent from [facility] to [facility] for syncopal episode. In the emergency room she was found to be hypotensive above revealed hyponatremia with sodium 130mmol/L, hypokalemia with initial potassium level 2.0, acute kidney injury with creatinine up to 1.7 mg deciliter from baseline around 1.0, serum bicarb 45. Patient had recent admission of C. difficile colitis and she she just finished oral vancomycin course. Patient continues to have diarrhea I reviewed the patient's home medications. She is on indapamide and Lasix for hypertension and volume management.. Patient follows with the cardiology clinicDr. Calloway. Patient was given 2 L of normal saline with improvement in blood pressure. Potassium was replaced with oral and IV KCl. Repeated lab this morning showed creatinine 1.46 mg deciliter, potassium 2.7 mmol/L, bicarb 27.8 mmol/L and sodium 134 mmol/L. Patient says she is feeling better. Does not feel dizziness. Blood pressure monisha encounter 109/72 Patient said that she continues to have diarrhea. She had 3 BM so far today. Denied cramps. No chest pain. No shortness of breath. She is currently on room air Review of Systems Review of Systems Review of systems: 12 system review is negative today [facility] Medical History Emphysema lung Problem List clean-up per request of Phys. EHR Cmte Asthma Problem List clean-up per request of Phys. EHR Cmte COPD (chronic obstructive pulmonary disease) Problem List clean-up per request of Phys. EHR Cmte Chronic bronchitis Problem List clean-up per request of Phys. EHR Cmte Ganglion cyst left wrist removed and came back Problem List clean-up per request of Phys. EHR Cmte Breast cancer Problem List clean-up per request of Phys. EHR Cmte History of cluster headache Problem List clean-up per request of Phys. EHR Cmte Migraine history of Problem List clean-up per request of Phys. EHR Cmte Fibromyalgia Problem List clean-up per request of Phys. EHR Cmte DDD (degenerative disc disease) Problem List clean-up per request of Phys. EHR Cmte Osteoarthritis Problem List clean-up per request of Phys. EHR Cmte Osteopenia Problem List clean-up per request of Phys. EHR Cmte Kidney failure stage 3 Problem List clean-up per request of Phys. EHR Cmte Kidney stones Problem List clean-up per request of Phys. EHR Cmte Ovarian cyst Problem List clean-up per request of Phys. EHR Cmte Irritable bowel disease Problem List clean-up per request of Phys. EHR Cmte Hypothyroidism Problem List clean-up per request of Phys. EHR Cmte Diabetes mellitus, type 2 Problem List clean-up per request of Phys. EHR Cmte Hypertension Problem List clean-up per request of Phys. EHR Cmte Hyperlipidemia Problem List clean-up per request of Phys. EHR Cmte CHF (congestive heart failure) Problem List clean-up per request of Phys. [facility]HR [facility] History History of lithotripsy Problem List clean-up per request of Phys. EHR Cmte History of dilatation and curettage Problem List clean-up per request of Phys. EHR Cmte History of phacoemulsification of cataract of both eyes with intraocular lens implantation Problem List clean-up per request of Phys. EHR [facility] History of hysterectomy Problem List clean-up per request of Phys. EHR [facility] History of appendectomy Problem List clean-up per request of Phys. EHR [facility] History of cholecystectomy Problem List clean-up per request of Phys. EHR [facility] Family History Sister Brain aneurysm Brother Brain aneurysm Brother Brain tumor (benign) Brother Bladder cancer S/P CABG x 1 Sister Colon cancer Sister Retinal micro-aneurysm of right eye Brother Cancer Legacy FamHx Relation: Brother(s); Legacy FamHx Problem: Diagnosed with Cancer Hypertension Legacy FamHx Relation: Brother(s) Father Family/Other Legacy FamHx Problem: 1 BROTHER BRAIN TUMOR:1 DAUGHTER DROWNED:1 SISTER ANEURYSM:1 SISTER CANCER Mother Heart disease Son Cancer Legacy FamHx Problem: Diagnosed with Cancer Sister Family history of mental disorder Legacy FamHx Problem: Diagnosed with Mental Illness Cancer Legacy FamHx Problem: Diagnosed with Cancer Social History Smoking Status: Never smoker Tobacco Type: cigarettes Substance Use Type: None Meds Medications & Allergies Allergies adhesive tape Allergy (Unknown, Verified 04/14/24 10:36) rash ibuprofen (Motrin) Allergy (Unknown, Verified 04/14/24 10:36) Unknown Reaction pregabalin (From Lyrica) Allergy (Unknown, Verified 04/14/24 10:36) Confusion, CONFUSIONAL STATE ramipril Allergy (Verified 04/14/24 10:36) Cough Home Medications alendronate 70 mg tablet 70 mg PO FR@0900 01/15/23 [History Confirmed 04/14/24] duloxetine 60 mg capsule,delayed release (Cymbalta) 60 mg PO DAILY 01/15/23 [History Confirmed 04/14/24] levothyroxine 112 mcg tablet 112 mcg PO QAM 01/15/23 [History Confirmed 04/14/24] montelukast 10 mg tablet 10 mg PO QHS 01/15/23 [History Confirmed 04/14/24] rosuvastatin 20 mg tablet 20 mg PO QHS 01/15/23 [History Confirmed 04/14/24] indapamide 1.25 mg tablet 1.25 mg PO DAILY 12/02/23 [History Confirmed 04/14/24] acetaminophen 500 mg tablet 500 mg PO Q6HR PRN pain 04/14/24 [History Confirmed 04/14/24] albuterol sulfate 90 mcg/actuation aerosol inhaler 1 puff inhalation Q6HR PRN shortness of breath or wheezing 04/14/24 [History Confirmed 04/14/24] aspirin 81 mg tablet,delayed release (Adult Low Dose Aspirin) 81 mg PO DAILY 04/14/24 [History Confirmed 04/14/24] carvedilol 3.125 mg tablet 3.125 mg PO BID 04/14/24 [History Confirmed 04/14/24] furosemide 40 mg tablet (Lasix) 40 mg PO BID 04/14/24 [History Confirmed 04/14/24] potassium chloride 20 mEq tablet,extended release 20 meq PO BID 04/14/24 [History Confirmed 04/14/24] triamcinolone acetonide 0.1 % topical cream 1 applic topical TID 04/14/24 [History Confirmed 04/14/24] vancomycin 125 mg capsule 125 mg PO TID 04/14/24 [History Confirmed 04/14/24] Active Medications: Active Medications Acetaminophen (Acetaminophen 500 Mg Tablet) 500 mg PO Q6HR PRN PRN Reason: pain Stop: 04/14/25 16:19 Acetaminophen (Acetaminophen 325 Mg Tablet) 650 mg PO Q6HR PRN PRN Reason: Pain Scale 1 - 3 or fever Stop: 04/14/25 16:23 Albuterol (Albuterol Hfa 60 Puff/8 Gram Inhaler) 1 puff INHALATION Q6HR PRN PRN Reason: shortness of breath or wheezing Stop: 04/14/25 16:19 Atorvastatin Calcium (Atorvastatin 40 Mg Tablet) 40 mg PO QHS [facility] Stop: 04/14/25 21:59 Last Admin: 04/14/24 21:43 Dose: 40 mg Carvedilol (Carvedilol 3.125 Mg Tablet) 3.125 mg PO BID.WITH.MEALS [facility] Stop: 04/14/25 16:59 Last Admin: 04/15/24 08:44 Dose: 3.125 mg Duloxetine HCl (Duloxetine 60 Mg Capsule.Dr) 60 mg PO DAILY MARTHA Stop: 04/15/25 08:59 Last Admin: 04/15/24 08:45 Dose: 60 mg Potassium Chloride 20 meq/ (Sodium Chloride) 260 mls @ 130 mls/hr IV Q2H MARTHA Stop: 04/15/24 16:29 Last Admin: 04/15/24 11:15 Dose: 130 mls/hr Levothyroxine Sodium (Levothyroxine 112 Mcg Tablet) 112 mcg PO DAILY.0630 [facility] Stop: 04/15/25 06:29 Last Admin: 04/15/24 06:45 Dose: 112 mcg Montelukast Sodium (Montelukast 10 Mg Tablet) 10 mg PO QHS [facility] Stop: 04/14/25 21:59 Last Admin: 04/14/24 21:43 Dose: 10 mg Ondansetron HCl (Ondansetron 4 Mg/2 Ml Vial) 4 mg IV-PUSH Q8H PRN PRN Reason: Nausea And Vomiting Stop: 04/14/25 16:23 Oxycodone/Acetaminophen (Oxycodone/Acetaminophen 5-325 Mg Tablet) 1 tab PO Q4H PRN PRN Reason: Pain Scale 4 - 7 Potassium Chloride (Potassium Chloride Er 20 Meq Tab.Er.Prt) 20 meq PO BID [facility] Stop: 04/14/25 20:59 Last Admin: 04/15/24 08:45 Dose: 20 meq Rivaroxaban (Rivaroxaban 10 Mg Tablet) 10 mg PO DAILY MARTHA Stop: 04/15/25 08:59 Last Admin: 04/15/24 08:45 Dose: 10 mg Sodium Chloride (Sodium Chloride 0.9 % 10 Ml Syringe) 0 ml IV-PUSH PRN PRN PRN Reason: Flush Stop: 04/14/25 10:35 Last Admin: 04/15/24 02:02 Dose: 10 ml Sodium Chloride (Sodium Chloride 0.9 % 10 Ml Syringe) 0 ml IV-PUSH QSHIFT [facility] Stop: 04/14/25 21:59 Last Admin: 04/15/24 06:45 Dose: 10 ml Vitamin A/Vitamin D (Vitamin A & D Oint 113 Gm Tube) 1 applic TOPICAL PRN PRN PRN Reason: rash Stop: 04/15/25 10:31 Exam Physical Exam Vital Signs: Temp Pulse Resp BP Pulse Ox O2 Del Method 97.4 F L 76 16 101/48 L 97 Room Air 04/15/24 08:00 04/15/24 11:18 04/15/24 11:18 04/15/24 11:18 04/15/24 11:18 04/15/24 11:18 Narrative: General: No acute distress Head :atraumatic normocephalic Eyes: PERRLA. Neck: no JVD no bruit. Heart: S1-S2. RRR Respiratory: Clear to auscultation. No wheezing. No crackles Abdomen: Soft, positive bowel sounds,no tenderness. Neurology: Awake alert oriented x3. No focal deficits Extremity. No cyanosis. No edema Skin: No skin rash Results - Nephrology Labs 04/15/24 07:26 04/15/24 07:26 Labs: 04/14/24 04/14/24 04/14/24 11:51 14:55 17:09 BUN 15 13 Creatinine 1.70 H 1.52 H Phosphorus 3.2 3.0 Albumin 3.9 Urine Color Colorless Urine Appearance Clear Urine pH 7.0 Ur Specific [place] 1.006 Urine Protein Negative Urine Glucose (UA) Normal Urine Ketones Negative Urine Occult Blood 1+ H Urine Nitrite Negative Ur Leukocyte Esterase 3+ H Urine RBC 1-2 Urine WBC 1-2 Urine Bacteria Rare 04/15/24 07:26 BUN 13 Creatinine 1.46 H Phosphorus 2.5 Albumin 3.2 L Urine Color Urine Appearance Urine pH Ur Specific [place] Urine Protein Urine Glucose (UA) Urine Ketones Urine Occult Blood Urine Nitrite Ur Leukocyte Esterase Urine RBC Urine WBC Urine Bacteria Radiology Impressions Impressions - last 24 hours: Any impression(s) listed above is documentation that was entered by the reading physician into a diagnostic report(s) for Katarina Camara. I have reviewed the report(s) and am incorporating any findings in the treatment plan of this patient where applicable. A&P - Nephrology Assessment/Plan (1) Acute kidney injury: Assessment/Problem Details: Acute kidney injury likely prerenal from deplete intravascular volume and low blood pressure at presentation. Blood pressure in the emergency room was 102/51. UA is benign (2) Hypokalemia: Assessment/Problem Details: This is likely related to GI potassium loss in addition to diuretics. Patient presented with a potassium of 2.0 mmol/L. Currently home diuretics are on hold (3) Hyponatremia: Assessment/Problem Details: This is likely from deplete intravascular volume. Serum sodium level improved with intravascular volume expansion (4) Dehydration: Assessment/Problem Details: Patient presented with syncope from low blood pressure. Patient has been on diuretics and has been having diarrhea with reduced oral intake. Blood pressureimproved with intravascular volume expansion (5) Metabolic alkalosis: Assessment/Problem Details: Patient might have baseline metabolic alkalosis compensating for respiratory acidosis from COPD. Worsening metabolic alkalosis likely from contraction. Serum bicarb level improved with intravascular volume expansion Plan * Kidney function improved with intravascular volume expansion. Blood pressure remains borderline low. Will resume normal saline at 100 cc/h * Patient received oral KCl 20 mill complaint this morning. Will give the patient additional 60 mill equivalent today * Will continue to monitor electrolytes and replace as needed * Continue to hold home diuretics. Okay to continue carvedilol. Continue to monitor blood pressure * Check CBC along with renal function panel in a.m. Thank you for allowing me to participate in Mrs. Camara's care. Renal team willcontinue to follow. Call if any question or concern Documented By: Roberto Carlos Mohr MD 04/15/24 1211 Signed By: <Electronically signed by Roberto Carlos Mohr MD> 04/15/24 1225 [facility] Work Phone: 1(856) 174-732002-12-2025 Consult [place] [id number] Nephrology Consult Note Signed Patient: Katarina Camara MR#: [id number] : 1945 Acct:[id number] Age/Sex: 78 / F Adm Date: 5 Loc: Room: [address] [place] [address] Type: ADM IN Attending Dr: Kb Tavares MD Copies to: MD Roberto Carlos Lanza MD Darrin R Bunting, DO~ Providers Consult Date: 04/15/24 Requesting Provider: Kb Tavares MD Primary Care Provider: Wesley Tena DO HPI Reason for Consult: Acute kidney injury with electrolytes imbalance History of Present Illness: Patient this is 78-year-old female patient with past medical history of hypertension, hyperlipidemia, chronic disease status post stent placement last year, hypothyroidism, morbid obesity, recent subarachnoid hemorrhage. Patient was sent from [facility] to [facility] for syncopal episode. In the emergency room she was found to be hypotensive above revealed hyponatremia with sodium 130mmol/L, hypokalemia with initial potassium level 2.0, acute kidney injury with creatinine up to 1.7 mg deciliter from baseline around 1.0, serum bicarb 45. Patient had recent admission of C. difficile colitis and she she just finished oral vancomycin course. Patient continues to have diarrhea I reviewed the patient's home medications. She is on indapamide and Lasix for hypertension and volume management.. Patient follows with the cardiology clinicDr. Calloway. Patient was given 2 L of normal saline with improvement in blood pressure. Potassium was replaced with oral and IV KCl. Repeated lab this morning showed creatinine 1.46 mg deciliter, potassium 2.7 mmol/L, bicarb 27.8 mmol/L and sodium 134 mmol/L. Patient says she is feeling better. Does not feel dizziness. Blood pressure monisha encounter 109/72 Patient said that she continues to have diarrhea. She had 3 BM so far today. Denied cramps. No chest pain. No shortness of breath. She is currently on room air Review of Systems Review of Systems Review of systems: 12 system review is negative today [facility] Medical History Emphysema lung Problem List clean-up per request of Phys. EHR Cmte Asthma Problem List clean-up per request of Phys. EHR Cmte COPD (chronic obstructive pulmonary disease) Problem List clean-up per request of Phys. EHR Cmte Chronic bronchitis Problem List clean-up per request of Phys. EHR Cmte Ganglion cyst left wrist removed and came back Problem List clean-up per request of Phys. EHR Cmte Breast cancer Problem List clean-up per request of Phys. EHR Cmte History of cluster headache Problem List clean-up per request of Phys. EHR Cmte Migraine history of Problem List clean-up per request of Phys. EHR Cmte Fibromyalgia Problem List clean-up per request of Phys. EHR Cmte DDD (degenerative disc disease) Problem List clean-up per request of Phys. EHR Cmte Osteoarthritis Problem List clean-up per request of Phys. EHR Cmte Osteopenia Problem List clean-up per request of Phys. EHR Cmte Kidney failure stage 3 Problem List clean-up per request of Phys. EHR Cmte Kidney stones Problem List clean-up per request of Phys. EHR Cmte Ovarian cyst Problem List clean-up per request of Phys. EHR Cmte Irritable bowel disease Problem List clean-up per request of Phys. EHR Cmte Hypothyroidism Problem List clean-up per request of Phys. EHR Cmte Diabetes mellitus, type 2 Problem List clean-up per request of Phys. EHR Cmte Hypertension Problem List clean-up per request of Phys. EHR Cmte Hyperlipidemia Problem List clean-up per request of Phys. EHR Cmte CHF (congestive heart failure) Problem List clean-up per request of Phys. EHR [facility] Surgical History History of lithotripsy Problem List clean-up per request of Phys. EHR Cmte History of dilatation and curettage Problem List clean-up per request of Phys. EHR [facility] History of phacoemulsification of cataract of both eyes with intraocular lens implantation Problem List clean-up per request of Phys. EHR Cmte History of hysterectomy Problem List clean-up per request of Phys. EHR Cmte History of appendectomy Problem List clean-up per request of Phys. EHR Cmte History of cholecystectomy Problem List clean-up per request of Phys. EHR Cmte Family History Sister Brain aneurysm Brother Brain aneurysm Brother Brain tumor (benign) Brother Bladder cancer S/P CABG x 1 Sister Colon cancer Sister Retinal micro-aneurysm of right eye Brother Cancer Legacy FamHx Relation: Brother(s); Legacy FamHx Problem: Diagnosed with Cancer Hypertension Legacy FamHx Relation: Brother(s) Father Family/Other Legacy FamHx Problem: 1 BROTHER BRAIN TUMOR:1 DAUGHTER DROWNED:1 SISTER ANEURYSM:1 SISTER CANCER Mother Heart disease Son Cancer Legacy FamHx Problem: Diagnosed with Cancer Sister Family history of mental disorder Legacy FamHx Problem: Diagnosed with Mental Illness Cancer Legacy FamHx Problem: Diagnosed with Cancer Social History Smoking Status: Never smoker Tobacco Type: cigarettes Substance Use Type: None Meds Medications & Allergies Allergies adhesive tape Allergy (Unknown, Verified 04/14/24 10:36) rash ibuprofen (Motrin) Allergy (Unknown, Verified 04/14/24 10:36) Unknown Reaction pregabalin (From Lyrica) Allergy (Unknown, Verified 04/14/24 10:36) Confusion, CONFUSIONAL STATE ramipril Allergy (Verified 04/14/24 10:36) Cough Home Medications alendronate 70 mg tablet 70 mg PO FR@0900 01/15/23 [History Confirmed 04/14/24] duloxetine 60 mg capsule,delayed release (Cymbalta) 60 mg PO DAILY 01/15/23 [History Confirmed 04/14/24] levothyroxine 112 mcg tablet 112 mcg PO QAM 01/15/23 [History Confirmed 04/14/24] montelukast 10 mg tablet 10 mg PO QHS 01/15/23 [History Confirmed 04/14/24] rosuvastatin 20 mg tablet 20 mg PO QHS 01/15/23 [History Confirmed 04/14/24] indapamide 1.25 mg tablet 1.25 mg PO DAILY 12/02/23 [History Confirmed 04/14/24] acetaminophen 500 mg tablet 500 mg PO Q6HR PRN pain 04/14/24 [History Confirmed 04/14/24] albuterol sulfate 90 mcg/actuation aerosol inhaler 1 puff inhalation Q6HR PRN shortness of breath or wheezing 04/14/24 [History Confirmed 04/14/24] aspirin 81 mg tablet,delayed release (Adult Low Dose Aspirin) 81 mg PO DAILY 04/14/24 [History Confirmed 04/14/24] carvedilol 3.125 mg tablet 3.125 mg PO BID 04/14/24 [History Confirmed 04/14/24] furosemide 40 mg tablet (Lasix) 40 mg PO BID 04/14/24 [History Confirmed 04/14/24] potassium chloride 20 mEq tablet,extended release 20 meq PO BID 04/14/24 [History Confirmed 04/14/24] triamcinolone acetonide 0.1 % topical cream 1 applic topical TID 04/14/24 [History Confirmed 04/14/24] vancomycin 125 mg capsule 125 mg PO TID 04/14/24 [History Confirmed 04/14/24] Active Medications: Active Medications Acetaminophen (Acetaminophen 500 Mg Tablet) 500 mg PO Q6HR PRN PRN Reason: pain Stop: 04/14/25 16:19 Acetaminophen (Acetaminophen 325 Mg Tablet) 650 mg PO Q6HR PRN PRN Reason: Pain Scale 1 - 3 or fever Stop: 04/14/25 16:23 Albuterol (Albuterol Hfa 60 Puff/8 Gram Inhaler) 1 puff INHALATION Q6HR PRN PRN Reason: shortness of breath or wheezing Stop: 04/14/25 16:19 Atorvastatin Calcium (Atorvastatin 40 Mg Tablet) 40 mg PO QHS MARTHA Stop: 04/14/25 21:59 Last Admin: 04/14/24 21:43 Dose: 40 mg Carvedilol (Carvedilol 3.125 Mg Tablet) 3.125 mg PO BID.WITH.MEALS MARTHA Stop: 04/14/25 16:59 Last Admin: 04/15/24 08:44 Dose: 3.125 mg Duloxetine HCl (Duloxetine 60 Mg Capsule.Dr) 60 mg PO DAILY MARTHA Stop: 04/15/25 08:59 Last Admin: 04/15/24 08:45 Dose: 60 mg Potassium Chloride 20 meq/ (Sodium Chloride) 260 mls @ 130 mls/hr IV Q2H MARTHA Stop: 04/15/24 16:29 Last Admin: 04/15/24 11:15 Dose: 130 mls/hr Levothyroxine Sodium (Levothyroxine 112 Mcg Tablet) 112 mcg PO DAILY.0630 [facility] Stop: 04/15/25 06:29 Last Admin: 04/15/24 06:45 Dose: 112 mcg Montelukast Sodium (Montelukast 10 Mg Tablet) 10 mg PO QHS [facility] Stop: 04/14/25 21:59 Last Admin: 04/14/24 21:43 Dose: 10 mg Ondansetron HCl (Ondansetron 4 Mg/2 Ml Vial) 4 mg IV-PUSH Q8H PRN PRN Reason: Nausea And Vomiting Stop: 04/14/25 16:23 Oxycodone/Acetaminophen (Oxycodone/Acetaminophen 5-325 Mg Tablet) 1 tab PO Q4H PRN PRN Reason: Pain Scale 4 - 7 Potassium Chloride (Potassium Chloride Er 20 Meq Tab.Er.Prt) 20 meq PO BID [facility] Stop: 04/14/25 20:59 Last Admin: 04/15/24 08:45 Dose: 20 meq Rivaroxaban (Rivaroxaban 10 Mg Tablet) 10 mg PO DAILY [facility] Stop: 04/15/25 08:59 Last Admin: 04/15/24 08:45 Dose: 10 mg Sodium Chloride (Sodium Chloride 0.9 % 10 Ml Syringe) 0 ml IV-PUSH PRN PRN PRN Reason: Flush Stop: 04/14/25 10:35 Last Admin: 04/15/24 02:02 Dose: 10 ml Sodium Chloride (Sodium Chloride 0.9 % 10 Ml Syringe) 0 ml IV-PUSH QSHIFT [facility] Stop: 04/14/25 21:59 Last Admin: 04/15/24 06:45 Dose: 10 ml Vitamin A/Vitamin D (Vitamin A & D Oint 113 Gm Tube) 1 applic TOPICAL PRN PRN PRN Reason: rash Stop: 04/15/25 10:31 Exam Physical Exam Vital Signs: Temp Pulse Resp BP Pulse Ox O2 Del Method 97.4 F L 76 16 101/48 L 97 Room Air 04/15/24 08:00 04/15/24 11:18 04/15/24 11:18 04/15/24 11:18 04/15/24 11:18 04/15/24 11:18 Narrative: General: No acute distress Head :atraumatic normocephalic Eyes: PERRLA. Neck: no JVD no bruit. Heart: S1-S2. RRR Respiratory: Clear to auscultation. No wheezing. No crackles Abdomen: Soft, positive bowel sounds,no tenderness. Neurology: Awake alert oriented x3. No focal deficits Extremity. No cyanosis. No edema Skin: No skin rash Results - Nephrology Labs 04/15/24 07:26 04/15/24 07:26 Labs: 04/14/24 04/14/24 04/14/24 11:51 14:55 17:09 BUN 15 13 Creatinine 1.70 H 1.52 H Phosphorus 3.2 3.0 Albumin 3.9 Urine Color Colorless Urine Appearance Clear Urine pH 7.0 Ur Specific [place] 1.006 Urine Protein Negative Urine Glucose (UA) Normal Urine Ketones Negative Urine Occult Blood 1+ H Urine Nitrite Negative Ur Leukocyte Esterase 3+ H Urine RBC 1-2 Urine WBC 1-2 Urine Bacteria Rare 04/15/24 07:26 BUN 13 Creatinine 1.46 H Phosphorus 2.5 Albumin 3.2 L Urine Color Urine Appearance Urine pH Ur Specific [place] Urine Protein Urine Glucose (UA) Urine Ketones Urine Occult Blood Urine Nitrite Ur Leukocyte Esterase Urine RBC Urine WBC Urine Bacteria Radiology Impressions Impressions - last 24 hours: Any impression(s) listed above is documentation that was entered by the reading physician into a diagnostic report(s) for Katarina Camara. I have reviewed the report(s) and am incorporating any findings in the treatment plan of this patient where applicable. A&P - Nephrology Assessment/Plan (1) Acute kidney injury: Assessment/Problem Details: Acute kidney injury likely prerenal from deplete intravascular volume and low blood pressure at presentation. Blood pressure in the emergency room was 102/51. UA is benign (2) Hypokalemia: Assessment/Problem Details: This is likely related to GI potassium loss in addition to diuretics. Patient presented with a potassium of 2.0 mmol/L. Currently home diuretics are on hold (3) Hyponatremia: Assessment/Problem Details: This is likely from deplete intravascular volume. Serum sodium level improved with intravascular volume expansion (4) Dehydration: Assessment/Problem Details: Patient presented with syncope from low blood pressure. Patient has been on diuretics and has been having diarrhea with reduced oral intake. Blood pressureimproved with intravascular volume expansion (5) Metabolic alkalosis: Assessment/Problem Details: Patient might have baseline metabolic alkalosis compensating for respiratory acidosis from COPD. Worsening metabolic alkalosis likely from contraction. Serum bicarb level improved with intravascular volume expansion Plan * Kidney function improved with intravascular volume expansion. Blood pressure remains borderline low. Will resume normal saline at 100 cc/h * Patient received oral KCl 20 mill complaint this morning. Will give the patient additional 60 mill equivalent today * Will continue to monitor electrolytes and replace as needed * Continue to hold home diuretics. Okay to continue carvedilol. Continue to monitor blood pressure * Check CBC along with renal function panel in a.m. Thank you for allowing me to participate in Mrs. Camaar's care. Renal team willcontinue to follow. Call if any question or concern Documented By: Roberto Carlos Mohr MD 04/15/24 1211 Signed By: 04/15/24 1225 [facility]02-11-2025 History and physical note Author Kb Tavares [facility] Note Date/Time April 14, 2024 5:38pm [facility] ENTER [address] [place] [address] Hospitalist H&P Signed Patient: Katarina Camara MR#: [id number] : 1945 Acct:[id number] Age/Sex: 78 / F Adm Date: 5 Loc: Room: [address] [place] [address] Type: ADM IN Attending Dr: Kb Tavares MD Copies to: MD Wesley Lanza,DO~ HPI DATE OF EXAMINATION: 04/14/24 CHIEF COMPLAINT: Syncope HISTORY OF PRESENT ILLNESS: This is a 78-year-old female with significant past medical history of hypertension, hyperlipidemia, CAD status post stent placement on January 2023, hypothyroidism, morbid obesity, vitamin D deficiency, recent admission in outside hospital for subarachnoid hemorrhage and was discharged to care home facility from where she was sent home few days ago. 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 She presented with a chief complaints of syncope. Patient mentions that she was trying to get up from the wheelchair and she passed out. She denies any nausea or vomiting or abdominal pain. She mentions is not having any loose stools. Lab work shows no leukocytosis, sodium of 130, potassium of 2, chloride of 77, creatinine of 1.7 troponin of 81, BNP 171 urinalysis not suggestive of UTI Chest x-ray shows no acute findings, EKG shows normal sinus rhythm with some PVC Review of Systems Review of Systems All other systems reviewed & are negative unless noted below or in HPI [facility] Medical History Emphysema lung Problem List clean-up per request of Phys. EHR Cmte Asthma Problem List clean-up per request of Phys. EHR Cmte COPD (chronic obstructive pulmonary disease) Problem List clean-up per request of Phys. EHR Cmte Chronic bronchitis Problem List clean-up per request of Phys. EHR Cmte Ganglion cyst left wrist removed and came back Problem List clean-up per request of Phys. EHR Cmte Breast cancer Problem List clean-up per request of Phys. EHR [facility] History of cluster headache Problem List clean-up per request of Phys. EHR Cmte Migraine history of Problem List clean-up per request of Phys. EHR Cmte Fibromyalgia Problem List clean-up per request of Phys. EHR [facility] DDD (degenerative disc disease) Problem List clean-up per request of Phys. EHR Cmte Osteoarthritis Problem List clean-up per request of Phys. EHR Cmte Osteopenia Problem List clean-up per request of Phys. EHR Cmte Kidney failure stage 3 Problem List clean-up per request of Phys. EHR Cmte Kidney stones Problem List clean-up per request of Phys. EHR Cmte Ovarian cyst Problem List clean-up per request of Phys. EHR Cmte Irritable bowel disease Problem List clean-up per request of Phys. EHR Cmte Hypothyroidism Problem List clean-up per request of Phys. EHR [facility] Diabetes mellitus, type 2 Problem List clean-up per request of Phys. EHR Cmte Hypertension Problem List clean-up per request of Phys. EHR Cmte Hyperlipidemia Problem List clean-up per request of Phys. EHR Cmte CHF (congestive heart failure) Problem List clean-up per request of Phys. EHR [facility] Surgical History History of lithotripsy Problem List clean-up per request of Phys. EHR [facility] History of dilatation and curettage Problem List clean-up per request of Phys. EHR [facility] History of phacoemulsification of cataract of both eyes with intraocular lens implantation Problem List clean-up per request of Phys. EHR Cmte History of hysterectomy Problem List clean-up per request of Phys. EHR Cmte History of appendectomy Problem List clean-up per request of Phys. EHR Cmte History of cholecystectomy Problem List clean-up per request of Phys. EHR Cmte Family History Sister Brain aneurysm Brother Brain aneurysm Brother Brain tumor (benign) Brother Bladder cancer S/P CABG x 1 Sister Colon cancer Sister Retinal micro-aneurysm of right eye Brother Cancer Legacy FamHx Relation: Brother(s); Legacy FamHx Problem: Diagnosed with Cancer Hypertension Legacy FamHx Relation: Brother(s) Father Family/Other Legacy FamHx Problem: 1 BROTHER BRAIN TUMOR:1 DAUGHTER DROWNED:1 SISTER ANEURYSM:1 SISTER CANCER Mother Heart disease Son Cancer Legacy FamHx Problem: Diagnosed with Cancer Sister Family history of mental disorder Legacy FamHx Problem: Diagnosed with Mental Illness Cancer Legacy FamHx Problem: Diagnosed with Cancer Social History Smoking Status: Never smoker Tobacco Type: cigarettes Substance Use Type: None Meds Medications and Allergies Allergies adhesive tape Allergy (Unknown, Verified 04/14/24 10:36) rash ibuprofen (Motrin) Allergy (Unknown, Verified 04/14/24 10:36) Unknown Reaction pregabalin (From Lyrica) Allergy (Unknown, Verified 04/14/24 10:36) Confusion, CONFUSIONAL STATE ramipril Allergy (Verified 04/14/24 10:36) Cough Home Medications alendronate 70 mg tablet 70 mg PO FR@0900 01/15/23 [History Confirmed 04/14/24] duloxetine 60 mg capsule,delayed release (Cymbalta) 60 mg PO DAILY 01/15/23 [History Confirmed 04/14/24] levothyroxine 112 mcg tablet 112 mcg PO QAM 01/15/23 [History Confirmed 04/14/24] montelukast 10 mg tablet 10 mg PO QHS 01/15/23 [History Confirmed 04/14/24] rosuvastatin 20 mg tablet 20 mg PO QHS 01/15/23 [History Confirmed 04/14/24] indapamide 1.25 mg tablet 1.25 mg PO DAILY 12/02/23 [History Confirmed 04/14/24] acetaminophen 500 mg tablet 500 mg PO Q6HR PRN pain 04/14/24 [History Confirmed 04/14/24] albuterol sulfate 90 mcg/actuation aerosol inhaler 1 puff inhalation Q6HR PRN shortness of breath or wheezing 04/14/24 [History Confirmed 04/14/24] aspirin 81 mg tablet,delayed release (Adult Low Dose Aspirin) 81 mg PO DAILY 04/14/24 [History Confirmed 04/14/24] carvedilol 3.125 mg tablet 3.125 mg PO BID 04/14/24 [History Confirmed 04/14/24] furosemide 40 mg tablet (Lasix) 40 mg PO BID 04/14/24 [History Confirmed 04/14/24] potassium chloride 20 mEq tablet,extended release 20 meq PO BID 04/14/24 [History Confirmed 04/14/24] triamcinolone acetonide 0.1 % topical cream 1 applic topical TID 04/14/24 [History Confirmed 04/14/24] vancomycin 125 mg capsule 125 mg PO TID 04/14/24 [History Confirmed 04/14/24] Exam Physical Exam Vital Signs: Temp Pulse Resp BP Pulse Ox O2 Del Method 98.0 F 85 20 111/69 93 L Room Air 04/14/24 15:12 04/14/24 15:12 04/14/24 15:12 04/14/24 15:12 04/14/24 15:12 04/14/24 15:12 Narrative: General: Awake alert, no acute distress HEENT: head atraumatic, normocephalic, moist mucous membranes Neck: supple no masses, no lymphadenopathy CVS: regular rate and rhythm, no murmurs or gallops Respiratory: clear to auscultation bilaterally, no wheezing or crackles, symmetric expansion GI: soft, nondistended, nontender, positive bowel sounds with no organomegaly Extremity: moves all extremities, no restrictions of movements, no calf tenderness Neuro: AOx3, CN II-VII intact. Moves all extremities in all planes of motion. Skin: intact no rashes or lesions Results - Hospitalist H&P Lab Results Labs: Laboratory Last Values Corrected WBC 8.7 X10E3/uL (3.8-11.6) 04/14/24 11:51 Uncorrected WBC Count 8.7 x10E3/uL (3.8-11.6) 04/14/24 11:51 RBC 4.96 x10E6/uL (3.60-5.00) 04/14/24 11:51 Hgb 15.7 g/dL (11.8-15.4) H 04/14/24 11:51 Hct 44.5 % (34.0-46.4) 04/14/24 11:51 MCV 89.7 fl (80-100) 04/14/24 11:51 MCH 31.7 pg (24.7-34.3) 04/14/24 11:51 MCHC 35.3 g/dL (32.0-35.0) H 04/14/24 11:51 RDW 14.4 % (11.9-15.3) 04/14/24 11:51 Plt Count 208 x10E3/uL (150-450) 04/14/24 11:51 MPV 8.6 fl (6.3-10.7) 04/14/24 11:51 Neut % (Auto) 73.7 % (.) 04/14/24 11:51 Lymph % (Auto) 11.5 % (.) 04/14/24 11:51 Emmons % (Auto) 11.9 % (.) 04/14/24 11:51 Eos % (Auto) 2.3 % (.) 04/14/24 11:51 Baso % (Auto) 0.6 % (.) 04/14/24 11:51 Nucleat RBC Rel Count 0.1 /100 WBC (0-0.5) 04/14/24 11:51 Neut # (Auto) 6.4 x10E3/uL (1.8-7.7) 04/14/24 11:51 Lymph # (Auto) 1.0 x10E3/uL (1.00-4.8) 04/14/24 11:51 Emmons # (Auto) 1.0 x10E3/uL (0.0-0.8) H 04/14/24 11:51 Eos # (Auto) 0.2 x10E3/uL (0.0-0.45) 04/14/24 11:51 Baso # (Auto) 0.1 x10E3/uL (0.0-0.2) 04/14/24 11:51 Monocyte Dist Width 20.68 % (0.00-20.00) H 04/14/24 11:51 PT 10.9 Seconds (9.0-12.9) 04/14/24 11:51 INR 1.0 04/14/24 11:51 PHA Creatinine Clear 27.96 04/14/24 11:51 Sodium 130 mmol/L (136-145) L 04/14/24 11:51 Potassium 2.0 mmol/L (3.5-5.1) L* 04/14/24 11:51 Chloride 77 mmol/L (98-107) L 04/14/24 11:51 Carbon Dioxide 44.2 mmol/L (21.0-31.0) H 04/14/24 11:51 Anion Gap 10.8 mEq/L (6.0-15.0) 04/14/24 11:51 BUN 15 mg/dL (7-25) 04/14/24 11:51 Creatinine 1.70 mg/dL (0.60-1.20) H 04/14/24 11:51 Est GFR (CKD-EPI) 30.887 mL/Min 04/14/24 11:51 Glucose 117 mg/dL (70-100) H 04/14/24 11:51 Calcium 9.3 mg/dL (8.6-10.3) 04/14/24 11:51 Phosphorus 3.2 mg/dL (2.5-4.5) 04/14/24 11:51 Magnesium 2.2 mg/dL (1.9-2.7) 04/14/24 11:51 Magnesium Cancelled 04/14/24 11:51 Total Bilirubin 1.5 mg/dl (0.3-1.0) H 04/14/24 11:51 Direct Bilirubin 0.20 mg/dL (0.03-0.18) H 04/14/24 11:51 Indirect Bilirubin 1.3 mg/dL 04/14/24 11:51 AST 33 U/L (13-39) 04/14/24 11:51 ALT 17 U/L (7-52) 04/14/24 11:51 Alkaline Phosphatase 86 U/L (34-104) 04/14/24 11:51 Total Creatine Kinase 151 U/L (30-223) 04/14/24 11:51 Troponin I High Sens 81 ng/L (0-15) H* 04/14/24 11:51 B-Natriuretic Peptide 171.0 pg/mL (5-100) H 04/14/24 11:51 Total Protein 6.3 gm/dL (6.4-8.9) L 04/14/24 11:51 Albumin 3.9 gm/dL (3.5-5.7) 04/14/24 11:51 Globulin 2.4 gm/dL 04/14/24 11:51 Albumin/Globulin Ratio 1.6 04/14/24 11:51 Urine Color Colorless (Yellow) 04/14/24 14:55 Urine Appearance Clear (Clear) 04/14/24 14:55 Urine pH 7.0 (5.0-9.0) 04/14/24 14:55 Ur Specific [place] 1.006 (1.001-1.030) 04/14/24 14:55 Urine Protein Negative mg/dL (Negative) 04/14/24 14:55 Urine Glucose (UA) Normal mg/dL (Normal) 04/14/24 14:55 Urine Ketones Negative (Negative) 04/14/24 14:55 Urine Occult Blood 1+ (Negative) H 04/14/24 14:55 Urine Nitrite Negative (Negative) 04/14/24 14:55 Urine Bilirubin Negative (Negative) 04/14/24 14:55 Urine Urobilinogen Normal mg/dL (Normal) 04/14/24 14:55 Ur Leukocyte Esterase 3+ (Negative) H 04/14/24 14:55 Urine RBC 1-2 /HPF (0-4) 04/14/24 14:55 Urine WBC 1-2 /HPF (0-4) 04/14/24 14:55 Ur Squamous Epith Cells 1-2 /HPF (0-2) 04/14/24 14:55 Urine Bacteria Rare /HPF (None Seen) 04/14/24 14:55 Hyaline Casts 0-8 /LPF (0-8) 04/14/24 14:55 Urine Mucus Rare /LPF 04/14/24 14:55 Assessment & Plan Assessment/Plan (1) Dehydration: (2) Syncope: (3) Hypokalemia: (4) Hypokalemia: (5) Secondary hyperparathyroidism: (6) Hypertensive chronic kidney disease with stage 1 through stage 4 chronic kidney disease, or unspecified chronic kidney disease: (7) CKD (chronic kidney disease) stage 3, GFR 30-59 ml/min: Plan This is a 78-year-old female with significant past medical history of hypertension, hyperlipidemia, CAD status post stent placement on January 2023, hypothyroidism, morbid obesity, vitamin D deficiency, recent admission in outside hospital for subarachnoid hemorrhage and was discharged to care home facility from where she was sent home few days ago. 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 She presented with a chief complaints of syncope. Patient mentions that she was trying to get up from the wheelchair and she passed out. She denies any nausea or vomiting or abdominal pain. She mentions is not having any loose stools. Lab work shows no leukocytosis, sodium of 130, potassium of 2, chloride of 77, creatinine of 1.7 troponin of 81, BNP 171 urinalysis not suggestive of UTI Chest x-ray shows no acute findings, EKG shows normal sinus rhythm with some PVC Plan: -Admit to regular nursing floor -Patient got 2 L of NS in the ED -Monitor orthostatic vitals -Hold on Lasix and indapamide -Patient got 3 bags of potassium chloride -Follow-up morning labs -Continue POA medications-Lipitor, carvedilol, Cymbalta, levothyroxine, Singulair, potassium -Patient mentions aspirin was discontinued recently after she had subarachnoid hemorrhage. Heart healthy diet -Full code IP vs OBS Justification Based on differential dx, clinical care plan, and risk of adverse events, if untreated, in my clinical judgement this patient requires an acute care setting as: INPATIENT because of an expectation of an over 2 midnight stay. Estimated length of stay (# of days): 3 Documented By: Kb Tavares MD 04/14/24 1726 Signed By: <Electronically signed by Kb Tavares MD> 04/14/24 1738 [facility] Work Phone: 1(139) 859-431602-11-2025 [place] [address] Hospitalist H&P Signed Patient: Katarina Camara MR#: [id number] : 1945 Acct:[id number] Age/Sex: 78 / F Adm Date: 5 Loc: 3T Room: [address] [place] [address] Type: ADM IN Attending Dr: Kb Tavares MD Copies to: MD Wesley Lanza,DO~ HPI DATE OF EXAMINATION: 04/14/24 CHIEF COMPLAINT: Syncope HISTORY OF PRESENT ILLNESS: This is a 78-year-old female with significant past medical history of hypertension, hyperlipidemia,CAD status post stent placement on January 2023, hypothyroidism, morbid obesity, vitamin D deficiency, recent admission in outside hospital for subarachnoid hemorrhage and was discharged to [facility] facility from where she was sent home few days ago. 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 She presented with a chief complaints of syncope. Patient mentions that she was trying to get up from the wheelchair and shepassed out. She denies any nausea or vomiting or abdominal pain. She mentions is not having any loose stools. Lab work shows no leukocytosis, sodium of 130, potassium of 2, chloride of 77, creatinineof 1.7 troponin of 81, BNP 171 urinalysis not suggestive of UTI Chest x-ray shows no acute findings, EKG shows normal sinus rhythm with some PVC Review of Systems Review of Systems All other systems reviewed & are negative unless noted below or in HPI [facility] Medical History Emphysema lung Problem List clean-up per request of Phys. EHR Cmte Asthma Problem List clean-up per request of Phys. EHR Cmte COPD (chronic obstructive pulmonary disease) Problem List clean-up per request of Phys. EHR Cmte Chronic bronchitis Problem List clean-up per request of Phys. EHR Cmte Ganglion cyst left wrist removed and came back Problem List clean-up per request of Phys. EHR Cmte Breast cancer Problem List clean-up per request of Phys. EHR Cmte History of cluster headache Problem List clean-up per request of Phys. EHR Cmte Migraine history of Problem List clean-up per request of Phys. EHR Cmte Fibromyalgia Problem List clean-up per request of Phys. EHR Cmte DDD (degenerative disc disease) Problem List clean-up per request of Phys. EHR Cmte Osteoarthritis Problem List clean-up per request of Phys. EHR Cmte Osteopenia Problem List clean-up per request of Phys. EHR Cmte Kidney failure stage 3 Problem List clean-up per request of Phys. EHR Cmte Kidney stones Problem List clean-up per request of Phys. EHR Cmte Ovarian cyst Problem List clean-up per request of Phys. EHR Cmte Irritable bowel disease Problem List clean-up per request of Phys. EHR Cmte Hypothyroidism Problem List clean-up per request of Phys. EHR Cmte Diabetes mellitus, type 2 Problem List clean-up per request of Phys. EHR Cmte Hypertension Problem List clean-up per request of Phys. EHR Cmte Hyperlipidemia Problem List clean-up per request of Phys. EHR Cmte CHF (congestive heart failure) Problem List clean-up per request of Phys. EHR Cmte Surgical History History of lithotripsy Problem List clean-up per request of Phys. EHR Cmte History of dilatation and curettage Problem List clean-up per request of Phys. EHR Cmte History of phacoemulsification of cataract of both eyes with intraocular lens implantation Problem List clean-up per request of Phys. EHR Cmte History of hysterectomy Problem List clean-up per request of Phys. EHR Cmte History of appendectomy Problem List clean-up per request of Phys. [facility]HR [facility] History of cholecystectomy Problem List clean-up per request of Phys. [facility]HR [facility] Family History Sister Brain aneurysm Brother Brain aneurysm Brother Brain tumor (benign) Brother Bladder cancer S/P CABG x 1 Sister Colon cancer Sister Retinal micro-aneurysm of right eye Brother Cancer Legacy FamHx Relation: Brother(s); Legacy FamHx Problem: Diagnosed with Cancer Hypertension Legacy FamHx Relation: Brother(s) Father Family/Other Legacy FamHx Problem: 1 BROTHER BRAIN TUMOR:1 DAUGHTER DROWNED:1 SISTER ANEURYSM:1 SISTER CANCER Mother Heart disease Son Cancer Legacy FamHx Problem: Diagnosed with Cancer Sister Family history of mental disorder Legacy FamHx Problem: Diagnosed with Mental Illness Cancer Legacy FamHx Problem: Diagnosed with Cancer Social History Smoking Status: Never smoker Tobacco Type: cigarettes Substance Use Type: None Meds Medications and Allergies Allergies adhesive tape Allergy (Unknown, Verified 04/14/24 10:36) rash ibuprofen (Motrin) Allergy (Unknown, Verified 04/14/24 10:36) Unknown Reaction pregabalin (From Lyrica) Allergy (Unknown, Verified 04/14/24 10:36) Confusion, CONFUSIONAL STATE ramipril Allergy (Verified 04/14/24 10:36) Cough Home Medications alendronate 70 mg tablet 70 mg PO FR@0900 01/15/23 [History Confirmed 04/14/24] duloxetine 60 mg capsule,delayed release (Cymbalta) 60 mg PO DAILY 01/15/23 [History Confirmed 04/14/24] levothyroxine 112 mcg tablet 112 mcg PO QAM 01/15/23 [History Confirmed 04/14/24] montelukast 10 mg tablet 10 mg PO QHS 01/15/23 [History Confirmed 04/14/24] rosuvastatin 20 mg tablet 20 mg PO QHS 01/15/23 [History Confirmed 04/14/24] indapamide 1.25 mg tablet 1.25 mg PO DAILY 12/02/23 [History Confirmed 04/14/24] acetaminophen 500 mg tablet 500 mg PO Q6HR PRN pain 04/14/24 [History Confirmed 04/14/24] albuterol sulfate 90 mcg/actuation aerosol inhaler 1 puff inhalation Q6HR PRN shortness of breath or wheezing 04/14/24 [History Confirmed 04/14/24] aspirin 81 mg tablet,delayed release (Adult Low Dose Aspirin) 81 mg PO DAILY 04/14/24 [History Confirmed 04/14/24] carvedilol 3.125 mg tablet 3.125 mg PO BID 04/14/24 [History Confirmed 04/14/24] furosemide 40 mg tablet (Lasix) 40 mg PO BID 04/14/24 [History Confirmed 04/14/24] potassium chloride 20 mEq tablet,extended release 20 meq PO BID 04/14/24 [History Confirmed 04/14/24] triamcinolone acetonide 0.1 % topical cream 1 applic topical TID 04/14/24 [History Confirmed 04/14/24] vancomycin 125 mg capsule 125 mg PO TID 04/14/24 [History Confirmed 04/14/24] Exam Physical Exam Vital Signs: Temp Pulse Resp BP Pulse Ox O2 Del Method 98.0 F 85 20 111/69 93 L Room Air 02/11/25 15:12 04/14/24 15:12 04/14/24 15:12 04/14/24 15:12 04/14/24 15:12 04/14/24 15:12 Narrative: General: Awake alert, no acute distress HEENT: head atraumatic, normocephalic, moist mucous membranes Neck: supple no masses, no lymphadenopathy CVS: regular rate and rhythm, no murmurs or gallops Respiratory: clear to auscultation bilaterally, no wheezing or crackles, symmetric expansion GI: soft, nondistended, nontender, positive bowel sounds with no organomegaly Extremity: moves all extremities, no restrictions of movements, no calf tenderness Neuro: AOx3, CN II-VII intact. Moves all extremities in all planes of motion. Skin: intact no rashes or lesions Results - Hospitalist H&P Lab Results Labs: Laboratory Last Values Corrected WBC 8.7 X10E3/uL (3.8-11.6) 04/14/24 11:51 Uncorrected WBC Count 8.7 x10E3/uL (3.8-11.6) 04/14/24 11:51 RBC 4.96 x10E6/uL (3.60-5.00) 04/14/24 11:51 Hgb 15.7 g/dL (11.8-15.4) H 04/14/24 11:51 Hct 44.5 % (34.0-46.4) 04/14/24 11:51 MCV 89.7 fl (80-100) 04/14/24 11:51 MCH 31.7 pg (24.7-34.3) 04/14/24 11:51 MCHC 35.3 g/dL (32.0-35.0) H 04/14/24 11:51 RDW 14.4 % (11.9-15.3) 04/14/24 11:51 Plt Count 208 x10E3/uL (150-450) 04/14/24 11:51 MPV 8.6 fl (6.3-10.7) 04/14/24 11:51 Neut % (Auto) 73.7 % (.) 04/14/24 11:51 Lymph % (Auto) 11.5 % (.) 04/14/24 11:51 Emmons % (Auto) 11.9 % (.) 04/14/24 11:51 Eos % (Auto) 2.3 % (.) 04/14/24 11:51 Baso % (Auto) 0.6 % (.) 04/14/24 11:51 Nucleat RBC Rel Count 0.1 /100 WBC (0-0.5) 04/14/24 11:51 Neut # (Auto) 6.4 x10E3/uL (1.8-7.7) 04/14/24 11:51 Lymph # (Auto) 1.0 x10E3/uL (1.00-4.8) 04/14/24 11:51 Emmons # (Auto) 1.0 x10E3/uL (0.0-0.8) H 04/14/24 11:51 Eos # (Auto) 0.2 x10E3/uL (0.0-0.45) 04/14/24 11:51 Baso # (Auto) 0.1 x10E3/uL (0.0-0.2) 04/14/24 11:51 Monocyte Dist Width 20.68 % (0.00-20.00) H 04/14/24 11:51 PT 10.9 Seconds (9.0-12.9) 04/14/24 11:51 INR 1.0 04/14/24 11:51 PHA Creatinine Clear 27.96 04/14/24 11:51 Sodium 130 mmol/L (136-145) L 04/14/24 11:51 Potassium 2.0 mmol/L (3.5-5.1) L* 04/14/24 11:51 Chloride 77 mmol/L (98-107) L 04/14/24 11:51 Carbon Dioxide 44.2 mmol/L (21.0-31.0) H 04/14/24 11:51 Anion Gap 10.8 mEq/L (6.0-15.0) 04/14/24 11:51 BUN 15 mg/dL (7-25) 04/14/24 11:51 Creatinine 1.70 mg/dL (0.60-1.20) H 04/14/24 11:51 Est GFR (CKD-EPI) 30.887 mL/Min 04/14/24 11:51 Glucose 117 mg/dL (70-100) H 04/14/24 11:51 Calcium 9.3 mg/dL (8.6-10.3) 04/14/24 11:51 Phosphorus 3.2 mg/dL (2.5-4.5) 04/14/24 11:51 Magnesium 2.2 mg/dL (1.9-2.7) 04/14/24 11:51 Magnesium Cancelled 04/14/24 11:51 Total Bilirubin 1.5 mg/dl (0.3-1.0) H 04/14/24 11:51 Direct Bilirubin 0.20 mg/dL (0.03-0.18) H 04/14/24 11:51 Indirect Bilirubin 1.3 mg/dL 04/14/24 11:51 AST 33 U/L (13-39) 04/14/24 11:51 ALT 17 U/L (7-52) 04/14/24 11:51 Alkaline Phosphatase 86 U/L (34-104) 04/14/24 11:51 Total Creatine Kinase 151 U/L (30-223) 04/14/24 11:51 Troponin I High Sens 81 ng/L (0-15) H* 04/14/24 11:51 B-Natriuretic Peptide 171.0 pg/mL (5-100) H 04/14/24 11:51 Total Protein 6.3 gm/dL (6.4-8.9) L 04/14/24 11:51 Albumin 3.9 gm/dL (3.5-5.7) 04/14/24 11:51 Globulin 2.4 gm/dL 04/14/24 11:51 Albumin/Globulin Ratio 1.6 04/14/24 11:51 Urine Color Colorless (Yellow) 04/14/24 14:55 Urine Appearance Clear (Clear) 04/14/24 14:55 Urine pH 7.0 (5.0-9.0) 04/14/24 14:55 Ur Specific [place] 1.006 (1.001-1.030) 04/14/24 14:55 Urine Protein Negative mg/dL (Negative) 04/14/24 14:55 Urine Glucose (UA) Normal mg/dL (Normal) 04/14/24 14:55 Urine Ketones Negative (Negative) 04/14/24 14:55 Urine Occult Blood 1+ (Negative) H 04/14/24 14:55 Urine Nitrite Negative (Negative) 04/14/24 14:55 Urine Bilirubin Negative (Negative) 04/14/24 14:55 Urine Urobilinogen Normal mg/dL (Normal) 04/14/24 14:55 Ur Leukocyte Esterase 3+ (Negative) H 04/14/24 14:55 Urine RBC 1-2 /HPF (0-4) 04/14/24 14:55 Urine WBC 1-2 /HPF (0-4) 04/14/24 14:55 Ur Squamous Epith Cells 1-2 /HPF (0-2) 04/14/24 14:55 Urine Bacteria Rare /HPF (None Seen) 04/14/24 14:55 Hyaline Casts 0-8 /LPF (0-8) 04/14/24 14:55 Urine Mucus Rare /LPF 04/14/24 14:55 Assessment & Plan Assessment/Plan (1) Dehydration: (2) Syncope: (3) Hypokalemia: (4) Hypokalemia: (5) Secondary hyperparathyroidism: (6) Hypertensive chronic kidney disease with stage 1 through stage 4 chronic kidney disease, or unspecified chronic kidney disease: (7) CKD (chronic kidney disease) stage 3, GFR 30-59 ml/min: Plan This is a 78-year-old female with significant past medical history of hypertension, hyperlipidemia,CAD status post stent placement on January 2023, hypothyroidism, morbid obesity, vitamin D deficiency, recent admission in outside hospital for subarachnoid hemorrhage and was discharged to [facility] facility from where she was sent home few days ago. 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 She presented with a chief complaints of syncope. Patient mentions that she was trying to get up from the wheelchair and shepassed out. She denies any nausea or vomiting or abdominal pain. She mentions is not having any loose stools. Lab work shows no leukocytosis, sodium of 130, potassium of 2, chloride of 77, creatinineof 1.7 troponin of 81, BNP 171 urinalysis not suggestive of UTI Chest x-ray shows no acute findings, EKG shows normal sinus rhythm with some PVC Plan: -Admit to regular nursing floor -Patient got 2 L of NS in the ED -Monitor orthostatic vitals -Hold on Lasix and indapamide -Patient got 3 bags of potassium chloride -Follow-up morning labs -Continue POA medications-Lipitor, carvedilol, Cymbalta, levothyroxine, Singulair, potassium -Patient mentions aspirin was discontinued recently after she had subarachnoid hemorrhage. Heart healthy diet -Full code IP vs OBS Justification Based on differential dx, clinical care plan, and risk of adverse events, if untreated, in my clinical judgement this patient requires an acute care setting as: INPATIENT because of an expectation ofan over 2 midnight stay. Estimated length of stay (# of days): 3 Documented By: Kb Tavares MD 04/14/241725 Signed By: 04/14/24 1738 [facility]02-11-2025 Evaluation note* Diagnosis Onset Date Resolution Status Admit Date Dehydration acute April 1:06pm Hypokalemia acute April 1:06pm Syncope acute April 14, 2024 1:06pm [facility] Work Phone: 1(713) 636-583302-11-2025 Evaluation note* Diagnosis Onset Date Resolution Status Admit Date Acute kidney injury acute Febru 2024 1:06pm CKD (chronic kidney disease) stage 3, GFR 30-59 ml/min acute April 1:06pm Dehydration acute April 1:06pm Hypertensive chronic kidney disease with stage 1 through stage 4 chronic ki acute April 14, 025 1:06pm Hypokalemia acute April 1:06pm Hyponatremia acute April 1:06pm Metabolic alkalosis acute Febr2024 1:06pm Secondary hyperparathyroidism acute April 14, 2024 1:06pm Syncope acute April 14, 2024 1:06pm [facility] Work Phone: 1(270) 920-457102-11-2025 Evaluation note* Diagnosis Onset Date Resolution Status Admit Date CKD (chronic kidney disease) stage 3, GFR 30-59 ml/min acute Februa ry 2024 1:06pm Hypertensive chronic kidney disease with stage 1 through stage 4 chronic ki acute April 1:06pm Secondary hyperparathyroidism acute April 14, 2024 1:06pm Acute kidney injury resolved Febru 2024 1:06pm Dehydration resolved April 1:06pm Hypokalemia resolved April 1:06pm Hyponatremia resolved April 1:06pm Metabolic alkalosis resolved Febru janette2024 1:06pm Syncope resolved April 14, 2024 1:06pm [facility] Work Phone: 1(596) 611-939101-03-2025 Hospital course Narrative* Parul Banks ANDRÉS Bhandari - 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 - 03/06/2024 10:47 AM EST Images from the original note were not [...] provided for review. Automated exposure control, iterative recon struction, and/or weight based adjustment of the mA/kV was utilized to reduce the radiation dose toas low as reasonably achievable.; CT of the lumbar spine was performed without the administration of intravenous contrast. Multiplanar reformatted images are provided for review. Adjustment of mA and/or kV according to patient size was utilized. Automated exposure control, iterative reconstruction,and/or weight based adjustment of the mA/kV was utilized to reduce the radiation dose to as low as reasonably achievable. COMPARISON: None HISTORY: ORDERING SYSTEM PROVIDED HISTORY: trauma TECHNOLOGIST PROVIDED HISTORY: trauma Reason for Exam: SAH (subarachnoid hemorrhage) ([facility]) FINDINGS: Chest: Med iastinum: No acute aortic abnormality identified. Calcified coronary [...] Peritoneum/Retroperitoneum: No free air. No free fluid. Theaorta is normal in caliber. The visceral branches are patent. Bones/Soft Tissues: Pelvic alignment maintained. No fracture identified. No soft tissue hematoma. Partially visualized bilateral total hip arthroplasties. *Unless otherwise specified, incidental findings do not require dedicated imaging follow-up. Thoracic: BONES/ALIGNMENT: There is normal alignment of the spine. The vertebral body heig hts are maintained. No osseous destructive lesion is [...] provided for review. Automated exposure control, iterative recon struction, and/or weight based adjustment of the mA/kV was utilized to reduce the radiation dose toas low as reasonably achievable.; CT of the lumbar spine was performed without the administration of intravenous contrast. Multiplanar reformatted images are provided for review. Adjustment of mA and/or kV according to patient size was utilized. Automated exposure control, iterative reconstruction,and/or weight based adjustment of the mA/kV was utilized to reduce the radiation dose to as low as reasonably achievable. COMPARISON: None HISTORY: ORDERING SYSTEM PROVIDED HISTORY: trauma TECHNOLOGIST PROVIDED HISTORY: trauma Reason for Exam: SAH (subarachnoid hemorrhage) ([facility]) FINDINGS: Chest: Med iastinum: No acute aortic abnormality identified. Calcified coronary [...] Peritoneum/Retroperitoneum: No free air. No free fluid. Theaorta is normal in caliber. The visceral branches are patent. Bones/Soft Tissues: Pelvic alignment maintained. No fracture identified. No soft tissue hematoma. Partially visualized bilateral total hip arthroplasties. *Unless otherwise specified, incidental findings do not require dedicated imaging follow-up. Thoracic: BONES/ALIGNMENT: There is normal alignment of the spine. The vertebral body heig hts are maintained. No osseous destructive lesion is [...] provided for review. Automated exposure control, iterative recon struction, and/or weight based adjustment of the mA/kV was utilized to reduce the radiation dose toas low as reasonably achievable.; CT of the lumbar spine was performed without the administration of intravenous contrast. Multiplanar reformatted images are provided for review. Adjustment of mA and/or kV according to patient size was utilized. Automated exposure control, iterative reconstruction,and/or weight based adjustment of the mA/kV was utilized to reduce the radiation dose to as low as reasonably achievable. COMPARISON: None HISTORY: ORDERING SYSTEM PROVIDED HISTORY: trauma TECHNOLOGIST PROVIDED HISTORY: trauma Reason for Exam: SAH (subarachnoid hemorrhage) ([facility]) FINDINGS: Chest: Med iastinum: No acute aortic abnormality identified. Calcified coronary [...] Peritoneum/Retroperitoneum: No free air. No free fluid. Theaorta is normal in caliber. The visceral branches are patent. Bones/Soft Tissues: Pelvic alignment maintained. No fracture identified. No soft tissue hematoma. Partially visualized bilateral total hip arthroplasties. *Unless otherwise specified, incidental findings do not require dedicated imaging follow-up. Thoracic: BONES/ALIGNMENT: There is normal alignment of the spine. The vertebral body heig hts are maintained. No osseous destructive lesion is [...] utilized to reduce the radiation dose to aslow as reasonably achievable. COMPARISON: 03/03/2024 HISTORY: ORDERING SYSTEM PROVIDED HISTORY: TECHNOLOGIST PROVIDED HISTORY: Reason for Exam: fall, follow up subarachnoid hemorrhage FINDINGS:BRAIN/VENTRICLES: There is persistent but improving subarachnoid hemorrhage [...] available for direct comparison. HISTORY: ORDERING SYSTEM PROVIDEDHISTORY: trauma, re eval TECHNOLOGIST PROVIDED HISTORY: trauma, [...] DISPOSITION: Skilled Facility Follow-up: Jas Maguire MD [address] [facility] [address] [facility] [address] Follow up Follow up as needed Niraj Zhou DO [address] [facility], [address] [facility] [address] Schedule an appointment as soon as possible for a visit to discuss need for restarting brilinta SIGNED: ANDRÉS Marin CNP 03/06/2024, 10:49 AM Time Spent for discharge: 35 minutes documented in this encounterBon [facility] Hospital Discharge instructions* Discharge Instr - TARYN* Bernadette Cannon RN - 03/06/2024 10:47 AM EST Continuity of Care Form Patient Name: Katarina Camara : 1945 Admit date: 03/03/2024 Discharge date: 03/06/24 Code Status Order: Full Code Advance Directives: Advance Care Flowsheet Documentation Admitting Physician: Tona Avendaño MD PCP: Hilario Gallo DO Discharging Nurse: Francie Correa RN Discharging Hospital Unit/Room#: 0106/0106-01 Discharging Unit Phone Number: [phone] Emergency Contact: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 chew., Disp: , [...] coronary artery 2. Coronary artery disease involving stony river coronary artery of [place] heart without angina pectorisFollow Up In Cardiology Lipid Panel Alanine Aminotransferase [...] 6. Morbid obesity (CMS/HCC) documented in this encounterK[facility] Work Phone: 1(959) 572-729101-30-2024 Instructions* Patient Instructions* Viktoria Terrazas LPN - 04/02/2023 9:20 AM [...] B/p check 2 weeks. documented in this encounterKettering [facility] Work Phone: 1([phone]) 935-767512-19-2023 Evaluation note* Encounter Date Diagnosis Assessment Notes Treatment Notes Treatment Clinical Notes Feb, Flu vaccine need (ICD-10 - [...] is doing Feb, Coronary artery disease involving stony river coronary artery of st[place] river heart without angina pectoris (ICD-10 - I25.10) [...] she is doing, continue to avoid NSAIDs [employer] Other 11-22-2023 Evaluation + Plan note* Assessment & Plan Note - CHINYERE Michel - 01/23/2023 12:48 PM ESTAssociated Problem(s): BMI 40.0-44.9, adult ([facility]) Reviewed the merits of healthy lifestyle choices on overall cardiovascular health. [facility] Work Phone: 1(349) 670-760611-22-2023 Evaluation + Plan note* Assessment & Plan Note - CHINYERE Michel - 01/23/2023 12:48 PM ESTAssociated Problem(s): Coronary artery disease involving st[place] river coronary artery of [place] heart with out angina pectoris Jan 17, 2023 cardiac cath (no ACS admit, outpt symptoms) Mid/distal CX PCI/Zeb 2.75/18mm complicated with o/p CX dissection IVUS guided oCX PCI/Bloomer 3.5/12mm mLAD PCI/Zeb 3/18mm [facility] Work Phone: [phone] 429-641211-22-2023 Miscellaneous Notes* Assessment & Plan Note - CHINYERE Michel - 01/23/2023 12:48 PM ESTAssociated Problem(s): BMI 40.0-44.9, adult (CMS/HCC) Reviewed the merits of healthy lifestyle choices on overall cardiovascular health. * Assessment & Plan Note - CHINYERE Michel - 01/23/2023 12:48 PM EST Associated Problem(s): Coronary artery disease involving st[place] coronary artery of [place] heart without angina pectoris Jan 17, 2023 [...] Hyperlipidemia High intensity statin documented in this [facility] Work Phone: [phone]) 607-438811-22-2023 Evaluation + Plan note* Assessment & Plan Note - CHINYERE Michel - 01/23/2023 12:45 PM ESTAssociated Problem(s): Angina pectoris (CMS/HCC) Resolved with recent coronary intervention [facility] Work Phone: [phone]) 366-904511-22-2023 Evaluation + Plan note* Assessment & Plan Note - CHINYERE Michel - 01/23/2023 12:45 PM ESTAssociated Problem(s): Essential hypertension, benign Optimal in office [facility] Work Phone: [phone]) 956-137811-22-2023 Evaluation + Plan note* Assessment & Plan Note - CHINYERE Michel - 01/23/2023 12:45 PM ESTAssociated Problem(s): Hyperlipidemia High intensity statin [facility] Work Phone: [phone]) 144-818311-21-2023 History of Present illness Narrative* CHINYERE Michel [...] recent coronary intervention Coronary artery disease involving st[place] coronary artery of [place] heart without angina pectoris Jan 17, 2023 cardiac cath (no ACS admit, outpt symptoms) Mid/distal CX PCI/Zeb 2.75/18mm complicated with o/p CX dissection IVUS guided oCX PCI/Zeb 3.5/12mm mLAD PCI/Bloomer 3/18mm BMI 40.0-44.9, adult (CMS/HCC) Reviewed the [...] Brilinta 3. Referral to Cardiac Rehab at [facility] 4. Return for follow-up; in the interim, contact the office if new symptoms arise. Dr. Calloway 6 months Jacqueline Campos MSN, 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 ASSESSOR-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, PMHNP-[facility] Please excuse any errors in grammar or translation related to this dictation. Voice recognition software was utilized to prepare this document. documented in this [facility] Work Phone: [phone]) 313-292411-21-2023 Instructions* Patient Instructions* CHINYERE Michel - 01/22/2023 [...] Brilinta 3. Referral to Cardiac Rehab at [facility] 4. Return for follow-up; in the interim, contact the office if new symptoms arise. Dr. Calloway 6 months documented in this [facility] Work Phone: 1([phone]) 361-231411-16-2023 Consult note Author W Abelardo [facility] January 17, 2023 5:50pm Note Date/Time January 17, 2023 5:51pm [facility] ENTER [address] [place] [address] Cardiology Consult Note Signed Patient: Katarina Camara MR#: [id number] : 1945 Acct:[id number] Age/Sex: 77 / F Adm Date: 3 Loc: Room: [address] [place] [address] Type: [facility] SDC Attending Dr: Nani Calloway MD Copies [...] stress testing from discussion with her primary food service assistant There is no prior history of [...] HPI Constitutional Constitutional: Reports as per HPI [facility] Medical History (Updated 01/17/23 @ [...] Code(s): I25.10 - Atherosclerotic heart disease of stony river coronary artery without angina pectoris (2) Hyperlipidemia: Code(s): E78.5 - Hyperlipidemia, unspecified (3) Hypertension: Code(s): I10 - Essential (primary) hypertension (4) Angina pectoris: Code(s): I20.9 - Angina pectoris, unspecified Documented By: Tamiko Zhou DO 01/17/23 1746 Signed By: <Electronically signed by Tamiko Zhou DO> 01/17/231749 [facility] Work Phone: [phone]) 883-125411-16-2023 Procedure [facility]11-16-2023 Procedure [facility]10-24-2023 History of Present illness Narrative* Nani Calloway MD - 12/25/2022 9:50 AM EDT Subjective Katarina Camara is a 77 y.o. female Chief Complaint Establish Care Chest pain/abnormal nuclear stress test HPI 77-year-old white female with no previous cardiac history who has history of hypertension, hyperlipidemia with no diabetes but with remote history of tobacco abuse who was admitted to [facility] in October 2022 with an episode of [...] 5. Essential hypertension, benign documented in this [facility] Work Phone: [phone]) 372-695510-24-2023 Instructions* Patient Instructions* Deborah Lee LPN - [...] time of your visit. documented in this encounterKet[facility] Work Phone: [phone]) 243-947310-09-2023 Evaluation note* Encounter Date Diagnosis Assessment Notes [...] stones. Continue to follow with urology. 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 She appears to be euvolemic. Continue current medications. Dec, Secondary hyperparathyroidism (ICD-10 - N25.81) MBD parameters are within the goal Dec, Microscopic hematuri a (ICD-10 - R31.29) She has microscopic hematuria likely due to Nephrolithiasis [employer] Other 03-30-2023 Evaluation note* Encounter Date Diagnosis [...] understanding and is agreeable to treatment plan [employer] Other 03-14-2023 NoteHNO ID: [id number] Author: Ruth Ann Gutierres PA-C Service: ? Author Type: Physician [facility] Type: Progress Notes Filed: 05/15/2022 4:24 PM [...] biopsy completed 02/2016 noted invasive ductal carcinoma ER/[place] positive, HER2 negative. : Lumpectomy completed 03/21/16 noted grade 2 invasive ductal carcinoma, DCIS grade 2, 14 mm : Margins negative (discussed with the pathologist who assured negative margins but that the anterior margin was within 1.0mm anteriorly). : [place] lymph node was positive for involvement. 06/25/16 [...] Invasive ductal carcinoma of right breast (HCC) ER/[place]+ HER2- PAST SURGICAL HISTORY Procedure Laterality Date [...] BMI 42.03 kg/m? General: (more content not included)...[facility]03-14-2023 Nurse Note* Audrey Novoa MA - 05/15/2022 3:07 PM EDT Patient states her upper right breast feels tubular and intermittent pain upper right breast could it be hormonal. She also states that night sweats do come intermittent. Aud[facility] Novoa MA [facility] History of Present illness Narrative* Ruth [...] biopsy completed 02/2016 noted invasive ductal carcinoma ER/[place] positive, HER2 negative. : Lumpectomy completed 03/21/16 noted grade 2 invasive ductal carcinoma, DCIS grade 2, 14 mm : Margins negative (discussed with the pathologist who assured negative margins but that the anterior margin was within 1.0mm anteriorly). : [place] lymph node was positive for involvement. 06/25/16 [...] Invasive ductal carcinoma of right breast (HCC) ER/[place]+ HER2- PAST SURGICAL HISTORY Procedure Laterality Date [...] ICD10: C50.311, Z17.0 Completed lumpectomy March 2016 [id number]. Reviewed different options for adjuvant chemotherapy andafter [...] Ruth Ann Gutierres PA-C [facility]* Encounter Date Diagnosis Assessment [...] understanding and is agreeable with treatment plan [employer] Other 10-05-2022 Evaluation note* Encounter Date Diagnosis [...] stones. Continue to follow with urology. 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 She appears to be euvolemic. Continue current medications. Dec, Secondary hyperparathyroidism (ICD-10 - N25.81) MBD parameters are within the goal Dec, Microscopic hematuri a (ICD-10 - R31.29) She has microscopic hematuria likely due to Nephrolithiasis [employer] Other [id number] Note [id number]12-08-2021 NoteEducation Materials POST OPERATIVE TOTAL HIP [...] can be done to rule of a DVT.[facility]2001 [facility] Clinical Discharge Summary PERSON INFORMATION Name KATARINA CAMARA Age 75 Years 1945 Sex FEMALE Language Malaysian PCP NICOLE VARGAS MD Marital Status Med Service Observation Acct# Arrival 02/06/2021 08:56:00 Visit Reason SURGERY - RIGHT TOTAL HIP Acuity LOS 002 01:34 Address: [address] [place] [address] Comment: PROVIDER INFORMATION VITALS INFORMATION Vital Sign [...] range between ( 1.3 and 2.9 ) Emmons Abs#: 0.6 x103/mcL -- Normal range between ( 0.0 and 0.8 ) Auto Baso %: 0.5 % -- Normal range between ( 0.2 and 2.0 ) Auto Emmons %: 11 % -- Normal range between [...] Instructions: [facility] PT instructions (MHAHUDGIOVANNI) Follow up: With: Address: When: Bernadine Diaz [address] [place] [address] Business (1) 12/17/2020 11:00 AM With: Address: When: NICOLE VARGAS [address] [place], [place] [id number] Business (1) DIAGNOSIS Chronic right hip pain; Other chronic pain; Primary localized osteoarthritis of right hip Comment: JOSS [facility]ENC[facility]12-06-2021 Note [id number] [facility] HospitalDis[facility] summary Author Tamiko Zhou [facility] January 18, 2023 12:54pm Note Date/Time January 18, 2023 12:50pm [facility] ENTER [address] [place] [id number] Discharge Summary Signed Patient: Katarina Camara MR#: [id number] : 1945 Acct:[id number] Age/Sex: 77 / F Adm Date: 3 Loc: Room: Attending Dr: Nani Calloway MD Copies to: Nani Calloway MD, [facility] MD Tamiko Torre, DO~ Providers Date of [...] mid LAD with 3 x 18 mm Bloomer. She developed mild right infra inguinal hematoma postoperatively, stayed overnight. CT imaging did not reveal any suprainguinal or retroperitoneal pathology, hemoglobin was stable She has been up and ambulating in the room with moderate infrainguinal ecchymosis but otherwise soft groin. She will be discharged today on current therapies to follow-up with her primary food service assistant Condition Condition at Discharge: Stable Status [...] doctor or pharmacist, without first calling the food service assistant who implanted the stent. If you [...] weight lifting, stair steppers, etc. until the food service assistant approves these activities. Check with the food service assistant on your first follow-up visit. CALL YOUR PHYSICIAN at [phone]: -If bleeding should occur from the catheter insertion site- apply pressure to the site then immediately call us. -Report any fever, redness, drainage, increased swelling, or firmness at the catheter insertion site. Some bruising or slight swelling may be present at thetime of discharge. -Should arm or leg become cold, numb, white, or blue, contact the food service assistant immediately. -IF you should experience episodes [...] is recommended. Please call Central Scheduling at [phone] to schedule your appointment.] The attending food service assistant or [facility] nurse clinician should provide you with specific instructions regarding activity, diet, medications, and further follow up for you. Follow the medication instructions provided on your discharge. If the dosages and instructions on this sheet differ from the dosage and instructions on the bottle, follow the instructions on the bottle. [facility] is not responsible for incorrect prescription [...] Tablet 325 mg PO QAM Follow Up: [facility] [Outside] - 01/22/23 10:30 am Documented By: Tamiko Zohu DO 01/18/23 1249 Signed By: <Electronically signed by Tamiko Zhou DO> 01/18/23 1560 [facility] Work Phone: Discharge summary Author Kb Chaitanya [facility] Note Date/Time April 18, 2024 11:29am [facility] ENTER [address] [place] [address] Discharge Summary Signed Patient: Katarina Camara MR#: [id number] : 1945 Acct:[id number] Age/Sex: 78 / F Adm Date: 5 Loc: Room: [address] [place] [address]: Kb Tavares MD Copies to: MD Wesley Lanza,~ Providers Date of Discharge: 04/18/24 Discharging Provider: Kb Tavares Primary Care Provider: Wesley Tena Consults: 04/14/24 16:24 Consult to Occupational Therapy Routine Comment: Physician Instructions: Consult to OT for:: Evaluation and Treat Consult to Physical Therapy Routine Comment: Physician Instructions: Consult to PT for:: Evaluation and Treat 04/15/24 09:51 Consult to Nephrology Routine Comment: Consulting Provider: Roberto Carlos Mohr Has Provider Been Notified: Yes Date of Notification: 04/15/24 Time of Notification: 09:58 Reason for Consult: Hyper/Hypo Kalemia Discharge Diagnosis (1) Acute kidney injury: (2) Hypokalemia: (3) Hyponatremia: (4) Dehydration: (5) Metabolic alkalosis: Final Diagnosis Final Discharge Diagnosis: Syncope in setting of dehydration with prerenal CELSA hyponatremia and severe hypokalemia Summary Hospital Course Hospital course: (1) Dehydration: (2) Syncope: (3) Hypokalemia: (4) Secondary hyperparathyroidism: (5) Hypertensive chronic kidney disease with stage 1 through stage 4 chronic kidney disease, or unspecified chronic kidney disease: (6) CKD (chronic kidney disease) stage 3, GFR 30-59 ml/min: This is a 78-year-old female with significant past medical history of hypertension, hyperlipidemia, CAD status post stent placement on January 2023, hypothyroidism, morbid obesity, vitamin D deficiency, recent admission in outside hospital for subarachnoid hemorrhage and was discharged to care home facility from where she was sent home few days ago. 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 She presented with a chief complaints of syncope. Patient mentions that she was trying to get up from the wheelchair and she passed out. She denies any nausea or vomiting or abdominal pain. She mentions is not having any loose stools. Lab work shows no leukocytosis, sodium of 130, potassium of 2, chloride of 77, creatinine of 1.7 troponin of 81, BNP 171 urinalysis not suggestive of UTI Chest x-ray shows no acute findings, EKG shows normal sinus rhythm with some repeat orthostatic vitals was negative. Her hypokalemia was persistent even after replacing potassium. Her repeat phosphorus was 2.1 and was replaced. Yesterday evening her potassium numbers were normal and her numbers today morning was also within normal limit. I recommend to hold on her Lasix and indapamide until results are PCP and continuerest of her medications. I also added Florastor to help improve her GI laith. She is recommended to have outpatient BMP in 3 to 5 days and follow-up with her PCP and clinical laboratory director. Condition Condition at Discharge: Stable Time Spent with Patient Time spent providing/coordinating discharge services (# min): 37 Discharge Plan Discharge Plan Patient Disposition: Senior Living Facility Prescriptions: New Saccharomyces boulardii 250 mg Capsule 250 mg PO DAILY 30 Days Qty: 30 0RF Continued alendronate 70 mg tablet 70 mg PO FR@0900 montelukast 10 mg tablet 10 mg PO QHS levothyroxine 112 mcg tablet 112 mcg PO QAM rosuvastatin 20 mg tablet 20 mg PO QHS duloxetine [Cymbalta] 60 mg capsule,delayed release(DR/EC) 60 mg PO DAILY aspirin [Adult Low Dose Aspirin] 81 mg tablet,delayed release (DR/EC) 81 mg PO DAILY acetaminophen 500 mg tablet 500 mg PO Q6HR PRN (Reason: pain) carvedilol 3.125 mg tablet 3.125 mg PO BID Rx Instructions: must administer with a meal/food triamcinolone acetonide 0.1 % cream 1 applic topical TID vancomycin 125 mg capsule 125 mg PO TID Patient Comments: through 04/15/24 albuterol sulfate 90 mcg/actuation HFA aerosol inhaler 1 puff inhalation Q6HR PRN (Reason: shortness of breath or wheezing) potassium chloride 20 mEq tablet extended release 20 meq PO BID Held furosemide [Lasix] 40 mg tablet 40 mg PO BID Hold Instructions: Resume on 04/25/24. Please hold Lasix until seen by your PCP/clinical laboratory director. indapamide 1.25 mg tablet 1.25 mg PO DAILY Hold Instructions: Resume on 04/25/24. Please hold indapamide until seen by your PCP/clinical laboratory director. Other Ambulatory Orders: Basic Metabolic Panel (Routine) Timeframe: 3 Days Location: Determined by Patient Ordered By: Kb Tavares Continuity of Care Document Health Concerns: A [facility] screening has identified you as FRAIL or AT RISK FOR FRAILTY. This puts you at a higher risk for infection, illness, falls, and other injuries. Here are four ways to help you reduce your risk of frailty: 1. IDENTIFY EARLY SIGNS OF FRAILTY ? Discuss contributing factors and concerns with your doctor 2. BE ACTIVE ? Walking and light strengthening exercises will help reduce weakness 3. EAT WELL ? Aim for three healthy meals a day that are high in protein 4. THINK POSITIVE ? Keep your mind active by being sociable and continuing to learn References: Stay Strong: Four Ways to Beat the Frailty Risk [email or web address]-[email or web address]/jwuw-jgpywp-cies- lhhj-wz-mqzq-pbg-xbiuamv-puec Exam Physical Exam Vital Signs: Temp Pulse Resp BP Pulse Ox O2 Del Method 97.7 F 81 18 131/79 96 Room Air 04/18/24 08:00 04/18/24 08:00 04/18/24 08:00 04/18/24 08:00 04/18/24 08:00 04/18/24 08:00 Narrative: General: Awake alert, no acute distress HEENT: head atraumatic, normocephalic, moist mucous membranes Neck: supple no masses, no lymphadenopathy CVS: regular rate and rhythm, no murmurs or gallops Respiratory: clear to auscultation bilaterally, no wheezing or crackles, symmetric expansion GI: soft, nondistended, nontender, positive bowel sounds with no organomegaly Extremity: moves all extremities, no restrictions of movements, no calf tenderness Neuro: AOx3, CN II-VII intact. Moves all extremities in all planes of motion. Skin: intact no rashes or lesions Diagnostic Studies Completed and Pending Studies Pending studies at discharge: 04/19/24 05:00 Complete Blood Count Auto Diff IN AM 04/20/24 05:00 Complete Blood Count Auto Diff IN AM 04/21/24 05:00 Complete Blood Count Auto Diff IN AM 04/22/24 05:00 Complete Blood Count Auto Diff IN AM 04/23/24 05:00 Complete Blood Count Auto Diff IN AM 04/24/24 05:00 Complete Blood Count Auto Diff IN AM Labs on day of discharge: 04/18/24 06:57: Corrected WBC 5.3, Uncorrected WBC Count 5.3, RBC 4.69, Hgb 14.4, Hct 43.9, MCV 93.4, MCH 30.7, MCHC 32.9, RDW 15.1, Plt Count 146 L, MPV 8.6, Neut % (Auto) 57.3, Lymph % (Auto) 24.6, Emmons % (Auto) 11.2, Eos % (Auto) 5.7, Baso % (Auto) 1.2, Nucleat RBC Rel Count 0.3, Neut # (Auto) 3.1, Lymph # (Auto) 1.3, Emmons # (Auto) 0.6, Eos # (Auto) 0.3, Baso # (Auto) 0.1, PHA Creatinine Clear 57.68, Sodium 140, Potassium 3.9, Chloride 108 H, Carbon Dioxide 22.9, Anion Gap 13.0, BUN 5 L, Creatinine 0.95, Est GFR (CKD-EPI) > 60.0, Glucose 100, Calcium 8.3 L, Total Bilirubin 1.0, AST 24, ALT 14, Alkaline Phosphatase 67, Total Protein 5.1 L, Albumin 3.2 L, Globulin 1.9, Albumin/Globulin Ratio 1.7 04/17/24 21:00: PHA Creatinine Clear 60.68, Sodium 136, Potassium 3.9, Chloride 107, Carbon Dioxide 26.6, Anion Gap 6.3, BUN 7, Creatinine 0.90, Est GFR (CKD-EPI) > 60.0, Glucose 97, Calcium 8.1 L 04/17/24 11:50: Corrected WBC 4.9, Uncorrected WBC Count 4.9, RBC 4.58, Hgb 14.2, Hct 42.5, MCV 92.7, MCH 30.9, MCHC 33.4, RDW 15.2, Plt Count 170, MPV 9.3, Neut % (Auto) 72.4, Lymph % (Auto) 16.5, Emmons % (Auto) 6.0, Eos % (Auto) 4.2, Baso % (Auto) 0.9, Nucleat RBC Rel Count 0.2, Neut # (Auto) 3.6, Lymph # (Auto) 0.8 L, Emmons # (Auto) 0.3, Eos # (Auto) 0.2, Baso # (Auto) 0.0, PHA Creatinine Clear 53.54, Sodium 138, Potassium 3.4 L, Chloride 104, Carbon Dioxide 30.3, Anion Gap 7.1, BUN 5 L, Creatinine 1.02, Est GFR (CKD-EPI) 57.015, Glucose 168 H, Calcium 8.2 L, Phosphorus 2.1 L, Total Bilirubin 1.0, AST 32, ALT 17, Alkaline Phosphatase 63, Total Protein 5.3 L, Albumin 3.3 L, Globulin 2.0, Albumin/Globulin Ratio 1.7 Documented By: Kb Tavares MD 04/18/24 1125 Signed By: <Electronically signed by Kb Tavares MD> 04/18/24 1129 [facility] Work Phone: Evaluation note* Diagnosis Malignant neoplasm of lower-inner quadrant of right breast of female, estrogen receptor positive (HCC)- Primary Breast screening Breast screening, unspecified Encounter for screening mammogram for malignant neoplasm of breast Other screening mammogram Osteopenia, unspecified location [facility] assessment information [facility] Work Phone: Evaluation note* Diagnosis Abnormal stress test Other nonspecific abnormal cardiovascular system function study Angina pectoris (CMS/HCC) Other and unspecified angina pectoris Abnormal EKG Nonspecific abnormal electrocardiogram (ECG) (EKG) Hyperlipidemia, unspecified hyperlipidemia type Essential hypertension, benign documented in this encounter [facility] Work Phone: Evaluation note* Diagnosis Coronary artery disease involving [place] coronary artery of [place] heart without angina pectoris- Primary S/P angioplasty with stent Postsurgical percutaneous transluminal coronary angioplasty status Angina pectoris (CMS/HCC) Other and unspecified angina pectoris Essential hypertension, benign Mixed hyperlipidemia BMI 40.0-44.9, adult (CMS/HCC) documented in this encounter [facility] Work Phone: Evaluation noteNo [employer] Other Evaluation note* Diagnosis Onset Date Resolution Status Angina pectoris acute ASHD (arteriosclerotic heart disease) acute Hyperlipidemia acute Hypertension acute S/P cardiac catheterization acute [facility] Work Phone: Evaluation note* Diagnosis Stented coronary artery- Primary Postsurgical percutaneous transluminal coronary angioplasty status Coronary artery disease involving [place] coronary artery of [place] heart without angina pectoris Essential hypertension, benign Mixed hyperlipidemia Abnormal stress test Other nonspecific abnormal cardiovascular system function study Morbid obesity (CMS/HCC) Morbid obesity documented in this encounter [facility] Work Phone: Evaluation note* Diagnosis Malignant neoplasm of lower-inner quadrant of right breast of female, estrogen receptor positive (HCC)- Primary Obesity, Class III, BMI 40-49.9 (morbid obesity) (HCC) Morbid obesity Breast screening Breast screening, unspecified Encounter for screening mammogram for malignant neoplasm of breast Other screening mammogram Osteopenia, unspecified location [facility]* Diagnosis Malignant neoplasm of lower-inner quadrant of right breast of female, estrogen receptor positive (HCC)- Primary [facility] Diagnosis Onset Date Resolution Status Coronary artery disease invo lving [place] coronary artery of [place] heart acute Former smoker acute Osteoporosis acute [facility] Work Phone: Evaluation note* Diagnosis Coronary artery disease involving [place] coronary artery of [place] heart without angina pectoris- Primary S/P PTCA (percutaneous transluminal coronary angioplasty) Postsurgical percutaneous transluminal coronary angioplasty status Mixed hyperlipidemia Essential hypertension, benign BMI 39.0-39.9,adult Former smoker Personal history of tobacco use, presenting hazards to health Class 2 obesity documented in this encounter [facility] Work Phone: Evaluation note* Diagnosis Onset Date Resolution Status Sinobronchitis acute Osteopenia acute [facility] Work Phone: Evaluation note* Diagnosis Onset Date Resolution Status Sinobronchitis acute Coronary artery disease invo lving [place] coronary artery of [place] heart acute Cough syncope acute Osteopenia acute Periorbital ecchymosis of left eye acute Sinobronchitis acute Cough acute [facility] Work Phone: Evaluation note* Diagnosis Onset Date Resolution Status Coronary artery disease invo lving [place] coronary artery of [place] heart acute Cough syncope acute Osteopenia acute Periorbital ecchymosis of left eye acute Sinobronchitis acute Cough acute Bilateral renal cysts acute CKD (chronic kidney disease) stage 3, GFR 30-59 ml/min acute [id number] acute Kidney stones acute Microscopic hematuria acute Secondary hyperparathyroidism acute [facility] Work Phone: Evaluation note* Diagnosis Onset Date Resolution Status Cough acute Bilateral renal cysts acute CKD (chronic kidney disease) stage 3, GFR 30-59 ml/min acute [id number] acute Hyperuricemia acute Hypokalemia acute Kidney stones acute Microscopic hematuria acute Secondary hyperparathyroidism acute Cough due to NIURKA inhibitor a cute [facility] Work Phone: Evaluation note* Diagnosis Melanocytic nevus of trunk Benign neoplasm of skin of trunk, except scrotum Lentigines Seborrheic keratosis Neoplasm of unspecified behavior of bone, soft tissue, and skin documented in [facility] encounter [facility]* Diagnosis Primary osteoarthritis of left hip- Primary History of left hip replacement Chronic pain of left knee Primary osteoarthritis of left knee documented in this encounter [facility] note* Diagnosis Subarachnoid hemorrhage (HCC)- Primary Subarachnoid [...] Coronary atherosclerosis of unspecified type of vessel, [place] or graft [facility] Onychodystrophy- Primary Other specified disease of nail Localized edema Edema Decreased pedal pulses Other symptoms involving cardiovascular system Aspirin long-term use Encounter for long-term (current) use of aspirin documented [facility] general Narrative - Reported* Type Description [...] History SEE ABOVE Hospitalization History CHILD BIRTHS [employer] Other [employer] general Narrative - Reported* Type Description Date [...] History SEE ABOVE Hospitalization History CHILD BIRTHS [employer] Other history general Narrative - Reported* Type [...] PCI Small right groin hematoma, Obesity 01/17/23-01/18/23 [employer] Other Hospital Discharge instructions Additional Instructions DISCHARGE [...] doctor or pharmacist, without first calling the food service assistant who implanted the stent. If you [...] weight lifting, stair steppers, etc. until the food service assistant approves these activities. Check with the food service assistant on your first follow-up visit. CALL YOUR PHYSICIAN at [phone]: -If bleeding should occur from the catheter insertion site- apply pressure to the site then immediately call us. -Report any fever, redness, drainage, increased swelling, or firmness at the catheter insertion site. Some bruising or slight swelling may be present at the time of discharge. -Should arm or leg become cold, numb, white, or blue, contact the food service assistant immediately. -IF you should experience episodes [...] is recommended. Please call Central Scheduling at [phone] to schedule your appointment.] The attending food service assistant or [facility] nurse clinician should provide you with specific instructions regarding activity, diet, medications, and further follow up for you. Follow the medication instructions provided on your discharge. If the dosages and instructions on this sheet differ from the dosage and instructions on the bottle, follow the instructions on the bottle. [facility] is not responsible for incorrect prescription information provided by the patient during their visit. Do not stop your medications without consulting your health care provider. Please take the list with you to your next doctor's appointment.[facility] Work Phone: Progress note Author Tamiko Zhou [facility] January 18, 2023 12:55pm Note Date/Time January 18, 2023 12:26pm [facility] ENTER [address] [place] [address] Cardiology Progress Note Signed Patient: Katarina Camara MR#: [id number] : 1945 Acct:[id number] Age/Sex: 77 / F Adm Date: 3 Loc: Room: Type: [facility] Attending Dr: Nani Calloway MD [...] stress testing from discussion with her primary food service assistant There is no prior history of [...] Code(s): I25.10 - Atherosclerotic heart disease of [place] coronary artery without angina pectoris Status: Acute [...] signed by Tamiko Zhou DO> 01/18/23 1255 [facility] Work Phone: Reason for referral (narrative)* Diagnostic Procedure Only (Routine) - Pending Review Specialty Diagnoses / Procedures Referred By Andrés t Referred To Contact [facility] Diagnoses Malignant neoplasm of lower-inner quadrant of right breast of female, estrogen receptor positive (HCC) Breast screening Encounter for screening mammogram for malignant neoplasm of breast Procedures WICHO SCREENING W BETINA SCREENING DIGITAL BREAST TOMOSYNTHESIS BI SCREENING MAMMOGRAPHY BI 2-VIEW BREAST INC Ruth Ann Douglas, MIR [address] [place] [address] [place] [address] Br Imaging [address] [place] [address] Referral ID Status Reason Start Date Expiration Date Visits Requested Visits Authorized [id number] Pending Review Auto-Generat ed Referral 05/15/2022 06/14/2023 1 1 [facility] for referral (narrative)* Consultation (Routine) - Authorized Specialty Diagnoses / Procedures Referred By Contac t Referred To Contact Cardiology Diagnoses Abnormal stress test Angina pectoris (CMS/HCC) Procedures Follow Up In Cardiology Nani Calloway MD [address] [place] [address] Nani Calloway MD [address] [place] [address] Referral ID Status Reason Start Date Expiration Date V isits Requested Visits Authorized [id number] Authorized 12/25/2022 12/25/2023 1 1 * Cardiovascular (Routine) - Pending Review Specialty Diagnoses / Procedures Referred By Contac t Referred To Contact Diagnoses Abnormal stress test Angina pectoris (CMS/HCC) Procedures ECG 12 Lead Nani Calloway MD [address] [place] [address] Referral ID Status Reason Start Date Expiration Date V isits Requested Visits Authorized [id number] Pending Review 12/25/2022 12/25/2023 1 1 [facility] Work Phone: [facility] for referral (narrative)* Consultation (Routine) - Authorized Specialty Diagnoses / Procedures Referred By Contac t Referred To Contact Cardiology Diagnoses Coronary artery disease involving [place] coronary artery of [place] heart without angina pectoris Procedures Follow Up In Cardiology Jacqueline Campos, 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 ASSESSOR-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 [address] [place] [address] Nani Calloway MD [address] [place] [address] Referral ID Status Reason Start Date Expiration Date V isits Requested Visits Authorized [id number] Authorized 01/22/2023 01/22/2024 1 1 * Consultation (Routine) - Authorized Specialty Diagnoses / Procedures Referred By Contac t Referred To Contact Cardiac Rehabilitation Diagnoses S/P angioplasty with stent Coronary artery disease involving [place] coronary artery of [place] heart without angina pectoris [facility] [address] [place] [address] Referral ID Status Reason Start Date Expiration Date Visits Requested Visits Authorized [id number] Authorized Specialty Services Required 01/22/2024 1 1 [facility] Work Phone: Reason for referral (narrative)* Consultation (Routine) - Authorized Specialty Diagnoses / Procedures Referred By Contac t Referred To Contact Cardiology Diagnoses Essential hypertension, benign Procedures Follow Up In Cardiology Nani Calloway MD [address] [place] [address] Nani Calloway MD [address] [place] [address] Referral ID Status Reason Start Date Expiration Date V isits Requested Visits Authorized [id number] Authorized 04/02/2023 04/01/2024 1 1 * Consultation (Routine) - Authorized Specialty Diagnoses / Procedures Referred By Contac t Referred To Contact Cardiology Diagnoses Coronary artery disease involving [place] coronary artery of [place] heart without angina pectoris Essential hypertension, benign Procedures Follow Up In Cardiology Nani Calloway MD [address] [place] [address] Referral ID Status Reason Start Date Expiration Date V isits Requested Visits Authorized [id number] Authorized 04/02/2023 04/01/2024 1 1 [facility] Work Phone: Reason for referral (narrative)* Diagnostic [...] BREAST INC CAD Ruth Ann Gutierres PA-C [address] [place] [address] [place] [address] [facility] Imaging [address] [place] [address] Referral ID Status Reason Start Date Expiration Date Visits Requested Visits Authorized [id number] Pending Review Auto-Generat ed Referral 04/14/2024 06/11/2024 1 1 [facility] for referral (narrative)* Consultation (Routine) - Authorized Specialty Diagnoses / Procedures Referred By Contac t Referred To Contact Cardiology Diagnoses Coronary artery disease involving [place] coronary artery of [place] heart without angina pectoris Procedures Follow Up In Cardiology [facility] [address] [address] Nani Calloway MD [address] [facility] [address] [place] [address] Referral ID Status Reason Start Date Expiration Date V isits Requested Visits Authorized [id number] Authorized 08/08/2023 08/07/2024 1 1 [facility] Work Phone: Summary Purpose Family History Relationship Condition Age at Onset Recorded Date/T [...] disorder Unknown Malignant neoplasm Unknown Advance Directives Advance Directive Response Recorded Date/ Time Advance Directives No September 05 2 12:36pm Advance Directive Response Recorded Date/ Time Advance Directives No September 05 2 11:36am Date Activated Date Inactivated Comments 03/03/2024 3:02 PM Healthcare Agents on File Name Relationship Healthcare Agent Relationshi p Communication Saundra Cunningham Child Primary Decision Maker Fawn Beverley Grandchild Secondary Decision Maker Carol Cunningham Grandchild Supplemental (Other) Leslie n Maker Chief Complaint and Reason for [...] for Visit Coronary artery dise ase involving [place] coronary artery of [place] heart Former smoker Osteoporosis Chief Complaint z13.820 m81.0 cough 4 month follow up Reason for Visit Sinobronchitis Osteopenia Chief Complaint cough 4 month follow up Ongoing cough Reason for Visit Sinobronchitis Coronary artery disease involving [place] coronary artery of [place] heart Cough syncope Osteopenia Periorbital ecchymosis of left eye Sinobronchitis Cough Chief Complaint cough 4 month follow up Ongoing cough r05.9 Reason for Visit Sinobronchitis Coronary artery disease involving [place] coronary artery of [place] heart Cough syncope Osteopenia Periorbital ecchymosis of left eye Sinobronchitis Cough Chief Complaint 4 month follow up Ongoing cough r05.9 RENAL 1 year follow up Reason for Visit Coronary artery dise ase involving [place] coronary artery of [place] heart Cough syncope Osteopenia Periorbital ecchymosis of left eye Sinobronchitis Cough Bilateral renal cysts CKD (chronic kidney disease) stage 3, GFR 30-59 ml/min [id number] Kidney stones Microscopic hematuria Secondary hyperparathyroidism Chief Complaint 4 month follow up Ongoing cough r05.9 RENAL 1 year follow up r31.9 n25.81 i12.9 q61.02 n18.30 Reason for Visit Coronary artery dise ase involving [place] coronary artery of [place] heart Cough syncope Osteopenia Periorbital ecchymosis of left eye Sinobronchitis Cough Bilateral renal cysts CKD (chronic kidney disease) stage 3, GFR 30-59 ml/min [id number] Kidney stones Microscopic hematuria Secondary hyperparathyroidism Chief Complaint Ongoing cough r05.9 RENAL 1 year follow up r31.9 n25.81 i12.9 q61.02 n18.30 1 month follow up Reason for Visit Cough Bilateral renal cysts CKD (chronic kidney disease) stage 3, GFR 30-59 ml/min [id number] Hyperuricemia Hypokalemia Kidney stones Microscopic hematuria Secondary hyperparathyroidism Cough due to NIURKA inhibitor Chief Complaint Admit Date E78.2 I10 I25.10 Z98.61 February 09 1:06pm Chief Complaint Admit Date E78.2 I10 I25.10 Z98.61 February 09 1:06pm i10 r55 m62.18 March 26, 2024 8 :00am syncopal April 14, 2024 1:06pm Reason for Visit Admit Date Dehydration April 14, 2024 1:06pm Hypokalemia April 14, 2024 1:06pm Syncope April 14, 2024 1:06pm Chief Complaint Admit Date E78.2 I10 I25.10 Z98.61 February 09 1:06pm i10 r55 m62.18 March 26, 2024 8 :00am syncopal April 14, 2024 1:06pm syncopal April 15, 2024 12:11pm Reason for Visit Admit Date Acute kidney injury April 14, 2024 1:06pm CKD (chronic kidney disease) stage 3, GF R 30-59 ml/min April 14, 2024 1:06pm Dehydration April 14, 2024 1:06pm Hypertensive chronic kidney disease with stage 1 through stage 4 chronic ki April 14, 2024 1:06pm Hypokalemia April 14, 2024 1:06pm Hyponatremia April 14, 2024 1:06pm Metabolic alkalosis April 14, 2024 1:06pm Secondary hyperparathyroidism April 042024 1:06pm Syncope April 14, 2024 1:06pm Chief Complaint Admit Date E78.2 I10 I25.10 Z98.61 February 09 1:06pm i10 r55 m62.18 March 26, 2024 8 :00am syncopal April 14, 2024 1:06pm syncopal April 15, 2024 12:11pm 110 112.9 May 01, 2024 7:47am Reason for Visit Admit Date CKD (chronic kidney disease) stage 3, GF R 30-59 ml/min April 14, 2024 1:06pm Hypertensive chronic kidney disease with stage 1 through stage 4 chronic ki April 14, 2024 1:06pm Secondary hyperparathyroidism April 042024 1:06pm Acute kidney injury April 14, 2024 1:06pm Dehydration April 14, 2024 1:06pm Hypokalemia April 14, 2024 1:06pm Hyponatremia April 14, 2024 1:06pm Metabolic alkalosis April 14, 2024 1:06pm Syncope April 14, 2024 1:06pm Chief Complaint Admit Date i10 r55 m62.18 March 26, 2024 8 :00am syncopal April 14, 2024 1:06pm syncopal April 15, 2024 12:11pm 110 112.9 May 01, 2024 7:47am Amb Documentation May 11, 2024 2:5 0pm follow up May 14, 2024 1:5 9pm Reason for Referral Specialty Diagnoses / Procedures Referred By Andrés pereyra Referred To Contact Orthopaedic Surgery Diagnoses Primary osteoarthritis of left knee Procedures L Inj/Asp: L knee Bernadine Diaz DO [address] [place] [address] Referral ID Status Reason Start Date Expiration Date V isits Requested Visits Authorized [id number] Authorized 11/27/2023 05/25/2024 1 1 Additional Source Comments INFORMATION SOURCE (unrecogn ized section and content) DATE CREATED AUTHOR 02/15/2021 [facility] DATE CREATED AUTHOR AUTHOR'S ORGANIZ ATION 06/16/2022 [facility] DATE CREATED AUTHOR AUTHOR'S ORGANIZ ATION 06/28/2022 Garibay Hormigueros [facility] DATE CREATED AUTHOR AUTHOR'S ORGANIZ ATION 11/02/2022 [facility] DATE CREATED AUTHOR AUTHOR'S ORGANIZ ATION 05/15/2023 [facility] DATE CREATED AUTHOR AUTHOR'S ORGANIZ ATION 12/01/2023 [facility] EPIC DATE CREATED AUTHOR AUTHOR'S ORGANIZ ATION 03/05/2024 [facility] DATE CREATED AUTHOR AUTHOR'S ORGANIZ ATION 03/14/2024 [facility] DATE CREATED AUTHOR AUTHOR'S ORGANIZ ATION 04/16/2024 [facility] DATE CREATED AUTHOR AUTHOR'S ORGANIZ ATION 05/08/2024 [facility] REASON FOR VISIT (unrecogniz ed section and content) Reason Comments Refill Request Reason Comments Breast Cancer 1 year follow up Reason Comments Establish Care Abnormal stress & SO B Specialty Diagnoses / Procedures Referred By Andrés pereyra Referred To Contact Diagnoses Abnormal stress test Angina pectoris (CMS/HCC) Procedures ECG 12 Lead Nani Calloway MD [address] [place] [address] Referral ID Status Reason Start Date Expiration Date V isits Requested Visits Authorized [id number] Pending Review 12/25/2022 12/25/2023 1 1 Reason Comments Follow-up [facility], d/c Specialty Diagnoses / Procedures Referred By Contac t Referred To Contact Cardiology Diagnoses S/P angioplasty with stent Procedures Follow Up In Cardiology Niraj Zhou DO [address] [place] [address] Nani Calloway MD [address] [place] [address] Referral ID Status Reason Start Date Expiration Date V isits Requested Visits Authorized [id number] Authorized 01/18/2023 01/18/2024 1 1 Reason Comments Follow-up 3 month Post-Cath Specialty Diagnoses / Procedures Referred By Contac t Referred To Contact Cardiology Diagnoses Abnormal stress test Angina pectoris (CMS/HCC) Procedures Follow Up In Cardiology Nani Calloway MD [address] [place] [address] Nani Calloway MD [address] [place] [address] Referral ID Status Reason Start Date Expiration Date V isits Requested Visits Authorized [id number] Authorized 12/25/2022 12/25/2023 1 1 Reason Comments Breast Cancer Follow up Reason Comments Lab Orders Reason Comments Follow-up 6 month Specialty Diagnoses / Procedures Referred By Contac t Referred To Contact Cardiology Diagnoses Coronary artery disease involving [place] coronary artery of [place] heart without angina pectoris Procedures Follow Up In Cardiology Jacqueline Campos, 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 ASSESSOR-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 [address] [place] [address] [facility] [facility] [address] [place] [address] Referral ID Status Reason Start Date Expiration Date V isits Requested Visits Authorized [id number] Authorized 01/22/2023 01/22/2024 1 1 Reason Comments Skin Check Reason Comments Follow-up Reason Comments Fall Specialty Diagnoses / Procedures Referred By Contac t Referred To Contact Diagnoses SAH (subarachnoid hemorrhage) (HCC) Tona Avendaño MD [address] [place] [address] [facility] [address] [place] [address] Referral ID Status Reason Start Date Expiration Date Visits Re quested Visits Authorized [id number] 1 1 Reason Comments New Patient Debridement of Nail Source Comments (unrecognize d section and content) In the event this informatio n is protected by the Federal Confidentiality of Alcohol and Drug Abuse Patient Records regulations: The Federal rules restrict any use of the information to criminally investigate or prosecute any alcohol or drug abuse patient.[facility] the event this information is protected by the Federal Confidentiality of Alcohol and Drug Abuse Patient Records regulations: The Federal rules restrict any use of the information to criminally investigate or prosecute any alcohol or drug abuse patient.[facility] the event this information is protected by the Federal Confidentiality of Alcohol and Drug Abuse Patient Records regulations: The Federal rules restrict any use of the information to criminally investigate or prosecute any alcohol or drug abuse patient.[facility] the event this information is protected by the Federal Confidentiality of Alcohol and Drug Abuse Patient Records regulations: The Federal rules restrict any use of the information to criminally investigate or prosecute any alcohol or drug abuse patient.[facility] the event this information is protected by the Federal Confidentiality of Alcohol and Drug Abuse Patient Records regulations: The Federal rules restrict any use of the information to criminally investigate or prosecute any alcohol or drug abuse patient.[facility] Care Teams (unrecognized sec tion and content) Team Status: Active Member Role Status Dates Hilario Gallo , DO Primary Care Provider Active Team Status: Active Member Role Status Dates Hilario Gallo , DO Primary Care Provider Active Star t: March 05, 2024 Clint Harrison , DO Attending Provider Active Sta rt: March 05, 2024 Team Status: Inactive Member Role Status Dates Wesley Tena DO Attending Provider Active Start: March 26, 2024 End: March 26, 2024 Team Status: Inactive Member Role Status Dates Jeremiah Rodriguez DO Emergency Provider Active Sta rt: April 14, 2024 End: April 18, 2024 Wesley Tena , DO Primary Care Provider Active Start: April 14, 2024 End: April 18, 2024 Kb Tavares MD Admit Provider, Atte nding Provider Active Start: April 14, 2024 End: April 18, 2024 Roberto Carlos Mohr MD Other Provider Active [facility]: [facility] End: April 18, 2024 Team Status: Active Member Role Status Dates Jeremiah Rodriguez , Emergency Provider Active Sta rt: April 15, 2024 Wesley Tena , DO Primary Care Provider Active Start: April 15, 2024 Kb Tavares MD Admit Provider, Other Provider Active Start: April 15, 2024 Roberto Carlos Mohr MD Attending Provider, Other Provider Active Start: April 15, 2024 Team Status: Inactive Member Role Status Dates Wesley Tena , DO Attending Provider Active Start: May 01, 2024 End: May 01, 2024 Team Status: Active Member Role Status Dates Fawn Maza LPN Attending Provider Active Start: May 11, 2024 Team Status: Inactive Member Role Status Dates Hilario Gallo DO Primary Care Provide r, Attending Provider Active Start: May 14, 2024 End: May 14, 2024 Team Status: Active Member Role Status Dates Wesley Tena DO Primary Care Provider Active Team Status: Inactive Member Role Status Dates Hilario Gallo DO Primary Care Provider Active Star t: February 10, 2024 End: February 10, 2024 Nani Calloway MD Attending Provider Active St art: February 10, 2024 End: February 10, 2024 Team Status: Active Member Role Status Dates Hilario Gallo DO Primary Care Provider Active Star t: March 05, 2024 Clint Harrison DO Attending Provider Active Sta rt: March 05, 2024 Team Status: Inactive Member Role Status Dates Wesley Tena , DO Attending Provider Active Start: March 26, 2024 End: March 26, 2024 Team Status: Active Member Role Status Dates Jeremiah Rodriguez DO Emergency Provider Active Sta rt: April 14, 2024 Wesley Tena , DO Primary Care Provider Active Start: April 14, 2024 Kb Tavares MD Admit Provider, Atte nding Provider Active Start: April 14, 2024 Anatomy Teacher Relationship Specialty Start Date End Date Sam Nicole Migueljluis [address] [place] [address] PCP - General Family Medicine 07/15/18 Anatomy Teacher Relationship Specialty Start Date End Date Sam Nicole Migueljluis [address] [place] [address] PCP - General Family Medicine 07/15/18 Team Status: Active Member Role Status Dates Nicole Vargas MD Primary Care Provider Active Team Status: Inactive Member Role Status Dates Nicole Vargas MD Primary Care Provider Active Shellie Fan , DATA COLLECTION INTERVIEWER-C Attending Provider Active Tamiko Zhou DO Referring Provider Active Anatomy Teacher Relationship Specialty Start Date End Date Nicole Vargas MD [address] [place] [address] PCP - General Family Medicine 12/25/22 Anatomy Teacher Relationship Specialty Start Date End Date Nicole Vargas MD [address] [place] [address] PCP - General Family Medicine 12/25/22 Mary Dasilva RN Care Technical Project Manager 01/18/23 Team Status: Inactive Member Role Status Dates Nicole Vargas MD Primary Care Provider Active Nani Calloway MD Attending Provider Active Anatomy Teacher Relationship Specialty Start Date End Date Nicole Vargas MD [address] [place] [address] PCP - General Family Medicine 02/05/23 Mary Dasilva, clinical massage therapistTechnical Project Manager 01/18/23 Team Status: Inactive Member Role Status [...] Inactive Member Role Status Dates Hilario Gallo , DO Attending Provider Active Start: February 19, 2023 End: February 19, 2023 Team Status: Inactive Member Role Status Dates Nicole Vargas MD Primary Care Provider Active S tart: April 16, 2023 End: April 16, 2023 Nani Calloway MD Attending Provider Active St art: April 16, 2023 End: April 16, 2023 Anatomy Teacher Relationship Specialty Start Date End Date Mast, Hilario E, DO [address] [facility] [place] [address] PCP - General Family Medicine 05/13/23 Anatomy Teacher Relationship Specialty Start Date End Date Nicole Vargas MD [address] [facility] [address] [place] [address] PCP - General Family Medicine 07/15/18 05/12/23 Mast, Hilario E, DO [address] [place] [address] PCP - General Family Medicine 05/13/23 Team Status: Active Member Role Status Dates Hilario Gallo , DO Primary Care Provider Active Team Status: Inactive Member Role Status Dates Hilario Gallo , DO Primary Care Provide r, Attending Provider Active Start: May 06, 2023 End: May 06, 2023 Team Status: Inactive Member Role Status Dates Hilario Mast , DO Primary Care Provide r, Attending Provider Active Start: June 24, 2023 End: June 24, 2023 Anatomy Teacher Relationship Specialty Start Date End Date Nicole Vargas MD [address] [place] [address] PCP - General Family Medicine 02/05/23 Team [...] 02, 2023 End: December 02, 2023 Hilario Mast , DO Primary Care Provider Active Star t: December 02, 2023 End: December 02, 2023 Team Status: Inactive Member Role Status Dates Hilario Mast , DO Primary Care Provider Active Star t: December 02, 2023 End: December 02, 2023 Jani Aguilera MD Attending Provider Active Start : December 02, 2023 End: December 02, 2023 Team Status: Inactive Member Role Status Dates Hilario Mast , DO Primary Care Provide r, Attending Provider Active Start: December 09, 2023 End: December 09, 2023 Anatomy Teacher Relationship Specialty Start Date End Date Nicole Vargas MD [address] [address] PCP - ACO Reach 07/26/22 Anatomy Teacher Relationship Specialty Start Date End Date Nicole Vargas MD [address] [facility] [address] [place] [address] PCP - ACO Reach 07/26/22 Hilario Gallo MD [address] [facility] [place] [id number] PCP - General 11/18/23 Anatomy Teacher Relationship Specialty Start Date End Date Nicole Vargas MD [address] [facility] [address] [place] [address] PCP - ACO Reach 07/26/22 Hilario Gallo MD [address] [place] [address] PCP - General 11/18/23 Anatomy Teacher Relationship Specialty Start Date End Date Nicole Vargas MD [address] [facility] [address] [place] [address] PCP - ACO Reach 07/26/22 Hilario Gallo MD [address] [place] [address] PCP - General 11/18/23 Anatomy Teacher Relationship Specialty Start Date End Date Hilario Gallo DO [address] [place] [address] PCP - General Family Medicine 03/03/24 Anatomy Teacher Relationship Specialty Start Date End Date Nicole Vargas MD [address] [address] PCP - ACO Reach 07/26/22 Hilario Gallo MD [address] [place] [address] PCP - General 11/18/23 Team Status: Inactive Member Role Status Dates Jereimah Rodriguez DO Emergency Provider Active Sta rt: April 14, 2024 End: April 18, 2024 Wesley Tena DO Primary Care Provider Active Start: April 14, 2024 End: April 18, 2024 Kb Tavares MD Admit Provider, Atte nding Provider Active Start: April 14, 2024 End: April 18, 2024 Roberto Carlos Mohr MD Other Provider Active Start: Dolores singer 2024 End: April 18, 2024 Team Status: Active Member Role Status Dates Jeremiah Rodriguez DO Emergency Provider Active Sta rt: April 15, 2024 Wesley Tena DO Primary Care Provider Active Start: April 15, 2024 Kb Tavares MD Admit Provider, Other Provider Active Start: April 15, 2024 Roberto Carlos Mohr MD Attending Provider, Other Provider Active Start: April 15, 2024 Anatomy Teacher Relationship Specialty Start Date End Date Hilario Gallo DO [address] [facility] [place] [address] PCP - General Family Medicine 05/13/23 Team Status: Inactive Member Role Status Dates Wesley Tena DO Attending Provider Active Start: May 01, 2024 End: May 01, 2024 Team Status: Active Member Role Status Dates Fawn Maza LPN Attending Provider Active Start: May 11, 2024 Team Status: Inactive Member Role Status Dates Hilario Gallo DO Primary Care Provide r, Attending Provider Active Start: May 14, 2024 End: May 14, 2024 Goals (unrecognized section and content) Goals may [...] 0946 (Given - Provider: Francie Liz RN) carvedilol (COREG) tablet 3.125 mg 3.125 mg, [...] Omalley RN) 0947 (Given - Provider: Francie Liz RN) enoxaparin Sodium (LOVENOX) injection 30 mg 30 [...] P&T Guidelines 0946 (Given - Provider: Francie Liz RN) furosemide (LASIX) tablet 40 mg 40 mg, Oral, 2 TIMES DAILY, First dose on Sat03/03/24 at 2100, Until Discontinued 0750 (Given - Provider: Ольга Kee RN)0757 (Held by provider - Provider: Johny Ricks MD - Reason: Other)1730 (Automatically Held - Provider: Johny Ricks MD) 0800 (Automatically Held - Provider: Johny Ricks MD)0958 (Unheld by provider - Provider: Maria E Sweeney APRN - 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)1641 (Given - Provider: Tanya Higgins RN) [...] Harris RN) 0624 (Given - Provider: Ольга Oliveros RN) 0950 (Given - Provider: Francie Liz RN) montelukast (SINGULAIR) tablet 10 mg 10 mg, Oral, NIGHTLY, First dose on Sat03/03/24 at 2100, Until Discontinued 2099 (Given - Provider: Ольга Oliveros RN) 2129 (Given - Provider: Maria Isabel Harris, YADIEL) 2099 (Due) polyethylene glycol (GLYCOLAX) packet 17 g 17 g, Oral, DAILY, First dose on Sat03/03/24 at 1630, Until Discontinued, Stir and dissolve one packet of powder (17 g) in any 4 to 8 ounces of beverage (cold, hot or room temperature) then drink 0854 (Not Given - Provider: Ольга Kee RN - Reason: Patient/family refused) 075 (Given - Provider: Shayla Omalley RN) 0951 [...] separately. 0847 (Given - Provider: Ольга Kee RN)2099 (Given - Provider: Ольга Oliveros RN) 755 (Given - Provider: Shayla Omalley RN)2129 (Given - Provider: Maria Isabel Harris, YADIEL) rosuvastatin (CRESTOR) tablet 20 mg 20 mg, Oral, DAILY, First dose on Sat03/03/24 at 2100, Until Discontinued 749 (Given - Provider: Ольга Kee RN) 0756 (Given - Provider: Shayla Omalley RN) 0961 (Given - Provider: Francie Liz RN) sodium [...] Ольга Kee RN - Reason: IV Fluid Infusing)2101 (Given - Provider: Ольга Oliveros RN) 0755 (Given - Provider: Shayla Omalley RN) ticagrelor [...] Sat03/03/24 at 1612, Until Discontinued, Nausea, Vomiting Or [...] BE BASED ON THE PRIMARY CLINICAL RECORDS. [facility] [employer] [facility]. provides no warranty or guarantee of the accuracy or completeness of information in this document.
[2024-06-03 20:01] VITALS: PULSE 89
[2024-06-03] MEDS: ATORVASTATIN CALCIUM 20 MG TABLET PO (21:25)
[2024-06-03] MEDS: CARVEDILOL 3.125 MG TABLET PO (21:25)
[2024-06-03 22:13] VITALS: PULSE 81
[2024-06-03 23:08] VITALS: BP 95/61; PULSE 80; TEMP 36.9; O2SAT 90
[2024-06-04] VITALS (11 sets, daily range): BP systolic 102–137; BP diastolic 56–72; PULSE 68–83; TEMP 36.6; O2SAT 92–94
[2024-06-04 06:26] LABS: Hematocrit 40.6 % (36.0-48.0); Hemoglobin 13.4 g/dL (12.0-16.0); Mean Corpuscular Hemoglobin 30.1 pg (26.7-34.0); Mean Corpuscular Volume 91.2 fL (81.0-99.0); Mean Platelet Volume 10.3 fL (9.5-13.5); Platelet Count 218 10^3/uL (150-450); Red Blood Count 4.45 10^6/uL (4.20-5.40); Red Cell Distribution Width 13.6 % (11.0-15.0); White Blood Count 5.5 10^3/uL (4.0-11.0)
[2024-06-04 06:52] LABS: Alanine Aminotransferase 14 U/L (14-59); Albumin Level 3.1 g/dL (3.4-5.0); Alkaline Phosphatase 78 U/L (46-116); Anion Gap 10.3; Aspartate Amino Transferase 17 U/L (15-37); BUN Creatinine Ratio 13.6; Bilirubin Total 0.7 mg/dL (0.2-1.0); Calcium 8.9 mg/dL (8.5-10.1); Carbon Dioxide 34.2 mmol/L (21.0-32.0); Chloride 100 mmol/L (98-107); Estimated GFR (African America 58 (>=60 mL/min/1.73m^2); Estimated GFR (Non-African Ame 48 (>=60 mL/min/1.73m^2); Glucose 114 mg/dL (74-106); Sodium 142 mmol/L (136-145); Total Protein 6.1 g/dL (6.4-8.2)
[2024-06-04 06:57] LABS: Potassium 2.5 mmol/L (3.5-5.1)
[2024-06-04] MEDS: POTASSIUM CHLORIDE 40 MEQ in 0.9 % SODIUM CHLORIDE 250 ML 67.5 MEQ IV (09:03)
[2024-06-04] MEDS: ASPIRIN 81 MG TAB.CHEW PO (09:31)
[2024-06-04] MEDS: ATORVASTATIN CALCIUM 40 MG TABLET PO (09:31)
[2024-06-04] MEDS: CARVEDILOL 6.25 MG TABLET 3.125 MG PO (09:32)
[2024-06-04] MEDS: LEVOTHYROXINE SODIUM 112 MCG TABLET PO (09:33)
[2024-06-04] MEDS: DULOXETINE HCL 60 MG CAPSULE.DR PO (09:33)
[2024-06-04] MEDS: FUROSEMIDE 40 MG TABLET PO (09:33)
[2024-06-04] MEDS: POTASSIUM CHLORIDE 10 MEQ ER TABLET 20 MEQ PO (09:33)
[2024-06-04] MEDS: SPIRONOLACTONE 25 MG TABLET PO (09:34)
--- NOTE | 2024-06-04 11:27 | CM.NOTE ---
Rounds made with Dr. Foley, pt will receive another dose of IV potassium and recheck potassium this afternoon. Pt possible discharge this afternoon depending on potassium level. Dr. Foley discussed medication change at discharge.
--- NOTE | 2024-06-04 11:37 | PM.HP ---
HPI H&P: HPI History of Present Illness Chief complaint: Hypokalemia Narrative: 78 y/o female directed to ER for low potassium. Problems with low potassium since March. History of CKD related to ibuprofen use and follows with nephrology. Takes both lasix and indapamide for edema along with oral potassium. Outpatient labs showed potassium 2.6 and directed to ER. Patient felt well and no symptoms. In ER repeat labs showed potassium 2.2. Discussed with nephrology who recommended admission for monitoring due to low potassium and admitted. Given IV potassium. Stopped indapamide and added aldactone. Feels well this am but potassium remains low at 2.6. Opioid HPI Opioid Management Most Recent Pain and Opioid Data: Last Pain Scale 6 03/03/24 12:33 03/03/24 Last Pain Assessment 06/04/24 14:00 Last ORT Total Score 3 06/03/24 18:51 06/03/24 Last ORT Risk Category Low Risk 06/03/24 18:51 06/03/24 Review of Systems ROS Constitutional Denies: fever, chills or fatigue Cardiovascular Denies: chest pain, palpitations or edema Respiratory Denies: shortness of breath, cough or wheezing Gastrointestinal Denies: abdominal pain, nausea, vomiting or diarrhea Genitourinary Denies: painful urination PFSH [facility] Medical History (Updated 06/04/24 @ 09:55 by Justin Foley MD) Chronic kidney disease ?N18.9 - Chronic kidney disease, unspecified (ICD-10) Leg edema ?R60.0 - Localized edema (ICD-10) Subarachnoid hemorrhage ?I60.9 - Nontraumatic subarachnoid hemorrhage, unspecified (ICD-10) Breast cancer ?C50.919 - Malignant neoplasm of unspecified site of unspecified female breast (ICD-10) Breast cancer ?C50.919 - Malignant neoplasm of unspecified site of unspecified female breast (ICD-10) Hyponatremia ?E87.1 - Hypo-osmolality and hyponatremia (ICD-10) Hypokalemia ?E87.6 - Hypokalemia (ICD-10) Hypochloremia ?E87.8 - Other disorders of electrolyte and fluid balance, not elsewhere classified (ICD-10) Diarrhea ?R19.7 - Diarrhea, unspecified (ICD-10) Fracture, nasal ?S02.2XXA - Fracture of nasal bones, initial encounter for closed fracture (ICD-10) Rhabdomyolysis ?M62.82 - Rhabdomyolysis (ICD-10) Syncope ?R55 - Syncope and collapse (ICD-10) Hyperlipidemia ?E78.5 - Hyperlipidemia, unspecified (ICD-10) Malignant neoplasm of right breast ?C50.911 - Malignant neoplasm of unspecified site of right female breast (ICD-10) Hypothyroidism ?E03.9 - Hypothyroidism, unspecified (ICD-10) Fibromyalgia ?M79.7 - Fibromyalgia (ICD-10) Surgical History (Updated 06/03/24 @ 17:38 by Bonnie Mcgovern RN) H/O heart artery stent ?Z95.5 - Presence of coronary angioplasty implant and graft (ICD-10) H/O: hysterectomy ?Z90.710 - Acquired absence of both cervix and uterus (ICD-10) History of oophorectomy Presence of left artificial hip joint ?Z96.642 - Presence of left artificial hip joint (ICD-10) Social History Within the past year, how often did you have a drink containing alcohol: never Score interpretation: A score less than 3 is consistent with normal alcohol consumption. Smoking status: Former smoker Non-prescribed substance use: denies use Previous occupational history: retired Highest level of school completed/degree received: GED or equivalent Little interest or pleasure in doing things: not at all Feeling down, depressed, or hopeless: not at all Feel stressed/tense/nervous/anxious/difficulty sleeping: not at all Do you think of yourself as: straight/heterosexual Gender Identity: female Meds Home Medications and Allergies Home Medications ?Medication ?Instructions ?Recorded ?Confirmed ?Type acetaminophen 500 mg capsule 500 mg PO Q6H PRN fever or pain 03/03/24 06/03/24 History carvedilol 6.25 mg tablet 3.125 mg PO Q12H 03/03/24 06/03/24 History duloxetine 60 mg capsule,delayed 60 mg PO DAILY 03/03/24 06/03/24 History release levothyroxine 112 mcg tablet 112 mcg PO DAILY 03/03/24 06/03/24 History montelukast 10 mg tablet 10 mg PO DAILY 03/03/24 06/03/24 History potassium chloride 20 mEq 20 meq PO QDAY 03/03/24 06/03/24 History tablet,extended release rosuvastatin 20 mg tablet 20 mg PO .hs 03/03/24 06/03/24 History aspirin 81 mg capsule 81 mg PO DAILY 03/16/24 06/03/24 History furosemide 40 mg tablet 40 mg PO QDAY edema 03/16/24 06/03/24 History albuterol sulfate 90 mcg/actuation 1 puff inhalation Q6H PRN 03/17/24 06/03/24 History aerosol inhaler shortness of breath or wheezing spironolactone 25 mg tablet 25 mg PO QD #30 tabs 06/04/24 Rx Allergies Allergy/AdvReac Type Severity Reaction Status Date / Time pregabalin (From Lyrica) Allergy Severe Confusion Verified 06/03/24 16:08 ibuprofen Allergy CKD Verified 06/03/24 16:08 Exam Constitutional Vital Signs, click to edit/add: Last Vital Signs Temp 97.8 F 06/04/24 03:08 Pulse 77 06/04/24 11:30 Resp 18 06/04/24 11:30 BP 137/72 06/04/24 11:30 Pulse Ox 93 L 06/04/24 11:30 O2 Del Method Room Air 06/04/24 08:00 Documenting provider has reviewed patient's vital signs: yes Common normals: no apparent distress, oriented x3 and alert HENMT Common normals: normocephalic Eye Common normals: PERRL and EOMs intact bilaterally Respiratory Common normals: normal respiratory effort and clear to auscultation bilaterally Cardio Common normals: regular rate, regular rhythm, no gallops, no murmurs and no rub GI Common normals: Normal to inspection, nondistended, normoactive bowel sounds present and non-tender Extremity Common normals: no pedal edema Results Labs Labs: Short CBC 06/03/24 06/04/24 Range/Units 16:30 06:03 WBC 6.7 5.5 (4.0-11.0) 10^3/uL Hgb 14.1 13.4 (12.0-16.0) g/dL Hct 42.0 40.6 (36.0-48.0) % Plt Count 255 218 (150-450) 10^3/uL BMP 06/03/24 06/04/24 16:30 06:03 Sodium 137 142 Potassium 2.2 L* 2.5 L* Chloride 96 L 100 Carbon Dioxide 35.7 H 34.2 H BUN 17.0 15.0 Creatinine 1.32 H 1.10 H Glucose 156 H 114 H Calcium 9.1 8.9 Liver Function 06/03/24 06/04/24 Range/Units 16:30 06:03 Total Bilirubin 0.8 0.7 (0.2-1.0) mg/dL AST 19 17 (15-37) U/L ALT 18 14 (14-59) U/L Alkaline Phosphatase 90 78 (46-116) U/L Albumin 3.3 L 3.1 L (3.4-5.0) g/dL Urine 06/03/24 Range/Units 17:49 Urine Color Lt. yellow (YELLOW) Urine Clarity Clear (CLEAR) Urine pH 7.0 (5.0-9.0) Ur Specific [place] 1.010 (1.005-1.025) Urine Protein Negative (NEG/TRACE) mg/dL Urine Glucose (UA) Negative (NEGATIVE) mg/dL Assessment and Plan Assessment and Plan (1) Acute hypokalemia: (2) CKD stage 3a, GFR 45-59 ml/min: (3) Primary hypertension: (4) CAD (coronary artery disease), [place] coronary artery: Plan Presented with low potassium most likely related to taking 2 loop diuretics. Stopped indapamide and started on aldactone. Repeat potassium low and given additional 40 mg IV along with scheduled PO potassium. Repeat potassium improved at 3.2. Discharge home. Continue aldactone and lasix. Continue oral potassium. Follow up with PCP in 1-2 weeks.
--- NOTE | 2024-06-04 11:58 | SWNOTE1 ---
Medicare Outpatient Observation Notice reviewed and discussed with patient. Pt. verbalized understanding and signed the form. Original given to patient and copy placed in patient?s chart.
--- NOTE | 2024-06-04 11:58 | SWNOTE1 ---
SW met with pt to discuss dc needs. Pt lives at home alone. Pt uses a cane at home. Pt still drives, cooks, cleans, etc. Pt does not have any services coming in at this time. Pt is hopeful to go home later today if all work comes back alright. Pt voiced he grand-daughter helps as needed. Pt has no anticipated discharge needs. SW to follow as needed. Pt did ask about assistance cleaning/de-cluttering her home. SW to provide pt with private healthcare architect list.
[2024-06-04 14:17] LABS: Anion Gap 10.5; BUN Creatinine Ratio 13.9; Carbon Dioxide 32.7 mmol/L (21.0-32.0); Chloride 98 mmol/L (98-107); Estimated GFR (African America 60 (>=60 mL/min/1.73m^2); Estimated GFR (Non-African Ame 49 (>=60 mL/min/1.73m^2); Glucose 131 mg/dL (74-106); Potassium 3.2 mmol/L (3.5-5.1); Sodium 138 mmol/L (136-145)
--- NOTE | 2024-06-08 15:19 | CM.DCFOLLOWU ---
Person spoke with: Katarina How are you feeling? Much better How is your pain? No pain Did you understand your discharge instructions? Yes Do you have any questions about your discharge instructions? No Were you given any prescriptions at discharge? Yes Were you able to get your prescriptions filled? They did not have medication available until Sat Do you understand how to take your medications as ordered? Yes Do you have any questions about your follow up appointment and do you plan to keep your follow up appointment? No they are scheduled Is there anything else that you would like to discuss? No Questions/Comments/Concerns/Other:
== END 2024-06-04 17:12 | disposition home or self-care (01) ==
LOC: ER 17:23 → MS 18:49
PROVIDERS: Physician Assistant; Admitting Provider Family Medicine; Emergency Provider Emergency Medicine; PCP Family Medicine; Visit Provider Family Medicine
DX: E87.6 Hypokalemia (principal); I12.9 Hypertensive chronic kidney disease with stage 1 through stage 4 chronic kidney disease, or unspecified chronic kidney disease; N18.31 Chronic kidney disease, stage 3a; Z12.31 Encounter for screening mammogram for malignant neoplasm of breast; E66.01 Morbid (severe) obesity due to excess calories; C50.311 Malignant neoplasm of lower-inner quadrant of right female breast; I25.10 Atherosclerotic heart disease of native coronary artery without angina pectoris; Z17.0 Estrogen receptor positive status [ER+]; M85.80 Other specified disorders of bone density and structure, unspecified site; Z79.899 Other long term (current) drug therapy; R42 Dizziness and giddiness; Z96.642 Presence of left artificial hip joint; Z87.891 Personal history of nicotine dependence; Z95.5 Presence of coronary angioplasty implant and graft; Z90.710 Acquired absence of both cervix and uterus; Z68.39 Body mass index [BMI] 39.0-39.9, adult
CPT/HCPCS: 36415; 71045; 77063; 77067; 80048; 80053; 81001; 83735; 84484; 85025; 85027; 93005; 96365; 96366; 99285; G0378; J3480